=== PATIENT | female | born 1950 | race Caucasian/White ===

== ENCOUNTER → 2017-03-16 | Outpatient (CLI) | payer MEDICARE ==
--- NOTE | 2017-03-16 10:30 | BD ---
EXAMINATION TYPE: MG DEXA axial skeleton. DATE OF EXAM: 03/16/2017 CLINICAL HISTORY: Postmenopausal female, Z 78.0 Height: 63 Weight: 213 FRAX RISK QUESTIONS: Alcohol (3 or more units per day): no Family History (Parent hip fracture): no Glucocorticoids (More than 3mos): yes (Ex: prednisone, prednisolone, methylprednisolone, dexamethasone, and hydrocortisone). History of Fracture in Adulthood: November 2015 Secondary Osteoporosis: 1. Type 1 Diabetes: no, Type 2 2. Hyperthyroidism: no 3. Menopause before 45: total hysterectomy age 44 4. Malnutrition: no 5. Chronic liver disease: no Rheumatoid Arthritis: no Current Tobacco Use: no RISK FACTORS HISTORY OF: Family History of Osteoporosis: none known Active: yes Diet low in dairy products/other sources of calcium: at least one serving a day Postmenopausal woman: yes Take estrogen and/or progesterone medications: not now How long: age 22 hormonal contraceptives about 6 months Lost more than 2 inches in height since high school: no Frequent falls: yes Poor Health: unsure Hyperparathyroidism: no Adrenal Insufficiency: unsure MEDICATIONS: Prednisone or other steroids: yes How Long: about 4 years Thyroid Medications: yes Which medication: Synthroid How Long: since about age [age] Osteoporosis Medications: no Additional Medications: insulin pump; Ventolin inhaler, Symbicort, Losartan Additional History: right hip pain, type 2 diabetes, hypothyroid, kidney function at 46% Lumbar bulging discs, sciatica, open heart & triple bypass 2012 EXAM MEASUREMENTS: Bone mineral densitometry was performed using the [employer]. Bone mineral density as measured about the Lumbar spine is: ----- L1-L4(G/cm2): 1.470 T Score Values are as follows: ----- L2: 2.0 ----- L3: 2.5 ----- L4: 2.9 ----- L1-L4: 2.4 Bone mineral density not previously done at this facility; previously done at a physician office Bone mineral density about the R hip (g/cm2): 1.167 Bone mineral density about the L hip (g/cm2): 1.166 T Score values are as follows: -----R Neck: 0.9 -----L Neck: 0.9 -----R Total: 1.7 -----L Total: 2.0 Bone mineral density not previously done at this facility; previously done at a physician office IMPRESSION: Normal bone density NOTE: T-SCORE=SD OF THE YOUNG ADULT MEAN.
--- NOTE | 2017-03-17 09:54 | MM ---
Reason for exam: screening (asymptomatic). Last mammogram was performed 1 year and 2 months ago. History: Patient is postmenopausal. Family history of breast cancer in 2 maternal cousins. Took hormonal contraceptives for 6 months beginning at age 22. Physical Findings: A clinical breast exam by your physician is recommended on an annual basis and results should be correlated with mammographic findings. MG 3D Screening Mammo W/Cad Bilateral CC and MLO view(s) were taken. Prior study comparison: January 23, 2016, bilateral MG 3d screening mammo w/cad. March 06, 2013, bilateral digital screening mammo w/CAD. There are scattered fibroglandular densities. No significant changes when compared with prior studies. ASSESSMENT: Benign, BI-RAD 2 RECOMMENDATION: Routine screening mammogram of both breasts in 1 year.
== END | disposition home or self-care (01) ==
LOC: RADMAMWWP 07:35
PROVIDERS: ATTEND Family Medicine
DX: Z12.31 Encounter for screening mammogram for malignant neoplasm of breast (principal); M89.9 Disorder of bone, unspecified; Z78.0 Asymptomatic menopausal state
CPT/HCPCS: 77080; 77063; G0202

== ENCOUNTER 2017-03-30 07:25 | Day surgery (SDC) | payer MEDICARE ==
[2017-03-29 11:32] VITALS: BMI 37.5
[~2017-03-30 07:25] MED LIST: LACTATED RINGERS 1,000 ML IV SCH; LIDOCAINE 1% 20 ML VIAL (10MG/ML) FOR IV START INTRADERMA PRN
[2017-03-30 08:13] VITALS: RESP 16; TEMP 98.1
[2017-03-30] MEDS ORDERED: LIDOCAINE 1% 20 ML VIAL (10MG/ML) FOR IV START INTRADERMA ONE (08:46)
[2017-03-30 08:48] LABS: Glucose,Whole Blood 113 mg/dL (75-99)
[2017-03-30] MEDS ORDERED: GLUCAGON 1 MG/ML VIAL ONE (08:48)
[2017-03-30] MEDS ORDERED: PROPOFOL 10 MG/ML 20 ML VIAL IV ONE (08:48)
--- NOTE | 2017-03-30 09:22 | P.OP ---
Date of Procedure: 03/30/17 Preoperative Diagnosis: Abdominal pain Postoperative Diagnosis: Same Procedure(s) Performed: Colonoscopy Anesthesia: MAC Surgeon: Rosetta Krishna Estimated Blood Loss (ml): 0 IV fluids (ml): 300 Pathology: none sent Condition: stable Disposition: PACU Indications for Procedure: Abdominal pain Operative Findings: Normal colonoscopy Description of Procedure: Patient was taken to the endoscopy suite and following sedation rectal exam was performed. Patient was noted to have good sphincter tone no masses. Colonoscope was passed through the anus into the rectum. Was passed through the sigmoid colon up to the splenic flexure and into the transverse colon. At approximately 1 mm the scope was noted to be unresponsive to manipulation angulation, indicating that an internal cable was defective. Therefore the scope was withdrawn and the procedure was instituted. A second colonoscope was brought and the scope was introduced through the anus into the rectum. Was advanced through the sigmoid colon up to the splenic flexure transverse colon hepatic flexure right colon down to the area of the cecum. Proximally 6 minutes were taken to withdraw the scope. Circumdential observation mucosa did not reveal any lesions of concern in the cecum or right colon. No lesions of concern were noted in the the transverse colon. No lesions of concern in the left colon or sigmoid colon. Scope was brought down to the rectum where it was retroflexed and small internal hemorrhoidal tissue identified but no lesions of concern. Impression/plan: 1. Normal colonoscopy Plan: 1. Repeat scope 7-10 years 2. Patient is going to undergo an EGD with Dr. Mi
--- NOTE | 2017-03-30 09:24 | P.DS ---
Providers Attending physician: Rosetta Krishna Primary care physician: Renata Burgess Plan - Discharge Summary New Discharge Prescriptions: No Action Budesonide-Formot 160-4.5 Mcg [Symbicort 160-4.5 Mcg Inhaler] 2 puff INHALATION BID PRN PRN Reason: Shortness Of Breath Nitroglycerin Sl Tabs [Nitrostat] 0.4 mg SUBLINGUAL Q5M PRN PRN Reason: Chest Pain Insulin Aspart [NovoLOG] 0 units SQ-PUMP CONTINUOUS metFORMIN HCL [Glucophage] 500 mg PO BID fluvoxaMINE MALEATE [Luvox] 300 mg PO HS busPIRone HCL [Buspar] 15 mg PO HS Losartan [Cozaar] 50 mg PO HS Carvedilol [Coreg] 12.5 mg PO BID Furosemide [Lasix] 20 mg PO DAILY Rosuvastatin Calcium [Crestor] 20 mg PO HS Montelukast [Singulair] 10 mg PO DAILY Ezetimibe [Zetia] 10 mg PO DAILY Aspirin [Adult Low Dose Aspirin EC] 162 mg PO BID Albuterol Inhaler [Ventolin Hfa Inhaler] 2 puff INHALATION Q4-6H PRN PRN Reason: sob buPROPion SR [Wellbutrin Sr] 150 mg PO BID busPIRone HCL 30 mg PO QAM Ergocalciferol [Vitamin D2] 50,000 unit PO PRUITT Levothyroxine Sodium [Synthroid] 175 mcg PO QAM traMADol HCL [Ultram] 100 mg PO TID PRN PRN Reason: Pain Acetaminophen [Tylenol Extra Strength] 1,000 mg PO DIRECTED PRN PRN Reason: Pain Discharge Medication List Aspirin [Adult Low Dose Aspirin EC] 162 mg PO BID 12/27/15 [History] Budesonide-Formot 160-4.5 Mcg [Symbicort 160-4.5 Mcg Inhaler] 2 puff INHALATION BID PRN 12/27/15 [History] Carvedilol [Coreg] 12.5 mg PO BID 12/27/15 [History] Ezetimibe [Zetia] 10 mg PO DAILY 12/27/15 [History] Furosemide [Lasix] 20 mg PO DAILY 12/27/15 [History] Insulin Aspart [NovoLOG] 0 units SQ-PUMP CONTINUOUS 12/27/15 [History] Losartan [Cozaar] 50 mg PO HS 12/27/15 [History] Montelukast [Singulair] 10 mg PO DAILY 12/27/15 [History] Nitroglycerin Sl Tabs [Nitrostat] 0.4 mg SUBLINGUAL Q5M PRN 12/27/15 [History] Rosuvastatin Calcium [Crestor] 20 mg PO HS 12/27/15 [History] busPIRone HCL [Buspar] 15 mg PO HS 12/27/15 [History] fluvoxaMINE MALEATE [Luvox] 300 mg PO HS 12/27/15 [History] metFORMIN HCL [Glucophage] 500 mg PO BID 12/27/15 [History] Acetaminophen [Tylenol Extra Strength] 1,000 mg PO DIRECTED PRN 03/29/17 [ History] Albuterol Inhaler [Ventolin Hfa Inhaler] 2 puff INHALATION Q4-6H PRN 03/29/17 [ History] Ergocalciferol [Vitamin D2] 50,000 unit PO PRUITT 03/29/17 [History] Levothyroxine Sodium [Synthroid] 175 mcg PO QAM 03/29/17 [History] buPROPion SR [Wellbutrin Sr] 150 mg PO BID 03/29/17 [History] busPIRone HCL 30 mg PO QAM 03/29/17 [History] traMADol HCL [Ultram] 100 mg PO TID PRN 03/29/17 [History] Follow up Appointment(s)/Referral(s): Rosetta Krishna MD [STAFF PHYSICIAN] - 1 Week Patient Instructions/Handouts: *[facility] - (Anesthesia) Endoscopy Discharge Instructions, Colonoscopy (DC), Upper Endoscopy (DC) Discharge Disposition: HOME SELF-CARE
[2017-03-30 09:40] VITALS: BP 146/68
[2017-03-30 09:52] LABS: Glucose,Whole Blood 193 mg/dL (75-99)
[2017-03-30 10:00] VITALS: PULSE 56
--- NOTE | 2017-03-30 20:57 | P.PCN ---
Date of Procedure: 03/30/17 Procedure(s) Performed: Procedure: Esophagogastroduodenoscopy and biopsy. Preoperative diagnosis: Abdominal pain. Postoperative diagnosis: 1. Very small sliding hiatal hernia with no obvious esophagitis or complicated reflux disease. 2. Mild antral gastritis. 3. Multiple biopsies obtained from the duodenum, antrum and esophagus. Preparation sedation: Was provided by anesthesia. Brief clinical history: The patient is a 66-year-old female who is scheduled for an upper endoscopy and colonoscopy today for workup of abdominal pain. Dr. Krishna performed colonoscopy earlier. This evaluation is to rule out peptic ulcer disease, complicated reflux disease or other pathology. Procedure: With the patient on her left lateral decubitus position and after informed consent and adequate sedation, I passed a Olympus-GIF 160 video upper endoscope through the cricopharyngeus down the esophagus. GE junction was around 36 cm from the incisors and there was a very small sliding hiatal hernia but no obvious esophagitis or complicated reflux disease. The endoscope was then passed into the stomach which was insufflated with air and inspected in detail including the retroflex view in the cardia. There was minimal mottling and erythema in the antrum but no ulcers or erosions. Pyloric channel, duodenal bulb, post bulbar area and descending duodenum appeared within normal limits. Because of her symptoms, I obtained biopsies from the duodenum, antrum and esophagus then the endoscope was withdrawn. The patient tolerated the procedure well. Plan: The patient was reassured and I discussed with her . Will await biopsy results. She will follow-up with you as planned and would be happy to see in the future if needed.
== END 2017-03-30 10:32 | disposition home or self-care (01) ==
LOC: ORWHC2ENDO 07:25
PROVIDERS: ATTEND Surgery
DX: K29.50 Unspecified chronic gastritis without bleeding (principal); K44.9 Diaphragmatic hernia without obstruction or gangrene; K64.8 Other hemorrhoids; Z79.899 Other long term (current) drug therapy; Z88.3 Allergy status to other anti-infective agents; Z88.2 Allergy status to sulfonamides; I25.2 Old myocardial infarction; I10 Essential (primary) hypertension; E78.5 Hyperlipidemia, unspecified; Z95.810 Presence of automatic (implantable) cardiac defibrillator; I25.10 Atherosclerotic heart disease of native coronary artery without angina pectoris; I47.1 Supraventricular tachycardia; E11.9 Type 2 diabetes mellitus without complications; Z79.4 Long term (current) use of insulin; Z96.41 Presence of insulin pump (external) (internal); Z79.82 Long term (current) use of aspirin; K21.0 Gastro-esophageal reflux disease with esophagitis
CPT/HCPCS: 88305; 88342; 45378; 43239; J1610; J2704

== ENCOUNTER 2018-01-10 14:33 | Inpatient (IN) | payer MEDICARE ==
[2018-01-10 15:09] LABS: Basophils % (A) 0 %; Eosinophils # (A) 0.1 k/uL (0-0.7); Eosinophils % (A) 2 %; HCT 40.8 % (34.0-46.0); HGB 13.9 gm/dL (11.4-16.0); Lymphocytes # (A) 0.6 k/uL (1.0-4.8); Lymphocytes % (A) 10 %; MCH 31.7 pg (25.0-35.0); MCHC 34.2 g/dL (31.0-37.0); MCV 92.8 fL (80.0-100.0); Mean Platelet Volume 7.4; Monocytes # (A) 0.2 k/uL (0-1.0); Monocytes % (A) 3 %; Neutrophils % (A) 84 %; Platelet Count 109 k/uL (150-450); RBC 4.39 m/uL (3.80-5.40); RDW 14.2 % (11.5-15.5); WBC 5.9 k/uL (3.8-10.6)
[2018-01-10 15:18] LABS: Albumin 3.7 g/dL (3.5-5.0); Calcium 9.5 mg/dL (8.4-10.2); Potassium 4.5 mmol/L (3.5-5.1); Total Bilirubin 1.1 mg/dL (0.2-1.3); Total Protein 6.5 g/dL (6.3-8.2)
--- NOTE | 2018-01-10 15:36 | ED ---
General Adult HPI - General Chief complaint: Nausea/Vomiting/Diarrhea Stated complaint: chest pain/vomiting/weakness Time Seen by Provider: 01/10/18 15:21 Source: patient, RN notes reviewed, old records reviewed Mode of arrival: wheelchair Limitations: no limitations - History of Present Illness Initial comments: 67-year-old female presenting for evaluation of nausea vomiting, generalized weakness, and intermittent chest pain for the past 2 weeks. Patient was sent by her primary care physician for evaluation. She does have a significant history of coronary artery disease including triple bypass and stenting. She states her pain is been intermittent over the past several weeks including bilateral shoulder pain. Patient initially had cough and dyspnea, was treated for upper respiratory tract infection by her primary care physician. The symptoms did improve with treatment, she then developed nausea vomiting, generalized weakness. Vomiting has been over the past 3 days. No significant chest pain at the time my evaluation. Just nausea and vomiting. - Related Data Home Medications Medication Instructions Recorded Confirmed Aspirin [Adult Low Dose Aspirin EC] 162 mg PO BID 12/27/15 01/10/18 Budesonide-Formot 160-4.5 Mcg 2 puff INHALATION BID PRN 12/27/15 01/10/18 [Symbicort 160-4.5 Mcg Inhaler] Carvedilol [Coreg] 12.5 mg PO BID 12/27/15 01/10/18 Ezetimibe [Zetia] 10 mg PO DAILY 12/27/15 01/10/18 Furosemide [Lasix] 20 mg PO DAILY 12/27/15 01/10/18 Insulin Aspart [NovoLOG] 0 units SQ-PUMP CONTINUOUS 12/27/15 01/10/18 Losartan [Cozaar] 50 mg PO HS 12/27/15 01/10/18 Montelukast [Singulair] 10 mg PO DAILY 12/27/15 01/10/18 Nitroglycerin Sl Tabs [Nitrostat] 0.4 mg SUBLINGUAL Q5M PRN 12/27/15 01/10/18 Rosuvastatin Calcium [Crestor] 20 mg PO HS 12/27/15 01/10/18 busPIRone HCL [Buspar] 15 mg PO HS 12/27/15 01/10/18 fluvoxaMINE MALEATE [Luvox] 300 mg PO HS 12/27/15 01/10/18 metFORMIN HCL [Glucophage] 500 mg PO BID 12/27/15 01/10/18 Acetaminophen [Tylenol Extra 1,000 mg PO DIRECTED PRN 03/29/17 01/10/18 Strength] Albuterol Inhaler [Ventolin Hfa 2 puff INHALATION Q4-6H PRN 03/29/17 01/10/18 Inhaler] Ergocalciferol [Vitamin D2] 50,000 unit PO PRUITT 03/29/17 01/10/18 Levothyroxine Sodium [Synthroid] 175 mcg PO QAM 03/29/17 01/10/18 buPROPion SR [Wellbutrin Sr] 150 mg PO BID 03/29/17 01/10/18 busPIRone HCL 30 mg PO QAM 03/29/17 01/10/18 traMADol HCL [Ultram] 100 mg PO TID PRN 03/29/17 01/10/18 Allergies Allergy/AdvReac Type Severity Reaction Status Date / Time metronidazole [From Flagyl] Allergy Rash/Hives Verified 01/10/18 15:56 Review of Systems ROS Statement: Those systems with pertinent positive or pertinent negative responses have been documented in the HPI. ROS Other: All systems not noted in ROS Statement are negative. Past Medical History Past Medical History: Asthma, Blood Disorder, Coronary Artery Disease (CAD), Chest Pain / Angina, Diabetes Mellitus, Hyperlipidemia, Hypertension, Myocardial Infarction (SC), Osteoarthritis (OA), Skin Disorder, Supraventricular Tachycardia (SVT), Thyroid Disorder Additional Past Medical History / Comment(s): USES INSULIN PUMP, VITILIGO-ON FACE, ANEMIA,STATES SOME DIZZINESS OFF & ON, HERNIATED DISCS L1, L4-L5, PINCHED SCIATIC NERVE, OSTEOPENIA, occ diarrhea/severe cramping/bloating/nausea , high liver enzymes, decreased kidney function, cold sore, Last Myocardial Infarction Date:: 2008 History of Any Multi-Drug Resistant Organisms: None Reported Past Surgical History: AICD, Cardiac Ablation, Cholecystectomy, Coronary Bypass/ CABG, Heart Catheterization, Heart Catheterization With Stent, Hysterectomy, Pacemaker, Tonsillectomy Additional Past Surgical History / Comment(s): TRIPLE BYPASS 2012, EXC. CATARACTS WITH LENS IMPLANTS, DEFIBRILLATOR/PACEMAKER ST.ESME, 2 cardiac stents Past Anesthesia/Blood Transfusion Reactions: Previous Problems w/ Anesthesia Additional Past Anesthesia/Blood Transfusion Reaction / Comment(s): nausea from iron infusions Date of Last Stent Placement:: 2008 Type of Cardiac Device: Permanent Pacemaker, AICD Device Placement Date:: 2011 Past Psychological History: Depression Smoking Status: Never smoker Past Alcohol Use History: None Reported Past Drug Use History: None Reported - Past Family History Mother Family Medical History: Thyroid Disorder Additional Family Medical History / Comment(s): HEART DISEASE, Father Family Medical History: Diabetes Mellitus Additional Family Medical History / Comment(s): HEART DISEASE Sister(s) Family Medical History: Cancer Additional Family Medical History / Comment(s): . General Exam Limitations: no limitations General appearance: alert, in no apparent distress Head exam: Present: atraumatic, normocephalic Eye exam: Present: normal appearance, PERRL ENT exam: Present: mucous membranes dry Neck exam: Present: normal inspection. Absent: tenderness, meningismus Respiratory exam: Present: normal lung sounds bilaterally. Absent: respiratory distress, wheezes Cardiovascular Exam: Present: regular rate, normal rhythm GI/Abdominal exam: Present: soft. Absent: distended, tenderness, guarding Extremities exam: Present: normal inspection, full ROM, normal capillary refill. Absent: pedal edema, calf tenderness Back exam: Present: normal inspection, full ROM Neurological exam: Present: alert, oriented X3, CN II-XII intact. Absent: motor sensory deficit Psychiatric exam: Present: normal affect, normal mood Skin exam: Present: warm, dry, intact. Absent: cyanosis, diaphoretic Course Vital Signs 01/10/18 01/10/18 01/10/18 14:40 15:29 16:51 Temperature 98.5 F Pulse Rate 92 89 87 Respiratory 18 18 18 Rate Blood Pressure 116/77 140/77 140/77 O2 Sat by Pulse 98 99 95 Oximetry EKG Findings - EKG Comments: EKG Findings:: EKG: Normal sinus rhythm, left axis deviation, slightly widened QRS 1:30, nonspecific intraventricular block, rate of 84, MA interval 156, QTC 430 2T segment elevation or depression. Medical Decision Making - Medical Decision Making 67-year-old female presenting with generalized weakness, nausea vomiting, and intermittent chest pain over the past 2 weeks. Patient's EKG does show some nonspecific changes which are new compared to old EKG in 2013. Laboratory studies are obtained, normal white blood cell count, stable hemoglobin, mild elevation in serum creatinine 1.3, AST ALT and alkaline phosphatase are mildly elevated, patient has had her gallbladder removed, this is nonspecific at this time. Troponin was negative which is reassuring as her symptoms have been present for the past several weeks. Urinalysis does show cloudy urine with greater than 182 white blood cells consistent with UTI, culture is pending. Chest x-ray and KUB are unremarkable. Patient's symptoms likely attributed to urinary tract infection. She will be admitted for IV antibiotics, given her chest pain serial cardiac enzymes will be obtained and the patient will be evaluated by cardiology. Case discussed with Dr. Burgess, will accept admission - Lab Data Result diagrams: 01/10/18 14:54 01/10/18 14:54 Lab Results 01/10/18 01/10/18 01/10/18 Range/Units 14:54 14:54 14:54 WBC 5.9 (3.8-10.6) k/uL RBC 4.39 (3.80-5.40) m/uL Hgb 13.9 (11.4-16.0) gm/dL Hct 40.8 (34.0-46.0) % MCV 92.8 (80.0-100.0) fL MCH 31.7 (25.0-35.0) pg MCHC 34.2 (31.0-37.0) g/dL RDW 14.2 (11.5-15.5) % Plt Count 109 L (150-450) k/uL Neutrophils % 84 % Lymphocytes % 10 % Monocytes % 3 % Eosinophils % 2 % Basophils % 0 % Neutrophils # 5.0 (1.3-7.7) k/uL Lymphocytes # 0.6 L (1.0-4.8) k/uL Monocytes # 0.2 (0-1.0) k/uL Eosinophils # 0.1 (0-0.7) k/uL Basophils # 0.0 (0-0.2) k/uL PT 10.1 (9.0-12.0) sec INR 1.0 (<1.2) APTT 19.6 L (22.0-30.0) sec Sodium 137 (137-145) mmol/L Potassium 4.5 (3.5-5.1) mmol/L Chloride 99 (98-107) mmol/L Carbon Dioxide 23 (22-30) mmol/L Anion Gap 15 mmol/L BUN 18 H (7-17) mg/dL Creatinine 1.10 H (0.52-1.04) mg/dL Est GFR (CKD-EPI)AfAm 61 (>60 ml/min/1.73 sqM) Est GFR (CKD-EPI)NonAf 53 (>60 ml/min/1.73 sqM) Glucose 146 H (74-99) mg/dL Plasma Lactic Acid Mikael (0.7-2.0) mmol/L Calcium 9.5 (8.4-10.2) mg/dL Magnesium (1.6-2.3) mg/dL Total Bilirubin 1.1 (0.2-1.3) mg/dL AST 64 H (14-36) U/L ALT 83 H (9-52) U/L Alkaline Phosphatase 139 H (38-126) U/L Troponin I (0.000-0.034) ng/mL Total Protein 6.5 (6.3-8.2) g/dL Albumin 3.7 (3.5-5.0) g/dL Amylase 64 (30-110) U/L Lipase 32 (23-300) U/L Urine Color Urine Appearance (Clear) Urine pH (5.0-8.0) Ur Specific [place] (1.001-1.035) Urine Protein (Negative) Urine Glucose (UA) (Negative) Urine Ketones (Negative) Urine Blood (Negative) Urine Nitrite (Negative) Urine Bilirubin (Negative) Urine Urobilinogen (<2.0) mg/dL Ur Leukocyte Esterase (Negative) Urine RBC (0-5) /hpf Urine WBC (0-5) /hpf Urine WBC Clumps (None) /hpf Ur Squamous Epith Cells (0-4) /hpf Urine Bacteria (None) /hpf 01/10/18 01/10/18 01/10/18 Range/Units 14:54 14:54 15:27 WBC (3.8-10.6) k/uL RBC (3.80-5.40) m/uL Hgb (11.4-16.0) gm/dL Hct (34.0-46.0) % MCV (80.0-100.0) fL MCH (25.0-35.0) pg MCHC (31.0-37.0) g/dL RDW (11.5-15.5) % Plt Count (150-450) k/uL Neutrophils % % Lymphocytes % % Monocytes % % Eosinophils % % Basophils % % Neutrophils # (1.3-7.7) k/uL Lymphocytes # (1.0-4.8) k/uL Monocytes # (0-1.0) k/uL Eosinophils # (0-0.7) k/uL Basophils # (0-0.2) k/uL PT (9.0-12.0) sec INR (<1.2) APTT (22.0-30.0) sec Sodium (137-145) mmol/L Potassium (3.5-5.1) mmol/L Chloride (98-107) mmol/L Carbon Dioxide (22-30) mmol/L Anion Gap mmol/L BUN (7-17) mg/dL Creatinine (0.52-1.04) mg/dL Est GFR (CKD-EPI)AfAm (>60 ml/min/1.73 sqM) Est GFR (CKD-EPI)NonAf (>60 ml/min/1.73 sqM) Glucose (74-99) mg/dL Plasma Lactic Acid Mikael (0.7-2.0) mmol/L Calcium (8.4-10.2) mg/dL Magnesium 1.7 (1.6-2.3) mg/dL Total Bilirubin (0.2-1.3) mg/dL AST (14-36) U/L ALT (9-52) U/L Alkaline Phosphatase (38-126) U/L Troponin I <0.012 (0.000-0.034) ng/mL Total Protein (6.3-8.2) g/dL Albumin (3.5-5.0) g/dL Amylase (30-110) U/L Lipase (23-300) U/L Urine Color Yellow Urine Appearance Cloudy H (Clear) Urine pH 6.5 (5.0-8.0) Ur Specific [place] 1.013 (1.001-1.035) Urine Protein 2+ H (Negative) Urine Glucose (UA) Negative (Negative) Urine Ketones Negative (Negative) Urine Blood Small H (Negative) Urine Nitrite Negative (Negative) Urine Bilirubin Negative (Negative) Urine Urobilinogen 3.0 (<2.0) mg/dL Ur Leukocyte Esterase Large H (Negative) Urine RBC 2 (0-5) /hpf Urine WBC >182 H (0-5) /hpf Urine WBC Clumps Few H (None) /hpf Ur Squamous Epith Cells 2 (0-4) /hpf Urine Bacteria Many H (None) /hpf 01/10/18 Range/Units 16:02 WBC (3.8-10.6) k/uL RBC (3.80-5.40) m/uL Hgb (11.4-16.0) gm/dL Hct (34.0-46.0) % MCV (80.0-100.0) fL MCH (25.0-35.0) pg MCHC (31.0-37.0) g/dL RDW (11.5-15.5) % Plt Count (150-450) k/uL Neutrophils % % Lymphocytes % % Monocytes % % Eosinophils % % Basophils % % Neutrophils # (1.3-7.7) k/uL Lymphocytes # (1.0-4.8) k/uL Monocytes # (0-1.0) k/uL Eosinophils # (0-0.7) k/uL Basophils # (0-0.2) k/uL PT (9.0-12.0) sec INR (<1.2) APTT (22.0-30.0) sec Sodium (137-145) mmol/L Potassium (3.5-5.1) mmol/L Chloride (98-107) mmol/L Carbon Dioxide (22-30) mmol/L Anion Gap mmol/L BUN (7-17) mg/dL Creatinine (0.52-1.04) mg/dL Est GFR (CKD-EPI)AfAm (>60 ml/min/1.73 sqM) Est GFR (CKD-EPI)NonAf (>60 ml/min/1.73 sqM) Glucose (74-99) mg/dL Plasma Lactic Acid Mikael 1.4 (0.7-2.0) mmol/L Calcium (8.4-10.2) mg/dL Magnesium (1.6-2.3) mg/dL Total Bilirubin (0.2-1.3) mg/dL AST (14-36) U/L ALT (9-52) U/L Alkaline Phosphatase (38-126) U/L Troponin I (0.000-0.034) ng/mL Total Protein (6.3-8.2) g/dL Albumin (3.5-5.0) g/dL Amylase (30-110) U/L Lipase (23-300) U/L Urine Color Urine Appearance (Clear) Urine pH (5.0-8.0) Ur Specific [place] (1.001-1.035) Urine Protein (Negative) Urine Glucose (UA) (Negative) Urine Ketones (Negative) Urine Blood (Negative) Urine Nitrite (Negative) Urine Bilirubin (Negative) Urine Urobilinogen (<2.0) mg/dL Ur Leukocyte Esterase (Negative) Urine RBC (0-5) /hpf Urine WBC (0-5) /hpf Urine WBC Clumps (None) /hpf Ur Squamous Epith Cells (0-4) /hpf Urine Bacteria (None) /hpf Disposition Clinical Impression: Dehydration, Chest pain, UTI (urinary tract infection) Disposition: ADMITTED IP TO THIS [facility] Condition: Stable Is patient prescribed a controlled substance at d/c from ED?: No Referrals: Renata Burgess MD [Primary Care Provider] - 1-2 days Time of Disposition: 17:54
[2018-01-10 15:43] LABS: Appearance,Urine Cloudy (Clear); Bacteria,Urine Many /hpf; Bilirubin,Urine Negative (Negative); Blood,Urine Small (Negative); Color,Urine Yellow; Glucose,Urine (UA) Negative (Negative); Ketones,Urine Negative (Negative); Leukocyte Esterase,Urine Large (Negative); Nitrite,Urine Negative (Negative); PH, Urine 6.5 (5.0-8.0); Protein,Urine 2+ (Negative); RBC,Urine 2 /hpf (0-5); Specific Gravity,Urine 1.013 (1.001-1.035); Squamous Epithelial Cell,Urine 2 /hpf (0-4); WBC,Urine >182 /hpf (0-5)
[2018-01-10] MEDS ORDERED: ONDANSETRON 4 MG/2 ML VIAL IVP STA (16:05)
[2018-01-10 16:12] LABS: Prothrombin Time 10.1 sec (9.0-12.0)
[2018-01-10 16:20] LABS: Partial Thromboplastin Time 19.6 sec (22.0-30.0)
[2018-01-10] MEDS ORDERED: cefTRIAXone IN SWFI 1,000 MG/10 ML SYRINGE IVP STA (16:23)
[2018-01-10] MEDS ORDERED: SODIUM CHLORIDE 0.9% 500 ML IV ONE (17:36)
--- NOTE | 2018-01-10 17:38 | XR ---
EXAMINATION TYPE: XR chest 2V DATE OF EXAM: 01/10/2018 COMPARISON: October 11, 2012 HISTORY: Chest tightness TECHNIQUE: Frontal and lateral views of the chest are obtained. FINDINGS: Heart and mediastinum have normal size. Lungs are clear. There is no heart failure. There is left axillary pacemaker with the lead tip in the right ventricle. There is no sign of pleural effu dave. Bony thorax is intact. IMPRESSION: No active cardiopulmonary disease. There is clearing of right lower lobe infiltrate comp ared to old exam.
--- NOTE | 2018-01-10 17:39 | XR ---
EXAMINATION TYPE: XR KUB DATE OF EXAM: 01/10/2018 COMPARISON: NONE HISTORY: Vomiting TECHNIQUE: 2 views upright FINDINGS: There is no sign of intestinal obstruction or pneumoperitoneum. Fecal pattern is normal. Th ere are clips from cholecystectomy. Lung bases are clear. IMPRESSION: Nonacute abdomen.
[2018-01-10] MEDS ORDERED: NALOXONE 0.4 MG/ML 1 ML VIAL IV PRN (17:50)
[2018-01-10] MEDS ORDERED: ACETAMINOPHEN TAB 325 MG TAB PO PRN (17:50)
[2018-01-10] MEDS ORDERED: ONDANSETRON 4 MG/2 ML VIAL IVP PRN (17:50)
[2018-01-10] MEDS ORDERED: traMADol 50 MG TAB PO PRN (17:51)
[2018-01-10] MEDS ORDERED: NITROGLYCERIN SL TABS 0.4 MG TAB SUBLINGUAL PRN (17:51)
[2018-01-10] MEDS: SODIUM CHLORIDE 0.9% 1,000 ML IV SCH ×2 (19:18→19:28)
[2018-01-10] MEDS ORDERED: ALBUTEROL NEBULIZED 2.5 MG/3 ML INHALATION PRN (21:35)
[2018-01-10] MEDS ORDERED: ACETAMINOPHEN TAB 500 MG TAB PO PRN (21:35)
[2018-01-10 21:37] LABS: Glucose,Whole Blood 241 mg/dL (75-99)
[2018-01-10 21:39] LABS: Creatine Kinase 40 U/L (30-135)
[2018-01-10 21:51] LABS: Creatine Kinase MB 0.6 ng/mL (0.0-2.4); Troponin I <0.012 ng/mL (0.000-0.034)
[2018-01-10] MEDS ORDERED: BACLOFEN 10 MG TAB PO SCH (22:00)
[2018-01-10] MEDS: buPROPion SR 150 MG TABLET.ER PO SCH (22:08)
[2018-01-10] MEDS: metFORMIN 500 MG TAB PO SCH (22:08)
[2018-01-10] MEDS: ASPIRIN 81 MG PO SCH (22:08)
[2018-01-10] MEDS: LOSARTAN 50 MG TAB PO SCH (22:08)
[2018-01-10] MEDS: EZETIMIBE 10 MG TAB PO SCH (22:08)
[2018-01-10] MEDS: CARVEDILOL 12.5 MG TAB PO SCH (22:08)
[2018-01-10] MEDS ORDERED: BACLOFEN 10 MG TAB PO PRN (22:32)
[2018-01-10] MEDS: ATORVASTATIN 40 MG TAB PO SCH (22:54)
[2018-01-10] MEDS: busPIRone HCl 5 MG TAB PO SCH (22:54)
[2018-01-11 04:03] LABS: Creatine Kinase 37 U/L (30-135)
[2018-01-11 04:18] LABS: Creatine Kinase MB 0.7 ng/mL (0.0-2.4); Troponin I <0.012 ng/mL (0.000-0.034)
[2018-01-11] MEDS: LEVOTHYROXINE 100 MCG TAB PO SCH (04:43)
[2018-01-11] MEDS: LEVOTHYROXINE 75 MCG TAB PO SCH (04:43)
[2018-01-11 07:05] LABS: Glucose,Whole Blood 66 mg/dL (75-99)
[2018-01-11 07:37] LABS: Glucose,Whole Blood 68 mg/dL (75-99)
[2018-01-11 07:40] LABS: Glucose,Whole Blood 94 mg/dL (75-99)
[2018-01-11] MEDS: SYMBICORT 160-4.5 MCG INHALER INHALATION SCH ×2 (08:25→22:15)
[2018-01-11] MEDS ORDERED: EZETIMIBE 10 MG TAB PO SCH (09:00)
[2018-01-11] MEDS ORDERED: REGADENOSON 0.4 MG/5 ML SYRINGE IV ONE (09:10)
[2018-01-11] MEDS ORDERED: AMINOPHYLLINE 500 MG/20 ML VIAL IV PRN (09:10)
--- NOTE | 2018-01-11 09:17 | P.CRDCN ---
History of Present Illness Consult date: 01/11/18 History of present illness: This is a 67-year-old female with history of ischemic heart disease and previous bypass surgery who is being followed by Dr. VC Jackson. Patient also had episodes of SVT. She had also has a ACD implantation. She was seen by Dr. VC Jackson about a week ago. She claims that she has been having some shortness of breath and cold-like symptoms and cough. She started having some chest discomfort and also pain in between shoulder areas. She claimed that the pain in the back reminded her the pain she had before the heart attack. He is also complaining of some shortness of breath. Her EKGs did not reveal any acute changes. Cardiac enzymes are negative. We will proceed with a Lexiscan stress test and echocardiogram. Further recommendations will depend upon the findings on the above tests Review of Systems As per the chart Past Medical History Past Medical History: Asthma, Blood Disorder, Coronary Artery Disease (CAD), Chest Pain / Angina, Diabetes Mellitus, Hyperlipidemia, Hypertension, Myocardial Infarction (AL), Osteoarthritis (OA), Skin Disorder, Supraventricular Tachycardia (SVT), Thyroid Disorder Additional Past Medical History / Comment(s): USES INSULIN PUMP, VITILIGO-ON FACE, ANEMIA,STATES SOME DIZZINESS OFF & ON, HERNIATED DISCS L1, L4-L5, PINCHED SCIATIC NERVE, OSTEOPENIA, occ diarrhea/severe cramping/bloating/nausea , high liver enzymes, decreased kidney function, cold sore, Last Myocardial Infarction Date:: 2008 History of Any Multi-Drug Resistant Organisms: None Reported Past Surgical History: AICD, Cardiac Ablation, Cholecystectomy, Coronary Bypass/ CABG, Heart Catheterization, Heart Catheterization With Stent, Hysterectomy, Pacemaker, Tonsillectomy Additional Past Surgical History / Comment(s): TRIPLE BYPASS 2012, EXC. CATARACTS WITH LENS IMPLANTS, DEFIBRILLATOR/PACEMAKER ST.ESME, 2 cardiac stents Past Anesthesia/Blood Transfusion Reactions: Previous Problems w/ Anesthesia Additional Past Anesthesia/Blood Transfusion Reaction / Comment(s): nausea from iron infusions Date of Last Stent Placement:: 2008 Type of Cardiac Device: Permanent Pacemaker, AICD Device Placement Date:: 2011 Past Psychological History: Depression Smoking Status: Never smoker Past Alcohol Use History: None Reported Past Drug Use History: None Reported - Past Family History Mother Family Medical History: Thyroid Disorder Additional Family Medical History / Comment(s): HEART DISEASE, Father Family Medical History: Diabetes Mellitus Additional Family Medical History / Comment(s): HEART DISEASE Sister(s) Family Medical History: Cancer Additional Family Medical History / Comment(s): . Medications and Allergies Home Medications Medication Instructions Recorded Confirmed Type Aspirin [Adult Low Dose Aspirin EC] 162 mg PO BID 12/27/15 01/10/18 History Budesonide-Formot 160-4.5 Mcg 2 puff INHALATION BID PRN 12/27/15 01/10/18 History [Symbicort 160-4.5 Mcg Inhaler] Carvedilol [Coreg] 12.5 mg PO BID 12/27/15 01/10/18 History Ezetimibe [Zetia] 10 mg PO DAILY 12/27/15 01/10/18 History Furosemide [Lasix] 20 mg PO DAILY 12/27/15 01/10/18 History Insulin Aspart [NovoLOG] 0 units SQ-PUMP CONTINUOUS 12/27/15 01/10/18 History Losartan [Cozaar] 50 mg PO HS 12/27/15 01/10/18 History Montelukast [Singulair] 10 mg PO DAILY 12/27/15 01/10/18 History Nitroglycerin Sl Tabs [Nitrostat] 0.4 mg SUBLINGUAL Q5M PRN 12/27/15 01/10/18 History Rosuvastatin Calcium [Crestor] 20 mg PO HS 12/27/15 01/10/18 History busPIRone HCL [Buspar] 15 mg PO HS 12/27/15 01/10/18 History fluvoxaMINE MALEATE [Luvox] 300 mg PO HS 12/27/15 01/10/18 History metFORMIN HCL [Glucophage] 500 mg PO BID 12/27/15 01/10/18 History Acetaminophen [Tylenol Extra 1,000 mg PO DIRECTED PRN 03/29/17 01/10/18 History Strength] Albuterol Inhaler [Ventolin Hfa 2 puff INHALATION Q4-6H PRN 03/29/17 01/10/18 History Inhaler] Ergocalciferol [Vitamin D2] 50,000 unit PO PRUITT 03/29/17 01/10/18 History Levothyroxine Sodium [Synthroid] 175 mcg PO QAM 03/29/17 01/10/18 History buPROPion SR [Wellbutrin Sr] 150 mg PO BID 03/29/17 01/10/18 History busPIRone HCL 30 mg PO QAM 03/29/17 01/10/18 History traMADol HCL [Ultram] 100 mg PO TID PRN 03/29/17 01/10/18 History Baclofen [Lioresal] 20 mg PO TID 01/10/18 01/10/18 History Allergies Allergy/AdvReac Type Severity Reaction Status Date / Time metronidazole [From Flagyl] Allergy Rash/Hives Verified 01/10/18 20:50 Physical Exam Vitals: Vital Signs Temp Pulse Pulse Resp BP BP Pulse Ox 01/11/18 08:36 60 01/11/18 08:26 64 01/11/18 07:00 98.2 F 56 L 18 110/48 94 L 01/11/18 03:42 98.0 F 54 L 16 108/52 97 01/11/18 03:34 16 01/10/18 23:16 98.8 F 74 16 126/48 93 L 01/10/18 23:08 16 01/10/18 21:03 16 01/10/18 20:01 100.0 F H 83 16 135/73 98 01/10/18 19:17 119/57 01/10/18 19:16 79 18 96 01/10/18 16:51 87 18 140/77 95 01/10/18 15:29 89 18 140/77 99 01/10/18 14:40 98.5 F 92 18 116/77 98 Intake and Output 01/10/18 01/11/18 01/11/18 22:59 06:59 14:59 Intake Total 600 Balance 600 Intake: IV 600 Sodium Chloride 0.9% 1, 600 000 ml @ 75 mls/hr IV . [id number] [facility] Rx#:[id number] Other: Voiding Method Toilet Toilet # Voids 2 Weight 92.8 kg 92.8 kg GENERAL EXAM: Patient is alert and oriented and doesn't appear to be in any acute distress HEENT: Normocephalic. Normal reaction of pupils, equal size, normal range of extraocular motion. No erythema or exudates in the throat. NECK: No masses, no nuchal rigidity. CHEST: No chest wall deformity. LUNGS: Equal air entry with no crackles or wheeze. HEART: S1 and S2 normal with no audible mumurs or gallops. Regular rhythm, femorals equal on both sides.. ABDOMEN: No hepatosplenomegaly, normal bowel sounds, no guarding or rigidity. SKIN: No rashes CENTRAL NERVOUS SYSTEM: No focal deficits. EXTREMITIES: No cyanosis, clubbing or edema. Results 01/10/18 14:54 01/10/18 14:54 Cardiac Enzymes 01/10/18 01/10/18 01/10/18 Range/Units 14:54 14:54 20:50 AST 64 H (14-36) U/L CK-MB (CK-2) 0.6 (0.0-2.4) ng/mL Troponin I <0.012 <0.012 (0.000-0.034) ng/mL 01/11/18 Range/Units 03:12 AST (14-36) U/L CK-MB (CK-2) 0.7 (0.0-2.4) ng/mL Troponin I <0.012 (0.000-0.034) ng/mL Coagulation 01/10/18 Range/Units 14:54 PT 10.1 (9.0-12.0) sec APTT 19.6 L (22.0-30.0) sec CBC 01/10/18 Range/Units 14:54 WBC 5.9 (3.8-10.6) k/uL RBC 4.39 (3.80-5.40) m/uL Hgb 13.9 (11.4-16.0) gm/dL Hct 40.8 (34.0-46.0) % Plt Count 109 L (150-450) k/uL Comprehensive Metabolic Panel 01/10/18 Range/Units 14:54 Sodium 137 (137-145) mmol/L Potassium 4.5 (3.5-5.1) mmol/L Chloride 99 (98-107) mmol/L Carbon Dioxide 23 (22-30) mmol/L BUN 18 H (7-17) mg/dL Creatinine 1.10 H (0.52-1.04) mg/dL Glucose 146 H (74-99) mg/dL Calcium 9.5 (8.4-10.2) mg/dL AST 64 H (14-36) U/L ALT 83 H (9-52) U/L Alkaline Phosphatase 139 H (38-126) U/L Total Protein 6.5 (6.3-8.2) g/dL Albumin 3.7 (3.5-5.0) g/dL Current Medications Generic Name Dose Route Start Last Admin Trade Name Freq PRN Reason Stop Dose Admin Acetaminophen 650 mg 01/10/18 17:50 Tylenol Tab PO Q6HR PRN Mild Pain or Fever > 100.5 Albuterol Sulfate 2.5 mg 01/10/18 21:35 01/11/18 08:25 Ventolin Nebulized INHALATION 2.5 mg RT-Q4H PRN Administration sob Aminophylline 100 mg 01/11/18 09:10 Aminophylline IV ONCE PRN Patient Response Aspirin 162 mg 01/10/18 21:00 01/10/18 22:08 Aspirin PO 162 mg BID ISIDRA Administration Atorvastatin Calcium 40 mg 01/10/18 21:45 01/10/18 22:54 Lipitor PO Not Given HS ISIDRA Baclofen 20 mg 01/10/18 22:32 Lioresal PO TID PRN Muscle Pain Budesonide/Formoterol Fumarate 2 puff 01/11/18 08:00 01/11/18 08:25 Symbicort 160-4.5 Mcg Inhaler INHALATION 2 puff RT-BID ISIDRA Administration Bupropion HCl 150 mg 01/10/18 21:00 01/10/18 22:08 Wellbutrin Sr PO 150 mg BID ISIDRA Administration Buspirone HCl 30 mg 01/11/18 09:00 Buspar PO QAM ISIDRA Buspirone HCl 15 mg 01/10/18 21:45 01/10/18 22:54 Buspar PO 15 mg HS ISIDRA Administration Carvedilol 12.5 mg 01/10/18 18:30 01/10/18 22:08 Coreg PO 12.5 mg AC-BID ISIDRA Administration Ezetimibe 10 mg 01/10/18 21:00 01/10/18 22:08 Zetia PO 10 mg HS ISIDRA Administration Ergocalciferol 50,000 unit 01/16/18 09:00 Vitamin D2 PO PRUITT ISIDRA Fluvoxamine Maleate 300 mg 01/10/18 21:45 01/10/18 22:54 Luvox PO 300 mg HS ISIDRA Administration Furosemide 20 mg 01/11/18 09:00 Lasix PO DAILY ISIDRA Sodium Chloride 1,000 mls @ 75 mls/hr 01/10/18 17:45 01/10/18 19:28 Saline 0.9% IV 75 mls/hr .[id number] ISIDRA Administration Levothyroxine Sodium 100 mcg 01/11/18 06:30 01/11/18 04:43 Synthroid PO 100 mcg 0630 ISIDRA Administration Levothyroxine Sodium 75 mcg 01/11/18 06:30 01/11/18 04:43 Synthroid PO 75 mcg 0630 ISIDRA Administration Losartan Potassium 50 mg 01/10/18 21:00 01/10/18 22:08 Cozaar PO 50 mg HS ISIDRA Administration Metformin HCl 500 mg 01/10/18 21:00 01/10/18 22:08 Glucophage PO 500 mg BID ISIDRA Administration Montelukast Sodium 10 mg 01/11/18 09:00 Singulair PO DAILY ISIDRA Naloxone HCl 0.2 mg 01/10/18 17:50 Narcan IV Q2M PRN Opioid Reversal Nitroglycerin 0.4 mg 01/10/18 17:51 Nitrostat SUBLINGUAL Q5M PRN Chest Pain Ondansetron HCl 4 mg 01/10/18 17:50 Zofran IVP Q8HR PRN Nausea And Vomiting Regadenoson 0.4 mg 01/11/18 09:10 Lexiscan IV 01/11/18 09:11 ONCE ONE Tramadol HCl 100 mg 01/10/18 17:51 Ultram PO TID PRN Moderate Pain Intake and Output 01/10/18 01/11/18 01/11/18 22:59 06:59 14:59 Intake Total 600 Balance 600 Intake: IV 600 Sodium Chloride 0.9% 1, 600 000 ml @ 75 mls/hr IV . [id number] IS[facility]RA Rx#:[id number] Other: Voiding Method Toilet Toilet # Voids 2 Weight 92.8 kg 92.8 kg Patient Weight 01/12/18 06:59 Weight 92.8 kg 01/10/18 14:54 01/10/18 14:54 EKG Interpretations (text) Sinus rhythm with a nonspecific intraventricular conduction delay Assessment and Plan (1) CAD (coronary artery disease) Current Visit: Yes Status: Acute Code(s): I25.10 - ATHSCL HEART DISEASE OF [place] CORONARY ARTERY W/O ANG PCTRS SNOMED Code(s): 56786722 (2) Chest pain Current Visit: Yes Status: Acute Code(s): R07.9 - CHEST PAIN, UNSPECIFIED SNOMED Code(s): 24314811 (3) History of coronary artery bypass graft Current Visit: Yes Status: Acute Code(s): Z95.1 - PRESENCE OF AORTOCORONARY BYPASS GRAFT SNOMED Code(s): 596263331 (4) Cardiac defibrillator in place Current Visit: Yes Status: Acute Code(s): Z95.810 - PRESENCE OF AUTOMATIC ( IMPLANTABLE) CARDIAC DEFIBRILLATOR SNOMED Code(s): 069471809 Plan: Her chest pains appear to be atypical. We'll proceed with Lexiscan stress test and echocardiogram. Further recommendations depend upon the findings on the tests.
--- NOTE | 2018-01-11 11:00 | ECHOF ---
Referral Reason:Chest pain and cardiomyopathy MEASUREMENTS -------- HEIGHT: 160.0 cm WEIGHT: 92.5 kg BP: 110/48 RVIDd: 2.8 cm (< 3.3) IVSd: 1.1 cm (0.6 - 1.1) LVIDd: 6.3 cm (3.9 - 5.3) LVPWd: 1.0 cm (0.6 - 1.1) IVSs: 1.5 cm LVIDs: 4.7 cm LVPWs: 1.4 cm LA Diam: 3.9 cm (2.7 - 3.8) LAESV Index (A-L): 29.27 ml/m Ao Diam: 3.6 cm (2.0 - 3.7) AV Cusp: 2.4 cm (1.5 - 2.6) MV EXCURSION: 11.453 mm (> 18.000) MV EF SLOPE: 18 mm/s (70 - 150) EPSS: 2.2 cm MV E Moses: 0.72 m/s MV DecT: 235 ms MV A Moses: 0.94 m/s MV E/A Ratio: 0.76 FINDINGS -------- AICD This was a technically adequate study. The left ventricle is severely dilated. There is borderline concentric left ventricular hypertrophy . Overall left ventricular systolic function is severely impaired with, an EF between 25 - 30 %. The right ventricle is normal in size. LA is midly dilated 29-33ml/m2. The right atrium is normal in size. The aortic valve was not well visualized. Mild mitral annular calcification present. There is trace to mild mitral regurgitation. The tricuspid valve appears structurally normal. Trace/mild (physiologic) pulmonic regurgitation. The aortic root size is normal. Normal inferior vena cava with normal inspiratory collapse consistent with estimated right atrial pre ssure of 5 mmHg. There is no pericardial effusion. CONCLUSIONS -------- 1. AICD 2. This was a technically adequate study. 3. The left ventricle is severely dilated. 4. There is borderline concentric left ventricular hypertrophy. 5. Overall left ventricular systolic function is severely impaired with, an EF between 25 - 30 %. 6. The right ventricle is normal in size. 7. LA is midly dilated 29-33ml/m2. 8. The right atrium is normal in size. 9. The aortic valve was not well visualized. 10. Mild mitral annular calcification present. 11. There is trace to mild mitral regurgitation. 12. The tricuspid valve appears structurally normal. 13. Trace/mild (physiologic) pulmonic regurgitation. 14. The aortic root size is normal. 15. Normal inferior vena cava with normal inspiratory collapse consistent with estimated right atrial pressure of 5 mmHg. 16. There is no pericardial effusion. [employer] SUPERVISOR: Luisa Meza RDCS
--- NOTE | 2018-01-11 12:03 | EST ---
EXERCISE STRESS DATE OF SERVICE: 01/11/2018 AGE: 67 SEX: Female HT: 63" WT: 204 pounds PROTOCOL: Lexiscan Cardiolite STAGE: DURATION OF EXERCISE: HEART RATE REST: 56 BLOOD PRESSURE REST: 141/72 MAXIMUM HEART RATE ACHIEVED: 89 MAXIMUM BLOOD PRESSURE: 175/67 85% MPHR: 100% MPHR: METS: INDICATIONS: CLINICAL INFORMATION: Baseline EKG revealed normal sinus rhythm with minor nonspecific IVCD with poor R-wave progression over precordial leads. The patient was administered Lexiscan as per protocol. Heart rate changed from 56-89 beats per minute and blood pressure changed from 141/72 to 175/67. Patient did not have any significant symptoms. EKG remained inconclusive. By EKG criteria, this is an inconclusive Lexiscan stress test because of resting EKG changes. The nuclear scan results, which are more pertinent, will be reported by the radiologist. MMODL / IJN: [id number] /
[2018-01-11] MEDS: MONTELUKAST 10 MG TAB PO SCH (12:25)
[2018-01-11] MEDS: metFORMIN 500 MG TAB PO SCH ×2 (12:26→20:18)
[2018-01-11] MEDS: buPROPion SR 150 MG TABLET.ER PO SCH ×2 (12:26→20:16)
[2018-01-11] MEDS: ASPIRIN 81 MG PO SCH ×2 (12:26→20:24)
[2018-01-11] MEDS: FUROSEMIDE 20 MG TAB PO SCH (12:26)
[2018-01-11] MEDS: CARVEDILOL 12.5 MG TAB PO SCH ×2 (12:26→20:21)
[2018-01-11] MEDS: busPIRone HCl 10 MG TAB PO SCH (12:26)
--- NOTE | 2018-01-11 12:26 | NM ---
EXAMINATION TYPE: NM stress lexiscan cardiolite DATE OF EXAM: 01/11/2018 COMPARISON: NONE HISTORY: TECHNIQUE: After the intravenous administration of 10.9 mCi Tc 99m Sestamibi - Cardiolite resting SP ECT images acquired 60 minutes post injection. The patient received 0.4mg Lexiscan, 27.5 mCi Tc 99m Sestamibi - Stress images obtained [address] injection FINDINGS: Review of stress and rest SPECT images demonstrates predominantly fixed defect involving the apical a nd upper septal portion myocardium with a small area of stress-induced reversibility not excluded.. Gated analysis shows normal wall motion with an estimated left ventricular ejection fraction of 48 %. IMPRESSION: Could not exclude a small area of stress-induced reversibility involving the apical septal portion of the myocardium. Correlate clinically..
[2018-01-11 12:30] LABS: Glucose,Whole Blood 141 mg/dL (75-99)
--- NOTE | 2018-01-11 13:12 | US ---
EXAMINATION TYPE: US kidneys/renal and bladder DATE OF EXAM: 01/11/2018 COMPARISON: CT dated 04/30/2016 CLINICAL HISTORY: hydronephrosis/UTI. UTI, Hx of renal cyst EXAM MEASUREMENTS: Right Kidney: 10.1 x 4.5 x 4.6 cm Left Kidney: 9.3 x 3.9 x 5.0 cm Right Kidney: No hydronephrosis or masses seen Left Kidney: upper pole simple cystic appearing lesion = 2.1 x 2.0 x 2.0 cm, unchanged in size Bladder: nondistended, limited visualization Bilateral Jets not seen Cortical medullary differentiation is maintained. No renal stones evident bilaterally, no hydronephro sis. IMPRESSION: Lesion at the upper pole the left kidney likely represents simple cyst although imaging is somewhat l imited. No hydronephrosis bilaterally. Limitations as described.
[2018-01-11 13:13] LABS: Hemoglobin A1C 9.5 % (4.0-6.0)
[2018-01-11 17:48] LABS: Glucose,Whole Blood 216 mg/dL (75-99)
[2018-01-11] MEDS: SODIUM CHLORIDE 0.9% 1,000 ML IV SCH (19:01)
--- NOTE | 2018-01-11 19:57 | P.HPIM ---
History of Present Illness H&P Date: 01/11/18 Chief Complaint: Chest pain nausea vomiting chills dysuria This a pleasant 67-year-old patient well known to my practice. She has underlying history of diabetes mellitus type 2, CK D stage III, hypothyroidism, hypertension admitted through the emergency room as the patient has had some nausea, vomiting, dysuria, and chest discomfort. Agent also has some shaking chills, and often on fever since . She was subsequently seen in the office, and with all her discomfort, she was subsequently sent to emergency room for further evaluation. Patient also has shortness of breath on exertion, no PND, no edema. Consult were made with cardiology, with the chest pain symptoms, cardiac troponins to be obtained, echocardiogram, also noted to have significant urinary tract infection on admission, and was started on IV antibiotics, cultures to be done, as well as renal ultrasound Agent was seen by cardiology, we have seen the patient in the nuclear study room , undergoing Lexiscan stress test, report is currently pending patient remains to be chest pain-free Review of Systems Constitutional: Reports as per HPI, Reports anorexia, Reports chills, Reports fever, Reports malaise, Denies chronic headaches, Denies chronic pain, Denies daytime sleepiness, Denies fatigue, Denies lethargy, Denies night sweats, Denies poor appetite, Denies sweats, Denies weakness, Denies weight gain, Denies weight loss Ears, nose, mouth and throat: Reports as per HPI, Denies ant. neck pain, Denies bleeding gums, Denies dental pain, Denies dysphagia, Denies epistaxis, Denies headache, Denies hoarseness, Denies mouth pain, Denies nasal congestion, Denies nasal discharge, Denies neck fullness/pressure, Denies neck lump, Denies nose pain, Denies odynophagia, Denies post-nasal drip, Denies sinus pain, Denies sinus pressure, Denies swelling in mouth, Denies swelling in throat, Denies sore throat, Denies vertigo, Denies voice changes Cardiovascular: Reports as per HPI, Reports chest pain, Reports dyspnea on exertion, Reports shortness of breath, Denies claudication, Denies decreased exercise tolerance, Denies edema, Denies high blood pressure, Denies irregular heart beat, Denies leg edema, Denies lightheadedness, Denies orthopnea, Denies palpitations, Denies paroxysmal nocturnal dyspnea, Denies phlebitis, Denies rapid heart beat, Denies syncope Respiratory: Reports as per HPI, Denies congestion, Denies cough, Denies cough with sputum, Denies dyspnea, Denies excessive sputum, Denies hemoptysis, Denies home oxygen, Denies pain, Denies pain on inspiration, Denies pleurisy, Denies respiratory infections, Denies sleep apnea, Denies snoring, Denies wheezing Gastrointestinal: Reports as per HPI, Denies abdominal pain, Denies belching, Denies bloating, Denies BRBPR, Denies change in bowel habits, Denies coffee ground emesis, Denies constipation, Denies diarrhea, Denies dyspepsia, Denies early satiety, Denies excessive gas, Denies heartburn, Denies hematemesis, Denies hematochezia, Denies indigestion, Denies jaundice, Denies lactose intolerance, Denies loss of appetite, Denies melena, Denies nausea, Denies vomiting Genitourinary: Reports as per HPI Menstruation: Reports as per HPI, Reports postmenopausal Musculoskeletal: Reports as per HPI Integumentary: Reports as per HPI, Denies acne, Denies boils, Denies brittle nails, Denies change in hair/nails, Denies color changes, Denies darkening of skin, Denies depigmentation, Denies dryness, Denies foot/leg ulcers, Denies growths, Denies hirsutism, Denies lesions, Denies onychomycosis, Denies pruritus , Denies rash, Denies sores, Denies striae, Denies unusual bruising, Denies wounds Neurological: Reports as per HPI, Denies aphasia, Denies ataxia, Denies balance difficulties, Denies burning pain, Denies change in mentation, Denies change in smell/taste, Denies change in speech, Denies confusion, Denies convulsions, Denies double vision, Denies gait dysfunction, Denies head injury, Denies headaches, Denies hearing difficulties, Denies lack of coordination, Denies loss of vision, Denies memory loss, Denies migraines, Denies motor disturbance, Denies numbness, Denies paralysis, Denies paresthesias, Denies seizures, Denies sensory deficit, Denies spasticity, Denies syncope, Denies tic, Denies tingling , Denies transient paralysis, Denies tremors, Denies vertigo, Denies weakness, Denies visual changes Psychiatric: Reports as per HPI Endocrine: Reports as per HPI Hematologic/Lymphatic: Reports as per HPI Allergic/Immunologic: Reports as per HPI Past Medical History Past Medical History: Asthma, Blood Disorder, Coronary Artery Disease (CAD), Chest Pain / Angina, Diabetes Mellitus, Hyperlipidemia, Hypertension, Myocardial Infarction ([place]), Osteoarthritis (OA), Skin Disorder, Supraventricular Tachycardia (SVT), Thyroid Disorder Additional Past Medical History / Comment(s): USES INSULIN PUMP, VITILIGO-ON FACE, ANEMIA,STATES SOME DIZZINESS OFF & ON, HERNIATED DISCS L1, L4-L5, PINCHED SCIATIC NERVE, OSTEOPENIA, occ diarrhea/severe cramping/bloating/nausea , high liver enzymes, decreased kidney function, cold sore, Last Myocardial Infarction Date:: 2008 History of Any Multi-Drug Resistant Organisms: None Reported Past Surgical History: AICD, Cardiac Ablation, Cholecystectomy, Coronary Bypass/ CABG, Heart Catheterization, Heart Catheterization With Stent, Hysterectomy, Pacemaker, Tonsillectomy Additional Past Surgical History / Comment(s): TRIPLE BYPASS 2012, EXC. CATARACTS WITH LENS IMPLANTS, DEFIBRILLATOR/PACEMAKER ST.ESME, 2 cardiac stents Past Anesthesia/Blood Transfusion Reactions: Previous Problems w/ Anesthesia Additional Past Anesthesia/Blood Transfusion Reaction / Comment(s): nausea from iron infusions Date of Last Stent Placement:: 2008 Type of Cardiac Device: Permanent Pacemaker, AICD Device Placement Date:: 2011 Past Psychological History: Depression Smoking Status: Never smoker Past Alcohol Use History: None Reported Past Drug Use History: None Reported - Past Family History Mother Family Medical History: Thyroid Disorder Additional Family Medical History / Comment(s): HEART DISEASE, Father Family Medical History: Diabetes Mellitus Additional Family Medical History / Comment(s): HEART DISEASE Sister(s) Family Medical History: Cancer Additional Family Medical History / Comment(s): . Medications and Allergies Home Medications Medication Instructions Recorded Confirmed Type Aspirin [Adult Low Dose Aspirin EC] 162 mg PO BID 12/27/15 01/10/18 History Budesonide-Formot 160-4.5 Mcg 2 puff INHALATION BID PRN 12/27/15 01/10/18 History [Symbicort 160-4.5 Mcg Inhaler] Carvedilol [Coreg] 12.5 mg PO BID 12/27/15 01/10/18 History Ezetimibe [Zetia] 10 mg PO DAILY 12/27/15 01/10/18 History Furosemide [Lasix] 20 mg PO DAILY 12/27/15 01/10/18 History Insulin Aspart [NovoLOG] 0 units SQ-PUMP CONTINUOUS 12/27/15 01/10/18 History Losartan [Cozaar] 50 mg PO HS 12/27/15 01/10/18 History Montelukast [Singulair] 10 mg PO DAILY 12/27/15 01/10/18 History Nitroglycerin Sl Tabs [Nitrostat] 0.4 mg SUBLINGUAL Q5M PRN 12/27/15 01/10/18 History Rosuvastatin Calcium [Crestor] 20 mg PO HS 12/27/15 01/10/18 History busPIRone HCL [Buspar] 15 mg PO HS 12/27/15 01/10/18 History fluvoxaMINE MALEATE [Luvox] 300 mg PO HS 12/27/15 01/10/18 History metFORMIN HCL [Glucophage] 500 mg PO BID 12/27/15 01/10/18 History Acetaminophen [Tylenol Extra 1,000 mg PO DIRECTED PRN 03/29/17 01/10/18 History Strength] Albuterol Inhaler [Ventolin Hfa 2 puff INHALATION Q4-6H PRN 03/29/17 01/10/18 History Inhaler] Ergocalciferol [Vitamin D2] 50,000 unit PO PRUITT 03/29/17 01/10/18 History Levothyroxine Sodium [Synthroid] 175 mcg PO QAM 03/29/17 01/10/18 History buPROPion SR [Wellbutrin Sr] 150 mg PO BID 03/29/17 01/10/18 History busPIRone HCL 30 mg PO QAM 03/29/17 01/10/18 History traMADol HCL [Ultram] 100 mg PO TID PRN 03/29/17 01/10/18 History Baclofen [Lioresal] 20 mg PO TID 01/10/18 01/10/18 History Allergies Allergy/AdvReac Type Severity Reaction Status Date / Time metronidazole [From Flagyl] Allergy Rash/Hives Verified 01/10/18 20:50 Physical Exam Vitals: Vital Signs Temp Pulse Pulse Resp BP BP Pulse Ox 01/11/18 08:36 60 01/11/18 08:26 64 01/11/18 08:00 18 01/11/18 07:00 98.2 F 56 L 18 110/48 94 L 01/11/18 03:42 98.0 F 54 L 16 108/52 97 01/11/18 03:34 16 01/10/18 23:16 98.8 F 74 16 126/48 93 L 01/10/18 23:08 16 01/10/18 21:03 16 01/10/18 20:01 100.0 F H 83 16 135/73 98 01/10/18 19:17 119/57 01/10/18 19:16 79 18 96 01/10/18 16:51 87 18 140/77 95 01/10/18 15:29 89 18 140/77 99 01/10/18 14:40 98.5 F 92 18 116/77 98 Intake and Output 01/10/18 01/11/18 01/11/18 22:59 06:59 14:59 Intake Total 600 Balance 600 Intake: IV 600 Sodium Chloride 0.9% 1, 600 000 ml @ 75 mls/hr IV . [id number] [facility] Rx#:[id number] Other: Voiding Method Toilet Toilet Toilet # Voids 2 Weight 92.8 kg 92.8 kg - Constitutional General appearance: cooperative, no acute distress - EENT Eyes: anicteric sclerae, EOMI, PERRLA, dentition normal, normal appearance ENT: hearing grossly normal, NA/AT, normal oropharynx - Neck Neck: normal ROM - Respiratory Respiratory: bilateral: CTA, negative: diminished, dullness, rales, rhonchi - Cardiovascular Rhythm: regular Heart sounds: normal: S1, S2 Abnormal Heart Sounds: systolic murmur - Gastrointestinal General gastrointestinal: normal bowel sounds, soft, tenderness (No flank tenderness) - Integumentary Integumentary: decreased turgor, normal - Neurologic Neurologic: CNII-XII intact, focal deficits (None) - Musculoskeletal Musculoskeletal: gait normal, strength equal bilaterally - Psychiatric Psychiatric: A&O x's 3, appropriate affect, intact judgment & insight Results CBC & Chem 7: 01/10/18 14:54 01/10/18 14:54 Labs: Abnormal Lab Results - Last 24 Hours (Table) 01/10/18 01/10/18 01/10/18 Range/Units 14:54 14:54 14:54 Plt Count 109 L (150-450) k/uL Lymphocytes # 0.6 L (1.0-4.8) k/uL APTT 19.6 L (22.0-30.0) sec BUN 18 H (7-17) mg/dL Creatinine 1.10 H (0.52-1.04) mg/dL Glucose 146 H (74-99) mg/dL POC Glucose (mg/dL) (75-99) mg/dL AST 64 H (14-36) U/L ALT 83 H (9-52) U/L Alkaline Phosphatase 139 H (38-126) U/L Urine Appearance (Clear) Urine Protein (Negative) Urine Blood (Negative) Ur Leukocyte Esterase (Negative) Urine WBC (0-5) /hpf Urine WBC Clumps (None) /hpf Urine Bacteria (None) /hpf 01/10/18 01/10/18 01/11/18 Range/Units 15:27 21:35 07:01 Plt Count (150-450) k/uL Lymphocytes # (1.0-4.8) k/uL APTT (22.0-30.0) sec BUN (7-17) mg/dL Creatinine (0.52-1.04) mg/dL Glucose (74-99) mg/dL POC Glucose (mg/dL) 241 H 66 L (75-99) mg/dL AST (14-36) U/L ALT (9-52) U/L Alkaline Phosphatase (38-126) U/L Urine Appearance Cloudy H (Clear) Urine Protein 2+ H (Negative) Urine Blood Small H (Negative) Ur Leukocyte Esterase Large H (Negative) Urine WBC >182 H (0-5) /hpf Urine WBC Clumps Few H (None) /hpf Urine Bacteria Many H (None) /hpf 01/11/18 Range/Units 07:19 Plt Count (150-450) k/uL Lymphocytes # (1.0-4.8) k/uL APTT (22.0-30.0) sec BUN (7-17) mg/dL Creatinine (0.52-1.04) mg/dL Glucose (74-99) mg/dL POC Glucose (mg/dL) 68 L (75-99) mg/dL AST (14-36) U/L ALT (9-52) U/L Alkaline Phosphatase (38-126) U/L Urine Appearance (Clear) Urine Protein (Negative) Urine Blood (Negative) Ur Leukocyte Esterase (Negative) Urine WBC (0-5) /hpf Urine WBC Clumps (None) /hpf Urine Bacteria (None) /hpf Microbiology - Last 24 Hours (Table) 01/10/18 15:27 Urine Culture - Preliminary Urine,Clean Catch Laboratory Results WBC 5.9 k/uL (3.8-10.6) 01/10/18 14:54 RBC 4.39 m/uL (3.80-5.40) 01/10/18 14:54 Hgb 13.9 gm/dL (11.4-16.0) 01/10/18 14:54 Hct 40.8 % (34.0-46.0) 01/10/18 14:54 MCV 92.8 fL (80.0-100.0) 01/10/18 14:54 MCH 31.7 pg (25.0-35.0) 01/10/18 14:54 MCHC 34.2 g/dL (31.0-37.0) 01/10/18 14:54 RDW 14.2 % (11.5-15.5) 01/10/18 14:54 Plt Count 109 k/uL (150-450) L 01/10/18 14:54 Neutrophils % 84 % 01/10/18 14:54 Lymphocytes % 10 % 01/10/18 14:54 Monocytes % 3 % 01/10/18 14:54 Eosinophils % 2 % 01/10/18 14:54 Basophils % 0 % 01/10/18 14:54 Neutrophils # 5.0 k/uL (1.3-7.7) 01/10/18 14:54 Lymphocytes # 0.6 k/uL (1.0-4.8) L 01/10/18 14:54 Monocytes # 0.2 k/uL (0-1.0) 01/10/18 14:54 Eosinophils # 0.1 k/uL (0-0.7) 01/10/18 14:54 Basophils # 0.0 k/uL (0-0.2) 01/10/18 14:54 PT 10.1 sec (9.0-12.0) 01/10/18 14:54 INR 1.0 (<1.2) 01/10/18 14:54 APTT 19.6 sec (22.0-30.0) L 01/10/18 14:54 Sodium 137 mmol/L (137-145) 01/10/18 14:54 Potassium 4.5 mmol/L (3.5-5.1) 01/10/18 14:54 Chloride 99 mmol/L (98-107) 01/10/18 14:54 Carbon Dioxide 23 mmol/L (22-30) 01/10/18 14:54 Anion Gap 15 mmol/L 01/10/18 14:54 BUN 18 mg/dL (7-17) H 01/10/18 14:54 Creatinine 1.10 mg/dL (0.52-1.04) H 01/10/18 14:54 Est GFR (CKD-EPI)AfAm 61 (>60 ml/min/1.73 sqM) 01/10/18 14:54 Est GFR (CKD-EPI)NonAf 53 (>60 ml/min/1.73 sqM) 01/10/18 14:54 Glucose 146 mg/dL (74-99) H 01/10/18 14:54 POC Glucose (mg/dL) 216 mg/dL (75-99) H 01/11/18 17:44 POC Glu Credit Administration Officer ID Nati Licea 01/11/18 17:[address] Glu mg/dL 226 01/10/18 14:54 Hemoglobin A1c 9.5 % (4.0-6.0) H 01/10/18 14:54 Plasma Lactic Acid Mikael 1.4 mmol/L (0.7-2.0) 01/10/18 16:02 Calcium 9.5 mg/dL (8.4-10.2) 01/10/18 14:54 Magnesium 1.7 mg/dL (1.6-2.3) 01/10/18 14:54 Total Bilirubin 1.1 mg/dL (0.2-1.3) 01/10/18 14:54 AST 64 U/L (14-36) H 01/10/18 14:54 ALT 83 U/L (9-52) H 01/10/18 14:54 Alkaline Phosphatase 139 U/L (38-126) H 01/10/18 14:54 Total Creatine Kinase 37 U/L (30-135) 01/11/18 03:12 CK-MB (CK-2) 0.7 ng/mL (0.0-2.4) 01/11/18 03:12 CK-MB (CK-2) Rel Index 1.9 01/11/18 03:12 Troponin I <0.012 ng/mL (0.000-0.034) 01/11/18 03:12 Total Protein 6.5 g/dL (6.3-8.2) 01/10/18 14:54 Albumin 3.7 g/dL (3.5-5.0) 01/10/18 14:54 Amylase 64 U/L (30-110) 01/10/18 14:54 Lipase 32 U/L (23-300) 01/10/18 14:54 Urine Color Yellow 01/10/18 15:27 Urine Appearance Cloudy (Clear) H 01/10/18 15:27 Urine pH 6.5 (5.0-8.0) 01/10/18 15:27 Ur Specific Dalton 1.013 (1.001-1.035) 01/10/18 15:27 Urine Protein 2+ (Negative) H 01/10/18 15:27 Urine Glucose (UA) Negative (Negative) 01/10/18 15:27 Urine Ketones Negative (Negative) 01/10/18 15:27 Urine Blood Small (Negative) H 01/10/18 15:27 Urine Nitrite Negative (Negative) 01/10/18 15:27 Urine Bilirubin Negative (Negative) 01/10/18 15:27 Urine Urobilinogen 3.0 mg/dL (<2.0) 01/10/18 15:27 Ur Leukocyte Esterase Large (Negative) H 01/10/18 15:27 Urine RBC 2 /hpf (0-5) 01/10/18 15:27 Urine WBC >182 /hpf (0-5) H 01/10/18 15:27 Urine WBC Clumps Few /hpf (None) H 01/10/18 15:27 Ur Squamous Epith Cells 2 /hpf (0-4) 01/10/18 15:27 Urine Bacteria Many /hpf (None) H 01/10/18 15:27 Thrombosis Risk Factor Assmnt - DVT/VTE Prophylaxis DVT/VTE Prophylaxis: Pharmacologic Prophylaxis ordered, Mechanical Prophylaxis ordered - Choose All That Apply Any of the Below Risk Factors Present?: Yes Each Factor Represents 1 point: Obesity (BMI >25) Other Risk Factors: Yes Each Risk Factor Represents 2 Points: Age 61-74 years Thrombosis Risk Factor Assessment Total Risk Factor Score: 3 Thrombosis Risk Factor Assessment Level: Moderate Risk Assessment and Plan Plan: 1. Chest pain, she has risk factors for CAD, patient underwent stress test and seen by cardiology, I've given report from Dr. DANK Marc that her ejection fraction is approximately 25%. continue coreg 12.5 bid Crestor 20 mg daily, losartan 50 mg daily, patient might need cardiac cath 2 Systolic cardiomyopathy EF 25%,with AICD im[vandanaation, follws with dr VC [place] on furosemide 25 mg half a tablet twice a day 3. Acute Urinary tract infection, without significant pyelenophritis symptoms, currently on iv rocephime. blood cultures to be done, will need clearance of blood culture prior to any cardiac intervention including cardiac stents, will discuss with cardiology 3 Diabetes with diabetic neuropathy on insulin pump follows by Dr. Ponce endocrinology 4 Hypothyroidism on levothyroxine 175 g daily 5 CK D stage III avoid nephrotoxins, monitor creatinine should any cardiac intervention to be done including cardiac catheter, 6 Hyperlipidemia Crestor 20 mg daily and Zetia 10 mg daily 7 Asthma with recent exacerbation, resolved*30 completed prednisone December 20 with a 15 day taper, no exacerbation at this time, continue on Singulair 10 mg daily, heat when necessary Ventolin 8 Osteoarthritis on tramadol 100 mg 3 times a day when necessary baclofen 10 9 Dysthymia is on Wellbutrin 150 mg twice a day BuSpar 15 mg 2 tab at bedtime and 1 tab a.m., and Luvox 100 mg 3 tabs at bedtime
[2018-01-11] MEDS: ATORVASTATIN 40 MG TAB PO SCH (20:16)
[2018-01-11] MEDS: EZETIMIBE 10 MG TAB PO SCH (20:17)
[2018-01-11] MEDS: busPIRone HCl 5 MG TAB PO SCH (20:17)
[2018-01-11] MEDS: LOSARTAN 50 MG TAB PO SCH (20:17)
[2018-01-11 21:04] LABS: Glucose,Whole Blood 154 mg/dL (75-99)
[2018-01-12 06:11] LABS: Basophils % (A) 1 %; Eosinophils # (A) 0.3 k/uL (0-0.7); Eosinophils % (A) 6 %; HCT 34.1 % (34.0-46.0); HGB 11.1 gm/dL (11.4-16.0); Lymphocytes # (A) 0.8 k/uL (1.0-4.8); Lymphocytes % (A) 18 %; MCH 31.4 pg (25.0-35.0); MCHC 32.7 g/dL (31.0-37.0); Mean Platelet Volume 7.4; Monocytes # (A) 0.2 k/uL (0-1.0); Monocytes % (A) 4 %; Neutrophils # (A) 2.8 k/uL (1.3-7.7); Neutrophils % (A) 68 %; RBC 3.55 m/uL (3.80-5.40); RDW 14.6 % (11.5-15.5); WBC 4.2 k/uL (3.8-10.6)
[2018-01-12 06:13] LABS: Glucose,Whole Blood 70 mg/dL (75-99)
[2018-01-12 06:18] LABS: Calcium 8.6 mg/dL (8.4-10.2); Potassium 4.3 mmol/L (3.5-5.1)
[2018-01-12] MEDS: LEVOTHYROXINE 75 MCG TAB PO SCH (06:42)
[2018-01-12] MEDS: LEVOTHYROXINE 100 MCG TAB PO SCH (06:43)
[2018-01-12] MEDS: CARVEDILOL 12.5 MG TAB PO SCH ×2 (06:43→17:17)
[2018-01-12 06:51] LABS: Glucose,Whole Blood 72 mg/dL (75-99)
[2018-01-12 06:52] LABS: Platelet Count 89 k/uL (150-450)
[2018-01-12] MEDS: MONTELUKAST 10 MG TAB PO SCH (08:26)
[2018-01-12] MEDS: busPIRone HCl 10 MG TAB PO SCH (08:26)
[2018-01-12] MEDS: ASPIRIN 81 MG PO SCH ×2 (08:26→20:35)
[2018-01-12] MEDS: FUROSEMIDE 20 MG TAB PO SCH ×2 (08:27→20:47)
[2018-01-12] MEDS: buPROPion SR 150 MG TABLET.ER PO SCH ×2 (08:27→20:35)
[2018-01-12] MEDS: SODIUM CHLORIDE 0.9% 1,000 ML IV SCH ×2 (08:27→23:18)
[2018-01-12] MEDS: metFORMIN 500 MG TAB PO SCH ×2 (08:28→19:26)
[2018-01-12] MEDS: SYMBICORT 160-4.5 MCG INHALER INHALATION SCH ×2 (09:28→19:10)
--- NOTE | 2018-01-12 09:43 | P.PN ---
Subjective Progress Note Date: 01/12/18 Principal diagnosis: Chest discomfort This is a pleasant 77-year-old female patient who sees Dr. Jackson in the office as an outpatient with history of coronary artery disease and prior coronary artery stenting in 2008 followed by open heart surgery in 2012 where the patient received CABG 3 was unknown details at this point presented to the hospital complaining of pain in between her shoulders as well as shortness of breath. She stated that the discomfort in between her shoulders is known to her but reminded her with what she had before her open-heart surgery. The patient does also have history of cardiomyopathy and she is status post AICD. The patient was ruled out for acute coronary event. She was seen and evaluated by Dr. Jimenez who recommended proceeding with a stress test. It did show an area of ischemia involving the anteroseptal wall of the LV. Because of that heart catheterization was recommended. I did speak with Dr. Jackson earlier today and the patient is going to undergo a coronary angiogram in the next few hours. Objective - Vital Signs Vital signs: Vital Signs Temp 97.1 F L 01/12/18 04:00 Pulse 53 L 01/12/18 08:00 Resp 18 01/12/18 08:00 BP 100/51 01/12/18 08:00 Pulse Ox 97 01/12/18 08:00 Intake & Output 01/11/18 01/12/18 01/12/18 18:59 06:59 18:59 Intake Total 1300 Balance 1300 Weight 92.533 kg Intake: IV 650 Sodium Chloride 0.9% 1, 650 000 ml @ 75 mls/hr IV . [id number] [facility] Rx#:[id number] Intake, IV Titration 650 Amount Sodium Chloride 0.9% 1, 650 000 ml @ 75 mls/hr IV . [id number] [facility] Rx#:[id number] Other: Voiding Method Toilet Toilet # Voids 2 - Constitutional General appearance: Present: no acute distress - Respiratory Respiratory: bilateral: CTA - Cardiovascular Rhythm: regular Heart sounds: normal: S1, S2 Abnormal Heart Sounds: Present: systolic murmur - Labs CBC & Chem 7: 01/12/18 05:47 01/12/18 05:47 Labs: Abnormal Lab Results - Last 24 Hours (Table) 01/10/18 01/11/18 01/11/18 Range/Units 14:54 12:18 17:44 RBC (3.80-5.40) m/uL Hgb (11.4-16.0) gm/dL Plt Count (150-450) k/uL Lymphocytes # (1.0-4.8) k/uL Chloride (98-107) mmol/L BUN (7-17) mg/dL Creatinine (0.52-1.04) mg/dL Glucose (74-99) mg/dL POC Glucose (mg/dL) 141 H 216 H (75-99) mg/dL Hemoglobin A1c 9.5 H (4.0-6.0) % 01/11/18 01/12/18 01/12/18 Range/Units 21:03 05:47 05:47 RBC 3.55 L (3.80-5.40) m/uL Hgb 11.1 L (11.4-16.0) gm/dL Plt Count 89 L (150-450) k/uL Lymphocytes # 0.8 L (1.0-4.8) k/uL Chloride 111 H (98-107) mmol/L BUN 18 H (7-17) mg/dL Creatinine 1.06 H (0.52-1.04) mg/dL Glucose 65 L (74-99) mg/dL POC Glucose (mg/dL) 154 H (75-99) mg/dL Hemoglobin A1c (4.0-6.0) % 01/12/18 01/12/18 Range/Units 06:12 06:49 RBC (3.80-5.40) m/uL Hgb (11.4-16.0) gm/dL Plt Count (150-450) k/uL Lymphocytes # (1.0-4.8) k/uL Chloride (98-107) mmol/L BUN (7-17) mg/dL Creatinine (0.52-1.04) mg/dL Glucose (74-99) mg/dL POC Glucose (mg/dL) 70 L 72 L (75-99) mg/dL Hemoglobin A1c (4.0-6.0) % Microbiology - Last 24 Hours (Table) 01/10/18 15:27 Urine Culture - Preliminary Urine,Clean Catch Gram Neg Bacilli Assessment and Plan Assessment: Assessment #1 chest discomfort concerning for angina and the stent #2 abnormal myocardial perfusion imaging stress test showing ischemia #3 ischemic cardiomyopathy and status post AICD Plan #1 the patient is going to have a heart catheterization later on today #2 further recommendation to follow that
[2018-01-12] MEDS ORDERED: fentaNYL (PF) 50 MCG/ML 2 ML AMP ONE (09:57)
[2018-01-12] MEDS ORDERED: MIDAZOLAM 2 MG/2 ML VIAL ONE (09:57)
[2018-01-12] MEDS ORDERED: LIDOCAINE 1% INJ 10MG/ML (20 ML MDV) ONE (10:05)
[2018-01-12] MEDS ORDERED: MIDAZOLAM 2 MG/2 ML VIAL IVP ONE (10:15)
[2018-01-12] MEDS ORDERED: fentaNYL (PF) 50 MCG/ML 2 ML AMP IVP ONE (10:15)
[2018-01-12] MEDS ORDERED: LIDOCAINE 1% (PF) 10MG/ML VIAL SQ ONE (10:16)
[2018-01-12] MEDS ORDERED: SODIUM CHLORIDE 0.9% 1,000 ML IV ONE (10:19)
[2018-01-12] MEDS ORDERED: BIVALIRUDIN BOLUS 250 MG/50 ML IV ONE (10:53)
[2018-01-12] MEDS ORDERED: BIVALIRUDIN 250 MG in SODIUM CHLORIDE 0.9% 50 ML IV ONE (10:54)
[2018-01-12] MEDS ORDERED: IOPAMIDOL-370 125ML BTL INJ ONE (10:56)
[2018-01-12] MEDS ORDERED: NITROGLYCERIN 1000MCG/10ML SYRINGE INTRACORON ONE (11:12)
--- NOTE | 2018-01-12 11:12 | CC ---
CARDIAC CATHETERIZATION REPORT Mrs. Rodriguez came with symptoms suggestive of unstable angina. Patient underwent stress test, which showed evidence of apical septal ischemia. In view of that, the patient was recommended to have a cardiac catheterization for definitive diagnosis. PROCEDURE: The right groin was prepped and draped in the usual manner and the skin was infiltrated with 2% Xylocaine. The right femoral artery was entered using Seldinger technique. A #6-Persian sheath was placed in. Selective coronary angiography was then performed in multiple projections. Selective injection of the vein graft as well as the MARTIN was made. The patient tolerated the procedure well. Dr. Davenport subsequently proceeded with a stent to the ostial circumflex. SELECTIVE CORONARY ANGIOGRAPHY: Left main coronary artery is very short. LAD is totally occluded at its ostium. The ostium of the circumflex coronary artery before any branches has about 80%-90% stenosis. The circumflex gives rise to a good size obtuse marginal branch and then it continues as a good size branch and it gives rise to several PLV branches. Right coronary artery is small and 100% occluded. The saphenous vein graft to the PLV branch of the right coronary artery is patent. Saphenous vein graft to the first obtuse marginal branch is patent. Just proximal to the anastomosis, obtuse marginal branch has a 60%-70% stenosis. The MARTIN graft to the LAD is patent. RECOMMENDATIONS: Will review the films with Dr. Davenport. He will proceed with a stent to the circumflex coronary artery. MMODL / IJN: [id number] /
[2018-01-12] MEDS ORDERED: CLOPIDOGREL 75 MG TAB ONE (11:15)
[2018-01-12] MEDS ORDERED: MAG HYDROX/AL HYDROX/SIMETH 30 ML CUP PO PRN (11:26)
[2018-01-12] MEDS ORDERED: ATROPINE SULFATE 0.1 MG/ML 10ML SYRINGE IV PRN (11:26)
[2018-01-12] MEDS ORDERED: ZOLPIDEM 5 MG TAB PO PRN (11:26)
[2018-01-12] MEDS ORDERED: RX INFO: IV CONTRAST WAS GIVEN 1 EACH MISC MISCELLANE PRN (11:26)
[2018-01-12] MEDS ORDERED: NITROGLYCERIN SL TABS 0.4 MG TAB SUBLINGUAL PRN (11:26)
[2018-01-12] MEDS ORDERED: SODIUM CHLORIDE 0.9% 1,000 ML IV SCH (11:30)
[2018-01-12] MEDS ORDERED: CLOPIDOGREL 75 MG TAB PO ONE (11:32)
[2018-01-12] MEDS ORDERED: IOPAMIDOL-370 50ML BTL INJ ONE (11:32)
[2018-01-12] MEDS ORDERED: ONDANSETRON 4 MG/2 ML VIAL IVP STA (11:45)
[2018-01-12 12:05] LABS: Glucose,Whole Blood 132 mg/dL (75-99)
[2018-01-12 13:32] LABS: Glucose,Whole Blood 154 mg/dL (75-99)
--- NOTE | 2018-01-12 15:46 | P.PN ---
Subjective Progress Note Date: 01/12/18 This a pleasant 67-year-old patient well known to my practice. She has underlying history of diabetes mellitus type 2, CK D stage III, hypothyroidism, hypertension admitted through the emergency room as the patient has had some nausea, vomiting, dysuria, and chest discomfort. Agent also has some shaking chills, and often on fever since . She was subsequently seen in the office, and with all her discomfort, she was subsequently sent to emergency room for further evaluation. Patient also has shortness of breath on exertion, no PND, no edema. Consult were made with cardiology, with the chest pain symptoms, cardiac troponins to be obtained, echocardiogram, also noted to have significant urinary tract infection on admission, and was started on IV antibiotics, cultures to be done, as well as renal ultrasound Agent was seen by cardiology, we have seen the patient in the nuclear study room , undergoing Lexiscan stress test, report is currently pending patient remains to be chest pain-free 01/12 cardiac cath today required stents to circumflex, report for cath pending no fevers, urine culture growing gram-negative bacilli, no blood cultures obtained, from the ER with going to get one this morning. Patient without back pain, and currently chest pain-free Objective - Vital Signs Vital signs: Vital Signs Temp 97.1 F L 01/12/18 04:00 Pulse 53 L 01/12/18 08:00 Resp 18 01/12/18 08:00 BP 100/51 01/12/18 08:00 Pulse Ox 97 01/12/18 08:00 Intake & Output 01/11/18 01/12/18 01/12/18 18:59 06:59 18:59 Intake Total 1300 220 Balance 1300 220 Weight 92.533 kg Intake: IV 650 220 Sodium Chloride 0.9% 1, 650 000 ml @ 75 mls/hr IV . [id number] [facility] Rx#:[id number] Intake, IV Titration 650 Amount Sodium Chloride 0.9% 1, 650 000 ml @ 75 mls/hr IV . [id number] [facility] Rx#:[id number] Other: Voiding Method Toilet Toilet # Voids 2 - Constitutional General appearance: Present: cooperative, no acute distress - EENT Eyes: Present: anicteric sclerae, dentition normal, normal appearance ENT: Present: NA/AT, normal oropharynx - Neck Neck: Present: normal ROM - Respiratory Respiratory: bilateral: CTA, negative: diminished, dullness, rales, rhonchi - Cardiovascular Rhythm: regular Heart sounds: normal: S1, S2 Abnormal Heart Sounds: Present: systolic murmur, diastolic murmur - Gastrointestinal General gastrointestinal: Present: normal bowel sounds, soft - Integumentary Integumentary: Present: normal, normal turgor - Neurologic Neurologic: Present: CNII-XII intact - Musculoskeletal Musculoskeletal: Present: gait normal, strength equal bilaterally - Labs CBC & Chem 7: 01/12/18 05:47 01/12/18 05:47 Labs: Abnormal Lab Results - Last 24 Hours (Table) 01/10/18 01/11/18 01/11/18 Range/Units 14:54 12:18 17:44 RBC (3.80-5.40) m/uL Hgb (11.4-16.0) gm/dL Plt Count (150-450) k/uL Lymphocytes # (1.0-4.8) k/uL Chloride (98-107) mmol/L BUN (7-17) mg/dL Creatinine (0.52-1.04) mg/dL Glucose (74-99) mg/dL POC Glucose (mg/dL) 141 H 216 H (75-99) mg/dL Hemoglobin A1c 9.5 H (4.0-6.0) % 01/11/18 01/12/18 01/12/18 Range/Units 21:03 05:47 05:47 RBC 3.55 L (3.80-5.40) m/uL Hgb 11.1 L (11.4-16.0) gm/dL Plt Count 89 L (150-450) k/uL Lymphocytes # 0.8 L (1.0-4.8) k/uL Chloride 111 H (98-107) mmol/L BUN 18 H (7-17) mg/dL Creatinine 1.06 H (0.52-1.04) mg/dL Glucose 65 L (74-99) mg/dL POC Glucose (mg/dL) 154 H (75-99) mg/dL Hemoglobin A1c (4.0-6.0) % 01/12/18 01/12/18 Range/Units 06:12 06:49 RBC (3.80-5.40) m/uL Hgb (11.4-16.0) gm/dL Plt Count (150-450) k/uL Lymphocytes # (1.0-4.8) k/uL Chloride (98-107) mmol/L BUN (7-17) mg/dL Creatinine (0.52-1.04) mg/dL Glucose (74-99) mg/dL POC Glucose (mg/dL) 70 L 72 L (75-99) mg/dL Hemoglobin A1c (4.0-6.0) % Microbiology - Last 24 Hours (Table) 01/10/18 15:27 Urine Culture - Preliminary Urine,Clean Catch Gram Neg Bacilli Assessment and Plan Plan: 1. Chest pain, she has risk factors for CAD, patient underwent stress test and seen by cardiology, I've given report from Dr. DANK Marc that her ejection fraction is approximately 25%. continue coreg 12.5 bid Crestor 20 mg daily, losartan 50 mg daily, stress test shows stress suspicious stress-induced ischemia patient might need cardiac cath Cardiac catheter performed January 12, 2018, shows ICA 100% occlusion, circumflex 80 -90% stenosis, patent MARTIN to the LAD, saphenous vein graft to the first obtuse marginal branch is patent just proximal to anastomosis, obtuse marginal branch has 60-70% stenosis 2 Systolic cardiomyopathy EF 25%,with AICD im[plantation, follws with dr VC [place] on furosemide 25 mg half a tablet twice a day 3. Acute Urinary tract infection, without significant pyelenophritis symptoms, currently on iv rocephin. blood cultures to be done, i've discussed [facility] cardiology dr whiting, we will monitor closely in presence of UTi, and recent fevers, will monitor closesly as stent cardia has been placed 01/12/18 3 Diabetes with diabetic neuropathy on insulin pump follows by Dr. Ponce endocrinology 4 Hypothyroidism on levothyroxine 175 g daily 5 CK D stage III avoid nephrotoxins, monitor creatinine should any cardiac intervention to be done including cardiac catheter, 6 Hyperlipidemia Crestor 20 mg daily and Zetia 10 mg daily 7 Asthma with recent exacerbation, resolved*30 completed prednisone December 20 with a 15 day taper, no exacerbation at this time, continue on Singulair 10 mg daily, heat when necessary Ventolin 8 Osteoarthritis on tramadol 100 mg 3 times a day when necessary baclofen 10 9 Dysthymia is on Wellbutrin 150 mg twice a day BuSpar 15 mg 2 tab at bedtime and 1 tab a.m., and Luvox 100 mg 3 tabs at bedtime
[2018-01-12 16:52] LABS: Glucose,Whole Blood 195 mg/dL (75-99)
[2018-01-12] MEDS: ATORVASTATIN 40 MG TAB PO SCH (20:34)
[2018-01-12] MEDS: EZETIMIBE 10 MG TAB PO SCH (20:35)
[2018-01-12] MEDS: busPIRone HCl 5 MG TAB PO SCH (20:36)
[2018-01-12] MEDS: LOSARTAN 50 MG TAB PO SCH (20:47)
[2018-01-12 20:56] LABS: Glucose,Whole Blood 203 mg/dL (75-99)
[2018-01-13 03:42] VITALS: PULSE 55
[2018-01-13 05:21] LABS: Glucose,Whole Blood 52 mg/dL (75-99)
[2018-01-13 05:46] LABS: Glucose,Whole Blood 71 mg/dL (75-99)
[2018-01-13] MEDS: LEVOTHYROXINE 100 MCG TAB PO SCH (05:54)
[2018-01-13] MEDS: LEVOTHYROXINE 75 MCG TAB PO SCH (05:54)
[2018-01-13 06:17] LABS: Basophils % (A) 0 %; Eosinophils # (A) 0.3 k/uL (0-0.7); Eosinophils % (A) 8 %; HCT 37.6 % (34.0-46.0); HGB 12.3 gm/dL (11.4-16.0); Lymphocytes % (A) 22 %; MCH 31.4 pg (25.0-35.0); MCHC 32.6 g/dL (31.0-37.0); MCV 96.1 fL (80.0-100.0); Mean Platelet Volume 7.9; Monocytes # (A) 0.2 k/uL (0-1.0); Monocytes % (A) 4 %; Neutrophils # (A) 2.9 k/uL (1.3-7.7); Neutrophils % (A) 65 %; Platelet Count 107 k/uL (150-450); RBC 3.91 m/uL (3.80-5.40); RDW 14.7 % (11.5-15.5); WBC 4.5 k/uL (3.8-10.6)
[2018-01-13 06:31] LABS: Calcium 9.3 mg/dL (8.4-10.2); Potassium 4.6 mmol/L (3.5-5.1)
[2018-01-13 06:31] LABS: Glucose,Whole Blood 103 mg/dL (75-99)
--- NOTE | 2018-01-13 08:35 | PTCA ---
PERCUTANEOUSTRANS CORORONARY ANGIOGRAPHY DATE OF SERVICE: January 12, 2018 PERFORMING PHYSICIAN: Bebo Davenport MD, [employer]. PROCEDURE PERFORMED: Successful stenting of distal protected left main/proximal left circumflex using 3.0 x 15 mm Xience NICHOLAS with good angiographic results. INDICATION: This is a pleasant 67-year-old female patient with known history of coronary artery disease and coronary artery bypass grafting with MARTIN to LAD, SVG to OM, and SVG to RCA, who sees Dr. Dwight Jackson in the office as an outpatient, presented to the hospital with chest discomfort and underwent myocardial perfusion imaging stress test revealed ischemia. She underwent heart catheterization by Dr. Jackson and was found to have critical disease involving the distal left main and proximal left circumflex. The decision was made towards percutaneous coronary intervention. APPROACH: Right common femoral artery. COMPLICATION: None. LEVEL OF SEDATION: Moderate with sedation length of 33 minutes. PROCEDURE DESCRIPTION: After diagnostic heart catheterization was performed by Dr. VC Jackson we decided to pursue with intervention on the left circumflex. Anticoagulation was initiated using Angiomax. Subsequently I did engage the left main using JL4 with a short tip. The left circumflex was wired using a whisper wire. I did balloon angioplasty initially using 2.5 x 12 mm balloon and I tried to advance 3.0 x 15 mm stent but the stent will not make the turn from the left main to the left circumflex. At that point, I decided to balloon using a 3.0 mm NC balloon which was inflated under 16 atmospheres for 20 seconds. I tried again advancing the stent and the stent will not make the turn. At that point, I decided to wire the left circumflex using a andriy wire with a run-through wire. I attempted advancing the stent over the whisper, but the stent will not make the turn. So finally I was able to advanced over the run-through and with a run- through I was able to get the stent where it needed to be. The stent was positioned under fluoroscopy guidance and deployed under 16 atmospheres for 20 seconds. The following angiogram did show good angiographic results and the procedure was completed without any complication. POSTPROCEDURE MANAGEMENT: 1. Dual anti-platelet therapy. 2. Risk factor modifications. 3. Follow up with the patient. MMODL / IJN: [id number] /
[2018-01-13] MEDS: ASPIRIN 81 MG PO SCH (09:48)
[2018-01-13] MEDS: FUROSEMIDE 20 MG TAB PO SCH (09:48)
[2018-01-13] MEDS: CARVEDILOL 12.5 MG TAB PO SCH (09:49)
[2018-01-13] MEDS: busPIRone HCl 10 MG TAB PO SCH (09:49)
[2018-01-13] MEDS: MONTELUKAST 10 MG TAB PO SCH (09:49)
[2018-01-13] MEDS: buPROPion SR 150 MG TABLET.ER PO SCH (09:49)
[2018-01-13] MEDS: metFORMIN 500 MG TAB PO SCH (09:51)
[2018-01-13] MEDS: SODIUM CHLORIDE 0.9% 1,000 ML IV SCH (09:52)
[2018-01-13 09:55] VITALS: BP 124/67; RESP 16; TEMP 97.1
[2018-01-13] MEDS ORDERED: CLOPIDOGREL 75 MG TAB PO SCH (11:27)
--- NOTE | 2018-01-13 11:48 | P.PN ---
Subjective Progress Note Date: 01/13/18 This is a 67-year-old female with history of ischemic heart disease and previous bypass surgery who is being followed by Dr. VC Jackson. Patient also had episodes of SVT. She had also has a ACD implantation. She was seen by Dr. VC Jackson about a week ago. She claims that she has been having some shortness of breath and cold-like symptoms and cough. She started having some chest discomfort and also pain in between shoulder areas. She claimed that the pain in the back reminded her the pain she had before the heart attack. He is also complaining of some shortness of breath. Her EKGs did not reveal any acute changes. Cardiac enzymes are negative. Ginna scan stress test was performed which could not exclude a small area of stress-induced reversibility involving the apical septal portion of the myocardium. For this reason the patient underwent a cardiac catheterization yesterday by Dr. VC Jackson with subsequent angioplasty and stenting of the circumflex artery she was seen and examined this morning, denied any chest pain or difficulty in breathing. Blood pressure 124/60 with a heart rate of 56, 99% on room air. White blood cell count 4.5, hemoglobin 12.3, platelet count 107. Sodium 143, potassium 4.6, BUN 16 and creatinine 0.9. Objective - Vital Signs Vital signs: Vital Signs Temp 97.1 F L 01/13/18 08:00 Pulse 55 L 01/13/18 08:00 Resp 16 01/13/18 08:00 BP 124/67 01/13/18 08:00 Pulse Ox 99 01/13/18 08:00 Intake & Output 01/12/18 01/13/18 01/13/18 18:59 06:59 18:59 Intake Total 630 300 236 Output Total 800 Balance -170 300 236 Weight 92.533 kg 96.5 kg Intake: IV 220 300 Sodium Chloride 0.9% 1, 300 000 ml @ 75 mls/hr IV . [id number] [facility] Rx#:[id number] Oral 410 236 Output: Urine 800 Other: Voiding Method Toilet Toilet # Voids 2 - Exam PHYSICAL EXAMINATION: GENERAL: 67-year-old female in no apparent distress at the time of my examination HEENT: Head is atraumatic, normocephalic. Pupils equal, round. Sclera anicteric. Conjunctiva are clear. Mucous membranes of the mouth are moist. Neck is supple. There is no elevated jugular venous pressure.] bruit is heard. HEART EXAMINATION: Heart S1, S2 normal. No murmur or gallop heard. CHEST EXAMINATION: Lungs are clear to auscultation and precussion. No chest wall tenderness is noted on palpation or with deep breathing. ABDOMEN: Soft, nontender. Bowel sounds are heard. No organomegaly noted. Right groin soft, no evidence of any hematoma EXTREMITIES: 2+ peripheral pulses with no evidence of peripheral edema and no calf tenderness noted. NEUROLOGIC patient is awake, alert and oriented ?-3. . - Labs CBC & Chem 7: 01/13/18 05:48 01/13/18 05:48 Labs: Abnormal Lab Results - Last 24 Hours (Table) 01/12/18 01/12/18 01/12/18 Range/Units 11:56 13:29 16:31 Plt Count (150-450) k/uL Chloride (98-107) mmol/L Carbon Dioxide (22-30) mmol/L POC Glucose (mg/dL) 132 H 154 H 195 H (75-99) mg/dL 01/12/18 01/13/18 01/13/18 Range/Units 20:54 05:19 05:45 Plt Count (150-450) k/uL Chloride (98-107) mmol/L Carbon Dioxide (22-30) mmol/L POC Glucose (mg/dL) 203 H 52 L 71 L (75-99) mg/dL 01/13/18 01/13/18 01/13/18 Range/Units 05:48 05:48 06:27 Plt Count 107 L (150-450) k/uL Chloride 111 H (98-107) mmol/L Carbon Dioxide 20 L (22-30) mmol/L POC Glucose (mg/dL) 103 H (75-99) mg/dL Microbiology - Last 24 Hours (Table) 01/10/18 15:27 Urine Culture - Final Urine,Clean Catch Escherichia coli Assessment and Plan Plan: Assessment and plan #1 status post angioplasty with stenting of the circumflex. #2 positive Ginna scan #3 systolic congestive heart failure acute on chronic, ischemic cardiomyopathy with documented ejection fraction of 25%. Status post AICD implantation #4 diabetes # 5 hyperlipidemia #6 hypothyroidism #7 chronic kidney disease stage III, #8 UTI Plan From cardiology's perspective patient may be able to be discharged home today. We'll make her follow-up appointment in the office with Dr. VC Jackson in one week. Her Lipitor will be discontinued and the patient will be put on Crestor 40 mg daily on discharge. We will also continue the Coreg 12-1/2 mg one tablet by mouth twice a day, Plavix 75 mg daily, aspirin 81 mg daily, losartan 50 mg daily, and sublingual nitroglycerin as needed for chest pain. DNP note has been reviewed, I agree with a documented findings and plan of care. Patient was seen and examined.
[2018-01-13 12:07] VITALS: BMI 37.7
[2018-01-13] MEDS ORDERED: ATORVASTATIN 80 MG TAB PO SCH (21:00)
[2018-01-13] MEDS ORDERED: EZETIMIBE 10 MG TAB PO SCH (21:00)
--- NOTE | 2018-01-14 14:41 | P.DS ---
Providers Date of admission: 01/10/18 17:50 Expected date of discharge: 01/13/18 Attending physician: Renata Burgess Consults: 01/10/18 17:50 Consult Physician Routine Consulting Provider: Roshan Jackson Consult Reason/Comments: Generalized weakness, chest pain Do you want consulting provider notified?: Yes 01/12/18 11:26 Consult Physician Routine Consulting Provider: [facility] Consult Reason/Comments: Post Interventional patient Do you want consulting provider notified?: Already Contacted Primary care physician: [facility] Course: This a pleasant 67-year-old patient well known to my practice. She has underlying history of diabetes mellitus type 2, CK D stage III, hypothyroidism, hypertension admitted through the emergency room as the patient has had some nausea, vomiting, dysuria, and chest discomfort. Agent also has some shaking chills, and often on fever since . She was subsequently seen in the office, and with all her discomfort, she was subsequently sent to emergency room for further evaluation. Patient also has shortness of breath on exertion, no PND, no edema. Consult were made with cardiology, with the chest pain symptoms, cardiac troponins to be obtained, echocardiogram, also noted to have significant urinary tract infection on admission, and was started on IV antibiotics, cultures to be done, as well as renal ultrasound Agent was seen by cardiology, we have seen the patient in the nuclear study room , undergoing Lexiscan stress test, report is currently pending patient remains to be chest pain-free 01/12 cardiac cath today required stents to circumflex, report for cath pending no fevers, urine culture growing gram-negative bacilli, no blood cultures obtained, from the ER with going to get one this morning. Patient without back pain, and currently chest pain-free 01/13: Urine culture was positive for E. coli pansensitive. Patient denies having any chest pain. She will be discharged home today once cleared by cardiology. Discharge diagnoses: 1. Chest pain due to coronary artery disease. Cardiac catheter performed January, shows ICA 100% occlusion, circumflex 80-90% stenosis, patent MARTIN to the LAD, saphenous vein graft to the first obtuse marginal branch is patent just proximal to anastomosis, obtuse marginal branch has 60-70% stenosis 2. Systolic cardiomyopathy EF 25%,with AICD im[plantation 3. Acute Urinary tract infection 4. Diabetes mellitus type II with diabetic neuropathy on insulin pump 5. Hypothyroidism 6. CKD stage III 7. Hyperlipidemia 8. Asthma, moderate persistent with recent exacerbation, resolved 9. Osteoarthritis, generalized 10. Dysthymia Discharge plan: Home Impression and plan of care have been directed as dictated by the signing physician. Stacey Tony nurse practitioner acting as scribe for signing physician. Patient Condition at Discharge: Good Plan - Discharge Summary Discharge Rx Participant: No New Discharge Prescriptions: New Cephalexin [Keflex] 500 mg PO Q8HR #24 cap Clopidogrel [Plavix] 75 mg PO DAILY #30 tab Nitroglycerin Sl Tabs [Nitrostat] 0.4 mg SUBLINGUAL Q5M PRN #25 tab PRN Reason: Chest Pain Sacubitril/Valsartan [Entresto 24 mg-26 mg Tablet] 0.5 each PO BID #60 tablet Rosuvastatin Calcium [Crestor] 40 mg PO DAILY #30 tab Continue Budesonide-Formot 160-4.5 Mcg [Symbicort 160-4.5 Mcg Inhaler] 2 puff INHALATION BID PRN PRN Reason: Shortness Of Breath Nitroglycerin Sl Tabs [Nitrostat] 0.4 mg SUBLINGUAL Q5M PRN PRN Reason: Chest Pain Insulin Aspart [NovoLOG] 0 units SQ-PUMP CONTINUOUS metFORMIN HCL [Glucophage] 500 mg PO BID fluvoxaMINE MALEATE [Luvox] 300 mg PO HS busPIRone HCL [Buspar] 15 mg PO HS Carvedilol [Coreg] 12.5 mg PO BID Furosemide [Lasix] 20 mg PO DAILY Montelukast [Singulair] 10 mg PO DAILY Ezetimibe [Zetia] 10 mg PO DAILY Aspirin [Adult Low Dose Aspirin EC] 162 mg PO BID Albuterol Inhaler [Ventolin Hfa Inhaler] 2 puff INHALATION Q4-6H PRN PRN Reason: sob buPROPion SR [Wellbutrin SR] 150 mg PO BID busPIRone HCL 30 mg PO QAM Ergocalciferol [Vitamin D2 (DRISDOL)] 50,000 unit PO PRUITT Levothyroxine Sodium [Synthroid] 175 mcg PO QAM traMADol HCL [Ultram] 100 mg PO TID PRN PRN Reason: Pain Acetaminophen [Tylenol Extra Strength] 1,000 mg PO DIRECTED PRN PRN Reason: Pain Baclofen [Lioresal] 20 mg PO TID Discontinued Losartan [Cozaar] 50 mg PO HS Rosuvastatin Calcium [Crestor] 20 mg PO HS Discharge Medication List Aspirin [Adult Low Dose Aspirin EC] 162 mg PO BID 12/27/15 [History] Budesonide-Formot 160-4.5 Mcg [Symbicort 160-4.5 Mcg Inhaler] 2 puff INHALATION BID PRN 12/27/15 [History] Carvedilol [Coreg] 12.5 mg PO BID 12/27/15 [History] Ezetimibe [Zetia] 10 mg PO DAILY 12/27/15 [History] Furosemide [Lasix] 20 mg PO DAILY 12/27/15 [History] Insulin Aspart [NovoLOG] 0 units SQ-PUMP CONTINUOUS 12/27/15 [History] Montelukast [Singulair] 10 mg PO DAILY 12/27/15 [History] Nitroglycerin Sl Tabs [Nitrostat] 0.4 mg SUBLINGUAL Q5M PRN 12/27/15 [History] busPIRone HCL [Buspar] 15 mg PO HS 12/27/15 [History] fluvoxaMINE MALEATE [Luvox] 300 mg PO HS 12/27/15 [History] metFORMIN HCL [Glucophage] 500 mg PO BID 12/27/15 [History] Acetaminophen [Tylenol Extra Strength] 1,000 mg PO DIRECTED PRN 03/29/17 [ History] Albuterol Inhaler [Ventolin Hfa Inhaler] 2 puff INHALATION Q4-6H PRN 03/29/17 [ History] Ergocalciferol [Vitamin D2 (DRISDOL)] 50,000 unit PO PRUITT 03/29/17 [History] Levothyroxine Sodium [Synthroid] 175 mcg PO QAM 03/29/17 [History] buPROPion SR [Wellbutrin SR] 150 mg PO BID 03/29/17 [History] busPIRone HCL 30 mg PO QAM 03/29/17 [History] traMADol HCL [Ultram] 100 mg PO TID PRN 03/29/17 [History] Baclofen [Lioresal] 20 mg PO TID 01/10/18 [History] Cephalexin [Keflex] 500 mg PO Q8HR #24 cap 01/13/18 [Rx] Clopidogrel [Plavix] 75 mg PO DAILY #30 tab 01/13/18 [Rx] Nitroglycerin Sl Tabs [Nitrostat] 0.4 mg SUBLINGUAL Q5M PRN #25 tab 01/13/18 [Rx ] Rosuvastatin Calcium [Crestor] 40 mg PO DAILY #30 tab 01/13/18 [Rx] Sacubitril/Valsartan [Entresto 24 mg-26 mg Tablet] 0.5 each PO BID #60 tablet [Rx] Follow up Appointment(s)/Referral(s): Renata Burgess MD [Primary Care Provider] - 01/20/18 5:00 pm Roshan Jackson MD [STAFF PHYSICIAN] - 01/19/18 3:00 pm Patient Instructions/Handouts: *Surgery [facility] - After Heart Catheterization - Salvager Instructions, Urinary Tract Infection in Women (DC), Heart Healthy Diet (DC), Coronary Intravascular Stent Placement (DC) Activity/Diet/Wound Care/Special Instructions: Patient to pick and shovel worker Entresto samples in the office while waiting for preauth. Discharge Disposition: HOME SELF-CARE
[2018-01-16] MEDS ORDERED: ERGOCALCIFEROL 50,000 UNIT CAP PO SCH (09:00)
== END 2018-01-13 12:17 | disposition home or self-care (01) | DRG 247 ==
LOC: EC 14:33 → OBSVTOIN 17:50 → 3OBS 17:50 → 6SEL 01-11 18:15
PROVIDERS: ADMIT Family Medicine; ATTEND Family Medicine
PROC: B2111ZZ Fluoroscopy of Multiple Coronary Arteries using Low Osmolar Contrast (ICD-10-PCS; 2018-01-12)
PROC: 4A023N7 Measurement of Cardiac Sampling and Pressure, Left Heart, Percutaneous Approach (ICD-10-PCS; 2018-01-12)
PROC: B2131ZZ Fluoroscopy of Multiple Coronary Artery Bypass Grafts using Low Osmolar Contrast (ICD-10-PCS; 2018-01-12)
PROC: 027034Z Dilation of Coronary Artery, One Artery with Drug-eluting Intraluminal Device, Percutaneous Approach (ICD-10-PCS; principal; 2018-01-12 10:00)
PROC: 4A023N7 Measurement of Cardiac Sampling and Pressure, Left Heart, Percutaneous Approach (ICD-10-PCS; 2018-01-12 10:00)
DX: I25.110 Atherosclerotic heart disease of native coronary artery with unstable angina pectoris (principal); N39.0 Urinary tract infection, site not specified; I47.1 Supraventricular tachycardia; I13.0 Hypertensive heart and chronic kidney disease with heart failure and stage 1 through stage 4 chronic kidney disease, or unspecified chronic kidney disease; I50.22 Chronic systolic (congestive) heart failure; I25.82 Chronic total occlusion of coronary artery; I25.5 Ischemic cardiomyopathy; E11.22 Type 2 diabetes mellitus with diabetic chronic kidney disease; N18.3 Chronic kidney disease, stage 3 (moderate); E03.9 Hypothyroidism, unspecified; E11.40 Type 2 diabetes mellitus with diabetic neuropathy, unspecified; E78.5 Hyperlipidemia, unspecified; F34.1 Dysthymic disorder; J45.909 Unspecified asthma, uncomplicated; L80 Vitiligo; M85.80 Other specified disorders of bone density and structure, unspecified site; D64.9 Anemia, unspecified; Z96.41 Presence of insulin pump (external) (internal); Z96.1 Presence of intraocular lens; M19.90 Unspecified osteoarthritis, unspecified site; E86.0 Dehydration; Z95.1 Presence of aortocoronary bypass graft; Z95.5 Presence of coronary angioplasty implant and graft; Z95.810 Presence of automatic (implantable) cardiac defibrillator; Z88.1 Allergy status to other antibiotic agents; I25.2 Old myocardial infarction; Z98.42 Cataract extraction status, left eye; Z98.41 Cataract extraction status, right eye; Z79.890 Hormone replacement therapy; Z79.4 Long term (current) use of insulin; Z79.51 Long term (current) use of inhaled steroids; Z79.82 Long term (current) use of aspirin; Z79.899 Other long term (current) drug therapy; Z83.3 Family history of diabetes mellitus; Z90.710 Acquired absence of both cervix and uterus; Z90.49 Acquired absence of other specified parts of digestive tract
CPT/HCPCS: 36415; 71046; 74018; 76770; 78452; 80048; 80053; 81001; 82150; 82550; 82553; 83036; 83605; 83690; 83735; 84484; 85025; 85610; 85730; 87040; 87077; 87086; 87186; 93005; 93017; 93306; 93455; 94640; 96374; 96375; 99285

== ENCOUNTER → 2018-04-14 | Day surgery (SDC) | payer MEDICARE ==
[2018-04-11 09:18] VITALS: BMI 36.3
[~2018-04-14] MED LIST changes: +IOPAMIDOL-250 50ML BTL IV ONE; -LACTATED RINGERS 1,000 ML IV SCH; -LIDOCAINE 1% 20 ML VIAL (10MG/ML) FOR IV START INTRADERMA PRN; +SODIUM CHLORIDE 0.9% 1,000 ML IV SCH
[2018-04-14 07:14] VITALS: PULSE 59; RESP 18; TEMP 98.6
[2018-04-14 07:30] LABS: Glucose,Whole Blood 174 mg/dL (75-99)
--- NOTE | 2018-04-14 08:22 | PCN ---
PROCEDURE NOTE Roshni Rodriguez is a 67-year-old female with progressive heart failure and severe LV dysfunction, underlying ischemic cardiomyopathy who is awaiting upgrade to a biventricular ICD. She is brought in for a left upper extremity venogram with cinefluoroscopy with single- chamber ICD. Cinefluoroscopy of the leads revealed a single coil ICD lead without any fractures, breaks, or externalization. Left upper extremity venogram was performed; 15 mL of dye was injected in the left upper extremity vein and a patent left subclavian venous system was found. On cinefluoroscopy, calcification of the left circumflex was noted and a stent to the LAD was noted. IMPRESSION: Severe ischemic cardiomyopathy with a QRS width of about 138 milliseconds, left bundle branch block pattern, congestive heart failure class 3 with a patent left subclavian vein wound. PLAN: To proceed with upgrade to a biventricular ICD in the next few weeks. SAI / NAN: [id number] /
[2018-04-14 08:29] LABS: Calcium 9.3 mg/dL (8.4-10.2); Potassium 4.4 mmol/L (3.5-5.1)
[2018-04-14 08:37] LABS: Magnesium 1.6 mg/dL (1.6-2.3)
[2018-04-14 08:39] VITALS: BP 111/64
== END | disposition home or self-care (01) ==
LOC: CATHEP 06:28
PROVIDERS: ATTEND Internal Medicine Clinical Cardiac Electrophysiology
DX: I44.7 Left bundle-branch block, unspecified (principal); I50.22 Chronic systolic (congestive) heart failure; I25.5 Ischemic cardiomyopathy; I11.0 Hypertensive heart disease with heart failure; E78.5 Hyperlipidemia, unspecified; I25.10 Atherosclerotic heart disease of native coronary artery without angina pectoris; E11.51 Type 2 diabetes mellitus with diabetic peripheral angiopathy without gangrene; I25.2 Old myocardial infarction; Z79.82 Long term (current) use of aspirin; Z79.02 Long term (current) use of antithrombotics/antiplatelets; Z79.84 Long term (current) use of oral hypoglycemic drugs; Z79.4 Long term (current) use of insulin; Z95.5 Presence of coronary angioplasty implant and graft; Z95.1 Presence of aortocoronary bypass graft
CPT/HCPCS: 36005; 75820; 76000; 80048; 83735; 84443; Q9966

== ENCOUNTER 2018-04-19 11:26 | Day surgery (SDC) | payer MEDICARE ==
[2018-04-15 11:08] VITALS: BMI 36.3
[~2018-04-19 11:26] MED LIST changes: -IOPAMIDOL-250 50ML BTL IV ONE; +LACTATED RINGERS 1,000 ML IV SCH; +ceFAZolin 1,000 MG in SODIUM CHLORIDE 0.9% IRRIGATIO 250 ML IRRIGATION ONE; +ceFAZolin IN SWFI 2 GM/20 ML SYRINGE IVP ONE
[2018-04-19 12:27] LABS: HGB 12.6 gm/dL (11.4-16.0); MCH 31.7 pg (25.0-35.0); MCV 93.3 fL (80.0-100.0); Mean Platelet Volume 7.9; Platelet Count 182 k/uL (150-450); RBC 3.97 m/uL (3.80-5.40); RDW 12.7 % (11.5-15.5); WBC 6.1 k/uL (3.8-10.6)
[2018-04-19 12:33] LABS: Glucose,Whole Blood 118 mg/dL (75-99)
[2018-04-19] MEDS ORDERED: LIDOCAINE 1% INJ 10MG/ML (20 ML MDV) ONE ×2 (14:33→14:45)
[2018-04-19 14:36] LABS: Glucose,Whole Blood 93 mg/dL (75-99)
[2018-04-19] MEDS ORDERED: PROPOFOL 10 MG/ML 20 ML VIAL IV ONE (14:45)
[2018-04-19] MEDS ORDERED: MIDAZOLAM 2 MG/2 ML VIAL ONE (14:45)
[2018-04-19] MEDS ORDERED: PHENYLEPHRINE-0.9% NACL SYG 1 MG/10 ML SYRINGE ONE (14:45)
[2018-04-19] MEDS ORDERED: fentaNYL (PF) 50 MCG/ML 2 ML AMP ONE (14:45)
[2018-04-19] MEDS ORDERED: diphenhydrAMINE 50 MG/ML 1 ML VIAL ONE (14:45)
[2018-04-19] MEDS ORDERED: LIDOCAINE 1% INJ 10MG/ML (20 ML MDV) SQ ONE (15:26)
[2018-04-19] MEDS ORDERED: IOPAMIDOL-250 50ML BTL IV ONE (16:00)
[2018-04-19 16:17] LABS: Glucose,Whole Blood 87 mg/dL (75-99)
[2018-04-19 17:30] LABS: Glucose,Whole Blood 88 mg/dL (75-99)
[2018-04-19] MEDS ORDERED: ACETAMINOPHEN IV (For NPO) 1,000 MG in EMPTY BAG 1 BAG IVPB ONE (17:43)
[2018-04-19] MEDS ORDERED: ACETAMINOPHEN TAB 325 MG TAB PO PRN (17:43)
[2018-04-19] MEDS ORDERED: BACLOFEN 10 MG TAB PO PRN (17:44)
[2018-04-19 18:11] LABS: Glucose,Whole Blood 98 mg/dL (75-99)
[2018-04-19] MEDS: SYMBICORT 160-4.5 MCG INHALER INHALATION SCH (19:24)
[2018-04-19] MEDS: buPROPion SR 150 MG TABLET.ER PO SCH (20:22)
[2018-04-19] MEDS: SACUBITRIL/VALSARTAN 24 MG-26 MG TABLET PO SCH (20:22)
[2018-04-19] MEDS: CARVEDILOL 12.5 MG TAB PO SCH (20:23)
[2018-04-19] MEDS: ASPIRIN 81 MG PO SCH (20:23)
[2018-04-19] MEDS: ceFAZolin IN SWFI 2 GM/20 ML SYRINGE IVP SCH (20:23)
[2018-04-19 21:29] LABS: Glucose,Whole Blood 227 mg/dL (75-99)
[2018-04-19] MEDS: EZETIMIBE 10 MG TAB PO SCH (22:18)
[2018-04-19] MEDS: ATORVASTATIN 80 MG TAB PO SCH (22:18)
[2018-04-19] MEDS: HYDROcodone/APAP 5-325MG 1 EACH TAB PO PRN (22:29)
[2018-04-19] MEDS ORDERED: INSULIN ASPART 100 UNIT/ML 1 ML 10 ML VIAL SQ PRN (22:33)
[2018-04-19] MEDS ORDERED: INSULIN PUMP BASAL RATES 1 EACH MISC MISCELLANE PRN (22:33)
[2018-04-19] MEDS ORDERED: INSPUCOR MISCELLANE PRN (22:33)
[2018-04-20] MEDS: ceFAZolin IN SWFI 2 GM/20 ML SYRINGE IVP SCH ×3 (02:44→14:46)
[2018-04-20 05:14] LABS: Hemoglobin A1C 8.5 % (4.0-6.0)
[2018-04-20] MEDS ORDERED: LEVOTHYROXINE 100 MCG TAB PO SCH (06:30)
[2018-04-20] MEDS ORDERED: LEVOTHYROXINE 75 MCG TAB PO SCH (06:30)
[2018-04-20] MEDS: HYDROcodone/APAP 5-325MG 1 EACH TAB PO PRN ×2 (06:37→14:59)
[2018-04-20 07:03] LABS: Glucose,Whole Blood 127 mg/dL (75-99)
[2018-04-20] MEDS: SYMBICORT 160-4.5 MCG INHALER INHALATION SCH (07:33)
--- NOTE | 2018-04-20 08:03 | P.DS ---
Providers Attending physician: Fab Villanueva Primary care physician: [facility] Course: Patient is doing well. No chest pain no dizziness no lightheadedness no palpitations Mild discomfort at the ICD site but no swelling no soakage Normal heart sounds normal S1 normal S2 no murmurs no gallops no rub Breath sounds are clear no rhonchi no crackles Abdomen soft No JVD Impression Severe cardio myopathy with worsening heart failure symptoms and new development of a left bundle branch block status post upgrade to biventricular ICD Underlying coronary artery disease, old [place], ischemic cardio myopathy, systolic congestive heart failure chronic in nature status post coronary artery bypass grafting Plan Discharge home after completion of IV antibiotics follow-up in the office in 5 days for a device and wound check and follow-up with Dr. Jackson as before Patient Condition at Discharge: Stable Plan - Discharge Summary Discharge Rx Participant: No New Discharge Prescriptions: Continue Budesonide-Formot 160-4.5 Mcg [Symbicort 160-4.5 Mcg Inhaler] 2 puff INHALATION BID PRN PRN Reason: Shortness Of Breath Insulin Aspart [NovoLOG] 0 units SQ-PUMP CONTINUOUS metFORMIN HCL [Glucophage] 500 mg PO BID fluvoxaMINE MALEATE [Luvox] 300 mg PO HS busPIRone HCL [Buspar] 15 mg PO HS Carvedilol [Coreg] 12.5 mg PO BID Furosemide [Lasix] 20 mg PO DAILY Montelukast [Singulair] 10 mg PO DAILY Ezetimibe [Zetia] 10 mg PO DAILY Aspirin [Adult Low Dose Aspirin EC] 162 mg PO BID Albuterol Inhaler [Ventolin Hfa Inhaler] 2 puff INHALATION Q4-6H PRN PRN Reason: sob buPROPion SR [Wellbutrin SR] 150 mg PO BID busPIRone HCL 30 mg PO QAM Ergocalciferol [Vitamin D2 (DRISDOL)] 50,000 unit PO PRUITT Levothyroxine Sodium [Synthroid] 175 mcg PO QAM traMADol HCL [Ultram] 100 mg PO TID PRN PRN Reason: Pain Acetaminophen [Tylenol Extra Strength] 1,000 mg PO DIRECTED PRN PRN Reason: Pain Baclofen [Lioresal] 20 mg PO TID PRN PRN Reason: Pain Clopidogrel [Plavix] 75 mg PO DAILY #30 tab Nitroglycerin Sl Tabs [Nitrostat] 0.4 mg SUBLINGUAL Q5M PRN #25 tab PRN Reason: Chest Pain Rosuvastatin Calcium [Crestor] 40 mg PO DAILY #30 tab Sacubitril/Valsartan [Entresto 24 mg-26 mg Tablet] 1 each PO BID Discharge Medication List Aspirin [Adult Low Dose Aspirin EC] 162 mg PO BID 12/27/15 [History] Budesonide-Formot 160-4.5 Mcg [Symbicort 160-4.5 Mcg Inhaler] 2 puff INHALATION BID PRN 12/27/15 [History] Carvedilol [Coreg] 12.5 mg PO BID 12/27/15 [History] Ezetimibe [Zetia] 10 mg PO DAILY 12/27/15 [History] Furosemide [Lasix] 20 mg PO DAILY 12/27/15 [History] Insulin Aspart [NovoLOG] 0 units SQ-PUMP CONTINUOUS 12/27/15 [History] Montelukast [Singulair] 10 mg PO DAILY 12/27/15 [History] busPIRone HCL [Buspar] 15 mg PO HS 12/27/15 [History] fluvoxaMINE MALEATE [Luvox] 300 mg PO HS 12/27/15 [History] metFORMIN HCL [Glucophage] 500 mg PO BID 12/27/15 [History] Acetaminophen [Tylenol Extra Strength] 1,000 mg PO DIRECTED PRN 03/29/17 [ History] Albuterol Inhaler [Ventolin Hfa Inhaler] 2 puff INHALATION Q4-6H PRN 03/29/17 [ History] Ergocalciferol [Vitamin D2 (DRISDOL)] 50,000 unit PO PRUITT 03/29/17 [History] Levothyroxine Sodium [Synthroid] 175 mcg PO QAM 03/29/17 [History] buPROPion SR [Wellbutrin SR] 150 mg PO BID 03/29/17 [History] busPIRone HCL 30 mg PO QAM 03/29/17 [History] traMADol HCL [Ultram] 100 mg PO TID PRN 03/29/17 [History] Baclofen [Lioresal] 20 mg PO TID PRN 01/10/18 [History] Clopidogrel [Plavix] 75 mg PO DAILY #30 tab 01/13/18 [Rx] Nitroglycerin Sl Tabs [Nitrostat] 0.4 mg SUBLINGUAL Q5M PRN #25 tab 01/13/18 [Rx ] Rosuvastatin Calcium [Crestor] 40 mg PO DAILY #30 tab 01/13/18 [Rx] Sacubitril/Valsartan [Entresto 24 mg-26 mg Tablet] 1 each PO BID 04/11/18 [ History] Follow up Appointment(s)/Referral(s): Roshan Jackson MD [STAFF PHYSICIAN] - 1 Week (Device clinic follow-up in 5 days and follow with Dr. Jackson in 2 months) Activity/Diet/Wound Care/Special Instructions: PATIENT EDUCATION MATERIAL Instructions following a heart rhythm device implant. 1. Keep dressing DRY for 5 DAYS. You may cover the area with Saran or Cling Wrap, prior to a shower. 2. The dressing will be removed in the Device Clinic at [facility]. Absorbable sutures were used to close the wound. 3. Avoid raising the left arm above the shoulder level. 4 week restriction 4. Avoid arm movements, like backscratching, rubbing the head, or pulling on a cord. 4 weeks restriction 5. Gentle range of motion movements of the shoulder, closest to the incision should be performed to avoid a frozen shoulder. (Pendulum exercises of the shoulder) 6. The opposite arm may be used freely. 7. Avoid driving for 7 days. 8. Avoid activities such as golfing, swimming, weed whacking, lifting more than 10 pounds weight, bowling, gymnastics and weight training/lifting. (6 weeks restriction) 9. Activities such as wood chopping with an axe, pull-ups in the gymnasium, power lifting, arc-welding, being close to home induction cooktops will always be a problem. 10. Arm sling is only a reminder not to raise the arm above the head. You do not need to keep the arm completely immobilized. Your free to move the arm and use it and for normal activities. In case of any problems, please call [facility], Devan Tabor, @ [phone], Attention: Device Clinic Device clinic follow-up in 5 days Follow-up with primary remarketing rep in 2-3 months Discharge Disposition: HOME SELF-CARE
--- NOTE | 2018-04-20 08:21 | XR ---
EXAMINATION TYPE: XR chest 2V DATE OF EXAM: 04/20/2018 COMPARISON: Prior chest x-ray 01/10/2018 HISTORY: Lead placement check TECHNIQUE: Frontal and lateral views of the chest are obtained. FINDINGS: Generator is in the left pectoral region. There are leads in the right atrium, ventricle, coronary sinus. Patient is post median sternotomy. Heart size is stable and enlarged. No evident airs pace disease, pneumothorax, or pleural effusion. IMPRESSION: No evident complication status post lead placement.
[2018-04-20 08:35] VITALS: RESP 18
--- NOTE | 2018-04-20 08:43 | PCN ---
PROCEDURE NOTE Roshni Rodriguez is a 67-year-old female who has severe cardiomyopathy, worsening heart failure symptoms on appropriate drug treatment and widening of the QRS over the last few months with the left bundle branch block morphology, coronary artery disease, status post coronary artery bypass grafting, who is brought in for an upgrade to a biventricular ICD. She has a single-chamber ICD implanted. Patient was brought to the EP lab in a fasting state. Written informed consent was obtained prior to the procedure. The left shoulder area was prepped and draped as per protocol and 1% lidocaine was used for local anesthesia. A 4 cm incision was made directly over the previous surgical site and carried down to the level of the pectoralis muscle and the generator was explanted. The RV lead was inspected. 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 This was consistent with twiddler syndrome. However, the intracardiac lead position was adequate and the heel was adequate. Axillary vein access was obtained at 2 sites and via these appropriately-sized sheaths were placed and LV lead was placed and an atrial lead was placed. Atrial lead was [employer] Tendril STS [id number] 52 cm in length and serial #[id number]. This was screwed in the right atrial appendage. The P waves were 3.8 mV. Pacing threshold 0.5 V at 0.5 milliseconds. Pacing impedance of 590 ohms. Ten volt test was negative. This lead was later secured to the underlying pectoralis fascia using 2 nonabsorbable sutures and secured to the underlying pectoralis fascia. The LV lead placed in the coronary sinus was accessed and the coronary sinus venogram was performed. The patient had a very diminutive lateral vein, anterolateral veins. The only acceptable size vein was the middle cardiac vein which coursed all the way laterally in an [place] view to communicate with the anterolateral veins. This was sub- selected, the LV lead was placed. This was a quadripolar lead and was placed so that the tip would reach the 3 o'clock position. The was performed successfully, however at this site, the distal pole had complete non-capture and in the proximal poles phrenic nerve stimulation was noted. Therefore the lead was repositioned with the tip pointing a little inferiorly. Once again, high thresholds were noted in the distal tip but in the proximal pole 4 as well as pole 3, the thresholds were acceptable in the electrode to RV coil configuration. The sheath was removed. Lead was secured to the underlying pectoralis muscle and the wound was irrigated. Hemostasis was assured. The old single chamber ICD generator was explanted. The new generator was implanted. The LV lead was a [employer] Quartet [id number], 75 cm length and serial #[id number]. The new generator implanted was a [email or web address] Jetstream MP [id number], serial #[id number]. The lead and generator were then placed in subfascial pocket. The wound was closed in 3 layers and dressed per protocol. DFT testing was withheld at this time on account of the patient's recent worsening in heart failure. This will be performed after about 3 months or so once there is improvement in her heart failure symptoms following Bi V pacing. The device was then programmed to DDD mode with AV sync turned on with an offset of 10 milliseconds. Madit-RIT programming was performed for VT and VF therapies. The patient tolerated the procedure well without any acute complications. RESULT: Successful implantation of new atrial lead and new LV lead. The only available coronary vein was the middle cardiac vein, but it communicated with the anterior lateral veins where the threshold was high in this location (3 o'clock position [place] 24). The lead was repositioned in a different sub-selected location. Thresholds were high. Diaphragmatic pacing was noted but the proximal poles had acceptable thresholds. MMODL / IJN: [id number] /
[2018-04-20] MEDS: EZETIMIBE 10 MG TAB PO SCH (08:53)
[2018-04-20] MEDS: ASPIRIN 81 MG PO SCH (08:53)
[2018-04-20] MEDS: SACUBITRIL/VALSARTAN 24 MG-26 MG TABLET PO SCH (08:53)
[2018-04-20] MEDS: CARVEDILOL 12.5 MG TAB PO SCH (08:53)
[2018-04-20] MEDS: buPROPion SR 150 MG TABLET.ER PO SCH (08:54)
[2018-04-20] MEDS: ATORVASTATIN 80 MG TAB PO SCH (08:54)
[2018-04-20] MEDS ORDERED: NON-FORMULARY DRUG (Levothyroxine Sodium [Synthroid] 175 MCG) PO SCH (09:00)
[2018-04-20] MEDS ORDERED: MONTELUKAST 10 MG TAB PO SCH (09:00)
[2018-04-20] MEDS ORDERED: ATORVASTATIN 80 MG TAB PO SCH (09:00)
[2018-04-20] MEDS ORDERED: FUROSEMIDE 20 MG TAB PO SCH (09:00)
[2018-04-20] MEDS ORDERED: CLOPIDOGREL 75 MG TAB PO SCH (09:00)
[2018-04-20] MEDS ORDERED: EZETIMIBE 10 MG TAB PO SCH (09:00)
[2018-04-20] MEDS: INSULIN PUMP MEAL BOLUS 1 UNIT MISC MISCELLANE SCH ×2 (09:03→12:35)
[2018-04-20 12:23] LABS: Glucose,Whole Blood 241 mg/dL (75-99)
[2018-04-20 15:41] VITALS: BP 116/66; PULSE 65; TEMP 98.3
[2018-04-21] MEDS ORDERED: metFORMIN 500 MG TAB PO SCH (21:00)
== END 2018-04-20 16:06 | disposition home or self-care (01) ==
LOC: CATHEP 11:26 → 3OBS 18:26 → CATHEP 04-20 16:06
PROVIDERS: ATTEND Internal Medicine Clinical Cardiac Electrophysiology
DX: Z45.02 Encounter for adjustment and management of automatic implantable cardiac defibrillator (principal); I25.5 Ischemic cardiomyopathy; I44.7 Left bundle-branch block, unspecified; I11.0 Hypertensive heart disease with heart failure; I50.22 Chronic systolic (congestive) heart failure; Z00.6 Encounter for examination for normal comparison and control in clinical research program; I25.118 Atherosclerotic heart disease of native coronary artery with other forms of angina pectoris; Z95.1 Presence of aortocoronary bypass graft; Z95.5 Presence of coronary angioplasty implant and graft; E78.5 Hyperlipidemia, unspecified; I73.9 Peripheral vascular disease, unspecified; E11.9 Type 2 diabetes mellitus without complications; I48.91 Unspecified atrial fibrillation; J45.909 Unspecified asthma, uncomplicated; E07.9 Disorder of thyroid, unspecified; E66.01 Morbid (severe) obesity due to excess calories; Z68.35 Body mass index [BMI] 35.0-35.9, adult; M54.30 Sciatica, unspecified side; K21.9 Gastro-esophageal reflux disease without esophagitis; I25.2 Old myocardial infarction; Z96.41 Presence of insulin pump (external) (internal); Z79.02 Long term (current) use of antithrombotics/antiplatelets; Z79.82 Long term (current) use of aspirin; Z79.890 Hormone replacement therapy; Z79.4 Long term (current) use of insulin; Z79.51 Long term (current) use of inhaled steroids; Z79.899 Other long term (current) drug therapy; Z88.8 Allergy status to other drugs, medicaments and biological substances; Z88.2 Allergy status to sulfonamides; Z87.440 Personal history of urinary (tract) infections
CPT/HCPCS: 94640; 33225; 33249; 33241; 85027; 83036; 71046; C1769 ×4; C1892 ×2; C1730; C1898; C1900; C1882; S0106 ×2; J2001; J0690 ×2; Q9966

== ENCOUNTER 2018-05-16 15:31 | Emergency (ER) | payer MEDICARE ==
[2018-05-16 15:43] VITALS: TEMP 98
[2018-05-16 15:44] LABS: Glucose,Whole Blood 64 mg/dL (75-99)
--- NOTE | 2018-05-16 15:48 | ED ---
General Adult HPI - General Chief complaint: Extremity Injury, Lower Stated complaint: Foot injury Time Seen by Provider: 05/16/18 15:42 Source: patient, EMS, RN notes reviewed Mode of arrival: ambulatory Limitations: no limitations - History of Present Illness Initial comments: Patient 67-year-old female presented to the emergency room today by EMS, the chief complaint of injury to the left ankle that occurred just prior to arrival. Patient does admit that she was walking on the grass when she rolled her left ankle. Does admit to pain to the ankle and states feels numb. Patient also admits to being a diabetic and she came into the ER was feeling that her sugar was dropping. She does have a insulin pump. She did turn off and was given something to eat and states she's feeling much better at this time. Patient denies any recent fever, chills, shortness of breath, chest pain, back pain, abdominal pain, nausea or vomiting, headaches or visual changes, or any other complaints. - Related Data Home Medications Medication Instructions Recorded Confirmed Aspirin [Adult Low Dose Aspirin EC] 162 mg PO BID 12/27/15 04/15/18 Budesonide-Formot 160-4.5 Mcg 2 puff INHALATION BID PRN 12/27/15 04/15/18 [Symbicort 160-4.5 Mcg Inhaler] Carvedilol [Coreg] 12.5 mg PO BID 12/27/15 04/15/18 Ezetimibe [Zetia] 10 mg PO DAILY 12/27/15 04/15/18 Furosemide [Lasix] 20 mg PO DAILY 12/27/15 04/15/18 Insulin Aspart [NovoLOG] 0 units SQ-PUMP CONTINUOUS 12/27/15 04/15/18 Montelukast [Singulair] 10 mg PO DAILY 12/27/15 04/15/18 busPIRone HCL [Buspar] 15 mg PO HS 12/27/15 04/15/18 fluvoxaMINE MALEATE [Luvox] 300 mg PO HS 12/27/15 04/15/18 metFORMIN HCL [Glucophage] 500 mg PO BID 12/27/15 04/15/18 Acetaminophen [Tylenol Extra 1,000 mg PO DIRECTED PRN 03/29/17 04/19/18 Strength] Albuterol Inhaler [Ventolin Hfa 2 puff INHALATION Q4-6H PRN 03/29/17 04/15/18 Inhaler] Ergocalciferol [Vitamin D2 50,000 unit PO PRUITT 03/29/17 04/19/18 (DRISDOL)] Levothyroxine Sodium [Synthroid] 175 mcg PO QAM 03/29/17 04/15/18 buPROPion SR [Wellbutrin SR] 150 mg PO BID 03/29/17 04/15/18 busPIRone HCL 30 mg PO QAM 03/29/17 04/15/18 traMADol HCL [Ultram] 100 mg PO TID PRN 03/29/17 04/19/18 Baclofen [Lioresal] 20 mg PO TID PRN 01/10/18 04/19/18 Sacubitril/Valsartan [Entresto 24 1 each PO BID 04/11/18 04/15/18 mg-26 mg Tablet] Previous Rx's Medication Instructions Recorded Clopidogrel [Plavix] 75 mg PO DAILY #30 tab 01/13/18 Nitroglycerin Sl Tabs [Nitrostat] 0.4 mg SUBLINGUAL Q5M PRN #25 tab 01/13/18 Rosuvastatin Calcium [Crestor] 40 mg PO DAILY #30 tab 01/13/18 Allergies Allergy/AdvReac Type Severity Reaction Status Date / Time metronidazole [From Flagyl] Allergy Rash/Hives Verified 05/16/18 15:43 Review of Systems ROS Statement: Those systems with pertinent positive or pertinent negative responses have been documented in the HPI. ROS Other: All systems not noted in ROS Statement are negative. Past Medical History Past Medical History: Asthma, Blood Disorder, Coronary Artery Disease (CAD), Chest Pain / Angina, Heart Failure, Diabetes Mellitus, Hyperlipidemia, Hypertension, Myocardial Infarction ([place]), Osteoarthritis (OA), Renal Disease, Skin Disorder, Supraventricular Tachycardia (SVT), Thyroid Disorder Additional Past Medical History / Comment(s): See Dr Villanueva's H&P. USES INSULIN PUMP, VITILIGO-FACE, ANEMIA, DIZZINESS OFF & ON, HERNIATED DISCS L1, L4-L5, PINCHED SCIATIC NERVE, OSTEOPENIA, HIATAL HERNIA W/ occ diarrhea/severe cramping/bloating/nausea. ELEV LFS, off/on pain LUE W/ tingling of hand, has neuropathy. Last Myocardial Infarction Date:: 01/09/18 History of Any Multi-Drug Resistant Organisms: None Reported Past Surgical History: AICD, Cardiac Ablation, Cholecystectomy, Coronary Bypass/ CABG, Heart Catheterization, Heart Catheterization With Stent, Hysterectomy, Pacemaker, Tonsillectomy Additional Past Surgical History / Comment(s): TRIPLE BYPASS 2013, EXC. CATARACTS WITH LENS IMPLANTS, DEFIBRILLATOR ST.ESME, 3 cardiac stents Past Anesthesia/Blood Transfusion Reactions: No Reported Reaction, Family History of Problems w/ Anesthesia Additional Past Anesthesia/Blood Transfusion Reaction / Comment(s): DAUGHTERS HAVE PONV. (HX nausea from iron infusions) Date of Last Stent Placement:: 2008 x2, 2012 x1, 01/2018 X1 Type of Cardiac Device: Permanent Pacemaker, AICD Device Placement Date:: 2011 Past Psychological History: Depression Smoking Status: Never smoker Past Alcohol Use History: None Reported Past Drug Use History: None Reported - Past Family History Mother Family Medical History: Thyroid Disorder Additional Family Medical History / Comment(s): HEART DISEASE, Father Family Medical History: Diabetes Mellitus Additional Family Medical History / Comment(s): HEART DISEASE Sister(s) Family Medical History: Cancer Additional Family Medical History / Comment(s): 1/2 sister-thyroid cancer General Exam - General Exam Comments Initial Comments: General: The patient is awake and alert, in no distress, and does not appear acutely ill. Neck: The neck is supple, there is no tenderness or JVD. Cardiovascular: There is a regular rate and rhythm. No murmur, rub or gallop is appreciated. Respiratory: Lungs are clear to auscultation, respirations are non-labored, breath sounds are equal. No wheezes, stridor, rales, or rhonchi. Musculoskeletal: Normal appearance left ankle no obvious deformity. Does have tenderness over the lateral malleolus. No other bony tenderness to left knee, ankle or foot. Pedal pulses 2+. Sensations are intact. Neurological: A&O x 3. CN II-XII intact, There are no obvious motor or sensory deficits. Coordination appears grossly intact. Speech is normal. Skin: Skin is warm and dry and no rashes or lesions are noted. Psychiatric: Normal mood and affect. Limitations: no limitations Course Vital Signs 05/16/18 05/16/18 15:40 16:42 Temperature 98.0 F Pulse Rate 85 66 Respiratory 20 18 Rate Blood Pressure 188/80 131/61 O2 Sat by Pulse 98 98 Oximetry Medical Decision Making - Medical Decision Making Patient's x-rays reviewed and does show a trimalleolar fracture of the left ankle. Patient's sensations are intact. Dorsal pedal pulse 2+. Patient's been splinted in a posterior short leg OCL. Neurovascular rechecked and intact. Patient will be given prescription for crutches and advised nonweightbearing following up with orthopedics tomorrow. - Lab Data Lab Results 05/16/18 05/16/18 Range/Units 15:34 16:16 POC Glucose (mg/dL) 64 L 112 H (75-99) mg/dL POC Glu Garage Manager ID Roberta Sheppard Kristen Disposition Clinical Impression: Trimalleolar fracture Disposition: TRANSFER TO PSYCH HOSP/UNIT Condition: Good Instructions: Ankle Fracture (ED) Additional Instructions: Please continue to ice elevate the affected area as discussed. Follow-up orthopedics tomorrow. Please stay nonweightbearing using crutches and splint placed until follow-up appointment. Please return to emergency room if the symptoms increase or worsen or for any other concerns. Is patient prescribed a controlled substance at d/c from ED?: No Referrals: Renata Burgess MD [Primary Care Provider] - 1-2 days Govind Marrero MD [STAFF PHYSICIAN] - 1-2 days Time of Disposition: 17:05
--- NOTE | 2018-05-16 16:22 | XR ---
EXAMINATION TYPE: XR ankle complete LT DATE OF EXAM: 05/16/2018 COMPARISON: NONE HISTORY: Pain FINDINGS: Three views of the ankle demonstrate displaced fractures involving the medial and lateral malleoli. S oft tissue edema is seen. Surgical clips in the soft tissues and vascular calcifications. Calcaneal s purs are noted. Ankle mortise demonstrates slight asymmetry along the medial margin.. IMPRESSION: 1. Displaced acute fractures involving the medial and lateral malleoli. 2. There is slight asymmetry of the medial margin of the ankle mortise correlate clinically.
[2018-05-16 16:38] LABS: Glucose,Whole Blood 112 mg/dL (75-99)
[2018-05-16 16:43] VITALS: BP 131/61; PULSE 66; RESP 18
[2018-05-16] MEDS ORDERED: traMADol 50 MG STARTER PACK 3 TAB BTL PO STA (17:01)
== END 2018-05-16 17:28 | disposition home or self-care (01) ==
LOC: EC 15:31
DX: S82.852A Displaced trimalleolar fracture of left lower leg, initial encounter for closed fracture (principal); J45.909 Unspecified asthma, uncomplicated; I25.119 Atherosclerotic heart disease of native coronary artery with unspecified angina pectoris; I11.0 Hypertensive heart disease with heart failure; I50.9 Heart failure, unspecified; E78.5 Hyperlipidemia, unspecified; I25.2 Old myocardial infarction; M19.90 Unspecified osteoarthritis, unspecified site; E11.40 Type 2 diabetes mellitus with diabetic neuropathy, unspecified; D64.9 Anemia, unspecified; F32.9 Major depressive disorder, single episode, unspecified; Z79.82 Long term (current) use of aspirin; Z79.51 Long term (current) use of inhaled steroids; Z79.4 Long term (current) use of insulin; Z79.899 Other long term (current) drug therapy; Z88.1 Allergy status to other antibiotic agents; Z95.1 Presence of aortocoronary bypass graft; Z95.5 Presence of coronary angioplasty implant and graft; Z95.810 Presence of automatic (implantable) cardiac defibrillator; W01.0XXA Fall on same level from slipping, tripping and stumbling without subsequent striking against object, initial encounter; Y93.01 Activity, walking, marching and hiking
CPT/HCPCS: 29515; 36415; 99283

== ENCOUNTER 2018-05-17 15:18 | Inpatient (IN) | payer MEDICARE ==
[2018-05-17] MEDS ORDERED: IBUPROFEN 400 MG TAB PO STA (17:15)
[2018-05-17 17:17] LABS: Basophils % (A) 0 %; Eosinophils # (A) 0.7 k/uL (0-0.7); Eosinophils % (A) 8 %; HGB 12.3 gm/dL (11.4-16.0); Lymphocytes # (A) 1.3 k/uL (1.0-4.8); Lymphocytes % (A) 16 %; MCH 29.8 pg (25.0-35.0); MCHC 32.4 g/dL (31.0-37.0); MCV 91.9 fL (80.0-100.0); Mean Platelet Volume 7.6; Monocytes # (A) 0.4 k/uL (0-1.0); Monocytes % (A) 5 %; Neutrophils # (A) 5.7 k/uL (1.3-7.7); Neutrophils % (A) 70 %; Platelet Count 206 k/uL (150-450); RBC 4.14 m/uL (3.80-5.40); WBC 8.2 k/uL (3.8-10.6)
[2018-05-17 17:30] LABS: Prothrombin Time 10.2 sec (9.0-12.0)
[2018-05-17 17:33] LABS: Albumin 4.3 g/dL (3.5-5.0); Calcium 10.1 mg/dL (8.4-10.2); Total Bilirubin 0.4 mg/dL (0.2-1.3); Total Protein 7.7 g/dL (6.3-8.2)
--- NOTE | 2018-05-17 19:03 | ED ---
General Adult HPI - General Chief complaint: Recheck/Abnormal Lab/Rx Stated complaint: Broken foot, sent by dr Diaz Source: patient, family Mode of arrival: wheelchair Limitations: no limitations - History of Present Illness Initial comments: 67-year-old female patient past medical history of cardiac disease, hypertension , diabetes mellitus to ED. Patient was diagnosed yesterday with a fractured left ankle. Patient was seen today in Dr. Garza's office for evaluation. Patient is currently too much pain to ambulate. Unable to complete her activities of daily life at home. Patient was sent from Dr. Garza to the ED in order for preop clearance, and admission onto the floor for pain control. Patient denies other complaints besides left ankle pain. Complaints denied include; chest pain, shortness of breath, headache, changes in vision, abdominal pain. Systemic: Pt denies fatigue, myalgia, fever/chills, rash. Pt denies weakness, night sweats, weight loss. Neuro: Pt denies headache, visual disturbances, syncope or pre-syncope. HEENT: Pt denies ocular discharge or irritation, otalgia, rhinorrhea, pharyngitis or notable lymphadenopathy. Cardiopulmonary: Pt denies chest pain, SOB, heart palpitations, dyspnea on exertion. Abdominal/GI: Pt denies abdominal pain, n/v/d. : Pt denies dysuria, burning w/ urination, frequency/urgency. Denies new onset urinary or bowel incontinence. MSK: Pt denies myalgia, loss of strength or function in extremities. - Related Data Home Medications Medication Instructions Recorded Confirmed Aspirin [Adult Low Dose Aspirin EC] 162 mg PO BID 12/27/15 05/17/18 Budesonide-Formot 160-4.5 Mcg 2 puff INHALATION BID PRN 12/27/15 05/17/18 [Symbicort 160-4.5 Mcg Inhaler] Carvedilol [Coreg] 12.5 mg PO BID 12/27/15 05/17/18 Ezetimibe [Zetia] 10 mg PO DAILY 12/27/15 05/17/18 Furosemide [Lasix] 20 mg PO DAILY 12/27/15 05/17/18 Montelukast [Singulair] 10 mg PO DAILY 12/27/15 05/17/18 fluvoxaMINE MALEATE [Luvox] 300 mg PO HS 12/27/15 05/17/18 metFORMIN HCL [Glucophage] 500 mg PO BID 12/27/15 05/17/18 Albuterol Inhaler [Ventolin Hfa 2 puff INHALATION Q4-6H PRN 03/29/17 05/17/18 Inhaler] Ergocalciferol [Vitamin D2 50,000 unit PO PRUITT 03/29/17 05/17/18 (DRISDOL)] buPROPion SR [Wellbutrin SR] 150 mg PO BID 03/29/17 05/17/18 busPIRone HCL 30 mg PO QAM 03/29/17 05/17/18 traMADol HCL [Ultram] 100 mg PO TID PRN 03/29/17 05/17/18 Baclofen [Lioresal] 20 mg PO TID PRN 01/10/18 05/17/18 Sacubitril/Valsartan [Entresto 24 1 tab PO BID 04/11/18 05/17/18 mg-26 mg Tablet] Insulin Aspart (For Pump) [NovoLOG 0.01 unit SQ-PUMP CONTINUOUS 05/17/18 (For Pump)] Levothyroxine Sodium [Synthroid] 150 mcg PO DAILY 05/17/18 05/17/18 busPIRone HCL 15 mg PO HS 05/17/18 05/17/18 Previous Rx's Medication Instructions Recorded Clopidogrel [Plavix] 75 mg PO DAILY #30 tab 01/13/18 Nitroglycerin Sl Tabs [Nitrostat] 0.4 mg SUBLINGUAL Q5M PRN #25 tab 01/13/18 Rosuvastatin Calcium [Crestor] 40 mg PO DAILY #30 tab 01/13/18 Allergies Allergy/AdvReac Type Severity Reaction Status Date / Time metronidazole [From Flagyl] Allergy Rash/Hives Verified 05/17/18 16:11 Review of Systems ROS Statement: Those systems with pertinent positive or pertinent negative responses have been documented in the HPI. ROS Other: All systems not noted in ROS Statement are negative. Past Medical History Past Medical History: Asthma, Blood Disorder, Coronary Artery Disease (CAD), Chest Pain / Angina, Heart Failure, Diabetes Mellitus, Hyperlipidemia, Hypertension, Myocardial Infarction (AK), Osteoarthritis (OA), Renal Disease, Skin Disorder, Supraventricular Tachycardia (SVT), Thyroid Disorder Additional Past Medical History / Comment(s): See Dr Villanueva's H&P. USES INSULIN PUMP, VITILIGO-FACE, ANEMIA, DIZZINESS OFF & ON, HERNIATED DISCS L1, L4-L5, PINCHED SCIATIC NERVE, OSTEOPENIA, HIATAL HERNIA W/ occ diarrhea/severe cramping/bloating/nausea. ELEV LFS, off/on pain LUE W/ tingling of hand, has neuropathy. Last Myocardial Infarction Date:: 2008, 01/09/18 History of Any Multi-Drug Resistant Organisms: None Reported Past Surgical History: AICD, Cardiac Ablation, Cholecystectomy, Coronary Bypass/ CABG, Heart Catheterization, Heart Catheterization With Stent, Hysterectomy, Pacemaker, Tonsillectomy Additional Past Surgical History / Comment(s): TRIPLE BYPASS 2012, EXC. CATARACTS WITH LENS IMPLANTS, DEFIBRILLATOR ST.ESME, 3 cardiac stents Past Anesthesia/Blood Transfusion Reactions: No Reported Reaction, Family History of Problems w/ Anesthesia Additional Past Anesthesia/Blood Transfusion Reaction / Comment(s): DAUGHTERS HAVE PONV. (HX nausea from iron infusions) Date of Last Stent Placement:: 2008 x2, 2012 x1, 01/2018 X1 Type of Cardiac Device: Permanent Pacemaker, AICD Device Placement Date:: 2011 Past Psychological History: Depression Smoking Status: Never smoker Past Alcohol Use History: None Reported Past Drug Use History: None Reported - Past Family History Mother Family Medical History: Thyroid Disorder Additional Family Medical History / Comment(s): HEART DISEASE, Father Family Medical History: Diabetes Mellitus Additional Family Medical History / Comment(s): HEART DISEASE Sister(s) Family Medical History: Cancer Additional Family Medical History / Comment(s): 1/2 sister-thyroid cancer General Exam - General Exam Comments Initial Comments: Constitutional: NAD, AOX3, Pt has pleasant affect. HEENT: NC/AT, trachea midline, neck supple, no lymphadenopathy. Posterior pharynx non erythematous, without exudates. External ears appear normal, without discharge. Mucous membranes moist. Eyes PERRLA, EOM intact. There is no scleral icterus. No pallor noted. Cardiopulmonary: RRR, no murmurs, rubs or gallops, no JVD noted. Lungs CTAB in anterior and posterior chen. No peripheral edema. Abdominal exam: Abdomen soft and non-distended. Abdomen non-tender to palpation in all 4 quadrants. Bowel sounds active in LLQ. No hepatosplenomegaly. Neuro: CN II-XII grossly intact. MSK: Left ankle splinted, Moshe wrap removed. Cap refill less than 2 seconds. Patient able to wiggle toes. Sensation intact. Dorsalis pedis pulse +2. Limitations: no limitations Course Vital Signs 05/17/18 05/17/18 05/17/18 15:29 17:33 18:49 Temperature 98.0 F 98.0 F Pulse Rate 68 61 65 Respiratory 20 18 18 Rate Blood Pressure 126/74 145/67 136/80 O2 Sat by Pulse 98 99 98 Oximetry Medical Decision Making - Medical Decision Making 67-year-old female patient with history of ankle fracture, sent to ED from Dr. Garza's office for admission for pain control and preop evaluation. Patient has no current complaints with exception of left ankle pain. Physical exam was benign, did not display any new pathologic findings. Initiation of lab work has begun including CMP, CBC. EKG displayed a ventricular paced rhythm. Chest x-ray displayed mild cardiogenic interstitial pulmonary edema. While in the process of being admitted to the floor, patient began complaining of left substernal chest pain that had lasted for approximately 5 minutes. Pt states that she is no longer having any chest pain. Patient has past history of extensive cardiovascular disease, stated that she is not having any pleuritic chest pain. Patient was at rest when this pain began. Investigation into this chest pain included a stat EKG, cardiac enzymes. The EKG did not display any ischemic changes, cardiac enzymes are negative. Patient admitted onto floor, will have cardiac enzymes repeated on floor. Continue to monitor for any new signs or symptoms of cardiovascular ischemia. Pt to have pulmonary edema managed on floor as necessary, pulse ox previously 98% on RA. Case discussed with Dr. Ibanez. - Lab Data Result diagrams: 05/17/18 17:01 05/17/18 17:01 Lab Results 05/17/18 05/17/18 05/17/18 Range/Units 17: 17: 17: WBC 8.2 (3.8-10.6) k/uL RBC 4.14 (3.80-5.40) m/uL Hgb 12.3 (11.4-16.0) gm/dL Hct 38.0 (34.0-46.0) % MCV 91.9 (80.0-100.0) fL MCH 29.8 (25.0-35.0) pg MCHC 32.4 (31.0-37.0) g/dL RDW 13.0 (11.5-15.5) % Plt Count 206 (150-450) k/uL Neutrophils % 70 % Lymphocytes % 16 % Monocytes % 5 % Eosinophils % 8 % Basophils % 0 % Neutrophils # 5.7 (1.3-7.7) k/uL Lymphocytes # 1.3 (1.0-4.8) k/uL Monocytes # 0.4 (0-1.0) k/uL Eosinophils # 0.7 (0-0.7) k/uL Basophils # 0.0 (0-0.2) k/uL PT 10.2 (9.0-12.0) sec INR 1.0 (<1.2) APTT (22.0-30.0) sec Sodium 142 (137-145) mmol/L Potassium 4.0 (3.5-5.1) mmol/L Chloride 108 H (98-107) mmol/L Carbon Dioxide 22 (22-30) mmol/L Anion Gap 12 mmol/L BUN 22 H (7-17) mg/dL Creatinine 1.13 H (0.52-1.04) mg/dL Est GFR (CKD-EPI)AfAm 59 (>60 ml/min/1.73 sqM) Est GFR (CKD-EPI)NonAf 51 (>60 ml/min/1.73 sqM) Glucose 130 H (74-99) mg/dL Calcium 10.1 (8.4-10.2) mg/dL Magnesium (1.6-2.3) mg/dL Total Bilirubin 0.4 (0.2-1.3) mg/dL AST 41 H (14-36) U/L ALT 26 (9-52) U/L Alkaline Phosphatase 102 (38-126) U/L Total Creatine Kinase (30-135) U/L CK-MB (CK-2) (0.0-2.4) ng/mL CK-MB (CK-2) Rel Index Troponin I (0.000-0.034) ng/mL Total Protein 7.7 (6.3-8.2) g/dL Albumin 4.3 (3.5-5.0) g/dL 05/17/18 05/17/18 05/17/18 Range/Units 17:01 17:01 17:01 WBC (3.8-10.6) k/uL RBC (3.80-5.40) m/uL Hgb (11.4-16.0) gm/dL Hct (34.0-46.0) % MCV (80.0-100.0) fL MCH (25.0-35.0) pg MCHC (31.0-37.0) g/dL RDW (11.5-15.5) % Plt Count (150-450) k/uL Neutrophils % % Lymphocytes % % Monocytes % % Eosinophils % % Basophils % % Neutrophils # (1.3-7.7) k/uL Lymphocytes # (1.0-4.8) k/uL Monocytes # (0-1.0) k/uL Eosinophils # (0-0.7) k/uL Basophils # (0-0.2) k/uL PT (9.0-12.0) sec INR (<1.2) APTT 20.3 L (22.0-30.0) sec Sodium (137-145) mmol/L Potassium (3.5-5.1) mmol/L Chloride (98-107) mmol/L Carbon Dioxide (22-30) mmol/L Anion Gap mmol/L BUN (7-17) mg/dL Creatinine (0.52-1.04) mg/dL Est GFR (CKD-EPI)AfAm (>60 ml/min/1.73 sqM) Est GFR (CKD-EPI)NonAf (>60 ml/min/1.73 sqM) Glucose (74-99) mg/dL Calcium (8.4-10.2) mg/dL Magnesium 1.8 (1.6-2.3) mg/dL Total Bilirubin (0.2-1.3) mg/dL AST (14-36) U/L ALT (9-52) U/L Alkaline Phosphatase (38-126) U/L Total Creatine Kinase 57 (30-135) U/L CK-MB (CK-2) 0.4 (0.0-2.4) ng/mL CK-MB (CK-2) Rel Index 0.7 Troponin I <0.012 (0.000-0.034) ng/mL Total Protein (6.3-8.2) g/dL Albumin (3.5-5.0) g/dL - EKG Data -: EKG Interpreted by Me EKG Comments: Ventricular paced rhythm. Ventricular rate 63, QRS 142, QTC 462, QTc 472. No concerns for acute ischemia. Disposition Clinical Impression: Ankle fracture, Pulmonary edema cardiac cause Disposition: ADMITTED IP TO THIS HOSP Condition: Good Is patient prescribed a controlled substance at d/c from ED?: No Referrals: Renata Burgess MD [Primary Care Provider] - 1-2 days Fred Garza MD [Medical Doctor] - 1-2 days
--- NOTE | 2018-05-17 19:21 | XR ---
EXAMINATION: XR chest 2V DATE AND TIME: 05/17/2018 5:40 PM CLINICAL INDICATION: Pain TECHNIQUE: AP and lateral COMPARISON: Radiographs 04/20/2018 FINDINGS: Cardiac pacemaker sternal sutures and mediastinal clips noted. The lungs demonstrate mild silhouetting of the pulmonary vasculature particularly within the lung bas es, by a fine reticular pattern of increased density. The findings suggest mild interstitial phase pu lmonary edema. The pleural spaces are negative. The cardiac silhouette is mild moderately enlarged. The remainder of the mediastinal silhouette is unremarkable. The skeletal structures and soft tissues are negative for acute findings. IMPRESSION: Findings suggest mild interstitial phase cardiogenic pulmonary edema.
[2018-05-17 20:00] LABS: Creatine Kinase 57 U/L (30-135)
[2018-05-17 20:13] LABS: Creatine Kinase MB 0.4 ng/mL (0.0-2.4); Troponin I <0.012 ng/mL (0.000-0.034)
[2018-05-17] MEDS ORDERED: NALOXONE 0.4 MG/ML 1 ML VIAL IV PRN (20:39)
--- NOTE | 2018-05-17 20:50 | ED ---
Medical Decision Making - Lab Data Result diagrams: 05/17/18 17:01 05/17/18 17:01 Lab Results 05/17/18 05/17/18 05/17/18 Range/Units 17:01 17: 17:01 WBC 8.2 (3.8-10.6) k/uL RBC 4.14 (3.80-5.40) m/uL Hgb 12.3 (11.4-16.0) gm/dL Hct 38.0 (34.0-46.0) % MCV 91.9 (80.0-100.0) fL MCH 29.8 (25.0-35.0) pg MCHC 32.4 (31.0-37.0) g/dL RDW 13.0 (11.5-15.5) % Plt Count 206 (150-450) k/uL Neutrophils % 70 % Lymphocytes % 16 % Monocytes % 5 % Eosinophils % 8 % Basophils % 0 % Neutrophils # 5.7 (1.3-7.7) k/uL Lymphocytes # 1.3 (1.0-4.8) k/uL Monocytes # 0.4 (0-1.0) k/uL Eosinophils # 0.7 (0-0.7) k/uL Basophils # 0.0 (0-0.2) k/uL PT 10.2 (9.0-12.0) sec INR 1.0 (<1.2) APTT (22.0-30.0) sec Sodium 142 (137-145) mmol/L Potassium 4.0 (3.5-5.1) mmol/L Chloride 108 H (98-107) mmol/L Carbon Dioxide 22 (22-30) mmol/L Anion Gap 12 mmol/L BUN 22 H (7-17) mg/dL Creatinine 1.13 H (0.52-1.04) mg/dL Est GFR (CKD-EPI)AfAm 59 (>60 ml/min/1.73 sqM) Est GFR (CKD-EPI)NonAf 51 (>60 ml/min/1.73 sqM) Glucose 130 H (74-99) mg/dL Calcium 10.1 (8.4-10.2) mg/dL Magnesium (1.6-2.3) mg/dL Total Bilirubin 0.4 (0.2-1.3) mg/dL AST 41 H (14-36) U/L ALT 26 (9-52) U/L Alkaline Phosphatase 102 (38-126) U/L Total Creatine Kinase (30-135) U/L CK-MB (CK-2) (0.0-2.4) ng/mL CK-MB (CK-2) Rel Index Troponin I (0.000-0.034) ng/mL Total Protein 7.7 (6.3-8.2) g/dL Albumin 4.3 (3.5-5.0) g/dL 05/17/18 05/17/18 05/17/18 Range/Units 17:01 17:01 17:01 WBC (3.8-10.6) k/uL RBC (3.80-5.40) m/uL Hgb (11.4-16.0) gm/dL Hct (34.0-46.0) % MCV (80.0-100.0) fL MCH (25.0-35.0) pg MCHC (31.0-37.0) g/dL RDW (11.5-15.5) % Plt Count (150-450) k/uL Neutrophils % % Lymphocytes % % Monocytes % % Eosinophils % % Basophils % % Neutrophils # (1.3-7.7) k/uL Lymphocytes # (1.0-4.8) k/uL Monocytes # (0-1.0) k/uL Eosinophils # (0-0.7) k/uL Basophils # (0-0.2) k/uL PT (9.0-12.0) sec INR (<1.2) APTT 20.3 L (22.0-30.0) sec Sodium (137-145) mmol/L Potassium (3.5-5.1) mmol/L Chloride (98-107) mmol/L Carbon Dioxide (22-30) mmol/L Anion Gap mmol/L BUN (7-17) mg/dL Creatinine (0.52-1.04) mg/dL Est GFR (CKD-EPI)AfAm (>60 ml/min/1.73 sqM) Est GFR (CKD-EPI)NonAf (>60 ml/min/1.73 sqM) Glucose (74-99) mg/dL Calcium (8.4-10.2) mg/dL Magnesium 1.8 (1.6-2.3) mg/dL Total Bilirubin (0.2-1.3) mg/dL AST (14-36) U/L ALT (9-52) U/L Alkaline Phosphatase (38-126) U/L Total Creatine Kinase 57 (30-135) U/L CK-MB (CK-2) 0.4 (0.0-2.4) ng/mL CK-MB (CK-2) Rel Index 0.7 Troponin I <0.012 (0.000-0.034) ng/mL Total Protein (6.3-8.2) g/dL Albumin (3.5-5.0) g/dL - EKG Data -: EKG Interpreted by Me EKG Comments: Ventricular paced rhythm. Ventricular rate 61, ME interval 102, QRS 150, QTC 468, QTC 471. No signs of acute ischemia. Disposition Clinical Impression: Ankle fracture, Pulmonary edema cardiac cause Disposition: ADMITTED IP TO THIS HOSP Condition: Good Referrals: Renata Burgess MD [Primary Care Provider] - 1-2 days Fred Garza MD [Medical Doctor] - 1-2 days
[2018-05-17 22:02] LABS: Glucose,Whole Blood 90 mg/dL (75-99)
[2018-05-17 23:27] LABS: Creatine Kinase 39 U/L (30-135)
[2018-05-17 23:38] LABS: Creatine Kinase MB 0.3 ng/mL (0.0-2.4); Troponin I <0.012 ng/mL (0.000-0.034)
[2018-05-18] MEDS ORDERED: SYMBICORT 160-4.5 MCG INHALER INHALATION PRN (00:02)
[2018-05-18] MEDS ORDERED: Insulin Aspart (For Pump) 100 UNIT/ML VIAL SQ-PUMP SCH (02:00)
[2018-05-18 05:58] LABS: Creatine Kinase 35 U/L (30-135)
[2018-05-18] MEDS: LEVOTHYROXINE 75 MCG TAB PO SCH (06:10)
[2018-05-18 06:11] LABS: Creatine Kinase MB 0.3 ng/mL (0.0-2.4); Troponin I <0.012 ng/mL (0.000-0.034)
[2018-05-18 07:05] LABS: Glucose,Whole Blood 137 mg/dL (75-99)
[2018-05-18] MEDS ORDERED: EZETIMIBE 10 MG TAB PO SCH ×2 (09:00→21:00)
[2018-05-18] MEDS ORDERED: BACLOFEN 10 MG TAB PO PRN ×2 (09:00→10:35)
[2018-05-18] MEDS ORDERED: ATORVASTATIN 80 MG TAB PO SCH (09:00)
[2018-05-18] MEDS: buPROPion SR 150 MG TABLET.ER PO SCH ×2 (09:04→21:37)
[2018-05-18] MEDS: metFORMIN 500 MG TAB PO SCH ×2 (09:04→21:37)
[2018-05-18] MEDS: CARVEDILOL 12.5 MG TAB PO SCH ×2 (09:05→16:56)
[2018-05-18] MEDS: SACUBITRIL/VALSARTAN 24 MG-26 MG TABLET PO SCH ×2 (09:05→21:37)
[2018-05-18] MEDS: MONTELUKAST 10 MG TAB PO SCH (09:05)
[2018-05-18] MEDS: FUROSEMIDE 20 MG TAB PO SCH (09:05)
[2018-05-18] MEDS: ASPIRIN 81 MG PO SCH ×2 (09:05→21:37)
[2018-05-18] MEDS ORDERED: ALBUTEROL NEBULIZED 2.5 MG/3 ML INHALATION PRN (10:35)
[2018-05-18] MEDS ORDERED: NITROGLYCERIN SL TABS 0.4 MG TAB SUBLINGUAL PRN (10:35)
[2018-05-18 11:53] LABS: Glucose,Whole Blood 179 mg/dL (75-99)
[2018-05-18] MEDS ORDERED: INSULIN PUMP ACTIVE INSULIN 1 EACH MISC MISCELLANE PRN (11:56)
[2018-05-18] MEDS ORDERED: INSULIN PUMP BASAL RATES 1 EACH MISC MISCELLANE PRN (11:56)
[2018-05-18] MEDS ORDERED: INSULIN PUMP TARGET GLUCOSE 1 EACH MISC MISCELLANE PRN (11:56)
[2018-05-18] MEDS ORDERED: INSULIN ASPART 100 UNIT/ML 1 ML 10 ML VIAL SQ PRN (11:56)
[2018-05-18] MEDS ORDERED: INSPUCOR MISCELLANE PRN (11:56)
--- NOTE | 2018-05-18 12:55 | P.HPIM ---
History of Present Illness H&P Date: 05/18/18 Chief Complaint: Left ankle fracture This is a 67-year-old female patient of Dr. Burgess with past medical history for moderate persistent asthma, diabetes mellitus type 2 with diabetic neuropathy on insulin pump, chronic kidney disease stage III, hypothyroidism, hypertension, coronary artery disease status post myocardial infarction with coronary stent in 2008, coronary artery bypass graft in 2012 for 3 vessels, January 2018 status post stent to circumflex currently on Plavix, history of severe cardiomyopathy status post single-chamber AICD upgraded to biventricular AICD placement on April 19, cardiac ablation for SVT, osteoarthritis, recurrent depression. Patient states that on Wednesday afternoon she had stepped on the [place] and then took a step down and heard a snap in her left ankle. She states she had to crawl to the car to use her phone to call for EMS she was then transported to [facility] emergency center for evaluation. Left ankle x- ray showed displaced acute fracture involving the medial and lateral malleoli. Slight asymmetry of the medial margin of the ankle more cheese correlate clinically. Patient was discharged home with plan to follow-up with orthopedics in 1-2 days, nonweightbearing using crutches and splint. Patient saw Dr. Garza yesterday and was sent in to [facility] emergency center for evaluation. Patient has been unable to do even transfers as she is not using her left arm due to the recent upgrade on her AICD done on April 19. She states the steps into her home and ulnar doorways are too narrow for a walker or wheelchair. She also has a known sciatica problem on the right leg and with increased weightbearing on the right leg this is caused to worsen. She saw Dr. Garza yesterday and was sent back to [facility] emergency center for admission. CBC is normal, BUN 22 and creatinine 1.13, blood sugar 1:30. Patient is on insulin pump. Patient was admitted to the [facility] surge floor and we have asked for consults with orthopedics to determine the surgery and cardiology to clear her for surgery due to recent stent in January. Patient has been continued on Plavix. Review of Systems All systems: negative Constitutional: Reports fatigue, Reports weakness, Denies anorexia, Denies fever , Denies lethargy, Denies malaise, Denies poor appetite Eyes: denies blurred vision, denies pain Ears, nose, mouth and throat: Denies dysphagia, Denies epistaxis, Denies headache, Denies hoarseness, Denies sore throat, Denies vertigo Cardiovascular: Denies chest pain, Denies decreased exercise tolerance, Denies dyspnea on exertion, Denies edema, Denies leg edema, Denies lightheadedness, Denies shortness of breath, Denies syncope Respiratory: Denies cough, Denies cough with sputum, Denies dyspnea, Denies excessive sputum, Denies hemoptysis, Denies home oxygen, Denies wheezing Gastrointestinal: Denies abdominal pain, Denies diarrhea, Denies loss of appetite, Denies melena, Denies nausea, Denies vomiting Genitourinary: Denies dysuria, Denies hematuria Musculoskeletal: Reports gait dysfunction, Denies frequent falls, Denies myalgias Integumentary: Denies darkening of skin, Denies pruritus, Denies rash, Denies wounds Neurological: Reports gait dysfunction, Reports weakness, Denies change in mentation, Denies confusion, Denies numbness Psychiatric: Denies anxiety, Denies depression Endocrine: Denies fatigue, Denies weight change Past Medical History Past Medical History: Asthma, Blood Disorder, Coronary Artery Disease (CAD), Chest Pain / Angina, Heart Failure, Diabetes Mellitus, Hyperlipidemia, Hypertension, Myocardial Infarction (IA), Osteoarthritis (OA), Renal Disease, Skin Disorder, Supraventricular Tachycardia (SVT), Thyroid Disorder Additional Past Medical History / Comment(s): See Dr Villanueva's H&P. USES INSULIN PUMP, VITILIGO-FACE, ANEMIA, DIZZINESS OFF & ON, HERNIATED DISCS L1, L2,L3, L4-L5, PINCHED SCIATIC NERVE, OSTEOPENIA, HIATAL HERNIA W/ occ diarrhea/ severe cramping/bloating/nausea. ELEV LFS, off/on pain LUE W/ tingling of hand , has neuropathy. Last Myocardial Infarction Date:: June 2009, 01/09/18 History of Any Multi-Drug Resistant Organisms: None Reported Past Surgical History: AICD, Cardiac Ablation, Cholecystectomy, Coronary Bypass/ CABG, Heart Catheterization, Heart Catheterization With Stent, Hysterectomy, Pacemaker, Tonsillectomy Additional Past Surgical History / Comment(s): TRIPLE BYPASS Marach 2012, EXC. CATARACTS WITH LENS IMPLANTS, DEFIBRILLATOR ST.ESME, 3 cardiac stents, ablation 1994 Past Anesthesia/Blood Transfusion Reactions: No Reported Reaction, Family History of Problems w/ Anesthesia Additional Past Anesthesia/Blood Transfusion Reaction / Comment(s): DAUGHTERS HAVE PONV. (HX nausea from iron infusions) Date of Last Stent Placement:: 2008 x2, 01/2018 X1 Type of Cardiac Device: Permanent Pacemaker, AICD Device Placement Date:: 2011 Past Psychological History: Depression Smoking Status: Never smoker Past Alcohol Use History: None Reported Additional Past Alcohol Use History / Comment(s): Patient is a lifelong nonsmoker, no illicit drug use, no alcohol use. She lives at home with her . Past Drug Use History: None Reported - Past Family History Mother Family Medical History: Thyroid Disorder Additional Family Medical History / Comment(s): HEART DISEASE, Father Family Medical History: Diabetes Mellitus Additional Family Medical History / Comment(s): HEART DISEASE Sister(s) Family Medical History: Cancer Additional Family Medical History / Comment(s): 1/2 sister-thyroid cancer Medications and Allergies Home Medications Medication Instructions Recorded Confirmed Type Aspirin [Adult Low Dose Aspirin EC] 162 mg PO BID 12/27/15 05/17/18 History Budesonide-Formot 160-4.5 Mcg 2 puff INHALATION BID PRN 12/27/15 05/17/18 History [Symbicort 160-4.5 Mcg Inhaler] Carvedilol [Coreg] 12.5 mg PO BID 12/27/15 05/17/18 History Ezetimibe [Zetia] 10 mg PO DAILY 12/27/15 05/17/18 History Furosemide [Lasix] 20 mg PO DAILY 12/27/15 05/17/18 History Montelukast [Singulair] 10 mg PO DAILY 12/27/15 05/17/18 History fluvoxaMINE MALEATE [Luvox] 300 mg PO HS 12/27/15 05/17/18 History metFORMIN HCL [Glucophage] 500 mg PO BID 12/27/15 05/17/18 History Albuterol Inhaler [Ventolin Hfa 2 puff INHALATION Q4-6H PRN 03/29/17 05/17/18 History Inhaler] Ergocalciferol [Vitamin D2 50,000 unit PO PRUITT 03/29/17 05/17/18 History (DRISDOL)] buPROPion SR [Wellbutrin SR] 150 mg PO BID 03/29/17 05/17/18 History busPIRone HCL 30 mg PO QAM 03/29/17 05/17/18 History traMADol HCL [Ultram] 100 mg PO TID PRN 03/29/17 05/17/18 History Baclofen [Lioresal] 20 mg PO TID PRN 01/10/18 05/17/18 History Clopidogrel [Plavix] 75 mg PO DAILY #30 tab 01/13/18 05/17/18 Rx Nitroglycerin Sl Tabs [Nitrostat] 0.4 mg SUBLINGUAL Q5M PRN #25 tab 01/13/1812/27 Rx Rosuvastatin Calcium [Crestor] 40 mg PO DAILY #30 tab 01/13/18 05/17/18 Rx Sacubitril/Valsartan [Entresto 24 1 tab PO BID 04/11/18 05/17/18 History mg-26 mg Tablet] Insulin Aspart (For Pump) [NovoLOG 0.01 unit SQ-PUMP CONTINUOUS 05/17/18 History (For Pump)] Levothyroxine Sodium [Synthroid] 150 mcg PO DAILY 05/17/18 05/17/18 History busPIRone HCL 15 mg PO HS 05/17/18 05/17/18 History Allergies Allergy/AdvReac Type Severity Reaction Status Date / Time metronidazole [From Flagyl] Allergy Rash/Hives Verified 05/17/18 16:11 Physical Exam Vitals: Vital Signs Temp Pulse Pulse Resp BP BP Pulse Ox 05/18/18 07:00 97.8 F 67 138/70 98 05/17/18 21:36 98.3 F 61 16 122/74 98 05/17/18 21:08 97.8 F 65 18 124/55 98 05/17/18 18:49 98.0 F 65 18 136/80 98 05/17/18 17:33 61 18 145/67 99 05/17/18 15:29 98.0 F 68 20 126/74 98 Intake and Output 05/17/18 05/18/18 05/18/18 22:59 06:59 14:59 Other: # Voids 1 0 Weight 91.626 kg 92.079 kg Gen: This is a 67-year-old female. She is sitting up in bed and appears to be comfortable. Patient does appear to be quite anxious. HEENT: Head is atraumatic, normocephalic. Pupils equal, round. Sclerae is anicteric. Conjunctiva pink. Mucous members of the mouth are moist. NECK: Supple. No JVD. No lymphadenopathy. No thyromegaly. LUNGS: Clear to auscultation. No wheezes or rhonchi. No intercostal retractions. HEART: Regular rate and rhythm. No murmur. Pacemaker to the left anterior chest wall ABDOMEN: Soft. Bowel sounds are present. No masses. No tenderness. EXTREMITIES: No pedal edema. No calf tenderness. Patient has a simple splint of the left lower leg. No open wounds are noted. Dorsalis pedis is palpable bilaterally, +2. NEUROLOGICAL: Patient is awake, alert and oriented x3. Cranial nerves 2 through 12 are grossly intact. Results CBC & Chem 7: 05/17/18 17:05/17/18 17:01 Labs: Abnormal Lab Results - Last 24 Hours (Table) 05/17/18 05/17/18 05/18/18 Range/Units 17: 17:01 06:53 APTT 20.3 L (22.0-30.0) sec Chloride 108 H (98-107) mmol/L BUN 22 H (7-17) mg/dL Creatinine 1.13 H (0.52-1.04) mg/dL Glucose 130 H (74-99) mg/dL POC Glucose (mg/dL) 137 H (75-99) mg/dL AST 41 H (14-36) U/L Thrombosis Risk Factor Assmnt - DVT/VTE Prophylaxis DVT/VTE Prophylaxis: Pharmacologic Prophylaxis ordered - Choose All That Apply Any of the Below Risk Factors Present?: Yes Each Risk Factor Represents 2 Points: Age 61-74 years Each Risk Factor Represents 5 Points: Hip, pelvis, or leg fracture (< 1 month) Thrombosis Risk Factor Assessment Total Risk Factor Score: 7 Thrombosis Risk Factor Assessment Level: High Risk Assessment and Plan Plan: 1. Left ankle fracture requiring surgical intervention. Consult will be placed with orthopedics. Patient is currently nonweightbearing on the left side. Patient will need PT and OT evaluations. Requesting cardiology clearance for surgery. Incentive spirometry to reduce incidence of atelectasis and hospital-acquired pneumonia. 2. Diabetes mellitus type 2, currently on insulin pump. Insulin pump will be continued. nurse educator to meet with patient. 3. Severe cardiomyopathy status post upgrade AICD to biventricular done on April 19. Patient to be nonweightbearing on the left upper extremity. Cardiology consult. Continue Entresto. 4. Coronary artery disease status post 3 vessel CABG, stents. Patient is currently on Plavix, aspirin, statin. Cardiology consult requested. 5. Chronic kidney disease stage III, stable. Monitor renal function, avoid nephrotoxic agents. 6. Hypertension. Continue Coreg 12.5 mg twice daily, Entresto 24/26 mg. 7. Moderate persistent asthma, stable without exacerbation. Continue Ventolin inhaler 2 puffs every 4-6 hours as needed, Symbicort 2 puffs twice daily. 8. Hypothyroidism continue levothyroxine 150 mg daily. 9. Recurrent depression. Continue BuSpar 30 g in the morning 50 mg at bedtime , Wellbutrin 150 mg twice daily. 10. DVT prophylaxis. 11. GI prophylaxis. Pepcid. Patient will be admitted to the hospital for a minimum of 2 night stay. Discharge plan: Subacute rehab Impression and plan of care have been directed as dictated by the signing physician. Stacey Tony nurse practitioner acting as scribe for signing physician.
--- NOTE | 2018-05-18 13:52 | P.CRDCN ---
Addendum entered and electronically signed by So Juan NP-C 05/18/18 15 :11: Spoke with Yolanda GATICA from [facility] states surgery will not be performed for 2 weeks. Plavix should be continued until 5 days prior to surgery and resume immediately thereafter. Original Note: <So Juan - Last Filed: 05/18/18 13:38> History of Present Illness History of present illness: This is a pleasant 67-year-old female past medical history significant for coronary artery disease status post bypass grafting, ischemic cardiomyopathy, biv ICD in place, hypertension, dyslipidemia, peripheral vascular disease and diabetes mellitus. 04/19/2018 she underwent an upgrade of her ICD from single- chamber to biv. In January 2018 she underwent cardiac catheterization. She has a MARTIN to LAD, SVG to OM1 and SVG to RCA. She was found to have critical disease involving the distal left main and proximal left circumflex. She underwent intervention of the left circumflex at that time and has been maintained on dual antiplatelet therapy since. On Wednesday she suffered a fall in her driveway while bringing in the garbage cans. She came to the hospital for evaluation and was found to have a displaced fracture of the left lateral malleoli. She was sent home to follow-up as an outpatient with Dr. Garza. She saw him in the office yesterday and was complaining she was unable to maintain at home perform her ADLs secondary to increased weakness and inability to move around with ankle fracture. She was sent into the hospital as a direct admit for recommendations regarding going for surgery secondary to being on dual antiplatelet therapy. She denies symptoms of chest pain, shortness of breath, dizziness or palpitations. She denies PND or orthopnea. She has been purchased pitting and cardiac rehabilitation since angioplasty in January. She does complain of feeling increasingly tired and weak. EKG reveals paced rhythm. Chest x-ray suggests mild interstitial pulmonary edema. Laboratory data reviewed, cardiac enzymes negative 3, hemoglobin 12.3, platelets 26, sodium 142, potassium 4, creatinine 1.13, magnesium 1.8. Current cardiac medications include entresto 24/26 mg BID, rosuvastatin 40 mg daily, Lasix 20 mg daily, Plavix 75 mg daily, carvedilol 12.5 mg twice a day and aspirin 162 mg twice a day. At the time of my exam: CONSTITUTIONAL: Denies fever. Denies chills. EYES: Denies blurred vision. Denies vision changes. Denies eye pain. EARS, NOSE, MOUTH & THROAT: Denies headache. Denies sore throat. Denies ear pain. CARDIOVASCULAR: Denies chest pain. Denies shortness of breath. Denies orthopnea. Denies PND. Denies palpitations. RESPIRATORY: Denies cough. GASTROINTESTINAL: Denies abdominal pain. Denies diarrhea. Denies constipation. Denies nausea. Denies vomiting. MUSCULOSKELETAL: Complains of pain to the left lower extremity. INTEGUMENTARY: Denies pruitis. Denies rash. NEUROLOGIC: Denies numbness. Denies tingling. Complains of weakness. PSYCHIATRIC: Denies anxiety. Denies depression. ENDOCRINE: Denies fatigue. Denies weight change. Denies polydipsia. Denies polyurina. GENITOURINARY: Denies burning, hematuria or urgency with micturation. HEMATOLOGIC: Denies history of anemia. Denies bleeding. Blood pressure 138/70 heart rate 67 afebrile maintaining oxygen saturation on room air GENERAL: This is a 67-year-old female in no apparent distress at the time of my examination. HEENT: Head is atraumatic, normocephalic. Pupils are equal, round. Sclerae anicteric. Conjunctivae are clear. Mucous membranes of the mouth are moist. Neck is supple. There is no jugular venous distention. No carotid bruit is heard. LUNGS: Clear to auscultation no wheezes, rales or rhonchi. No chest wall tenderness is noted on palpation or with deep breathing. HEART: Regular rate and rhythm without murmurs, rubs or gallops. S1 and S2 heard. ABDOMEN: Soft, nontender. Bowel sounds are heard. No organomegaly noted. EXTREMITIES: No evidence of peripheral edema and no calf tenderness noted. Mobilizing device in place to the left lower extremity. VASCULAR: Radial and dorsalis pedis pulses palpated, no evidence of clubbing. NEUROLOGIC: Patient is awake, alert and oriented x3. ASSESSMENT Acute displaced fracture involving the medial lateral malleoli Severe ischemic cardiomyopathy status post BiV ICD upgrade History of coronary artery disease status post bypass grafting with recent angioplasty of the circumflex January 2018 currently maintained on dual antiplatelet therapy Hypertension Dyslipidemia Peripheral vascular disease Diabetes mellitus PLAN From a cardiac perspective we recommend the benefit outweighs the risk of holding Plavix and proceeding with surgery as soon as Wednesday. Plavix should be resumed as soon as possible postoperatively. Plavix should not be held for more than 3-5 days. The risk of stopping the Plavix has been explained in great detail to the patient and she understands. This also has been communicated to Dr. Garza's PA, Yolanda Cabello. Continue all other cardiac medications as previously ordered. We will consult to follow closely and make recommendations accordingly. Thank you kindly for this consultation. Nurse Practitioner note has been reviewed, I agree with a documented findings and plan of care. Patient was seen and examined. Past Medical History Past Medical History: Asthma, Blood Disorder, Coronary Artery Disease (CAD), Chest Pain / Angina, Heart Failure, Diabetes Mellitus, Hyperlipidemia, Hypertension, Myocardial Infarction (VA), Osteoarthritis (OA), Renal Disease, Skin Disorder, Supraventricular Tachycardia (SVT), Thyroid Disorder Additional Past Medical History / Comment(s): See Dr Villanueva's H&P. USES INSULIN PUMP, VITILIGO-FACE, ANEMIA, DIZZINESS OFF & ON, HERNIATED DISCS L1, L2,L3, L4-L5, PINCHED SCIATIC NERVE, OSTEOPENIA, HIATAL HERNIA W/ occ diarrhea/ severe cramping/bloating/nausea. ELEV LFS, off/on pain LUE W/ tingling of hand , has neuropathy. Last Myocardial Infarction Date:: June 2009, 01/09/18 History of Any Multi-Drug Resistant Organisms: None Reported Past Surgical History: AICD, Cardiac Ablation, Cholecystectomy, Coronary Bypass/ CABG, Heart Catheterization, Heart Catheterization With Stent, Hysterectomy, Pacemaker, Tonsillectomy Additional Past Surgical History / Comment(s): TRIPLE BYPASS Marach 2012, EXC. CATARACTS WITH LENS IMPLANTS, DEFIBRILLATOR ST.ESME, 3 cardiac stents, ablation 1994 Past Anesthesia/Blood Transfusion Reactions: No Reported Reaction, Family History of Problems w/ Anesthesia Additional Past Anesthesia/Blood Transfusion Reaction / Comment(s): DAUGHTERS HAVE PONV. (HX nausea from iron infusions) Date of Last Stent Placement:: 2008 x2, 01/2018 X1 Type of Cardiac Device: Permanent Pacemaker, AICD Device Placement Date:: 2011 Past Psychological History: Depression Smoking Status: Never smoker Past Alcohol Use History: None Reported Additional Past Alcohol Use History / Comment(s): Patient is a lifelong nonsmoker, no illicit drug use, no alcohol use. She lives at home with her . Past Drug Use History: None Reported - Past Family History Mother Family Medical History: Thyroid Disorder Additional Family Medical History / Comment(s): HEART DISEASE, Father Family Medical History: Diabetes Mellitus Additional Family Medical History / Comment(s): HEART DISEASE Sister(s) Family Medical History: Cancer Additional Family Medical History / Comment(s): 1/2 sister-thyroid cancer Medications and Allergies Home Medications Medication Instructions Recorded Confirmed Type Aspirin [Adult Low Dose Aspirin EC] 162 mg PO BID 12/27/15 05/17/18 History Budesonide-Formot 160-4.5 Mcg 2 puff INHALATION BID PRN 12/27/15 05/17/18 History [Symbicort 160-4.5 Mcg Inhaler] Carvedilol [Coreg] 12.5 mg PO BID 12/27/15 05/17/18 History Ezetimibe [Zetia] 10 mg PO DAILY 12/27/15 05/17/18 History Furosemide [Lasix] 20 mg PO DAILY 12/27/15 05/17/18 History Montelukast [Singulair] 10 mg PO DAILY 12/27/15 05/17/18 History fluvoxaMINE MALEATE [Luvox] 300 mg PO HS 12/27/15 05/17/18 History metFORMIN HCL [Glucophage] 500 mg PO BID 12/27/15 05/17/18 History Albuterol Inhaler [Ventolin Hfa 2 puff INHALATION Q4-6H PRN 03/29/17 05/17/18 History Inhaler] Ergocalciferol [Vitamin D2 50,000 unit PO PRUITT 03/29/17 05/17/18 History (DRISDOL)] buPROPion SR [Wellbutrin SR] 150 mg PO BID 03/29/17 05/17/18 History busPIRone HCL 30 mg PO QAM 03/29/17 05/17/18 History traMADol HCL [Ultram] 100 mg PO TID PRN 03/29/17 05/17/18 History Baclofen [Lioresal] 20 mg PO TID PRN 01/10/18 05/17/18 History Clopidogrel [Plavix] 75 mg PO DAILY #30 tab 01/13/18 05/17/18 Rx Nitroglycerin Sl Tabs [Nitrostat] 0.4 mg SUBLINGUAL Q5M PRN #25 tab 01/13/1812/27 Rx Rosuvastatin Calcium [Crestor] 40 mg PO DAILY #30 tab 01/13/18 05/17/18 Rx Sacubitril/Valsartan [Entresto 24 1 tab PO BID 04/11/18 05/17/18 History mg-26 mg Tablet] Insulin Aspart (For Pump) [NovoLOG 0.01 unit SQ-PUMP CONTINUOUS 05/17/18 History (For Pump)] Levothyroxine Sodium [Synthroid] 150 mcg PO DAILY 05/17/18 05/17/18 History busPIRone HCL 15 mg PO HS 05/17/18 05/17/18 History Allergies Allergy/AdvReac Type Severity Reaction Status Date / Time metronidazole [From Flagyl] Allergy Rash/Hives Verified 05/17/18 16:11 Physical Exam Vitals: Vital Signs Temp Pulse Pulse Resp BP BP Pulse Ox 05/18/18 07:00 97.8 F 67 138/70 98 05/17/18 21:36 98.3 F 61 16 122/74 98 05/17/18 21:08 97.8 F 65 18 124/55 98 05/17/18 18:49 98.0 F 65 18 136/80 98 05/17/18 17:33 61 18 145/67 99 05/17/18 15:29 98.0 F 68 20 126/74 98 Intake and Output 05/17/18 05/18/18 05/18/18 22:59 06:59 14:59 Other: # Voids 1 0 Weight 91.626 kg 92.079 kg Results 05/17/18 17:01 05/17/18 17:01 Cardiac Enzymes 05/17/18 05/17/18 05/17/18 Range/Units 17:01 17:01 22:43 AST 41 H (14-36) U/L CK-MB (CK-2) 0.4 0.3 (0.0-2.4) ng/mL Troponin I <0.012 <0.012 (0.000-0.034) ng/mL 05/18/18 Range/Units 05:23 AST (14-36) U/L CK-MB (CK-2) 0.3 (0.0-2.4) ng/mL Troponin I <0.012 (0.000-0.034) ng/mL Coagulation 05/17/18 05/17/18 Range/Units 17:01 17:01 PT 10.2 (9.0-12.0) sec APTT 20.3 L (22.0-30.0) sec CBC 05/17/18 Range/Units 17:01 WBC 8.2 (3.8-10.6) k/uL RBC 4.14 (3.80-5.40) m/uL Hgb 12.3 (11.4-16.0) gm/dL Hct 38.0 (34.0-46.0) % Plt Count 206 (150-450) k/uL Comprehensive Metabolic Panel 05/17/18 Range/Units 17:01 Sodium 142 (137-145) mmol/L Potassium 4.0 (3.5-5.1) mmol/L Chloride 108 H (98-107) mmol/L Carbon Dioxide 22 (22-30) mmol/L BUN 22 H (7-17) mg/dL Creatinine 1.13 H (0.52-1.04) mg/dL Glucose 130 H (74-99) mg/dL Calcium 10.1 (8.4-10.2) mg/dL AST 41 H (14-36) U/L ALT 26 (9-52) U/L Alkaline Phosphatase 102 (38-126) U/L Total Protein 7.7 (6.3-8.2) g/dL Albumin 4.3 (3.5-5.0) g/dL Current Medications Generic Name Dose Route Start Last Admin Trade Name Freq PRN Reason Stop Dose Admin Albuterol Sulfate 2.5 mg 05/18/18 10:35 Ventolin Nebulized INHALATION Q4H PRN sob Aspirin 162 mg 05/18/18 09:00 05/18/18 09:05 Aspirin PO 162 mg BID ISIDRA Administration Atorvastatin Calcium 80 mg 05/18/18 09:00 Lipitor PO DAILY ISIDRA Baclofen 20 mg 05/18/18 10:35 Lioresal PO TID PRN Pain Budesonide/Formoterol Fumarate 2 puff 05/18/18 21:00 Symbicort 160-4.5 Mcg Inhaler INHALATION BID ISIDRA Bupropion HCl 150 mg 05/18/18 09:00 05/18/18 09:04 Wellbutrin Sr PO 150 mg BID [facility] Administration Buspirone HCl 15 mg 05/18/18 21:00 Buspar PO HS [facility] Buspirone HCl 30 mg 05/19/18 09:00 Buspar PO QAM [facility] Carvedilol 12.5 mg 05/18/18 07:30 05/18/18 09:05 Coreg PO 12.5 mg BID-W/MEALS ISIDRA Administration Clopidogrel Bisulfate 75 mg 05/18/18 09:00 Plavix PO DAILY [facility] Ezetimibe 10 mg 05/18/18 21:00 Zetia PO HS [facility] Ergocalciferol 50,000 unit 05/22/18 09:00 Vitamin D2 PO PRUITT [facility] Famotidine 20 mg 05/19/18 09:00 Pepcid PO DAILY [facility] Fluvoxamine Maleate 300 mg 05/18/18 21:00 Luvox PO HS [facility] Furosemide 20 mg 05/18/18 09:00 05/18/18 09:05 Lasix PO 20 mg DAILY [facility] Administration Insulin Aspart 0 unit 05/18/18 11:56 Novolog SQ DAILY PRN Insulin Pump Replacement Levothyroxine Sodium 150 mcg 05/18/18 06:30 05/18/18 06:10 Synthroid PO 150 mcg DAILY@0630 [facility] Administration Metformin HCl 500 mg 05/18/18 09:00 05/18/18 09:04 Glucophage PO 500 mg BID [facility] Administration Miscellaneous Information 1 each 05/18/18 11:56 Insulin Pump Active Insulin MISCELLANE ACHS PRN Blood Sugar - High Protocol Miscellaneous Information 1 each 05/18/18 11:56 Insulin Pump Basal Rates MISCELLANE Q6HR PRN Blood Sugar - High Protocol Miscellaneous Information 0 unit 05/18/18 11:56 Insulin Pump Correction Bolus MISCELLANE ACHS PRN Blood Sugar - High Protocol Miscellaneous Information 0 unit 05/18/18 12:30 Insulin Pump Meal Bolus MISCELLANE ACHS [facility] Protocol Miscellaneous Information 1 each 05/18/18 11:56 Insulin Pump Target Glucose MISCELLANE ACHS PRN Blood Sugar - High Protocol Montelukast Sodium 10 mg 05/18/18 09:00 05/18/18 09:05 Singulair PO 10 mg DAILY ISIDRA Administration Naloxone HCl 0.2 mg 05/17/18 20:39 Narcan IV Q2M PRN Opioid Reversal Nitroglycerin 0.4 mg 05/18/18 10:35 Nitrostat SUBLINGUAL Q5M PRN Chest Pain Sacubitril/Valsartan 1 each 05/18/18 09:00 05/18/18 09:05 Entresto 24 Mg-26 Mg Tablet PO 1 each BID ISIDRA Administration Tramadol HCl 100 mg 05/18/18 00:02 Ultram PO TID PRN Pain Intake and Output 05/17/18 05/18/18 05/18/18 22:59 06:59 14:59 Other: # Voids 1 0 Weight 91.626 kg 92.079 kg 05/17/18 17:01 05/17/18 17:01 <Vlad Ndiaye R - Last Filed: 05/19/18 11:04> History of Present Illness History of present illness: I spoke to Dr Martínez. Physical Exam Vitals: Vital Signs Temp Pulse Resp BP Pulse Ox 05/19/18 07:40 98.2 F 64 16 145/77 97 05/19/18 07:00 97.9 F 57 L 16 131/74 97 05/19/18 00:22 97.9 F 65 14 121/71 98 05/18/18 21:24 98.2 F 68 14 145/82 99 05/18/18 17:07 16 05/18/18 15:00 98.5 F 69 114/66 98 Intake and Output 05/18/18 05/19/18 05/19/18 22:59 06:59 14:59 Intake Total 236 360 Output Total 536 Balance 236 -536 360 Intake: Oral 236 360 Output: Urine 536 Other: # Voids 1 Weight 94.9 kg Results 05/17/18 17:01 05/17/18 17:01 Current Medications Generic Name Dose Route Start Last Admin Trade Name Freq PRN Reason Stop Dose Admin Albuterol Sulfate 2.5 mg 05/18/18 10:35 Ventolin Nebulized INHALATION Q4H PRN sob Aspirin 162 mg 05/18/18 09:00 05/18/18 21:37 Aspirin PO 162 mg BID ISIDRA Administration Baclofen 20 mg 05/18/18 10:35 Lioresal PO TID PRN Pain Budesonide/Formoterol Fumarate 2 puff 05/18/18 21:00 05/19/18 07:58 Symbicort 160-4.5 Mcg Inhaler INHALATION 2 puff BID [facility] Administration Bupropion HCl 150 mg 05/18/18 09:00 05/18/18 21:37 Wellbutrin Sr PO 150 mg BID ISIDRA Administration Buspirone HCl 15 mg 05/18/18 21:00 05/18/18 21:36 Buspar PO 15 mg HS [facility] Administration Buspirone HCl 30 mg 05/19/18 09:00 Buspar PO QAM SIIDRA Carvedilol 12.5 mg 05/18/18 07:30 05/18/18 16:56 Coreg PO 12.5 mg BID-W/MEALS [facility] Administration Clopidogrel Bisulfate 75 mg 05/18/18 09:00 05/18/18 14:05 Plavix PO 75 mg DAILY [facility] Administration Ezetimibe 10 mg 05/18/18 21:00 05/18/18 21:55 Zetia PO 10 mg HS [facility] Administration Ergocalciferol 50,000 unit 05/22/18 09:00 Vitamin D2 PO PRUITT [facility] Famotidine 20 mg 05/19/18 09:00 Pepcid PO DAILY [facility] Fluvoxamine Maleate 300 mg 05/18/18 21:00 05/18/18 21:36 Luvox PO 300 mg HS [facility] Administration Furosemide 20 mg 05/18/18 09:00 05/18/18 09:05 Lasix PO 20 mg DAILY [facility] Administration Insulin Aspart 0 unit 05/18/18 11:56 Novolog SQ DAILY PRN Insulin Pump Replacement Levothyroxine Sodium 150 mcg 05/18/18 06:30 05/19/18 05:43 Synthroid PO 150 mcg DAILY@0630 [facility] Administration Metformin HCl 500 mg 05/18/18 09:00 05/18/18 21:37 Glucophage PO 500 mg BID [facility] Administration Miscellaneous Information 1 each 05/18/18 11:56 Insulin Pump Active Insulin MISCELLANE ACHS PRN Blood Sugar - High Protocol Miscellaneous Information 1 each 05/18/18 11:56 Insulin Pump Basal Rates MISCELLANE Q6HR PRN Blood Sugar - High Protocol Miscellaneous Information 0 unit 05/18/18 11:56 Insulin Pump Correction Bolus MISCELLANE ACHS PRN Blood Sugar - High Protocol Miscellaneous Information 0 unit 05/18/18 12:30 05/18/18 21:45 Insulin Pump Meal Bolus MISCELLANE 1.8 unit ACHS ISIDRA Administration Protocol Miscellaneous Information 1 each 05/18/18 11:56 Insulin Pump Target Glucose MISCELLANE ACHS PRN Blood Sugar - High Protocol Montelukast Sodium 10 mg 05/18/18 09:00 05/18/18 09:05 Singulair PO 10 mg DAILY ISIDRA Administration Naloxone HCl 0.2 mg 05/17/18 20:39 Narcan IV Q2M PRN Opioid Reversal Nitroglycerin 0.4 mg 05/18/18 10:35 Nitrostat SUBLINGUAL Q5M PRN Chest Pain Patient's Own Med- 1 each 05/18/18 21:00 05/18/18 22:03 Crestor 20 Mg PO 1 each DAILY@2100 ISIDRA Administration Sacubitril/Valsartan 1 each 05/18/18 09:00 05/18/18 21:37 Entresto 24 Mg-26 Mg Tablet PO 1 each BID ISIDRA Administration Tramadol HCl 100 mg 05/18/18 00:02 05/18/18 19:02 Ultram PO 100 mg TID PRN Administration Pain Intake and Output 05/18/18 05/19/18 05/19/18 22:59 06:59 14:59 Intake Total 236 360 Output Total 536 Balance 236 -536 360 Intake: Oral 236 360 Output: Urine 536 Other: # Voids 1 Weight 94.9 kg Patient Weight 05/20/18 06:59 Weight 94.9 kg 05/17/18 17:01 05/17/18 17:01
[2018-05-18] MEDS ORDERED: HYDROmorphone 1 MG/ML 1 ML SYRINGE IVP PRN (13:55)
[2018-05-18 13:59] VITALS: BMI 35.9
[2018-05-18] MEDS: INSULIN PUMP MEAL BOLUS 1 UNIT MISC MISCELLANE SCH ×3 (14:05→21:45)
[2018-05-18] MEDS: CLOPIDOGREL 75 MG TAB PO SCH (14:05)
--- NOTE | 2018-05-18 14:45 | P.CNOR ---
History of Present Illness - HPI Consult date: 05/18/18 History of present illness: The patient is a 67-year-old female with multiple medical problems including diabetes, coronary artery disease, and congestive heart failure who fell and sustained a closed left ankle fracture dislocation. She was initially seen in the emergency department where she had a reduction and splint placed. Follow- up was arranged in our office. I saw the patient yesterday in the office with her . The patient was in severe pain and stated that she felt unsafe at home as she had nobody to care for her. The patient was sent over to the ER for admission to the hospital and placement in subacute rehab. The patient was seen today at bedside for a tissue inspection and application of a splint. She is complaining of isolated pain in the ankle Past Medical History Past Medical History: Asthma, Blood Disorder, Coronary Artery Disease (CAD), Chest Pain / Angina, Heart Failure, Diabetes Mellitus, Hyperlipidemia, Hypertension, Myocardial Infarction (HI), Osteoarthritis (OA), Renal Disease, Skin Disorder, Supraventricular Tachycardia (SVT), Thyroid Disorder Additional Past Medical History / Comment(s): See Dr Villanueva's H&P. USES INSULIN PUMP, VITILIGO-FACE, ANEMIA, DIZZINESS OFF & ON, HERNIATED DISCS L1, L2,L3, L4-L5, PINCHED SCIATIC NERVE, OSTEOPENIA, HIATAL HERNIA W/ occ diarrhea/ severe cramping/bloating/nausea. ELEV LFS, off/on pain LUE W/ tingling of hand , has neuropathy. Last Myocardial Infarction Date:: June 2009, 01/09/18 History of Any Multi-Drug Resistant Organisms: None Reported Past Surgical History: AICD, Cardiac Ablation, Cholecystectomy, Coronary Bypass/ CABG, Heart Catheterization, Heart Catheterization With Stent, Hysterectomy, Pacemaker, Tonsillectomy Additional Past Surgical History / Comment(s): TRIPLE BYPASS Marach 2012, EXC. CATARACTS WITH LENS IMPLANTS, DEFIBRILLATOR ST.ESME, 3 cardiac stents, ablation 1994 Past Anesthesia/Blood Transfusion Reactions: No Reported Reaction, Family History of Problems w/ Anesthesia Additional Past Anesthesia/Blood Transfusion Reaction / Comm: DAUGHTERS HAVE PONV. (HX nausea from iron infusions) Date of Last Stent Placement:: 2008 x2, 01/2018 X1 Type of Cardiac Device: Permanent Pacemaker, AICD Device Placement Date:: 2011 Past Psychological History: Depression Smoking Status: Never smoker Past Alcohol Use History: None Reported Additional Past Alcohol Use History / Comment(s): Patient is a lifelong nonsmoker, no illicit drug use, no alcohol use. She lives at home with her . Past Drug Use History: None Reported - Past Family History Mother Family Medical History: Thyroid Disorder Additional Family Medical History / Comment(s): HEART DISEASE, Father Family Medical History: Diabetes Mellitus Additional Family Medical History / Comment(s): HEART DISEASE Sister(s) Family Medical History: Cancer Additional Family Medical History / Comment(s): 1/2 sister-thyroid cancer Medications and Allergies Home Medications Medication Instructions Recorded Confirmed Type Aspirin [Adult Low Dose Aspirin EC] 162 mg PO BID 12/27/15 05/17/18 History Budesonide-Formot 160-4.5 Mcg 2 puff INHALATION BID PRN 12/27/15 05/17/18 History [Symbicort 160-4.5 Mcg Inhaler] Carvedilol [Coreg] 12.5 mg PO BID 12/27/15 05/17/18 History Ezetimibe [Zetia] 10 mg PO DAILY 12/27/15 05/17/18 History Furosemide [Lasix] 20 mg PO DAILY 12/27/15 05/17/18 History Montelukast [Singulair] 10 mg PO DAILY 12/27/15 05/17/18 History fluvoxaMINE MALEATE [Luvox] 300 mg PO HS 12/27/15 05/17/18 History metFORMIN HCL [Glucophage] 500 mg PO BID 12/27/15 05/17/18 History Albuterol Inhaler [Ventolin Hfa 2 puff INHALATION Q4-6H PRN 03/29/17 05/17/18 History Inhaler] Ergocalciferol [Vitamin D2 50,000 unit PO PRUITT 03/29/17 05/17/18 History (DRISDOL)] buPROPion SR [Wellbutrin SR] 150 mg PO BID 03/29/17 05/17/18 History busPIRone HCL 30 mg PO QAM 03/29/17 05/17/18 History traMADol HCL [Ultram] 100 mg PO TID PRN 03/29/17 05/17/18 History Baclofen [Lioresal] 20 mg PO TID PRN 01/10/18 05/17/18 History Clopidogrel [Plavix] 75 mg PO DAILY #30 tab 01/13/18 05/17/18 Rx Nitroglycerin Sl Tabs [Nitrostat] 0.4 mg SUBLINGUAL Q5M PRN #25 tab 01/13/1812/27 Rx Rosuvastatin Calcium [Crestor] 40 mg PO DAILY #30 tab 01/13/18 05/17/18 Rx Sacubitril/Valsartan [Entresto 24 1 tab PO BID 04/11/18 05/17/18 History mg-26 mg Tablet] Insulin Aspart (For Pump) [NovoLOG 0.01 unit SQ-PUMP CONTINUOUS 05/17/18 History (For Pump)] Levothyroxine Sodium [Synthroid] 150 mcg PO DAILY 05/17/18 05/17/18 History busPIRone HCL 15 mg PO HS 05/17/18 05/17/18 History Allergies Allergy/AdvReac Type Severity Reaction Status Date / Time metronidazole [From Flagyl] Allergy Rash/Hives Verified 05/17/18 16:11 Physical Examination A focused examination of the left ankle was conducted. On inspection there is diffuse swelling and multiple serous filled fracture blisters over the ankle. There is no open wounds or skin at risk. There is no wrinkling of the skin. Dorsalis pedis pulses palpable area and the tips of the toe were warm and well- perfused brisk capillary refill. There is no pain with passive range of motion of the toes. Results X-rays show a displaced, unstable bimalleolar ankle fracture. There is calcification in the vessels around the ankle and surgical clips from a prior vein graft harvest. - Labs Labs: Abnormal Lab Results - Last 24 Hours (Table) 05/17/18 05/17/18 05/18/18 Range/Units 17:01 17:01 06:53 APTT 20.3 L (22.0-30.0) sec Chloride 108 H (98-107) mmol/L BUN 22 H (7-17) mg/dL Creatinine 1.13 H (0.52-1.04) mg/dL Glucose 130 H (74-99) mg/dL POC Glucose (mg/dL) 137 H (75-99) mg/dL AST 41 H (14-36) U/L 05/18/18 Range/Units 11:42 APTT (22.0-30.0) sec Chloride (98-107) mmol/L BUN (7-17) mg/dL Creatinine (0.52-1.04) mg/dL Glucose (74-99) mg/dL POC Glucose (mg/dL) 179 H (75-99) mg/dL AST (14-36) U/L H & H 05/17/18 Range/Units 17:01 Hgb 12.3 (11.4-16.0) gm/dL Hct 38.0 (34.0-46.0) % Coagulation 05/17/18 Range/Units 17:01 INR 1.0 (<1.2) Result Diagrams: 05/17/18 17:01 05/17/18 17:01 Assessment and Plan (1) Ankle fracture Current Visit: Yes Status: Acute Code(s): S82.899A - OTH FRACTURE OF UNSP LOWER LEG, INIT FOR CLOS FX SNOMED Code(s): 50060959 Plan: The patient has an unstable bimalleolar ankle fracture that will eventually require surgery. Her exam today shows tense swelling, serous filled fracture blisters, and no wrinkling of the skin. She will likely need 1-3 weeks of splinting and elevation to allow the soft tissue swelling to resolve to the point that it is safe to operate. Due to her multiple medical problems and inability to care for herself at home the patient requested admission to the hospital for rehab placement. The patient had a well-padded bulky Flores splint applied to the ankle today. She is okay to discharge to a short-term nursing facility or rehab facility when she is able. She needs to follow-up in the office with me one week after discharge for a soft tissue check. There are no plans for surgical intervention at this hospitalization due to her significant soft tissue swelling. We will continue to follow while she is in the hospital. Procedure: The splint over the left ankle was removed. There were multiple serous filled fracture blisters. The leg was bent at the hip and the knee and the ankle was reduced with the Domo maneuver. A well-padded bulky Flores splint was placed with a varus mold. After application of the splint patient's pain was significantly improved. The tips of her toes were neurovascularly intact.
[2018-05-18 14:56] LABS: Hemoglobin A1C 8.4 % (4.0-6.0)
[2018-05-18 17:44] LABS: Glucose,Whole Blood 123 mg/dL (75-99)
[2018-05-18] MEDS: traMADol 50 MG TAB PO PRN (19:02)
[2018-05-18 19:59] LABS: Glucose,Whole Blood 162 mg/dL (75-99)
[2018-05-18] MEDS ORDERED: CRESTOR 20 MG PO SCH (21:00)
[2018-05-18] MEDS ORDERED: busPIRone HCl 5 MG TAB PO SCH (21:00)
[2018-05-18] MEDS: SYMBICORT 160-4.5 MCG INHALER INHALATION SCH (22:04)
[2018-05-19] MEDS: LEVOTHYROXINE 75 MCG TAB PO SCH (05:43)
[2018-05-19] MEDS: INSULIN PUMP MEAL BOLUS 1 UNIT MISC MISCELLANE SCH ×2 (07:40→16:34)
[2018-05-19 07:46] LABS: Glucose,Whole Blood 131 mg/dL (75-99)
[2018-05-19] MEDS: SYMBICORT 160-4.5 MCG INHALER INHALATION SCH (07:58)
--- NOTE | 2018-05-19 08:31 | P.DS ---
Providers Date of admission: 05/17/18 20:39 Expected date of discharge: 05/19/18 Attending physician: Antwon Faith Consults: 05/18/18 10:24 Consult Physician Routine Consulting Provider: Fred Garza Consult Reason/Comments: left ankle fracture Do you want consulting provider notified?: Yes 05/18/18 10:28 Consult Physician Routine Consulting Provider: Valentino Richard Consult Reason/Comments: inpatient rehab Do you want consulting provider notified?: Yes 05/18/18 10:29 Consult Physician Routine Consulting Provider: Vlad Ndiaye Consult Reason/Comments: CAD, stent in January, needs sx for ankle fx Do you want consulting provider notified?: Yes Primary care physician: Renataazael Burgess [facility] Course: This is a 67-year-old female patient of Dr. Burgess with past medical history for moderate persistent asthma, diabetes mellitus type 2 with diabetic neuropathy on insulin pump, chronic kidney disease stage III, hypothyroidism, hypertension, coronary artery disease status post myocardial infarction with coronary stent in 2008, coronary artery bypass graft in 2012 for 3 vessels, January 2018 status post stent to circumflex currently on Plavix, history of severe cardiomyopathy status post single-chamber AICD upgraded to biventricular AICD placement on April 19, cardiac ablation for SVT, osteoarthritis, recurrent depression. Patient states that on Wednesday afternoon she had stepped on the [place] and then took a step down and heard a snap in her left ankle. She states she had to crawl to the car to use her phone to call for EMS she was then transported to [facility] emergency center for evaluation. Left ankle x- ray showed displaced acute fracture involving the medial and lateral malleoli. Slight asymmetry of the medial margin of the ankle more cheese correlate clinically. Patient was discharged home with plan to follow-up with orthopedics in 1-2 days, nonweightbearing using crutches and splint. Patient saw Dr. Garza yesterday and was sent in to [facility] emergency center for evaluation. Patient has been unable to do even transfers as she is not using her left arm due to the recent upgrade on her AICD done on April 19. She states the steps into her home and ulnar doorways are too narrow for a walker or wheelchair. She also has a known sciatica problem on the right leg and with increased weightbearing on the right leg this is caused to worsen. She saw Dr. Garza yesterday and was sent back to [facility] emergency center for admission. CBC is normal, BUN 22 and creatinine 1.13, blood sugar 1:30. Patient is on insulin pump. Patient was admitted to the [facility] floor and we have asked for consults with orthopedics to determine the surgery and cardiology to clear her for surgery due to recent stent in January. Patient has been continued on Plavix. 05/19: Vital signs are stable, pulse ox 97% on room air, patient is been afebrile. Blood sugars are running between 123 and 162. Orthopedics is planning for surgical intervention in 2 weeks. Patient has been followed by cardiology with recommendations for Plavix to be held 5 days prior to surgery and resume immediately after. Patient had a Flores splint placed yesterday. She has been cleared for discharge by orthopedics with planned follow-up in the office. Patient states that her left ankle is much more comfortable at rest but she still has pain with any movement. Patient family met with social work and plan for discharge to [facility] or [facility]. Awaiting PT and OT evaluations and pre-surgery will be started today. Anticipate possible discharge later today or tomorrow once all arrangements are completed. Discharge Diagnoses: 1. Left ankle fracture requiring surgical intervention which will be scheduled for a later date. 2. Diabetes mellitus type 2, currently on insulin pump. 3. Severe cardiomyopathy status post upgrade AICD to biventricular done on April 19. 4. Coronary artery disease status post 3 vessel CABG, stents. 5. Chronic kidney disease stage III, stable. 6. Hypertension. 7. Moderate persistent asthma, stable without exacerbation. 8. Hypothyroidism 9. Recurrent depression. Discharge plan: Subacute rehab Impression and plan of care have been directed as dictated by the signing physician. Stacey Tony nurse practitioner acting as scribe for signing physician. Patient Condition at Discharge: Good Plan - Discharge Summary Discharge Rx Participant: No New Discharge Prescriptions: Continue Budesonide-Formot 160-4.5 Mcg [Symbicort 160-4.5 Mcg Inhaler] 2 puff INHALATION BID PRN PRN Reason: Shortness Of Breath metFORMIN HCL [Glucophage] 500 mg PO BID fluvoxaMINE MALEATE [Luvox] 300 mg PO HS Carvedilol [Coreg] 12.5 mg PO BID Furosemide [Lasix] 20 mg PO DAILY Montelukast [Singulair] 10 mg PO DAILY Ezetimibe [Zetia] 10 mg PO DAILY Aspirin [Adult Low Dose Aspirin EC] 162 mg PO BID Albuterol Inhaler [Ventolin Hfa Inhaler] 2 puff INHALATION Q4-6H PRN PRN Reason: sob buPROPion SR [Wellbutrin SR] 150 mg PO BID busPIRone HCL 30 mg PO QAM Ergocalciferol [Vitamin D2 (DRISDOL)] 50,000 unit PO PRUITT Baclofen [Lioresal] 20 mg PO TID PRN PRN Reason: Pain Clopidogrel [Plavix] 75 mg PO DAILY #30 tab Nitroglycerin Sl Tabs [Nitrostat] 0.4 mg SUBLINGUAL Q5M PRN #25 tab PRN Reason: Chest Pain Rosuvastatin Calcium [Crestor] 40 mg PO DAILY #30 tab Sacubitril/Valsartan [Entresto 24 mg-26 mg Tablet] 1 tab PO BID busPIRone HCL 15 mg PO HS Levothyroxine Sodium [Synthroid] 150 mcg PO DAILY Insulin Aspart (For Pump) [NovoLOG (For Pump)] 0.01 unit SQ-PUMP CONTINUOUS traMADol HCL [Ultram] 100 mg PO TID PRN #9 tablet PRN Reason: Pain Discharge Medication List Aspirin [Adult Low Dose Aspirin EC] 162 mg PO BID 12/27/15 [History] Budesonide-Formot 160-4.5 Mcg [Symbicort 160-4.5 Mcg Inhaler] 2 puff INHALATION BID PRN 12/27/15 [History] Carvedilol [Coreg] 12.5 mg PO BID 12/27/15 [History] Ezetimibe [Zetia] 10 mg PO DAILY 12/27/15 [History] Furosemide [Lasix] 20 mg PO DAILY 12/27/15 [History] Montelukast [Singulair] 10 mg PO DAILY 12/27/15 [History] fluvoxaMINE MALEATE [Luvox] 300 mg PO HS 12/27/15 [History] metFORMIN HCL [Glucophage] 500 mg PO BID 12/27/15 [History] Albuterol Inhaler [Ventolin Hfa Inhaler] 2 puff INHALATION Q4-6H PRN 03/29/17 [ History] Ergocalciferol [Vitamin D2 (DRISDOL)] 50,000 unit PO PRUITT 03/29/17 [History] buPROPion SR [Wellbutrin SR] 150 mg PO BID 03/29/17 [History] busPIRone HCL 30 mg PO QAM 03/29/17 [History] Baclofen [Lioresal] 20 mg PO TID PRN 01/10/18 [History] Clopidogrel [Plavix] 75 mg PO DAILY #30 tab 01/13/18 [Rx] Nitroglycerin Sl Tabs [Nitrostat] 0.4 mg SUBLINGUAL Q5M PRN #25 tab 01/13/18 [Rx ] Rosuvastatin Calcium [Crestor] 40 mg PO DAILY #30 tab 01/13/18 [Rx] Sacubitril/Valsartan [Entresto 24 mg-26 mg Tablet] 1 tab PO BID 04/11/18 [ History] Insulin Aspart (For Pump) [NovoLOG (For Pump)] 0.01 unit SQ-PUMP CONTINUOUS 12/27 [History] Levothyroxine Sodium [Synthroid] 150 mcg PO DAILY 05/17/18 [History] busPIRone HCL 15 mg PO HS 05/17/18 [History] traMADol HCL [Ultram] 100 mg PO TID PRN #9 tablet 05/19/18 [Rx] Follow up Appointment(s)/Referral(s): Renata Burgess MD [Primary Care Provider] - 1 Week Fred Garza MD [Medical Doctor] - 1 Week Activity/Diet/Wound Care/Special Instructions: Plavix is to be held 5 days prior to orthopedic surgery. Discharge Disposition: TRANSFER TO SNF/ECF
--- NOTE | 2018-05-19 08:55 | P.PN ---
Subjective Progress Note Date: 05/19/18 Principal diagnosis: Bimalleolar ankle fracture Roshni is a 67 yo female with a past medical history of diabetes, congestive heart failure, and coronary artery disease who fell at home and sustained a closed left ankle fracture. She initially was seen in the ED and a splint was placed, and patient followed up in Dr. Garza's office on 05/17/18, and the patient stated she felt unsafe at home with her injury, therefore she was admitted to the hospital for rehab placement. Patient was placed in a bulky Flores splint yesterday 05/18/[address] Garza. Today, patient states she has decreased pain, and feels her left ankle swelling has gone down. Patient states she is transferring to bedside commode with assistance. Patient states she is able to move left toes without trouble. Patient states pain is well-controlled currently. Objective - Vital Signs Vital signs: Vital Signs Temp 97.9 F 05/19/18 07:00 Pulse 57 L 05/19/18 07:00 Resp 16 05/19/18 07:00 BP 131/74 05/19/18 07:00 Pulse Ox 97 05/19/18 07:00 Intake & Output 05/18/18 05/19/18 05/19/18 18:59 06:59 18:59 Intake Total 236 Output Total 536 Balance -300 Weight 92.079 kg 94.9 kg Intake: Oral 236 Output: Urine 536 Other: # Voids 1 - Exam On inspection of the left ankle there is a bulky Flores splint present. Toes are warm and well perfused with brisk capillary refill. There is no pain to active and passive motion of the left toes. - Labs CBC & Chem 7: 05/17/18 17:01 05/17/18 17:01 Labs: Abnormal Lab Results - Last 24 Hours (Table) 05/18/18 05/18/18 05/18/18 Range/Units 05:23 11:42 17:32 POC Glucose (mg/dL) 179 H 123 H (75-99) mg/dL Hemoglobin A1c 8.4 H (4.0-6.0) % 05/18/18 05/19/18 Range/Units 19:47 07:34 POC Glucose (mg/dL) 162 H 131 H (75-99) mg/dL Hemoglobin A1c (4.0-6.0) % Assessment and Plan Assessment: Left ankle fracture Plan: This patient has an unstable bimalleolar ankle fracture that will eventually require surgery, although not during this hospitalization due to the swelling. She will remain inpatient until she is able to be discharged to a subacute rehab center. We will continue to follow while she is in the hospital.
[2018-05-19] MEDS ORDERED: busPIRone HCl 10 MG TAB PO SCH (09:00)
[2018-05-19] MEDS ORDERED: CRESTOR 20 MG PO SCH (09:00)
[2018-05-19] MEDS ORDERED: FAMOTIDINE 20 MG TAB PO SCH (09:00)
--- NOTE | 2018-05-19 12:02 | P.PN ---
Subjective This is a pleasant 67-year-old female past medical history significant for coronary artery disease status post bypass grafting, ischemic cardiomyopathy, biv ICD in place, hypertension, dyslipidemia, peripheral vascular disease and diabetes mellitus. 04/19/2018 she underwent an upgrade of her ICD from single- chamber to biv. In January 2018 she underwent cardiac catheterization. She has a MARTIN to LAD, SVG to OM1 and SVG to RCA. She was found to have critical disease involving the distal left main and proximal left circumflex. She underwent intervention of the left circumflex at that time and has been maintained on dual antiplatelet therapy since. On Wednesday she suffered a fall in her driveway while bringing in the garbage cans. She came to the hospital for evaluation and was found to have a displaced fracture of the left lateral malleoli. She was sent home to follow-up as an outpatient with Dr. Garza. She saw him in the office yesterday and was complaining she was unable to maintain at home perform her ADLs secondary to increased weakness and inability to move around with ankle fracture. She was sent into the hospital as a direct admit for recommendations regarding going for surgery secondary to being on dual antiplatelet therapy. She continues to denies symptoms of chest pain, shortness of breath, dizziness or palpitations. Blood pressure 145/77 heart rate 64 afebrile maintaining oxygen saturation on room air GENERAL: This is a 67-year-old female in no apparent distress at the time of my examination. LUNGS: Clear to auscultation no wheezes, rales or rhonchi. No chest wall tenderness is noted on palpation or with deep breathing. HEART: Regular rate and rhythm without murmurs, rubs or gallops. S1 and S2 heard. EXTREMITIES: No evidence of peripheral edema and no calf tenderness noted. Cast in place left lower extremity. ASSESSMENT Acute displaced fracture involving the medial lateral malleoli Severe ischemic cardiomyopathy status post BiV ICD upgrade History of coronary artery disease status post bypass grafting with recent angioplasty of the circumflex January 2018 currently maintained on dual antiplatelet therapy Hypertension Dyslipidemia Peripheral vascular disease Diabetes mellitus PLAN Spoke with Yolanda and Dr. Martínez and have been advised that surgery won't be for at least 2 weeks due to swelling and lower extremity blisters. Therefore resume plavix until just prior to surgery. Advised the patient that plavix should be helf 3-5 days prior and resumed immediately thereafter. This has been explained in great detail to the patient as well as her daughter who is in the room. Plan is for her to go to inpatient therapy until surgery. Stable from a cardiac perspective. We will continue to see as needed. Nurse Practitioner note has been reviewed, I agree with a documented findings and plan of care. Patient was seen and examined. Objective - Vital Signs Vital signs: Vital Signs Temp 98.2 F 05/19/18 07:40 Pulse 64 05/19/18 07:40 Resp 16 05/19/18 07:40 BP 145/77 05/19/18 07:40 Pulse Ox 97 05/19/18 07:40 Intake & Output 05/18/18 05/19/18 05/19/18 18:59 06:59 18:59 Intake Total 236 360 Output Total 536 Balance -300 360 Weight 92.079 kg 94.9 kg Intake: Oral 236 360 Output: Urine 536 Other: # Voids 1 - Labs CBC & Chem 7: 05/17/18 17:01 05/17/18 17:01 Labs: Abnormal Lab Results - Last 24 Hours (Table) 05/18/18 05/18/18 05/18/18 Range/Units 05:23 11:42 17:32 POC Glucose (mg/dL) 179 H 123 H (75-99) mg/dL Hemoglobin A1c 8.4 H (4.0-6.0) % 05/18/18 05/19/18 Range/Units 19:47 07:34 POC Glucose (mg/dL) 162 H 131 H (75-99) mg/dL Hemoglobin A1c (4.0-6.0) %
[2018-05-19 12:10] LABS: Glucose,Whole Blood 110 mg/dL (75-99)
[2018-05-19 12:42] VITALS: RESP 17
[2018-05-19] MEDS: CARVEDILOL 12.5 MG TAB PO SCH (12:50)
[2018-05-19] MEDS: ASPIRIN 81 MG PO SCH (12:52)
[2018-05-19] MEDS: FUROSEMIDE 20 MG TAB PO SCH (12:53)
[2018-05-19] MEDS: metFORMIN 500 MG TAB PO SCH (12:53)
[2018-05-19] MEDS: buPROPion SR 150 MG TABLET.ER PO SCH (12:53)
[2018-05-19] MEDS: CLOPIDOGREL 75 MG TAB PO SCH (12:53)
[2018-05-19] MEDS: MONTELUKAST 10 MG TAB PO SCH (12:54)
[2018-05-19] MEDS: SACUBITRIL/VALSARTAN 24 MG-26 MG TABLET PO SCH (12:55)
[2018-05-19 15:20] VITALS: BP 134/87; PULSE 61; TEMP 97.8
[2018-05-19] MEDS: traMADol 50 MG TAB PO PRN (16:32)
[2018-05-22] MEDS ORDERED: ERGOCALCIFEROL 50,000 UNIT CAP PO SCH (09:00)
== END 2018-05-19 16:39 | DRG 563 ==
LOC: EC 15:18 → 4SSUR 20:39
PROVIDERS: ADMIT Internal Medicine Geriatric Medicine; ATTEND Internal Medicine Geriatric Medicine
DX: S82.842A Displaced bimalleolar fracture of left lower leg, initial encounter for closed fracture (principal); F33.9 Major depressive disorder, recurrent, unspecified; I13.0 Hypertensive heart and chronic kidney disease with heart failure and stage 1 through stage 4 chronic kidney disease, or unspecified chronic kidney disease; I50.1 Left ventricular failure, unspecified; E03.9 Hypothyroidism, unspecified; E11.22 Type 2 diabetes mellitus with diabetic chronic kidney disease; E11.40 Type 2 diabetes mellitus with diabetic neuropathy, unspecified; E11.51 Type 2 diabetes mellitus with diabetic peripheral angiopathy without gangrene; E78.5 Hyperlipidemia, unspecified; I25.10 Atherosclerotic heart disease of native coronary artery without angina pectoris; I25.2 Old myocardial infarction; I25.5 Ischemic cardiomyopathy; J45.40 Moderate persistent asthma, uncomplicated; L80 Vitiligo; M54.31 Sciatica, right side; M85.80 Other specified disorders of bone density and structure, unspecified site; N18.3 Chronic kidney disease, stage 3 (moderate); W19.XXXA Unspecified fall, initial encounter; Z79.02 Long term (current) use of antithrombotics/antiplatelets; Z79.4 Long term (current) use of insulin; Z79.51 Long term (current) use of inhaled steroids; Z79.82 Long term (current) use of aspirin; Z79.899 Other long term (current) drug therapy; Z80.8 Family history of malignant neoplasm of other organs or systems; Z83.3 Family history of diabetes mellitus; Z90.710 Acquired absence of both cervix and uterus; Z95.1 Presence of aortocoronary bypass graft; Z95.5 Presence of coronary angioplasty implant and graft; Z95.810 Presence of automatic (implantable) cardiac defibrillator; Z98.42 Cataract extraction status, left eye; Z98.41 Cataract extraction status, right eye; Z96.1 Presence of intraocular lens; Z96.41 Presence of insulin pump (external) (internal); Z88.1 Allergy status to other antibiotic agents
CPT/HCPCS: 29515; 36415; 71046; 80053; 82550; 82553; 83036; 83735; 84484; 85025; 85610; 85730; 93005; 94640; 99283; 99284

== ENCOUNTER 2018-06-08 09:49 | Day surgery (SDC) | payer MEDICARE ==
[2018-06-06 12:31] VITALS: BMI 35.7
[~2018-06-08 09:49] MED LIST changes: +DEXAMETHASONE SOD PHOSPHATE 10 MG/ML 1 ML VIAL IV ONE; +HYDROmorphone 1 MG/ML 1 ML SYRINGE IVP PRN; -LACTATED RINGERS 1,000 ML IV SCH; +MIDAZOLAM 2 MG/2 ML VIAL IV PRN; +ONDANSETRON 4 MG/2 ML VIAL IVP ONE; -SODIUM CHLORIDE 0.9% 1,000 ML IV SCH; -ceFAZolin 1,000 MG in SODIUM CHLORIDE 0.9% IRRIGATIO 250 ML IRRIGATION ONE
[2018-06-08] MEDS: LACTATED RINGERS 1,000 ML IV SCH (11:04)
[2018-06-08] MEDS ORDERED: LIDOCAINE 1% 20 ML VIAL (10MG/ML) FOR IV START INTRADERMA ONE (11:05)
[2018-06-08 11:10] LABS: Glucose,Whole Blood 137 mg/dL (75-99)
[2018-06-08] MEDS ORDERED: MIDAZOLAM 2 MG/2 ML VIAL IVP ONE (11:56)
[2018-06-08] MEDS ORDERED: MAGNESIUM HYDROXIDE 2,400 MG/10 ML CUP PO PRN (12:32)
[2018-06-08] MEDS ORDERED: NALOXONE 0.4 MG/ML 1 ML VIAL IV PRN (12:32)
[2018-06-08] MEDS ORDERED: HYDROmorphone 1 MG/ML 1 ML SYRINGE IVP PRN (12:32)
--- NOTE | 2018-06-08 12:36 | P.ONQ ---
Anesthesiology Proc Note - PNB - Peripheral Nerve Block Performed Left Popliteal Single Time Out Performed: Yes (l saphenous nerve block) Procedure Start Time: 11:57 Procedure Stop Time: 12:00 Indication: Acute Post-Operative Pain, Requested by physician Sedation Type: Sedate with meaningful contact maintained Preparation: Sterile Prep Needle Size: 50mm (2") Needle Gauge: 21 Technique: Ultrasound Injectate: 0.5% Ropivacaine (see comment for volume) (ropi .5% 30cc and 10 cc of ropi .5% for saphenous nerve block) Blood Aspirated: No Pain Paresthesia on Injection Noted: No Resistance on Injection: Normal Events: Uneventful and Well Tolerated
[2018-06-08] MEDS ORDERED: LIDOCAINE 1% INJ 10MG/ML (20 ML MDV) ONE (12:49)
[2018-06-08] MEDS ORDERED: MIDAZOLAM 2 MG/2 ML VIAL ONE (12:49)
[2018-06-08] MEDS ORDERED: PROPOFOL 10 MG/ML 20 ML VIAL IV ONE (12:49)
[2018-06-08] MEDS ORDERED: fentaNYL (PF) 50 MCG/ML 2 ML AMP ONE (12:49)
[2018-06-08] MEDS ORDERED: ROCURONIUM BROMIDE 10 MG/ML 10 ML VIAL IV ONE (12:49)
[2018-06-08] MEDS ORDERED: ROPIVACAINE 5 MG/ML 30 ML VIAL ONE (12:49)
[2018-06-08] MEDS ORDERED: ceFAZolin 1,000 MG in SODIUM CHLORIDE 0.9% 1,000 ML IRRIGATION ONE (13:26)
--- NOTE | 2018-06-08 15:07 | XR ---
EXAMINATION TYPE: XR ankle limited LT, FL guidance operating room DATE OF EXAM: 06/08/2018 COMPARISON: NONE HISTORY: 67 year-old female left ankle fracture FINDINGS: Images during placement of lateral side plate and screw fixation of the distal fibula as we ll as a single transsyndesmotic screw. Nondisplaced fracture of the medial malleolus is demonstrated on these images. FLUOROSCOPY Fluoroscopy time of 54 seconds was used during left ankle fixation. 4 image/s document/s the procedu re. IMPRESSION: Intraoperative fluoroscopy as above.
[2018-06-08 15:08] LABS: Glucose,Whole Blood 143 mg/dL (75-99)
[2018-06-08] MEDS: SODIUM CHLORIDE 0.9% 1,000 ML IV SCH (16:06)
[2018-06-08 16:41] LABS: Glucose,Whole Blood 143 mg/dL (75-99)
[2018-06-08] MEDS ORDERED: NITROGLYCERIN SL TABS 0.4 MG TAB SUBLINGUAL PRN (17:15)
[2018-06-08] MEDS ORDERED: BACLOFEN 10 MG TAB PO PRN (17:15)
[2018-06-08] MEDS ORDERED: ALBUTEROL NEBULIZED 2.5 MG/3 ML INHALATION PRN (17:15)
[2018-06-08] MEDS ORDERED: Insulin Aspart (For Pump) 100 UNIT/ML VIAL SQ-PUMP SCH (17:15)
[2018-06-08] MEDS ORDERED: INSULIN PUMP BASAL RATES 1 EACH MISC MISCELLANE PRN (17:56)
[2018-06-08] MEDS ORDERED: INSPUCOR MISCELLANE PRN (17:56)
[2018-06-08] MEDS ORDERED: INSULIN ASPART 100 UNIT/ML 1 ML 10 ML VIAL SQ PRN (17:56)
[2018-06-08 18:17] LABS: Albumin 3.4 g/dL (3.5-5.0); Calcium 9.7 mg/dL (8.4-10.2); Total Bilirubin 0.4 mg/dL (0.2-1.3); Total Protein 6.3 g/dL (6.3-8.2)
[2018-06-08] MEDS: CLOPIDOGREL 75 MG TAB PO SCH (19:01)
[2018-06-08] MEDS: metFORMIN 500 MG TAB PO SCH (19:02)
[2018-06-08] MEDS: CARVEDILOL 12.5 MG TAB PO SCH (19:04)
[2018-06-08] MEDS: INSULIN PUMP MEAL BOLUS 1 UNIT MISC MISCELLANE SCH (20:20)
[2018-06-08 20:31] LABS: Glucose,Whole Blood 352 mg/dL (75-99)
[2018-06-08] MEDS: SYMBICORT 160-4.5 MCG INHALER INHALATION PRN (20:50)
[2018-06-08] MEDS: ASPIRIN 81 MG PO SCH (21:36)
[2018-06-08] MEDS: ATORVASTATIN 80 MG TAB PO SCH (21:36)
[2018-06-08] MEDS: ceFAZolin IN SWFI 2 GM/20 ML SYRINGE IVP SCH (21:37)
[2018-06-08] MEDS: busPIRone HCl 5 MG TAB PO SCH (21:37)
[2018-06-08] MEDS: EZETIMIBE 10 MG TAB PO SCH (21:37)
[2018-06-08] MEDS: buPROPion SR 150 MG TABLET.ER PO SCH (21:37)
[2018-06-08] MEDS: SENNOSIDES-DOCUSATE SODIUM 1 EACH TAB PO SCH (21:38)
[2018-06-08] MEDS: SACUBITRIL/VALSARTAN 24 MG-26 MG TABLET PO SCH (21:38)
--- NOTE | 2018-06-08 23:24 | OP ---
OPERATIVE REPORT DATE OF SURGERY: 06/08/2018 PREOPERATIVE DIAGNOSES: 1. Unstable left bimalleolar ankle fracture dislocation. 2. Coronary artery disease, status post cardiac stents. 3. Osteoporosis. 4. Peripheral vascular disease. POSTOPERATIVE DIAGNOSES: 1. Unstable left bimalleolar ankle fracture dislocation. 2. Coronary artery disease, status post cardiac stents. 3. Osteoporosis. 4. Peripheral vascular disease. PROCEDURE: 1. Open reduction and internal fixation of left lateral malleolus. 2. Nonoperative management of left medial malleolus fracture. 3. Manual application of joint stress by physician for radiography, left ankle. 4. Application of short-leg splint by physician. SURGEON: Dr. Fred Garza ASSISTING: Ivana Eason PA-C (Ivana Eason PA-C was required as a skilled furniture removalist's assistant for patient positioning, surgical exposure, reduction of fracture, placement of hardware, closure of wound and application of splint.) ANESTHESIA: General plus popliteal and saphenous nerve block. FLUIDS: 400 mL crystalloid. BLOOD LOSS: 10 mL. INDICATION: The patient is a very pleasant 67-year-old female with multiple medical problems, including coronary artery disease, status post stenting. She sustained a fall at the beginning of this month resulting in a left ankle fracture dislocation. She was seen in the emergency department and underwent a closed reduction and splinting. She was admitted due to her multiple medical problems to the hospital for placement. Orthopedics was consulted. The patient had her splint removed and was found to have significant swelling and multiple hemorrhagic fracture blisters. The fracture blisters were unroofed. A Silvadene dressing was applied. A closed reduction of the ankle was performed and a well-padded bulky Flores splint was placed. The patient was then discharged to rehab. The patient has been following up in our office to monitor her swelling. She eventually had resolution of her swelling with wrinkling of the skin. I had a lengthy discussion with the patient and her about treatment options. The patient understands that while she has multiple medical problems, she is fairly active. We discussed that her ankle fracture is unstable and her outcome will be significantly improved with an anatomic reduction of the ankle. We discussed that she is at a significant risk for having a complication due to her multiple medical problems. She did have wrinkling of the skin and no skin at risk at the last examination in the office. She also had a warm and well-perfused left foot and had a palpable pedal pulse. We discussed the potential risks and complications of surgery, including but not limited to risk of anesthesia, risk of superficial infection, risk of deep infection, risk of delayed wound healing, risk of wound necrosis, risk of fracture nonunion, risk of fracture malunion, risk of hardware failure, risk of postoperative displacement of her fractures, risk of need for further surgery, risk of post-traumatic arthritis, risk of chronic pain, risk of chronic swelling, risk of inability to regain pre-injury level of function, risk of DVT, risk of PE, risk of other medical complications and possibly loss of life or limb. The patient voiced her understanding of this and provided her verbal and written consent to go forward with surgery. She acknowledged that she is at an increased risk of having a complication due to her multiple medical problems. She also acknowledges the unstable nature of her fracture and that it requires open reduction and internal fixation to provide her with the best possible chance of regaining her pre-injury level of function. PROCEDURE DESCRIPTION: The patient was identified in Preoperative Holding and the correct left ankle was marked with my initials. I reviewed the consent form with the patient and her . All of their questions were answered. The patient had a popliteal and saphenous nerve block placed by Anesthesia. The patient was then brought back to the operating room by Anesthesia. She was positioned on the OR table, where a general anesthetic and preoperative antibiotics were administered. She was positioned on the OR table with a bump under the left buttock and a ramp under the left leg to facilitate imaging. A tourniquet was applied to the proximal aspect of the left thigh. The right leg was secured to the table with foam and tape. Prior to starting surgery, an x-ray was taken of the left ankle. The fibula fracture was significantly displaced and the talus was subluxed out of the ankle mortise. On inspection of the lateral skin, there was resolved swelling and wrinkling of the skin. All the hemorrhagic fracture blisters had epithelialized. The left leg was then prepped and draped in the standard sterile fashion. Prior to starting surgery, a timeout was performed identifying the correct patient, operative extremity and procedure. The patient's leg was then elevated, exsanguinated with an Esmarch bandage, and the tourniquet was inflated to 250 mmHg. I began by outlining a straight lateral incision over the distal fibula. Skin incision was made with a scalpel and dissection was carried down carefully through the subcutaneous tissue with tenotomy scissors. The periosteum was identified and sharply incised over the distal fibula distally and the peroneal muscles proximally. I took care to not inadvertently cut any branches of the superficial peroneal nerve. The fracture was immediately identified. Early callus was sharply debrided. The fracture was completely mobilized. I was then able to gently reduce the fracture with a small [id number] reduction clamp. The fracture appeared to be anatomically reduced clinically and on fluoroscopy the fracture was out to length and the medial clear space was reduced. I then placed a 2.7 mm lag screw across the fracture. A 2.7 mm drill bit was used to create a gliding hole for the anterior cortex of the proximal shaft, and a 2.0 mm drill bit was used to create a threaded path in the posterior fragment. A fully threaded 2.7 mm screw was placed across the fracture, generating excellent compression. I was then able to remove the clamps and the reduction held. I then placed a contoured distal fibular locking plate over the lateral aspect of the fibula. Once it was in good position, a non-locking 3.5 mm screw was placed just proximal to the fracture to bring the plate down to bone. I then proceeded to place an additional 3 non-locking screws proximally, holding the plate centered on the fibula. I then placed locking 2.7 mm screws into the distal fragment. I then removed the initial 3.5 mm screw and placed a syndesmotic screw due to the patient's multiple medical problems and medical comorbidities to provide added fixation. At this point, attention was turned medially. On fluoroscopy, the medial malleolar fragment appeared to be minimally reduced and there was no widening of the medial clear space. I elected to manage the medial malleolar fragment nonoperatively due to its small size and minimal displacement after reduction of the fibula. At this point, the lateral wound was copiously irrigated. The periosteum and fascia over the peroneal muscles was closed with a running 0 Vicryl stitch. The deep subcutaneous tissue was reapproximated using 2-0 Vicryl. The skin was closed using 3-0 nylon Allgower modification of the Donati stitch. The tourniquet was let down. A sterile dressing consisting of brown quarter-inch stretchy Steri- Strips, Betadine-soaked Adaptic, 4x4 and Webril was applied. The drapes were taken down and a well-padded bulky Flores splint was placed with the ankle in neutral. The patient was then awoken from her anesthetic, transferred to a gurney and brought to PACU, having tolerated the procedure well. PLAN: The patient is going to be admitted for pain control and an internal medicine consultation. She can resume Plavix as soon as Cardiology and Internal Medicine wish. She will need to be strictly [id number] on her left leg. She will follow up in the office in one week for splint removal and a wound check. I anticipate 10-12 weeks of [id number]. MMODL / IJN: [id number] /
[2018-06-09 05:02] LABS: Hemoglobin A1C 7.7 % (4.0-6.0)
[2018-06-09] MEDS: LEVOTHYROXINE 75 MCG TAB PO SCH (05:51)
[2018-06-09] MEDS: ceFAZolin IN SWFI 2 GM/20 ML SYRINGE IVP SCH (05:52)
[2018-06-09] MEDS: SODIUM CHLORIDE 0.9% 1,000 ML IV SCH ×3 (05:53→17:56)
[2018-06-09] MEDS: LACTATED RINGERS 1,000 ML IV SCH (07:11)
[2018-06-09] MEDS: INSULIN PUMP MEAL BOLUS 1 UNIT MISC MISCELLANE SCH ×4 (07:12→22:16)
[2018-06-09 07:37] LABS: Glucose,Whole Blood 135 mg/dL (75-99)
[2018-06-09] MEDS: SYMBICORT 160-4.5 MCG INHALER INHALATION PRN ×2 (07:55→20:58)
[2018-06-09] MEDS ORDERED: CLOPIDOGREL 75 MG TAB PO SCH (09:00)
--- NOTE | 2018-06-09 11:20 | P.CONS ---
History of Present Illness - Reason for Consult Consult date: 06/09/18 Medical management - History of Present Illness This is a 67-year-old female patient of Dr. Burgess with past medical history for moderate persistent asthma, diabetes mellitus type 2 with diabetic neuropathy on insulin pump, chronic kidney disease stage III, hypothyroidism, hypertension, coronary artery disease status post myocardial infarction with coronary stent in 2008, coronary artery bypass graft in 2012 for 3 vessels, January 2018 status post stent to circumflex currently on Plavix, history of severe cardiomyopathy status post single-chamber AICD upgraded to biventricular AICD placement on April 19, cardiac ablation for SVT, osteoarthritis, recurrent depression. Patient had a recent hospitalization for left ankle fracture and [facility] for surgical intervention under the care of Dr. Garza. Yesterday, patient underwent open reduction internal fixation of the left lateral malleolus. The patient is to be resumed back on Plavix. Patient is to be strict nonweightbearing on her left leg and then follow-up with Dr. Garza. She states she has no pain to the ankle at this time due to block. She states that blood sugars have been running in good range for her but there was one reading in the 300s last pm. A1C 7.7 and was 9.5 in January. Review of Systems All systems: negative Constitutional: Denies chills, Denies fatigue, Denies fever, Denies lethargy, Denies malaise, Denies poor appetite, Denies weakness Eyes: denies blurred vision, denies pain Ears, nose, mouth and throat: Denies dysphagia, Denies headache, Denies sore throat, Denies vertigo Cardiovascular: Denies chest pain, Denies decreased exercise tolerance, Denies dyspnea on exertion, Denies edema, Denies leg edema, Denies lightheadedness, Denies shortness of breath Respiratory: Denies cough, Denies cough with sputum, Denies dyspnea, Denies excessive sputum, Denies hemoptysis, Denies home oxygen, Denies wheezing Gastrointestinal: Denies abdominal pain, Denies diarrhea, Denies loss of appetite, Denies melena, Denies nausea, Denies vomiting Genitourinary: Denies dysuria, Denies hematuria, Denies urgency, Denies urinary frequency Musculoskeletal: Denies myalgias Integumentary: Reports wounds, Denies pruritus, Denies rash Neurological: Reports gait dysfunction, Denies change in mentation, Denies confusion, Denies numbness, Denies weakness Psychiatric: Denies anxiety, Denies depression Endocrine: Denies fatigue, Denies weight change Past Medical History Past Medical History: Asthma, Blood Disorder, Coronary Artery Disease (CAD), Chest Pain / Angina, Heart Failure, Diabetes Mellitus, Eye Disorder, GERD/Reflux , Hyperlipidemia, Hypertension, Myocardial Infarction (LA), Musculoskeletal Disorder, Osteoarthritis (OA), Renal Disease, Skin Disorder, Supraventricular Tachycardia (SVT), Thyroid Disorder Additional Past Medical History / Comment(s): USES INSULIN PUMP. VITILIGO-FACE. ANEMIA. DIZZINESS OFF & ON, HERNIATED DISCS L1,L2,L3,L4-L5, PINCHED SCIATIC NERVE. OSTEOPENIA. HIATAL HERNIA. ELEV LFS. OCC NT BUE. MILD Neuropathy. DIABETIC RETINOPATHY. TINNITUS. FX LT ANKLE, IN TEMPORARY BOOT/CAST. Last Myocardial Infarction Date:: June 2009, 01/09/18 History of Any Multi-Drug Resistant Organisms: None Reported Past Surgical History: AICD, Cardiac Ablation, Cholecystectomy, Coronary Bypass/ CABG, Heart Catheterization, Heart Catheterization With Stent, Hysterectomy, Pacemaker, Tonsillectomy Additional Past Surgical History / Comment(s): TRIPLE BYPASS 2012. EXC. CATARACTS WITH LENS IMPLANTS. DEFIBRILLATOR ST.ESME 2010; DUAL AICD 04/14/18. 3 cardiac stents, LAST 01/2018. CARDIAC Ablation 1994. LIVER BIOPSY (FATTY LIVER). Past Anesthesia/Blood Transfusion Reactions: Family History of Problems w/ Anesthesia, Postoperative Nausea & Vomiting (PONV) Additional Past Anesthesia/Blood Transfusion Reaction / Comm: DAUGHTER'S HAVE PONV. (HX nausea from iron infusions) Date of Last Stent Placement:: 2008 x2, 01/2018 X1 Type of Cardiac Device: Permanent Pacemaker, AICD Device Placement Date:: 2010 Smoking Status: Never smoker - Past Family History Mother Family Medical History: Thyroid Disorder Additional Family Medical History / Comment(s): HEART DISEASE, Father Family Medical History: Diabetes Mellitus Additional Family Medical History / Comment(s): HEART DISEASE Sister(s) Family Medical History: Cancer Additional Family Medical History / Comment(s): 1/2 sister-thyroid cancer; 1/2 SIBLINGS W/ CAD. Medications and Allergies Home Medications Medication Instructions Recorded Confirmed Type Aspirin [Adult Low Dose Aspirin EC] 162 mg PO BID 12/27/15 06/06/18 History Budesonide-Formot 160-4.5 Mcg 2 puff INHALATION BID PRN 12/27/15 06/08/18 History [Symbicort 160-4.5 Mcg Inhaler] Carvedilol [Coreg] 12.5 mg PO BID 12/27/15 06/06/18 History Ezetimibe [Zetia] 10 mg PO HS 12/27/15 06/06/18 History Furosemide [Lasix] 20 mg PO DAILY 12/27/15 06/08/18 History Montelukast [Singulair] 10 mg PO DAILY 12/27/15 06/06/18 History fluvoxaMINE MALEATE [Luvox] 300 mg PO HS 12/27/15 06/06/18 History metFORMIN HCL [Glucophage] 500 mg PO BID 12/27/15 06/08/18 History Albuterol Inhaler [Ventolin Hfa 2 puff INHALATION Q4-6H PRN 03/29/17 06/08/18 History Inhaler] Ergocalciferol [Vitamin D2 50,000 unit PO PRUITT 03/29/17 06/08/18 History (DRISDOL)] buPROPion SR [Wellbutrin SR] 150 mg PO BID 03/29/17 06/06/18 History busPIRone HCL 30 mg PO QAM 03/29/17 06/06/18 History Baclofen [Lioresal] 20 mg PO TID PRN 01/10/18 06/08/18 History Clopidogrel [Plavix] 75 mg PO DAILY #30 tab 01/13/18 06/06/18 Rx Nitroglycerin Sl Tabs [Nitrostat] 0.4 mg SUBLINGUAL Q5M PRN #25 tab 01/13/18 Rx Sacubitril/Valsartan [Entresto 24 1 tab PO BID 04/11/18 06/08/18 History mg-26 mg Tablet] Insulin Aspart (For Pump) [NovoLOG 0.01 unit SQ-PUMP CONTINUOUS 05/17/18 History (For Pump)] Levothyroxine Sodium [Synthroid] 150 mcg PO DAILY 05/17/18 06/06/18 History busPIRone HCL 15 mg PO HS 05/17/18 06/06/18 History Acetaminophen [Tylenol Extra 500 - 1,000 mg PO Q6H PRN 06/06/18 06/08/18 History Strength] Rosuvastatin Calcium [Crestor] 40 mg PO HS 06/06/18 06/08/18 History traMADol HCL [Ultram] 100 mg PO Q8H PRN 06/06/18 06/08/18 History Allergies Allergy/AdvReac Type Severity Reaction Status Date / Time metronidazole [From Flagyl] Allergy Rash/Hives Verified 06/06/18 11:30 Physical Exam Vitals: Vital Signs Temp Pulse Pulse Pulse Resp BP Pulse Ox 06/09/18 07:00 97.9 F 64 16 143/63 95 06/09/18 00:12 98.4 F 64 16 124/65 96 06/09/18 00:10 16 06/08/18 21:03 69 06/08/18 20:52 66 06/08/18 20:20 64 15 06/08/18 19:00 97.5 F L 64 15 134/66 96 06/08/18 18:00 81 16 123/66 97 06/08/18 17:45 74 16 126/66 95 06/08/18 17:30 74 16 127/54 96 06/08/18 17:15 74 16 126/66 95 06/08/18 17:00 74 16 129/56 97 06/08/18 16:45 76 16 128/69 97 06/08/18 16:30 71 16 138/81 95 06/08/18 16:15 75 16 124/60 96 06/08/18 16:00 98.1 F 75 16 148/76 92 L 06/08/18 15:34 72 16 142/67 100 06/08/18 15:19 71 16 140/78 100 06/08/18 15:04 77 16 142/63 100 06/08/18 14:49 77 16 145/67 96 06/08/18 12:15 20 124/57 98 06/08/18 10:52 97.6 F 64 20 119/59 98 Intake and Output 06/08/18 06/09/18 06/09/18 22:59 06:59 14:59 Intake Total 1420 1280 Balance 1420 1280 Intake: IV 100 Intake, IV Titration 800 800 Amount Sodium Chloride 0.9% 1, 800 800 000 ml @ 100 mls/hr IV . Q[facility]H [facility] Rx#:[id number] Oral 520 480 Other: Voiding Method Bedside Commode # Voids 1 2 1 Weight 91.626 kg Gen: This is a 67-year-old female. She is sitting up in bed and appears to be comfortable. Patient does appear to be quite anxious. HEENT: Head is atraumatic, normocephalic. Pupils equal, round. Sclerae is anicteric. Conjunctiva pink. Mucous members of the mouth are moist. NECK: Supple. No JVD. No lymphadenopathy. No thyromegaly. LUNGS: Clear to auscultation. No wheezes or rhonchi. No intercostal retractions. HEART: Regular rate and rhythm. No murmur. Pacemaker to the left anterior chest wall ABDOMEN: Soft. Bowel sounds are present. No masses. No tenderness. EXTREMITIES: No pedal edema. No calf tenderness. Patient has a large dressing/ splint on the left lower leg. NEUROLOGICAL: Patient is awake, alert and oriented x3. Cranial nerves 2 through 12 are grossly intact. Results CBC & Chem 7: 06/08/18 17:26 Labs: Abnormal Lab Results - Last 24 Hours (Table) 06/08/18 06/08/18 06/08/18 Range/Units 11:00 15:04 16:29 Chloride (98-107) mmol/L BUN (7-17) mg/dL Glucose (74-99) mg/dL POC Glucose (mg/dL) 137 H 143 H 143 H (75-99) mg/dL Hemoglobin A1c (4.0-6.0) % AST (14-36) U/L Albumin (3.5-5.0) g/dL 06/08/18 06/08/18 06/08/18 Range/Units 17:26 17:26 20:19 Chloride 108 H (98-107) mmol/L BUN 21 H (7-17) mg/dL Glucose 202 H (74-99) mg/dL POC Glucose (mg/dL) 352 H (75-99) mg/dL Hemoglobin A1c 7.7 H (4.0-6.0) % AST 52 H (14-36) U/L Albumin 3.4 L (3.5-5.0) g/dL 06/09/18 Range/Units 07:09 Chloride (98-107) mmol/L BUN (7-17) mg/dL Glucose (74-99) mg/dL POC Glucose (mg/dL) 135 H (75-99) mg/dL Hemoglobin A1c (4.0-6.0) % AST (14-36) U/L Albumin (3.5-5.0) g/dL Assessment and Plan Plan: 1. Left ankle fracture status post open reduction and internal fixation. Patient is strict nonweightbearing on the left side. Patient will need PT and OT evaluations. Incentive spirometry to reduce incidence of atelectasis and hospital-acquired pneumonia. Continue current pain management. 2. Diabetes mellitus type 2, currently on insulin pump. Insulin pump will be continued, metformin 500 mg twice daily. 3. Severe cardiomyopathy status post upgrade AICD to biventricular done on April 19. Continue Entresto, Lasix, Coreg. 4. Coronary artery disease status post 3 vessel CABG, stents. Patient is currently on Plavix, aspirin, statin, Coreg, Zetia. Cardiology consult requested. 5. Chronic kidney disease stage III, stable. Monitor renal function, avoid nephrotoxic agents. 6. Hypertension. Continue Coreg 12.5 mg twice daily, Entresto 24/26 mg. 7. Moderate persistent asthma, stable without exacerbation. Continue Ventolin inhaler 2 puffs every 4-6 hours as needed, Symbicort 2 puffs twice daily. 8. Hypothyroidism continue levothyroxine 150 mg daily. 9. Recurrent depression and generalized anxiety disorder. Continue BuSpar 30 g in the morning 50 mg at bedtime, Wellbutrin 150 mg twice daily, fluvoxamine 300 mg at bedtime. 10. DVT prophylaxis. 11. GI prophylaxis. Pepcid. Patient will be admitted to the hospital for a minimum of 2 night stay. Discharge plan: Subacute rehab Impression and plan of care have been directed as dictated by the signing physician. Stacey Tony nurse practitioner acting as scribe for signing physician.
[2018-06-09] MEDS: FUROSEMIDE 20 MG TAB PO SCH (12:28)
[2018-06-09] MEDS: ENOXAPARIN 30 MG/0.3 ML SYRINGE SQ SCH (12:28)
[2018-06-09] MEDS: MONTELUKAST 10 MG TAB PO SCH (12:29)
[2018-06-09] MEDS: SACUBITRIL/VALSARTAN 24 MG-26 MG TABLET PO SCH ×2 (12:29→21:02)
[2018-06-09] MEDS: buPROPion SR 150 MG TABLET.ER PO SCH ×2 (12:29→21:01)
[2018-06-09] MEDS: metFORMIN 500 MG TAB PO SCH ×2 (12:30→17:06)
[2018-06-09] MEDS: busPIRone HCl 10 MG TAB PO SCH (12:30)
[2018-06-09] MEDS: CARVEDILOL 12.5 MG TAB PO SCH ×2 (12:31→17:06)
[2018-06-09] MEDS: MULTIVITAMINS, THERA 1 EACH TAB PO SCH (12:31)
[2018-06-09 12:34] LABS: Glucose,Whole Blood 178 mg/dL (75-99)
[2018-06-09] MEDS: CLOPIDOGREL 75 MG TAB PO SCH (12:35)
[2018-06-09] MEDS: ASPIRIN 81 MG PO SCH ×2 (12:45→21:00)
--- NOTE | 2018-06-09 13:09 | P.PN ---
Subjective Progress Note Date: 06/09/18 Principal diagnosis: Left bimalleolar ankle fracture This is a 67 year old female with a past medical history of moderate persistent asthma, diabetes mellitus type 2, chronic kidney disease stage III, hypothyroidism, hypertension, coronary artery disease status post myocardial infarction with coronary stent in 2008, coronary artery bypass graft in 2012, severe cardiomyopathy, osteoarthritis, and recurrent depression. Patient initially presented to the ER for an unstable dislocated left bimalleolar fracture that was reduced and splinted. Patient was subsequently admitted due to her multiple comorbities, and was found to have extensive swelling and fracture blisters present on the left lower extremity after the initial splint was removed. Patient underwent a closed reduction and application of a bulky Flores splint at that time. She was later discharged to rehab, and saw Dr. Garza in the office on an outpatient basis to monitor swelling. Once swelling subsided, patient underwent an open reduction and internal fixation of the left unstable bimalleolar fracture on 06/08/[address] Garza. Today is post-operative day #1. Patient has no new complaints today. Patient denies any significant pain in her left ankle, she states it still feels numb due to the nerve block. She states she has been transferring to the chair and bathroom with a walker without much trouble. Patient denies chest pain, shortness of breath, calf pain, nausea, vomiting, fevers or chills. Vital signs stable. Objective - Vital Signs Vital signs: Vital Signs Temp 97.9 F 06/09/18 07:00 Pulse 64 06/09/18 07:00 Resp 16 06/09/18 07:00 BP 143/63 06/09/18 07:00 Pulse Ox 95 06/09/18 07:00 Intake & Output 06/08/18 06/09/18 06/09/18 18:59 06:59 18:59 Intake Total 901 2600 Output Total 10 Balance 891 2600 Weight 91.626 kg 91.626 kg Intake: IV 901 Intake, IV Titration 1600 Amount Sodium Chloride 0.9% 1, 1600 000 ml @ 100 mls/hr IV . Q10H [facility] Rx#:[id number] Oral 1000 Output: Estimated Blood Loss 10 Other: Voiding Method Bedside Commode # Voids 2 1 - Exam On exam, patient is sitting up in the chair. Patient is alert and orientated x3. Bulky flores splint in place on left lower extremity. Splint is clean, dry, and intact. Neurovascular is intact of left lower extremity. Brisk capillary refill of left toes. Right calf is soft and nontender. - Labs CBC & Chem 7: 06/08/18 17:26 Labs: Abnormal Lab Results - Last 24 Hours (Table) 06/08/18 06/08/18 06/08/18 Range/Units 15:04 16:29 17:26 Chloride 108 H (98-107) mmol/L BUN 21 H (7-17) mg/dL Glucose 202 H (74-99) mg/dL POC Glucose (mg/dL) 143 H 143 H (75-99) mg/dL Hemoglobin A1c (4.0-6.0) % AST 52 H (14-36) U/L Albumin 3.4 L (3.5-5.0) g/dL 06/08/18 06/08/18 06/09/18 Range/Units 17:26 20:19 07:09 Chloride (98-107) mmol/L BUN (7-17) mg/dL Glucose (74-99) mg/dL POC Glucose (mg/dL) 352 H 135 H (75-99) mg/dL Hemoglobin A1c 7.7 H (4.0-6.0) % AST (14-36) U/L Albumin (3.5-5.0) g/dL Assessment and Plan Assessment: Left bimalleolar ankle fracture Plan: - Strict non-weight bearing on left leg - Keep splint in place. Keep clean, dry, and intact - Keep left leg elevated whenever possible - Continue using walker for ambulation - Pain control with [place] as needed - From an orthopedic standpoint, patient is ready for discharge to rehab when she is cleared by medicine
[2018-06-09] MEDS ORDERED: INSULIN PUMP TARGET GLUCOSE 1 EACH MISC MISCELLANE PRN (15:24)
[2018-06-09] MEDS ORDERED: INSULIN PUMP ACTIVE INSULIN 1 EACH MISC MISCELLANE PRN (15:24)
[2018-06-09 17:27] LABS: Glucose,Whole Blood 183 mg/dL (75-99)
[2018-06-09 20:43] LABS: Glucose,Whole Blood 74 mg/dL (75-99)
[2018-06-09] MEDS: ATORVASTATIN 80 MG TAB PO SCH (21:00)
[2018-06-09] MEDS: busPIRone HCl 5 MG TAB PO SCH (21:01)
[2018-06-09] MEDS: EZETIMIBE 10 MG TAB PO SCH (21:02)
[2018-06-09] MEDS: SENNOSIDES-DOCUSATE SODIUM 1 EACH TAB PO SCH (21:03)
[2018-06-10] MEDS: LACTATED RINGERS 1,000 ML IV SCH (06:05)
[2018-06-10] MEDS: SODIUM CHLORIDE 0.9% 1,000 ML IV SCH (06:05)
[2018-06-10 07:21] LABS: Glucose,Whole Blood 65 mg/dL (75-99)
[2018-06-10] MEDS: SYMBICORT 160-4.5 MCG INHALER INHALATION PRN ×2 (07:25→20:50)
[2018-06-10 07:41] LABS: Glucose,Whole Blood 77 mg/dL (75-99)
[2018-06-10] MEDS: SACUBITRIL/VALSARTAN 24 MG-26 MG TABLET PO SCH ×2 (10:04→20:18)
[2018-06-10] MEDS: LEVOTHYROXINE 75 MCG TAB PO SCH (10:04)
[2018-06-10] MEDS: CARVEDILOL 12.5 MG TAB PO SCH ×2 (10:05→17:33)
[2018-06-10] MEDS: buPROPion SR 150 MG TABLET.ER PO SCH ×2 (10:05→20:18)
[2018-06-10] MEDS: FUROSEMIDE 20 MG TAB PO SCH (10:05)
[2018-06-10] MEDS: busPIRone HCl 10 MG TAB PO SCH (10:06)
[2018-06-10] MEDS: ENOXAPARIN 30 MG/0.3 ML SYRINGE SQ SCH (10:06)
[2018-06-10] MEDS: ASPIRIN 81 MG PO SCH ×2 (10:06→20:18)
[2018-06-10] MEDS: metFORMIN 500 MG TAB PO SCH ×2 (10:07→17:34)
[2018-06-10] MEDS: HYDROcodone/APAP 5-325MG 1 EACH TAB PO PRN ×2 (10:07→17:34)
[2018-06-10] MEDS: INSULIN PUMP MEAL BOLUS 1 UNIT MISC MISCELLANE SCH ×4 (10:09→20:39)
[2018-06-10] MEDS: MONTELUKAST 10 MG TAB PO SCH (10:09)
[2018-06-10] MEDS: CLOPIDOGREL 75 MG TAB PO SCH (10:10)
[2018-06-10 12:36] LABS: Glucose,Whole Blood 139 mg/dL (75-99)
--- NOTE | 2018-06-10 13:02 | P.PN ---
Subjective Progress Note Date: 06/10/18 This is a 67-year-old female patient of Dr. Burgess with past medical history for moderate persistent asthma, diabetes mellitus type 2 with diabetic neuropathy on insulin pump, chronic kidney disease stage III, hypothyroidism, hypertension, coronary artery disease status post myocardial infarction with coronary stent in 2008, coronary artery bypass graft in 2012 for 3 vessels, January 2018 status post stent to circumflex currently on Plavix, history of severe cardiomyopathy status post single-chamber AICD upgraded to biventricular AICD placement on April 19, cardiac ablation for SVT, osteoarthritis, recurrent depression. Patient had a recent hospitalization for left ankle fracture and [facility] under the care of Dr. Garza. Yesterday, patient underwent open reduction internal fixation of the left lateral malleolus. The patient is to be resumed back on Plavix. Patient is to be strict nonweightbearing on her left leg and then follow-up with Dr. Garza. She states she has no pain to the ankle at this time due to block. She states that blood sugars have been running in good range for her but there was one reading in the 300s last pm. A1C 7.7 and was 9.5 in January. 06/10: Patient states that she has started to have pain in the left foot. She remains with large dressing and splint in place. That her blood sugars were low last night and patient instructed to decrease bolus adjustments. IV fluids were changed to saline lock. Anticipate discharge to medical [facility] today once authorization has been obtained. Medication reconciliation has been reviewed. Review of Systems All systems: negative Constitutional: Denies chills, Denies fatigue, Denies fever, Denies lethargy, Denies malaise, Denies poor appetite, Denies weakness Eyes: denies blurred vision, denies pain Ears, nose, mouth and throat: Denies dysphagia, Denies headache, Denies sore throat, Denies vertigo Cardiovascular: Denies chest pain, Denies decreased exercise tolerance, Denies dyspnea on exertion, Denies edema, Denies leg edema, Denies lightheadedness, Denies shortness of breath Respiratory: Denies cough, Denies cough with sputum, Denies dyspnea, Denies excessive sputum, Denies hemoptysis, Denies home oxygen, Denies wheezing Gastrointestinal: Denies abdominal pain, Denies diarrhea, Denies loss of appetite, Denies melena, Denies nausea, Denies vomiting Genitourinary: Denies dysuria, Denies hematuria, Denies urgency, Denies urinary frequency Musculoskeletal: Denies myalgias, complains of left ankle pain Integumentary: Reports wounds, Denies pruritus, Denies rash Neurological: Reports gait dysfunction, Denies change in mentation, Denies confusion, Denies numbness, Denies weakness Psychiatric: Denies anxiety, Denies depression Endocrine: Denies fatigue, Denies weight change Objective - Vital Signs Vital signs: Vital Signs Temp 98.0 F 06/10/18 07:00 Pulse 69 06/10/18 07:00 Resp 16 06/10/18 07:00 BP 120/56 06/10/18 07:00 Pulse Ox 98 06/10/18 07:00 Intake & Output 06/09/18 06/10/18 06/10/18 18:59 06:59 18:59 Intake Total 1180 350 Balance 1180 350 Weight 95.5 kg Intake: Intake, IV Titration 700 350 Amount Sodium Chloride 0.9% 1, 700 350 000 ml @ 100 mls/hr IV . Q10H [facility] Rx#:[id number] Oral 480 Other: Voiding Method Bedside Commode # Voids 3 1 1 - Exam Gen: This is a 67-year-old female. She is sitting up in recliner and appears to be comfortable. Patient does appear to be quite anxious. HEENT: Head is atraumatic, normocephalic. Pupils equal, round. Sclerae is anicteric. Conjunctiva pink. Mucous members of the mouth are moist. NECK: Supple. No JVD. No lymphadenopathy. No thyromegaly. LUNGS: Clear to auscultation. No wheezes or rhonchi. No intercostal retractions. HEART: Regular rate and rhythm. No murmur. Pacemaker to the left anterior chest wall ABDOMEN: Soft. Bowel sounds are present. No masses. No tenderness. EXTREMITIES: No pedal edema. No calf tenderness. Patient has a large dressing/ splint on the left lower leg. NEUROLOGICAL: Patient is awake, alert and oriented x3. Cranial nerves 2 through 12 are grossly intact. - Labs CBC & Chem 7: 06/08/18 17:26 Labs: Abnormal Lab Results - Last 24 Hours (Table) 06/09/18 06/09/18 06/09/18 Range/Units 12:20 17:15 20:31 POC Glucose (mg/dL) 178 H 183 H 74 L (75-99) mg/dL 06/10/18 Range/Units 07:07 POC Glucose (mg/dL) 65 L (75-99) mg/dL Assessment and Plan Plan: 1. Left ankle fracture status post open reduction and internal fixation. Patient is strict nonweightbearing on the left side. Patient will need PT and OT evaluations. Incentive spirometry to reduce incidence of atelectasis and hospital-acquired pneumonia. Continue current pain management. 2. Diabetes mellitus type 2, currently on insulin pump uncontrolled secondary to hypoglycemia. Patient to decrease bolus. Insulin pump will be continued, metformin 500 mg twice daily. 3. Severe cardiomyopathy status post upgrade AICD to biventricular done on April 19. Continue Entresto, Lasix, Coreg. 4. Coronary artery disease status post 3 vessel CABG, stents. Patient is currently on Plavix, aspirin, statin, Coreg, Zetia. Cardiology consult requested. 5. Chronic kidney disease stage III, stable. Monitor renal function, avoid nephrotoxic agents. 6. Hypertension. Continue Coreg 12.5 mg twice daily, Entresto 24/26 mg. 7. Moderate persistent asthma, stable without exacerbation. Continue Ventolin inhaler 2 puffs every 4-6 hours as needed, Symbicort 2 puffs twice daily. 8. Hypothyroidism continue levothyroxine 150 mg daily. 9. Recurrent depression and generalized anxiety disorder. Continue BuSpar 30 g in the morning 50 mg at bedtime, Wellbutrin 150 mg twice daily, fluvoxamine 300 mg at bedtime. 10. DVT prophylaxis. 11. GI prophylaxis. Pepcid. Discharge plan: [facility] under the care of Dr. Reaves Impression and plan of care have been directed as dictated by the signing physician. Stacey Tony nurse practitioner acting as scribe for signing physician.
[2018-06-10] MEDS: MULTIVITAMINS, THERA 1 EACH TAB PO SCH (13:39)
--- NOTE | 2018-06-10 14:42 | P.PN ---
Subjective Progress Note Date: 06/10/18 Principal diagnosis: Left bimalleolar ankle fracture This is a 67 year old female with a past medical history of moderate persistent asthma, diabetes mellitus type 2, chronic kidney disease stage III, hypothyroidism, hypertension, coronary artery disease status post myocardial infarction with coronary stent in 2008, coronary artery bypass graft in 2012, severe cardiomyopathy, osteoarthritis, and recurrent depression. Patient initially presented to the ER for an unstable dislocated left bimalleolar fracture that was reduced and splinted. Patient was subsequently admitted due to her multiple comorbities, and was found to have extensive swelling and fracture blisters present on the left lower extremity after the initial splint was removed. Patient underwent a closed reduction and application of a bulky Flores splint at that time. She was later discharged to rehab, and saw Dr. Garza in the office on an outpatient basis to monitor swelling. Once swelling subsided, patient underwent an open reduction and internal fixation of the left unstable bimalleolar fracture on 06/08/[address] Garza. Today is post-operative day #2. Patient states she is experiencing discomfort in her ankle today, although the pain has been well-controlled on [place]. She rates the pain 4/10 currently. She denies any new complaints. She is using her walker for ambulation with no issues. She states she is remaining non-weight bearing on her left lower extremity. Denies chest pain, shortness of breath, fevers, chills, or calf pain. Vital signs stable. Objective - Vital Signs Vital signs: Vital Signs Temp 98.0 F 06/10/18 07:00 Pulse 69 06/10/18 07:00 Resp 16 06/10/18 07:00 BP 120/56 06/10/18 07:00 Pulse Ox 98 06/10/18 07:00 Intake & Output 06/09/18 06/10/18 06/10/18 18:59 06:59 18:59 Intake Total 1180 350 Balance 1180 350 Weight 95.5 kg Intake: Intake, IV Titration 700 350 Amount Sodium Chloride 0.9% 1, 700 350 000 ml @ 100 mls/hr IV . Q10H [facility] Rx#:[id number] Oral 480 Other: Voiding Method Bedside Commode # Voids 3 1 1 - Exam On exam, patient is sitting up in the chair. Patient is alert and orientated x3. Bulky flores splint in place on left lower extremity. Splint is clean, dry, and intact. Patient is able to wiggle left toes without difficulty. Sensation intact to light touch of left toes. Brisk capillary refill of left toes. Right calf is soft and nontender. - Labs CBC & Chem 7: 06/08/18 17:26 Labs: Abnormal Lab Results - Last 24 Hours (Table) 06/09/18 06/09/18 06/09/18 Range/Units 12:20 17:15 20:31 POC Glucose (mg/dL) 178 H 183 H 74 L (75-99) mg/dL 06/10/18 Range/Units 07:07 POC Glucose (mg/dL) 65 L (75-99) mg/dL Assessment and Plan Assessment: Left bimalleolar ankle fracture Plan: - Strict non-weight bearing on left leg - Keep splint in place. Keep clean, dry, and intact - Keep left leg elevated whenever possible - Continue using walker for ambulation - Pain control with [place] as needed - From an orthopedic standpoint, patient is ready for discharge to rehab when she is cleared by medicine
--- NOTE | 2018-06-10 15:29 | P.DS ---
Providers Date of admission: 06/08/18 Attending physician: Fred Garza Consults: 06/08/18 12:32 Consult Physician Routine Consulting Provider: Renata Burgess Consult Reason/Comments: post op medical management Do you want consulting provider notified?: Yes Primary care physician: Renata Burgess [facility] Course: This is a 67-year-old female with a past medical history of moderate persistent asthma, diabetes mellitus type 2, chronic kidney disease stage III, coronary artery disease status post myocardial infarction with coronary stent in 2008, coronary artery bypass graft in 2012, severe cardiomyopathy, osteoarthritis, and recurrent depression who is admitted to [facility] on 06/08/18 after sustaining an unstable dislocated left bimalleolar fracture. Patient initially presented to the ER where she had a reduction and splint placed. Patient was subsequently admitted due to her multiple comorbidities. While inpatient, a closed reduction and application of a bulky Flores splint was performed. There was extensive swelling and fracture blisters at this time, therefore patient was discharged to rehab and followed as an outpatient by Dr. Garza. Once swelling subsided and fracture blisters healed, patient was scheduled for an open reduction internal fixation of the unstable dislocated left bimalleolar fracture on 06/08/18. The procedure was performed without complication or sequelae. The patient is doing fairly well postoperatively. Vital signs and labs are stable on postoperative day #2. Patient denies chest pain, shortness of breath, fevers, or chills. Patient was examined bedside today. Patient is alert and orientated x3. A bulky Flores splint is in place on the left lower extremity. Splint is clean, dry, and intact. Neurovascular is intact of the left lower extremity. Brisk capillary refill of left toes. Right calf is soft and nontender. Patient is discharged to [facility] in good condition. Patient will follow-up with Dr. Garza in the office in 1 week for a wound check. Please see med rec for accurate list of discharge medication Plan - Discharge Summary Discharge Rx Participant: Yes New Discharge Prescriptions: New Docusate [Colace] 100 mg PO BID #60 capsule Hydrocodone/Acetaminophen [[place] 5-325] 1 - 2 tab PO Q4-6H PRN #50 tab PRN Reason: Pain Multivitamins, Thera [Multivitamin (formulary)] 1 each PO DAILY@1200 tab Continue Budesonide-Formot 160-4.5 Mcg [Symbicort 160-4.5 Mcg Inhaler] 2 puff INHALATION BID PRN PRN Reason: Shortness Of Breath metFORMIN HCL [Glucophage] 500 mg PO BID fluvoxaMINE MALEATE [Luvox] 300 mg PO HS Carvedilol [Coreg] 12.5 mg PO BID Furosemide [Lasix] 20 mg PO DAILY Montelukast [Singulair] 10 mg PO DAILY Ezetimibe [Zetia] 10 mg PO HS Aspirin [Adult Low Dose Aspirin EC] 162 mg PO BID Albuterol Inhaler [Ventolin Hfa Inhaler] 2 puff INHALATION Q4-6H PRN PRN Reason: sob buPROPion SR [Wellbutrin SR] 150 mg PO BID busPIRone HCL 30 mg PO QAM Ergocalciferol [Vitamin D2 (DRISDOL)] 50,000 unit PO PRUITT Baclofen [Lioresal] 20 mg PO TID PRN PRN Reason: Pain Clopidogrel [Plavix] 75 mg PO DAILY #30 tab Nitroglycerin Sl Tabs [Nitrostat] 0.4 mg SUBLINGUAL Q5M PRN #25 tab PRN Reason: Chest Pain Sacubitril/Valsartan [Entresto 24 mg-26 mg Tablet] 1 tab PO BID busPIRone HCL 15 mg PO HS Levothyroxine Sodium [Synthroid] 150 mcg PO DAILY Insulin Aspart (For Pump) [NovoLOG (For Pump)] 0.01 unit SQ-PUMP CONTINUOUS Acetaminophen [Tylenol Extra Strength] 500 - 1,000 mg PO Q6H PRN PRN Reason: Pain Rosuvastatin Calcium [Crestor] 40 mg PO HS Discontinued traMADol HCL [Ultram] 100 mg PO Q8H PRN PRN Reason: Pain Discharge Medication List Aspirin [Adult Low Dose Aspirin EC] 162 mg PO BID 12/27/15 [History] Budesonide-Formot 160-4.5 Mcg [Symbicort 160-4.5 Mcg Inhaler] 2 puff INHALATION BID PRN 12/27/15 [History] Carvedilol [Coreg] 12.5 mg PO BID 12/27/15 [History] Ezetimibe [Zetia] 10 mg PO HS 12/27/15 [History] Furosemide [Lasix] 20 mg PO DAILY 12/27/15 [History] Montelukast [Singulair] 10 mg PO DAILY 12/27/15 [History] fluvoxaMINE MALEATE [Luvox] 300 mg PO HS 12/27/15 [History] metFORMIN HCL [Glucophage] 500 mg PO BID 12/27/15 [History] Albuterol Inhaler [Ventolin Hfa Inhaler] 2 puff INHALATION Q4-6H PRN 03/29/17 [ History] Ergocalciferol [Vitamin D2 (DRISDOL)] 50,000 unit PO PRUITT 03/29/17 [History] buPROPion SR [Wellbutrin SR] 150 mg PO BID 03/29/17 [History] busPIRone HCL 30 mg PO QAM 03/29/17 [History] Baclofen [Lioresal] 20 mg PO TID PRN 01/10/18 [History] Clopidogrel [Plavix] 75 mg PO DAILY #30 tab 01/13/18 [Rx] Nitroglycerin Sl Tabs [Nitrostat] 0.4 mg SUBLINGUAL Q5M PRN #25 tab 01/13/18 [Rx ] Sacubitril/Valsartan [Entresto 24 mg-26 mg Tablet] 1 tab PO BID 04/11/18 [ History] Insulin Aspart (For Pump) [NovoLOG (For Pump)] 0.01 unit SQ-PUMP CONTINUOUS 12/27 [History] Levothyroxine Sodium [Synthroid] 150 mcg PO DAILY 05/17/18 [History] busPIRone HCL 15 mg PO HS 05/17/18 [History] Acetaminophen [Tylenol Extra Strength] 500 - 1,000 mg PO Q6H PRN 06/06/18 [ History] Rosuvastatin Calcium [Crestor] 40 mg PO HS 06/06/18 [History] Docusate [Colace] 100 mg PO BID #60 capsule 06/10/18 [Rx] Hydrocodone/Acetaminophen [[place] 5-325] 1 - 2 tab PO Q4-6H PRN #50 tab 06/10/18 [Rx] Multivitamins, Thera [Multivitamin (formulary)] 1 each PO DAILY@1200 tab [Rx] Follow up Appointment(s)/Referral(s): Renata Burgess MD [Primary Care Provider] - 1 Week (after discharge from [facility]) Fred Garza MD [Medical Doctor] - 1 Week Activity/Diet/Wound Care/Special Instructions: 1. Strict non-weight bearing on your left leg 2. Do not remove your splint - keep splint clean and dry 3. Keep left leg elevated 4. Use knee scooter, crutches or walker to ambulate 5. Take pain medications as prescribed and take a stool softener such as colace while taking [place] for pain 6. Follow-up in the office with Dr. Garza in 1 week for a wound check 7. Call [facility] with any questions or concerns, Discharge Disposition: TRANSFER TO SNF/ECF
[2018-06-10 17:35] LABS: Glucose,Whole Blood 136 mg/dL (75-99)
[2018-06-10] MEDS: ATORVASTATIN 80 MG TAB PO SCH (20:16)
[2018-06-10] MEDS: busPIRone HCl 5 MG TAB PO SCH (20:18)
[2018-06-10] MEDS: EZETIMIBE 10 MG TAB PO SCH (20:18)
[2018-06-10] MEDS: SENNOSIDES-DOCUSATE SODIUM 1 EACH TAB PO SCH (20:18)
[2018-06-10 22:20] LABS: Glucose,Whole Blood 129 mg/dL (75-99)
[2018-06-11] MEDS: HYDROcodone/APAP 5-325MG 1 EACH TAB PO PRN ×3 (00:03→15:28)
[2018-06-11 03:05] LABS: Glucose,Whole Blood 106 mg/dL (75-99)
[2018-06-11] MEDS: LEVOTHYROXINE 75 MCG TAB PO SCH (05:46)
[2018-06-11 07:16] LABS: Glucose,Whole Blood 71 mg/dL (75-99)
[2018-06-11 08:07] VITALS: BP 120/68; PULSE 72; RESP 22; TEMP 98
[2018-06-11] MEDS: INSULIN PUMP MEAL BOLUS 1 UNIT MISC MISCELLANE SCH ×2 (08:22→13:09)
[2018-06-11] MEDS: FUROSEMIDE 20 MG TAB PO SCH (08:38)
[2018-06-11] MEDS: buPROPion SR 150 MG TABLET.ER PO SCH (08:38)
[2018-06-11] MEDS: CLOPIDOGREL 75 MG TAB PO SCH (08:39)
[2018-06-11] MEDS: busPIRone HCl 10 MG TAB PO SCH (08:39)
[2018-06-11] MEDS: CARVEDILOL 12.5 MG TAB PO SCH (08:39)
[2018-06-11] MEDS: metFORMIN 500 MG TAB PO SCH (08:39)
[2018-06-11] MEDS: ASPIRIN 81 MG PO SCH (08:39)
[2018-06-11] MEDS: ENOXAPARIN 30 MG/0.3 ML SYRINGE SQ SCH (08:40)
[2018-06-11] MEDS: MONTELUKAST 10 MG TAB PO SCH (08:47)
[2018-06-11] MEDS: SACUBITRIL/VALSARTAN 24 MG-26 MG TABLET PO SCH (08:47)
--- NOTE | 2018-06-11 10:31 | P.PN ---
Subjective Progress Note Date: 06/11/18 This is a 67-year-old female patient of Dr. Burgess with past medical history for moderate persistent asthma, diabetes mellitus type 2 with diabetic neuropathy on insulin pump, chronic kidney disease stage III, hypothyroidism, hypertension, coronary artery disease status post myocardial infarction with coronary stent in 2008, coronary artery bypass graft in 2012 for 3 vessels, January 2018 status post stent to circumflex currently on Plavix, history of severe cardiomyopathy status post single-chamber AICD upgraded to biventricular AICD placement on April 19, cardiac ablation for SVT, osteoarthritis, recurrent depression. Patient had a recent hospitalization for left ankle fracture and [facility] intervention under the care of Dr. Garza. Yesterday, patient underwent open reduction internal fixation of the left lateral malleolus. The patient is to be resumed back on Plavix. Patient is to be strict nonweightbearing on her left leg and then follow-up with Dr. Garza. She states she has no pain to the ankle at this time due to block. She states that blood sugars have been running in good range for her but there was one reading in the 300s last pm. A1C 7.7 and was 9.5 in January. 06/10: Patient states that she has started to have pain in the left foot. She remains with large dressing and splint in place. That her blood sugars were low last night and patient instructed to decrease bolus adjustments. IV fluids were changed to saline lock. Anticipate discharge to medical [facility] today once authorization has been obtained. Medication reconciliation has been reviewed. 06/11: Patient denies any new complaints. Pain is currently controlled. Patient is waiting for authorization for discharge to rehab. This may occur today. Medication reconciliation was completed yesterday. No changes today. Review of Systems All systems: negative Constitutional: Denies chills, Denies fatigue, Denies fever, Denies lethargy, Denies malaise, Denies poor appetite, generalized weakness Eyes: denies blurred vision, denies pain Ears, nose, mouth and throat: Denies dysphagia, Denies headache, Denies sore throat, Denies vertigo Cardiovascular: Denies chest pain, Denies decreased exercise tolerance, Denies dyspnea on exertion, Denies edema, Denies leg edema, Denies lightheadedness, Denies shortness of breath Respiratory: Denies cough, Denies cough with sputum, Denies dyspnea, Denies excessive sputum, Denies hemoptysis, Denies home oxygen, Denies wheezing Gastrointestinal: Denies abdominal pain, Denies diarrhea, Denies loss of appetite, Denies melena, Denies nausea, Denies vomiting Genitourinary: Denies dysuria, Denies hematuria, Denies urgency, Denies urinary frequency Musculoskeletal: Denies myalgias, complains of left ankle pain Integumentary: Reports wounds, Denies pruritus, Denies rash Neurological: Reports gait dysfunction, Denies change in mentation, Denies confusion, Denies numbness, Denies weakness Psychiatric: Denies anxiety, Denies depression Endocrine: Denies fatigue, Denies weight change Objective - Vital Signs Vital signs: Vital Signs Temp 98.1 F 06/11/18 00:39 Pulse 63 06/11/18 00:39 Resp 18 06/11/18 00:39 BP 114/68 06/11/18 00:39 Pulse Ox 97 06/11/18 00:39 Intake & Output 06/10/18 06/11/18 06/11/18 18:59 06:59 18:59 Intake Total 780 Balance 780 Weight 95.5 kg Intake: Oral 780 Other: Voiding Method Bedside Commode # Voids 1 1 # Bowel Movements 1 - Exam Gen: This is a 67-year-old female. She is sitting up in wheelchair and appears to be comfortable. Patient does appear to be quite anxious. HEENT: Head is atraumatic, normocephalic. Pupils equal, round. Sclerae is anicteric. Conjunctiva pink. Mucous members of the mouth are moist. NECK: Supple. No JVD. No lymphadenopathy. No thyromegaly. LUNGS: Clear to auscultation. No wheezes or rhonchi. No intercostal retractions. HEART: Regular rate and rhythm. No murmur. Pacemaker to the left anterior chest wall ABDOMEN: Soft. Bowel sounds are present. No masses. No tenderness. EXTREMITIES: No pedal edema. No calf tenderness. Patient has a large dressing/ splint on the left lower leg. NEUROLOGICAL: Patient is awake, alert and oriented x3. Cranial nerves 2 through 12 are grossly intact. - Labs CBC & Chem 7: 06/08/18 17:26 Labs: Abnormal Lab Results - Last 24 Hours (Table) 06/10/18 06/10/18 06/10/18 Range/Units 12:14 17:24 22:08 POC Glucose (mg/dL) 139 H 136 H 129 H (75-99) mg/dL 06/11/18 06/11/18 Range/Units 02:53 07:05 POC Glucose (mg/dL) 106 H 71 L (75-99) mg/dL Assessment and Plan Plan: 1. Left ankle fracture status post open reduction and internal fixation. Patient is strict nonweightbearing on the left side. Patient will need PT and OT evaluations. Incentive spirometry to reduce incidence of atelectasis and hospital-acquired pneumonia. Continue current pain management. 2. Diabetes mellitus type 2, currently on insulin pump uncontrolled secondary to hypoglycemia. Patient to decrease bolus. Insulin pump will be continued, metformin 500 mg twice daily. 3. Severe cardiomyopathy status post upgrade AICD to biventricular done on April 19. Continue Entresto, Lasix, Coreg. 4. Coronary artery disease status post 3 vessel CABG, stents. Patient is currently on Plavix, aspirin, statin, Coreg, Zetia. Cardiology consult requested. 5. Chronic kidney disease stage III, stable. Monitor renal function, avoid nephrotoxic agents. 6. Hypertension. Continue Coreg 12.5 mg twice daily, Entresto 24/26 mg. 7. Moderate persistent asthma, stable without exacerbation. Continue Ventolin inhaler 2 puffs every 4-6 hours as needed, Symbicort 2 puffs twice daily. 8. Hypothyroidism continue levothyroxine 150 mg daily. 9. Recurrent depression and generalized anxiety disorder. Continue BuSpar 30 g in the morning 50 mg at bedtime, Wellbutrin 150 mg twice daily, fluvoxamine 300 mg at bedtime. 10. DVT prophylaxis. 11. GI prophylaxis. Pepcid. Discharge plan: [facility] under the care of Dr. Carney. Impression and plan of care have been directed as dictated by the signing physician. Stacey Tony nurse practitioner acting as scribe for signing physician.
--- NOTE | 2018-06-11 10:32 | P.PN ---
Progress Note - Text Progress Note Date: 06/11/18 Patient is a pleasant 67-year-old female who is seen and examined the bedside for follow-up evaluation following ORIF for left unstable dislocated bimalleolar fracture performed on 06/08/2018. Dressing has remained intact her left lower extremity. Her pain is been adequately controlled. She is eating and voiding without difficulty. She has remained nonweightbearing on the left lower extremity. She has been using a walker and a wheelchair to aid in ambulation. She feels she is ready for discharge. She is planning for discharge today to [facility]. He has no new complaints of the bedside. Physical Exam: Patient is awake, alert, and oriented 3 Vital signs stable Good chest excursion with deep inspiration and expiration Abdomen soft nontender No signs or symptoms of DVT; no calf pain on the right Bulky Flores splint intact over the left lower extremity Dressing is clean, dry, and intact; no active drainage Patient is able to wiggle toes of the left foot without difficulty Neurovascularly intact left lower extremity Active range of motion of left knee without difficulty Assessment: Status post ORIF of unstable dislocated left bimalleolar fracture Left ankle pain History of diabetes2, chronic any disease stage III, coronary artery disease status post myocardial infarction with coronary stent placement, coronary artery bypass graft in 2012, severe cardiomyopathy, osteoarthritis, and recurrent depression Plan: 1. Patient is cleared for discharge to [facility]. She will keep her Flores splint intact over the left lower extremity. She will remain strict nonweightbearing on the left lower extremity. She may use a walker, crutches, or knee scooter to aid in ambulation. She should keep her dressing clean, dry, and intact. He may elevate the left lower extremity and apply ice over the splint for comfort and support as needed. She should take medications as prescribed. She'll plan to follow-up in the outpatient setting with Dr. Garza proximally 1 week for further evaluation. 2. Patient has been cleared for discharge by medicine. Med rec has been completed by medicine
[2018-06-11 11:41] LABS: Glucose,Whole Blood 146 mg/dL (75-99)
[2018-06-11] MEDS: MULTIVITAMINS, THERA 1 EACH TAB PO SCH (12:17)
[2018-06-12] MEDS ORDERED: ERGOCALCIFEROL 50,000 UNIT CAP PO SCH (12:00)
== END 2018-06-11 16:00 ==
LOC: OR 09:49 → EDSTATUS 12:30 → 4SSUR 15:18 → OR 06-11 16:00
PROVIDERS: ATTEND Orthopaedic Surgery
DX: W19.XXXA Unspecified fall, initial encounter (principal); S82.62XA Displaced fracture of lateral malleolus of left fibula, initial encounter for closed fracture; E78.5 Hyperlipidemia, unspecified; E03.9 Hypothyroidism, unspecified; J98.4 Other disorders of lung; E11.22 Type 2 diabetes mellitus with diabetic chronic kidney disease; I13.0 Hypertensive heart and chronic kidney disease with heart failure and stage 1 through stage 4 chronic kidney disease, or unspecified chronic kidney disease; N18.3 Chronic kidney disease, stage 3 (moderate); Z79.4 Long term (current) use of insulin; Z96.41 Presence of insulin pump (external) (internal); E11.40 Type 2 diabetes mellitus with diabetic neuropathy, unspecified; E11.319 Type 2 diabetes mellitus with unspecified diabetic retinopathy without macular edema; I50.9 Heart failure, unspecified; F33.9 Major depressive disorder, recurrent, unspecified; J45.40 Moderate persistent asthma, uncomplicated; I42.9 Cardiomyopathy, unspecified; Z95.810 Presence of automatic (implantable) cardiac defibrillator; I25.10 Atherosclerotic heart disease of native coronary artery without angina pectoris; Z95.5 Presence of coronary angioplasty implant and graft; K44.9 Diaphragmatic hernia without obstruction or gangrene; F41.1 Generalized anxiety disorder; Z95.1 Presence of aortocoronary bypass graft; Z86.718 Personal history of other venous thrombosis and embolism; M19.90 Unspecified osteoarthritis, unspecified site; I25.2 Old myocardial infarction; M81.0 Age-related osteoporosis without current pathological fracture; Z82.49 Family history of ischemic heart disease and other diseases of the circulatory system; Z79.890 Hormone replacement therapy; Z79.51 Long term (current) use of inhaled steroids; Z79.82 Long term (current) use of aspirin; Z79.02 Long term (current) use of antithrombotics/antiplatelets; Z79.899 Other long term (current) drug therapy; Z88.1 Allergy status to other antibiotic agents
CPT/HCPCS: 94640 ×4; 97161; 97166; 64493; 80053; 82306; 83036; 73600; 27814; C1713; J2250; J1100; S0106 ×3; J2405; J0690 ×3; J2001; J3010; J1650 ×2; J2795; J2704

== ENCOUNTER → 2018-07-19 | Outpatient (CLI) | payer MEDICARE ==
[2018-07-19 07:42] LABS: HCT 38.5 % (34.0-46.0); HGB 12.8 gm/dL (11.4-16.0); MCH 30.5 pg (25.0-35.0); MCHC 33.3 g/dL (31.0-37.0); MCV 91.6 fL (80.0-100.0); Mean Platelet Volume 7.6; Platelet Count 215 k/uL (150-450); RDW 13.3 % (11.5-15.5); WBC 6.1 k/uL (3.8-10.6)
[2018-07-19 07:52] LABS: Potassium 3.9 mmol/L (3.5-5.1)
== END | disposition home or self-care (01) ==
LOC: LABPAT 07:02
PROVIDERS: ATTEND Internal Medicine Clinical Cardiac Electrophysiology
DX: Z01.812 Encounter for preprocedural laboratory examination (principal); I25.5 Ischemic cardiomyopathy
CPT/HCPCS: 80051; 82565; 82947; 84520; 85027

== ENCOUNTER → 2018-07-21 | Day surgery (SDC) | payer MEDICARE ==
[2018-07-19 11:28] VITALS: BMI 35.7
[~2018-07-21] MED LIST changes: -DEXAMETHASONE SOD PHOSPHATE 10 MG/ML 1 ML VIAL IV ONE; -HYDROmorphone 1 MG/ML 1 ML SYRINGE IVP PRN; +LACTATED RINGERS 1,000 ML IV SCH; -MIDAZOLAM 2 MG/2 ML VIAL IV PRN; +MIDAZOLAM 2 MG/2 ML VIAL ONE; -ONDANSETRON 4 MG/2 ML VIAL IVP ONE; +PROPOFOL 10 MG/ML 20 ML VIAL IV ONE; +SODIUM CHLORIDE 0.9% 1,000 ML IV SCH; -ceFAZolin IN SWFI 2 GM/20 ML SYRINGE IVP ONE; +fentaNYL (PF) 50 MCG/ML 2 ML AMP ONE
[2018-07-21 06:35] VITALS: TEMP 97.6
[2018-07-21 06:51] LABS: Glucose,Whole Blood 212 mg/dL (75-99)
[2018-07-21 07:51] VITALS: RESP 16
[2018-07-21 08:09] VITALS: BP 111/57; PULSE 58
--- NOTE | 2018-07-21 08:49 | PCN ---
PROCEDURE NOTE Roshni Rodriguez is a patient of Dr. Dwight Jackson. She has severe cardiomyopathy and congestive heart failure, who underwent upgrade to a biventricular ICD for heart failure management. Three months after biventricular pacing she was brought in for ICD testing under anesthesia. She has a [facility] Quadra Assura MP 3369-40C VULCANIZER-D, serial #[id number]. The atrial pacing threshold was 0.7 V at 0.5 milliseconds. P waves greater than 5 mV. Pacing impedance 460 ohms. The RV pacing threshold is 1.25 V at 0.5 milliseconds. R-wave 6.3 mV and pacing impedance of 480 ohms. LV pacing threshold 2 V at 1 millisecond, pacing impedance of 400 ohms. DFT defibrillation level testing was performed under anesthesia. A DC fib shock was used to induce ventricular fibrillation. This was adequately and appropriately detected at least sensitivity without any drop outs. A 10 joule shock was unsuccessful. A 20 joule shock was successful. There was no post shock noise. The first charge time was 1.5 seconds. The last charge time was 3.6 seconds. Shock impedance 72 ohms. No post shock noise. The device was then reprogrammed. First cardioversion at 20 joules first defibrillation at max output. First cardioversion in the VT 1 zone at 20 joules, 36 joules in the VT 2 zone and 40 joules in the VF zone. Appropriate antitachycardia pacing cardioversion and defibrillation defibrillations were programmed in MADIT-RIT program. RESULT: 1. High DFT between 10 to 20 joules, 20 joules was successful, 10 joules failed. 2. Biventricular ICD was interrogated and reprogrammed accordingly. PLAN: Continue current medications without any changes. Follow up with Dr. Jackson as previously scheduled. Follow up in the device clinic in 4 months. MMODL / IJN: [id number] /
== END | disposition home or self-care (01) ==
LOC: CATHEP 05:59
PROVIDERS: ATTEND Internal Medicine Clinical Cardiac Electrophysiology
DX: I25.5 Ischemic cardiomyopathy (principal); Z45.02 Encounter for adjustment and management of automatic implantable cardiac defibrillator; I11.0 Hypertensive heart disease with heart failure; I50.22 Chronic systolic (congestive) heart failure; I48.91 Unspecified atrial fibrillation; E78.5 Hyperlipidemia, unspecified; E11.51 Type 2 diabetes mellitus with diabetic peripheral angiopathy without gangrene; Z79.4 Long term (current) use of insulin; Z95.1 Presence of aortocoronary bypass graft; I44.7 Left bundle-branch block, unspecified; Z95.5 Presence of coronary angioplasty implant and graft; Z79.2 Long term (current) use of antibiotics; Z79.02 Long term (current) use of antithrombotics/antiplatelets; Z79.82 Long term (current) use of aspirin; Z79.890 Hormone replacement therapy; Z79.51 Long term (current) use of inhaled steroids; Z79.899 Other long term (current) drug therapy; Z88.1 Allergy status to other antibiotic agents; Z88.8 Allergy status to other drugs, medicaments and biological substances
CPT/HCPCS: 93642; J2250; J3010; J2704

== ENCOUNTER → 2019-03-29 | Outpatient (CLI) | payer MEDICARE ==
[2019-03-29 14:45] LABS: Potassium 4.7 mmol/L (3.5-5.1)
== END | disposition home or self-care (01) ==
LOC: LABPAT 12:04
PROVIDERS: ATTEND Internal Medicine Clinical Cardiac Electrophysiology
DX: Z01.812 Encounter for preprocedural laboratory examination (principal); I10 Essential (primary) hypertension; I25.5 Ischemic cardiomyopathy
CPT/HCPCS: 36415; 80048

== ENCOUNTER → 2019-04-06 | Day surgery (SDC) | payer MEDICARE ==
[2019-04-04 08:49] VITALS: BMI 31.8
[~2019-04-06] MED LIST changes: -LACTATED RINGERS 1,000 ML IV SCH; -MIDAZOLAM 2 MG/2 ML VIAL ONE; -PROPOFOL 10 MG/ML 20 ML VIAL IV ONE; -fentaNYL (PF) 50 MCG/ML 2 ML AMP ONE
[2019-04-06 06:43] VITALS: RESP 18
[2019-04-06 06:48] LABS: Glucose,Whole Blood 151 mg/dL (75-99)
[2019-04-06 08:17] VITALS: BP 161/71; PULSE 53
--- NOTE | 2019-04-06 08:29 | P.PCN ---
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 I had found a small segment of any area with reasonably adequate thresholds but after dislodgment of this lead thresholds are high Battery longevity is about 4-5 days maximum Patient was brought in for left upper extremity venography and cinefluoroscopy and device interrogation Left upper extremity venography 15 mL of dye injected in the left upper arm Axillary vein is patent but at the junction of the subclavian and axillary vein there was mild stenosis noted Collaterals noted Innominate vein patent Cinefluoroscopy of the leads revealed the are in the RV lead was repositioned similar to before but the LV lead clearly had retracted several centimeters into the proximal portion of the posterior lateral vein Biventricular ICD was interrogated High LV thresholds greater than 5 V at 1 ms in all poles except the currently is poor with a threshold was around 3 V at 1 ms Impression LV lead was extracted from its original position resulting in high LV lead thresholds. While we are able to work around with high thresholds and avoid phrenic nerve stimulation the battery longevity is clearly half of what it should be She has very diminutive anterior lateral veins and even the posterior lateral vein distally had non-capture Options His bundle pacing, but she has significant conduction system disease and I suspect that this would be diffuse Implantation of the new Medtronic LV lead, screw-in Epicardial lead placement I would recommend thoracoscopic epicardial lead placement I will refer her to the thoracoscopic surgeon for this
== END ==
LOC: CATHEP 06:05
PROVIDERS: ATTEND Internal Medicine Clinical Cardiac Electrophysiology
DX: I25.5 Ischemic cardiomyopathy (principal); T82.128A Displacement of other cardiac electronic device, initial encounter; I25.10 Atherosclerotic heart disease of native coronary artery without angina pectoris; I11.0 Hypertensive heart disease with heart failure; I50.22 Chronic systolic (congestive) heart failure; I44.7 Left bundle-branch block, unspecified; I25.2 Old myocardial infarction; I48.91 Unspecified atrial fibrillation; E78.5 Hyperlipidemia, unspecified; E11.51 Type 2 diabetes mellitus with diabetic peripheral angiopathy without gangrene; I73.9 Peripheral vascular disease, unspecified; Z95.5 Presence of coronary angioplasty implant and graft; Z95.810 Presence of automatic (implantable) cardiac defibrillator; Z95.1 Presence of aortocoronary bypass graft; Z79.51 Long term (current) use of inhaled steroids; Z79.82 Long term (current) use of aspirin; Z79.899 Other long term (current) drug therapy; Z79.890 Hormone replacement therapy; Z79.84 Long term (current) use of oral hypoglycemic drugs; Z79.02 Long term (current) use of antithrombotics/antiplatelets; Z88.1 Allergy status to other antibiotic agents
CPT/HCPCS: 36005; 75820; 76000; 93284

== ENCOUNTER → 2019-04-24 | Outpatient (CLI) | payer MEDICARE ==
--- NOTE | 2019-04-24 20:40 | XR ---
EXAMINATION TYPE: XR chest 2V DATE OF EXAM: 04/24/2019 COMPARISON: Prior chest x-ray 05/17/2018 HISTORY: Preop, coronary artery disease TECHNIQUE: Frontal and lateral views of the chest are obtained. FINDINGS: Patient is post median sternotomy. There is a generator in the left pectoral region, leads are present in the right atrium, ventricle, coronary sinus. There is no focal air space opacity, pleu ral effusion, or pneumothorax seen. The cardiac silhouette size is stable, mildly enlarged. The aor ta is dense. The osseous structures are intact. There are coronary artery calcifications. IMPRESSION: No acute cardiopulmonary process. Stable cardiomegaly.
== END | disposition home or self-care (01) ==
LOC: RADXRMAIN 16:30
PROVIDERS: ATTEND Internal Medicine Cardiovascular Disease
DX: I51.7 Cardiomegaly (principal)
CPT/HCPCS: 71046

== ENCOUNTER → 2019-04-25 | Outpatient (CLI) | payer MEDICARE ==
--- NOTE | 2019-04-25 08:46 | MM ---
Reason for exam: additional evaluation requested from prior study. Last mammogram was performed 2 years and 1 month ago. History: Patient is postmenopausal. Family history of breast cancer in sister at age 50, breast cancer in 2 other sisters, breast cancer in maternal cousin, and breast cancer in paternal cousin at age 45. Took hormonal contraceptives for 6 months beginning at age 22. Physical Findings: Nurse did not find any significant physical abnormalities on exam. MG 3D Diag Mammo W/Cad YESSI Bilateral CC and MLO view(s) were taken. Prior study comparison: March 16, 2017, bilateral MG 3d screening mammo w/cad. January 23, 2016, bilateral MG 3d screening mammo w/cad. The breast tissue is heterogeneously dense. This may lower the sensitivity of mammography. Benign appearing vascular bilateral calcifications. No suspicious abnormality. Left pacemaker partially obscures breast tissue. These results were verbally communicated with the patient and result sheet given to the patient on 04/25/19. ASSESSMENT: Benign, BI-RAD 2 RECOMMENDATION: Routine screening mammogram of both breasts in 1 year. Manage on a clinical basis with regard to marked tenderness over left pacemaker.
--- NOTE | 2019-04-25 08:49 | USB ---
Reason for exam: clinical finding. History: Patient is postmenopausal. Family history of breast cancer in sister at age 50, breast cancer in 2 other sisters, breast cancer in maternal cousin, and breast cancer in paternal cousin at age 45. Took hormonal contraceptives for 6 months beginning at age 22. Indicated problem(s): lump or thickening and pain in the left breast. US Breast Limited LT Left limited breast ultrasound including focal area of concern, retroareolar and axilla demonstrates a 11 x 6 x 6mm oval, cystic lesion at 11 o'clock and three oval lymph nodes at the axilla tail measuring 7mm, 6mm and 10mm. Elongated fluid collection around subcutaneous pacemaker leads. No hypervascularity, likely seroma. These results were verbally communicated with the patient and result sheet given to the patient on 04/25/19. ASSESSMENT: Benign, BI-RAD 2 RECOMMENDATION: Routine screening mammogram of both breasts in 1 year. Manage on a clinical basis with regard to rony-implant fluid collection (likely seroma) and pain.
== END | disposition home or self-care (01) ==
LOC: RADMAMWWP 07:27
PROVIDERS: ATTEND Family Medicine
DX: N64.4 Mastodynia (principal)
CPT/HCPCS: 77066; 76642; G0279; 77062

== ENCOUNTER → 2019-04-26 | Outpatient (CLI) | payer MEDICARE ==
[2019-04-26 18:34] LABS: African American GFR (CKD) 60.6 (60.0-200.0); Anion Gap 6.5 mmol/L (4.00-12.00); BUN/Creat Ratio 21.82 Ratio (12.00-20.00); Calcium 10.1 mg/dL (8.7-10.3); Carbon Dioxide 25.5 mmol/L (21.6-31.8); Potassium 4.6 mmol/L (3.5-5.5)
[2019-04-26 18:42] LABS: T4, Free (Free Thyroxine) 0.9 ng/dL (0.80-1.80)
== END ==
LOC: LABWHC1 12:16
PROVIDERS: ATTEND Internal Medicine
DX: E11.65 Type 2 diabetes mellitus with hyperglycemia (principal); E03.9 Hypothyroidism, unspecified
CPT/HCPCS: 36415; 80048; 83036; 84439; 84443

== ENCOUNTER → 2019-04-26 | Outpatient (CLI) | payer MEDICARE ==
[2019-04-26 14:53] LABS: Basophils # (A) 0.1 k/uL (0-0.2); Basophils % (A) 1 %; Eosinophils # (A) 0.5 k/uL (0-0.7); Eosinophils % (A) 8 %; HCT 40.6 % (34.0-46.0); HGB 12.8 gm/dL (11.4-16.0); Lymphocytes # (A) 1.6 k/uL (1.0-4.8); Lymphocytes % (A) 24 %; MCH 30.1 pg (25.0-35.0); MCHC 31.4 g/dL (31.0-37.0); MCV 95.9 fL (80.0-100.0); Mean Platelet Volume 7.6; Monocytes # (A) 0.3 k/uL (0-1.0); Monocytes % (A) 5 %; Neutrophils % (A) 61 %; Platelet Count 216 k/uL (150-450); RBC 4.24 m/uL (3.80-5.40); RDW 13.9 % (11.5-15.5); WBC 6.5 k/uL (3.8-10.6)
[2019-04-26 14:56] LABS: INR 0.9 (<1.2); Partial Thromboplastin Time 24.2 sec (22.0-30.0); Prothrombin Time 10.2 sec (9.0-12.0)
== END | disposition home or self-care (01) ==
LOC: LABPAT 12:12
PROVIDERS: ATTEND Thoracic Surgery (Cardiothoracic Vascular Surgery)
DX: Z01.812 Encounter for preprocedural laboratory examination (principal); I50.9 Heart failure, unspecified; Z79.01 Long term (current) use of anticoagulants
CPT/HCPCS: 85025; 85610; 85730; 86850; 86870; 86880; 86900; 86901

== ENCOUNTER 2019-05-02 09:16 | Inpatient (IN) | payer MEDICARE ==
[~2019-05-02 09:16] MED LIST changes: +DEXAMETHASONE SOD PHOSPHATE 10 MG/ML 1 ML VIAL IV ONE; +LACTATED RINGERS 1,000 ML IV SCH; +LIDOCAINE 1% 20 ML VIAL (10MG/ML) FOR IV START INTRADERMA PRN; +ONDANSETRON 4 MG/2 ML VIAL IVP ONE; -SODIUM CHLORIDE 0.9% 1,000 ML IV SCH; +fentaNYL (PF) 50 MCG/ML 2 ML AMP IV PRN
[2019-05-02 10:52] LABS: Glucose,Whole Blood 133 mg/dL (75-99)
[2019-05-02] MEDS ORDERED: METOPROLOL TARTRATE 5 MG/5 ML VIAL IVP ONE (11:08)
[2019-05-02] MEDS ORDERED: LIDOCAINE 1% INJ 10MG/ML (20 ML MDV) ONE (11:08)
[2019-05-02] MEDS ORDERED: fentaNYL (PF) 50 MCG/ML 2 ML AMP ONE (11:08)
[2019-05-02] MEDS ORDERED: GLYCOPYRROLATE 0.2 MG/ML 2 ML VIAL ONE (11:08)
[2019-05-02] MEDS ORDERED: ROCURONIUM BROMIDE 10 MG/ML 10 ML VIAL IV ONE (11:08)
[2019-05-02] MEDS ORDERED: ePHEDrine SULFATE/0.9% NACL/PF 50 MG/5 ML SYRINGE IV ONE (11:08)
[2019-05-02] MEDS ORDERED: NEOSTIGMINE 1 MG/ML 10 ML VIAL ONE (11:08)
[2019-05-02] MEDS ORDERED: SUCCINYLCHOLINE CHLORIDE 100 MG/5 ML SYR IV ONE (11:08)
[2019-05-02] MEDS ORDERED: PROPOFOL 10 MG/ML 20 ML VIAL IV ONE (11:08)
[2019-05-02] MEDS ORDERED: MIDAZOLAM 2 MG/2 ML VIAL ONE (11:08)
[2019-05-02] MEDS ORDERED: BUPIVACAINE (PF) 0.5% 30 ML VIAL SQ ONE ×2 (11:51)
[2019-05-02] MEDS ORDERED: LACTATED RINGERS 1,000 ML IV ONE (12:26)
[2019-05-02] MEDS ORDERED: ceFAZolin 1,000 MG in SODIUM CHLORIDE 0.9% 1,000 ML IRRIGATION ONE (12:39)
[2019-05-02] MEDS ORDERED: ONDANSETRON 4 MG/2 ML VIAL IVP PRN (13:01)
[2019-05-02] MEDS ORDERED: IPRATROPIUM-ALBUTEROL 3 ML NEB IH PRN (13:01)
[2019-05-02] MEDS ORDERED: BACLOFEN 10 MG TAB PO PRN (13:01)
[2019-05-02] MEDS ORDERED: SYMBICORT 160-4.5 MCG INHALER INHALATION PRN (13:01)
[2019-05-02] MEDS ORDERED: DEXTROSE 5%-0.45% NACL 1,000 ML IV SCH (13:01)
--- NOTE | 2019-05-02 13:16 | P.OP ---
Date of Procedure: 05/02/19 Preoperative Diagnosis: Congestive heart failure Postoperative Diagnosis: Same Procedure(s) Performed: Left thoracoscopic placement of epicardial LV lead with upgrade of existing biV ICD to functioning biV ICD. Implants: Epicardial LV lead is a great patch medical reference #[id number] serial #[id number] New device is a [employer] model number [id number] serial number [id number] Anesthesia: GETA Surgeon: Lenin Hurd Residency Director #1: Eddie Golden Estimated Blood Loss (ml): 10 IV fluids (ml): 500 Urine output (ml): 100 Pathology: none sent Condition: stable Disposition: PACU Indications for Procedure: 68-year-old female with chronic congestive heart failure and cardiomyopathy. Previous coronary artery bypass grafting. Previous placement of a by the ICD. Recent failure of the LV lead due to very high thresholds. Attempt to revise this was unsuccessful. Patient was referred for epicardial LV lead placement and revision of the ICD. Operative Findings: There were moderate adhesions present in the left pleural space. These did not impede access to the left ventricle or placement of the lead. The device itself was present in the pocket with leads relatively free. There was a small amount of serous fluid present in the pocket. Description of Procedure: The patient was brought to the operating room placed supine on the operating table anesthetized and intubated. Double lumen endotracheal tube was placed and positioned appropriately with fiberoptic bronchoscopy and secured. Patient was turned in the right lateral decubitus position and the left chest sterilely prepped and draped. To 3 cm incisions were made in the left chest in the mid and posterior axillary line in the sixth and eighth interspaces respectively. Through the upper incision and the video thoracoscope was placed. Through the lower incision we gained access to the posterior pericardium and connected with the Bovie and then extended our pericardial incision using Metzenbaum scissors. Myocardium was exposed and felt to be appropriate for left ventricular lead placement. Great patch lead noted above was laced through the incision and screwed into the left ventricle. Was released from the pinon device and the end of the lead was attached to the tunneler. This was tunneled anteriorly and brought out on the skin in the inframammary fold in the anterior axillary line. This incision was then enlarged and the lead was secured in the subcutaneous fat with a 2-0 Vicryl. Small subcutaneous pocket was generated here and the lead was coiled in the pocket. This incision was then closed with skin clips. 28- Lithuanian chest tube was placed through separate stab incision and positioned posterior apically. It was secured with an 0 Ethibond suture. The to 3 cm incisions were then closed with layers of Vicryl suture after assuring good expansion of the left long on double lung ventilation. Rib blocks were performed at the level of the incisions with half percent Marcaine. Dry sterile dressings were applied and the patient was turned supine. The left anterior chest and inframammary region were then sterilely prepped and draped. The scar from the previous ICD incision was excised and the incision carried down through skin and cutaneous tissue to the ICD pocket. The ICD was freed from the proximal pocket and brought out onto the chest wall. Previous LV lead was disconnected and capped and the Secured with an 0 silk tie. We now removed the susan from the subcutaneous pocket containing the LV lead and remove the end of the LV lead from the pocket and connected it to the tunneler. It was tunneled up into the bottom of the ICD pocket and secured there with 0 Ethibond suture ligature. The new device was brought onto the field and the LV lead was connected appropriately. The atrial lead was then connected from the disconnected from the old device and connected to the new device appropriately. The RV lead was then disconnected from the old device and connected to the new device. The plug for the separate subclavian vein lead was removed from the old device and placed in the new device. The old device was now passed off the table. After assuring good hemostasis the new device was placed back in the pocket with the leads coiled behind it. It was secured to the pectoralis fashion with a post Ethibond suture. Pocket was irrigated with antibiotic solution. Pocket was closed with 2 layers of 0 Vicryl, a layer of 3-0 Vicryl and after 3-0 subcuticular stitch. The small subcutaneous space in a been used to tunnel the lead from posterior to anteriorly was closed with a 2-0 Vicryl subcutaneous stitch and a 3-0 Vicryl subcuticular stitch both wounds were then dressed with skin glue and dry sterile dressings applied. The lead was checked and it was noted to have a threshold below 1 at 0.5 pulse width. Device was functioning well. Patient was extubated and transferred to recovery in stable condition.
[2019-05-02] MEDS: HYDROmorphone 0.5 MG/0.5 ML SYRINGE IVP PRN ×3 (13:41→14:16)
[2019-05-02 14:18] LABS: Glucose,Whole Blood 194 mg/dL (75-99)
--- NOTE | 2019-05-02 14:19 | XR ---
EXAMINATION TYPE: XR chest 1V DATE OF EXAM: 05/02/2019 COMPARISON: 04/24/2019 HISTORY: 68-year-old female post lead placement TECHNIQUE: Single frontal view of the chest is obtained. FINDINGS: Mediastinum sternotomy wires and post-CABG clips. Left anterior chest wall ICD generator w ith right atrial and right ventricular leads. A coronary sinus lead is also present. In the interval, there has been placement of the BIV lead. Apically directed left-sided chest tube is now present. No appreciable pneumothorax. Patchy retrocardiac opacity and some volume loss. Heart upper limits of no rmal in size. IMPRESSION: 1. Left-sided chest tube without appreciable pneumothorax. 2. 3-lead AICD generator now with interval placement of the BIV lead. 3. Some volume loss and patchy density at the left base, likely atelectasis.
[2019-05-02] MEDS ORDERED: HYDROmorphone 0.5 MG/0.5 ML SYRINGE IVP ONE (15:16)
[2019-05-02] MEDS: IPRATROPIUM-ALBUTEROL 3 ML NEB IH SCH ×2 (15:21→20:16)
[2019-05-02] MEDS ORDERED: HYDROmorphone 1 MG/ML 1 ML SYRINGE IVP ONE (15:40)
[2019-05-02 16:44] VITALS: BMI 33.8
[2019-05-02 16:44] LABS: Glucose,Whole Blood 183 mg/dL (75-99)
[2019-05-02] MEDS: ACETAMINOPHEN IV (For NPO) 1,000 MG in EMPTY BAG 1 BAG IVPB SCH ×2 (17:27→23:38)
[2019-05-02] MEDS ORDERED: INSULIN ASPART (NovoLOG) 100 UNIT/ML VIAL SQ SCH (17:30)
[2019-05-02] MEDS: HEPARIN SODIUM,PORCINE 5,000 UNIT/ML 1 ML VIAL SQ SCH ×2 (17:31→23:44)
[2019-05-02] MEDS: KETOROLAC 30 MG/ML 1 ML VIAL IVP SCH ×2 (17:31→23:44)
[2019-05-02] MEDS: CARVEDILOL 6.25 MG TAB PO SCH (17:32)
[2019-05-02] MEDS ORDERED: INSPUCOR MISCELLANE PRN (18:01)
[2019-05-02] MEDS ORDERED: INSULIN ASPART (NovoLOG) 100 UNIT/ML VIAL SQ PRN (18:01)
[2019-05-02] MEDS ORDERED: INSULIN PUMP BASAL RATES 1 EACH MISC MISCELLANE PRN (18:01)
[2019-05-02 20:35] LABS: Glucose,Whole Blood 279 mg/dL (75-99)
[2019-05-02] MEDS ORDERED: ATORVASTATIN 80 MG TAB PO SCH (21:00)
[2019-05-02] MEDS ORDERED: ASPIRIN 81 MG PO SCH (21:00)
[2019-05-02] MEDS ORDERED: EZETIMIBE 10 MG TAB PO SCH (21:00)
[2019-05-02] MEDS ORDERED: INSULIN DETEMIR (LEVEMIR) 100 UNIT/ML SYR SQ SCH (21:00)
[2019-05-02] MEDS ORDERED: ASPIRIN PO SCH (21:00)
[2019-05-02] MEDS ORDERED: busPIRone HCl 5 MG TAB PO SCH (21:00)
[2019-05-02] MEDS: buPROPion SR 150 MG TABLET.ER PO SCH (21:52)
[2019-05-02] MEDS: SACUBITRIL/VALSARTAN 24 MG-26 MG TABLET PO SCH (21:52)
[2019-05-02] MEDS: traMADol 50 MG TAB PO PRN (21:53)
[2019-05-02] MEDS: INSULIN PUMP MEAL BOLUS 1 UNIT MISC MISCELLANE SCH (21:59)
[2019-05-03 01:59] LABS: Glucose,Whole Blood 214 mg/dL (75-99)
[2019-05-03] MEDS ORDERED: ACETAMINOPHEN TAB 500 MG TAB PO PRN (06:00)
[2019-05-03] MEDS: KETOROLAC 30 MG/ML 1 ML VIAL IVP SCH ×3 (06:10→16:25)
[2019-05-03] MEDS ORDERED: LEVOTHYROXINE 75 MCG TAB PO SCH (06:30)
[2019-05-03 06:41] LABS: Glucose,Whole Blood 187 mg/dL (75-99)
[2019-05-03] MEDS: INSULIN PUMP MEAL BOLUS 1 UNIT MISC MISCELLANE SCH ×2 (07:01→16:16)
[2019-05-03] MEDS: CARVEDILOL 6.25 MG TAB PO SCH ×2 (07:01→16:21)
[2019-05-03 07:16] LABS: Basophils % (A) 0 %; Eosinophils # (A) 0.1 k/uL (0-0.7); Eosinophils % (A) 0 %; HCT 38.7 % (34.0-46.0); HGB 12.5 gm/dL (11.4-16.0); Lymphocytes # (A) 0.6 k/uL (1.0-4.8); Lymphocytes % (A) 4 %; MCH 31.3 pg (25.0-35.0); MCHC 32.3 g/dL (31.0-37.0); Mean Platelet Volume 6.4; Monocytes # (A) 0.5 k/uL (0-1.0); Monocytes % (A) 3 %; Neutrophils # (A) 14.3 k/uL (1.3-7.7); Neutrophils % (A) 91 %; Platelet Count 209 k/uL (150-450); RBC 3.99 m/uL (3.80-5.40); RDW 13.2 % (11.5-15.5); WBC 15.6 k/uL (3.8-10.6)
[2019-05-03 07:37] LABS: Calcium 9.3 mg/dL (8.4-10.2); Potassium 4.9 mmol/L (3.5-5.1)
--- NOTE | 2019-05-03 08:03 | XR ---
EXAMINATION TYPE: XR chest 1V DATE OF EXAM: 05/03/2019 CLINICAL HISTORY: Difficulty breathing progress study. Post defibrillator placement. TECHNIQUE: Single AP portable upright view of the chest is obtained. COMPARISON: Chest x-ray from one day earlier and older studies. FINDINGS: Overlying sternal wires and mediastinal clips are redemonstrated. There is persistent card iomegaly with multi lead pacemaker/AICD and superficial BIV lead. There is persistent left apical corina st tube. There is elevated left hemidiaphragm. Patchy left greater than right bibasilar atelectasis r emains present. No pleural effusion or pneumothorax. Osseous structures are intact. IMPRESSION: Overall stable findings, cardiomegaly and elevated left hemidiaphragm with patchy left greater than right bibasilar atelectasis.
--- NOTE | 2019-05-03 08:20 | P.CRDCN ---
History of Present Illness Consult date: 05/03/19 Requesting physician: Lenin Hudr Chief complaint: Left thorascopic placement of epicardial LV lead, upgrade of Bi-V AICD History of present illness: This is a pleasant 68-year-old female who follows with Dr. Jackson and Dr. Copeland in the office. She has severe ischemic cardiomyopathy with severe chronic heart failure, history of single-chamber ICD, coronary artery disease with prior stenting, patient also had bypass surgery in 2012 with a MARTIN to the LAD, saphenous vein graft to the OM1 and the PLV branch of the circumflex,, hypertension, diabetes, hyperlipidemia, peripheral vascular disease. The patient was admitted to the hospital because of recent failure of the LV lead due to very high thresholds. The attempt to revise was unsuccessful and patient was referred for epicardial LV lead placement and revision of the AICD. Patient underwent this procedure yesterday by Dr. Hurd, she was seen and examined this morning sitting up in the chair at bedside. Her chest tube remains in place. She does complain of some pleuritic type pain when she tries to take a deep breath but otherwise feels comfortable. Chest x-ray was performed yesterday, the results were reviewed it showed left-sided chest tube without pneumothorax, 3-lead AICD generator with interval placement of a bi-V lead, some volume loss and patchy density at the left base. Chest x-ray was also performed this morning and is yet pending. Let pressure 120/70 with a heart rate of 68, 98% on 2 L of oxygen. White blood cell count 15.6, hemoglobin 12.5, platelet count 209. Sodium 135, potassium 4.9, BUN 20 and creatinine 1.0. Past Medical History Past Medical History: Asthma, Blood Disorder, Coronary Artery Disease (CAD), Chest Pain / Angina, Heart Failure, Diabetes Mellitus, Eye Disorder, GERD/Reflux, Hyperlipidemia, Hypertension, Myocardial Infarction (NE), Musculoskeletal Disorder, Osteoarthritis (OA), Renal Disease, Skin Disorder, Supraventricular Tachycardia (SVT), Thyroid Disorder Additional Past Medical History / Comment(s): USES INSULIN PUMP. VITILIGO-FACE. ANEMIA. DIZZINESS OFF & ON, HERNIATED DISCS L1,L2,L3,L4-L5, PINCHED SCIATIC NERVE. OSTEOPENIA. HIATAL HERNIA. ELEV LFS. OCC NT BUE. MILD Neuropathy. DIABETIC RETINOPATHY. TINNITUS. FX LT ANKLE, IN TEMPORARY BOOT/CAST. Last Myocardial Infarction Date:: June 2009, 01/09/18 History of Any Multi-Drug Resistant Organisms: None Reported Past Surgical History: AICD, Cardiac Ablation, Cholecystectomy, Coronary Bypass/CABG, Heart Catheterization, Heart Catheterization With Stent, Hysterectomy, Pacemaker, Tonsillectomy Additional Past Surgical History / Comment(s): 04/06/19 venogram and device interogation, TRIPLE BYPASS 2012. EXC. CATARACTS WITH LENS IMPLANTS. DEF IBRILLATOR ST.ESME 2010; DUAL AICD 04/14/18. 3 cardiac stents, LAST 01/2018. CARDIAC Ablation 1994. LIVER BIOPSY (FATTY LIVER). Past Anesthesia/Blood Transfusion Reactions: Postoperative Nausea & Vomiting (PONV) Additional Past Anesthesia/Blood Transfusion Reaction / Comment(s): DAUGHTER'S HAVE PONV. (HX nausea from iron infusions) Date of Last Stent Placement:: 2008 x2, 01/2018 X1 Type of Cardiac Device: Permanent Pacemaker, AICD Device Placement Date:: 2017 Smoking Status: Never smoker - Past Family History Mother Family Medical History: Deep Vein Thrombosis (DVT) Additional Family Medical History / Comment(s): HEART DISEASE, Father Family Medical History: Diabetes Mellitus Additional Family Medical History / Comment(s): HEART DISEASE Sister(s) Family Medical History: Cancer Additional Family Medical History / Comment(s): 2 1/2 sisters with breast cancer, 1/2 sister-thyroid cancer, 1/2 SISTER - PANCREATIC CANCER. Medications and Allergies Home Medications Medication Instructions Recorded Confirmed Type Aspirin [Adult Low Dose Aspirin EC] 81 mg PO HS 12/27/15 05/02/19 History Budesonide-Formot 160-4.5 Mcg 2 puff INHALATION BID PRN 12/27/15 05/02/19 History [Symbicort 160-4.5 Mcg Inhaler] Ezetimibe [Zetia] 10 mg PO HS 12/27/15 05/02/19 History Furosemide [Lasix] 20 mg PO DAILY 12/27/15 05/02/19 History Montelukast [Singulair] 10 mg PO DAILY 12/27/15 05/02/19 History fluvoxaMINE MALEATE [Luvox] 300 mg PO HS 12/27/15 05/02/19 History metFORMIN HCL [Glucophage] 500 mg PO BID 12/27/15 05/02/19 History Albuterol Inhaler [Ventolin Hfa 2 puff INHALATION Q4-6H PRN 03/29/17 05/02/19 History Inhaler] Ergocalciferol [Vitamin D2 50,000 unit PO PRUITT 03/29/17 05/02/19 History (DRISDOL)] buPROPion SR [Wellbutrin SR] 150 mg PO BID 03/29/17 05/02/19 History busPIRone HCL 30 mg PO QAM 03/29/17 05/02/19 History Baclofen [Lioresal] 20 mg PO TID PRN 01/10/18 05/02/19 History Clopidogrel [Plavix] 75 mg PO DAILY #30 tab 01/13/18 04/28/19 Rx Nitroglycerin Sl Tabs [Nitrostat] 0.4 mg SUBLINGUAL Q5M PRN #25 tab 01/13/18 04/28/19 Rx Sacubitril/Valsartan [Entresto 24 1 tab PO BID 04/11/18 05/02/19 History mg-26 mg Tablet] Insulin Aspart (For Pump) [NovoLOG 0.01 unit SQ-PUMP CONTINUOUS 05/17/18 05/02/19 History (For Pump)] busPIRone HCL 15 mg PO HS 05/17/18 05/02/19 History Rosuvastatin Calcium [Crestor] 40 mg PO HS 06/06/18 05/02/19 History traMADol HCl [Ultram] 100 - 200 mg PO TID PRN 07/18/18 05/02/19 History Carvedilol [Coreg] 6.25 mg PO BID 04/04/19 05/02/19 History Levothyroxine Sodium [Synthroid] 150 mcg PO DAILY 04/28/19 05/02/19 History Aspirin [Adult Low Dose Aspirin EC] 2 tab PO BID 05/02/19 05/02/19 History Allergies Allergy/AdvReac Type Severity Reaction Status Date / Time metronidazole [From Flagyl] Allergy Rash/Hives Verified 04/28/19 12:04 Physical Exam Vitals: Vital Signs Temp Pulse Pulse Pulse Pulse Resp BP 05/03/19 03:45 98.1 F 68 18 05/03/19 00:00 98.1 F 70 18 05/02/19 20:24 68 05/02/19 20:18 66 05/02/19 20:00 98 F 68 16 05/02/19 16:26 97.6 F 65 16 05/02/19 15:40 62 16 05/02/19 15:30 60 05/02/19 15:23 64 05/02/19 15:15 60 14 05/02/19 14:40 58 L 16 05/02/19 14:25 60 16 05/02/19 14:10 60 12 05/02/19 13:53 60 16 05/02/19 13:38 60 12 05/02/19 13:23 96.8 F L 63 12 05/02/19 10:13 96.9 F L 63 18 134/61 BP BP BP Pulse Ox 05/03/19 03:45 121/74 98 05/03/19 00:00 106/66 97 05/02/19 20:24 05/02/19 20:18 05/02/19 20:00 119/58 100 05/02/19 16:26 118/60 96 05/02/19 15:40 126/44 100 05/02/19 15:30 05/02/19 15:23 05/02/19 15:15 127/70 100 05/02/19 14:40 154/63 120/61 100 05/02/19 14:25 149/63 123/55 100 05/02/19 14:10 146/62 128/60 100 05/02/19 13:53 158/64 128/58 100 05/02/19 13:38 160/66 135/63 100 05/02/19 13:23 160/64 154/60 98 05/02/19 10:13 123/57 96 Intake and Output 05/02/19 05/03/19 05/03/19 22:59 06:59 14:59 Intake Total 1400 1320 Output Total 1851 Balance 1400 -531 Intake: Oral 1400 1320 Output: Chest Tube Drainage 54 Chest Tube Left 54 Drainage 22 Left Lateral Chest 22 Urine 1775 Uretheral (Sanchez) 475 Other: Voiding Method Indwelling Catheter Indwelling Catheter Weight 87.6 kg PHYSICAL EXAMINATION: GENERAL: 68-year-old female in no acute distress at the time of my exa mination HEENT: Head is atraumatic, normocephalic. Pupils equal, round. Sclera anicteric. Conjunctiva are clear. Mucous membranes of the mouth are moist. Neck is supple. There is no elevated jugular venous pressure. No carotid bruit is heard. HEART EXAMINATION: Heart S1, S2 normal. No murmur or gallop heard. CHEST EXAMINATION: Lungs reveal diminished air entry bilaterally, chest tube in place, posterior dressing dry and intact ABDOMEN: Soft, nontender. Bowel sounds are heard. No organomegaly noted. EXTREMITIES: 2+ peripheral pulses with no evidence of peripheral edema and no calf tenderness noted. NEUROLOGIC patient is awake, alert and oriented 3 . Results 05/03/19 06:59 05/03/19 06:59 CBC 05/03/19 Range/Units 06:59 WBC 15.6 H (3.8-10.6) k/uL RBC 3.99 (3.80-5.40) m/uL Hgb 12.5 (11.4-16.0) gm/dL Hct 38.7 (34.0-46.0) % Plt Count 209 (150-450) k/uL Comprehensive Metabolic Panel 05/03/19 Range/Units 06:59 Sodium 135 L (137-145) mmol/L Potassium 4.9 (3.5-5.1) mmol/L Chloride 101 (98-107) mmol/L Carbon Dioxide 23 (22-30) mmol/L BUN 20 H (7-17) mg/dL Creatinine 1.00 (0.52-1.04) mg/dL Glucose 192 H (74-99) mg/dL Calcium 9.3 (8.4-10.2) mg/dL Current Medications Generic Name Dose Route Start Last Admin Trade Name Fidelq PRN Reason Stop Dose Admin Acetaminophen 1,000 mg 05/03/19 06:00 Tylenol Tab PO Q6HR PRN Fever and/ or Mild Pain Albuterol/Ipratropium 3 ml 05/02/19 13:01 Duoneb 0.5 Mg-3 Mg/3 Ml Soln IH RT-Q1H PRN Shortness Of Breath Or Wheezing Albuterol/Ipratropium 3 ml 05/02/19 16:00 05/02/19 20:16 Duoneb 0.5 Mg-3 Mg/3 Ml Soln IH 3 ml RT-QID ISIDRA Administration Aspirin 81 mg 05/02/19 21:00 05/02/19 21:52 Aspirin PO 81 mg HS ISIDRA Administration Atorvastatin Calcium 80 mg 05/02/19 21:00 05/02/19 21:52 Lipitor PO 80 mg HS ISIDRA Administration Baclofen 20 mg 05/02/19 13:01 Lioresal PO TID PRN Pain Budesonide/Formoterol Fumarate 2 puff 05/02/19 13:01 05/02/19 20:16 Symbicort 160-4.5 Mcg Inhaler INHALATION 2 puff RT-BID PRN Administration Shortness Of Breath Bupropion HCl 150 mg 05/02/19 21:00 05/02/19 21:52 Wellbutrin Sr PO 150 mg BID ISIDRA Administration Buspirone HCl 15 mg 05/02/19 21:00 05/02/19 21:52 Buspar PO 15 mg HS ISIDRA Administration Buspirone HCl 30 mg 05/03/19 09:00 Buspar PO QAM ISIDRA Carvedilol 6.25 mg 05/02/19 17:30 05/03/19 07:01 Coreg PO 6.25 mg BID-W/MEALS [facility] Administration Clopidogrel Bisulfate 75 mg 05/03/19 09:00 Plavix PO DAILY [facility] Ezetimibe 10 mg 05/02/19 21:00 05/02/19 21:52 Zetia PO 10 mg HS ISIDRA Administration Fluvoxamine Maleate 300 mg 05/02/19 21:00 05/02/19 21:51 Luvox PO 300 mg HS [facility] Administration Furosemide 20 mg 05/03/19 09:00 Lasix PO DAILY [facility] Heparin Sodium (Porcine) 5,000 unit 05/02/19 16:15 05/02/19 23:44 Heparin SQ 5,000 unit Q8HR ISIDRA Administration Dextrose/Sodium Chloride 1,000 mls @ 20 mls/hr 05/02/19 13:01 05/02/19 17:27 Dextrose 5%-1/2ns Iv Soln IV 20 mls/hr .Q24H ISIDRA Administration Insulin Aspart 0 unit 05/02/19 18:01 Novolog SQ DAILY PRN Insulin Pump Replacement Ketorolac Tromethamine 15 mg 05/02/19 17:00 05/03/19 06:10 Toradol IVP 05/06/19 17:01 15 mg Q6HR ISIDRA Administration Levothyroxine Sodium 150 mcg 05/03/19 06:30 05/03/19 06:19 Synthroid PO Not Given DAILY@0630 ISIDRA Miscellaneous Information 1 each 05/02/19 18:01 Insulin Pump Basal Rates MISCELLANE Q6HR PRN Blood Sugar - High Protocol Miscellaneous Information 0 unit 05/02/19 21:00 05/03/19 07:01 Insulin Pump Meal Bolus MISCELLANE 5.7 unit ACHS ISIDRA Administration Protocol Miscellaneous Information 0 unit 05/02/19 18:01 Insulin Pump Correction Bolus MISCELLANE ACHS PRN Blood Sugar - High Protocol Montelukast Sodium 10 mg 05/03/19 09:00 Singulair PO DAILY ISIDRA Ondansetron HCl 4 mg 05/02/19 13:01 Zofran IVP Q8HR PRN Nausea And Vomiting Sacubitril/Valsartan 1 each 05/02/19 21:00 05/02/19 21:52 Entresto 24 Mg-26 Mg Tablet PO 1 each BID ISIDRA Administration Tramadol HCl 100 mg 05/02/19 13:01 05/02/19 21:53 Ultram PO 100 mg TID PRN Administration Pain Intake and Output 05/02/19 05/03/19 05/03/19 22:59 06:59 14:59 Intake Total 1400 1320 Output Total 1851 Balance 1400 -531 Intake: Oral 1400 1320 Output: Chest Tube Drainage 54 Chest Tube Left 54 Drainage 22 Left Lateral Chest 22 Urine 1775 Uretheral (Sanchez) 475 Other: Voiding Method Indwelling Catheter Indwelling Catheter Weight 87.6 kg 05/03/19 06:59 05/03/19 06:59 EKG Interpretations (text) No EKG is yet been performed, 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 Review chest x- ray. Continue aspirin 81 mg daily, Lipitor 80 mg daily, Coreg 6.25 twice a day, Plavix 75 mg daily, study at 10 mg daily, Lasix 20 mg daily, and Entresto. The plan is for the patient to have the chest tube removed today and possibly discharged home. We will make her a follow-up appointment in the office post discharge. DNP note has been reviewed, I agree with a documented findings and plan of care. Patient was seen and examined.
[2019-05-03] MEDS: HEPARIN SODIUM,PORCINE 5,000 UNIT/ML 1 ML VIAL SQ SCH ×2 (08:55→16:16)
[2019-05-03] MEDS: buPROPion SR 150 MG TABLET.ER PO SCH (08:56)
[2019-05-03] MEDS: SACUBITRIL/VALSARTAN 24 MG-26 MG TABLET PO SCH (08:56)
[2019-05-03] MEDS ORDERED: CLOPIDOGREL 75 MG TAB PO SCH (09:00)
[2019-05-03] MEDS ORDERED: MONTELUKAST 10 MG TAB PO SCH (09:00)
[2019-05-03] MEDS ORDERED: busPIRone HCl 10 MG TAB PO SCH (09:00)
[2019-05-03] MEDS ORDERED: FUROSEMIDE 20 MG TAB PO SCH (09:00)
[2019-05-03 09:01] VITALS: RESP 16; TEMP 96
[2019-05-03] MEDS: IPRATROPIUM-ALBUTEROL 3 ML NEB IH SCH ×3 (09:37→15:49)
[2019-05-03] MEDS ORDERED: INSULIN PUMP TARGET GLUCOSE 1 EACH MISC MISCELLANE PRN (11:11)
[2019-05-03] MEDS ORDERED: INSULIN PUMP ACTIVE INSULIN 1 EACH MISC MISCELLANE PRN (11:11)
[2019-05-03 11:13] VITALS: BP 139/66
--- NOTE | 2019-05-03 11:30 | P.PN ---
Subjective Progress Note Date: 05/03/19 Principal diagnosis: Chronic systolic congestive heart failure with caridomyopathy and malfunctioning biV ICD. Pmh of coronary artery disease, diabetes, hypertension. POD #1 Left thoracoscopic placement of epicardial LV lead with upgrade of existing biV ICD to functioning biV ICD Patient was sitting up in the chair eating breakfast. No respiratory distress noted on 2L NC. Chest tube to water seal. Patient complains of sharp pain in chest with inspiration, pain controlled with current medications. Objective - Vital Signs Vital signs: Vital Signs Temp 96 F L 05/03/19 08:00 Pulse 55 L 05/03/19 08:00 Resp 16 05/03/19 08:00 BP 119/57 05/03/19 08:00 Pulse Ox 96 05/03/19 08:00 Intake & Output 05/02/19 05/03/19 05/03/19 18:59 06:59 18:59 Intake Total 1351 2520 Output Total 525 1851 Balance 826 669 Weight 87.6 kg Intake: IV 1151 Oral 200 2520 Output: Chest Tube Drainage 54 Chest Tube Left 54 Drainage 22 Left Lateral Chest 22 Urine 475 1775 Uretheral (Sanchez) 475 Estimated Blood Loss 50 Other: Voiding Method Indwelling Catheter Indwelling Catheter - Constitutional General appearance: Present: cooperative, no acute distress - Respiratory Details: Respirations even and unlabored. Lung sounds diminished throughout. Left sided chest tube to water seal with 45ml sero/sang since surgery. No air leak or crepitus noted. SPO2 98% on 2L NC, 97% on RA. IS encouraged 10 x hour, patient able to achieve 900 mL. - Cardiovascular Details: Regular rate and rhythm. S1 S2, no murmurs noted. 100% paced on hospital monitor. No peripheral edema, + 2 peripheral pulses, skin warm to touch. Capillary refill < 2 seconds. - Gastrointestinal Gastrointestinal Comment(s): Abdomen soft, non-tender, non-distended. + Bowel sounds x 4 quadrants. Tolerating diet, no nausea. - Integumentary Integumentary: Present: normal - Neurologic Neurologic: Present: CNII-XII intact - Psychiatric Psychiatric: Present: A&O x's 3, appropriate affect, intact judgment & insight - Allied health notes Allied health notes reviewed: nursing - Labs CBC & Chem 7: 05/03/19 06:59 05/03/19 06:59 Labs: Abnormal Lab Results - Last 24 Hours (Table) 05/02/19 05/02/19 05/02/19 Range/Units 10:26 14:10 16:32 WBC (3.8-10.6) k/uL Neutrophils # (1.3-7.7) k/uL Lymphocytes # (1.0-4.8) k/uL Sodium (137-145) mmol/L BUN (7-17) mg/dL Glucose (74-99) mg/dL POC Glucose (mg/dL) 133 H 194 H 183 H (75-99) mg/dL 05/02/19 05/03/19 05/03/19 Range/Units 20:33 01:57 06:40 WBC (3.8-10.6) k/uL Neutrophils # (1.3-7.7) k/uL Lymphocytes # (1.0-4.8) k/uL Sodium (137-145) mmol/L BUN (7-17) mg/dL Glucose (74-99) mg/dL POC Glucose (mg/dL) 279 H 214 H 187 H (75-99) mg/dL 05/03/19 05/03/19 Range/Units 06:59 06:59 WBC 15.6 H (3.8-10.6) k/uL Neutrophils # 14.3 H (1.3-7.7) k/uL Lymphocytes # 0.6 L (1.0-4.8) k/uL Sodium 135 L (137-145) mmol/L BUN 20 H (7-17) mg/dL Glucose 192 H (74-99) mg/dL POC Glucose (mg/dL) (75-99) mg/dL - Imaging and Cardiology Chest x-ray: report reviewed, image reviewed CT scan - chest: report reviewed, image reviewed Assessment and Plan Assessment: 1. Chronic systolic congestive heart failure with caridomyopathy and malfunctioning biV ICD, s/p left thoracoscopic placement of epicardial LV lead with upgrade of existing biV ICD to functioning biV ICD 2. History of coronary artery disease 3. Insulin dependent diabetes 4. Hypertension Plan: 1. Chest tube removed without incident 2. Repeat CXR in 2 hours, if stable will discharge to home. 3. Wean O2 as tolerated 4. Encourage incentive spirometer 10 x hour 5. Discharge instructions placed on discharge plan 6. More recommendations to follow Time with Patient: Greater than 30
--- NOTE | 2019-05-03 11:46 | XR ---
EXAMINATION TYPE: XR chest 2V DATE OF EXAM: 05/03/2019 COMPARISON: Chest x-ray earlier today. HISTORY: Post left-sided chest tube removal. TECHNIQUE: Frontal and lateral views of the chest are obtained. FINDINGS: No left-sided pneumothorax after chest tube removal. Elevated left hemidiaphragm redemonst rated. Cardiomegaly with multiple lead pacemaker/ICD again seen. Overlying sternal wires and mediasti nal clips. Chronic parenchymal changes bilaterally with patchy left basilar atelectasis and/or infilt rate. Cholecystectomy clips are noted. Osseous structures are intact. IMPRESSION: No pneumothorax after left-sided chest tube removal. Other findings stable.
[2019-05-03 11:55] LABS: Glucose,Whole Blood 274 mg/dL (75-99)
--- NOTE | 2019-05-03 12:24 | CDI ---
Documentation Clarification Form Date: 05/03/2019 11:54:25 AM From: Fidelia Meredith RN CCDS Admit Date: 05/02/2019 9:16:00 AM Patient Name: Roshni Rodriguez Visit Number: [id number] Discharge Date: ATTENTION: The Clinical Documentation Specialists (CDI) and [facility] Coding Staff appreciate your assistance in clarifying documentation. Please respond to the clarification below the line at the bottom and electronically sign. The CDI & [facility] Coding staff will review the response and follow-up if needed. Please note: Queries are made part of the Legal Health Record. If you have any questions, please contact the author of this message via ITS. Dr. Lenin Hurd Chronic congestive heart failure and cardiomyopathy. Is documented in your Procedure note 05/02/2019 History/Risk Factors: 68-year-old female presents to [facility] for an elective replacement of the ICD and replacement of LV lead. Clinical Indicators: VS/Pulse OX: sitting 134/61 63 96.9 96% ra Echocardiogram Results 01/11/2018 left ventricle is severely dilated. Borderline concentric left ventricular hypertrophy. Left ventricular systolic function is severely impaired with, an EF between 25 -30%. La is mildly dilated 29-33ml/m2 Treatment: Coreg 6.25mg po bid ; Lasix 20mg po daily; Sacubitril/Valsartan 24mg/26mg po bid In your professional opinion, can you please clarify the acuity and type of CHF if known? * Chronic Systolic Heart Failure * Unable to Determine * Other, please specify (Last Revision: October 2017) MTDD
--- NOTE | 2019-05-03 13:25 | P.DS ---
Providers Date of admission: 05/02/19 09:16 Expected date of discharge: 05/03/19 Attending physician: Lenin Hurd Consults: 05/02/19 13:01 Consult Physician Routine Consulting Provider: Renata Burgess Consult Reason/Comments: Medical management Do you want consulting provider notified?: Yes Consult Physician Routine Consulting Provider: Fab Villanueva Consult Reason/Comments: Cardiology management Do you want consulting provider notified?: Yes Primary care physician: Renata Burgess Hospital Course: FINAL DIAGNOSIS: 1. Chronic systolic congestive heart failure with cardiomyopathy and malfunctioning biventricular ICD 2. History of coronary artery disease with previous stenting and coronary artery bypass surgery 3. Insulin-dependent diabetes 4. Hypertension 5. Hyperlipidemia PRINCIPAL PROCEDURE: 1. Left thoracoscopic placement of epicardial LV lead with upgrade of existing biventricular ICD to functioning biventricular ICD HISTORY OF PRESENT ILLNESS: This is a 68-year-old active female patient who follows on an outpatient basis with Dr. Burgess. She's had an ICD in place for quite some time which was upgraded to a dual-chamber ICD recently. She developed malfunctioning of the dual-chamber ICD in had exploration of her pacemaker in March 2019. 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 The leads were uncoiled and the RV lead had retracted somewhat and this had been re-advanced and gotten to work properly. However, the LV thresholds were quite high and the patient underwent unsuccessful attempt at revision of the LV lead through a transvenous approach. The patient was then referred to Dr. Hurd from cardiothoracic surgery. She was recommended to undergo thoracoscopic placement of an epicardial LV lead with upgrade of her biventricular ICD. The usual perioperative course was discussed in detail with the patient and her family, all risks and benefits were expla ined, all questions were answered, and consent was obtained to proceed with surgery. The patient was scheduled for surgery at the earliest possible date. HOSPITAL COURSE: The patient was brought to the hospital on 05/02/2019, taken to the preoperative area, prepared in the usual fashion, and subsequently taken to the operating room where Dr. Hurd performed a left thoracoscopic placement of epicardial LV lead with upgrade of existing biventricular ICD to functioning biventricular ICD. Upon completion of surgery the patient was extubated and taken to the recovery room for further monitoring, and eventually admitted to [address] [place] [id number] cardiac stepdown unit for further recovery. On postoperative day #1 she was ambulatory, and her pain was controlled on current medication regimen. She had a left thoracoscopic chest tube in place with minimal drainage and without any air leak, she exhibited complete expansion of her lungs, and the chest tube was discontinued without incident on postoperative day #1. Her oxygen was titrated down, she was tolerating oral diet, her pain was controlled, and she was ready to be discharged to home on postoperative day #1. She received written and verbal instruction regarding her medications, activity restrictions, signs and symptoms requiring physician notification, and follow-up appointments. COMPLICATIONS: The patient experienced no postoperative complications. Patient Condition at Discharge: Stable Plan - Discharge Summary Discharge Rx Participant: No New Discharge Prescriptions: New Acetaminophen Tab [Tylenol] 1,000 mg PO Q6HR PRN tab PRN Reason: Fever and/ or Mild Pain Continue Budesonide-Formot 160-4.5 Mcg [Symbicort 160-4.5 Mcg Inhaler] 2 puff INHALATION BID PRN PRN Reason: Shortness Of Breath metFORMIN HCL [Glucophage] 500 mg PO BID fluvoxaMINE MALEATE [Luvox] 300 mg PO HS Furosemide [Lasix] 20 mg PO DAILY Montelukast [Singulair] 10 mg PO DAILY Ezetimibe [Zetia] 10 mg PO HS Albuterol Inhaler [Ventolin Hfa Inhaler] 2 puff INHALATION Q4-6H PRN PRN Reason: sob buPROPion SR [Wellbutrin SR] 150 mg PO BID busPIRone HCL 30 mg PO QAM Ergocalciferol [Vitamin D2 (DRISDOL)] 50,000 unit PO PRUITT Baclofen [Lioresal] 20 mg PO TID PRN PRN Reason: Pain Clopidogrel [Plavix] 75 mg PO DAILY #30 tab Nitroglycerin Sl Tabs [Nitrostat] 0.4 mg SUBLINGUAL Q5M PRN #25 tab PRN Reason: Chest Pain Sacubitril/Valsartan [Entresto 24 mg-26 mg Tablet] 1 tab PO BID busPIRone HCL 15 mg PO HS Insulin Aspart (For Pump) [NovoLOG (For Pump)] 0.01 unit SQ-PUMP CONTINUOUS Rosuvastatin Calcium [Crestor] 40 mg PO HS traMADol HCl [Ultram] 100 - 200 mg PO TID PRN PRN Reason: Pain Carvedilol [Coreg] 6.25 mg PO BID Levothyroxine Sodium [Synthroid] 150 mcg PO DAILY Aspirin [Adult Low Dose Aspirin EC] 2 tab PO BID Discontinued Aspirin [Adult Low Dose Aspirin EC] 81 mg PO HS Discharge Medication List Budesonide-Formot 160-4.5 Mcg [Symbicort 160-4.5 Mcg Inhaler] 2 puff INHALATION BID PRN 12/27/15 [History] Ezetimibe [Zetia] 10 mg PO HS 12/27/15 [History] Furosemide [Lasix] 20 mg PO DAILY 12/27/15 [History] Montelukast [Singulair] 10 mg PO DAILY 12/27/15 [History] fluvoxaMINE MALEATE [Luvox] 300 mg PO HS 12/27/15 [History] metFORMIN HCL [Glucophage] 500 mg PO BID 12/27/15 [History] Albuterol Inhaler [Ventolin Hfa Inhaler] 2 puff INHALATION Q4-6H PRN 03/29/17 [History] Ergocalciferol [Vitamin D2 (DRISDOL)] 50,000 unit PO PRUITT 03/29/17 [History] buPROPion SR [Wellbutrin SR] 150 mg PO BID 03/29/17 [History] busPIRone HCL 30 mg PO QAM 03/29/17 [History] Baclofen [Lioresal] 20 mg PO TID PRN 01/10/18 [History] Clopidogrel [Plavix] 75 mg PO DAILY #30 tab 01/13/18 [Rx] Nitroglycerin Sl Tabs [Nitrostat] 0.4 mg SUBLINGUAL Q5M PRN #25 tab 01/13/18 [Rx] Sacubitril/Valsartan [Entresto 24 mg-26 mg Tablet] 1 tab PO BID 04/11/18 [History] Insulin Aspart (For Pump) [NovoLOG (For Pump)] 0.01 unit SQ-PUMP CONTINUOUS 05/17/18 [History] busPIRone HCL 15 mg PO HS 05/17/18 [History] Rosuvastatin Calcium [Crestor] 40 mg PO HS 06/06/18 [History] traMADol HCl [Ultram] 100 - 200 mg PO TID PRN 07/18/18 [History] Carvedilol [Coreg] 6.25 mg PO BID 04/04/19 [History] Levothyroxine Sodium [Synthroid] 150 mcg PO DAILY 04/28/19 [History] Aspirin [Adult Low Dose Aspirin EC] 2 tab PO BID 05/02/19 [History] Acetaminophen Tab [Tylenol] 1,000 mg PO Q6HR PRN tab 05/03/19 [Rx] Follow up Appointment(s)/Referral(s): Renata Burgess MD [Primary Care Provider] - 1 Week Fab Villanueva MD [STAFF PHYSICIAN] - 1 Week Lenin Hurd MD [STAFF PHYSICIAN] - 05/18/19 1:15 pm Activity/Diet/Wound Care/Special Instructions: DISCHARGE INSTRUCTIONS: 1. No driving for 2 weeks, or until physician gives their ok. 2. No lifting, pushing, or pulling more than 10 pounds for 2 weeks. The physician will advise of any restriction changes. 3. Continue pain control per as needed orders. Alternate acetaminophen (Tylenol) and ibuprofen (Motrin/Advil) for pain. 4. Continue with incentive spirometry and splinting until otherwise directed by the physician. 5. Leave chest tube dressing for 48 hours. After that, remove all dressings and shower daily. 6. Routine incision care. No powders, lotions, ointments on incisions. 7. Please call surgeon/[employer] for temp greater than 101 F or purulent drainage from incisions. ANTHONY Sinha ; ANTHONY Bansal for any questions or concerns Discharge Disposition: HOME SELF-CARE
--- NOTE | 2019-05-03 15:24 | P.CONS ---
History of Present Illness - Reason for Consult Consult date: 05/02/19 Medical management - Chief Complaint LV epicardial lead placement with revision of AICD. - History of Present Illness This is a 68 rolled female one of Dr. Burgess with a previous medical history significant for CAD post CABG back in 2012 with MARTIN to LAD saphenous venous graft to the first marginal branch and to the PLV of the left circumflex, prior history of the PCI multiple stents, history of severe ischemic cardiopathy with chronic systolic heart failure, hypertension and hypertensive cardiovascular disease, hyperlipidemia, diabetes mellitus type 2, patient has had a single ICD placement many years ago and developed to have failure of the LAD lead due to high threshold and the revision was unsuccessful via the transvenous route subsequently she was referred to thoracic surgery for epicardial lead placement and revision of the ICD to a functioning biventricular ICD. Patient underwent the surgery yesterday by Dr. Hurd and we were asked to see the patient for diabetes management. Patient is currently on insulin pump and the Current insulin pump during the surgical procedure and she is to be maintained on the insulin pump postoperatively. Review of Systems Constitutional: Denies anorexia, Denies chronic headaches, Denies lethargy, Denies malaise, Denies weakness, Denies weight gain Eyes: denies blurred vision, denies bulging eye, denies decreased vision, denies diplopia Ears: deny: decreased hearing Ears, nose, mouth and throat: Denies dysphagia, Denies neck lump, Denies sore throat, Denies vertigo Cardiovascular: Denies chest pain, Denies decreased exercise tolerance, Denies leg edema, Denies rapid heart beat, Denies shortness of breath, Denies syncope Respiratory: Reports sleep apnea, Reports snoring, Denies congestion, Denies cough, Denies cough with sputum, Denies wheezing Gastrointestinal: Denies abdominal pain, Denies bloating, Denies BRBPR, Denies heartburn, Denies melena, Denies nausea, Denies vomiting Genitourinary: Denies dysuria, Denies nocturia Musculoskeletal: Denies myalgias Musculoskeletal: absent: ankle pain, ankle stiffness, ankle swelling, elbow pain, elbow stiffness, elbow swelling, foot pain, foot stiffness, foot swelling, hand pain, hand stiffness, hand swelling, hip pain, hip stiffness, hip swelling, knee pain, knee stiffness, knee swelling, shoulder pain, shoulder stiffness, shoulder swelling, wrist pain, wrist stiffness, wrist swelling Integumentary: Denies pruritus, Denies rash Neurological: Denies numbness, Denies weakness Psychiatric: Denies anxiety, Denies depression Endocrine: Denies fatigue, Denies weight change Past Medical History Past Medical History: Asthma, Blood Disorder, Coronary Artery Disease (CAD), Chest Pain / Angina, Heart Failure, Diabetes Mellitus, Eye Disorder, GERD/Reflux, Hyperlipidemia, Hypertension, Myocardial Infarction (NH), Musculoskeletal Disorder, Osteoarthritis (OA), Renal Disease, Skin Disorder, Supraventricular Tachycardia (SVT), Thyroid Disorder Additional Past Medical History / Comment(s): USES INSULIN PUMP. VITILIGO-FACE. ANEMIA. DIZZINESS OFF & ON, HERNIATED DISCS L1,L2,L3,L4-L5, PINCHED SCIATIC NERVE. OSTEOPENIA. HIATAL HERNIA. ELEV LFS. OCC NT BUE. MILD Neuropathy. DIABETIC RETINOPATHY. TINNITUS. FX LT ANKLE, IN TEMPORARY BOOT/CAST. Last Myocardial Infarction Date:: June 2009, 01/09/18 History of Any Multi-Drug Resistant Organisms: None Reported Past Surgical History: AICD, Cardiac Ablation, Cholecystectomy, Coronary Bypass/CABG, Heart Catheterization, Heart Catheterization With Stent, Hysterectomy, Pacemaker, Tonsillectomy Additional Past Surgical History / Comment(s): 04/06/19 venogram and device interogation, TRIPLE BYPASS 2012. EXC. CATARACTS WITH LENS IMPLANTS. DEFIBRILLATOR ST.ESME 2010; DUAL AICD 04/14/18. 3 cardiac stents, LAST 01/2018. CARDIAC Ablation 1994. LIVER BIOPSY (FATTY LIVER). Past Anesthesia/Blood Transfusion Reactions: Postoperative Nausea & Vomiting (PONV) Additional Past Anesthesia/Blood Transfusion Reaction / Comm: DAUGHTER'S HAVE PONV. (HX nausea from iron infusions) Date of Last Stent Placement:: 2008 x2, 01/2018 X1 Type of Cardiac Device: Permanent Pacemaker, AICD Device Placement Date:: 2017 Smoking Status: Never smoker - Past Family History Mother Family Medical History: Congestive Heart Failure (CHF) (Mother at age of 93 from diabetes and congestive heart failure and stents), Coronary Artery Disease (CAD), Diabetes Mellitus, Deep Vein Thrombosis (DVT) Additional Family Medical History / Comment(s): HEART DISEASE, Father Family Medical History: Congestive Heart Failure (CHF) (Father at age of 78 from congestive heart failure and he also was diabetic.), Diabetes Mellitus Additional Family Medical History / Comment(s): HEART DISEASE Sister(s) Family Medical History: Cancer Additional Family Medical History / Comment(s): 2 1/2 sisters with breast cancer, 1/2 sister-thyroid cancer, 1/2 SISTER - PANCREATIC CANCER. Brother(s) Family Medical History: Coronary Artery Disease (CAD) (Patient had 5 half- brothers to is alive one is all right the other one of the gout and 3 from CAD before the age of 60 one in his late 20s one at 57 and 1 at 58) Daughter(s) Family Medical History: Supraventricular Tachycardia (SVT) (Patient has 4 daughters two with SVT post-ablation and one scheduled for ablation and the other 2 are okay.) Son(s) Family Medical History: No Reported History (Patient has one son the only pr oblem that he has is smoking.) Medications and Allergies Home Medications Medication Instructions Recorded Confirmed Type Budesonide-Formot 160-4.5 Mcg 2 puff INHALATION BID PRN 12/27/15 05/02/19 History [Symbicort 160-4.5 Mcg Inhaler] Ezetimibe [Zetia] 10 mg PO HS 12/27/15 05/02/19 History Furosemide [Lasix] 20 mg PO DAILY 12/27/15 05/02/19 History Montelukast [Singulair] 10 mg PO DAILY 12/27/15 05/02/19 History fluvoxaMINE MALEATE [Luvox] 300 mg PO HS 12/27/15 05/02/19 History metFORMIN HCL [Glucophage] 500 mg PO BID 12/27/15 05/02/19 History Albuterol Inhaler [Ventolin Hfa 2 puff INHALATION Q4-6H PRN 03/29/17 05/02/19 History Inhaler] Ergocalciferol [Vitamin D2 50,000 unit PO PRUITT 03/29/17 05/02/19 History (DRISDOL)] buPROPion SR [Wellbutrin SR] 150 mg PO BID 03/29/17 05/02/19 History busPIRone HCL 30 mg PO QAM 03/29/17 05/02/19 History Baclofen [Lioresal] 20 mg PO TID PRN 01/10/18 05/02/19 History Clopidogrel [Plavix] 75 mg PO DAILY #30 tab 01/13/18 04/28/19 Rx Nitroglycerin Sl Tabs [Nitrostat] 0.4 mg SUBLINGUAL Q5M PRN #25 tab 01/13/18 04/28/19 Rx Sacubitril/Valsartan [Entresto 24 1 tab PO BID 04/11/18 05/02/19 History mg-26 mg Tablet] Insulin Aspart (For Pump) [NovoLOG 0.01 unit SQ-PUMP CONTINUOUS 05/17/18 05/02/19 History (For Pump)] busPIRone HCL 15 mg PO HS 05/17/18 05/02/19 History Rosuvastatin Calcium [Crestor] 40 mg PO HS 06/06/18 05/02/19 History traMADol HCl [Ultram] 100 - 200 mg PO TID PRN 07/18/18 05/02/19 History Carvedilol [Coreg] 6.25 mg PO BID 04/04/19 05/02/19 History Levothyroxine Sodium [Synthroid] 150 mcg PO DAILY 04/28/19 05/02/19 History Acetaminophen Tab [Tylenol] 1,000 mg PO Q6HR PRN tab 05/03/19 Rx Aspirin [Adult Low Dose Aspirin EC] 81 mg PO HS #30 tablet. 05/03/19 Rx Allergies Allergy/AdvReac Type Severity Reaction Status Date / Time metronidazole [From Flagyl] Allergy Rash/Hives Verified 04/28/19 12:04 Physical Exam Vitals: Vital Signs Temp Pulse Resp BP BP Pulse Ox 05/02/19 10:13 96.9 F L 63 18 134/61 123/57 96 Intake and Output 05/01/19 05/02/19 05/02/19 22:59 06:59 14:59 Intake Total 1151 Output Total 300 Balance 851 Intake: IV 1151 Output: Urine 250 Estimated Blood Loss 50 - Constitutional General appearance: average body habitus, no acute distress - EENT Eyes: anicteric sclerae, EOMI, PERRLA, no ptosis, no scleral icterus, normal appearance ENT: hearing grossly normal, NA/AT, normal oropharynx, no thrush Ears: bilateral: normal - Neck Neck: no lymphadenopathy, normal ROM, no rigidity, no stridor, no thyromegaly Carotids: bilateral: upstroke normal Thyroid: bilateral: normal size - Respiratory Respiratory: bilateral: diminished, negative: dullness (Interval removal of the chest to on the left side.), rales, rhonchi, wheezing - Cardiovascular Rhythm: regular Heart sounds: normal: S1, S2 Abnormal Heart Sounds: systolic murmur, no rub, no S3 Gallop, no S4 Gallop - Gastrointestinal General gastrointestinal: normal bowel sounds, soft, no splenomegaly, no tenderness, no umbilical hernia, no ventral hernia - Integumentary Integumentary: normal, normal turgor - Neurologic Neurologic: CNII-XII intact - Musculoskeletal Musculoskeletal: gait normal, strength equal bilaterally - Psychiatric Psychiatric: A&O x's 3, appropriate affect, intact judgment & insight Results CBC & Chem 7: 05/03/19 06:59 05/03/19 06:59 Labs: Abnormal Lab Results - Last 24 Hours (Table) 05/02/19 Range/Units 10:26 POC Glucose (mg/dL) 133 H (75-99) mg/dL Assessment and Plan Assessment: Assessment and plan: 1. Post operative day #1 status post LV epicardial lead with revision of dual ICD to a functioning ICD. Patient did have a chest removed chest x-ray will be reviewed patient was instructed to use the incentive spirometer she was scheduled to be discharged home her on today and follow-up with her reporter as an outpatient next week for interrogation of ICD. 2. CAD post CABG with severe ischemic cardiomyopathy. Continue patient on Entresto 24/26 mg orally twice every day, Coreg 6.25 mg orally twice every day, Lasix 20 mg orally once every day 3. Hypertension and hypertensive cardiovascular disease. Continue on Coreg 6.25 mg orally twice every day, Entresto 24/26/g orally twice every day. 4. Hyperlipidemia. Continue Crestor 40 mg orally once every day as well as Zetia 10 mg orally once every day. 5. Diabetes mellitus type 2. Continue with insulin pump. 6. Hypothyroidism. Continues with Synthroid 150 g orally once every day. 7. History of asthma. Continue singulair 10 mg orally once every day as well as Symbicort 160/4.5 g 2 puffs inhalation twice every day, continue with DuoNeb 3 mL nebulization 4 times every day. 8. DVT prophylaxis. Continue heparin 5000 units subcutaneously every 8 hours. 9. GI prophylaxis. Continue PPI. 10. Thank you for the consult we will follow with you. 11. Medically stable to be discharged home.
[2019-05-03 16:00] VITALS: PULSE 60
[2019-05-03] MEDS: traMADol 50 MG TAB PO PRN (16:24)
[2019-05-03 16:53] LABS: Glucose,Whole Blood 196 mg/dL (75-99)
== END 2019-05-03 17:35 | disposition home or self-care (01) | DRG 265 ==
LOC: 2ORMAIN 09:16 → 3SCARD 15:57
PROVIDERS: ADMIT Thoracic Surgery (Cardiothoracic Vascular Surgery); ATTEND Thoracic Surgery (Cardiothoracic Vascular Surgery)
PROC: 0WJ Anatomical Regions, General, Inspection (ICD-10-PCS; 2019-05-02)
PROC: 02HL3KZ Insertion of Defibrillator Lead into Left Ventricle, Percutaneous Approach (ICD-10-PCS; principal; 2019-05-02 11:15)
DX: T82.110A Breakdown (mechanical) of cardiac electrode, initial encounter (principal); I50.22 Chronic systolic (congestive) heart failure; I11.0 Hypertensive heart disease with heart failure; Z45.02 Encounter for adjustment and management of automatic implantable cardiac defibrillator; E03.9 Hypothyroidism, unspecified; E11.319 Type 2 diabetes mellitus with unspecified diabetic retinopathy without macular edema; E11.51 Type 2 diabetes mellitus with diabetic peripheral angiopathy without gangrene; Z96.41 Presence of insulin pump (external) (internal); Z79.4 Long term (current) use of insulin; E11.40 Type 2 diabetes mellitus with diabetic neuropathy, unspecified; E78.5 Hyperlipidemia, unspecified; I25.10 Atherosclerotic heart disease of native coronary artery without angina pectoris; I25.2 Old myocardial infarction; I25.5 Ischemic cardiomyopathy; J45.909 Unspecified asthma, uncomplicated; K21.9 Gastro-esophageal reflux disease without esophagitis; K76.0 Fatty (change of) liver, not elsewhere classified; L80 Vitiligo; M85.80 Other specified disorders of bone density and structure, unspecified site; M51.26 Other intervertebral disc displacement, lumbar region; Z79.02 Long term (current) use of antithrombotics/antiplatelets; Z79.51 Long term (current) use of inhaled steroids; Z79.82 Long term (current) use of aspirin; Z79.890 Hormone replacement therapy; Z79.899 Other long term (current) drug therapy; Z98.42 Cataract extraction status, left eye; Z98.41 Cataract extraction status, right eye; Z96.1 Presence of intraocular lens; Z83.2 Family history of diseases of the blood and blood-forming organs and certain disorders involving the immune mechanism; Z80.0 Family history of malignant neoplasm of digestive organs; Z80.3 Family history of malignant neoplasm of breast; Z80.8 Family history of malignant neoplasm of other organs or systems; Z82.49 Family history of ischemic heart disease and other diseases of the circulatory system; Z83.3 Family history of diabetes mellitus; Z90.710 Acquired absence of both cervix and uterus; Z95.1 Presence of aortocoronary bypass graft; Z95.5 Presence of coronary angioplasty implant and graft; Z90.49 Acquired absence of other specified parts of digestive tract; M19.90 Unspecified osteoarthritis, unspecified site
CPT/HCPCS: 71045; 71046; 80048; 85025; 86850; 86870; 86880; 86900; 86901; 94640; 94660

== ENCOUNTER → 2019-07-21 | Outpatient (CLI) | payer MEDICARE ==
--- NOTE | 2019-07-21 14:35 | CT ---
EXAMINATION TYPE: CT chest wo con DATE OF EXAM: 07/21/2019 COMPARISON: Chest x-ray 05/03/2019 HISTORY: Asthma, Persistent Cough CT DLP: 872.3 mGycm, Automated exposure control for dose reduction was used. CONTRAST: None TECHNIQUE: Axial images were obtained at 1 mm thick sections at 10 mm intervals. This will limit po rtions of the examination which may not be visualized within the [id number]. Images were obtained in the prone and supine views. FINDINGS: Portion of the thyroid visualized is normal. Mild bronchiectasis is present. There are arsh e streak opacities in the lung bases which appear persistent on prone and supine views. May be relate d to scarring on the lung bases. No enlarged mediastinal or hilar adenopathy is evident. The ascending aorta diameter at the level o f the main pulmonary artery is 3.8 cm. The main pulmonary artery diameter at the bifurcation is 3.[address] sections are obtained through the upper abdomen. There is a 2.7 cm cyst measuring 7 Hounsf [place]eld units on the mid posterior left kidney. IMPRESSIONS: 1. Chronic appearing changes in the posterior right lung base with some mild bronchiectasis. Correlat e for scarring. Short-term monitoring is recommended. Other etiologies are not excluded.
== END | disposition home or self-care (01) ==
LOC: RADCTMAIN 11:20
PROVIDERS: ATTEND Family Medicine
DX: J47.9 Bronchiectasis, uncomplicated (principal); J45.909 Unspecified asthma, uncomplicated
CPT/HCPCS: 71250

== ENCOUNTER → 2020-05-29 | Outpatient (CLI) | payer MEDICARE ==
--- NOTE | 2020-05-29 12:09 | CT ---
EXAMINATION TYPE: CT chest wo con DATE OF EXAM: 05/29/2020 COMPARISON: 07/21/2019 HISTORY: Bronchiectasis with acute exacerbation CT DLP: 413.00 mGycm, Automated exposure control for dose reduction was used. CONTRAST: None TECHNIQUE: Axial images were obtained at 1 mm thick sections at 10 mm intervals. This will limit po rtions of the examination which may not be visualized within the [id number]. Images were obtained in the prone and supine views. FINDINGS: Portion of the thyroid visualized is normal. There are streak opacities within the left lo wer lobe which are present previously likely represent some scarring. Dilated bronchi are not evident. No suspicious focal infiltrate is evident. No masses are identified. No enlarged mediastinal or hilar adenopathy is evident. The ascending aorta diameter at the level o f the main pulmonary artery is 3.6 cm. The main pulmonary artery diameter at the bifurcation is 3.1 cm. Coronary artery calcification is present. Limited CT sections are obtained through the upper abdomen. Abdomen is essentially unremarkable. IMPRESSIONS: 1. Chronic appearing left basilar streak opacities likely related to scarring
[2020-05-29 13:32] LABS: T4, Free (Free Thyroxine) 2.39 ng/dL (0.78-2.19)
[2020-05-29 19:11] LABS: Immunoglobulin E 64.8 IU/mL (0.00-114.00)
== END | disposition home or self-care (01) ==
LOC: RADCTMAIN 10:42
PROVIDERS: ATTEND Family Medicine
DX: J47.1 Bronchiectasis with (acute) exacerbation (principal); R91.8 Other nonspecific abnormal finding of lung field; E03.9 Hypothyroidism, unspecified; J45.909 Unspecified asthma, uncomplicated
CPT/HCPCS: 36415; 71250; 82785; 84439; 84443; 84480

== ENCOUNTER → 2021-02-12 | Outpatient (CLI) | payer MEDICARE ==
--- NOTE | 2021-02-12 14:05 | US ---
EXAMINATION TYPE: US carotid duplex BILAT DATE OF EXAM: 02/12/2021 COMPARISON: NONE CLINICAL HISTORY: I73.9 Peripheral vascular disease. EXAM MEASUREMENTS: RIGHT: Peak Systolic Velocity (PSV) cm/sec ----- Right CCA: 61.6 ----- Right ICA: 94.3 ----- Right ECA: 198.4 ICA/CCA ratio: 1.5 RIGHT: End Diastole cm/sec ----- Right CCA: 12.7 ----- Right ICA: 23.3 ----- Right ECA: 20.9 LEFT: Peak Systolic Velocity (PSV) cm/sec ----- Left CCA: 59.9 ----- Left ICA: 105.3 ----- Left ECA: 130.3 ICA/CCA ratio: 1.8 LEFT: End Diastole cm/sec ----- Left CCA: 14.5 ----- Left ICA: 22.7 ----- Left ECA: 9.1 VERTEBRALS (direction of flow): Right Vertebral: Antegrade Left Vertebral: Antegrade Rhythm: Normal mild to moderate plaque bilateral bifurcations. Increased velocities right ECA IMPRESSION: 1. Atheromatous plaquing. Significant flow-limiting stenosis within the internal carotid arteries is not evident. 2. Some flow-limiting narrowing of the external carotid arteries is present bilaterally. NASCET criteria was used in interpretation of this exam? Criteria for Assigning % of Stenosis / Diameter reduction (Estimation based on the indirect measurements of the internal carotid artery velocities (ICA PSV). 1. Normal (no stenosis)=ICA PSV < 125 cm/s: ratio < 2.0: ICA EDV<40 cm/s. 2. Less than 50% stenosis=ICA PSV < 125 cm/s: ratio < 2.0: ICA EDV<40 cm/s. 3. 50 to 69% stenosis=ICA PSV of 125 to 230 cm/s: ration 2.0 ? 4.0: ICA EDV 40-100 cm/s. 4. Greater than 70% stenosis to near occlusion= ICA PSV > 230 cm/s: ratio > 4.0: ICA EDV > 100 cm/s. 5. Near occlusion= ICA PSV velocities may be low or undetectable: variable ratio and ICA EDV. 6. Total occlusion=unable to detect flow.
--- NOTE | 2021-02-19 12:12 | P.ARTDOP ---
Arterial Doppler LOWER EXTREMITY ARTERIAL DOPPLER: DATE OF SERVICE: 02/12/2021 Reason for study: Right leg pain with walking. Doppler waveforms: Multiphasic throughout. Pulse volume recording: []. Pressure gradients: None. Ankle-brachial indices: Cannot occlude. Toe brachial indices: 0.7 on the right, 0.7 on the left Impression: Normal flow patterns. Inability to occlude ankle suggests calcific wall disease which is [id number]..
== END | disposition home or self-care (01) ==
LOC: RADUSWWP 12:05
PROVIDERS: ATTEND Family Medicine
DX: I73.9 Peripheral vascular disease, unspecified (principal)
CPT/HCPCS: 93880; 93922

== ENCOUNTER → 2021-03-07 | Outpatient (CLI) | payer MEDICARE ==
--- NOTE | 2021-03-10 09:49 | MM ---
Reason for exam: screening (asymptomatic). Last mammogram was performed 1 year and 10 months ago. History: Patient is postmenopausal. Family history of breast cancer in sister at age 50, breast cancer in 2 other sisters, breast cancer in maternal cousin, and breast cancer in paternal cousin at age 45. Took hormonal contraceptives for 6 months beginning at age 22. Physical Findings: A clinical breast exam by your physician is recommended on an annual basis and results should be correlated with mammographic findings. MG 3D Screening Mammo W/Cad Bilateral CC and MLO view(s) were taken. Prior study comparison: April 25, 2019, bilateral MG 3d diag mammo w/cad YESSI. March 16, 2017, bilateral MG 3d screening mammo w/cad. There are scattered fibroglandular densities. There are benign appearing vascular calcifications bilaterally. Left axillary pacemaker redemonstrated. ASSESSMENT: Benign, BI-RAD 2 RECOMMENDATION: Routine screening mammogram of both breasts in 1 year.
== END | disposition home or self-care (01) ==
LOC: RADMAMWWP 07:27
PROVIDERS: ATTEND Family Medicine
DX: Z12.31 Encounter for screening mammogram for malignant neoplasm of breast (principal); Z78.0 Asymptomatic menopausal state; Z79.3 Long term (current) use of hormonal contraceptives; Z80.3 Family history of malignant neoplasm of breast
CPT/HCPCS: 77063; 77067

== ENCOUNTER → 2021-03-28 | Outpatient (CLI) | payer MEDICARE ==
[2021-03-28 12:00] LABS: Appearance,Urine Clear (Clear); Bilirubin,Urine Negative (Negative); Blood,Urine Negative (Negative); Color,Urine Light Yellow; Glucose,Urine (UA) Negative (Negative); Ketones,Urine Negative (Negative); Leukocyte Esterase,Urine Moderate (Negative); Nitrite,Urine Negative (Negative); Protein,Urine Negative (Negative); RBC,Urine <1 /hpf (0-5); Specific Gravity,Urine 1.011 (1.001-1.035); Squamous Epithelial Cell,Urine <1 /hpf (0-4); Urobilinogen,Urine <2.0 mg/dL (<2.0); WBC,Urine 1 /hpf (0-5)
[2021-03-28 20:11] LABS: Basophils # (A) 0.03 X 10*3/uL (0.00-0.10); Basophils % (A) 0.5 %; Eosinophils # (A) 0.49 X 10*3/uL (0.04-0.35); Eosinophils % (A) 8.8 %; HCT 40.9 % (37.2-46.3); HGB 12.7 g/dL (12.0-15.0); Lymphocytes # (A) 1.21 X 10*3/uL (0.90-5.00); Lymphocytes % (A) 21.7 %; MCH 30.2 pg (27.0-32.0); MCHC 31.1 g/dL (32.0-37.0); MCV 97.1 fL (80.0-97.0); Mean Platelet Volume 12.4 fL (9.5-12.2); Monocytes # (A) 0.39 X 10*3/uL (0.20-1.00); Neutrophils # (A) 3.43 X 10*3/uL (1.80-7.70); Neutrophils % (A) 61.6 %; Platelet Count 188 X 10*3/uL (140-440); RBC 4.21 X 10*6/uL (4.10-5.20); RDW 13.3 % (11.5-14.5); WBC 5.57 X 10*3/uL (4.50-10.00)
[2021-03-28 21:55] LABS: Hemoglobin A1C 8.4 % (4.0-6.0)
[2021-03-29 05:58] LABS: Urine Creatinine 70.5 mg/dL
[2021-03-29 07:20] LABS: African American GFR (CKD) 59.7 (60.0-200.0); Albumin/Globulin Ratio 1.74 (1.60-3.17); Anion Gap 9.5 mmol/L (4.00-12.00); BUN/Creat Ratio 16.36 Ratio (12.00-20.00); Calcium 9.7 mg/dL (8.7-10.3); Carbon Dioxide 23.5 mmol/L (21.6-31.8); Chol/HDL Ratio 2.17; Globulin 2.3 g/dL (1.6-3.3); Non-African American GFR(CKD) 51.5 (60.0-200.0); Potassium 4.7 mmol/L (3.5-5.5); Total Bilirubin 0.4 mg/dL (0.2-1.2); Total Protein 6.3 g/dL (6.2-8.2)
== END | disposition home or self-care (01) ==
LOC: LABWHC1 10:41
PROVIDERS: ATTEND Family Medicine
DX: Z00.00 Encounter for general adult medical examination without abnormal findings (principal); E11.65 Type 2 diabetes mellitus with hyperglycemia; E11.22 Type 2 diabetes mellitus with diabetic chronic kidney disease; N18.32 Chronic kidney disease, stage 3b; E03.9 Hypothyroidism, unspecified
CPT/HCPCS: 36415; 80053; 80061; 81001; 82043; 82306; 82550; 82570; 82607; 83036; 83880; 83970; 84439; 84443; 85025

== ENCOUNTER → 2021-06-18 | Outpatient (CLI) | payer MEDICARE ==
--- NOTE | 2021-06-19 06:45 | US ---
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 EXAM MEASUREMENTS: Right Kidney: 10.1 x 5.1 x 4.6 cm Left Kidney: 9.2 x 4.7 x 4.1 cm Right Kidney: No hydronephrosis or masses seen Left Kidney: Anechoic focus seen superior pole 3.0 x 3.0 x 3.0 cm Bladder: anechoic; wnl as seen Bilateral Jets seen: No There is no evidence for hydronephrosis at this point in time. No nephrolithiasis is seen. No solid masses are identified. The urinary bladder is anechoic. Bilateral ureteral jets are seen. IMPRESSION: Cyst upper pole left kidney.
== END | disposition home or self-care (01) ==
LOC: RADUSWWP 16:16
PROVIDERS: ATTEND Family Medicine
DX: N18.9 Chronic kidney disease, unspecified (principal); N28.1 Cyst of kidney, acquired
CPT/HCPCS: 76770

== ENCOUNTER → 2022-07-13 | Outpatient (CLI) | payer MEDICARE ==
--- NOTE | 2022-07-14 06:43 | MM ---
Reason for Exam: Screening (asymptomatic). Last mammogram was performed 1 year(s) and 5 month(s) ago. Patient History: Menarche at age 11. First Full-Term at age 25. Left ovary removed at age 44. Right ovary removed at age 44. Hysterectomy at age 44. Postmenopausal. Hormonal Contraceptives for 6 months from age 22 until age 22. Paternal cousin had breast cancer, age 45. Maternal cousin had breast cancer. Sister had breast cancer, age 50. Sister had breast cancer. Sister had breast cancer. Risk Values: Janet 5 year model risk: 7.6%. NCI Lifetime model risk: 21.7%. Prior Study Comparison: 03/16/2017 Bilateral Screening Mammogram, [facility]. 04/25/2019 Bilateral Diagnostic Mammogram, [facility]. 03/07/2021 Bilateral Screening Mammogram, [facility]. Tissue Density: There are scattered fibroglandular densities. Findings: Analyzed By CAD. Benign vascular calcification bilaterally is redemonstrated. Left axillary pacemaker device is again seen. There is no suspicious new group of microcalcifications or new suspicious mass in either breast. Overall Assessment: Benign, BI-RAD 2 Management: Screening Mammogram of both breasts in 1 year. A clinical breast exam by your physician is recommended on an annual basis and results should be correlated with mammographic findings. Electronically signed and approved by: Dima Stoll M.D.
== END | disposition home or self-care (01) ==
LOC: RADMAMWWP 10:49
PROVIDERS: ATTEND Family Medicine
DX: Z12.31 Encounter for screening mammogram for malignant neoplasm of breast (principal); Z78.0 Asymptomatic menopausal state; Z80.3 Family history of malignant neoplasm of breast
CPT/HCPCS: 77063; 77067

== ENCOUNTER → 2022-07-16 | Outpatient (CLI) | payer MEDICARE ==
[2022-07-16 14:20] LABS: HCT 37.7 % (37.2-46.3); MCH 29.5 pg (27.0-32.0); MCHC 31.8 g/dL (32.0-37.0); MCV 92.6 fL (80.0-97.0); Mean Platelet Volume 11.6 fL (9.5-12.2); NRBC Per 100 WBC 0 /100 WBCS (0.0-0.0); Platelet Count 207 X 10*3/uL (140-440); RBC 4.07 X 10*6/uL (4.10-5.20); RDW 15.1 % (11.5-14.5); WBC 6.31 X 10*3/uL (4.50-10.00)
[2022-07-16 17:39] LABS: African American GFR (CKD) 51.3 (60.0-200.0); Anion Gap 11.8 mmol/L (10.00-18.00); Blood Urea Nitrogen 15.5 mg/dL (9.0-27.0); Carbon Dioxide 25.1 mmol/L (20.0-27.5); Non-African American GFR(CKD) 44.3 (60.0-200.0); Potassium 4.5 mmol/L (3.5-5.5)
== END | disposition home or self-care (01) ==
LOC: LABPAT 09:07
PROVIDERS: ATTEND Internal Medicine Interventional Cardiology
DX: Z01.812 Encounter for preprocedural laboratory examination (principal); I25.10 Atherosclerotic heart disease of native coronary artery without angina pectoris
CPT/HCPCS: 80051; 82565; 84520; 85027

== ENCOUNTER 2022-07-21 09:22 | Day surgery (SDC) | payer MEDICARE ==
[2022-07-16 10:16] VITALS: BMI 34.2
[~2022-07-21 09:22] MED LIST changes: +ALPRAZolam 0.25 MG TAB PO PRN; +ALPRAZolam 0.5 MG TAB PO PRN; +ASPIRIN 325 MG TAB PO STA; +ATORVASTATIN 80 MG TAB PO STA; -DEXAMETHASONE SOD PHOSPHATE 10 MG/ML 1 ML VIAL IV ONE; +HEPARIN SODIUM,PORCINE 10,000 UNIT in SODIUM CHLORIDE 0.9% 1,000 ML IRRIGATION PRN; +HEPARIN SODIUM,PORCINE 2,500 UNIT in SODIUM CHLORIDE 0.9% 250 ML IRRIGATION PRN; -LACTATED RINGERS 1,000 ML IV SCH; -LIDOCAINE 1% 20 ML VIAL (10MG/ML) FOR IV START INTRADERMA PRN; +NITROGLYCERIN SL TABS 0.4 MG TAB SUBLINGUAL PRN; -ONDANSETRON 4 MG/2 ML VIAL IVP ONE; -fentaNYL (PF) 50 MCG/ML 2 ML AMP IV PRN
[2022-07-21] MEDS ORDERED: SODIUM CHLORIDE 0.9% 1,000 ML in EMPTY BAG 1 BAG IV SCH (09:30)
[2022-07-21] MEDS ORDERED: HEPARIN SODIUM 1,000 UN/ML (10ML VL) ONE (12:44)
[2022-07-21] MEDS ORDERED: VERAPAMIL 2.5 MG/ML 2 ML AMP ONE (12:44)
[2022-07-21] MEDS: MIDAZOLAM 2 MG/2 ML VIAL IVP ONE ×2 (12:51→12:59)
[2022-07-21] MEDS ORDERED: LIDOCAINE 1% INJ 10MG/ML (5 ML VIAL-PF) SQ ONE (12:51)
[2022-07-21] MEDS ORDERED: IOPAMIDOL-370 125ML BTL INJ ONE (13:23)
[2022-07-21] MEDS ORDERED: RX INFO: IV CONTRAST WAS GIVEN 1 EACH MISC MISCELLANE PRN (13:29)
[2022-07-21] MEDS ORDERED: SODIUM CHLORIDE 0.9% 1,000 ML IV SCH (13:30)
--- NOTE | 2022-07-21 13:35 | P.PCN ---
Date of Procedure: 07/21/22 Operative Findings: CARDIAC CATHETERIZATION PERFORMING PHYSICIAN: Bebo Davenport MD, [facility] PROCEDURE PERFORMED: 1. Selective right and left coronary angiogram 2. MARTIN into LAD angiogram, SVG to LCx angiogram, and SVG to RCA angiogram 3. Selective right common femoral artery angiogram INDICATION: Chest discomfort in the 71-year-old female patient who underwent myocardial perfusion imaging stress is showed anterior ischemia COMPLICATION: None APPROACH: Right common femoral artery LEVEL OF SEDATION: Moderate sedation length of 30 minutes PROCEDURE DESCRIPTION: After obtaining an informed consent, the patient was brought to cardiac laborer tree tapping. Local anesthesia was performed using lidocaine subcutaneously. The right common femoral artery was cannulated using Seldinger technique, the guidewire passed easily, following that we advanced a 6 Moroccan sheath dilator assembly, the wire and dilator were removed and sheath was flushed. Selective right and left coronary angiogram using a 6-Moroccan JR4 and JL catheters. All the bypasses angiogram was performed using JR4 catheter except for the MARTIN angiogram was performed using an IM catheter Following that I did selective right common femoral artery injury The procedure was completed there was no complication. SELECTIVE CORONARY ANGIOGRAM: The right coronary artery: Is chronically occluded Left main: Severe disease The left circumflex: Severe disease The left anterior descending artery: Is occluded CORONARY BYPASSES ANGIOGRAM: The MARTIN to LAD is patent SVG to LCx is patent SVG to RCA is patent CONCLUSION: 1. Severe triple-vessel CAD 2. Patent MARTIN into LAD 3. Patent SVG to LCx 4. Patent SVG to RCA POSTPROCEDURE MANAGEMENT: Medical treatment and follow-up
[2022-07-21] MEDS ORDERED: traMADol 50 MG TAB PO STA (13:48)
[2022-07-21 16:57] VITALS: RESP 18
[2022-07-21 18:01] VITALS: BP 127/64; PULSE 54; TEMP 97.7
== END 2022-07-21 19:54 | disposition home or self-care (01) ==
LOC: CATHCVL 09:22 → 6NMEDSUR 13:24 → CATHCVL 19:54
PROVIDERS: ATTEND Internal Medicine Interventional Cardiology
DX: I25.10 Atherosclerotic heart disease of native coronary artery without angina pectoris (principal); I25.5 Ischemic cardiomyopathy; I44.7 Left bundle-branch block, unspecified; Z95.5 Presence of coronary angioplasty implant and graft; I11.0 Hypertensive heart disease with heart failure; I50.22 Chronic systolic (congestive) heart failure; Z95.810 Presence of automatic (implantable) cardiac defibrillator; E78.5 Hyperlipidemia, unspecified; I65.29 Occlusion and stenosis of unspecified carotid artery; I48.0 Paroxysmal atrial fibrillation; E11.51 Type 2 diabetes mellitus with diabetic peripheral angiopathy without gangrene; Z88.8 Allergy status to other drugs, medicaments and biological substances; Z79.02 Long term (current) use of antithrombotics/antiplatelets; Z79.82 Long term (current) use of aspirin; Z79.83 Long term (current) use of bisphosphonates; Z79.52 Long term (current) use of systemic steroids; Z79.891 Long term (current) use of opiate analgesic; Z79.811 Long term (current) use of aromatase inhibitors; Z79.4 Long term (current) use of insulin; Z79.01 Long term (current) use of anticoagulants; Z79.51 Long term (current) use of inhaled steroids; Z79.1 Long term (current) use of non-steroidal anti-inflammatories (NSAID); Z79.2 Long term (current) use of antibiotics
CPT/HCPCS: 93455; C1760; C1769 ×2; C1894; J2250; J2001; Q9967

== ENCOUNTER → 2022-12-11 | Outpatient (CLI) | payer MEDICARE ==
--- NOTE | 2022-12-11 09:25 | CT ---
EXAMINATION TYPE: CT brain wo con DATE OF EXAM: 12/11/2022 HISTORY: Contusion, fall [address] DLP: 1040 mGycm. Automated Exposure Control for Dose Reduction was Utilized. TECHNIQUE: CT scan of the head is performed without contrast. COMPARISON: CT brain 2009. FINDINGS: There is no acute intracranial hemorrhage or midline shift identified. There is mild diff use ventricular and sulcal prominence now identified. Ha-white matter differentiation fairly well p reserved. Calcification right lens is present. The paranasal sinuses are grossly clear. The calvari um is intact. IMPRESSION: No acute intracranial hemorrhage or midline shift.
== END | disposition home or self-care (01) ==
LOC: RADCTMAIN 08:49
PROVIDERS: ATTEND Family Medicine
DX: S00.83XA Contusion of other part of head, initial encounter (principal)
CPT/HCPCS: 70450

== ENCOUNTER → 2023-07-15 | Outpatient (CLI) | payer MEDICARE ==
--- NOTE | 2023-07-15 12:51 | CT ---
EXAMINATION TYPE: CT lumbar spine wo con DATE OF EXAM: 07/15/2023 10:36 AM COMPARISON: Prior CT April 30, 2016 HISTORY: lumbar disc displacement per order. Severe pain in lower back when standing and walking with multiple falls extending into right buttocks and thigh per patient for a long time CT DLP: 1165.1 mGycm Automated exposure control for dose reduction was used. Unenhanced CT of the lumbar spine was performed. Bone and soft tissue window settings are submitted as well as coronal and sagittal reconstructions. There are 5 lumbar type vertebra are redemonstrated. Persistent severe disc space narrowing with vacu um disc phenomenon at L4-L5 level. Persistent mild to moderate disc space narrowing and vacuum disc p henomenon at L5-S1 level. Vertebral body heights are preserved. Alignment is stable and satisfactory. Axial images at T12-L1 and L1-L2 levels remain within normal limits. At L2-L3, persistent central disc protrusion effacing the anterior spinal canal on image 29 appears s imilar to prior. Bilateral neural foramina remain patent. Mild facet arthropathy bilaterally redemons trated. At L3-L4, there is diffuse disc bulge with moderate bilateral facet degenerative change redemonstrate d. Changes result in moderate right neuroforaminal stenosis similar to prior. At L4-L5, there is disc osteophyte complex with moderate hypertrophic facet arthropathy redemonstrate d. Left paracentral disc osteophyte complex may abut the traversing left L5 nerve root axial image 5 0 similar to prior. Persistence moderate to severe left and moderate right neuroforaminal stenosis re demonstrated. At L5-S1, diffuse disc bulge with moderate hypertrophic facet arthropathy. Persistent severe left and moderate to severe right neuroforaminal stenosis. No significant spinal canal stenosis. Mild to moderate degenerative change at the bilateral sacroiliac joints redemonstrated and stable. Moderate to severe atherosclerotic calcifications within the abdominal aorta and iliac arteries. Partial visualization of exophytic lesion posteriorly from left kidney on current study axial image 1 8. IMPRESSION: Multilevel degenerative changes in lumbar spine redemonstrated as detailed above greatest in the mid to lower lumbar levels. Overall no significant change or progression from 2016 CT.
--- NOTE | 2023-07-15 13:03 | CT ---
EXAMINATION TYPE: CT cervical spine wo con DATE OF EXAM: 07/15/2023 COMPARISON: NONE HISTORY: cervical disc disorder with myelopathy per order. Headaches with Chronic neck pain for at le ast 8 years and frequent falls. CT DLP: 882.1 mGycm. Automated Exposure Control for Dose Reduction was Utilized. TECHNIQUE: CT scan of the cervical spine is obtained without contrast, axial images are obtained, sa gittal and coronal reformatted images are also reviewed. FINDINGS: Cervical spine is visualized in its entirety from C1 through upper thoracic levels, there i s grade 1 retrolisthesis C5 on C6. Vertebral body heights are preserved. Moderate disc space narrowin g with moderate to severe spurring at C5-C6 levels is redemonstrated. Review of axial images shows some bilateral uncovertebral facet degenerative changes C3-C4 level with mild bilateral narrowing. Axial images at C4-C5 level show posterior spur disc complex effacing anterior thecal sac on axial i mage 43. Asymmetrical mild right-sided neural foraminal narrowing. Axial images at C5-C6 levels with spondylolisthesis with posterior spur disc complex effacing the ant erior thecal sac and uncovertebral facet degenerative changes causing mild to moderate bilateral neur al foraminal narrowing. Axial images at C6-C7 level show focal left paracentral disc protrusion on image 57 through 59 facing anterolateral thecal sac abuts the ventral surface of the spinal cord and causing asymmetric moderat e to severe left-sided neural foraminal narrowing particularly inferiorly. Right-sided neural foramin a is patent. Axial images at C7-T1 level appear within normal limits. There is partial visualization of pacemaker leads in the upper thorax. Thyroid gland is small in size , correlate clinically for hypothyroidism. At least moderate ossified plaque bilateral carotid bulbs greater in prominence on the left. Consider repeat ultrasound as ultrasound February 12, 2021 did not sh ow significant stenosis. IMPRESSION: Multilevel degenerative change greatest in the mid to lower cervical spine as detailed ab ove. C5-C6 spondylolisthesis is present.
--- NOTE | 2023-07-16 00:01 | BD ---
EXAMINATION TYPE: Axial Bone Density DATE OF EXAM: 07/15/2023 CLINICAL HISTORY: 72 years old Female. ICD-10 CODE: M85.9 DISORDER OF BONE DENSITE Height: 62.25 Weight: 182.4 FRAXIN RISK QUESTIONS: Alcohol (3 or more units per day): no Family History (Parent hip fracture): no Glucocorticoids (More than 3mos): no History of Fracture in Adulthood: Ankle Secondary Osteoporosis: 1. Type 1 Diabetes: no 2. Hyperthyroidism: no 3. Menopause before 45: yes 4. Malnutrition: no 5. Chronic liver disease: Fatty Liver Rheumatoid Arthritis: no Current Tobacco Use: no RISK FACTORS HISTORY OF: Hip Fracture (Right/Left): no Spine Fracture: no History of Wrist Fracture: no Surgery to Spine/Hip(right/left)/Wrist (right/left): no Family History of Osteoporosis: no Active: no Diet low in dairy products/other sources of calcium: no Postmenopausal woman: yes Take estrogen and/or progesterone medications: no Lost more than 2 inches in height since high school: no Frequent falls: yes Poor Health: no Hyperparathyroidism: no Adrenal Insufficiency: no MEDICATIONS: Prednisone or other steroids no Thyroid Medications: Synthroid How Long: Past 55 years Osteoporosis Medications: no Additional Medications: Cholesterol x2, BP Meds, Depression Meds x2, Vit D Additional History: EXAM MEASUREMENTS: Bone mineral densitometry was performed using the [email or web address] System. Bone mineral density as measured about the Lumbar spine is: ----- L1-L4(G/cm2): 1.481 T Score Values are as follows: ----- L1: 2.2 ----- L2: 2.3 ----- L3: 2.4 ----- L4: 3.0 ----- L1-L4: 2.5 Z Score Values are as follows: ----- L1: 3.3 ----- L2: 3.4 ----- L3: 3.5 ----- L4: 4.0 ----- L1-L4: 3.6 Bone mineral density has: increased 0.7 % since study of: 03/16/2017 Bone mineral density about the R hip (g/cm2): 1.067 Bone mineral density about the L hip (g/cm2): 1.092 T Score values are as follows: -----R Neck: -0.6 -----L Neck: 0.0 -----R Total: 0.5 -----L Total: 0.7 Z Score values are as follows: -----R Neck: 0.8 -----L Neck: 1.4 -----R Total: 1.5 -----L Total: 1.7 Bone mineral density has: decreased -13.1 % since study of: 03/16/2017 FRAX%s: The graph provided illustrates a 7.6% chance for a major osteoporotic fx and a 0.6% chance fo r the hips probability for fx in 10 years time. IMPRESSION: Normal (Values between +1 and -1 indicate normal bone mass). Consider repeating this study in 5 year s or sooner if there is some new clinical indication. NOTE: T-SCORE=SD OF THE YOUNG ADULT MEAN.
--- NOTE | 2023-07-16 18:41 | MM ---
Reason for Exam: Screening (asymptomatic). Last screening mammogram was performed 12 month(s) ago. Patient History: Menarche at age 11. First Full-Term at age 25. Left ovary removed at age 44. Right ovary removed at age 44. Hysterectomy at age 44. Postmenopausal. Hormonal Contraceptives for 6 months from age 22 until age 22. Paternal cousin had breast cancer, age 45. Maternal cousin had breast cancer. Sister had breast cancer, age 50. Sister had breast cancer. Sister had breast cancer. Risk Values: Janet 5 year model risk: 5.4%. NCI Lifetime model risk: 14.8%. Prior Study Comparison: 04/25/2019 Bilateral Diagnostic Mammogram, [facility]. 03/07/2021 Bilateral Screening Mammogram, [facility]. 07/13/2022 Bilateral MG 3D screening mammo w/cad, [facility]. Tissue Density: There are scattered fibroglandular densities. Findings: Analyzed By CAD. Pattern appears symmetrical and stable. Benign vascular calcification is present. Pacemaker overlies the left chest. No suspicious groups of microcalcifications, spiculated or lobular masses, architectural distortion or other secondary signs of malignancy are mammographically apparent. Overall Assessment: Benign, BI-RAD 2 Management: Screening Mammogram of both breasts in 1 year. A negative mammogram report should not preclude additional follow up of suspicious palpable abnormalities. Patient should continue monthly self breast exam. A clinical breast exam by your physician is recommended on an annual basis and results should be correlated with mammographic findings. Electronically signed and approved by: Dejon Sawant D.O. Radiologis
== END ==
LOC: RADMAMWWP 09:07
PROVIDERS: ATTEND Family Medicine
DX: Z12.31 Encounter for screening mammogram for malignant neoplasm of breast (principal); M51.26 Other intervertebral disc displacement, lumbar region; M85.9 Disorder of bone density and structure, unspecified; M47.816 Spondylosis without myelopathy or radiculopathy, lumbar region; M47.12 Other spondylosis with myelopathy, cervical region; M50.00 Cervical disc disorder with myelopathy, unspecified cervical region; M43.12 Spondylolisthesis, cervical region; R29.6 Repeated falls; Z80.3 Family history of malignant neoplasm of breast; Z78.0 Asymptomatic menopausal state
CPT/HCPCS: 72125; 72131; 77063; 77067; 77080

== ENCOUNTER 2023-10-28 07:51 | Day surgery (SDC) | payer MEDICARE ==
[2023-10-28] MEDS: diazePAM 5 MG TAB PO STA (08:57)
[2023-10-28 09:13] VITALS: RESP 16; TEMP 97.6
[2023-10-28] MEDS ORDERED: HYDROcodone/APAP 5-325MG 1 EACH TAB PO PRN (10:14)
--- NOTE | 2023-10-28 14:45 | FL ---
EXAMINATION TYPE: FL myelogram lumbosacral DATE OF EXAM: 10/28/2023 10:59 AM CLINICAL INDICATION:Female, 73 years old with history of M54.16 radiculopathy lumbar region; COMPARISON: CT same day, lumbar spine 08/25/2023 ATTENDING: Sam Andrade D.O. FINDINGS: Informed consent was obtained including discussion of the risks and benefits. Timeout was taken per p rotocol. Real-time fluoroscopy was performed to localize the lumbar spine access site. The patient wa s prepped and draped. Under sterile technique with local anesthesia a 22-gauge spinal needle was intr oduced into the arachnoid space with return of clear CSF. A total of 10 cc of Isovue-200 M was inject ed with appropriate opacification of the thecal sac. Total fluoroscopy time was 2 minutes 32 seconds Total fluoroscopic images . Radiographs taken: 9 DAP: Not Reported by machine mGycm2 IMPRESSION: Successful lumbar puncture with injection for CT myelogram. CT pending.
[2023-10-28 15:55] VITALS: BP 125/72; PULSE 65
--- NOTE | 2023-10-29 18:29 | CT ---
EXAMINATION TYPE: CT lumbar spine w con CT DLP: 1465.3 mGycm, Automated exposure control for dose reduction was used. DATE OF EXAM: 10/28/2023 10:42 AM COMPARISON: 07/15/2023. CLINICAL INDICATION:Female, 73 years old with history of M54.16 radiculopathy lumbar region; PHH, rad iculopathy lumbar region TECHNIQUE: Multiple axial images were obtained from the midportion of T11 through the sacroiliac reed nts. Soft tissue and bone windows in coronal and sagittal planes were obtained and reviewed. 3-D ref ormats of the bones were created on a separate workstation and submitted for review. Contrast used:10ml mL of Isovue M200 with IV Contrast, (None, if empty). Oral contrast used: (None, if empty). FINDINGS: Alignment: There are 5 lumbar type vertebral bodies within normal alignment. Bone: There is multilevel degeneration changes throughout the spine with osteophyte formation, disc space narrowing and facet joint arthropathy. There is pseudoarthrosis of the spinous processes. Discs: T12-L1: No spinal canal or neural foraminal stenosis is identified. L1-L2: Facet joint arthropathy and disc bulging result with mild spinal canal stenosis and mild bilat eral neural foraminal stenosis. L2-L3: Facet joint arthropathy and disc bulging result with mild spinal canal stenosis and mild bilat eral neural foraminal stenosis. L3-L4: Facet joint arthropathy and disc bulging result with mild spinal canal stenosis and mild bilat eral neural foraminal stenosis. L4-L5: Facet joint arthropathy, osteophytes and disc bulging result in mild spinal canal stenosis and moderate right and severe left neural foraminal stenosis. L5-S1: Facet joint arthropathy, osteophytes and disc bulging result in mild spinal canal stenosis and severe bilateral bilateral neural foraminal stenosis. Other: Simple appearing left renal cyst. Severe atherosclerosis of the arteries. The gallbladder appe ars surgically absent. IMPRESSION: 1. No evidence for spinal fracture. 2. 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 3. Moderate degeneration changes throughout the spine with neural foraminal stenosis worse at L4-L5 with moderate right and severe left and L5-S1 with severe bilateral neural foraminal stenosis. Findin gs felt to be overall worse at right L5-S1. Correlate with patient's symptoms.
== END 2023-10-28 14:33 | disposition home or self-care (01) ==
LOC: RADPROMAIN 07:51
PROVIDERS: ATTEND Orthopaedic Surgery
DX: M47.26 Other spondylosis with radiculopathy, lumbar region (principal); M48.061 Spinal stenosis, lumbar region without neurogenic claudication
CPT/HCPCS: 62304; 72132; J2001; Q9966

== ENCOUNTER → 2024-06-23 | Outpatient (CLI) | payer MEDICARE ==
[2024-06-23 18:30] LABS: HCT 42.2 % (37.2-46.3); HGB 12.7 g/dL (12.0-15.0); MCH 29.7 pg (27.0-32.0); MCHC 30.1 g/dL (32.0-37.0); MCV 98.8 FL (80.0-97.0); Mean Platelet Volume 11.4 FL (9.5-12.2); NRBC Per 100 WBC 0 X 10*3/uL (0.00-0.01); Platelet Count 208 X 10*3/uL (140-440); RBC 4.27 X 10*6/uL (4.10-5.20); RDW 14.5 % (11.5-14.5); WBC 5.63 X 10*3/uL (4.50-10.00)
[2024-06-23 21:49] LABS: Blood Urea Nitrogen 19.4 mg/dL (9.0-27.0); Carbon Dioxide 26.6 mmol/L (21.6-31.8); Chloride 104 mmol/L (96-109); Potassium 5.5 mmol/L (3.5-5.5); Sodium 138 mmol/L (135-145)
== END | disposition home or self-care (01) ==
LOC: LABPAT 12:09
PROVIDERS: ATTEND Internal Medicine Interventional Cardiology
DX: Z01.812 Encounter for preprocedural laboratory examination (principal); R94.39 Abnormal result of other cardiovascular function study
CPT/HCPCS: 80051; 82565; 84520; 85027

== ENCOUNTER 2024-06-27 08:46 | Day surgery (SDC) | payer MEDICARE ==
[~2024-06-27 08:46] MED LIST changes: -ASPIRIN 325 MG TAB PO STA; -ATORVASTATIN 80 MG TAB PO STA; -HEPARIN SODIUM,PORCINE 10,000 UNIT in SODIUM CHLORIDE 0.9% 1,000 ML IRRIGATION PRN; -HEPARIN SODIUM,PORCINE 2,500 UNIT in SODIUM CHLORIDE 0.9% 250 ML IRRIGATION PRN
[2024-06-27] MEDS: IV FLUID CONTINUATION 1,000 ML IV ONE (09:37)
[2024-06-27] MEDS: fentaNYL (PF) 50 MCG/ML 2 ML AMP IVP ONE (11:42)
[2024-06-27] MEDS: MIDAZOLAM 2 MG/2 ML VIAL IVP ONE ×2 (11:42→12:13)
[2024-06-27] MEDS: HEPARIN SODIUM,PORCINE 10,000 UNIT in SODIUM CHLORIDE 0.9% 1,000 ML IRRIGATION ONE (11:45)
[2024-06-27] MEDS: HEPARIN SODIUM,PORCINE (1 ML) 2,500 UNIT in SODIUM CHLORIDE 0.9% 250 ML IRRIGATION ONE (11:45)
[2024-06-27] MEDS: LIDOCAINE 1% INJ 10MG/ML (20 ML MDV) SQ ONE (11:46)
[2024-06-27] MEDS: HEPARIN SODIUM 1,000 UN/ML (10ML VL) IVP ONE (12:11)
[2024-06-27] MEDS: IOPAMIDOL-370 100ML BTL INJ ONE ×2 (12:22→13:15)
[2024-06-27] MEDS: SODIUM CHLORIDE 0.9% 1,000 ML IV ONE (12:30)
[2024-06-27] MEDS: HYDROmorphone 0.5 MG/0.5 ML SYRINGE IVP ONE (12:36)
[2024-06-27] MEDS: TICAGRELOR 90 MG TAB PO ONE (12:49)
[2024-06-27] MEDS: NITROGLYCERIN 1000MCG/10ML SYRINGE INTRACORON ONE ×2 (13:05)
[2024-06-27] MEDS ORDERED: ACETAMINOPHEN TAB 500 MG TAB PO PRN (13:19)
[2024-06-27] MEDS ORDERED: BACLOFEN 10 MG TAB PO PRN (13:19)
[2024-06-27] MEDS ORDERED: NITROGLYCERIN SL TABS 0.4 MG TAB SUBLINGUAL PRN ×2 (13:19→13:20)
[2024-06-27] MEDS ORDERED: ALBUTEROL NEBULIZED 2.5 MG/3 ML INHALATION PRN (13:19)
[2024-06-27] MEDS ORDERED: MONTELUKAST 10 MG TAB PO PRN (13:19)
[2024-06-27] MEDS ORDERED: SYMBICORT 160-4.5 MCG INHALER INHALATION PRN (13:19)
[2024-06-27] MEDS ORDERED: traMADol 50 MG TAB PO PRN (13:19)
[2024-06-27] MEDS ORDERED: ATROPINE SULFATE 0.1 MG/ML 10ML SYRINGE IV PRN (13:20)
[2024-06-27] MEDS ORDERED: MAG HYDROX/AL HYDROX/SIMETH 30 ML CUP PO PRN (13:20)
[2024-06-27] MEDS ORDERED: ZOLPIDEM 5 MG TAB PO PRN (13:20)
[2024-06-27] MEDS ORDERED: RX INFO: IV CONTRAST WAS GIVEN 1 EACH MISC MISCELLANE PRN (13:20)
--- NOTE | 2024-06-27 13:27 | P.PCN ---
Date of Procedure: 06/27/24 Operative Findings: CARDIAC CATHETERIZATION AND PERCUTANEOUS CORONARY INTERVENTION PERFORMING PHYSICIAN: Bebo Davenport MD, [facility] PROCEDURE PERFORMED: 1. Selective right and left coronary angiogram and MARTIN to LAD angiogram and SVG to LCx angiogram and SVG to RCA angiogram and left heart catheterization 2. Successful stenting of the proximal left circumflex using 3.5 x 18 mm Xience NICHOLAS with an excellent angiographic result 3. Successful stenting of protected left main using 4.0 x 28 mm Xience NICHOLAS with an excellent angiographic results 4. Adjunctive use of IVUS and lithotripsy balloon 5. Ultrasound-guided access of the right common femoral artery and selective right common femoral artery angiogram INDICATION: Chest discomfort in this 73-year-old female patient who underwent myocardial perfusion imaging stress test came in to be abnormal showing ischemia/reversibility which she is known to have CAD with prior open heart with a MARTIN to LAD and SVG to OM and SVG to RCA COMPLICATION: None APPROACH: Right common femoral artery LEVEL OF SEDATION: Moderate with the sedation time off 70 minutes PROCEDURE DESCRIPTION: After obtaining informed consent the patient was brought to the cardiac Attendance Secretary. The right common femoral artery was cannulated using micropuncture technique under ultrasound guidance a micropuncture wire passed easily then I placed a 6 Belgian 11 cm sheath at the right common femoral artery after that the sheath was secured. After that I did selective left and right coronary angiogram using JL 4 and JR4 catheters. After that MARTIN to LAD angiogram was performed using the JR4 catheter and SVG to LCx angiogram was also performed using the JR4 catheter and SVG to RCA was performed using multipurpose catheter. Left heart catheterization was performed using 6 Belgian pigtail catheter. After that we decided to intervene on the left circumflex coronary artery with anticoagulation was initiated using heparin with continuous ACT monitoring. Subsequently I did engage the left main using an XB 3 5 guiding catheter. I did wired it using initially a run-through wire and subsequently BMW wire because I could not advance the IVUS over the run-through wire. After that attempting advancing and IVUS again over either wire was unsuccessful and for that reason we decided to do an angioplasty. I decided to start using 2 mm noncompliant balloon but I did PTCA of the proximal left circumflex and left main coronary artery. After that balloon angioplasty was performed using 3 mm NC balloon. Subsequently given the calcifications of the left circumflex and left main I did lithotripsy balloon using 3.5 mm NC balloon. Attempting advancing 3.5 x 18 mm Xience was unsuccessful but was successful with adjunctive use of guide liner. After that I deployed 3.5 x 18 mm stent in the proximal left circumflex coronary artery and in the left main coronary artery I deployed 4.0 x 28 mm stents. Final angiogram showed good angiographic results and I did IVUS as well. The procedure was completed with no complication SELECTIVE CORONARY ANGIOGRAM: The right coronary artery: Is occluded Left main: Has intermediate lesion appears to be in the range of 50% The left circumflex: Has critical lesion in the proximal portion The left anterior descending artery: Occluded proximally Coronary bypasses angiogram The MARTIN to LAD is patent The SVG to OM is patent The SVG to RCA is patent as well HEMODYNAMICS: LVEDP was 10 mmHg with no significant gradient across aortic valve CONCLUSION: Severe triple-vessel coronary artery disease Patent MARTIN to LAD Patent SVG to OM1 but critical disease involving the mid left circumflex. I did perform PCI of the left circumflex as well as PCI of protected left main Patent SVG to RCA POSTPROCEDURE MANAGEMENT: 1. Dual antiplatelet therapy using aspirin and Brilinta for at least 6 month 2. Aggressive cholesterol control 3. Follow-up with the patient
[2024-06-27] MEDS: ASPIRIN 325 MG TAB PO STA (15:55)
[2024-06-27] MEDS: GABAPENTIN 300 MG CAP PO STA (16:08)
[2024-06-27] MEDS: SODIUM CHLORIDE 0.9% 1,000 ML in EMPTY BAG 1 BAG IV SCH ×2 (16:47→17:44)
[2024-06-27 16:52] LABS: Glucose,Whole Blood 106 mg/dL (70-110)
[2024-06-27] MEDS: Insulin Aspart (For Pump) 100 UNIT/ML VIAL SQ-PUMP SCH (17:03)
[2024-06-27] MEDS: carvediloL 6.25 MG TAB PO SCH (17:43)
[2024-06-27] MEDS: ARTIFICIAL TEARS-HYPROMELLOSE DROPS 15 ML BTL BOTH EYES SCH (18:03)
[2024-06-27] MEDS: TICAGRELOR 90 MG TAB PO SCH (19:58)
[2024-06-27] MEDS: SACUBITRIL/VALSARTAN 24 MG-26 MG TABLET PO SCH (19:59)
[2024-06-27] MEDS: ATORVASTATIN 40 MG TAB PO SCH (19:59)
[2024-06-27] MEDS: traZODone HCL 50 MG TAB PO SCH (19:59)
[2024-06-27] MEDS: EZETIMIBE 10 MG TAB PO SCH (19:59)
[2024-06-27] MEDS: busPIRone HCl 10 MG TAB PO SCH (19:59)
[2024-06-27] MEDS: GABAPENTIN 300 MG CAP PO SCH (19:59)
[2024-06-27] MEDS: ASPIRIN 81 MG PO SCH (19:59)
[2024-06-27] MEDS: buPROPion XL 150 MG TAB.ER.24H PO SCH (19:59)
[2024-06-27 20:00] LABS: Glucose,Whole Blood 132 mg/dL (70-110)
[2024-06-27] MEDS: FUROSEMIDE 10 MG/ML 4 ML VIAL IV STA (21:28)
[2024-06-27 23:11] LABS: Glucose,Whole Blood 136 mg/dL (70-110)
[2024-06-28 05:58] LABS: Glucose,Whole Blood 195 mg/dL (70-110)
[2024-06-28] MEDS: LEVOTHYROXINE 125 MCG TAB PO SCH (06:15)
[2024-06-28 07:42] LABS: African American GFR (CKD) 48 (>60 ml/min/1.73 sqM); Non-African American GFR(CKD) 42 (>60 ml/min/1.73 sqM)
[2024-06-28] MEDS: busPIRone HCl 10 MG TAB PO SCH (09:03)
[2024-06-28] MEDS: FUROSEMIDE 20 MG TAB PO SCH (09:03)
[2024-06-28] MEDS: DAPAGLIFLOZIN PROPANEDIOL 10 MG TABLET PO SCH (09:03)
[2024-06-28 10:33] VITALS: BP 97/58; PULSE 68; RESP 16; TEMP 97.8
[2024-06-28 12:16] VITALS: BMI 36.1
[2024-06-28] MEDS ORDERED: GABAPENTIN 300 MG CAP PO SCH (12:30)
--- NOTE | 2024-06-28 20:26 | P.DS ---
Providers Attending physician: Bebo Davenport Consults: 06/27/24 13:20 Consult Physician Routine Consulting Provider: [facility] Consult Reason/Comments: Post Interventional patient Do you want consulting provider notified?: Already Contacted Primary care physician: [facility] Course: The patient is a pleasant 73-year-old female patient who underwent a heart catheterization and PCI of protected left main and left circumflex with good angiographic results She was seen and evaluated this morning which she is asymptomatic and hemodynamically stable with the right groin being soft and nontender and with no bruises The patient is going to be discharged home on dual antiplatelet therapy and the patient will be seen by Dr. Villanueva her primary cctv technician Plan - Discharge Summary Discharge Rx Participant: No New Discharge Prescriptions: New Ticagrelor [Brilinta] 90 mg PO BID #180 tab Continue Budesonide-Formot 160-4.5 Mcg [Symbicort 160-4.5 Mcg Inhaler] 2 puff INHALATION BID PRN PRN Reason: Shortness Of Breath fluvoxaMINE MALEATE [Luvox] 300 mg PO HS Furosemide [Lasix] 20 mg PO MOWEFR Montelukast [Singulair] 10 mg PO QAM PRN PRN Reason: allergies Ezetimibe [Zetia] 10 mg PO HS Albuterol Inhaler [Ventolin Hfa Inhaler] 2 puff INHALATION Q4-6H PRN PRN Reason: sob buPROPion SR [Wellbutrin SR] 175 mg PO BID Ergocalciferol [Vitamin D2 (DRISDOL)] 50,000 unit PO PRUITT Baclofen [Lioresal] 20 mg PO TID PRN PRN Reason: Pain Sacubitril/Valsartan [Entresto 24 mg-26 mg Tablet] 1 tab PO BID Insulin Aspart (For Pump) [NovoLOG (For Pump)] 0.01 unit SQ-PUMP CONTINUOUS Rosuvastatin Calcium [Crestor] 20 mg PO HS traMADol HCl [Ultram] 50 mg PO QID PRN PRN Reason: Pain carvediloL [Coreg] 6.25 mg PO BID Acetaminophen Tab [Tylenol] 1,000 mg PO Q6HR PRN tab PRN Reason: Fever and/ or Mild Pain traZODone HCL [Desyrel] 50 mg PO HS Gabapentin [Neurontin] 1 capsule PO TID Semaglutide [Ozempic] 0.25 mg SQ MO Levothyroxine Sodium [Synthroid] 112 mcg PO DAILY busPIRone HCl [Buspar] 30 mg PO QAM Dapagliflozin Propanediol [Farxiga] 10 mg PO QAM Non Formulary Drug 1 drop BOTH EYES TID Nitroglycerin Sl Tabs [Nitrostat] 0.4 mg SUBLINGUAL Q5M PRN PRN Reason: Chest Pain busPIRone HCL 15 mg PO HS Changed Aspirin [Adult Low Dose Aspirin EC] 81 mg PO DAILY #0 Discharge Medication List Budesonide-Formot 160-4.5 Mcg [Symbicort 160-4.5 Mcg Inhaler] 2 puff INHALATION BID PRN 12/27/15 [History] Ezetimibe [Zetia] 10 mg PO HS 12/27/15 [History] Furosemide [Lasix] 20 mg PO MOWEFR 12/27/15 [History] Montelukast [Singulair] 10 mg PO QAM PRN 12/27/15 [History] fluvoxaMINE MALEATE [Luvox] 300 mg PO HS 12/27/15 [History] Albuterol Inhaler [Ventolin Hfa Inhaler] 2 puff INHALATION Q4-6H PRN 03/29/17 [History] Ergocalciferol [Vitamin D2 (DRISDOL)] 50,000 unit PO PRUITT 03/29/17 [History] buPROPion SR [Wellbutrin SR] 175 mg PO BID 03/29/17 [History] Baclofen [Lioresal] 20 mg PO TID PRN 01/10/18 [History] Sacubitril/Valsartan [Entresto 24 mg-26 mg Tablet] 1 tab PO BID 04/11/18 [History] Insulin Aspart (For Pump) [NovoLOG (For Pump)] 0.01 unit SQ-PUMP CONTINUOUS 05/17/18 [History] Rosuvastatin Calcium [Crestor] 20 mg PO HS 06/06/18 [History] traMADol HCl [Ultram] 50 mg PO QID PRN 07/18/18 [History] carvediloL [Coreg] 6.25 mg PO BID 04/04/19 [History] Acetaminophen Tab [Tylenol] 1,000 mg PO Q6HR PRN tab 05/03/19 [Rx] Levothyroxine Sodium [Synthroid] 112 mcg PO DAILY 07/16/22 [History] Dapagliflozin Propanediol [Farxiga] 10 mg PO QAM 10/19/23 [History] Gabapentin [Neurontin] 1 capsule PO TID 10/19/23 [History] Nitroglycerin Sl Tabs [Nitrostat] 0.4 mg SUBLINGUAL Q5M PRN 10/19/23 [History] Non Formulary Drug 1 drop BOTH EYES TID 10/19/23 [History] busPIRone HCl [Buspar] 30 mg PO QAM 10/19/23 [History] traZODone HCL [Desyrel] 50 mg PO HS 10/19/23 [History] Semaglutide [Ozempic] 0.25 mg SQ MO 10/28/23 [History] busPIRone HCL 15 mg PO HS 06/26/24 [History] Aspirin [Adult Low Dose Aspirin EC] 81 mg PO DAILY #0 06/28/24 [Rx] Ticagrelor [Brilinta] 90 mg PO BID #180 tab 06/28/24 [Rx] Follow up Appointment(s)/Referral(s): Fab Villanueva MD [STAFF PHYSICIAN] - 1 Week (APPOINTMENT MADE ON June @ 8:45AM ) Patient Instructions/Handouts: Moderate Sedation (DC), Left Heart Catheterization (DC) Activity/Diet/Wound Care/Special Instructions: *NO LIFTING, PUSHING, OR PULLING ANYTHING OVER 5 POUNDS FOR 5 DAYS *NO DRIVING FOR 3 DAYS *YOU CAN REMOVE YOUR DRESSING TOMORROW BUT DO NOT SUBMERSE YOUR PUNCTURE SITE IN WATER FOR A FEW DAYS TO PREVENT INFECTION - SO NO TUB BATHS, POOLS, HOT TUBS, DISHES....ETC *ANY SIGNS OF BLEEDING (HARDNESS, SWELLING, OR EXCESSIVE BRUISING) HOLD DIRECT PRESSURE ON YOUR PUNCTURE SITE AND COME TO THE NEAREST EMERGENCY ROOM TO GET YOUR PUNCTURE SITE LOOKED AT - DO NOT DRIVE YOURSELF! EITHER CALL EMS OR HAVE SOMEONE DRIVE YOU! Discharge Disposition: HOME SELF-CARE
[2024-07-02] MEDS ORDERED: ERGOCALCIFEROL 1,250 MCG (50,000 IU) CAPSULE PO SCH (09:00)
== END 2024-06-28 12:21 | disposition home or self-care (01) ==
LOC: CATHCVL 08:46 → 3SCARD 13:10 → CATHCVL 06-28 12:21
PROVIDERS: ATTEND Internal Medicine Interventional Cardiology
DX: I25.10 Atherosclerotic heart disease of native coronary artery without angina pectoris (principal); I25.84 Coronary atherosclerosis due to calcified coronary lesion; Z95.1 Presence of aortocoronary bypass graft; I25.5 Ischemic cardiomyopathy; Z95.810 Presence of automatic (implantable) cardiac defibrillator; I11.0 Hypertensive heart disease with heart failure; I50.22 Chronic systolic (congestive) heart failure; E11.51 Type 2 diabetes mellitus with diabetic peripheral angiopathy without gangrene; E78.00 Pure hypercholesterolemia, unspecified; I44.7 Left bundle-branch block, unspecified; Z79.82 Long term (current) use of aspirin; Z79.84 Long term (current) use of oral hypoglycemic drugs; Z79.4 Long term (current) use of insulin; Z79.85 Long-term (current) use of injectable non-insulin antidiabetic drugs; Z79.51 Long term (current) use of inhaled steroids; Z79.899 Other long term (current) drug therapy; Z88.8 Allergy status to other drugs, medicaments and biological substances
CPT/HCPCS: 92978; 93459; 92972; 82565; C9600; J2250; J1644 ×3; J1940; J2003; J3010; J1171; Q9967; J2305

== ENCOUNTER → 2024-08-01 | Outpatient (CLI) | payer MEDICARE ==
--- NOTE | 2024-08-01 08:18 | MM ---
Reason for Exam: Screening (asymptomatic). Last screening mammogram was performed 12 month(s) ago. Patient History: Menarche at age 11. First Full-Term at age 25. Left ovary removed at age 44. Right ovary removed at age 44. Hysterectomy at age 44. Postmenopausal. Hormonal Contraceptives for 6 months from age 22 until age 22. Paternal cousin had breast cancer, age 45. Maternal cousin had breast cancer. Paternal half sister had breast cancer, age 50. Paternal half sister had breast cancer, age 45. Paternal half sister had breast cancer, age 35. Risk Values: Janet 5 year model risk: 1.2%. NCI Lifetime model risk: 3.2%. Prior Study Comparison: 03/07/2021 Bilateral Screening Mammogram, [facility]. 07/13/2022 Bilateral MG 3D screening mammo w/cad, [facility]. 07/15/2023 Bilateral MG 3D screening mammo w/cad, [facility]. Tissue Density: There are scattered areas of fibroglandular density. Findings: Analyzed By CAD. Benign bilateral vascular calcifications. Generator device projects over the left pectoralis. There is no suspicious group of microcalcifications or new suspicious mass in either breast. Overall Assessment: Benign, BI-RAD 2 Management: Screening Mammogram of both breasts in 1 year. . Patient should continue monthly self-breast exams. A clinical breast exam by your physician is recommended on an annual basis. This exam should not preclude additional follow-up of suspicious palpable abnormalities. Note on Janet scores and lifetime risk: 1. A Janet score greater than 3% is considered moderate risk. If this is the case, consider specialist referral to assess eligibility for a risk reducing agent. 2. If overall lifetime risk for the development of breast cancer is 20% or higher, the patient may qualify for future screening with alternating mammogram and breast MRI. [facility], , 08/01/2024 8:15 AM. Electronically signed and approved by: Xi Abdullahi M.D. Radiologist
== END | disposition home or self-care (01) ==
LOC: RADMAMWWP 07:28
PROVIDERS: ATTEND Family Medicine
DX: Z12.31 Encounter for screening mammogram for malignant neoplasm of breast (principal); Z90.722 Acquired absence of ovaries, bilateral; Z78.0 Asymptomatic menopausal state; Z80.3 Family history of malignant neoplasm of breast; R92.323 Mammographic fibroglandular density, bilateral breasts
CPT/HCPCS: 77063; 77067

== ENCOUNTER → 2024-11-15 | Outpatient (CLI) | payer MEDICARE ==
[2024-11-15 09:38] LABS: Partial Thromboplastin Time 22.1 sec (22.0-30.0); Prothrombin Time 10.9 sec (10.0-12.5)
--- NOTE | 2024-11-15 09:43 | XR ---
EXAMINATION TYPE: XR chest 2V DATE OF EXAM: 11/15/2024 CLINICAL INDICATION: Female, 74 years old with history of Z01.818 ENCOUNTER FOR OTHER PREPROCEDURAL E XAM, TECHNIQUE: Frontal and lateral views of the chest are obtained. COMPARISON: Chest CT May 29, 2020 FINDINGS: Overlying sternal wires and mediastinal clips are redemonstrated. . Persistent mild cardiom egaly with multi lead pacemaker/defibrillator. Persistent left basilar scarring. Right lung remains clear. The osseous structures are intact. IMPRESSION: Chronic changes and mild cardiomegaly without acute pulmonary process. [facility], , 11/15/2024 9:41 AM
[2024-11-15 15:26] LABS: Basophils # (A) 0.05 X 10*3/uL (0.00-0.10); Basophils % (A) 0.7 %; Eosinophils # (A) 0.62 X 10*3/uL (0.04-0.35); Eosinophils % (A) 8.5 %; HCT 40.3 % (37.2-46.3); HGB 12.8 g/dL (12.0-15.0); Lymphocytes # (A) 1.13 X 10*3/uL (0.90-5.00); Lymphocytes % (A) 15.4 %; MCH 30.8 pg (27.0-32.0); MCHC 31.8 g/dL (32.0-37.0); MCV 96.9 FL (80.0-97.0); Mean Platelet Volume 11.2 FL (9.5-12.2); Monocytes # (A) 0.42 X 10*3/uL (0.20-1.00); Monocytes % (A) 5.7 %; NRBC Per 100 WBC 0 X 10*3/uL (0.00-0.01); Neutrophils # (A) 5.07 X 10*3/uL (1.80-7.70); Neutrophils % (A) 69.3 %; Platelet Count 252 X 10*3/uL (140-440); RBC 4.16 X 10*6/uL (4.10-5.20); RDW 13.5 % (11.5-14.5); WBC 7.32 X 10*3/uL (4.50-10.00)
[2024-11-15 15:41] LABS: ALT 26 U/L (8-44); AST 31 U/L (13-35); Albumin/Globulin Ratio 1.38 Ratio (1.60-3.17); Alkaline Phosphatase 116 U/L (41-126); BUN/Creat Ratio 16.58 Ratio (12.00-20.00); Blood Urea Nitrogen 19.9 mg/dL (9.0-27.0); Calcium 10.1 mg/dL (8.7-10.3); Carbon Dioxide 23.3 mmol/L (21.6-31.8); Chloride 106 mmol/L (96-109); Chol/HDL Ratio 2.49 Ratio; Globulin 2.9 g/dL (1.6-3.3); Glucose 163 mg/dL (70-110); LDL Cholesterol,Calculated 58.6 mg/dL (0.0-131.0); Potassium 4.9 mmol/L (3.5-5.5); Sodium 141 mmol/L (135-145); T4, Free (Free Thyroxine) 0.96 ng/dL (0.80-1.80); Total Bilirubin 0.2 mg/dL (0.3-1.2); Total Protein 6.9 g/dL (6.2-8.2)
[2024-11-15 17:21] LABS: NT-Pro-B-Type Natriuretic Pept 308 pg/mL (0-125)
[2024-11-15 18:37] LABS: Urine Creatinine 69.9 mg/dL (28.0-217.0)
== END | disposition home or self-care (01) ==
LOC: LABWHC1 08:51
PROVIDERS: ATTEND Orthopaedic Surgery
DX: Z01.812 Encounter for preprocedural laboratory examination (principal); Z22.322 Carrier or suspected carrier of Methicillin resistant Staphylococcus aureus; I25.5 Ischemic cardiomyopathy; E11.65 Type 2 diabetes mellitus with hyperglycemia; E55.9 Vitamin D deficiency, unspecified; E78.2 Mixed hyperlipidemia; E03.9 Hypothyroidism, unspecified; N18.32 Chronic kidney disease, stage 3b; D51.9 Vitamin B12 deficiency anemia, unspecified; M16.11 Unilateral primary osteoarthritis, right hip; Z79.4 Long term (current) use of insulin
CPT/HCPCS: 36415; 71046; 80053; 80061; 82043; 82306; 82570; 82607; 83036; 83880; 84439; 84443; 84480; 85025; 85610; 85730; 86850; 86870; 86900; 86901; 87070; 93005

== ENCOUNTER 2024-11-24 05:35 | Day surgery (SDC) | payer MEDICARE ==
[2024-11-17 10:31] VITALS: BMI 33.6
[~2024-11-24 05:35] MED LIST changes: -ALPRAZolam 0.25 MG TAB PO PRN; -ALPRAZolam 0.5 MG TAB PO PRN; +LIDOCAINE 1% (10MG/ML) FOR IV START INTRADERMA PRN; -NITROGLYCERIN SL TABS 0.4 MG TAB SUBLINGUAL PRN
[2024-11-24] MEDS ORDERED: ONDANSETRON 4 MG/2 ML VIAL IVP PRN ×2 (06:00→09:26)
[2024-11-24] MEDS ORDERED: DEXAMETHASONE SOD PHOSPHATE 10 MG/ML 1 ML VIAL IV PRN (06:00)
[2024-11-24] MEDS ORDERED: TRANEXAMIC 1,000 MG/100ML-NACL 1,000 MG in SALINE 1 100ML.BAG IV PRN (06:00)
[2024-11-24] MEDS ORDERED: TRANEXAMIC 1,000 MG/100ML-NACL 1,000 MG in SALINE 1 100ML.BAG IVPB PRN (06:00)
[2024-11-24 06:38] LABS: Glucose,Whole Blood 246 mg/dL (70-110)
[2024-11-24] MEDS: ACETAMINOPHEN TAB 500 MG TAB PO PRN (06:46)
[2024-11-24] MEDS: DOCUSATE 100 MG CAP PO PRN (06:46)
[2024-11-24] MEDS: oxyCODONE ER 10 MG TAB.ER.12H PO PRN (06:46)
[2024-11-24] MEDS: fentaNYL (PF) 50 MCG/ML 2 ML AMP IVP PRN (06:49)
[2024-11-24] MEDS: MIDAZOLAM 2 MG/2 ML VIAL IV PRN (06:49)
[2024-11-24] MEDS: ONDANSETRON 4 MG/2 ML VIAL IVP ONE (06:55)
[2024-11-24] MEDS: FAMOTIDINE 20 MG/2 ML VIAL IVP PRN (06:55)
[2024-11-24] MEDS: KETOROLAC 15 MG/ML 1 ML VIAL IVP PRN (06:56)
[2024-11-24] MEDS ORDERED: GLYCOPYRROLATE 0.2 MG/ML 2 ML VIAL ONE (07:00)
[2024-11-24] MEDS ORDERED: NEOSTIGMINE 1 MG/ML 10 ML VIAL ONE (07:00)
[2024-11-24] MEDS ORDERED: PHENYLEPHRINE-0.9% NACL SYG 1,000 MCG/10 ML SYRINGE ONE (07:00)
[2024-11-24] MEDS ORDERED: LIDOCAINE 1% INJ 10MG/ML (20 ML MDV) ONE (07:00)
[2024-11-24] MEDS ORDERED: ROPIVACAINE 5 MG/ML 30 ML VIAL ONE (07:00)
[2024-11-24] MEDS ORDERED: SUGAMMADEX SODIUM 100 MG/ML SYR IV ONE (07:00)
[2024-11-24] MEDS ORDERED: SUCCINYLCHOLINE CHLORIDE 200 MG/10 ML VIAL IV ONE (07:00)
[2024-11-24] MEDS ORDERED: fentaNYL (PF) 50 MCG/ML 2 ML AMP ONE (07:00)
[2024-11-24] MEDS ORDERED: TRANEXAMIC 1,000 MG/100ML-NACL PREMIX BAG ONE (07:00)
[2024-11-24] MEDS ORDERED: DEXAMETHASONE SOD PHOSPHATE 4 MG/ML 1 ML VIAL ONE (07:00)
[2024-11-24] MEDS ORDERED: ROCURONIUM 10 MG/ML (5 ML VIAL) IV ONE (07:00)
[2024-11-24] MEDS ORDERED: HYDROmorphone 0.5 MG/0.5 ML SYRINGE IVP PRN ×3 (07:00→09:26)
[2024-11-24] MEDS ORDERED: PROPOFOL 10 MG/ML 20 ML VIAL IV ONE (07:00)
[2024-11-24] MEDS ORDERED: NALOXONE 0.4 MG/ML 1 ML VIAL ONE (07:00)
[2024-11-24] MEDS: IV FLUID CONTINUATION 1,000 ML IV ONE (07:02)
[2024-11-24] MEDS: ceFAZolin 2 GM in DEXTROSE 5% IN WATER 50 ML IVPB PRN (07:06)
[2024-11-24] MEDS: ROPIVACAINE/EPI/CLONIDINE/KET 50 ML SYRINGE MISCELLANE PRN (07:48)
--- NOTE | 2024-11-24 07:58 | P.ANPRN ---
Procedure Note - Anesthesia - Nerve Block Performed Right Hussain Single Time Out Performed: Yes Date of Procedure: 11/24/24 Procedure Start Time: 06:49 Procedure Stop Time: 06:55 Location of Patient: PreOp Indication: Acute Post-Operative Pain, Requested by Surgeon Sedation Type: Sedate with meaningful contact maintained Preparation: Sterile Prep Position: Supine Needle Types: Pajunk Needle Gauge: 21 Ultrasound used to visualize needle placement: Yes Ultrasound used to observe medication spread: Yes Injectate: 0.5% Ropivacaine (see comment for volume) (30 ml + 4 mg Dexametha sone) Blood Aspirated: No Pain Paresthesia on Injection Noted: No Resistance on Injection: Normal Image Stored and Saved: Yes Events: Uneventful and Well Tolerated
[2024-11-24] MEDS: VANCOMYCIN 1,000 MG VIAL MISCELLANE ONE (09:03)
[2024-11-24] MEDS ORDERED: TEMAZEPAM 15 MG CAP PO PRN (09:26)
[2024-11-24] MEDS ORDERED: NALOXONE 0.4 MG/ML 1 ML VIAL IV PRN (09:26)
[2024-11-24] MEDS ORDERED: diazePAM 5 MG TAB PO PRN ×2 (09:26)
[2024-11-24] MEDS ORDERED: MAGNESIUM HYDROXIDE 2,400 MG/30 ML CUP PO PRN (09:26)
--- NOTE | 2024-11-24 09:26 | P.OP ---
Date of Procedure: 11/24/24 Preoperative Diagnosis: 1. Severe right hip osteoarthritis 2. BMI 33.6 3. Type 2 diabetes, preoperative hemoglobin A1c 7.3 4. Coronary artery disease Postoperative Diagnosis: Same Procedure(s) Performed: 1. Right direct anterior total hip arthroplasty 2. Application of negative pressure incisional wound VAC, right hip, DME, less than 50 cm, incision measuring 15 cm Implants: 1. Grace Trident II Acetabular Cup, Size #50 2. Grace Insignia Size #2 Femoral Stem, High Offset 3. Dual Mobility OD 38 mm, ID 28 mm, -2.7 mm neck Anesthesia: JAYSHREE, regional Surgeon: Fred Garza Winderman #1: Arvin Branch Estimated Blood Loss (ml): 300 IV fluids (ml): 800 Pathology: none sent Condition: stable Disposition: PACU Indications for Procedure: I had a long discussion with the patient in the office on the potential risks and complications of an elective total hip replacement through a direct anterior approach. Risks discussed include, but are certainly not limited to, risks from anesthesia, superficial infection requiring local wound care or antibiotics, deep rony-prosthetic joint infection and the treatment required to eradicate infection, intraoperative fracture, postoperative periprosthetic fracture, damage to local blood vessels or nerves particularly the lateral femoral cutaneous nerve, delayed wound healing requiring local wound care or possibly surgical debridement, hip dislocation, leg length discrepancy, soft tissue irritation around the total hip implant such as iliopsoas tendinitis or trochanteric bursitis, wear and osteolysis from the implants, squeaking or aud ible noises, groin pain, thigh pain, heterotopic ossification, stiffness, aseptic loosening of the implants, dissatisfaction with surgical outcome, need for revision surgery, DVT, PE, swelling of the operative extremity, acute coronary event, stroke, failure to thrive, and possibly loss of life or limb. The patient understands that while these are the most common complications after an elective hip replacement there are certainly other less common complications possible. They were given ample time to ask questions regarding the potential complications of a hip replacement. Following our discussion the patient provided their verbal and written consent to go forward with an elective total hip replacement. Operative Findings: Severe right hip osteoarthritis Description of Procedure: The patient was identified in the preoperative holding area and the correct hip was marked with my initials. I reviewed the procedure and consent with the patient. All of their questions were answered. The patient was then brought back into the operating room by anesthesia. While on the [facility] anesthesia was administered by the anesthesia team. Preoperative antibiotics and tranexamic acid were also given. After the patient was under anesthesia I examined their ankles to determine their preoperative leg length discrepancy. The skin over the anterior aspect of the hip was shaved to remove hair over the site of planned incision. Both feet and ankles were padded with webril and boots for the [place] were applied. The patient was then carefully transferred onto the [place] table. A perineal post was immediately placed. The arms were placed on arm holders and were well-padded. Both boots were secured to the spars on the [place] table. The patient was positioned so that the pelvis was centered over the post. Nonsterile drapes were applied. A timeout was performed identifying the correct patient, operative extremity, and procedure. At this point fluoroscopy was brought in to take preoperative images of the pelvis and operative hip. Using the standing AP pelvis from the office as a template, a comparable image was obtained with fluoroscopy. A metallic bar was used to create a bi-ischial line for use as a reference to leg length adjustments during the procedure. Global offset was also measured on both the operative and nonoperative leg. Fluoroscopy was then brought out and a pre-scrub using a chlorhexidine scrub brush was performed. The operative limb was then prepped and draped in the standard sterile fashion. An anterior longitudinal incision was made lateral and distal to the ASIS. The skin and subcutaneous tissues were incised sharply. The underlying tensor fascia was identified and incised in its midportion. The fascia was dissected free from the underlying muscle and the muscle belly was retracted. A blunt tipped cobra retractor was placed over the superior neck under the muscle fibers of the gluteus minimus. The deep enveloping fascia of the tensor was incised. The anterior leash of vessels were then identified and cauterized. The fascia between the rectus and the capsule was then incised and the pre-capsular fat was excised. A second Cobra was placed inferior to the neck. The interval between the rectus and iliocapsularis and the hip capsule was developed and a retractor was placed carefully over the anterior rim of the acetabulum. A T-shaped anterior capsulotomy was performed. The superior capsular leaflet was left in place in the inferior capsular flap was excised. The Cobra retractors were placed intracapsularly. We then made a femoral neck osteotomy according to preoperative and intraoperative templating and confirmed the level of the osteotomy using fluoroscopic imaging. The femoral head was removed, passed off to the back table, and sized. The superior capsular flap was excised. Retractors were placed circumferentially exposing the acetabulum. We then circumferentially debrided the acetabulum free of labrum and osteophytes. The pulvinar was removed to fully visualize the cotyloid fossa. We then sequentially reamed to achieve peripheral fit and excellent bleeding subchondral bone. The socket was thoroughly irrigated. The acetabular component was impacted into the appropriate position using fluoroscopy to guide version, inclination, and depth of insertion taking care to have a comparable image of the AP pelvis to the standing image taken in the office. An excellent press-fit was achieved and final position was confirmed using fluoroscopy. The press fit was augmented with a bony cancellus dome screw. The liner was then impacted into the socket. Attention was then turned to the femur. The remnant dorsal lateral capsule was excised. The short external rotators were visible and protected. A bone hook was used to confirm appropriate translation of the trochanter away from the acetabulum. The leg was then extended and adducted and the bone hook was used to elevate the femur for broaching. A box osteotome and blunt tipped canal sound was then utilized to gain access to the femoral canal. We then sequentially broached the femur in appropriate anteversion until excellent torsional stability was achieved. The neck cut was brought flush to the trial broach with a calcar planar. A trial neck and head were then placed onto the broach and the hip was atraumatically reduced under direct visualization. External rotation to 90 was performed to assess stability. Fluoroscopy was brought in. An AP and lateral fluoroscopic image of the proximal femur was obtained to assess position and fill of the trial broach. An AP of the pelvis was then obtained and matched to the preoperative image taken. A bi-ischial bar was then placed and measurements were taken to assess changes in length and offset. The hip was then carefully dislocated, the proximal femur was exposed, and the trial implants were removed. The wound and proximal femur was thoroughly irrigated using sterile saline and pulsatile lavage. The final femoral implant was dispensed and gently tapped into place generating an excellent press-fit. The trunnion was cleansed and the final head was tapped into place to engage the Sullivan taper. The acetabulum was irrigated and visualized to be free of debris. The hip was carefully reduced. Stability was checked clinically with external rotation to 90 and there was no evidence of instability. Final fluoroscopic images were taken. The wound was then thoroughly irrigated and soaked with a dilute Betadine rinse for 3 minutes. 3 L of sterile saline was irrigated through the wound using pulsatile lavage. Local anesthetic cocktail was injected into the soft tissues around the surgical field. The wound was then closed in layers. Due to the patient's body habitus and abdominal pannus and incisional wound VAC was placed over the closed surgical incision. The tubing was hooked up to the canister and had excellent seal. The drapes were taken down and the patient was carefully transferred off of the [place] table. Following removal of the boots the leg lengths felt acceptable. The patient was then taken to recovery room having tolerated the procedure well. Arvin Branch PA-C was required as a skilled tax accounting assistant due to the complexity of surgery for patient positioning, draping, exposure, retraction, closure of wound and application of dressing. PLAN: The patient can weight-bear as tolerated on the operative extremity. 2 doses of postoperative antibiotics. DVT prophylaxis with aspirin 81 mg twice a day based on preoperative risk stratification. Physical therapy for gait training.
--- NOTE | 2024-11-24 09:38 | XR ---
EXAMINATION TYPE: XR Hip Limited RT, FL guidance operating room DATE OF EXAM: 11/24/2024 9:30 AM COMPARISON: CLINICAL INDICATION: Female, 74 years old with history of Rt Hip-Ant; PHH, pain FLUOROSCOPY: Serial intraoperative imaging during placement of right total hip arthroplasty. There is underlying m oderate bilateral hip OA RT anterior hip with Braaksma 49.2 fluoro time 2.2906 DAP 6 images saved LC After hardware, there is gross anatomic alignment and the prosthetic components appear well seated. 7 images are submitted. [facility], , 11/24/2024 9:35 AM
[2024-11-24] MEDS: LACTATED RINGERS 1,000 ML IV ONE (09:51)
[2024-11-24] MEDS: INSULIN LISPRO (HumaLOG) 100 UNIT/ML 10 mL VL SQ ONE (10:21)
[2024-11-24 11:39] LABS: Glucose,Whole Blood 244 mg/dL (70-110)
[2024-11-24] MEDS: LACTATED RINGERS 1,000 ML IV SCH (13:45)
[2024-11-24] MEDS: DEXAMETHASONE SOD PHOSPHATE 4 MG/ML 1 ML VIAL IV ONE (13:45)
[2024-11-24] MEDS: SODIUM CHLORIDE 0.9% 1,000 ML IV SCH (13:46)
[2024-11-24] MEDS: HYDROcodone/APAP 5-325MG 1 EACH TAB PO PRN (14:17)
[2024-11-24] MEDS: ceFAZolin 2 GM in DEXTROSE 5% IN WATER 50 ML IVPB SCH (17:08)
[2024-11-24] MEDS ORDERED: INSULIN PUMP BASAL RATES 1 EACH MISC MISCELLANE PRN (18:03)
[2024-11-24] MEDS ORDERED: INSPUCOR MISCELLANE PRN (18:03)
[2024-11-24] MEDS ORDERED: INSULIN LISPRO (HumaLOG) 100 UNIT/ML 10 mL VL SQ PRN (18:03)
[2024-11-24] MEDS ORDERED: ALBUTEROL NEBULIZED 2.5 MG/3 ML INHALATION PRN (19:16)
[2024-11-24] MEDS: ATORVASTATIN 40 MG TAB PO SCH (20:45)
[2024-11-24] MEDS: ASPIRIN 81 MG PO SCH (20:45)
[2024-11-24] MEDS: traZODone HCL 50 MG TAB PO SCH (20:45)
[2024-11-24] MEDS: buPROPion SR 100 MG TABLET.ER PO SCH (20:45)
[2024-11-24] MEDS: SENNOSIDES-DOCUSATE SODIUM 1 EACH TAB PO SCH (20:45)
[2024-11-24] MEDS: EZETIMIBE 10 MG TAB PO SCH (20:45)
[2024-11-24] MEDS: busPIRone HCl 5 MG TAB PO SCH (20:45)
[2024-11-24] MEDS: ARTIFICIAL TEARS-HYPROMELLOSE DROPS 15 ML BTL BOTH EYES SCH (21:54)
[2024-11-24 23:30] LABS: Glucose,Whole Blood 239 mg/dL (70-110)
[2024-11-24] MEDS: INSULIN PUMP MEAL BOLUS 1 UNIT MISC MISCELLANE SCH (23:31)
[2024-11-25 02:25] LABS: Glucose,Whole Blood 202 mg/dL (70-110)
[2024-11-25 06:36] LABS: Glucose,Whole Blood 161 mg/dL (70-110)
[2024-11-25] MEDS: LEVOTHYROXINE 125 MCG TAB PO SCH (06:36)
--- NOTE | 2024-11-25 08:11 | P.PN ---
Subjective Progress Note Date: 11/25/24 Patient is doing relatively well this morning. She states that she got up yesterday to use the bathroom and again this morning. She initially felt unsteady on her leg but it is improved. Her pain is well-controlled. She denies chest pain or shortness of breath. Objective - Vital Signs Vital signs: Vital Signs Temp 97.8 F 11/25/24 02:26 Pulse 63 11/25/24 02:26 Resp 18 11/25/24 02:26 BP 96/60 11/25/24 02:26 Pulse Ox 94 L 11/25/24 02:26 FiO2 Intake & Output 11/24/24 11/25/24 11/25/24 18:59 06:59 18:59 Intake Total 1350 Output Total 300 Balance 1050 Weight 88.9 kg Intake: IV 1350 Output: Estimated Blood Loss 300 Other: Voiding Method Toilet # Voids 1 1 - Exam The patient is resting comfortably in her bed. She is alert and able to answer questions. A focused exam of the right lower extremity was conducted. On inspection she has an intact incisional wound VAC over the right hip. There is good seal. There is mild bruising around the thigh and mild swelling. Her thigh and calf are soft. Femoral nerve function is intact. She is able to actively plantarflex and dorsiflex her ankle and her toes - Labs Labs: Abnormal Lab Results - Last 24 Hours (Table) 11/24/24 11/24/24 11/25/24 Range/Units 11:38 23:28 02:23 POC Glucose (mg/dL) 244 H 239 H 202 H (70-110) mg/dL 11/25/24 Range/Units 06:29 POC Glucose (mg/dL) 161 H (70-110) mg/dL Assessment and Plan Assessment: Postoperative day #1 status post right direct anterior total hip arthroplasty Plan: 1. Weightbearing as tolerated on the operative extremity. Up with assistance and a walker. 2. DVT prophylaxis -resume Plavix and aspirin 3. Physical therapy for gait training and mobilization 4. Leave surgical dressing in place. 5. Internal medicine for perioperative medical management 6. Disposition: We will see how the patient does today with physical therapy and pain control. We will plan to keep her an additional 24 hours and discharge home tomorrow pending evaluation by physical therapy
[2024-11-25] MEDS: FAMOTIDINE 20 MG TAB PO SCH (08:45)
[2024-11-25] MEDS: busPIRone HCl 10 MG TAB PO SCH (08:45)
[2024-11-25] MEDS: CLOPIDOGREL 75 MG TAB PO SCH (08:45)
[2024-11-25 10:02] LABS: Basophils # (A) 0.02 X 10*3/uL (0.00-0.10); Basophils % (A) 0.1 %; Eosinophils # (A) 0 X 10*3/uL (0.04-0.35); Eosinophils % (A) 0 %; HCT 31.4 % (37.2-46.3); Lymphocytes # (A) 0.58 X 10*3/uL (0.90-5.00); Lymphocytes % (A) 3.9 %; MCH 31.1 pg (27.0-32.0); MCHC 31.8 g/dL (32.0-37.0); MCV 97.5 FL (80.0-97.0); Mean Platelet Volume 11.2 FL (9.5-12.2); Monocytes # (A) 0.89 X 10*3/uL (0.20-1.00); Monocytes % (A) 5.9 %; NRBC Per 100 WBC 0 X 10*3/uL (0.00-0.01); Neutrophils # (A) 13.44 X 10*3/uL (1.80-7.70); Neutrophils % (A) 89.7 %; Platelet Count 161 X 10*3/uL (140-440); RBC 3.22 X 10*6/uL (4.10-5.20); RDW 13.2 % (11.5-14.5); WBC 14.99 X 10*3/uL (4.50-10.00)
[2024-11-25 11:04] LABS: Calcium 8.4 mg/dL (8.7-10.3); Carbon Dioxide 24.5 mmol/L (21.6-31.8); Chloride 104 mmol/L (96-109); Glucose 191 mg/dL (70-110); Potassium 4.7 mmol/L (3.5-5.5); Sodium 138 mmol/L (135-145)
[2024-11-25 11:42] LABS: Glucose,Whole Blood 241 mg/dL (70-110)
--- NOTE | 2024-11-25 15:03 | P.CONS ---
History of Present Illness - Reason for Consult Consult date: 11/25/24 Medical management - History of Present Illness History of present illness; patient 74-year-old lady with past medical history significant for diabetes mellitus, coronary artery disease who presented to the hospital for elective right total hip arthroplasty. Patient has been following up outpatient with orthopedics for right hip pain, patient was scheduled for right hip arthroplasty on 11/24. Postoperatively internal medicine team were consulted for medical management REVIEW OF SYSTEMS: CONSTITUTIONAL: No fever, no malaise, no fatigue. HEENT: No recent visual problems or hearing problems. Denied any sore throat. CARDIOVASCULAR: No chest pain, orthopnea, PND, no palpitations, no syncope. PULMONARY: No shortness of breath, no cough, no hemoptysis. GASTROINTESTINAL: No diarrhea, no nausea, no vomiting, no abdominal pain. NEUROLOGICAL: No headaches, no weakness, no numbness. HEMATOLOGICAL: Denies any bleeding or petechiae. GENITOURINARY: Denies any burning micturition, frequency, or urgency. MUSCULOSKELETAL/RHEUMATOLOGICAL: Right hip pain ENDOCRINE: Denies any polyuria or polydipsia. The rest of the 14-point review of systems is negative. PHYSICAL EXAMINATION: GENERAL: The patient is alert and oriented x3, not in any acute distress. Well developed, well nourished. HEENT: Pupils are round and equally reacting to light. EOMI. No scleral icterus. No conjunctival pallor. Normocephalic, atraumatic. No pharyngeal erythema. No thyromegaly. CARDIOVASCULAR: S1 and S2 present. No murmurs, rubs, or gallops. PULMONARY: Chest is clear to auscultation, no wheezing or crackles. ABDOMEN: Soft, nontender, nondistended, normoactive bowel sounds. No palpable organomegaly. MUSCULOSKELETAL: Right hip surgical incision seen EXTREMITIES: No cyanosis, clubbing, or pedal edema. NEUROLOGICAL: Gross neurological examination did not reveal any focal deficits. SKIN: No rashes. Assessment and plan Right hip osteoarthritis status post right total arthroplasty Diabetes mellitus History of coronary artery disease Hypothyroidism Monitor vital signs Monitor CBC Continue pain management per orthopedics Continue DVT prophylaxis per orthopedics Aggressive bowel regimen to prevent opioid-induced constipation Resume home meds Monitor blood sugar levels, continue insulin pump PT and OT consulted Labs and medication were reviewed.. Continue same treatment. Continue with symptomatic treatment. Resume home medication. Monitor labs and vitals. DVT and GI prophylaxis. Further recommendations as per clinical course of the patient Dictation was produced using [employer] dictation software. please excuse any grammatical, word or spelling errors. Past Medical History Past Medical History: Asthma, Blood Disorder, Coronary Artery Disease (CAD), Chest Pain / Angina, Heart Failure, Diabetes Mellitus, Eye Disorder, GERD/Reflux, Hyperlipidemia, Hypertension, Myocardial Infarction ([place]), Musculoskeletal Disorder, Osteoarthritis (OA), Renal Disease, Skin Disorder, Supraventricular Tachycardia (SVT), Thyroid Disorder Additional Past Medical History / Comment(s): USES INSULIN PUMP. VITILIGO-FACE. ANEMIA. DIZZINESS OFF & ON, HERNIATED DISCS L1,L2,L3,L4-L5, PINCHED SCIATIC NERVE. OSTEOPENIA. HIATAL HERNIA. ELEV LFS. OCC NT BUE. MILD Neuropathy. DIABETIC RETINOPATHY. TINNITUS. FX LT ANKLE, LUMBAR BACK PAIN Last Myocardial Infarction Date:: June 2009, 01/09/18 History of Any Multi-Drug Resistant Organisms: None Reported Past Surgical History: AICD, Cardiac Ablation, Cholecystectomy, Coronary Bypass/CABG, Heart Catheterization, Heart Catheterization With Stent, Hysterectomy, Orthopedic Surgery, Pacemaker, Tonsillectomy Additional Past Surgical History / Comment(s): 04/06/19 venogram and device interogation, TRIPLE BYPASS 2012. EXC. CATARACTS WITH LENS IMPLANTS. DEFIBRILLATOR ST.ESME 2010; DUAL AICD 04/14/18. CARDIAC Ablation 1994. LIVER BIOPSY (FATTY LIVER). Total 5 cardiac stents-per pt. Bilat Oopharectomy. Lt ankle plate. Past Anesthesia/Blood Transfusion Reactions: Postoperative Nausea & Vomiting (PONV) Additional Past Anesthesia/Blood Transfusion Reaction / Comm: DAUGHTER'S HAVE PONV. (HX nausea from iron infusions) Date of Last Stent Placement:: 06/27/2024 Type of Cardiac Device: Permanent Pacemaker, AICD Device Placement Date:: 2017 Past Psychological History: Anxiety, Depression Smoking Status: Never smoker Past Alcohol Use History: Rare Additional Past Alcohol Use History / Comment(s): Patient is a lifelong nonsmoker, no illicit drug use, She lives at home with her . Past Drug Use History: None Reported - Past Family History Mother Family Medical History: Congestive Heart Failure (CHF), Coronary Artery Disease (CAD), Diabetes Mellitus, Deep Vein Thrombosis (DVT) Additional Family Medical History / Comment(s): HEART DISEASE, Father Family Medical History: Congestive Heart Failure (CHF) (Father at age of 78 from congestive heart failure and he also was diabetic.), Diabetes Mellitus Additional Family Medical History / Comment(s): HEART DISEASE Sister(s) Family Medical History: Cancer Additional Family Medical History / Comment(s): 2 1/2 sisters with breast cancer, 1/2 sister-thyroid cancer, 1/2 SISTER - PANCREATIC CANCER. Brother(s) Family Medical History: Coronary Artery Disease (CAD) Daughter(s) Family Medical History: Supraventricular Tachycardia (SVT) Son(s) Family Medical History: No Reported History Medications and Allergies Home Medications Medication Instructions Recorded Confirmed Type Budesonide-Formot 160-4.5 Mcg 2 puff INHALATION BID PRN 12/27/15 11/17/24 H istory [Symbicort 160-4.5 Mcg Inhaler] Ezetimibe [Zetia] 10 mg PO HS 12/27/15 11/17/24 History Furosemide [Lasix] 20 mg PO MOWEFR 12/27/15 11/17/24 History fluvoxaMINE MALEATE [Luvox] 300 mg PO HS 12/27/15 11/17/24 History Albuterol Inhaler [Ventolin Hfa 2 puff INHALATION Q4-6H PRN 03/29/17 11/17/24 History Inhaler] Ergocalciferol [Vitamin D2 50,000 unit PO PRUITT 03/29/17 11/17/24 History (DRISDOL)] buPROPion SR [Wellbutrin SR] 175 mg PO BID 03/29/17 11/17/24 History Baclofen [Lioresal] 20 mg PO TID PRN 01/10/18 11/17/24 History Sacubitril/Valsartan [Entresto 24 1 tab PO BID 04/11/18 11/17/24 History mg-26 mg Tablet] Insulin Aspart (For Pump) [NovoLOG 0.01 unit SQ-PUMP CONTINUOUS 05/17/18 11/17/24 History (For Pump)] Rosuvastatin Calcium [Crestor] 20 mg PO HS 06/06/18 11/17/24 History traMADol HCl [Ultram] 50 mg PO QID PRN 07/18/18 11/17/24 History carvediloL [Coreg] 6.25 mg PO BID 04/04/19 11/17/24 History Acetaminophen Tab [Tylenol] 1,000 mg PO Q6HR PRN tab 05/03/19 11/17/24 Rx Levothyroxine Sodium [Synthroid] 112 mcg PO QAM 07/16/22 11/17/24 History Dapagliflozin Propanediol [Farxiga] 10 mg PO QAM 10/19/23 11/17/24 History Gabapentin [Neurontin] 1 capsule PO TID 10/19/23 11/17/24 History Nitroglycerin Sl Tabs [Nitrostat] 0.4 mg SUBLINGUAL Q5M PRN 10/19/23 11/17/24 History busPIRone HCl [Buspar] 30 mg PO QAM 10/19/23 11/17/24 History traZODone HCL [Desyrel] 50 mg PO HS 10/19/23 11/17/24 History Semaglutide [Ozempic] 1 mg SQ MO 10/28/23 11/17/24 History busPIRone HCL 15 mg PO HS 06/26/24 11/17/24 History Aspirin [Adult Low Dose Aspirin EC] 81 mg PO BID 11/17/24 11/17/24 History Clopidogrel [Plavix] 75 mg PO DAILY 11/17/24 11/17/24 History Propylene Glycol [Systane Complete] 1 drop BOTH EYES BID 11/17/24 11/17/24 History Doxycycline Monohydrate 100 mg PO BID-W/MEALS 14 Days #28 11/24/24 Rx cap Allergies Allergy/AdvReac Type Severity Reaction Status Date / Time adhesive tape Allergy Rash/Hives Verified 11/24/24 05:59 metronidazole [From Flagyl] Allergy Rash/Hives Verified 11/24/24 05:59 Nitroimidazoles Allergy Rash/Hives Verified 11/24/24 05:59 Physical Exam Vitals: Vital Signs Temp Pulse Resp BP Pulse Ox 11/25/24 07:28 98.1 F 66 17 98/46 98 11/25/24 02:26 97.8 F 63 18 96/60 94 L 11/24/24 19:52 97.7 F 67 17 97/60 93 L 11/24/24 15:00 97.5 F L 72 18 102/64 95 Intake and Output 11/24/24 11/25/24 11/25/24 22:59 06:59 14:59 Other: Voiding Method Toilet # Voids 1 1 1 Results CBC & Chem 7: 11/25/24 03:50 11/25/24 03:50 Labs: Abnormal Lab Results - Last 24 Hours (Table) 11/24/24 11/25/24 11/25/24 Range/Units 23:28 02:23 03:50 WBC (4.50-10.00) X 10*3/uL RBC (4.10-5.20) X 10*6/uL Hgb (12.0-15.0) g/dL Hct (37.2-46.3) % MCV (80.0-97.0) FL MCHC (32.0-37.0) g/dL Immature Gran # (0.00-0.04) X 10*3/uL Neutrophils # (1.80-7.70) X 10*3/uL Lymphocytes # (0.90-5.00) X 10*3/uL Eosinophils # (0.04-0.35) X 10*3/uL Est GFR (CKD-EPI) 37 L (>=60) Glucose 191 H (70-110) mg/dL POC Glucose (mg/dL) 239 H 202 H (70-110) mg/dL Calcium 8.4 L (8.7-10.3) mg/dL 11/25/24 11/25/24 11/25/24 Range/Units 03:50 06:29 11:41 WBC 14.99 H (4.50-10.00) X 10*3/uL RBC 3.22 L (4.10-5.20) X 10*6/uL Hgb 10.0 L (12.0-15.0) g/dL Hct 31.4 L (37.2-46.3) % MCV 97.5 H (80.0-97.0) FL MCHC 31.8 L (32.0-37.0) g/dL Immature Gran # 0.06 H (0.00-0.04) X 10*3/uL Neutrophils # 13.44 H (1.80-7.70) X 10*3/uL Lymphocytes # 0.58 L (0.90-5.00) X 10*3/uL Eosinophils # 0 L (0.04-0.35) X 10*3/uL Est GFR (CKD-EPI) (>=60) Glucose (70-110) mg/dL POC Glucose (mg/dL) 161 H 241 H (70-110) mg/dL Calcium (8.7-10.3) mg/dL
[2024-11-25 17:03] LABS: Glucose,Whole Blood 141 mg/dL (70-110)
[2024-11-25 21:08] LABS: Glucose,Whole Blood 122 mg/dL (70-110)
[2024-11-25] MEDS: HYDROmorphone 0.5 MG/0.5 ML SYRINGE IVP PRN (21:50)
[2024-11-25] MEDS ORDERED: TEMAZEPAM 15 MG CAP PO PRN (22:00)
[2024-11-26 00:09] LABS: Glucose,Whole Blood 96 mg/dL (70-110)
[2024-11-26 02:03] LABS: Glucose,Whole Blood 86 mg/dL (70-110)
[2024-11-26 06:34] LABS: Glucose,Whole Blood 164 mg/dL (70-110)
--- NOTE | 2024-11-26 09:16 | P.PN ---
Subjective Patient is more painful this morning. She had problems using a walker yesterday due to pain in her shoulders. Objective - Vital Signs Vital signs: Vital Signs Temp 98.3 F 11/26/24 07:29 Pulse 81 11/26/24 07:29 Resp 18 11/26/24 07:29 BP 104/61 11/26/24 07:29 Pulse Ox 96 11/26/24 07:29 FiO2 Intake & Output 11/25/24 11/26/24 11/26/24 18:59 06:59 18:59 Other: Voiding Method Toilet # Voids 0 2 - Exam Patient is sitting up in a chair. She is mild distress secondary to pain. On inspection of the right leg there is an intact incisional wound VAC with no drainage. The wound VAC has good seal. There is mild bruising in the leg. Femoral nerve function is intact. She is able to actively plantarflex and dorsiflex her ankle and her toes. - Labs CBC & Chem 7: 11/25/24 03:50 11/25/24 03:50 Labs: Abnormal Lab Results - Last 24 Hours (Table) 11/25/24 11/25/24 11/25/24 Range/Units 03:50 03:50 11:41 WBC 14.99 H (4.50-10.00) X 10*3/uL RBC 3.22 L (4.10-5.20) X 10*6/uL Hgb 10.0 L (12.0-15.0) g/dL Hct 31.4 L (37.2-46.3) % MCV 97.5 H (80.0-97.0) FL MCHC 31.8 L (32.0-37.0) g/dL Immature Gran # 0.06 H (0.00-0.04) X 10*3/uL Neutrophils # 13.44 H (1.80-7.70) X 10*3/uL Lymphocytes # 0.58 L (0.90-5.00) X 10*3/uL Eosinophils # 0 L (0.04-0.35) X 10*3/uL Est GFR (CKD-EPI) 37 L (>=60) Glucose 191 H (70-110) mg/dL POC Glucose (mg/dL) 241 H (70-110) mg/dL Calcium 8.4 L (8.7-10.3) mg/dL 11/25/24 11/25/24 11/26/24 Range/Units 17:01 21:07 06:32 WBC (4.50-10.00) X 10*3/uL RBC (4.10-5.20) X 10*6/uL Hgb (12.0-15.0) g/dL Hct (37.2-46.3) % MCV (80.0-97.0) FL MCHC (32.0-37.0) g/dL Immature Gran # (0.00-0.04) X 10*3/uL Neutrophils # (1.80-7.70) X 10*3/uL Lymphocytes # (0.90-5.00) X 10*3/uL Eosinophils # (0.04-0.35) X 10*3/uL Est GFR (CKD-EPI) (>=60) Glucose (70-110) mg/dL POC Glucose (mg/dL) 141 H 122 H 164 H (70-110) mg/dL Calcium (8.7-10.3) mg/dL Assessment and Plan Assessment: Postoperative day #2 status post right direct anterior total hip arthroplasty Plan: Continue treatment as outlined yesterday. Due to the patient's pain, multiple medical issues, and body habitus I would like to keep the patient an additional 24 hours. We will have physical therapy reassess her tomorrow to evaluate for possible discharge to rehab. Appreciate internal medicine's assistance with perioperative medical management Time with Patient: Less than 30
[2024-11-26 11:22] LABS: Glucose,Whole Blood 205 mg/dL (70-110)
--- NOTE | 2024-11-26 13:17 | P.PN ---
Subjective Progress Note Date: 11/26/24 74-year-old lady with past medical history significant for diabetes mellitus, coronary artery disease who presented to the hospital for elective right total hip arthroplasty. Patient has been following up outpatient with orthopedics for right hip pain, patient was scheduled for right hip arthroplasty on 11/24. Postoperatively internal medicine team were consulted for medical management 11/26. Patient seen examined. States still having right hip pain. Pain medication were adjusted by orthopedic. Denies any chest pain or shortness of breath REVIEW OF SYSTEMS: CONSTITUTIONAL: No fever, no malaise,. CARDIOVASCULAR: No chest pain, no palpitations, no syncope. PULMONARY: No shortness of breath, no cough, GASTROINTESTINAL: No diarrhea, no nausea, no vomiting, no abdominal pain. NEUROLOGICAL: No headaches, no weakness, PHYSICAL EXAMINATION: GENERAL: The patient is alert and oriented x3, not in any acute distress. Well developed, well nourished. HEENT: Pupils are round and equally reacting to light. EOMI. No scleral icterus. No conjunctival pallor. Normocephalic, atraumatic. No pharyngeal erythema. No thyromegaly. CARDIOVASCULAR: S1 and S2 present. No murmurs, rubs, or gallops. PULMONARY: Chest is clear to auscultation, no wheezing or crackles. ABDOMEN: Soft, nontender, nondistended, normoactive bowel sounds. No palpable organomegaly. MUSCULOSKELETAL: Right hip surgical incision seen EXTREMITIES: No cyanosis, clubbing, or pedal edema. NEUROLOGICAL: Gross neurological examination did not reveal any focal deficits. SKIN: No rashes. Assessment and plan Right hip osteoarthritis status post right total arthroplasty Diabetes mellitus History of coronary artery disease Hypothyroidism Monitor vital signs Monitor CBC Continue pain management per orthopedics Continue DVT prophylaxis per orthopedics Aggressive bowel regimen to prevent opioid-induced constipation Continue home meds Monitor blood sugar levels, continue insulin pump PT and OT consulted Labs and medication were reviewed.. Continue same treatment. Continue with symptomatic treatment. Resume home medication. Monitor labs and vitals. DVT and GI prophylaxis. Further recommendations as per clinical course of the patient Dictation was produced using [employer] dictation software. please excuse any grammatical, word or spelling errors. Objective - Vital Signs Vital signs: Vital Signs Temp 98.3 F 11/26/24 07:29 Pulse 81 11/26/24 07:29 Resp 18 11/26/24 07:29 BP 104/61 11/26/24 07:29 Pulse Ox 96 11/26/24 07:29 FiO2 Intake & Output 11/25/24 11/26/24 11/26/24 18:59 06:59 18:59 Other: Voiding Method Toilet # Voids 0 2 - Labs CBC & Chem 7: 11/25/24 03:50 11/25/24 03:50 Labs: Abnormal Lab Results - Last 24 Hours (Table) 11/25/24 11/25/24 11/26/24 Range/Units 17:01 21:07 06:32 POC Glucose (mg/dL) 141 H 122 H 164 H (70-110) mg/dL 11/26/24 Range/Units 11:21 POC Glucose (mg/dL) 205 H (70-110) mg/dL
[2024-11-26] MEDS: HYDROcodone/APAP 10-325MG 1 EACH TAB PO PRN (13:35)
[2024-11-26 16:31] LABS: Glucose,Whole Blood 137 mg/dL (70-110)
[2024-11-26 20:19] LABS: Glucose,Whole Blood 296 mg/dL (70-110)
[2024-11-26] MEDS: SACUBITRIL/VALSARTAN 24 MG-26 MG TABLET PO SCH (21:37)
[2024-11-26] MEDS: DOXYCYCLINE 100 MG TABLET PO SCH (21:43)
[2024-11-26] MEDS: BENZOCAINE/MENTHOL LOZENG 1 EACH LOZENGE MUCOUS MEM PRN (21:46)
[2024-11-27 01:22] LABS: Glucose,Whole Blood 144 mg/dL (70-110)
[2024-11-27] MEDS: hydrOXYzine pamoate 25 MG CAP PO PRN (06:21)
[2024-11-27 06:26] LABS: Glucose,Whole Blood 130 mg/dL (70-110)
--- NOTE | 2024-11-27 07:45 | P.PN ---
Subjective Patient is somewhat better but is still having pain in her right thigh. She also has burning in her right foot. Objective - Vital Signs Vital signs: Vital Signs Temp 98.1 F 11/27/24 01:16 Pulse 97 11/27/24 01:16 Resp 18 11/27/24 01:16 BP 123/71 11/27/24 01:16 Pulse Ox 95 11/27/24 01:16 FiO2 Intake & Output 11/26/24 11/27/24 11/27/24 18:59 06:59 18:59 Other: Voiding Method Toilet # Voids 3 1 - Exam Patient is sitting up in a chair. She is alert and able to answer questions. The incisional wound VAC over her hip is intact. There is mild swelling throughout the hip. There is no drainage around the wound VAC. Femoral nerve function is intact. Her thigh and calf are soft. She is able to actively plantarflex and dorsiflex her ankle and her toes. The dorsum of her foot is nonswollen with no overlying skin changes. She has no tenderness or swelling in the foot or ankle. - Labs CBC & Chem 7: 11/25/24 03:50 11/25/24 03:50 Labs: Abnormal Lab Results - Last 24 Hours (Table) 11/26/24 11/26/24 11/26/24 Range/Units 11:21 16:29 20:18 POC Glucose (mg/dL) 205 H 137 H 296 H (70-110) mg/dL 11/27/24 11/27/24 Range/Units 01:20 06:20 POC Glucose (mg/dL) 144 H 130 H (70-110) mg/dL Assessment and Plan Assessment: Postoperative day #3 status post right total hip replacement Multiple medical issues Plan: Continue treatment as outlined previously. The patient is going to be reassessed by physical therapy this morning for possible discharge to rehab.
[2024-11-27 09:31] LABS: Basophils # (A) 0.01 X 10*3/uL (0.00-0.10); Basophils % (A) 0.1 %; Eosinophils # (A) 0.44 X 10*3/uL (0.04-0.35); Eosinophils % (A) 5.6 %; HCT 28.8 % (37.2-46.3); HGB 8.9 g/dL (12.0-15.0); Lymphocytes # (A) 0.78 X 10*3/uL (0.90-5.00); Lymphocytes % (A) 9.9 %; MCH 30.4 pg (27.0-32.0); MCHC 30.9 g/dL (32.0-37.0); MCV 98.3 FL (80.0-97.0); Mean Platelet Volume 11.7 FL (9.5-12.2); Monocytes # (A) 0.59 X 10*3/uL (0.20-1.00); Monocytes % (A) 7.5 %; NRBC Per 100 WBC 0 X 10*3/uL (0.00-0.01); Neutrophils # (A) 6.03 X 10*3/uL (1.80-7.70); Neutrophils % (A) 76.1 %; Platelet Count 128 X 10*3/uL (140-440); RBC 2.93 X 10*6/uL (4.10-5.20); RDW 13.8 % (11.5-14.5); WBC 7.91 X 10*3/uL (4.50-10.00)
[2024-11-27 11:33] LABS: Glucose,Whole Blood 169 mg/dL (70-110)
--- NOTE | 2024-11-27 14:10 | P.PN ---
Subjective Progress Note Date: 11/27/24 74-year-old lady with past medical history significant for diabetes mellitus, coronary artery disease who presented to the hospital for elective right total hip arthroplasty. Patient has been following up outpatient with orthopedics for right hip pain, patient was scheduled for right hip arthroplasty on 11/24. Postoperatively internal medicine team were consulted for medical management 11/26. Patient seen examined. States still having right hip pain. Pain medication were adjusted by orthopedic. Denies any chest pain or shortness of breath 11/27. Patient seen and examined. No acute issues overnight. Pain is better controlled. Possible discharge today REVIEW OF SYSTEMS: CONSTITUTIONAL: No fever, no malaise,. CARDIOVASCULAR: No chest pain, no palpitations, no syncope. PULMONARY: No shortness of breath, no cough, GASTROINTESTINAL: No diarrhea, no nausea, no vomiting, no abdominal pain. NEUROLOGICAL: No headaches, no weakness, PHYSICAL EXAMINATION: GENERAL: The patient is alert and oriented x3, not in any acute distress. Well developed, well nourished. HEENT: Pupils are round and equally reacting to light. EOMI. No scleral icterus. No conjunctival pallor. Normocephalic, atraumatic. No pharyngeal erythema. No thyromegaly. CARDIOVASCULAR: S1 and S2 present. No murmurs, rubs, or gallops. PULMONARY: Chest is clear to auscultation, no wheezing or crackles. ABDOMEN: Soft, nontender, nondistended, normoactive bowel sounds. No palpable organomegaly. MUSCULOSKELETAL: Right hip surgical incision seen EXTREMITIES: No cyanosis, clubbing, or pedal edema. NEUROLOGICAL: Gross neurological examination did not reveal any focal deficits. SKIN: No rashes. Assessment and plan Right hip osteoarthritis status post right total arthroplasty Diabetes mellitus History of coronary artery disease Hypothyroidism Monitor vital signs Monitor CBC Continue pain management per orthopedics Continue DVT prophylaxis per orthopedics Aggressive bowel regimen to prevent opioid-induced constipation Continue home meds Monitor blood sugar levels, continue insulin pump PT and OT consulted Labs and medication were reviewed.. Continue same treatment. Continue with symptomatic treatment. Resume home medication. Monitor labs and vitals. DVT and GI prophylaxis. Further recommendations as per clinical course of the patient Dictation was produced using [employer] dictation software. please excuse any grammatical, word or spelling errors. Objective - Vital Signs Vital signs: Vital Signs Temp 98.1 F 11/27/24 07:33 Pulse 85 11/27/24 07:33 Resp 18 11/27/24 07:33 BP 117/69 11/27/24 07:33 Pulse Ox 100 11/27/24 07:33 FiO2 Intake & Output 11/26/24 11/27/24 11/27/24 18:59 06:59 18:59 Intake Total 240 Balance 240 Intake: Oral 240 Other: Voiding Method Toilet # Voids 3 1 - Labs CBC & Chem 7: 11/27/24 02:44 11/25/24 03:50 Labs: Abnormal Lab Results - Last 24 Hours (Table) 11/26/24 11/26/24 11/26/24 Range/Units 11:21 16:29 20:18 RBC (4.10-5.20) X 10*6/uL Hgb (12.0-15.0) g/dL Hct (37.2-46.3) % MCV (80.0-97.0) FL MCHC (32.0-37.0) g/dL Plt Count (140-440) X 10*3/uL Immature Gran # (0.00-0.04) X 10*3/uL Lymphocytes # (0.90-5.00) X 10*3/uL Eosinophils # (0.04-0.35) X 10*3/uL POC Glucose (mg/dL) 205 H 137 H 296 H (70-110) mg/dL 11/27/24 11/27/24 11/27/24 Range/Units 01:20 02:44 06:20 RBC 2.93 L (4.10-5.20) X 10*6/uL Hgb 8.9 L (12.0-15.0) g/dL Hct 28.8 L (37.2-46.3) % MCV 98.3 H (80.0-97.0) FL MCHC 30.9 L (32.0-37.0) g/dL Plt Count 128 L (140-440) X 10*3/uL Immature Gran # 0.06 H (0.00-0.04) X 10*3/uL Lymphocytes # 0.78 L (0.90-5.00) X 10*3/uL Eosinophils # 0.44 H (0.04-0.35) X 10*3/uL POC Glucose (mg/dL) 144 H 130 H (70-110) mg/dL
[2024-11-27 14:15] VITALS: BP 129/68; PULSE 90; RESP 17; TEMP 98.4
--- NOTE | 2024-11-27 14:15 | P.DS ---
Providers Attending physician: Fred Garza Consults: 11/24/24 09:26 Consult Physician Routine Consulting Provider: Sofy Ramires Consult Reason/Comments: post op medical management Do you want consulting provider notified?: Yes Primary care physician: [facility] Course: This is a 74-year-old patient, with past medical history of severe right hip osteoarthritis, who failed nonsurgical conservative management. On 11/24/2024 the patient presented to the [facility] pre-op department for scheduled direct anterior total hip arthroplasty with Dr. Garza. The patient tolerated the procedure well. The patient was transferred to the orthopedic floor. The patient had no acute events over night. The patient's pain has been well- controlled. Patient was examined at bedside. Patient is resting comfortably in bed. No apparent distress. They are awake, alert and able to answer questions. Inspection: The surgical dressing is intact, there is no drainage or strikethrough. The skin surrounding the dressing is free of erythema. There is mild swelling in the operative thigh. Palpation: The operative calf is soft to compression. No calf tenderness. Neurovascular: Operative femoral nerve function is intact. The patient is able to actively plantarflex and dorsiflex their operative ankle and toes. Operative extremity sensation is intact to light touch throughout Their operative foot appears well perfused, palpable dorsalis pedis pulse. Patient worked with physical therapy and it was determined they would need transferred to rehab at time of discharge. Plan follow up in two weeks in our office. Please see med rec for a list of accurate medications. Assessment: Postoperative day #3 status post right total hip replacement for right hip osteoarthritis Multiple medical issues Plan - Discharge Summary Discharge Rx Participant: No New Discharge Prescriptions: New Doxycycline Monohydrate 100 mg PO BID-W/MEALS 14 Days #28 cap Continue Budesonide-Formot 160-4.5 Mcg [Symbicort 160-4.5 Mcg Inhaler] 2 puff INHALATION BID PRN PRN Reason: Shortness Of Breath fluvoxaMINE MALEATE [Luvox] 300 mg PO HS Furosemide [Lasix] 20 mg PO MOWEFR Ezetimibe [Zetia] 10 mg PO HS Albuterol Inhaler [Ventolin Hfa Inhaler] 2 puff INHALATION Q4-6H PRN PRN Reason: sob buPROPion SR [Wellbutrin SR] 175 mg PO BID Ergocalciferol [Vitamin D2 (DRISDOL)] 50,000 unit PO PRUITT Baclofen [Lioresal] 20 mg PO TID PRN PRN Reason: Pain Sacubitril/Valsartan [Entresto 24 mg-26 mg Tablet] 1 tab PO BID Insulin Aspart (For Pump) [NovoLOG (For Pump)] 0.01 unit SQ-PUMP CONTINUOUS Rosuvastatin Calcium [Crestor] 20 mg PO HS carvediloL [Coreg] 6.25 mg PO BID Acetaminophen Tab [Tylenol] 1,000 mg PO Q6HR PRN tab PRN Reason: Fever and/ or Mild Pain traZODone HCL [Desyrel] 50 mg PO HS Gabapentin [Neurontin] 1 capsule PO TID Semaglutide [Ozempic] 1 mg SQ MO Aspirin [Adult Low Dose Aspirin EC] 81 mg PO BID Clopidogrel [Plavix] 75 mg PO DAILY Levothyroxine Sodium [Synthroid] 112 mcg PO QAM busPIRone HCl [Buspar] 30 mg PO QAM Dapagliflozin Propanediol [Farxiga] 10 mg PO QAM Nitroglycerin Sl Tabs [Nitrostat] 0.4 mg SUBLINGUAL Q5M PRN PRN Reason: Chest Pain busPIRone HCL 15 mg PO HS No Action traMADol HCl [Ultram] 50 mg PO QID PRN PRN Reason: Pain Propylene Glycol [Systane Complete] 1 drop BOTH EYES BID Discharge Medication List Budesonide-Formot 160-4.5 Mcg [Symbicort 160-4.5 Mcg Inhaler] 2 puff INHALATION BID PRN 12/27/15 [History] Ezetimibe [Zetia] 10 mg PO HS 12/27/15 [History] Furosemide [Lasix] 20 mg PO MOWEFR 12/27/15 [History] fluvoxaMINE MALEATE [Luvox] 300 mg PO HS 12/27/15 [History] Albuterol Inhaler [Ventolin Hfa Inhaler] 2 puff INHALATION Q4-6H PRN 03/29/17 [History] Ergocalciferol [Vitamin D2 (DRISDOL)] 50,000 unit PO PRUITT 03/29/17 [History] buPROPion SR [Wellbutrin SR] 175 mg PO BID 03/29/17 [History] Baclofen [Lioresal] 20 mg PO TID PRN 01/10/18 [History] Sacubitril/Valsartan [Entresto 24 mg-26 mg Tablet] 1 tab PO BID 04/11/18 [History] Insulin Aspart (For Pump) [NovoLOG (For Pump)] 0.01 unit SQ-PUMP CONTINUOUS 05/17/18 [History] Rosuvastatin Calcium [Crestor] 20 mg PO HS 06/06/18 [History] traMADol HCl [Ultram] 50 mg PO QID PRN 07/18/18 [History] carvediloL [Coreg] 6.25 mg PO BID 04/04/19 [History] Acetaminophen Tab [Tylenol] 1,000 mg PO Q6HR PRN tab 05/03/19 [Rx] Levothyroxine Sodium [Synthroid] 112 mcg PO QAM 07/16/22 [History] Dapagliflozin Propanediol [Farxiga] 10 mg PO QAM 10/19/23 [History] Gabapentin [Neurontin] 1 capsule PO TID 10/19/23 [History] Nitroglycerin Sl Tabs [Nitrostat] 0.4 mg SUBLINGUAL Q5M PRN 10/19/23 [History] busPIRone HCl [Buspar] 30 mg PO QAM 10/19/23 [History] traZODone HCL [Desyrel] 50 mg PO HS 10/19/23 [History] Semaglutide [Ozempic] 1 mg SQ MO 10/28/23 [History] busPIRone HCL 15 mg PO HS 06/26/24 [History] Aspirin [Adult Low Dose Aspirin EC] 81 mg PO BID 11/17/24 [History] Clopidogrel [Plavix] 75 mg PO DAILY 11/17/24 [History] Propylene Glycol [Systane Complete] 1 drop BOTH EYES BID 11/17/24 [History] Doxycycline Monohydrate 100 mg PO BID-W/MEALS 14 Days #28 cap 11/24/24 [Rx] Follow up Appointment(s)/Referral(s): [facility] [NON-STAFF] - As Needed Fred Garza MD [Medical Doctor] - 2 Weeks Activity/Diet/Wound Care/Special Instructions: 1. Weight-bear as tolerated on your operative extremity unless instructed otherwise. Use a walker or other assistive device to ambulate. 2. Leave surgical dressing in place. If your dressing becomes saturated with blood, there is drainage, or the dressing becomes loose please contact the office. 3. It is okay to shower with your surgical dressing, but do not submerge in water (no hot tubs, bath's, swimming etc.) 4. Take your blood clot prevention medication as prescribed (aspirin, Eliquis, Xarelto, and Plavix are commonly prescribed medications for blood clot prevention) 5. While taking [place] or Percocet for pain take a stool softener (Ex: Colace) and drink lots of water. 6. Keep all follow-up appointments as scheduled. You will usually be seen in 1-2 weeks following surgery. 7. Please contact the office with any questions or concerns [phone] Discharge Disposition: TRANSFER TO SNF/ECF
== END 2024-11-27 16:37 ==
LOC: OR 05:35 → 4SSUR 13:38 → OR 11-27 16:37
PROVIDERS: ATTEND Orthopaedic Surgery
DX: M16.11 Unilateral primary osteoarthritis, right hip (principal); K76.0 Fatty (change of) liver, not elsewhere classified; I25.10 Atherosclerotic heart disease of native coronary artery without angina pectoris; I25.2 Old myocardial infarction; I11.0 Hypertensive heart disease with heart failure; I50.9 Heart failure, unspecified; J45.909 Unspecified asthma, uncomplicated; E11.319 Type 2 diabetes mellitus with unspecified diabetic retinopathy without macular edema; E11.40 Type 2 diabetes mellitus with diabetic neuropathy, unspecified; E03.9 Hypothyroidism, unspecified; E78.5 Hyperlipidemia, unspecified; F32.A Depression, unspecified; F41.9 Anxiety disorder, unspecified; L80 Vitiligo; Z95.5 Presence of coronary angioplasty implant and graft; Z96.41 Presence of insulin pump (external) (internal); Z95.810 Presence of automatic (implantable) cardiac defibrillator; Z95.1 Presence of aortocoronary bypass graft; Z96.641 Presence of right artificial hip joint; Z83.3 Family history of diabetes mellitus; Z82.49 Family history of ischemic heart disease and other diseases of the circulatory system; Z80.3 Family history of malignant neoplasm of breast; Z90.49 Acquired absence of other specified parts of digestive tract; Z90.89 Acquired absence of other organs; Z88.1 Allergy status to other antibiotic agents; Z79.51 Long term (current) use of inhaled steroids; Z79.84 Long term (current) use of oral hypoglycemic drugs; Z79.02 Long term (current) use of antithrombotics/antiplatelets; Z79.82 Long term (current) use of aspirin; Z79.4 Long term (current) use of insulin; Z79.890 Hormone replacement therapy; Z79.899 Other long term (current) drug therapy
CPT/HCPCS: 97530; 97162; 64473; 80048; 85025; 73501; 27130; C1776; J2250; J3370; S0106 ×2; J0690; J2405; J3010; J1885; J1171; J1308

== ENCOUNTER 2024-12-18 16:59 | Inpatient (IN) | payer MEDICARE ==
[2024-12-18] MEDS: SODIUM CHLORIDE 0.9% 1,000 ML IV ONE (17:25)
[2024-12-18 17:29] LABS: Basophils # (A) 0.03 10*3/uL (0.00-0.10); Basophils % (A) 0.2 %; Eosinophils # (A) 0.65 10*3/uL (0.04-0.35); Eosinophils % (A) 4.4 %; HCT 29.1 % (37.2-46.3); HGB 9.5 g/dL (12.0-15.0); Lymphocytes # (A) 0.77 10*3/uL (0.90-5.00); Lymphocytes % (A) 5.2 %; MCH 30.4 pg (27.0-32.0); MCHC 32.6 g/dL (32.0-37.0); MCV 93.3 fL (80.0-97.0); Monocytes # (A) 1.18 10*3/uL (0.20-1.00); Monocytes % (A) 8.0 %; Neutrophils # (A) 12.03 10*3/uL (1.80-7.70); Neutrophils % (A) 81.7 %; Platelet Count 374 10*3/uL (140-440); RBC 3.12 10*6/uL (4.10-5.20); RDW 13.6 % (11.5-14.5); WBC 14.73 10*3/uL (4.50-10.00)
--- NOTE | 2024-12-18 17:33 | ED ---
Weakness HPI - General Chief complaint: Fall Stated complaint: Weakness Time Seen by Provider: 12/18/24 17:03 Source: patient, EMS, RN notes reviewed, old records reviewed Mode of arrival: EMS Limitations: no limitations - History of Present Illness Initial comments: This is a 74-year-old female who does have some altered mental status but coming in for a fall fall with weakness today. Caregiver called EMS and patient's brought to the ER found to be hypoxic. Patient herself has complaints of right hip pain. Patient complains of weakness. He had a recent hip replacement MD Complaint: generalized weakness, lack of energy, difficulty walking -: days(s) Location: generalized Severity: moderate Severity scale (1-10): 7 Quality: tingling Consistency: constant Improves with: none Context: recent illness, recent surgery Associated Symptoms: denies other symptoms, confusion, shortness of breath - Related Data Home Medications Medication Instructions Recorded Confirmed Budesonide-Formot 160-4.5 Mcg 2 puff INHALATION BID PRN 12/27/15 12/18/24 [Symbicort 160-4.5 Mcg Inhaler] Ezetimibe [Zetia] 10 mg PO HS 12/27/15 12/18/24 Furosemide [Lasix] 20 mg PO MOWEFR 12/27/15 12/18/24 fluvoxaMINE MALEATE [Luvox] 300 mg PO HS 12/27/15 12/18/24 Albuterol Inhaler [Ventolin Hfa 2 puff INHALATION RT-Q4H PRN 03/29/17 12/18/24 Inhaler] buPROPion SR [Wellbutrin SR] 175 mg PO BID 03/29/17 12/18/24 Baclofen [Lioresal] 20 mg PO TID PRN 01/10/18 12/18/24 Sacubitril/Valsartan [Entresto 24 1 tab PO BID 04/11/18 12/18/24 mg-26 mg Tablet] Insulin Aspart (For Pump) [NovoLOG 0.01 unit SQ-PUMP CONTINUOUS 05/17/18 12/18/24 (For Pump)] Rosuvastatin Calcium [Crestor] 20 mg PO HS 06/06/18 12/18/24 Levothyroxine Sodium [Synthroid] 112 mcg PO DAILY 07/16/22 12/18/24 Dapagliflozin Propanediol [Farxiga] 10 mg PO DAILY 10/19/23 12/18/24 Gabapentin [Neurontin] 300 mg PO TID 10/19/23 12/18/24 Nitroglycerin Sl Tabs [Nitrostat] 0.4 mg SL Q5M PRN 10/19/23 12/18/24 busPIRone HCl [Buspar] 30 mg PO DAILY 10/19/23 12/18/24 traZODone HCL [Desyrel] 50 mg PO HS 10/19/23 12/18/24 busPIRone HCL 15 mg PO HS 06/26/24 12/18/24 Aspirin [Adult Low Dose Aspirin EC] 81 mg PO BID 11/17/24 12/18/24 Clopidogrel [Plavix] 75 mg PO DAILY 11/17/24 12/18/24 Propylene Glycol [Systane Complete] 1 drop BOTH EYES BID 11/17/24 12/18/24 Ergocalciferol [Vitamin D2 (1250 1,250 mcg PO PRUITT 12/18/24 12/18/24 Mcg = 94585 Iu)] HYDROcodone/APAP 5-325MG [[place] 1 tab PO Q6HR PRN 12/18/24 12/18/24 5-325] Ondansetron Odt [Zofran Odt] 4 mg PO TID PRN 12/18/24 12/18/24 carvediloL [Coreg] 6.25 mg PO BID 12/18/24 12/18/24 Previous Rx's Medication Instructions Recorded Acetaminophen Tab [Tylenol] 1,000 mg PO Q6HR PRN tab 05/03/19 Doxycycline Monohydrate 100 mg PO BID-W/MEALS 14 Days #28 11/24/24 cap Allergies Allergy/AdvReac Type Severity Reaction Status Date / Time adhesive tape Allergy Rash/Hives Verified 12/18/24 20:59 metronidazole [From Flagyl] Allergy Rash/Hives Verified 12/18/24 20:59 Nitroimidazoles Allergy Rash/Hives Verified 12/18/24 20:59 Review of Systems ROS Statement: Those systems with pertinent positive or pertinent negative responses have been documented in the HPI. ROS Other: All systems not noted in ROS Statement are negative. Past Medical History Past Medical History: Asthma, Blood Disorder, Coronary Artery Disease (CAD), Ch est Pain / Angina, Heart Failure, Diabetes Mellitus, Eye Disorder, GERD/Reflux, Hyperlipidemia, Hypertension, Myocardial Infarction (OK), Musculoskeletal Disorder, Osteoarthritis (OA), Renal Disease, Skin Disorder, Supraventricular Tachycardia (SVT), Thyroid Disorder Additional Past Medical History / Comment(s): USES INSULIN PUMP. VITILIGO-FACE. ANEMIA. DIZZINESS OFF & ON, HERNIATED DISCS L1,L2,L3,L4-L5, PINCHED SCIATIC NERVE. OSTEOPENIA. HIATAL HERNIA. ELEV LFS. OCC NT BUE. MILD Neuropathy. DIABETIC RETINOPATHY. TINNITUS. FX LT ANKLE, LUMBAR BACK PAIN Last Myocardial Infarction Date:: June 2009, 01/09/18 History of Any Multi-Drug Resistant Organisms: None Reported Past Surgical History: AICD, Cardiac Ablation, Cholecystectomy, Coronary Bypass/CABG, Heart Catheterization, Heart Catheterization With Stent, Hysterectomy, Pacemaker, Tonsillectomy Additional Past Surgical History / Comment(s): 04/06/19 venogram and device interogation, TRIPLE BYPASS 2012. EXC. CATARACTS WITH LENS IMPLANTS. DEFIBRILLATOR ST.ESME 2010; DUAL AICD 04/14/18. 3 cardiac stents, LAST 01/2018. CARDIAC Ablation 1994. LIVER BIOPSY (FATTY LIVER). Past Anesthesia/Blood Transfusion Reactions: Postoperative Nausea & Vomiting (PONV) Additional Past Anesthesia/Blood Transfusion Reaction / Comment(s): DAUGHTER'S HAVE PONV. (HX nausea from iron infusions) Date of Last Stent Placement:: 2008 x2, 01/2018 X1 Type of Cardiac Device: Permanent Pacemaker, AICD Device Placement Date:: 2017 Past Psychological History: Anxiety, Depression Past Alcohol Use History: Occasional - Past Family History Mother Family Medical History: Congestive Heart Failure (CHF), Coronary Artery Disease (CAD), Diabetes Mellitus, Deep Vein Thrombosis (DVT) Additional Family Medical History / Comment(s): HEART DISEASE, Father Family Medical History: Congestive Heart Failure (CHF) (Father at age of 78 from congestive heart failure and he also was diabetic.), Diabetes Mellitus Additional Family Medical History / Comment(s): HEART DISEASE Sister(s) Family Medical History: Cancer Additional Family Medical History / Comment(s): 2 1/2 sisters with breast cancer, 1/2 sister-thyroid cancer, 1/2 SISTER - PANCREATIC CANCER. Brother(s) Family Medical History: Coronary Artery Disease (CAD) Daughter(s) Family Medical History: Supraventricular Tachycardia (SVT) Son(s) Family Medical History: No Reported History General Exam Limitations: no limitations General appearance: alert, in no apparent distress Head exam: Present: atraumatic, normocephalic, normal inspection Eye exam: Present: normal appearance, PERRL, EOMI. Absent: scleral icterus, conjunctival injection, periorbital swelling ENT exam: Present: normal exam, mucous membranes moist Neck exam: Present: normal inspection. Absent: tenderness, meningismus, lymphadenopathy Respiratory exam: Present: normal lung sounds bilaterally. Absent: respiratory distress, wheezes, rales, rhonchi, stridor Cardiovascular Exam: Present: regular rate, normal rhythm, normal heart sounds. Absent: systolic murmur, diastolic murmur, rubs, gallop, clicks GI/Abdominal exam: Present: soft, normal bowel sounds. Absent: distended, tenderness, guarding, rebound, rigid Extremities exam: Present: normal inspection, full ROM, normal capillary refill. Absent: tenderness, pedal edema, joint swelling, calf tenderness Back exam: Present: normal inspection Neurological exam: Present: alert, oriented X3, CN II-XII intact Psychiatric exam: Present: normal affect, normal mood Skin exam: Present: warm, dry, intact, normal color. Absent: rash Course Vital Signs 12/18/24 12/18/24 12/18/24 17:01 18:30 18:45 Temperature 99.0 F Pulse Rate 99 94 Respiratory 16 20 Rate Blood Pressure 114/60 165/82 O2 Sat by Pulse 95 89 L 95 Oximetry 12/18/24 12/18/24 12/18/24 19:17 20:04 20:24 Temperature Pulse Rate 86 78 Respiratory 18 18 Rate Blood Pressure 179/99 O2 Sat by Pulse 97 Oximetry 12/18/24 12/18/24 20:30 20:38 Temperature 100.3 F H Pulse Rate 89 80 Respiratory 18 Rate Blood Pressure 120/52 O2 Sat by Pulse 99 Oximetry - Reevaluation(s) Reevaluation #1: 12/18/24 17:33 Medical records reviewed Reevaluation #2: 12/18/24 19:45 Patient symptoms improved here in the ER Reevaluation #3: 12/18/24 19:45 Patient informed of results questions answered Reevaluation #4: Was pt. sent in by a medical professional or institution ([employer], [employer], urgent care, hospital, or custodial...) When possible be specific @ -no Did you speak to anyone other than the patient for history (EMS, parent, family, police, friend...)? What history was obtained from this source @ -no Did you review nursing and triage notes (agree or disagree)? Why? @ -agree Are old charts reviewed (outside hosp., previous admission, EMS record, old EKG, old radiological studies, urgent care reports/EKG's, custodial records)? Report findings @ -yes Differential Diagnosis (chest pain, altered mental status, abdominal pain women, abdominal pain men, vaginal bleeding, weakness, fever, dyspnea, syncope, headache, dizziness, GI bleed, back pain, seizure, CVA, palpatations, mental health, musculoskeletal)? @ -prior EKG interpreted by me (3pts min.). @ -yes X-rays interpreted by me (1pt min.). @ -yes positive for pneumonia no fracture CT interpreted by me (1pt min.). @ -no U/S interpreted by me (1pt. min.). @ -no What testing was considered but not performed or refused? (CT, X-rays, U/S, labs)? Why? @ -none What meds were considered but not given or refused? Why? @ -none Did you discuss the management of the patient with other professionals (professionals i.e. [employer], [employer], lab, RT, psych nurse, social media content specialist, military lawyer, teacher, conservation enforcement officer, showcase trimmer)? Give summary @ -no Was smoking cessation discussed for >3mins.? @ -no Was critical care preformed (if so, how long)? @ -[id number] Were there social determinants of health that impacted care today? How? (Homelessness, low income, unemployed, alcoholism, drug addiction, transportation, low edu. Level, literacy, decrease access to med. care, care home, rehab)? @ -none Was there de-escalation of care discussed even if they declined (Discuss DNR or withdrawal of care, Hospice)? DNR status @ -no What co-morbidities impacted this encounter? (DM, HTN, Smoking, COPD, CAD, Cancer, CVA, ARF, Chemo, Hep., AIDS, mental health diagnosis, sleep apnea, morbid obesity)? @ -none Was patient admitted / discharged? Hospital course, mention meds given and route, prescriptions, significant lab abnormalities, going to OR and other [facility] info. @ - 74 female to the ER for evaluation, patient with a fall weakness found to have pneumonia with hypoxia here in the ER patient will be admitted for IV antibiotics and monitoring of oxygen level Admitted Undiagnosed new problem with uncertain prognosis? @ -no Drug Therapy requiring intensive monitoring for toxicity (Heparin, Nitro, Insulin, Cardizem)? @ -no Were any procedures done? @ -no Diagnosis/symptom? @ -Pneumonia with hypoxia, fall concerns syncope Acute, or Chronic, or Acute on Chronic? @ -Acute Uncomplicated (without systemic symptoms) or Complicated (systemic symptoms)? @ -Complicated Side effects of treatment? @ -no Exacerbation, Progression, or Severe Exacerbation? @ -exacerbation Poses a threat to life or bodily function? How? (Chest pain, [place], OK, pneumonia, PE, COPD, DKA, ARF, appy, cholecystitis, CVA, Diverticulitis, Homicidal, Suicidal, threat to staff... and all critical care pts) @ -yes hypoxia with pneumonia Reevaluation #5: Differential Weakness: Hypoglycemia, shock, sepsis, hyponatremia, anemia, infection, OK, ETOH, adverse medicine reaction, overdose, stroke, this is not meant to be an all-inclusive list. - Consultations Consultation #1: Spoke with [facility] who agrees to admit this patient EKG Findings - EKG Comments: EKG Findings:: EKG is paced 87 MN 142 QRS 127 QTc 447 - EKG Results: EKG: interpreted by ERMD Medical Decision Making - Medical Decision Making 74 female to the ER for evaluation, patient with a fall weakness found to have pneumonia with hypoxia here in the ER patient will be admitted for IV a ntibiotics and monitoring of oxygen level - Lab Data Result diagrams: 12/23/24 04:04 12/23/24 04:04 Lab Results 12/18/24 12/18/24 12/18/24 Range/Units 17:22 17:22 17:22 WBC 14.73 H (4.50-10.00) 10*3/uL RBC 3.12 L (4.10-5.20) 10*6/uL Hgb 9.5 L (12.0-15.0) g/dL Hct 29.1 L (37.2-46.3) % MCV 93.3 (80.0-97.0) fL MCH 30.4 (27.0-32.0) pg MCHC 32.6 (32.0-37.0) g/dL Plt Count 374 (140-440) 10*3/uL MPV 9.5 (9.5-12.2) fL Immature Gran % (Auto) 0.5 % Neutrophils % 81.7 % Lymphocytes % 5.2 % Monocytes % 8.0 % Eosinophils % 4.4 % Basophils % 0.2 % Immature Gran # 0.07 H (0.00-0.04) 10*3/uL Neutrophils # 12.03 H (1.80-7.70) 10*3/uL Lymphocytes # 0.77 L (0.90-5.00) 10*3/uL Monocytes # 1.18 H (0.20-1.00) 10*3/uL Eosinophils # 0.65 H (0.04-0.35) 10*3/uL Basophils # 0.03 (0.00-0.10) 10*3/uL PT 11.6 (10.0-12.5) sec INR 1.1 (<1.2) APTT 24.9 (22.0-30.0) sec Sodium 132 L (137-145) mmol/L Potassium 4.4 (3.5-5.1) mmol/L Chloride 100 (98-107) mmol/L Carbon Dioxide 23 (22-30) mmol/L Anion Gap 9 mmol/L BUN 16 (7-17) mg/dL Creatinine 0.92 (0.52-1.04) mg/dL Est GFR (CKD-EPI)AfAm 72 (>60 ml/min/1.73 sqM) Est GFR (CKD-EPI)NonAf 63 (>60 ml/min/1.73 sqM) Glucose 124 H (74-99) mg/dL Plasma Lactic Acid Mikael (0.7-2.0) mmol/L Calcium 8.8 (8.4-10.2) mg/dL Phosphorus 2.4 L (2.5-4.5) mg/dL Magnesium 1.7 (1.6-2.3) mg/dL Total Bilirubin 0.5 (0.2-1.3) mg/dL AST 36 (14-36) U/L ALT 15 (4-34) U/L Alkaline Phosphatase 161 H (38-126) U/L Troponin I (0.000-0.034) ng/mL Total Protein 6.0 L (6.3-8.2) g/dL Albumin 2.9 L (3.5-5.0) g/dL TSH 6.740 H (0.465-4.680) mIU/L Urine Color Urine Appearance (Clear) Urine pH (5.0-8.0) Ur Specific [place] (1.001-1.035) Urine Protein (Negative) Urine Glucose (UA) (Negative) Urine Ketones (Negative) Urine Blood (Negative) Urine Nitrite (Negative) Urine Bilirubin (Negative) Urine Urobilinogen (<2.0) mg/dL Ur Leukocyte Esterase (Negative) Influenza Type A (PCR) (Not Detectd) Influenza Type B (PCR) (Not Detectd) Urine Legionella Ag (Negative) RSV (PCR) (Not Detectd) SARS-CoV-2 (PCR) (Not Detectd) 12/18/24 12/18/24 12/18/24 Range/Units 17:22 17:22 18:06 WBC (4.50-10.00) 10*3/uL RBC (4.10-5.20) 10*6/uL Hgb (12.0-15.0) g/dL Hct (37.2-46.3) % MCV (80.0-97.0) fL MCH (27.0-32.0) pg MCHC (32.0-37.0) g/dL Plt Count (140-440) 10*3/uL MPV (9.5-12.2) fL Immature Gran % (Auto) % Neutrophils % % Lymphocytes % % Monocytes % % Eosinophils % % Basophils % % Immature Gran # (0.00-0.04) 10*3/uL Neutrophils # (1.80-7.70) 10*3/uL Lymphocytes # (0.90-5.00) 10*3/uL Monocytes # (0.20-1.00) 10*3/uL Eosinophils # (0.04-0.35) 10*3/uL Basophils # (0.00-0.10) 10*3/uL PT (10.0-12.5) sec INR (<1.2) APTT (22.0-30.0) sec Sodium (137-145) mmol/L Potassium (3.5-5.1) mmol/L Chloride (98-107) mmol/L Carbon Dioxide (22-30) mmol/L Anion Gap mmol/L BUN (7-17) mg/dL Creatinine (0.52-1.04) mg/dL Est GFR (CKD-EPI)AfAm (>60 ml/min/1.73 sqM) Est GFR (CKD-EPI)NonAf (>60 ml/min/1.73 sqM) Glucose (74-99) mg/dL Plasma Lactic Acid Mikael 1.8 (0.7-2.0) mmol/L Calcium (8.4-10.2) mg/dL Phosphorus (2.5-4.5) mg/dL Magnesium (1.6-2.3) mg/dL Total Bilirubin (0.2-1.3) mg/dL AST (14-36) U/L ALT (4-34) U/L Alkaline Phosphatase (38-126) U/L Troponin I <0.012 (0.000-0.034) ng/mL Total Protein (6.3-8.2) g/dL Albumin (3.5-5.0) g/dL TSH (0.465-4.680) mIU/L Urine Color Colorless Urine Appearance Clear (Clear) Urine pH 6.0 (5.0-8.0) Ur Specific [place] 1.006 (1.001-1.035) Urine Protein Negative (Negative) Urine Glucose (UA) Negative (Negative) Urine Ketones Negative (Negative) Urine Blood Negative (Negative) Urine Nitrite Negative (Negative) Urine Bilirubin Negative (Negative) Urine Urobilinogen <2.0 (<2.0) mg/dL Ur Leukocyte Esterase Negative (Negative) Influenza Type A (PCR) (Not Detectd) Influenza Type B (PCR) (Not Detectd) Urine Legionella Ag (Negative) RSV (PCR) (Not Detectd) SARS-CoV-2 (PCR) (Not Detectd) 12/18/24 12/18/24 Range/Units 18:06 18:48 WBC (4.50-10.00) 10*3/uL RBC (4.10-5.20) 10*6/uL Hgb (12.0-15.0) g/dL Hct (37.2-46.3) % MCV (80.0-97.0) fL MCH (27.0-32.0) pg MCHC (32.0-37.0) g/dL Plt Count (140-440) 10*3/uL MPV (9.5-12.2) fL Immature Gran % (Auto) % Neutrophils % % Lymphocytes % % Monocytes % % Eosinophils % % Basophils % % Immature Gran # (0.00-0.04) 10*3/uL Neutrophils # (1.80-7.70) 10*3/uL Lymphocytes # (0.90-5.00) 10*3/uL Monocytes # (0.20-1.00) 10*3/uL Eosinophils # (0.04-0.35) 10*3/uL Basophils # (0.00-0.10) 10*3/uL PT (10.0-12.5) sec INR (<1.2) APTT (22.0-30.0) sec Sodium (137-145) mmol/L Potassium (3.5-5.1) mmol/L Chloride (98-107) mmol/L Carbon Dioxide (22-30) mmol/L Anion Gap mmol/L BUN (7-17) mg/dL Creatinine (0.52-1.04) mg/dL Est GFR (CKD-EPI)AfAm (>60 ml/min/1.73 sqM) Est GFR (CKD-EPI)NonAf (>60 ml/min/1.73 sqM) Glucose (74-99) mg/dL Plasma Lactic Acid Mikael (0.7-2.0) mmol/L Calcium (8.4-10.2) mg/dL Phosphorus (2.5-4.5) mg/dL Magnesium (1.6-2.3) mg/dL Total Bilirubin (0.2-1.3) mg/dL AST (14-36) U/L ALT (4-34) U/L Alkaline Phosphatase (38-126) U/L Troponin I (0.000-0.034) ng/mL Total Protein (6.3-8.2) g/dL Albumin (3.5-5.0) g/dL TSH (0.465-4.680) mIU/L Urine Color Urine Appearance (Clear) Urine pH (5.0-8.0) Ur Specific [place] (1.001-1.035) Urine Protein (Negative) Urine Glucose (UA) (Negative) Urine Ketones (Negative) Urine Blood (Negative) Urine Nitrite (Negative) Urine Bilirubin (Negative) Urine Urobilinogen (<2.0) mg/dL Ur Leukocyte Esterase (Negative) Influenza Type A (PCR) Not Detected (Not Detectd) Influenza Type B (PCR) Not Detected (Not Detectd) Urine Legionella Ag Negative (Negative) RSV (PCR) Not Detected (Not Detectd) SARS-CoV-2 (PCR) Not Detected (Not Detectd) - Radiology Data Radiology results: report reviewed (Chest x-ray is positive pneumonia x-ray pelvis hip negative for traumatic injury), image reviewed Critical Care Time Critical Care Time: Yes Total Critical Care Time: 31 Disposition Clinical Impression: Weakness, Fall, Hypoxia, Pneumonia, Dehydration Disposition: ADMITTED IP TO THIS [facility] Condition: Serious Is patient prescribed a controlled substance at d/c from ED?: No Time of Disposition: 19:00
[2024-12-18 17:40] LABS: INR 1.1 (<1.2); Partial Thromboplastin Time 24.9 sec (22.0-30.0); Prothrombin Time 11.6 sec (10.0-12.5)
[2024-12-18 17:43] LABS: ALT 15 U/L (4-34); AST 36 U/L (14-36); African American GFR (CKD) 72 (>60 ml/min/1.73 sqM); Albumin 2.9 g/dL (3.5-5.0); Alkaline Phosphatase 161 U/L (38-126); Anion Gap 9 mmol/L; Blood Urea Nitrogen 16 mg/dL (7-17); Calcium 8.8 mg/dL (8.4-10.2); Carbon Dioxide 23 mmol/L (22-30); Chloride 100 mmol/L (98-107); Glucose 124 mg/dL (74-99); Magnesium 1.7 mg/dL (1.6-2.3); Non-African American GFR(CKD) 63 (>60 ml/min/1.73 sqM); Potassium 4.4 mmol/L (3.5-5.1); Sodium 132 mmol/L (137-145); Total Protein 6.0 g/dL (6.3-8.2)
[2024-12-18 18:23] LABS: Bilirubin,Urine Negative (Negative); Blood,Urine Negative (Negative); Color,Urine Colorless; Glucose,Urine (UA) Negative (Negative); Ketones,Urine Negative (Negative); Leukocyte Esterase,Urine Negative (Negative); Nitrite,Urine Negative (Negative); PH, Urine 6.0 (5.0-8.0); Protein,Urine Negative (Negative); Specific Gravity,Urine 1.006 (1.001-1.035); Urobilinogen,Urine <2.0 mg/dL (<2.0)
--- NOTE | 2024-12-18 18:27 | XR ---
EXAMINATION TYPE: XR chest 2V DATE OF EXAM: 12/18/2024 5:43 PM COMPARISON: None. CLINICAL INDICATION: Female, 74 years old with history of Weakness, TECHNIQUE: XR chest 2V view(s) obtained. FINDINGS: The heart size is enlarged. The pulmonary vasculature is prominent. Patchy bilateral lung infiltrates are present. Clinical correlation for congestive heart failure is r ecommended. Atypical pneumonia should be considered.. IMPRESSION: 1. Clinical correlation recommended for congestive heart failure or atypical pneumonia [facility], , 12/18/2024 6:25 PM
--- NOTE | 2024-12-18 18:32 | XR ---
EXAMINATION TYPE: XR Hip RT and AP Pelvis DATE OF EXAM: 12/18/2024 5:43 PM COMPARISON: None. CLINICAL INDICATION: Female, 74 years old with history of pain, pain TECHNIQUE: AP view(s) obtained. FINDINGS: There is a right hip prosthesis. Left femoral head articulates with the acetabulum. Joint space is na rrowed. Symphysis pubis and sacroiliac joints are normal. Normal bowel gas is present. IMPRESSION: 1. No acute osseous abnormalities AP pelvis [facility], , 12/18/2024 6:30 PM
[2024-12-18 19:29] LABS: RSV Not Detected (Not Detectd)
[2024-12-18] MEDS ORDERED: IPRATROPIUM-ALBUTEROL 3 ML NEB INHALATION PRN (19:41)
[2024-12-18] MEDS ORDERED: PNEUMONIA PROTOCOL UTILIZED 1 EACH MISC PO PRN (19:41)
[2024-12-18] MEDS: SODIUM CHLORIDE 0.9% 1,000 ML IV SCH (20:00)
[2024-12-18] MEDS: IPRATROPIUM-ALBUTEROL 3 ML NEB INHALATION STA (20:21)
[2024-12-18 21:04] LABS: Glucose,Whole Blood 215 mg/dL (70-110)
[2024-12-18] MEDS: AZITHROMYCIN 500 MG in SODIUM CHLORIDE 0.9% 250 ML IVPB STA (22:13)
[2024-12-18] MEDS ORDERED: INSPUCOR MISCELLANE PRN (23:59)
[2024-12-18] MEDS ORDERED: INSULIN PUMP BASAL RATES 1 EACH MISC MISCELLANE PRN (23:59)
[2024-12-19] MEDS: ONDANSETRON 4 MG/2 ML VIAL IVP PRN (00:15)
[2024-12-19] MEDS: ACETAMINOPHEN TAB 325 MG TAB PO PRN (00:15)
[2024-12-19] MEDS: HYDROcodone/APAP 5-325MG 1 EACH TAB PO PRN (00:16)
[2024-12-19] MEDS: guaiFENesin-DM 100-10MG/5ML 10 ML CUP PO PRN (00:16)
[2024-12-19] MEDS: ASPIRIN 81 MG PO SCH (00:30)
[2024-12-19] MEDS: ATORVASTATIN 40 MG TAB PO SCH (00:30)
[2024-12-19] MEDS: ARTIFICIAL TEARS-HYPROMELLOSE DROPS 15 ML BTL BOTH EYES SCH (00:30)
[2024-12-19] MEDS: buPROPion SR 150 MG TABLET.ER PO SCH (00:30)
[2024-12-19] MEDS: SACUBITRIL/VALSARTAN 24 MG-26 MG TABLET PO SCH (00:31)
[2024-12-19] MEDS: FUROSEMIDE 20 MG TAB PO SCH (00:31)
[2024-12-19] MEDS: EZETIMIBE 10 MG TAB PO SCH (00:31)
[2024-12-19] MEDS: GABAPENTIN 300 MG CAP PO SCH (00:31)
[2024-12-19] MEDS ORDERED: KETOROLAC 15 MG/ML 1 ML VIAL IVP PRN (00:33)
[2024-12-19 02:27] LABS: Glucose,Whole Blood 160 mg/dL (70-110)
[2024-12-19] MEDS: KETOROLAC 15 MG/ML 1 ML VIAL IVP SCH (02:57)
[2024-12-19] MEDS ORDERED: IPRATROPIUM-ALBUTEROL 3 ML NEB INHALATION PRN (04:29)
--- NOTE | 2024-12-19 04:36 | P.CNPUL ---
History of Present Illness Consult date: 12/19/24 Requesting physician: Tristan Atkins Reason for consult: pneumonia Chief complaint: Altered mental status, shortness of breath, cough History of present illness: Patient is a 75-year-old female with past medical history significant for hypertension, hyperlipidemia, insulin-dependent diabetes mellitus, obesity, coronary artery disease with previous CABG, ischemic cardiomyopathy with an e jection fraction of 25 to 30% with AICD, asthma, and osteoarthritis. Of note, patient recently underwent right direct anterior total hip arthroplasty on 11/24/2024. She was discharged from the hospital to [facility] for rehabilitation. While at the outside facility, developed shortness of breath, coughing, and generalized weakness. States she was released from [facility] to home last Wednesday on November. Since then, she has fallen twice while at home. Brought in by EMS yesterday evening hypoxic and confused. She was placed on supplemental oxygen. Workup in the emergency department including a chest x-ray showing patchy bilateral lung infiltrates concerning for congestive heart failure or atypical pneumonias. CBC: WBC count 14.7, hemoglobin 9.5 g/dL, platelets 374. BMP: Sodium 132, potassium 4.4, chloride 100, serum bicarb 23, BUN 16, creatinine 0.92, glucose 124. Lactic 1.8. LFTs unremarkable. Troponin less than 0.012. NT proBNP 6.74. Viral 4 Plex negative for influenza A/B, RSV, COVID. Urinalysis unremarkable for UTI. Patient currently being evaluated on [facility] floor. She is alert and oriented x 3. Endorses above mentioned complaints. Does report history of asthma. Has had increased work of breathing over the last couple weeks. Suffering from persistent nonproductive cough over the same timeframe. States her symptoms actually started at [facility]. She has had a poor appetite with occasional nausea and vomiting. She has been able to take some of her home medications. Has had intermittent fevers with a Tmax of 100.8 F. Was started on empiric antibiotics in the ED, in the form azithromycin and Rocephin. Normal saline infusing at 50 mL/h. Denies any chest pain. Does endorse unilateral right lower lower extremity edema. No heart palpitations, syncopal events, hemoptysis. Current vital signs: Temperature 100.8 F, heart rate 95 bpm, blood pressure 124/54 mmHg, nontachypneic, SpO2 recorded at 96% on 3 L/min nasal cannula. Review of Systems Constitutional: Reports chills, Reports fatigue, Reports fever, Reports poor appetite, Denies sweats, Denies weight gain, Denies weight loss Ears, nose, mouth and throat: Denies dysphagia, Denies headache, Denies nasal congestion, Denies nasal discharge, Denies post-nasal drip, Denies sinus pain, Denies sinus pressure, Denies sore throat Cardiovascular: Reports dyspnea on exertion, Reports leg edema (Right unilateral leg edema), Reports shortness of breath, Denies chest pain, Denies lightheadedness, Denies orthopnea, Denies palpitations, Denies syncope Respiratory: Reports congestion, Reports cough, Denies cough with sputum, Denies hemoptysis, Denies home oxygen, Denies pain on inspiration, Denies wheezing Gastrointestinal: Reports nausea, Reports vomiting, Denies abdominal pain, Denies change in bowel habits, Denies constipation, Denies diarrhea Genitourinary: Denies dysuria, Denies flank pain, Denies hematuria Musculoskeletal: Denies limitation of motion Musculoskeletal: right: hip pain, hip stiffness Integumentary: Denies rash Neurological: Denies seizures, Denies syncope Psychiatric: Reports anxiety, Reports depression, Denies suicidal ideation Past Medical History Past Medical History: Asthma, Blood Disorder, Coronary Artery Disease (CAD), Chest Pain / Angina, Heart Failure, Diabetes Mellitus, Eye Disorder, ANGELICA D/Reflux, Hyperlipidemia, Hypertension, Myocardial Infarction (AL), Musculoskeletal Disorder, Osteoarthritis (OA), Renal Disease, Skin Disorder, Supraventricular Tachycardia (SVT), Thyroid Disorder Additional Past Medical History / Comment(s): USES INSULIN PUMP. VITILIGO-FACE. ANEMIA. DIZZINESS OFF & ON, HERNIATED DISCS L1,L2,L3,L4-L5, PINCHED SCIATIC NERVE. OSTEOPENIA. HIATAL HERNIA. ELEV LFS. OCC NT BUE. MILD Neuropathy. DIABETIC RETINOPATHY. TINNITUS. FX LT ANKLE, LUMBAR BACK PAIN Last Myocardial Infarction Date:: June 2009, 01/09/18 History of Any Multi-Drug Resistant Organisms: None Reported Past Surgical History: AICD, Cardiac Ablation, Cholecystectomy, Coronary Bypass/CABG, Heart Catheterization, Heart Catheterization With Stent, Hysterectomy, Pacemaker, Tonsillectomy Additional Past Surgical History / Comment(s): 04/06/19 venogram and device interogation, TRIPLE BYPASS 2012. EXC. CATARACTS WITH LENS IMPLANTS. DEFIBRILLATOR ST.ESME 2010; DUAL AICD 04/14/18. 5 cardiac stents, LAST 06/2024. CARDIAC Ablation 1994. LIVER BIOPSY (FATTY LIVER). Past Anesthesia/Blood Transfusion Reactions: Postoperative Nausea & Vomiting (PONV) Additional Past Anesthesia/Blood Transfusion Reaction / Comment(s): DAUGHTER'S HAVE PONV. (HX nausea from iron infusions) Date of Last Stent Placement:: 2008 x2, 01/2018 X1, 06/2024 x2 Type of Cardiac Device: Permanent Pacemaker, AICD Device Placement Date:: 2017 Past Psychological History: Anxiety, Depression Smoking Status: Never smoker Past Alcohol Use History: Occasional Additional Past Alcohol Use History / Comment(s): Patient is a lifelong nonsmoker, no illicit drug use, no alcohol use. She lives at home with her . Past Drug Use History: None Reported - Past Family History Mother Family Medical History: Congestive Heart Failure (CHF), Coronary Artery Disease (CAD), Diabetes Mellitus, Deep Vein Thrombosis (DVT) Additional Family Medical History / Comment(s): HEART DISEASE, Father Family Medical History: Congestive Heart Failure (CHF) (Father at age of 78 from congestive heart failure and he also was diabetic.), Diabetes Mellitus Additional Family Medical History / Comment(s): HEART DISEASE Sister(s) Family Medical History: Cancer Additional Family Medical History / Comment(s): 2 1/2 sisters with breast cancer, 1/2 sister-thyroid cancer, 1/2 SISTER - PANCREATIC CANCER. Brother(s) Family Medical History: Coronary Artery Disease (CAD) Daughter(s) Family Medical History: Supraventricular Tachycardia (SVT) Son(s) Family Medical History: No Reported History Medications and Allergies Home Medications Medication Instructions Recorded Confirmed Type Budesonide-Formot 160-4.5 Mcg 2 puff INHALATION BID PRN 12/27/15 12/18/24 History [Symbicort 160-4.5 Mcg Inhaler] Ezetimibe [Zetia] 10 mg PO HS 12/27/15 12/18/24 History Furosemide [Lasix] 20 mg PO MOWEFR 12/27/15 12/18/24 History fluvoxaMINE MALEATE [Luvox] 300 mg PO HS 12/27/15 12/18/24 History Albuterol Inhaler [Ventolin Hfa 2 puff INHALATION RT-Q4H PRN 03/29/17 12/18/24 History Inhaler] buPROPion SR [Wellbutrin SR] 175 mg PO BID 03/29/17 12/18/24 History Baclofen [Lioresal] 20 mg PO TID PRN 01/10/18 12/18/24 History Sacubitril/Valsartan [Entresto 24 1 tab PO BID 04/11/18 12/18/24 History mg-26 mg Tablet] Insulin Aspart (For Pump) [NovoLOG 0.01 unit SQ-PUMP CONTINUOUS 05/17/18 12/18/24 History (For Pump)] Rosuvastatin Calcium [Crestor] 20 mg PO HS 06/06/18 12/18/24 History Acetaminophen Tab [Tylenol] 1,000 mg PO Q6HR PRN tab 05/03/19 12/18/24 Rx Levothyroxine Sodium [Synthroid] 112 mcg PO DAILY 07/16/22 12/18/24 History Dapagliflozin Propanediol [Farxiga] 10 mg PO DAILY 10/19/23 12/18/24 History Gabapentin [Neurontin] 300 mg PO TID 10/19/23 12/18/24 History Nitroglycerin Sl Tabs [Nitrostat] 0.4 mg SL Q5M PRN 10/19/23 12/18/24 History busPIRone HCl [Buspar] 30 mg PO DAILY 10/19/23 12/18/24 History traZODone HCL [Desyrel] 50 mg PO HS 10/19/23 12/18/24 History busPIRone HCL 15 mg PO HS 06/26/24 12/18/24 History Aspirin [Adult Low Dose Aspirin EC] 81 mg PO BID 11/17/24 12/18/24 History Clopidogrel [Plavix] 75 mg PO DAILY 11/17/24 12/18/24 History Propylene Glycol [Systane Complete] 1 drop BOTH EYES BID 11/17/24 12/18/24 History Doxycycline Monohydrate 100 mg PO BID-W/MEALS 14 Days #28 11/24/24 12/18/24 Rx cap Ergocalciferol [Vitamin D2 (1250 1,250 mcg PO PRUITT 12/18/24 12/18/24 History Mcg = 35735 Iu)] HYDROcodone/APAP 5-325MG [[employer] 1 tab PO Q6HR PRN 12/18/24 12/18/24 History 5-325] Ondansetron Odt [Zofran Odt] 4 mg PO TID PRN 12/18/24 12/18/24 History carvediloL [Coreg] 6.25 mg PO BID 12/18/24 12/18/24 History Allergies Allergy/AdvReac Type Severity Reaction Status Date / Time adhesive tape Allergy Rash/Hives Verified 12/18/24 20:59 metronidazole [From Flagyl] Allergy Rash/Hives Verified 12/18/24 20:59 Nitroimidazoles Allergy Rash/Hives Verified 12/18/24 20:59 Physical Exam Vitals: Vital Signs Temp Pulse Pulse Resp BP BP Pulse Ox 12/19/24 00:41 100.8 F H 95 19 124/54 96 12/19/24 00:34 94 L 12/19/24 00:28 100.1 F H 16 88 L 12/18/24 20:38 80 12/18/24 20:30 100.3 F H 89 18 120/52 99 12/18/24 20:24 78 12/18/24 20:04 18 179/99 12/18/24 19:17 86 18 97 12/18/24 18:45 95 12/18/24 18:30 94 20 165/82 89 L 12/18/24 17:01 99.0 F 99 16 114/60 95 Intake and Output 12/18/24 12/18/24 12/19/24 14:59 22:59 06:59 Other: # Voids 1 Weight 90.718 kg GENERAL EXAM: Alert, 74-year-old obese female, on 3 L/min nasal cannula, intermittent dry cough, fairly comfortable in no apparent distress. Insulin pump noted. HEAD: Normocephalic and atraumatic EYES: Normal reaction of pupils, equal size. NOSE: Clear with pink turbinates. THROAT: No erythema or exudates. NECK: No masses, no JVD. CHEST: No chest wall deformity. Left chest implanted device. LUNGS: Equal air entry without crackles, rhonchi, wheezing. on 3 L/min nasal cannula. No conversational dyspnea or accessory muscle use.. CVS: S1 and S2 normal with no audible murmur, regular rhythm. No extra heart sounds ABDOMEN: No hepatosplenomegaly, active bowel sounds, no guarding or rigidity. SPINE: No scoliosis or deformity SKIN: No rashes CENTRAL NERVOUS SYSTEM: No focal deficits, tone is normal in all 4 extremities. EXTREMITIES: Right anterior hip incision is approximated, pink, without dehiscence or drainage. Full range of motion. Right lower extremity pitting edema. No clubbing or cyanosis. Peripheral pulses are intact. Results - Laboratory Findings CBC and BMP: 12/18/24 17:22 12/18/24 17:22 PT/INR, D-dimer PT 11.6 sec (10.0-12.5) 12/18/24 17: INR 1.1 (<1.2) 12/18/24 17:22 Abnormal lab findings: Abnormal Labs 12/18/24 12/18/24 12/18/24 17:22 17:22 21:02 WBC 14.73 H RBC 3.12 L Hgb 9.5 L Hct 29.1 L Immature Gran # 0.07 H Neutrophils # 12.03 H Lymphocytes # 0.77 L Monocytes # 1.18 H Eosinophils # 0.65 H Sodium 132 L Glucose 124 H POC Glucose (mg/dL) 215 H Phosphorus 2.4 L Alkaline Phosphatase 161 H Total Protein 6.0 L Albumin 2.9 L TSH 6.740 H 12/19/24 02:25 WBC RBC Hgb Hct Immature Gran # Neutrophils # Lymphocytes # Monocytes # Eosinophils # Sodium Glucose POC Glucose (mg/dL) 160 H Phosphorus Alkaline Phosphatase Total Protein Albumin TSH - Diagnostic Findings Chest x-ray: image reviewed Assessment and Plan Assessment: Healthcare associated pneumonia, bilateral Acute asthma exacerbation Acute hypoxemic respiratory failure, currently on 3 L/min nasal cannula, secondary to above; chest x-ray remarkable for cardiomegaly, possible pulmonary vascular congestion, patchy bilateral lower lung infiltrates. Prior sternotomy wires. AICD generator and leads. Concerning for atypical pneumonia or congestive heart failure. Acute febrile illness Acute leukocytosis History of right direct anterior total hip arthroplasty on November 24 Acute blood loss anemia, expected outcome of surgery Hypertension History of hyperlipidemia Insulin-dependent diabetes mellitus Obesity with a BMI of 35.4 kg/m Coronary artery disease, with history of CABG and cardiac stents History of ischemic cardiomyopathy with an ejection fraction of 25 to 30% Implanted AICD/pacemaker Hypothyroidism Anxiety/depression Plan: Patient's medications, labs, imaging reviewed Chest x-ray concerning for pneumonia with bilateral patchy infiltrates. Underlying exacerbation of CHF is not excluded Viral 4 Plex negative for influenza A/B, RSV, COVID Check urine Legionella antigen Blood cultures pending Continue empiric antibiotics Add bronchodilators [id number] Add IV Solu-Medrol Check NT proBNP Obtain venous Doppler right lower extremity Continue home Lasix As needed Tylenol for fevers GI prophylaxis: Protonix DVT prophylaxis, Lovenox We will continue to follow I have personally seen and examined the patient, performed the documentation and the assessment and plan as written. Number of minutes spent on the visit:20 Time with Patient: Greater than 30
[2024-12-19] MEDS: LEVOTHYROXINE 112 MCG TAB PO SCH (05:56)
[2024-12-19 06:35] LABS: Glucose,Whole Blood 155 mg/dL (70-110)
--- NOTE | 2024-12-19 07:35 | XR ---
EXAMINATION TYPE: XR chest 1V portable DATE OF EXAM: 12/19/2024 7:18 AM COMPARISON: None. CLINICAL INDICATION: Female, 74 years old with history of pneumonia, TECHNIQUE: XR chest 1V portable view(s) obtained. FINDINGS: The heart size is normal. Pacemaker overlies left chest. Sternotomy wires are in the midline. The pulmonary vasculature is normal.. Patchy infiltrates are present bilaterally. Correlate for atypical pneumonia. Pulmonary edema can be considered IMPRESSION: 1. Stable patchy infiltrates greater on the right. Correlate for pulmonary edema and atypical pneumon ia [facility], , 12/19/2024 7:33 AM
[2024-12-19] MEDS: INSULIN PUMP MEAL BOLUS 1 UNIT MISC MISCELLANE SCH (08:00)
--- NOTE | 2024-12-19 08:00 | US ---
EXAMINATION TYPE: US venous doppler duplex LE RT DATE OF EXAM: 12/19/2024 7:37 AM COMPARISON: NONE CLINICAL INDICATION: Female, 74 years old with history of rule out DVT; recent hip surgery, Pain TECHNIQUE: The lower extremity deep venous system is examined utilizing real time linear array sonog miguel ángel with graded compression, color doppler sonography, and spectral doppler. SIDE PERFORMED: Right FINDINGS: VESSELS IMAGED: Common Femoral Vein Deep Femoral Vein Greater Saphenous Vein * Femoral Vein Popliteal Vein Small Saphenous Vein * Proximal Calf Veins (* superficial vessels) Right Leg: Negative for DVT, Color Doppler imaging shows patency of the vessels. Spectral waveforms are within normal limits. IMPRESSION: 1. Right lower extremity ultrasound negative for deep venous thrombosis. [facility], , 12/19/2024 7:58 AM
[2024-12-19] MEDS: FUROSEMIDE 10 MG/ML 4 ML VIAL IV SCH (08:02)
[2024-12-19] MEDS: PANTOPRAZOLE 40 MG/10 ML VIAL IVP SCH (08:02)
[2024-12-19] MEDS: methylPREDNISolone SOD SUCCI 40 MG/ML 1 ML VIAL IV SCH (08:02)
[2024-12-19] MEDS: CLOPIDOGREL 75 MG TAB PO SCH (08:03)
[2024-12-19] MEDS: DAPAGLIFLOZIN PROPANEDIOL 10 MG TABLET PO SCH (08:03)
--- NOTE | 2024-12-19 08:07 | P.CNOR ---
History of Present Illness - HPI History of present illness: Patient is a very pleasant 74-year-old female with multiple medical problems who is well-known to me. She previously underwent a right total hip replacement. She was doing relatively well postoperatively until the last day or so when she has had several falls. The patient has had some pain in the right hip after her falls. She presented to the ER and was admitted to internal medicine with pneumonia. This morning at the time of my evaluation her pain is significantly improved in the right hip. Past Medical History Past Medical History: Asthma, Blood Disorder, Coronary Artery Disease (CAD), Chest Pain / Angina, Heart Failure, Diabetes Mellitus, Eye Disorder, GERD/Reflux, Hyperlipidemia, Hypertension, Myocardial Infarction (OR), Musculoskeletal Disorder, Osteoarthritis (OA), Renal Disease, Skin Disorder, Supraventricular Tachycardia (SVT), Thyroid Disorder Additional Past Medical History / Comment(s): USES INSULIN PUMP. VITILIGO-FACE. ANEMIA. DIZZINESS OFF & ON, HERNIATED DISCS L1,L2,L3,L4-L5, PINCHED SCIATIC NERVE. OSTEOPENIA. HIATAL HERNIA. ELEV LFS. OCC NT BUE. MILD Neuropathy. DIABETIC RETINOPATHY. TINNITUS. FX LT ANKLE, LUMBAR BACK PAIN Last Myocardial Infarction Date:: June 2009, 01/09/18 History of Any Multi-Drug Resistant Organisms: None Reported Past Surgical History: AICD, Cardiac Ablation, Cholecystectomy, Coronary Bypass/CABG, Heart Catheterization, Heart Catheterization With Stent, Hysterectomy, Pacemaker, Tonsillectomy Additional Past Surgical History / Comment(s): 04/06/19 venogram and device interogation, TRIPLE BYPASS 2012. EXC. CATARACTS WITH LENS IMPLANTS. DEFIBRILLATOR ST.ESME 2010; DUAL AICD 04/14/18. 5 cardiac stents, LAST 06/2024. CARDIAC Ablation 1994. LIVER BIOPSY (FATTY LIVER). Past Anesthesia/Blood Transfusion Reactions: Postoperative Nausea & Vomiting (PONV) Additional Past Anesthesia/Blood Transfusion Reaction / Comm: DAUGHTER'S HAVE PONV. (HX nausea from iron infusions) Date of Last Stent Placement:: 2008 x2, 01/2018 X1, 06/2024 x2 Type of Cardiac Device: Permanent Pacemaker, AICD Device Placement Date:: 2017 Past Psychological History: Anxiety, Depression Smoking Status: Never smoker Past Alcohol Use History: Occasional Additional Past Alcohol Use History / Comment(s): Patient is a lifelong nonsmoker, no illicit drug use, no alcohol use. She lives at home with her . Past Drug Use History: None Reported - Past Family History Mother Family Medical History: Congestive Heart Failure (CHF), Coronary Artery Disease (CAD), Diabetes Mellitus, Deep Vein Thrombosis (DVT) Additional Family Medical History / Comment(s): HEART DISEASE, Father Family Medical History: Congestive Heart Failure (CHF) (Father at age of 78 from congestive heart failure and he also was diabetic.), Diabetes Mellitus Additional Family Medical History / Comment(s): HEART DISEASE Sister(s) Family Medical History: Cancer Additional Family Medical History / Comment(s): 2 1/2 sisters with breast cancer, 1/2 sister-thyroid cancer, 1/2 SISTER - PANCREATIC CANCER. Brother(s) Family Medical History: Coronary Artery Disease (CAD) Daughter(s) Family Medical History: Supraventricular Tachycardia (SVT) Son(s) Family Medical History: No Reported History Medications and Allergies Home Medications Medication Instructions Recorded Confirmed Type Budesonide-Formot 160-4.5 Mcg 2 puff INHALATION BID PRN 12/27/15 12/18/24 History [Symbicort 160-4.5 Mcg Inhaler] Ezetimibe [Zetia] 10 mg PO HS 12/27/15 12/18/24 History Furosemide [Lasix] 20 mg PO MOWEFR 12/27/15 12/18/24 History fluvoxaMINE MALEATE [Luvox] 300 mg PO HS 12/27/15 12/18/24 History Albuterol Inhaler [Ventolin Hfa 2 puff INHALATION RT-Q4H PRN 03/29/17 12/18/24 History Inhaler] buPROPion SR [Wellbutrin SR] 175 mg PO BID 03/29/17 12/18/24 History Baclofen [Lioresal] 20 mg PO TID PRN 01/10/18 12/18/24 History Sacubitril/Valsartan [Entresto 24 1 tab PO BID 04/11/18 12/18/24 History mg-26 mg Tablet] Insulin Aspart (For Pump) [NovoLOG 0.01 unit SQ-PUMP CONTINUOUS 05/17/18 12/18/24 History (For Pump)] Rosuvastatin Calcium [Crestor] 20 mg PO HS 06/06/18 12/18/24 History Acetaminophen Tab [Tylenol] 1,000 mg PO Q6HR PRN tab 05/03/19 12/18/24 Rx Levothyroxine Sodium [Synthroid] 112 mcg PO DAILY 07/16/22 12/18/24 History Dapagliflozin Propanediol [Farxiga] 10 mg PO DAILY 10/19/23 12/18/24 History Gabapentin [Neurontin] 300 mg PO TID 10/19/23 12/18/24 History Nitroglycerin Sl Tabs [Nitrostat] 0.4 mg SL Q5M PRN 10/19/23 12/18/24 History busPIRone HCl [Buspar] 30 mg PO DAILY 10/19/23 12/18/24 History traZODone HCL [Desyrel] 50 mg PO HS 10/19/23 12/18/24 History busPIRone HCL 15 mg PO HS 06/26/24 12/18/24 History Aspirin [Adult Low Dose Aspirin EC] 81 mg PO BID 11/17/24 12/18/24 History Clopidogrel [Plavix] 75 mg PO DAILY 11/17/24 12/18/24 History Propylene Glycol [Systane Complete] 1 drop BOTH EYES BID 11/17/24 12/18/24 History Doxycycline Monohydrate 100 mg PO BID-W/MEALS 14 Days #28 11/24/24 12/18/24 Rx cap Ergocalciferol [Vitamin D2 (1250 1,250 mcg PO PRUITT 12/18/24 12/18/24 History Mcg = 84862 Iu)] HYDROcodone/APAP 5-325MG [[place] 1 tab PO Q6HR PRN 12/18/24 12/18/24 History 5-325] Ondansetron Odt [Zofran Odt] 4 mg PO TID PRN 12/18/24 12/18/24 History carvediloL [Coreg] 6.25 mg PO BID 12/18/24 12/18/24 History Allergies Allergy/AdvReac Type Severity Reaction Status Date / Time adhesive tape Allergy Rash/Hives Verified 12/18/24 20:59 metronidazole [From Flagyl] Allergy Rash/Hives Verified 12/18/24 20:59 Nitroimidazoles Allergy Rash/Hives Verified 12/18/24 20:59 Physical Examination Resting comfortably in bed. No obvious distress. A focused exam of the right hip was conducted. On inspection there is a healing incision with no opening or drainage. No erythema or warmth. Incision appears to be healing appropriately. The thigh is soft and compressible. She has minimal to no pain with passive range of motion of the hip. She can perform a straight leg raise. Femoral nerve function is intact. Results Xrays of the pelvis and hip show an intact right hip replacement with no evidence of fracture or loosening - Labs Labs: Abnormal Lab Results - Last 24 Hours (Table) 12/18/24 12/18/24 12/18/24 Range/Units 17:22 17:22 21:02 WBC 14.73 H (4.50-10.00) 10*3/uL RBC 3.12 L (4.10-5.20) 10*6/uL Hgb 9.5 L (12.0-15.0) g/dL Hct 29.1 L (37.2-46.3) % Immature Gran # 0.07 H (0.00-0.04) 10*3/uL Neutrophils # 12.03 H (1.80-7.70) 10*3/uL Lymphocytes # 0.77 L (0.90-5.00) 10*3/uL Monocytes # 1.18 H (0.20-1.00) 10*3/uL Eosinophils # 0.65 H (0.04-0.35) 10*3/uL Sodium 132 L (137-145) mmol/L Glucose 124 H (74-99) mg/dL POC Glucose (mg/dL) 215 H (70-110) mg/dL Phosphorus 2.4 L (2.5-4.5) mg/dL Alkaline Phosphatase 161 H (38-126) U/L Total Protein 6.0 L (6.3-8.2) g/dL Albumin 2.9 L (3.5-5.0) g/dL TSH 6.740 H (0.465-4.680) mIU/L 12/19/24 12/19/24 Range/Units 02:25 06:33 WBC (4.50-10.00) 10*3/uL RBC (4.10-5.20) 10*6/uL Hgb (12.0-15.0) g/dL Hct (37.2-46.3) % Immature Gran # (0.00-0.04) 10*3/uL Neutrophils # (1.80-7.70) 10*3/uL Lymphocytes # (0.90-5.00) 10*3/uL Monocytes # (0.20-1.00) 10*3/uL Eosinophils # (0.04-0.35) 10*3/uL Sodium (137-145) mmol/L Glucose (74-99) mg/dL POC Glucose (mg/dL) 160 H 155 H (70-110) mg/dL Phosphorus (2.5-4.5) mg/dL Alkaline Phosphatase (38-126) U/L Total Protein (6.3-8.2) g/dL Albumin (3.5-5.0) g/dL TSH (0.465-4.680) mIU/L H & H 12/18/24 Range/Units 17:22 Hgb 9.5 L (12.0-15.0) g/dL Hct 29.1 L (37.2-46.3) % Coagulation 12/18/24 Range/Units 17:22 INR 1.1 (<1.2) Result Diagrams: 12/18/24 17:22 12/18/24 17:22 Assessment and Plan Assessment: Status post total hip replacement Multiple medical problems Pneumonia Plan: The patient's x-rays are normal and her incision appears to be healing appropriately. I have no plans for operative treatment at this time. I would recommend weightbearing as tolerated with a walker. We will follow peripherally while the patient is being treated for her pneumonia.
[2024-12-19] MEDS: AZITHROMYCIN 500 MG in SODIUM CHLORIDE 0.9% 250 ML IVPB SCH (08:14)
[2024-12-19] MEDS: IPRATROPIUM-ALBUTEROL 3 ML NEB INHALATION SCH (09:09)
[2024-12-19 11:51] LABS: Glucose,Whole Blood 204 mg/dL (70-110)
--- NOTE | 2024-12-19 15:54 | P.HPIM ---
History of Present Illness H&P Date: 12/19/24 Patient is a 74-year-old female with hypertension, hyperlipidemia, DM (insulin- dependent), obesity, CAD status post CABG, ischemic cardiomyopathy (EF 25 to 30% with AICD), asthma, and osteoarthritis here for evaluation of a fall with generalized weakness. Patient reported that she developed shortness of breath, dry cough, chills, bilateral extremity swelling and generalized weakness when she was discharged from rehab on 12/09 from [facility]. She recently had a right direct anterior total hip arthroplasty on 11/24/2024. Since then she has fallen twice at home due to missed steps. She reported that her swelling has improved gradually over the past 2 weeks. On arrival to the ED, she also reported to have altered mental status. She denied chest pain, palpitations, nausea, vomiting, abdominal pain, extremity swelling, focal weakness, recent prolonged travel. On admission: Vitals: Temp 99 Fahrenheit, HI 99, RR 16, BP 114/60, O2 saturation 89% on room air Labs: WBC 17.4, hemoglobin 9.5, sodium 132, potassium 4.4, bicarb 23, BUN 16, creatinine 0.9, glucose 124, lactic acid 1.8, calcium 8.8, phosphorus 2.4, magnesium 1.7, TSH 6.7. Liver enzymes within normal ranges. Troponin negative. proBNP 3700. Urinalysis unremarkable. Cepheid 4 Plex negative. Urine Legionella antigen negative. Imaging: Chest x-ray showed cardiomegaly with prominent pulmonary vasculature and patchy bilateral lung infiltrates. Hip pelvis x-ray showed no acute osseous abnormalities. EKG showed V paced at a rate of 87, no ST-T changes, QTc 446 MS. ED documentation reviewed. Review of systems: Pertinent positives and negatives as discussed in HPI, a complete review of systems was performed and all other systems are negative. Physical examination: Vital signs reviewed General: non toxic, no distress, appears at stated age, 2L nasal cannula Derm: no unusual rashes/lesions, warm Head: atraumatic, normocephalic, symmetric Eyes: EOMI, anicteric sclera, pupils equal round reactive to light ENT: Nose and ears atraumatic Neck: No cervical lymphadenopathy, trachea midline, supple Mouth: no lip lesion, mucus membranes moist Cardiovascular: S1S2 reg, no murmur Lungs: Babasilar rhonchi, no rales, no accessory muscle use Abdominal: soft, nondistended, nontender to palpation, no guarding Ext: muscle strength 5 out of 5 in all 4 extremities grossly, no gross muscle atrophy, no contractures, positive dorsalis pedis pulse bilateral, no edema Neuro: CN II-XI grossly intact, no gross focal neuro deficits Psych: Alert and oriented x 3, appropriate affect and mood Assessment/Plan: The patient is admitted with an anticipated greater than 2 midnight stay for evaluation of acute respiratory failure due to community-acquired pneumonia with possible HFrEF exacerbation Active: #. Acute hypoxic respiratory failure, jasmeet secondary to CAP #. Possible HFrEF exacerbation #. Asthma exacerbation #. Ischemic cardiomyopathy (EF 25 to 30% with AICD) -Patient febrile and with elevated WBC count on admission -Chest x-ray showed cardiomegaly with prominent pulmonary vasculature and patchy bilateral lung infiltrates -Supportive oxygen as need -Received one-time dose Zithromax 500 mg p.o. and Rocephin 2 g IVPB in the ED - Continue with Zithromax 500 mg p.o. and Rocephin 2 g IVPB -On Solu-Medrol 40 mg IV every 8 hours -Lasix IV 40mg every 12 hours -Repeat chest xray in the AM -Blood culture pending -Sputum culture ordered -Procalcitonin ordered -Legionella antigen negative -Monitor CBC -Pulmonology consulted by ED -Consult cardiology #. Mechanical Fall secondary to above #. Recent Right anterior total hip arthroplasty Hip pelvis x-ray showed no acute osseous abnormalities. Ortho consulted by ED Continue with IV Ketorolac for pain control #. Normocytic anemia at baseline Hemoglobin 9.5 Monitor CBC Chronic Conditions: #. Diabetes mellitus, on insulin pump -Hemoglobin A1c 7.3 in November 2024 -Hold home insulin pump -Glucose Accu-Cheks ACHS -Initiate Insulin basal rates every 6 hours as needed -Monitor for hypoglycemia #. Hypertension #. Hyperlipidemia #. Obesity #. CAD status post CABG #. Osteoarthritis Resume home aspirin, bupropion 150, buspirone 10 mg, carvedilol 12.5 mg, clopidogrel 75 mg, dapagliflozin 10 mg, ezetimibe 10 mg, fluvoxamine 100 mg, furosemide 20 mg gabapentin 300 mg, Synthroid 125 mcg, rosuvastatin 40 mg, Entresto, trazodone 50 mg DVT ppx: Lovenox 40 mg subcu daily GI prophylaxis: Pantoprazole 40 mg IVP twice daily CODE STATUS: Full Discussed with: Patient Anticipated discharge place: Home Zoila Walsh MD PGY-1 Internal Medicine Dictation was produced using [employer] dictation software. please excuse any grammatical, word or spelling errors. Past Medical History Past Medical History: Asthma, Blood Disorder, Coronary Artery Disease (CAD), Chest Pain / Angina, Heart Failure, Diabetes Mellitus, Eye Disorder, GERD/Reflux, Hyperlipidemia, Hypertension, Myocardial Infarction (CA), Musculoskeletal Disorder, Osteoarthritis (OA), Renal Disease, Skin Disorder, Supraventricular Tachycardia (SVT), Thyroid Disorder Additional Past Medical History / Comment(s): USES INSULIN PUMP. VITILIGO-FACE. ANEMIA. DIZZINESS OFF & ON, HERNIATED DISCS L1,L2,L3,L4-L5, PINCHED SCIATIC NERVE. OSTEOPENIA. HIATAL HERNIA. ELEV LFS. OCC NT BUE. MILD Neuropathy. DIABETIC RETINOPATHY. TINNITUS. FX LT ANKLE, LUMBAR BACK PAIN Last Myocardial Infarction Date:: June 2009, 01/09/18 History of Any Multi-Drug Resistant Organisms: None Reported Past Surgical History: AICD, Cardiac Ablation, Cholecystectomy, Coronary Bypass/CABG, Heart Catheterization, Heart Catheterization With Stent, Hysterectomy, Pacemaker, Tonsillectomy Additional Past Surgical History / Comment(s): 04/06/19 venogram and device interogation, TRIPLE BYPASS 2012. EXC. CATARACTS WITH LENS IMPLANTS. DEFIBRILLATOR ST.ESME 2010; DUAL AICD 04/14/18. 5 cardiac stents, LAST 06/2024. CARDIAC Ablation 1994. LIVER BIOPSY (FATTY LIVER). Past Anesthesia/Blood Transfusion Reactions: Postoperative Nausea & Vomiting (PONV) Additional Past Anesthesia/Blood Transfusion Reaction / Comment(s): DAUGHTER'S H AVE PONV. (HX nausea from iron infusions) Date of Last Stent Placement:: 2008 x2, 01/2018 X1, 06/2024 x2 Type of Cardiac Device: Permanent Pacemaker, AICD Device Placement Date:: 2017 Past Psychological History: Anxiety, Depression Smoking Status: Never smoker Past Alcohol Use History: Occasional Additional Past Alcohol Use History / Comment(s): Patient is a lifelong nonsmoker, no illicit drug use, no alcohol use. She lives at home with her . Past Drug Use History: None Reported - Past Family History Mother Family Medical History: Congestive Heart Failure (CHF), Coronary Artery Disease (CAD), Diabetes Mellitus, Deep Vein Thrombosis (DVT) Additional Family Medical History / Comment(s): HEART DISEASE, Father Family Medical History: Congestive Heart Failure (CHF) (Father at age of 78 from congestive heart failure and he also was diabetic.), Diabetes Mellitus Additional Family Medical History / Comment(s): HEART DISEASE Sister(s) Family Medical History: Cancer Additional Family Medical History / Comment(s): 2 1/2 sisters with breast cancer, 1/2 sister-thyroid cancer, 1/2 SISTER - PANCREATIC CANCER. Brother(s) Family Medical History: Coronary Artery Disease (CAD) Daughter(s) Family Medical History: Supraventricular Tachycardia (SVT) Son(s) Family Medical History: No Reported History Medications and Allergies Home Medications Medication Instructions Recorded Confirmed Type Budesonide-Formot 160-4.5 Mcg 2 puff INHALATION BID PRN 12/27/15 12/18/24 History [Symbicort 160-4.5 Mcg Inhaler] Ezetimibe [Zetia] 10 mg PO HS 12/27/15 12/18/24 History Furosemide [Lasix] 20 mg PO MOWEFR 12/27/15 12/18/24 History fluvoxaMINE MALEATE [Luvox] 300 mg PO HS 12/27/15 12/18/24 History Albuterol Inhaler [Ventolin Hfa 2 puff INHALATION RT-Q4H PRN 03/29/17 12/18/24 History Inhaler] buPROPion SR [Wellbutrin SR] 175 mg PO BID 03/29/17 12/18/24 History Baclofen [Lioresal] 20 mg PO TID PRN 01/10/18 12/18/24 History Sacubitril/Valsartan [Entresto 24 1 tab PO BID 04/11/18 12/18/24 History mg-26 mg Tablet] Insulin Aspart (For Pump) [NovoLOG 0.01 unit SQ-PUMP CONTINUOUS 05/17/18 12/18/24 History (For Pump)] Rosuvastatin Calcium [Crestor] 20 mg PO HS 06/06/18 12/18/24 History Acetaminophen Tab [Tylenol] 1,000 mg PO Q6HR PRN tab 05/03/19 12/18/24 Rx Levothyroxine Sodium [Synthroid] 112 mcg PO DAILY 07/16/22 12/18/24 History Dapagliflozin Propanediol [Farxiga] 10 mg PO DAILY 10/19/23 12/18/24 History Gabapentin [Neurontin] 300 mg PO TID 10/19/23 12/18/24 History Nitroglycerin Sl Tabs [Nitrostat] 0.4 mg SL Q5M PRN 10/19/23 12/18/24 History busPIRone HCl [Buspar] 30 mg PO DAILY 10/19/23 12/18/24 History traZODone HCL [Desyrel] 50 mg PO HS 10/19/23 12/18/24 History busPIRone HCL 15 mg PO HS 06/26/24 12/18/24 History Aspirin [Adult Low Dose Aspirin EC] 81 mg PO BID 11/17/24 12/18/24 History Clopidogrel [Plavix] 75 mg PO DAILY 11/17/24 12/18/24 History Propylene Glycol [Systane Complete] 1 drop BOTH EYES BID 11/17/24 12/18/24 History Doxycycline Monohydrate 100 mg PO BID-W/MEALS 14 Days #28 11/24/24 12/18/24 Rx cap Ergocalciferol [Vitamin D2 (1250 1,250 mcg PO PRUITT 12/18/24 12/18/24 History Mcg = 92738 Iu)] HYDROcodone/APAP 5-325MG [[place] 1 tab PO Q6HR PRN 12/18/24 12/18/24 History 5-325] Ondansetron Odt [Zofran Odt] 4 mg PO TID PRN 12/18/24 12/18/24 History carvediloL [Coreg] 6.25 mg PO BID 12/18/24 12/18/24 History Allergies Allergy/AdvReac Type Severity Reaction Status Date / Time adhesive tape Allergy Rash/Hives Verified 12/18/24 20:59 metronidazole [From Flagyl] Allergy Rash/Hives Verified 12/18/24 20:59 Nitroimidazoles Allergy Rash/Hives Verified 12/18/24 20:59 Physical Exam Vitals: Vital Signs Temp Pulse Pulse Resp BP BP Pulse Ox 12/19/24 07:58 64 110/57 12/19/24 06:00 97.9 F 12/19/24 00:41 100.8 F H 95 19 124/54 96 12/19/24 00:34 94 L 12/19/24 00:28 100.1 F H 16 88 L 12/18/24 20:38 80 12/18/24 20:30 100.3 F H 89 18 120/52 99 12/18/24 20:24 78 12/18/24 20:04 18 179/99 12/18/24 19:17 86 18 97 12/18/24 18:45 95 12/18/24 18:30 94 20 165/82 89 L 12/18/24 17:01 99.0 F 99 16 114/60 95 Intake and Output 12/18/24 12/19/24 12/19/24 22:59 06:59 14:59 Other: # Voids 1 Weight 90.718 kg Results CBC & Chem 7: 12/26/24 05:31 12/26/24 05:31 Labs: Abnormal Lab Results - Last 24 Hours (Table) 12/18/24 12/18/24 12/18/24 Range/Units 17:22 17:22 21:02 WBC 14.73 H (4.50-10.00) 10*3/uL RBC 3.12 L (4.10-5.20) 10*6/uL Hgb 9.5 L (12.0-15.0) g/dL Hct 29.1 L (37.2-46.3) % Immature Gran # 0.07 H (0.00-0.04) 10*3/uL Neutrophils # 12.03 H (1.80-7.70) 10*3/uL Lymphocytes # 0.77 L (0.90-5.00) 10*3/uL Monocytes # 1.18 H (0.20-1.00) 10*3/uL Eosinophils # 0.65 H (0.04-0.35) 10*3/uL Sodium 132 L (137-145) mmol/L Glucose 124 H (74-99) mg/dL POC Glucose (mg/dL) 215 H (70-110) mg/dL Phosphorus 2.4 L (2.5-4.5) mg/dL Alkaline Phosphatase 161 H (38-126) U/L Total Protein 6.0 L (6.3-8.2) g/dL Albumin 2.9 L (3.5-5.0) g/dL TSH 6.740 H (0.465-4.680) mIU/L 12/19/24 12/19/24 Range/Units 02:25 06:33 WBC (4.50-10.00) 10*3/uL RBC (4.10-5.20) 10*6/uL Hgb (12.0-15.0) g/dL Hct (37.2-46.3) % Immature Gran # (0.00-0.04) 10*3/uL Neutrophils # (1.80-7.70) 10*3/uL Lymphocytes # (0.90-5.00) 10*3/uL Monocytes # (0.20-1.00) 10*3/uL Eosinophils # (0.04-0.35) 10*3/uL Sodium (137-145) mmol/L Glucose (74-99) mg/dL POC Glucose (mg/dL) 160 H 155 H (70-110) mg/dL Phosphorus (2.5-4.5) mg/dL Alkaline Phosphatase (38-126) U/L Total Protein (6.3-8.2) g/dL Albumin (3.5-5.0) g/dL TSH (0.465-4.680) mIU/L Thrombosis Risk Factor Assmnt - Choose All That Apply Any of the Below Risk Factors Present?: Yes Each Factor Represents 1 point: Obesity (BMI >25) Other Risk Factors: Yes Each Risk Factor Represents 2 Points: Age 61-74 years Other congenital or acquired thrombophilia - If yes, enter type in comment: No Thrombosis Risk Factor Assessment Total Risk Factor Score: 3 Thrombosis Risk Factor Assessment Level: Moderate Risk Assessment and Plan Assessment: Attestation Attestation/ Recordist Note: Attestation to H&P, Participation (I saw and evaluated the patient with the Resident, and I reviewed and discussed the patient with the Resident and agree with the Resident's findings and plans as documented above., management reviewed and discussed), I agree with findings & plan, Provider Signature (MITCHEL ROUSE, TUYET Butler Time with Patient: Greater than 30
[2024-12-19 16:41] LABS: Glucose,Whole Blood 182 mg/dL (70-110)
[2024-12-19 20:39] LABS: Glucose,Whole Blood 233 mg/dL (70-110)
[2024-12-20 02:00] LABS: Glucose,Whole Blood 144 mg/dL (70-110)
[2024-12-20 04:11] LABS: Basophils # (A) 0.01 10*3/uL (0.00-0.10); Basophils % (A) 0.1 %; Eosinophils # (A) 0.00 10*3/uL (0.04-0.35); Eosinophils % (A) 0.0 %; HCT 29.4 % (37.2-46.3); HGB 9.3 g/dL (12.0-15.0); Lymphocytes # (A) 0.42 10*3/uL (0.90-5.00); Lymphocytes % (A) 2.6 %; MCH 29.6 pg (27.0-32.0); MCHC 31.6 g/dL (32.0-37.0); MCV 93.6 fL (80.0-97.0); Monocytes # (A) 0.44 10*3/uL (0.20-1.00); Monocytes % (A) 2.8 %; Neutrophils # (A) 15.04 10*3/uL (1.80-7.70); Neutrophils % (A) 94.0 %; Platelet Count 371 10*3/uL (140-440); RBC 3.14 10*6/uL (4.10-5.20); RDW 13.5 % (11.5-14.5); WBC 15.99 10*3/uL (4.50-10.00)
[2024-12-20 04:33] LABS: African American GFR (CKD) 64 (>60 ml/min/1.73 sqM); Anion Gap 9 mmol/L; Blood Urea Nitrogen 16 mg/dL (7-17); Calcium 9.1 mg/dL (8.4-10.2); Carbon Dioxide 27 mmol/L (22-30); Chloride 103 mmol/L (98-107); Glucose 133 mg/dL (74-99); Non-African American GFR(CKD) 56 (>60 ml/min/1.73 sqM); Potassium 4.2 mmol/L (3.5-5.1); Sodium 139 mmol/L (137-145)
[2024-12-20 06:14] LABS: Glucose,Whole Blood 164 mg/dL (70-110)
--- NOTE | 2024-12-20 07:12 | XR ---
EXAMINATION TYPE: XR chest 1V DATE OF EXAM: 12/20/2024 6:58 AM COMPARISON: 12/19/2024 CLINICAL INDICATION: Female, 74 years old with history of interval changes, TECHNIQUE: XR chest 1V view(s) obtained. FINDINGS: The heart size is normal. The pulmonary vasculature is prominent. Patchy right lung infiltrates are present. Findings are worsening IMPRESSION: 1. Worsening Patchy infiltrate predominantly within the right lung. Consider atypical pulmonary edema . Pneumonia and atypical pneumonia should be considered [facility], , 12/20/2024 7:10 AM
[2024-12-20] MEDS: ENOXAPARIN 40 MG/0.4 ML SYRINGE SQ SCH (09:38)
[2024-12-20 10:56] LABS: Glucose,Whole Blood 376 mg/dL (70-110)
--- NOTE | 2024-12-20 13:29 | P.CRDCN ---
History of Present Illness Consult date: 12/20/24 Requesting physician: Sofy Ramires Reason for Consult (text): chf Chief complaint: shortness of breath, cough, weakness History of present illness: This is a pleasant 74-year-old female patient of Dr. Villanueva with past medical history of CAD status post CABG, ischemic cardiomyopathy status post AICD, chronic systolic heart failure, hypertension, hyperlipidemia and left bundle branch block. Presented to the hospital with complaints of shortness of breath, weakness, cough and edema. The middle of last month she underwent hip replacement and was subsequently discharged to rehab. After returning home she was feeling somewhat more short of breath compared to her baseline but thought this was due to physical deconditioning. She began to have a dry hacking cough as well as lower extremity edema. She eventually came to the emergency department after she had a fall at home when her legs suddenly became weak. We have been asked to see the patient in consultation for congestive heart failure. Diagnostics -EKG: Paced rhythm -Chest x-ray: Correlation recommended for congestive heart failure or atypical pneumonia -Laboratory studies: Syncopal 15.99, hemoglobin 9.3, sodium 139, potassium 4.2, BUN 16, creatinine 1.01, NT proBNP 3700 -Home cardiac medications: Labetalol 6.25 mg p.o. twice daily, Entresto 24-26 mg 1 tablet p.o. twice daily, Lasix 20 mg Wednesday, aspirin, Plavix, Farxiga 10 mg p.o. daily and ezetimibe 10 mg p.o. nightly -Prior stress test: May 2024 showing medium size, moderate in intensity reversible perfusion defect in the mid anterior wall -Cardiac catheterization: June 2024 patent MARTIN to LAD, SVG to left circumflex and SVG to RCA critical disease involving the mid left circumflex. Stenting was performed at that time of the left circumflex as well as protected left main Review Of Systems: At the time of my exam: CONSTITUTIONAL: Denies fever or chills. HEENT: Denies blurred vision, vision changes. CARDIOVASCULAR: Denies chest pain. Denies orthopnea. Denies PND. Denies palpitations, dizziness, or syncope. RESPIRATORY: Planes of shortness of breath and cough. Denies hemoptysis. GASTROINTESTINAL: Denies abdominal pain. Denies nausea or vomiting. Denies bleeding. HEMATOLOGIC: Denies bleeding disorders. GENITOURINARY: Denies hematuria. SKIN: Denies puritis. Denies rash. PHYSICAL EXAMINATION: This is a 74-year-old female in no apparent distress at the time of my examination. VITAL SIGNS: Reviewed. HEENT: Head is atraumatic, normocephalic. Pupils are equal, round. Sclerae anicteric. Conjunctivae are clear. Mucous membranes of the mouth are moist. Neck is supple. There is no elevated jugular venous pressure. No carotid bruit is heard. CHEST EXAMINATION: Faint bibasilar crackles. No wheezes or rhonchi. Respiratio ns even and nonlabored. HEART EXAMINATION: Heart regular, positive S1 and S2. No S3. No S4. Systolic murmur ABDOMEN: Soft, nontender. Bowel sounds are heard. No organomegaly noted. EXTREMITIES: 2+ peripheral pulses with evidence of mild peripheral edema and no calf tenderness noted. NEUROLOGIC EXAMINATION: Patient is awake, alert and oriented x3. Assessment: 1. Acute exacerbation of chronic heart failure with reduced ejection fraction 2. Pneumonia 3. Ischemic cardiomyopathy 4. CAD with prior CABG and stenting of the left circumflex and left main in June 2024 Plan: From cardiology's perspective continue IV Lasix. We will obtain a 2D echo with Doppler study to assess cardiac structure and function. Repeat renal function, electrolytes and NT proBNP in the morning. Increase carvedilol to 12.5 mg p.o. twice daily. Recommendations to follow. Thank you kindly for this consultation. Nurse practitioner note has been reviewed, I agree with documented findings and plan of care. Patient was seen and examined. Past Medical History Past Medical History: Asthma, Blood Disorder, Coronary Artery Disease (CAD), Chest Pain / Angina, Heart Failure, Diabetes Mellitus, Eye Disorder, GERD/Reflux, Hyperlipidemia, Hypertension, Myocardial Infarction (NV), Musculoskeletal Disorder, Osteoarthritis (OA), Renal Disease, Skin Disorder, Supraventricular Tachycardia (SVT), Thyroid Disorder Additional Past Medical History / Comment(s): USES INSULIN PUMP. VITILIGO-FACE. ANEMIA. DIZZINESS OFF & ON, HERNIATED DISCS L1,L2,L3,L4-L5, PINCHED SCIATIC NERVE. OSTEOPENIA. HIATAL HERNIA. ELEV LFS. OCC NT BUE. MILD Neuropathy. DIABETIC RETINOPATHY. TINNITUS. FX LT ANKLE, LUMBAR BACK PAIN Last Myocardial Infarction Date:: June 2009, 01/09/18 History of Any Multi-Drug Resistant Organisms: None Reported Past Surgical History: AICD, Cardiac Ablation, Cholecystectomy, Coronary Bypass/CABG, Heart Catheterization, Heart Catheterization With Stent, Hysterectomy, Pacemaker, Tonsillectomy Additional Past Surgical History / Comment(s): 04/06/19 venogram and device interogation, TRIPLE BYPASS 2012. EXC. CATARACTS WITH LENS IMPLANTS. DEFIBRILLATOR ST.ESME 2010; DUAL AICD 04/14/18. 5 cardiac stents, LAST 06/2024. CARDIAC Ablation 1994. LIVER BIOPSY (FATTY LIVER). Past Anesthesia/Blood Transfusion Reactions: Postoperative Nausea & Vomiting (PONV) Additional Past Anesthesia/Blood Transfusion Reaction / Comment(s): DAUGHTER'S HAVE PONV. (HX nausea from iron infusions) Date of Last Stent Placement:: 2008 x2, 01/2018 X1, 06/2024 x2 Type of Cardiac Device: Permanent Pacemaker, AICD Device Placement Date:: 2017 Past Psychological History: Anxiety, Depression Smoking Status: Never smoker Past Alcohol Use History: Occasional Additional Past Alcohol Use History / Comment(s): Patient is a lifelong nonsmoker, no illicit drug use, no alcohol use. She lives at home with her . Past Drug Use History: None Reported - Past Family History Mother Family Medical History: Congestive Heart Failure (CHF), Coronary Artery Disease (CAD), Diabetes Mellitus, Deep Vein Thrombosis (DVT) Additional Family Medical History / Comment(s): HEART DISEASE, Father Family Medical History: Congestive Heart Failure (CHF) (Father at age of 78 from congestive heart failure and he also was diabetic.), Diabetes Mellitus Additional Family Medical History / Comment(s): HEART DISEASE Sister(s) Family Medical History: Cancer Additional Family Medical History / Comment(s): 2 1/2 sisters with breast cancer, 1/2 sister-thyroid cancer, 1/2 SISTER - PANCREATIC CANCER. Brother(s) Family Medical History: Coronary Artery Disease (CAD) Daughter(s) Family Medical History: Supraventricular Tachycardia (SVT) Son(s) Family Medical History: No Reported History Medications and Allergies Home Medications Medication Instructions Recorded Confirmed Type Budesonide-Formot 160-4.5 Mcg 2 puff INHALATION BID PRN 12/27/15 12/18/24 History [Symbicort 160-4.5 Mcg Inhaler] Ezetimibe [Zetia] 10 mg PO HS 12/27/15 12/18/24 History Furosemide [Lasix] 20 mg PO MOWEFR 12/27/15 12/18/24 History fluvoxaMINE MALEATE [Luvox] 300 mg PO HS 12/27/15 12/18/24 History Albuterol Inhaler [Ventolin Hfa 2 puff INHALATION RT-Q4H PRN 03/29/17 12/18/24 History Inhaler] buPROPion SR [Wellbutrin SR] 175 mg PO BID 03/29/17 12/18/24 History Baclofen [Lioresal] 20 mg PO TID PRN 01/10/18 12/18/24 History Sacubitril/Valsartan [Entresto 24 1 tab PO BID 04/11/18 12/18/24 History mg-26 mg Tablet] Insulin Aspart (For Pump) [NovoLOG 0.01 unit SQ-PUMP CONTINUOUS 05/17/18 12/18/24 History (For Pump)] Rosuvastatin Calcium [Crestor] 20 mg PO HS 06/06/18 12/18/24 History Acetaminophen Tab [Tylenol] 1,000 mg PO Q6HR PRN tab 05/03/19 12/18/24 Rx Levothyroxine Sodium [Synthroid] 112 mcg PO DAILY 07/16/22 12/18/24 History Dapagliflozin Propanediol [Farxiga] 10 mg PO DAILY 10/19/23 12/18/24 History Gabapentin [Neurontin] 300 mg PO TID 10/19/23 12/18/24 History Nitroglycerin Sl Tabs [Nitrostat] 0.4 mg SL Q5M PRN 10/19/23 12/18/24 History busPIRone HCl [Buspar] 30 mg PO DAILY 10/19/23 12/18/24 History traZODone HCL [Desyrel] 50 mg PO HS 10/19/23 12/18/24 History busPIRone HCL 15 mg PO HS 06/26/24 12/18/24 History Aspirin [Adult Low Dose Aspirin EC] 81 mg PO BID 11/17/24 12/18/24 History Clopidogrel [Plavix] 75 mg PO DAILY 11/17/24 12/18/24 History Propylene Glycol [Systane Complete] 1 drop BOTH EYES BID 11/17/24 12/18/24 History Doxycycline Monohydrate 100 mg PO BID-W/MEALS 14 Days #28 11/24/24 12/18/24 Rx cap Ergocalciferol [Vitamin D2 (1250 1,250 mcg PO PRUITT 12/18/24 12/18/24 History Mcg = 75404 Iu)] HYDROcodone/APAP 5-325MG [[place] 1 tab PO Q6HR PRN 12/18/24 12/18/24 History 5-325] Ondansetron Odt [Zofran Odt] 4 mg PO TID PRN 12/18/24 12/18/24 History carvediloL [Coreg] 6.25 mg PO BID 12/18/24 12/18/24 History Allergies Allergy/AdvReac Type Severity Reaction Status Date / Time adhesive tape Allergy Rash/Hives Verified 12/18/24 20:59 metronidazole [From Flagyl] Allergy Rash/Hives Verified 12/18/24 20:59 Nitroimidazoles Allergy Rash/Hives Verified 12/18/24 20:59 Physical Exam Vitals: Vital Signs Temp Pulse Pulse Resp BP Pulse Ox 12/20/24 12:38 74 12/20/24 12:30 72 12/20/24 08:56 73 12/20/24 08:43 70 12/20/24 08:00 71 16 12/20/24 07:57 97.7 F 71 16 128/74 95 12/20/24 01:58 97.8 F 71 19 114/63 96 12/19/24 20:29 70 12/19/24 20:18 72 12/19/24 19:42 97.8 F 68 17 138/62 95 12/19/24 16:46 72 12/19/24 16:36 68 12/19/24 14:00 65 18 121/61 98 Intake and Output 12/19/24 12/20/24 12/20/24 22:59 06:59 14:59 Output Total 2200 1100 Balance -2200 -1100 Output: Urine 2200 1100 Other: Voiding Method External Catheter External Catheter # Voids 2 # Bowel Movements 0 Weight 90 kg Results 12/20/24 03:01 12/20/24 03:01 CBC 12/20/24 Range/Units 03:01 WBC 15.99 H (4.50-10.00) 10*3/uL RBC 3.14 L (4.10-5.20) 10*6/uL Hgb 9.3 L (12.0-15.0) g/dL Hct 29.4 L (37.2-46.3) % Plt Count 371 (140-440) 10*3/uL Comprehensive Metabolic Panel 12/20/24 Range/Units 03:01 Sodium 139 (137-145) mmol/L Potassium 4.2 (3.5-5.1) mmol/L Chloride 103 (98-107) mmol/L Carbon Dioxide 27 (22-30) mmol/L BUN 16 (7-17) mg/dL Creatinine 1.01 (0.52-1.04) mg/dL Glucose 133 H (74-99) mg/dL Calcium 9.1 (8.4-10.2) mg/dL Current Medications Generic Name Dose Route Start Last Admin Trade Name Freq PRN Reason Stop Dose Admin Acetaminophen 650 mg 12/18/24 23:46 12/19/24 00:15 Acetaminophen Tab 325 Mg Tab PO 650 mg Q6HR PRN Administration Fever and/ or Pain Hydrocodone Bitart/Acetaminophen 1 each 12/18/24 23:45 12/19/24 05:55 Hydrocodone/Apap 5-325mg 1 Each Tab PO 1 each Q6HR PRN Administration Pain Albuterol/Ipratropium 3 ml 12/19/24 08:00 12/20/24 12:30 Ipratropium-Albuterol 3 Ml Neb INHALATION 3 ml RT-QID ISIDRA Administration Albuterol/Ipratropium 3 ml 12/19/24 04:29 Ipratropium-Albuterol 3 Ml Neb INHALATION RT-Q4H PRN Shortness Of Breath Or Wheezing Artificial Tears 1 drops 12/18/24 23:45 12/20/24 09:38 Artificial Tears-Hypromellose Drops 15 Ml Btl BOTH EYES 1 drops BID ISIDRA Administration Atorvastatin Calcium 40 mg 12/18/24 23:45 12/19/24 21:33 Atorvastatin 40 Mg Tab PO 40 mg HS ISIDRA Administration Bupropion HCl 150 mg 12/18/24 23:45 12/20/24 09:37 Bupropion Sr 150 Mg Tablet.Er PO 150 mg BID ISIDRA Administration Buspirone HCl 30 mg 12/19/24 09:00 12/20/24 09:38 Buspirone Hcl 10 Mg Tab PO 30 mg DAILY ISIDRA Administration Buspirone HCl 15 mg 12/18/24 23:45 12/19/24 21:33 Buspirone Hcl 5 Mg Tab PO 15 mg HS ISIDRA Administration Carvedilol 6.25 mg 12/18/24 23:45 12/20/24 09:37 Carvedilol 6.25 Mg Tab PO 6.25 mg BID-W/MEALS ISIDRA Administration Clopidogrel Bisulfate 75 mg 12/19/24 09:00 12/20/24 09:37 Clopidogrel 75 Mg Tab PO 75 mg DAILY ISIDRA Administration Dapagliflozin 10 mg 12/19/24 09:00 12/20/24 09:37 Dapagliflozin Propanediol 10 Mg Tablet PO 10 mg DAILY ISIDRA Administration Ezetimibe 10 mg 12/18/24 23:45 12/19/24 21:33 Ezetimibe 10 Mg Tab PO 10 mg HS ISIDRA Administration Enoxaparin Sodium 40 mg 12/20/24 09:00 12/20/24 09:38 Enoxaparin 40 Mg/0.4 Ml Syringe SQ 40 mg DAILY ISIDRA Administration Ergocalciferol 1,250 mcg 12/24/24 09:00 Ergocalciferol 1,250 Mcg (50,000 Iu) Capsule PO PRUITT ISIDRA Fluvoxamine Maleate 300 mg 12/18/24 23:45 12/19/24 21:33 Fluvoxamine 50 Mg Tab PO 300 mg HS ISIDRA Administration Furosemide 40 mg 12/19/24 09:00 12/20/24 09:37 Furosemide 10 Mg/Ml 4 Ml Vial IV 40 mg Q12HR ISIDRA Administration Gabapentin 300 mg 12/18/24 23:45 12/20/24 09:37 Gabapentin 300 Mg Cap PO 300 mg TID ISIDRA Administration Guaifenesin/Dextromethorphan 5 ml 12/18/24 23:45 12/19/24 05:56 Guaifenesin-Dm 100-10mg/5ml 10 Ml Cup PO 5 ml Q6HR PRN Administration Cough Ceftriaxone Sodium 2 gm/ 50 mls @ 100 mls/hr 12/19/24 20:00 12/19/24 21:33 Sodium Chloride IVPB 12/22/24 20:29 100 mls/hr Q24H ISIDRA Administration Protocol Insulin Human Lispro 0 unit 12/18/24 23:59 Insulin Lispro (Humalog) 100 Unit/Ml 10 Ml Vl SQ DAILY PRN Insulin Pump Replacement Ketorolac Tromethamine 15 mg 12/19/24 00:33 Ketorolac 15 Mg/Ml 1 Ml Vial IVP 12/23/24 23:58 Q6HR PRN Breakthrough Pain Levothyroxine Sodium 112 mcg 12/19/24 06:00 12/20/24 06:10 Levothyroxine 112 Mcg Tab PO 112 mcg DAILY@0600 ISIDRA Administration Methylprednisolone Sodium Succinate 40 mg 12/20/24 21:00 Methylprednisolone Sod Succi 40 Mg/Ml 1 Ml Vial IV Q12HR ISIDRA Miscellaneous Information 1 each 12/18/24 19:41 Pneumonia Protocol Utilized 1 Each Misc PO ONCE PRN Per Protocol Miscellaneous Information 1 each 12/18/24 23:59 Insulin Pump Basal Rates 1 Each Misc MISCELLANE Q6HR PRN Blood Sugar - High Protocol Miscellaneous Information 0 unit 12/19/24 07:30 12/20/24 12:41 Insulin Pump Meal Bolus 1 Unit Misc MISCELLANE 12.9 unit ACHS ISIDRA Administration Protocol Miscellaneous Information 0 unit 12/18/24 23:59 Insulin Pump Correction Bolus 1 Unit Misc MISCELLANE ACHS PRN Blood Sugar - High Protocol Ondansetron HCl 4 mg 12/18/24 23:46 12/19/24 00:15 Ondansetron 4 Mg/2 Ml Vial IVP 4 mg Q6HR PRN Administration Nausea And Vomiting Pantoprazole Sodium 40 mg 12/19/24 09:00 12/20/24 09:37 Pantoprazole 40 Mg/10 Ml Vial IVP 40 mg BID ISIDRA Administration Sacubitril/Valsartan 1 each 12/18/24 23:45 12/20/24 09:37 Sacubitril/Valsartan 24 Mg-26 Mg Tablet PO 1 each BID ISIDRA Administration Trazodone HCl 50 mg 12/18/24 23:45 12/19/24 21:35 Trazodone Hcl 50 Mg Tab PO 50 mg HS ISIDRA Administration Intake and Output 12/19/24 12/20/24 12/20/24 22:59 06:59 14:59 Output Total 2200 1100 Balance -2200 -1100 Output: Urine 2200 1100 Other: Voiding Method External Catheter External Catheter # Voids 2 # Bowel Movements 0 Weight 90 kg 12/20/24 03:01 12/20/24 03:01
--- NOTE | 2024-12-20 14:22 | P.PN ---
Subjective Progress Note Date: 12/20/24 Patient is a 75-year-old female with past medical history significant for hypertension, hyperlipidemia, insulin-dependent diabetes mellitus, obesity, coronary artery disease with previous CABG, ischemic cardiomyopathy with an ejection fraction of 25 to 30% with AICD, asthma, and osteoarthritis. Of note, patient recently underwent right direct anterior total hip arthroplasty on 11/24/2024. She was discharged from the hospital to [facility] for rehabilitation. While at the outside facility, developed shortness of breath, coughing, and generalized weakness. States she was released from [facility] to home last Wednesday on November. Since then, she has fallen twice while at home. Brought in by EMS yesterday evening hypoxic and confused. She was placed on supplemental oxygen. Workup in the emergency department including a chest x-ray showing patchy bilateral lung infiltrates concerning for congestive heart failure or atypical pneumonias. CBC: WBC count 14.7, hemoglobin 9.5 g/dL, platelets 374. BMP: Sodium 132, potassium 4.4, chloride 100, serum bicarb 23, BUN 16, creatinine 0.92, glucose 124. Lactic 1.8. LFTs unremarkable. Troponin less than 0.012. NT proBNP 6.74. Viral 4 Plex negative for influenza A/B, RSV, COVID. Urinalysis unremarkable for UTI. Patient currently being evaluated on the general medical floor. She is alert and oriented x 3. Endorses above menti oned complaints. Does report history of asthma. Has had increased work of breathing over the last couple weeks. Suffering from persistent nonproductive cough over the same timeframe. States her symptoms actually started at [facility]. She has had a poor appetite with occasional nausea and vomiting. She has been able to take some of her home medications. Has had intermittent fevers with a Tmax of 100.8 F. Was started on empiric antibiotics in the ED, in the form azithromycin and Rocephin. Normal saline infusing at 50 mL/h. Denies any chest pain. Does endorse unilateral right lower lower extremity edema. No heart palpitations, syncopal events, hemoptysis. Current vital signs: Temperature 100.8 F, heart rate 95 bpm, blood pressure 124/54 mmHg, nontachypneic, SpO2 recorded at 96% on 3 L/min nasal cannula. The patient is seen today December 20, 2024 and follow-up on the regular medical floor. She is currently sitting up in bed. Awake and alert in no acute distress. Feeling a bit better today compared to yesterday. Maintaining O2 saturations in the 90s on 3 L/min per nasal cannula. Chest x-ray shows continued infiltrate of the right lung with improvement in the left lung. Blood culture is coming back positive. ID pending. White count 15.9. Hemoglobin 9.3. Platelets 371. Sodium 139. Potassium 4.2. Bicarb 27. BUN 16. Creatinine 1.01. Glucose 133. She remains on DuoNeb inhalations, IV Solu- Medrol, IV diuretics. Lovenox for DVT prophylaxis. Antibiotics in the form of ceftriaxone. Objective - Vital Signs Vital signs: Vital Signs Temp 97.7 F 12/20/24 07:57 Pulse 74 12/20/24 12:38 Resp 16 12/20/24 08:00 BP 128/74 12/20/24 07:57 Pulse Ox 95 12/20/24 07:57 FiO2 Intake & Output 12/19/24 12/20/24 12/20/24 18:59 06:59 18:59 Output Total 2200 1100 Balance -2200 -1100 Weight 90 kg Output: Urine 2200 1100 Other: Voiding Method External Catheter External Catheter # Voids 2 # Bowel Movements 0 - Exam GENERAL EXAM: Alert, 74-year-old obese female, sitting up in bed, on 3 L/min nasal cannula, intermittent dry cough, comfortable in no apparent distress. Insulin pump noted. HEAD: Normocephalic and atraumatic EYES: Normal reaction of pupils, equal size. NOSE: Clear with pink turbinates. THROAT: No erythema or exudates. NECK: No masses, no JVD. CHEST: No chest wall deformity. Left chest implanted device. LUNGS: Equal air entry bilateral scattered rhonchi. No conversational dyspnea or accessory muscle use.. CVS: S1 and S2 normal with no audible murmur, regular rhythm. No extra heart sounds ABDOMEN: No hepatosplenomegaly, active bowel sounds, no guarding or rigidity. SPINE: No scoliosis or deformity SKIN: No rashes CENTRAL NERVOUS SYSTEM: No focal deficits, tone is normal in all 4 extremities. EXTREMITIES: Right anterior hip incision is approximated, pink, without dehiscence or drainage. Full range of motion. Right lower extremity pitting edema. Peripheral pulses are intact. - Labs CBC & Chem 7: 12/20/24 03:01 12/20/24 03:01 Labs: Abnormal Lab Results - Last 24 Hours (Table) 12/19/24 12/19/24 12/20/24 Range/Units 16:37 20:37 01:59 WBC (4.50-10.00) 10*3/uL RBC (4.10-5.20) 10*6/uL Hgb (12.0-15.0) g/dL Hct (37.2-46.3) % MCHC (32.0-37.0) g/dL Immature Gran # (0.00-0.04) 10*3/uL Neutrophils # (1.80-7.70) 10*3/uL Lymphocytes # (0.90-5.00) 10*3/uL Eosinophils # (0.04-0.35) 10*3/uL Glucose (74-99) mg/dL POC Glucose (mg/dL) 182 H 233 H 144 H (70-110) mg/dL 12/20/24 12/20/24 12/20/24 Range/Units 03:01 03:01 06:09 WBC 15.99 H (4.50-10.00) 10*3/uL RBC 3.14 L (4.10-5.20) 10*6/uL Hgb 9.3 L (12.0-15.0) g/dL Hct 29.4 L (37.2-46.3) % MCHC 31.6 L (32.0-37.0) g/dL Immature Gran # 0.08 H (0.00-0.04) 10*3/uL Neutrophils # 15.04 H (1.80-7.70) 10*3/uL Lymphocytes # 0.42 L (0.90-5.00) 10*3/uL Eosinophils # 0.00 L (0.04-0.35) 10*3/uL Glucose 133 H (74-99) mg/dL POC Glucose (mg/dL) 164 H (70-110) mg/dL 12/20/24 Range/Units 10:55 WBC (4.50-10.00) 10*3/uL RBC (4.10-5.20) 10*6/uL Hgb (12.0-15.0) g/dL Hct (37.2-46.3) % MCHC (32.0-37.0) g/dL Immature Gran # (0.00-0.04) 10*3/uL Neutrophils # (1.80-7.70) 10*3/uL Lymphocytes # (0.90-5.00) 10*3/uL Eosinophils # (0.04-0.35) 10*3/uL Glucose (74-99) mg/dL POC Glucose (mg/dL) 376 H (70-110) mg/dL Microbiology - Last 24 Hours (Table) 12/18/24 20:00 Blood Culture - Preliminary Blood Assessment and Plan Assessment: Healthcare associated pneumonia, bilateral Acute asthma exacerbation Acute hypoxemic respiratory failure, currently on 3 L/min nasal cannula, secondary to above; chest x-ray remarkable for cardiomegaly, possible pulmonary vascular congestion, patchy bilateral lower lung infiltrates. Prior sternotomy wires. AICD generator and leads. Concerning for atypical pneumonia or congestive heart failure. Acute febrile illness Acute leukocytosis History of right direct anterior total hip arthroplasty on November 24 Acute blood loss anemia, expected outcome of surgery Hypertension History of hyperlipidemia Insulin-dependent diabetes mellitus Obesity with a BMI of 35.4 kg/m Coronary artery disease, with history of CABG and cardiac stents History of ischemic cardiomyopathy with an ejection fraction of 25 to 30% Implanted AICD/pacemaker Hypothyroidism Anxiety/depression Plan: The patient was seen and evaluated Chest x-ray, labs and medications reviewed Cardiology consult reviewed Echocardiogram pending Stable and on 3 L nasal cannula Continue bronchodilators Continue steroids Continue IV diuretics Continue antibiotics Final blood culture ID pending We will continue to follow I have personally seen and examined the patient, performed the documentation and the assessment and plan as written. Number of minutes spent on the visit: 10 Dictation was produced using [employer] software. Please excuse any grammatical, word or spelling errors.
[2024-12-20 16:01] LABS: Glucose,Whole Blood 370 mg/dL (70-110)
--- NOTE | 2024-12-20 16:52 | P.PN ---
Subjective Progress Note Date: 12/20/24 Patient is a 74-year-old female with hypertension, hyperlipidemia, DM (insulin- dependent), obesity, CAD status post CABG, ischemic cardiomyopathy (EF 25 to 30% with AICD), asthma, and osteoarthritis here for evaluation of a fall with generalized weakness. Patient reported that she developed shortness of breath, dry cough, chills, bilateral extremity swelling and generalized weakness when she was discharged from rehab on 12/09 from [facility]. She recently had a right direct anterior total hip arthroplasty on 11/24/2024. Since then she has fallen twice at home due to missed steps. She reported that her swelling has improved gradually over the past 2 weeks. On arrival to the ED, she also reported to have altered mental status. She denied chest pain, palpitations, nausea, vomiting, abdominal pain, extremity swelling, focal weakness, recent prolonged travel. On admission: Vitals: Temp 99 Fahrenheit, AL 99, RR 16, BP 114/60, O2 saturation 89% on room air Labs: WBC 17.4, hemoglobin 9.5, sodium 132, potassium 4.4, bicarb 23, BUN 16, creatinine 0.9, glucose 124, lactic acid 1.8, calcium 8.8, phosphorus 2.4, magnesium 1.7, TSH 6.7. Liver enzymes within normal ranges. Troponin negative. proBNP 3700. Urinalysis unremarkable. Cepheid 4 Plex negative. Urine Legionella antigen negative. Imaging: Chest x-ray showed cardiomegaly with prominent pulmonary vasculature and patchy bilateral lung infiltrates. Hip pelvis x-ray showed no acute osseous abnormalities. EKG showed V paced at a rate of 87, no ST-T changes, QTc 446 MS. 12/20/2024 patient seen and examined at bedside. No acute events overnight. Still requiring oxygen support with 2 to 3 L of nasal cannula. Patient has no symptoms or complaints. Labs: WBC 15.9, hemoglobin 9.3, MCV 93.6, platelet count 371,000, sodium 139, potassium 4.2, bicarb 27, BUN 16, creatinine 1.01, glucose 133, calcium 9.1, Pro-Fortino 0.22. Blood cultures positive for staph mecA/C positive. Imaging; chest x-ray independently interpreted showing improving pulmonary infiltrates Review of systems: Pertinent positives and negatives as discussed in HPI, a complete review of systems was performed and all other systems are negative. Physical examination: Vital signs reviewed General: non toxic, no distress, appears at stated age, 2L nasal cannula Derm: no unusual rashes/lesions, warm Head: atraumatic, normocephalic, symmetric Eyes: EOMI, anicteric sclera, pupils equal round reactive to light ENT: Nose and ears atraumatic Neck: No cervical lymphadenopathy, trachea midline, supple Mouth: no lip lesion, mucus membranes moist Cardiovascular: S1S2 reg, no murmur Lungs: Babasilar rhonchi, no rales, no accessory muscle use Abdominal: soft, nondistended, nontender to palpation, no guarding Ext: muscle strength 5 out of 5 in all 4 extremities grossly, no gross muscle atrophy, no contractures, positive dorsalis pedis pulse bilateral, no edema Neuro: CN II-XI grossly intact, no gross focal neuro deficits Psych: Alert and oriented x 3, appropriate affect and mood Assessment/Plan: The patient is admitted with an anticipated greater than 2 midnight stay for evaluation of acute respiratory failure due to community-acquired pneumonia with possible HFrEF exacerbation Active: #. Acute hypoxic respiratory failure, [facility] secondary to CAP #. Possible HFrEF exacerbation #. Asthma exacerbation #. Ischemic cardiomyopathy (EF 25 to 30% with AICD) #. Leukocytosis, steroid induced -No episodes of fevers overnight. WBC elevated but not significantly to warrant infectious process -Pulmonary infiltrates improving based on today's CXR -Supportive oxygen as needed - Continue with Zithromax 500 mg p.o. and Rocephin 2 g IVPB -On Solu-Medrol 40 mg IV every 12 hours -Lasix IV 40mg every 12 hours -Daily weights -Strict InOs -Fluid restriction 1800 -Echocardiogram ordered -Blood cultures positive for staph mecA/C positive. Likely contaminant -Sputum culture ordered -Procalcitonin negative -Legionella antigen negative -Monitor CBC and renal fuction -Pulmonology consulted by ED -Consult cardiology #. Mechanical Fall secondary to above #. Recent Right anterior total hip arthroplasty Hip pelvis x-ray showed no acute osseous abnormalities. Ortho consulted by ED. No intervention recommended at this time Continue with IV Ketorolac for pain control #. Normocytic anemia at baseline Hemoglobin 9.5 Monitor CBC Chronic Conditions: #. Diabetes mellitus, on insulin pump -Hemoglobin A1c 7.3 in November 2024 -Hold home insulin pump -Glucose Accu-Cheks ACHS -Initiate Insulin basal rates every 6 hours as needed -Monitor for hypoglycemia #. Hypertension #. Hyperlipidemia #. Obesity #. CAD status post CABG #. Osteoarthritis Resume home aspirin, bupropion 150, buspirone 10 mg, carvedilol 12.5 mg, clopidogrel 75 mg, dapagliflozin 10 mg, ezetimibe 10 mg, fluvoxamine 100 mg, fur osemide 20 mg gabapentin 300 mg, Synthroid 125 mcg, rosuvastatin 40 mg, Entresto, trazodone 50 mg DVT ppx: Lovenox 40 mg subcu daily GI prophylaxis: Pantoprazole 40 mg IVP twice daily CODE STATUS: Full Discussed with: Patient Anticipated discharge place: Home Zoila Walsh MD PGY-1 Internal Medicine Dictation was produced using [employer] dictation software. please excuse any grammatical, word or spelling errors. Objective - Vital Signs Vital signs: Vital Signs Temp 97.7 F 12/20/24 07:57 Pulse 71 12/20/24 07:57 Resp 16 12/20/24 07:57 BP 128/74 12/20/24 07:57 Pulse Ox 95 12/20/24 07:57 FiO2 Intake & Output 12/19/24 12/20/24 12/20/24 18:59 06:59 18:59 Output Total 2200 1100 Balance -2200 -1100 Weight 90 kg Output: Urine 2200 1100 Other: Voiding Method External Catheter # Voids 2 # Bowel Movements 0 - Labs CBC & Chem 7: 12/20/24 03:01 12/20/24 03:01 Labs: Abnormal Lab Results - Last 24 Hours (Table) 12/19/24 12/19/24 12/19/24 Range/Units 11:47 16:37 20:37 WBC (4.50-10.00) 10*3/uL RBC (4.10-5.20) 10*6/uL Hgb (12.0-15.0) g/dL Hct (37.2-46.3) % MCHC (32.0-37.0) g/dL Immature Gran # (0.00-0.04) 10*3/uL Neutrophils # (1.80-7.70) 10*3/uL Lymphocytes # (0.90-5.00) 10*3/uL Eosinophils # (0.04-0.35) 10*3/uL Glucose (74-99) mg/dL POC Glucose (mg/dL) 204 H 182 H 233 H (70-110) mg/dL 12/20/24 12/20/24 12/20/24 Range/Units 01:59 03:01 03:01 WBC 15.99 H (4.50-10.00) 10*3/uL RBC 3.14 L (4.10-5.20) 10*6/uL Hgb 9.3 L (12.0-15.0) g/dL Hct 29.4 L (37.2-46.3) % MCHC 31.6 L (32.0-37.0) g/dL Immature Gran # 0.08 H (0.00-0.04) 10*3/uL Neutrophils # 15.04 H (1.80-7.70) 10*3/uL Lymphocytes # 0.42 L (0.90-5.00) 10*3/uL Eosinophils # 0.00 L (0.04-0.35) 10*3/uL Glucose 133 H (74-99) mg/dL POC Glucose (mg/dL) 144 H (70-110) mg/dL 12/20/24 Range/Units 06:09 WBC (4.50-10.00) 10*3/uL RBC (4.10-5.20) 10*6/uL Hgb (12.0-15.0) g/dL Hct (37.2-46.3) % MCHC (32.0-37.0) g/dL Immature Gran # (0.00-0.04) 10*3/uL Neutrophils # (1.80-7.70) 10*3/uL Lymphocytes # (0.90-5.00) 10*3/uL Eosinophils # (0.04-0.35) 10*3/uL Glucose (74-99) mg/dL POC Glucose (mg/dL) 164 H (70-110) mg/dL Microbiology - Last 24 Hours (Table) 12/18/24 20:00 Blood Culture - Preliminary Blood
[2024-12-20] MEDS: methylPREDNISolone SOD SUCCI 40 MG/ML 1 ML VIAL IV SCH (21:04)
[2024-12-20 21:10] LABS: Glucose,Whole Blood 229 mg/dL (70-110)
[2024-12-21 02:36] LABS: Glucose,Whole Blood 187 mg/dL (70-110)
[2024-12-21 03:50] LABS: Basophils # (A) 0.03 10*3/uL (0.00-0.10); Basophils % (A) 0.1 %; Eosinophils # (A) 0.00 10*3/uL (0.04-0.35); Eosinophils % (A) 0.0 %; HCT 28.6 % (37.2-46.3); HGB 9.0 g/dL (12.0-15.0); Lymphocytes # (A) 0.47 10*3/uL (0.90-5.00); Lymphocytes % (A) 2.2 %; MCH 29.2 pg (27.0-32.0); MCHC 31.5 g/dL (32.0-37.0); MCV 92.9 fL (80.0-97.0); Monocytes # (A) 0.92 10*3/uL (0.20-1.00); Monocytes % (A) 4.3 %; Neutrophils # (A) 19.50 10*3/uL (1.80-7.70); Neutrophils % (A) 92.3 %; Platelet Count 408 10*3/uL (140-440); RBC 3.08 10*6/uL (4.10-5.20); RDW 13.8 % (11.5-14.5); WBC 21.16 10*3/uL (4.50-10.00)
[2024-12-21 04:04] LABS: African American GFR (CKD) 49 (>60 ml/min/1.73 sqM); Anion Gap 9 mmol/L; Blood Urea Nitrogen 29 mg/dL (7-17); Calcium 9.3 mg/dL (8.4-10.2); Carbon Dioxide 30 mmol/L (22-30); Chloride 98 mmol/L (98-107); Glucose 172 mg/dL (74-99); Non-African American GFR(CKD) 42 (>60 ml/min/1.73 sqM); Potassium 4.5 mmol/L (3.5-5.1); Sodium 137 mmol/L (137-145)
[2024-12-21 04:11] LABS: NT-Pro-B-Type Natriuretic Pept 2180 pg/mL
[2024-12-21 06:25] LABS: Glucose,Whole Blood 227 mg/dL (70-110)
--- NOTE | 2024-12-21 10:45 | XR ---
EXAMINATION TYPE: XR chest 1V portable DATE OF EXAM: 12/21/2024 10:32 AM COMPARISON: 12/20/2024 CLINICAL INDICATION: Female, 74 years old with history of interval change; hypoxia, TECHNIQUE: XR chest 1V portable view(s) obtained. FINDINGS: The heart size is normal. The pulmonary vasculature is normal. Diffuse patchy infiltrate is present greater on the right. Findings appear stable from comparison. Pacemaker overlies left chest. IMPRESSION: 1. Patchy bilateral lung infiltrates greater on the right. Pneumonia and atypical pneumonia should be considered. Pulmonary edema should be considered. Continued follow-up is recommended. [facility], , 12/21/2024 10:43 AM
[2024-12-21 11:54] LABS: Glucose,Whole Blood 348 mg/dL (70-110)
--- NOTE | 2024-12-21 13:50 | P.PN ---
Subjective Progress Note Date: 12/21/24 Requesting physician: Sofy Ramires Reason for Consult (text): chf Chief complaint: shortness of breath, cough, weakness History of present illness: This is a pleasant 74-year-old female patient of Dr. Villanueva with past medical history of CAD status post CABG, ischemic cardiomyopathy status post AICD, ch ronic systolic heart failure, hypertension, hyperlipidemia and left bundle branch block. Presented to the hospital with complaints of shortness of breath, weakness, cough and edema. The middle of last month she underwent hip replacement and was subsequently discharged to rehab. After returning home she was feeling somewhat more short of breath compared to her baseline but thought this was due to physical deconditioning. She began to have a dry hacking cough as well as lower extremity edema. She eventually came to the emergency department after she had a fall at home when her legs suddenly became weak. We have been asked to see the patient in consultation for congestive heart failure. Diagnostics -EKG: Paced rhythm -Chest x-ray: Correlation recommended for congestive heart failure or atypical pneumonia -Laboratory studies: Syncopal 15.99, hemoglobin 9.3, sodium 139, potassium 4.2, BUN 16, creatinine 1.01, NT proBNP 3700 -Home cardiac medications: Labetalol 6.25 mg p.o. twice daily, Entresto 24-26 mg 1 tablet p.o. twice daily, Lasix 20 mg Wednesday, aspirin, Plavix, Farxiga 10 mg p.o. daily and ezetimibe 10 mg p.o. nightly -Prior stress test: May 2024 showing medium size, moderate in intensity reversible perfusion defect in the mid anterior wall -Cardiac catheterization: June 2024 patent MARTIN to LAD, SVG to left circumflex and SVG to RCA critical disease involving the mid left circumflex. Stenting was performed at that time of the left circumflex as well as protected left main 12/21/2024 Patient seen and examined. Patient continues to have some cough. She feels that her wheezing is improved. She is not bringing up sputum. She denies chest pain or chest pressure. She has been on IV Lasix 40 mg. Blood pressure 125/71, heart rate 70s, pulse ox 96% on 3 L nasal cannula. Repeat blood work reveals WBC 21, hemoglobin 9, BUN 29 creatinine 1.28. PHYSICAL EXAMINATION: This is a 74-year-old female in no apparent distress at the time of my examination. VITAL SIGNS: Reviewed. HEENT: Head is atraumatic, normocephalic. Pupils are equal, round. Sclerae anicteric. Conjunctivae are clear. Mucous membranes of the mouth are moist. Neck is supple. There is no elevated jugular venous pressure. No carotid bruit is heard. CHEST EXAMINATION: Faint bibasilar crackles. No wheezes or rhonchi. Respirations even and nonlabored. HEART EXAMINATION: Heart regular, positive S1 and S2. No S3. No S4. Systolic murmur ABDOMEN: Soft, nontender. Bowel sounds are heard. No organomegaly noted. EXTREMITIES: 2+ peripheral pulses with evidence of minimal peripheral edema and no calf tenderness noted. NEUROLOGIC EXAMINATION: Patient is awake, alert and oriented x3. Assessment: 1. Acute exacerbation of chronic heart failure with reduced ejection fraction 2. Pneumonia 3. Ischemic cardiomyopathy 4. CAD with prior CABG and stenting of the left circumflex and left main in June 2024 5. Acute kidney injury Plan: From cardiology's perspective transition IV Lasix to oral starting tomorrow We will obtain a 2D echo with Doppler study to assess cardiac structure and function. Repeat renal function, electrolytes and NT proBNP in the morning. Continue the increased carvedilol 12.5 mg p.o. twice daily. Recommendations to follow. . Nurse practitioner note has been reviewed, I agree with documented findings and plan of care. Patient was seen and examined. Objective - Vital Signs Vital signs: Vital Signs Temp 98.1 F 12/21/24 07:35 Pulse 79 12/21/24 09:01 Resp 16 12/21/24 07:50 BP 125/71 12/21/24 07:35 Pulse Ox 91 L 12/21/24 08:51 FiO2 Intake & Output 12/20/24 12/21/24 12/21/24 18:59 06:59 18:59 Intake Total 810 540 Balance 810 540 Weight 91.2 kg Intake: Intake, IV Titration 250 Amount Azithromycin 500 mg In 250 Sodium Chloride 0.9% 250 ml @ 250 mls/hr IVPB DAILY ISIDRA Rx#:[id number] Oral 560 540 Other: Voiding Method External Catheter Toilet Toilet # Voids 1 1 # Bowel Movements 1 - Labs CBC & Chem 7: 12/21/24 03:00 12/21/24 03:00 Labs: Abnormal Lab Results - Last 24 Hours (Table) 12/20/24 12/20/24 12/21/24 Range/Units 15:59 21:08 02:35 WBC (4.50-10.00) 10*3/uL RBC (4.10-5.20) 10*6/uL Hgb (12.0-15.0) g/dL Hct (37.2-46.3) % MCHC (32.0-37.0) g/dL Immature Gran # (0.00-0.04) 10*3/uL Neutrophils # (1.80-7.70) 10*3/uL Lymphocytes # (0.90-5.00) 10*3/uL Eosinophils # (0.04-0.35) 10*3/uL BUN (7-17) mg/dL Creatinine (0.52-1.04) mg/dL Glucose (74-99) mg/dL POC Glucose (mg/dL) 370 H 229 H 187 H (70-110) mg/dL 12/21/24 12/21/24 12/21/24 Range/Units 03:00 03:00 06:22 WBC 21.16 H (4.50-10.00) 10*3/uL RBC 3.08 L (4.10-5.20) 10*6/uL Hgb 9.0 L (12.0-15.0) g/dL Hct 28.6 L (37.2-46.3) % MCHC 31.5 L (32.0-37.0) g/dL Immature Gran # 0.24 H (0.00-0.04) 10*3/uL Neutrophils # 19.50 H (1.80-7.70) 10*3/uL Lymphocytes # 0.47 L (0.90-5.00) 10*3/uL Eosinophils # 0.00 L (0.04-0.35) 10*3/uL BUN 29 H (7-17) mg/dL Creatinine 1.28 H (0.52-1.04) mg/dL Glucose 172 H (74-99) mg/dL POC Glucose (mg/dL) 227 H (70-110) mg/dL Microbiology - Last 24 Hours (Table) 12/18/24 20:00 Blood Culture Gram Stain - Preliminary Blood Blood Culture - Preliminary Staphylococcus epidermidis Molecular ID
--- NOTE | 2024-12-21 13:51 | P.PN ---
Subjective Progress Note Date: 12/21/24 Patient is a 75-year-old female with past medical history significant for hypertension, hyperlipidemia, insulin-dependent diabetes mellitus, obesity, coronary artery disease with previous CABG, ischemic cardiomyopathy with an ejection fraction of 25 to 30% with AICD, asthma, and osteoarthritis. Of note, patient recently underwent right direct anterior total hip arthroplasty on 11/24/2024. She was discharged from the hospital to [facility] for rehabilitation. While at the outside facility, developed shortness of breath, coughing, and generalized weakness. States she was released from [facility] to home last Wednesday on November. Since then, she has fallen twice while at home. Brought in by EMS yesterday evening hypoxic and confused. She was placed on supplemental oxygen. Workup in the emergency department including a chest x-ray showing patchy bilateral lung infiltrates concerning for congestive heart failure or atypical pneumonias. CBC: WBC count 14.7, hemoglobin 9.5 g/dL, platelets 374. BMP: Sodium 132, potassium 4.4, chloride 100, serum bicarb 23, BUN 16, creatinine 0.92, glucose 124. Lactic 1.8. LFTs unremarkable. Troponin less than 0.012. NT proBNP 6.74. Viral 4 Plex negative for influenza A/B, RSV, COVID. Urinalysis unremarkable for UTI. Patient currently being evaluated on the general medical floor. She is alert and oriented x 3. Endorses above menti oned complaints. Does report history of asthma. Has had increased work of breathing over the last couple weeks. Suffering from persistent nonproductive cough over the same timeframe. States her symptoms actually started at [facility]. She has had a poor appetite with occasional nausea and vomiting. She has been able to take some of her home medications. Has had intermittent fevers with a Tmax of 100.8 F. Was started on empiric antibiotics in the ED, in the form azithromycin and Rocephin. Normal saline infusing at 50 mL/h. Denies any chest pain. Does endorse unilateral right lower lower extremity edema. No heart palpitations, syncopal events, hemoptysis. Current vital signs: Temperature 100.8 F, heart rate 95 bpm, blood pressure 124/54 mmHg, nontachypneic, SpO2 recorded at 96% on 3 L/min nasal cannula. The patient is seen today December 20, 2024 and follow-up on the regular medical floor. She is currently sitting up in bed. Awake and alert in no acute distress. Feeling a bit better today compared to yesterday. Maintaining O2 saturations in the 90s on 3 L/min per nasal cannula. Chest x-ray shows continued infiltrate of the right lung with improvement in the left lung. Blood culture is coming back positive. ID pending. White count 15.9. Hemoglobin 9.3. Platelets 371. Sodium 139. Potassium 4.2. Bicarb 27. BUN 16. Creatinine 1.01. Glucose 133. She remains on DuoNeb inhalations, IV Solu- Medrol, IV diuretics. Lovenox for DVT prophylaxis. Antibiotics in the form of ceftriaxone. The patient is seen today December 21, 2024 in follow-up on the regular medical floor. She is currently sitting up in a chair. Awake and alert in no acute distress. Maintaining O2 saturations in the 90s on 3 L/min per nasal cannula. She has been afebrile. Hemodynamically stable. Blood cultures showing staph epidermidis, most likely contaminant. White count 21.1. Hemoglobin 9.0. Platelets 409. Sodium 137. Potassium 4.5. Bicarb 30. BUN 29. Creatinine 1. 28. Glucose 172. proBNP 2180. She remains on DuoNeb inhalations, Solu-Medrol. Antibiotics in the form of ceftriaxone. Lovenox for DVT prophylaxis. Remains on IV diuretics. No accurate intake and output recorded. Chest x-ray showing similar findings with basilar infiltrates right greater than left. Objective - Vital Signs Vital signs: Vital Signs Temp 98.1 F 12/21/24 07:35 Pulse 80 12/21/24 12:01 Resp 16 12/21/24 07:50 BP 125/71 12/21/24 07:35 Pulse Ox 91 L 12/21/24 08:51 FiO2 Intake & Output 12/20/24 12/21/24 12/21/24 18:59 06:59 18:59 Intake Total 810 540 Balance 810 540 Weight 91.2 kg Intake: Intake, IV Titration 250 Amount Azithromycin 500 mg In 250 Sodium Chloride 0.9% 250 ml @ 250 mls/hr IVPB DAILY ISIDRA Rx#:[id number] Oral 560 540 Other: Voiding Method External Catheter Toilet Toilet # Voids 1 1 # Bowel Movements 1 - Exam GENERAL EXAM: Alert, pleasant 74-year-old obese female, up in a chair, on 3 L/min nasal cannula, comfortable in no apparent distress. Insulin pump noted. HEAD: Normocephalic and atraumatic EYES: Normal reaction of pupils, equal size. NOSE: Clear with pink turbinates. THROAT: No erythema or exudates. NECK: No masses, no JVD. CHEST: No chest wall deformity. Left chest implanted device. LUNGS: Equal air entry crackles in the posterior bases right greater than left. No conversational dyspnea or accessory muscle use.. CVS: S1 and S2 normal with no audible murmur, regular rhythm. No extra heart sounds ABDOMEN: No hepatosplenomegaly, active bowel sounds, no guarding or rigidity. SPINE: No scoliosis or deformity SKIN: No rashes CENTRAL NERVOUS SYSTEM: No focal deficits, tone is normal in all 4 extremities. EXTREMITIES: Right anterior hip incision is approximated, pink, without dehiscence or drainage. Full range of motion. Right lower extremity pitting edema. Peripheral pulses are intact. - Labs CBC & Chem 7: 12/21/24 03:00 12/21/24 03:00 Labs: Abnormal Lab Results - Last 24 Hours (Table) 12/20/24 12/20/24 12/21/24 Range/Units 15:59 21:08 02:35 WBC (4.50-10.00) 10*3/uL RBC (4.10-5.20) 10*6/uL Hgb (12.0-15.0) g/dL Hct (37.2-46.3) % MCHC (32.0-37.0) g/dL Immature Gran # (0.00-0.04) 10*3/uL Neutrophils # (1.80-7.70) 10*3/uL Lymphocytes # (0.90-5.00) 10*3/uL Eosinophils # (0.04-0.35) 10*3/uL BUN (7-17) mg/dL Creatinine (0.52-1.04) mg/dL Glucose (74-99) mg/dL POC Glucose (mg/dL) 370 H 229 H 187 H (70-110) mg/dL 12/21/24 12/21/24 12/21/24 Range/Units 03:00 03:00 06:22 WBC 21.16 H (4.50-10.00) 10*3/uL RBC 3.08 L (4.10-5.20) 10*6/uL Hgb 9.0 L (12.0-15.0) g/dL Hct 28.6 L (37.2-46.3) % MCHC 31.5 L (32.0-37.0) g/dL Immature Gran # 0.24 H (0.00-0.04) 10*3/uL Neutrophils # 19.50 H (1.80-7.70) 10*3/uL Lymphocytes # 0.47 L (0.90-5.00) 10*3/uL Eosinophils # 0.00 L (0.04-0.35) 10*3/uL BUN 29 H (7-17) mg/dL Creatinine 1.28 H (0.52-1.04) mg/dL Glucose 172 H (74-99) mg/dL POC Glucose (mg/dL) 227 H (70-110) mg/dL 12/21/24 Range/Units 11:52 WBC (4.50-10.00) 10*3/uL RBC (4.10-5.20) 10*6/uL Hgb (12.0-15.0) g/dL Hct (37.2-46.3) % MCHC (32.0-37.0) g/dL Immature Gran # (0.00-0.04) 10*3/uL Neutrophils # (1.80-7.70) 10*3/uL Lymphocytes # (0.90-5.00) 10*3/uL Eosinophils # (0.04-0.35) 10*3/uL BUN (7-17) mg/dL Creatinine (0.52-1.04) mg/dL Glucose (74-99) mg/dL POC Glucose (mg/dL) 348 H (70-110) mg/dL Microbiology - Last 24 Hours (Table) 12/18/24 20:00 Blood Culture Gram Stain - Preliminary Blood Blood Culture - Preliminary Staphylococcus epidermidis Molecular ID Assessment and Plan Assessment: Healthcare associated pneumonia, bilateral Acute asthma exacerbation Acute hypoxemic respiratory failure, currently on 3 L/min nasal cannula, secondary to above; chest x-ray remarkable for cardiomegaly, possible pulmonary vascular congestion, patchy bilateral lower lung infiltrates. Prior sternotomy wires. AICD generator and leads. Concerning for atypical pneumonia or congestive heart failure. Acute febrile illness Acute leukocytosis History of right direct anterior total hip arthroplasty on November 24 Acute blood loss anemia, expected outcome of surgery Hypertension History of hyperlipidemia Insulin-dependent diabetes mellitus Obesity with a BMI of 35.4 kg/m Coronary artery disease, with history of CABG and cardiac stents History of ischemic cardiomyopathy with an ejection fraction of 25 to 30% Implanted AICD/pacemaker Hypothyroidism Anxiety/depression Plan: The patient was seen and evaluated Chest x-ray, labs and medications reviewed Echocardiogram still pending Stable and on 3 L nasal cannula Continue bronchodilators Continue steroids Continue IV diuretics Continue antibiotics Final blood culture ID pending We will continue to follow I have personally seen and examined the patient, performed the documentation and the assessment and plan as written. Number of minutes spent on the visit: 10 Dictation was produced using [employer] dictation software. Please excuse any grammatical, word or spelling errors.
[2024-12-21 17:20] LABS: Glucose,Whole Blood 254 mg/dL (70-110)
--- NOTE | 2024-12-21 17:44 | P.PN ---
Subjective Progress Note Date: 12/21/24 Patient is a 74-year-old female with hypertension, hyperlipidemia, DM (insulin- dependent), obesity, CAD status post CABG, ischemic cardiomyopathy (EF 25 to 30% with AICD), asthma, and osteoarthritis here for evaluation of a fall with generalized weakness. Patient reported that she developed shortness of breath, dry cough, chills, bilateral extremity swelling and generalized weakness when she was discharged from rehab on 12/[address] [facility]. She recently had a right direct anterior total hip arthroplasty on 11/24/2024. Since then she has fallen twice at home due to missed steps. She reported that her swelling has improved gradually over the past 2 weeks. On arrival to the ED, she also reported to have altered mental status. She denied chest pain, palpitations, nausea, vomiting, abdominal pain, extremity swelling, focal weakness, recent prolonged travel. On admission: Vitals: Temp 99 Fahrenheit, KS 99, RR 16, BP 114/60, O2 saturation 89% on room air Labs: WBC 17.4, hemoglobin 9.5, sodium 132, potassium 4.4, bicarb 23, BUN 16, creatinine 0.9, glucose 124, lactic acid 1.8, calcium 8.8, phosphorus 2.4, magnesium 1.7, TSH 6.7. Liver enzymes within normal ranges. Troponin negative. proBNP 3700. Urinalysis unremarkable. Cepheid 4 Plex negative. Urine Legionella antigen negative. Imaging: Chest x-ray showed cardiomegaly with prominent pulmonary vasculature and patchy bilateral lung infiltrates. Hip pelvis x-ray showed no acute osseous abnormalities. EKG showed V paced at a rate of 87, no ST-T changes, QTc 446 MS. 12/20/2024 patient seen and examined at bedside. No acute events overnight. Still requiring oxygen support with 2 to 3 L of nasal cannula. Patient has no symptoms or complaints. Labs: WBC 15.9, hemoglobin 9.3, MCV 93.6, platelet count 371,000, sodium 139, potassium 4.2, bicarb 27, BUN 16, creatinine 1.01, glucose 133, calcium 9.1, Pro-Fortino 0.22. Blood cultures positive for staph mecA/C positive. Imaging; chest x-ray independently interpreted showing improving pulmonary infiltrates 12/21/2024 patient seen and examined at bedside. No acute events overnight. Patient still requiring 2-3L oxygen. Labs: WBC 21.16, hemoglobin 9, MCV 92.9, platelet count 408,000, sodium 137, potassium 4.5, bicarb 30, BUN 29, creatinine 1.28, glucose 172, calcium 9.3, BNP 2180. Blood cultures positive for Staphylococcus epidermidis MEC A positive. Repeat CXR shows minimal improvement Review of systems: Pertinent positives and negatives as discussed in HPI, a complete review of systems was performed and all other systems are negative. Physical examination: Vital signs reviewed General: non toxic, no distress, appears at stated age, 3L nasal cannula Derm: no unusual rashes/lesions, warm Head: atraumatic, normocephalic, symmetric Eyes: EOMI, anicteric sclera, pupils equal round reactive to light ENT: Nose and ears atraumatic Neck: No cervical lymphadenopathy, trachea midline, supple Mouth: no lip lesion, mucus membranes moist Cardiovascular: S1S2 reg, no murmur Lungs: Babasilar rhonchi, no rales, no accessory muscle use Abdominal: soft, nondistended, nontender to palpation, no guarding Ext: muscle strength 5 out of 5 in all 4 extremities grossly, no gross muscle atrophy, no contractures, positive dorsalis pedis pulse bilateral, trace bilateral lower extremity edema Neuro: CN II-XI grossly intact, no gross focal neuro deficits Psych: Alert and oriented x 3, appropriate affect and mood Assessment/Plan: The patient is admitted with an anticipated greater than 2 midnight stay for evaluation of acute respiratory failure due to HFrEF exacerbation Active: #. Acute hypoxic respiratory failure, HFrEF exacerbation with possible CAP #. Asthma exacerbation #. Ischemic cardiomyopathy (EF 25 to 30% with AICD) #. Leukocytosis -No episodes of fevers overnight. WBC elevated but not significantly to warrant infectious process -Pulmonary infiltrates improving based on today's CXR -Supportive oxygen as needed - Continue with Zithromax 500 mg p.o. and Rocephin 2 g IVPB -On Solu-Medrol 40 mg IV every 12 hours -Lasix IV 40mg daily -Daily weights -Strict InOs -Fluid restriction 1800 -Echocardiogram ordered -Blood cultures positive for staph mecA/C positive. Likely contaminant. Due to patient's elevated WBC and CXR findings, ID is consulted -Sputum culture ordered -Procalcitonin negative -Legionella antigen negative -Monitor CBC and renal fuction -Pulmonology consulted by ED -Consult cardiology #. Acute Kidney Injury, prerenal - BUN 29, creatinine 1.2 -Monitor UO -Avoid nephrotoxic agents -No IV fluids for now due to CHF exacerbation #. Mechanical Fall secondary to above #. Recent Right anterior total hip arthroplasty Hip pelvis x-ray showed no acute osseous abnormalities. Ortho consulted by ED. No intervention recommended at this time D/c Ketorolac IV due to BEV. Continue with PO norco prn #. Normocytic anemia at baseline Hemoglobin 9.5 Monitor CBC Chronic Conditions: #. Diabetes mellitus, on insulin pump -Hemoglobin A1c 7.3 in November 2024 -Hold home insulin pump -Glucose Accu-Cheks ACHS -Initiate Insulin basal rates every 6 hours as needed -Monitor for hypoglycemia #. Hypertension #. Hyperlipidemia #. Obesity #. CAD status post CABG #. Osteoarthritis Resume home aspirin, bupropion 150, buspirone 10 mg, carvedilol 12.5 mg, clop idogrel 75 mg, dapagliflozin 10 mg, ezetimibe 10 mg, fluvoxamine 100 mg, furosemide 20 mg gabapentin 300 mg, Synthroid 125 mcg, rosuvastatin 40 mg, Entresto, trazodone 50 mg DVT ppx: Lovenox 40 mg subcu daily GI prophylaxis: Pantoprazole 40 mg IVP twice daily CODE STATUS: Full Discussed with: Patient Anticipated discharge place: Home Zoila Walsh MD PGY-1 Internal Medicine Dictation was produced using [employer] dictation software. please excuse any grammatical, word or spelling errors. Attestation: I have seen and examined this patient with my resident, assessment and plan discussed with the resident, agree with assessment and plan as written above. Dr. Godfrey Objective - Vital Signs Vital signs: Vital Signs Temp 98.0 F 12/21/24 00:45 Pulse 71 12/21/24 00:45 Resp 16 12/21/24 00:45 BP 134/69 12/21/24 00:45 Pulse Ox 95 12/21/24 00:45 FiO2 Intake & Output 12/20/24 12/21/24 12/21/24 18:59 06:59 18:59 Intake Total 810 540 Balance 810 540 Weight 91.2 kg Intake: Intake, IV Titration 250 Amount Azithromycin 500 mg In 250 Sodium Chloride 0.9% 250 ml @ 250 mls/hr IVPB DAILY [facility] Rx#:[id number] Oral 560 540 Other: Voiding Method External Catheter Toilet # Voids 1 1 # Bowel Movements 1 - Labs CBC & Chem 7: 12/21/24 03:00 12/21/24 03:00 Labs: Abnormal Lab Results - Last 24 Hours (Table) 12/20/24 12/20/24 12/20/24 Range/Units 10:55 15:59 21:08 WBC (4.50-10.00) 10*3/uL RBC (4.10-5.20) 10*6/uL Hgb (12.0-15.0) g/dL Hct (37.2-46.3) % MCHC (32.0-37.0) g/dL Immature Gran # (0.00-0.04) 10*3/uL Neutrophils # (1.80-7.70) 10*3/uL Lymphocytes # (0.90-5.00) 10*3/uL Eosinophils # (0.04-0.35) 10*3/uL BUN (7-17) mg/dL Creatinine (0.52-1.04) mg/dL Glucose (74-99) mg/dL POC Glucose (mg/dL) 376 H 370 H 229 H (70-110) mg/dL 12/21/24 12/21/24 12/21/24 Range/Units 02:35 03:00 03:00 WBC 21.16 H (4.50-10.00) 10*3/uL RBC 3.08 L (4.10-5.20) 10*6/uL Hgb 9.0 L (12.0-15.0) g/dL Hct 28.6 L (37.2-46.3) % MCHC 31.5 L (32.0-37.0) g/dL Immature Gran # 0.24 H (0.00-0.04) 10*3/uL Neutrophils # 19.50 H (1.80-7.70) 10*3/uL Lymphocytes # 0.47 L (0.90-5.00) 10*3/uL Eosinophils # 0.00 L (0.04-0.35) 10*3/uL BUN 29 H (7-17) mg/dL Creatinine 1.28 H (0.52-1.04) mg/dL Glucose 172 H (74-99) mg/dL POC Glucose (mg/dL) 187 H (70-110) mg/dL 12/21/24 Range/Units 06:22 WBC (4.50-10.00) 10*3/uL RBC (4.10-5.20) 10*6/uL Hgb (12.0-15.0) g/dL Hct (37.2-46.3) % MCHC (32.0-37.0) g/dL Immature Gran # (0.00-0.04) 10*3/uL Neutrophils # (1.80-7.70) 10*3/uL Lymphocytes # (0.90-5.00) 10*3/uL Eosinophils # (0.04-0.35) 10*3/uL BUN (7-17) mg/dL Creatinine (0.52-1.04) mg/dL Glucose (74-99) mg/dL POC Glucose (mg/dL) 227 H (70-110) mg/dL Microbiology - Last 24 Hours (Table) 12/18/24 20:00 Blood Culture Gram Stain - Preliminary Blood Blood Culture - Preliminary Molecular ID
[2024-12-21 20:25] LABS: Glucose,Whole Blood 308 mg/dL (70-110)
[2024-12-22 01:30] LABS: Glucose,Whole Blood 158 mg/dL (70-110)
[2024-12-22 03:17] LABS: Basophils # (A) 0.03 10*3/uL (0.00-0.10); Basophils % (A) 0.2 %; Eosinophils # (A) 0.00 10*3/uL (0.04-0.35); Eosinophils % (A) 0.0 %; HCT 29.9 % (37.2-46.3); HGB 9.4 g/dL (12.0-15.0); Lymphocytes # (A) 0.52 10*3/uL (0.90-5.00); Lymphocytes % (A) 2.9 %; MCH 28.9 pg (27.0-32.0); MCHC 31.4 g/dL (32.0-37.0); MCV 92.0 fL (80.0-97.0); Monocytes # (A) 0.90 10*3/uL (0.20-1.00); Monocytes % (A) 5.0 %; Neutrophils # (A) 16.21 10*3/uL (1.80-7.70); Neutrophils % (A) 90.2 %; Platelet Count 386 10*3/uL (140-440); RBC 3.25 10*6/uL (4.10-5.20); RDW 13.7 % (11.5-14.5); WBC 17.96 10*3/uL (4.50-10.00)
[2024-12-22 03:56] LABS: African American GFR (CKD) 61 (>60 ml/min/1.73 sqM); Anion Gap 8 mmol/L; Blood Urea Nitrogen 37 mg/dL (7-17); Calcium 8.8 mg/dL (8.4-10.2); Carbon Dioxide 28 mmol/L (22-30); Chloride 100 mmol/L (98-107); Glucose 176 mg/dL (74-99); Non-African American GFR(CKD) 53 (>60 ml/min/1.73 sqM); Potassium 4.7 mmol/L (3.5-5.1); Sodium 136 mmol/L (137-145)
[2024-12-22] MEDS: INSULIN LISPRO (HumaLOG) 100 UNIT/ML 10 mL VL SQ SCH (04:06)
[2024-12-22 06:34] LABS: Glucose,Whole Blood 268 mg/dL (70-110)
[2024-12-22] MEDS ORDERED: FUROSEMIDE 10 MG/ML 4 ML VIAL IV SCH (09:00)
[2024-12-22] MEDS: FUROSEMIDE 20 MG TAB PO SCH (09:09)
--- NOTE | 2024-12-22 10:14 | P.CONS ---
History of Present Illness - Reason for Consult Consult date: 12/21/24 Positive blood culture Requesting physician: Zoila Walsh - Chief Complaint Weakness and fall x few days on admission - History of Present Illness Patient is a 74-year-old female with a past medical history significant for Asthma, Blood Disorder, Coronary Artery Disease (CAD), Chest Pain / Angina, Heart Failure, Diabetes Mellitus, Eye Disorder, GERD/Reflux, H yperlipidemia, Hypertension, Myocardial Infarction (CO), Musculoskeletal Disorder, Osteoarthritis (OA), Renal Disease, Skin Disorder, Supraventricular Tachycardia (SVT), Thyroid Disorder who recently did have a right hip replacement patient subsequently was discharged to the rehab from the patient w as discharged on 12/09/2024 patient is now presenting to the hospital after the patient did have a fall and generalized weakness patient mention she did fall twice due to missteps patient was also complaining of mental status changes on arrival to the ER increasing shortness of breath and she did have a cough which is moderate intensity but not bringing up any sputum patient denies having any nausea or vomiting no choking on the food no abdominal pain no diarrhea patient mentioning right hip incision is currently healed he denies any significant pain to the right hip area and did not have any open wound patient presentation to the hospital did have low-grade fever 100.3 F no fever have been called since then patient was mildly tachycardic with a heart rate of 99 she was not hypotensive mildly hypoxic currently on 4 L nasal cannula oxygen patient did have a white count of 14.73 which is up to 21.16 today BUN and creatinine are mildly elevated liver enzymes are normal urine has been negative influenza RSV COVID testing negative patient did have a chest x-ray on admission clinical correlation for congestive heart failure or atypical pneumonia patient is currently being treated with ceftriaxone and Solu-Medrol blood cultures came back positive with staph epi prompting this consultation Review of Systems Positive point and negatives has been mentioned in the HPI, complete review of systems was performed and all other systems are negative Past Medical History Past Medical History: Asthma, Blood Disorder, Coronary Artery Disease (CAD), Chest Pain / Angina, Heart Failure, Diabetes Mellitus, Eye Disorder, GERD/Re flux, Hyperlipidemia, Hypertension, Myocardial Infarction (CO), Musculoskeletal Disorder, Osteoarthritis (OA), Renal Disease, Skin Disorder, Supraventricular Tachycardia (SVT), Thyroid Disorder Additional Past Medical History / Comment(s): USES INSULIN PUMP. VITILIGO-FACE. ANEMIA. DIZZINESS OFF & ON, HERNIATED DISCS L1,L2,L3,L4-L5, PINCHED SCIATIC NERVE. OSTEOPENIA. HIATAL HERNIA. ELEV LFS. OCC NT BUE. MILD Neuropathy. DIABETIC RETINOPATHY. TINNITUS. FX LT ANKLE, LUMBAR BACK PAIN Last Myocardial Infarction Date:: June 2009, 01/09/18 History of Any Multi-Drug Resistant Organisms: None Reported Past Surgical History: AICD, Cardiac Ablation, Cholecystectomy, Coronary Bypass/CABG, Heart Catheterization, Heart Catheterization With Stent, Hysterectomy, Pacemaker, Tonsillectomy Additional Past Surgical History / Comment(s): 04/06/19 venogram and device inte rogation, TRIPLE BYPASS 2012. EXC. CATARACTS WITH LENS IMPLANTS. DEFIBRILLATOR ST.ESME 2010; DUAL AICD 04/14/18. 5 cardiac stents, LAST 06/2024. CARDIAC Ablation 1994. LIVER BIOPSY (FATTY LIVER). Past Anesthesia/Blood Transfusion Reactions: Postoperative Nausea & Vomiting (PONV) Additional Past Anesthesia/Blood Transfusion Reaction / Comm: DAUGHTER'S HAVE PONV. (HX nausea from iron infusions) Date of Last Stent Placement:: 2008 x2, 01/2018 X1, 06/2024 x2 Type of Cardiac Device: Permanent Pacemaker, AICD Device Placement Date:: 2017 Past Psychological History: Anxiety, Depression Smoking Status: Never smoker Past Alcohol Use History: Occasional Additional Past Alcohol Use History / Comment(s): Patient is a lifelong nonsmoker, no illicit drug use, no alcohol use. She lives at home with her . Past Drug Use History: None Reported - Past Family History Mother Family Medical History: Congestive Heart Failure (CHF), Coronary Artery Disease (CAD), Diabetes Mellitus, Deep Vein Thrombosis (DVT) Additional Family Medical History / Comment(s): HEART DISEASE, Father Family Medical History: Congestive Heart Failure (CHF) (Father at age of 78 from congestive heart failure and he also was diabetic.), Diabetes Mellitus Additional Family Medical History / Comment(s): HEART DISEASE Sister(s) Family Medical History: Cancer Additional Family Medical History / Comment(s): 2 1/2 sisters with breast cancer, 1/2 sister-thyroid cancer, 1/2 SISTER - PANCREATIC CANCER. Brother(s) Family Medical History: Coronary Artery Disease (CAD) Daughter(s) Family Medical History: Supraventricular Tachycardia (SVT) Son(s) Family Medical History: No Reported History Medications and Allergies Home Medications Medication Instructions Recorded Confirmed Type Budesonide-Formot 160-4.5 Mcg 2 puff INHALATION BID PRN 12/27/15 12/18/24 History [Symbicort 160-4.5 Mcg Inhaler] Ezetimibe [Zetia] 10 mg PO HS 12/27/15 12/18/24 History Furosemide [Lasix] 20 mg PO MOWEFR 12/27/15 12/18/24 History fluvoxaMINE MALEATE [Luvox] 300 mg PO HS 12/27/15 12/18/24 History Albuterol Inhaler [Ventolin Hfa 2 puff INHALATION RT-Q4H PRN 03/29/17 12/18/24 History Inhaler] buPROPion SR [Wellbutrin SR] 175 mg PO BID 03/29/17 12/18/24 History Baclofen [Lioresal] 20 mg PO TID PRN 01/10/18 12/18/24 History Sacubitril/Valsartan [Entresto 24 1 tab PO BID 04/11/18 12/18/24 History mg-26 mg Tablet] Insulin Aspart (For Pump) [NovoLOG 0.01 unit SQ-PUMP CONTINUOUS 05/17/18 12/18/24 History (For Pump)] Rosuvastatin Calcium [Crestor] 20 mg PO HS 06/06/18 12/18/24 History Acetaminophen Tab [Tylenol] 1,000 mg PO Q6HR PRN tab 05/03/19 12/18/24 Rx Levothyroxine Sodium [Synthroid] 112 mcg PO DAILY 07/16/22 12/18/24 History Dapagliflozin Propanediol [Farxiga] 10 mg PO DAILY 10/19/23 12/18/24 History Gabapentin [Neurontin] 300 mg PO TID 10/19/23 12/18/24 History Nitroglycerin Sl Tabs [Nitrostat] 0.4 mg SL Q5M PRN 10/19/23 12/18/24 History busPIRone HCl [Buspar] 30 mg PO DAILY 10/19/23 12/18/24 History traZODone HCL [Desyrel] 50 mg PO HS 10/19/23 12/18/24 History busPIRone HCL 15 mg PO HS 06/26/24 12/18/24 History Aspirin [Adult Low Dose Aspirin EC] 81 mg PO BID 11/17/24 12/18/24 History Clopidogrel [Plavix] 75 mg PO DAILY 11/17/24 12/18/24 History Propylene Glycol [Systane Complete] 1 drop BOTH EYES BID 11/17/24 12/18/24 History Doxycycline Monohydrate 100 mg PO BID-W/MEALS 14 Days #28 11/24/24 12/18/24 Rx cap Ergocalciferol [Vitamin D2 (1250 1,250 mcg PO PRUITT 12/18/24 12/18/24 History Mcg = 66585 Iu)] HYDROcodone/APAP 5-325MG [Andale 1 tab PO Q6HR PRN 12/18/24 12/18/24 History 5-325] Ondansetron Odt [Zofran Odt] 4 mg PO TID PRN 12/18/24 12/18/24 History carvediloL [Coreg] 6.25 mg PO BID 12/18/24 12/18/24 History Allergies Allergy/AdvReac Type Severity Reaction Status Date / Time adhesive tape Allergy Rash/Hives Verified 12/18/24 20:59 metronidazole [From Flagyl] Allergy Rash/Hives Verified 12/18/24 20:59 Nitroimidazoles Allergy Rash/Hives Verified 12/18/24 20:59 Physical Exam Vitals: Vital Signs Temp Pulse Pulse Resp BP BP Pulse Ox 12/21/24 12:01 80 12/21/24 11:51 76 12/21/24 09:01 79 12/21/24 08:51 78 91 L 12/21/24 07:50 71 16 12/21/24 07:35 98.1 F 73 16 125/71 96 12/21/24 00:45 98.0 F 71 16 134/69 95 12/20/24 21:51 74 18 12/20/24 21:45 72 18 12/20/24 19:40 97.7 F 83 16 144/61 92 L 12/20/24 15:19 75 12/20/24 15:11 75 12/20/24 14:00 97.7 F 81 16 96/60 91 L Intake and Output 12/20/24 12/21/24 12/21/24 22:59 06:59 14:59 Intake Total 1350 Balance 1350 Intake: Intake, IV Titration 250 Amount Azithromycin 500 mg In 250 Sodium Chloride 0.9% 250 ml @ 250 mls/hr IVPB DAILY [facility] Rx#:[id number] Oral 1100 Other: Voiding Method Toilet Toilet # Voids 1 Weight 91.2 kg GENERAL DESCRIPTION: Elderly female up in the chair no distress. No tachypnea or accessory muscle of respiration use. HEENT: Shows Pallor , no scleral icterus. Oral mucous membrane is dry. NECK: Trachea central, no thyromegaly. LUNGS: Unlabored breathing. coarse breath sounds bilaterally HEART: S1, S2, regular rate and rhythm. No loud murmur ABDOMEN: Soft, no tenderness , guarding or rigidity, no organomegaly EXTREMITIES: Right hip incision is currently healed with no swelling redness or drainage SKIN: No rash, no masses palpable. NEUROLOGICAL: The patient is awake, alert, oriented x3, mood and affect normal. Results CBC & Chem 7: 12/22/24 02:24 12/22/24 02:24 Labs: Abnormal Lab Results - Last 24 Hours (Table) 12/20/24 12/20/24 12/21/24 Range/Units 15:59 21:08 02:35 WBC (4.50-10.00) 10*3/uL RBC (4.10-5.20) 10*6/uL Hgb (12.0-15.0) g/dL Hct (37.2-46.3) % MCHC (32.0-37.0) g/dL Immature Gran # (0.00-0.04) 10*3/uL Neutrophils # (1.80-7.70) 10*3/uL Lymphocytes # (0.90-5.00) 10*3/uL Eosinophils # (0.04-0.35) 10*3/uL BUN (7-17) mg/dL Creatinine (0.52-1.04) mg/dL Glucose (74-99) mg/dL POC Glucose (mg/dL) 370 H 229 H 187 H (70-110) mg/dL 12/21/24 12/21/24 12/21/24 Range/Units 03:00 03:00 06:22 WBC 21.16 H (4.50-10.00) 10*3/uL RBC 3.08 L (4.10-5.20) 10*6/uL Hgb 9.0 L (12.0-15.0) g/dL Hct 28.6 L (37.2-46.3) % MCHC 31.5 L (32.0-37.0) g/dL Immature Gran # 0.24 H (0.00-0.04) 10*3/uL Neutrophils # 19.50 H (1.80-7.70) 10*3/uL Lymphocytes # 0.47 L (0.90-5.00) 10*3/uL Eosinophils # 0.00 L (0.04-0.35) 10*3/uL BUN 29 H (7-17) mg/dL Creatinine 1.28 H (0.52-1.04) mg/dL Glucose 172 H (74-99) mg/dL POC Glucose (mg/dL) 227 H (70-110) mg/dL 12/21/24 Range/Units 11:52 WBC (4.50-10.00) 10*3/uL RBC (4.10-5.20) 10*6/uL Hgb (12.0-15.0) g/dL Hct (37.2-46.3) % MCHC (32.0-37.0) g/dL Immature Gran # (0.00-0.04) 10*3/uL Neutrophils # (1.80-7.70) 10*3/uL Lymphocytes # (0.90-5.00) 10*3/uL Eosinophils # (0.04-0.35) 10*3/uL BUN (7-17) mg/dL Creatinine (0.52-1.04) mg/dL Glucose (74-99) mg/dL POC Glucose (mg/dL) 348 H (70-110) mg/dL Microbiology - Last 24 Hours (Table) 12/18/24 20:00 Blood Culture Gram Stain - Preliminary Blood Blood Culture - Preliminary Staphylococcus epidermidis Molecular ID Assessment and Plan (1) Positive blood culture Current Visit: Yes Status: Acute Code(s): R78.81 - BACTEREMIA SNOMED Code(s): 720149715 (2) Leukocytosis Current Visit: Yes Status: Acute Code(s): D72.829 - ELEVATED WHITE BLOOD CELL COUNT, UNSPECIFIED SNOMED Code(s): 176675937 Plan: 1patient with a positive blood culture with staph epi which is more likely skin contamination this patient who recently did have a right hip replacement however the right hip surgical site incision is currently healed with no cellulitis and the patient denies having any pain to the right hip area, no need for vancomycin however blood culture will be repeated to document clearance 2patient presented hospital with increasing shortness of breath and did have a cough question of asthma exacerbation with tracheobronchitis chest x-ray was atypical pneumonia 3worsening of the white count more likely related to steroids rather than worsening infection and would be monitored closely We will follow on clinical condition and cultures to further adjust medication i f needed Thank you for this consultation we will follow the patient along with you Dictation was produced using [employer] dictation software. please excuse any grammatical, word or spelling errors. Time with Patient: Greater than 30
[2024-12-22 10:59] LABS: Glucose,Whole Blood 414 mg/dL (70-110)
[2024-12-22] MEDS: INSULIN LISPRO (HumaLOG) 100 UNIT/ML 10 mL VL SQ PRN (11:05)
[2024-12-22 11:37] LABS: Glucose,Whole Blood 423 mg/dL (70-110)
--- NOTE | 2024-12-22 12:14 | CA ---
Transthoracic Echo Report Name: Roshni Rodriguez Age: 74 Gender: F : 1950 Exam Date: 12/22/2024 08:06 Exam Location: [place] [facility] Ht (in): 63 Wt (lb): 198 Ordering Physician: Zoila Walsh MD Attending/Referring Phys: Harpsichord Maker Luisa Meza RDCS Procedure CPT: Indications: chf Cardiac Hx: pacemaker Technical Quality: Technically difficult study Contrast 1: Definity Total Dose (mL): 2 Contrast 2: Total Dose (mL): MEASUREMENTS (Male / Female) Normal Values 2D ECHO LV Diastolic Diameter PLAX 6.0 cm 4.2 - 5.9 / 3.9 - 5.3 cm LV Systolic Diameter PLAX 5.0 cm IVS Diastolic Thickness 1.2 cm 0.6 - 1.0 / 0.6 - 0.9 cm LVPW Diastolic Thickness 1.2 cm 0.6 - 1.0 / 0.6 - 0.9 cm LV Relative Wall Thickness 0.4 RV Internal Dim ED PLAX 2.4 cm LA Systolic Diameter LX 3.6 cm 3.0 - 4.0 / 2.7 - 3.8 cm LV Diastolic Volume MOD BP 62.8 cm??? 67 - 155 / 56 - 104 cm??? LV Systolic Volume MOD BP 28.8 cm??? 22 - 58 / 19 - 49 cm??? LV Ejection Fraction MOD BP 54.2 % >= 55 % LV Cardiac Index MOD BP 1170.3 cm???/min???m??? LV Diastolic Volume MOD 4C 76.2 cm??? LV Systolic Volume MOD 4C 42.1 cm??? LV Ejection Fraction MOD 4C 44.8 % LV Cardiac Index MOD 4C 1171.5 cm???/min???m??? LV Diastolic Length 4C 5.9 cm LV Systolic Length 4C 5.8 cm LV Diastolic Volume MOD 2C 46.9 cm??? LV Systolic Volume MOD 2C 17.8 cm??? LV Ejection Fraction MOD 2C 62.1 % LV Cardiac Index MOD 2C 1000.7 cm???/min???m??? LV Diastolic Length 2C 5.3 cm LV Systolic Length 2C 5.0 cm LA Volume 77.9 cm??? 18 - 58 / 22 - 52 cm??? LA Volume Index 38.2 cm???/m??? 16 - 28 cm???/m??? M-MODE Aortic Root Diameter MM 3.4 cm AV Cusp Separation MM 2.2 cm DOPPLER AV Peak Velocity 113.2 cm/s AV Peak Gradient 5.1 mmHg MV Area PHT 2.7 cm??? Mitral E Point Velocity 76.1 cm/s Mitral A Point Velocity 100.9 cm/s Mitral E to A Ratio 0.8 MV Deceleration Time 284.4 ms FINDINGS Left Ventricle Left ventricular ejection fraction is estimated at 40-45 %. Moderate global hypokinesis. Dilated diastolic left ventricle size. Mildly increased left ventricular wall thickness. Right Ventricle Normal right ventricular size. Unable to estimate the right ventricular systolic pressure. A wire is noted in the right ventricle Right Atrium Right atrium not well visualized. Left Atrium Moderately increased left atrial volume. Mildly increased left atrial area. No left atrial thrombus or mass present. Mitral Valve Structurally normal mitral valve. Mitral annular calcification. Mild mitral regurgitation Aortic Valve Trileaflet aortic valve. No aortic valve stenosis or regurgitation. Tricuspid Valve Structurally normal tricuspid valve. Mild tricuspid regurgitation. Pulmonic Valve No pulmonic regurgitation.pulmonic valve not well visualized. Pericardium No pericardial effusion. Aorta Normal size aortic root and proximal ascending aorta. CONCLUSIONS Technically difficult study. Definity ECHO contrast used for improved visualization of the endocardial borders (inadequate visualization of two or more contiguous segments). Moderate global hypokinesis of the left ventricle, no clear segmental wall motion abnormality is noted Mild mitral and tricuspid regurgitation A wire is noted in the right ventricle Previewed by: Dr. Kirit Murray MD (Electronically Signed) Final Date: 22 December 2024 12:13
--- NOTE | 2024-12-22 13:51 | P.PN ---
Subjective Progress Note Date: 12/22/24 Reason for Consult (text): chf Chief complaint: shortness of breath, cough, weakness History of present illness: This is a pleasant 74-year-old female patient of Dr. Villanueva with past medical history of CAD status post CABG, ischemic cardiomyopathy status post AICD, chronic systolic heart failure, hypertension, hyperlipidemia and left bundle branch block. Presented to the hospital with complaints of shortness of breath, weakness, cough and edema. The middle of last month she underwent hip replacement and was subsequently discharged to rehab. After returning home she was feeling somewhat more short of breath compared to her baseline but thought this was due to physical deconditioning. She began to have a dry hacking cough as well as lower extremity edema. She eventually came to the emergency department after she had a fall at home when her legs suddenly became weak. We have been asked to see the patient in consultation for congestive heart failure. Diagnostics -EKG: Paced rhythm -Chest x-ray: Correlation recommended for congestive heart failure or atypical pneumonia -Laboratory studies: Syncopal 15.99, hemoglobin 9.3, sodium 139, potassium 4.2, BUN 16, creatinine 1.01, NT proBNP 3700 -Home cardiac medications: Labetalol 6.25 mg p.o. twice daily, Entresto 24-26 mg 1 tablet p.o. twice daily, Lasix 20 mg Wednesday, aspirin, Plavix, Farxiga 10 mg p.o. daily and ezetimibe 10 mg p.o. nightly -Prior stress test: May 2024 showing medium size, moderate in intensity reversible perfusion defect in the mid anterior wall -Cardiac catheterization: June 2024 patent MARTIN to LAD, SVG to left circumflex and SVG to RCA critical disease involving the mid left circumflex. Stenting was performed at that time of the left circumflex as well as protected left main 12/21/2024 Patient seen and examined. Patient continues to have some cough. She feels that her wheezing is improved. She is not bringing up sputum. She denies chest pain or chest pressure. She has been on IV Lasix 40 mg. Blood pressure 125/71, heart rate 70s, pulse ox 96% on 3 L nasal cannula. Repeat blood work reveals WB C 21, hemoglobin 9, BUN 29 creatinine 1.28. 12/22/2024 Patient seen and examined. This morning, we transition IV Lasix to oral. Patient states she still has a cough and is coughing a lot that is non productive. She has no lower extremity edema. Blood pressure 113/64, heart rate 78, pulse ox 90% on 4 L nasal cannula. Repeat blood work reveals WBC 17.9, hemoglobin 9.4, BUN 37 creatinine 1.06, potassium 4.7. Echocardiogram reveals EF of 40 to 45%, moderate global hypokinesis of the left ventricle. No clear segmental wall motion abnormality noted. Mild mitral and tricuspid regurgitation. Wire noted in the right ventricle. PHYSICAL EXAMINATION: This is a 74-year-old female in no apparent distress at the time of my examination. VITAL SIGNS: Reviewed. HEENT: Head is atraumatic, normocephalic. Pupils are equal, round. Sclerae anicteric. Conjunctivae are clear. Mucous membranes of the mouth are moist. Neck is supple. There is no elevated jugular venous pressure. No carotid bruit is heard. CHEST EXAMINATION: Faint bibasilar crackles. No wheezes or rhonchi. Respirations even and nonlabored. HEART EXAMINATION: Heart regular, positive S1 and S2. No S3. No S4. Systolic murmur ABDOMEN: Soft, nontender. Bowel sounds are heard. No organomegaly noted. EXTREMITIES: 2+ peripheral pulses with evidence of minimal peripheral edema and no calf tenderness noted. NEUROLOGIC EXAMINATION: Patient is awake, alert and oriented x3. Assessment: 1. Acute exacerbation of chronic heart failure with reduced ejection fraction 2. Pneumonia 3. Ischemic cardiomyopathy 4. CAD with prior CABG and stenting of the left circumflex and left main in June 2024 5. Acute kidney injury Plan: Continue oral Lasix 20 mg daily Continue the increased carvedilol 12.5 mg p.o. twice daily. No further cardiac workup is planned Cardiology will sign off this case and follow on an as-needed basis. Please reconsult for any new concerns. Patient may follow-up in the office with Dr. Villanueva in one to 2 weeks. Nurse practitioner note has been reviewed, I agree with documented findings and plan of care. Patient was seen and examined. Objective - Vital Signs Vital signs: Vital Signs Temp 97.9 F 12/22/24 07:12 Pulse 78 12/22/24 07:12 Resp 18 12/22/24 07:12 BP 113/64 12/22/24 07:12 Pulse Ox 90 L 12/22/24 07:12 FiO2 Intake & Output 12/21/24 12/22/24 12/22/24 18:59 06:59 18:59 Intake Total 550 Balance 550 Weight 89.6 kg Intake: Oral 550 Other: Voiding Method Toilet # Voids 1 - Labs CBC & Chem 7: 12/22/24 02:24 12/22/24 02:24 Labs: Abnormal Lab Results - Last 24 Hours (Table) 12/21/24 12/21/24 12/21/24 Range/Units 11:52 17:19 20:21 WBC (4.50-10.00) 10*3/uL RBC (4.10-5.20) 10*6/uL Hgb (12.0-15.0) g/dL Hct (37.2-46.3) % MCHC (32.0-37.0) g/dL Immature Gran # (0.00-0.04) 10*3/uL Neutrophils # (1.80-7.70) 10*3/uL Lymphocytes # (0.90-5.00) 10*3/uL Eosinophils # (0.04-0.35) 10*3/uL Sodium (137-145) mmol/L BUN (7-17) mg/dL Creatinine (0.52-1.04) mg/dL Glucose (74-99) mg/dL POC Glucose (mg/dL) 348 H 254 H 308 H (70-110) mg/dL 12/22/24 12/22/24 12/22/24 Range/Units 01:27 02:24 02:24 WBC 17.96 H (4.50-10.00) 10*3/uL RBC 3.25 L (4.10-5.20) 10*6/uL Hgb 9.4 L (12.0-15.0) g/dL Hct 29.9 L (37.2-46.3) % MCHC 31.4 L (32.0-37.0) g/dL Immature Gran # 0.30 H (0.00-0.04) 10*3/uL Neutrophils # 16.21 H (1.80-7.70) 10*3/uL Lymphocytes # 0.52 L (0.90-5.00) 10*3/uL Eosinophils # 0.00 L (0.04-0.35) 10*3/uL Sodium 136 L (137-145) mmol/L BUN 37 H (7-17) mg/dL Creatinine 1.06 H (0.52-1.04) mg/dL Glucose 176 H (74-99) mg/dL POC Glucose (mg/dL) 158 H (70-110) mg/dL 12/22/24 Range/Units 06:32 WBC (4.50-10.00) 10*3/uL RBC (4.10-5.20) 10*6/uL Hgb (12.0-15.0) g/dL Hct (37.2-46.3) % MCHC (32.0-37.0) g/dL Immature Gran # (0.00-0.04) 10*3/uL Neutrophils # (1.80-7.70) 10*3/uL Lymphocytes # (0.90-5.00) 10*3/uL Eosinophils # (0.04-0.35) 10*3/uL Sodium (137-145) mmol/L BUN (7-17) mg/dL Creatinine (0.52-1.04) mg/dL Glucose (74-99) mg/dL POC Glucose (mg/dL) 268 H (70-110) mg/dL Microbiology - Last 24 Hours (Table) 12/18/24 20:00 Blood Culture Gram Stain - Preliminary Blood Blood Culture - Preliminary Staphylococcus epidermidis Molecular ID
--- NOTE | 2024-12-22 14:00 | CT ---
EXAMINATION TYPE: CT chest wo con DATE OF EXAM: 12/22/2024 COMPARISON: 05/19/2020 CLINICAL INDICATION: Female, 74 years old with history of persistent hypoxemia; PHH, Persistant hypox emia TECHNIQUE: CT scan of the thorax is performed without IV contrast. CT DLP: 487.[address] CTDI: mGy Automated exposure control for dose reduction was used. FINDINGS: There is diffuse marked multifocal groundglass opacity, right greater than left. There is no pleural effusion or pneumothorax. The main pulmonary artery is dilated 3.4 cm. There is a 2-lead cardiac pacemaker and moderate cardiom egaly. There is no mediastinal, hilar or axillary adenopathy. Limited scanning through the upper abdomen shows no gross abnormality. There are no focal osseous lesions. IMPRESSION: 1. Marked diffuse scattered groundglass opacities consistent with pulmonary edema, ARDS or pneumonia. 2. Moderate cardiomegaly. 2-lead cardiac pacemaker. 3. 3.4 cm dilatation of the main pulmonary artery possibly indicating pulmonary hypertension. Follow-up recommendations for incidental pulmonary nodules are per [employer] or [employer]. [facility], , 12/22/2024 1:57 PM
--- NOTE | 2024-12-22 15:22 | P.PN ---
Subjective Progress Note Date: 12/22/24 Patient is a 75-year-old female with past medical history significant for hypertension, hyperlipidemia, insulin-dependent diabetes mellitus, obesity, coronary artery disease with previous CABG, ischemic cardiomyopathy with an ejection fraction of 25 to 30% with AICD, asthma, and osteoarthritis. Of note, patient recently underwent right direct anterior total hip arthroplasty on 11/24/2024. She was discharged from the hospital to [facility] for rehabilitation. While at the outside facility, developed shortness of breath, coughing, and generalized weakness. States she was released from [facility] to home last Wednesday on November. Since then, she has fallen twice while at home. Brought in by EMS yesterday evening hypoxic and confused. She was placed on supplemental oxygen. Workup in the emergency department including a chest x-ray showing patchy bilateral lung infiltrates concerning for congestive heart failure or atypical pneumonias. CBC: WBC count 14.7, hemoglobin 9.5 g/dL, platelets 374. BMP: Sodium 132, potassium 4.4, chloride 100, serum bicarb 23, BUN 16, creatinine 0.92, glucose 124. Lactic 1.8. LFTs unremarkable. Troponin less than 0.012. NT proBNP 6.74. Viral 4 Plex negative for influenza A/B, RSV, COVID. Urinalysis unremarkable for UTI. Patient currently being evaluated on the general medical floor. She is alert and oriented x 3. Endorses above menti oned complaints. Does report history of asthma. Has had increased work of breathing over the last couple weeks. Suffering from persistent nonproductive cough over the same timeframe. States her symptoms actually started at [facility]. She has had a poor appetite with occasional nausea and vomiting. She has been able to take some of her home medications. Has had intermittent fevers with a Tmax of 100.8 F. Was started on empiric antibiotics in the ED, in the form azithromycin and Rocephin. Normal saline infusing at 50 mL/h. Denies any chest pain. Does endorse unilateral right lower lower extremity edema. No heart palpitations, syncopal events, hemoptysis. Current vital signs: Temperature 100.8 F, heart rate 95 bpm, blood pressure 124/54 mmHg, nontachypneic, SpO2 recorded at 96% on 3 L/min nasal cannula. The patient is seen today December 20, 2024 and follow-up on the regular medical floor. She is currently sitting up in bed. Awake and alert in no acute distress. Feeling a bit better today compared to yesterday. Maintaining O2 saturations in the 90s on 3 L/min per nasal cannula. Chest x-ray shows continued infiltrate of the right lung with improvement in the left lung. Blood culture is coming back positive. ID pending. White count 15.9. Hemoglobin 9.3. Platelets 371. Sodium 139. Potassium 4.2. Bicarb 27. BUN 16. Creatinine 1.01. Glucose 133. She remains on DuoNeb inhalations, IV Solu- Medrol, IV diuretics. Lovenox for DVT prophylaxis. Antibiotics in the form of ceftriaxone. The patient is seen today December 21, 2024 in follow-up on the regular medical floor. She is currently sitting up in a chair. Awake and alert in no acute distress. Maintaining O2 saturations in the 90s on 3 L/min per nasal cannula. She has been afebrile. Hemodynamically stable. Blood cultures showing staph epidermidis, most likely contaminant. White count 21.1. Hemoglobin 9.0. Platelets 409. Sodium 137. Potassium 4.5. Bicarb 30. BUN 29. Creatinine 1. 28. Glucose 172. proBNP 2180. She remains on DuoNeb inhalations, Solu-Medrol. Antibiotics in the form of ceftriaxone. Lovenox for DVT prophylaxis. Remains on IV diuretics. No accurate intake and output recorded. Chest x-ray showing similar findings with basilar infiltrates right greater than left. The patient is seen today December 22, 2024 in follow-up on the regular medical floor. She is sitting up at the bedside. Awake and alert in no acute distress. She has been slow to progress. She is still dyspneic with minimal exertion. Dyspneic with conversation. She is maintaining O2 saturations in the 90s on 7 L high flow nasal cannula. Echocardiogram reveals impaired left ventricular systolic function with an ejection fraction [address] scan of the chest revealed marked diffuse scattered groundglass opacities consistent with pulmonary edema, ARDS or pneumonia. AICD in place. Blood culture positive for Staphylococcus epidermidis. White count 17.9. Hemoglobin 9.4. Platelets 386. Sodium 136. Potassium 4.7. Bicarb 28. BUN 37. Creatinine 1.06. Glucose 176. She remains on DuoNeb inhalations, Solu-Medrol. Remains on oral diuretics. Antibiotics in the form of ceftriaxone. Heparin for DVT prophylaxis. Objective - Vital Signs Vital signs: Vital Signs Temp 97.9 F 12/22/24 07:12 Pulse 85 12/22/24 13:08 Resp 22 12/22/24 11:20 BP 113/64 12/22/24 07:12 Pulse Ox 94 L 12/22/24 11:20 FiO2 Intake & Output 12/21/24 12/22/24 12/22/24 18:59 06:59 18:59 Intake Total 550 Balance 550 Weight 89.6 kg Intake: Oral 550 Other: Voiding Method Toilet # Voids 1 - Exam GENERAL EXAM: Alert, weak 74-year-old obese female, sitting up at the bedside, on 7 L/min nasal cannula, in mild respiratory distress. Insulin pump noted. HEAD: Normocephalic and atraumatic EYES: Normal reaction of pupils, equal size. NOSE: Clear with pink turbinates. THROAT: No erythema or exudates. NECK: No masses, no JVD. CHEST: No chest wall deformity. Left chest implanted device. LUNGS: Equal air entry crackles in the posterior bases right greater than left. CVS: S1 and S2 normal with no audible murmur, regular rhythm. No extra heart sounds ABDOMEN: No hepatosplenomegaly, active bowel sounds, no guarding or rigidity. SPINE: No scoliosis or deformity SKIN: No rashes CENTRAL NERVOUS SYSTEM: No focal deficits, tone is normal in all 4 extremities. EXTREMITIES: Right anterior hip incision is approximated, pink, without dehiscence or drainage. Full range of motion. Right lower extremity pitting edema. Peripheral pulses are intact. - Labs CBC & Chem 7: 12/22/24 02:24 12/22/24 02:24 Labs: Abnormal Lab Results - Last 24 Hours (Table) 12/21/24 12/21/24 12/22/24 Range/Units 17:19 20:21 01:27 WBC (4.50-10.00) 10*3/uL RBC (4.10-5.20) 10*6/uL Hgb (12.0-15.0) g/dL Hct (37.2-46.3) % MCHC (32.0-37.0) g/dL Immature Gran # (0.00-0.04) 10*3/uL Neutrophils # (1.80-7.70) 10*3/uL Lymphocytes # (0.90-5.00) 10*3/uL Eosinophils # (0.04-0.35) 10*3/uL Sodium (137-145) mmol/L BUN (7-17) mg/dL Creatinine (0.52-1.04) mg/dL Glucose (74-99) mg/dL POC Glucose (mg/dL) 254 H 308 H 158 H (70-110) mg/dL 12/22/24 12/22/24 12/22/24 Range/Units 02:24 02:24 06:32 WBC 17.96 H (4.50-10.00) 10*3/uL RBC 3.25 L (4.10-5.20) 10*6/uL Hgb 9.4 L (12.0-15.0) g/dL Hct 29.9 L (37.2-46.3) % MCHC 31.4 L (32.0-37.0) g/dL Immature Gran # 0.30 H (0.00-0.04) 10*3/uL Neutrophils # 16.21 H (1.80-7.70) 10*3/uL Lymphocytes # 0.52 L (0.90-5.00) 10*3/uL Eosinophils # 0.00 L (0.04-0.35) 10*3/uL Sodium 136 L (137-145) mmol/L BUN 37 H (7-17) mg/dL Creatinine 1.06 H (0.52-1.04) mg/dL Glucose 176 H (74-99) mg/dL POC Glucose (mg/dL) 268 H (70-110) mg/dL 12/22/24 12/22/24 Range/Units 10:58 11:31 WBC (4.50-10.00) 10*3/uL RBC (4.10-5.20) 10*6/uL Hgb (12.0-15.0) g/dL Hct (37.2-46.3) % MCHC (32.0-37.0) g/dL Immature Gran # (0.00-0.04) 10*3/uL Neutrophils # (1.80-7.70) 10*3/uL Lymphocytes # (0.90-5.00) 10*3/uL Eosinophils # (0.04-0.35) 10*3/uL Sodium (137-145) mmol/L BUN (7-17) mg/dL Creatinine (0.52-1.04) mg/dL Glucose (74-99) mg/dL POC Glucose (mg/dL) 414 H 423 H (70-110) mg/dL Microbiology - Last 24 Hours (Table) 12/18/24 20:00 Blood Culture Gram Stain - Final Blood Blood Culture - Final Staphylococcus epidermidis Molecular ID Assessment and Plan Assessment: Healthcare associated pneumonia, bilateral. CT scan of the chest reveals marked diffuse scattered groundglass opacities consistent with pulmonary edema, ARDS or pneumonia. Moderate cardiomegaly. Procalcitonin negative Acute asthma exacerbation Acute hypoxemic respiratory failure, currently on 7 L/min nasal cannula, secondary to above; chest x-ray remarkable for cardiomegaly, possible pulmonary vascular congestion, patchy bilateral lower lung infiltrates. Prior sternotomy wires. AICD generator and leads. Concerning for atypical pneumonia or congestive heart failure Acute febrile illness Acute leukocytosis History of right direct anterior total hip arthroplasty on November 24 Acute blood loss anemia, expected outcome of surgery Hypertension History of hyperlipidemia Insulin-dependent diabetes mellitus Obesity with a BMI of 35.4 kg/m Coronary artery disease, with history of CABG and cardiac stents History of ischemic cardiomyopathy with an ejection fraction improved to 40 to 45% Implanted AICD/pacemaker Hypothyroidism Anxiety/depression Plan: The patient was seen and evaluated Having increasing oxygen requirements Currently on 7 L high flow nasal cannula CT scan of the chest, labs and medications reviewed Echocardiogram reviewed Continue bronchodilators Continue steroids Continue diuretics Continue antibiotics Heparin for DVT prophylaxis Titrate the FiO2 as tolerated We will continue to follow I have personally seen and examined the patient, performed the documentation and the assessment and plan as written. Number of minutes spent on the visit: 10 Dictation was produced using [employer] software. Please excuse any grammatical, word or spelling errors.
--- NOTE | 2024-12-22 16:16 | P.PN ---
Subjective Progress Note Date: 12/22/24 Patient is a 74-year-old female with hypertension, hyperlipidemia, DM (insulin- dependent), obesity, CAD status post CABG, ischemic cardiomyopathy (EF 25 to 30% with AICD), asthma, and osteoarthritis here for evaluation of a fall with generalized weakness. Patient reported that she developed shortness of breath, dry cough, chills, bilateral extremity swelling and generalized weakness when she was discharged from rehab on 12/09 from [facility]. She recently had a right direct anterior total hip arthroplasty on 11/24/2024. Since then she has fallen twice at home due to missed steps. She reported that her swelling has improved gradually over the past 2 weeks. On arrival to the ED, she also reported to have altered mental status. She denied chest pain, palpitations, nausea, vomiting, abdominal pain, extremity swelling, focal weakness, recent prolonged travel. On admission: Vitals: Temp 99 Fahrenheit, ID 99, RR 16, BP 114/60, O2 saturation 89% on room air Labs: WBC 17.4, hemoglobin 9.5, sodium 132, potassium 4.4, bicarb 23, BUN 16, creatinine 0.9, glucose 124, lactic acid 1.8, calcium 8.8, phosphorus 2.4, magnesium 1.7, TSH 6.7. Liver enzymes within normal ranges. Troponin negative. proBNP 3700. Urinalysis unremarkable. Cepheid 4 Plex negative. Urine Legionella antigen negative. Imaging: Chest x-ray showed cardiomegaly with prominent pulmonary vasculature and patchy bilateral lung infiltrates. Hip pelvis x-ray showed no acute osseous abnormalities. EKG showed V paced at a rate of 87, no ST-T changes, QTc 446 MS. 12/20/2024 patient seen and examined at bedside. No acute events overnight. Still requiring oxygen support with 2 to 3 L of nasal cannula. Patient has no symptoms or complaints. Labs: WBC 15.9, hemoglobin 9.3, MCV 93.6, platelet count 371,000, sodium 139, potassium 4.2, bicarb 27, BUN 16, creatinine 1.01, glucose 133, calcium 9.1, Pro-Fortino 0.22. Blood cultures positive for staph mecA/C positive. Imaging; chest x-ray independently interpreted showing improving pulmonary infiltrates 12/21/2024 patient seen and examined at bedside. No acute events overnight. Patient still requiring 2-3L oxygen. Labs: WBC 21.16, hemoglobin 9, MCV 92.9, platelet count 408,000, sodium 137, potassium 4.5, bicarb 30, BUN 29, creatinine 1.28, glucose 172, calcium 9.3, BNP 2180. Blood cultures positive for Staphylococcus epidermidis MEC A positive. Repeat CXR shows minimal improvement 12/22/2024 patient seen and examined at bedside. No acute events overnight. Patient still requiring 3 to 4 L oxygen via nasal cannula Labs: WBC 7.29, hemoglobin 9.4, platelet count 386,000, sodium 136, potassium 4.7, bicarb 28, BUN 37, creatinine 1.06, glucose 176, calcium 8.8 Imaging; echocardiogram showed LVEF 40 to 45% with moderate global hypokinesis, mild mitral and tricuspid regurgitation Review of systems: Pertinent positives and negatives as discussed in HPI, a complete review of systems was performed and all other systems are negative. Physical examination: Vital signs reviewed General: non toxic, no distress, appears at stated age, 3L nasal cannula Derm: no unusual rashes/lesions, warm Head: atraumatic, normocephalic, symmetric Eyes: EOMI, anicteric sclera, pupils equal round reactive to light ENT: Nose and ears atraumatic Neck: No cervical lymphadenopathy, trachea midline, supple Mouth: no lip lesion, mucus membranes moist Cardiovascular: S1S2 reg, no murmur Lungs: Babasilar rhonchi, no rales, no accessory muscle use Abdominal: soft, nondistended, nontender to palpation, no guarding Ext: muscle strength 5 out of 5 in all 4 extremities grossly, no gross muscle atrophy, no contractures, positive dorsalis pedis pulse bilateral, trace bilateral lower extremity edema Neuro: CN II-XI grossly intact, no gross focal neuro deficits Psych: Alert and oriented x 3, appropriate affect and mood Assessment/Plan: The patient is admitted with an anticipated greater than 2 midnight stay for evaluation of acute respiratory failure due to HFrEF exacerbation Active: #. Acute hypoxic respiratory failure, HFrEF exacerbation with possible CAP #. Asthma exacerbation #. Ischemic cardiomyopathy (EF 25 to 30% with AICD) #. Leukocytosis, likley steroid induced -No episodes of fevers overnight. WBC elevated but not significantly to warrant infectious process -Pulmonary infiltrates improving based on today's CXR -Supportive oxygen as needed - Continue with Zithromax 500 mg p.o. and Rocephin 2 g IVPB -Discontinue Solu-Medrol 40 mg IV -Lasix 20 mg p.o. daily per cardiology -Daily weights -Strict InOs -Fluid restriction 1800 -Echocardiogram showed LVEF 40 to 45% with moderate global hypokinesis, mild mitral and tricuspid regurgitation -Blood cultures positive for staph mecA/C positive. Likely contaminant. Due to patient's elevated WBC and CXR findings, ID is consulted -Sputum culture ordered -Chest CT ordered -Procalcitonin, legionella negative -Monitor CBC and renal fuction -Pulmonology consulted by ED -Consult cardiology #. Acute Kidney Injury, prerenal, improved - Cr 1.06 today -Monitor UO -Avoid nephrotoxic agents -No IV fluids for now due to CHF exacerbation #. Mechanical Fall secondary to above #. Recent Right anterior total hip arthroplasty Hip pelvis x-ray showed no acute osseous abnormalities. Ortho consulted by ED. No intervention recommended at this time D/c Ketorolac IV due to BEV. Continue with PO norco prn #. Normocytic anemia at baseline Hemoglobin 9.5 Monitor CBC Chronic Conditions: #. Diabetes mellitus, on insulin pump -Hemoglobin A1c 7.3 in November 2024 -Hold home insulin pump -Glucose Accu-Cheks ACHS -Initiate Insulin basal rates every 6 hours as needed -Monitor for hypoglycemia #. Hypertension #. Hyperlipidemia #. Obesity #. CAD status post CABG #. Osteoarthritis Resume home aspirin, bupropion 150, buspirone 10 mg, carvedilol 12.5 mg, clopidogrel 75 mg, dapagliflozin 10 mg, ezetimibe 10 mg, fluvoxamine 100 mg, f urosemide 20 mg gabapentin 300 mg, Synthroid 125 mcg, rosuvastatin 40 mg, Entresto, trazodone 50 mg DVT ppx: Lovenox 40 mg subcu daily GI prophylaxis: Pantoprazole 40 mg IVP twice daily CODE STATUS: Full Discussed with: Patient Anticipated discharge place: Home Zoila Walsh MD PGY-1 Internal Medicine Dictation was produced using [employer] dictation software. please excuse any grammatical, word or spelling errors. Attestation: I have seen and examined this patient with my resident, assessment and plan discussed with the resident, agree with assessment and plan as written above. Dr. Godfrey Objective - Vital Signs Vital signs: Vital Signs Temp 98.3 F 12/22/24 01:28 Pulse 78 12/22/24 07:00 Resp 17 12/22/24 01:28 BP 121/68 12/22/24 07:00 Pulse Ox 94 L 12/22/24 03:15 FiO2 Intake & Output 12/21/24 12/22/24 12/22/24 18:59 06:59 18:59 Intake Total 550 Balance 550 Weight 89.6 kg Intake: Oral 550 Other: Voiding Method Toilet # Voids 1 - Labs CBC & Chem 7: 12/22/24 02:24 12/22/24 02:24 Labs: Abnormal Lab Results - Last 24 Hours (Table) 12/21/24 12/21/24 12/21/24 Range/Units 11:52 17:19 20:21 WBC (4.50-10.00) 10*3/uL RBC (4.10-5.20) 10*6/uL Hgb (12.0-15.0) g/dL Hct (37.2-46.3) % MCHC (32.0-37.0) g/dL Immature Gran # (0.00-0.04) 10*3/uL Neutrophils # (1.80-7.70) 10*3/uL Lymphocytes # (0.90-5.00) 10*3/uL Eosinophils # (0.04-0.35) 10*3/uL Sodium (137-145) mmol/L BUN (7-17) mg/dL Creatinine (0.52-1.04) mg/dL Glucose (74-99) mg/dL POC Glucose (mg/dL) 348 H 254 H 308 H (70-110) mg/dL 12/22/24 12/22/24 12/22/24 Range/Units 01:27 02:24 02:24 WBC 17.96 H (4.50-10.00) 10*3/uL RBC 3.25 L (4.10-5.20) 10*6/uL Hgb 9.4 L (12.0-15.0) g/dL Hct 29.9 L (37.2-46.3) % MCHC 31.4 L (32.0-37.0) g/dL Immature Gran # 0.30 H (0.00-0.04) 10*3/uL Neutrophils # 16.21 H (1.80-7.70) 10*3/uL Lymphocytes # 0.52 L (0.90-5.00) 10*3/uL Eosinophils # 0.00 L (0.04-0.35) 10*3/uL Sodium 136 L (137-145) mmol/L BUN 37 H (7-17) mg/dL Creatinine 1.06 H (0.52-1.04) mg/dL Glucose 176 H (74-99) mg/dL POC Glucose (mg/dL) 158 H (70-110) mg/dL 12/22/24 Range/Units 06:32 WBC (4.50-10.00) 10*3/uL RBC (4.10-5.20) 10*6/uL Hgb (12.0-15.0) g/dL Hct (37.2-46.3) % MCHC (32.0-37.0) g/dL Immature Gran # (0.00-0.04) 10*3/uL Neutrophils # (1.80-7.70) 10*3/uL Lymphocytes # (0.90-5.00) 10*3/uL Eosinophils # (0.04-0.35) 10*3/uL Sodium (137-145) mmol/L BUN (7-17) mg/dL Creatinine (0.52-1.04) mg/dL Glucose (74-99) mg/dL POC Glucose (mg/dL) 268 H (70-110) mg/dL Microbiology - Last 24 Hours (Table) 12/18/24 20:00 Blood Culture Gram Stain - Preliminary Blood Blood Culture - Preliminary Staphylococcus epidermidis Molecular ID
[2024-12-22 17:24] LABS: Glucose,Whole Blood 228 mg/dL (70-110)
--- NOTE | 2024-12-22 19:44 | P.PN ---
Subjective Progress Note Date: 12/22/24 Principal diagnosis: Reason for follow-up is a positive blood culture Patient is a 74-year-old female with a past medical history significant for Asthma, Blood Disorder, Coronary Artery Disease (CAD), Chest Pain / Angina, Heart Failure, Diabetes Mellitus, Eye Disorder, GERD/Reflux, Hyperlipidemia, Hypertension, Myocardial Infarction (NC), Musculoskeletal Disorder, Osteoarthritis (OA), Renal Disease, Skin Disorder, Supraventricular Tachycardia (SVT), Thyroid Disorder who recently did have a right hip replacement, patient presented the hospital with increasing shortness of breath and cough did have a positive blood culture prompting this consultation. On today's evaluation that is 12/22/2024, the patient continues to be afebrile, the patient is on 6 L nasal cannula oxygen and breathing slightly comfortably, the Pt denies having any chest pain and cough has decreased intensity remains to be dry in nature, the patient denies having any abdominal pain no vomiting or any diarrhea. Patient white count is down to 17.96 creatinine 1.06 blood culture repeat curre ntly pending Objective - Vital Signs Vital signs: Vital Signs Temp 97.5 F L 12/22/24 14:37 Pulse 80 12/22/24 16:47 Resp 16 12/22/24 14:37 BP 105/61 12/22/24 14:37 Pulse Ox 97 12/22/24 14:37 FiO2 Intake & Output 12/22/24 12/22/24 12/23/24 06:59 18:59 06:59 Weight 89.6 kg Other: # Voids 1 1 - Exam GENERAL DESCRIPTION: An elderly female up in the chair in no distress RESPIRATORY SYSTEM: Unlabored breathing , decreased breath sounds at bases HEART: S1 S2 regular rate and rhythm , ABDOMEN: Soft , no tenderness EXTREMITIES: No edema feet - Labs CBC & Chem 7: 12/22/24 02:24 12/22/24 02:24 Labs: Abnormal Lab Results - Last 24 Hours (Table) 12/21/24 12/22/24 12/22/24 Range/Units 20:21 01:27 02:24 WBC 17.96 H (4.50-10.00) 10*3/uL RBC 3.25 L (4.10-5.20) 10*6/uL Hgb 9.4 L (12.0-15.0) g/dL Hct 29.9 L (37.2-46.3) % MCHC 31.4 L (32.0-37.0) g/dL Immature Gran # 0.30 H (0.00-0.04) 10*3/uL Neutrophils # 16.21 H (1.80-7.70) 10*3/uL Lymphocytes # 0.52 L (0.90-5.00) 10*3/uL Eosinophils # 0.00 L (0.04-0.35) 10*3/uL Sodium (137-145) mmol/L BUN (7-17) mg/dL Creatinine (0.52-1.04) mg/dL Glucose (74-99) mg/dL POC Glucose (mg/dL) 308 H 158 H (70-110) mg/dL 12/22/24 12/22/24 12/22/24 Range/Units 02:24 06:32 10:58 WBC (4.50-10.00) 10*3/uL RBC (4.10-5.20) 10*6/uL Hgb (12.0-15.0) g/dL Hct (37.2-46.3) % MCHC (32.0-37.0) g/dL Immature Gran # (0.00-0.04) 10*3/uL Neutrophils # (1.80-7.70) 10*3/uL Lymphocytes # (0.90-5.00) 10*3/uL Eosinophils # (0.04-0.35) 10*3/uL Sodium 136 L (137-145) mmol/L BUN 37 H (7-17) mg/dL Creatinine 1.06 H (0.52-1.04) mg/dL Glucose 176 H (74-99) mg/dL POC Glucose (mg/dL) 268 H 414 H (70-110) mg/dL 12/22/24 12/22/24 Range/Units 11:31 17:22 WBC (4.50-10.00) 10*3/uL RBC (4.10-5.20) 10*6/uL Hgb (12.0-15.0) g/dL Hct (37.2-46.3) % MCHC (32.0-37.0) g/dL Immature Gran # (0.00-0.04) 10*3/uL Neutrophils # (1.80-7.70) 10*3/uL Lymphocytes # (0.90-5.00) 10*3/uL Eosinophils # (0.04-0.35) 10*3/uL Sodium (137-145) mmol/L BUN (7-17) mg/dL Creatinine (0.52-1.04) mg/dL Glucose (74-99) mg/dL POC Glucose (mg/dL) 423 H 228 H (70-110) mg/dL Microbiology - Last 24 Hours (Table) 12/18/24 20:00 Blood Culture Gram Stain - Final Blood Blood Culture - Final Staphylococcus epidermidis Molecular ID Assessment and Plan (1) Positive blood culture Current Visit: Yes Status: Acute Code(s): R78.81 - BACTEREMIA SNOMED Code(s): 729562677 (2) Leukocytosis Current Visit: Yes Status: Acute Code(s): D72.829 - ELEVATED WHITE BLOOD CELL COUNT, UNSPECIFIED SNOMED Code(s): 856472322 Plan: 1patient with a positive blood culture with staph epi which is more likely skin contamination this patient who recently did have a right hip replacement however the right hip surgical site incision is currently healed with no cellulitis and the patient denies having any pain to the right hip area, no need for vancomycin however blood culture has been repeated 2patient presented hospital with increasing shortness of breath and did have a cough question of asthma exacerbation with tracheobronchitis chest x-ray was atypical pneumonia 3patient white count is trending down blood culture will currently pending we will continue monitor closely off vancomycin therapy Dictation was produced using [employer] dictation software. please excuse any gra mmatical, word or spelling errors. Time with Patient: Less than 30
[2024-12-22 21:05] LABS: Glucose,Whole Blood 254 mg/dL (70-110)
[2024-12-23 02:03] LABS: Glucose,Whole Blood 98 mg/dL (70-110)
[2024-12-23 05:38] LABS: Basophils # (A) 0.04 10*3/uL (0.00-0.10); Basophils % (A) 0.2 %; Eosinophils # (A) 0.05 10*3/uL (0.04-0.35); Eosinophils % (A) 0.3 %; HCT 29.9 % (37.2-46.3); HGB 9.2 g/dL (12.0-15.0); Lymphocytes # (A) 1.05 10*3/uL (0.90-5.00); Lymphocytes % (A) 5.9 %; MCH 28.7 pg (27.0-32.0); MCHC 30.8 g/dL (32.0-37.0); MCV 93.1 fL (80.0-97.0); Monocytes # (A) 0.81 10*3/uL (0.20-1.00); Monocytes % (A) 4.6 %; Neutrophils # (A) 15.41 10*3/uL (1.80-7.70); Neutrophils % (A) 87.4 %; Platelet Count 381 10*3/uL (140-440); RBC 3.21 10*6/uL (4.10-5.20); RDW 13.7 % (11.5-14.5); WBC 17.65 10*3/uL (4.50-10.00)
[2024-12-23 05:50] LABS: African American GFR (CKD) 58 (>60 ml/min/1.73 sqM); Anion Gap 8 mmol/L; Blood Urea Nitrogen 45 mg/dL (7-17); Calcium 9.1 mg/dL (8.4-10.2); Carbon Dioxide 28 mmol/L (22-30); Chloride 102 mmol/L (98-107); Glucose 96 mg/dL (74-99); Non-African American GFR(CKD) 50 (>60 ml/min/1.73 sqM); Potassium 4.4 mmol/L (3.5-5.1); Sodium 138 mmol/L (137-145)
[2024-12-23 06:21] LABS: Glucose,Whole Blood 115 mg/dL (70-110)
[2024-12-23] MEDS: HEPARIN SODIUM,PORCINE 5,000 UNIT/ML 1 ML VIAL SQ SCH (09:56)
[2024-12-23] MEDS: FUROSEMIDE 40 MG TAB PO SCH (09:56)
[2024-12-23] MEDS: methylPREDNISolone SOD SUCCI 40 MG/ML 1 ML VIAL IV SCH (10:01)
[2024-12-23 10:26] LABS: ABG HCO3 29 mmol/L (21-25); ABG PCO2 45 mmHg (35-45); ABG PH 7.42 (7.35-7.45); ABG TCO2 31 mmol/L (19-24); Allen Test Performed? Yes
[2024-12-23 10:31] LABS: ABG PO2 50 mmHg (83-108)
[2024-12-23 11:37] LABS: Glucose,Whole Blood 292 mg/dL (70-110)
--- NOTE | 2024-12-23 13:44 | P.PN ---
Subjective Progress Note Date: 12/23/24 Patient is a 75-year-old female with past medical history significant for hypertension, hyperlipidemia, insulin-dependent diabetes mellitus, obesity, coronary artery disease with previous CABG, ischemic cardiomyopathy with an ejection fraction of 25 to 30% with AICD, asthma, and osteoarthritis. Of note, patient recently underwent right direct anterior total hip arthroplasty on 11/24/2024. She was discharged from the hospital to [facility] for rehabilitation. While at the outside facility, developed shortness of breath, coughing, and generalized weakness. States she was released from [facility] to home last Wednesday on November. Since then, she has fallen twice while at home. Brought in by EMS yesterday evening hypoxic and confused. She was placed on supplemental oxygen. Workup in the emergency department including a chest x-ray showing patchy bilateral lung infiltrates concerning for congestive heart failure or atypical pneumonias. CBC: WBC count 14.7, hemoglobin 9.5 g/dL, platelets 374. BMP: Sodium 132, potassium 4.4, chloride 100, serum bicarb 23, BUN 16, creatinine 0.92, glucose 124. Lactic 1.8. LFTs unremarkable. Troponin less than 0.012. NT proBNP 6.74. Viral 4 Plex negative for influenza A/B, RSV, COVID. Urinalysis unremarkable for UTI. Patient currently being evaluated on the general medical floor. She is alert and oriented x 3. Endorses above menti oned complaints. Does report history of asthma. Has had increased work of breathing over the last couple weeks. Suffering from persistent nonproductive cough over the same timeframe. States her symptoms actually started at [facility]. She has had a poor appetite with occasional nausea and vomiting. She has been able to take some of her home medications. Has had intermittent fevers with a Tmax of 100.8 F. Was started on empiric antibiotics in the ED, in the form azithromycin and Rocephin. Normal saline infusing at 50 mL/h. Denies any chest pain. Does endorse unilateral right lower lower extremity edema. No heart palpitations, syncopal events, hemoptysis. Current vital signs: Temperature 100.8 F, heart rate 95 bpm, blood pressure 124/54 mmHg, nontachypneic, SpO2 recorded at 96% on 3 L/min nasal cannula. The patient is seen today December 20, 2024 and follow-up on the regular medical floor. She is currently sitting up in bed. Awake and alert in no acute distress. Feeling a bit better today compared to yesterday. Maintaining O2 saturations in the 90s on 3 L/min per nasal cannula. Chest x-ray shows continued infiltrate of the right lung with improvement in the left lung. Blood culture is coming back positive. ID pending. White count 15.9. Hemoglobin 9.3. Platelets 371. Sodium 139. Potassium 4.2. Bicarb 27. BUN 16. Creatinine 1.01. Glucose 133. She remains on DuoNeb inhalations, IV Solu- Medrol, IV diuretics. Lovenox for DVT prophylaxis. Antibiotics in the form of ceftriaxone. The patient is seen today December 21, 2024 in follow-up on the regular medical floor. She is currently sitting up in a chair. Awake and alert in no acute distress. Maintaining O2 saturations in the 90s on 3 L/min per nasal cannula. She has been afebrile. Hemodynamically stable. Blood cultures showing staph epidermidis, most likely contaminant. White count 21.1. Hemoglobin 9.0. Platelets 409. Sodium 137. Potassium 4.5. Bicarb 30. BUN 29. Creatinine 1. 28. Glucose 172. proBNP 2180. She remains on DuoNeb inhalations, Solu-Medrol. Antibiotics in the form of ceftriaxone. Lovenox for DVT prophylaxis. Remains on IV diuretics. No accurate intake and output recorded. Chest x-ray showing similar findings with basilar infiltrates right greater than left. The patient is seen today December 22, 2024 in follow-up on the regular medical floor. She is sitting up at the bedside. Awake and alert in no acute distress. She has been slow to progress. She is still dyspneic with minimal exertion. Dyspneic with conversation. She is maintaining O2 saturations in the 90s on 7 L high flow nasal cannula. Echocardiogram reveals impaired left ventricular systolic function with an ejection fraction [address] scan of the chest revealed marked diffuse scattered groundglass opacities consistent with pulmonary edema, ARDS or pneumonia. AICD in place. Blood culture positive for Staphylococcus epidermidis. White count 17.9. Hemoglobin 9.4. Platelets 386. Sodium 136. Potassium 4.7. Bicarb 28. BUN 37. Creatinine 1.06. Glucose 176. She remains on DuoNeb inhalations, Solu-Medrol. Remains on oral diuretics. Antibiotics in the form of ceftriaxone. Heparin for DVT prophylaxis. The patient is seen today December 23, 2024 in follow-up on the regular medical floor. She is currently resting in bed. Awake and alert in no acute distress. Feeling a bit better today compared to yesterday. She is maintaining O2 saturations in the 90s on 6 L high flow nasal cannula. She remains afebrile. Hemodynamically stable. Initial blood cultures showing staph epidermidis. Follow-up blood culture reveals no growth. White count 17.6. Hemoglobin 9.2. Platelets 381. Sodium 138. Potassium 4.4. Bicarb 28. BUN 45. Creatinine 1.11. Glucose 115. Arterial blood gases on 44% FiO2 revealed a PO2 of 50, [id number] and a pH of 7.42. She remains on DuoNeb inhalations, Solu-Medrol and Robitussin as needed. Heparin for DVT prophylaxis. She remains on Lasix 40 mg every 12 hours. No accurate intake and output recorded. Objective - Vital Signs Vital signs: Vital Signs Temp 98.1 F 12/23/24 07:08 Pulse 80 12/23/24 09:43 Resp 19 12/23/24 07:08 BP 104/65 12/23/24 07:08 Pulse Ox 91 L 12/23/24 07:08 FiO2 Intake & Output 12/22/24 12/23/24 12/23/24 18:59 06:59 18:59 Intake Total 500 Output Total 550 Balance 500 -550 Weight 93.5 kg Intake: Oral 500 Output: Urine 550 Other: # Voids 1 3 - Exam GENERAL EXAM: Alert, weak 74-year-old female, resting in bed, on 6 L/min nasal cannula, in no acute respiratory distress. Insulin pump noted. HEAD: Normocephalic and atraumatic EYES: Normal reaction of pupils, equal size. NOSE: Clear with pink turbinates. THROAT: No erythema or exudates. NECK: No masses, no JVD. CHEST: No chest wall deformity. Left chest implanted device. LUNGS: Equal air entry crackles in the posterior bases right greater than left. CVS: S1 and S2 normal with no audible murmur, regular rhythm. No extra heart sounds ABDOMEN: No hepatosplenomegaly, active bowel sounds, no guarding or rigidity. SPINE: No scoliosis or deformity SKIN: No rashes CENTRAL NERVOUS SYSTEM: No focal deficits, tone is normal in all 4 extremities. EXTREMITIES: Right anterior hip incision is approximated, pink, without dehiscence or drainage. Full range of motion. Right lower extremity pitting edema. Peripheral pulses are intact. - Labs CBC & Chem 7: 12/23/24 04:04 12/23/24 04:04 Labs: Abnormal Lab Results - Last 24 Hours (Table) 12/22/24 12/22/24 12/23/24 Range/Units 17:22 21:04 04:04 WBC 17.65 H (4.50-10.00) 10*3/uL RBC 3.21 L (4.10-5.20) 10*6/uL Hgb 9.2 L (12.0-15.0) g/dL Hct 29.9 L (37.2-46.3) % MCHC 30.8 L (32.0-37.0) g/dL Immature Gran # 0.29 H (0.00-0.04) 10*3/uL Neutrophils # 15.41 H (1.80-7.70) 10*3/uL ABG pO2 (83-108) mmHg ABG HCO3 (21-25) mmol/L ABG Total CO2 (19-24) mmol/L ABG O2 Saturation (94-97) % Hemoglobin (11.4-16.0) gm/dL BUN (7-17) mg/dL Creatinine (0.52-1.04) mg/dL POC Glucose (mg/dL) 228 H 254 H (70-110) mg/dL 12/23/24 12/23/24 12/23/24 Range/Units 04:04 06:19 10:22 WBC (4.50-10.00) 10*3/uL RBC (4.10-5.20) 10*6/uL Hgb (12.0-15.0) g/dL Hct (37.2-46.3) % MCHC (32.0-37.0) g/dL Immature Gran # (0.00-0.04) 10*3/uL Neutrophils # (1.80-7.70) 10*3/uL ABG pO2 50 L* (83-108) mmHg ABG HCO3 29 H (21-25) mmol/L ABG Total CO2 31 H (19-24) mmol/L ABG O2 Saturation 85.2 L (94-97) % Hemoglobin 9.6 L (11.4-16.0) gm/dL BUN 45 H (7-17) mg/dL Creatinine 1.11 H (0.52-1.04) mg/dL POC Glucose (mg/dL) 115 H (70-110) mg/dL 12/23/24 Range/Units 11:36 WBC (4.50-10.00) 10*3/uL RBC (4.10-5.20) 10*6/uL Hgb (12.0-15.0) g/dL Hct (37.2-46.3) % MCHC (32.0-37.0) g/dL Immature Gran # (0.00-0.04) 10*3/uL Neutrophils # (1.80-7.70) 10*3/uL ABG pO2 (83-108) mmHg ABG HCO3 (21-25) mmol/L ABG Total CO2 (19-24) mmol/L ABG O2 Saturation (94-97) % Hemoglobin (11.4-16.0) gm/dL BUN (7-17) mg/dL Creatinine (0.52-1.04) mg/dL POC Glucose (mg/dL) 292 H (70-110) mg/dL Microbiology - Last 24 Hours (Table) 12/22/24 02:29 Blood Culture - Preliminary Blood 12/18/24 20:00 Blood Culture Gram Stain - Final Blood Blood Culture - Final Staphylococcus epidermidis Molecular ID Assessment and Plan Assessment: Healthcare associated pneumonia, bilateral. CT scan of the chest reveals marked diffuse scattered groundglass opacities consistent with pulmonary edema, ARDS or pneumonia. Moderate cardiomegaly. Procalcitonin negative Acute asthma exacerbation Acute hypoxemic respiratory failure, currently on 7 L/min nasal cannula, secondary to above; chest x-ray remarkable for cardiomegaly, possible pulmonary vascular congestion, patchy bilateral lower lung infiltrates. Prior sternotomy wires. AICD generator and leads. Concerning for atypical pneumonia or congestive heart failure Acute febrile illness Acute leukocytosis History of right direct anterior total hip arthroplasty on November 24 Acute blood loss anemia, expected outcome of surgery Hypertension History of hyperlipidemia Insulin-dependent diabetes mellitus Obesity with a BMI of 35.4 kg/m Coronary artery disease, with history of CABG and cardiac stents History of ischemic cardiomyopathy with an ejection fraction improved to 40 to 45% Implanted AICD/pacemaker Hypothyroidism Anxiety/depression Plan: The patient was seen and evaluated Labs, ABGs and medications reviewed Currently on 6 L high flow nasal cannula Continue DuoNeb inhalations Add Symbicort Continue steroids Increase Lasix to 40 mg IV twice daily Continue antibiotics Heparin for DVT prophylaxis Titrate the FiO2 as tolerated We will continue to follow I have personally seen and examined the patient, performed the documentation and the assessment and plan as written. Number of minutes spent on the visit: 10 Dictation was produced using [employer] dictation software. Please excuse any grammatical, word or spelling errors.
--- NOTE | 2024-12-23 14:23 | P.PN ---
Subjective Progress Note Date: 12/23/24 Patient is a 74-year-old female with hypertension, hyperlipidemia, DM (insulin- dependent), obesity, CAD status post CABG, ischemic cardiomyopathy (EF 25 to 30% with AICD), asthma, and osteoarthritis here for evaluation of a fall with generalized weakness. Patient reported that she developed shortness of breath, dry cough, chills, bilateral extremity swelling and generalized weakness when she was discharged from rehab on 12/09 from [facility]. She recently had a right direct anterior total hip arthroplasty on 11/24/2024. Since then she has fallen twice at home due to missed steps. She reported that her swelling has improved gradually over the past 2 weeks. On arrival to the ED, she also reported to have altered mental status. She denied chest pain, palpitations, nausea, vomiting, abdominal pain, extremity swelling, focal weakness, recent prolonged travel. On admission: Vitals: Temp 99 Fahrenheit, CO 99, RR 16, BP 114/60, O2 saturation 89% on room air Labs: WBC 17.4, hemoglobin 9.5, sodium 132, potassium 4.4, bicarb 23, BUN 16, creatinine 0.9, glucose 124, lactic acid 1.8, calcium 8.8, phosphorus 2.4, magnesium 1.7, TSH 6.7. Liver enzymes within normal ranges. Troponin negative. proBNP 3700. Urinalysis unremarkable. Cepheid 4 Plex negative. Urine Legionella antigen negative. Imaging: Chest x-ray showed cardiomegaly with prominent pulmonary vasculature and patchy bilateral lung infiltrates. Hip pelvis x-ray showed no acute osseous abnormalities. EKG showed V paced at a rate of 87, no ST-T changes, QTc 446 MS. 12/20/2024 patient seen and examined at bedside. No acute events overnight. Still requiring oxygen support with 2 to 3 L of nasal cannula. Patient has no symptoms or complaints. Labs: WBC 15.9, hemoglobin 9.3, MCV 93.6, platelet count 371,000, sodium 139, potassium 4.2, bicarb 27, BUN 16, creatinine 1.01, glucose 133, calcium 9.1, Pro-Fortino 0.22. Blood cultures positive for staph mecA/C positive. Imaging; chest x-ray independently interpreted showing improving pulmonary infiltrates 12/21/2024 patient seen and examined at bedside. No acute events overnight. Patient still requiring 2-3L oxygen. Labs: WBC 21.16, hemoglobin 9, MCV 92.9, platelet count 408,000, sodium 137, potassium 4.5, bicarb 30, BUN 29, creatinine 1.28, glucose 172, calcium 9.3, BNP 2180. Blood cultures positive for Staphylococcus epidermidis MEC A positive. Repeat CXR shows minimal improvement 12/22/2024 patient seen and examined at bedside. No acute events overnight. Patient still requiring 3 to 4 L oxygen via nasal cannula Labs: WBC 7.29, hemoglobin 9.4, platelet count 386,000, sodium 136, potassium 4.7, bicarb 28, BUN 37, creatinine 1.06, glucose 176, calcium 8.8 Imaging; echocardiogram showed LVEF 40 to 45% with moderate global hypokinesis, mild mitral and tricuspid regurgitation 12/23/2024 patient seen and examined at bedside. No acute events overnight. Patient oxygen requirements are increasing from 5 to 6 L high flow nasal cannula. Still having dry cough. Labs: WBC 7 point 0.6, hemoglobin 9.2, MCV 93, platelet count 381,000, sodium 130, potassium 4.4, chloride 102, bicarb 28, BUN 45, creatinine 1.11, glucose 96, calcium 9.1. ABG showed PO2 50 pH 7.42 and pCO2 45 Imaging; chest CT shows marked diffuse scattered groundglass opacities consisten t with pulmonary edema, ARDS or pneumonia, moderate cardiomegaly, 3.4 cm dilation of the main pulmonary artery Review of systems: Pertinent positives and negatives as discussed in HPI, a complete review of systems was performed and all other systems are negative. Physical examination: Vital signs reviewed General: non toxic, no distress, appears at stated age, 5L nasal cannula Derm: no unusual rashes/lesions, warm Head: atraumatic, normocephalic, symmetric Eyes: EOMI, anicteric sclera, pupils equal round reactive to light ENT: Nose and ears atraumatic Neck: No cervical lymphadenopathy, trachea midline, supple Mouth: no lip lesion, mucus membranes moist Cardiovascular: S1S2 reg, no murmur Lungs: Babasilar rhonchi, no rales, no accessory muscle use Abdominal: soft, nondistended, nontender to palpation, no guarding Ext: muscle strength 5 out of 5 in all 4 extremities grossly, no gross muscle atrophy, no contractures, positive dorsalis pedis pulse bilateral, no edema Neuro: CN II-XI grossly intact, no gross focal neuro deficits Psych: Alert and oriented x 3, appropriate affect and mood Assessment/Plan: The patient is admitted with an anticipated greater than 2 midnight stay for evaluation of acute respiratory failure due to HFrEF exacerbation Active: #. Acute hypoxic respiratory failure, HFrEF exacerbation with possible CAP vs ARDS #. Asthma exacerbation #. Ischemic cardiomyopathy (EF 25 to 30% with AICD) #. Leukocytosis, likley steroid induced -No episodes of fevers overnight. WBC elevated but not significantly to warrant infectious process -Supportive oxygen as needed. Patient still requiring increased oxygenation despite diuresis and antibiotics -Chest CT showed diffuse scattered groundglass opacities concerning for pneumonia or ARDS - Completed course of Abx Zithromax 500 mg p.o. and Rocephin 2 g IVPB on 12/22 -Initiate Solu-Medrol 40 mg IV daily -Lasix 40mg IV every 12 hours per pulmonology -Daily weights -Strict InOs -Fluid restriction 1800 -ABG today showed true hypoxia with PO250. pH 7.42 and pCO2 45 -Echocardiogram showed LVEF 40 to 45% with moderate global hypokinesis, mild mitral and tricuspid regurgitation -Blood cultures positive for staph mecA/C positive. Likely contaminant. Due to patient's elevated WBC and CXR findings, ID is consulted -Monitor CBC and renal fuction -Pulmonology consulted by ED -Consult cardiology #. Acute Kidney Injury, prerenal, improved - Cr 1.11 today -Monitor UO -Avoid nephrotoxic agents -No IV fluids for now due to CHF exacerbation #. Mechanical Fall secondary to above #. Recent Right anterior total hip arthroplasty Hip pelvis x-ray showed no acute osseous abnormalities. Ortho consulted by ED. No intervention recommended at this time D/c Ketorolac IV due to BEV. Continue with PO norco prn #. Normocytic anemia at baseline Hemoglobin 9.5 Monitor CBC Chronic Conditions: #. Diabetes mellitus, on insulin pump -Hemoglobin A1c 7.3 in November 2024 -Hold home insulin pump -Glucose Accu-Cheks ACHS -Initiate Insulin basal rates every 6 hours as needed -Monitor for hypoglycemia #. Hypertension #. Hyperlipidemia #. Obesity #. CAD status post CABG #. Osteoarthritis Resume home aspirin, bupropion 150, buspirone 10 mg, carvedilol 12.5 mg, clopid ogrel 75 mg, dapagliflozin 10 mg, ezetimibe 10 mg, fluvoxamine 100 mg, furosemide 20 mg gabapentin 300 mg, Synthroid 125 mcg, rosuvastatin 40 mg, Entresto, trazodone 50 mg DVT ppx: Lovenox 40 mg subcu daily GI prophylaxis: Pantoprazole 40 mg IVP twice daily CODE STATUS: Full Discussed with: Patient Anticipated discharge place: Home Zoila Walsh MD PGY-1 Internal Medicine Dictation was produced using [employer] dictation software. please excuse any grammatical, word or spelling errors. Attestation: I have seen and examined this patient with my resident, assessment and plan discussed with the resident, agree with assessment and plan as written above. Dr. Godfrey Objective - Vital Signs Vital signs: Vital Signs Temp 98.3 F 12/23/24 00:50 Pulse 71 12/23/24 00:50 Resp 16 12/23/24 00:50 BP 154/72 12/23/24 00:50 Pulse Ox 94 L 12/23/24 00:50 FiO2 Intake & Output 12/22/24 12/23/24 12/23/24 18:59 06:59 18:59 Intake Total 500 Balance 500 Weight 93.5 kg Intake: Oral 500 Other: # Voids 1 3 - Labs CBC & Chem 7: 12/23/24 04:04 12/23/24 04:04 Labs: Abnormal Lab Results - Last 24 Hours (Table) 12/22/24 12/22/24 12/22/24 Range/Units 10:58 11:31 17:22 WBC (4.50-10.00) 10*3/uL RBC (4.10-5.20) 10*6/uL Hgb (12.0-15.0) g/dL Hct (37.2-46.3) % MCHC (32.0-37.0) g/dL Immature Gran # (0.00-0.04) 10*3/uL Neutrophils # (1.80-7.70) 10*3/uL BUN (7-17) mg/dL Creatinine (0.52-1.04) mg/dL POC Glucose (mg/dL) 414 H 423 H 228 H (70-110) mg/dL 12/22/24 12/23/24 12/23/24 Range/Units 21:04 04:04 04:04 WBC 17.65 H (4.50-10.00) 10*3/uL RBC 3.21 L (4.10-5.20) 10*6/uL Hgb 9.2 L (12.0-15.0) g/dL Hct 29.9 L (37.2-46.3) % MCHC 30.8 L (32.0-37.0) g/dL Immature Gran # 0.29 H (0.00-0.04) 10*3/uL Neutrophils # 15.41 H (1.80-7.70) 10*3/uL BUN 45 H (7-17) mg/dL Creatinine 1.11 H (0.52-1.04) mg/dL POC Glucose (mg/dL) 254 H (70-110) mg/dL 12/23/24 Range/Units 06:19 WBC (4.50-10.00) 10*3/uL RBC (4.10-5.20) 10*6/uL Hgb (12.0-15.0) g/dL Hct (37.2-46.3) % MCHC (32.0-37.0) g/dL Immature Gran # (0.00-0.04) 10*3/uL Neutrophils # (1.80-7.70) 10*3/uL BUN (7-17) mg/dL Creatinine (0.52-1.04) mg/dL POC Glucose (mg/dL) 115 H (70-110) mg/dL Microbiology - Last 24 Hours (Table) 12/18/24 20:00 Blood Culture Gram Stain - Final Blood Blood Culture - Final Staphylococcus epidermidis Molecular ID
[2024-12-23 17:00] LABS: Glucose,Whole Blood 186 mg/dL (70-110)
[2024-12-23 20:18] LABS: Glucose,Whole Blood 261 mg/dL (70-110)
--- NOTE | 2024-12-23 20:20 | P.PN ---
Subjective Progress Note Date: 12/23/24 Principal diagnosis: Reason for follow-up is a positive blood culture Patient is a 74-year-old female with a past medical history significant for Asthma, Blood Disorder, Coronary Artery Disease (CAD), Chest Pain / Angina, Heart Failure, Diabetes Mellitus, Eye Disorder, GERD/Reflux, Hyperlipidemia, Hypertension, Myocardial Infarction (OR), Musculoskeletal Disorder, Osteoarthritis (OA), Renal Disease, Skin Disorder, Supraventricular Tachycardia (SVT), Thyroid Disorder who recently did have a right hip replacement, patient presented the hospital with increasing shortness of breath and cough did have a positive blood culture prompting this consultation. On today's evaluation that is 12/24/2023, patient did have a temperature of 98.1 F this morning and denies having any chills, patient is on 6 L nasal oxygen and breathing slightly comfortably no chest pain continue to have a dry cough, the patient did not have any nausea vomiting abdominal pain or any diarrhea, no pain to the right hip site. Patient white count is 17.65 creatinine is 1.11 blood cultures which so far negative Objective - Vital Signs Vital signs: Vital Signs Temp 97.9 F 12/23/24 14:01 Pulse 75 12/23/24 17:09 Resp 20 12/23/24 14:01 BP 91/57 12/23/24 14:01 Pulse Ox 92 L 12/23/24 14:01 FiO2 Intake & Output 12/22/24 12/23/24 12/23/24 18:59 06:59 18:59 Intake Total 500 Output Total 550 Balance 500 -550 Weight 93.5 kg Intake: Oral 500 Output: Urine 550 Other: Voiding Method External Catheter # Voids 1 3 650 - Exam GENERAL DESCRIPTION: An elderly female up in the chair in no distress RESPIRATORY SYSTEM: Unlabored breathing , decreased breath sounds at bases HEART: S1 S2 regular rate and rhythm , ABDOMEN: Soft , no tenderness EXTREMITIES: No edema feet - Labs CBC & Chem 7: 12/23/24 04:04 12/23/24 04:04 Labs: Abnormal Lab Results - Last 24 Hours (Table) 12/22/24 12/23/24 12/23/24 Range/Units 21:04 04:04 04:04 WBC 17.65 H (4.50-10.00) 10*3/uL RBC 3.21 L (4.10-5.20) 10*6/uL Hgb 9.2 L (12.0-15.0) g/dL Hct 29.9 L (37.2-46.3) % MCHC 30.8 L (32.0-37.0) g/dL Immature Gran # 0.29 H (0.00-0.04) 10*3/uL Neutrophils # 15.41 H (1.80-7.70) 10*3/uL ABG pO2 (83-108) mmHg ABG HCO3 (21-25) mmol/L ABG Total CO2 (19-24) mmol/L ABG O2 Saturation (94-97) % Hemoglobin (11.4-16.0) gm/dL BUN 45 H (7-17) mg/dL Creatinine 1.11 H (0.52-1.04) mg/dL POC Glucose (mg/dL) 254 H (70-110) mg/dL 12/23/24 12/23/24 12/23/24 Range/Units 06:19 10:22 11:36 WBC (4.50-10.00) 10*3/uL RBC (4.10-5.20) 10*6/uL Hgb (12.0-15.0) g/dL Hct (37.2-46.3) % MCHC (32.0-37.0) g/dL Immature Gran # (0.00-0.04) 10*3/uL Neutrophils # (1.80-7.70) 10*3/uL ABG pO2 50 L* (83-108) mmHg ABG HCO3 29 H (21-25) mmol/L ABG Total CO2 31 H (19-24) mmol/L ABG O2 Saturation 85.2 L (94-97) % Hemoglobin 9.6 L (11.4-16.0) gm/dL BUN (7-17) mg/dL Creatinine (0.52-1.04) mg/dL POC Glucose (mg/dL) 115 H 292 H (70-110) mg/dL 12/23/24 Range/Units 16:59 WBC (4.50-10.00) 10*3/uL RBC (4.10-5.20) 10*6/uL Hgb (12.0-15.0) g/dL Hct (37.2-46.3) % MCHC (32.0-37.0) g/dL Immature Gran # (0.00-0.04) 10*3/uL Neutrophils # (1.80-7.70) 10*3/uL ABG pO2 (83-108) mmHg ABG HCO3 (21-25) mmol/L ABG Total CO2 (19-24) mmol/L ABG O2 Saturation (94-97) % Hemoglobin (11.4-16.0) gm/dL BUN (7-17) mg/dL Creatinine (0.52-1.04) mg/dL POC Glucose (mg/dL) 186 H (70-110) mg/dL Microbiology - Last 24 Hours (Table) 12/22/24 02:29 Blood Culture - Preliminary Blood Assessment and Plan (1) Positive blood culture Current Visit: Yes Status: Acute Code(s): R78.81 - BACTEREMIA SNOMED Code(s): 217950046 (2) Leukocytosis Current Visit: Yes Status: Acute Code(s): D72.829 - ELEVATED WHITE BLOOD CELL COUNT, UNSPECIFIED SNOMED Code(s): 657567705 Plan: 1patient with a positive blood culture with staph epi which is more likely skin contamination this patient who recently did have a right hip replacement however the right hip surgical site incision is currently healed with no cellulitis and the patient denies having any pain to the right hip area, no need for vancomycin however blood culture has been repeated 2patient presented hospital with increasing shortness of breath and did have a cough question of asthma exacerbation with tracheobronchitis chest x-ray was aty pical pneumonia 3patient white count is still elevated to 17,000 but no worsening repeat blood culture have been negative no need for vancomycin at this point Dictation was produced using [employer] dictation software. please excuse any grammatical, word or spelling errors. Time with Patient: Less than 30
[2024-12-23] MEDS: DEXAMETHASONE SOD PHOSPHATE 10 MG/ML 1 ML VIAL IVP ONE (20:25)
[2024-12-23] MEDS: FUROSEMIDE 10 MG/ML 4 ML VIAL IV SCH (20:25)
[2024-12-23] MEDS: SYMBICORT 160-4.5 MCG INHALER INHALATION SCH (20:47)
[2024-12-24 01:53] LABS: Glucose,Whole Blood 261 mg/dL (70-110)
[2024-12-24 06:18] LABS: Glucose,Whole Blood 233 mg/dL (70-110)
[2024-12-24] MEDS: ERGOCALCIFEROL 1,250 MCG (50,000 IU) CAPSULE PO SCH (09:24)
[2024-12-24 12:03] LABS: Glucose,Whole Blood 287 mg/dL (70-110)
--- NOTE | 2024-12-24 13:16 | P.PN ---
Subjective Progress Note Date: 12/24/24 Patient is a 75-year-old female with past medical history significant for hypertension, hyperlipidemia, insulin-dependent diabetes mellitus, obesity, coronary artery disease with previous CABG, ischemic cardiomyopathy with an ejection fraction of 25 to 30% with AICD, asthma, and osteoarthritis. Of note, patient recently underwent right direct anterior total hip arthroplasty on 11/24/2024. She was discharged from the hospital to [facility] for rehabilitation. While at the outside facility, developed shortness of breath, coughing, and generalized weakness. States she was released from [facility] to home last Wednesday on November. Since then, she has fallen twice while at home. Brought in by EMS yesterday evening hypoxic and confused. She was placed on supplemental oxygen. Workup in the emergency department including a chest x-ray showing patchy bilateral lung infiltrates concerning for congestive heart failure or atypical pneumonias. CBC: WBC count 14.7, hemoglobin 9.5 g/dL, platelets 374. BMP: Sodium 132, potassium 4.4, chloride 100, serum bicarb 23, BUN 16, creatinine 0.92, glucose 124. Lactic 1.8. LFTs unremarkable. Troponin less than 0.012. NT proBNP 6.74. Viral 4 Plex negative for influenza A/B, RSV, COVID. Urinalysis unremarkable for UTI. Patient currently being evaluated on the general medical floor. She is alert and oriented x 3. Endorses above menti oned complaints. Does report history of asthma. Has had increased work of breathing over the last couple weeks. Suffering from persistent nonproductive cough over the same timeframe. States her symptoms actually started at [facility]. She has had a poor appetite with occasional nausea and vomiting. She has been able to take some of her home medications. Has had intermittent fevers with a Tmax of 100.8 F. Was started on empiric antibiotics in the ED, in the form azithromycin and Rocephin. Normal saline infusing at 50 mL/h. Denies any chest pain. Does endorse unilateral right lower lower extremity edema. No heart palpitations, syncopal events, hemoptysis. Current vital signs: Temperature 100.8 F, heart rate 95 bpm, blood pressure 124/54 mmHg, nontachypneic, SpO2 recorded at 96% on 3 L/min nasal cannula. The patient is seen today December 20, 2024 and follow-up on the regular medical floor. She is currently sitting up in bed. Awake and alert in no acute distress. Feeling a bit better today compared to yesterday. Maintaining O2 saturations in the 90s on 3 L/min per nasal cannula. Chest x-ray shows continued infiltrate of the right lung with improvement in the left lung. Blood culture is coming back positive. ID pending. White count 15.9. Hemoglobin 9.3. Platelets 371. Sodium 139. Potassium 4.2. Bicarb 27. BUN 16. Creatinine 1.01. Glucose 133. She remains on DuoNeb inhalations, IV Solu- Medrol, IV diuretics. Lovenox for DVT prophylaxis. Antibiotics in the form of ceftriaxone. The patient is seen today December 21, 2024 in follow-up on the regular medical floor. She is currently sitting up in a chair. Awake and alert in no acute distress. Maintaining O2 saturations in the 90s on 3 L/min per nasal cannula. She has been afebrile. Hemodynamically stable. Blood cultures showing staph epidermidis, most likely contaminant. White count 21.1. Hemoglobin 9.0. Platelets 409. Sodium 137. Potassium 4.5. Bicarb 30. BUN 29. Creatinine 1. 28. Glucose 172. proBNP 2180. She remains on DuoNeb inhalations, Solu-Medrol. Antibiotics in the form of ceftriaxone. Lovenox for DVT prophylaxis. Remains on IV diuretics. No accurate intake and output recorded. Chest x-ray showing similar findings with basilar infiltrates right greater than left. The patient is seen today December 22, 2024 in follow-up on the regular medical floor. She is sitting up at the bedside. Awake and alert in no acute distress. She has been slow to progress. She is still dyspneic with minimal exertion. Dyspneic with conversation. She is maintaining O2 saturations in the 90s on 7 L high flow nasal cannula. Echocardiogram reveals impaired left ventricular systolic function with an ejection fraction [address] scan of the chest revealed marked diffuse scattered groundglass opacities consistent with pulmonary edema, ARDS or pneumonia. AICD in place. Blood culture positive for Staphylococcus epidermidis. White count 17.9. Hemoglobin 9.4. Platelets 386. Sodium 136. Potassium 4.7. Bicarb 28. BUN 37. Creatinine 1.06. Glucose 176. She remains on DuoNeb inhalations, Solu-Medrol. Remains on oral diuretics. Antibiotics in the form of ceftriaxone. Heparin for DVT prophylaxis. The patient is seen today December 23, 2024 in follow-up on the regular medical floor. She is currently resting in bed. Awake and alert in no acute distress. Feeling a bit better today compared to yesterday. She is maintaining O2 saturations in the 90s on 6 L high flow nasal cannula. She remains afebrile. Hemodynamically stable. Initial blood cultures showing staph epidermidis. Follow-up blood culture reveals no growth. White count 17.6. Hemoglobin 9.2. Platelets 381. Sodium 138. Potassium 4.4. Bicarb 28. BUN 45. Creatinine 1.11. Glucose 115. Arterial blood gases on 44% FiO2 revealed a PO2 of 50, LLA013 and a pH of 7.42. She remains on DuoNeb inhalations, Solu-Medrol and Robitussin as needed. Heparin for DVT prophylaxis. She remains on Lasix 40 mg every 12 hours. No accurate intake and output recorded. The patient is seen today December 24, 2024 in follow-up on the regular medical floor. She is awake and alert in no acute distress. Resting in bed. No worsening shortness of breath, cough or congestion. She is still requiring 10 L high flow nasal cannula to maintain O2 saturations in the 90s. Lung sounds improved. Blood cultures were positive for Staphylococcus epidermidis. Most likely a contaminant. Follow-up blood culture revealed no growth. Glucose 233. She remains on DuoNeb inhalations, Symbicort, Solu-Medrol. She remains on IV Lasix. Heparin for DVT prophylaxis. Currently in a -1.9 L balance. Objective - Vital Signs Vital signs: Vital Signs Temp 97.6 F 12/24/24 07:18 Pulse 68 12/24/24 12:59 Resp 18 12/24/24 07:18 BP 103/65 12/24/24 07:18 Pulse Ox 90 L 12/24/24 09:02 FiO2 Intake & Output 12/23/24 12/24/24 12/24/24 18:59 06:59 18:59 Output Total 550 1400 1350 Balance -550 -1400 -1350 Output: Urine 550 1400 1350 Other: Voiding Method External Catheter External Catheter # Voids 650 - Exam GENERAL EXAM: Alert, 74-year-old female, resting in bed, on 10 L/min nasal cannula, in no acute distress. Insulin pump noted. HEAD: Normocephalic and atraumatic EYES: Normal reaction of pupils, equal size. NOSE: Clear with pink turbinates. THROAT: No erythema or exudates. NECK: No masses, no JVD. CHEST: No chest wall deformity. Left chest implanted device. LUNGS: Equal air entry crackles in the posterior bases right greater than left. CVS: S1 and S2 normal with no audible murmur, regular rhythm. No extra heart sounds ABDOMEN: No hepatosplenomegaly, active bowel sounds, no guarding or rigidity. SPINE: No scoliosis or deformity SKIN: No rashes CENTRAL NERVOUS SYSTEM: No focal deficits, tone is normal in all 4 extremities. EXTREMITIES: Right anterior hip incision is approximated, pink, without dehiscence or drainage. Full range of motion. Right lower extremity pitting edema. Peripheral pulses are intact. - Labs CBC & Chem 7: 12/23/24 04:04 12/23/24 04:04 Labs: Abnormal Lab Results - Last 24 Hours (Table) 12/23/24 12/23/24 12/24/24 Range/Units 16:59 20:16 01:51 POC Glucose (mg/dL) 186 H 261 H 261 H (70-110) mg/dL 12/24/24 12/24/24 Range/Units 06:16 12:01 POC Glucose (mg/dL) 233 H 287 H (70-110) mg/dL Microbiology - Last 24 Hours (Table) 12/22/24 02:29 Blood Culture - Preliminary Blood Assessment and Plan Assessment: Healthcare associated pneumonia, bilateral. CT scan of the chest reveals marked diffuse scattered groundglass opacities consistent with pulmonary edema, ARDS or pneumonia. Moderate cardiomegaly. Procalcitonin negative Acute asthma exacerbation Acute hypoxemic respiratory failure, currently on 7 L/min nasal cannula, secondary to above; chest x-ray remarkable for cardiomegaly, possible pulmonary vascular congestion, patchy bilateral lower lung infiltrates. Prior sternotomy wires. AICD generator and leads. Concerning for atypical pneumonia or congestive heart failure Acute febrile illness Acute leukocytosis History of right direct anterior total hip arthroplasty on November 24 Acute blood loss anemia, expected outcome of surgery Hypertension History of hyperlipidemia Insulin-dependent diabetes mellitus Obesity with a BMI of 35.4 kg/m Coronary artery disease, with history of CABG and cardiac stents History of ischemic cardiomyopathy with an ejection fraction improved to 40 to 45% Implanted AICD/pacemaker Hypothyroidism Anxiety/depression Plan: The patient was seen and evaluated Medications reviewed Currently on 10 L high flow nasal cannula Titrate down the FiO2 as tolerated Continue DuoNeb inhalations Continue Symbicort Continue steroids Continue Lasix to 40 mg IV twice daily Heparin for DVT prophylaxis Follow-up labs in a.m. We will continue to follow I have personally seen and examined the patient, performed the documentation and the assessment and plan as written. Number of minutes spent on the visit: 10 Dictation was produced using [employer] dictation software. Please excuse any grammatical, word or spelling errors.
--- NOTE | 2024-12-24 14:15 | P.PN ---
Subjective Progress Note Date: 12/24/24 Patient is a 74-year-old female with hypertension, hyperlipidemia, DM (insulin- dependent), obesity, CAD status post CABG, ischemic cardiomyopathy (EF 25 to 30% with AICD), asthma, and osteoarthritis here for evaluation of a fall with generalized weakness. Patient reported that she developed shortness of breath, dry cough, chills, bilateral extremity swelling and generalized weakness when she was discharged from rehab on 12/09 from [facility]. She recently had a right direct anterior total hip arthroplasty on 11/24/2024. Since then she has fallen twice at home due to missed steps. She reported that her swelling has improved gradually over the past 2 weeks. On arrival to the ED, she also r eported to have altered mental status. She denied chest pain, palpitations, nausea, vomiting, abdominal pain, extremity swelling, focal weakness, recent prolonged travel. On admission: Vitals: Temp 99 Fahrenheit, MI 99, RR 16, BP 114/60, O2 saturation 89% on room air Labs: WBC 17.4, hemoglobin 9.5, sodium 132, potassium 4.4, bicarb 23, BUN 16, creatinine 0.9, glucose 124, lactic acid 1.8, calcium 8.8, phosphorus 2.4, magnesium 1.7, TSH 6.7. Liver enzymes within normal ranges. Troponin negative. proBNP 3700. Urinalysis unremarkable. Cepheid 4 Plex negative. Urine Legionella antigen negative. Imaging: Chest x-ray showed cardiomegaly with prominent pulmonary vasculature and patchy bilateral lung infiltrates. Hip pelvis x-ray showed no acute osseous abnormalities. EKG showed V paced at a rate of 87, no ST-T changes, QTc 446 MS. 12/20/2024 patient seen and examined at bedside. No acute events overnight. Still requiring oxygen support with 2 to 3 L of nasal cannula. Patient has no symptoms or complaints. Labs: WBC 15.9, hemoglobin 9.3, MCV 93.6, platelet count 371,000, sodium 139, potassium 4.2, bicarb 27, BUN 16, creatinine 1.01, glucose 133, calcium 9.1, Pro-Fortino 0.22. Blood cultures positive for staph mecA/C positive. Imaging; chest x-ray independently interpreted showing improving pulmonary infiltrates 12/21/2024 patient seen and examined at bedside. No acute events overnight. Patient still requiring 2-3L oxygen. Labs: WBC 21.16, hemoglobin 9, MCV 92.9, platelet count 408,000, sodium 137, potassium 4.5, bicarb 30, BUN 29, creatinine 1.28, glucose 172, calcium 9.3, BNP 2180. Blood cultures positive for Staphylococcus epidermidis MEC A positive. Repeat CXR shows minimal improvement 12/22/2024 patient seen and examined at bedside. No acute events overnight. Patient still requiring 3 to 4 L oxygen via nasal cannula Labs: WBC 7.29, hemoglobin 9.4, platelet count 386,000, sodium 136, potassium 4.7, bicarb 28, BUN 37, creatinine 1.06, glucose 176, calcium 8.8 Imaging; echocardiogram showed LVEF 40 to 45% with moderate global hypokinesis, mild mitral and tricuspid regurgitation 12/23/2024 patient seen and examined at bedside. No acute events overnight. Patient oxygen requirements are increasing from 5 to 6 L high flow nasal cannula. Still having dry cough. Labs: WBC 7 point 0.6, hemoglobin 9.2, MCV 93, platelet count 381,000, sodium 130, potassium 4.4, chloride 102, bicarb 28, BUN 45, creatinine 1.11, glucose 96, calcium 9.1. ABG showed PO2 50 pH 7.42 and pCO2 45 Imaging; chest CT shows marked diffuse scattered groundglass opacities consistent with pulmonary edema, ARDS or pneumonia, moderate cardiomegaly, 3.4 cm dilation of the main pulmonary artery 12/24/2024 Patient evaluated in follow-up on the medical floor. Patient remains on oxygen support increased up to 10 L high flow cannula with saturations of 90%. patient is currently on a course of IV Solu-Medrol as well as IV Lasix twice daily. She has completed a course of antibiotics. She is also maintained on a fluid restriction. ID and pulmonology are following this patient closely. Blood culture finalized revealing Staphylococcus epidermidis which is felt to be contaminant species Review of Systems Constitutional: Denied any fatigue denied any fever. Cardio vascular: denied any chest pain, palpitations Gastrointestinal: denied any nausea, vomiting, diarrhea Pulmonary: Denied any shortness of breath cough Neurologic denied any new focal deficits All inpatient medications were reviewed and appropriate changes in these medications as dictated in the interval history and assessment and plan. PHYSICAL EXAMINATION: GENERAL: The patient is alert and oriented x3, not in any acute distress. Well developed, well nourished. HEENT: Pupils are round and equally reacting to light. EOMI. No scleral icterus. No conjunctival pallor. Normocephalic, atraumatic. No pharyngeal erythema. No thyromegaly. CARDIOVASCULAR: S1 and S2 present. No murmurs, rubs, or gallops. PULMONARY: Chest is clear to auscultation, no wheezing or crackles. ABDOMEN: Soft, nontender, nondistended, normoactive bowel sounds. No palpable organomegaly. MUSCULOSKELETAL: No joint swelling or deformity. EXTREMITIES: No cyanosis, clubbing, or pedal edema. NEUROLOGICAL: Gross neurological examination did not reveal any focal deficits. SKIN: No rashes. Assessment/Plan: The patient is admitted with an anticipated greater than 2 midnight stay for evaluation of acute respiratory failure due to HFrEF exacerbation Active: #. Acute hypoxic respiratory failure, HFrEF exacerbation with possible CAP vs ARDS #. Asthma exacerbation #. Ischemic cardiomyopathy (EF 25 to 30% with AICD) #. Leukocytosis, likley steroid induced -No episodes of fevers overnight. WBC elevated but not significantly to warrant infectious process -Supportive oxygen as needed. Patient still requiring increased oxygenation despite diuresis and antibiotics -Chest CT showed diffuse scattered groundglass opacities concerning for pneumonia or ARDS - Completed course of Abx Zithromax 500 mg p.o. and Rocephin 2 g IVPB on 12/22 -Initiate Solu-Medrol 40 mg IV daily -Lasix 40mg IV every 12 hours per pulmonology -Daily weights -Strict InOs -Fluid restriction 1800 -ABG today showed true hypoxia with PO250. pH 7.42 and pCO2 45 -Echocardiogram showed LVEF 40 to 45% with moderate global hypokinesis, mild mitral and tricuspid regurgitation -Blood cultures positive for staph mecA/C positive. Likely contaminant. Due to patient's elevated WBC and CXR findings, ID is consulted -Monitor CBC and renal fuction -Pulmonology consulted by ED -Consult cardiology #. Acute Kidney Injury, prerenal, improved - Cr 1.11 today -Monitor UO -Avoid nephrotoxic agents -No IV fluids for now due to CHF exacerbation #. Mechanical Fall secondary to above #. Recent Right anterior total hip arthroplasty Hip pelvis x-ray showed no acute osseous abnormalities. Ortho consulted by ED. No intervention recommended at this time D/c Ketorolac IV due to BEV. Continue with PO norco prn #. Normocytic anemia at baseline Hemoglobin 9.5 Monitor CBC Chronic Conditions: #. Diabetes mellitus, on insulin pump -Hemoglobin A1c 7.3 in November 2024 -Hold home insulin pump -Glucose Accu-Cheks ACHS -Initiate Insulin basal rates every 6 hours as needed -Monitor for hypoglycemia #. Hypertension #. Hyperlipidemia #. Obesity #. CAD status post CABG #. Osteoarthritis Resume home aspirin, bupropion 150, buspirone 10 mg, carvedilol 12.5 mg, clopidogrel 75 mg, dapagliflozin 10 mg, ezetimibe 10 mg, fluvoxamine 100 mg, furosemide 20 mg gabapentin 300 mg, Synthroid 125 mcg, rosuvastatin 40 mg, Entresto, trazodone 50 mg DVT ppx: Lovenox 40 mg subcu daily GI prophylaxis: Pantoprazole 40 mg IVP twice daily CODE STATUS: Full Discussed with: Patient Anticipated discharge place: Home The impression and plan of care has been dictated by Karen Baldwin, Nurse Practitioner as directed. Dr. Bekah MD I have performed a history and physical examination and medical decision making of this patient, discussed the same with the dictator, and agree with the dictators assessment and plan as written, documented as a scribe. Based on total visit time, I have performed more than 50% of this visit. Objective - Vital Signs Vital signs: Vital Signs Temp 97.6 F 12/24/24 07:18 Pulse 70 12/24/24 09:24 Resp 18 12/24/24 07:18 BP 103/65 12/24/24 07:18 Pulse Ox 90 L 12/24/24 09:02 FiO2 Intake & Output 12/23/24 12/24/24 12/24/24 18:59 06:59 18:59 Output Total 550 1400 600 Balance -550 -1400 -600 Output: Urine 550 1400 600 Other: Voiding Method External Catheter External Catheter # Voids 650 - Labs CBC & Chem 7: 12/23/24 04:04 12/23/24 04:04 Labs: Abnormal Lab Results - Last 24 Hours (Table) 12/23/24 12/23/24 12/23/24 Range/Units 10:22 11:36 16:59 ABG pO2 50 L* (83-108) mmHg ABG HCO3 29 H (21-25) mmol/L ABG Total CO2 31 H (19-24) mmol/L ABG O2 Saturation 85.2 L (94-97) % Hemoglobin 9.6 L (11.4-16.0) gm/dL POC Glucose (mg/dL) 292 H 186 H (70-110) mg/dL 12/23/24 12/24/24 12/24/24 Range/Units 20:16 01:51 06:16 ABG pO2 (83-108) mmHg ABG HCO3 (21-25) mmol/L ABG Total CO2 (19-24) mmol/L ABG O2 Saturation (94-97) % Hemoglobin (11.4-16.0) gm/dL POC Glucose (mg/dL) 261 H 261 H 233 H (70-110) mg/dL Microbiology - Last 24 Hours (Table) 12/22/24 02:29 Blood Culture - Preliminary Blood
[2024-12-24 16:31] LABS: Glucose,Whole Blood 230 mg/dL (70-110)
[2024-12-24 20:31] LABS: Glucose,Whole Blood 355 mg/dL (70-110)
[2024-12-24 20:42] LABS: ABG HCO3 31 mmol/L (21-25); ABG PCO2 43 mmHg (35-45); ABG PH 7.46 (7.35-7.45); ABG PO2 66 mmHg (83-108); ABG TCO2 32 mmol/L (19-24); Allen Test Performed? Yes
[2024-12-24 20:52] LABS: Glucose,Whole Blood 361 mg/dL (70-110)
[2024-12-24] MEDS: DEXAMETHASONE SOD PHOSPHATE 10 MG/ML 1 ML VIAL IVP STA (21:28)
--- NOTE | 2024-12-24 21:49 | XR ---
EXAMINATION TYPE: XR chest 1V portable DATE OF EXAM: 12/24/2024 9:44 PM COMPARISON: Chest radiographs from 12/21/2024. CLINICAL INDICATION: Female, 74 years old with history of respiratory distress; TECHNIQUE: XR chest 1V portable Frontal view of the chest. FINDINGS: Lungs/Pleura: There is no evidence of pleural effusion, focal consolidation, or pneumothorax. Pulmonary vascularity: Pulmonary vascular congestion. Heart/mediastinum: Cardiomediastinal silhouette is enlarged. Atherosclerotic calcifications are seen in the aorta. Two lead cardiac conduction device overlying the left hemithorax with lead tips projec ting over the right ventricle and right atrium. Musculoskeletal: No acute osseous pathology. IMPRESSION: Cardiomegaly, pulmonary vascular congestion and bilateral pleural effusions. Correlate with BNP for c ongestive heart failure. [facility], , 12/24/2024 9:47 PM
[2024-12-25 02:01] LABS: Glucose,Whole Blood 214 mg/dL (70-110)
[2024-12-25 05:42] LABS: Basophils # (A) 0.04 10*3/uL (0.00-0.10); Basophils % (A) 0.2 %; Eosinophils # (A) 0.01 10*3/uL (0.04-0.35); Eosinophils % (A) 0.1 %; HCT 30.1 % (37.2-46.3); HGB 9.7 g/dL (12.0-15.0); Lymphocytes # (A) 0.55 10*3/uL (0.90-5.00); Lymphocytes % (A) 3.1 %; MCH 29.6 pg (27.0-32.0); MCHC 32.2 g/dL (32.0-37.0); MCV 91.8 fL (80.0-97.0); Monocytes # (A) 0.48 10*3/uL (0.20-1.00); Monocytes % (A) 2.7 %; Neutrophils # (A) 16.37 10*3/uL (1.80-7.70); Neutrophils % (A) 91.3 %; Platelet Count 350 10*3/uL (140-440); RBC 3.28 10*6/uL (4.10-5.20); RDW 14.0 % (11.5-14.5); WBC 17.91 10*3/uL (4.50-10.00)
[2024-12-25 06:03] LABS: African American GFR (CKD) 55 (>60 ml/min/1.73 sqM); Blood Urea Nitrogen 49 mg/dL (7-17); Calcium 9.0 mg/dL (8.4-10.2); Carbon Dioxide 31 mmol/L (22-30); Chloride 100 mmol/L (98-107); Glucose 224 mg/dL (74-99); Magnesium 2.2 mg/dL (1.6-2.3); Non-African American GFR(CKD) 47 (>60 ml/min/1.73 sqM); Potassium 4.8 mmol/L (3.5-5.1)
[2024-12-25 06:11] LABS: Glucose,Whole Blood 288 mg/dL (70-110)
[2024-12-25 06:11] LABS: Anion Gap 6 mmol/L; Sodium 137 mmol/L (137-145)
--- NOTE | 2024-12-25 07:42 | XR ---
EXAMINATION TYPE: XR chest 1V portable DATE OF EXAM: 12/25/2024 5:20 AM COMPARISON: 12/24/2024 CLINICAL INDICATION: Female, 74 years old with history of CHF, TECHNIQUE: XR chest 1V portable view(s) obtained. FINDINGS: The heart size is borderline prominent. The pulmonary vasculature is prominent. Diffuse increased lung markings are present. Pacemaker overlies left chest. Sternotomy wires are pres ent from prior CABG. IMPRESSION: 1. Clinical correlation recommended for congestive heart failure. Findings are similar to comparison [facility], , 12/25/2024 7:40 AM
[2024-12-25 11:34] LABS: Glucose,Whole Blood 424 mg/dL (70-110)
[2024-12-25] MEDS: methylPREDNISolone SOD SUCCI 125 MG/2 ML VIAL IV SCH (12:55)
--- NOTE | 2024-12-25 14:04 | P.PN ---
Subjective Progress Note Date: 12/25/24 Patient is a 75-year-old female with past medical history significant for hypertension, hyperlipidemia, insulin-dependent diabetes mellitus, obesity, coronary artery disease with previous CABG, ischemic cardiomyopathy with an ejection fraction of 25 to 30% with AICD, asthma, and osteoarthritis. Of note, patient recently underwent right direct anterior total hip arthroplasty on 11/24/2024. She was discharged from the hospital to [facility] for rehabilitation. While at the outside facility, developed shortness of breath, coughing, and generalized weakness. States she was released from [facility] to home last Wednesday on November. Since then, she has fallen twice while at home. Brought in by EMS yesterday evening hypoxic and confused. She was placed on supplemental oxygen. Workup in the emergency department including a chest x-ray showing patchy bilateral lung infiltrates concerning for congestive heart failure or atypical pneumonias. CBC: WBC count 14.7, hemoglobin 9.5 g/dL, platelets 374. BMP: Sodium 132, potassium 4.4, chloride 100, serum bicarb 23, BUN 16, creatinine 0.92, glucose 124. Lactic 1.8. LFTs unremarkable. Troponin less than 0.012. NT proBNP 6.74. Viral 4 Plex negative for influenza A/B, RSV, COVID. Urinalysis unremarkable for UTI. Patient currently being evaluated on the general medical floor. She is alert and oriented x 3. Endorses above menti oned complaints. Does report history of asthma. Has had increased work of breathing over the last couple weeks. Suffering from persistent nonproductive cough over the same timeframe. States her symptoms actually started at [facility]. She has had a poor appetite with occasional nausea and vomiting. She has been able to take some of her home medications. Has had intermittent fevers with a Tmax of 100.8 F. Was started on empiric antibiotics in the ED, in the form azithromycin and Rocephin. Normal saline infusing at 50 mL/h. Denies any chest pain. Does endorse unilateral right lower lower extremity edema. No heart palpitations, syncopal events, hemoptysis. Current vital signs: Temperature 100.8 F, heart rate 95 bpm, blood pressure 124/54 mmHg, nontachypneic, SpO2 recorded at 96% on 3 L/min nasal cannula. The patient is seen today December 20, 2024 and follow-up on the regular medical floor. She is currently sitting up in bed. Awake and alert in no acute distress. Feeling a bit better today compared to yesterday. Maintaining O2 saturations in the 90s on 3 L/min per nasal cannula. Chest x-ray shows continued infiltrate of the right lung with improvement in the left lung. Blood culture is coming back positive. ID pending. White count 15.9. Hemoglobin 9.3. Platelets 371. Sodium 139. Potassium 4.2. Bicarb 27. BUN 16. Creatinine 1.01. Glucose 133. She remains on DuoNeb inhalations, IV Solu- Medrol, IV diuretics. Lovenox for DVT prophylaxis. Antibiotics in the form of ceftriaxone. The patient is seen today December 21, 2024 in follow-up on the regular medical floor. She is currently sitting up in a chair. Awake and alert in no acute distress. Maintaining O2 saturations in the 90s on 3 L/min per nasal cannula. She has been afebrile. Hemodynamically stable. Blood cultures showing staph epidermidis, most likely contaminant. White count 21.1. Hemoglobin 9.0. Platelets 409. Sodium 137. Potassium 4.5. Bicarb 30. BUN 29. Creatinine 1. 28. Glucose 172. proBNP 2180. She remains on DuoNeb inhalations, Solu-Medrol. Antibiotics in the form of ceftriaxone. Lovenox for DVT prophylaxis. Remains on IV diuretics. No accurate intake and output recorded. Chest x-ray showing similar findings with basilar infiltrates right greater than left. The patient is seen today December 22, 2024 in follow-up on the regular medical floor. She is sitting up at the bedside. Awake and alert in no acute distress. She has been slow to progress. She is still dyspneic with minimal exertion. Dyspneic with conversation. She is maintaining O2 saturations in the 90s on 7 L high flow nasal cannula. Echocardiogram reveals impaired left ventricular systolic function with an ejection fraction [address] scan of the chest revealed marked diffuse scattered groundglass opacities consistent with pulmonary edema, ARDS or pneumonia. AICD in place. Blood culture positive for Staphylococcus epidermidis. White count 17.9. Hemoglobin 9.4. Platelets 386. Sodium 136. Potassium 4.7. Bicarb 28. BUN 37. Creatinine 1.06. Glucose 176. She remains on DuoNeb inhalations, Solu-Medrol. Remains on oral diuretics. Antibiotics in the form of ceftriaxone. Heparin for DVT prophylaxis. The patient is seen today December 23, 2024 in follow-up on the regular medical floor. She is currently resting in bed. Awake and alert in no acute distress. Feeling a bit better today compared to yesterday. She is maintaining O2 saturations in the 90s on 6 L high flow nasal cannula. She remains afebrile. Hemodynamically stable. Initial blood cultures showing staph epidermidis. Follow-up blood culture reveals no growth. White count 17.6. Hemoglobin 9.2. Platelets 381. Sodium 138. Potassium 4.4. Bicarb 28. BUN 45. Creatinine 1.11. Glucose 115. Arterial blood gases on 44% FiO2 revealed a PO2 of 50, [id number] and a pH of 7.42. She remains on DuoNeb inhalations, Solu-Medrol and Robitussin as needed. Heparin for DVT prophylaxis. She remains on Lasix 40 mg every 12 hours. No accurate intake and output recorded. The patient is seen today December 24, 2024 in follow-up on the regular medical floor. She is awake and alert in no acute distress. Resting in bed. No worsening shortness of breath, cough or congestion. She is still requiring 10 L high flow nasal cannula to maintain O2 saturations in the 90s. Lung sounds improved. Blood cultures were positive for Staphylococcus epidermidis. Most likely a contaminant. Follow-up blood culture revealed no growth. Glucose 233. She remains on DuoNeb inhalations, Symbicort, Solu-Medrol. She remains on IV Lasix. Heparin for DVT prophylaxis. Currently in a -1.9 L balance. The patient is seen today December 25, 2024 in follow-up in the intensive care unit. She was transferred down here last evening after having issues with worsening hypoxemia. She is currently on Airvo high flow oxygen at 50 L and 50% FiO2. She is afebrile. Hemodynamically stable. Chest x-ray continues to show cardiomegaly with pulmonary vascular congestion and bilateral pleural effusions. Follow-up blood culture revealed no growth. White count 17.9. Hemoglobin 9.7. Platelets 350. Sodium 137. Potassium 4.8. Bicarb 31. BUN 49. Creatinine 1.16. Glucose 224. She remains on DuoNeb inhalations, Symbicort, Solu-Medrol. Heparin for DVT prophylaxis. She remains on Lasix 40 mg IV every 12 hours. C urrently in a -4 L balance. Objective - Vital Signs Vital signs: Vital Signs Temp 98.2 F 12/25/24 12:00 Pulse 64 12/25/24 13:00 Resp 23 12/25/24 13:00 BP 116/52 12/25/24 13:00 Pulse Ox 99 12/25/24 13:00 FiO2 50 12/25/24 12:03 Intake & Output 12/24/24 12/25/24 12/25/24 18:59 06:59 18:59 Intake Total 500 Output Total 1949 2699 1114 Balance -1949 Weight 87.4 kg 87.4 kg Intake: Oral 500 Output: Urine 1949 2699 1114 Other: Voiding Method External Catheter Indwelling Catheter Indwelling Catheter - Exam GENERAL EXAM: Alert, 74-year-old female, resting in bed, on Airvo high flow oxygen at 50 L and 50% FiO2, in no acute distress. Insulin pump noted. HEAD: Normocephalic and atraumatic EYES: Normal reaction of pupils, equal size. NOSE: Clear with pink turbinates. THROAT: No erythema or exudates. NECK: No masses, no JVD. CHEST: No chest wall deformity. Left chest implanted device. LUNGS: Equal air entry crackles in the posterior bases right greater than left. CVS: S1 and S2 normal with no audible murmur, regular rhythm. No extra heart sounds ABDOMEN: No hepatosplenomegaly, active bowel sounds, no guarding or rigidity. SPINE: No scoliosis or deformity SKIN: No rashes CENTRAL NERVOUS SYSTEM: No focal deficits, tone is normal in all 4 extremities. EXTREMITIES: Right anterior hip incision is approximated, pink, without dehiscence or drainage. Full range of motion. Right lower extremity pitting ed shan. Peripheral pulses are intact. - Labs CBC & Chem 7: 12/25/24 05:26 12/25/24 05:26 Labs: Abnormal Lab Results - Last 24 Hours (Table) 12/24/24 12/24/24 12/24/24 Range/Units 16:29 20:29 20:39 WBC (4.50-10.00) 10*3/uL RBC (4.10-5.20) 10*6/uL Hgb (12.0-15.0) g/dL Hct (37.2-46.3) % Immature Gran # (0.00-0.04) 10*3/uL Neutrophils # (1.80-7.70) 10*3/uL Lymphocytes # (0.90-5.00) 10*3/uL Eosinophils # (0.04-0.35) 10*3/uL ABG pH 7.46 H (7.35-7.45) ABG pO2 66 L (83-108) mmHg ABG HCO3 31 H (21-25) mmol/L ABG Total CO2 32 H (19-24) mmol/L ABG O2 Saturation 93.7 L (94-97) % Hemoglobin 10.0 L (11.4-16.0) gm/dL Carbon Dioxide (22-30) mmol/L BUN (7-17) mg/dL Creatinine (0.52-1.04) mg/dL Glucose (74-99) mg/dL POC Glucose (mg/dL) 230 H 355 H (70-110) mg/dL 12/24/24 12/25/24 12/25/24 Range/Units 20:51 02:00 05:26 WBC 17.91 H (4.50-10.00) 10*3/uL RBC 3.28 L (4.10-5.20) 10*6/uL Hgb 9.7 L (12.0-15.0) g/dL Hct 30.1 L (37.2-46.3) % Immature Gran # 0.46 H (0.00-0.04) 10*3/uL Neutrophils # 16.37 H (1.80-7.70) 10*3/uL Lymphocytes # 0.55 L (0.90-5.00) 10*3/uL Eosinophils # 0.01 L (0.04-0.35) 10*3/uL ABG pH (7.35-7.45) ABG pO2 (83-108) mmHg ABG HCO3 (21-25) mmol/L ABG Total CO2 (19-24) mmol/L ABG O2 Saturation (94-97) % Hemoglobin (11.4-16.0) gm/dL Carbon Dioxide (22-30) mmol/L BUN (7-17) mg/dL Creatinine (0.52-1.04) mg/dL Glucose (74-99) mg/dL POC Glucose (mg/dL) 361 H 214 H (70-110) mg/dL 12/25/24 12/25/24 12/25/24 Range/Units 05:26 06:10 11:32 WBC (4.50-10.00) 10*3/uL RBC (4.10-5.20) 10*6/uL Hgb (12.0-15.0) g/dL Hct (37.2-46.3) % Immature Gran # (0.00-0.04) 10*3/uL Neutrophils # (1.80-7.70) 10*3/uL Lymphocytes # (0.90-5.00) 10*3/uL Eosinophils # (0.04-0.35) 10*3/uL ABG pH (7.35-7.45) ABG pO2 (83-108) mmHg ABG HCO3 (21-25) mmol/L ABG Total CO2 (19-24) mmol/L ABG O2 Saturation (94-97) % Hemoglobin (11.4-16.0) gm/dL Carbon Dioxide 31 H (22-30) mmol/L BUN 49 H (7-17) mg/dL Creatinine 1.16 H (0.52-1.04) mg/dL Glucose 224 H (74-99) mg/dL POC Glucose (mg/dL) 288 H 424 H (70-110) mg/dL Microbiology - Last 24 Hours (Table) 12/22/24 02:29 Blood Culture - Preliminary Blood Assessment and Plan Assessment: Healthcare associated pneumonia, bilateral. CT scan of the chest reveals marked diffuse scattered groundglass opacities consistent with pulmonary edema, ARDS or pneumonia. Moderate cardiomegaly. Procalcitonin negative Acute asthma exacerbation Acute hypoxemic respiratory failure, currently on Airvo high flow oxygen at 50 L and 50% FiO2, secondary to above. Chest x-ray remarkable for cardiomegaly, poss ible pulmonary vascular congestion, patchy bilateral lower lung infiltrates. Prior sternotomy wires. AICD generator and leads. Concerning for atypical pneumonia or congestive heart failure Acute febrile illness, recovered Acute leukocytosis, improving History of right direct anterior total hip arthroplasty on November 24 Acute blood loss anemia, expected outcome of surgery Hypertension History of hyperlipidemia Insulin-dependent diabetes mellitus Obesity with a BMI of 35.4 kg/m Coronary artery disease, with history of CABG and cardiac stents History of ischemic cardiomyopathy with an ejection fraction improved to 40 to 45% Implanted AICD/pacemaker Hypothyroidism Anxiety/depression Plan: The patient was seen and evaluated Chest x-ray, labs and medications reviewed Currently on Airvo high flow oxygen at 50 L and 50% FiO2 Change prednisone to IV Solu-Medrol 60 mg every 6 hours Continue Lasix at 40 mg IV every 12 hours Check a proBNP level Check a procalcitonin level Titrate down the FiO2 as tolerated Continue DuoNeb inhalations Continue Symbicort Heparin for DVT prophylaxis We will continue to follow I have personally seen and examined the patient, performed the documentation and the assessment and plan as written. Number of minutes spent on the visit: 10 Dictation was produced using [employer] dictation software. Please excuse any grammatical, word or spelling errors.
--- NOTE | 2024-12-25 15:04 | P.PN ---
Subjective Progress Note Date: 12/25/24 Patient is a 74-year-old female with hypertension, hyperlipidemia, DM (insulin- dependent), obesity, CAD status post CABG, ischemic cardiomyopathy (EF 25 to 30% with AICD), asthma, and osteoarthritis here for evaluation of a fall with generalized weakness. Patient reported that she developed shortness of breath, dry cough, chills, bilateral extremity swelling and generalized weakness when she was discharged from rehab on 12/09 from [facility]. She recently had a right direct anterior total hip arthroplasty on 11/24/2024. Since then she has fallen twice at home due to missed steps. She reported that her swelling has improved gradually over the past 2 weeks. On arrival to the ED, she also reported to have altered mental status. She denied chest pain, palpitations, nausea, vomiting, abdominal pain, extremity swelling, focal weakness, recent prolonged travel. On admission: Vitals: Temp 99 Fahrenheit, IN 99, RR 16, BP 114/60, O2 saturation 89% on room air Labs: WBC 17.4, hemoglobin 9.5, sodium 132, potassium 4.4, bicarb 23, BUN 16, creatinine 0.9, glucose 124, lactic acid 1.8, calcium 8.8, phosphorus 2.4, magnesium 1.7, TSH 6.7. Liver enzymes within normal ranges. Troponin negative. proBNP 3700. Urinalysis unremarkable. Cepheid 4 Plex negative. Urine Legionella antigen negative. Imaging: Chest x-ray showed cardiomegaly with prominent pulmonary vasculature and patchy bilateral lung infiltrates. Hip pelvis x-ray showed no acute osseous abnormalities. EKG showed V paced at a rate of 87, no ST-T changes, QTc 446 MS. 12/20/2024 patient seen and examined at bedside. No acute events overnight. Still requiring oxygen support with 2 to 3 L of nasal cannula. Patient has no symptoms or complaints. Labs: WBC 15.9, hemoglobin 9.3, MCV 93.6, platelet count 371,000, sodium 139, potassium 4.2, bicarb 27, BUN 16, creatinine 1.01, glucose 133, calcium 9.1, Pro-Fortino 0.22. Blood cultures positive for staph mecA/C positive. Imaging; chest x-ray independently interpreted showing improving pulmonary infiltrates 12/21/2024 patient seen and examined at bedside. No acute events overnight. Patient still requiring 2-3L oxygen. Labs: WBC 21.16, hemoglobin 9, MCV 92.9, platelet count 408,000, sodium 137, potassium 4.5, bicarb 30, BUN 29, creatinine 1.28, glucose 172, calcium 9.3, BNP 2180. Blood cultures positive for Staphylococcus epidermidis MEC A positive. Repeat CXR shows minimal improvement 12/22/2024 patient seen and examined at bedside. No acute events overnight. Patient still requiring 3 to 4 L oxygen via nasal cannula Labs: WBC 7.29, hemoglobin 9.4, platelet count 386,000, sodium 136, potassium 4.7, bicarb 28, BUN 37, creatinine 1.06, glucose 176, calcium 8.8 Imaging; echocardiogram showed LVEF 40 to 45% with moderate global hypokinesis, mild mitral and tricuspid regurgitation 12/23/2024 patient seen and examined at bedside. No acute events overnight. Patient oxygen requirements are increasing from 5 to 6 L high flow nasal cannula. Still having dry cough. Labs: WBC 7 point 0.6, hemoglobin 9.2, MCV 93, platelet count 381,000, sodium 130, potassium 4.4, chloride 102, bicarb 28, BUN 45, creatinine 1.11, glucose 96, calcium 9.1. ABG showed PO2 50 pH 7.42 and pCO2 45 Imaging; chest CT shows marked diffuse scattered groundglass opacities consisten t with pulmonary edema, ARDS or pneumonia, moderate cardiomegaly, 3.4 cm dilation of the main pulmonary artery 12/24/2024 Patient evaluated in follow-up on the medical floor. Patient remains on oxygen support increased up to 10 L high flow cannula with saturations of 90%. patient is currently on a course of IV Solu-Medrol as well as IV Lasix twice daily. She has completed a course of antibiotics. She is also maintained on a fluid restriction. ID and pulmonology are following this patient closely. Blood culture finalized revealing Staphylococcus epidermidis which is felt to be contaminant species 12/25/2024 patient seen and examined at bedside. Patient in the ICU. Requiring high flow nasal cannula rate of 50 FiO2 55% Labs: WBC 17.9, hemoglobin 9.7, MCV 90.8, platelet count 250,000 sodium 137, potassium 4.8, bicarb 31, creatinine, BUN 49, creatinine 1.16, glucose 224, mag 2.2, calcium 9.1. ABG pH 7.46, pCO2 43, bicarb 66 Imaging; chest x-ray showed so far persistent diffuse increased lung markings present Review of systems: Pertinent positives and negatives as discussed in HPI, a complete review of systems was performed and all other systems are negative. Physical examination: Vital signs reviewed General: non toxic, no distress, appears at stated age, on Airvo Derm: no unusual rashes/lesions, warm Head: atraumatic, normocephalic, symmetric Eyes: EOMI, anicteric sclera, pupils equal round reactive to light ENT: Nose and ears atraumatic Neck: No cervical lymphadenopathy, trachea midline, supple Mouth: no lip lesion, mucus membranes moist Cardiovascular: S1S2 reg, no murmur Lungs: Babasilar rhonchi, no rales, no accessory muscle use Abdominal: soft, nondistended, nontender to palpation, no guarding Ext: muscle strength 5 out of 5 in all 4 extremities grossly, no gross muscle atrophy, no contractures, positive dorsalis pedis pulse bilateral, no edema Neuro: CN II-XI grossly intact, no gross focal neuro deficits Psych: Alert and oriented x 3, appropriate affect and mood Assessment/Plan: The patient is admitted with an anticipated greater than 2 midnight stay for evaluation of acute respiratory failure due to HFrEF exacerbation with concern for ARDS Active: #. Acute hypoxic respiratory failure, HFrEF exacerbation with possible CAP vs ARDS #. Asthma exacerbation #. Ischemic cardiomyopathy (EF 40-45% with AICD) #. Leukocytosis, likley steroid induced -No episodes of fevers overnight. WBC elevated but not significantly to warrant infectious process -Supportive oxygen as needed. Patient still requiring increased oxygenation despite diuresis and antibiotics -Chest CT showed diffuse scattered groundglass opacities concerning for pneumonia or ARDS - Completed course of Abx Zithromax p.o and Rocephin IVPB on 12/22 -Continue Solu-Medrol 40 mg IV daily -Lasix 40mg IV every 12 hours per pulmonology -Daily weights, Strict InOs, Fluid restriction 1800 -ABG pH 7.46 pO2 66 and pCO2 66 -Echocardiogram showed LVEF 40 to 45% with moderate global hypokinesis, mild mitral and tricuspid regurgitation -Blood cultures positive for staph mecA/C positive. Likely contaminant. Due to patient's elevated WBC and CXR findings, ID is consulted -Monitor CBC and renal fuction -Pulmonology consulted by ED #. Acute Kidney Injury, prerenal, improved - Cr 1.16 today -Monitor UO -Avoid nephrotoxic agents -No IV fluids for now due to CHF exacerbation #. Mechanical Fall secondary to above #. Recent Right anterior total hip arthroplasty Hip pelvis x-ray showed no acute osseous abnormalities. Ortho consulted by ED. No intervention recommended at this time D/c Ketorolac IV due to BEV. Continue with PO norco prn #. Normocytic anemia at baseline Hemoglobin 9.5 Monitor CBC Chronic Conditions: #. Diabetes mellitus, on insulin pump -Hemoglobin A1c 7.3 in November 2024 -Continue home insulin pump -Glucose Accu-Cheks ACHS -Initiate Insulin basal rates every 6 hours as needed -Monitor for hypoglycemia #. Hypertension #. Hyperlipidemia #. Obesity #. CAD status post CABG #. Osteoarthritis Resume home aspirin, bupropion 150, buspirone 10 mg, carvedilol 12.5 mg, clopidogrel 75 mg, dapagliflozin 10 mg, ezetimibe 10 mg, fluvoxamine 100 mg, furosemide 20 mg gabapentin 300 mg, Synthroid 125 mcg, rosuvastatin 40 mg, Entresto, trazodone 50 mg DVT ppx: Lovenox 40 mg subcu daily GI prophylaxis: Pantoprazole 40 mg IVP twice daily CODE STATUS: Full Discussed with: Patient Anticipated discharge place: Home Attestation: I have seen and examined this patient with my resident, assessment and plan discussed with the resident, agree with assessment and plan as written above. Dr. Godfrey Objective - Vital Signs Vital signs: Vital Signs Temp 98.6 F 12/25/24 04:00 Pulse 70 12/25/24 07:00 Resp 24 12/25/24 07:00 BP 150/64 12/25/24 07:00 Pulse Ox 91 L 12/25/24 07:00 FiO2 60 12/25/24 07:00 Intake & Output 12/24/24 12/25/24 12/25/24 18:59 06:59 18:59 Intake Total 500 Output Total 1950 2700 100 Balance -1949 -100 Weight 87.4 kg Intake: Oral 500 Output: Urine 1949 2700 100 Other: Voiding Method External Catheter Indwelling Catheter - Labs CBC & Chem 7: 12/25/24 05:26 12/25/24 05:26 Labs: Abnormal Lab Results - Last 24 Hours (Table) 12/24/24 12/24/24 12/24/24 Range/Units 12:01 16:29 20:29 WBC (4.50-10.00) 10*3/uL RBC (4.10-5.20) 10*6/uL Hgb (12.0-15.0) g/dL Hct (37.2-46.3) % Immature Gran # (0.00-0.04) 10*3/uL Neutrophils # (1.80-7.70) 10*3/uL Lymphocytes # (0.90-5.00) 10*3/uL Eosinophils # (0.04-0.35) 10*3/uL ABG pH (7.35-7.45) ABG pO2 (83-108) mmHg ABG HCO3 (21-25) mmol/L ABG Total CO2 (19-24) mmol/L ABG O2 Saturation (94-97) % Hemoglobin (11.4-16.0) gm/dL Carbon Dioxide (22-30) mmol/L BUN (7-17) mg/dL Creatinine (0.52-1.04) mg/dL Glucose (74-99) mg/dL POC Glucose (mg/dL) 287 H 230 H 355 H (70-110) mg/dL 12/24/24 12/24/24 12/25/24 Range/Units 20:39 20:51 02:00 WBC (4.50-10.00) 10*3/uL RBC (4.10-5.20) 10*6/uL Hgb (12.0-15.0) g/dL Hct (37.2-46.3) % Immature Gran # (0.00-0.04) 10*3/uL Neutrophils # (1.80-7.70) 10*3/uL Lymphocytes # (0.90-5.00) 10*3/uL Eosinophils # (0.04-0.35) 10*3/uL ABG pH 7.46 H (7.35-7.45) ABG pO2 66 L (83-108) mmHg ABG HCO3 31 H (21-25) mmol/L ABG Total CO2 32 H (19-24) mmol/L ABG O2 Saturation 93.7 L (94-97) % Hemoglobin 10.0 L (11.4-16.0) gm/dL Carbon Dioxide (22-30) mmol/L BUN (7-17) mg/dL Creatinine (0.52-1.04) mg/dL Glucose (74-99) mg/dL POC Glucose (mg/dL) 361 H 214 H (70-110) mg/dL 12/25/24 12/25/24 12/25/24 Range/Units 05:26 05:26 06:10 WBC 17.91 H (4.50-10.00) 10*3/uL RBC 3.28 L (4.10-5.20) 10*6/uL Hgb 9.7 L (12.0-15.0) g/dL Hct 30.1 L (37.2-46.3) % Immature Gran # 0.46 H (0.00-0.04) 10*3/uL Neutrophils # 16.37 H (1.80-7.70) 10*3/uL Lymphocytes # 0.55 L (0.90-5.00) 10*3/uL Eosinophils # 0.01 L (0.04-0.35) 10*3/uL ABG pH (7.35-7.45) ABG pO2 (83-108) mmHg ABG HCO3 (21-25) mmol/L ABG Total CO2 (19-24) mmol/L ABG O2 Saturation (94-97) % Hemoglobin (11.4-16.0) gm/dL Carbon Dioxide 31 H (22-30) mmol/L BUN 49 H (7-17) mg/dL Creatinine 1.16 H (0.52-1.04) mg/dL Glucose 224 H (74-99) mg/dL POC Glucose (mg/dL) 288 H (70-110) mg/dL Microbiology - Last 24 Hours (Table) 12/22/24 02:29 Blood Culture - Preliminary Blood
[2024-12-25 16:04] LABS: Glucose,Whole Blood 372 mg/dL (70-110)
[2024-12-25 19:56] LABS: Glucose,Whole Blood 477 mg/dL (70-110)
[2024-12-25] MEDS: FUROSEMIDE 10 MG/ML 4 ML VIAL IV SCH (21:08)
[2024-12-25] MEDS: INSULIN LISPRO (HumaLOG) 100 UNIT/ML 10 mL VL SQ ONE (21:09)
[2024-12-25] MEDS: INSULIN GLARGINE (LANTUS) 100 UNIT/ML SYR SQ SCH (21:10)
[2024-12-26 02:36] LABS: Glucose,Whole Blood 308 mg/dL (70-110)
[2024-12-26 05:59] LABS: Basophils # (A) 0.03 10*3/uL (0.00-0.10); Basophils % (A) 0.2 %; Eosinophils # (A) 0.00 10*3/uL (0.04-0.35); Eosinophils % (A) 0.0 %; HCT 31.0 % (37.2-46.3); HGB 10.0 g/dL (12.0-15.0); Lymphocytes # (A) 0.60 10*3/uL (0.90-5.00); Lymphocytes % (A) 3.1 %; MCH 29.2 pg (27.0-32.0); MCHC 32.3 g/dL (32.0-37.0); MCV 90.6 fL (80.0-97.0); Monocytes # (A) 0.39 10*3/uL (0.20-1.00); Monocytes % (A) 2.0 %; Neutrophils # (A) 17.81 10*3/uL (1.80-7.70); Neutrophils % (A) 91.2 %; Platelet Count 359 10*3/uL (140-440); RBC 3.42 10*6/uL (4.10-5.20); RDW 13.6 % (11.5-14.5); WBC 19.52 10*3/uL (4.50-10.00)
[2024-12-26 06:03] LABS: Glucose,Whole Blood 243 mg/dL (70-110)
[2024-12-26 06:28] LABS: African American GFR (CKD) 60 (>60 ml/min/1.73 sqM); Anion Gap 7 mmol/L; Blood Urea Nitrogen 54 mg/dL (7-17); Calcium 9.3 mg/dL (8.4-10.2); Carbon Dioxide 33 mmol/L (22-30); Chloride 97 mmol/L (98-107); Glucose 280 mg/dL (74-99); Non-African American GFR(CKD) 52 (>60 ml/min/1.73 sqM); Potassium 4.2 mmol/L (3.5-5.1); Sodium 137 mmol/L (137-145)
[2024-12-26] MEDS: INSULIN GLARGINE (LANTUS) 100 UNIT/ML SYR SQ SCH ×2 (06:31→21:08)
[2024-12-26] MEDS ORDERED: INSULIN GLARGINE (LANTUS) 100 UNIT/ML SYR SQ SCH (07:00)
[2024-12-26] MEDS ORDERED: FUROSEMIDE 20 MG TAB PO SCH (09:00)
--- NOTE | 2024-12-26 10:02 | XR ---
EXAMINATION TYPE: XR chest 1V portable DATE OF EXAM: 12/26/2024 6:05 AM COMPARISON: 12/25/2024 CLINICAL INDICATION: Female, 74 years old with history of follow up multi focal airspace opacities, TECHNIQUE: XR chest 1V portable view(s) obtained. FINDINGS: The heart size is enlarged. The pulmonary vasculature is prominent. Bilateral lung infiltrates are present greater the right base. IMPRESSION: 1. Diffuse infiltrates greater at the right lung base. Correlate for congestive heart failure or pneu monia. Continued follow-up is recommended [facility] Chikis Tabor, , 12/26/2024 10:00 AM
[2024-12-26 11:05] LABS: Glucose,Whole Blood 333 mg/dL (70-110)
--- NOTE | 2024-12-26 11:27 | P.PN ---
Subjective Progress Note Date: 12/26/24 Patient is a 75-year-old female with past medical history significant for hypertension, hyperlipidemia, insulin-dependent diabetes mellitus, obesity, coronary artery disease with previous CABG, ischemic cardiomyopathy with an ejection fraction of 25 to 30% with AICD, asthma, and osteoarthritis. Of note, patient recently underwent right direct anterior total hip arthroplasty on 11/24/2024. She was discharged from the hospital to [facility] for rehabilitation. While at the outside facility, developed shortness of breath, coughing, and generalized weakness. States she was released from [facility] to home last Wednesday on November. Since then, she has fallen twice while at home. Brought in by EMS yesterday evening hypoxic and confused. She was placed on supplemental oxygen. Workup in the emergency department including a chest x-ray showing patchy bilateral lung infiltrates concerning for congestive heart failure or atypical pneumonias. CBC: WBC count 14.7, hemoglobin 9.5 g/dL, platelets 374. BMP: Sodium 132, potassium 4.4, chloride 100, serum bicarb 23, BUN 16, creatinine 0.92, glucose 124. Lactic 1.8. LFTs unremarkable. Troponin less than 0.012. NT proBNP 6.74. Viral 4 Plex negative for influenza A/B, RSV, COVID. Urinalysis unremarkable for UTI. Patient currently being evaluated on the general medical floor. She is alert and oriented x 3. Endorses above menti oned complaints. Does report history of asthma. Has had increased work of breathing over the last couple weeks. Suffering from persistent nonproductive cough over the same timeframe. States her symptoms actually started at [facility]. She has had a poor appetite with occasional nausea and vomiting. She has been able to take some of her home medications. Has had intermittent fevers with a Tmax of 100.8 F. Was started on empiric antibiotics in the ED, in the form azithromycin and Rocephin. Normal saline infusing at 50 mL/h. Denies any chest pain. Does endorse unilateral right lower lower extremity edema. No heart palpitations, syncopal events, hemoptysis. Current vital signs: Temperature 100.8 F, heart rate 95 bpm, blood pressure 124/54 mmHg, nontachypneic, SpO2 recorded at 96% on 3 L/min nasal cannula. The patient is seen today December 20, 2024 and follow-up on the regular medical floor. She is currently sitting up in bed. Awake and alert in no acute distress. Feeling a bit better today compared to yesterday. Maintaining O2 saturations in the 90s on 3 L/min per nasal cannula. Chest x-ray shows continued infiltrate of the right lung with improvement in the left lung. Blood culture is coming back positive. ID pending. White count 15.9. Hemoglobin 9.3. Platelets 371. Sodium 139. Potassium 4.2. Bicarb 27. BUN 16. Creatinine 1.01. Glucose 133. She remains on DuoNeb inhalations, IV Solu- Medrol, IV diuretics. Lovenox for DVT prophylaxis. Antibiotics in the form of ceftriaxone. The patient is seen today December 21, 2024 in follow-up on the regular medical floor. She is currently sitting up in a chair. Awake and alert in no acute distress. Maintaining O2 saturations in the 90s on 3 L/min per nasal cannula. She has been afebrile. Hemodynamically stable. Blood cultures showing staph epidermidis, most likely contaminant. White count 21.1. Hemoglobin 9.0. Platelets 409. Sodium 137. Potassium 4.5. Bicarb 30. BUN 29. Creatinine 1. 28. Glucose 172. proBNP 2180. She remains on DuoNeb inhalations, Solu-Medrol. Antibiotics in the form of ceftriaxone. Lovenox for DVT prophylaxis. Remains on IV diuretics. No accurate intake and output recorded. Chest x-ray showing similar findings with basilar infiltrates right greater than left. The patient is seen today December 22, 2024 in follow-up on the regular medical floor. She is sitting up at the bedside. Awake and alert in no acute distress. She has been slow to progress. She is still dyspneic with minimal exertion. Dyspneic with conversation. She is maintaining O2 saturations in the 90s on 7 L high flow nasal cannula. Echocardiogram reveals impaired left ventricular systolic function with an ejection fraction [address] scan of the chest revealed marked diffuse scattered groundglass opacities consistent with pulmonary edema, ARDS or pneumonia. AICD in place. Blood culture positive for Staphylococcus epidermidis. White count 17.9. Hemoglobin 9.4. Platelets 386. Sodium 136. Potassium 4.7. Bicarb 28. BUN 37. Creatinine 1.06. Glucose 176. She remains on DuoNeb inhalations, Solu-Medrol. Remains on oral diuretics. Antibiotics in the form of ceftriaxone. Heparin for DVT prophylaxis. The patient is seen today December 23, 2024 in follow-up on the regular medical floor. She is currently resting in bed. Awake and alert in no acute distress. Feeling a bit better today compared to yesterday. She is maintaining O2 saturations in the 90s on 6 L high flow nasal cannula. She remains afebrile. Hemodynamically stable. Initial blood cultures showing staph epidermidis. Follow-up blood culture reveals no growth. White count 17.6. Hemoglobin 9.2. Platelets 381. Sodium 138. Potassium 4.4. Bicarb 28. BUN 45. Creatinine 1.11. Glucose 115. Arterial blood gases on 44% FiO2 revealed a PO2 of 50, [id number] and a pH of 7.42. She remains on DuoNeb inhalations, Solu-Medrol and Robitussin as needed. Heparin for DVT prophylaxis. She remains on Lasix 40 mg every 12 hours. No accurate intake and output recorded. The patient is seen today December 24, 2024 in follow-up on the regular medical floor. She is awake and alert in no acute distress. Resting in bed. No worsening shortness of breath, cough or congestion. She is still requiring 10 L high flow nasal cannula to maintain O2 saturations in the 90s. Lung sounds improved. Blood cultures were positive for Staphylococcus epidermidis. Most likely a contaminant. Follow-up blood culture revealed no growth. Glucose 233. She remains on DuoNeb inhalations, Symbicort, Solu-Medrol. She remains on IV Lasix. Heparin for DVT prophylaxis. Currently in a -1.9 L balance. The patient is seen today December 25, 2024 in follow-up in the intensive care unit. She was transferred down here last evening after having issues with worsening hypoxemia. She is currently on Airvo high flow oxygen at 50 L and 50% FiO2. She is afebrile. Hemodynamically stable. Chest x-ray continues to show cardiomegaly with pulmonary vascular congestion and bilateral pleural effusions. Follow-up blood culture revealed no growth. White count 17.9. Hemoglobin 9.7. Platelets 350. Sodium 137. Potassium 4.8. Bicarb 31. BUN 49. Creatinine 1.16. Glucose 224. She remains on DuoNeb inhalations, Symbicort, Solu-Medrol. Heparin for DVT prophylaxis. She remains on Lasix 40 mg IV every 12 hours. C urrently in a -4 L balance. The patient is seen today December 26, 2024 in follow-up in the intensive care unit. She is currently sitting up in bed. Awake and alert in no acute distress. Feeling a bit better today compared to yesterday. She is still high flow oxygen at 50 L and 60% FiO2. No IV fluids. She has been afebrile. Hemodynamically stable. Chest x-ray continues to show diffuse infiltrates bilaterally right greater than left. Follow-up blood culture reveals no growth. White count 1 9.5. Hemoglobin 10.0. Platelets 359. Sodium 137. Potassium 4.2. Bicarb 33. BUN 54. Creatinine 1.07. Glucose 280. Continued on Lasix 40 mg IV every 12 hours. Currently net -3.3 L balance. She remains on DuoNeb and elations, Symbicort, Solu-Medrol. Robitussin for her cough. Objective - Vital Signs Vital signs: Vital Signs Temp 98.3 F 12/26/24 08:00 Pulse 61 12/26/24 10:00 Resp 28 H 12/26/24 10:00 BP 130/65 12/26/24 10:00 Pulse Ox 95 12/26/24 10:00 FiO2 60 12/26/24 09:00 Intake & Output 12/25/24 12/26/24 12/26/24 18:59 06:59 18:59 Intake Total 200 400 100 Output Total 1640 2260 540 Balance -1440 -1860 -440 Weight 87.4 kg 87.7 kg Intake: Oral 200 400 100 Output: Urine 1640 2260 540 Other: Voiding Method Indwelling Catheter Indwelling Catheter Indwelling Catheter - Exam GENERAL EXAM: Alert, pleasant 74-year-old female, sitting up in bed, on Airvo high flow oxygen at 50 L and 60% FiO2, in no acute distress. HEAD: Normocephalic and atraumatic EYES: Normal reaction of pupils, equal size. NOSE: Clear with pink turbinates. THROAT: No erythema or exudates. NECK: No masses, no JVD. CHEST: No chest wall deformity. Left chest implanted device. LUNGS: Equal air entry crackles in the posterior bases right greater than left. CVS: S1 and S2 normal with no audible murmur, regular rhythm. No extra heart sounds ABDOMEN: No hepatosplenomegaly, active bowel sounds, no guarding or rigidity. SPINE: No scoliosis or deformity SKIN: No rashes CENTRAL NERVOUS SYSTEM: No focal deficits, tone is normal in all 4 extremities. EXTREMITIES: Right anterior hip incision is approximated, pink, without dehiscence or drainage. Full range of motion. Right lower extremity pitting edema. Peripheral pulses are intact. - Labs CBC & Chem 7: 12/26/24 05:31 12/26/24 05:31 Labs: Abnormal Lab Results - Last 24 Hours (Table) 12/25/24 12/25/24 12/25/24 Range/Units 11:32 16:02 19:54 WBC (4.50-10.00) 10*3/uL RBC (4.10-5.20) 10*6/uL Hgb (12.0-15.0) g/dL Hct (37.2-46.3) % Immature Gran # (0.00-0.04) 10*3/uL Neutrophils # (1.80-7.70) 10*3/uL Lymphocytes # (0.90-5.00) 10*3/uL Eosinophils # (0.04-0.35) 10*3/uL Chloride (98-107) mmol/L Carbon Dioxide (22-30) mmol/L BUN (7-17) mg/dL Creatinine (0.52-1.04) mg/dL Glucose (74-99) mg/dL POC Glucose (mg/dL) 424 H 372 H 477 H (70-110) mg/dL 12/26/24 12/26/24 12/26/24 Range/Units 02:35 05:31 05:31 WBC 19.52 H (4.50-10.00) 10*3/uL RBC 3.42 L (4.10-5.20) 10*6/uL Hgb 10.0 L (12.0-15.0) g/dL Hct 31.0 L (37.2-46.3) % Immature Gran # 0.69 H (0.00-0.04) 10*3/uL Neutrophils # 17.81 H (1.80-7.70) 10*3/uL Lymphocytes # 0.60 L (0.90-5.00) 10*3/uL Eosinophils # 0.00 L (0.04-0.35) 10*3/uL Chloride 97 L (98-107) mmol/L Carbon Dioxide 33 H (22-30) mmol/L BUN 54 H (7-17) mg/dL Creatinine 1.07 H (0.52-1.04) mg/dL Glucose 280 H (74-99) mg/dL POC Glucose (mg/dL) 308 H (70-110) mg/dL 12/26/24 12/26/24 Range/Units 06:02 11:03 WBC (4.50-10.00) 10*3/uL RBC (4.10-5.20) 10*6/uL Hgb (12.0-15.0) g/dL Hct (37.2-46.3) % Immature Gran # (0.00-0.04) 10*3/uL Neutrophils # (1.80-7.70) 10*3/uL Lymphocytes # (0.90-5.00) 10*3/uL Eosinophils # (0.04-0.35) 10*3/uL Chloride (98-107) mmol/L Carbon Dioxide (22-30) mmol/L BUN (7-17) mg/dL Creatinine (0.52-1.04) mg/dL Glucose (74-99) mg/dL POC Glucose (mg/dL) 243 H 333 H (70-110) mg/dL Microbiology - Last 24 Hours (Table) 12/22/24 02:29 Blood Culture - Preliminary Blood Assessment and Plan Assessment: Healthcare associated pneumonia, bilateral. CT scan of the chest reveals marked diffuse scattered groundglass opacities consistent with pulmonary edema, ARDS or pneumonia. Moderate cardiomegaly. Procalcitonin negative x 2 Acute asthma exacerbation Acute hypoxemic respiratory failure, currently on Airvo high flow oxygen at 50 L and 50% FiO2, secondary to above. Chest x-ray remarkable for cardiomegaly, possible pulmonary vascular congestion, patchy bilateral lower lung infiltrates. Prior sternotomy wires. AICD generator and leads. Concerning for atypical pneumonia or congestive heart failure. BNP 1950 Acute febrile illness, recovered Acute leukocytosis, improving History of right direct anterior total hip arthroplasty on November 24 Acute blood loss anemia, expected outcome of surgery Hypertension History of hyperlipidemia Insulin-dependent diabetes mellitus Obesity with a BMI of 35.4 kg/m Coronary artery disease, with history of CABG and cardiac stents History of ischemic cardiomyopathy with an ejection fraction improved to 40 to 45% Implanted AICD/pacemaker Hypothyroidism Anxiety/depression Plan: The patient was seen and evaluated Chest x-ray, labs and medications reviewed Currently on Airvo high flow oxygen at 50 L and 60% FiO2 Continue Solu-Medrol 60 mg every 6 hours Continue Lasix at 40 mg IV every 12 hours proBNP level 1950 Procalcitonin negative Continue DuoNeb inhalations Continue Symbicort Continue Robitussin Heparin for DVT prophylaxis Titrate down the FiO2 as tolerated Increase her activity as tolerated We will continue to follow I have personally seen and examined the patient, performed the documentation and the assessment and plan as written. Number of minutes spent on the visit: 10 Dictation was produced using [employer] dictation software. Please excuse any grammatical, word or spelling errors.
--- NOTE | 2024-12-26 15:48 | P.PN ---
Subjective Progress Note Date: 12/26/24 Patient is a 74-year-old female with hypertension, hyperlipidemia, DM (insulin- dependent), obesity, CAD status post CABG, ischemic cardiomyopathy (EF 25 to 30% with AICD), asthma, and osteoarthritis here for evaluation of a fall with generalized weakness. Patient reported that she developed shortness of breath, dry cough, chills, bilateral extremity swelling and generalized weakness when she was discharged from rehab on 12/09 from [facility]. She recently had a right direct anterior total hip arthroplasty on 11/24/2024. Since then she has fallen twice at home due to missed steps. She reported that her swelling has improved gradually over the past 2 weeks. On arrival to the ED, she also reported to have altered mental status. She denied chest pain, palpitations, nausea, vomiting, abdominal pain, extremity swelling, focal weakness, recent prolonged travel. On admission: Vitals: Temp 99 Fahrenheit, WA 99, RR 16, BP 114/60, O2 saturation 89% on room air Labs: WBC 17.4, hemoglobin 9.5, sodium 132, potassium 4.4, bicarb 23, BUN 16, creatinine 0.9, glucose 124, lactic acid 1.8, calcium 8.8, phosphorus 2.4, magnesium 1.7, TSH 6.7. Liver enzymes within normal ranges. Troponin negative. proBNP 3700. Urinalysis unremarkable. Cepheid 4 Plex negative. Urine Legionella antigen negative. Imaging: Chest x-ray showed cardiomegaly with prominent pulmonary vasculature and patchy bilateral lung infiltrates. Hip pelvis x-ray showed no acute osseous abnormalities. EKG showed V paced at a rate of 87, no ST-T changes, QTc 446 MS. 12/20/2024 patient seen and examined at bedside. No acute events overnight. Still requiring oxygen support with 2 to 3 L of nasal cannula. Patient has no symptoms or complaints. Labs: WBC 15.9, hemoglobin 9.3, MCV 93.6, platelet count 371,000, sodium 139, potassium 4.2, bicarb 27, BUN 16, creatinine 1.01, glucose 133, calcium 9.1, Pro-Fortino 0.22. Blood cultures positive for staph mecA/C positive. Imaging; chest x-ray independently interpreted showing improving pulmonary infiltrates 12/21/2024 patient seen and examined at bedside. No acute events overnight. Patient still requiring 2-3L oxygen. Labs: WBC 21.16, hemoglobin 9, MCV 92.9, platelet count 408,000, sodium 137, potassium 4.5, bicarb 30, BUN 29, creatinine 1.28, glucose 172, calcium 9.3, BNP 2180. Blood cultures positive for Staphylococcus epidermidis MEC A positive. Repeat CXR shows minimal improvement 12/22/2024 patient seen and examined at bedside. No acute events overnight. Patient still requiring 3 to 4 L oxygen via nasal cannula Labs: WBC 7.29, hemoglobin 9.4, platelet count 386,000, sodium 136, potassium 4.7, bicarb 28, BUN 37, creatinine 1.06, glucose 176, calcium 8.8 Imaging; echocardiogram showed LVEF 40 to 45% with moderate global hypokinesis, mild mitral and tricuspid regurgitation 12/23/2024 patient seen and examined at bedside. No acute events overnight. Patient oxygen requirements are increasing from 5 to 6 L high flow nasal cannula. Still having dry cough. Labs: WBC 7 point 0.6, hemoglobin 9.2, MCV 93, platelet count 381,000, sodium 130, potassium 4.4, chloride 102, bicarb 28, BUN 45, creatinine 1.11, glucose 96, calcium 9.1. ABG showed PO2 50 pH 7.42 and pCO2 45 Imaging; chest CT shows marked diffuse scattered groundglass opacities consisten t with pulmonary edema, ARDS or pneumonia, moderate cardiomegaly, 3.4 cm dilation of the main pulmonary artery 12/24/2024 Patient evaluated in follow-up on the medical floor. Patient remains on oxygen support increased up to 10 L high flow cannula with saturations of 90%. patient is currently on a course of IV Solu-Medrol as well as IV Lasix twice daily. She has completed a course of antibiotics. She is also maintained on a fluid restriction. ID and pulmonology are following this patient closely. Blood culture finalized revealing Staphylococcus epidermidis which is felt to be contaminant species 12/25/2024 patient seen and examined at bedside. Patient in the ICU. Requiring high flow nasal cannula rate of 50 FiO2 55% Labs: WBC 17.9, hemoglobin 9.7, MCV 90.8, platelet count 250,000 sodium 137, potassium 4.8, bicarb 31, creatinine, BUN 49, creatinine 1.16, glucose 224, mag 2.2, calcium 9.1. ABG pH 7.46, pCO2 43, bicarb 66 Imaging; chest x-ray showed so far persistent diffuse increased lung markings present 12/26/2024 patient seen and examined at bedside. Still requiring high flow nasal cannula rate of 50 FiO2 60% Labs: WBC 19.5, hemoglobin 10, chloride 97, bicarb 33, potassium 4.2, sodium 137, creatinine 1.07, BUN 54, glucose 280, calcium 9.3, proBNP 1950, Pro-Fortino less than 0.2 Imaging: Chest x-ray showed stable diffuse interstitial infiltrates Review of systems: Pertinent positives and negatives as discussed in HPI, a complete review of systems was performed and all other systems are negative. Physical examination: Vital signs reviewed General: non toxic, no distress, appears at stated age, on Airvo Derm: no unusual rashes/lesions, warm Head: atraumatic, normocephalic, symmetric Eyes: EOMI, anicteric sclera, pupils equal round reactive to light ENT: Nose and ears atraumatic Neck: No cervical lymphadenopathy, trachea midline, supple Mouth: no lip lesion, mucus membranes moist Cardiovascular: S1S2 reg, no murmur Lungs: Babasilar rhonchi, no rales, no accessory muscle use Abdominal: soft, nondistended, nontender to palpation, no guarding Ext: muscle strength 5 out of 5 in all 4 extremities grossly, no gross muscle atrophy, no contractures, positive dorsalis pedis pulse bilateral, no edema Neuro: CN II-XI grossly intact, no gross focal neuro deficits Psych: Alert and oriented x 3, appropriate affect and mood Assessment/Plan: The patient is admitted with an anticipated greater than 2 midnight stay for evaluation of acute respiratory failure due to HFrEF exacerbation with concern for ARDS Active: #. Acute hypoxic respiratory failure, HFrEF exacerbation with possible CAP vs ARDS #. Asthma exacerbation #. Ischemic cardiomyopathy (EF 40-45% with AICD) #. Leukocytosis, likley steroid induced -No episodes of fevers overnight. WBC elevated but not significantly to warrant infectious process -Supportive oxygen as needed. Patient still requiring increased oxygenation despite diuresis and antibiotics -Chest CT showed diffuse scattered groundglass opacities concerning for pneumonia or ARDS - Completed course of Abx Zithromax p.o and Rocephin IVPB on 12/22 -On Solu-Medrol IV -Lasix 40mg IV every 12 hours per pulmonology -Daily weights, Strict InOs, Fluid restriction 1800 -Echocardiogram showed LVEF 40 to 45% with moderate global hypokinesis, mild mitral and tricuspid regurgitation -Blood cultures positive for staph mecA/C positive. Likely contaminant. Due to patient's elevated WBC and CXR findings, ID is consulted -Repeat blood cultures negative so far -Monitor CBC and renal fuction -Pulmonology consulted by ED #. Acute Kidney Injury, prerenal, improved - Cr 1.16 today -Monitor UO -Avoid nephrotoxic agents -No IV fluids for now due to CHF exacerbation #. Mechanical Fall secondary to above #. Recent Right anterior total hip arthroplasty Hip pelvis x-ray showed no acute osseous abnormalities. Ortho consulted by ED. No intervention recommended at this time D/c Ketorolac IV due to BEV. Continue with PO norco prn #. Normocytic anemia at baseline Hemoglobin 10 Monitor CBC Chronic Conditions: #. Diabetes mellitus, on insulin pump -Hemoglobin A1c 7.3 in November 2024 -Continue home insulin pump -Glucose Accu-Cheks ACHS -Insulin glargine 12 units nightly and 22 units daily -Initiate Insulin basal rates every 6 hours as needed -Monitor for hypoglycemia #. Hypertension #. Hyperlipidemia #. Obesity #. CAD status post CABG #. Osteoarthritis Resume home aspirin, bupropion 150, buspirone 10 mg, carvedilol 12.5 mg, clopidogrel 75 mg, dapagliflozin 10 mg, ezetimibe 10 mg, fluvoxamine 100 mg, furosemide 20 mg gabapentin 300 mg, Synthroid 125 mcg, rosuvastatin 40 mg, Entresto, trazodone 50 mg DVT ppx: Heparin subq GI prophylaxis: Pantoprazole 40 mg IVP twice daily CODE STATUS: Full Discussed with: Patient Anticipated discharge place: Home Attestation: I have seen and examined this patient with my resident, assessment and plan discussed with the resident, agree with assessment and plan as written above. Dr. Godfrey Objective - Vital Signs Vital signs: Vital Signs Temp 98.0 F 12/26/24 04:00 Pulse 64 12/26/24 08:23 Resp 14 12/26/24 07:00 BP 159/69 12/26/24 07:00 Pulse Ox 90 L 12/26/24 07:53 FiO2 60 12/26/24 07:53 Intake & Output 12/25/24 12/26/24 12/26/24 18:59 06:59 18:59 Intake Total 200 400 Output Total 1640 2260 40 Balance -1440 -1860 -40 Weight 87.4 kg 87.7 kg Intake: Oral 200 400 Output: Urine 1640 2260 40 Other: Voiding Method Indwelling Catheter Indwelling Catheter - Labs CBC & Chem 7: 12/26/24 05:31 12/26/24 05:31 Labs: Abnormal Lab Results - Last 24 Hours (Table) 12/25/24 12/25/24 12/25/24 Range/Units 11:32 16:02 19:54 WBC (4.50-10.00) 10*3/uL RBC (4.10-5.20) 10*6/uL Hgb (12.0-15.0) g/dL Hct (37.2-46.3) % Immature Gran # (0.00-0.04) 10*3/uL Neutrophils # (1.80-7.70) 10*3/uL Lymphocytes # (0.90-5.00) 10*3/uL Eosinophils # (0.04-0.35) 10*3/uL Chloride (98-107) mmol/L Carbon Dioxide (22-30) mmol/L BUN (7-17) mg/dL Creatinine (0.52-1.04) mg/dL Glucose (74-99) mg/dL POC Glucose (mg/dL) 424 H 372 H 477 H (70-110) mg/dL 12/26/24 12/26/24 12/26/24 Range/Units 02:35 05:31 05:31 WBC 19.52 H (4.50-10.00) 10*3/uL RBC 3.42 L (4.10-5.20) 10*6/uL Hgb 10.0 L (12.0-15.0) g/dL Hct 31.0 L (37.2-46.3) % Immature Gran # 0.69 H (0.00-0.04) 10*3/uL Neutrophils # 17.81 H (1.80-7.70) 10*3/uL Lymphocytes # 0.60 L (0.90-5.00) 10*3/uL Eosinophils # 0.00 L (0.04-0.35) 10*3/uL Chloride 97 L (98-107) mmol/L Carbon Dioxide 33 H (22-30) mmol/L BUN 54 H (7-17) mg/dL Creatinine 1.07 H (0.52-1.04) mg/dL Glucose 280 H (74-99) mg/dL POC Glucose (mg/dL) 308 H (70-110) mg/dL 12/26/24 Range/Units 06:02 WBC (4.50-10.00) 10*3/uL RBC (4.10-5.20) 10*6/uL Hgb (12.0-15.0) g/dL Hct (37.2-46.3) % Immature Gran # (0.00-0.04) 10*3/uL Neutrophils # (1.80-7.70) 10*3/uL Lymphocytes # (0.90-5.00) 10*3/uL Eosinophils # (0.04-0.35) 10*3/uL Chloride (98-107) mmol/L Carbon Dioxide (22-30) mmol/L BUN (7-17) mg/dL Creatinine (0.52-1.04) mg/dL Glucose (74-99) mg/dL POC Glucose (mg/dL) 243 H (70-110) mg/dL Microbiology - Last 24 Hours (Table) 12/22/24 02:29 Blood Culture - Preliminary Blood
[2024-12-26 15:52] LABS: Glucose,Whole Blood 419 mg/dL (70-110)
--- NOTE | 2024-12-26 15:57 | P.PN ---
Subjective Progress Note Date: 12/24/24 Principal diagnosis: Reason for follow-up is a positive blood culture Patient is a 74-year-old female with a past medical history significant for Asthma, Blood Disorder, Coronary Artery Disease (CAD), Chest Pain / Angina, Heart Failure, Diabetes Mellitus, Eye Disorder, GERD/Reflux, Hyperlipidemia, Hypertension, Myocardial Infarction ([place]), Musculoskeletal Disorder, Osteoarthritis (OA), Renal Disease, Skin Disorder, Supraventricular Tachycardia (SVT), Thyroid Disorder who recently did have a right hip replacement, patient presented the hospital with increasing shortness of breath and cough did have a positive blood culture prompting this consultation. On today's evaluation that is 12/24/2024 patient remains to be afebrile, patient is currently on nasal cannula oxygen still complaining of shortness of breath he did have dry hacking cough but not clear up any sputum denies any abdominal pain no diarrhea no pain to the right hip area. No lab draw today Objective - Vital Signs Vital signs: Vital Signs Temp 97.6 F 12/24/24 14:08 Pulse 87 12/24/24 14:08 Resp 20 12/24/24 14:08 BP 116/73 12/24/24 14:08 Pulse Ox 90 L 12/24/24 14:08 FiO2 Intake & Output 12/23/24 12/24/24 12/24/24 18:59 06:59 18:59 Output Total 550 1400 1350 Balance -550 -1400 -1350 Output: Urine 550 1400 1350 Other: Voiding Method External Catheter External Catheter # Voids 650 - Exam GENERAL DESCRIPTION: An elderly female up in the chair in no distress RESPIRATORY SYSTEM: Unlabored breathing , decreased breath sounds at bases HEART: S1 S2 regular rate and rhythm , ABDOMEN: Soft , no tenderness EXTREMITIES: No edema feet - Labs CBC & Chem 7: 12/26/24 05:31 12/26/24 05:31 Labs: Abnormal Lab Results - Last 24 Hours (Table) 12/23/24 12/23/24 12/24/24 Range/Units 16:59 20:16 01:51 POC Glucose (mg/dL) 186 H 261 H 261 H (70-110) mg/dL 12/24/24 12/24/24 Range/Units 06:16 12:01 POC Glucose (mg/dL) 233 H 287 H (70-110) mg/dL Microbiology - Last 24 Hours (Table) 12/22/24 02:29 Blood Culture - Preliminary Blood Assessment and Plan (1) Positive blood culture Current Visit: Yes Status: Acute Code(s): R78.81 - BACTEREMIA SNOMED Code(s): 158756054 (2) Leukocytosis Current Visit: Yes Status: Acute Code(s): D72.829 - ELEVATED WHITE BLOOD CELL COUNT, UNSPECIFIED SNOMED Code(s): 461213146 Plan: 1patient with a positive blood culture with staph epi which is more likely skin contamination this patient who recently did have a right hip replacement however the right hip surgical site incision is currently healed with no cellulitis and the patient denies having any pain to the right hip area, no need for vancomycin however blood culture has been repeated 2patient presented hospital with increasing shortness of breath and did have a cough question of asthma exacerbation with tracheobronchitis chest x-ray was atypical pneumonia 3patient white count is still elevated to 17,000 as of yesterday no CBC was done today we will repeat a CBC with a.m. lab and monitor clinical course keith kvng Dictation was produced using [employer] dictation software. please excuse any grammatical, word or spelling errors. Time with Patient: Less than 30
--- NOTE | 2024-12-26 15:58 | P.PN ---
Subjective Progress Note Date: 12/25/24 Principal diagnosis: Reason for follow-up is a positive blood culture Patient is a 74-year-old female with a past medical history significant for Asthma, Blood Disorder, Coronary Artery Disease (CAD), Chest Pain / Angina, Heart Failure, Diabetes Mellitus, Eye Disorder, GERD/Reflux, Hyperlipidemia, Hypertension, Myocardial Infarction ([place]), Musculoskeletal Disorder, Osteoarthritis (OA), Renal Disease, Skin Disorder, Supraventricular Tachycardia (SVT), Thyroid Disorder who recently did have a right hip replacement, patient presented the hospital with increasing shortness of breath and cough did have a positive blood culture prompting this consultation. On today's evaluation that is 12/25/2024, patient has been afebrile, patient did have worsening of respiratory status requiring transfer to the ICU patient is currently in the hospital for nasal cannula oxygen FiO2 of 60% patient denies having any chest pain she did have a dry cough no sputum production no abdominal pain no diarrhea The patient white count is 17.91 creatinine is 1.16 Objective - Vital Signs Vital signs: Vital Signs Temp 98.5 F 12/25/24 08:00 Pulse 63 12/25/24 10:00 Resp 17 12/25/24 10:00 BP 144/62 12/25/24 10:00 Pulse Ox 99 12/25/24 10:00 FiO2 60 12/25/24 08:20 Intake & Output 12/24/24 12/25/24 12/25/24 18:59 06:59 18:59 Intake Total 500 Output Total 1950 2700 440 Balance -1949 -440 Weight 87.4 kg 87.4 kg Intake: Oral 500 Output: Urine 1949 2700 440 Other: Voiding Method External Catheter Indwelling Catheter Indwelling Catheter - Exam GENERAL DESCRIPTION: An elderly female up in the chair in no distress RESPIRATORY SYSTEM: Unlabored breathing , decreased breath sounds at bases HEART: S1 S2 regular rate and rhythm , ABDOMEN: Soft , no tenderness EXTREMITIES: No edema feet - Labs CBC & Chem 7: 12/26/24 05:31 12/26/24 05:31 Labs: Abnormal Lab Results - Last 24 Hours (Table) 12/24/24 12/24/24 12/24/24 Range/Units 12:01 16:29 20:29 WBC (4.50-10.00) 10*3/uL RBC (4.10-5.20) 10*6/uL Hgb (12.0-15.0) g/dL Hct (37.2-46.3) % Immature Gran # (0.00-0.04) 10*3/uL Neutrophils # (1.80-7.70) 10*3/uL Lymphocytes # (0.90-5.00) 10*3/uL Eosinophils # (0.04-0.35) 10*3/uL ABG pH (7.35-7.45) ABG pO2 (83-108) mmHg ABG HCO3 (21-25) mmol/L ABG Total CO2 (19-24) mmol/L ABG O2 Saturation (94-97) % Hemoglobin (11.4-16.0) gm/dL Carbon Dioxide (22-30) mmol/L BUN (7-17) mg/dL Creatinine (0.52-1.04) mg/dL Glucose (74-99) mg/dL POC Glucose (mg/dL) 287 H 230 H 355 H (70-110) mg/dL 12/24/24 12/24/24 12/25/24 Range/Units 20:39 20:51 02:00 WBC (4.50-10.00) 10*3/uL RBC (4.10-5.20) 10*6/uL Hgb (12.0-15.0) g/dL Hct (37.2-46.3) % Immature Gran # (0.00-0.04) 10*3/uL Neutrophils # (1.80-7.70) 10*3/uL Lymphocytes # (0.90-5.00) 10*3/uL Eosinophils # (0.04-0.35) 10*3/uL ABG pH 7.46 H (7.35-7.45) ABG pO2 66 L (83-108) mmHg ABG HCO3 31 H (21-25) mmol/L ABG Total CO2 32 H (19-24) mmol/L ABG O2 Saturation 93.7 L (94-97) % Hemoglobin 10.0 L (11.4-16.0) gm/dL Carbon Dioxide (22-30) mmol/L BUN (7-17) mg/dL Creatinine (0.52-1.04) mg/dL Glucose (74-99) mg/dL POC Glucose (mg/dL) 361 H 214 H (70-110) mg/dL 12/25/24 12/25/24 12/25/24 Range/Units 05:26 05:26 06:10 WBC 17.91 H (4.50-10.00) 10*3/uL RBC 3.28 L (4.10-5.20) 10*6/uL Hgb 9.7 L (12.0-15.0) g/dL Hct 30.1 L (37.2-46.3) % Immature Gran # 0.46 H (0.00-0.04) 10*3/uL Neutrophils # 16.37 H (1.80-7.70) 10*3/uL Lymphocytes # 0.55 L (0.90-5.00) 10*3/uL Eosinophils # 0.01 L (0.04-0.35) 10*3/uL ABG pH (7.35-7.45) ABG pO2 (83-108) mmHg ABG HCO3 (21-25) mmol/L ABG Total CO2 (19-24) mmol/L ABG O2 Saturation (94-97) % Hemoglobin (11.4-16.0) gm/dL Carbon Dioxide 31 H (22-30) mmol/L BUN 49 H (7-17) mg/dL Creatinine 1.16 H (0.52-1.04) mg/dL Glucose 224 H (74-99) mg/dL POC Glucose (mg/dL) 288 H (70-110) mg/dL Microbiology - Last 24 Hours (Table) 12/22/24 02:29 Blood Culture - Preliminary Blood Assessment and Plan (1) Positive blood culture Current Visit: Yes Status: Acute Code(s): R78.81 - BACTEREMIA SNOMED Code(s): 308626215 (2) Leukocytosis Current Visit: Yes Status: Acute Code(s): D72.829 - ELEVATED WHITE BLOOD CELL COUNT, UNSPECIFIED SNOMED Code(s): 041492696 Plan: 1patient with a positive blood culture with staph epi which is more likely skin contamination this patient who recently did have a right hip replacement however the right hip surgical site incision is currently healed with no cellulitis and the patient denies having any pain to the right hip area, no need for vancomycin however blood culture has been repeated 2patient presented hospital with increasing shortness of breath and did have a cough question of asthma exacerbation with tracheobronchitis chest x-ray was atypical pneumonia, patient did have a normal procalcitonin antibiotic has been discontinued 3patient white count is still elevated more likely steroid-induced will be monitored closely Dictation was produced using [email or web address] dictation software. please excuse any grammatical, word or spelling errors. Time with Patient: Less than 30
--- NOTE | 2024-12-26 15:59 | P.PN ---
Subjective Progress Note Date: 12/26/24 Principal diagnosis: Reason for follow-up is a positive blood culture Patient is a 74-year-old female with a past medical history significant for Asthma, Blood Disorder, Coronary Artery Disease (CAD), Chest Pain / Angina, Heart Failure, Diabetes Mellitus, Eye Disorder, GERD/Reflux, Hyperlipidemia, Hypertension, Myocardial Infarction ([place]), Musculoskeletal Disorder, Osteoarthritis (OA), Renal Disease, Skin Disorder, Supraventricular Tachycardia (SVT), Thyroid Disorder who recently did have a right hip replacement, patient presented the hospital with increasing shortness of breath and cough did have a positive blood culture prompting this consultation. On today's evaluation that is 12/26/2024, Patient is afebrile this morning patient mention breathing slightly comfortably however still requiring 50% high flow nasal cannula oxygen, patient denies any chest pain or worsening of no abdominal pain or diarrhea. The patient white count is 19.52 creatinine 1.07 procalcitonin less than 0.20 Objective - Vital Signs Vital signs: Vital Signs Temp 98.7 F 12/26/24 12:00 Pulse 69 12/26/24 15:47 Resp 22 12/26/24 15:00 BP 131/52 12/26/24 15:00 Pulse Ox 97 12/26/24 15:30 FiO2 50 12/26/24 15:30 Intake & Output 12/25/24 12/26/24 12/26/24 18:59 06:59 18:59 Intake Total 200 400 425 Output Total 1640 2260 1865 Balance -1440 -1860 -1440 Weight 87.4 kg 87.7 kg Intake: Oral 200 400 425 Output: Urine 1640 2260 1865 Other: Voiding Method Indwelling Catheter Indwelling Catheter Indwelling Catheter - Exam GENERAL DESCRIPTION: An elderly female up in the chair in no distress RESPIRATORY SYSTEM: Unlabored breathing , decreased breath sounds at bases HEART: S1 S2 regular rate and rhythm , ABDOMEN: Soft , no tenderness EXTREMITIES: No edema feet - Labs CBC & Chem 7: 12/26/24 05:31 12/26/24 05:31 Labs: Abnormal Lab Results - Last 24 Hours (Table) 12/25/24 12/25/24 12/26/24 Range/Units 16:02 19:54 02:35 WBC (4.50-10.00) 10*3/uL RBC (4.10-5.20) 10*6/uL Hgb (12.0-15.0) g/dL Hct (37.2-46.3) % Immature Gran # (0.00-0.04) 10*3/uL Neutrophils # (1.80-7.70) 10*3/uL Lymphocytes # (0.90-5.00) 10*3/uL Eosinophils # (0.04-0.35) 10*3/uL Chloride (98-107) mmol/L Carbon Dioxide (22-30) mmol/L BUN (7-17) mg/dL Creatinine (0.52-1.04) mg/dL Glucose (74-99) mg/dL POC Glucose (mg/dL) 372 H 477 H 308 H (70-110) mg/dL 12/26/24 12/26/24 12/26/24 Range/Units 05:31 05:31 06:02 WBC 19.52 H (4.50-10.00) 10*3/uL RBC 3.42 L (4.10-5.20) 10*6/uL Hgb 10.0 L (12.0-15.0) g/dL Hct 31.0 L (37.2-46.3) % Immature Gran # 0.69 H (0.00-0.04) 10*3/uL Neutrophils # 17.81 H (1.80-7.70) 10*3/uL Lymphocytes # 0.60 L (0.90-5.00) 10*3/uL Eosinophils # 0.00 L (0.04-0.35) 10*3/uL Chloride 97 L (98-107) mmol/L Carbon Dioxide 33 H (22-30) mmol/L BUN 54 H (7-17) mg/dL Creatinine 1.07 H (0.52-1.04) mg/dL Glucose 280 H (74-99) mg/dL POC Glucose (mg/dL) 243 H (70-110) mg/dL 12/26/24 12/26/24 Range/Units 11:03 15:50 WBC (4.50-10.00) 10*3/uL RBC (4.10-5.20) 10*6/uL Hgb (12.0-15.0) g/dL Hct (37.2-46.3) % Immature Gran # (0.00-0.04) 10*3/uL Neutrophils # (1.80-7.70) 10*3/uL Lymphocytes # (0.90-5.00) 10*3/uL Eosinophils # (0.04-0.35) 10*3/uL Chloride (98-107) mmol/L Carbon Dioxide (22-30) mmol/L BUN (7-17) mg/dL Creatinine (0.52-1.04) mg/dL Glucose (74-99) mg/dL POC Glucose (mg/dL) 333 H 419 H (70-110) mg/dL Microbiology - Last 24 Hours (Table) 12/22/24 02:29 Blood Culture - Preliminary Blood Assessment and Plan (1) Positive blood culture Current Visit: Yes Status: Acute Code(s): R78.81 - BACTEREMIA SNOMED Code(s): 979299080 (2) Leukocytosis Current Visit: Yes Status: Acute Code(s): D72.829 - ELEVATED WHITE BLOOD CELL COUNT, UNSPECIFIED SNOMED Code(s): 775573819 Plan: 1patient with a positive blood culture with staph epi which is more likely skin contamination this patient who recently did have a right hip replacement however the right hip surgical site incision is currently healed with no cellulitis and the patient denies having any pain to the right hip area, no need for vancomycin however blood culture has been repeated 2patient presented hospital with increasing shortness of breath and did have a cough question of asthma exacerbation with tracheobronchitis chest x-ray was atypical pneumonia, patient did have a normal procalcitonin antibiotic has been discontinued 3patient white count is still elevated more likely steroid-related as the patient did have normal procalcitonin and no evidence of infection any other part of the body will be monitored closely Dictation was produced using [employer] dictation software. please excuse any grammatical, word or spelling errors. Time with Patient: Less than 30
[2024-12-26 16:53] LABS: Glucose,Whole Blood 442 mg/dL (70-110)
[2024-12-26] MEDS: INSULIN LISPRO (HumaLOG) 100 UNIT/ML 10 mL VL SQ SCH ×2 (17:29→21:10)
[2024-12-26 19:49] LABS: Glucose,Whole Blood 520 mg/dL (70-110)
[2024-12-27 01:01] LABS: Glucose,Whole Blood 268 mg/dL (70-110)
[2024-12-27 06:05] LABS: Basophils # (A) 0.04 10*3/uL (0.00-0.10); Basophils % (A) 0.2 %; Eosinophils # (A) 0.00 10*3/uL (0.04-0.35); Eosinophils % (A) 0.0 %; HCT 33.7 % (37.2-46.3); HGB 10.6 g/dL (12.0-15.0); Lymphocytes # (A) 0.60 10*3/uL (0.90-5.00); Lymphocytes % (A) 2.9 %; MCH 28.7 pg (27.0-32.0); MCHC 31.5 g/dL (32.0-37.0); MCV 91.3 fL (80.0-97.0); Monocytes # (A) 0.56 10*3/uL (0.20-1.00); Monocytes % (A) 2.7 %; Neutrophils # (A) 18.35 10*3/uL (1.80-7.70); Neutrophils % (A) 90.1 %; Platelet Count 370 10*3/uL (140-440); RBC 3.69 10*6/uL (4.10-5.20); RDW 13.7 % (11.5-14.5); WBC 20.38 10*3/uL (4.50-10.00)
[2024-12-27 06:31] LABS: African American GFR (CKD) 66 (>60 ml/min/1.73 sqM); Anion Gap 10 mmol/L; Blood Urea Nitrogen 59 mg/dL (7-17); Calcium 9.8 mg/dL (8.4-10.2); Carbon Dioxide 33 mmol/L (22-30); Chloride 96 mmol/L (98-107); Glucose 175 mg/dL (74-99); Non-African American GFR(CKD) 57 (>60 ml/min/1.73 sqM); Potassium 4.6 mmol/L (3.5-5.1); Sodium 139 mmol/L (137-145)
[2024-12-27 06:53] LABS: Glucose,Whole Blood 192 mg/dL (70-110)
[2024-12-27] MEDS: INSULIN GLARGINE (LANTUS) 100 UNIT/ML SYR SQ SCH (06:59)
--- NOTE | 2024-12-27 07:39 | XR ---
EXAMINATION TYPE: XR chest 1V portable DATE OF EXAM: 12/27/2024 5:40 AM COMPARISON: 12/26/2024 CLINICAL INDICATION: Female, 74 years old with history of diffuse infiltrates, TECHNIQUE: XR chest 1V portable view(s) obtained. FINDINGS: The heart size is enlarged. The pulmonary vasculature is somewhat prominent. Diffuse increased lung markings are present bilaterally. Pacemaker overlies left chest. Sternotomy wi res are midline. IMPRESSION: 1. Clinical correlation for congestive heart failure. Findings are similar comparison. [facility], , 12/27/2024 7:36 AM
[2024-12-27 11:08] LABS: Glucose,Whole Blood 233 mg/dL (70-110)
--- NOTE | 2024-12-27 15:47 | P.PN ---
Subjective Progress Note Date: 12/27/24 Patient is a 74-year-old female with hypertension, hyperlipidemia, DM (insulin- dependent), obesity, CAD status post CABG, ischemic cardiomyopathy (EF 25 to 30% with AICD), asthma, and osteoarthritis here for evaluation of a fall with generalized weakness. Patient reported that she developed shortness of breath, dry cough, chills, bilateral extremity swelling and generalized weakness when she was discharged from rehab on 12/09 from [facility]. She recently had a right direct anterior total hip arthroplasty on 11/24/2024. Since then she has fallen twice at home due to missed steps. She reported that her swelling has improved gradually over the past 2 weeks. On arrival to the ED, she also reported to have altered mental status. She denied chest pain, palpitations, nausea, vomiting, abdominal pain, extremity swelling, focal weakness, recent prolonged travel. On admission: Vitals: Temp 99 Fahrenheit, HI 99, RR 16, BP 114/60, O2 saturation 89% on room air Labs: WBC 17.4, hemoglobin 9.5, sodium 132, potassium 4.4, bicarb 23, BUN 16, creatinine 0.9, glucose 124, lactic acid 1.8, calcium 8.8, phosphorus 2.4, magnesium 1.7, TSH 6.7. Liver enzymes within normal ranges. Troponin negative. proBNP 3700. Urinalysis unremarkable. Cepheid 4 Plex negative. Urine Legionella antigen negative. Imaging: Chest x-ray showed cardiomegaly with prominent pulmonary vasculature and patchy bilateral lung infiltrates. Hip pelvis x-ray showed no acute osseous abnormalities. EKG showed V paced at a rate of 87, no ST-T changes, QTc 446 MS. 12/20/2024 patient seen and examined at bedside. No acute events overnight. Still requiring oxygen support with 2 to 3 L of nasal cannula. Patient has no symptoms or complaints. Labs: WBC 15.9, hemoglobin 9.3, MCV 93.6, platelet count 371,000, sodium 139, potassium 4.2, bicarb 27, BUN 16, creatinine 1.01, glucose 133, calcium 9.1, Pro-Fortino 0.22. Blood cultures positive for staph mecA/C positive. Imaging; chest x-ray independently interpreted showing improving pulmonary infiltrates 12/21/2024 patient seen and examined at bedside. No acute events overnight. Patient still requiring 2-3L oxygen. Labs: WBC 21.16, hemoglobin 9, MCV 92.9, platelet count 408,000, sodium 137, potassium 4.5, bicarb 30, BUN 29, creatinine 1.28, glucose 172, calcium 9.3, BNP 2180. Blood cultures positive for Staphylococcus epidermidis MEC A positive. Repeat CXR shows minimal improvement 12/22/2024 patient seen and examined at bedside. No acute events overnight. Patient still requiring 3 to 4 L oxygen via nasal cannula Labs: WBC 7.29, hemoglobin 9.4, platelet count 386,000, sodium 136, potassium 4.7, bicarb 28, BUN 37, creatinine 1.06, glucose 176, calcium 8.8 Imaging; echocardiogram showed LVEF 40 to 45% with moderate global hypokinesis, mild mitral and tricuspid regurgitation 12/23/2024 patient seen and examined at bedside. No acute events overnight. Patient oxygen requirements are increasing from 5 to 6 L high flow nasal cannula. Still having dry cough. Labs: WBC 7 point 0.6, hemoglobin 9.2, MCV 93, platelet count 381,000, sodium 130, potassium 4.4, chloride 102, bicarb 28, BUN 45, creatinine 1.11, glucose 96, calcium 9.1. ABG showed PO2 50 pH 7.42 and pCO2 45 Imaging; chest CT shows marked diffuse scattered groundglass opacities consisten t with pulmonary edema, ARDS or pneumonia, moderate cardiomegaly, 3.4 cm dilation of the main pulmonary artery 12/24/2024 Patient evaluated in follow-up on the medical floor. Patient remains on oxygen support increased up to 10 L high flow cannula with saturations of 90%. patient is currently on a course of IV Solu-Medrol as well as IV Lasix twice daily. She has completed a course of antibiotics. She is also maintained on a fluid restriction. ID and pulmonology are following this patient closely. Blood culture finalized revealing Staphylococcus epidermidis which is felt to be contaminant species 12/25/2024 patient seen and examined at bedside. Patient in the ICU. Requiring high flow nasal cannula rate of 50 FiO2 55% Labs: WBC 17.9, hemoglobin 9.7, MCV 90.8, platelet count 250,000 sodium 137, potassium 4.8, bicarb 31, creatinine, BUN 49, creatinine 1.16, glucose 224, mag 2.2, calcium 9.1. ABG pH 7.46, pCO2 43, bicarb 66 Imaging; chest x-ray showed so far persistent diffuse increased lung markings present 12/26/2024 patient seen and examined at bedside. Still requiring high flow nasal cannula rate of 50 FiO2 60% Labs: WBC 19.5, hemoglobin 10, chloride 97, bicarb 33, potassium 4.2, sodium 137, creatinine 1.07, BUN 54, glucose 280, calcium 9.3, proBNP 1950, Pro-Fortino less than 0.2 Imaging: Chest x-ray showed stable diffuse interstitial infiltrates 12/27/2024 patient seen and examined at bedside. No acute events overnight. Still in the ICU. Still having dry cough. High flow nasal cannula for O2 support flow rate 50 FiO2 60% Labs: WBC 20.3, hemoglobin 10.6, platelet count 370,000, sodium 139, potassium 4.6, bicarb 33, BUN 59, creatinine 0.99, glucose 175, calcium 9.8 Imaging: Chest x-ray today showed stable pulmonary infiltrates Review of systems: Pertinent positives and negatives as discussed in HPI, a complete review of systems was performed and all other systems are negative. Physical examination: Vital signs reviewed General: non toxic, no distress, appears at stated age, on Airvo Derm: no unusual rashes/lesions, warm Head: atraumatic, normocephalic, symmetric Eyes: EOMI, anicteric sclera, pupils equal round reactive to light ENT: Nose and ears atraumatic Neck: No cervical lymphadenopathy, trachea midline, supple Mouth: no lip lesion, mucus membranes moist Cardiovascular: S1S2 reg, no murmur Lungs: CTA bilateral, no rales, no accessory muscle use Abdominal: soft, nondistended, nontender to palpation, no guarding Ext: muscle strength 5 out of 5 in all 4 extremities grossly, no gross muscle atrophy, no contractures, positive dorsalis pedis pulse bilateral, no edema Neuro: CN II-XI grossly intact, no gross focal neuro deficits Psych: Alert and oriented x 3, appropriate affect and mood Assessment/Plan: The patient is admitted with an anticipated greater than 2 midnight stay for evaluation of acute respiratory failure due to HFrEF exacerbation with concern for ARDS Active: #. Acute hypoxic respiratory failure, HFrEF exacerbation with possible CAP vs ARDS #. Asthma exacerbation #. Ischemic cardiomyopathy (EF 40-45% with AICD) #. Leukocytosis, likley steroid induced -No episodes of fevers overnight. WBC elevated but not dedicated to infectious process -Supportive oxygen as needed. Currently on HFNC. Wean off as tolerated. -Chest CT showed diffuse scattered groundglass opacities concerning for pneumonia or ARDS - Completed course of Abx Zithromax p.o and Rocephin IVPB on 12/22 -On Solu-Medrol IV -Placed on Duoneb and Symbicort inhalers -Lasix 40mg IV every 12 hours per pulmonology -Daily weights, Strict InOs, Fluid restriction 1800 -Echocardiogram showed LVEF 40 to 45% with moderate global hypokinesis, mild mitral and tricuspid regurgitation -Blood cultures positive for staph mecA/C positive. Likely contaminant. Due to patient's elevated WBC and CXR findings, ID is consulted -Repeat blood cultures negative -Monitor CBC and renal fuction -Pulmonology consulted by ED #. Acute Kidney Injury, prerenal, improved - Cr 0.99 today -Monitor UO -Avoid nephrotoxic agents #. Mechanical Fall secondary to above #. Recent Right anterior total hip arthroplasty Hip pelvis x-ray showed no acute osseous abnormalities. Ortho consulted by ED. No intervention recommended at this time D/c Ketorolac IV due to BEV. Continue with PO norco prn #. Normocytic anemia at baseline Hemoglobin 10 Monitor CBC. Transfuse if Hgb <7. Chronic Conditions: #. Diabetes mellitus, on insulin pump -Hemoglobin A1c 7.3 in November 2024 -Continue home insulin pump -Glucose Accu-Cheks ACHS -Insulin glargine 12 units nightly and 22 units daily -Initiate Insulin basal rates every 6 hours as needed -Monitor for hypoglycemia #. Hypertension #. Hyperlipidemia #. Obesity #. CAD status post CABG #. Osteoarthritis Resume home aspirin, bupropion 150, buspirone 10 mg, carvedilol 12.5 mg, clop idogrel 75 mg, dapagliflozin 10 mg, ezetimibe 10 mg, fluvoxamine 100 mg, furosemide 20 mg gabapentin 300 mg, Synthroid 125 mcg, rosuvastatin 40 mg, Entresto, trazodone 50 mg DVT ppx: Heparin subq GI prophylaxis: Pantoprazole 40 mg IVP twice daily CODE STATUS: Full Discussed with: Patient Anticipated discharge place: Home Zoila Walsh MD PGY-1/Mobile [employer] Developer Internal Medicine Dictation was produced using [employer] dictation software. please excuse any grammatical, word or spelling errors. Objective - Vital Signs Vital signs: Vital Signs Temp 98.0 F 12/27/24 08:00 Pulse 68 12/27/24 08:00 Resp 24 12/27/24 08:00 BP 141/53 12/27/24 08:00 Pulse Ox 90 L 12/27/24 08:00 FiO2 65 12/27/24 08:08 Intake & Output 12/26/24 12/27/24 12/27/24 18:59 06:59 18:59 Intake Total 800 Output Total 2190 1815 75 Balance -1390 -1815 -75 Weight 89.6 kg Intake: Oral 800 Output: Urine 2190 1815 75 Other: Voiding Method Indwelling Catheter Indwelling Catheter Indwelling Catheter - Labs CBC & Chem 7: 01/11/25 06:23 01/11/25 06:23 Labs: Abnormal Lab Results - Last 24 Hours (Table) 12/26/24 12/26/24 12/26/24 Range/Units 11:03 15:50 16:52 WBC (4.50-10.00) 10*3/uL RBC (4.10-5.20) 10*6/uL Hgb (12.0-15.0) g/dL Hct (37.2-46.3) % MCHC (32.0-37.0) g/dL Immature Gran # (0.00-0.04) 10*3/uL Neutrophils # (1.80-7.70) 10*3/uL Lymphocytes # (0.90-5.00) 10*3/uL Eosinophils # (0.04-0.35) 10*3/uL Chloride (98-107) mmol/L Carbon Dioxide (22-30) mmol/L BUN (7-17) mg/dL Glucose (74-99) mg/dL POC Glucose (mg/dL) 333 H 419 H 442 H (70-110) mg/dL 12/26/24 12/27/24 12/27/24 Range/Units 19:47 01:00 05:29 WBC 20.38 H (4.50-10.00) 10*3/uL RBC 3.69 L (4.10-5.20) 10*6/uL Hgb 10.6 L (12.0-15.0) g/dL Hct 33.7 L (37.2-46.3) % MCHC 31.5 L (32.0-37.0) g/dL Immature Gran # 0.83 H (0.00-0.04) 10*3/uL Neutrophils # 18.35 H (1.80-7.70) 10*3/uL Lymphocytes # 0.60 L (0.90-5.00) 10*3/uL Eosinophils # 0.00 L (0.04-0.35) 10*3/uL Chloride (98-107) mmol/L Carbon Dioxide (22-30) mmol/L BUN (7-17) mg/dL Glucose (74-99) mg/dL POC Glucose (mg/dL) 520 H* 268 H (70-110) mg/dL 12/27/24 12/27/24 Range/Units 05:29 06:52 WBC (4.50-10.00) 10*3/uL RBC (4.10-5.20) 10*6/uL Hgb (12.0-15.0) g/dL Hct (37.2-46.3) % MCHC (32.0-37.0) g/dL Immature Gran # (0.00-0.04) 10*3/uL Neutrophils # (1.80-7.70) 10*3/uL Lymphocytes # (0.90-5.00) 10*3/uL Eosinophils # (0.04-0.35) 10*3/uL Chloride 96 L (98-107) mmol/L Carbon Dioxide 33 H (22-30) mmol/L BUN 59 H (7-17) mg/dL Glucose 175 H (74-99) mg/dL POC Glucose (mg/dL) 192 H (70-110) mg/dL Assessment and Plan Assessment: Attestation Attestation/ Tool Storage Attendant Note: Attestation to Progress Note, Participation (I saw and evaluated the patient with the Resident, and I reviewed and discussed the patient with the Resident and agree with the Resident's findings and plans as documented above., management reviewed and discussed), I agree with findings & plan, Provider Signature (TUYET GRULLON MD Time with Patient: Greater than 30
[2024-12-27 16:26] LABS: Glucose,Whole Blood 246 mg/dL (70-110)
[2024-12-27 20:12] LABS: Glucose,Whole Blood 262 mg/dL (70-110)
--- NOTE | 2024-12-28 00:54 | PN ---
PROGRESS NOTE ADDENDUM: This is a 74-year-old female, who is seen again in room 257. She is admitted with diagnosis of acute hypoxemic respiratory failure, pneumonia, and CHF. She continues on AIRVO at 50 L/minute, with FiO2 of 50%. She is not receiving any IV fluids. She had an uneventful night last night. Unfortunately, any activity, causes her saturations to drop. We will recheck her N terminal proBNP. The patient otherwise is doing about the same. She remains critically ill. PHYSICAL EXAMINATION: VITAL SIGNS: Unavailable. HEENT: Examination is grossly unremarkable. NECK: Supple, full range of motion. No adenopathy or thyromegaly. Neck veins are flat. CARDIOVASCULAR: Reveals regular rhythm rate. Heart sounds are distant. No murmur. LUNGS: Reveal scattered rhonchi and crackles. ABDOMEN: Soft. Bowel sounds are heard. EXTREMITIES: Intact. No edema. No cyanosis or clubbing. SKIN: Without rash. NEUROLOGIC: Brief, but nonfocal. LABORATORY DATA: Labs, x-rays, medications are reviewed. PLAN: We will continue to follow the patient, make recommendations. We will recheck her BMP. It has come down steadily throughout her hospitalization. We are thinking more of CHF than pneumonia. She also has a history of underlying asthma, for which she is receiving IV corticosteroids. We will continue to follow. Prognosis is guarded. MMODL / IJN: [id number] /
[2024-12-28 02:01] LABS: Glucose,Whole Blood 257 mg/dL (70-110)
[2024-12-28 04:33] LABS: HCT 32.3 % (37.2-46.3); HGB 10.4 g/dL (12.0-15.0); MCH 29.0 pg (27.0-32.0); MCHC 32.2 g/dL (32.0-37.0); MCV 90.0 fL (80.0-97.0); Platelet Count 352 10*3/uL (140-440); RBC 3.59 10*6/uL (4.10-5.20); RDW 13.8 % (11.5-14.5); WBC 19.63 10*3/uL (4.50-10.00)
--- NOTE | 2024-12-28 04:36 | PN ---
PROGRESS NOTE DATE OF SERVICE: 12/27/2024 SUBJECTIVE: This is a very pleasant 74-year-old female patient who is seen today in followup in the Intensive Care Unit. She is currently awake and alert, in no acute distress. Sitting up in bed. She is requiring interval high-flow oxygen at 50 L/minute at 50% FiO2. She has minimal activity tolerance due to desaturations. She remains on IV diuretics. Her procalcitonin was negative at 0.20. Her last proBNP was 1950. Labs and medications are reviewed. PHYSICAL EXAM: GENERAL: Alert, pleasant 74-year-old female, sitting up in bed, on Airvo at 50 L and 50% FiO2, in no acute distress. HEENT: Head is normocephalic. Sclerae are nonicteric. NECK: Supple. No JVD. LUNGS: Clear anteriorly. Crackles in the posterior bases. CARDIOVASCULAR: Heart is regular. S1, S2. ABDOMEN: Soft, nontender. Bowel sounds are present. EXTREMITIES: There is 1 to 2+ lower extremity edema. Peripheral pulses are intact. ASSESSMENT: Acute hypoxic respiratory failure secondary to an acute exacerbation of diastolic congestive heart failure, possible acute respiratory distress syndrome, doubt pneumonia. PLAN: 1. The patient was seen and evaluated. 2. Labs and medications reviewed. 3. Chest x-ray reviewed. 4. Continue with IV diuretics. 5. Check a proBNP. 6. Titrate down her FiO2 as tolerated. 7. Increase her activity as tolerated. 8. We will continue to follow and make further recommendations based on her clinical status. TIME STATEMENT: This patient was seen and evaluated. The HPI, plan, and assessment were dictated by Tierra cummings DNP. MMODL / JAQUANN: [id number] /
[2024-12-28 04:55] LABS: African American GFR (CKD) 57 (>60 ml/min/1.73 sqM); Anion Gap 7 mmol/L; Blood Urea Nitrogen 66 mg/dL (7-17); Calcium 9.3 mg/dL (8.4-10.2); Carbon Dioxide 33 mmol/L (22-30); Chloride 94 mmol/L (98-107); Glucose 205 mg/dL (74-99); Non-African American GFR(CKD) 49 (>60 ml/min/1.73 sqM); Potassium 4.0 mmol/L (3.5-5.1); Sodium 134 mmol/L (137-145)
[2024-12-28 06:02] LABS: Glucose,Whole Blood 170 mg/dL (70-110)
--- NOTE | 2024-12-28 07:50 | XR ---
EXAMINATION TYPE: XR chest 1V portable DATE OF EXAM: 12/28/2024 5:20 AM COMPARISON: 12/27/2024 CLINICAL INDICATION: Female, 74 years old with history of chf, TECHNIQUE: XR chest 1V portable view(s) obtained. FINDINGS: The heart size is normal. The pulmonary vasculature is prominent. Diffuse increased lung markings are present. Correlate for pulmonary edema. IMPRESSION: 1. Clinical correlation for congestive heart failure. Findings are similar in comparison. Continued f ollow-up is recommended [facility], , 12/28/2024 7:48 AM
[2024-12-28 11:38] LABS: Glucose,Whole Blood 355 mg/dL (70-110)
--- NOTE | 2024-12-28 11:46 | P.PN ---
Subjective Progress Note Date: 12/28/24 Patient is a 75-year-old female with past medical history significant for hypertension, hyperlipidemia, insulin-dependent diabetes mellitus, obesity, coronary artery disease with previous CABG, ischemic cardiomyopathy with an ejection fraction of 25 to 30% with AICD, asthma, and osteoarthritis. Of note, patient recently underwent right direct anterior total hip arthroplasty on 11/24/2024. She was discharged from the hospital to [facility] for rehabilitation. While at the outside facility, developed shortness of breath, coughing, and generalized weakness. States she was released from [facility] to home last Wednesday on November. Since then, she has fallen twice while at home. Brought in by EMS yesterday evening hypoxic and confused. She was placed on supplemental oxygen. Workup in the emergency department including a chest x-ray showing patchy bilateral lung infiltrates concerning for congestive heart failure or atypical pneumonias. CBC: WBC count 14.7, hemoglobin 9.5 g/dL, platelets 374. BMP: Sodium 132, potassium 4.4, chloride 100, serum bicarb 23, BUN 16, creatinine 0.92, glucose 124. Lactic 1.8. LFTs unremarkable. Troponin less than 0.012. NT proBNP 6.74. Viral 4 Plex negative for influenza A/B, RSV, COVID. Urinalysis unremarkable for UTI. Patient currently being evaluated on the general medical floor. She is alert and oriented x 3. Endorses above menti oned complaints. Does report history of asthma. Has had increased work of breathing over the last couple weeks. Suffering from persistent nonproductive cough over the same timeframe. States her symptoms actually started at [facility]. She has had a poor appetite with occasional nausea and vomiting. She has been able to take some of her home medications. Has had intermittent fevers with a Tmax of 100.8 F. Was started on empiric antibiotics in the ED, in the form azithromycin and Rocephin. Normal saline infusing at 50 mL/h. Denies any chest pain. Does endorse unilateral right lower lower extremity edema. No heart palpitations, syncopal events, hemoptysis. Current vital signs: Temperature 100.8 F, heart rate 95 bpm, blood pressure 124/54 mmHg, nontachypneic, SpO2 recorded at 96% on 3 L/min nasal cannula. The patient is seen today December 20, 2024 and follow-up on the regular medical floor. She is currently sitting up in bed. Awake and alert in no acute distress. Feeling a bit better today compared to yesterday. Maintaining O2 saturations in the 90s on 3 L/min per nasal cannula. Chest x-ray shows continued infiltrate of the right lung with improvement in the left lung. Blood culture is coming back positive. ID pending. White count 15.9. Hemoglobin 9.3. Platelets 371. Sodium 139. Potassium 4.2. Bicarb 27. BUN 16. Creatinine 1.01. Glucose 133. She remains on DuoNeb inhalations, IV Solu- Medrol, IV diuretics. Lovenox for DVT prophylaxis. Antibiotics in the form of ceftriaxone. The patient is seen today December 21, 2024 in follow-up on the regular medical floor. She is currently sitting up in a chair. Awake and alert in no acute distress. Maintaining O2 saturations in the 90s on 3 L/min per nasal cannula. She has been afebrile. Hemodynamically stable. Blood cultures showing staph epidermidis, most likely contaminant. White count 21.1. Hemoglobin 9.0. Platelets 409. Sodium 137. Potassium 4.5. Bicarb 30. BUN 29. Creatinine 1. 28. Glucose 172. proBNP 2180. She remains on DuoNeb inhalations, Solu-Medrol. Antibiotics in the form of ceftriaxone. Lovenox for DVT prophylaxis. Remains on IV diuretics. No accurate intake and output recorded. Chest x-ray showing similar findings with basilar infiltrates right greater than left. The patient is seen today December 22, 2024 in follow-up on the regular medical floor. She is sitting up at the bedside. Awake and alert in no acute distress. She has been slow to progress. She is still dyspneic with minimal exertion. Dyspneic with conversation. She is maintaining O2 saturations in the 90s on 7 L high flow nasal cannula. Echocardiogram reveals impaired left ventricular systolic function with an ejection fraction [address] scan of the chest revealed marked diffuse scattered groundglass opacities consistent with pulmonary edema, ARDS or pneumonia. AICD in place. Blood culture positive for Staphylococcus epidermidis. White count 17.9. Hemoglobin 9.4. Platelets 386. Sodium 136. Potassium 4.7. Bicarb 28. BUN 37. Creatinine 1.06. Glucose 176. She remains on DuoNeb inhalations, Solu-Medrol. Remains on oral diuretics. Antibiotics in the form of ceftriaxone. Heparin for DVT prophylaxis. The patient is seen today December 23, 2024 in follow-up on the regular medical floor. She is currently resting in bed. Awake and alert in no acute distress. Feeling a bit better today compared to yesterday. She is maintaining O2 saturations in the 90s on 6 L high flow nasal cannula. She remains afebrile. Hemodynamically stable. Initial blood cultures showing staph epidermidis. Follow-up blood culture reveals no growth. White count 17.6. Hemoglobin 9.2. Platelets 381. Sodium 138. Potassium 4.4. Bicarb 28. BUN 45. Creatinine 1.11. Glucose 115. Arterial blood gases on 44% FiO2 revealed a PO2 of 50, HPL912 and a pH of 7.42. She remains on DuoNeb inhalations, Solu-Medrol and Robitussin as needed. Heparin for DVT prophylaxis. She remains on Lasix 40 mg every 12 hours. No accurate intake and output recorded. The patient is seen today December 24, 2024 in follow-up on the regular medical floor. She is awake and alert in no acute distress. Resting in bed. No worsening shortness of breath, cough or congestion. She is still requiring 10 L high flow nasal cannula to maintain O2 saturations in the 90s. Lung sounds improved. Blood cultures were positive for Staphylococcus epidermidis. Most likely a contaminant. Follow-up blood culture revealed no growth. Glucose 233. She remains on DuoNeb inhalations, Symbicort, Solu-Medrol. She remains on IV Lasix. Heparin for DVT prophylaxis. Currently in a -1.9 L balance. The patient is seen today December 25, 2024 in follow-up in the intensive care unit. She was transferred down here last evening after having issues with worsening hypoxemia. She is currently on Airvo high flow oxygen at 50 L and 50% FiO2. She is afebrile. Hemodynamically stable. Chest x-ray continues to show cardiomegaly with pulmonary vascular congestion and bilateral pleural effusions. Follow-up blood culture revealed no growth. White count 17.9. Hemoglobin 9.7. Platelets 350. Sodium 137. Potassium 4.8. Bicarb 31. BUN 49. Creatinine 1.16. Glucose 224. She remains on DuoNeb inhalations, Symbicort, Solu-Medrol. Heparin for DVT prophylaxis. She remains on Lasix 40 mg IV every 12 hours. C urrently in a -4 L balance. The patient is seen today December 26, 2024 in follow-up in the intensive care unit. She is currently sitting up in bed. Awake and alert in no acute distress. Feeling a bit better today compared to yesterday. She is still high flow oxygen at 50 L and 60% FiO2. No IV fluids. She has been afebrile. Hemodynamically stable. Chest x-ray continues to show diffuse infiltrates bilaterally right greater than left. Follow-up blood culture reveals no growth. White count 1 9.5. Hemoglobin 10.0. Platelets 359. Sodium 137. Potassium 4.2. Bicarb 33. BUN 54. Creatinine 1.07. Glucose 280. Continued on Lasix 40 mg IV every 12 hours. Currently net -3.3 L balance. She remains on DuoNeb and elations, Symbicort, Solu-Medrol. Robitussin for her cough. The patient is seen today December 27, 2024 in follow-up in the intensive care unit. She is awake and alert in no acute distress. Sitting up in bed. Remains on Airvo high flow oxygen at 50 L and 50% FiO2. No IV fluids. Chest x-ray is showing fluid volume overload but improving. Initial blood culture positive for staph epidermidis. Follow-up blood culture revealed no growth. White count 19.6. Hemoglobin 10.4. Platelets 352. Sodium 134. Potassium 4.0. Bicarb 33. BUN 66. Creatinine 1.12. Glucose 205. She is continued on DuoNeb inhalations, Symbicort, Solu-Medrol. Heparin for DVT prophylaxis. She remains on Lasix 40 mg IV every 12 hours. Currently in a -700 mL balance. Objective - Vital Signs Vital signs: Vital Signs Temp 98.0 F 12/28/24 08:00 Pulse 64 12/28/24 10:00 Resp 17 12/28/24 10:00 BP 128/55 12/28/24 10:00 Pulse Ox 98 12/28/24 10:00 FiO2 50 12/28/24 08:31 Intake & Output 12/27/24 12/28/24 12/28/24 18:59 06:59 18:59 Intake Total 540 1000 500 Output Total 1355 920 300 Balance -815 80 200 Weight 88.5 kg Intake: Oral 540 1000 500 Output: Urine 1355 920 300 Other: Voiding Method Indwelling Catheter Indwelling Catheter Indwelling Catheter # Bowel Movements 1 - Exam GENERAL EXAM: Alert, 74-year-old female, on Airvo high flow oxygen at 50 L and 50% FiO2, in no acute distress. HEAD: Normocephalic and atraumatic EYES: Normal reaction of pupils, equal size. NOSE: Clear with pink turbinates. THROAT: No erythema or exudates. NECK: No masses, no JVD. CHEST: No chest wall deformity. Left chest implanted device. LUNGS: Equal air entry crackles in the posterior bases right greater than left. CVS: S1 and S2 normal with no audible murmur, regular rhythm. No extra heart sounds ABDOMEN: No hepatosplenomegaly, active bowel sounds, no guarding or rigidity. SPINE: No scoliosis or deformity SKIN: No rashes CENTRAL NERVOUS SYSTEM: No focal deficits, tone is normal in all 4 extremities. EXTREMITIES: Right anterior hip incision is approximated, pink, without dehiscence or drainage. Full range of motion. Right lower extremity pitting edema. Peripheral pulses are intact. - Labs CBC & Chem 7: 12/28/24 04:02 12/28/24 04:02 Labs: Abnormal Lab Results - Last 24 Hours (Table) 12/27/24 12/27/24 12/28/24 Range/Units 16:25 20:11 02:00 WBC (4.50-10.00) 10*3/uL RBC (4.10-5.20) 10*6/uL Hgb (12.0-15.0) g/dL Hct (37.2-46.3) % Sodium (137-145) mmol/L Chloride (98-107) mmol/L Carbon Dioxide (22-30) mmol/L BUN (7-17) mg/dL Creatinine (0.52-1.04) mg/dL Glucose (74-99) mg/dL POC Glucose (mg/dL) 246 H 262 H 257 H (70-110) mg/dL 12/28/24 12/28/24 12/28/24 Range/Units 04:02 04:02 06:00 WBC 19.63 H (4.50-10.00) 10*3/uL RBC 3.59 L (4.10-5.20) 10*6/uL Hgb 10.4 L (12.0-15.0) g/dL Hct 32.3 L (37.2-46.3) % Sodium 134 L (137-145) mmol/L Chloride 94 L (98-107) mmol/L Carbon Dioxide 33 H (22-30) mmol/L BUN 66 H (7-17) mg/dL Creatinine 1.12 H (0.52-1.04) mg/dL Glucose 205 H (74-99) mg/dL POC Glucose (mg/dL) 170 H (70-110) mg/dL 12/28/24 Range/Units 11:35 WBC (4.50-10.00) 10*3/uL RBC (4.10-5.20) 10*6/uL Hgb (12.0-15.0) g/dL Hct (37.2-46.3) % Sodium (137-145) mmol/L Chloride (98-107) mmol/L Carbon Dioxide (22-30) mmol/L BUN (7-17) mg/dL Creatinine (0.52-1.04) mg/dL Glucose (74-99) mg/dL POC Glucose (mg/dL) 355 H (70-110) mg/dL Microbiology - Last 24 Hours (Table) 12/22/24 02:29 Blood Culture - Final Blood Assessment and Plan Assessment: Healthcare associated pneumonia, bilateral. CT scan of the chest reveals marked diffuse scattered groundglass opacities consistent with pulmonary edema, ARDS or pneumonia. Moderate cardiomegaly. Procalcitonin negative x 2 Acute asthma exacerbation Acute hypoxemic respiratory failure, currently on Airvo high flow oxygen at 50 L and 50% FiO2, secondary to above. Chest x-ray remarkable for cardiomegaly, possible pulmonary vascular congestion, patchy bilateral lower lung infiltrates. Prior sternotomy wires. AICD generator and leads. Concerning for atypical pneumonia or congestive heart failure. BNP 1950 Acute febrile illness, recovered Acute leukocytosis, improving History of right direct anterior total hip arthroplasty on November 24 Acute blood loss anemia, expected outcome of surgery Hypertension History of hyperlipidemia Insulin-dependent diabetes mellitus Obesity with a BMI of 35.4 kg/m Coronary artery disease, with history of CABG and cardiac stents History of ischemic cardiomyopathy with an ejection fraction improved to 40 to 45% Implanted AICD/pacemaker Hypothyroidism Anxiety/depression Plan: The patient was seen and evaluated Chest x-ray, labs and medications reviewed Currently on Airvo high flow oxygen at 50 L and 50% FiO2 Continue Solu-Medrol 60 mg every 6 hours Continue Lasix at 40 mg IV every 12 hours Continue DuoNeb inhalations Continue Symbicort Continue Robitussin Heparin for DVT prophylaxis Titrate down the FiO2 as tolerated Increase her activity as tolerated We will continue to follow I have personally seen and examined the patient, performed the documentation and the assessment and plan as written. Number of minutes spent on the visit: 10 Dictation was produced using [employer] dictation software. Please excuse any grammatical, word or spelling errors.
[2024-12-28] MEDS: INSULIN LISPRO (HumaLOG) 100 UNIT/ML 10 mL VL SQ SCH (11:54)
--- NOTE | 2024-12-28 15:04 | P.PN ---
Subjective Progress Note Date: 12/28/24 Patient is a 74-year-old female with hypertension, hyperlipidemia, DM (insulin- dependent), obesity, CAD status post CABG, ischemic cardiomyopathy (EF 25 to 30% with AICD), asthma, and osteoarthritis here for evaluation of a fall with generalized weakness. Patient reported that she developed shortness of breath, dry cough, chills, bilateral extremity swelling and generalized weakness when she was discharged from rehab on 12/09 from [facility]. She recently had a right direct anterior total hip arthroplasty on 11/24/2024. Since then she has fallen twice at home due to missed steps. She reported that her swelling has improved gradually over the past 2 weeks. On arrival to the ED, she also reported to have altered mental status. She denied chest pain, palpitations, nausea, vomiting, abdominal pain, extremity swelling, focal weakness, recent prolonged travel. On admission: Vitals: Temp 99 Fahrenheit, AL 99, RR 16, BP 114/60, O2 saturation 89% on room air Labs: WBC 17.4, hemoglobin 9.5, sodium 132, potassium 4.4, bicarb 23, BUN 16, creatinine 0.9, glucose 124, lactic acid 1.8, calcium 8.8, phosphorus 2.4, magnesium 1.7, TSH 6.7. Liver enzymes within normal ranges. Troponin negative. proBNP 3700. Urinalysis unremarkable. Cepheid 4 Plex negative. Urine Legionella antigen negative. Imaging: Chest x-ray showed cardiomegaly with prominent pulmonary vasculature and patchy bilateral lung infiltrates. Hip pelvis x-ray showed no acute osseous abnormalities. EKG showed V paced at a rate of 87, no ST-T changes, QTc 446 MS. 12/20/2024 patient seen and examined at bedside. No acute events overnight. Still requiring oxygen support with 2 to 3 L of nasal cannula. Patient has no symptoms or complaints. Labs: WBC 15.9, hemoglobin 9.3, MCV 93.6, platelet count 371,000, sodium 139, potassium 4.2, bicarb 27, BUN 16, creatinine 1.01, glucose 133, calcium 9.1, Pro-Fortino 0.22. Blood cultures positive for staph mecA/C positive. Imaging; chest x-ray independently interpreted showing improving pulmonary infiltrates 12/21/2024 patient seen and examined at bedside. No acute events overnight. Patient still requiring 2-3L oxygen. Labs: WBC 21.16, hemoglobin 9, MCV 92.9, platelet count 408,000, sodium 137, potassium 4.5, bicarb 30, BUN 29, creatinine 1.28, glucose 172, calcium 9.3, BNP 2180. Blood cultures positive for Staphylococcus epidermidis MEC A positive. Repeat CXR shows minimal improvement 12/22/2024 patient seen and examined at bedside. No acute events overnight. Patient still requiring 3 to 4 L oxygen via nasal cannula Labs: WBC 7.29, hemoglobin 9.4, platelet count 386,000, sodium 136, potassium 4.7, bicarb 28, BUN 37, creatinine 1.06, glucose 176, calcium 8.8 Imaging; echocardiogram showed LVEF 40 to 45% with moderate global hypokinesis, mild mitral and tricuspid regurgitation 12/23/2024 patient seen and examined at bedside. No acute events overnight. Patient oxygen requirements are increasing from 5 to 6 L high flow nasal cannula. Still having dry cough. Labs: WBC 7 point 0.6, hemoglobin 9.2, MCV 93, platelet count 381,000, sodium 130, potassium 4.4, chloride 102, bicarb 28, BUN 45, creatinine 1.11, glucose 96, calcium 9.1. ABG showed PO2 50 pH 7.42 and pCO2 45 Imaging; chest CT shows marked diffuse scattered groundglass opacities consisten t with pulmonary edema, ARDS or pneumonia, moderate cardiomegaly, 3.4 cm dilation of the main pulmonary artery 12/24/2024 Patient evaluated in follow-up on the medical floor. Patient remains on oxygen support increased up to 10 L high flow cannula with saturations of 90%. patient is currently on a course of IV Solu-Medrol as well as IV Lasix twice daily. She has completed a course of antibiotics. She is also maintained on a fluid restriction. ID and pulmonology are following this patient closely. Blood culture finalized revealing Staphylococcus epidermidis which is felt to be contaminant species 12/25/2024 patient seen and examined at bedside. Patient in the ICU. Requiring high flow nasal cannula rate of 50 FiO2 55% Labs: WBC 17.9, hemoglobin 9.7, MCV 90.8, platelet count 250,000 sodium 137, potassium 4.8, bicarb 31, creatinine, BUN 49, creatinine 1.16, glucose 224, mag 2.2, calcium 9.1. ABG pH 7.46, pCO2 43, bicarb 66 Imaging; chest x-ray showed so far persistent diffuse increased lung markings present 12/26/2024 patient seen and examined at bedside. Still requiring high flow nasal cannula rate of 50 FiO2 60% Labs: WBC 19.5, hemoglobin 10, chloride 97, bicarb 33, potassium 4.2, sodium 137, creatinine 1.07, BUN 54, glucose 280, calcium 9.3, proBNP 1950, Pro-Fortino less than 0.2 Imaging: Chest x-ray showed stable diffuse interstitial infiltrates 12/27/2024 patient seen and examined at bedside. No acute events overnight. Still in the ICU. Still having dry cough. High flow nasal cannula for O2 support flow rate 50 FiO2 60% Labs: WBC 20.3, hemoglobin 10.6, platelet count 370,000, sodium 139, potassium 4.6, bicarb 33, BUN 59, creatinine 0.99, glucose 175, calcium 9.8 Imaging: Chest x-ray today showed stable pulmonary infiltrates 12/28/2024 patient seen and examined at bedside. No acute events overnight. Still requiring high flow nasal cannula rate 50 at 50% FiO2 Labs: WBC 19.6, hemoglobin 10.4, sodium 134, potassium 4, bicarb 33, BUN 66, creatinine 1.12, glucose 205, magnesium 2.3 Imaging: Chest x-ray shows stable diffuse interstitial infiltrates Review of systems: Pertinent positives and negatives as discussed in HPI, a complete review of systems was performed and all other systems are negative. Physical examination: Vital signs reviewed General: non toxic, no distress, appears at stated age, on Airvo Derm: no unusual rashes/lesions, warm Head: atraumatic, normocephalic, symmetric Eyes: EOMI, anicteric sclera, pupils equal round reactive to light ENT: Nose and ears atraumatic Neck: No cervical lymphadenopathy, trachea midline, supple Mouth: no lip lesion, mucus membranes moist Cardiovascular: S1S2 reg, no murmur Lungs: CTA bilateral, no rales, no accessory muscle use Abdominal: soft, nondistended, nontender to palpation, no guarding Ext: muscle strength 5 out of 5 in all 4 extremities grossly, no gross muscle atrophy, no contractures, positive dorsalis pedis pulse bilateral, no edema Neuro: CN II-XI grossly intact, no gross focal neuro deficits Psych: Alert and oriented x 3, appropriate affect and mood Assessment/Plan: The patient is admitted with an anticipated greater than 2 midnight stay for evaluation of acute respiratory failure due to HFrEF exacerbation with concern for ARDS Active: #. Acute hypoxic respiratory failure, HFrEF exacerbation with possible CAP vs ARDS #. Asthma exacerbation #. Ischemic cardiomyopathy (EF 40-45% with AICD) #. Leukocytosis, likley steroid induced -No episodes of fevers overnight. WBC elevated but not dedicated to infectious process -Supportive oxygen as needed. Currently on HFNC. Wean off as tolerated. -Chest CT showed diffuse scattered groundglass opacities concerning for pneumonia or ARDS - Completed course of Abx Zithromax p.o and Rocephin IVPB on 12/22 -On Solu-Medrol IV -Placed on Duoneb and Symbicort inhalers -Lasix 40mg IV every 12 hours per pulmonology -Daily weights, Strict InOs, Fluid restriction 1800 -Blood cultures positive for staph mecA/C positive. Likely contaminant. -Repeat blood cultures negative -Monitor CBC and renal fuction -Pulmonology consulted by ED #. Acute Kidney Injury, prerenal - Cr 1.12 today -Monitor UO -Avoid nephrotoxic agents #. Mechanical Fall secondary to above #. Recent Right anterior total hip arthroplasty Hip pelvis x-ray showed no acute osseous abnormalities. Ortho consulted by ED. No intervention recommended at this time D/c Ketorolac IV due to BEV. Continue with PO norco prn #. Normocytic anemia at baseline Hemoglobin 10.4 Monitor CBC. Transfuse if Hgb <7. Chronic Conditions: #. Diabetes mellitus, on insulin pump -Hemoglobin A1c 7.3 in November 2024 -Hold home insulin pump as she has run out of home insulin -Glucose Accu-Cheks ACHS -Insulin lispro 15 units AC-TID -Glarigine 25 units BID -Initiate Insulin basal rates every 6 hours as needed -Monitor for hypoglycemia #. Hypertension #. Hyperlipidemia #. Obesity #. CAD status post CABG #. Osteoarthritis Resume home aspirin, bupropion 150, buspirone 10 mg, carvedilol 12.5 mg, clopidogrel 75 mg, dapagliflozin 10 mg, ezetimibe 10 mg, fluvoxamine 100 mg, furosemide 20 mg gabapentin 300 mg, Synthroid 125 mcg, rosuvastatin 40 mg, Entresto, trazodone 50 mg DVT ppx: Heparin subq GI prophylaxis: Pantoprazole 40 mg IVP twice daily CODE STATUS: Full Discussed with: Patient Anticipated discharge place: Home Zoila Walsh MD PGY-1/[employer] Program Manager Internal Medicine Dictation was produced using [employer] dictation software. please excuse any grammatical, word or spelling errors. Objective - Vital Signs Vital signs: Vital Signs Temp 97.9 F 12/28/24 04:00 Pulse 66 12/28/24 07:00 Resp 17 12/28/24 07:00 BP 144/69 12/28/24 07:00 Pulse Ox 93 L 12/28/24 07:00 FiO2 50 12/28/24 07:00 Intake & Output 12/27/24 12/28/24 12/28/24 18:59 06:59 18:59 Intake Total 540 1000 500 Output Total 1355 920 50 Balance -815 80 450 Weight 88.5 kg Intake: Oral 540 1000 500 Output: Urine 1355 920 50 Other: Voiding Method Indwelling Catheter Indwelling Catheter # Bowel Movements 1 - Labs CBC & Chem 7: 01/11/25 06:23 01/11/25 06:23 Labs: Abnormal Lab Results - Last 24 Hours (Table) 12/27/24 12/27/24 12/27/24 Range/Units 11:06 16:25 20:11 WBC (4.50-10.00) 10*3/uL RBC (4.10-5.20) 10*6/uL Hgb (12.0-15.0) g/dL Hct (37.2-46.3) % Sodium (137-145) mmol/L Chloride (98-107) mmol/L Carbon Dioxide (22-30) mmol/L BUN (7-17) mg/dL Creatinine (0.52-1.04) mg/dL Glucose (74-99) mg/dL POC Glucose (mg/dL) 233 H 246 H 262 H (70-110) mg/dL 12/28/24 12/28/24 12/28/24 Range/Units 02:00 04:02 04:02 WBC 19.63 H (4.50-10.00) 10*3/uL RBC 3.59 L (4.10-5.20) 10*6/uL Hgb 10.4 L (12.0-15.0) g/dL Hct 32.3 L (37.2-46.3) % Sodium 134 L (137-145) mmol/L Chloride 94 L (98-107) mmol/L Carbon Dioxide 33 H (22-30) mmol/L BUN 66 H (7-17) mg/dL Creatinine 1.12 H (0.52-1.04) mg/dL Glucose 205 H (74-99) mg/dL POC Glucose (mg/dL) 257 H (70-110) mg/dL 12/28/24 Range/Units 06:00 WBC (4.50-10.00) 10*3/uL RBC (4.10-5.20) 10*6/uL Hgb (12.0-15.0) g/dL Hct (37.2-46.3) % Sodium (137-145) mmol/L Chloride (98-107) mmol/L Carbon Dioxide (22-30) mmol/L BUN (7-17) mg/dL Creatinine (0.52-1.04) mg/dL Glucose (74-99) mg/dL POC Glucose (mg/dL) 170 H (70-110) mg/dL Microbiology - Last 24 Hours (Table) 12/22/24 02:29 Blood Culture - Final Blood Assessment and Plan Assessment: Attestation Attestation/ Barking Machine Feeder Note: Attestation to Progress Note, Participation (I saw and evaluated the patient with the Resident, and I reviewed and discussed the patient with the Resident and agree with the Resident's findings and plans as documented above., management reviewed and discussed), I agree with findings & plan, Provider Signature (MITCHEL ROUSE, TUYET Butler Time with Patient: Greater than 30
[2024-12-28 16:52] LABS: Glucose,Whole Blood 286 mg/dL (70-110)
[2024-12-28] MEDS: FLUCONAZOLE 100 MG TAB PO ONE (16:53)
[2024-12-28 20:04] LABS: Glucose,Whole Blood 295 mg/dL (70-110)
--- NOTE | 2024-12-28 22:16 | P.PN ---
Subjective Progress Note Date: 12/27/24 Principal diagnosis: Reason for follow-up is a positive blood culture Patient is a 74-year-old female with a past medical history significant for Asthma, Blood Disorder, Coronary Artery Disease (CAD), Chest Pain / Angina, Heart Failure, Diabetes Mellitus, Eye Disorder, GERD/Reflux, Hyperlipidemia, Hypertension, Myocardial Infarction (SD), Musculoskeletal Disorder, Osteoarthritis (OA), Renal Disease, Skin Disorder, Supraventricular Tachycardia (SVT), Thyroid Disorder who recently did have a right hip replacement, patient presented the hospital with increasing shortness of breath and cough did have a positive blood culture prompting this consultation. On today's evaluation that is 12/27/2024,the patient denies any fever or any chills, patient is breathing slightly comfortably however is requiring 50% FiO2 including partial nonrebreather and nasal cannula, patient denies any chest pain did have dry hacking cough some nausea but no vomiting no abdominal pain no diarrhea. Patient white count is 20.38 creatinine 0.99 Objective - Vital Signs Vital signs: Vital Signs Temp 98.0 F 12/27/24 16:00 Pulse 72 12/27/24 16:00 Resp 16 12/27/24 16:00 BP 132/65 12/27/24 16:00 Pulse Ox 94 L 12/27/24 16:00 FiO2 50 12/27/24 16:00 Intake & Output 12/26/24 12/27/24 12/27/24 18:59 06:59 18:59 Intake Total 800 540 Output Total 2190 1815 1190 Balance -1390 -1815 -650 Weight 89.6 kg Intake: Oral 800 540 Output: Urine 2190 1815 1190 Other: Voiding Method Indwelling Catheter Indwelling Catheter Indwelling Catheter - Exam GENERAL DESCRIPTION: An elderly female up in the bed in no distress RESPIRATORY SYSTEM: Unlabored breathing , decreased breath sounds at bases HEART: S1 S2 regular rate and rhythm , ABDOMEN: Soft , no tenderness EXTREMITIES: No edema feet - Labs CBC & Chem 7: 12/28/24 04:02 12/28/24 04:02 Labs: Abnormal Lab Results - Last 24 Hours (Table) 12/26/24 12/26/24 12/27/24 Range/Units 16:52 19:47 01:00 WBC (4.50-10.00) 10*3/uL RBC (4.10-5.20) 10*6/uL Hgb (12.0-15.0) g/dL Hct (37.2-46.3) % MCHC (32.0-37.0) g/dL Immature Gran # (0.00-0.04) 10*3/uL Neutrophils # (1.80-7.70) 10*3/uL Lymphocytes # (0.90-5.00) 10*3/uL Eosinophils # (0.04-0.35) 10*3/uL Chloride (98-107) mmol/L Carbon Dioxide (22-30) mmol/L BUN (7-17) mg/dL Glucose (74-99) mg/dL POC Glucose (mg/dL) 442 H 520 H* 268 H (70-110) mg/dL 12/27/24 12/27/24 12/27/24 Range/Units 05:29 05:29 06:52 WBC 20.38 H (4.50-10.00) 10*3/uL RBC 3.69 L (4.10-5.20) 10*6/uL Hgb 10.6 L (12.0-15.0) g/dL Hct 33.7 L (37.2-46.3) % MCHC 31.5 L (32.0-37.0) g/dL Immature Gran # 0.83 H (0.00-0.04) 10*3/uL Neutrophils # 18.35 H (1.80-7.70) 10*3/uL Lymphocytes # 0.60 L (0.90-5.00) 10*3/uL Eosinophils # 0.00 L (0.04-0.35) 10*3/uL Chloride 96 L (98-107) mmol/L Carbon Dioxide 33 H (22-30) mmol/L BUN 59 H (7-17) mg/dL Glucose 175 H (74-99) mg/dL POC Glucose (mg/dL) 192 H (70-110) mg/dL 12/27/24 12/27/24 Range/Units 11:06 16:25 WBC (4.50-10.00) 10*3/uL RBC (4.10-5.20) 10*6/uL Hgb (12.0-15.0) g/dL Hct (37.2-46.3) % MCHC (32.0-37.0) g/dL Immature Gran # (0.00-0.04) 10*3/uL Neutrophils # (1.80-7.70) 10*3/uL Lymphocytes # (0.90-5.00) 10*3/uL Eosinophils # (0.04-0.35) 10*3/uL Chloride (98-107) mmol/L Carbon Dioxide (22-30) mmol/L BUN (7-17) mg/dL Glucose (74-99) mg/dL POC Glucose (mg/dL) 233 H 246 H (70-110) mg/dL Microbiology - Last 24 Hours (Table) 12/22/24 02:29 Blood Culture - Final Blood Assessment and Plan (1) Positive blood culture Current Visit: Yes Status: Acute Code(s): R78.81 - BACTEREMIA SNOMED Code(s): 267069570 (2) Leukocytosis Current Visit: Yes Status: Acute Code(s): D72.829 - ELEVATED WHITE BLOOD CELL COUNT, UNSPECIFIED SNOMED Code(s): 679028577 Plan: 1patient with a positive blood culture with staph epi which is more likely skin contamination this patient who recently did have a right hip replacement however the right hip surgical site incision is currently healed with no cellulitis and the patient denies having any pain to the right hip area, no need for vancomycin however blood culture has been repeated 2patient presented hospital with increasing shortness of breath and did have a cough question of asthma exacerbation with tracheobronchitis chest x-ray was atypical pneumonia, patient did have a normal procalcitonin antibiotic has been discontinued 3patient white count is still elevated more likely steroid-related as the patient did have normal procalcitonin and no evidence of infection plus minus a component of oropharyngeal candidiasis the patient will be mostly right if the white count remains to be elevated may add Diflucan Dictation was produced using dooubation software. please excuse any grammatical, word or spelling errors. Time with Patient: Less than 30
--- NOTE | 2024-12-28 22:17 | P.PN ---
Subjective Progress Note Date: 12/28/24 Principal diagnosis: Reason for follow-up is a positive blood culture Patient is a 74-year-old female with a past medical history significant for Asthma, Blood Disorder, Coronary Artery Disease (CAD), Chest Pain / Angina, Heart Failure, Diabetes Mellitus, Eye Disorder, GERD/Reflux, Hyperlipidemia, Hypertension, Myocardial Infarction (DE), Musculoskeletal Disorder, Osteoarthritis (OA), Renal Disease, Skin Disorder, Supraventricular Tachycardia (SVT), Thyroid Disorder who recently did have a right hip replacement, patient presented the hospital with increasing shortness of breath and cough did have a positive blood culture prompting this consultation. On today's evaluation that is 12/28/2024,the patient remains to be afebrile, patient is down to 12 L nasal oxygen admission breathing slightly comfortably continue to complain of dry hacking cough some nausea but no vomiting no abdominal pain or diarrhea. Patient white count is 19.63, creatinine is 1.12 Objective - Vital Signs Vital signs: Vital Signs Temp 98.0 F 12/28/24 08:00 Pulse 82 12/28/24 12:48 Resp 17 12/28/24 10:00 BP 128/55 12/28/24 10:00 Pulse Ox 98 12/28/24 10:00 FiO2 50 12/28/24 08:31 Intake & Output 12/27/24 12/28/24 12/28/24 18:59 06:59 18:59 Intake Total 540 1000 500 Output Total 1355 920 650 Balance -815 80 -150 Weight 88.5 kg Intake: Oral 540 1000 500 Output: Urine 1355 920 650 Other: Voiding Method Indwelling Catheter Indwelling Catheter Indwelling Catheter # Bowel Movements 1 - Exam GENERAL DESCRIPTION: An elderly female up in the bed in no distress RESPIRATORY SYSTEM: Unlabored breathing , decreased breath sounds at bases HEART: S1 S2 regular rate and rhythm , ABDOMEN: Soft , no tenderness EXTREMITIES: No edema feet - Labs CBC & Chem 7: 12/28/24 04:02 12/28/24 04:02 Labs: Abnormal Lab Results - Last 24 Hours (Table) 12/27/24 12/27/24 12/28/24 Range/Units 16:25 20:11 02:00 WBC (4.50-10.00) 10*3/uL RBC (4.10-5.20) 10*6/uL Hgb (12.0-15.0) g/dL Hct (37.2-46.3) % Sodium (137-145) mmol/L Chloride (98-107) mmol/L Carbon Dioxide (22-30) mmol/L BUN (7-17) mg/dL Creatinine (0.52-1.04) mg/dL Glucose (74-99) mg/dL POC Glucose (mg/dL) 246 H 262 H 257 H (70-110) mg/dL 12/28/24 12/28/24 12/28/24 Range/Units 04:02 04:02 06:00 WBC 19.63 H (4.50-10.00) 10*3/uL RBC 3.59 L (4.10-5.20) 10*6/uL Hgb 10.4 L (12.0-15.0) g/dL Hct 32.3 L (37.2-46.3) % Sodium 134 L (137-145) mmol/L Chloride 94 L (98-107) mmol/L Carbon Dioxide 33 H (22-30) mmol/L BUN 66 H (7-17) mg/dL Creatinine 1.12 H (0.52-1.04) mg/dL Glucose 205 H (74-99) mg/dL POC Glucose (mg/dL) 170 H (70-110) mg/dL 12/28/24 Range/Units 11:35 WBC (4.50-10.00) 10*3/uL RBC (4.10-5.20) 10*6/uL Hgb (12.0-15.0) g/dL Hct (37.2-46.3) % Sodium (137-145) mmol/L Chloride (98-107) mmol/L Carbon Dioxide (22-30) mmol/L BUN (7-17) mg/dL Creatinine (0.52-1.04) mg/dL Glucose (74-99) mg/dL POC Glucose (mg/dL) 355 H (70-110) mg/dL Microbiology - Last 24 Hours (Table) 12/22/24 02:29 Blood Culture - Final Blood Assessment and Plan (1) Positive blood culture Current Visit: Yes Status: Acute Code(s): R78.81 - BACTEREMIA SNOMED Code(s): 813225461 (2) Leukocytosis Current Visit: Yes Status: Acute Code(s): D72.829 - ELEVATED WHITE BLOOD CELL COUNT, UNSPECIFIED SNOMED Code(s): 158212589 Plan: 1patient with a positive blood culture with staph epi which is more likely skin contamination this patient who recently did have a right hip replacement however the right hip surgical site incision is currently healed with no cellulitis and the patient denies having any pain to the right hip area, no need for vancomycin however blood culture has been repeated 2patient presented hospital with increasing shortness of breath and did have a cough question of asthma exacerbation with tracheobronchitis chest x-ray was atypical pneumonia, patient did have a normal procalcitonin antibiotic has been discontinued 3patient white count is still elevated more likely steroid-related as the patient did have normal procalcitonin and no evidence of infection plus minus a component of oropharyngeal candidiasis, with persistent elevated white count and high risk of oropharyngeal candidiasis/fungal infection will add Diflucan and see clinical response Dictation was produced using [employer] dictation software. please excuse any grammatical, word or spelling errors. Time with Patient: Less than 30
[2024-12-29 06:09] LABS: HCT 33.5 % (37.2-46.3); HGB 10.7 g/dL (12.0-15.0); MCH 28.9 pg (27.0-32.0); MCHC 31.9 g/dL (32.0-37.0); MCV 90.5 fL (80.0-97.0); Platelet Count 352 10*3/uL (140-440); RBC 3.70 10*6/uL (4.10-5.20); RDW 13.6 % (11.5-14.5); WBC 26.03 10*3/uL (4.50-10.00)
[2024-12-29 06:15] LABS: Glucose,Whole Blood 187 mg/dL (70-110)
[2024-12-29 06:21] LABS: African American GFR (CKD) 58 (>60 ml/min/1.73 sqM); Anion Gap 5 mmol/L; Blood Urea Nitrogen 63 mg/dL (7-17); Calcium 9.4 mg/dL (8.4-10.2); Carbon Dioxide 34 mmol/L (22-30); Chloride 97 mmol/L (98-107); Glucose 185 mg/dL (74-99); Magnesium 2.4 mg/dL (1.6-2.3); Non-African American GFR(CKD) 50 (>60 ml/min/1.73 sqM); Potassium 4.3 mmol/L (3.5-5.1); Sodium 136 mmol/L (137-145)
--- NOTE | 2024-12-29 08:02 | XR ---
EXAMINATION TYPE: XR chest 1V portable DATE OF EXAM: 12/29/2024 5:48 AM COMPARISON: 12/28/2024 CLINICAL INDICATION: Female, 74 years old with history of PNA, TECHNIQUE: XR chest 1V portable views of the chest are obtained. FINDINGS: Demonstrated are scattered senescent parenchymal change. Pulmonary venous congestion scattered infiltrates and cardiomegaly persists although improved since p rior study. Continued follow-up advised. Underlying pneumonia is not excluded particularly at the rig ht lung base. The heart is stable. Hilar and mediastinal structures are within normal limits. Degenerative changes are seen of the dorsal spine. IMPRESSION: 1. Pulmonary venous congestion scattered infiltrates and cardiomegaly persists although improved sin ce prior study. Continued follow-up advised. Underlying pneumonia is not excluded particularly at the right lung base. [facility], , 12/29/2024 8:00 AM
[2024-12-29] MEDS: FLUCONAZOLE 100 MG TAB PO SCH (09:52)
--- NOTE | 2024-12-29 12:11 | P.PN ---
Subjective Progress Note Date: 12/29/24 Patient is a 75-year-old female with past medical history significant for hypertension, hyperlipidemia, insulin-dependent diabetes mellitus, obesity, coronary artery disease with previous CABG, ischemic cardiomyopathy with an ejection fraction of 25 to 30% with AICD, asthma, and osteoarthritis. Of note, patient recently underwent right direct anterior total hip arthroplasty on 11/24/2024. She was discharged from the hospital to [facility] for rehabilitation. While at the outside facility, developed shortness of breath, coughing, and generalized weakness. States she was released from [facility] to home last Wednesday on November. Since then, she has fallen twice while at home. Brought in by EMS yesterday evening hypoxic and confused. She was placed on supplemental oxygen. Workup in the emergency department including a chest x-ray showing patchy bilateral lung infiltrates concerning for congestive heart failure or atypical pneumonias. CBC: WBC count 14.7, hemoglobin 9.5 g/dL, platelets 374. BMP: Sodium 132, potassium 4.4, chloride 100, serum bicarb 23, BUN 16, creatinine 0.92, glucose 124. Lactic 1.8. LFTs unremarkable. Troponin less than 0.012. NT proBNP 6.74. Viral 4 Plex negative for influenza A/B, RSV, COVID. Urinalysis unremarkable for UTI. Patient currently being evaluated on the general medical floor. She is alert and oriented x 3. Endorses above menti oned complaints. Does report history of asthma. Has had increased work of breathing over the last couple weeks. Suffering from persistent nonproductive cough over the same timeframe. States her symptoms actually started at [facility]. She has had a poor appetite with occasional nausea and vomiting. She has been able to take some of her home medications. Has had intermittent fevers with a Tmax of 100.8 F. Was started on empiric antibiotics in the ED, in the form azithromycin and Rocephin. Normal saline infusing at 50 mL/h. Denies any chest pain. Does endorse unilateral right lower lower extremity edema. No heart palpitations, syncopal events, hemoptysis. Current vital signs: Temperature 100.8 F, heart rate 95 bpm, blood pressure 124/54 mmHg, nontachypneic, SpO2 recorded at 96% on 3 L/min nasal cannula. The patient is seen today December 20, 2024 and follow-up on the regular medical floor. She is currently sitting up in bed. Awake and alert in no acute distress. Feeling a bit better today compared to yesterday. Maintaining O2 saturations in the 90s on 3 L/min per nasal cannula. Chest x-ray shows continued infiltrate of the right lung with improvement in the left lung. Blood culture is coming back positive. ID pending. White count 15.9. Hemoglobin 9.3. Platelets 371. Sodium 139. Potassium 4.2. Bicarb 27. BUN 16. Creatinine 1.01. Glucose 133. She remains on DuoNeb inhalations, IV Solu- Medrol, IV diuretics. Lovenox for DVT prophylaxis. Antibiotics in the form of ceftriaxone. The patient is seen today December 21, 2024 in follow-up on the regular medical floor. She is currently sitting up in a chair. Awake and alert in no acute distress. Maintaining O2 saturations in the 90s on 3 L/min per nasal cannula. She has been afebrile. Hemodynamically stable. Blood cultures showing staph epidermidis, most likely contaminant. White count 21.1. Hemoglobin 9.0. Platelets 409. Sodium 137. Potassium 4.5. Bicarb 30. BUN 29. Creatinine 1. 28. Glucose 172. proBNP 2180. She remains on DuoNeb inhalations, Solu-Medrol. Antibiotics in the form of ceftriaxone. Lovenox for DVT prophylaxis. Remains on IV diuretics. No accurate intake and output recorded. Chest x-ray showing similar findings with basilar infiltrates right greater than left. The patient is seen today December 22, 2024 in follow-up on the regular medical floor. She is sitting up at the bedside. Awake and alert in no acute distress. She has been slow to progress. She is still dyspneic with minimal exertion. Dyspneic with conversation. She is maintaining O2 saturations in the 90s on 7 L high flow nasal cannula. Echocardiogram reveals impaired left ventricular systolic function with an ejection fraction [address] scan of the chest revealed marked diffuse scattered groundglass opacities consistent with pulmonary edema, ARDS or pneumonia. AICD in place. Blood culture positive for Staphylococcus epidermidis. White count 17.9. Hemoglobin 9.4. Platelets 386. Sodium 136. Potassium 4.7. Bicarb 28. BUN 37. Creatinine 1.06. Glucose 176. She remains on DuoNeb inhalations, Solu-Medrol. Remains on oral diuretics. Antibiotics in the form of ceftriaxone. Heparin for DVT prophylaxis. The patient is seen today December 23, 2024 in follow-up on the regular medical floor. She is currently resting in bed. Awake and alert in no acute distress. Feeling a bit better today compared to yesterday. She is maintaining O2 saturations in the 90s on 6 L high flow nasal cannula. She remains afebrile. Hemodynamically stable. Initial blood cultures showing staph epidermidis. Follow-up blood culture reveals no growth. White count 17.6. Hemoglobin 9.2. Platelets 381. Sodium 138. Potassium 4.4. Bicarb 28. BUN 45. Creatinine 1.11. Glucose 115. Arterial blood gases on 44% FiO2 revealed a PO2 of 50, [id number] and a pH of 7.42. She remains on DuoNeb inhalations, Solu-Medrol and Robitussin as needed. Heparin for DVT prophylaxis. She remains on Lasix 40 mg every 12 hours. No accurate intake and output recorded. The patient is seen today December 24, 2024 in follow-up on the regular medical floor. She is awake and alert in no acute distress. Resting in bed. No worsening shortness of breath, cough or congestion. She is still requiring 10 L high flow nasal cannula to maintain O2 saturations in the 90s. Lung sounds improved. Blood cultures were positive for Staphylococcus epidermidis. Most likely a contaminant. Follow-up blood culture revealed no growth. Glucose 233. She remains on DuoNeb inhalations, Symbicort, Solu-Medrol. She remains on IV Lasix. Heparin for DVT prophylaxis. Currently in a -1.9 L balance. The patient is seen today December 25, 2024 in follow-up in the intensive care unit. She was transferred down here last evening after having issues with worsening hypoxemia. She is currently on Airvo high flow oxygen at 50 L and 50% FiO2. She is afebrile. Hemodynamically stable. Chest x-ray continues to show cardiomegaly with pulmonary vascular congestion and bilateral pleural effusions. Follow-up blood culture revealed no growth. White count 17.9. Hemoglobin 9.7. Platelets 350. Sodium 137. Potassium 4.8. Bicarb 31. BUN 49. Creatinine 1.16. Glucose 224. She remains on DuoNeb inhalations, Symbicort, Solu-Medrol. Heparin for DVT prophylaxis. She remains on Lasix 40 mg IV every 12 hours. C urrently in a -4 L balance. The patient is seen today December 26, 2024 in follow-up in the intensive care unit. She is currently sitting up in bed. Awake and alert in no acute distress. Feeling a bit better today compared to yesterday. She is still high flow oxygen at 50 L and 60% FiO2. No IV fluids. She has been afebrile. Hemodynamically stable. Chest x-ray continues to show diffuse infiltrates bilaterally right greater than left. Follow-up blood culture reveals no growth. White count 1 9.5. Hemoglobin 10.0. Platelets 359. Sodium 137. Potassium 4.2. Bicarb 33. BUN 54. Creatinine 1.07. Glucose 280. Continued on Lasix 40 mg IV every 12 hours. Currently net -3.3 L balance. She remains on DuoNeb and elations, Symbicort, Solu-Medrol. Robitussin for her cough. The patient is seen today December 28, 2024 in follow-up in the intensive care unit. She is awake and alert in no acute distress. Sitting up in bed. Remains on Airvo high flow oxygen at 50 L and 50% FiO2. No IV fluids. Chest x-ray is showing fluid volume overload but improving. Initial blood culture positive for staph epidermidis. Follow-up blood culture revealed no growth. White count 19.6. Hemoglobin 10.4. Platelets 352. Sodium 134. Potassium 4.0. Bicarb 33. BUN 66. Creatinine 1.12. Glucose 205. She is continued on DuoNeb inhalations, Symbicort, Solu-Medrol. Heparin for DVT prophylaxis. She remains on Lasix 40 mg IV every 12 hours. Currently in a -700 mL balance. The patient is seen today December 29, 2024 in follow-up in the intensive care unit. She is currently sitting up in bed. Awake and alert in no acute distress. Deny any worsening shortness of breath, cough or congestion. Feeling better. She is now on 8 L high flow nasal cannula. Chest x-ray continues to show improvement. White count 26.0. Hemoglobin 10.7. Platelets 352. Sodium 136. Potassium 4.3. Bicarb 34. BUN 63. Creatinine 1.11. Glucose 185. She remains on DuoNeb inhalations, Symbicort, Solu-Medrol. Heparin for DVT prophylaxis. Continued on Lasix 40 mg every 12 hours. Currently in a -700 mL balance. Objective - Vital Signs Vital signs: Vital Signs Temp 98.6 F 12/29/24 08:00 Pulse 65 12/29/24 11:00 Resp 14 12/29/24 11:00 BP 161/79 12/29/24 11:00 Pulse Ox 99 12/29/24 11:00 FiO2 50 12/28/24 08:31 Intake & Output 12/28/24 12/29/24 12/29/24 18:59 06:59 18:59 Intake Total 1300 1000 600 Output Total 1275 1700 335 Balance 25 -700 265 Weight 90.7 kg Intake: Oral 1300 1000 600 Output: Urine 1275 1700 335 Other: Voiding Method Indwelling Catheter Indwelling Catheter - Exam GENERAL EXAM: Alert, 74-year-old female, on 8 L high flow, in no acute distress. HEAD: Normocephalic and atraumatic EYES: Normal reaction of pupils, equal size. NOSE: Clear with pink turbinates. THROAT: No erythema or exudates. NECK: No masses, no JVD. CHEST: No chest wall deformity. Left chest implanted device. LUNGS: Equal air entry crackles in the posterior bases right greater than left. CVS: S1 and S2 normal with no audible murmur, regular rhythm. No extra heart sounds ABDOMEN: No hepatosplenomegaly, active bowel sounds, no guarding or rigidity. SPINE: No scoliosis or deformity SKIN: No rashes CENTRAL NERVOUS SYSTEM: No focal deficits, tone is normal in all 4 extremities. EXTREMITIES: Right anterior hip incision is approximated, pink, without dehiscence or drainage. Full range of motion. Right lower extremity pitting edema. Peripheral pulses are intact. - Labs CBC & Chem 7: 12/29/24 05:53 12/29/24 05:53 Labs: Abnormal Lab Results - Last 24 Hours (Table) 12/28/24 12/28/24 12/29/24 Range/Units 16:51 20:03 05:53 WBC (4.50-10.00) 10*3/uL RBC (4.10-5.20) 10*6/uL Hgb (12.0-15.0) g/dL Hct (37.2-46.3) % MCHC (32.0-37.0) g/dL Sodium 136 L (137-145) mmol/L Chloride 97 L (98-107) mmol/L Carbon Dioxide 34 H (22-30) mmol/L BUN 63 H (7-17) mg/dL Creatinine 1.11 H (0.52-1.04) mg/dL Glucose 185 H (74-99) mg/dL POC Glucose (mg/dL) 286 H 295 H (70-110) mg/dL Magnesium 2.4 H (1.6-2.3) mg/dL 12/29/24 12/29/24 Range/Units 05:53 06:14 WBC 26.03 H (4.50-10.00) 10*3/uL RBC 3.70 L (4.10-5.20) 10*6/uL Hgb 10.7 L (12.0-15.0) g/dL Hct 33.5 L (37.2-46.3) % MCHC 31.9 L (32.0-37.0) g/dL Sodium (137-145) mmol/L Chloride (98-107) mmol/L Carbon Dioxide (22-30) mmol/L BUN (7-17) mg/dL Creatinine (0.52-1.04) mg/dL Glucose (74-99) mg/dL POC Glucose (mg/dL) 187 H (70-110) mg/dL Magnesium (1.6-2.3) mg/dL Assessment and Plan Assessment: Healthcare associated pneumonia, bilateral. CT scan of the chest reveals marked diffuse scattered groundglass opacities consistent with pulmonary edema, ARDS or pneumonia. Moderate cardiomegaly. Procalcitonin negative x 2 Acute asthma exacerbation Acute hypoxemic respiratory failure, currently on Airvo high flow oxygen at 50 L and 50% FiO2, secondary to above. Chest x-ray remarkable for cardiomegaly, possible pulmonary vascular congestion, patchy bilateral lower lung infiltrates. Prior sternotomy wires. AICD generator and leads. Concerning for atypical pneumonia or congestive heart failure. BNP 1950 Acute febrile illness, recovered Acute leukocytosis, improving History of right direct anterior total hip arthroplasty on November 24 Acute blood loss anemia, expected outcome of surgery Hypertension History of hyperlipidemia Insulin-dependent diabetes mellitus Obesity with a BMI of 35.4 kg/m Coronary artery disease, with history of CABG and cardiac stents History of ischemic cardiomyopathy with an ejection fraction improved to 40 to 45% Implanted AICD/pacemaker Hypothyroidism Anxiety/depression Plan: The patient was seen and evaluated Chest x-ray, labs and medications reviewed Currently on 8 L high flow nasal cannula Continue Solu-Medrol Continue Lasix Continue DuoNeb inhalations Continue Symbicort Continue Robitussin Heparin for DVT prophylaxis Titrate down the FiO2 as tolerated Increase her activity as tolerated We will continue to follow I have personally seen and examined the patient, performed the documentation and the assessment and plan as written. Number of minutes spent on the visit: 10 Dictation was produced using [employer] dictation software. Please excuse any grammatical, word or spelling errors.
[2024-12-29 13:27] LABS: Glucose,Whole Blood 338 mg/dL (70-110)
--- NOTE | 2024-12-29 15:05 | P.PN ---
Subjective Progress Note Date: 12/29/24 Principal diagnosis: Reason for follow-up is a positive blood culture Patient is a 74-year-old female with a past medical history significant for Asthma, Blood Disorder, Coronary Artery Disease (CAD), Chest Pain / Angina, Heart Failure, Diabetes Mellitus, Eye Disorder, GERD/Reflux, Hyperlipidemia, Hypertension, Myocardial Infarction ([place]), Musculoskeletal Disorder, Osteoarthritis (OA), Renal Disease, Skin Disorder, Supraventricular Tachycardia (SVT), Thyroid Disorder who recently did have a right hip replacement, patient presented the hospital with increasing shortness of breath and cough did have a positive blood culture prompting this consultation. On today's evaluation that is 12/29/2024, the patient continues to be afebrile, the patient is down to 8 L nasal oxygen and mention breathing slightly comfortably, the Pt denies having any chest pain, continue to have a dry cough, the patient denies having any abdominal pain no vomiting or any diarrhea complai lola of some sore throat but denies any difficulty swallowing. Patient white count is up to 26.03, creatinine is 1.11 chest x-ray this morning pulmonary vascular congestion slightly improved from previous study and there was concern for possible pneumonia in the right lung base Objective - Vital Signs Vital signs: Vital Signs Temp 98.2 F 12/29/24 12:00 Pulse 75 12/29/24 14:00 Resp 27 H 12/29/24 14:00 BP 156/82 12/29/24 14:00 Pulse Ox 96 12/29/24 13:00 FiO2 50 12/28/24 08:31 Intake & Output 12/28/24 12/29/24 12/29/24 18:59 06:59 18:59 Intake Total 1300 1000 800 Output Total 1275 1700 1235 Balance 70 -866 -251 Weight 90.7 kg Intake: Oral 1300 1000 800 Output: Urine 1275 1700 1235 Other: Voiding Method Indwelling Catheter Indwelling Catheter Indwelling Catheter - Exam GENERAL DESCRIPTION: An elderly female up in the bed in no distress RESPIRATORY SYSTEM: Unlabored breathing , decreased breath sounds at bases HEART: S1 S2 regular rate and rhythm , ABDOMEN: Soft , no tenderness EXTREMITIES: No edema feet - Labs CBC & Chem 7: 12/29/24 05:53 12/29/24 05:53 Labs: Abnormal Lab Results - Last 24 Hours (Table) 12/28/24 12/28/24 12/29/24 Range/Units 16:51 20:03 05:53 WBC (4.50-10.00) 10*3/uL RBC (4.10-5.20) 10*6/uL Hgb (12.0-15.0) g/dL Hct (37.2-46.3) % MCHC (32.0-37.0) g/dL Sodium 136 L (137-145) mmol/L Chloride 97 L (98-107) mmol/L Carbon Dioxide 34 H (22-30) mmol/L BUN 63 H (7-17) mg/dL Creatinine 1.11 H (0.52-1.04) mg/dL Glucose 185 H (74-99) mg/dL POC Glucose (mg/dL) 286 H 295 H (70-110) mg/dL Magnesium 2.4 H (1.6-2.3) mg/dL 12/29/24 12/29/24 12/29/24 Range/Units 05:53 06:14 13:26 WBC 26.03 H (4.50-10.00) 10*3/uL RBC 3.70 L (4.10-5.20) 10*6/uL Hgb 10.7 L (12.0-15.0) g/dL Hct 33.5 L (37.2-46.3) % MCHC 31.9 L (32.0-37.0) g/dL Sodium (137-145) mmol/L Chloride (98-107) mmol/L Carbon Dioxide (22-30) mmol/L BUN (7-17) mg/dL Creatinine (0.52-1.04) mg/dL Glucose (74-99) mg/dL POC Glucose (mg/dL) 187 H 338 H (70-110) mg/dL Magnesium (1.6-2.3) mg/dL Assessment and Plan (1) Positive blood culture Current Visit: Yes Status: Acute Code(s): R78.81 - BACTEREMIA SNOMED Code(s): 715422333 (2) Leukocytosis Current Visit: Yes Status: Acute Code(s): D72.829 - ELEVATED WHITE BLOOD CELL COUNT, UNSPECIFIED SNOMED Code(s): 545755304 Plan: 1patient with a positive blood culture with staph epi which is more likely skin contamination this patient who recently did have a right hip replacement however the right hip surgical site incision is currently healed with no cellulitis and the patient denies having any pain to the right hip area, no need for vancomycin however blood culture has been repeated 2patient presented hospital with increasing shortness of breath and did have a cough question of asthma exacerbation with tracheobronchitis chest x-ray was atypical pneumonia, patient did have a normal procalcitonin antibiotic has been discontinued 3patient white count is still elevated more likely steroid-related she did have some sore throat Diflucan was added with no significant improvement the white count chest x-ray completed 12/29/2024 concerning for possible right right lower lobe pneumonia we will repeat Pro-Fortino's with a.m. lab and monitor clinical course closely Dictation was produced using [employer] dictation software. please excuse any grammatical, word or spelling errors. Time with Patient: Less than 30
--- NOTE | 2024-12-29 15:20 | P.PN ---
Subjective Progress Note Date: 12/29/24 Patient is a 74-year-old female with hypertension, hyperlipidemia, DM (insulin- dependent), obesity, CAD status post CABG, ischemic cardiomyopathy (EF 25 to 30% with AICD), asthma, and osteoarthritis here for evaluation of a fall with generalized weakness. Patient reported that she developed shortness of breath, dry cough, chills, bilateral extremity swelling and generalized weakness when she was discharged from rehab on 12/09 from [facility]. She recently had a right direct anterior total hip arthroplasty on 11/24/2024. Since then she has fallen twice at home due to missed steps. She reported that her swelling has improved gradually over the past 2 weeks. On arrival to the ED, she also reported to have altered mental status. She denied chest pain, palpitations, nausea, vomiting, abdominal pain, extremity swelling, focal weakness, recent prolonged travel. On admission: Vitals: Temp 99 Fahrenheit, [place] 99, RR 16, BP 114/60, O2 saturation 89% on room air Labs: WBC 17.4, hemoglobin 9.5, sodium 132, potassium 4.4, bicarb 23, BUN 16, creatinine 0.9, glucose 124, lactic acid 1.8, calcium 8.8, phosphorus 2.4, magnesium 1.7, TSH 6.7. Liver enzymes within normal ranges. Troponin negative. proBNP 3700. Urinalysis unremarkable. Cepheid 4 Plex negative. Urine Legionella antigen negative. Imaging: Chest x-ray showed cardiomegaly with prominent pulmonary vasculature and patchy bilateral lung infiltrates. Hip pelvis x-ray showed no acute osseous abnormalities. EKG showed V paced at a rate of 87, no ST-T changes, QTc 446 MS. 12/20/2024 patient seen and examined at bedside. No acute events overnight. Still requiring oxygen support with 2 to 3 L of nasal cannula. Patient has no symptoms or complaints. Labs: WBC 15.9, hemoglobin 9.3, MCV 93.6, platelet count 371,000, sodium 139, potassium 4.2, bicarb 27, BUN 16, creatinine 1.01, glucose 133, calcium 9.1, Pro-Fortino 0.22. Blood cultures positive for staph mecA/C positive. Imaging; chest x-ray independently interpreted showing improving pulmonary infiltrates 12/21/2024 patient seen and examined at bedside. No acute events overnight. Patient still requiring 2-3L oxygen. Labs: WBC 21.16, hemoglobin 9, MCV 92.9, platelet count 408,000, sodium 137, potassium 4.5, bicarb 30, BUN 29, creatinine 1.28, glucose 172, calcium 9.3, BNP 2180. Blood cultures positive for Staphylococcus epidermidis MEC A positive. Repeat CXR shows minimal improvement 12/22/2024 patient seen and examined at bedside. No acute events overnight. Patient still requiring 3 to 4 L oxygen via nasal cannula Labs: WBC 7.29, hemoglobin 9.4, platelet count 386,000, sodium 136, potassium 4.7, bicarb 28, BUN 37, creatinine 1.06, glucose 176, calcium 8.8 Imaging; echocardiogram showed LVEF 40 to 45% with moderate global hypokinesis, mild mitral and tricuspid regurgitation 12/23/2024 patient seen and examined at bedside. No acute events overnight. Patient oxygen requirements are increasing from 5 to 6 L high flow nasal cannula. Still having dry cough. Labs: WBC 7 point 0.6, hemoglobin 9.2, MCV 93, platelet count 381,000, sodium 130, potassium 4.4, chloride 102, bicarb 28, BUN 45, creatinine 1.11, glucose 96, calcium 9.1. ABG showed PO2 50 pH 7.42 and pCO2 45 Imaging; chest CT shows marked diffuse scattered groundglass opacities consisten t with pulmonary edema, ARDS or pneumonia, moderate cardiomegaly, 3.4 cm dilation of the main pulmonary artery 12/24/2024 Patient evaluated in follow-up on the medical floor. Patient remains on oxygen support increased up to 10 L high flow cannula with saturations of 90%. patient is currently on a course of IV Solu-Medrol as well as IV Lasix twice daily. She has completed a course of antibiotics. She is also maintained on a fluid restriction. ID and pulmonology are following this patient closely. Blood culture finalized revealing Staphylococcus epidermidis which is felt to be contaminant species 12/25/2024 patient seen and examined at bedside. Patient in the ICU. Requiring high flow nasal cannula rate of 50 FiO2 55% Labs: WBC 17.9, hemoglobin 9.7, MCV 90.8, platelet count 250,000 sodium 137, potassium 4.8, bicarb 31, creatinine, BUN 49, creatinine 1.16, glucose 224, mag 2.2, calcium 9.1. ABG pH 7.46, pCO2 43, bicarb 66 Imaging; chest x-ray showed so far persistent diffuse increased lung markings present 12/26/2024 patient seen and examined at bedside. Still requiring high flow nasal cannula rate of 50 FiO2 60% Labs: WBC 19.5, hemoglobin 10, chloride 97, bicarb 33, potassium 4.2, sodium 137, creatinine 1.07, BUN 54, glucose 280, calcium 9.3, proBNP 1950, Pro-Fortino less than 0.2 Imaging: Chest x-ray showed stable diffuse interstitial infiltrates 12/27/2024 patient seen and examined at bedside. No acute events overnight. Still in the ICU. Still having dry cough. High flow nasal cannula for O2 support flow rate 50 FiO2 60% Labs: WBC 20.3, hemoglobin 10.6, platelet count 370,000, sodium 139, potassium 4.6, bicarb 33, BUN 59, creatinine 0.99, glucose 175, calcium 9.8 Imaging: Chest x-ray today showed stable pulmonary infiltrates 12/28/2024 patient seen and examined at bedside. No acute events overnight. Still requiring high flow nasal cannula rate 50 at 50% FiO2 Labs: WBC 19.6, hemoglobin 10.4, sodium 134, potassium 4, bicarb 33, BUN 66, creatinine 1.12, glucose 205, magnesium 2.3 Imaging: Chest x-ray shows stable diffuse interstitial infiltrates 12/29/2024 patient seen and examined at bedside. No acute events overnight. No fevers or chills. O2 requirements decreasing. Labs: WBC 26.03, hemoglobin 10.7, sodium 136, bicarb 34, BUN 63, creatinine 1.11, glucose 185, magnesium 2.4 Imaging: Chest x-ray shows improving diffuse pulmonary infiltrates Review of systems: Pertinent positives and negatives as discussed in HPI, a complete review of systems was performed and all other systems are negative. Physical examination: Vital signs reviewed General: non toxic, no distress, appears at stated age, on nasal cannula Derm: no unusual rashes/lesions, warm Head: atraumatic, normocephalic, symmetric Eyes: EOMI, anicteric sclera, pupils equal round reactive to light ENT: Nose and ears atraumatic Neck: No cervical lymphadenopathy, trachea midline, supple Mouth: no lip lesion, mucus membranes moist Cardiovascular: S1S2 reg, no murmur Lungs: CTA bilateral, no rales, no accessory muscle use Abdominal: soft, nondistended, nontender to palpation, no guarding Ext: muscle strength 5 out of 5 in all 4 extremities grossly, no gross muscle atrophy, no contractures, positive dorsalis pedis pulse bilateral, no edema Neuro: CN II-XI grossly intact, no gross focal neuro deficits Psych: Alert and oriented x 3, appropriate affect and mood Assessment/Plan: The patient is admitted with an anticipated greater than 2 midnight stay for evaluation of acute respiratory failure due to HFrEF exacerbation with concern for ARDS Active: #. Acute hypoxic respiratory failure, HFrEF exacerbation vs ARDS vs CAP #. Asthma exacerbation #. Ischemic cardiomyopathy (EF 40-45% with AICD) #. Leukocytosis, likley steroid induced, r/o other causes -No episodes of fevers overnight. WBC jumped to 26 today. -Supportive oxygen as needed. Wean off as tolerated. -Chest CT showed diffuse scattered groundglass opacities concerning for pneumonia or ARDS - Completed course of Abx Zithromax p.o and Rocephin IVPB on 12/22 -On Solu-Medrol IV -Placed on Duoneb and Symbicort inhalers -Lasix IV by pulmonolgy -Daily weights, Strict InOs, Fluid restriction 1800 -Blood cultures positive for staph mecA/C positive. Likely contaminant. -Repeat blood cultures negative -Monitor CBC and renal fuction -Pulmonology consulted by ED -ID consulted #. Acute Kidney Injury, prerenal - Cr 1.11 today -Monitor UO -Avoid nephrotoxic agents #. Mechanical Fall secondary to above #. Recent Right anterior total hip arthroplasty Hip pelvis x-ray showed no acute osseous abnormalities. Ortho consulted by ED. No intervention recommended at this time Continue with PO norco prn #. Normocytic anemia at baseline Hemoglobin 10.7 Monitor CBC. Transfuse if Hgb <7. Chronic Conditions: #. Diabetes mellitus, on insulin pump -Hemoglobin A1c 7.3 in November 2024 -Hold home insulin pump as she has run out of home insulin -Glucose Accu-Cheks ACHS -Insulin lispro 15 units AC-TID -Glarigine 25 units BID -Initiate Insulin basal rates every 6 hours as needed -Monitor for hypoglycemia #. Hypertension #. Hyperlipidemia #. Obesity #. CAD status post CABG #. Osteoarthritis Resume home aspirin, bupropion 150, buspirone 10 mg, carvedilol 12.5 mg, clopidogrel 75 mg, dapagliflozin 10 mg, ezetimibe 10 mg, fluvoxamine 100 mg, furosemide 20 mg gabapentin 300 mg, Synthroid 125 mcg, rosuvastatin 40 mg, Entresto, trazodone 50 mg DVT ppx: Heparin subq GI prophylaxis: Pantoprazole 40 mg IVP twice daily CODE STATUS: Full Discussed with: Patient Anticipated discharge place: Home Zoila Walsh MD PGY-1/[facility] Dictation was produced using [employer] dictation software. please excuse any grammatical, word or spelling errors. Objective - Vital Signs Vital signs: Vital Signs Temp 98.2 F 12/29/24 04:00 Pulse 66 12/29/24 08:01 Resp 14 12/29/24 07:00 BP 136/102 12/29/24 07:00 Pulse Ox 94 L 12/29/24 07:46 FiO2 50 12/28/24 08:31 Intake & Output 12/28/24 12/29/24 12/29/24 18:59 06:59 18:59 Intake Total 1300 1000 Output Total 1275 1700 60 Balance 25 -700 -60 Weight 90.7 kg Intake: Oral 1300 1000 Output: Urine 1275 1700 60 Other: Voiding Method Indwelling Catheter Indwelling Catheter - Labs CBC & Chem 7: 01/11/25 06:23 01/11/25 06:23 Labs: Abnormal Lab Results - Last 24 Hours (Table) 12/28/24 12/28/24 12/28/24 Range/Units 11:35 16:51 20:03 WBC (4.50-10.00) 10*3/uL RBC (4.10-5.20) 10*6/uL Hgb (12.0-15.0) g/dL Hct (37.2-46.3) % MCHC (32.0-37.0) g/dL Sodium (137-145) mmol/L Chloride (98-107) mmol/L Carbon Dioxide (22-30) mmol/L BUN (7-17) mg/dL Creatinine (0.52-1.04) mg/dL Glucose (74-99) mg/dL POC Glucose (mg/dL) 355 H 286 H 295 H (70-110) mg/dL Magnesium (1.6-2.3) mg/dL 12/29/24 12/29/24 12/29/24 Range/Units 05:53 05:53 06:14 WBC 26.03 H (4.50-10.00) 10*3/uL RBC 3.70 L (4.10-5.20) 10*6/uL Hgb 10.7 L (12.0-15.0) g/dL Hct 33.5 L (37.2-46.3) % MCHC 31.9 L (32.0-37.0) g/dL Sodium 136 L (137-145) mmol/L Chloride 97 L (98-107) mmol/L Carbon Dioxide 34 H (22-30) mmol/L BUN 63 H (7-17) mg/dL Creatinine 1.11 H (0.52-1.04) mg/dL Glucose 185 H (74-99) mg/dL POC Glucose (mg/dL) 187 H (70-110) mg/dL Magnesium 2.4 H (1.6-2.3) mg/dL Assessment and Plan Assessment: Attestation Attestation/ Director Of Field Service Note: Attestation to Progress Note, Participation (I saw and evaluated the patient with the Resident, and I reviewed and discussed the patient with the Resident and agree with the Resident's findings and plans as documented above., management reviewed and discussed), I agree with findings & plan, Provider Signature (MITCHEL ROUSE, TUYET Butler Time with Patient: Greater than 30
[2024-12-29 16:35] LABS: Glucose,Whole Blood 248 mg/dL (70-110)
[2024-12-29] MEDS: methylPREDNISolone SOD SUCCI 40 MG/ML 1 ML VIAL IV SCH (17:20)
[2024-12-29 19:57] LABS: Glucose,Whole Blood 347 mg/dL (70-110)
[2024-12-29 20:43] LABS: Glucose,Whole Blood 301 mg/dL (70-110)
[2024-12-30 01:52] LABS: Glucose,Whole Blood 238 mg/dL (70-110)
[2024-12-30 07:08] LABS: Glucose,Whole Blood 189 mg/dL (70-110)
[2024-12-30 07:29] LABS: African American GFR (CKD) 50 (>60 ml/min/1.73 sqM); Anion Gap 6 mmol/L; Blood Urea Nitrogen 65 mg/dL (7-17); Calcium 9.4 mg/dL (8.4-10.2); Carbon Dioxide 32 mmol/L (22-30); Chloride 98 mmol/L (98-107); Glucose 186 mg/dL (74-99); Non-African American GFR(CKD) 44 (>60 ml/min/1.73 sqM); Potassium 4.7 mmol/L (3.5-5.1); Sodium 136 mmol/L (137-145)
[2024-12-30] MEDS ORDERED: DEXTROSE 50% SYRINGE 50 ML IVP PRN (11:47)
--- NOTE | 2024-12-30 11:51 | P.PN ---
Subjective Progress Note Date: 12/30/24 Patient is a 74-year-old female with hypertension, hyperlipidemia, DM (insulin- dependent), obesity, CAD status post CABG, ischemic cardiomyopathy (EF 25 to 30% with AICD), asthma, and osteoarthritis here for evaluation of a fall with generalized weakness. Patient reported that she developed shortness of breath, dry cough, chills, bilateral extremity swelling and generalized weakness when she was discharged from rehab on 12/09 from [facility]. She recently had a right direct anterior total hip arthroplasty on 11/24/2024. Since then she has fallen twice at home due to missed steps. She reported that her swelling has improved gradually over the past 2 weeks. On arrival to the ED, she also reported to have altered mental status. She denied chest pain, palpitations, nausea, vomiting, abdominal pain, extremity swelling, focal weakness, recent prolonged travel. On admission: Vitals: Temp 99 Fahrenheit, IA 99, RR 16, BP 114/60, O2 saturation 89% on room air Labs: WBC 17.4, hemoglobin 9.5, sodium 132, potassium 4.4, bicarb 23, BUN 16, creatinine 0.9, glucose 124, lactic acid 1.8, calcium 8.8, phosphorus 2.4, magnesium 1.7, TSH 6.7. Liver enzymes within normal ranges. Troponin negative. proBNP 3700. Urinalysis unremarkable. Cepheid 4 Plex negative. Urine Legionella antigen negative. Imaging: Chest x-ray showed cardiomegaly with prominent pulmonary vasculature and patchy bilateral lung infiltrates. Hip pelvis x-ray showed no acute osseous abnormalities. EKG showed V paced at a rate of 87, no ST-T changes, QTc 446 MS. 12/20/2024 patient seen and examined at bedside. No acute events overnight. Still requiring oxygen support with 2 to 3 L of nasal cannula. Patient has no symptoms or complaints. Labs: WBC 15.9, hemoglobin 9.3, MCV 93.6, platelet count 371,000, sodium 139, potassium 4.2, bicarb 27, BUN 16, creatinine 1.01, glucose 133, calcium 9.1, Pro-Fortino 0.22. Blood cultures positive for staph mecA/C positive. Imaging; chest x-ray independently interpreted showing improving pulmonary infiltrates 12/21/2024 patient seen and examined at bedside. No acute events overnight. Patient still requiring 2-3L oxygen. Labs: WBC 21.16, hemoglobin 9, MCV 92.9, platelet count 408,000, sodium 137, potassium 4.5, bicarb 30, BUN 29, creatinine 1.28, glucose 172, calcium 9.3, BNP 2180. Blood cultures positive for Staphylococcus epidermidis MEC A positive. Repeat CXR shows minimal improvement 12/22/2024 patient seen and examined at bedside. No acute events overnight. Patient still requiring 3 to 4 L oxygen via nasal cannula Labs: WBC 7.29, hemoglobin 9.4, platelet count 386,000, sodium 136, potassium 4.7, bicarb 28, BUN 37, creatinine 1.06, glucose 176, calcium 8.8 Imaging; echocardiogram showed LVEF 40 to 45% with moderate global hypokinesis, mild mitral and tricuspid regurgitation 12/23/2024 patient seen and examined at bedside. No acute events overnight. Patient oxygen requirements are increasing from 5 to 6 L high flow nasal cannula. Still having dry cough. Labs: WBC 7 point 0.6, hemoglobin 9.2, MCV 93, platelet count 381,000, sodium 130, potassium 4.4, chloride 102, bicarb 28, BUN 45, creatinine 1.11, glucose 96, calcium 9.1. ABG showed PO2 50 pH 7.42 and pCO2 45 Imaging; chest CT shows marked diffuse scattered groundglass opacities consisten t with pulmonary edema, ARDS or pneumonia, moderate cardiomegaly, 3.4 cm dilation of the main pulmonary artery 12/24/2024 Patient evaluated in follow-up on the medical floor. Patient remains on oxygen support increased up to 10 L high flow cannula with saturations of 90%. patient is currently on a course of IV Solu-Medrol as well as IV Lasix twice daily. She has completed a course of antibiotics. She is also maintained on a fluid restriction. ID and pulmonology are following this patient closely. Blood culture finalized revealing Staphylococcus epidermidis which is felt to be contaminant species 12/25/2024 patient seen and examined at bedside. Patient in the ICU. Requiring high flow nasal cannula rate of 50 FiO2 55% Labs: WBC 17.9, hemoglobin 9.7, MCV 90.8, platelet count 250,000 sodium 137, potassium 4.8, bicarb 31, creatinine, BUN 49, creatinine 1.16, glucose 224, mag 2.2, calcium 9.1. ABG pH 7.46, pCO2 43, bicarb 66 Imaging; chest x-ray showed so far persistent diffuse increased lung markings present 12/26/2024 patient seen and examined at bedside. Still requiring high flow nasal cannula rate of 50 FiO2 60% Labs: WBC 19.5, hemoglobin 10, chloride 97, bicarb 33, potassium 4.2, sodium 137, creatinine 1.07, BUN 54, glucose 280, calcium 9.3, proBNP 1950, Pro-Fortino less than 0.2 Imaging: Chest x-ray showed stable diffuse interstitial infiltrates 12/27/2024 patient seen and examined at bedside. No acute events overnight. Still in the ICU. Still having dry cough. High flow nasal cannula for O2 support flow rate 50 FiO2 60% Labs: WBC 20.3, hemoglobin 10.6, platelet count 370,000, sodium 139, potassium 4.6, bicarb 33, BUN 59, creatinine 0.99, glucose 175, calcium 9.8 Imaging: Chest x-ray today showed stable pulmonary infiltrates 12/28/2024 patient seen and examined at bedside. No acute events overnight. Still in the ICU. Still requiring high flow nasal cannula rate 50 at 50% FiO2 Labs: WBC 19.6, hemoglobin 10.4, sodium 134, potassium 4, bicarb 33, BUN 66, c reatinine 1.12, glucose 205, magnesium 2.3 Imaging: Chest x-ray shows stable diffuse interstitial infiltrates 12/29/2024 patient seen and examined at bedside. No acute events overnight. Still in the ICU. No fevers or chills. O2 requirements decreasing. Labs: WBC 26.03, hemoglobin 10.7, sodium 136, bicarb 34, BUN 63, creatinine 1.11, glucose 185, magnesium 2.4 Imaging: Chest x-ray shows improving diffuse pulmonary infiltrates 12/30/2024 patient seen and examined at bedside. No acute events overnight. Downgraded to stepdown unit Currently on high flow nasal cannula 9 L which has improved. Labs: Sodium 136, potassium 4.7, bicarb 23, BUN 65, creatinine 1.2, glucose 186, calcium 9.4 Review of systems: Pertinent positives and negatives as discussed in HPI, a complete review of systems was performed and all other systems are negative. Physical examination: Vital signs reviewed General: non toxic, no distress, appears at stated age, on nasal cannula Derm: no unusual rashes/lesions, warm Head: atraumatic, normocephalic, symmetric Eyes: EOMI, anicteric sclera, pupils equal round reactive to light ENT: Nose and ears atraumatic Neck: No cervical lymphadenopathy, trachea midline, supple Mouth: no lip lesion, mucus membranes moist Cardiovascular: S1S2 reg, no murmur Lungs: CTA bilateral, no rales, no accessory muscle use Abdominal: soft, nondistended, nontender to palpation, no guarding Ext: muscle strength 5 out of 5 in all 4 extremities grossly, no gross muscle atrophy, no contractures, positive dorsalis pedis pulse bilateral, no edema Neuro: CN II-XI grossly intact, no gross focal neuro deficits Psych: Alert and oriented x 3, appropriate affect and mood Assessment/Plan: The patient is admitted with an anticipated greater than 2 midnight stay for evaluation of acute respiratory failure due to HFrEF exacerbation with concern for ARDS Active: #. Acute hypoxic respiratory failure, HFrEF exacerbation vs ARDS vs CAP #. Asthma exacerbation #. Ischemic cardiomyopathy (EF 40-45% with AICD) #. Leukocytosis, likley steroid induced, r/o other causes -No episodes of fevers overnight. WBC 30 today -Supportive oxygen as needed. Wean off as tolerated. -Chest CT showed diffuse scattered groundglass opacities concerning for pneumonia or ARDS - Completed course of Abx Zithromax p.o and Rocephin IVPB on 12/22 -On Solu-Medrol IV -Placed on Duoneb and Symbicort inhalers -decrease Lasix to 20mg BID IV -Daily weights, Strict InOs, Fluid restriction 1800 -Blood cultures positive for staph mecA/C positive. Likely contaminant. -Repeat blood cultures negative -Monitor CBC and renal fuction -Pulmonology consulted by ED -ID consulted. Procal ordered. Initated Diflucan p.o daily #. Acute Kidney Injury, prerenal - Cr 1.24 today -Monitor UO -Avoid nephrotoxic agents. Hold farxiga #. Mechanical Fall secondary to above #. Recent Right anterior total hip arthroplasty Hip pelvis x-ray showed no acute osseous abnormalities. Ortho consulted by ED. No intervention recommended at this time Continue with PO norco prn #. Normocytic anemia at baseline Hemoglobin 10.7 Monitor CBC. Transfuse if Hgb <7. Chronic Conditions: #. Diabetes mellitus, on insulin pump -Hemoglobin A1c 7.3 in November 2024 -Hold home insulin pump as she has run out of home insulin -Glucose Accu-Cheks ACHS -Insulin lispro 15 units AC-TID -Glarigine 25 units BID -Initiate Insulin sliding scale ACHS -Monitor for hypoglycemia #. Hypertension #. Hyperlipidemia #. Obesity #. CAD status post CABG #. Osteoarthritis Resume home aspirin, bupropion 150, buspirone 10 mg, carvedilol 12.5 mg, clopidogrel 75 mg, entresto, ezetimibe 10 mg, fluvoxamine 100 mggabapentin 300 mg, Synthroid 125 mcg, rosuvastatin 40 mg, trazodone 50 mg DVT ppx: Heparin subq GI prophylaxis: Pantoprazole 40 mg IVP twice daily CODE STATUS: Full Discussed with: Patient Anticipated discharge place: Home Zoila Walsh MD PGY-1/[facility] Dictation was produced using [employer] dictation software. please excuse any grammatical, word or spelling errors. Objective - Vital Signs Vital signs: Vital Signs Temp 98.1 F 12/30/24 03:38 Pulse 66 12/30/24 03:38 Resp 20 12/30/24 03:38 BP 114/70 12/30/24 06:28 Pulse Ox 93 L 12/30/24 03:38 FiO2 50 12/28/24 08:31 Intake & Output 12/29/24 12/30/24 12/30/24 18:59 06:59 18:59 Intake Total 1036 480 Output Total 1235 960 Balance -199 -960 480 Weight 73.5 kg Intake: Oral 1036 480 Output: Urine 1235 960 Other: Voiding Method External Catheter External Catheter - Labs CBC & Chem 7: 01/11/25 06:23 01/11/25 06:23 Labs: Abnormal Lab Results - Last 24 Hours (Table) 12/29/24 12/29/24 12/29/24 Range/Units 13:26 16:33 19:56 Sodium (137-145) mmol/L Carbon Dioxide (22-30) mmol/L BUN (7-17) mg/dL Creatinine (0.52-1.04) mg/dL Glucose (74-99) mg/dL POC Glucose (mg/dL) 338 H 248 H 347 H (70-110) mg/dL 12/29/24 12/30/24 12/30/24 Range/Units 20:42 01:50 06:19 Sodium 136 L (137-145) mmol/L Carbon Dioxide 32 H (22-30) mmol/L BUN 65 H (7-17) mg/dL Creatinine 1.24 H (0.52-1.04) mg/dL Glucose 186 H (74-99) mg/dL POC Glucose (mg/dL) 301 H 238 H (70-110) mg/dL 12/30/24 Range/Units 07:06 Sodium (137-145) mmol/L Carbon Dioxide (22-30) mmol/L BUN (7-17) mg/dL Creatinine (0.52-1.04) mg/dL Glucose (74-99) mg/dL POC Glucose (mg/dL) 189 H (70-110) mg/dL Assessment and Plan Assessment: Attestation 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
--- NOTE | 2024-12-30 12:10 | P.PN ---
Subjective Progress Note Date: 12/30/24 Principal diagnosis: Shortness of breath. Patient is a 75-year-old female with past medical history significant for hypertension, hyperlipidemia, insulin-dependent diabetes mellitus, obesity, coronary artery disease with previous CABG, ischemic cardiomyopathy with an ejection fraction of 25 to 30% with AICD, asthma, and osteoarthritis. Of note, patient recently underwent right direct anterior total hip arthroplasty on 11/24/2024. She was discharged from the hospital to [facility] for rehabilitation. While at the outside facility, developed shortness of breath, coughing, and generalized weakness. States she was released from [facility] to home last Wednesday on November. Since then, she has fallen twice while at home. Brought in by EMS yesterday evening hypoxic and confused. She was placed on supplemental oxygen. Workup in the emergency department including a chest x-ray showing patchy bilateral lung infiltrates concerning for congestive heart failur e or atypical pneumonias. CBC: WBC count 14.7, hemoglobin 9.5 g/dL, platelets 374. BMP: Sodium 132, potassium 4.4, chloride 100, serum bicarb 23, BUN 16, creatinine 0.92, glucose 124. Lactic 1.8. LFTs unremarkable. Troponin less than 0.012. NT proBNP 6.74. Viral 4 Plex negative for influenza A/B, RSV, COVID. Urinalysis unremarkable for UTI. Patient currently being evaluated on the general medical floor. She is alert and oriented x 3. Endorses above mentioned complaints. Does report history of asthma. Has had increased work of breathing over the last couple weeks. Suffering from persistent nonproductive cough over the same timeframe. States her symptoms actually started at [facility]. She has had a poor appetite with occasional nausea and vomiting. She has been able to take some of her home medications. Has had intermittent fevers with a Tmax of 100.8 F. Was started on empiric antibiotics in the ED, in the form azithromycin and Rocephin. Normal saline infusing at 50 mL/h. Denies any chest pain. Does endorse unilateral right lower lower extremity edema. No heart palpitations, syncopal events, hemoptysis. Current vital signs: Temperature 100.8 F, heart rate 95 bpm, blood pressure 124/54 mmHg, nontachypneic, SpO2 recorded at 96% on 3 L/min nasal cannula. The patient is seen today December 20, 2024 and follow-up on the regular medical floor. She is currently sitting up in bed. Awake and alert in no acute distress. Feeling a bit better today compared to yesterday. Maintaining O2 saturations in the 90s on 3 L/min per nasal cannula. Chest x-ray shows continued infiltrate of the right lung with improvement in the left lung. Blood culture is coming back positive. ID pending. White count 15.9. Hemoglobin 9.3. Platelets 371. Sodium 139. Potassium 4.2. Bicarb 27. BUN 16. Creatinine 1.01. Glucose 133. She remains on DuoNeb inhalations, IV Solu- Medrol, IV diuretics. Lovenox for DVT prophylaxis. Antibiotics in the form of ceftriaxone. The patient is seen today December 21, 2024 in follow-up on the regular medical floor. She is currently sitting up in a chair. Awake and alert in no acute distress. Maintaining O2 saturations in the 90s on 3 L/min per nasal cannula. She has been afebrile. Hemodynamically stable. Blood cultures showing staph epidermidis, most likely contaminant. White count 21.1. Hemoglobin 9.0. Platelets 409. Sodium 137. Potassium 4.5. Bicarb 30. BUN 29. Creatinine 1.28. Glucose 172. proBNP 2180. She remains on DuoNeb inhalations, Solu- Medrol. Antibiotics in the form of ceftriaxone. Lovenox for DVT prophylaxis. Remains on IV diuretics. No accurate intake and output recorded. Chest x-ray showing similar findings with basilar infiltrates right greater than left. The patient is seen today December 22, 2024 in follow-up on the regular medical floor. She is sitting up at the bedside. Awake and alert in no acute distress. She has been slow to progress. She is still dyspneic with minimal exertion. Dyspneic with conversation. She is maintaining O2 saturations in the 90s on 7 L high flow nasal cannula. Echocardiogram reveals impaired left ventricular systolic function with an ejection fraction [address] scan of the chest revealed marked diffuse scattered groundglass opacities consistent with pulmonary edema, ARDS or pneumonia. AICD in place. Blood culture positive for Staphylococcus epidermidis. White count 17.9. Hemoglobin 9.4. Platelets 386. Sodium 136. Potassium 4.7. Bicarb 28. BUN 37. Creatinine 1.06. Glucose 176. She remains on DuoNeb inhalations, Solu-Medrol. Remains on oral diuretics. Antibiotics in the form of ceftriaxone. Heparin for DVT prophylaxis. The patient is seen today December 23, 2024 in follow-up on the regular medical floor. She is currently resting in bed. Awake and alert in no acute distress. Feeling a bit better today compared to yesterday. She is maintaining O2 saturations in the 90s on 6 L high flow nasal cannula. She remains afebrile. Hemodynamically stable. Initial blood cultures showing staph epidermidis. Foll ow-up blood culture reveals no growth. White count 17.6. Hemoglobin 9.2. Platelets 381. Sodium 138. Potassium 4.4. Bicarb 28. BUN 45. Creatinine 1.11. Glucose 115. Arterial blood gases on 44% FiO2 revealed a PO2 of 50, [id number] and a pH of 7.42. She remains on DuoNeb inhalations, Solu-Medrol and Robitussin as needed. Heparin for DVT prophylaxis. She remains on Lasix 40 mg every 12 hours. No accurate intake and output recorded. The patient is seen today December 24, 2024 in follow-up on the regular medical floor. She is awake and alert in no acute distress. Resting in bed. No worsen ing shortness of breath, cough or congestion. She is still requiring 10 L high flow nasal cannula to maintain O2 saturations in the 90s. Lung sounds improved. Blood cultures were positive for Staphylococcus epidermidis. Most likely a contaminant. Follow-up blood culture revealed no growth. Glucose 233. She remains on DuoNeb inhalations, Symbicort, Solu-Medrol. She remains on IV Lasix. Heparin for DVT prophylaxis. Currently in a -1.9 L balance. The patient is seen today December 25, 2024 in follow-up in the intensive care unit. She was transferred down here last evening after having issues with worsening hypoxemia. She is currently on Airvo high flow oxygen at 50 L and 50% FiO2. She is afebrile. Hemodynamically stable. Chest x-ray continues to show cardiomegaly with pulmonary vascular congestion and bilateral pleural effusions. Follow-up blood culture revealed no growth. White count 17.9. Hemoglobin 9.7. Platelets 350. Sodium 137. Potassium 4.8. Bicarb 31. BUN 49. Creatinine 1.16. Glucose 224. She remains on DuoNeb inhalations, Symbicort, Solu-Medrol. Heparin for DVT prophylaxis. She remains on Lasix 40 mg IV every 12 hours. Currently in a -4 L balance. The patient is seen today December 26, 2024 in follow-up in the intensive care unit. She is currently sitting up in bed. Awake and alert in no acute distress. Feeling a bit better today compared to yesterday. She is still high flow oxygen at 50 L and 60% FiO2. No IV fluids. She has been afebrile. Hemodynamically stable. Chest x-ray continues to show diffuse infiltrates bilaterally right greater than left. Follow-up blood culture reveals no growth. White count 19.5. Hemoglobin 10.0. Platelets 359. Sodium 137. Potassium 4.2. Bicarb 33. BUN 54. Creatinine 1.07. Glucose 280. Continued on Lasix 40 mg IV every 12 hours. Currently net -3.3 L balance. She remains on DuoNeb and elations, Symbicort, Solu-Medrol. Robitussin for her cough. The patient is seen today December 28, 2024 in follow-up in the intensive care unit. She is awake and alert in no acute distress. Sitting up in bed. Remains on Airvo high flow oxygen at 50 L and 50% FiO2. No IV fluids. Chest x-ray is showing fluid volume overload but improving. Initial blood culture positive for staph epidermidis. Follow-up blood culture revealed no growth. White count 19.6. Hemoglobin 10.4. Platelets 352. Sodium 134. Potassium 4.0. Bicarb 33. BUN 66. Creatinine 1.12. Glucose 205. She is continued on DuoNeb i nhalations, Symbicort, Solu-Medrol. Heparin for DVT prophylaxis. She remains on Lasix 40 mg IV every 12 hours. Currently in a -700 mL balance. The patient is seen today December 29, 2024 in follow-up in the intensive care unit. She is currently sitting up in bed. Awake and alert in no acute distress. Deny any worsening shortness of breath, cough or congestion. Feeling better. She is now on 8 L high flow nasal cannula. Chest x-ray continues to show improvement. White count 26.0. Hemoglobin 10.7. Platelets 352. Sodium 136. Potassium 4.3. Bicarb 34. BUN 63. Creatinine 1.11. Glucose 185. She remains on DuoNeb inhalations, Symbicort, Solu-Medrol. Heparin for DVT prophylaxis. Continued on Lasix 40 mg every 12 hours. Currently in a -700 mL balance. Progress note dated December 30, 2024. 74-year-old female, who is seen today in room 380. Yesterday, she was in the intensive care unit. She is currently on 9 L high flow nasal O2. She is not receiving any IV fluids. All in all, the patient appears to be doing a bit better. She is certainly moving in the correct direction, albeit very slowly. She still very short of breath with any activity. Current labs include a sodium 136, potassium 4.7, chloride 98, CO2 32, BUN 65, creatinine 1.24. Glucose is 189. Calcium is 9.4. Blood cultures from 092 are positive for Staphylococcus epidermidis. Chest x-ray from yesterday, continues to show improving pulmonary venous congestion. Objective - Vital Signs Vital signs: Vital Signs Temp 98.1 F 12/30/24 08:00 Pulse 84 12/30/24 09:57 Resp 20 12/30/24 08:00 BP 95/59 12/30/24 08:00 Pulse Ox 95 12/30/24 09:43 FiO2 50 12/28/24 08:31 Intake & Output 12/29/24 12/30/24 12/30/24 18:59 06:59 18:59 Intake Total 1036 480 Output Total 1235 960 Balance -199 -960 480 Weight 73.5 kg Intake: Oral 1036 480 Output: Urine 1235 960 Other: Voiding Method External Catheter External Catheter External Catheter - Exam No acute distress, oriented 3. Currently on 9 L high flow oxygen. No conversational dyspnea. HEENT examination is grossly unremarkable. Mucous membranes are moist. No oral lesions. Neck supple. Full range of motion. No adenopathy thyromegaly or neck vein distention. Cardiovascular examination reveals regular rhythm rate. S1-S2 normal. No S3 or S4. No discernible murmur noted. Lungs reveal minimal bibasilar crackles. No wheezes. No rhonchi. Breath sounds equal bilaterally. Abdomen soft bowel sounds are heard. No masses or tenderness. Extremities are intact. No cyanosis clubbing or edema. Skin is without rash or lesion. Neurologic examination is brief but nonfocal. - Labs CBC & Chem 7: 12/29/24 05:53 12/30/24 06:19 Labs: Abnormal Lab Results - Last 24 Hours (Table) 12/29/24 12/29/24 12/29/24 Range/Units 13:26 16:33 19:56 Sodium (137-145) mmol/L Carbon Dioxide (22-30) mmol/L BUN (7-17) mg/dL Creatinine (0.52-1.04) mg/dL Glucose (74-99) mg/dL POC Glucose (mg/dL) 338 H 248 H 347 H (70-110) mg/dL 12/29/24 12/30/24 12/30/24 Range/Units 20:42 01:50 06:19 Sodium 136 L (137-145) mmol/L Carbon Dioxide 32 H (22-30) mmol/L BUN 65 H (7-17) mg/dL Creatinine 1.24 H (0.52-1.04) mg/dL Glucose 186 H (74-99) mg/dL POC Glucose (mg/dL) 301 H 238 H (70-110) mg/dL 12/30/24 Range/Units 07:06 Sodium (137-145) mmol/L Carbon Dioxide (22-30) mmol/L BUN (7-17) mg/dL Creatinine (0.52-1.04) mg/dL Glucose (74-99) mg/dL POC Glucose (mg/dL) 189 H (70-110) mg/dL Assessment and Plan Assessment: Acute, but improving, hypoxemic respiratory failure, most likely on the basis of fluid overload/acute lung injury. Acute asthma exacerbation. Acute hypoxemic respiratory failure, improved. Acute febrile illness, recovered. Acute leukocytosis. History of right direct anterior total hip arthroplasty on November 24. Acute blood loss anemia. Hypertension. History of hyperlipidemia. Insulin-dependent diabetes mellitus. Obesity with a BMI of 35.4 kg/m. Coronary artery disease, with history of CABG and cardiac stents. History of ischemic cardiomyopathy with an ejection fraction improved to 40 to 45%. Implanted AICD/pacemaker. Hypothyroidism. Anxiety/depression. Plan: Plan dated December 30, 2024. The patient is seen today in room 380. Yesterday, she was in the intensive care unit. She was moved out of the ICU, because her oxygenation, and overall clinical status has been improving, albeit very slowly. She is not receiving any IV fluids. Labs, x-rays, medications are reviewed. Currently, she is on 9 L high flow nasal O2. We will continue to follow the patient, make recommendations along the way. The patient continues on appropriate medications including updrafts, and Lasix. Dictation was produced using [employer] dictation software. Please excuse any grammatical, word or spelling errors. Time with Patient: Less than 30
[2024-12-30 12:27] LABS: Basophils # (A) 0.08 10*3/uL (0.00-0.10); Basophils % (A) 0.3 %; Eosinophils # (A) 0.00 10*3/uL (0.04-0.35); Eosinophils % (A) 0.0 %; HCT 35.2 % (37.2-46.3); HGB 11.1 g/dL (12.0-15.0); Lymphocytes # (A) 0.65 10*3/uL (0.90-5.00); Lymphocytes % (A) 2.2 %; MCH 29.3 pg (27.0-32.0); MCHC 31.5 g/dL (32.0-37.0); MCV 92.9 fL (80.0-97.0); Monocytes # (A) 0.54 10*3/uL (0.20-1.00); Monocytes % (A) 1.8 %; Neutrophils # (A) 27.87 10*3/uL (1.80-7.70); Neutrophils % (A) 92.4 %; Platelet Count 330 10*3/uL (140-440); RBC 3.79 10*6/uL (4.10-5.20); RDW 13.9 % (11.5-14.5); WBC 30.12 10*3/uL (4.50-10.00)
[2024-12-30 12:28] LABS: Glucose,Whole Blood 262 mg/dL (70-110)
--- NOTE | 2024-12-30 14:50 | P.PN ---
Subjective Progress Note Date: 12/30/24 Principal diagnosis: Reason for follow-up is a positive blood culture Patient is a 74-year-old female with a past medical history significant for Asthma, Blood Disorder, Coronary Artery Disease (CAD), Chest Pain / Angina, Heart Failure, Diabetes Mellitus, Eye Disorder, GERD/Reflux, Hyperlipidemia, Hypertension, Myocardial Infarction (OR), Musculoskeletal Disorder, Osteoarthritis (OA), Renal Disease, Skin Disorder, Supraventricular Tachycardia (SVT), Thyroid Disorder who recently did have a right hip replacement, patient presented the hospital with increasing shortness of breath and cough did have a positive blood culture prompting this consultation. On today's evaluation that is 12/31/2023, patient did have a temperature of 98.1 F this morning and denies having any chills, patient is down to 8 L nasal cannula oxygen and mention breathing comfortably no chest pain or worsening cough, the patient did not have any nausea vomiting abdominal pain or any diarr hea. Patient white count is up to 30.12 creatinine is 1.24, did have repeat procalcitonin is less than 0.20 Objective - Vital Signs Vital signs: Vital Signs Temp 98.1 F 12/30/24 08:00 Pulse 88 12/30/24 13:07 Resp 20 12/30/24 08:00 BP 95/59 12/30/24 08:00 Pulse Ox 92 L 12/30/24 12:58 FiO2 50 12/28/24 08:31 Intake & Output 12/29/24 12/30/24 12/30/24 18:59 06:59 18:59 Intake Total 1036 720 Output Total 1235 960 Balance -199 -960 720 Weight 73.5 kg Intake: Oral 1036 720 Output: Urine 1235 960 Other: Voiding Method External Catheter External Catheter External Catheter # Voids 2 - Exam GENERAL DESCRIPTION: An elderly female up in the bed in no distress RESPIRATORY SYSTEM: Unlabored breathing , decreased breath sounds at bases HEART: S1 S2 regular rate and rhythm , ABDOMEN: Soft , no tenderness EXTREMITIES: No edema feet - Labs CBC & Chem 7: 12/30/24 06:19 12/30/24 06:19 Labs: Abnormal Lab Results - Last 24 Hours (Table) 12/29/24 12/29/24 12/29/24 Range/Units 16:33 19:56 20:42 WBC (4.50-10.00) 10*3/uL RBC (4.10-5.20) 10*6/uL Hgb (12.0-15.0) g/dL Hct (37.2-46.3) % MCHC (32.0-37.0) g/dL Immature Gran # (0.00-0.04) 10*3/uL Neutrophils # (1.80-7.70) 10*3/uL Lymphocytes # (0.90-5.00) 10*3/uL Eosinophils # (0.04-0.35) 10*3/uL Sodium (137-145) mmol/L Carbon Dioxide (22-30) mmol/L BUN (7-17) mg/dL Creatinine (0.52-1.04) mg/dL Glucose (74-99) mg/dL POC Glucose (mg/dL) 248 H 347 H 301 H (70-110) mg/dL 12/30/24 12/30/24 12/30/24 Range/Units 01:50 06:19 06:19 WBC 30.12 H (4.50-10.00) 10*3/uL RBC 3.79 L (4.10-5.20) 10*6/uL Hgb 11.1 L (12.0-15.0) g/dL Hct 35.2 L (37.2-46.3) % MCHC 31.5 L (32.0-37.0) g/dL Immature Gran # 0.98 H (0.00-0.04) 10*3/uL Neutrophils # 27.87 H (1.80-7.70) 10*3/uL Lymphocytes # 0.65 L (0.90-5.00) 10*3/uL Eosinophils # 0.00 L (0.04-0.35) 10*3/uL Sodium 136 L (137-145) mmol/L Carbon Dioxide 32 H (22-30) mmol/L BUN 65 H (7-17) mg/dL Creatinine 1.24 H (0.52-1.04) mg/dL Glucose 186 H (74-99) mg/dL POC Glucose (mg/dL) 238 H (70-110) mg/dL 12/30/24 12/30/24 Range/Units 07:06 12:27 WBC (4.50-10.00) 10*3/uL RBC (4.10-5.20) 10*6/uL Hgb (12.0-15.0) g/dL Hct (37.2-46.3) % MCHC (32.0-37.0) g/dL Immature Gran # (0.00-0.04) 10*3/uL Neutrophils # (1.80-7.70) 10*3/uL Lymphocytes # (0.90-5.00) 10*3/uL Eosinophils # (0.04-0.35) 10*3/uL Sodium (137-145) mmol/L Carbon Dioxide (22-30) mmol/L BUN (7-17) mg/dL Creatinine (0.52-1.04) mg/dL Glucose (74-99) mg/dL POC Glucose (mg/dL) 189 H 262 H (70-110) mg/dL Assessment and Plan (1) Positive blood culture Current Visit: Yes Status: Acute Code(s): R78.81 - BACTEREMIA SNOMED Code(s): 914374486 (2) Leukocytosis Current Visit: Yes Status: Acute Code(s): D72.829 - ELEVATED WHITE BLOOD CELL COUNT, UNSPECIFIED SNOMED Code(s): 313524390 Plan: 1patient with a positive blood culture with staph epi which is more likely skin contamination this patient who recently did have a right hip replacement however the right hip surgical site incision is currently healed with no cellulitis and the patient denies having any pain to the right hip area, no need for vancomycin however blood culture has been repeated 2patient presented hospital with increasing shortness of breath and did have a cough question of asthma exacerbation with tracheobronchitis chest x-ray was atypical pneumonia, patient did have a normal procalcitonin antibiotic has been discontinued 3patient white count is still elevated more likely steroid-related as the patient did have a repeat procalcitonin of less than 0.20 she is currently on Diflucan for possible oropharyngeal candidiasis and will monitor clinical course closely Dictation was produced using [employer] software. please excuse any grammatical, word or spelling errors. Time with Patient: Less than 30
[2024-12-30 17:09] LABS: Glucose,Whole Blood 157 mg/dL (70-110)
[2024-12-30 20:13] LABS: Glucose,Whole Blood 326 mg/dL (70-110)
[2024-12-30] MEDS: FUROSEMIDE 10 MG/ML 2 ML VIAL IV SCH (20:25)
[2024-12-30] MEDS: SACUBITRIL/VALSARTAN 24 MG-26 MG TABLET PO SCH (20:26)
[2024-12-31 01:37] LABS: Glucose,Whole Blood 317 mg/dL (70-110)
[2024-12-31 07:03] LABS: Glucose,Whole Blood 245 mg/dL (70-110)
[2024-12-31 07:04] LABS: Basophils # (A) 0.08 10*3/uL (0.00-0.10); Basophils % (A) 0.3 %; Eosinophils # (A) 0.00 10*3/uL (0.04-0.35); Eosinophils % (A) 0.0 %; HCT 32.5 % (37.2-46.3); HGB 10.5 g/dL (12.0-15.0); Lymphocytes # (A) 0.45 10*3/uL (0.90-5.00); Lymphocytes % (A) 1.7 %; MCH 29.4 pg (27.0-32.0); MCHC 32.3 g/dL (32.0-37.0); MCV 91.0 fL (80.0-97.0); Monocytes # (A) 0.71 10*3/uL (0.20-1.00); Monocytes % (A) 2.6 %; Neutrophils # (A) 24.88 10*3/uL (1.80-7.70); Neutrophils % (A) 91.9 %; Platelet Count 275 10*3/uL (140-440); RBC 3.57 10*6/uL (4.10-5.20); RDW 13.9 % (11.5-14.5); WBC 27.06 10*3/uL (4.50-10.00)
[2024-12-31 07:15] LABS: African American GFR (CKD) 49 (>60 ml/min/1.73 sqM); Anion Gap 6 mmol/L; Blood Urea Nitrogen 66 mg/dL (7-17); Calcium 9.4 mg/dL (8.4-10.2); Carbon Dioxide 32 mmol/L (22-30); Chloride 97 mmol/L (98-107); Glucose 222 mg/dL (74-99); Non-African American GFR(CKD) 42 (>60 ml/min/1.73 sqM); Potassium 5.0 mmol/L (3.5-5.1); Sodium 135 mmol/L (137-145)
[2024-12-31 11:56] LABS: Glucose,Whole Blood 484 mg/dL (70-110)
--- NOTE | 2024-12-31 12:26 | P.PN ---
Subjective Progress Note Date: 12/31/24 Principal diagnosis: Shortness of breath. Patient is a 75-year-old female with past medical history significant for hypertension, hyperlipidemia, insulin-dependent diabetes mellitus, obesity, coronary artery disease with previous CABG, ischemic cardiomyopathy with an ejection fraction of 25 to 30% with AICD, asthma, and osteoarthritis. Of note, patient recently underwent right direct anterior total hip arthroplasty on 11/24/2024. She was discharged from the hospital to [facility] for rehabilitation. While at the outside facility, developed shortness of breath, coughing, and generalized weakness. States she was released from [facility] to home last Wednesday on November. Since then, she has fallen twice while at home. Brought in by EMS yesterday evening hypoxic and confused. She was placed on supplemental oxygen. Workup in the emergency department including a chest x-ray showing patchy bilateral lung infiltrates concerning for congestive heart failur e or atypical pneumonias. CBC: WBC count 14.7, hemoglobin 9.5 g/dL, platelets 374. BMP: Sodium 132, potassium 4.4, chloride 100, serum bicarb 23, BUN 16, creatinine 0.92, glucose 124. Lactic 1.8. LFTs unremarkable. Troponin less than 0.012. NT proBNP 6.74. Viral 4 Plex negative for influenza A/B, RSV, COVID. Urinalysis unremarkable for UTI. Patient currently being evaluated on the general medical floor. She is alert and oriented x 3. Endorses above mentioned complaints. Does report history of asthma. Has had increased work of breathing over the last couple weeks. Suffering from persistent nonproductive cough over the same timeframe. States her symptoms actually started at [facility]. She has had a poor appetite with occasional nausea and vomiting. She has been able to take some of her home medications. Has had intermittent fevers with a Tmax of 100.8 F. Was started on empiric antibiotics in the ED, in the form azithromycin and Rocephin. Normal saline infusing at 50 mL/h. Denies any chest pain. Does endorse unilateral right lower lower extremity edema. No heart palpitations, syncopal events, hemoptysis. Current vital signs: Temperature 100.8 F, heart rate 95 bpm, blood pressure 124/54 mmHg, nontachypneic, SpO2 recorded at 96% on 3 L/min nasal cannula. The patient is seen today December 20, 2024 and follow-up on the regular medical floor. She is currently sitting up in bed. Awake and alert in no acute distress. Feeling a bit better today compared to yesterday. Maintaining O2 saturations in the 90s on 3 L/min per nasal cannula. Chest x-ray shows continued infiltrate of the right lung with improvement in the left lung. Blood culture is coming back positive. ID pending. White count 15.9. Hemoglobin 9.3. Platelets 371. Sodium 139. Potassium 4.2. Bicarb 27. BUN 16. Creatinine 1.01. Glucose 133. She remains on DuoNeb inhalations, IV Solu- Medrol, IV diuretics. Lovenox for DVT prophylaxis. Antibiotics in the form of ceftriaxone. The patient is seen today December 21, 2024 in follow-up on the regular medical floor. She is currently sitting up in a chair. Awake and alert in no acute distress. Maintaining O2 saturations in the 90s on 3 L/min per nasal cannula. She has been afebrile. Hemodynamically stable. Blood cultures showing staph epidermidis, most likely contaminant. White count 21.1. Hemoglobin 9.0. Platelets 409. Sodium 137. Potassium 4.5. Bicarb 30. BUN 29. Creatinine 1.28. Glucose 172. proBNP 2180. She remains on DuoNeb inhalations, Solu- Medrol. Antibiotics in the form of ceftriaxone. Lovenox for DVT prophylaxis. Remains on IV diuretics. No accurate intake and output recorded. Chest x-ray showing similar findings with basilar infiltrates right greater than left. The patient is seen today December 22, 2024 in follow-up on the regular medical floor. She is sitting up at the bedside. Awake and alert in no acute distress. She has been slow to progress. She is still dyspneic with minimal exertion. Dyspneic with conversation. She is maintaining O2 saturations in the 90s on 7 L high flow nasal cannula. Echocardiogram reveals impaired left ventricular systolic function with an ejection fraction 40 [address] scan of the chest revealed marked diffuse scattered groundglass opacities consistent with pulmonary edema, ARDS or pneumonia. AICD in place. Blood culture positive for Staphylococcus epidermidis. White count 17.9. Hemoglobin 9.4. Platelets 386. Sodium 136. Potassium 4.7. Bicarb 28. BUN 37. Creatinine 1.06. Glucose 176. She remains on DuoNeb inhalations, Solu-Medrol. Remains on oral diuretics. Antibiotics in the form of ceftriaxone. Heparin for DVT prophylaxis. The patient is seen today December 23, 2024 in follow-up on the regular medical floor. She is currently resting in bed. Awake and alert in no acute distress. Feeling a bit better today compared to yesterday. She is maintaining O2 saturations in the 90s on 6 L high flow nasal cannula. She remains afebrile. Hemodynamically stable. Initial blood cultures showing staph epidermidis. Foll ow-up blood culture reveals no growth. White count 17.6. Hemoglobin 9.2. Platelets 381. Sodium 138. Potassium 4.4. Bicarb 28. BUN 45. Creatinine 1.11. Glucose 115. Arterial blood gases on 44% FiO2 revealed a PO2 of 50, BER311 and a pH of 7.42. She remains on DuoNeb inhalations, Solu-Medrol and Robitussin as needed. Heparin for DVT prophylaxis. She remains on Lasix 40 mg every 12 hours. No accurate intake and output recorded. The patient is seen today December 24, 2024 in follow-up on the regular medical floor. She is awake and alert in no acute distress. Resting in bed. No worsen ing shortness of breath, cough or congestion. She is still requiring 10 L high flow nasal cannula to maintain O2 saturations in the 90s. Lung sounds improved. Blood cultures were positive for Staphylococcus epidermidis. Most likely a contaminant. Follow-up blood culture revealed no growth. Glucose 233. She remains on DuoNeb inhalations, Symbicort, Solu-Medrol. She remains on IV Lasix. Heparin for DVT prophylaxis. Currently in a -1.9 L balance. The patient is seen today December 25, 2024 in follow-up in the intensive care unit. She was transferred down here last evening after having issues with worsening hypoxemia. She is currently on Airvo high flow oxygen at 50 L and 50% FiO2. She is afebrile. Hemodynamically stable. Chest x-ray continues to show cardiomegaly with pulmonary vascular congestion and bilateral pleural effusions. Follow-up blood culture revealed no growth. White count 17.9. Hemoglobin 9.7. Platelets 350. Sodium 137. Potassium 4.8. Bicarb 31. BUN 49. Creatinine 1.16. Glucose 224. She remains on DuoNeb inhalations, Symbicort, Solu-Medrol. Heparin for DVT prophylaxis. She remains on Lasix 40 mg IV every 12 hours. Currently in a -4 L balance. The patient is seen today December 26, 2024 in follow-up in the intensive care unit. She is currently sitting up in bed. Awake and alert in no acute distress. Feeling a bit better today compared to yesterday. She is still high flow oxygen at 50 L and 60% FiO2. No IV fluids. She has been afebrile. Hemodynamically stable. Chest x-ray continues to show diffuse infiltrates bilaterally right greater than left. Follow-up blood culture reveals no growth. White count 19.5. Hemoglobin 10.0. Platelets 359. Sodium 137. Potassium 4.2. Bicarb 33. BUN 54. Creatinine 1.07. Glucose 280. Continued on Lasix 40 mg IV every 12 hours. Currently net -3.3 L balance. She remains on DuoNeb and elations, Symbicort, Solu-Medrol. Robitussin for her cough. The patient is seen today December 28, 2024 in follow-up in the intensive care unit. She is awake and alert in no acute distress. Sitting up in bed. Remains on Airvo high flow oxygen at 50 L and 50% FiO2. No IV fluids. Chest x-ray is showing fluid volume overload but improving. Initial blood culture positive for staph epidermidis. Follow-up blood culture revealed no growth. White count 19.6. Hemoglobin 10.4. Platelets 352. Sodium 134. Potassium 4.0. Bicarb 33. BUN 66. Creatinine 1.12. Glucose 205. She is continued on DuoNeb i nhalations, Symbicort, Solu-Medrol. Heparin for DVT prophylaxis. She remains on Lasix 40 mg IV every 12 hours. Currently in a -700 mL balance. The patient is seen today December 29, 2024 in follow-up in the intensive care unit. She is currently sitting up in bed. Awake and alert in no acute distress. Deny any worsening shortness of breath, cough or congestion. Feeling better. She is now on 8 L high flow nasal cannula. Chest x-ray continues to show improvement. White count 26.0. Hemoglobin 10.7. Platelets 352. Sodium 136. Potassium 4.3. Bicarb 34. BUN 63. Creatinine 1.11. Glucose 185. She remains on DuoNeb inhalations, Symbicort, Solu-Medrol. Heparin for DVT prophylaxis. Continued on Lasix 40 mg every 12 hours. Currently in a -700 mL balance. Progress note dated December 30, 2024. 74-year-old female, who is seen today in room 380. Yesterday, she was in the intensive care unit. She is currently on 9 L high flow nasal O2. She is not receiving any IV fluids. All in all, the patient appears to be doing a bit better. She is certainly moving in the correct direction, albeit very slowly. She still very short of breath with any activity. Current labs include a sodium 136, potassium 4.7, chloride 98, CO2 32, BUN 65, creatinine 1.24. Glucose is 189. Calcium is 9.4. Blood cultures from 092 are positive for Staphylococcus epidermidis. Chest x-ray from yesterday, continues to show improving pulmonary venous congestion. Progress note dated December 31, 2024. 74-year-old female seen today in room 380. Family members in the room. She is currently on 8 L high flow oxygen. Saturations are 93 to 95%. She is not receiving any IV fluids. Clinically, she looks well, despite the fact that she still on 8 liter high flow nasal O2. Laboratory data is reviewed. White count is 27.1, hemoglobin 10.5, hematocrit 32.5, platelet count is normal. Sodium 135, potassium 5, chloride 97, CO2 32, BUN 66, creatinine 1.27. Glucose was 484. Calcium 9.4. Objective - Vital Signs Vital signs: Vital Signs Temp 97.6 F 12/31/24 12:00 Pulse 67 12/31/24 12:00 Resp 18 12/31/24 12:00 BP 126/70 12/31/24 12:00 Pulse Ox 92 L 12/31/24 12:00 FiO2 50 12/28/24 08:31 Intake & Output 12/30/24 12/31/24 12/31/24 18:59 06:59 18:59 Intake Total 960 236 Output Total 700 400 Balance 960 -700 -164 Weight 73 kg Intake: Oral 960 236 Output: Urine 700 400 Other: Voiding Method External Catheter External Catheter Diaper External Catheter # Voids 2 1 - Exam No acute distress, oriented 3. Currently on 8 L high flow oxygen. No conversational dyspnea. HEENT examination is grossly unremarkable. Mucous membranes are moist. No oral lesions. Neck supple. Full range of motion. No adenopathy thyromegaly or neck vein distention. Cardiovascular examination reveals regular rhythm rate. S1-S2 normal. No S3 or S4. No discernible murmur noted. Lungs reveal minimal bibasilar crackles. No wheezes. No rhonchi. Breath sounds equal bilaterally. Abdomen soft bowel sounds are heard. No masses or tenderness. Extremities are intact. No cyanosis clubbing or edema. Skin is without rash or lesion. Neurologic examination is brief but nonfocal. - Labs CBC & Chem 7: 12/31/24 05:53 12/31/24 05:53 Labs: Abnormal Lab Results - Last 24 Hours (Table) 12/30/24 12/30/24 12/30/24 Range/Units 06:19 12:27 17:07 WBC 30.12 H (4.50-10.00) 10*3/uL RBC 3.79 L (4.10-5.20) 10*6/uL Hgb 11.1 L (12.0-15.0) g/dL Hct 35.2 L (37.2-46.3) % MCHC 31.5 L (32.0-37.0) g/dL Immature Gran # 0.98 H (0.00-0.04) 10*3/uL Neutrophils # 27.87 H (1.80-7.70) 10*3/uL Lymphocytes # 0.65 L (0.90-5.00) 10*3/uL Eosinophils # 0.00 L (0.04-0.35) 10*3/uL Sodium (137-145) mmol/L Chloride (98-107) mmol/L Carbon Dioxide (22-30) mmol/L BUN (7-17) mg/dL Creatinine (0.52-1.04) mg/dL Glucose (74-99) mg/dL POC Glucose (mg/dL) 262 H 157 H (70-110) mg/dL 12/30/24 12/31/24 12/31/24 Range/Units 20:11 01:35 05:53 WBC 27.06 H (4.50-10.00) 10*3/uL RBC 3.57 L (4.10-5.20) 10*6/uL Hgb 10.5 L (12.0-15.0) g/dL Hct 32.5 L (37.2-46.3) % MCHC (32.0-37.0) g/dL Immature Gran # 0.94 H (0.00-0.04) 10*3/uL Neutrophils # 24.88 H (1.80-7.70) 10*3/uL Lymphocytes # 0.45 L (0.90-5.00) 10*3/uL Eosinophils # 0.00 L (0.04-0.35) 10*3/uL Sodium (137-145) mmol/L Chloride (98-107) mmol/L Carbon Dioxide (22-30) mmol/L BUN (7-17) mg/dL Creatinine (0.52-1.04) mg/dL Glucose (74-99) mg/dL POC Glucose (mg/dL) 326 H 317 H (70-110) mg/dL 12/31/24 12/31/24 12/31/24 Range/Units 05:53 07:01 11:55 WBC (4.50-10.00) 10*3/uL RBC (4.10-5.20) 10*6/uL Hgb (12.0-15.0) g/dL Hct (37.2-46.3) % MCHC (32.0-37.0) g/dL Immature Gran # (0.00-0.04) 10*3/uL Neutrophils # (1.80-7.70) 10*3/uL Lymphocytes # (0.90-5.00) 10*3/uL Eosinophils # (0.04-0.35) 10*3/uL Sodium 135 L (137-145) mmol/L Chloride 97 L (98-107) mmol/L Carbon Dioxide 32 H (22-30) mmol/L BUN 66 H (7-17) mg/dL Creatinine 1.27 H (0.52-1.04) mg/dL Glucose 222 H (74-99) mg/dL POC Glucose (mg/dL) 245 H 484 H (70-110) mg/dL Assessment and Plan Assessment: Acute, but improving, hypoxemic respiratory failure, most likely on the basis of fluid overload/acute lung injury. Acute asthma exacerbation. Acute hypoxemic respiratory failure, improved. Acute febrile illness, recovered. Acute leukocytosis. History of right direct anterior total hip arthroplasty on November 24. Acute blood loss anemia. Hypertension. History of hyperlipidemia. Insulin-dependent diabetes mellitus. Obesity with a BMI of 35.4 kg/m. Coronary artery disease, with history of CABG and cardiac stents. History of ischemic cardiomyopathy with an ejection fraction improved to 40 to 45%. Implanted AICD/pacemaker. Hypothyroidism. Anxiety/depression. Plan: Plan dated December 30, 2024. The patient is seen today in room 380. Yesterday, she was in the intensive care unit. She was moved out of the ICU, because her oxygenation, and overall clinical status has been improving, albeit very slowly. She is not receiving any IV fluids. Labs, x-rays, medications are reviewed. Currently, she is on 9 L high flow nasal O2. We will continue to follow the patient, make recommendations along the way. The patient continues on appropriate medications including updrafts, and Lasix. Dictation was produced using [employer] software. Please excuse any grammatical, word or spelling errors. Plan dated December 31, 2024. The patient is encouraged to sit up in bed, or sit in the chair next to the bed. Currently he continues on a liter high flow oxygen. Saturations are 93 to 95%. Labs, x-rays, medications are reviewed. She is not receiving any IV fluids. Clinically, she is improved. She does understand that she is not can be able to go home with this much oxygen, and needs to improve before discharge. We encourage deep breathing, coughing, clearing of secretions, and better positioning in bed, or, sitting in the chair. Dictation was produced using [employer] software. Please excuse any grammatical, word or spelling errors. Time with Patient: Less than 30
--- NOTE | 2024-12-31 15:31 | P.PN ---
Subjective Progress Note Date: 12/31/24 Principal diagnosis: Reason for follow-up is a positive blood culture Patient is a 74-year-old female with a past medical history significant for Asthma, Blood Disorder, Coronary Artery Disease (CAD), Chest Pain / Angina, Heart Failure, Diabetes Mellitus, Eye Disorder, GERD/Reflux, Hyperlipidemia, Hypertension, Myocardial Infarction (NC), Musculoskeletal Disorder, Osteoarthritis (OA), Renal Disease, Skin Disorder, Supraventricular Tachycardia (SVT), Thyroid Disorder who recently did have a right hip replacement, patient presented the hospital with increasing shortness of breath and cough did have a positive blood culture prompting this consultation. On today's evaluation that is 12/31/2024, Patient is afebrile patient is currently on 8 L high flow nasal oxygen and denies having any worsening shortness of breath, the patient denies any chest pain or any worsening cough, the patient denies any nausea vomiting did not have any abdominal pain and no diarrhea. Patient white count slightly down to 27.06, creatinine is 1.27 Objective - Vital Signs Vital signs: Vital Signs Temp 97.6 F 12/31/24 12:00 Pulse 67 12/31/24 12:00 Resp 18 12/31/24 12:00 BP 126/70 12/31/24 12:00 Pulse Ox 92 L 12/31/24 12:00 FiO2 50 12/28/24 08:31 Intake & Output 12/30/24 12/31/24 12/31/24 18:59 06:59 18:59 Intake Total 960 354 Output Total 700 400 Balance 960 -700 -46 Weight 73 kg Intake: Oral 960 354 Output: Urine 700 400 Other: Voiding Method External Catheter External Catheter Diaper External Catheter # Voids 2 1 - Exam GENERAL DESCRIPTION: An elderly female up in the bed in no distress RESPIRATORY SYSTEM: Unlabored breathing , decreased breath sounds at bases HEART: S1 S2 regular rate and rhythm , ABDOMEN: Soft , no tenderness EXTREMITIES: No edema feet - Labs CBC & Chem 7: 12/31/24 05:53 12/31/24 05:53 Labs: Abnormal Lab Results - Last 24 Hours (Table) 12/30/24 12/30/24 12/31/24 Range/Units 17:07 20:11 01:35 WBC (4.50-10.00) 10*3/uL RBC (4.10-5.20) 10*6/uL Hgb (12.0-15.0) g/dL Hct (37.2-46.3) % Immature Gran # (0.00-0.04) 10*3/uL Neutrophils # (1.80-7.70) 10*3/uL Lymphocytes # (0.90-5.00) 10*3/uL Eosinophils # (0.04-0.35) 10*3/uL Sodium (137-145) mmol/L Chloride (98-107) mmol/L Carbon Dioxide (22-30) mmol/L BUN (7-17) mg/dL Creatinine (0.52-1.04) mg/dL Glucose (74-99) mg/dL POC Glucose (mg/dL) 157 H 326 H 317 H (70-110) mg/dL 12/31/24 12/31/24 12/31/24 Range/Units 05:53 05:53 07:01 WBC 27.06 H (4.50-10.00) 10*3/uL RBC 3.57 L (4.10-5.20) 10*6/uL Hgb 10.5 L (12.0-15.0) g/dL Hct 32.5 L (37.2-46.3) % Immature Gran # 0.94 H (0.00-0.04) 10*3/uL Neutrophils # 24.88 H (1.80-7.70) 10*3/uL Lymphocytes # 0.45 L (0.90-5.00) 10*3/uL Eosinophils # 0.00 L (0.04-0.35) 10*3/uL Sodium 135 L (137-145) mmol/L Chloride 97 L (98-107) mmol/L Carbon Dioxide 32 H (22-30) mmol/L BUN 66 H (7-17) mg/dL Creatinine 1.27 H (0.52-1.04) mg/dL Glucose 222 H (74-99) mg/dL POC Glucose (mg/dL) 245 H (70-110) mg/dL 12/31/24 Range/Units 11:55 WBC (4.50-10.00) 10*3/uL RBC (4.10-5.20) 10*6/uL Hgb (12.0-15.0) g/dL Hct (37.2-46.3) % Immature Gran # (0.00-0.04) 10*3/uL Neutrophils # (1.80-7.70) 10*3/uL Lymphocytes # (0.90-5.00) 10*3/uL Eosinophils # (0.04-0.35) 10*3/uL Sodium (137-145) mmol/L Chloride (98-107) mmol/L Carbon Dioxide (22-30) mmol/L BUN (7-17) mg/dL Creatinine (0.52-1.04) mg/dL Glucose (74-99) mg/dL POC Glucose (mg/dL) 484 H (70-110) mg/dL Assessment and Plan (1) Positive blood culture Current Visit: Yes Status: Acute Code(s): R78.81 - BACTEREMIA SNOMED Code(s): 120650729 (2) Leukocytosis Current Visit: Yes Status: Acute Code(s): D72.829 - ELEVATED WHITE BLOOD CELL COUNT, UNSPECIFIED SNOMED Code(s): 401303333 (3) Oropharyngeal candidiasis Current Visit: Yes Status: Acute Code(s): B37.0 - CANDIDAL STOMATITIS SNO MED Code(s): 16429263 Plan: 1patient with a positive blood culture with staph epi which is more likely skin contamination this patient who recently did have a right hip replacement however the right hip surgical site incision is currently healed with no cellulitis and the patient denies having any pain to the right hip area, no need for vancomycin however blood culture has been repeated 2patient presented hospital with increasing shortness of breath and did have a cough question of asthma exacerbation with tracheobronchitis chest x-ray was atypical pneumonia, patient did have a normal procalcitonin antibiotic has been discontinued 3patient white count is slowly trending down, patient did have a repeat procalcitonin of less than 0.20 4patient is currently on Diflucan for possible oropharyngeal candidiasis and will monitor clinical course closely Dictation was produced using [employer] software. please excuse any grammatical, word or spelling errors. Time with Patient: Less than 30
[2024-12-31 16:56] LABS: Glucose,Whole Blood 337 mg/dL (70-110)
[2024-12-31 21:29] LABS: Glucose,Whole Blood 305 mg/dL (70-110)
--- NOTE | 2024-12-31 21:59 | P.PN ---
Subjective Progress Note Date: 12/31/24 Patient is a 74-year-old female with hypertension, hyperlipidemia, DM (insulin- dependent), obesity, CAD status post CABG, ischemic cardiomyopathy (EF 25 to 30% with AICD), asthma, and osteoarthritis here for evaluation of a fall with generalized weakness. Patient reported that she developed shortness of breath, dry cough, chills, bilateral extremity swelling and generalized weakness when she was discharged from rehab on 12/09 from [facility]. She recently had a right direct anterior total hip arthroplasty on 11/24/2024. Since then she has fallen twice at home due to missed steps. She reported that her swelling has improved gradually over the past 2 weeks. On arrival to the ED, she also reported to have altered mental status. She denied chest pain, palpitations, nausea, vomiting, abdominal pain, extremity swelling, focal weakness, recent prolonged travel. On admission: Vitals: Temp 99 Fahrenheit, OR 99, RR 16, BP 114/60, O2 saturation 89% on room air Labs: WBC 17.4, hemoglobin 9.5, sodium 132, potassium 4.4, bicarb 23, BUN 16, creatinine 0.9, glucose 124, lactic acid 1.8, calcium 8.8, phosphorus 2.4, magnesium 1.7, TSH 6.7. Liver enzymes within normal ranges. Troponin negative. proBNP 3700. Urinalysis unremarkable. Cepheid 4 Plex negative. Urine Legionella antigen negative. Imaging: Chest x-ray showed cardiomegaly with prominent pulmonary vasculature and patchy bilateral lung infiltrates. Hip pelvis x-ray showed no acute osseous abnormalities. EKG showed V paced at a rate of 87, no ST-T changes, QTc 446 MS. 12/20/2024 patient seen and examined at bedside. No acute events overnight. Still requiring oxygen support with 2 to 3 L of nasal cannula. Patient has no symptoms or complaints. Labs: WBC 15.9, hemoglobin 9.3, MCV 93.6, platelet count 371,000, sodium 139, potassium 4.2, bicarb 27, BUN 16, creatinine 1.01, glucose 133, calcium 9.1, Pro-Fortino 0.22. Blood cultures positive for staph mecA/C positive. Imaging; chest x-ray independently interpreted showing improving pulmonary infiltrates 12/21/2024 patient seen and examined at bedside. No acute events overnight. Patient still requiring 2-3L oxygen. Labs: WBC 21.16, hemoglobin 9, MCV 92.9, platelet count 408,000, sodium 137, potassium 4.5, bicarb 30, BUN 29, creatinine 1.28, glucose 172, calcium 9.3, BNP 2180. Blood cultures positive for Staphylococcus epidermidis MEC A positive. Repeat CXR shows minimal improvement 12/22/2024 patient seen and examined at bedside. No acute events overnight. Patient still requiring 3 to 4 L oxygen via nasal cannula Labs: WBC 7.29, hemoglobin 9.4, platelet count 386,000, sodium 136, potassium 4.7, bicarb 28, BUN 37, creatinine 1.06, glucose 176, calcium 8.8 Imaging; echocardiogram showed LVEF 40 to 45% with moderate global hypokinesis, mild mitral and tricuspid regurgitation 12/23/2024 patient seen and examined at bedside. No acute events overnight. Patient oxygen requirements are increasing from 5 to 6 L high flow nasal cannula. Still having dry cough. Labs: WBC 7 point 0.6, hemoglobin 9.2, MCV 93, platelet count 381,000, sodium 130, potassium 4.4, chloride 102, bicarb 28, BUN 45, creatinine 1.11, glucose 96, calcium 9.1. ABG showed PO2 50 pH 7.42 and pCO2 45 Imaging; chest CT shows marked diffuse scattered groundglass opacities consisten t with pulmonary edema, ARDS or pneumonia, moderate cardiomegaly, 3.4 cm dilation of the main pulmonary artery 12/24/2024 Patient evaluated in follow-up on the medical floor. Patient remains on oxygen support increased up to 10 L high flow cannula with saturations of 90%. patient is currently on a course of IV Solu-Medrol as well as IV Lasix twice daily. She has completed a course of antibiotics. She is also maintained on a fluid restriction. ID and pulmonology are following this patient closely. Blood culture finalized revealing Staphylococcus epidermidis which is felt to be contaminant species 12/25/2024 patient seen and examined at bedside. Patient in the ICU. Requiring high flow nasal cannula rate of 50 FiO2 55% Labs: WBC 17.9, hemoglobin 9.7, MCV 90.8, platelet count 250,000 sodium 137, potassium 4.8, bicarb 31, creatinine, BUN 49, creatinine 1.16, glucose 224, mag 2.2, calcium 9.1. ABG pH 7.46, pCO2 43, bicarb 66 Imaging; chest x-ray showed so far persistent diffuse increased lung markings present 12/26/2024 patient seen and examined at bedside. Still requiring high flow nasal cannula rate of 50 FiO2 60% Labs: WBC 19.5, hemoglobin 10, chloride 97, bicarb 33, potassium 4.2, sodium 137, creatinine 1.07, BUN 54, glucose 280, calcium 9.3, proBNP 1950, Pro-Fortino less than 0.2 Imaging: Chest x-ray showed stable diffuse interstitial infiltrates 12/27/2024 patient seen and examined at bedside. No acute events overnight. Still in the ICU. Still having dry cough. High flow nasal cannula for O2 support flow rate 50 FiO2 60% Labs: WBC 20.3, hemoglobin 10.6, platelet count 370,000, sodium 139, potassium 4.6, bicarb 33, BUN 59, creatinine 0.99, glucose 175, calcium 9.8 Imaging: Chest x-ray today showed stable pulmonary infiltrates 12/28/2024 patient seen and examined at bedside. No acute events overnight. Still in the ICU. Still requiring high flow nasal cannula rate 50 at 50% FiO2 Labs: WBC 19.6, hemoglobin 10.4, sodium 134, potassium 4, bicarb 33, BUN 66, c reatinine 1.12, glucose 205, magnesium 2.3 Imaging: Chest x-ray shows stable diffuse interstitial infiltrates 12/29/2024 patient seen and examined at bedside. No acute events overnight. Still in the ICU. No fevers or chills. O2 requirements decreasing. Labs: WBC 26.03, hemoglobin 10.7, sodium 136, bicarb 34, BUN 63, creatinine 1.11, glucose 185, magnesium 2.4 Imaging: Chest x-ray shows improving diffuse pulmonary infiltrates 12/30/2024 patient seen and examined at bedside. No acute events overnight. Downgraded to stepdown unit Currently on high flow nasal cannula 9 L which has improved. Labs: Sodium 136, potassium 4.7, bicarb 23, BUN 65, creatinine 1.2, glucose 186, calcium 9.4 12/31/2024 Patient is resting in the bed. Awake alert and oriented. Breathing status is better. Currently on 9 L oxygen via nasal cannula. No complaints of chest pain or worsening shortness of breath. Laboratory data showed WBC 27.0 hemoglobin 10.5 and platelets 275. Sodium 135 potassium 5.0 chloride 97 bicarb is 32 BUN 66 and creatinine 1.27 and blood sugar 222. Review of systems: Pertinent positives and negatives as discussed in HPI, a complete review of systems was performed and all other systems are negative. Physical examination: Vital signs reviewed General: non toxic, no distress, appears at stated age, on nasal cannula Derm: no unusual rashes/lesions, warm Head: atraumatic, normocephalic, symmetric Eyes: EOMI, anicteric sclera, pupils equal round reactive to light ENT: Nose and ears atraumatic Neck: No cervical lymphadenopathy, trachea midline, supple Mouth: no lip lesion, mucus membranes moist Cardiovascular: S1S2 reg, no murmur Lungs: CTA bilateral, no rales, no accessory muscle use Abdominal: soft, nondistended, nontender to palpation, no guarding Ext: muscle strength 5 out of 5 in all 4 extremities grossly, no gross muscle atrophy, no contractures, positive dorsalis pedis pulse bilateral, no edema Neuro: CN II-XI grossly intact, no gross focal neuro deficits Psych: Alert and oriented x 3, appropriate affect and mood Assessment/Plan: The patient is admitted with an anticipated greater than 2 midnight stay for gogo luation of acute respiratory failure due to HFrEF exacerbation with concern for ARDS Active: #. Acute hypoxic respiratory failure, HFrEF exacerbation vs ARDS vs CAP. Patient is on high flow oxygen. #. Acute asthma exacerbation #. Ischemic cardiomyopathy (EF 40-45% with AICD) #. Leukocytosis, likley steroid induced, r/o other causes -No episodes of fevers overnight. WBC 30 today -Supportive oxygen as needed. Wean off as tolerated. -Chest CT showed diffuse scattered groundglass opacities concerning for pneumonia or ARDS - Completed course of Abx Zithromax p.o and Rocephin IVPB on 12/22 -On Solu-Medrol IV -Placed on Duoneb and Symbicort inhalers -decrease Lasix to 20mg BID IV -Daily weights, Strict InOs, Fluid restriction 1800 -Blood cultures positive for staph mecA/C positive. Likely contaminant. -Repeat blood cultures negative -Monitor CBC and renal fuction -Pulmonology consulted by ED -ID consulted. Procal ordered. Initated Diflucan p.o daily #. Acute Kidney Injury, prerenal - Cr 1.24 --1.27 today -Monitor UO -Avoid nephrotoxic agents. Hold farxiga #. Mechanical Fall secondary to above #. Recent Right anterior total hip arthroplasty Hip pelvis x-ray showed no acute osseous abnormalities. Ortho consulted by ED. No intervention recommended at this time Continue with PO norco prn #. Normocytic anemia at baseline Hemoglobin 10.7 Monitor CBC. Transfuse if Hgb <7. Chronic Conditions: #. Diabetes mellitus, on insulin pump -Hemoglobin A1c 7.3 in November 2024 -Hold home insulin pump as she has run out of home insulin -Glucose Accu-Cheks ACHS -Insulin lispro 15 units AC-TID -Glarigine 25 units BID -Initiate Insulin sliding scale ACHS -Monitor for hypoglycemia -Patient is hyperglycemic due to IV steroids. #. Hypertension #. Hyperlipidemia #. Obesity #. CAD status post CABG #. Osteoarthritis Resume home aspirin, bupropion 150, buspirone 10 mg, carvedilol 12.5 mg, clopidogrel 75 mg, entresto, ezetimibe 10 mg, fluvoxamine 100 mggabapentin 300 mg, Synthroid 125 mcg, rosuvastatin 40 mg, trazodone 50 mg DVT ppx: Heparin subq GI prophylaxis: Pantoprazole 40 mg IVP twice daily CODE STATUS: Full Discussed with: Patient Anticipated discharge place: Home Dictation was produced using [employer] dictation software. please excuse any grammatical, word or spelling errors. Objective - Vital Signs Vital signs: Vital Signs Temp 97.6 F 12/31/24 12:00 Pulse 67 12/31/24 12:00 Resp 18 12/31/24 12:00 BP 126/70 12/31/24 12:00 Pulse Ox 92 L 12/31/24 12:00 FiO2 50 12/28/24 08:31 Intake & Output 12/30/24 12/31/24 12/31/24 18:59 06:59 18:59 Intake Total 960 354 Output Total 700 400 Balance 960 -700 -46 Weight 73 kg Intake: Oral 960 354 Output: Urine 700 400 Other: Voiding Method External Catheter External Catheter Diaper External Catheter # Voids 2 1 - Labs CBC & Chem 7: 12/31/24 05:53 12/31/24 05:53 Labs: Abnormal Lab Results - Last 24 Hours (Table) 12/30/24 12/30/24 12/31/24 Range/Units 17:07 20:11 01:35 WBC (4.50-10.00) 10*3/uL RBC (4.10-5.20) 10*6/uL Hgb (12.0-15.0) g/dL Hct (37.2-46.3) % Immature Gran # (0.00-0.04) 10*3/uL Neutrophils # (1.80-7.70) 10*3/uL Lymphocytes # (0.90-5.00) 10*3/uL Eosinophils # (0.04-0.35) 10*3/uL Sodium (137-145) mmol/L Chloride (98-107) mmol/L Carbon Dioxide (22-30) mmol/L BUN (7-17) mg/dL Creatinine (0.52-1.04) mg/dL Glucose (74-99) mg/dL POC Glucose (mg/dL) 157 H 326 H 317 H (70-110) mg/dL 12/31/24 12/31/24 12/31/24 Range/Units 05:53 05:53 07:01 WBC 27.06 H (4.50-10.00) 10*3/uL RBC 3.57 L (4.10-5.20) 10*6/uL Hgb 10.5 L (12.0-15.0) g/dL Hct 32.5 L (37.2-46.3) % Immature Gran # 0.94 H (0.00-0.04) 10*3/uL Neutrophils # 24.88 H (1.80-7.70) 10*3/uL Lymphocytes # 0.45 L (0.90-5.00) 10*3/uL Eosinophils # 0.00 L (0.04-0.35) 10*3/uL Sodium 135 L (137-145) mmol/L Chloride 97 L (98-107) mmol/L Carbon Dioxide 32 H (22-30) mmol/L BUN 66 H (7-17) mg/dL Creatinine 1.27 H (0.52-1.04) mg/dL Glucose 222 H (74-99) mg/dL POC Glucose (mg/dL) 245 H (70-110) mg/dL 12/31/24 Range/Units 11:55 WBC (4.50-10.00) 10*3/uL RBC (4.10-5.20) 10*6/uL Hgb (12.0-15.0) g/dL Hct (37.2-46.3) % Immature Gran # (0.00-0.04) 10*3/uL Neutrophils # (1.80-7.70) 10*3/uL Lymphocytes # (0.90-5.00) 10*3/uL Eosinophils # (0.04-0.35) 10*3/uL Sodium (137-145) mmol/L Chloride (98-107) mmol/L Carbon Dioxide (22-30) mmol/L BUN (7-17) mg/dL Creatinine (0.52-1.04) mg/dL Glucose (74-99) mg/dL POC Glucose (mg/dL) 484 H (70-110) mg/dL
[2025-01-01 02:08] LABS: Glucose,Whole Blood 240 mg/dL (70-110)
[2025-01-01 06:06] LABS: Glucose,Whole Blood 176 mg/dL (70-110)
[2025-01-01 06:40] LABS: Basophils # (A) 0.04 10*3/uL (0.00-0.10); Basophils % (A) 0.2 %; Eosinophils # (A) 0.00 10*3/uL (0.04-0.35); Eosinophils % (A) 0.0 %; HCT 32.2 % (37.2-46.3); HGB 10.3 g/dL (12.0-15.0); Lymphocytes # (A) 0.43 10*3/uL (0.90-5.00); Lymphocytes % (A) 1.7 %; MCH 29.0 pg (27.0-32.0); MCHC 32.0 g/dL (32.0-37.0); MCV 90.7 fL (80.0-97.0); Monocytes # (A) 0.64 10*3/uL (0.20-1.00); Monocytes % (A) 2.6 %; Neutrophils # (A) 23.04 10*3/uL (1.80-7.70); Neutrophils % (A) 92.9 %; Platelet Count 253 10*3/uL (140-440); RBC 3.55 10*6/uL (4.10-5.20); RDW 13.9 % (11.5-14.5); WBC 24.79 10*3/uL (4.50-10.00)
[2025-01-01 07:16] LABS: African American GFR (CKD) 64 (>60 ml/min/1.73 sqM); Anion Gap 4 mmol/L; Blood Urea Nitrogen 60 mg/dL (7-17); Calcium 9.5 mg/dL (8.4-10.2); Carbon Dioxide 33 mmol/L (22-30); Chloride 99 mmol/L (98-107); Glucose 172 mg/dL (74-99); Non-African American GFR(CKD) 56 (>60 ml/min/1.73 sqM); Potassium 5.1 mmol/L (3.5-5.1); Sodium 136 mmol/L (137-145)
--- NOTE | 2025-01-01 07:40 | XR ---
EXAMINATION TYPE: XR chest 1V portable DATE OF EXAM: 01/01/2025 6:59 AM COMPARISON: 12/29/2024 CLINICAL INDICATION: Female, 74 years old with history of CHF, , FINDINGS: Left anterior chest wall ICD generator with right atrial, right ventricular, and coronary sinus leads . Median sternotomy wires are present with post-CABG clips. Heart mildly enlarged. Diffuse interstiti al and patchy airspace opacities persist, stable to minimally increased in the interval. IMPRESSION: Similar to minimally worsened pulmonary edema. [facility], , 01/01/2025 7:38 AM
[2025-01-01 11:23] LABS: Glucose,Whole Blood 473 mg/dL (70-110)
[2025-01-01] MEDS: INSULIN LISPRO (HumaLOG) 100 UNIT/ML 10 mL VL SQ SCH (13:05)
[2025-01-01] MEDS: INSULIN LISPRO (HumaLOG) 100 UNIT/ML 10 mL VL SQ ONE (13:14)
[2025-01-01] MEDS: NYSTATIN 100,000 UNIT/ML SUSP 500,000 UNIT/5 ML CUP PO SCH (13:55)
--- NOTE | 2025-01-01 15:26 | P.PN ---
Subjective Progress Note Date: 01/01/25 Patient is a 74-year-old female with hypertension, hyperlipidemia, DM (insulin- dependent), obesity, CAD status post CABG, ischemic cardiomyopathy (EF 25 to 30% with AICD), asthma, and osteoarthritis here for evaluation of a fall with generalized weakness. Patient reported that she developed shortness of breath, dry cough, chills, bilateral extremity swelling and generalized weakness when she was discharged from rehab on 12/09 from [facility]. She recently had a right direct anterior total hip arthroplasty on 11/24/2024. Since then she has fallen twice at home due to missed steps. She reported that her swelling has improved gradually over the past 2 weeks. On arrival to the ED, she also reported to have altered mental status. She denied chest pain, palpitations, nausea, vomiting, abdominal pain, extremity swelling, focal weakness, recent prolonged travel. On admission: Vitals: Temp 99 Fahrenheit, NM 99, RR 16, BP 114/60, O2 saturation 89% on room air Labs: WBC 17.4, hemoglobin 9.5, sodium 132, potassium 4.4, bicarb 23, BUN 16, creatinine 0.9, glucose 124, lactic acid 1.8, calcium 8.8, phosphorus 2.4, magnesium 1.7, TSH 6.7. Liver enzymes within normal ranges. Troponin negative. proBNP 3700. Urinalysis unremarkable. Cepheid 4 Plex negative. Urine Legionella antigen negative. Imaging: Chest x-ray showed cardiomegaly with prominent pulmonary vasculature and patchy bilateral lung infiltrates. Hip pelvis x-ray showed no acute osseous abnormalities. EKG showed V paced at a rate of 87, no ST-T changes, QTc 446 MS. 12/20/2024 patient seen and examined at bedside. No acute events overnight. Still requiring oxygen support with 2 to 3 L of nasal cannula. Patient has no symptoms or complaints. Labs: WBC 15.9, hemoglobin 9.3, MCV 93.6, platelet count 371,000, sodium 139, potassium 4.2, bicarb 27, BUN 16, creatinine 1.01, glucose 133, calcium 9.1, Pro-Fortino 0.22. Blood cultures positive for staph mecA/C positive. Imaging; chest x-ray independently interpreted showing improving pulmonary infiltrates 12/21/2024 patient seen and examined at bedside. No acute events overnight. Patient still requiring 2-3L oxygen. Labs: WBC 21.16, hemoglobin 9, MCV 92.9, platelet count 408,000, sodium 137, potassium 4.5, bicarb 30, BUN 29, creatinine 1.28, glucose 172, calcium 9.3, BNP 2180. Blood cultures positive for Staphylococcus epidermidis MEC A positive. Repeat CXR shows minimal improvement 12/22/2024 patient seen and examined at bedside. No acute events overnight. Patient still requiring 3 to 4 L oxygen via nasal cannula Labs: WBC 7.29, hemoglobin 9.4, platelet count 386,000, sodium 136, potassium 4.7, bicarb 28, BUN 37, creatinine 1.06, glucose 176, calcium 8.8 Imaging; echocardiogram showed LVEF 40 to 45% with moderate global hypokinesis, mild mitral and tricuspid regurgitation 12/23/2024 patient seen and examined at bedside. No acute events overnight. Patient oxygen requirements are increasing from 5 to 6 L high flow nasal cannula. Still having dry cough. Labs: WBC 7 point 0.6, hemoglobin 9.2, MCV 93, platelet count 381,000, sodium 130, potassium 4.4, chloride 102, bicarb 28, BUN 45, creatinine 1.11, glucose 96, calcium 9.1. ABG showed PO2 50 pH 7.42 and pCO2 45 Imaging; chest CT shows marked diffuse scattered groundglass opacities consisten t with pulmonary edema, ARDS or pneumonia, moderate cardiomegaly, 3.4 cm dilation of the main pulmonary artery 12/24/2024 Patient evaluated in follow-up on the medical floor. Patient remains on oxygen support increased up to 10 L high flow cannula with saturations of 90%. patient is currently on a course of IV Solu-Medrol as well as IV Lasix twice daily. She has completed a course of antibiotics. She is also maintained on a fluid restriction. ID and pulmonology are following this patient closely. Blood culture finalized revealing Staphylococcus epidermidis which is felt to be contaminant species 12/25/2024 patient seen and examined at bedside. Patient in the ICU. Requiring high flow nasal cannula rate of 50 FiO2 55% Labs: WBC 17.9, hemoglobin 9.7, MCV 90.8, platelet count 250,000 sodium 137, potassium 4.8, bicarb 31, creatinine, BUN 49, creatinine 1.16, glucose 224, mag 2.2, calcium 9.1. ABG pH 7.46, pCO2 43, bicarb 66 Imaging; chest x-ray showed so far persistent diffuse increased lung markings present 12/26/2024 patient seen and examined at bedside. Still requiring high flow nasal cannula rate of 50 FiO2 60% Labs: WBC 19.5, hemoglobin 10, chloride 97, bicarb 33, potassium 4.2, sodium 137, creatinine 1.07, BUN 54, glucose 280, calcium 9.3, proBNP 1950, Pro-Fortino less than 0.2 Imaging: Chest x-ray showed stable diffuse interstitial infiltrates 12/27/2024 patient seen and examined at bedside. No acute events overnight. Still in the ICU. Still having dry cough. High flow nasal cannula for O2 support flow rate 50 FiO2 60% Labs: WBC 20.3, hemoglobin 10.6, platelet count 370,000, sodium 139, potassium 4.6, bicarb 33, BUN 59, creatinine 0.99, glucose 175, calcium 9.8 Imaging: Chest x-ray today showed stable pulmonary infiltrates 12/28/2024 patient seen and examined at bedside. No acute events overnight. Still in the ICU. Still requiring high flow nasal cannula rate 50 at 50% FiO2 Labs: WBC 19.6, hemoglobin 10.4, sodium 134, potassium 4, bicarb 33, BUN 66, c reatinine 1.12, glucose 205, magnesium 2.3 Imaging: Chest x-ray shows stable diffuse interstitial infiltrates 12/29/2024 patient seen and examined at bedside. No acute events overnight. Still in the ICU. No fevers or chills. O2 requirements decreasing. Labs: WBC 26.03, hemoglobin 10.7, sodium 136, bicarb 34, BUN 63, creatinine 1.11, glucose 185, magnesium 2.4 Imaging: Chest x-ray shows improving diffuse pulmonary infiltrates 12/30/2024 patient seen and examined at bedside. No acute events overnight. Downgraded to stepdown unit Currently on high flow nasal cannula 9 L which has improved. Labs: Sodium 136, potassium 4.7, bicarb 23, BUN 65, creatinine 1.2, glucose 186, calcium 9.4 12/31/2024 Patient is resting in the bed. Awake alert and oriented. Breathing status is better. Currently on 9 L oxygen via nasal cannula. No complaints of chest pain or worsening shortness of breath. Laboratory data showed WBC 27.0 hemoglobin 10.5 and platelets 275. Sodium 135 potassium 5.0 chloride 97 bicarb is 32 BUN 66 and creatinine 1.27 and blood sugar 222. 01/01/2025 patient seen and examined at bedside. No new complaints. Still currently on high flow nasal cannula 8 L for O2 support Labs: WBC 24.7, hemoglobin 10.3, sodium 136, potassium 5.1, bicarb 23, BUN 60, creatinine 1.01, glucose 172 Imaging: Chest x-ray today showed persistent pulmonary diffuse interstitial infiltrates Review of systems: Pertinent positives and negatives as discussed in HPI, a complete review of systems was performed and all other systems are negative. Physical examination: Vital signs reviewed General: non toxic, no distress, appears at stated age, on nasal cannula Derm: no unusual rashes/lesions, warm Head: atraumatic, normocephalic, symmetric Eyes: EOMI, anicteric sclera, pupils equal round reactive to light ENT: Nose and ears atraumatic Neck: No cervical lymphadenopathy, trachea midline, supple Mouth: no lip lesion, mucus membranes moist Cardiovascular: S1S2 reg, no murmur Lungs: CTA bilateral, no rales, no accessory muscle use Abdominal: soft, nondistended, nontender to palpation, no guarding Ext: muscle strength 5 out of 5 in all 4 extremities grossly, no gross muscle atrophy, no contractures, positive dorsalis pedis pulse bilateral, no edema Neuro: CN II-XI grossly intact, no gross focal neuro deficits Psych: Alert and oriented x 3, appropriate affect and mood Assessment/Plan: The patient is admitted with an anticipated greater than 2 midnight stay for evaluation of acute respiratory failure due to HFrEF exacerbation with concern for ARDS Active: #. Acute hypoxic respiratory failure, HFrEF exacerbation vs ARDS vs CAP. [place] ent is on high flow oxygen. #. Acute asthma exacerbation #. Ischemic cardiomyopathy (EF 40-45% with AICD) #. Leukocytosis, likley steroid induced, r/o other causes -No episodes of fevers overnight. WBC 24.79 today -Supportive oxygen as needed. Wean off as tolerated. -Chest CT showed diffuse scattered groundglass opacities concerning for pneumonia or ARDS - Completed course of Abx Zithromax p.o and Rocephin IVPB on 12/22 -On Solu-Medrol IV -Placed on Duoneb and Symbicort inhalers -Switch lasix to 20mg p.o daily -Daily weights, Strict InOs, Fluid restriction 1800 -Blood cultures positive for staph mecA/C positive. Likely contaminant. -Repeat blood cultures negative -Monitor CBC and renal fuction -Pulmonology consulted by ED -ID consulted. Procal ordered. Initated Diflucan p.o daily #. Acute Kidney Injury, prerenal - Cr 1.24 --1.27 today -Monitor UO -Avoid nephrotoxic agents. Hold farxiga #. Mechanical Fall secondary to above #. Recent Right anterior total hip arthroplasty Hip pelvis x-ray showed no acute osseous abnormalities. Ortho consulted by ED. No intervention recommended at this time Continue with PO norco prn #. Normocytic anemia at baseline Hemoglobin 10.3 Monitor CBC. Transfuse if Hgb <7. Chronic Conditions: #. Diabetes mellitus, on insulin pump -Hemoglobin A1c 7.3 in November 2024 -Hold home insulin pump as she has run out of home insulin -Glucose Accu-Cheks ACHS -Insulin lispro 20 units AC-TID -Glarigine 30 units BID -Initiate Insulin sliding scale ACHS -Monitor for hypoglycemia -Patient is hyperglycemic due to IV steroids. #. Hypertension #. Hyperlipidemia #. Obesity #. CAD status post CABG #. Osteoarthritis Resume home aspirin, bupropion 150, buspirone 10 mg, carvedilol 12.5 mg, clopidogrel 75 mg, entresto, ezetimibe 10 mg, fluvoxamine 100 mggabapentin 300 mg, Synthroid 125 mcg, rosuvastatin 40 mg, trazodone 50 mg DVT ppx: Heparin subq GI prophylaxis: Pantoprazole 40 mg IVP twice daily CODE STATUS: Full Discussed with: Patient Anticipated discharge place: Home Zoila Walsh MD PGY-1/[employer] [facility] Dictation was produced using [employer] dictation software. please excuse any grammatical, word or spelling errors. Attestation: I have seen and examined this patient with my resident, assessment and plan discussed with the resident, agree with assessment and plan as written above. Dr. Godfrey Objective - Vital Signs Vital signs: Vital Signs Temp 97.6 F 01/01/25 04:00 Pulse 70 01/01/25 04:00 Resp 20 01/01/25 04:00 BP 130/71 01/01/25 04:00 Pulse Ox 90 L 01/01/25 04:00 FiO2 50 12/28/24 08:31 Intake & Output 12/31/24 01/01/25 01/01/25 18:59 06:59 18:59 Intake Total 576 600 Output Total 1350 1500 Balance -774 -900 Intake: Oral 576 600 Output: Urine 1350 1500 Other: Voiding Method Diaper Diaper External Catheter External Catheter - Labs CBC & Chem 7: 01/01/25 05:57 01/01/25 05:57 Labs: Abnormal Lab Results - Last 24 Hours (Table) 12/31/24 12/31/24 12/31/24 Range/Units 11:55 16:55 21:26 WBC (4.50-10.00) 10*3/uL RBC (4.10-5.20) 10*6/uL Hgb (12.0-15.0) g/dL Hct (37.2-46.3) % Immature Gran # (0.00-0.04) 10*3/uL Neutrophils # (1.80-7.70) 10*3/uL Lymphocytes # (0.90-5.00) 10*3/uL Eosinophils # (0.04-0.35) 10*3/uL Sodium (137-145) mmol/L Carbon Dioxide (22-30) mmol/L BUN (7-17) mg/dL Glucose (74-99) mg/dL POC Glucose (mg/dL) 484 H 337 H 305 H (70-110) mg/dL 01/01/25 01/01/25 01/01/25 Range/Units 02:06 05:57 05:57 WBC 24.79 H (4.50-10.00) 10*3/uL RBC 3.55 L (4.10-5.20) 10*6/uL Hgb 10.3 L (12.0-15.0) g/dL Hct 32.2 L (37.2-46.3) % Immature Gran # 0.64 H (0.00-0.04) 10*3/uL Neutrophils # 23.04 H (1.80-7.70) 10*3/uL Lymphocytes # 0.43 L (0.90-5.00) 10*3/uL Eosinophils # 0.00 L (0.04-0.35) 10*3/uL Sodium 136 L (137-145) mmol/L Carbon Dioxide 33 H (22-30) mmol/L BUN 60 H (7-17) mg/dL Glucose 172 H (74-99) mg/dL POC Glucose (mg/dL) 240 H (70-110) mg/dL 01/01/25 Range/Units 06:03 WBC (4.50-10.00) 10*3/uL RBC (4.10-5.20) 10*6/uL Hgb (12.0-15.0) g/dL Hct (37.2-46.3) % Immature Gran # (0.00-0.04) 10*3/uL Neutrophils # (1.80-7.70) 10*3/uL Lymphocytes # (0.90-5.00) 10*3/uL Eosinophils # (0.04-0.35) 10*3/uL Sodium (137-145) mmol/L Carbon Dioxide (22-30) mmol/L BUN (7-17) mg/dL Glucose (74-99) mg/dL POC Glucose (mg/dL) 176 H (70-110) mg/dL
[2025-01-01 16:30] LABS: Glucose,Whole Blood 268 mg/dL (70-110)
--- NOTE | 2025-01-01 19:04 | P.PN ---
Subjective Progress Note Date: 01/01/25 On 01/01/2025, the patient is being seen for a follow-up. The patient is hypoxic on 8 L of oxygen by nasal cannula. She easily desaturates upon minimal amount of mobility and this was noted while working with physical therapy as the patient was attempted to sit up in a chair and the patient became quite hypoxic where she dropped a pulse ox in the low 70s and the patient required 100% nonrebreather facemask for oxygen supplementation. At that point, I made recommendations to put the patient on a Airvo and she is currently on Airvo 50 L with an FiO2 of 80%. The patient has been in the hospital since 12/19/2024. The patient was initially seen in consult. The patient is known to have coronary disease with previous bypass surgery. She also has history of cardiomyopathy with impaired ejection fraction and she has an AICD in place. Her initial left- ventricular ejection fraction was estimated to be at 25% and the repeat echocardiogram that was done on 12/22/2024 showed some interval improvement in the left ventricular ejection fraction with that was estimated to be at around 40 to 45% and the patient has moderate global hypokinesis and dilated left ventricular size and wall thickness. The patient also has other comorbidities including hypertension, hyperlipidemia, insulin-dependent diabetes mellitus and osteoarthritis. Her condition decompensated after having a right anterior total hip arthroplasty that was done on 11/24/2024. Since then, the patient went to rehabilitation and she presented back to us with hypoxic respiratory failure. CAT scan of the chest was done 12/22/2024 showed diffuse scattered groundglass pulmonary patchy opacities consistent with cardiogenic versus noncardiogenic pulmonary edema/ARDS. Most recent chest x-ray from today still showing diffuse bilateral pulmonary infiltrates. Meanwhile, the patient was subjected to diuretics. She has no significant edema lower extremities. She became prerenal and her current Lasix is at 20 mg p.o. daily. Rest of her medications are essentially unchanged. She is on Symbicort and DuoNeb the right seems around-th e-clock. She remains on Coreg 12.5 mg p.o. twice a day and Lantus insulin 30 units twice daily and NovoLog sign scale coverage. She was started on IV Solu- Medrol 12/29/2024 and currently she is on Solu-Medrol 40 mg every 8 hours. She remains on Entresto. Family is at the bedside. Objective - Vital Signs Vital signs: Vital Signs Temp 97.5 F L 01/01/25 08:54 Pulse 72 01/01/25 12:40 Resp 21 01/01/25 12:34 BP 136/75 01/01/25 12:34 Pulse Ox 92 L 01/01/25 12:34 FiO2 50 12/28/24 08:31 Intake & Output 12/31/24 01/01/25 01/01/25 18:59 06:59 18:59 Intake Total 576 600 240 Output Total 1350 1500 420 Balance -774 -900 -180 Intake: Oral 576 600 240 Output: Urine 1350 1500 420 Other: Voiding Method Diaper Diaper Diaper External Catheter External Catheter External Catheter - Exam No acute distress, oriented 3. Currently on 50 L Airvo with an FiO2 of 80%, she does have some shortness of breath even at rest. HEENT examination is grossly unremarkable. Mucous membranes are moist. No oral lesions. Neck supple. Full range of motion. No adenopathy thyromegaly or neck vein distention. Cardiovascular examination reveals regular rhythm rate. S1-S2 normal. No S3 or S4. No discernible murmur noted. Lungs reveal minimal bibasilar crackles. No wheezes. No rhonchi. Breath sounds equal bilaterally. The crackles in the lung bases are essentially coarse. Abdomen soft bowel sounds are heard. No masses or tenderness. Extremities are intact. No cyanosis clubbing or edema. Skin is without rash or lesion. Neurologic examination is brief but nonfocal. - Labs CBC & Chem 7: 01/01/25 05:57 01/01/25 05:57 Labs: Abnormal Lab Results - Last 24 Hours (Table) 12/31/24 12/31/24 01/01/25 Range/Units 16:55 21:26 02:06 WBC (4.50-10.00) 10*3/uL RBC (4.10-5.20) 10*6/uL Hgb (12.0-15.0) g/dL Hct (37.2-46.3) % Immature Gran # (0.00-0.04) 10*3/uL Neutrophils # (1.80-7.70) 10*3/uL Lymphocytes # (0.90-5.00) 10*3/uL Eosinophils # (0.04-0.35) 10*3/uL Sodium (137-145) mmol/L Carbon Dioxide (22-30) mmol/L BUN (7-17) mg/dL Glucose (74-99) mg/dL POC Glucose (mg/dL) 337 H 305 H 240 H (70-110) mg/dL 01/01/25 01/01/25 01/01/25 Range/Units 05:57 05:57 06:03 WBC 24.79 H (4.50-10.00) 10*3/uL RBC 3.55 L (4.10-5.20) 10*6/uL Hgb 10.3 L (12.0-15.0) g/dL Hct 32.2 L (37.2-46.3) % Immature Gran # 0.64 H (0.00-0.04) 10*3/uL Neutrophils # 23.04 H (1.80-7.70) 10*3/uL Lymphocytes # 0.43 L (0.90-5.00) 10*3/uL Eosinophils # 0.00 L (0.04-0.35) 10*3/uL Sodium 136 L (137-145) mmol/L Carbon Dioxide 33 H (22-30) mmol/L BUN 60 H (7-17) mg/dL Glucose 172 H (74-99) mg/dL POC Glucose (mg/dL) 176 H (70-110) mg/dL 01/01/25 Range/Units 11:21 WBC (4.50-10.00) 10*3/uL RBC (4.10-5.20) 10*6/uL Hgb (12.0-15.0) g/dL Hct (37.2-46.3) % Immature Gran # (0.00-0.04) 10*3/uL Neutrophils # (1.80-7.70) 10*3/uL Lymphocytes # (0.90-5.00) 10*3/uL Eosinophils # (0.04-0.35) 10*3/uL Sodium (137-145) mmol/L Carbon Dioxide (22-30) mmol/L BUN (7-17) mg/dL Glucose (74-99) mg/dL POC Glucose (mg/dL) 473 H (70-110) mg/dL Assessment and Plan Plan: Acute hypoxic respiratory failure with worsening in the patient's oxygenation and the patient is currently on Airvo at 50 L with FiO2 of 80%. Chest x-ray is showing diffuse interstitial pulmonary infiltrates consistent with noncardiogenic pulmonary edema/ARDS. Patient is currently on IV Solu-Medrol. CHF seems to be quite well optimized and the patient's most recent echocardiogram showed an ejection fraction of 40 to 45%. Acute febrile illness, recovered. Acute leukocytosis, gradually improving History of right direct anterior total hip arthroplasty on November 24, 2024 Chronic anemia and hemoglobin remained stable Hypertension. Hyperlipidemia. Insulin-dependent diabetes mellitus. Obesity with a BMI of 35.4 kg/m. Coronary artery disease, with history of CABG and cardiac stents. History of ischemic cardiomyopathy with an ejection fraction improved to 40 to 45%. Implanted AICD/pacemaker. Hypothyroidism. Anxiety/depression. Plan: Patient has already been placed on Airvo 50 L and FiO2 of 80% Continue gentle diuresis to maintain negative fluid balance Continue IV Solu-Medrol Add empiric antibiotic coverage with IV cefepime Check procalcitonin level Check proBNP level Daily chest x-rays Prognosis poor based on the above. Exact etiology for his acute lung injury is not clear. Could have been related to an aspiration pneumonia. Echocardiogram was noted Rest of the comorbidities are stable we will continue to follow make further recommendations based on her progress. Time with Patient: Greater than 30
[2025-01-01] MEDS ORDERED: ZINC OXIDE PASTE (Z-GUARD) 1 APPLIC TOPICAL PRN (19:22)
[2025-01-01 20:19] LABS: Glucose,Whole Blood 256 mg/dL (70-110)
[2025-01-01] MEDS: INSULIN GLARGINE (LANTUS) 100 UNIT/ML SYR SQ SCH (21:13)
[2025-01-01] MEDS: CEFEPIME 2 GM in SODIUM CHLORIDE 0.9% 100 ML IVPB SCH (21:39)
[2025-01-02 01:51] LABS: Glucose,Whole Blood 262 mg/dL (70-110)
[2025-01-02 06:11] LABS: Glucose,Whole Blood 192 mg/dL (70-110)
[2025-01-02 07:03] LABS: Basophils # (A) 0.03 10*3/uL (0.00-0.10); Basophils % (A) 0.1 %; Eosinophils # (A) 0.00 10*3/uL (0.04-0.35); Eosinophils % (A) 0.0 %; HCT 31.8 % (37.2-46.3); HGB 10.1 g/dL (12.0-15.0); Lymphocytes # (A) 0.41 10*3/uL (0.90-5.00); Lymphocytes % (A) 1.8 %; MCH 28.9 pg (27.0-32.0); MCHC 31.8 g/dL (32.0-37.0); MCV 90.9 fL (80.0-97.0); Monocytes # (A) 0.57 10*3/uL (0.20-1.00); Monocytes % (A) 2.5 %; Neutrophils # (A) 21.34 10*3/uL (1.80-7.70); Neutrophils % (A) 93.5 %; Platelet Count 250 10*3/uL (140-440); RBC 3.50 10*6/uL (4.10-5.20); RDW 14.2 % (11.5-14.5); WBC 22.83 10*3/uL (4.50-10.00)
--- NOTE | 2025-01-02 07:31 | XR ---
EXAMINATION TYPE: XR chest 1V DATE OF EXAM: 01/02/2025 COMPARISON: 01/01/2025 CLINICAL INDICATION: Female, 74 years old with history of ARDS; shortness of breath TECHNIQUE: Single frontal view of the chest is obtained. FINDINGS: Left anterior chest wall AICD generator with right atrial, right ventricular, and coronary sinus leads. Median sternotomy wires with post-CABG clips. Heart mildly enlarged. Diffuse interstiti al and patchy bilateral opacities persist. Relatively unchanged. Subcutaneous emphysema right base of the neck; etiology unclear. IMPRESSION: 1. Ongoing extensive bilateral patchy airspace disease. 2. New subcutaneous emphysema along the right base of the neck. Etiology unclear. Clinically correlat e. [facility], , 01/02/2025 7:29 AM
[2025-01-02 07:34] LABS: African American GFR (CKD) 64 (>60 ml/min/1.73 sqM); Anion Gap 4 mmol/L; Blood Urea Nitrogen 49 mg/dL (7-17); Calcium 9.4 mg/dL (8.4-10.2); Carbon Dioxide 32 mmol/L (22-30); Chloride 101 mmol/L (98-107); Glucose 144 mg/dL (74-99); Non-African American GFR(CKD) 55 (>60 ml/min/1.73 sqM); Potassium 5.2 mmol/L (3.5-5.1); Sodium 137 mmol/L (137-145)
[2025-01-02] MEDS: FUROSEMIDE 20 MG TAB PO SCH (07:47)
[2025-01-02 11:21] LABS: Glucose,Whole Blood 333 mg/dL (70-110)
--- NOTE | 2025-01-02 15:43 | P.PN ---
Subjective Progress Note Date: 01/01/25 Principal diagnosis: Reason for follow-up is a positive blood culture Patient is a 74-year-old female with a past medical history significant for Asthma, Blood Disorder, Coronary Artery Disease (CAD), Chest Pain / Angina, Heart Failure, Diabetes Mellitus, Eye Disorder, GERD/Reflux, Hyperlipidemia, Hypertension, Myocardial Infarction ([place]), Musculoskeletal Disorder, Osteoarthritis (OA), Renal Disease, Skin Disorder, Supraventricular Tachycardia (SVT), Thyroid Disorder who recently did have a right hip replacement, patient presented the hospital with increasing shortness of breath and cough did have a positive blood culture prompting this consultation. On today's evaluation that is 01/01/2025, patient has been afebrile, patient is breathing slightly comfortably however still requiring 8 L high flow nasal oxygen P denies any chest pain or worsening cough still complaining of some sore throat difficulty swallowing no vomiting or diarrhea. Patient white count is down to 24.79 creatinine is 1.01 Objective - Vital Signs Vital signs: Vital Signs Temp 97.5 F L 01/01/25 08:54 Pulse 72 01/01/25 12:40 Resp 21 01/01/25 12:34 BP 136/75 01/01/25 12:34 Pulse Ox 92 L 01/01/25 12:34 FiO2 50 12/28/24 08:31 Intake & Output 12/31/24 01/01/25 01/01/25 18:59 06:59 18:59 Intake Total 576 600 240 Output Total 1350 1500 420 Balance -774 -900 -180 Intake: Oral 576 600 240 Output: Urine 1350 1500 420 Other: Voiding Method Diaper Diaper Diaper External Catheter External Catheter External Catheter - Exam GENERAL DESCRIPTION: An elderly female up in the bed in no distress RESPIRATORY SYSTEM: Unlabored breathing , decreased breath sounds at bases HEART: S1 S2 regular rate and rhythm , ABDOMEN: Soft , no tenderness EXTREMITIES: No edema feet - Labs CBC & Chem 7: 01/02/25 06:24 01/02/25 06:24 Labs: Abnormal Lab Results - Last 24 Hours (Table) 12/31/24 12/31/24 01/01/25 Range/Units 16:55 21:26 02:06 WBC (4.50-10.00) 10*3/uL RBC (4.10-5.20) 10*6/uL Hgb (12.0-15.0) g/dL Hct (37.2-46.3) % Immature Gran # (0.00-0.04) 10*3/uL Neutrophils # (1.80-7.70) 10*3/uL Lymphocytes # (0.90-5.00) 10*3/uL Eosinophils # (0.04-0.35) 10*3/uL Sodium (137-145) mmol/L Carbon Dioxide (22-30) mmol/L BUN (7-17) mg/dL Glucose (74-99) mg/dL POC Glucose (mg/dL) 337 H 305 H 240 H (70-110) mg/dL 01/01/25 01/01/25 01/01/25 Range/Units 05:57 05:57 06:03 WBC 24.79 H (4.50-10.00) 10*3/uL RBC 3.55 L (4.10-5.20) 10*6/uL Hgb 10.3 L (12.0-15.0) g/dL Hct 32.2 L (37.2-46.3) % Immature Gran # 0.64 H (0.00-0.04) 10*3/uL Neutrophils # 23.04 H (1.80-7.70) 10*3/uL Lymphocytes # 0.43 L (0.90-5.00) 10*3/uL Eosinophils # 0.00 L (0.04-0.35) 10*3/uL Sodium 136 L (137-145) mmol/L Carbon Dioxide 33 H (22-30) mmol/L BUN 60 H (7-17) mg/dL Glucose 172 H (74-99) mg/dL POC Glucose (mg/dL) 176 H (70-110) mg/dL 01/01/25 Range/Units 11:21 WBC (4.50-10.00) 10*3/uL RBC (4.10-5.20) 10*6/uL Hgb (12.0-15.0) g/dL Hct (37.2-46.3) % Immature Gran # (0.00-0.04) 10*3/uL Neutrophils # (1.80-7.70) 10*3/uL Lymphocytes # (0.90-5.00) 10*3/uL Eosinophils # (0.04-0.35) 10*3/uL Sodium (137-145) mmol/L Carbon Dioxide (22-30) mmol/L BUN (7-17) mg/dL Glucose (74-99) mg/dL POC Glucose (mg/dL) 473 H (70-110) mg/dL Assessment and Plan (1) Positive blood culture Current Visit: Yes Status: Acute Code(s): R78.81 - BACTEREMIA SNOMED Code(s): 028447845 (2) Leukocytosis Current Visit: Yes Status: Acute Code(s): D72.829 - ELEVATED WHITE BLOOD CELL COUNT, UNSPECIFIED SNOMED Code(s): 344201377 (3) Oropharyngeal candidiasis Current Visit: Yes Status: Acute Code(s): B37.0 - CANDIDAL STOMATITIS SNOMED Code(s): 26703971 Plan: 1patient with a positive blood culture with staph epi which is more likely skin contamination this patient who recently did have a right hip replacement however the right hip surgical site incision is currently healed with no cellulitis and the patient denies having any pain to the right hip area, no need for vancomycin however blood culture has been repeated 2patient presented hospital with increasing shortness of breath and did have a cough question of asthma exacerbation with tracheobronchitis chest x-ray was atypical pneumonia, patient did have a normal procalcitonin antibiotic has been discontinued 3patient white count is slowly trending down, patient did have a repeat procalcitonin of less than 0.20 4patient still complaining of some sore throat and difficulty swallowing concerning for oropharyngeal candidiasis to continue with the Diflucan we will add nystatin swish and swallow Dictation was produced using [employer] dictation software. please excuse any grammatical, word or spelling errors. Time with Patient: Less than 30
--- NOTE | 2025-01-02 15:44 | P.PN ---
Subjective Progress Note Date: 01/02/25 Principal diagnosis: Reason for follow-up is a positive blood culture Patient is a 74-year-old female with a past medical history significant for Asthma, Blood Disorder, Coronary Artery Disease (CAD), Chest Pain / Angina, Heart Failure, Diabetes Mellitus, Eye Disorder, GERD/Reflux, Hyperlipidemia, Hypertension, Myocardial Infarction ([place]), Musculoskeletal Disorder, Osteoarthritis (OA), Renal Disease, Skin Disorder, Supraventricular Tachycardia (SVT), Thyroid Disorder who recently did have a right hip replacement, patient presented the hospital with increasing shortness of breath and cough did have a positive blood culture prompting this consultation. On today's evaluation that is 01/02/2025, Patient is afebrile this morning patient denies having any chest pain still shortness of breath on minimal exertion and is requiring high flow nasal cannula oxygen flow denies any worsening cough or sputum production no abdominal pain still complaining of sore throat. The patient white count is down to 22.83 creatinine 1.02 Objective - Vital Signs Vital signs: Vital Signs Temp 98.3 F 01/02/25 03:34 Pulse 68 01/02/25 13:37 Resp 18 01/02/25 12:24 BP 140/66 01/02/25 12:24 Pulse Ox 98 01/02/25 12:24 FiO2 60 01/02/25 10:46 Intake & Output 01/01/25 01/02/25 01/02/25 18:59 06:59 18:59 Intake Total 240 550 140 Output Total 1120 600 400 Balance -880 -50 -260 Weight 72.5 kg Intake: IV 10 20 Invasive Line 4 10 20 Oral 240 540 120 Output: Urine 1120 600 400 Other: Voiding Method Diaper External Catheter External Catheter External Catheter # Voids 1 # Bowel Movements 1 - Exam GENERAL DESCRIPTION: An elderly female up in the bed in no distress RESPIRATORY SYSTEM: Unlabored breathing , decreased breath sounds at bases HEART: S1 S2 regular rate and rhythm , ABDOMEN: Soft , no tenderness EXTREMITIES: No edema feet - Labs CBC & Chem 7: 01/02/25 06:24 01/02/25 06:24 Labs: Abnormal Lab Results - Last 24 Hours (Table) 01/01/25 01/01/25 01/02/25 Range/Units 16:28 20:16 01:49 WBC (4.50-10.00) 10*3/uL RBC (4.10-5.20) 10*6/uL Hgb (12.0-15.0) g/dL Hct (37.2-46.3) % MCHC (32.0-37.0) g/dL Immature Gran # (0.00-0.04) 10*3/uL Neutrophils # (1.80-7.70) 10*3/uL Lymphocytes # (0.90-5.00) 10*3/uL Eosinophils # (0.04-0.35) 10*3/uL Potassium (3.5-5.1) mmol/L Carbon Dioxide (22-30) mmol/L BUN (7-17) mg/dL Glucose (74-99) mg/dL POC Glucose (mg/dL) 268 H 256 H 262 H (70-110) mg/dL 01/02/25 01/02/25 01/02/25 Range/Units 06:09 06:24 06:24 WBC 22.83 H (4.50-10.00) 10*3/uL RBC 3.50 L (4.10-5.20) 10*6/uL Hgb 10.1 L (12.0-15.0) g/dL Hct 31.8 L (37.2-46.3) % MCHC 31.8 L (32.0-37.0) g/dL Immature Gran # 0.48 H (0.00-0.04) 10*3/uL Neutrophils # 21.34 H (1.80-7.70) 10*3/uL Lymphocytes # 0.41 L (0.90-5.00) 10*3/uL Eosinophils # 0.00 L (0.04-0.35) 10*3/uL Potassium 5.2 H (3.5-5.1) mmol/L Carbon Dioxide 32 H (22-30) mmol/L BUN 49 H (7-17) mg/dL Glucose 144 H (74-99) mg/dL POC Glucose (mg/dL) 192 H (70-110) mg/dL 01/02/25 Range/Units 11:19 WBC (4.50-10.00) 10*3/uL RBC (4.10-5.20) 10*6/uL Hgb (12.0-15.0) g/dL Hct (37.2-46.3) % MCHC (32.0-37.0) g/dL Immature Gran # (0.00-0.04) 10*3/uL Neutrophils # (1.80-7.70) 10*3/uL Lymphocytes # (0.90-5.00) 10*3/uL Eosinophils # (0.04-0.35) 10*3/uL Potassium (3.5-5.1) mmol/L Carbon Dioxide (22-30) mmol/L BUN (7-17) mg/dL Glucose (74-99) mg/dL POC Glucose (mg/dL) 333 H (70-110) mg/dL Assessment and Plan (1) Positive blood culture Current Visit: Yes Status: Acute Code(s): R78.81 - BACTEREMIA SNOMED Code(s): 870064428 (2) Leukocytosis Current Visit: Yes Status: Acute Code(s): D72.829 - ELEVATED WHITE BLOOD CELL COUNT, UNSPECIFIED SNOMED Code(s): 560030144 (3) Oropharyngeal candidiasis Current Visit: Yes Status: Acute Code(s): B37.0 - CANDIDAL STOMATITIS SNOMED Code(s): 68947706 Plan: 1patient with a positive blood culture with staph epi which is more likely skin contamination this patient who recently did have a right hip replacement however the right hip surgical site incision is currently healed with no cellulitis and the patient denies having any pain to the right hip area, no need for vancomycin however blood culture has been repeated 2patient presented hospital with increasing shortness of breath and did have a cough question of asthma exacerbation with tracheobronchitis chest x-ray was atypical pneumonia, patient did have a normal procalcitonin antibiotic has been discontinued 3patient has been complaining of sore throat and difficulty swallowing concerning for oropharyngeal candidiasis being treated with Diflucan and nyst atin swish and swallow, the patient white count is trending down Dictation was produced using [employer] software. please excuse any grammatical, word or spelling errors. Time with Patient: Less than 30
--- NOTE | 2025-01-02 15:52 | P.PN ---
Subjective Progress Note Date: 01/02/25 Patient is a 74-year-old female with hypertension, hyperlipidemia, DM (insulin- dependent), obesity, CAD status post CABG, ischemic cardiomyopathy (EF 25 to 30% with AICD), asthma, and osteoarthritis here for evaluation of a fall with generalized weakness. Patient reported that she developed shortness of breath, dry cough, chills, bilateral extremity swelling and generalized weakness when she was discharged from rehab on 12/09 from [facility]. She recently had a right direct anterior total hip arthroplasty on 11/24/2024. Since then she has fallen twice at home due to missed steps. She reported that her swelling has improved gradually over the past 2 weeks. On arrival to the ED, she also reported to have altered mental status. She denied chest pain, palpitations, nausea, vomiting, abdominal pain, extremity swelling, focal weakness, recent prolonged travel. On admission: Vitals: Temp 99 Fahrenheit, [place] 99, RR 16, BP 114/60, O2 saturation 89% on room air Labs: WBC 17.4, hemoglobin 9.5, sodium 132, potassium 4.4, bicarb 23, BUN 16, creatinine 0.9, glucose 124, lactic acid 1.8, calcium 8.8, phosphorus 2.4, magnesium 1.7, TSH 6.7. Liver enzymes within normal ranges. Troponin negative. proBNP 3700. Urinalysis unremarkable. Cepheid 4 Plex negative. Urine Legionella antigen negative. Imaging: Chest x-ray showed cardiomegaly with prominent pulmonary vasculature and patchy bilateral lung infiltrates. Hip pelvis x-ray showed no acute osseous abnormalities. EKG showed V paced at a rate of 87, no ST-T changes, QTc 446 MS. 12/20/2024 patient seen and examined at bedside. No acute events overnight. Still requiring oxygen support with 2 to 3 L of nasal cannula. Patient has no symptoms or complaints. Labs: WBC 15.9, hemoglobin 9.3, MCV 93.6, platelet count 371,000, sodium 139, potassium 4.2, bicarb 27, BUN 16, creatinine 1.01, glucose 133, calcium 9.1, Pro-Fortino 0.22. Blood cultures positive for staph mecA/C positive. Imaging; chest x-ray independently interpreted showing improving pulmonary infiltrates 12/21/2024 patient seen and examined at bedside. No acute events overnight. Patient still requiring 2-3L oxygen. Labs: WBC 21.16, hemoglobin 9, MCV 92.9, platelet count 408,000, sodium 137, potassium 4.5, bicarb 30, BUN 29, creatinine 1.28, glucose 172, calcium 9.3, BNP 2180. Blood cultures positive for Staphylococcus epidermidis MEC A positive. Repeat CXR shows minimal improvement 12/22/2024 patient seen and examined at bedside. No acute events overnight. Patient still requiring 3 to 4 L oxygen via nasal cannula Labs: WBC 7.29, hemoglobin 9.4, platelet count 386,000, sodium 136, potassium 4.7, bicarb 28, BUN 37, creatinine 1.06, glucose 176, calcium 8.8 Imaging; echocardiogram showed LVEF 40 to 45% with moderate global hypokinesis, mild mitral and tricuspid regurgitation 12/23/2024 patient seen and examined at bedside. No acute events overnight. Patient oxygen requirements are increasing from 5 to 6 L high flow nasal cannula. Still having dry cough. Labs: WBC 7 point 0.6, hemoglobin 9.2, MCV 93, platelet count 381,000, sodium 130, potassium 4.4, chloride 102, bicarb 28, BUN 45, creatinine 1.11, glucose 96, calcium 9.1. ABG showed PO2 50 pH 7.42 and pCO2 45 Imaging; chest CT shows marked diffuse scattered groundglass opacities consisten t with pulmonary edema, ARDS or pneumonia, moderate cardiomegaly, 3.4 cm dilation of the main pulmonary artery 12/24/2024 Patient evaluated in follow-up on the medical floor. Patient remains on oxygen support increased up to 10 L high flow cannula with saturations of 90%. patient is currently on a course of IV Solu-Medrol as well as IV Lasix twice daily. She has completed a course of antibiotics. She is also maintained on a fluid restriction. ID and pulmonology are following this patient closely. Blood culture finalized revealing Staphylococcus epidermidis which is felt to be contaminant species 12/25/2024 patient seen and examined at bedside. Patient in the ICU. Requiring high flow nasal cannula rate of 50 FiO2 55% Labs: WBC 17.9, hemoglobin 9.7, MCV 90.8, platelet count 250,000 sodium 137, potassium 4.8, bicarb 31, creatinine, BUN 49, creatinine 1.16, glucose 224, mag 2.2, calcium 9.1. ABG pH 7.46, pCO2 43, bicarb 66 Imaging; chest x-ray showed so far persistent diffuse increased lung markings present 12/26/2024 patient seen and examined at bedside. Still requiring high flow nasal cannula rate of 50 FiO2 60% Labs: WBC 19.5, hemoglobin 10, chloride 97, bicarb 33, potassium 4.2, sodium 137, creatinine 1.07, BUN 54, glucose 280, calcium 9.3, proBNP 1950, Pro-Fortino less than 0.2 Imaging: Chest x-ray showed stable diffuse interstitial infiltrates 12/27/2024 patient seen and examined at bedside. No acute events overnight. Still in the ICU. Still having dry cough. High flow nasal cannula for O2 support flow rate 50 FiO2 60% Labs: WBC 20.3, hemoglobin 10.6, platelet count 370,000, sodium 139, potassium 4.6, bicarb 33, BUN 59, creatinine 0.99, glucose 175, calcium 9.8 Imaging: Chest x-ray today showed stable pulmonary infiltrates 12/28/2024 patient seen and examined at bedside. No acute events overnight. Still in the ICU. Still requiring high flow nasal cannula rate 50 at 50% FiO2 Labs: WBC 19.6, hemoglobin 10.4, sodium 134, potassium 4, bicarb 33, BUN 66, c reatinine 1.12, glucose 205, magnesium 2.3 Imaging: Chest x-ray shows stable diffuse interstitial infiltrates 12/29/2024 patient seen and examined at bedside. No acute events overnight. Still in the ICU. No fevers or chills. O2 requirements decreasing. Labs: WBC 26.03, hemoglobin 10.7, sodium 136, bicarb 34, BUN 63, creatinine 1.11, glucose 185, magnesium 2.4 Imaging: Chest x-ray shows improving diffuse pulmonary infiltrates 12/30/2024 patient seen and examined at bedside. No acute events overnight. Downgraded to stepdown unit Currently on high flow nasal cannula 9 L which has improved. Labs: Sodium 136, potassium 4.7, bicarb 23, BUN 65, creatinine 1.2, glucose 186, calcium 9.4 12/31/2024 Patient is resting in the bed. Awake alert and oriented. Breathing status is better. Currently on 9 L oxygen via nasal cannula. No complaints of chest pain or worsening shortness of breath. Laboratory data showed WBC 27.0 hemoglobin 10.5 and platelets 275. Sodium 135 potassium 5.0 chloride 97 bicarb is 32 BUN 66 and creatinine 1.27 and blood sugar 222. 01/01/2025 patient seen and examined at bedside. No new complaints. Still currently on high flow nasal cannula 8 L for O2 support Labs: WBC 24.7, hemoglobin 10.3, sodium 136, potassium 5.1, bicarb 23, BUN 60, creatinine 1.01, glucose 172 Imaging: Chest x-ray today showed persistent pulmonary diffuse interstitial infiltrates 01/02/2025 patient seen and examined at bedside. Patient increased O2 requirements and is currently on Airvo flow 50 FiO2 60% Labs: sodium 136, potassium 5.1 bicarb 33, BUN 60, creatinine 1.01, glucose 172, calcium 9.5 Imaging: Chest x-ray this morning shows ongoing extensive patchy airspace opacities, new subcutaneous emphysema at the right base of the neck Review of systems: Pertinent positives and negatives as discussed in HPI, a complete review of systems was performed and all other systems are negative. Physical examination: Vital signs reviewed General: non toxic, no distress, appears at stated age, on Airvo Derm: no unusual rashes/lesions, warm Head: atraumatic, normocephalic, symmetric Eyes: EOMI, anicteric sclera, pupils equal round reactive to light ENT: Nose and ears atraumatic Neck: No cervical lymphadenopathy, trachea midline, supple, crepitus on palpation of right neck Mouth: no lip lesion, mucus membranes moist Cardiovascular: S1S2 reg, no murmur Lungs: bibasilar fine rales, no accessory muscle use Abdominal: soft, nondistended, nontender to palpation, no guarding Ext: muscle strength 5 out of 5 in all 4 extremities grossly, no gross muscle atrophy, no contractures, positive dorsalis pedis pulse bilateral, no edema Neuro: CN II-XI grossly intact, no gross focal neuro deficits Psych: Alert and oriented x 3, appropriate affect and mood Assessment/Plan: The patient is admitted with an anticipated greater than 2 midnight stay for evaluation of acute respiratory failure due to HFrEF exacerbation with concern for ARDS Active: #. Acute hypoxic respiratory failure, secondary to ARDS, HFrEF exacerbation. #. Acute asthma exacerbation, #. Subcutaneous emphysema #. Ischemic cardiomyopathy (EF 40-45% with AICD) #. Leukocytosis, likley steroid induced, r/o other causes -Chest x-ray showed new subcutaneous emphysema at the right base of the neck. Patient not in distress. Monitor for now -Supportive oxygen as needed. Wean off as tolerated. -Chest CT showed diffuse scattered groundglass opacities concerning for pneumonia or ARDS - Completed course of Abx Zithromax p.o and Rocephin IVPB on 12/22 -On Solu-Medrol IV -Placed on Duoneb and Symbicort inhalers -Switch lasix to 20mg p.o daily -Daily weights, Strict InOs, Fluid restriction 1800 -Blood cultures positive for staph mecA/C positive. Likely contaminant. -Repeat blood cultures negative -Monitor CBC and renal fuction -Pulmonology consulted by ED -ID consulted. Procal negative. Initated Diflucan p.o daily #. Acute Kidney Injury, prerenal - Cr 1.02 -Monitor UO -Avoid nephrotoxic agents. Hold farxiga #. Mechanical Fall secondary to above #. Recent Right anterior total hip arthroplasty Hip pelvis x-ray showed no acute osseous abnormalities. Ortho consulted by ED. No intervention recommended at this time Continue with PO norco prn PT OT consulted and patient would benefit from [facility] or LTAC. SW/CM working on discharge needs #. Normocytic anemia at baseline Monitor CBC. Transfuse if Hgb <7. Chronic Conditions: #. Diabetes mellitus, on insulin pump -Hemoglobin A1c 7.3 in November 2024 -Hold home insulin pump as she has run out of home insulin -Glucose Accu-Cheks ACHS -Insulin lispro 20 units AC-TID -Glarigine 30 units BID -Initiate Insulin sliding scale ACHS -Monitor for hypoglycemia -Patient is hyperglycemic due to IV steroids. #. Hypertension #. Hyperlipidemia #. Obesity #. CAD status post CABG #. Osteoarthritis Resume home aspirin, bupropion 150, buspirone 10 mg, carvedilol 12.5 mg, clopidogrel 75 mg, entresto, ezetimibe 10 mg, fluvoxamine 100 mggabapentin 300 mg, Synthroid 125 mcg, rosuvastatin 40 mg, trazodone 50 mg DVT ppx: Heparin subq GI prophylaxis: Pantoprazole 40 mg IVP twice daily CODE STATUS: Full Discussed with: Patient Anticipated discharge place: Home Zoila Walsh MD PGY-1/Design/Animation Instructor Internal Medicine Dictation was produced using [employer] dictation software. please excuse any grammatical, word or spelling errors. Attestation: I have seen and examined this patient with my resident, assessment and plan discussed with the resident, agree with assessment and plan as written above. Dr. Godfrey Objective - Vital Signs Vital signs: Vital Signs Temp 98.3 F 01/02/25 03:34 Pulse 65 01/02/25 07:38 Resp 18 01/02/25 07:38 BP 100/52 01/02/25 07:38 Pulse Ox 98 01/02/25 07:38 FiO2 60 01/02/25 04:14 Intake & Output 01/01/25 01/02/25 01/02/25 18:59 06:59 18:59 Intake Total 240 550 Output Total 1120 600 Balance -880 -50 Weight 72.5 kg Intake: IV 10 Invasive Line 4 10 Oral 240 540 Output: Urine 1120 600 Other: Voiding Method Diaper External Catheter External Catheter # Voids 1 - Labs CBC & Chem 7: 01/02/25 06:24 01/02/25 06:24 Labs: Abnormal Lab Results - Last 24 Hours (Table) 01/01/25 01/01/25 01/01/25 Range/Units 11:21 16:28 20:16 WBC (4.50-10.00) 10*3/uL RBC (4.10-5.20) 10*6/uL Hgb (12.0-15.0) g/dL Hct (37.2-46.3) % MCHC (32.0-37.0) g/dL Immature Gran # (0.00-0.04) 10*3/uL Neutrophils # (1.80-7.70) 10*3/uL Lymphocytes # (0.90-5.00) 10*3/uL Eosinophils # (0.04-0.35) 10*3/uL Potassium (3.5-5.1) mmol/L Carbon Dioxide (22-30) mmol/L BUN (7-17) mg/dL Glucose (74-99) mg/dL POC Glucose (mg/dL) 473 H 268 H 256 H (70-110) mg/dL 06/24/25 06/24/25 06/24/25 Range/Units 01:49 06:09 06:24 WBC 22.83 H (4.50-10.00) 10*3/uL RBC 3.50 L (4.10-5.20) 10*6/uL Hgb 10.1 L (12.0-15.0) g/dL Hct 31.8 L (37.2-46.3) % MCHC 31.8 L (32.0-37.0) g/dL Immature Gran # 0.48 H (0.00-0.04) 10*3/uL Neutrophils # 21.34 H (1.80-7.70) 10*3/uL Lymphocytes # 0.41 L (0.90-5.00) 10*3/uL Eosinophils # 0.00 L (0.04-0.35) 10*3/uL Potassium (3.5-5.1) mmol/L Carbon Dioxide (22-30) mmol/L BUN (7-17) mg/dL Glucose (74-99) mg/dL POC Glucose (mg/dL) 262 H 192 H (70-110) mg/dL 01/02/25 Range/Units 06:24 WBC (4.50-10.00) 10*3/uL RBC (4.10-5.20) 10*6/uL Hgb (12.0-15.0) g/dL Hct (37.2-46.3) % MCHC (32.0-37.0) g/dL Immature Gran # (0.00-0.04) 10*3/uL Neutrophils # (1.80-7.70) 10*3/uL Lymphocytes # (0.90-5.00) 10*3/uL Eosinophils # (0.04-0.35) 10*3/uL Potassium 5.2 H (3.5-5.1) mmol/L Carbon Dioxide 32 H (22-30) mmol/L BUN 49 H (7-17) mg/dL Glucose 144 H (74-99) mg/dL POC Glucose (mg/dL) (70-110) mg/dL
[2025-01-02 16:39] LABS: Glucose,Whole Blood 303 mg/dL (70-110)
[2025-01-02 20:25] LABS: Glucose,Whole Blood 463 mg/dL (70-110)
--- NOTE | 2025-01-02 22:16 | P.PN ---
Subjective Progress Note Date: 01/02/25 On 01/01/2025, the patient is being seen for a follow-up. The patient is hypoxic on 8 L of oxygen by nasal cannula. She easily desaturates upon minimal amount of mobility and this was noted while working with physical therapy as the patient was attempted to sit up in a chair and the patient became quite hypoxic where she dropped a pulse ox in the low 70s and the patient required 100% nonrebreather facemask for oxygen supplementation. At that point, I made recommendations to put the patient on a Airvo and she is currently on Airvo 50 L with an FiO2 of 80%. The patient has been in the hospital since 12/19/2024. The patient was initially seen in consult. The patient is known to have coronary disease with previous bypass surgery. She also has history of cardiomyopathy with impaired ejection fraction and she has an AICD in place. Her initial left- ventricular ejection fraction was estimated to be at 25% and the repeat echocardiogram that was done on 12/22/2024 showed some interval improvement in the left ventricular ejection fraction with that was estimated to be at around 40 to 45% and the patient has moderate global hypokinesis and dilated left ventricular size and wall thickness. The patient also has other comorbidities including hypertension, hyperlipidemia, insulin-dependent diabetes mellitus and osteoarthritis. Her condition decompensated after having a right anterior total hip arthroplasty that was done on 11/24/2024. Since then, the patient went to rehabilitation and she presented back to us with hypoxic respiratory failure. CAT scan of the chest was done 12/22/2024 showed diffuse scattered groundglass pulmonary patchy opacities consistent with cardiogenic versus noncardiogenic pulmonary edema/ARDS. Most recent chest x-ray from today still showing diffuse bilateral pulmonary infiltrates. Meanwhile, the patient was subjected to diuretics. She has no significant edema lower extremities. She became prerenal and her current Lasix is at 20 mg p.o. daily. Rest of her medications are essentially unchanged. She is on Symbicort and DuoNeb the right seems around-th e-clock. She remains on Coreg 12.5 mg p.o. twice a day and Lantus insulin 30 units twice daily and NovoLog sign scale coverage. She was started on IV Solu- Medrol 12/29/2024 and currently she is on Solu-Medrol 40 mg every 8 hours. She remains on Entresto. Family is at the bedside. On 01/02/2025, the patient is being seen for a follow-up. The patient remains on Airvo at 50 L with an FiO2 of 60%. Seems to be slightly more comfortable compared to yesterday. The patient has an acute lung injury/ARDS picture with diffuse groundglass by the patchy pulmonary infiltrates. Follow-up chest x-ray from today shows ongoing extensive bilateral patchy airspace disease and infiltrates without any significant change. The patient is currently on IV cefepime as an empiric antibiotic coverage and the patient is also being treated with systemic steroids and the patient is currently on IV Solu-Medrol 40 mg every 8 hours. Blood sugars are being managed with Lantus insulin 30 units twice daily and NovoLog 20 units 3 times daily with meals and a sliding scale coverage. The patient is also known to have CHF, impaired LV function maintained on Entresto and Coreg. The patient is also on oral Lasix 20 mg p.o. daily. No other complaints otherwise for now. The white cell count is 22.8, hemoglobin is 10.1 and the platelet count of 250. BUN is 49 with a creatinine of 1.02. Sodium levels at 137 and a potassium level is at 5.2. Denies having any chest pain. Is having episodes of dry cough. Known to have coronary artery disease, diabetes mellitus, hypertension hyperlipidemia in addition to multiple other comorbidities as mentioned in the medical records. Objective - Vital Signs Vital signs: Vital Signs Temp 98.3 F 01/02/25 03:34 Pulse 66 01/02/25 10:59 Resp 18 01/02/25 07:38 BP 100/52 01/02/25 07:38 Pulse Ox 98 01/02/25 07:38 FiO2 60 01/02/25 10:46 Intake & Output 01/01/25 01/02/25 01/02/25 18:59 06:59 18:59 Intake Total 240 550 130 Output Total 1120 600 400 Balance -880 -50 -270 Weight 72.5 kg Intake: IV 10 10 Invasive Line 4 10 10 Oral 240 540 120 Output: Urine 1120 600 400 Other: Voiding Method Diaper External Catheter External Catheter External Catheter # Voids 1 - Exam No acute distress, oriented 3. Currently on 50 L Airvo with an FiO2 of 60 %, she does have some shortness of breath even at rest. Patient also has frequent episodes of a dry cough. HEENT examination is grossly unremarkable. Mucous membranes are moist. No oral lesions. Neck supple. Full range of motion. No adenopathy thyromegaly or neck vein distention. Cardiovascular examination reveals regular rhythm rate. S1-S2 normal. No S3 or S4. No discernible murmur noted. Lungs reveal minimal bibasilar crackles. No wheezes. No rhonchi. Breath sounds equal bilaterally. The crackles in the lung bases are essentially coarse. Abdomen soft bowel sounds are heard. No masses or tenderness. Extremities are intact. No cyanosis clubbing or edema. Skin is without rash or lesion. Neurologic examination is brief but nonfocal. - Labs CBC & Chem 7: 01/02/25 06:01/02/25 06: Labs: Abnormal Lab Results - Last 24 Hours (Table) 01/01/25 01/01/25 01/02/25 Range/Units 16:28 20:16 01:49 WBC (4.50-10.00) 10*3/uL RBC (4.10-5.20) 10*6/uL Hgb (12.0-15.0) g/dL Hct (37.2-46.3) % MCHC (32.0-37.0) g/dL Immature Gran # (0.00-0.04) 10*3/uL Neutrophils # (1.80-7.70) 10*3/uL Lymphocytes # (0.90-5.00) 10*3/uL Eosinophils # (0.04-0.35) 10*3/uL Potassium (3.5-5.1) mmol/L Carbon Dioxide (22-30) mmol/L BUN (7-17) mg/dL Glucose (74-99) mg/dL POC Glucose (mg/dL) 268 H 256 H 262 H (70-110) mg/dL 01/02/25 01/02/25 01/02/25 Range/Units 06:09 06:24 06:24 WBC 22.83 H (4.50-10.00) 10*3/uL RBC 3.50 L (4.10-5.20) 10*6/uL Hgb 10.1 L (12.0-15.0) g/dL Hct 31.8 L (37.2-46.3) % MCHC 31.8 L (32.0-37.0) g/dL Immature Gran # 0.48 H (0.00-0.04) 10*3/uL Neutrophils # 21.34 H (1.80-7.70) 10*3/uL Lymphocytes # 0.41 L (0.90-5.00) 10*3/uL Eosinophils # 0.00 L (0.04-0.35) 10*3/uL Potassium 5.2 H (3.5-5.1) mmol/L Carbon Dioxide 32 H (22-30) mmol/L BUN 49 H (7-17) mg/dL Glucose 144 H (74-99) mg/dL POC Glucose (mg/dL) 192 H (70-110) mg/dL 01/02/25 Range/Units 11:19 WBC (4.50-10.00) 10*3/uL RBC (4.10-5.20) 10*6/uL Hgb (12.0-15.0) g/dL Hct (37.2-46.3) % MCHC (32.0-37.0) g/dL Immature Gran # (0.00-0.04) 10*3/uL Neutrophils # (1.80-7.70) 10*3/uL Lymphocytes # (0.90-5.00) 10*3/uL Eosinophils # (0.04-0.35) 10*3/uL Potassium (3.5-5.1) mmol/L Carbon Dioxide (22-30) mmol/L BUN (7-17) mg/dL Glucose (74-99) mg/dL POC Glucose (mg/dL) 333 H (70-110) mg/dL Assessment and Plan Plan: Acute hypoxic respiratory failure with worsening in the patient's oxygenation and the patient is currently on Airvo at 50 L with FiO2 of 60 %. Chest x-ray is showing diffuse interstitial pulmonary infiltrates consistent with noncardiogenic pulmonary edema/ARDS. Patient is currently on IV Solu-Medrol. CHF seems to be quite well optimized and the patient's most recent echocardiogram showed an ejection fraction of 40 to 45%. The patient is also on empiric antibiotic coverage. Cefepime. Chest x-ray findings are unchanged. Acute febrile illness, recovered. Acute leukocytosis, gradually improving History of right direct anterior total hip arthroplasty on November 24, 2024 Chronic anemia and hemoglobin remained stable Hypertension. Hyperlipidemia. Insulin-dependent diabetes mellitus. Obesity with a BMI of 35.4 kg/m. Coronary artery disease, with history of CABG and cardiac stents. History of ischemic cardiomyopathy with an ejection fraction improved to 40 to 45%. Implanted AICD/pacemaker. Hypothyroidism. Anxiety/depression. Plan: Patient has already been placed on Airvo 50 L and FiO2 of 60 Continue gentle diuresis to maintain negative fluid balance Continue IV Solu-Medrol Continue empiric antibiotic coverage with IV cefepime Check procalcitonin level Check proBNP level, nonelevated at less than 0.2 Daily chest x-rays Prognosis poor based on the above. Exact etiology for his acute lung injury is not clear. Could have been related to an aspiration pneumonia. Echocardiogram was noted Rest of the comorbidities are stable we will continue to follow make further recommendations based on her progress. Discussed the case with 2 of the daughters over the phone.
[2025-01-03 01:55] LABS: Glucose,Whole Blood 244 mg/dL (70-110)
[2025-01-03 06:02] LABS: Glucose,Whole Blood 177 mg/dL (70-110)
[2025-01-03 07:03] LABS: Basophils # (A) 0.03 10*3/uL (0.00-0.10); Basophils % (A) 0.1 %; Eosinophils # (A) 0.00 10*3/uL (0.04-0.35); Eosinophils % (A) 0.0 %; HCT 31.8 % (37.2-46.3); HGB 10.3 g/dL (12.0-15.0); Lymphocytes # (A) 0.33 10*3/uL (0.90-5.00); Lymphocytes % (A) 1.5 %; MCH 29.7 pg (27.0-32.0); MCHC 32.4 g/dL (32.0-37.0); MCV 91.6 fL (80.0-97.0); Monocytes # (A) 0.56 10*3/uL (0.20-1.00); Monocytes % (A) 2.6 %; Neutrophils # (A) 20.31 10*3/uL (1.80-7.70); Neutrophils % (A) 93.7 %; Platelet Count 236 10*3/uL (140-440); RBC 3.47 10*6/uL (4.10-5.20); RDW 14.2 % (11.5-14.5); WBC 21.68 10*3/uL (4.50-10.00)
[2025-01-03 07:23] LABS: African American GFR (CKD) 68 (>60 ml/min/1.73 sqM); Anion Gap 4 mmol/L; Blood Urea Nitrogen 44 mg/dL (7-17); Calcium 9.3 mg/dL (8.4-10.2); Carbon Dioxide 30 mmol/L (22-30); Chloride 101 mmol/L (98-107); Glucose 181 mg/dL (74-99); Non-African American GFR(CKD) 59 (>60 ml/min/1.73 sqM); Potassium 5.4 mmol/L (3.5-5.1); Sodium 135 mmol/L (137-145)
[2025-01-03] MEDS: SODIUM ZIRCONIUM CYCLOSILICATE 10 GM PACKET PO ONE (08:40)
--- NOTE | 2025-01-03 09:46 | XR ---
EXAMINATION TYPE: XR chest 1V DATE OF EXAM: 01/03/2025 COMPARISON: 01/02/2025 CLINICAL INDICATION: Female, 74 years old with history of ARDS; shortness of breath TECHNIQUE: Single frontal view of the chest is obtained. FINDINGS: Left anterior chest wall ACD generator with right atrial, right ventricular, and coronary sinus leads. Median sternotomy wires and post-CABG clips. Heart borderline enlarged. Slight interval worsening in bilateral patchy and confluent airspace disease. Worsening subcutaneous emphysema along the right chest wall and now at the left base of the neck as well. A small apical and lateral pneumot horax is now noted on the right measuring up to 4 mm. IMPRESSION: 1. Increasing subcutaneous emphysema on the right now extending to the left base of the neck. Small l aterally positioned 4 mm pneumothorax is now visualized. 2. Slight interval worsening in bilateral airspace disease. Called to [facility], nurse Davenport at 9:42 am. [facility], , 01/03/2025 9:43 AM
[2025-01-03 11:37] LABS: Glucose,Whole Blood 317 mg/dL (70-110)
--- NOTE | 2025-01-03 11:44 | P.PN ---
Subjective Progress Note Date: 01/03/25 Patient is a 74-year-old female with hypertension, hyperlipidemia, DM (insulin- dependent), obesity, CAD status post CABG, ischemic cardiomyopathy (EF 25 to 30% with AICD), asthma, and osteoarthritis here for evaluation of a fall with generalized weakness. Patient reported that she developed shortness of breath, dry cough, chills, bilateral extremity swelling and generalized weakness when she was discharged from rehab on 12/09 from [facility]. She recently had a right direct anterior total hip arthroplasty on 11/24/2024. Since then she has fallen twice at home due to missed steps. She reported that her swelling has improved gradually over the past 2 weeks. On arrival to the ED, she also reported to have altered mental status. She denied chest pain, palpitations, nausea, vomiting, abdominal pain, extremity swelling, focal weakness, recent prolonged travel. On admission: Vitals: Temp 99 Fahrenheit, NV 99, RR 16, BP 114/60, O2 saturation 89% on room air Labs: WBC 17.4, hemoglobin 9.5, sodium 132, potassium 4.4, bicarb 23, BUN 16, creatinine 0.9, glucose 124, lactic acid 1.8, calcium 8.8, phosphorus 2.4, magnesium 1.7, TSH 6.7. Liver enzymes within normal ranges. Troponin negative. proBNP 3700. Urinalysis unremarkable. Cepheid 4 Plex negative. Urine Legionella antigen negative. Imaging: Chest x-ray showed cardiomegaly with prominent pulmonary vasculature and patchy bilateral lung infiltrates. Hip pelvis x-ray showed no acute osseous abnormalities. EKG showed V paced at a rate of 87, no ST-T changes, QTc 446 MS. 12/20/2024 patient seen and examined at bedside. No acute events overnight. Still requiring oxygen support with 2 to 3 L of nasal cannula. Patient has no symptoms or complaints. Labs: WBC 15.9, hemoglobin 9.3, MCV 93.6, platelet count 371,000, sodium 139, potassium 4.2, bicarb 27, BUN 16, creatinine 1.01, glucose 133, calcium 9.1, Pro-Fortino 0.22. Blood cultures positive for staph mecA/C positive. Imaging; chest x-ray independently interpreted showing improving pulmonary infiltrates 12/21/2024 patient seen and examined at bedside. No acute events overnight. Patient still requiring 2-3L oxygen. Labs: WBC 21.16, hemoglobin 9, MCV 92.9, platelet count 408,000, sodium 137, potassium 4.5, bicarb 30, BUN 29, creatinine 1.28, glucose 172, calcium 9.3, BNP 2180. Blood cultures positive for Staphylococcus epidermidis MEC A positive. Repeat CXR shows minimal improvement 12/22/2024 patient seen and examined at bedside. No acute events overnight. Patient still requiring 3 to 4 L oxygen via nasal cannula Labs: WBC 7.29, hemoglobin 9.4, platelet count 386,000, sodium 136, potassium 4.7, bicarb 28, BUN 37, creatinine 1.06, glucose 176, calcium 8.8 Imaging; echocardiogram showed LVEF 40 to 45% with moderate global hypokinesis, mild mitral and tricuspid regurgitation 12/23/2024 patient seen and examined at bedside. No acute events overnight. Patient oxygen requirements are increasing from 5 to 6 L high flow nasal cannula. Still having dry cough. Labs: WBC 7 point 0.6, hemoglobin 9.2, MCV 93, platelet count 381,000, sodium 130, potassium 4.4, chloride 102, bicarb 28, BUN 45, creatinine 1.11, glucose 96, calcium 9.1. ABG showed PO2 50 pH 7.42 and pCO2 45 Imaging; chest CT shows marked diffuse scattered groundglass opacities consisten t with pulmonary edema, ARDS or pneumonia, moderate cardiomegaly, 3.4 cm dilation of the main pulmonary artery 12/24/2024 Patient evaluated in follow-up on the medical floor. Patient remains on oxygen support increased up to 10 L high flow cannula with saturations of 90%. patient is currently on a course of IV Solu-Medrol as well as IV Lasix twice daily. She has completed a course of antibiotics. She is also maintained on a fluid restriction. ID and pulmonology are following this patient closely. Blood culture finalized revealing Staphylococcus epidermidis which is felt to be contaminant species 12/25/2024 patient seen and examined at bedside. Patient in the ICU. Requiring high flow nasal cannula rate of 50 FiO2 55% Labs: WBC 17.9, hemoglobin 9.7, MCV 90.8, platelet count 250,000 sodium 137, potassium 4.8, bicarb 31, creatinine, BUN 49, creatinine 1.16, glucose 224, mag 2.2, calcium 9.1. ABG pH 7.46, pCO2 43, bicarb 66 Imaging; chest x-ray showed so far persistent diffuse increased lung markings present 12/26/2024 patient seen and examined at bedside. Still requiring high flow nasal cannula rate of 50 FiO2 60% Labs: WBC 19.5, hemoglobin 10, chloride 97, bicarb 33, potassium 4.2, sodium 137, creatinine 1.07, BUN 54, glucose 280, calcium 9.3, proBNP 1950, Pro-Fortino less than 0.2 Imaging: Chest x-ray showed stable diffuse interstitial infiltrates 12/27/2024 patient seen and examined at bedside. No acute events overnight. Still in the ICU. Still having dry cough. High flow nasal cannula for O2 support flow rate 50 FiO2 60% Labs: WBC 20.3, hemoglobin 10.6, platelet count 370,000, sodium 139, potassium 4.6, bicarb 33, BUN 59, creatinine 0.99, glucose 175, calcium 9.8 Imaging: Chest x-ray today showed stable pulmonary infiltrates 12/28/2024 patient seen and examined at bedside. No acute events overnight. Still in the ICU. Still requiring high flow nasal cannula rate 50 at 50% FiO2 Labs: WBC 19.6, hemoglobin 10.4, sodium 134, potassium 4, bicarb 33, BUN 66, c reatinine 1.12, glucose 205, magnesium 2.3 Imaging: Chest x-ray shows stable diffuse interstitial infiltrates 12/29/2024 patient seen and examined at bedside. No acute events overnight. Still in the ICU. No fevers or chills. O2 requirements decreasing. Labs: WBC 26.03, hemoglobin 10.7, sodium 136, bicarb 34, BUN 63, creatinine 1.11, glucose 185, magnesium 2.4 Imaging: Chest x-ray shows improving diffuse pulmonary infiltrates 12/30/2024 patient seen and examined at bedside. No acute events overnight. Downgraded to stepdown unit Currently on high flow nasal cannula 9 L which has improved. Labs: Sodium 136, potassium 4.7, bicarb 23, BUN 65, creatinine 1.2, glucose 186, calcium 9.4 12/31/2024 Patient is resting in the bed. Awake alert and oriented. Breathing status is better. Currently on 9 L oxygen via nasal cannula. No complaints of chest pain or worsening shortness of breath. Laboratory data showed WBC 27.0 hemoglobin 10.5 and platelets 275. Sodium 135 potassium 5.0 chloride 97 bicarb is 32 BUN 66 and creatinine 1.27 and blood sugar 222. 01/01/2025 patient seen and examined at bedside. No new complaints. Still currently on high flow nasal cannula 8 L for O2 support Labs: WBC 24.7, hemoglobin 10.3, sodium 136, potassium 5.1, bicarb 23, BUN 60, creatinine 1.01, glucose 172 Imaging: Chest x-ray today showed persistent pulmonary diffuse interstitial infiltrates 01/02/2025 patient seen and examined at bedside. Patient increased O2 requirements and is currently on Airvo flow 50 FiO2 60% Labs: sodium 136, potassium 5.1 bicarb 33, BUN 60, creatinine 1.01, glucose 172, calcium 9.5 Imaging: Chest x-ray this morning shows ongoing extensive patchy airspace opacities, new subcutaneous emphysema at the right base of the neck 01/03/2025 patient seen and examined at bedside. Patient still on Airvo low flow 50 FiO2 60% Labs: WBC 21.6, hemoglobin 10.3, platelet count 236,000, sodium 135, potassium 5.4, BUN 44, creatinine 0.96, glucose 181, calcium 9.3 Imaging: Chest x-ray today showed increasing subcutaneous emphysema at the left base of the neck with small pneumothorax on the right chest, stable bilateral airspace opacities Review of systems: Pertinent positives and negatives as discussed in HPI, a complete review of systems was performed and all other systems are negative. Physical examination: Vital signs reviewed General: non toxic, no distress, appears at stated age, on Airvo Derm: no unusual rashes/lesions, warm Head: atraumatic, normocephalic, symmetric Eyes: EOMI, anicteric sclera, pupils equal round reactive to light ENT: Nose and ears atraumatic Neck: No cervical lymphadenopathy, trachea midline, supple, crepitus on palpation of right and left neck Mouth: no lip lesion, mucus membranes moist Cardiovascular: S1S2 reg, no murmur Lungs: bibasilar fine rales, no accessory muscle use Abdominal: soft, nondistended, nontender to palpation, no guarding Ext: muscle strength 5 out of 5 in all 4 extremities grossly, no gross muscle atrophy, no contractures, positive dorsalis pedis pulse bilateral, no edema Neuro: CN II-XI grossly intact, no gross focal neuro deficits Psych: Alert and oriented x 3, appropriate affect and mood Assessment/Plan: The patient is admitted with an anticipated greater than 2 midnight stay for evaluation of acute respiratory failure due to HFrEF exacerbation with concern for ARDS Active: #. Acute hypoxic respiratory failure, secondary to ARDS #. Spotaneous pneumothorax with Subcutaneous emphysema #. HFrEF not in exacerbation #. Ischemic cardiomyopathy (EF 40-45% with AICD) #. Leukocytosis, likley steroid induced, r/o other causes Chest x-ray showed new right side pneumothorax with progressing subcutaneous emphysema now at the left base of the neck. Patient not in distress. Supportive oxygen as needed. Wean off as tolerated. Completed course of Abx Zithromax p.o and Rocephin IVPB on 12/22. Placed on empiric Cefepime IV per pulmonology On Solu-Medrol IV, Duoneb and Symbicort inhalers Switch lasix to 20mg p.o daily Daily weights, Strict InOs, Fluid restriction 1800 Blood cultures positive for staph mecA/C positive. Likely contaminant. Repeat blood cultures negative Monitor CBC and renal fuction Pulmonology consulted by ED. ID consulted. Procal negative. Initated Diflucan p.o daily #. Hyperkalemia Potassium 5.4 today Lokelma p.o. given once Recheck potassium #. Acute Kidney Injury, prerenal, resolved Avoid nephrotoxic agents. Hold farxiga #. Mechanical Fall secondary to above #. Recent Right anterior total hip arthroplasty Hip pelvis x-ray showed no acute osseous abnormalities. Ortho consulted by ED. No intervention recommended at this time Continue with PO norco prn PT OT consulted and patient would benefit from [facility] or LTAC. Defer for now. SW/CM aware #. Normocytic anemia at baseline Monitor CBC. Transfuse if Hgb <7. Chronic Conditions: #. Diabetes mellitus, on insulin pump #. Hyperglycemia, steroid induced Hemoglobin A1c 7.3 in November 2024 Hold home insulin pump as she has run out of home insulin Glucose Accu-Cheks ACHS Insulin lispro 20 units AC-TID Glarigine 30 units BID Initiate Insulin sliding scale ACHS Monitor for hypoglycemia #. Hypertension #. Hyperlipidemia #. Obesity #. CAD status post CABG #. Osteoarthritis Resume home aspirin, bupropion 150, buspirone 10 mg, carvedilol 12.5 mg, clopidogrel 75 mg, entresto, ezetimibe 10 mg, fluvoxamine 100 mggabapentin 300 mg, Synthroid 125 mcg, rosuvastatin 40 mg, trazodone 50 mg DVT ppx: Heparin subq GI prophylaxis: Pantoprazole 40 mg IVP twice daily CODE STATUS: Full Discussed with: Patient Anticipated discharge place: Home Zoila Walsh MD PGY-1/[employer] Internal Medicine Dictation was produced using [employer] dictation software. please excuse any grammatical, word or spelling errors. Attestation: I have seen and examined this patient with my resident, assessment and plan discussed with the resident, agree with assessment and plan as written above. Dr. Godfrey Objective - Vital Signs Vital signs: Vital Signs Temp 98.1 F 01/03/25 04:00 Pulse 73 01/03/25 04:00 Resp 18 01/03/25 04:00 BP 127/69 01/03/25 04:00 Pulse Ox 92 L 01/03/25 04:00 FiO2 60 01/03/25 03:40 Intake & Output 01/02/25 01/03/25 01/03/25 18:59 06:59 18:59 Intake Total 380 10 Output Total 900 Balance -520 10 Weight 91.5 kg Intake: IV 20 10 Invasive Line 4 20 10 Oral 360 Output: Urine 900 Other: Voiding Method External Catheter External Catheter # Voids 1 # Bowel Movements 1 - Labs CBC & Chem 7: 01/03/25 06:16 01/03/25 06:16 Labs: Abnormal Lab Results - Last 24 Hours (Table) 01/02/25 01/02/25 01/02/25 Range/Units 06:24 11:19 16:37 WBC (4.50-10.00) 10*3/uL RBC (4.10-5.20) 10*6/uL Hgb (12.0-15.0) g/dL Hct (37.2-46.3) % Immature Gran # (0.00-0.04) 10*3/uL Neutrophils # (1.80-7.70) 10*3/uL Lymphocytes # (0.90-5.00) 10*3/uL Eosinophils # (0.04-0.35) 10*3/uL Sodium (137-145) mmol/L Potassium 5.2 H (3.5-5.1) mmol/L Carbon Dioxide 32 H (22-30) mmol/L BUN 49 H (7-17) mg/dL Glucose 144 H (74-99) mg/dL POC Glucose (mg/dL) 333 H 303 H (70-110) mg/dL 01/02/25 01/03/25 01/03/25 Range/Units 20:23 01:53 06:00 WBC (4.50-10.00) 10*3/uL RBC (4.10-5.20) 10*6/uL Hgb (12.0-15.0) g/dL Hct (37.2-46.3) % Immature Gran # (0.00-0.04) 10*3/uL Neutrophils # (1.80-7.70) 10*3/uL Lymphocytes # (0.90-5.00) 10*3/uL Eosinophils # (0.04-0.35) 10*3/uL Sodium (137-145) mmol/L Potassium (3.5-5.1) mmol/L Carbon Dioxide (22-30) mmol/L BUN (7-17) mg/dL Glucose (74-99) mg/dL POC Glucose (mg/dL) 463 H 244 H 177 H (70-110) mg/dL 01/03/25 01/03/25 Range/Units 06:16 06:16 WBC 21.68 H (4.50-10.00) 10*3/uL RBC 3.47 L (4.10-5.20) 10*6/uL Hgb 10.3 L (12.0-15.0) g/dL Hct 31.8 L (37.2-46.3) % Immature Gran # 0.45 H (0.00-0.04) 10*3/uL Neutrophils # 20.31 H (1.80-7.70) 10*3/uL Lymphocytes # 0.33 L (0.90-5.00) 10*3/uL Eosinophils # 0.00 L (0.04-0.35) 10*3/uL Sodium 135 L (137-145) mmol/L Potassium 5.4 H (3.5-5.1) mmol/L Carbon Dioxide (22-30) mmol/L BUN 44 H (7-17) mg/dL Glucose 181 H (74-99) mg/dL POC Glucose (mg/dL) (70-110) mg/dL
[2025-01-03] MEDS ORDERED: RX INFO: IV CONTRAST WAS GIVEN 1 EACH MISC MISCELLANE PRN (14:33)
[2025-01-03 16:49] LABS: Glucose,Whole Blood 263 mg/dL (70-110)
[2025-01-03 19:57] LABS: Glucose,Whole Blood 179 mg/dL (70-110)
--- NOTE | 2025-01-03 21:04 | P.PN ---
Subjective Progress Note Date: 01/03/25 On 01/01/2025, the patient is being seen for a follow-up. The patient is hypoxic on 8 L of oxygen by nasal cannula. She easily desaturates upon minimal amount of mobility and this was noted while working with physical therapy as the patient was attempted to sit up in a chair and the patient became quite hypoxic where she dropped a pulse ox in the low 70s and the patient required 100% nonrebreather facemask for oxygen supplementation. At that point, I made recommendations to put the patient on a Airvo and she is currently on Airvo 50 L with an FiO2 of 80%. The patient has been in the hospital since 12/19/2024. The patient was initially seen in consult. The patient is known to have coronary disease with previous bypass surgery. She also has history of cardiomyopathy with impaired ejection fraction and she has an AICD in place. Her initial left- ventricular ejection fraction was estimated to be at 25% and the repeat echocardiogram that was done on 12/22/2024 showed some interval improvement in the left ventricular ejection fraction with that was estimated to be at around 40 to 45% and the patient has moderate global hypokinesis and dilated left ventricular size and wall thickness. The patient also has other comorbidities including hypertension, hyperlipidemia, insulin-dependent diabetes mellitus and osteoarthritis. Her condition decompensated after having a right anterior total hip arthroplasty that was done on 11/24/2024. Since then, the patient went to rehabilitation and she presented back to us with hypoxic respiratory failure. CAT scan of the chest was done 12/22/2024 showed diffuse scattered groundglass pulmonary patchy opacities consistent with cardiogenic versus noncardiogenic pulmonary edema/ARDS. Most recent chest x-ray from today still showing diffuse bilateral pulmonary infiltrates. Meanwhile, the patient was subjected to diuretics. She has no significant edema lower extremities. She became prerenal and her current Lasix is at 20 mg p.o. daily. Rest of her medications are essentially unchanged. She is on Symbicort and DuoNeb the right seems around-th e-clock. She remains on Coreg 12.5 mg p.o. twice a day and Lantus insulin 30 units twice daily and NovoLog sign scale coverage. She was started on IV Solu- Medrol 12/29/2024 and currently she is on Solu-Medrol 40 mg every 8 hours. She remains on Entresto. Family is at the bedside. On 01/02/2025, the patient is being seen for a follow-up. The patient remains on Airvo at 50 L with an FiO2 of 60%. Seems to be slightly more comfortable compared to yesterday. The patient has an acute lung injury/ARDS picture with diffuse groundglass by the patchy pulmonary infiltrates. Follow-up chest x-ray from today shows ongoing extensive bilateral patchy airspace disease and infiltrates without any significant change. The patient is currently on IV cefepime as an empiric antibiotic coverage and the patient is also being treated with systemic steroids and the patient is currently on IV Solu-Medrol 40 mg every 8 hours. Blood sugars are being managed with Lantus insulin 30 units twice daily and NovoLog 20 units 3 times daily with meals and a sliding scale coverage. The patient is also known to have CHF, impaired LV function maintained on Entresto and Coreg. The patient is also on oral Lasix 20 mg p.o. daily. No other complaints otherwise for now. The white cell count is 22.8, hemoglobin is 10.1 and the platelet count of 250. BUN is 49 with a creatinine of 1.02. Sodium levels at 137 and a potassium level is at 5.2. Denies having any chest pain. Is having episodes of dry cough. Known to have coronary artery disease, diabetes mellitus, hypertension hyperlipidemia in addition to multiple other comorbidities as mentioned in the medical records. 01/03/2025, the patient remains quite hypoxic and she remains on Airvo at 50 L with an FiO2 of 60%. The patient continues to have a dry cough. She did experience pain along the right chest while coughing. Based on that, repeat chest x-ray was done this morning and the patient was found to have some limited subcutaneous emphysema along the right chest wall extending to the neck. There was also a very tiny right-sided pneumothorax laterally positioned around 4 mm from the chest wall. Continues to be short of breath even at rest. No significant tachypnea. Oxygenation remains stable and the patient's pulse ox 97% on the current Airvo setting. She is covered with IV cefepime. This is an empiric antibiotic coverage. The patient is also on IV Solu-Medrol 40 mg every 8 hours. Remains on DuoNeb W treatments [id number]. Remains on Symbicort. Remains on Plavix. Rest of the home medications been essentially unchanged. Cardiac medications are also unchanged. Blood work shows a white cell count of 21 with a hemoglobin 10.3 and a platelet count of 236. Sodium is at 135, potassium is at 5.4, BUN is 44 with a creatinine of 0.9. Objective - Vital Signs Vital signs: Vital Signs Temp 98.0 F 01/03/25 15:00 Pulse 67 01/03/25 15:00 Resp 18 01/03/25 14:00 BP 121/68 01/03/25 15:00 Pulse Ox 97 01/03/25 15:00 FiO2 60 01/03/25 19:01 Intake & Output 01/03/25 01/03/25 01/04/25 06:59 18:59 06:59 Intake Total 10 Output Total 1650 Balance 10 -1650 Weight 91.5 kg Intake: IV 10 Invasive Line 4 10 Output: Urine 1650 Other: Voiding Method External Catheter External Catheter # Voids 1 - Exam No acute distress, oriented 3. Currently on 50 L Airvo with an FiO2 of 60 %, she does have some shortness of breath even at rest. Patient also has frequent episodes of a dry cough. HEENT examination is grossly unremarkable. Mucous membranes are moist. No oral lesions. Neck supple. Full range of motion. No adenopathy thyromegaly or neck vein distention. Cardiovascular examination reveals regular rhythm rate. S1-S2 normal. No S3 or S4. No discernible murmur noted. Lungs reveal minimal bibasilar crackles. No wheezes. No rhonchi. Breath sounds equal bilaterally. The crackles in the lung bases are essentially c oarse. There is also evidence of some crepitation and subcutaneous emphysema along the right neck and right chest wall. Abdomen soft bowel sounds are heard. No masses or tenderness. Extremities are intact. No cyanosis clubbing or edema. Skin is without rash or lesion. Neurologic examination is brief but nonfocal. - Labs CBC & Chem 7: 01/03/25 06:16 01/03/25 06:16 Labs: Abnormal Lab Results - Last 24 Hours (Table) 01/03/25 01/03/25 01/03/25 Range/Units 01:53 06:00 06:16 WBC 21.68 H (4.50-10.00) 10*3/uL RBC 3.47 L (4.10-5.20) 10*6/uL Hgb 10.3 L (12.0-15.0) g/dL Hct 31.8 L (37.2-46.3) % Immature Gran # 0.45 H (0.00-0.04) 10*3/uL Neutrophils # 20.31 H (1.80-7.70) 10*3/uL Lymphocytes # 0.33 L (0.90-5.00) 10*3/uL Eosinophils # 0.00 L (0.04-0.35) 10*3/uL Sodium (137-145) mmol/L Potassium (3.5-5.1) mmol/L BUN (7-17) mg/dL Glucose (74-99) mg/dL POC Glucose (mg/dL) 244 H 177 H (70-110) mg/dL 01/03/25 01/03/25 01/03/25 Range/Units 06:16 11:35 16:48 WBC (4.50-10.00) 10*3/uL RBC (4.10-5.20) 10*6/uL Hgb (12.0-15.0) g/dL Hct (37.2-46.3) % Immature Gran # (0.00-0.04) 10*3/uL Neutrophils # (1.80-7.70) 10*3/uL Lymphocytes # (0.90-5.00) 10*3/uL Eosinophils # (0.04-0.35) 10*3/uL Sodium 135 L (137-145) mmol/L Potassium 5.4 H (3.5-5.1) mmol/L BUN 44 H (7-17) mg/dL Glucose 181 H (74-99) mg/dL POC Glucose (mg/dL) 317 H 263 H (70-110) mg/dL 01/03/25 Range/Units 19:55 WBC (4.50-10.00) 10*3/uL RBC (4.10-5.20) 10*6/uL Hgb (12.0-15.0) g/dL Hct (37.2-46.3) % Immature Gran # (0.00-0.04) 10*3/uL Neutrophils # (1.80-7.70) 10*3/uL Lymphocytes # (0.90-5.00) 10*3/uL Eosinophils # (0.04-0.35) 10*3/uL Sodium (137-145) mmol/L Potassium (3.5-5.1) mmol/L BUN (7-17) mg/dL Glucose (74-99) mg/dL POC Glucose (mg/dL) 179 H (70-110) mg/dL Assessment and Plan Plan: Acute hypoxic respiratory failure with worsening in the patient's oxygenation and the patient is currently on Airvo at 50 L with FiO2 of 60 %. Chest x-ray is showing diffuse interstitial pulmonary infiltrates consistent with noncardiogenic pulmonary edema/ARDS. Patient is currently on IV Solu-Medrol. CHF seems to be quite well optimized and the patient's most recent echocardiogram showed an ejection fraction of 40 to 45%. The patient is also on empiric antibiotic coverage. Cefepime. Chest x-ray findings are unchanged. Tiny right-sided pneumothorax. Suspect pneumomediastinum. Subcutaneous emphysema secondary to above Acute febrile illness, recovered. Acute leukocytosis, gradually improving History of right direct anterior total hip arthroplasty on November 24, 2024 Chronic anemia and hemoglobin remained stable Hypertension. Hyperlipidemia. Insulin-dependent diabetes mellitus. Obesity with a BMI of 35.4 kg/m. Coronary artery disease, with history of CABG and cardiac stents. History of ischemic cardiomyopathy with an ejection fraction improved to 40 to 45%. Implanted AICD/pacemaker. Hypothyroidism. Anxiety/depression. Plan: Overall condition is stable and unchanged. Nevertheless, the patient has developed a right-sided pneumothorax on today's chest x-ray and some subcutaneous emphysema. Will obtain a CAT scan of the chest to further characterize abnormalities. Suspect pneumomediastinum in addition. No need for chest tube insertion at this point in time as the pneumothorax is quite tiny and small We will monitor with daily chest x-rays. Patient has already been placed on Airvo 50 L and FiO2 of 60 Continue gentle diuresis to maintain negative fluid balance Continue IV Solu-Medrol Continue empiric antibiotic coverage with IV cefepime Check procalcitonin level Check proBNP level, nonelevated at less than 0.2 Daily chest x-rays Prognosis poor based on the above. Exact etiology for his acute lung injury is not clear. Could have been related to an aspiration pneumonia. Echocardiogram was noted Rest of the comorbidities are stable we will continue to follow make further recommendations based on her progress. Discussed the case with sister at the bedside.
--- NOTE | 2025-01-04 00:48 | CT ---
EXAMINATION TYPE: CT chest w con DATE OF EXAM: 01/03/2025 6:34 PM COMPARISON: Chest x-ray 01/03/2025 CLINICAL INDICATION: Female, 74 years old with history of ARDS/ pTX, [place], ARDS/PTX TECHNIQUE: Axial images were obtained at 5 mm thick sections. Reconstructed images are reviewed on [email or web address] computer in the coronal plane. Contrast used:80 mL of Isovue 300 with IV Contrast, (none if empty) Oral contrast used: (none if empty) CT DLP: 465.4 mGycm, Automated exposure control for dose reduction was used. FINDINGS: Portion of the thyroid visualized is normal. Extensive subcutaneous emphysema is present. Minimal bilateral pneumothoraces are present. Pneumomedi astinum is present. Left basilar chest tube appears to be present Diffuse increased lung markings are seen at bilateral lung chen. Correlate for pulmonary edema. Fin dings can be compatible with ARDS. No enlarged mediastinal or hilar adenopathy is evident. The ascending aorta diameter at the level o f the main pulmonary artery is 3.6 cm. The main pulmonary artery diameter at the bifurcation is 3.4 cm. Severe coronary artery calcifications present. Limited CT sections are obtained through the upper abdomen. Abdomen is essentially unremarkable. IMPRESSION: 1. Bilateral pneumothoraces. 2. Pneumomediastinum. 3. Diffuse increased lung markings can be compatible with ARDS. [facility], , 01/04/2025 12:46 AM
[2025-01-04 02:04] LABS: Glucose,Whole Blood 270 mg/dL (70-110)
[2025-01-04 06:04] LABS: Glucose,Whole Blood 228 mg/dL (70-110)
--- NOTE | 2025-01-04 07:41 | XR ---
EXAMINATION TYPE: XR chest 1V DATE OF EXAM: 01/04/2025 COMPARISON: 01/03/2025 CLINICAL INDICATION: Female, 74 years old with history of ARDS; shortness of breath TECHNIQUE: Single frontal view of the chest is obtained. FINDINGS: Median sternotomy wires with postoperative clips. Left chest wall AICD generator with righ t atrial, right ventricular, and coronary sinus leads. Redemonstrated subcutaneous emphysema along th e right chest wall and left base of the neck. Diffuse bilateral patchy airspace opacities persist. He art remains mildly enlarged. There is redemonstration of a right-sided pneumothorax may be slightly l arger now with a 9 mm apical component and a 1.0 cm medial component noted. Similar 4 mm lateral comp onent. IMPRESSION: 1. Known right-sided pneumothorax seems slightly larger now. Estimated at 15%. 9 mm apical component and 1.0 cm medial components are now seen. Similar 4 mm lateral component. Ongoing subcutaneous emphy sema. 2. Bilateral airspace disease persists. [facility], , 01/04/2025 7:38 AM
[2025-01-04 08:38] LABS: African American GFR (CKD) >90 (>60 ml/min/1.73 sqM); Anion Gap 5 mmol/L; Blood Urea Nitrogen 36 mg/dL (7-17); Calcium 9.6 mg/dL (8.4-10.2); Carbon Dioxide 26 mmol/L (22-30); Chloride 102 mmol/L (98-107); Glucose 258 mg/dL (74-99); Non-African American GFR(CKD) 80 (>60 ml/min/1.73 sqM); Potassium 5.0 mmol/L (3.5-5.1); Sodium 133 mmol/L (137-145)
[2025-01-04 10:00] LABS: Basophils # (A) 0.04 10*3/uL (0.00-0.10); Basophils % (A) 0.2 %; Eosinophils # (A) 0.00 10*3/uL (0.04-0.35); Eosinophils % (A) 0.0 %; HCT 34.1 % (37.2-46.3); HGB 11.2 g/dL (12.0-15.0); Lymphocytes # (A) 0.36 10*3/uL (0.90-5.00); Lymphocytes % (A) 1.8 %; MCH 29.6 pg (27.0-32.0); MCHC 32.8 g/dL (32.0-37.0); MCV 90.0 fL (80.0-97.0); Monocytes # (A) 0.53 10*3/uL (0.20-1.00); Monocytes % (A) 2.7 %; Neutrophils # (A) 18.58 10*3/uL (1.80-7.70); Neutrophils % (A) 93.6 %; Platelet Count 220 10*3/uL (140-440); RBC 3.79 10*6/uL (4.10-5.20); RDW 14.5 % (11.5-14.5); WBC 19.84 10*3/uL (4.50-10.00)
[2025-01-04 11:22] LABS: Glucose,Whole Blood 461 mg/dL (70-110)
--- NOTE | 2025-01-04 12:36 | P.PN ---
Subjective 74-year-old female came in with hypoxic respiratory failure. Patient was also treated for urinary tract infection early during her hospitalization patient was believed to be septic she completed antibiotic therapy. Later she was found to have ARDS. Patient received Lasix as well does have history of congestive heart failure although her hypoxic respiratory failure is secondary to ARDS rather than CHF. Patient was on high flow oxygen patient is presently on 15 L 50% FiO2. Patient presently has 15% pneumothorax patient had a CT of the chest. Patient has significant subcutaneous emphysema. REVIEW OF SYSTEMS: All other systems are negative except those mentioned in the HPI PHYSICAL EXAMINATION: GENERAL: The patient is alert and oriented x3, not in any acute distress. Well developed, well nourished. HEENT: Pupils are round and equally reacting to light. EOMI. No scleral icterus. No conjunctival pallor. Normocephalic, atraumatic. No pharyngeal erythema. No thyromegaly. CARDIOVASCULAR: S1 and S2 present. No murmurs, rubs, or gallops. PULMONARY: Bilateral crackles-acute hypoxic respiratory failure ABDOMEN: Soft, nontender, nondistended, normoactive bowel sounds. No palpable organomegaly. MUSCULOSKELETAL: No joint swelling or deformity. EXTREMITIES: No cyanosis, clubbing, or pedal edema. NEUROLOGICAL: Gross neurological examination did not reveal any focal deficits. SKIN: No rashes. Assessment and plan #. Acute hypoxic respiratory failure, secondary to ARDS: Patient is on systemic steroids #. Spotaneous pneumothorax with Subcutaneous emphysema. Close clinical monitoring. #. Ischemic cardiomyopathy (EF 40-45% with AICD) not in acute exacerbation at this time #. Leukocytosis, likley steroid induced, r/o other causes Chest x-ray showed new right side pneumothorax with progressing subcutaneous emphysema now at the left base of the neck. Patient not in distress. Supportive oxygen as needed. Wean off as tolerated. Completed course of Abx Zithromax p.o and Rocephin IVPB on 12/22. Placed on empiric Cefepime IV per pulmonology On Solu-Medrol IV, Duoneb and Symbicort inhalers On lasix to 20mg p.o daily Daily weights, Strict InOs, Fluid restriction 1800 Monitor CBC and renal fuction Pulmonology consulted by ED. Patient is on Diflucan for oral thrush #. Acute Kidney Injury, prerenal, resolved Avoid nephrotoxic agents. Hold farxiga #. Mechanical Fall secondary to above #. Recent Right anterior total hip arthroplasty Hip pelvis x-ray showed no acute osseous abnormalities. Ortho consulted by ED. No intervention recommended at this time Continue with PO norco prn PT OT consulted and patient would benefit from [facility] or LTAC. Defer for now. SW/CM aware #. Normocytic anemia at baseline Monitor CBC. Transfuse if Hgb <7. Chronic Conditions: #. Diabetes mellitus, on insulin pump #. Hyperglycemia, steroid induced increase in the dose of insulin Hemoglobin A1c 7.3 in November 2024 Hold home insulin pump as she has run out of home insulin Glucose Accu-Cheks ACHS Insulin lispro 20 units AC-TID Glarigine 30 units BID Initiate Insulin sliding scale ACHS Monitor for hypoglycemia #. Hypertension #. Hyperlipidemia #. Obesity #. CAD status post CABG #. Osteoarthritis Resume home aspirin, bupropion 150, buspirone 10 mg, carvedilol 12.5 mg, clopidogrel 75 mg, entresto, ezetimibe 10 mg, fluvoxamine 100 mggabapentin 300 mg, Synthroid 125 mcg, rosuvastatin 40 mg, trazodone 50 mg DVT ppx: Heparin subq GI prophylaxis: Pantoprazole 40 mg IVP twice daily CODE STATUS: Full Objective - Vital Signs Vital signs: Vital Signs Temp 97.1 F L 01/04/25 08:00 Pulse 70 01/04/25 12:22 Resp 20 01/04/25 08:00 BP 110/52 01/04/25 08:00 Pulse Ox 97 01/04/25 12:09 FiO2 55 01/04/25 12:09 Intake & Output 01/03/25 01/04/25 01/04/25 18:59 06:59 18:59 Intake Total 20 240 Output Total 1650 1575 Balance -1650 -1555 240 Weight 91 kg Intake: IV 20 Invasive Line 4 10 Invasive Line 5 10 Oral 240 Output: Urine 1650 1575 Other: Voiding Method External Catheter External Catheter External Catheter # Voids 1 - Labs CBC & Chem 7: 01/04/25 07:56 01/04/25 07:56 Labs: Abnormal Lab Results - Last 24 Hours (Table) 01/03/25 01/03/25 01/04/25 Range/Units 16:48 19:55 02:02 WBC (4.50-10.00) 10*3/uL RBC (4.10-5.20) 10*6/uL Hgb (12.0-15.0) g/dL Hct (37.2-46.3) % Immature Gran # (0.00-0.04) 10*3/uL Neutrophils # (1.80-7.70) 10*3/uL Lymphocytes # (0.90-5.00) 10*3/uL Eosinophils # (0.04-0.35) 10*3/uL Sodium (137-145) mmol/L BUN (7-17) mg/dL Glucose (74-99) mg/dL POC Glucose (mg/dL) 263 H 179 H 270 H (70-110) mg/dL 01/04/25 01/04/25 01/04/25 Range/Units 06:03 07:56 07:56 WBC 19.84 H (4.50-10.00) 10*3/uL RBC 3.79 L (4.10-5.20) 10*6/uL Hgb 11.2 L (12.0-15.0) g/dL Hct 34.1 L (37.2-46.3) % Immature Gran # 0.33 H (0.00-0.04) 10*3/uL Neutrophils # 18.58 H (1.80-7.70) 10*3/uL Lymphocytes # 0.36 L (0.90-5.00) 10*3/uL Eosinophils # 0.00 L (0.04-0.35) 10*3/uL Sodium 133 L (137-145) mmol/L BUN 36 H (7-17) mg/dL Glucose 258 H (74-99) mg/dL POC Glucose (mg/dL) 228 H (70-110) mg/dL 01/04/25 Range/Units 11:21 WBC (4.50-10.00) 10*3/uL RBC (4.10-5.20) 10*6/uL Hgb (12.0-15.0) g/dL Hct (37.2-46.3) % Immature Gran # (0.00-0.04) 10*3/uL Neutrophils # (1.80-7.70) 10*3/uL Lymphocytes # (0.90-5.00) 10*3/uL Eosinophils # (0.04-0.35) 10*3/uL Sodium (137-145) mmol/L BUN (7-17) mg/dL Glucose (74-99) mg/dL POC Glucose (mg/dL) 461 H (70-110) mg/dL
[2025-01-04] MEDS: INSULIN LISPRO (HumaLOG) 100 UNIT/ML 10 mL VL SQ ONE (12:51)
[2025-01-04 16:22] LABS: Glucose,Whole Blood 394 mg/dL (70-110)
--- NOTE | 2025-01-04 16:34 | P.PN ---
Subjective Progress Note Date: 01/03/25 Principal diagnosis: Reason for follow-up is a positive blood culture Patient is a 74-year-old female with a past medical history significant for Asthma, Blood Disorder, Coronary Artery Disease (CAD), Chest Pain / Angina, Heart Failure, Diabetes Mellitus, Eye Disorder, GERD/Reflux, Hyperlipidemia, Hypertension, Myocardial Infarction (CT), Musculoskeletal Disorder, Osteoarthritis (OA), Renal Disease, Skin Disorder, Supraventricular Tachycardia (SVT), Thyroid Disorder who recently did have a right hip replacement, patient presented the hospital with increasing shortness of breath and cough did have a positive blood culture prompting this consultation. On today's evaluation that is 01/03/2025,the patient denies any fever or any chills, patient is breathing slightly comfortably however still requiring Airvo with 50% FiO2, the patient denies chest pain shortness of breath and no significant cough, patient denies abdominal pain, no nausea vomiting or diarrhea. Patient white count is down to 21.68 creatinine 0.96 Objective - Vital Signs Vital signs: Vital Signs Temp 98.1 F 01/03/25 08:20 Pulse 72 01/03/25 13:32 Resp 18 01/03/25 08:20 BP 108/64 01/03/25 08:20 Pulse Ox 96 01/03/25 08:20 FiO2 60 01/03/25 13:20 Intake & Output 01/02/25 01/03/25 01/03/25 18:59 06:59 18:59 Intake Total 380 10 Output Total 900 1000 Balance -520 10 -1000 Weight 91.5 kg Intake: IV 20 10 Invasive Line 4 20 10 Oral 360 Output: Urine 900 1000 Other: Voiding Method External Catheter External Catheter # Voids 1 # Bowel Movements 1 - Exam GENERAL DESCRIPTION: An elderly female up in the bed in no distress RESPIRATORY SYSTEM: Unlabored breathing , decreased breath sounds at bases HEART: S1 S2 regular rate and rhythm , ABDOMEN: Soft , no tenderness EXTREMITIES: No edema feet - Labs CBC & Chem 7: 01/04/25 07:56 01/04/25 07:56 Labs: Abnormal Lab Results - Last 24 Hours (Table) 01/02/25 01/02/25 01/03/25 Range/Units 16:37 20:23 01:53 WBC (4.50-10.00) 10*3/uL RBC (4.10-5.20) 10*6/uL Hgb (12.0-15.0) g/dL Hct (37.2-46.3) % Immature Gran # (0.00-0.04) 10*3/uL Neutrophils # (1.80-7.70) 10*3/uL Lymphocytes # (0.90-5.00) 10*3/uL Eosinophils # (0.04-0.35) 10*3/uL Sodium (137-145) mmol/L Potassium (3.5-5.1) mmol/L BUN (7-17) mg/dL Glucose (74-99) mg/dL POC Glucose (mg/dL) 303 H 463 H 244 H (70-110) mg/dL 01/03/25 01/03/25 01/03/25 Range/Units 06:00 06:16 06:16 WBC 21.68 H (4.50-10.00) 10*3/uL RBC 3.47 L (4.10-5.20) 10*6/uL Hgb 10.3 L (12.0-15.0) g/dL Hct 31.8 L (37.2-46.3) % Immature Gran # 0.45 H (0.00-0.04) 10*3/uL Neutrophils # 20.31 H (1.80-7.70) 10*3/uL Lymphocytes # 0.33 L (0.90-5.00) 10*3/uL Eosinophils # 0.00 L (0.04-0.35) 10*3/uL Sodium 135 L (137-145) mmol/L Potassium 5.4 H (3.5-5.1) mmol/L BUN 44 H (7-17) mg/dL Glucose 181 H (74-99) mg/dL POC Glucose (mg/dL) 177 H (70-110) mg/dL 01/03/25 Range/Units 11:35 WBC (4.50-10.00) 10*3/uL RBC (4.10-5.20) 10*6/uL Hgb (12.0-15.0) g/dL Hct (37.2-46.3) % Immature Gran # (0.00-0.04) 10*3/uL Neutrophils # (1.80-7.70) 10*3/uL Lymphocytes # (0.90-5.00) 10*3/uL Eosinophils # (0.04-0.35) 10*3/uL Sodium (137-145) mmol/L Potassium (3.5-5.1) mmol/L BUN (7-17) mg/dL Glucose (74-99) mg/dL POC Glucose (mg/dL) 317 H (70-110) mg/dL Assessment and Plan (1) Positive blood culture Current Visit: Yes Status: Acute Code(s): R78.81 - BACTEREMIA SNOMED Code(s): 926190423 (2) Leukocytosis Current Visit: Yes Status: Acute Code(s): D72.829 - ELEVATED WHITE BLOOD CELL COUNT, UNSPECIFIED SNOMED Code(s): 352401916 (3) Oropharyngeal candidiasis Current Visit: Yes Status: Acute Code(s): B37.0 - CANDIDAL STOMATITIS SNOMED Code(s): 89649901 Plan: 1patient with a positive blood culture with staph epi which is more likely skin contamination this patient who recently did have a right hip replacement however the right hip surgical site incision is currently healed with no cellulitis and the patient denies having any pain to the right hip area, no need for vancomycin however blood culture has been repeated 2patient presented hospital with increasing shortness of breath and did have a cough question of asthma exacerbation with tracheobronchitis chest x-ray was atypical pneumonia, patient did have a normal procalcitonin antibiotic has been discontinued 3patient has been complaining of sore throat and difficulty swallowing concerning for oropharyngeal candidiasis being treated with Diflucan and nystatin swish and swallow patient white count down to 21,000 and will be monitored closely Dictation was produced using [employer] software. please excuse any grammatical, word or spelling errors. Time with Patient: Less than 30
--- NOTE | 2025-01-04 16:35 | P.PN ---
Subjective Progress Note Date: 01/04/25 Principal diagnosis: Reason for follow-up is a positive blood culture Patient is a 74-year-old female with a past medical history significant for Asthma, Blood Disorder, Coronary Artery Disease (CAD), Chest Pain / Angina, Heart Failure, Diabetes Mellitus, Eye Disorder, GERD/Reflux, Hyperlipidemia, Hypertension, Myocardial Infarction ([place]), Musculoskeletal Disorder, Osteoarthritis (OA), Renal Disease, Skin Disorder, Supraventricular Tachycardia (SVT), Thyroid Disorder who recently did have a right hip replacement, patient presented the hospital with increasing shortness of breath and cough did have a positive blood culture prompting this consultation. On today's evaluation that is 01/04/2025,the patient remains to be afebrile, patient is on 50% FiO2 Airvo supplemental oxygen and still complaining of some shortness of breath however no chest pain or worsening cough.Patient denies having any nausea or vomiting, no abdominal pain and no diarrhea has been repor mag. Patient white count is down to 19.84, creatinine 0.75 Objective - Vital Signs Vital signs: Vital Signs Temp 97.1 F L 01/04/25 08:00 Pulse 70 01/04/25 12:22 Resp 20 01/04/25 08:00 BP 110/52 01/04/25 08:00 Pulse Ox 97 01/04/25 12:09 FiO2 55 01/04/25 12:09 Intake & Output 01/03/25 01/04/25 01/04/25 18:59 06:59 18:59 Intake Total 20 240 Output Total 1650 1575 Balance -1650 -1555 240 Weight 91 kg Intake: IV 20 Invasive Line 4 10 Invasive Line 5 10 Oral 240 Output: Urine 1650 1575 Other: Voiding Method External Catheter External Catheter External Catheter # Voids 1 - Exam GENERAL DESCRIPTION: An elderly female up in the bed in no distress RESPIRATORY SYSTEM: Unlabored breathing , decreased breath sounds at bases HEART: S1 S2 regular rate and rhythm , ABDOMEN: Soft , no tenderness EXTREMITIES: No edema feet - Labs CBC & Chem 7: 01/04/25 07:56 01/04/25 07:56 Labs: Abnormal Lab Results - Last 24 Hours (Table) 01/03/25 01/03/25 01/04/25 Range/Units 16:48 19:55 02:02 WBC (4.50-10.00) 10*3/uL RBC (4.10-5.20) 10*6/uL Hgb (12.0-15.0) g/dL Hct (37.2-46.3) % Immature Gran # (0.00-0.04) 10*3/uL Neutrophils # (1.80-7.70) 10*3/uL Lymphocytes # (0.90-5.00) 10*3/uL Eosinophils # (0.04-0.35) 10*3/uL Sodium (137-145) mmol/L BUN (7-17) mg/dL Glucose (74-99) mg/dL POC Glucose (mg/dL) 263 H 179 H 270 H (70-110) mg/dL 01/04/25 01/04/25 01/04/25 Range/Units 06:03 07:56 07:56 WBC 19.84 H (4.50-10.00) 10*3/uL RBC 3.79 L (4.10-5.20) 10*6/uL Hgb 11.2 L (12.0-15.0) g/dL Hct 34.1 L (37.2-46.3) % Immature Gran # 0.33 H (0.00-0.04) 10*3/uL Neutrophils # 18.58 H (1.80-7.70) 10*3/uL Lymphocytes # 0.36 L (0.90-5.00) 10*3/uL Eosinophils # 0.00 L (0.04-0.35) 10*3/uL Sodium 133 L (137-145) mmol/L BUN 36 H (7-17) mg/dL Glucose 258 H (74-99) mg/dL POC Glucose (mg/dL) 228 H (70-110) mg/dL 01/04/25 Range/Units 11:21 WBC (4.50-10.00) 10*3/uL RBC (4.10-5.20) 10*6/uL Hgb (12.0-15.0) g/dL Hct (37.2-46.3) % Immature Gran # (0.00-0.04) 10*3/uL Neutrophils # (1.80-7.70) 10*3/uL Lymphocytes # (0.90-5.00) 10*3/uL Eosinophils # (0.04-0.35) 10*3/uL Sodium (137-145) mmol/L BUN (7-17) mg/dL Glucose (74-99) mg/dL POC Glucose (mg/dL) 461 H (70-110) mg/dL Assessment and Plan (1) Positive blood culture Current Visit: Yes Status: Acute Code(s): R78.81 - BACTEREMIA SNOMED Code(s): 928791881 (2) Leukocytosis Current Visit: Yes Status: Acute Code(s): D72.829 - ELEVATED WHITE BLOOD CELL COUNT, UNSPECIFIED SNOMED Code(s): 061277207 (3) Oropharyngeal candidiasis Current Visit: Yes Status: Acute Code(s): B37.0 - CANDIDAL STOMATITIS SNOMED Code(s): 53500443 Plan: 1patient with a positive blood culture with staph epi which is more likely skin contamination this patient who recently did have a right hip replacement however the right hip surgical site incision is currently healed with no cellulitis and the patient denies having any pain to the right hip area, no need for vancomycin however blood culture has been repeated 2patient presented hospital with increasing shortness of breath and did have a cough question of asthma exacerbation with tracheobronchitis chest x-ray was atypical pneumonia, patient did have a normal procalcitonin antibiotic has been discontinued 3patient has been complaining of sore throat and difficulty swallowing concerning for oropharyngeal candidiasis 4patient white count is trending down down to 19,000, we will continue with Diflucan and nystatin swish and swallow and monitor clinical course closely Dictation was produced using [employer] dictation software. please excuse any grammatical, word or spelling errors. Time with Patient: Less than 30
[2025-01-04 20:10] LABS: Glucose,Whole Blood 379 mg/dL (70-110)
[2025-01-04] MEDS: INSULIN GLARGINE (LANTUS) 100 UNIT/ML SYR SQ SCH (20:46)
--- NOTE | 2025-01-04 22:03 | P.PN ---
Subjective Progress Note Date: 01/04/25 On 01/01/2025, the patient is being seen for a follow-up. The patient is hypoxic on 8 L of oxygen by nasal cannula. She easily desaturates upon minimal amount of mobility and this was noted while working with physical therapy as the patient was attempted to sit up in a chair and the patient became quite hypoxic where she dropped a pulse ox in the low 70s and the patient required 100% nonrebreather facemask for oxygen supplementation. At that point, I made recommendations to put the patient on a Airvo and she is currently on Airvo 50 L with an FiO2 of 80%. The patient has been in the hospital since 12/19/2024. The patient was initially seen in consult. The patient is known to have coronary disease with previous bypass surgery. She also has history of cardiomyopathy with impaired ejection fraction and she has an AICD in place. Her initial left- ventricular ejection fraction was estimated to be at 25% and the repeat echocardiogram that was done on 12/22/2024 showed some interval improvement in the left ventricular ejection fraction with that was estimated to be at around 40 to 45% and the patient has moderate global hypokinesis and dilated left ventricular size and wall thickness. The patient also has other comorbidities including hypertension, hyperlipidemia, insulin-dependent diabetes mellitus and osteoarthritis. Her condition decompensated after having a right anterior total hip arthroplasty that was done on 11/24/2024. Since then, the patient went to rehabilitation and she presented back to us with hypoxic respiratory failure. CAT scan of the chest was done 12/22/2024 showed diffuse scattered groundglass pulmonary patchy opacities consistent with cardiogenic versus noncardiogenic pulmonary edema/ARDS. Most recent chest x-ray from today still showing diffuse bilateral pulmonary infiltrates. Meanwhile, the patient was subjected to diuretics. She has no significant edema lower extremities. She became prerenal and her current Lasix is at 20 mg p.o. daily. Rest of her medications are essentially unchanged. She is on Symbicort and DuoNeb the right seems around-th e-clock. She remains on Coreg 12.5 mg p.o. twice a day and Lantus insulin 30 units twice daily and NovoLog sign scale coverage. She was started on IV Solu- Medrol 12/29/2024 and currently she is on Solu-Medrol 40 mg every 8 hours. She remains on Entresto. Family is at the bedside. On 01/02/2025, the patient is being seen for a follow-up. The patient remains on Airvo at 50 L with an FiO2 of 60%. Seems to be slightly more comfortable compared to yesterday. The patient has an acute lung injury/ARDS picture with diffuse groundglass by the patchy pulmonary infiltrates. Follow-up chest x-ray from today shows ongoing extensive bilateral patchy airspace disease and infiltrates without any significant change. The patient is currently on IV cefepime as an empiric antibiotic coverage and the patient is also being treated with systemic steroids and the patient is currently on IV Solu-Medrol 40 mg every 8 hours. Blood sugars are being managed with Lantus insulin 30 units twice daily and NovoLog 20 units 3 times daily with meals and a sliding scale coverage. The patient is also known to have CHF, impaired LV function maintained on Entresto and Coreg. The patient is also on oral Lasix 20 mg p.o. daily. No other complaints otherwise for now. The white cell count is 22.8, hemoglobin is 10.1 and the platelet count of 250. BUN is 49 with a creatinine of 1.02. Sodium levels at 137 and a potassium level is at 5.2. Denies having any chest pain. Is having episodes of dry cough. Known to have coronary artery disease, diabetes mellitus, hypertension hyperlipidemia in addition to multiple other comorbidities as mentioned in the medical records. 01/03/2025, the patient remains quite hypoxic and she remains on Airvo at 50 L with an FiO2 of 60%. The patient continues to have a dry cough. She did experience pain along the right chest while coughing. Based on that, repeat chest x-ray was done this morning and the patient was found to have some limited subcutaneous emphysema along the right chest wall extending to the neck. There was also a very tiny right-sided pneumothorax laterally positioned around 4 mm from the chest wall. Continues to be short of breath even at rest. No significant tachypnea. Oxygenation remains stable and the patient's pulse ox 97% on the current Airvo setting. She is covered with IV cefepime. This is an empiric antibiotic coverage. The patient is also on IV Solu-Medrol 40 mg every 8 hours. Remains on DuoNeb W treatments [id number]. Remains on Symbicort. Remains on Plavix. Rest of the home medications been essentially unchanged. Cardiac medications are also unchanged. Blood work shows a white cell count of 21 with a hemoglobin 10.3 and a platelet count of 236. Sodium is at 135, potassium is at 5.4, BUN is 44 with a creatinine of 0.9. 01/04/2025, the patient is being seen for a follow-up. The patient is in acute hypoxic respiratory failure due to complication of ARDS. A CAT scan of the chest was also obtained yesterday and showed diffuse bilateral pulmonary infiltrates. The patient also had extensive subcutaneous emphysema present involving the neck and the chest and the patient had small bilateral pneumoth oraces and no obvious tendon was also present. There was also increased interstitial lung markings bilaterally consistent with ARDS. Despite this complication, the patient remains on Airvo with flow of 50% FiO2 of 44%. Pulse ox noted at 91 to 92%. Remains on IV Solu-Medrol. Remains on IV cefepime as an empiric antibiotic coverage. Rest of the medication remains unchanged. She continues to have a dry cough. The white cell count at 19.8 with a hemoglobin 11.2 and a platelet count of 220. Electrolytes are all within normal limits. BUN 36 and a creatinine 0.75. No altered mentation. The patient denies having any interval worsening in the respiratory status compared to yesterday. Family is at the bedside and had a lengthy discussion with them. The prognosis in general is poor yet the patient remains stable in terms of her oxygenation. Objective - Vital Signs Vital signs: Vital Signs Temp 98.1 F 01/04/25 19:45 Pulse 74 01/04/25 20:19 Resp 22 01/04/25 19:45 BP 138/64 01/04/25 19:45 Pulse Ox 95 01/04/25 20:01 FiO2 44 01/04/25 20:01 Intake & Output 01/04/25 01/04/25 01/05/25 06:59 18:59 06:59 Intake Total 20 720 Output Total 1575 Balance -1555 720 Weight 91 kg Intake: IV 20 Invasive Line 4 10 Invasive Line 5 10 Oral 720 Output: Urine 1575 Other: Voiding Method External Catheter External Catheter External Catheter # Voids 1 - Exam No acute distress, oriented 3. Currently on 50 L Airvo with an FiO2 of 44 %, she does have some shortness of breath even at rest. Patient also has frequent episodes of a dry cough. HEENT examination is grossly unremarkable. Mucous membranes are moist. No oral lesions. Subcutaneous emphysema is noted over the neck area. Neck supple. Full range of motion. No adenopathy thyromegaly or neck vein distention. Cardiovascular examination reveals regular rhythm rate. S1-S2 normal. No S3 or S4. No discernible murmur noted. Lungs reveal minimal bibasilar crackles. No wheezes. No rhonchi. Breath sounds equal bilaterally. The crackles in the lung bases are essentially coarse. There is also evidence of some crepitation and subcutaneous emphysema along the right neck and right chest wall. Subcutaneous emphysema overlying the chest. Abdomen soft bowel sounds are heard. No masses or tenderness. Extremities are intact. No cyanosis clubbing or edema. Skin is without rash or lesion. Neurologic examination is brief but nonfocal. - Labs CBC & Chem 7: 01/04/25 07:56 01/04/25 07:56 Labs: Abnormal Lab Results - Last 24 Hours (Table) 01/04/25 01/04/25 01/04/25 Range/Units 02:02 06:03 07:56 WBC 19.84 H (4.50-10.00) 10*3/uL RBC 3.79 L (4.10-5.20) 10*6/uL Hgb 11.2 L (12.0-15.0) g/dL Hct 34.1 L (37.2-46.3) % Immature Gran # 0.33 H (0.00-0.04) 10*3/uL Neutrophils # 18.58 H (1.80-7.70) 10*3/uL Lymphocytes # 0.36 L (0.90-5.00) 10*3/uL Eosinophils # 0.00 L (0.04-0.35) 10*3/uL Sodium (137-145) mmol/L BUN (7-17) mg/dL Glucose (74-99) mg/dL POC Glucose (mg/dL) 270 H 228 H (70-110) mg/dL 01/04/25 01/04/25 01/04/25 Range/Units 07:56 11:21 16:20 WBC (4.50-10.00) 10*3/uL RBC (4.10-5.20) 10*6/uL Hgb (12.0-15.0) g/dL Hct (37.2-46.3) % Immature Gran # (0.00-0.04) 10*3/uL Neutrophils # (1.80-7.70) 10*3/uL Lymphocytes # (0.90-5.00) 10*3/uL Eosinophils # (0.04-0.35) 10*3/uL Sodium 133 L (137-145) mmol/L BUN 36 H (7-17) mg/dL Glucose 258 H (74-99) mg/dL POC Glucose (mg/dL) 461 H 394 H (70-110) mg/dL / Range/Units 20:09 WBC (4.50-10.00) 10*3/uL RBC (4.10-5.20) 10*6/uL Hgb (12.0-15.0) g/dL Hct (37.2-46.3) % Immature Gran # (0.00-0.04) 10*3/uL Neutrophils # (1.80-7.70) 10*3/uL Lymphocytes # (0.90-5.00) 10*3/uL Eosinophils # (0.04-0.35) 10*3/uL Sodium (137-145) mmol/L BUN (7-17) mg/dL Glucose (74-99) mg/dL POC Glucose (mg/dL) 379 H (70-110) mg/dL Assessment and Plan Plan: ARDS/adult respiratory distress syndrome with secondary acute hypoxic respiratory failure with worsening in the patient's oxygenation and the patient is currently on Airvo at 50 L with FiO2 of 44 %. Chest x-ray is showing diffuse interstitial pulmonary infiltrates consistent with noncardiogenic pulmonary edema/ARDS. The CAT scan of the chest was also consistent with ARDS with secondary complications of bilateral minimal pneumothoraces, pneumomediastinum a nd subcutaneous emphysema. The patient is currently on IV Solu-Medrol. CHF seems to be quite well optimized and the patient's most recent echocardiogram showed an ejection fraction of 40 to 45%. The patient is also on empiric antibiotic coverage. Cefepime. Chest x-ray findings are unchanged. Tiny bilateral pneumothoraces Pneumomediastinum. Stable subcutaneous emphysema secondary to above Acute febrile illness, recovered. Acute leukocytosis, gradually improving History of right direct anterior total hip arthroplasty on November 24, 2024 Chronic anemia and hemoglobin remained stable Hypertension. Hyperlipidemia. Insulin-dependent diabetes mellitus. Obesity with a BMI of 35.4 kg/m. Coronary artery disease, with history of CABG and cardiac stents. History of ischemic cardiomyopathy with an ejection fraction improved to 40 to 45%. Implanted AICD/pacemaker. Hypothyroidism. Anxiety/depression. Plan: Overall condition is stable and unchanged. Oxygenation remains unchanged on Airvo CAT scan of the chest was note No need for chest tube insertion at this point in time as the bilateral pneumothoraces are tiny and have not caused any significant hemodynamic compromise We will monitor with daily chest x-rays. Patient has already been placed on Airvo 50 L and FiO2 of 44% Continue gentle diuresis to maintain negative fluid balance Continue IV Solu-Medrol Continue empiric antibiotic coverage with IV cefepime Check procalcitonin level nonelevated at less than 0.2 Daily chest x-rays Prognosis poor based on the above. Exact etiology for his acute lung injury is not clear. Could have been related to an aspiration pneumonia. Echocardiogram was noted Rest of the comorbidities are stable we will continue to follow make further recommendations based on her progress. Discussed the case with family at the bedside. Time with Patient: Greater than 30
[2025-01-05 02:11] LABS: Glucose,Whole Blood 126 mg/dL (70-110)
[2025-01-05 07:09] LABS: Glucose,Whole Blood 196 mg/dL (70-110)
--- NOTE | 2025-01-05 08:22 | XR ---
EXAMINATION TYPE: XR chest 1V DATE OF EXAM: 01/05/2025 COMPARISON: 01/04/2025 CLINICAL INDICATION: Female, 74 years old with history of ARDS; shortness of breath TECHNIQUE: Single frontal view of the chest is obtained. FINDINGS: Ongoing subcutaneous emphysema right side of the chest and along the base of the neck on b oth sides, increased in the interval. Right-sided pneumothorax redemonstrated measuring 9 mm at the a pex, 3 mm laterally, and 1.2 cm medial to the right upper lobe, overall not significantly changed. Me elizabeth sternotomy wires with postoperative clips. Left anterior chest wall ICD generator with right atr ial, right ventricular, and coronary sinus leads. Diffuse bilateral interstitial and airspace opaciti es persist without significant change. IMPRESSION: 1. Ongoing right-sided pneumothorax, not significantly change. Probably small to moderate in size giv en lateral and medial components. 2. Subcutaneous emphysema is slightly worsening. 3. Ongoing bilateral airspace disease. [facility], , 01/05/2025 8:19 AM
[2025-01-05 12:02] LABS: Glucose,Whole Blood 336 mg/dL (70-110)
[2025-01-05] MEDS: INSULIN LISPRO (HumaLOG) 100 UNIT/ML 10 mL VL SQ SCH (13:00)
--- NOTE | 2025-01-05 14:07 | XR ---
EXAMINATION TYPE: XR chest 1V DATE OF EXAM: 01/05/2025 1:41 PM COMPARISON: Chest radiographs from [id number]. CLINICAL INDICATION: Female, 74 years old with history of worsening shortness of breath; [facility] TECHNIQUE: XR chest 1V Frontal view of the chest. FINDINGS: Lungs/Pleura: There is no evidence of pleural effusion, focal consolidation, or pneumothorax. Pulmonary vascularity: Unremarkable. Heart/mediastinum: Cardiomediastinal silhouette is enlarged. Three lead cardiac conduction device ove rlying the left hemithorax with lead tips projecting over the right ventricle, right atrium and coron hailey sinus. Musculoskeletal: No acute osseous pathology. Other findings: Subcutaneous emphysema scattered throughout the visualized thorax. IMPRESSION: 1. Diffuse subcutaneous emphysema. 2. Cardiomegaly with pulmonary edema correlate for congestive heart failure. [facility], , 01/05/2025 2:05 PM
--- NOTE | 2025-01-05 16:04 | P.PN ---
Subjective Progress Note Date: 01/05/25 Patient is a 74-year-old female with hypertension, hyperlipidemia, DM (insulin- dependent), obesity, CAD status post CABG, ischemic cardiomyopathy (EF 25 to 30% with AICD), asthma, and osteoarthritis here for evaluation of a fall with generalized weakness. Patient reported that she developed shortness of breath, dry cough, chills, bilateral extremity swelling and generalized weakness when she was discharged from rehab on 12/09 from [facility]. She recently had a right direct anterior total hip arthroplasty on 11/24/2024. Since then she has fallen twice at home due to missed steps. She reported that her swelling has improved gradually over the past 2 weeks. On arrival to the ED, she also reported to have altered mental status. She denied chest pain, palpitations, nausea, vomiting, abdominal pain, extremity swelling, focal weakness, recent prolonged travel. On admission: Vitals: Temp 99 Fahrenheit, NC 99, RR 16, BP 114/60, O2 saturation 89% on room air Labs: WBC 17.4, hemoglobin 9.5, sodium 132, potassium 4.4, bicarb 23, BUN 16, creatinine 0.9, glucose 124, lactic acid 1.8, calcium 8.8, phosphorus 2.4, magnesium 1.7, TSH 6.7. Liver enzymes within normal ranges. Troponin negative. proBNP 3700. Urinalysis unremarkable. Cepheid 4 Plex negative. Urine Legionella antigen negative. Imaging: Chest x-ray showed cardiomegaly with prominent pulmonary vasculature and patchy bilateral lung infiltrates. Hip pelvis x-ray showed no acute osseous abnormalities. EKG showed V paced at a rate of 87, no ST-T changes, QTc 446 MS. 12/20/2024 patient seen and examined at bedside. No acute events overnight. Still requiring oxygen support with 2 to 3 L of nasal cannula. Patient has no symptoms or complaints. Labs: WBC 15.9, hemoglobin 9.3, MCV 93.6, platelet count 371,000, sodium 139, potassium 4.2, bicarb 27, BUN 16, creatinine 1.01, glucose 133, calcium 9.1, Pro-Fortino 0.22. Blood cultures positive for staph mecA/C positive. Imaging; chest x-ray independently interpreted showing improving pulmonary infiltrates 12/21/2024 patient seen and examined at bedside. No acute events overnight. Patient still requiring 2-3L oxygen. Labs: WBC 21.16, hemoglobin 9, MCV 92.9, platelet count 408,000, sodium 137, potassium 4.5, bicarb 30, BUN 29, creatinine 1.28, glucose 172, calcium 9.3, BNP 2180. Blood cultures positive for Staphylococcus epidermidis MEC A positive. Repeat CXR shows minimal improvement 12/22/2024 patient seen and examined at bedside. No acute events overnight. Patient still requiring 3 to 4 L oxygen via nasal cannula Labs: WBC 7.29, hemoglobin 9.4, platelet count 386,000, sodium 136, potassium 4.7, bicarb 28, BUN 37, creatinine 1.06, glucose 176, calcium 8.8 Imaging; echocardiogram showed LVEF 40 to 45% with moderate global hypokinesis, mild mitral and tricuspid regurgitation 12/23/2024 patient seen and examined at bedside. No acute events overnight. Patient oxygen requirements are increasing from 5 to 6 L high flow nasal cannula. Still having dry cough. Labs: WBC 7 point 0.6, hemoglobin 9.2, MCV 93, platelet count 381,000, sodium 130, potassium 4.4, chloride 102, bicarb 28, BUN 45, creatinine 1.11, glucose 96, calcium 9.1. ABG showed PO2 50 pH 7.42 and pCO2 45 Imaging; chest CT shows marked diffuse scattered groundglass opacities consisten t with pulmonary edema, ARDS or pneumonia, moderate cardiomegaly, 3.4 cm dilation of the main pulmonary artery 12/24/2024 Patient evaluated in follow-up on the medical floor. Patient remains on oxygen support increased up to 10 L high flow cannula with saturations of 90%. patient is currently on a course of IV Solu-Medrol as well as IV Lasix twice daily. She has completed a course of antibiotics. She is also maintained on a fluid restriction. ID and pulmonology are following this patient closely. Blood culture finalized revealing Staphylococcus epidermidis which is felt to be contaminant species 12/25/2024 patient seen and examined at bedside. Patient in the ICU. Requiring high flow nasal cannula rate of 50 FiO2 55% Labs: WBC 17.9, hemoglobin 9.7, MCV 90.8, platelet count 250,000 sodium 137, potassium 4.8, bicarb 31, creatinine, BUN 49, creatinine 1.16, glucose 224, mag 2.2, calcium 9.1. ABG pH 7.46, pCO2 43, bicarb 66 Imaging; chest x-ray showed so far persistent diffuse increased lung markings present 12/26/2024 patient seen and examined at bedside. Still requiring high flow nasal cannula rate of 50 FiO2 60% Labs: WBC 19.5, hemoglobin 10, chloride 97, bicarb 33, potassium 4.2, sodium 137, creatinine 1.07, BUN 54, glucose 280, calcium 9.3, proBNP 1950, Pro-Fortino less than 0.2 Imaging: Chest x-ray showed stable diffuse interstitial infiltrates 12/27/2024 patient seen and examined at bedside. No acute events overnight. Still in the ICU. Still having dry cough. High flow nasal cannula for O2 support flow rate 50 FiO2 60% Labs: WBC 20.3, hemoglobin 10.6, platelet count 370,000, sodium 139, potassium 4.6, bicarb 33, BUN 59, creatinine 0.99, glucose 175, calcium 9.8 Imaging: Chest x-ray today showed stable pulmonary infiltrates 12/28/2024 patient seen and examined at bedside. No acute events overnight. Still in the ICU. Still requiring high flow nasal cannula rate 50 at 50% FiO2 Labs: WBC 19.6, hemoglobin 10.4, sodium 134, potassium 4, bicarb 33, BUN 66, c reatinine 1.12, glucose 205, magnesium 2.3 Imaging: Chest x-ray shows stable diffuse interstitial infiltrates 12/29/2024 patient seen and examined at bedside. No acute events overnight. Still in the ICU. No fevers or chills. O2 requirements decreasing. Labs: WBC 26.03, hemoglobin 10.7, sodium 136, bicarb 34, BUN 63, creatinine 1.11, glucose 185, magnesium 2.4 Imaging: Chest x-ray shows improving diffuse pulmonary infiltrates 12/30/2024 patient seen and examined at bedside. No acute events overnight. Downgraded to stepdown unit Currently on high flow nasal cannula 9 L which has improved. Labs: Sodium 136, potassium 4.7, bicarb 23, BUN 65, creatinine 1.2, glucose 186, calcium 9.4 12/31/2024 Patient is resting in the bed. Awake alert and oriented. Breathing status is better. Currently on 9 L oxygen via nasal cannula. No complaints of chest pain or worsening shortness of breath. Laboratory data showed WBC 27.0 hemoglobin 10.5 and platelets 275. Sodium 135 potassium 5.0 chloride 97 bicarb is 32 BUN 66 and creatinine 1.27 and blood sugar 222. 01/01/2025 patient seen and examined at bedside. No new complaints. Still currently on high flow nasal cannula 8 L for O2 support Labs: WBC 24.7, hemoglobin 10.3, sodium 136, potassium 5.1, bicarb 23, BUN 60, creatinine 1.01, glucose 172 Imaging: Chest x-ray today showed persistent pulmonary diffuse interstitial infiltrates 01/02/2025 patient seen and examined at bedside. Patient increased O2 requirements and is currently on Airvo flow 50 FiO2 60% Labs: sodium 136, potassium 5.1 bicarb 33, BUN 60, creatinine 1.01, glucose 172, calcium 9.5 Imaging: Chest x-ray this morning shows ongoing extensive patchy airspace opacities, new subcutaneous emphysema at the right base of the neck 01/03/2025 patient seen and examined at bedside. Patient still on Airvo low flow 50 FiO2 60% Labs: WBC 21.6, hemoglobin 10.3, platelet count 236,000, sodium 135, potassium 5.4, BUN 44, creatinine 0.96, glucose 181, calcium 9.3 Imaging: Chest x-ray today showed increasing subcutaneous emphysema at the left base of the neck with small pneumothorax on the right chest, stable bilateral airspace opacities 01/04/2025 Patient was on high flow oxygen patient is presently on 15 L 50% FiO2. Patient presently has 15% pneumothorax patient had a CT of the chest. Patient has significant subcutaneous emphysema. 01/05/2025 patient seen and examined at bedside. No acute events overnight. Patient currently on high flow nasal cannula flow 50, FiO2 45%. Complaining of chest pressure when coughing. Imaging: Chest x-ray today shows stable right-sided pneumothorax and bilateral subcutaneous neck emphysema with stable bilateral diffuse opacities Review of systems: Pertinent positives and negatives as discussed in HPI, a complete review of systems was performed and all other systems are negative. Physical examination: Vital signs reviewed General: non toxic, no distress, appears at stated age, on Airvo Derm: no unusual rashes/lesions, warm Head: atraumatic, normocephalic, symmetric Eyes: EOMI, anicteric sclera, pupils equal round reactive to light ENT: Nose and ears atraumatic Neck: No cervical lymphadenopathy, trachea midline, supple, crepitus on palpation of right and left neck Mouth: no lip lesion, mucus membranes moist Cardiovascular: S1S2 reg, no murmur Lungs: bibasilar fine rales, no accessory muscle use Abdominal: soft, nondistended, nontender to palpation, no guarding Ext: muscle strength 5 out of 5 in all 4 extremities grossly, no gross muscle atrophy, no contractures, positive dorsalis pedis pulse bilateral, no edema Neuro: CN II-XI grossly intact, no gross focal neuro deficits Psych: Alert and oriented x 3, appropriate affect and mood Assessment/Plan: Active: #. Acute hypoxic respiratory failure, secondary to ARDS #. Spotaneous pneumothorax with Subcutaneous emphysema #. HFrEF not in exacerbation #. Ischemic cardiomyopathy (EF 40-45% with AICD) #. Leukocytosis, likley steroid induced, r/o other causes Chest x-ray today shows stable right-sided pneumothorax and bilateral subcutaneous neck emphysema with stable bilateral diffuse opacities. Patient not in distress. Supportive oxygen as needed. Wean off as tolerated. Completed course of Abx Zithromax p.o and Rocephin IVPB on 12/22. Placed on empiric Cefepime IV per pulmonology On Solu-Medrol IV, Duoneb and Symbicort inhalers Switch lasix to 20mg p.o daily Daily weights, Strict InOs, Fluid restriction 1800 Blood cultures positive for staph mecA/C positive, likely contaminant. Repeat blood cultures negative Monitor CBC and renal fuction Pulmonology consulted by ED. Diflucan p.o daily for oral thrush #. Mechanical Fall secondary to above #. Recent Right anterior total hip arthroplasty Hip pelvis x-ray showed no acute osseous abnormalities. Ortho consulted by ED. No intervention recommended at this time Continue with PO norco prn PT OT consulted and patient would benefit from [facility] or LTAC. #. Normocytic anemia at baseline Monitor CBC. Transfuse if Hgb <7. #. Hyperkalemia, resolved #. Acute Kidney Injury, prerenal, resolved Avoid nephrotoxic agents. Hold farxiga Chronic Conditions: #. Diabetes mellitus, on insulin pump #. Hyperglycemia, steroid induced Hemoglobin A1c 7.3 in November 2024 Hold home insulin pump as she has run out of home insulin Glucose Accu-Cheks ACHS Insulin lispro 25 units AC-TID Glarigine 40 units BID Initiate Insulin sliding scale ACHS Monitor for hypoglycemia #. Hypertension #. Hyperlipidemia #. Obesity #. CAD status post CABG #. Osteoarthritis Resume home aspirin, bupropion 150, buspirone 10 mg, carvedilol 12.5 mg, clopidogrel 75 mg, entresto, ezetimibe 10 mg, fluvoxamine 100 mggabapentin 300 mg, Synthroid 125 mcg, rosuvastatin 40 mg, trazodone 50 mg DVT ppx: Heparin subq GI prophylaxis: Pantoprazole 40 mg IVP twice daily CODE STATUS: Full Discussed with: Patient Anticipated discharge place: Home Zoila Walsh MD PGY-1/[employer] Internal Medicine Dictation was produced using [employer] dictation software. please excuse any grammatical, word or spelling errors. Attestation: I have seen and examined this patient with my resident, assessment and plan discussed with the resident, agree with assessment and plan as written above. Dr. Godfrey Objective - Vital Signs Vital signs: Vital Signs Temp 98.3 F 01/05/25 03:11 Pulse 75 01/05/25 03:11 Resp 20 01/05/25 03:11 BP 144/69 01/05/25 03:11 Pulse Ox 90 L 01/05/25 07:16 FiO2 45 01/05/25 07:16 Intake & Output 01/04/25 01/05/25 01/05/25 18:59 06:59 18:59 Intake Total 720 Balance 720 Intake: Oral 720 Other: Voiding Method External Catheter External Catheter - Labs CBC & Chem 7: 01/04/25 07:56 01/04/25 07:56 Labs: Abnormal Lab Results - Last 24 Hours (Table) 01/04/25 01/04/25 01/04/25 Range/Units 07:56 07:56 11:21 WBC 19.84 H (4.50-10.00) 10*3/uL RBC 3.79 L (4.10-5.20) 10*6/uL Hgb 11.2 L (12.0-15.0) g/dL Hct 34.1 L (37.2-46.3) % Immature Gran # 0.33 H (0.00-0.04) 10*3/uL Neutrophils # 18.58 H (1.80-7.70) 10*3/uL Lymphocytes # 0.36 L (0.90-5.00) 10*3/uL Eosinophils # 0.00 L (0.04-0.35) 10*3/uL Sodium 133 L (137-145) mmol/L BUN 36 H (7-17) mg/dL Glucose 258 H (74-99) mg/dL POC Glucose (mg/dL) 461 H (70-110) mg/dL 01/04/25 01/04/25 01/05/25 Range/Units 16:20 20:09 02:09 WBC (4.50-10.00) 10*3/uL RBC (4.10-5.20) 10*6/uL Hgb (12.0-15.0) g/dL Hct (37.2-46.3) % Immature Gran # (0.00-0.04) 10*3/uL Neutrophils # (1.80-7.70) 10*3/uL Lymphocytes # (0.90-5.00) 10*3/uL Eosinophils # (0.04-0.35) 10*3/uL Sodium (137-145) mmol/L BUN (7-17) mg/dL Glucose (74-99) mg/dL POC Glucose (mg/dL) 394 H 379 H 126 H (70-110) mg/dL 01/05/25 Range/Units 07:07 WBC (4.50-10.00) 10*3/uL RBC (4.10-5.20) 10*6/uL Hgb (12.0-15.0) g/dL Hct (37.2-46.3) % Immature Gran # (0.00-0.04) 10*3/uL Neutrophils # (1.80-7.70) 10*3/uL Lymphocytes # (0.90-5.00) 10*3/uL Eosinophils # (0.04-0.35) 10*3/uL Sodium (137-145) mmol/L BUN (7-17) mg/dL Glucose (74-99) mg/dL POC Glucose (mg/dL) 196 H (70-110) mg/dL
[2025-01-05 16:45] LABS: Glucose,Whole Blood 336 mg/dL (70-110)
[2025-01-05] MEDS: PANTOPRAZOLE 40 MG TABLET PO SCH (16:54)
[2025-01-05] MEDS: HYDROcodone/APAP 5-325MG 1 EACH TAB PO PRN (17:59)
--- NOTE | 2025-01-05 19:15 | P.PN ---
Subjective Progress Note Date: 01/05/25 On 01/01/2025, the patient is being seen for a follow-up. The patient is hypoxic on 8 L of oxygen by nasal cannula. She easily desaturates upon minimal amount of mobility and this was noted while working with physical therapy as the patient was attempted to sit up in a chair and the patient became quite hypoxic where she dropped a pulse ox in the low 70s and the patient required 100% nonrebreather facemask for oxygen supplementation. At that point, I made recommendations to put the patient on a Airvo and she is currently on Airvo 50 L with an FiO2 of 80%. The patient has been in the hospital since 12/19/2024. The patient was initially seen in consult. The patient is known to have coronary disease with previous bypass surgery. She also has history of cardiomyopathy with impaired ejection fraction and she has an AICD in place. Her initial left- ventricular ejection fraction was estimated to be at 25% and the repeat echocardiogram that was done on 12/22/2024 showed some interval improvement in the left ventricular ejection fraction with that was estimated to be at around 40 to 45% and the patient has moderate global hypokinesis and dilated left ventricular size and wall thickness. The patient also has other comorbidities including hypertension, hyperlipidemia, insulin-dependent diabetes mellitus and osteoarthritis. Her condition decompensated after having a right anterior total hip arthroplasty that was done on 11/24/2024. Since then, the patient went to rehabilitation and she presented back to us with hypoxic respiratory failure. CAT scan of the chest was done 12/22/2024 showed diffuse scattered groundglass pulmonary patchy opacities consistent with cardiogenic versus noncardiogenic pulmonary edema/ARDS. Most recent chest x-ray from today still showing diffuse bilateral pulmonary infiltrates. Meanwhile, the patient was subjected to diuretics. She has no significant edema lower extremities. She became prerenal and her current Lasix is at 20 mg p.o. daily. Rest of her medications are essentially unchanged. She is on Symbicort and DuoNeb the right seems around-th e-clock. She remains on Coreg 12.5 mg p.o. twice a day and Lantus insulin 30 units twice daily and NovoLog sign scale coverage. She was started on IV Solu- Medrol 12/29/2024 and currently she is on Solu-Medrol 40 mg every 8 hours. She remains on Entresto. Family is at the bedside. On 01/02/2025, the patient is being seen for a follow-up. The patient remains on Airvo at 50 L with an FiO2 of 60%. Seems to be slightly more comfortable compared to yesterday. The patient has an acute lung injury/ARDS picture with diffuse groundglass by the patchy pulmonary infiltrates. Follow-up chest x-ray from today shows ongoing extensive bilateral patchy airspace disease and infiltrates without any significant change. The patient is currently on IV cefepime as an empiric antibiotic coverage and the patient is also being treated with systemic steroids and the patient is currently on IV Solu-Medrol 40 mg every 8 hours. Blood sugars are being managed with Lantus insulin 30 units twice daily and NovoLog 20 units 3 times daily with meals and a sliding scale coverage. The patient is also known to have CHF, impaired LV function maintained on Entresto and Coreg. The patient is also on oral Lasix 20 mg p.o. daily. No other complaints otherwise for now. The white cell count is 22.8, hemoglobin is 10.1 and the platelet count of 250. BUN is 49 with a creatinine of 1.02. Sodium levels at 137 and a potassium level is at 5.2. Denies having any chest pain. Is having episodes of dry cough. Known to have coronary artery disease, diabetes mellitus, hypertension hyperlipidemia in addition to multiple other comorbidities as mentioned in the medical records. 01/03/2025, the patient remains quite hypoxic and she remains on Airvo at 50 L with an FiO2 of 60%. The patient continues to have a dry cough. She did experience pain along the right chest while coughing. Based on that, repeat chest x-ray was done this morning and the patient was found to have some limited subcutaneous emphysema along the right chest wall extending to the neck. There was also a very tiny right-sided pneumothorax laterally positioned around 4 mm from the chest wall. Continues to be short of breath even at rest. No significant tachypnea. Oxygenation remains stable and the patient's pulse ox 97% on the current Airvo setting. She is covered with IV cefepime. This is an empiric antibiotic coverage. The patient is also on IV Solu-Medrol 40 mg every 8 hours. Remains on DuoNeb W treatments [id number]. Remains on Symbicort. Remains on Plavix. Rest of the home medications been essentially unchanged. Cardiac medications are also unchanged. Blood work shows a white cell count of 21 with a hemoglobin 10.3 and a platelet count of 236. Sodium is at 135, potassium is at 5.4, BUN is 44 with a creatinine of 0.9. 01/04/2025, the patient is being seen for a follow-up. The patient is in acute hypoxic respiratory failure due to complication of ARDS. A CAT scan of the chest was also obtained yesterday and showed diffuse bilateral pulmonary infiltrates. The patient also had extensive subcutaneous emphysema present involving the neck and the chest and the patient had small bilateral pneumoth oraces and no obvious tendon was also present. There was also increased interstitial lung markings bilaterally consistent with ARDS. Despite this complication, the patient remains on Airvo with flow of 50% FiO2 of 44%. Pulse ox noted at 91 to 92%. Remains on IV Solu-Medrol. Remains on IV cefepime as an empiric antibiotic coverage. Rest of the medication remains unchanged. She continues to have a dry cough. The white cell count at 19.8 with a hemoglobin 11.2 and a platelet count of 220. Electrolytes are all within normal limits. BUN 36 and a creatinine 0.75. No altered mentation. The patient denies having any interval worsening in the respiratory status compared to yesterday. Family is at the bedside and had a lengthy discussion with them. The prognosis in general is poor yet the patient remains stable in terms of her oxygenation. 01/05/2025, the patient continues to have worsening in her subcutaneous emphysema and this is extending to her neck and chest and arms. Nevertheless, her oxygenation remained stable. The patient remains on Airvo at 50 L with an FiO2 of 50%. Repeat chest x-ray shows extensive subcutaneous emphysema involving the neck and the chest and cardiomegaly and diffuse bilateral pulmonary filtrates. Minimal pneumothorax is again noted which is essentially stable. The patient remains on IV Solu-Medrol. No repeat labs from today. The patient received Solu-Medrol 40 mg every 12 hours. The patient remains on DuoNeb the regiment [id number]. The patient remains on empiric antibiotic coverage with IV cefepime and patient is also on Diflucan. Rest of medication remains unchanged. Noted the viral screen that was done time of admission 12/18/2024 was within normal limits. The most recent blood culture from 12/22/2024 was within normal l imits. Procalcitonin level was less than 0.2. Objective - Vital Signs Vital signs: Vital Signs Temp 98.5 F 01/05/25 08:57 Pulse 77 01/05/25 11:55 Resp 18 01/05/25 11:55 BP 159/75 01/05/25 08:57 Pulse Ox 98 01/05/25 11:43 FiO2 60 01/05/25 11:46 Intake & Output 01/04/25 01/05/25 01/05/25 18:59 06:59 18:59 Intake Total 720 240 Balance 720 240 Intake: Oral 720 240 Other: Voiding Method External Catheter External Catheter External Catheter # Bowel Movements 1 - Exam No acute distress, oriented 3. Currently on 50 L Airvo with an FiO2 of 50 %, she does have some shortness of breath even at rest. Patient also has frequent episodes of a dry cough. HEENT examination is grossly unremarkable. Mucous membranes are moist. No oral lesions. Subcutaneous emphysema is noted over the neck area. Neck supple. Full range of motion. No adenopathy thyromegaly or neck vein distention. Cardiovascular examination reveals regular rhythm rate. S1-S2 normal. No S3 or S4. No discernible murmur noted. Lungs reveal minimal bibasilar crackles. No wheezes. No rhonchi. Breath sounds equal bilaterally. The crackles in the lung bases are essentially coarse. There is also evidence of some crepitation and subcutaneous emphysema a long the right neck and right chest wall. Subcutaneous emphysema overlying the chest. Abdomen soft bowel sounds are heard. No masses or tenderness. Extremities are intact. No cyanosis clubbing or edema. Skin is without rash or lesion. Neurologic examination is brief but nonfocal. - Labs CBC & Chem 7: 01/04/25 07:56 01/04/25 07:56 Labs: Abnormal Lab Results - Last 24 Hours (Table) 01/04/25 01/04/25 01/05/25 Range/Units 16:20 20:09 02:09 POC Glucose (mg/dL) 394 H 379 H 126 H (70-110) mg/dL 01/05/25 01/05/25 Range/Units 07:07 12:01 POC Glucose (mg/dL) 196 H 336 H (70-110) mg/dL Assessment and Plan Plan: ARDS/adult respiratory distress syndrome with secondary acute hypoxic respiratory failure with worsening in the patient's oxygenation and the patient is currently on Airvo at 50 L with FiO2 of 50 %. Chest x-ray is showing diffuse interstitial pulmonary infiltrates consistent with noncardiogenic pulmonary edema/ARDS. The CAT scan of the chest was also consistent with ARDS with secondary complications of bilateral minimal pneumothoraces, pneumomediastinum and subcutaneous emphysema. The patient is currently on IV Solu-Medrol. CHF seems to be quite well optimized and the patient's most recent echocardiogram showed an ejection fraction of 40 to 45%. The patient is also on empiric antibiotic coverage. Cefepime. Chest x-ray findings showing worsening of subcutaneous emphysema. Nevertheless, there is no worsening in the pneumothorax or oxygenation. Tiny bilateral pneumothoraces Pneumomediastinum. Stable subcutaneous emphysema secondary to above Acute febrile illness, recovered. Acute leukocytosis, gradually improving History of right direct anterior total hip arthroplasty on November 24, 2024 Chronic anemia and hemoglobin remained stable Hypertension. Hyperlipidemia. Insulin-dependent diabetes mellitus. Obesity with a BMI of 35.4 kg/m. Coronary artery disease, with history of CABG and cardiac stents. History of ischemic cardiomyopathy with an ejection fraction improved to 40 to 45%. Implanted AICD/pacemaker. Hypothyroidism. Anxiety/depression. Plan: Overall condition is stable and unchanged. Oxygenation remains unchanged on Airvo, currently on 50 L and FiO2 of 50% CAT scan of the chest was note No need for chest tube insertion at this point in time as the bilateral pneumothoraces are tiny and have not caused any significant hemodynamic compromise We will monitor with daily chest x-rays. Continue gentle diuresis to maintain negative fluid balance Continue IV Solu-Medrol 40 mg every 12 hours. Continue empiric antibiotic coverage with IV cefepime Check procalcitonin level nonelevated at less than 0.2 Daily chest x-rays Prognosis poor based on the above. Exact etiology for his acute lung injury is not clear. Could have been related to an aspiration pneumonia. Echocardiogram was noted Rest of the comorbidities are stable we will continue to follow make further recommendations based on her progress. Discussed the case with family at the bedside. Prognosis in general poor. There is increased risk of progression and development of pulmonary complication including the possibility of hypoxemic respiratory failure interval worsening in pneumothorax. Patient and the family was made aware. Sister, daughter, and are at the bedside.
[2025-01-05 20:07] LABS: Glucose,Whole Blood 236 mg/dL (70-110)
[2025-01-05] MEDS: methylPREDNISolone SOD SUCCI 40 MG/ML 1 ML VIAL IV SCH (20:21)
[2025-01-06 02:06] LABS: Glucose,Whole Blood 112 mg/dL (70-110)
[2025-01-06 05:19] LABS: Glucose,Whole Blood 75 mg/dL (70-110)
[2025-01-06 07:59] LABS: Glucose,Whole Blood 146 mg/dL (70-110)
--- NOTE | 2025-01-06 09:24 | P.PN ---
Subjective Progress Note Date: 01/05/25 Principal diagnosis: Reason for follow-up is a positive blood culture Patient is a 74-year-old female with a past medical history significant for Asthma, Blood Disorder, Coronary Artery Disease (CAD), Chest Pain / Angina, Heart Failure, Diabetes Mellitus, Eye Disorder, GERD/Reflux, Hyperlipidemia, Hypertension, Myocardial Infarction ([place]), Musculoskeletal Disorder, Osteoarthritis (OA), Renal Disease, Skin Disorder, Supraventricular Tachycardia (SVT), Thyroid Disorder who recently did have a right hip replacement, patient presented the hospital with increasing shortness of breath and cough did have a positive blood culture prompting this consultation. On today's evaluation that is 01/05/2025, the patient continues to be afebrile, the patient is on 50% Airvo and breathing slightly comfortably, the Pt denies having any chest pain or any worsening cough, the patient denies having any abdominal pain no vomiting or any diarrhea still complaining of some sore thr oat. No new labs has been obtained today Objective - Vital Signs Vital signs: Vital Signs Temp 98.5 F 01/05/25 08:57 Pulse 79 01/05/25 16:50 Resp 18 01/05/25 16:50 BP 138/78 01/05/25 16:50 Pulse Ox 97 01/05/25 16:50 FiO2 50 01/05/25 16:50 Intake & Output 01/04/25 01/05/25 01/05/25 18:59 06:59 18:59 Intake Total 720 240 Balance 720 240 Intake: Oral 720 240 Other: Voiding Method External Catheter External Catheter External Catheter # Bowel Movements 1 - Exam GENERAL DESCRIPTION: An elderly female up in the bed in no distress RESPIRATORY SYSTEM: Unlabored breathing , decreased breath sounds at bases HEART: S1 S2 regular rate and rhythm , ABDOMEN: Soft , no tenderness EXTREMITIES: No edema feet - Labs CBC & Chem 7: 01/04/25 07:56 01/04/25 07:56 Labs: Abnormal Lab Results - Last 24 Hours (Table) 01/04/25 01/05/25 01/05/25 Range/Units 20:09 02:09 07:07 POC Glucose (mg/dL) 379 H 126 H 196 H (70-110) mg/dL 01/05/25 01/05/25 Range/Units 12:01 16:44 POC Glucose (mg/dL) 336 H 336 H (70-110) mg/dL Assessment and Plan (1) Positive blood culture Current Visit: Yes Status: Acute Code(s): R78.81 - BACTEREMIA SNOMED Code(s): 632369688 (2) Leukocytosis Current Visit: Yes Status: Acute Code(s): D72.829 - ELEVATED WHITE BLOOD CELL COUNT, UNSPECIFIED SNOMED Code(s): 065525604 (3) Oropharyngeal candidiasis Current Visit: Yes Status: Acute Code(s): B37.0 - CANDIDAL STOMATITIS SNOMED Code(s): 10495942 Plan: 1patient with a positive blood culture with staph epi which is more likely skin contamination this patient who recently did have a right hip replacement however the right hip surgical site incision is currently healed with no cellulitis and the patient denies having any pain to the right hip area, no need for vancomycin however blood culture has been repeated 2patient presented hospital with increasing shortness of breath and did have a cough question of asthma exacerbation with tracheobronchitis chest x-ray was atypical pneumonia, patient did have a normal procalcitonin antibiotic has been discontinued 3patient has been complaining of sore throat and difficulty swallowing concerning for oropharyngeal candidiasis 4patient white count is trending down down to 19,000 as of yesterday no CBC was done today 5we will continue with Diflucan and nystatin swish and swallow and monitor clinical course closely Dictation was produced using [employer] dictation software. please excuse any grammatical, word or spelling errors. Time with Patient: Less than 30
[2025-01-06 09:46] LABS: Basophils # (A) 0.03 10*3/uL (0.00-0.10); Basophils % (A) 0.1 %; Eosinophils # (A) 0.13 10*3/uL (0.04-0.35); Eosinophils % (A) 0.6 %; HCT 33.2 % (37.2-46.3); HGB 10.4 g/dL (12.0-15.0); Lymphocytes # (A) 0.39 10*3/uL (0.90-5.00); Lymphocytes % (A) 1.9 %; MCH 28.8 pg (27.0-32.0); MCHC 31.3 g/dL (32.0-37.0); MCV 92.0 fL (80.0-97.0); Monocytes # (A) 0.52 10*3/uL (0.20-1.00); Monocytes % (A) 2.5 %; Neutrophils # (A) 19.53 10*3/uL (1.80-7.70); Neutrophils % (A) 93.6 %; Platelet Count 194 10*3/uL (140-440); RBC 3.61 10*6/uL (4.10-5.20); RDW 14.8 % (11.5-14.5); WBC 20.87 10*3/uL (4.50-10.00)
[2025-01-06 10:01] LABS: African American GFR (CKD) >90 (>60 ml/min/1.73 sqM); Anion Gap 8 mmol/L; Blood Urea Nitrogen 37 mg/dL (7-17); Calcium 9.2 mg/dL (8.4-10.2); Carbon Dioxide 22 mmol/L (22-30); Chloride 99 mmol/L (98-107); Glucose 214 mg/dL (74-99); Non-African American GFR(CKD) 83 (>60 ml/min/1.73 sqM); Potassium 5.2 mmol/L (3.5-5.1); Sodium 129 mmol/L (137-145)
[2025-01-06 12:05] LABS: Glucose,Whole Blood 276 mg/dL (70-110)
--- NOTE | 2025-01-06 15:08 | P.PN ---
Subjective Progress Note Date: 01/06/25 Principal diagnosis: Reason for follow-up is a positive blood culture Patient is a 74-year-old female with a past medical history significant for Asthma, Blood Disorder, Coronary Artery Disease (CAD), Chest Pain / Angina, Heart Failure, Diabetes Mellitus, Eye Disorder, GERD/Reflux, Hyperlipidemia, Hypertension, Myocardial Infarction ([place]), Musculoskeletal Disorder, Osteoarthritis (OA), Renal Disease, Skin Disorder, Supraventricular Tachycardia (SVT), Thyroid Disorder who recently did have a right hip replacement, patient presented the hospital with increasing shortness of breath and cough did have a positive blood culture prompting this consultation. On today's evaluation that is 01/07/2024, patient did have a temperature of 98.1F this morning and denies having any chills, patient is on Airvo 50% FiO2 and breathing slightly comfortably denies any chest pain or worsening cough no abdominal pain or diarrhea. Patient white count is 20.87, creatinine 0.73 blood culture repeat has been negative Objective - Vital Signs Vital signs: Vital Signs Temp 98.1 F 01/06/25 08:00 Pulse 76 01/06/25 13:20 Resp 20 01/06/25 08:00 BP 136/63 01/06/25 11:23 Pulse Ox 93 L 01/06/25 13:12 FiO2 50 01/06/25 13:12 Intake & Output 01/05/25 01/06/25 01/06/25 18:59 06:59 18:59 Intake Total 480 476 Output Total 400 Balance 480 -400 476 Weight 69.5 kg Intake: Oral 480 476 Output: Urine 400 Other: Voiding Method External Catheter External Catheter External Catheter # Bowel Movements 1 1 - Exam GENERAL DESCRIPTION: An elderly female up in the bed in no distress RESPIRATORY SYSTEM: Unlabored breathing , decreased breath sounds at bases HEART: S1 S2 regular rate and rhythm , ABDOMEN: Soft , no tenderness EXTREMITIES: No edema feet - Labs CBC & Chem 7: 01/06/25 09:10 01/06/25 09:10 Labs: Abnormal Lab Results - Last 24 Hours (Table) 01/05/25 01/05/25 01/06/25 Range/Units 16:44 20:06 02:04 WBC (4.50-10.00) 10*3/uL RBC (4.10-5.20) 10*6/uL Hgb (12.0-15.0) g/dL Hct (37.2-46.3) % MCHC (32.0-37.0) g/dL Immature Gran # (0.00-0.04) 10*3/uL Neutrophils # (1.80-7.70) 10*3/uL Lymphocytes # (0.90-5.00) 10*3/uL Sodium (137-145) mmol/L Potassium (3.5-5.1) mmol/L BUN (7-17) mg/dL Glucose (74-99) mg/dL POC Glucose (mg/dL) 336 H 236 H 112 H (70-110) mg/dL 01/06/25 01/06/25 01/06/25 Range/Units 07:58 09:10 09:10 WBC 20.87 H (4.50-10.00) 10*3/uL RBC 3.61 L (4.10-5.20) 10*6/uL Hgb 10.4 L (12.0-15.0) g/dL Hct 33.2 L (37.2-46.3) % MCHC 31.3 L (32.0-37.0) g/dL Immature Gran # 0.27 H (0.00-0.04) 10*3/uL Neutrophils # 19.53 H (1.80-7.70) 10*3/uL Lymphocytes # 0.39 L (0.90-5.00) 10*3/uL Sodium 129 L (137-145) mmol/L Potassium 5.2 H (3.5-5.1) mmol/L BUN 37 H (7-17) mg/dL Glucose 214 H (74-99) mg/dL POC Glucose (mg/dL) 146 H (70-110) mg/dL 01/06/25 Range/Units 12:03 WBC (4.50-10.00) 10*3/uL RBC (4.10-5.20) 10*6/uL Hgb (12.0-15.0) g/dL Hct (37.2-46.3) % MCHC (32.0-37.0) g/dL Immature Gran # (0.00-0.04) 10*3/uL Neutrophils # (1.80-7.70) 10*3/uL Lymphocytes # (0.90-5.00) 10*3/uL Sodium (137-145) mmol/L Potassium (3.5-5.1) mmol/L BUN (7-17) mg/dL Glucose (74-99) mg/dL POC Glucose (mg/dL) 276 H (70-110) mg/dL Assessment and Plan (1) Positive blood culture Current Visit: Yes Status: Acute Code(s): R78.81 - BACTEREMIA SNOMED Code(s): 171834757 (2) Leukocytosis Current Visit: Yes Status: Acute Code(s): D72.829 - ELEVATED WHITE BLOOD CELL COUNT, UNSPECIFIED SNOMED Code(s): 036513631 (3) Oropharyngeal candidiasis Current Visit: Yes Status: Acute Code(s): B37.0 - CANDIDAL STOMATITIS SNOMED Code(s): 81611170 Plan: 1patient with a positive blood culture with staph epi which is more likely skin contamination this patient who recently did have a right hip replacement however the right hip surgical site incision is currently healed with no cellulitis and the patient denies having any pain to the right hip area, no need for vancomycin however blood culture has been repeated which has been negative 2patient has been complaining of sore throat and difficulty swallowing concerning for oropharyngeal candidiasis for the patient is currently covered with Diflucan and nystatin swish and swallow to continue antibiotic clinical course closely Dictation was produced using [employer] dictation software. please excuse any grammatical, word or spelling errors. Time with Patient: Less than 30
[2025-01-06 16:21] LABS: Glucose,Whole Blood 260 mg/dL (70-110)
--- NOTE | 2025-01-06 16:48 | PN ---
PROGRESS NOTE DATE OF SERVICE: 01/06/2025 SUBJECTIVE: This is a 74-year-old woman, is admitted with spontaneous pneumothorax as well as pneumonia versus ARDS. She is being closely monitored. No chest pain. No palpitations. PAST MEDICAL HISTORY: Reviewed. REVIEW OF SYSTEMS: A 14-point review of systems negative except as mentioned earlier. CURRENT MEDICATIONS: Reviewed. PHYSICAL EXAMINATION: VITAL SIGNS: Pulse is 76, blood pressure 130/62, and respirations 17. HEENT: Conjunctivae normal. RESPIRATIONS: Breath sounds diminished at the bases. A few scattered rhonchi. ABDOMEN: Soft. NERVOUS SYSTEM: Nonfocal. LABORATORY DATA: Reviewed. The blood cultures, Staph epidermidis. ASSESSMENT: 1. Acute hypoxic respiratory failure secondary to acute respiratory distress syndrome. 2. Spontaneous pneumothorax with subcutaneous emphysema. 3. Ischemic cardiomyopathy. 4. Possible bilateral pneumonia. 5. History of congestive heart failure. 6. Hypertension. 7. Hyperlipidemia. 8. Multiple complex medical issues. RECOMMENDATIONS AND DISCUSSION: This 74-year-old woman presented with multiple complex medical issues. We will monitor the patient closely. Continue current management and continue symptomatic treatment. The patient is on high flow nasal cannula. Continue with current medications. Continue with the bronchodilators. The patient is on cefepime. Cultures are contaminated so far. Guarded prognosis. See orders for details. MMODL / IJN: [id number] /
[2025-01-06 20:06] LABS: Glucose,Whole Blood 163 mg/dL (70-110)
--- NOTE | 2025-01-06 23:18 | P.PN ---
Subjective Progress Note Date: 01/06/25 On 01/01/2025, the patient is being seen for a follow-up. The patient is hypoxic on 8 L of oxygen by nasal cannula. She easily desaturates upon minimal amount of mobility and this was noted while working with physical therapy as the patient was attempted to sit up in a chair and the patient became quite hypoxic where she dropped a pulse ox in the low 70s and the patient required 100% nonrebreather facemask for oxygen supplementation. At that point, I made recommendations to put the patient on a Airvo and she is currently on Airvo 50 L with an FiO2 of 80%. The patient has been in the hospital since 12/19/2024. The patient was initially seen in consult. The patient is known to have coronary disease with previous bypass surgery. She also has history of cardiomyopathy with impaired ejection fraction and she has an AICD in place. Her initial left- ventricular ejection fraction was estimated to be at 25% and the repeat echocardiogram that was done on 12/22/2024 showed some interval improvement in the left ventricular ejection fraction with that was estimated to be at around 40 to 45% and the patient has moderate global hypokinesis and dilated left ventricular size and wall thickness. The patient also has other comorbidities including hypertension, hyperlipidemia, insulin-dependent diabetes mellitus and osteoarthritis. Her condition decompensated after having a right anterior total hip arthroplasty that was done on 11/24/2024. Since then, the patient went to rehabilitation and she presented back to us with hypoxic respiratory failure. CAT scan of the chest was done 12/22/2024 showed diffuse scattered groundglass pulmonary patchy opacities consistent with cardiogenic versus noncardiogenic pulmonary edema/ARDS. Most recent chest x-ray from today still showing diffuse bilateral pulmonary infiltrates. Meanwhile, the patient was subjected to diuretics. She has no significant edema lower extremities. She became prerenal and her current Lasix is at 20 mg p.o. daily. Rest of her medications are essentially unchanged. She is on Symbicort and DuoNeb the right seems around-th e-clock. She remains on Coreg 12.5 mg p.o. twice a day and Lantus insulin 30 units twice daily and NovoLog sign scale coverage. She was started on IV Solu- Medrol 12/29/2024 and currently she is on Solu-Medrol 40 mg every 8 hours. She remains on Entresto. Family is at the bedside. On 01/02/2025, the patient is being seen for a follow-up. The patient remains on Airvo at 50 L with an FiO2 of 60%. Seems to be slightly more comfortable compared to yesterday. The patient has an acute lung injury/ARDS picture with diffuse groundglass by the patchy pulmonary infiltrates. Follow-up chest x-ray from today shows ongoing extensive bilateral patchy airspace disease and infiltrates without any significant change. The patient is currently on IV cefepime as an empiric antibiotic coverage and the patient is also being treated with systemic steroids and the patient is currently on IV Solu-Medrol 40 mg every 8 hours. Blood sugars are being managed with Lantus insulin 30 units twice daily and NovoLog 20 units 3 times daily with meals and a sliding scale coverage. The patient is also known to have CHF, impaired LV function maintained on Entresto and Coreg. The patient is also on oral Lasix 20 mg p.o. daily. No other complaints otherwise for now. The white cell count is 22.8, hemoglobin is 10.1 and the platelet count of 250. BUN is 49 with a creatinine of 1.02. Sodium levels at 137 and a potassium level is at 5.2. Denies having any chest pain. Is having episodes of dry cough. Known to have coronary artery disease, diabetes mellitus, hypertension hyperlipidemia in addition to multiple other comorbidities as mentioned in the medical records. 01/03/2025, the patient remains quite hypoxic and she remains on Airvo at 50 L with an FiO2 of 60%. The patient continues to have a dry cough. She did experience pain along the right chest while coughing. Based on that, repeat chest x-ray was done this morning and the patient was found to have some limited subcutaneous emphysema along the right chest wall extending to the neck. There was also a very tiny right-sided pneumothorax laterally positioned around 4 mm from the chest wall. Continues to be short of breath even at rest. No significant tachypnea. Oxygenation remains stable and the patient's pulse ox 97% on the current Airvo setting. She is covered with IV cefepime. This is an empiric antibiotic coverage. The patient is also on IV Solu-Medrol 40 mg every 8 hours. Remains on DuoNeb W treatments [id number]. Remains on Symbicort. Remains on Plavix. Rest of the home medications been essentially unchanged. Cardiac medications are also unchanged. Blood work shows a white cell count of 21 with a hemoglobin 10.3 and a platelet count of 236. Sodium is at 135, potassium is at 5.4, BUN is 44 with a creatinine of 0.9. 01/04/2025, the patient is being seen for a follow-up. The patient is in acute hypoxic respiratory failure due to complication of ARDS. A CAT scan of the chest was also obtained yesterday and showed diffuse bilateral pulmonary infiltrates. The patient also had extensive subcutaneous emphysema present involving the neck and the chest and the patient had small bilateral pneumoth oraces and no obvious tendon was also present. There was also increased interstitial lung markings bilaterally consistent with ARDS. Despite this complication, the patient remains on Airvo with flow of 50% FiO2 of 44%. Pulse ox noted at 91 to 92%. Remains on IV Solu-Medrol. Remains on IV cefepime as an empiric antibiotic coverage. Rest of the medication remains unchanged. She continues to have a dry cough. The white cell count at 19.8 with a hemoglobin 11.2 and a platelet count of 220. Electrolytes are all within normal limits. BUN 36 and a creatinine 0.75. No altered mentation. The patient denies having any interval worsening in the respiratory status compared to yesterday. Family is at the bedside and had a lengthy discussion with them. The prognosis in general is poor yet the patient remains stable in terms of her oxygenation. 01/05/2025, the patient continues to have worsening in her subcutaneous emphysema and this is extending to her neck and chest and arms. Nevertheless, her oxygenation remained stable. The patient remains on Airvo at 50 L with an FiO2 of 50%. Repeat chest x-ray shows extensive subcutaneous emphysema involving the neck and the chest and cardiomegaly and diffuse bilateral pulmonary filtrates. Minimal pneumothorax is again noted which is essentially stable. The patient remains on IV Solu-Medrol. No repeat labs from today. The patient received Solu-Medrol 40 mg every 12 hours. The patient remains on DuoNeb the regiment [id number]. The patient remains on empiric antibiotic coverage with IV cefepime and patient is also on Diflucan. Rest of medication remains unchanged. Noted the viral screen that was done time of admission 12/18/2024 was within normal limits. The most recent blood culture from 12/22/2024 was within normal l imits. Procalcitonin level was less than 0.2. On 01/06/2025, the patient's overall condition remains unchanged compared to yesterday. The patient remains on Airvo and the patient remains on 50 L with an FiO2 of 50%. Pulse ox is 94% room air oxygen. No interval worsening of the subcutaneous emphysema. No worsening in the facial or the neck swelling. The patient remains hemodynamically stable. Cough has subsided compared to yesterday. No fever. No chills. No other new complaints otherwise for now. She remains on IV Solu-Medrol. She remains on IV cefepime. Rest of medications are unchanged. The white cell count of 20 with a hemoglobin 10.4 and a platelet count of 194. Sodium levels at 129, potassium is at 5.2 with a BUN of 37 and a creatinine of 0.7. Awake and alert and communicating. Family is at the bedside. Objective - Vital Signs Vital signs: Vital Signs Temp 98.1 F 01/06/25 08:00 Pulse 70 01/06/25 11:23 Resp 20 01/06/25 08:00 BP 136/63 01/06/25 11:23 Pulse Ox 91 L 01/06/25 11:23 FiO2 50 01/06/25 11:23 Intake & Output 01/05/25 01/06/25 01/06/25 18:59 06:59 18:59 Intake Total 480 240 Output Total 400 Balance 480 -400 240 Weight 69.5 kg Intake: Oral 480 240 Output: Urine 400 Other: Voiding Method External Catheter External Catheter External Catheter # Bowel Movements 1 1 - Exam No acute distress, oriented 3. Currently on 50 L Airvo with an FiO2 of 50 %, she does have some shortness of breath even at rest. Patient also has frequent episodes of a dry cough. HEENT examination is grossly unremarkable. Mucous membranes are moist. No oral lesions. Subcutaneous emphysema is noted over the neck area. Neck supple. Full range of motion. No adenopathy thyromegaly or neck vein distention. Cardiovascular examination reveals regular rhythm rate. S1-S2 normal. No S3 or S4. No discernible murmur noted. Lungs reveal minimal bibasilar crackles. No wheezes. No rhonchi. Breath sounds equal bilaterally. The crackles in the lung bases are essentially coarse. There is also evidence of some crepitation and subcutaneous emphysema along the right neck and right chest wall. Subcutaneous emphysema overlying the chest. Abdomen soft bowel sounds are heard. No masses or tenderness. Extremities are intact. No cyanosis clubbing or edema. Skin is without rash or lesion. Neurologic examination is brief but nonfocal. - Labs CBC & Chem 7: 01/06/25 09:10 01/06/25 09:10 Labs: Abnormal Lab Results - Last 24 Hours (Table) 01/05/25 01/05/25 01/05/25 Range/Units 12:01 16:44 20:06 WBC (4.50-10.00) 10*3/uL RBC (4.10-5.20) 10*6/uL Hgb (12.0-15.0) g/dL Hct (37.2-46.3) % MCHC (32.0-37.0) g/dL Immature Gran # (0.00-0.04) 10*3/uL Neutrophils # (1.80-7.70) 10*3/uL Lymphocytes # (0.90-5.00) 10*3/uL Sodium (137-145) mmol/L Potassium (3.5-5.1) mmol/L BUN (7-17) mg/dL Glucose (74-99) mg/dL POC Glucose (mg/dL) 336 H 336 H 236 H (70-110) mg/dL 01/06/25 01/06/25 01/06/25 Range/Units 02:04 07:58 09:10 WBC 20.87 H (4.50-10.00) 10*3/uL RBC 3.61 L (4.10-5.20) 10*6/uL Hgb 10.4 L (12.0-15.0) g/dL Hct 33.2 L (37.2-46.3) % MCHC 31.3 L (32.0-37.0) g/dL Immature Gran # 0.27 H (0.00-0.04) 10*3/uL Neutrophils # 19.53 H (1.80-7.70) 10*3/uL Lymphocytes # 0.39 L (0.90-5.00) 10*3/uL Sodium (137-145) mmol/L Potassium (3.5-5.1) mmol/L BUN (7-17) mg/dL Glucose (74-99) mg/dL POC Glucose (mg/dL) 112 H 146 H (70-110) mg/dL 01/06/25 Range/Units 09:10 WBC (4.50-10.00) 10*3/uL RBC (4.10-5.20) 10*6/uL Hgb (12.0-15.0) g/dL Hct (37.2-46.3) % MCHC (32.0-37.0) g/dL Immature Gran # (0.00-0.04) 10*3/uL Neutrophils # (1.80-7.70) 10*3/uL Lymphocytes # (0.90-5.00) 10*3/uL Sodium 129 L (137-145) mmol/L Potassium 5.2 H (3.5-5.1) mmol/L BUN 37 H (7-17) mg/dL Glucose 214 H (74-99) mg/dL POC Glucose (mg/dL) (70-110) mg/dL Assessment and Plan Plan: ARDS/adult respiratory distress syndrome with secondary acute hypoxic respiratory failure with worsening in the patient's oxygenation and the patient is currently on Airvo at 50 L with FiO2 of 50 %. Chest x-ray is showing diffuse interstitial pulmonary infiltrates consistent with noncardiogenic pulmonary edema/ARDS. The CAT scan of the chest was also consistent with ARDS with secondary complications of bilateral minimal pneumothoraces, pneumomediastinum and subcutaneous emphysema. The patient is currently on IV Solu-Medrol. CHF seems to be quite well optimized and the patient's most recent echocardiogram showed an ejection fraction of 40 to 45%. The patient is also on empiric antibiotic coverage. Cefepime. Chest x-ray findings showing worsening of subcutaneous emphysema. Nevertheless, there is no worsening in the pneumothorax or oxygenation. Tiny bilateral pneumothoraces Pneumomediastinum. Stable subcutaneous emphysema secondary to above Acute febrile illness, recovered. Acute leukocytosis, gradually improving History of right direct anterior total hip arthroplasty on November 24, 2024 Chronic anemia and hemoglobin remained stable Hypertension. Hyperlipidemia. Insulin-dependent diabetes mellitus. Obesity with a BMI of 35.4 kg/m. Coronary artery disease, with history of CABG and cardiac stents. History of ischemic cardiomyopathy with an ejection fraction improved to 40 to 45%. Implanted AICD/pacemaker. Hypothyroidism. Anxiety/depression. Plan: Overall condition is stable and unchanged. The patient has no interval worsening shortness of breath. No interval worsening in the oxygenation. Remains on Airvo. Subcutaneous emphysema remains clinically unchanged. Labs were reviewed Obtain a follow-up chest x-ray in a.m. Oxygenation remains unchanged on Airvo, currently on 50 L and FiO2 of 50% CAT scan of the chest was note No need for chest tube insertion at this point in time as the bilateral pneumothoraces are tiny and have not caused any significant hemodynamic compromise We will monitor with daily chest x-rays. Continue gentle diuresis to maintain negative fluid balance Continue IV Solu-Medrol 40 mg every 12 hours. Continue empiric antibiotic coverage with IV cefepime Check procalcitonin level nonelevated at less than 0.2 Prognosis poor based on the above. Exact etiology for his acute lung injury is not clear. Could have been related to an aspiration pneumonia. Echocardiogram was noted Rest of the comorbidities are stable we will continue to follow make further recommendations based on her progress. Discussed the case with family at the bedside. Prognosis in general poor. There is increased risk of progression and development of pulmonary complication including the possibility of hypoxemic respiratory failure interval worsening in pneumothorax. Patient and the family was made aware. Time with Patient: Greater than 30
[2025-01-07 02:03] LABS: Glucose,Whole Blood 91 mg/dL (70-110)
--- NOTE | 2025-01-07 07:09 | XR ---
EXAMINATION TYPE: XR chest 1V DATE OF EXAM: 01/07/2025 5:14 AM COMPARISON: Chest radiographs from 01/06/2028. CLINICAL INDICATION: Female, 74 years old with history of ARDS; [facility] TECHNIQUE: XR chest 1V Frontal view of the chest. FINDINGS: Lungs/Pleura: There is no evidence of pleural effusion, focal consolidation, or pneumothorax. Pulmonary vascularity: Unremarkable. Heart/mediastinum: Cardiomediastinal silhouette is enlarged. Three lead cardiac conduction device ove rlying the left hemithorax with lead tips projecting over the right ventricle, right atrium and coron hailey sinus. Musculoskeletal: No acute osseous pathology. Other findings: Subcutaneous emphysema scattered throughout the visualized thorax. IMPRESSION: 1. Diffuse subcutaneous emphysema. 2. Cardiomegaly with pulmonary edema. [facility], , 01/07/2025 7:07 AM
[2025-01-07 07:45] LABS: Glucose,Whole Blood 156 mg/dL (70-110)
[2025-01-07 08:09] LABS: African American GFR (CKD) >90 (>60 ml/min/1.73 sqM); Anion Gap 4 mmol/L; Blood Urea Nitrogen 31 mg/dL (7-17); Calcium 9.3 mg/dL (8.4-10.2); Carbon Dioxide 22 mmol/L (22-30); Chloride 105 mmol/L (98-107); Glucose 138 mg/dL (74-99); Non-African American GFR(CKD) 90 (>60 ml/min/1.73 sqM); Potassium 5.0 mmol/L (3.5-5.1); Sodium 131 mmol/L (137-145)
[2025-01-07 09:29] LABS: Basophils # (A) 0.01 10*3/uL (0.00-0.10); Basophils % (A) 0.1 %; Eosinophils # (A) 0.05 10*3/uL (0.04-0.35); Eosinophils % (A) 0.3 %; HCT 32.9 % (37.2-46.3); HGB 10.3 g/dL (12.0-15.0); Lymphocytes # (A) 0.39 10*3/uL (0.90-5.00); Lymphocytes % (A) 2.4 %; MCH 28.6 pg (27.0-32.0); MCHC 31.3 g/dL (32.0-37.0); MCV 91.4 fL (80.0-97.0); Monocytes # (A) 0.19 10*3/uL (0.20-1.00); Monocytes % (A) 1.2 %; Neutrophils # (A) 15.27 10*3/uL (1.80-7.70); Neutrophils % (A) 95.1 %; Platelet Count 160 10*3/uL (140-440); RBC 3.60 10*6/uL (4.10-5.20); RDW 14.7 % (11.5-14.5); WBC 16.06 10*3/uL (4.50-10.00)
[2025-01-07 11:57] LABS: Glucose,Whole Blood 149 mg/dL (70-110)
--- NOTE | 2025-01-07 15:33 | P.PN ---
Subjective Progress Note Date: 01/07/25 Principal diagnosis: Reason for follow-up is a positive blood culture Patient is a 74-year-old female with a past medical history significant for Asthma, Blood Disorder, Coronary Artery Disease (CAD), Chest Pain / Angina, Heart Failure, Diabetes Mellitus, Eye Disorder, GERD/Reflux, Hyperlipidemia, Hypertension, Myocardial Infarction ([place]), Musculoskeletal Disorder, Osteoarthritis (OA), Renal Disease, Skin Disorder, Supraventricular Tachycardia (SVT), Thyroid Disorder who recently did have a right hip replacement, patient presented the hospital with increasing shortness of breath and cough did have a positive blood culture prompting this consultation. On today's evaluation that is 01/07/2025, Patient is afebrile patient is currently on-year-old 50% FiO2 denies any worsening shortness of breath no chest pain occasional cough still, some sore throat no abdominal pain or diarrhea. Patient white count is down to 16.06, creatinine 0.64 blood culture repeat has b een negative Objective - Vital Signs Vital signs: Vital Signs Temp 97.0 F L 01/07/25 08:03 Pulse 72 01/07/25 12:37 Resp 20 01/07/25 12:37 BP 138/77 01/07/25 12:37 Pulse Ox 95 01/07/25 12:37 FiO2 50 01/07/25 12:37 Intake & Output 01/06/25 01/07/25 01/07/25 18:59 06:59 18:59 Intake Total 712 236 Output Total 700 950 700 Balance 81 -473 -705 Weight 86 kg Intake: Oral 712 236 Output: Urine 700 950 700 Other: Voiding Method External Catheter External Catheter External Catheter # Voids 1 1 - Exam GENERAL DESCRIPTION: An elderly female up in the bed in no distress RESPIRATORY SYSTEM: Unlabored breathing , decreased breath sounds at bases HEART: S1 S2 regular rate and rhythm , ABDOMEN: Soft , no tenderness EXTREMITIES: No edema feet - Labs CBC & Chem 7: 01/07/25 09:06 01/07/25 07:32 Labs: Abnormal Lab Results - Last 24 Hours (Table) 01/06/25 01/06/25 01/07/25 Range/Units 16:20 20:04 07:32 WBC (4.50-10.00) 10*3/uL RBC (4.10-5.20) 10*6/uL Hgb (12.0-15.0) g/dL Hct (37.2-46.3) % MCHC (32.0-37.0) g/dL Immature Gran # (0.00-0.04) 10*3/uL Neutrophils # (1.80-7.70) 10*3/uL Lymphocytes # (0.90-5.00) 10*3/uL Monocytes # (0.20-1.00) 10*3/uL Sodium 131 L (137-145) mmol/L BUN 31 H (7-17) mg/dL Glucose 138 H (74-99) mg/dL POC Glucose (mg/dL) 260 H 163 H (70-110) mg/dL 01/07/25 01/07/25 01/07/25 Range/Units 07:42 09:06 11:55 WBC 16.06 H (4.50-10.00) 10*3/uL RBC 3.60 L (4.10-5.20) 10*6/uL Hgb 10.3 L (12.0-15.0) g/dL Hct 32.9 L (37.2-46.3) % MCHC 31.3 L (32.0-37.0) g/dL Immature Gran # 0.15 H (0.00-0.04) 10*3/uL Neutrophils # 15.27 H (1.80-7.70) 10*3/uL Lymphocytes # 0.39 L (0.90-5.00) 10*3/uL Monocytes # 0.19 L (0.20-1.00) 10*3/uL Sodium (137-145) mmol/L BUN (7-17) mg/dL Glucose (74-99) mg/dL POC Glucose (mg/dL) 156 H 149 H (70-110) mg/dL Assessment and Plan (1) Positive blood culture Current Visit: Yes Status: Acute Code(s): R78.81 - BACTEREMIA SNOMED Code(s): 098830464 (2) Leukocytosis Current Visit: Yes Status: Acute Code(s): D72.829 - ELEVATED WHITE BLOOD CELL COUNT, UNSPECIFIED SNOMED Code(s): 701510453 (3) Oropharyngeal candidiasis Current Visit: Yes Status: Acute Code(s): B37.0 - CANDIDAL STOMATITIS SNOMED Code(s): 22648000 Plan: 1patient with a positive blood culture with staph epi which is more likely skin contamination this patient who recently did have a right hip replacement however the right hip surgical site incision is currently healed with no cellulitis and the patient denies having any pain to the right hip area, no need for vancomycin however blood culture has been repeated which has been negative 2patient has been complaining of sore throat and difficulty swallowing concerning for oropharyngeal candidiasis for the patient is currently covered with Diflucan and nystatin swish and swallow 3the patient remains to be afebrile white count is trending down to continue with the current treatment and monitor clinical course closely Dictation was produced using [employer] dictation software. please excuse any grammatical, word or spelling errors. Time with Patient: Less than 30
[2025-01-07 16:42] LABS: Glucose,Whole Blood 231 mg/dL (70-110)
--- NOTE | 2025-01-07 18:04 | XR ---
EXAMINATION TYPE: XR chest 1V DATE OF EXAM: 01/07/2025 5:56 PM COMPARISON: Multiple radiographs, with the most recent on 01/07/2025, CT chest 01/03/2025 TECHNIQUE: XR chest 1V Portable AP radiograph of the chest. CLINICAL INDICATION:Female, 74 years old with history of increase in SQ emphysema; FINDINGS: Lungs/Pleura: Similar small bilateral pneumothoraces. Scattered airspace opacities throughout the mao gs again. No pleural effusion. Pulmonary vascularity: Unremarkable. Heart/mediastinum: Cardiomediastinal silhouette is enlarged. Pneumomediastinum redemonstrated. Three lead cardiac conduction device overlying the left hemithorax with lead tips projecting over the right ventricle, right atrium and coronary sinus. Musculoskeletal: No acute osseous pathology. Midline sternotomy wires are noted. Other findings: Similar diffuse subcutaneous emphysema scattered throughout the visualized thorax and visualized neck. IMPRESSION: 1. Similar small bilateral pneumothoraces. 2. Similar pneumomediastinum. 3. Similar diffuse subcutaneous emphysema. 4. Patchy scattered airspace opacities within the lungs suggesting pulmonary edema and/or ARDS. [facility], , 01/07/2025 6:01 PM
[2025-01-07 20:21] LABS: Glucose,Whole Blood 221 mg/dL (70-110)
--- NOTE | 2025-01-07 21:30 | P.PN ---
Subjective Progress Note Date: 01/07/25 On 01/01/2025, the patient is being seen for a follow-up. The patient is hypoxic on 8 L of oxygen by nasal cannula. She easily desaturates upon minimal amount of mobility and this was noted while working with physical therapy as the patient was attempted to sit up in a chair and the patient became quite hypoxic where she dropped a pulse ox in the low 70s and the patient required 100% nonrebreather facemask for oxygen supplementation. At that point, I made recommendations to put the patient on a Airvo and she is currently on Airvo 50 L with an FiO2 of 80%. The patient has been in the hospital since 12/19/2024. The patient was initially seen in consult. The patient is known to have coronary disease with previous bypass surgery. She also has history of cardiomyopathy with impaired ejection fraction and she has an AICD in place. Her initial left- ventricular ejection fraction was estimated to be at 25% and the repeat echocardiogram that was done on 12/22/2024 showed some interval improvement in the left ventricular ejection fraction with that was estimated to be at around 40 to 45% and the patient has moderate global hypokinesis and dilated left ventricular size and wall thickness. The patient also has other comorbidities including hypertension, hyperlipidemia, insulin-dependent diabetes mellitus and osteoarthritis. Her condition decompensated after having a right anterior total hip arthroplasty that was done on 11/24/2024. Since then, the patient went to rehabilitation and she presented back to us with hypoxic respiratory failure. CAT scan of the chest was done 12/22/2024 showed diffuse scattered groundglass pulmonary patchy opacities consistent with cardiogenic versus noncardiogenic pulmonary edema/ARDS. Most recent chest x-ray from today still showing diffuse bilateral pulmonary infiltrates. Meanwhile, the patient was subjected to diuretics. She has no significant edema lower extremities. She became prerenal and her current Lasix is at 20 mg p.o. daily. Rest of her medications are essentially unchanged. She is on Symbicort and DuoNeb the right seems around-th e-clock. She remains on Coreg 12.5 mg p.o. twice a day and Lantus insulin 30 units twice daily and NovoLog sign scale coverage. She was started on IV Solu- Medrol 12/29/2024 and currently she is on Solu-Medrol 40 mg every 8 hours. She remains on Entresto. Family is at the bedside. On 01/02/2025, the patient is being seen for a follow-up. The patient remains on Airvo at 50 L with an FiO2 of 60%. Seems to be slightly more comfortable compared to yesterday. The patient has an acute lung injury/ARDS picture with diffuse groundglass by the patchy pulmonary infiltrates. Follow-up chest x-ray from today shows ongoing extensive bilateral patchy airspace disease and infiltrates without any significant change. The patient is currently on IV cefepime as an empiric antibiotic coverage and the patient is also being treated with systemic steroids and the patient is currently on IV Solu-Medrol 40 mg every 8 hours. Blood sugars are being managed with Lantus insulin 30 units twice daily and NovoLog 20 units 3 times daily with meals and a sliding scale coverage. The patient is also known to have CHF, impaired LV function maintained on Entresto and Coreg. The patient is also on oral Lasix 20 mg p.o. daily. No other complaints otherwise for now. The white cell count is 22.8, hemoglobin is 10.1 and the platelet count of 250. BUN is 49 with a creatinine of 1.02. Sodium levels at 137 and a potassium level is at 5.2. Denies having any chest pain. Is having episodes of dry cough. Known to have coronary artery disease, diabetes mellitus, hypertension hyperlipidemia in addition to multiple other comorbidities as mentioned in the medical records. 01/03/2025, the patient remains quite hypoxic and she remains on Airvo at 50 L with an FiO2 of 60%. The patient continues to have a dry cough. She did experience pain along the right chest while coughing. Based on that, repeat chest x-ray was done this morning and the patient was found to have some limited subcutaneous emphysema along the right chest wall extending to the neck. There was also a very tiny right-sided pneumothorax laterally positioned around 4 mm from the chest wall. Continues to be short of breath even at rest. No significant tachypnea. Oxygenation remains stable and the patient's pulse ox 97% on the current Airvo setting. She is covered with IV cefepime. This is an empiric antibiotic coverage. The patient is also on IV Solu-Medrol 40 mg every 8 hours. Remains on DuoNeb W treatments [id number]. Remains on Symbicort. Remains on Plavix. Rest of the home medications been essentially unchanged. Cardiac medications are also unchanged. Blood work shows a white cell count of 21 with a hemoglobin 10.3 and a platelet count of 236. Sodium is at 135, potassium is at 5.4, BUN is 44 with a creatinine of 0.9. 01/04/2025, the patient is being seen for a follow-up. The patient is in acute hypoxic respiratory failure due to complication of ARDS. A CAT scan of the chest was also obtained yesterday and showed diffuse bilateral pulmonary infiltrates. The patient also had extensive subcutaneous emphysema present involving the neck and the chest and the patient had small bilateral pneumoth oraces and no obvious tendon was also present. There was also increased interstitial lung markings bilaterally consistent with ARDS. Despite this complication, the patient remains on Airvo with flow of 50% FiO2 of 44%. Pulse ox noted at 91 to 92%. Remains on IV Solu-Medrol. Remains on IV cefepime as an empiric antibiotic coverage. Rest of the medication remains unchanged. She continues to have a dry cough. The white cell count at 19.8 with a hemoglobin 11.2 and a platelet count of 220. Electrolytes are all within normal limits. BUN 36 and a creatinine 0.75. No altered mentation. The patient denies having any interval worsening in the respiratory status compared to yesterday. Family is at the bedside and had a lengthy discussion with them. The prognosis in general is poor yet the patient remains stable in terms of her oxygenation. 01/05/2025, the patient continues to have worsening in her subcutaneous emphysema and this is extending to her neck and chest and arms. Nevertheless, her oxygenation remained stable. The patient remains on Airvo at 50 L with an FiO2 of 50%. Repeat chest x-ray shows extensive subcutaneous emphysema involving the neck and the chest and cardiomegaly and diffuse bilateral pulmonary filtrates. Minimal pneumothorax is again noted which is essentially stable. The patient remains on IV Solu-Medrol. No repeat labs from today. The patient received Solu-Medrol 40 mg every 12 hours. The patient remains on DuoNeb the regiment [id number]. The patient remains on empiric antibiotic coverage with IV cefepime and patient is also on Diflucan. Rest of medication remains unchanged. Noted the viral screen that was done time of admission 12/18/2024 was within normal limits. The most recent blood culture from 12/22/2024 was within normal l imits. Procalcitonin level was less than 0.2. On 01/06/2025, the patient's overall condition remains unchanged compared to yesterday. The patient remains on Airvo and the patient remains on 50 L with an FiO2 of 50%. Pulse ox is 94% room air oxygen. No interval worsening of the subcutaneous emphysema. No worsening in the facial or the neck swelling. The patient remains hemodynamically stable. Cough has subsided compared to yesterday. No fever. No chills. No other new complaints otherwise for now. She remains on IV Solu-Medrol. She remains on IV cefepime. Rest of medications are unchanged. The white cell count of 20 with a hemoglobin 10.4 and a platelet count of 194. Sodium levels at 129, potassium is at 5.2 with a BUN of 37 and a creatinine of 0.7. Awake and alert and communicating. Family is at the bedside. 01/07/2025, patient's main complaint remains evidence of edema. To follow-up chest x-ray that was done showed very small bilateral pneumothoraces. There is also pneumomediastinum and diffuse subcutaneous emphysema. Nevertheless, despite this, the patient's oxygenation remained stable. The patient remains on a flow of 50 L with an FiO2 of 45%. Remains on IV Solu-Medrol. Remains on IV cefepime. White cell count is 16 with a hemoglobin 10.3 and a platelet count of 160. Electrolytes are normal. BUN 31 with a creatinine of 0.6. No significant cough. No worsening shortness of breath. No other new complaints otherwise for now. Objective - Vital Signs Vital signs: Vital Signs Temp 97.0 F L 01/07/25 08:03 Pulse 72 01/07/25 11:07 Resp 20 01/07/25 08:03 BP 112/63 01/07/25 08:03 Pulse Ox 96 01/07/25 10:54 FiO2 50 01/07/25 10:54 Intake & Output 01/06/25 01/07/25 01/07/25 18:59 06:59 18:59 Intake Total 712 236 Output Total 700 950 700 Balance 82 -649 -088 Weight 86 kg Intake: Oral 712 236 Output: Urine 700 950 700 Other: Voiding Method External Catheter External Catheter External Catheter # Voids 1 1 - Exam No acute distress, oriented 3. Currently on 50 L Airvo with an FiO2 of 45 %, she does have some shortness of breath even at rest. Patient has diffuse subcu taneous emphysema involving the neck, chest, upper extremities and face. HEENT examination is grossly unremarkable. Mucous membranes are moist. No oral lesions. Subcutaneous emphysema is noted over the neck area. Neck supple. Full range of motion. No adenopathy thyromegaly or neck vein distention. Cardiovascular examination reveals regular rhythm rate. S1-S2 normal. No S3 or S4. No discernible murmur noted. Lungs reveal minimal bibasilar crackles. No wheezes. No rhonchi. Breath so unds equal bilaterally. The crackles in the lung bases are essentially coarse. There is also evidence of some crepitation and subcutaneous emphysema along the right neck and right chest wall. Subcutaneous emphysema overlying the chest. Abdomen soft bowel sounds are heard. No masses or tenderness. Extremities are intact. No cyanosis clubbing or edema. Skin is without rash or lesion. Neurologic examination is brief but nonfocal. - Labs CBC & Chem 7: 01/07/25 09:06 01/07/25 07:32 Labs: Abnormal Lab Results - Last 24 Hours (Table) 01/06/25 01/06/25 01/07/25 Range/Units 16:20 20:04 07:32 WBC (4.50-10.00) 10*3/uL RBC (4.10-5.20) 10*6/uL Hgb (12.0-15.0) g/dL Hct (37.2-46.3) % MCHC (32.0-37.0) g/dL Immature Gran # (0.00-0.04) 10*3/uL Neutrophils # (1.80-7.70) 10*3/uL Lymphocytes # (0.90-5.00) 10*3/uL Monocytes # (0.20-1.00) 10*3/uL Sodium 131 L (137-145) mmol/L BUN 31 H (7-17) mg/dL Glucose 138 H (74-99) mg/dL POC Glucose (mg/dL) 260 H 163 H (70-110) mg/dL 01/07/25 01/07/25 01/07/25 Range/Units 07:42 09:06 11:55 WBC 16.06 H (4.50-10.00) 10*3/uL RBC 3.60 L (4.10-5.20) 10*6/uL Hgb 10.3 L (12.0-15.0) g/dL Hct 32.9 L (37.2-46.3) % MCHC 31.3 L (32.0-37.0) g/dL Immature Gran # 0.15 H (0.00-0.04) 10*3/uL Neutrophils # 15.27 H (1.80-7.70) 10*3/uL Lymphocytes # 0.39 L (0.90-5.00) 10*3/uL Monocytes # 0.19 L (0.20-1.00) 10*3/uL Sodium (137-145) mmol/L BUN (7-17) mg/dL Glucose (74-99) mg/dL POC Glucose (mg/dL) 156 H 149 H (70-110) mg/dL Assessment and Plan Plan: ARDS/adult respiratory distress syndrome with secondary acute hypoxic respiratory failure with worsening in the patient's oxygenation and the patient is currently on Airvo at 50 L with FiO2 of 45 %. Chest x-ray is showing diffuse interstitial pulmonary infiltrates consistent with noncardiogenic pulmonary edema/ARDS. The CAT scan of the chest was also consistent with ARDS with secondary complications of bilateral minimal pneumothoraces, pneumomediastinum and subcutaneous emphysema. The patient is currently on IV Solu-Medrol. CHF seems to be quite well optimized and the patient's most recent echocardiogram showed an ejection fraction of 40 to 45%. The patient is also on empiric antibiotic coverage. Cefepime. Chest x-ray findings showing worsening of subcutaneous emphysema. Nevertheless, there is no worsening in the pneumothorax or oxygenation. Tiny bilateral pneumothoraces Pneumomediastinum. Stable subcutaneous emphysema secondary to above Acute febrile illness, recovered. Acute leukocytosis, gradually improving History of right direct anterior total hip arthroplasty on November 24, 2024 Chronic anemia and hemoglobin remained stable Hypertension. Hyperlipidemia. Insulin-dependent diabetes mellitus. Obesity with a BMI of 35.4 kg/m. Coronary artery disease, with history of CABG and cardiac stents. History of ischemic cardiomyopathy with an ejection fraction improved to 40 to 45%. Implanted AICD/pacemaker. Hypothyroidism. Anxiety/depression. Plan: Overall condition is stable and unchanged. The patient has no interval worsening shortness of breath. No interval worsening in the oxygenation. Remains on Airvo. Subcutaneous emphysema remains clinically unchanged. Present, slightly worse. Clinically stable. Hemodynamically stable. Labs were reviewed Obtain a follow-up chest x-ray in a.m. Oxygenation remains unchanged on Airvo, currently on 50 L and FiO2 of 45% CAT scan of the chest was note No need for chest tube insertion at this point in time as the bilateral pneumothoraces are tiny and have not caused any significant hemodynamic compromise We will monitor with daily chest x-rays. Continue gentle diuresis to maintain negative fluid balance Continue IV Solu-Medrol 40 mg every 12 hours. Continue empiric antibiotic coverage with IV cefepime Check procalcitonin level nonelevated at less than 0.2 Prognosis poor based on the above. Exact etiology for his acute lung injury is not clear. Could have been related to an aspiration pneumonia. Echocardiogram was noted Rest of the comorbidities are stable we will continue to follow make further recommendations based on her progress. Discussed the case with family at the bedside. Prognosis in general poor. There is increased risk of progression and development of pulmonary complication including the possibility of hypoxemic respiratory failure interval worsening in pneumothorax. Patient and the family was made aware.
--- NOTE | 2025-01-07 22:06 | PN ---
PROGRESS NOTE DATE OF SERVICE: 01/07/2025 SUBJECTIVE: This is a 74-year-old woman who was admitted with spontaneous pneumothorax, had subcutaneous emphysema also. The patient also had ischemic cardiomyopathy. The patient is being closely monitored. The patient is on high-flow nasal cannula at this time. The patient was on Airvo earlier. PAST MEDICAL HISTORY: Reviewed. REVIEW OF SYSTEMS: A 14-point review of systems negative except as mentioned earlier. CURRENT MEDICATIONS: Reviewed. PHYSICAL EXAMINATION: VITAL SIGNS: Pulse is 76, blood pressure n LABORATORY DATA: Reviewed. ASSESSMENT: 1. Acute hypoxic respiratory failure secondary to acute respiratory distress syndrome. 2. Spontaneous pneumothorax with subcutaneous emphysema. 3. Ischemic cardiomyopathy. 4. Possible bilateral pneumonia. 5. History of congestive heart failure. 6. Hypertension. 7. Hyperlipidemia. 8. Multiple complex medical issues. RECOMMENDATIONS AND DISCUSSION: Recommend to continue current management and continue with bronchodilators. Continue with rest of the medications. Continue with IV steroids. Continue with empiric antibiotics. The patient is on cefepime. Guarded prognosis because of multiple complex medical issues. Further recommendations to follow. MMODL / IJN: [id number] / SUSHMA
[2025-01-08 02:02] LABS: Glucose,Whole Blood 158 mg/dL (70-110)
[2025-01-08 06:38] LABS: Basophils # (A) 0.02 10*3/uL (0.00-0.10); Basophils % (A) 0.1 %; Eosinophils # (A) 0.04 10*3/uL (0.04-0.35); Eosinophils % (A) 0.2 %; HCT 32.0 % (37.2-46.3); HGB 10.5 g/dL (12.0-15.0); Lymphocytes # (A) 0.45 10*3/uL (0.90-5.00); Lymphocytes % (A) 2.7 %; MCH 29.5 pg (27.0-32.0); MCHC 32.8 g/dL (32.0-37.0); MCV 89.9 fL (80.0-97.0); Monocytes # (A) 0.26 10*3/uL (0.20-1.00); Monocytes % (A) 1.6 %; Neutrophils # (A) 15.74 10*3/uL (1.80-7.70); Neutrophils % (A) 94.2 %; Platelet Count 165 10*3/uL (140-440); RBC 3.56 10*6/uL (4.10-5.20); RDW 14.8 % (11.5-14.5); WBC 16.71 10*3/uL (4.50-10.00)
[2025-01-08 06:48] LABS: African American GFR (CKD) 89 (>60 ml/min/1.73 sqM); Anion Gap 5 mmol/L; Blood Urea Nitrogen 36 mg/dL (7-17); Calcium 9.4 mg/dL (8.4-10.2); Carbon Dioxide 25 mmol/L (22-30); Chloride 104 mmol/L (98-107); Glucose 134 mg/dL (74-99); Non-African American GFR(CKD) 77 (>60 ml/min/1.73 sqM); Potassium 4.6 mmol/L (3.5-5.1); Sodium 134 mmol/L (137-145)
--- NOTE | 2025-01-08 07:11 | XR ---
EXAMINATION TYPE: XR chest 1V DATE OF EXAM: 01/08/2025 6:47 AM COMPARISON: Multiple radiographs, with the most recent on 01/07/2025, CT chest 01/03/2025 TECHNIQUE: XR chest 1V Portable AP radiograph of the chest. CLINICAL INDICATION:Female, 74 years old with history of ARDS; FINDINGS: Lungs/Pleura: Similar small bilateral pneumothoraces. Scattered airspace opacities throughout the mao gs again. No pleural effusion. Pulmonary vascularity: Unremarkable. Heart/mediastinum: Cardiomediastinal silhouette is enlarged. Pneumomediastinum redemonstrated. Three lead cardiac conduction device overlying the left hemithorax with lead tips projecting over the right ventricle, right atrium and coronary sinus. Musculoskeletal: No acute osseous pathology. Midline sternotomy wires are noted. Other findings: Similar diffuse subcutaneous emphysema scattered throughout the visualized thorax and visualized neck. IMPRESSION: 1. Similar small bilateral pneumothoraces. 2. Similar pneumomediastinum. 3. Similar diffuse subcutaneous emphysema. 4. Patchy scattered airspace opacities within the lungs suggesting pulmonary edema and/or ARDS. [facility], , 01/08/2025 7:09 AM
[2025-01-08 07:12] LABS: Glucose,Whole Blood 224 mg/dL (70-110)
[2025-01-08 12:05] LABS: Glucose,Whole Blood 243 mg/dL (70-110)
[2025-01-08 14:34] VITALS: BMI 33.3
[2025-01-08] MEDS: FUROSEMIDE 10 MG/ML 4 ML VIAL IV STA (15:55)
[2025-01-08 16:44] LABS: Glucose,Whole Blood 217 mg/dL (70-110)
--- NOTE | 2025-01-08 17:19 | P.PN ---
Subjective Progress Note Date: 01/08/25 Patient is a 75-year-old female with past medical history significant for hypertension, hyperlipidemia, insulin-dependent diabetes mellitus, obesity, coronary artery disease with previous CABG, ischemic cardiomyopathy with an ejection fraction of 25 to 30% with AICD, asthma, and osteoarthritis. Of note, patient recently underwent right direct anterior total hip arthroplasty on 11/24/2024. She was discharged from the hospital to [facility] for rehabilitation. While at the outside facility, developed shortness of breath, coughing, and generalized weakness. States she was released from [facility] to home last Wednesday on November. Since then, she has fallen twice while at home. Brought in by EMS yesterday evening hypoxic and confused. She was placed on supplemental oxygen. Workup in the emergency department including a chest x-ray showing patchy bilateral lung infiltrates concerning for congestive heart failure or atypical pneumonias. CBC: WBC count 14.7, hemoglobin 9.5 g/dL, platelets 374. BMP: Sodium 132, potassium 4.4, chloride 100, serum bicarb 23, BUN 16, creatinine 0.92, glucose 124. Lactic 1.8. LFTs unremarkable. Troponin less than 0.012. NT proBNP 6.74. Viral 4 Plex negative for influenza A/B, RSV, COVID. Urinalysis unremarkable for UTI. Patient currently being evaluated on the general medical floor. She is alert and oriented x 3. Endorses above menti oned complaints. Does report history of asthma. Has had increased work of breathing over the last couple weeks. Suffering from persistent nonproductive cough over the same timeframe. States her symptoms actually started at [facility]. She has had a poor appetite with occasional nausea and vomiting. She has been able to take some of her home medications. Has had intermittent fevers with a Tmax of 100.8 F. Was started on empiric antibiotics in the ED, in the form azithromycin and Rocephin. Normal saline infusing at 50 mL/h. Denies any chest pain. Does endorse unilateral right lower lower extremity edema. No heart palpitations, syncopal events, hemoptysis. Current vital signs: Temperature 100.8 F, heart rate 95 bpm, blood pressure 124/54 mmHg, nontachypneic, SpO2 recorded at 96% on 3 L/min nasal cannula. The patient is seen today December 20, 2024 and follow-up on the regular medical floor. She is currently sitting up in bed. Awake and alert in no acute distress. Feeling a bit better today compared to yesterday. Maintaining O2 saturations in the 90s on 3 L/min per nasal cannula. Chest x-ray shows continued infiltrate of the right lung with improvement in the left lung. Blood culture is coming back positive. ID pending. White count 15.9. Hemoglobin 9.3. Platelets 371. Sodium 139. Potassium 4.2. Bicarb 27. BUN 16. Creatinine 1.01. Glucose 133. She remains on DuoNeb inhalations, IV Solu- Medrol, IV diuretics. Lovenox for DVT prophylaxis. Antibiotics in the form of ceftriaxone. The patient is seen today December 21, 2024 in follow-up on the regular medical floor. She is currently sitting up in a chair. Awake and alert in no acute distress. Maintaining O2 saturations in the 90s on 3 L/min per nasal cannula. She has been afebrile. Hemodynamically stable. Blood cultures showing staph epidermidis, most likely contaminant. White count 21.1. Hemoglobin 9.0. Platelets 409. Sodium 137. Potassium 4.5. Bicarb 30. BUN 29. Creatinine 1. 28. Glucose 172. proBNP 2180. She remains on DuoNeb inhalations, Solu-Medrol. Antibiotics in the form of ceftriaxone. Lovenox for DVT prophylaxis. Remains on IV diuretics. No accurate intake and output recorded. Chest x-ray showing similar findings with basilar infiltrates right greater than left. The patient is seen today December 22, 2024 in follow-up on the regular medical floor. She is sitting up at the bedside. Awake and alert in no acute distress. She has been slow to progress. She is still dyspneic with minimal exertion. Dyspneic with conversation. She is maintaining O2 saturations in the 90s on 7 L high flow nasal cannula. Echocardiogram reveals impaired left ventricular systolic function with an ejection fraction [address] scan of the chest revealed marked diffuse scattered groundglass opacities consistent with pulmonary edema, ARDS or pneumonia. AICD in place. Blood culture positive for Staphylococcus epidermidis. White count 17.9. Hemoglobin 9.4. Platelets 386. Sodium 136. Potassium 4.7. Bicarb 28. BUN 37. Creatinine 1.06. Glucose 176. She remains on DuoNeb inhalations, Solu-Medrol. Remains on oral diuretics. Antibiotics in the form of ceftriaxone. Heparin for DVT prophylaxis. The patient is seen today December 23, 2024 in follow-up on the regular medical floor. She is currently resting in bed. Awake and alert in no acute distress. Feeling a bit better today compared to yesterday. She is maintaining O2 saturations in the 90s on 6 L high flow nasal cannula. She remains afebrile. Hemodynamically stable. Initial blood cultures showing staph epidermidis. Follow-up blood culture reveals no growth. White count 17.6. Hemoglobin 9.2. Platelets 381. Sodium 138. Potassium 4.4. Bicarb 28. BUN 45. Creatinine 1.11. Glucose 115. Arterial blood gases on 44% FiO2 revealed a PO2 of 50, [id number] and a pH of 7.42. She remains on DuoNeb inhalations, Solu-Medrol and Robitussin as needed. Heparin for DVT prophylaxis. She remains on Lasix 40 mg every 12 hours. No accurate intake and output recorded. The patient is seen today December 24, 2024 in follow-up on the regular medical floor. She is awake and alert in no acute distress. Resting in bed. No worsening shortness of breath, cough or congestion. She is still requiring 10 L high flow nasal cannula to maintain O2 saturations in the 90s. Lung sounds improved. Blood cultures were positive for Staphylococcus epidermidis. Most likely a contaminant. Follow-up blood culture revealed no growth. Glucose 233. She remains on DuoNeb inhalations, Symbicort, Solu-Medrol. She remains on IV Lasix. Heparin for DVT prophylaxis. Currently in a -1.9 L balance. The patient is seen today December 25, 2024 in follow-up in the intensive care unit. She was transferred down here last evening after having issues with worsening hypoxemia. She is currently on Airvo high flow oxygen at 50 L and 50% FiO2. She is afebrile. Hemodynamically stable. Chest x-ray continues to show cardiomegaly with pulmonary vascular congestion and bilateral pleural effusions. Follow-up blood culture revealed no growth. White count 17.9. Hemoglobin 9.7. Platelets 350. Sodium 137. Potassium 4.8. Bicarb 31. BUN 49. Creatinine 1.16. Glucose 224. She remains on DuoNeb inhalations, Symbicort, Solu-Medrol. Heparin for DVT prophylaxis. She remains on Lasix 40 mg IV every 12 hours. C urrently in a -4 L balance. The patient is seen today December 26, 2024 in follow-up in the intensive care unit. She is currently sitting up in bed. Awake and alert in no acute distress. Feeling a bit better today compared to yesterday. She is still high flow oxygen at 50 L and 60% FiO2. No IV fluids. She has been afebrile. Hemodynamically stable. Chest x-ray continues to show diffuse infiltrates bilaterally right greater than left. Follow-up blood culture reveals no growth. White count 1 9.5. Hemoglobin 10.0. Platelets 359. Sodium 137. Potassium 4.2. Bicarb 33. BUN 54. Creatinine 1.07. Glucose 280. Continued on Lasix 40 mg IV every 12 hours. Currently net -3.3 L balance. She remains on DuoNeb and elations, Symbicort, Solu-Medrol. Robitussin for her cough. The patient is seen today December 28, 2024 in follow-up in the intensive care unit. She is awake and alert in no acute distress. Sitting up in bed. Remains on Airvo high flow oxygen at 50 L and 50% FiO2. No IV fluids. Chest x-ray is showing fluid volume overload but improving. Initial blood culture positive for staph epidermidis. Follow-up blood culture revealed no growth. White count 19.6. Hemoglobin 10.4. Platelets 352. Sodium 134. Potassium 4.0. Bicarb 33. BUN 66. Creatinine 1.12. Glucose 205. She is continued on DuoNeb inhalations, Symbicort, Solu-Medrol. Heparin for DVT prophylaxis. She remains on Lasix 40 mg IV every 12 hours. Currently in a -700 mL balance. The patient is seen today December 29, 2024 in follow-up in the intensive care unit. She is currently sitting up in bed. Awake and alert in no acute distress. Deny any worsening shortness of breath, cough or congestion. Feeling better. She is now on 8 L high flow nasal cannula. Chest x-ray continues to show improvement. White count 26.0. Hemoglobin 10.7. Platelets 352. Sodium 136. Potassium 4.3. Bicarb 34. BUN 63. Creatinine 1.11. Glucose 185. She remains on DuoNeb inhalations, Symbicort, Solu-Medrol. Heparin for DVT prophylaxis. Continued on Lasix 40 mg every 12 hours. Currently in a -700 mL balance. The patient is seen today January 08, 2025 in follow-up on the selective care unit. She is currently sitting up in bed. Awake and alert in no acute distress. She had developed extensive subcutaneous emphysema for chest and neck and face. She remains on Airvo high flow oxygen at 50 L and 45% FiO2. Chest x-ray shows similar small bilateral pneumothoraces. Similar pneumomediastinum. Similar diffuse subcutaneous emphysema. Patchy scattered airspace opacity within the lungs suggesting pulmonary edema and/or ARDS. Follow-up blood culture revealed no growth. White count 16.7. Hemoglobin 10.5. Platelets 165. Sodium 134. Potassium 4.6. Bicarb 25. BUN 36. Creatinine 0.77. Glucose 134. She remains on DuoNeb inhalations, Symbicort, Solu-Medrol. Heparin for DVT prophylaxis. Remains on diuretics. Remains on cefepime. Objective - Vital Signs Vital signs: Vital Signs Temp 97.9 F 01/08/25 12:00 Pulse 72 01/08/25 16:50 Resp 18 01/08/25 15:55 BP 128/65 01/08/25 15:55 Pulse Ox 93 L 01/08/25 15:55 FiO2 45 01/08/25 16:37 Intake & Output 01/07/25 01/08/25 01/08/25 18:59 06:59 18:59 Intake Total 590 240 Output Total 239 088 4620 Balance -110 -700 -760 Weight 85.5 kg 85.5 kg Intake: Oral 590 240 Output: Urine 654 259 3908 Other: Voiding Method External Catheter External Catheter External Catheter # Voids 1 - Exam GENERAL EXAM: Alert, 74-year-old female, on Airvo high flow oxygen at 50 L and 45% FiO2, in no acute distress. HEAD: Normocephalic and atraumatic EYES: Normal reaction of pupils, equal size. NOSE: Clear with pink turbinates. THROAT: No erythema or exudates. NECK: No masses, no JVD. CHEST: No chest wall deformity. Left chest implanted device. LUNGS: Equal air entry crackles in the posterior bases right greater than left. CVS: S1 and S2 normal with no audible murmur, regular rhythm. No extra heart sounds ABDOMEN: No hepatosplenomegaly, active bowel sounds, no guarding or rigidity. SPINE: No scoliosis or deformity SKIN: No rashes CENTRAL NERVOUS SYSTEM: No focal deficits, tone is normal in all 4 extremities. EXTREMITIES: Right anterior hip incision is approximated. Full range of motion. Right lower extremity pitting edema. Peripheral pulses are intact. - Labs CBC & Chem 7: 01/08/25 05:54 01/08/25 05:54 Labs: Abnormal Lab Results - Last 24 Hours (Table) 01/07/25 01/08/25 01/08/25 Range/Units 20:19 02:00 05:54 WBC 16.71 H (4.50-10.00) 10*3/uL RBC 3.56 L (4.10-5.20) 10*6/uL Hgb 10.5 L (12.0-15.0) g/dL Hct 32.0 L (37.2-46.3) % Immature Gran # 0.20 H (0.00-0.04) 10*3/uL Neutrophils # 15.74 H (1.80-7.70) 10*3/uL Lymphocytes # 0.45 L (0.90-5.00) 10*3/uL Sodium (137-145) mmol/L BUN (7-17) mg/dL Glucose (74-99) mg/dL POC Glucose (mg/dL) 221 H 158 H (70-110) mg/dL 01/08/25 01/08/25 01/08/25 Range/Units 05:54 07:10 12:03 WBC (4.50-10.00) 10*3/uL RBC (4.10-5.20) 10*6/uL Hgb (12.0-15.0) g/dL Hct (37.2-46.3) % Immature Gran # (0.00-0.04) 10*3/uL Neutrophils # (1.80-7.70) 10*3/uL Lymphocytes # (0.90-5.00) 10*3/uL Sodium 134 L (137-145) mmol/L BUN 36 H (7-17) mg/dL Glucose 134 H (74-99) mg/dL POC Glucose (mg/dL) 224 H 243 H (70-110) mg/dL 01/08/25 Range/Units 16:43 WBC (4.50-10.00) 10*3/uL RBC (4.10-5.20) 10*6/uL Hgb (12.0-15.0) g/dL Hct (37.2-46.3) % Immature Gran # (0.00-0.04) 10*3/uL Neutrophils # (1.80-7.70) 10*3/uL Lymphocytes # (0.90-5.00) 10*3/uL Sodium (137-145) mmol/L BUN (7-17) mg/dL Glucose (74-99) mg/dL POC Glucose (mg/dL) 217 H (70-110) mg/dL Assessment and Plan Assessment: Acute hypoxemic respiratory failure with CT scan of the chest reveals marked diffuse scattered groundglass opacities consistent with pulmonary edema, ARDS or pneumonia. Moderate cardiomegaly. Procalcitonin negative x 2.The CAT scan of the chest was also consistent with ARDS with secondary complications of bilateral minimal pneumothoraces, pneumomediastinum and subcutaneous emphysema. The patient is currently on IV Solu-Medrol. CHF seems to be quite well optimized and the patient's most recent echocardiogram showed an ejection fraction of 40 to 45%. The patient is also on empiric antibiotic coverage. Cefepime. Chest x-ray findings showing worsening of subcutaneous emphysema. Nevertheless, there is no worsening in the pneumothorax or oxygenation. Remains on Airvo high flow oxygen at 50 L and 45% FiO2. Tiny bilateral pneumothoraces Pneumomediastinum. Stable subcutaneous emphysema secondary to above Acute febrile illness, recovered Acute leukocytosis, improving History of right direct anterior total hip arthroplasty on November 24 Acute blood loss anemia, expected outcome of surgery Hypertension History of hyperlipidemia Insulin-dependent diabetes mellitus Obesity with a BMI of 35.4 kg/m Coronary artery disease, with history of CABG and cardiac stents History of ischemic cardiomyopathy with an ejection fraction improved to 40 to 45% Implanted AICD/pacemaker Hypothyroidism Anxiety/depression Poor overall functional performance based on the above-mentioned multiple comorbidities Plan: The patient was seen and evaluated Chest x-ray, labs and medications reviewed The patient has developed significant subcutaneous emphysema CT service consult for possible blow holes Currently on Airvo high flow oxygen Continue Solu-Medrol Continue Lasix Continue DuoNeb inhalations Continue Symbicort Continue Robitussin Heparin for DVT prophylaxis Titrate down the FiO2 as tolerated Increase her activity as tolerated Overall prognosis is poor We will continue to follow I have personally seen and examined the patient, performed the documentation and the assessment and plan as written. Number of minutes spent on the visit: 10 Dictation was produced using [employer] dictation software. Please excuse any grammatical, word or spelling errors.
[2025-01-08 20:03] LABS: Glucose,Whole Blood 198 mg/dL (70-110)
[2025-01-09 02:05] LABS: Glucose,Whole Blood 66 mg/dL (70-110)
--- NOTE | 2025-01-09 02:18 | PN ---
PROGRESS NOTE DATE OF SERVICE: 01/08/2025 HISTORY OF PRESENT ILLNESS: This 74-year-old woman was admitted with acute hypoxic respiratory failure, also had significant spontaneous pneumothorax and subcutaneous emphysema also. Chest x-ray showed multiple abnormalities and the patient is not improving, the patient is still on a high AIRVO and high-flow oxygen, still short of breath. Facial puffiness, and chest and arm puffiness also noted. PAST MEDICAL HISTORY: Reviewed. REVIEW OF SYSTEMS: A 14-point review of systems negative except as mentioned earlier. CURRENT MEDICATIONS: Reviewed. PHYSICAL EXAMINATION: VITAL SIGNS: Pulse 80, blood pressure 132/70, and respirations 18. CHEST: Few scattered rhonchi and crackles. ABDOMEN: Soft. Obese. EXTREMITIES: Legs noted with minimal edema. NERVOUS SYSTEM: Nonfocal. Examination of the upper body and face some puffiness present. LABORATORY DATA: WBC 16.7. ASSESSMENT: 1. Acute hypoxic respiratory failure secondary to acute respiratory distress syndrome and spontaneous pneumothorax with extensive subcutaneous emphysema. 2. Ischemic cardiomyopathy. 3. Possible bilateral pneumonia. 4. History of congestive heart failure. 5. Hypertension. 6. Hyperlipidemia. 7. Multiple complex medical issues. RECOMMENDATIONS: I recommend to continue current management and continue symptomatic treatment. Recommend one dose of IV Lasix extra. Otherwise I recommend continue with extensive, intensive bronchodilators. The patient is not improving significantly. I would consider refer to [facility] for further evaluation and treatment. Discussed with case maker, who will follow. SAI / NAN: [id number] /
[2025-01-09 02:42] LABS: Glucose,Whole Blood 105 mg/dL (70-110)
--- NOTE | 2025-01-09 06:51 | XR ---
EXAMINATION TYPE: XR chest 1V DATE OF EXAM: 01/09/2025 6:39 AM COMPARISON: Multiple radiographs, with the most recent on 01/08/2025, CT chest 01/03/2025 TECHNIQUE: XR chest 1V Portable AP radiograph of the chest. CLINICAL INDICATION:Female, 74 years old with history of ARDS; FINDINGS: Lungs/Pleura: Similar small bilateral pneumothoraces. Scattered airspace opacities throughout the mao gs again. No pleural effusion. Pulmonary vascularity: Unremarkable. Heart/mediastinum: Cardiomediastinal silhouette is enlarged. Pneumomediastinum redemonstrated. Three lead cardiac conduction device overlying the left hemithorax with lead tips projecting over the right ventricle, right atrium and coronary sinus. Musculoskeletal: No acute osseous pathology. Midline sternotomy wires are noted. Other findings: Similar diffuse subcutaneous emphysema scattered throughout the visualized thorax and visualized neck. IMPRESSION: 1. Similar small bilateral pneumothoraces. 2. Similar pneumomediastinum. 3. Similar diffuse subcutaneous emphysema. 4. Patchy scattered airspace opacities within the lungs suggesting pulmonary edema and/or ARDS. [facility], , 01/09/2025 6:49 AM
[2025-01-09 07:05] LABS: Glucose,Whole Blood 185 mg/dL (70-110)
[2025-01-09 07:13] LABS: African American GFR (CKD) 88 (>60 ml/min/1.73 sqM); Anion Gap 9 mmol/L; Blood Urea Nitrogen 39 mg/dL (7-17); Calcium 9.4 mg/dL (8.4-10.2); Carbon Dioxide 23 mmol/L (22-30); Chloride 103 mmol/L (98-107); Glucose 193 mg/dL (74-99); Non-African American GFR(CKD) 77 (>60 ml/min/1.73 sqM); Potassium 4.5 mmol/L (3.5-5.1); Sodium 135 mmol/L (137-145)
[2025-01-09 07:23] LABS: Basophils # (A) 0.03 10*3/uL (0.00-0.10); Basophils % (A) 0.2 %; Eosinophils # (A) 0.05 10*3/uL (0.04-0.35); Eosinophils % (A) 0.3 %; HCT 34.3 % (37.2-46.3); HGB 10.7 g/dL (12.0-15.0); Lymphocytes # (A) 0.49 10*3/uL (0.90-5.00); Lymphocytes % (A) 2.8 %; MCH 28.5 pg (27.0-32.0); MCHC 31.2 g/dL (32.0-37.0); MCV 91.5 fL (80.0-97.0); Monocytes # (A) 0.31 10*3/uL (0.20-1.00); Monocytes % (A) 1.8 %; Neutrophils # (A) 16.30 10*3/uL (1.80-7.70); Neutrophils % (A) 93.9 %; Platelet Count 160 10*3/uL (140-440); RBC 3.75 10*6/uL (4.10-5.20); RDW 15.4 % (11.5-14.5); WBC 17.36 10*3/uL (4.50-10.00)
--- NOTE | 2025-01-09 08:47 | P.GSCN ---
History of Present Illness Consult date: 01/09/25 Reason for Consult: Extensive subcutaneous emphysema Requesting physician: Tierra Gutiérrez History of present illness: This is a 74-year-old female who follows with Dr. Burgess outpatient. She has a previous medical history of coronary artery disease with previous PCI and CABG, ischemic cardiomyopathy status post AICD placement, hypertension, hyperlipidemia, insulin-dependent diabetes, hypothyroid. She has been hospital ized since December 18, 2024 when she came into the emergency room with shortness of breath, altered mental status, weakness status post fall. She was found to have pneumonia and hypoxia and was admitted with multiple consultants and has had multiple diagnostics including x-rays, echocardiogram, and 2 chest CTs. She has been on antibiotics. Initially she was on a medical surgical floor, her respiratory status deteriorated and she was transferred to the intensive care unit. She was transferred out of the ICU to the cardiac stepdown unit on December 29. She has remained on high flow nasal cannula in the form of Airvo. Chest CT which was completed back on December 22 demonstrated marked diffuse scattered groundglass opacities consistent with pulmonary edema versus ARDS/pneumonia. Chest CT repeated on January 03, 2025 demonstrated bilateral pneumothoraces, pneumomediastinum, continued diffuse lung markings compatible with ARDS. Her subcutaneous emphysema has progressively gotten worse, consultation was placed to cardiothoracic surgery for treatment recommendations. Review of Systems Review of systems was completed and was negative except as noted - Constitutional Reports weakness - Respiratory Reports as per HPI, Reports dyspnea Past Medical History Past Medical History: Asthma, Blood Disorder, Coronary Artery Disease (CAD), Chest Pain / Angina, Heart Failure, Diabetes Mellitus, Eye Disorder, GERD/Reflux, Hyperlipidemia, Hypertension, Myocardial Infarction ([place]), Muscu loskeletal Disorder, Osteoarthritis (OA), Renal Disease, Skin Disorder, Supraventricular Tachycardia (SVT), Thyroid Disorder Additional Past Medical History / Comment(s): USES INSULIN PUMP. VITILIGO-FACE. ANEMIA. DIZZINESS OFF & ON, HERNIATED DISCS L1,L2,L3,L4-L5, PINCHED SCIATIC NERVE. OSTEOPENIA. HIATAL HERNIA. ELEV LFS. OCC NT BUE. MILD Neuropathy. DIABETIC RETINOPATHY. TINNITUS. FX LT ANKLE, LUMBAR BACK PAIN Last Myocardial Infarction Date:: June 2009, 01/09/18 History of Any Multi-Drug Resistant Organisms: None Reported Past Surgical History: AICD, Cardiac Ablation, Cholecystectomy, Coronary Bypass/CABG, Heart Catheterization, Heart Catheterization With Stent, Hysterectomy, Pacemaker, Tonsillectomy Additional Past Surgical History / Comment(s): 04/06/19 venogram and device interogation, TRIPLE BYPASS 2012. EXC. CATARACTS WITH LENS IMPLANTS. D EFIBRILLATOR ST.ESME 2010; DUAL AICD 04/14/18. 5 cardiac stents, LAST 06/2024. CARDIAC Ablation 1994. LIVER BIOPSY (FATTY LIVER). Past Anesthesia/Blood Transfusion Reactions: Postoperative Nausea & Vomiting (PONV) Additional Past Anesthesia/Blood Transfusion Reaction / Comm: DAUGHTER'S HAVE PONV. (HX nausea from iron infusions) Date of Last Stent Placement:: 2008 x2, 01/2018 X1, 06/2024 x2 Type of Cardiac Device: Permanent Pacemaker, AICD Device Placement Date:: 2017 Past Psychological History: Anxiety, Depression Smoking Status: Never smoker Past Alcohol Use History: Occasional Additional Past Alcohol Use History / Comment(s): Patient is a lifelong nonsmoker, no illicit drug use, no alcohol use. She lives at home with her . Past Drug Use History: None Reported - Past Family History Mother Family Medical History: Congestive Heart Failure (CHF), Coronary Artery Disease (CAD), Diabetes Mellitus, Deep Vein Thrombosis (DVT) Additional Family Medical History / Comment(s): HEART DISEASE, Father Family Medical History: Congestive Heart Failure (CHF) (Father at age of 78 from congestive heart failure and he also was diabetic.), Diabetes Mellitus Additional Family Medical History / Comment(s): HEART DISEASE Sister(s) Family Medical History: Cancer Additional Family Medical History / Comment(s): 2 1/2 sisters with breast cancer, 1/2 sister-thyroid cancer, 1/2 SISTER - PANCREATIC CANCER. Brother(s) Family Medical History: Coronary Artery Disease (CAD) Daughter(s) Family Medical History: Supraventricular Tachycardia (SVT) Son(s) Family Medical History: No Reported History Medications and Allergies Home Medications Medication Instructions Recorded Confirmed Type Budesonide-Formot 160-4.5 Mcg 2 puff INHALATION BID PRN 12/27/15 12/18/24 History [Symbicort 160-4.5 Mcg Inhaler] Ezetimibe [Zetia] 10 mg PO HS 12/27/15 12/18/24 History Furosemide [Lasix] 20 mg PO MOWEFR 12/27/15 12/18/24 History fluvoxaMINE MALEATE [Luvox] 300 mg PO HS 12/27/15 12/18/24 History Albuterol Inhaler [Ventolin Hfa 2 puff INHALATION RT-Q4H PRN 03/29/17 12/18/24 History Inhaler] buPROPion SR [Wellbutrin SR] 175 mg PO BID 03/29/17 12/18/24 History Baclofen [Lioresal] 20 mg PO TID PRN 01/10/18 12/18/24 History Sacubitril/Valsartan [Entresto 24 1 tab PO BID 04/11/18 12/18/24 History mg-26 mg Tablet] Insulin Aspart (For Pump) [NovoLOG 0.01 unit SQ-PUMP CONTINUOUS 05/17/18 0 12/18/24 History (For Pump)] Rosuvastatin Calcium [Crestor] 20 mg PO HS 06/06/18 12/18/24 History Acetaminophen Tab [Tylenol] 1,000 mg PO Q6HR PRN tab 05/03/19 12/18/24 Rx Levothyroxine Sodium [Synthroid] 112 mcg PO DAILY 07/16/22 12/18/24 History Dapagliflozin Propanediol [Farxiga] 10 mg PO DAILY 10/19/23 12/18/24 History Gabapentin [Neurontin] 300 mg PO TID 10/19/23 12/18/24 History Nitroglycerin Sl Tabs [Nitrostat] 0.4 mg SL Q5M PRN 10/19/23 12/18/24 History busPIRone HCl [Buspar] 30 mg PO DAILY 10/19/23 12/18/24 History traZODone HCL [Desyrel] 50 mg PO HS 10/19/23 12/18/24 History busPIRone HCL 15 mg PO HS 06/26/24 12/18/24 History Aspirin [Adult Low Dose Aspirin EC] 81 mg PO BID 11/17/24 12/18/24 History Clopidogrel [Plavix] 75 mg PO DAILY 11/17/24 12/18/24 History Propylene Glycol [Systane Complete] 1 drop BOTH EYES BID 11/17/24 12/18/24 History Doxycycline Monohydrate 100 mg PO BID-W/MEALS 14 Days #28 05/16/25 06/09/25 Rx cap Ergocalciferol [Vitamin D2 (1250 1,250 mcg PO PRUITT 12/18/24 12/18/24 History Mcg = 04925 Iu)] HYDROcodone/APAP 5-325MG [[place] 1 tab PO Q6HR PRN 12/18/24 12/18/24 History 5-325] Ondansetron Odt [Zofran Odt] 4 mg PO TID PRN 12/18/24 12/18/24 History carvediloL [Coreg] 6.25 mg PO BID 12/18/24 12/18/24 History Allergies Allergy/AdvReac Type Severity Reaction Status Date / Time adhesive tape Allergy Rash/Hives Verified 12/18/24 20:59 metronidazole [From Flagyl] Allergy Rash/Hives Verified 12/18/24 20:59 Nitroimidazoles Allergy Rash/Hives Verified 12/18/24 20:59 Surgical - Exam Vital Signs Temp Pulse Resp BP Pulse Ox 99.0 F 99 16 114/60 95 12/18/24 17:01 12/18/24 17:01 12/18/24 17:01 12/18/24 17:01 12/18/24 17:01 CONSTITUTIONAL: Awake and alert, cooperative, well-developed, well-nourished, no pain, no acute distress EYES: Pupils equal, round, reactive to light, normal ocular movement, subcutaneous emphysema swelling present ENT: Moist mucous membranes without oral lesions present NECK: No masses, no bruits, trachea midline RESPIRATORY: Lungs sounds diminished with crackles in the bases. Respirations even, nonlabored. Currently on AirVo at 50 L, FiO2 45%. Strong cough CARDIOVASCULAR: S1, S2 present. Regular rate and rhythm, ventricular paced on telemetry. Palpable peripheral pulses bilaterally. Bilateral lower extremity edema present GASTROINTESTINAL: Abdomen soft, nontender, nondistended without masses or organomegaly noted. There is no rebound or guarding present. Active bowel sounds present 4 quadrants. GENITOURINARY: Deferred INTEGUMENTARY: Skin is warm and dry, extensive subcutaneous emphysema present to upper chest, neck, face NEUROLOGIC: Cranial nerves II through XII intact, normal coordination, no obvious motor or sensory deficits, speech is normal MUSKULOSKELETAL: Able to move all extremities, strength equal bilaterally, normal posture PSYCHIATRIC: Alert and oriented to person place and time, appropriate affect, intact judgment and insight Results - Labs 01/09/25 06:26 01/09/25 06:26 Abnormal Lab Results - Last 24 Hours (Table) 01/08/25 01/08/25 01/08/25 Range/Units 12:03 16:43 20:02 WBC (4.50-10.00) 10*3/uL RBC (4.10-5.20) 10*6/uL Hgb (12.0-15.0) g/dL Hct (37.2-46.3) % MCHC (32.0-37.0) g/dL Immature Gran # (0.00-0.04) 10*3/uL Neutrophils # (1.80-7.70) 10*3/uL Lymphocytes # (0.90-5.00) 10*3/uL Sodium (137-145) mmol/L BUN (7-17) mg/dL Glucose (74-99) mg/dL POC Glucose (mg/dL) 243 H 217 H 198 H (70-110) mg/dL 01/09/25 01/09/25 01/09/25 Range/Units 02:04 06:26 06:26 WBC 17.36 H (4.50-10.00) 10*3/uL RBC 3.75 L (4.10-5.20) 10*6/uL Hgb 10.7 L (12.0-15.0) g/dL Hct 34.3 L (37.2-46.3) % MCHC 31.2 L (32.0-37.0) g/dL Immature Gran # 0.18 H (0.00-0.04) 10*3/uL Neutrophils # 16.30 H (1.80-7.70) 10*3/uL Lymphocytes # 0.49 L (0.90-5.00) 10*3/uL Sodium 135 L (137-145) mmol/L BUN 39 H (7-17) mg/dL Glucose 193 H (74-99) mg/dL POC Glucose (mg/dL) 66 L (70-110) mg/dL 01/09/25 Range/Units 07:04 WBC (4.50-10.00) 10*3/uL RBC (4.10-5.20) 10*6/uL Hgb (12.0-15.0) g/dL Hct (37.2-46.3) % MCHC (32.0-37.0) g/dL Immature Gran # (0.00-0.04) 10*3/uL Neutrophils # (1.80-7.70) 10*3/uL Lymphocytes # (0.90-5.00) 10*3/uL Sodium (137-145) mmol/L BUN (7-17) mg/dL Glucose (74-99) mg/dL POC Glucose (mg/dL) 185 H (70-110) mg/dL Diabetes panel 01/09/25 Range/Units 06:26 Sodium 135 L (137-145) mmol/L Potassium 4.5 (3.5-5.1) mmol/L Chloride 103 (98-107) mmol/L Carbon Dioxide 23 (22-30) mmol/L BUN 39 H (7-17) mg/dL Creatinine 0.78 (0.52-1.04) mg/dL Glucose 193 H (74-99) mg/dL Calcium 9.4 (8.4-10.2) mg/dL Calcium panel 01/09/25 Range/Units 06:26 Calcium 9.4 (8.4-10.2) mg/dL Pituitary panel 01/09/25 Range/Units 06:26 Sodium 135 L (137-145) mmol/L Potassium 4.5 (3.5-5.1) mmol/L Chloride 103 (98-107) mmol/L Carbon Dioxide 23 (22-30) mmol/L BUN 39 H (7-17) mg/dL Creatinine 0.78 (0.52-1.04) mg/dL Glucose 193 H (74-99) mg/dL Calcium 9.4 (8.4-10.2) mg/dL Adrenal panel 01/09/25 Range/Units 06:26 Sodium 135 L (137-145) mmol/L Potassium 4.5 (3.5-5.1) mmol/L Chloride 103 (98-107) mmol/L Carbon Dioxide 23 (22-30) mmol/L BUN 39 H (7-17) mg/dL Creatinine 0.78 (0.52-1.04) mg/dL Glucose 193 H (74-99) mg/dL Calcium 9.4 (8.4-10.2) mg/dL - Imaging Chest x-ray: report reviewed, image reviewed CT scan - chest: report reviewed, image reviewed Assessment and Plan Assessment: Extensive subcutaneous emphysema extending upper chest, neck, face Bilateral tiny pneumothoraces, pneumomediastinum found on CT Pneumonia Acute hypoxic respiratory failure secondary to above History of coronary artery disease with previous PCI and CABG Ischemic cardiomyopathy status post AICD placement Hypertension Hyperlipidemia Insulin-dependent diabetes Hypothyroid Plan: The patient was seen and examined at the bedside with Dr. Falk./Diagnostics reviewed. No chest tube insertion recommended, no surgery recommended. Will attempt to place blow holes to try to relieve subcutaneous emphysema. Wean oxygen as tolerated. Antibiotics per infectious disease. Increase activity as tolerated. Medical management of other comorbidities per internal medicine, pulmonology. Thank you Dr. Gutiérrez for this consult, we will continue to follow along with you and make further recommendations as appropriate. I have personally seen and examined the patient, performed the documentation and the assessment and plan as written. Number of minutes spent on the visit: 30. RUTH Marti
[2025-01-09 11:22] LABS: Glucose,Whole Blood 136 mg/dL (70-110)
--- NOTE | 2025-01-09 11:57 | P.PN ---
Subjective Progress Note Date: 01/09/25 Patient is a 75-year-old female with past medical history significant for hypertension, hyperlipidemia, insulin-dependent diabetes mellitus, obesity, coronary artery disease with previous CABG, ischemic cardiomyopathy with an ejection fraction of 25 to 30% with AICD, asthma, and osteoarthritis. Of note, patient recently underwent right direct anterior total hip arthroplasty on 11/24/2024. She was discharged from the hospital to [facility] for rehabilitation. While at the outside facility, developed shortness of breath, coughing, and generalized weakness. States she was released from [facility] to home last Wednesday on November. Since then, she has fallen twice while at home. Brought in by EMS yesterday evening hypoxic and confused. She was placed on supplemental oxygen. Workup in the emergency department including a chest x-ray showing patchy bilateral lung infiltrates concerning for congestive heart failure or atypical pneumonias. CBC: WBC count 14.7, hemoglobin 9.5 g/dL, platelets 374. BMP: Sodium 132, potassium 4.4, chloride 100, serum bicarb 23, BUN 16, creatinine 0.92, glucose 124. Lactic 1.8. LFTs unremarkable. Troponin less than 0.012. NT proBNP 6.74. Viral 4 Plex negative for influenza A/B, RSV, COVID. Urinalysis unremarkable for UTI. Patient currently being evaluated on the general medical floor. She is alert and oriented x 3. Endorses above menti oned complaints. Does report history of asthma. Has had increased work of breathing over the last couple weeks. Suffering from persistent nonproductive cough over the same timeframe. States her symptoms actually started at [facility]. She has had a poor appetite with occasional nausea and vomiting. She has been able to take some of her home medications. Has had intermittent fevers with a Tmax of 100.8 F. Was started on empiric antibiotics in the ED, in the form azithromycin and Rocephin. Normal saline infusing at 50 mL/h. Denies any chest pain. Does endorse unilateral right lower lower extremity edema. No heart palpitations, syncopal events, hemoptysis. Current vital signs: Temperature 100.8 F, heart rate 95 bpm, blood pressure 124/54 mmHg, nontachypneic, SpO2 recorded at 96% on 3 L/min nasal cannula. The patient is seen today December 20, 2024 and follow-up on the regular medical floor. She is currently sitting up in bed. Awake and alert in no acute distress. Feeling a bit better today compared to yesterday. Maintaining O2 saturations in the 90s on 3 L/min per nasal cannula. Chest x-ray shows continued infiltrate of the right lung with improvement in the left lung. Blood culture is coming back positive. ID pending. White count 15.9. Hemoglobin 9.3. Platelets 371. Sodium 139. Potassium 4.2. Bicarb 27. BUN 16. Creatinine 1.01. Glucose 133. She remains on DuoNeb inhalations, IV Solu- Medrol, IV diuretics. Lovenox for DVT prophylaxis. Antibiotics in the form of ceftriaxone. The patient is seen today December 21, 2024 in follow-up on the regular medical floor. She is currently sitting up in a chair. Awake and alert in no acute distress. Maintaining O2 saturations in the 90s on 3 L/min per nasal cannula. She has been afebrile. Hemodynamically stable. Blood cultures showing staph epidermidis, most likely contaminant. White count 21.1. Hemoglobin 9.0. Platelets 409. Sodium 137. Potassium 4.5. Bicarb 30. BUN 29. Creatinine 1. 28. Glucose 172. proBNP 2180. She remains on DuoNeb inhalations, Solu-Medrol. Antibiotics in the form of ceftriaxone. Lovenox for DVT prophylaxis. Remains on IV diuretics. No accurate intake and output recorded. Chest x-ray showing similar findings with basilar infiltrates right greater than left. The patient is seen today December 22, 2024 in follow-up on the regular medical floor. She is sitting up at the bedside. Awake and alert in no acute distress. She has been slow to progress. She is still dyspneic with minimal exertion. Dyspneic with conversation. She is maintaining O2 saturations in the 90s on 7 L high flow nasal cannula. Echocardiogram reveals impaired left ventricular systolic function with an ejection fraction [address] scan of the chest revealed marked diffuse scattered groundglass opacities consistent with pulmonary edema, ARDS or pneumonia. AICD in place. Blood culture positive for Staphylococcus epidermidis. White count 17.9. Hemoglobin 9.4. Platelets 386. Sodium 136. Potassium 4.7. Bicarb 28. BUN 37. Creatinine 1.06. Glucose 176. She remains on DuoNeb inhalations, Solu-Medrol. Remains on oral diuretics. Antibiotics in the form of ceftriaxone. Heparin for DVT prophylaxis. The patient is seen today December 23, 2024 in follow-up on the regular medical floor. She is currently resting in bed. Awake and alert in no acute distress. Feeling a bit better today compared to yesterday. She is maintaining O2 saturations in the 90s on 6 L high flow nasal cannula. She remains afebrile. Hemodynamically stable. Initial blood cultures showing staph epidermidis. Follow-up blood culture reveals no growth. White count 17.6. Hemoglobin 9.2. Platelets 381. Sodium 138. Potassium 4.4. Bicarb 28. BUN 45. Creatinine 1.11. Glucose 115. Arterial blood gases on 44% FiO2 revealed a PO2 of 50, [id number] and a pH of 7.42. She remains on DuoNeb inhalations, Solu-Medrol and Robitussin as needed. Heparin for DVT prophylaxis. She remains on Lasix 40 mg every 12 hours. No accurate intake and output recorded. The patient is seen today December 24, 2024 in follow-up on the regular medical floor. She is awake and alert in no acute distress. Resting in bed. No worsening shortness of breath, cough or congestion. She is still requiring 10 L high flow nasal cannula to maintain O2 saturations in the 90s. Lung sounds improved. Blood cultures were positive for Staphylococcus epidermidis. Most likely a contaminant. Follow-up blood culture revealed no growth. Glucose 233. She remains on DuoNeb inhalations, Symbicort, Solu-Medrol. She remains on IV Lasix. Heparin for DVT prophylaxis. Currently in a -1.9 L balance. The patient is seen today December 25, 2024 in follow-up in the intensive care unit. She was transferred down here last evening after having issues with worsening hypoxemia. She is currently on Airvo high flow oxygen at 50 L and 50% FiO2. She is afebrile. Hemodynamically stable. Chest x-ray continues to show cardiomegaly with pulmonary vascular congestion and bilateral pleural effusions. Follow-up blood culture revealed no growth. White count 17.9. Hemoglobin 9.7. Platelets 350. Sodium 137. Potassium 4.8. Bicarb 31. BUN 49. Creatinine 1.16. Glucose 224. She remains on DuoNeb inhalations, Symbicort, Solu-Medrol. Heparin for DVT prophylaxis. She remains on Lasix 40 mg IV every 12 hours. C urrently in a -4 L balance. The patient is seen today December 26, 2024 in follow-up in the intensive care unit. She is currently sitting up in bed. Awake and alert in no acute distress. Feeling a bit better today compared to yesterday. She is still high flow oxygen at 50 L and 60% FiO2. No IV fluids. She has been afebrile. Hemodynamically stable. Chest x-ray continues to show diffuse infiltrates bilaterally right greater than left. Follow-up blood culture reveals no growth. White count 1 9.5. Hemoglobin 10.0. Platelets 359. Sodium 137. Potassium 4.2. Bicarb 33. BUN 54. Creatinine 1.07. Glucose 280. Continued on Lasix 40 mg IV every 12 hours. Currently net -3.3 L balance. She remains on DuoNeb and elations, Symbicort, Solu-Medrol. Robitussin for her cough. The patient is seen today December 28, 2024 in follow-up in the intensive care unit. She is awake and alert in no acute distress. Sitting up in bed. Remains on Airvo high flow oxygen at 50 L and 50% FiO2. No IV fluids. Chest x-ray is showing fluid volume overload but improving. Initial blood culture positive for staph epidermidis. Follow-up blood culture revealed no growth. White count 19.6. Hemoglobin 10.4. Platelets 352. Sodium 134. Potassium 4.0. Bicarb 33. BUN 66. Creatinine 1.12. Glucose 205. She is continued on DuoNeb inhalations, Symbicort, Solu-Medrol. Heparin for DVT prophylaxis. She remains on Lasix 40 mg IV every 12 hours. Currently in a -700 mL balance. The patient is seen today December 29, 2024 in follow-up in the intensive care unit. She is currently sitting up in bed. Awake and alert in no acute distress. Deny any worsening shortness of breath, cough or congestion. Feeling better. She is now on 8 L high flow nasal cannula. Chest x-ray continues to show improvement. White count 26.0. Hemoglobin 10.7. Platelets 352. Sodium 136. Potassium 4.3. Bicarb 34. BUN 63. Creatinine 1.11. Glucose 185. She remains on DuoNeb inhalations, Symbicort, Solu-Medrol. Heparin for DVT prophylaxis. Continued on Lasix 40 mg every 12 hours. Currently in a -700 mL balance. The patient is seen today January 08, 2025 in follow-up on the selective care unit. She is currently sitting up in bed. Awake and alert in no acute distress. She had developed extensive subcutaneous emphysema for chest and neck and face. She remains on Airvo high flow oxygen at 50 L and 45% FiO2. Chest x-ray shows similar small bilateral pneumothoraces. Similar pneumomediastinum. Similar diffuse subcutaneous emphysema. Patchy scattered airspace opacity within the lungs suggesting pulmonary edema and/or ARDS. Follow-up blood culture revealed no growth. White count 16.7. Hemoglobin 10.5. Platelets 165. Sodium 134. Potassium 4.6. Bicarb 25. BUN 36. Creatinine 0.77. Glucose 134. She remains on DuoNeb inhalations, Symbicort, Solu-Medrol. Heparin for DVT prophylaxis. Remains on diuretics. Remains on cefepime. The patient is seen today January 09, 2025 in follow-up on the selective care unit. She is awake and alert in no acute distress. Sitting up in bed. Her subcutane ous emphysema is worsening. Her eyes are swollen shut now. CT services are planning to place blow holes today. She remains on Airvo high flow oxygen at 50 L and 45% FiO2. Chest x-ray continues to show similar small bilateral pneumothoraces. Similar pneumomediastinum. Similar diffuse subcutaneous emphysema. Patchy scattered airspace opacities within the lung suggesting pulmonary edema and/or ARDS. Follow-up blood culture revealed no growth. White count 17.3. Hemoglobin 10.7. Platelets 160. Sodium 135. Potassium 4.5. Bicarb 23. BUN 39. Creatinine 0.78. Glucose 193. She remains on DuoNeb and elations, Symbicort, Solu-Medrol. Heparin for DVT prophylaxis. Remains on oral diuretics. Remains on cefepime and Diflucan. Objective - Vital Signs Vital signs: Vital Signs Temp 97.6 F 01/09/25 09:20 Pulse 72 01/09/25 09:41 Resp 20 01/09/25 09:20 BP 130/58 01/09/25 09:20 Pulse Ox 91 L 01/09/25 09:20 FiO2 45 01/09/25 09:41 Intake & Output 01/08/25 01/09/25 01/09/25 18:59 06:59 18:59 Intake Total 240 180 Output Total 2000 950 Balance -1760 -950 180 Weight 85.5 kg 86 kg Intake: Oral 240 180 Output: Urine 1999 950 Other: Voiding Method External Catheter External Catheter External Catheter # Voids 1 - Exam GENERAL EXAM: Alert, 74-year-old female, on Airvo high flow oxygen at 50 L and 45% FiO2, in no acute distress. HEAD: Evidence of significant subcutaneous emphysema over face EYES: Eyes swollen shut from subcutaneous emphysema NOSE: Clear with pink turbinates. THROAT: No erythema or exudates. NECK: No masses, no JVD. CHEST: Extensive subcutaneous emphysema. Left chest implanted device. LUNGS: Equal air entry crackles in the posterior bases right greater than left. CVS: S1 and S2 normal with no audible murmur, regular rhythm. No extra heart sounds ABDOMEN: No hepatosplenomegaly, active bowel sounds, no guarding or rigidity. SPINE: No scoliosis or deformity SKIN: No rashes CENTRAL NERVOUS SYSTEM: No focal deficits, tone is normal in all 4 extremities. EXTREMITIES: Right anterior hip incision is approximated. Full range of motion. Right lower extremity pitting edema. Peripheral pulses are intact. - Labs CBC & Chem 7: 01/09/25 06:26 01/09/25 06:26 Labs: Abnormal Lab Results - Last 24 Hours (Table) 01/08/25 01/08/25 01/08/25 Range/Units 12:03 16:43 20:02 WBC (4.50-10.00) 10*3/uL RBC (4.10-5.20) 10*6/uL Hgb (12.0-15.0) g/dL Hct (37.2-46.3) % MCHC (32.0-37.0) g/dL Immature Gran # (0.00-0.04) 10*3/uL Neutrophils # (1.80-7.70) 10*3/uL Lymphocytes # (0.90-5.00) 10*3/uL Sodium (137-145) mmol/L BUN (7-17) mg/dL Glucose (74-99) mg/dL POC Glucose (mg/dL) 243 H 217 H 198 H (70-110) mg/dL 01/09/25 01/09/25 01/09/25 Range/Units 02:04 06:26 06:26 WBC 17.36 H (4.50-10.00) 10*3/uL RBC 3.75 L (4.10-5.20) 10*6/uL Hgb 10.7 L (12.0-15.0) g/dL Hct 34.3 L (37.2-46.3) % MCHC 31.2 L (32.0-37.0) g/dL Immature Gran # 0.18 H (0.00-0.04) 10*3/uL Neutrophils # 16.30 H (1.80-7.70) 10*3/uL Lymphocytes # 0.49 L (0.90-5.00) 10*3/uL Sodium 135 L (137-145) mmol/L BUN 39 H (7-17) mg/dL Glucose 193 H (74-99) mg/dL POC Glucose (mg/dL) 66 L (70-110) mg/dL 01/09/25 01/09/25 Range/Units 07:04 11:20 WBC (4.50-10.00) 10*3/uL RBC (4.10-5.20) 10*6/uL Hgb (12.0-15.0) g/dL Hct (37.2-46.3) % MCHC (32.0-37.0) g/dL Immature Gran # (0.00-0.04) 10*3/uL Neutrophils # (1.80-7.70) 10*3/uL Lymphocytes # (0.90-5.00) 10*3/uL Sodium (137-145) mmol/L BUN (7-17) mg/dL Glucose (74-99) mg/dL POC Glucose (mg/dL) 185 H 136 H (70-110) mg/dL Assessment and Plan Assessment: Acute hypoxemic respiratory failure with CT scan of the chest reveals marked diffuse scattered groundglass opacities consistent with pulmonary edema, ARDS or pneumonia. Moderate cardiomegaly. Procalcitonin negative x 2.The CAT scan of the chest was also consistent with ARDS with secondary complications of bilateral minimal pneumothoraces, pneumomediastinum and subcutaneous emphysema. The patient is currently on IV Solu-Medrol. CHF seems to be quite well optimized and the patient's most recent echocardiogram showed an ejection fraction of 40 to 45%. The patient is also on empiric antibiotic coverage. Cefepime. Chest x-ray findings showing worsening of subcutaneous emphysema. Nevertheless, there is no worsening in the pneumothorax or oxygenation. Remains on Airvo high flow oxygen at 50 L and 45% FiO2. Tiny bilateral pneumothoraces Pneumomediastinum Extensive subcutaneous emphysema secondary to above Acute febrile illness, recovered Acute leukocytosis, improving History of right direct anterior total hip arthroplasty on November 24 Acute blood loss anemia, expected outcome of surgery Hypertension History of hyperlipidemia Insulin-dependent diabetes mellitus Obesity with a BMI of 35.4 kg/m Coronary artery disease, with history of CABG and cardiac stents History of ischemic cardiomyopathy with an ejection fraction improved to 40 to 45% Implanted AICD/pacemaker Hypothyroidism Anxiety/depression Poor overall functional performance based on the above-mentioned multiple comorbidities Plan: The patient was seen and evaluated Chest x-ray, labs and medications reviewed Still with significant subcutaneous emphysema CT service planning for blow holes today Currently on Airvo high flow oxygen Continue Solu-Medrol Continue Lasix Continue DuoNeb inhalations Continue Symbicort Continue Robitussin Heparin for DVT prophylaxis Titrate down the FiO2 as tolerated Increase her activity as tolerated Overall prognosis is guarded We will continue to follow I have personally seen and examined the patient, performed the documentation and the assessment and plan as written. Number of minutes spent on the visit: 10 Dictation was produced using [employer] dictation software. Please excuse any grammatical, word or spelling errors.
[2025-01-09 12:32] LABS: Glucose,Whole Blood 81 mg/dL (70-110)
--- NOTE | 2025-01-09 12:54 | P.PN ---
Subjective Progress Note Date: 01/08/25 Principal diagnosis: Reason for follow-up is a positive blood culture Patient is a 74-year-old female with a past medical history significant for Asthma, Blood Disorder, Coronary Artery Disease (CAD), Chest Pain / Angina, Heart Failure, Diabetes Mellitus, Eye Disorder, GERD/Reflux, Hyperlipidemia, Hypertension, Myocardial Infarction ([place]), Musculoskeletal Disorder, Osteoarthritis (OA), Renal Disease, Skin Disorder, Supraventricular Tachycardia (SVT), Thyroid Disorder who recently did have a right hip replacement, patient presented the hospital with increasing shortness of breath and cough did have a positive blood culture prompting this consultation. On today's evaluation that is 01/08/2025, patient has been afebrile, patient is breathing slightly comfortably still requiring 50% FiO2 on Airvo patient developed significant puffiness to the facial area denies any worsening cough abdominal pain or diarrhea. Patient white count is 16.71 creatinine 0.77 Objective - Vital Signs Vital signs: Vital Signs Temp 97.9 F 01/08/25 12:00 Pulse 72 01/08/25 16:35 Resp 18 01/08/25 15:55 BP 128/65 01/08/25 15:55 Pulse Ox 93 L 01/08/25 15:55 FiO2 45 01/08/25 16:37 Intake & Output 01/07/25 01/08/25 01/08/25 18:59 06:59 18:59 Intake Total 590 240 Output Total 037 633 6785 Balance -110 700 -760 Weight 85.5 kg 85.5 kg Intake: Oral 590 240 Output: Urine 976 [id number] [id number] Other: Voiding Method External Catheter External Catheter External Catheter # Voids 1 - Exam GENERAL DESCRIPTION: An elderly female up in the bed in no distress RESPIRATORY SYSTEM: Unlabored breathing , decreased breath sounds at bases HEART: S1 S2 regular rate and rhythm , ABDOMEN: Soft , no tenderness EXTREMITIES: No edema feet - Labs CBC & Chem 7: 01/09/25 06:26 01/09/25 06:26 Labs: Abnormal Lab Results - Last 24 Hours (Table) 01/07/25 01/08/25 01/08/25 Range/Units 20:19 02:00 05:54 WBC 16.71 H (4.50-10.00) 10*3/uL RBC 3.56 L (4.10-5.20) 10*6/uL Hgb 10.5 L (12.0-15.0) g/dL Hct 32.0 L (37.2-46.3) % Immature Gran # 0.20 H (0.00-0.04) 10*3/uL Neutrophils # 15.74 H (1.80-7.70) 10*3/uL Lymphocytes # 0.45 L (0.90-5.00) 10*3/uL Sodium (137-145) mmol/L BUN (7-17) mg/dL Glucose (74-99) mg/dL POC Glucose (mg/dL) 221 H 158 H (70-110) mg/dL 01/08/25 01/08/25 01/08/25 Range/Units 05:54 07:10 12:03 WBC (4.50-10.00) 10*3/uL RBC (4.10-5.20) 10*6/uL Hgb (12.0-15.0) g/dL Hct (37.2-46.3) % Immature Gran # (0.00-0.04) 10*3/uL Neutrophils # (1.80-7.70) 10*3/uL Lymphocytes # (0.90-5.00) 10*3/uL Sodium 134 L (137-145) mmol/L BUN 36 H (7-17) mg/dL Glucose 134 H (74-99) mg/dL POC Glucose (mg/dL) 224 H 243 H (70-110) mg/dL Assessment and Plan (1) Positive blood culture Current Visit: Yes Status: Acute Code(s): R78.81 - BACTEREMIA SNOMED Code(s): 096072127 (2) Leukocytosis Current Visit: Yes Status: Acute Code(s): D72.829 - ELEVATED WHITE BLOOD CELL COUNT, UNSPECIFIED SNOMED Code(s): 374312680 (3) Oropharyngeal candidiasis Current Visit: Yes Status: Acute Code(s): B37.0 - CANDIDAL STOMATITIS SNOMED Code(s): 47421363 Plan: 1patient with a positive blood culture with staph epi which is more likely skin contamination this patient who recently did have a right hip replacement however the right hip surgical site incision is currently healed with no cellulitis and the patient denies having any pain to the right hip area, no need for vancomycin however blood culture has been repeated which has been negative 2patient has been complaining of sore throat and difficulty swallowing concerning for oropharyngeal candidiasis for the patient is currently covered with Diflucan and nystatin swish and swallow 3the patient has developed significant subcutaneous emphysema not tracking up to the facial area pulmonary following the patient may benefit from chest tube Dictation was produced using [employer] dictation software. please excuse any grammatical, word or spelling errors. Time with Patient: Less than 30
--- NOTE | 2025-01-09 12:55 | P.PN ---
Subjective Progress Note Date: 01/09/25 Principal diagnosis: Reason for follow-up is a positive blood culture Patient is a 74-year-old female with a past medical history significant for Asthma, Blood Disorder, Coronary Artery Disease (CAD), Chest Pain / Angina, Heart Failure, Diabetes Mellitus, Eye Disorder, GERD/Reflux, Hyperlipidemia, Hypertension, Myocardial Infarction ([place]), Musculoskeletal Disorder, Osteoarthritis (OA), Renal Disease, Skin Disorder, Supraventricular Tachycardia (SVT), Thyroid Disorder who recently did have a right hip replacement, patient presented the hospital with increasing shortness of breath and cough did have a positive blood culture prompting this consultation. On today's evaluation that is 01/09/2025, Patient is afebrile this morning patient has developed significant puffiness to the facial area and has difficulty opening her eyes denies any worsening shortness of breath or chest pain still requiring 50% FiO2 on Airvo no vomiting or diarrhea. Patient white count 17.36, creatinine 0.78 chest x-ray with bilateral pneumothoraces pneumomediastinum diffuse subcutaneous emphysema Objective - Vital Signs Vital signs: Vital Signs Temp 97.6 F 01/09/25 09:20 Pulse 72 01/09/25 09:41 Resp 20 01/09/25 09:20 BP 130/58 01/09/25 09:20 Pulse Ox 91 L 01/09/25 09:20 FiO2 45 01/09/25 09:41 Intake & Output 01/08/25 01/09/25 01/09/25 18:59 06:59 18:59 Intake Total 240 180 Output Total 2000 950 Balance -1760 -950 180 Weight 85.5 kg 86 kg Intake: Oral 240 180 Output: Urine 2000 950 Other: Voiding Method External Catheter External Catheter External Catheter # Voids 1 - Exam GENERAL DESCRIPTION: An elderly female up in the bed in no distress RESPIRATORY SYSTEM: Unlabored breathing , decreased breath sounds at bases HEART: S1 S2 regular rate and rhythm , ABDOMEN: Soft , no tenderness EXTREMITIES: No edema feet - Labs CBC & Chem 7: 01/09/25 06:26 01/09/25 06:26 Labs: Abnormal Lab Results - Last 24 Hours (Table) 01/08/25 01/08/25 01/09/25 Range/Units 16:43 20:02 02:04 WBC (4.50-10.00) 10*3/uL RBC (4.10-5.20) 10*6/uL Hgb (12.0-15.0) g/dL Hct (37.2-46.3) % MCHC (32.0-37.0) g/dL Immature Gran # (0.00-0.04) 10*3/uL Neutrophils # (1.80-7.70) 10*3/uL Lymphocytes # (0.90-5.00) 10*3/uL Sodium (137-145) mmol/L BUN (7-17) mg/dL Glucose (74-99) mg/dL POC Glucose (mg/dL) 217 H 198 H 66 L (70-110) mg/dL 01/09/25 01/09/25 01/09/25 Range/Units 06:26 06:26 07:04 WBC 17.36 H (4.50-10.00) 10*3/uL RBC 3.75 L (4.10-5.20) 10*6/uL Hgb 10.7 L (12.0-15.0) g/dL Hct 34.3 L (37.2-46.3) % MCHC 31.2 L (32.0-37.0) g/dL Immature Gran # 0.18 H (0.00-0.04) 10*3/uL Neutrophils # 16.30 H (1.80-7.70) 10*3/uL Lymphocytes # 0.49 L (0.90-5.00) 10*3/uL Sodium 135 L (137-145) mmol/L BUN 39 H (7-17) mg/dL Glucose 193 H (74-99) mg/dL POC Glucose (mg/dL) 185 H (70-110) mg/dL 01/09/25 Range/Units 11:20 WBC (4.50-10.00) 10*3/uL RBC (4.10-5.20) 10*6/uL Hgb (12.0-15.0) g/dL Hct (37.2-46.3) % MCHC (32.0-37.0) g/dL Immature Gran # (0.00-0.04) 10*3/uL Neutrophils # (1.80-7.70) 10*3/uL Lymphocytes # (0.90-5.00) 10*3/uL Sodium (137-145) mmol/L BUN (7-17) mg/dL Glucose (74-99) mg/dL POC Glucose (mg/dL) 136 H (70-110) mg/dL Assessment and Plan (1) Positive blood culture Current Visit: Yes Status: Acute Code(s): R78.81 - BACTEREMIA SNOMED Code(s): 908152358 (2) Leukocytosis Current Visit: Yes Status: Acute Code(s): D72.829 - ELEVATED WHITE BLOOD CELL COUNT, UNSPECIFIED SNOMED Code(s): 908266724 (3) Oropharyngeal candidiasis Current Visit: Yes Status: Acute Code(s): B37.0 - CANDIDAL STOMATITIS SNOMED Code(s): 76692574 Plan: 1patient with a positive blood culture with staph epi which is more likely skin contamination this patient who recently did have a right hip replacement however the right hip surgical site incision is currently healed with no cellulitis and the patient denies having any pain to the right hip area, no need for vancomycin however blood culture has been repeated which has been negative 2patient has been complaining of sore throat and difficulty swallowing concerning for oropharyngeal candidiasis for the patient is currently covered with Diflucan and nystatin swish and swallow 3the patient has developed significant subcutaneous emphysema not tracking up to the facial area pulmonary following the patient CT surgery has been consulted and need for possible chest tube Dictation was produced using [employer] dictation software. please excuse any grammatical, word or spelling errors. Time with Patient: Less than 30
[2025-01-09 16:26] LABS: Glucose,Whole Blood 171 mg/dL (70-110)
[2025-01-09 19:57] LABS: Glucose,Whole Blood 277 mg/dL (70-110)
--- NOTE | 2025-01-09 20:10 | CDI ---
Documentation Clarification Form Date: 01/09/2025 07:19:37 PM From: Kelle Romero RN, CCDS Phone: [phone] Admit Date: 12/18/2024 07:43:00 PM Patient Name: Roshni Rodriguez Visit Number: [id number] Discharge Date: ATTENTION: The Clinical Documentation Specialists (CDI) and [facility] Coding Staff appreciate your assistance in clarifying documentation. Please respond to the clarification below the line at the bottom and electronically sign. The CDI & [facility] Coding staff will review the response and follow-up if needed. Please note: Queries are made part of the Legal Health Record. If you have any questions, please contact the author of this message via ITS. Doctor. Sofy Ramires A bilateral medial thigh pressure ulcer stage II and Right Buttock pressure ulcer stage II, Left Buttock stage I pressure injury documented by Wound Care starting on 01/03/25 and patient has history of Diabetes Mellitus. Based on this information and the findings below, is there an additional diagnosis that is clinically appropriate for this patient? History/Risk Factors: Asthma, Blood Disorder, Coronary Artery Disease (CAD), Heart Failure, Diabetes Mellitus, Clinical Indicators: [id number] generalized weakness, difficulty walking. Location: Bilateral medial thigh Stage II Description: Peggy-wound Maceration, Erythema Right Buttock stage II Peggy-wound Maceration, Color Erythema Left Buttock stage I pressure injury Bruise, warm dry Optifoam to buttock Treatment: Optiform dressing change Daily, as needed Turn and reposition Q2 HRS Check Hourly Absorbent Underpaid 1-2 Person assist Is there an additional diagnosis that is clinically appropriate for this patient? [ ] Diabetic pressure ulcer: bilateral medial thigh pressure ulcer stage II and Right Buttock pressure ulcer stage II, Left Buttock stage I pressure ulcer, Not POA [ ] Other condition, please specify [ ] Unable to determine Clinical Definitions: Stage 1 Pressure Ulcer: intact skin, non-blanching redness of local area Stage 2 Pressure Ulcer: Partial thickness, loss of dermis, pink wound bed Stage 3 Pressure Ulcer: Full thickness tissue loss Stage 4 Pressure Ulcer: Full thickness tissue loss with exposed bone, tendon, or muscle. Unstageable pressure ulcer: Full thickness tissue loss in which the base of the ulcer is covered by slough (yellow, pisano, mera, green or brown) and/or eschar (pisano, brown or black) in the wound bed. (Template Last Revised: September 2020) Diabetic pressure ulcer: bilateral medial thigh pressure ulcer stage II and Right Buttock pressure ulcer stage II, Left Buttock stage I pressure ulcer, Not POA MTDD
[2025-01-09] MEDS: LORazepam 1 MG/0.5 ML VIAL IV STA (20:48)
[2025-01-10 02:06] LABS: Glucose,Whole Blood 178 mg/dL (70-110)
[2025-01-10 05:53] LABS: Glucose,Whole Blood 170 mg/dL (70-110)
--- NOTE | 2025-01-10 06:15 | PN ---
PROGRESS NOTE DATE OF SERVICE: 01/09/2025 SUBJECTIVE: This is a 74-year-old woman who was admitted with acute hypoxic respiratory failure secondary to ARDS, also had spontaneous pneumothorax with extensive subcu emphysema. Subcutaneous emphysema has progressed to include the face and eyes are close shut at this time. Multiple consultants are following the patient closely. was seen the patient today and recommended cardiothoracic consultation. Blowholes planned by CT surgery. The prognosis remains extremely guarded. No chest tube insertion is being planned by CT Surgery. PAST MEDICAL HISTORY: Reviewed. REVIEW OF SYSTEMS: A 14-point review of systems negative except as mentioned earlier. CURRENT MEDICATIONS: Reviewed. PHYSICAL EXAMINATION: VITAL SIGNS: Pulse is 76, blood pressure 130/58, respirations 20. HEENT: Conjunctivae normal. NECK: No jugular venous distention. CARDIOVASCULAR: S1, S2. RESPIRATIONS: Bilateral scattered rhonchi and crackles. ABDOMEN: Soft, obese. EXTREMITIES: Legs, no edema. NERVOUS SYSTEM: No focal deficits. SKIN: Diffusely surgical emphysema and periorbital swelling also present. LABORATORY DATA: WBC 17.6, rest of the labs are noted. ASSESSMENT: 1. Acute hypoxic respiratory failure secondary to acute respiratory distress syndrome and spontaneous pneumothorax with extensive subcutaneous emphysema for blowholes. 2. Ischemic cardiomyopathy history. 3. Elevated WBC. 4. Possible bilateral pneumonia. 5. History of congestive heart failure. 6. Hypertension. 7. Hyperlipidemia. 8. Multiple complex medical issues. RECOMMENDATIONS: Recommend to continue current management and symptomatic treatment. Continue with pulmonary ID, Cardiothoracic Surgery. The patient is currently on IV steroids. We will continue to monitor the blood culture showed Staph epi. The white count is elevated. Further recommendations to follow. Prognosis guarded. I recommend repeat cultures at this time. MMODL / IJN: [id number] / [facility]ITALArelis
--- NOTE | 2025-01-10 07:27 | XR ---
EXAMINATION TYPE: XR chest 1V portable DATE OF EXAM: 01/10/2025 6:54 AM COMPARISON: Multiple radiographs, with the most recent on 01/09/2025 TECHNIQUE: XR chest 1V portable Portable AP radiograph of the chest. CLINICAL INDICATION:Female, 74 years old with history of Subcutaneous emphysema; FINDINGS: Patient is rotated which limits evaluation. Lungs/Pleura: Similar small bilateral pneumothoraces. Scattered airspace opacities throughout the mao gs again. No pleural effusion. Pulmonary vascularity: Unremarkable. Heart/mediastinum: Cardiomediastinal silhouette is enlarged. Pneumomediastinum redemonstrated. Three lead cardiac conduction device overlying the left hemithorax with lead tips projecting over the right ventricle, right atrium and coronary sinus. Musculoskeletal: No acute osseous pathology. Midline sternotomy wires are noted. Other findings: Similar diffuse subcutaneous emphysema scattered throughout the visualized thorax and visualized neck. IMPRESSION: Overall no significant change from prior exam. 1. Similar small bilateral pneumothoraces. 2. Similar pneumomediastinum. 3. Similar diffuse subcutaneous emphysema. 4. Patchy scattered airspace opacities within the lungs suggesting pulmonary edema and/or ARDS. [facility], , 01/10/2025 7:25 AM
[2025-01-10 07:41] LABS: Glucose,Whole Blood 149 mg/dL (70-110)
[2025-01-10 09:05] LABS: Basophils # (A) 0.02 10*3/uL (0.00-0.10); Basophils % (A) 0.1 %; Eosinophils # (A) 0.06 10*3/uL (0.04-0.35); Eosinophils % (A) 0.4 %; HCT 33.9 % (37.2-46.3); HGB 10.9 g/dL (12.0-15.0); Lymphocytes # (A) 0.52 10*3/uL (0.90-5.00); Lymphocytes % (A) 3.2 %; MCH 29.2 pg (27.0-32.0); MCHC 32.2 g/dL (32.0-37.0); MCV 90.9 fL (80.0-97.0); Monocytes # (A) 0.29 10*3/uL (0.20-1.00); Monocytes % (A) 1.8 %; Neutrophils # (A) 15.33 10*3/uL (1.80-7.70); Neutrophils % (A) 93.9 %; Platelet Count 142 10*3/uL (140-440); RBC 3.73 10*6/uL (4.10-5.20); RDW 15.5 % (11.5-14.5); WBC 16.32 10*3/uL (4.50-10.00)
[2025-01-10 09:26] LABS: African American GFR (CKD) >90 (>60 ml/min/1.73 sqM); Anion Gap 7 mmol/L; Blood Urea Nitrogen 40 mg/dL (7-17); Calcium 9.9 mg/dL (8.4-10.2); Carbon Dioxide 24 mmol/L (22-30); Chloride 102 mmol/L (98-107); Glucose 140 mg/dL (74-99); Non-African American GFR(CKD) 89 (>60 ml/min/1.73 sqM); Potassium 5.2 mmol/L (3.5-5.1); Sodium 133 mmol/L (137-145)
--- NOTE | 2025-01-10 09:28 | P.PN ---
Subjective Progress Note Date: 01/10/25 Principal diagnosis: Extensive subcutaneous emphysema. Past medical history significant for coronary artery disease with previous PCI and CABG, ischemic cardiomyopathy status post AICD placement, hypertension, hyperlipidemia, insulin-dependent diabetes, hypothyroid. Status post day #1 placement of below holes to try to relieve the subcutaneous emphysema with a 14-gauge Angiocath. The patient was seen and examined in follow-up today January 10, 2025 at her bedside on the third floor cardiac stepdown unit. She is currently laying in bed, is awake, alert, oriented x 3 and is in no acute apparent distress. She denies any complaints of pain or shortness of breath at this time. She reports that she feels more comfortable today as her subcutaneous emphysema has improved in the last 24 hours since having her Angiocath placed for blowhole's. Oxygen saturations are 95% on 45% FiO2 and O2 flow rate of 50 with Airvo. She is achieving 500 mL on her incentive spirometry with encouragement. Remote telemetry is showing V paced rhythm heart rate 72 bpm. Chest x-ray results reviewed. Objective - Vital Signs Vital signs: Vital Signs Temp 97.8 F 01/10/25 03:40 Pulse 74 01/10/25 07:49 Resp 20 01/10/25 03:40 BP 136/74 01/10/25 03:40 Pulse Ox 95 01/10/25 03:40 FiO2 45 01/10/25 07:38 Intake & Output 01/09/25 01/10/25 01/10/25 18:59 06:59 18:59 Intake Total 540 240 Output Total 1500 700 Balance -960 -700 240 Weight 85.5 kg Intake: Oral 540 240 Output: Urine 1500 700 Other: Voiding Method External Catheter External Catheter - Exam CONSTITUTIONAL: Appears comfortable, cooperative, no acute distress. RESPIRATORY: Lungs sounds diminished throughout bilaterally. Respirations even, nonlabored. Currently on Airvo with FiO2 45% and flow rate 50 with oxygen saturation 95%. Able to achieve 500 mL on incentive spirometry. Strong cough. CARDIOVASCULAR: S1, S2 present. Regular rate and rhythm, V paced rhythm on telemetry heart rate 72 bpm. Palpable peripheral pulses bilaterally. No edema present. No calf pain or tenderness noted. GASTROINTESTINAL: Abdomen soft, nontender, nondistended. Active bowel sounds present 4 quadrants. Tolerating diet. GENITOURINARY: Continues to void clear, yellow urine. Urine output 700 mL in the last 8 hours. INTEGUMENTARY: Skin is warm and dry with evidence of good perfusion. Subclavicular 14-gauge Angiocath in place for blowholes. NEUROLOGIC: Cranial nerves II through XII intact. No focal deficits. MUSKULOSKELETAL: Able to move all extremities, strength equal bilaterally, generalized weakness. PSYCHIATRIC: Alert and oriented to person place and time, appropriate affect, intact judgment and insight. - Allied health notes Allied health notes reviewed: nursing - Labs CBC & Chem 7: 01/10/25 08:03 01/09/25 06:26 Labs: Abnormal Lab Results - Last 24 Hours (Table) 01/09/25 01/09/25 01/09/25 Range/Units 11:20 16:24 19:55 WBC (4.50-10.00) 10*3/uL RBC (4.10-5.20) 10*6/uL Hgb (12.0-15.0) g/dL Hct (37.2-46.3) % Immature Gran # (0.00-0.04) 10*3/uL Neutrophils # (1.80-7.70) 10*3/uL Lymphocytes # (0.90-5.00) 10*3/uL POC Glucose (mg/dL) 136 H 171 H 277 H (70-110) mg/dL 01/10/25 01/10/25 01/10/25 Range/Units 02:02 05:51 07:38 WBC (4.50-10.00) 10*3/uL RBC (4.10-5.20) 10*6/uL Hgb (12.0-15.0) g/dL Hct (37.2-46.3) % Immature Gran # (0.00-0.04) 10*3/uL Neutrophils # (1.80-7.70) 10*3/uL Lymphocytes # (0.90-5.00) 10*3/uL POC Glucose (mg/dL) 178 H 170 H 149 H (70-110) mg/dL 01/10/25 Range/Units 08:03 WBC 16.32 H (4.50-10.00) 10*3/uL RBC 3.73 L (4.10-5.20) 10*6/uL Hgb 10.9 L (12.0-15.0) g/dL Hct 33.9 L (37.2-46.3) % Immature Gran # 0.10 H (0.00-0.04) 10*3/uL Neutrophils # 15.33 H (1.80-7.70) 10*3/uL Lymphocytes # 0.52 L (0.90-5.00) 10*3/uL POC Glucose (mg/dL) (70-110) mg/dL - Imaging and Cardiology Chest x-ray: report reviewed, image reviewed Assessment and Plan Assessment: Extensive subcutaneous emphysema extending upper chest, neck, face, status post placement of 2 angio cath 14-gauge subclavicular acting as blowhole's Bilateral tiny pneumothoraces, pneumomediastinum found on CT Pneumonia Acute hypoxic respiratory failure secondary to above History of coronary artery disease with previous PCI and CABG Ischemic cardiomyopathy status post AICD placement Hypertension Hyperlipidemia Insulin-dependent diabetes Hypothyroid Plan: Keep 14-gauge Angiocath in place asblowhole's for at least another 24 hours. Continue to monitor daily chest x-rays. Encourage use of incentive spirometry 10 times every hour while awake. Increase activity as tolerated. Medical management of other comorbidities per internal medicine, pulmonary critical care service, and infectious disease. More recommendations to follow based on patient's clinical course. Time with Patient: Less than 30
[2025-01-10 11:23] LABS: Glucose,Whole Blood 293 mg/dL (70-110)
--- NOTE | 2025-01-10 15:31 | P.PN ---
Subjective Progress Note Date: 01/10/25 Patient is a 75-year-old female with past medical history significant for hypertension, hyperlipidemia, insulin-dependent diabetes mellitus, obesity, coronary artery disease with previous CABG, ischemic cardiomyopathy with an ejection fraction of 25 to 30% with AICD, asthma, and osteoarthritis. Of note, patient recently underwent right direct anterior total hip arthroplasty on 11/24/2024. She was discharged from the hospital to [facility] for rehabilitation. While at the outside facility, developed shortness of breath, coughing, and generalized weakness. States she was released from [facility] to home last Wednesday on November. Since then, she has fallen twice while at home. Brought in by EMS yesterday evening hypoxic and confused. She was placed on supplemental oxygen. Workup in the emergency department including a chest x-ray showing patchy bilateral lung infiltrates concerning for congestive heart failure or atypical pneumonias. CBC: WBC count 14.7, hemoglobin 9.5 g/dL, platelets 374. BMP: Sodium 132, potassium 4.4, chloride 100, serum bicarb 23, BUN 16, creatinine 0.92, glucose 124. Lactic 1.8. LFTs unremarkable. Troponin less than 0.012. NT proBNP 6.74. Viral 4 Plex negative for influenza A/B, RSV, COVID. Urinalysis unremarkable for UTI. Patient currently being evaluated on the general medical floor. She is alert and oriented x 3. Endorses above menti oned complaints. Does report history of asthma. Has had increased work of breathing over the last couple weeks. Suffering from persistent nonproductive cough over the same timeframe. States her symptoms actually started at [facility]. She has had a poor appetite with occasional nausea and vomiting. She has been able to take some of her home medications. Has had intermittent fevers with a Tmax of 100.8 F. Was started on empiric antibiotics in the ED, in the form azithromycin and Rocephin. Normal saline infusing at 50 mL/h. Denies any chest pain. Does endorse unilateral right lower lower extremity edema. No heart palpitations, syncopal events, hemoptysis. Current vital signs: Temperature 100.8 F, heart rate 95 bpm, blood pressure 124/54 mmHg, nontachypneic, SpO2 recorded at 96% on 3 L/min nasal cannula. The patient is seen today December 20, 2024 and follow-up on the regular medical floor. She is currently sitting up in bed. Awake and alert in no acute distress. Feeling a bit better today compared to yesterday. Maintaining O2 saturations in the 90s on 3 L/min per nasal cannula. Chest x-ray shows continued infiltrate of the right lung with improvement in the left lung. Blood culture is coming back positive. ID pending. White count 15.9. Hemoglobin 9.3. Platelets 371. Sodium 139. Potassium 4.2. Bicarb 27. BUN 16. Creatinine 1.01. Glucose 133. She remains on DuoNeb inhalations, IV Solu- Medrol, IV diuretics. Lovenox for DVT prophylaxis. Antibiotics in the form of ceftriaxone. The patient is seen today December 21, 2024 in follow-up on the regular medical floor. She is currently sitting up in a chair. Awake and alert in no acute distress. Maintaining O2 saturations in the 90s on 3 L/min per nasal cannula. She has been afebrile. Hemodynamically stable. Blood cultures showing staph epidermidis, most likely contaminant. White count 21.1. Hemoglobin 9.0. Platelets 409. Sodium 137. Potassium 4.5. Bicarb 30. BUN 29. Creatinine 1. 28. Glucose 172. proBNP 2180. She remains on DuoNeb inhalations, Solu-Medrol. Antibiotics in the form of ceftriaxone. Lovenox for DVT prophylaxis. Remains on IV diuretics. No accurate intake and output recorded. Chest x-ray showing similar findings with basilar infiltrates right greater than left. The patient is seen today December 22, 2024 in follow-up on the regular medical floor. She is sitting up at the bedside. Awake and alert in no acute distress. She has been slow to progress. She is still dyspneic with minimal exertion. Dyspneic with conversation. She is maintaining O2 saturations in the 90s on 7 L high flow nasal cannula. Echocardiogram reveals impaired left ventricular systolic function with an ejection fraction [address] scan of the chest revealed marked diffuse scattered groundglass opacities consistent with pulmonary edema, ARDS or pneumonia. AICD in place. Blood culture positive for Staphylococcus epidermidis. White count 17.9. Hemoglobin 9.4. Platelets 386. Sodium 136. Potassium 4.7. Bicarb 28. BUN 37. Creatinine 1.06. Glucose 176. She remains on DuoNeb inhalations, Solu-Medrol. Remains on oral diuretics. Antibiotics in the form of ceftriaxone. Heparin for DVT prophylaxis. The patient is seen today December 23, 2024 in follow-up on the regular medical floor. She is currently resting in bed. Awake and alert in no acute distress. Feeling a bit better today compared to yesterday. She is maintaining O2 saturations in the 90s on 6 L high flow nasal cannula. She remains afebrile. Hemodynamically stable. Initial blood cultures showing staph epidermidis. Follow-up blood culture reveals no growth. White count 17.6. Hemoglobin 9.2. Platelets 381. Sodium 138. Potassium 4.4. Bicarb 28. BUN 45. Creatinine 1.11. Glucose 115. Arterial blood gases on 44% FiO2 revealed a PO2 of 50, [id number] and a pH of 7.42. She remains on DuoNeb inhalations, Solu-Medrol and Robitussin as needed. Heparin for DVT prophylaxis. She remains on Lasix 40 mg every 12 hours. No accurate intake and output recorded. The patient is seen today December 24, 2024 in follow-up on the regular medical floor. She is awake and alert in no acute distress. Resting in bed. No worsening shortness of breath, cough or congestion. She is still requiring 10 L high flow nasal cannula to maintain O2 saturations in the 90s. Lung sounds improved. Blood cultures were positive for Staphylococcus epidermidis. Most likely a contaminant. Follow-up blood culture revealed no growth. Glucose 233. She remains on DuoNeb inhalations, Symbicort, Solu-Medrol. She remains on IV Lasix. Heparin for DVT prophylaxis. Currently in a -1.9 L balance. The patient is seen today December 25, 2024 in follow-up in the intensive care unit. She was transferred down here last evening after having issues with worsening hypoxemia. She is currently on Airvo high flow oxygen at 50 L and 50% FiO2. She is afebrile. Hemodynamically stable. Chest x-ray continues to show cardiomegaly with pulmonary vascular congestion and bilateral pleural effusions. Follow-up blood culture revealed no growth. White count 17.9. Hemoglobin 9.7. Platelets 350. Sodium 137. Potassium 4.8. Bicarb 31. BUN 49. Creatinine 1.16. Glucose 224. She remains on DuoNeb inhalations, Symbicort, Solu-Medrol. Heparin for DVT prophylaxis. She remains on Lasix 40 mg IV every 12 hours. C urrently in a -4 L balance. The patient is seen today December 26, 2024 in follow-up in the intensive care unit. She is currently sitting up in bed. Awake and alert in no acute distress. Feeling a bit better today compared to yesterday. She is still high flow oxygen at 50 L and 60% FiO2. No IV fluids. She has been afebrile. Hemodynamically stable. Chest x-ray continues to show diffuse infiltrates bilaterally right greater than left. Follow-up blood culture reveals no growth. White count 1 9.5. Hemoglobin 10.0. Platelets 359. Sodium 137. Potassium 4.2. Bicarb 33. BUN 54. Creatinine 1.07. Glucose 280. Continued on Lasix 40 mg IV every 12 hours. Currently net -3.3 L balance. She remains on DuoNeb and elations, Symbicort, Solu-Medrol. Robitussin for her cough. The patient is seen today December 28, 2024 in follow-up in the intensive care unit. She is awake and alert in no acute distress. Sitting up in bed. Remains on Airvo high flow oxygen at 50 L and 50% FiO2. No IV fluids. Chest x-ray is showing fluid volume overload but improving. Initial blood culture positive for staph epidermidis. Follow-up blood culture revealed no growth. White count 19.6. Hemoglobin 10.4. Platelets 352. Sodium 134. Potassium 4.0. Bicarb 33. BUN 66. Creatinine 1.12. Glucose 205. She is continued on DuoNeb inhalations, Symbicort, Solu-Medrol. Heparin for DVT prophylaxis. She remains on Lasix 40 mg IV every 12 hours. Currently in a -700 mL balance. The patient is seen today December 29, 2024 in follow-up in the intensive care unit. She is currently sitting up in bed. Awake and alert in no acute distress. Deny any worsening shortness of breath, cough or congestion. Feeling better. She is now on 8 L high flow nasal cannula. Chest x-ray continues to show improvement. White count 26.0. Hemoglobin 10.7. Platelets 352. Sodium 136. Potassium 4.3. Bicarb 34. BUN 63. Creatinine 1.11. Glucose 185. She remains on DuoNeb inhalations, Symbicort, Solu-Medrol. Heparin for DVT prophylaxis. Continued on Lasix 40 mg every 12 hours. Currently in a -700 mL balance. The patient is seen today January 08, 2025 in follow-up on the selective care unit. She is currently sitting up in bed. Awake and alert in no acute distress. She had developed extensive subcutaneous emphysema for chest and neck and face. She remains on Airvo high flow oxygen at 50 L and 45% FiO2. Chest x-ray shows similar small bilateral pneumothoraces. Similar pneumomediastinum. Similar diffuse subcutaneous emphysema. Patchy scattered airspace opacity within the lungs suggesting pulmonary edema and/or ARDS. Follow-up blood culture revealed no growth. White count 16.7. Hemoglobin 10.5. Platelets 165. Sodium 134. Potassium 4.6. Bicarb 25. BUN 36. Creatinine 0.77. Glucose 134. She remains on DuoNeb inhalations, Symbicort, Solu-Medrol. Heparin for DVT prophylaxis. Remains on diuretics. Remains on cefepime. The patient is seen today January 09, 2025 in follow-up on the selective care unit. She is awake and alert in no acute distress. Sitting up in bed. Her subcutane ous emphysema is worsening. Her eyes are swollen shut now. CT services are planning to place blow holes today. She remains on Airvo high flow oxygen at 50 L and 45% FiO2. Chest x-ray continues to show similar small bilateral pneumothoraces. Similar pneumomediastinum. Similar diffuse subcutaneous emphysema. Patchy scattered airspace opacities within the lung suggesting pulmonary edema and/or ARDS. Follow-up blood culture revealed no growth. White count 17.3. Hemoglobin 10.7. Platelets 160. Sodium 135. Potassium 4.5. Bicarb 23. BUN 39. Creatinine 0.78. Glucose 193. She remains on DuoNeb and elations, Symbicort, Solu-Medrol. Heparin for DVT prophylaxis. Remains on oral diuretics. Remains on cefepime and Diflucan. The patient is seen today January 10, 2025 in follow-up on the selective care unit. She is currently sitting up in bed. Awake and alert in no acute distress. D oing better today compared to yesterday. She did have two blow hole's placed. Her subcutaneous emphysema has improved. She is able to open her eyes. No worsening shortness of breath, cough or congestion. Continued on Airvo high flow oxygen at 50 L and 44% FiO2. She remains on DuoNeb inhalations, Symbicort, IV Solu-Medrol. Heparin for DVT prophylaxis. Remains on oral diuretics. Remains on cefepime. Chest x-ray shows similar small bilateral pneumothoraces. Similar pneumomediastinum. Similar diffuse subcutaneous emphysema. Patchy scattered airspace opacities bilaterally. White count 16.3. Hemoglobin 10.9. Platelets 142. Sodium 133. Potassium 5.2. Bicarb 24. BUN 40. Creatinine 0.65. Glucose 140. Objective - Vital Signs Vital signs: Vital Signs Temp 97.7 F 01/10/25 12:00 Pulse 76 01/10/25 15:18 Resp 18 01/10/25 12:00 BP 144/77 01/10/25 12:00 Pulse Ox 93 L 01/10/25 12:00 FiO2 44 01/10/25 15:06 Intake & Output 01/09/25 01/10/25 01/10/25 18:59 06:59 18:59 Intake Total 540 480 Output Total 1500 700 400 Balance -960 -700 80 Weight 85.5 kg Intake: Oral 540 480 Output: Urine 1500 700 400 Other: Voiding Method External Catheter External Catheter External Catheter - Exam GENERAL EXAM: Alert, 74-year-old female, sitting up in bed, on Airvo high flow oxygen at 50 L and 45% FiO2, in no acute distress. HEAD: Evidence of significant subcutaneous emphysema over face EYES: Eyes less swollen from subcutaneous emphysema NOSE: Clear with pink turbinates. THROAT: No erythema or exudates. NECK: No masses, no JVD. CHEST: Extensive subcutaneous emphysema. Left chest implanted device. Two blow holes in place. LUNGS: Equal air entry crackles in the posterior bases right greater than left. CVS: S1 and S2 normal with no audible murmur, regular rhythm. No extra heart sounds ABDOMEN: No hepatosplenomegaly, active bowel sounds, no guarding or rigidity. SPINE: No scoliosis or deformity SKIN: No rashes CENTRAL NERVOUS SYSTEM: No focal deficits, tone is normal in all 4 extremities. EXTREMITIES: Right anterior hip incision is approximated. Full range of motion. Right lower extremity pitting edema. Peripheral pulses are intact. - Labs CBC & Chem 7: 01/10/25 08:03 01/10/25 08:03 Labs: Abnormal Lab Results - Last 24 Hours (Table) 01/09/25 01/09/25 01/10/25 Range/Units 16:24 19:55 02:02 WBC (4.50-10.00) 10*3/uL RBC (4.10-5.20) 10*6/uL Hgb (12.0-15.0) g/dL Hct (37.2-46.3) % Immature Gran # (0.00-0.04) 10*3/uL Neutrophils # (1.80-7.70) 10*3/uL Lymphocytes # (0.90-5.00) 10*3/uL Sodium (137-145) mmol/L Potassium (3.5-5.1) mmol/L BUN (7-17) mg/dL Glucose (74-99) mg/dL POC Glucose (mg/dL) 171 H 277 H 178 H (70-110) mg/dL 01/10/25 01/10/25 01/10/25 Range/Units 05:51 07:38 08:03 WBC 16.32 H (4.50-10.00) 10*3/uL RBC 3.73 L (4.10-5.20) 10*6/uL Hgb 10.9 L (12.0-15.0) g/dL Hct 33.9 L (37.2-46.3) % Immature Gran # 0.10 H (0.00-0.04) 10*3/uL Neutrophils # 15.33 H (1.80-7.70) 10*3/uL Lymphocytes # 0.52 L (0.90-5.00) 10*3/uL Sodium (137-145) mmol/L Potassium (3.5-5.1) mmol/L BUN (7-17) mg/dL Glucose (74-99) mg/dL POC Glucose (mg/dL) 170 H 149 H (70-110) mg/dL 01/10/25 01/10/25 Range/Units 08:03 11:21 WBC (4.50-10.00) 10*3/uL RBC (4.10-5.20) 10*6/uL Hgb (12.0-15.0) g/dL Hct (37.2-46.3) % Immature Gran # (0.00-0.04) 10*3/uL Neutrophils # (1.80-7.70) 10*3/uL Lymphocytes # (0.90-5.00) 10*3/uL Sodium 133 L (137-145) mmol/L Potassium 5.2 H (3.5-5.1) mmol/L BUN 40 H (7-17) mg/dL Glucose 140 H (74-99) mg/dL POC Glucose (mg/dL) 293 H (70-110) mg/dL Assessment and Plan Assessment: Acute hypoxemic respiratory failure with CT scan of the chest reveals marked diffuse scattered groundglass opacities consistent with pulmonary edema, ARDS or pneumonia. Moderate cardiomegaly. Procalcitonin negative x 2.The CAT scan of the chest was also consistent with ARDS with secondary complications of bilateral minimal pneumothoraces, pneumomediastinum and subcutaneous emphysema. The patient is currently on IV Solu-Medrol. CHF seems to be quite well optimized and the patient's most recent echocardiogram showed an ejection fraction of 40 to 45%. The patient is also on empiric antibiotic coverage. Cefepime. Chest x-ray findings showing worsening of subcutaneous emphysema. Nevertheless, there is no worsening in the pneumothorax or oxygenation. Remains on Airvo high flow oxygen at 50 L and 45% FiO2. Tiny bilateral pneumothoraces Pneumomediastinum Extensive subcutaneous emphysema secondary to above Acute febrile illness, recovered Acute leukocytosis, improving History of right direct anterior total hip arthroplasty on November 24 Acute blood loss anemia, expected outcome of surgery Hypertension History of hyperlipidemia Insulin-dependent diabetes mellitus Obesity with a BMI of 35.4 kg/m Coronary artery disease, with history of CABG and cardiac stents History of ischemic cardiomyopathy with an ejection fraction improved to 40 to 45% Implanted AICD/pacemaker Hypothyroidism Anxiety/depression Poor overall functional performance based on the above-mentioned multiple comorbidities Plan: The patient was seen and evaluated Chest x-ray, labs and medications reviewed Slightly improved subcutaneous emphysema Improved following blowhole placement Currently on Airvo high flow oxygen Currently on cefepime Continue Solu-Medrol Continue Lasix Continue DuoNeb inhalations Continue Symbicort Heparin for DVT prophylaxis Titrate down the FiO2 as tolerated Increase her activity as tolerated Overall prognosis is guarded We will continue to follow I have personally seen and examined the patient, performed the documentation and the assessment and plan as written. Number of minutes spent on the visit: 10 Dictation was produced using [employer] dictation software. Please excuse any grammatical, word or spelling errors.
[2025-01-10 16:30] LABS: Glucose,Whole Blood 245 mg/dL (70-110)
[2025-01-10 20:00] LABS: Glucose,Whole Blood 240 mg/dL (70-110)
--- NOTE | 2025-01-11 00:40 | XR ---
EXAM: XR Chest, 1 View CLINICAL HISTORY: ITS.REASON XR Reason: increasing subQ emphysemia TECHNIQUE: Frontal view of the chest. COMPARISON: 6:23 a.m. FINDINGS: Lungs: Unremarkable. No consolidation. Pleural space: Small right pneumothorax. Similar when compared to 6: 23 a.m.. Heart: Cardiomegaly. Sternotomy wires. Mediastinum: Unremarkable. Bones/joints: See above. Soft tissues: Extensive overlying subcutaneous air. Tubes, lines and devices: AICD/pacemaker. IMPRESSION: 1. Small right pneumothorax. Similar when compared to 6:23 a.m. 2. Extensive overlying subcutaneous air.
[2025-01-11 02:27] LABS: Glucose,Whole Blood 98 mg/dL (70-110)
[2025-01-11 06:01] LABS: Glucose,Whole Blood 326 mg/dL (70-110)
[2025-01-11 06:54] LABS: Basophils # (A) 0.02 10*3/uL (0.00-0.10); Basophils % (A) 0.1 %; Eosinophils # (A) 0.04 10*3/uL (0.04-0.35); Eosinophils % (A) 0.3 %; HCT 31.7 % (37.2-46.3); HGB 10.2 g/dL (12.0-15.0); Lymphocytes # (A) 0.42 10*3/uL (0.90-5.00); Lymphocytes % (A) 2.7 %; MCH 29.3 pg (27.0-32.0); MCHC 32.2 g/dL (32.0-37.0); MCV 91.1 fL (80.0-97.0); Monocytes # (A) 0.24 10*3/uL (0.20-1.00); Monocytes % (A) 1.5 %; Neutrophils # (A) 14.86 10*3/uL (1.80-7.70); Neutrophils % (A) 94.6 %; Platelet Count 121 10*3/uL (140-440); RBC 3.48 10*6/uL (4.10-5.20); RDW 15.6 % (11.5-14.5); WBC 15.71 10*3/uL (4.50-10.00)
[2025-01-11 07:15] LABS: African American GFR (CKD) >90 (>60 ml/min/1.73 sqM); Anion Gap 7 mmol/L; Blood Urea Nitrogen 45 mg/dL (7-17); Calcium 9.5 mg/dL (8.4-10.2); Carbon Dioxide 23 mmol/L (22-30); Chloride 100 mmol/L (98-107); Glucose 324 mg/dL (74-99); Non-African American GFR(CKD) 80 (>60 ml/min/1.73 sqM); Potassium 5.2 mmol/L (3.5-5.1); Sodium 130 mmol/L (137-145)
--- NOTE | 2025-01-11 07:20 | XR ---
EXAMINATION TYPE: XR chest 1V portable DATE OF EXAM: 01/11/2025 7:10 AM COMPARISON: Multiple radiographs, with the most recent on 01/10/2025 TECHNIQUE: XR chest 1V portable Portable AP radiograph of the chest. CLINICAL INDICATION:Female, 74 years old with history of Subcutaneous emphysema; FINDINGS: Lungs/Pleura: Similar small bilateral pneumothoraces. Scattered airspace opacities throughout the mao gs again. Slightly increased within the right lung base. No pleural effusion. Pulmonary vascularity: Unremarkable. Heart/mediastinum: Cardiomediastinal silhouette is enlarged. Pneumomediastinum redemonstrated. Three lead cardiac conduction device overlying the left hemithorax with lead tips projecting over the right ventricle, right atrium and coronary sinus. Musculoskeletal: No acute osseous pathology. Midline sternotomy wires are noted. Other findings: Similar diffuse subcutaneous emphysema scattered throughout the visualized thorax and visualized neck. IMPRESSION: 1. Similar small bilateral pneumothoraces. 2. Similar pneumomediastinum. 3. Similar diffuse subcutaneous emphysema. 4. Patchy scattered airspace opacities within the lungs suggesting pulmonary edema and/or ARDS. This is slightly worsened in the right lung base. [facility], , 01/11/2025 7:18 AM
--- NOTE | 2025-01-11 07:29 | PN ---
PROGRESS NOTE DATE OF SERVICE: 01/10/2025 SUBJECTIVE: This 74-year-old woman, who was admitted with acute hypoxic respiratory failure, also had significant subcutaneous emphysema. The patient underwent placement of blowholes to try to relieve subcutaneous emphysema with a 14-gauge Angiocath. No chest pain. No palpitation. OBJECTIVE: VITAL SIGNS: On exam, pulse is 72, blood pressure n, respirations 18. CHEST: A few scattered rhonchi a. ABDOMEN: Soft. NERVOUS SYSTEM: Nonfocal. LABORATORY DATA: Reviewed. ASSESSMENT: 1. Acute hypoxic respiratory failure secondary to acute respiratory distress syndrome and spontaneous pneumothorax with extensive subcutaneous emphysema, status post blowholes placement with angiocath. 2. Ischemic cardiomyopathy history. 3. Elevated WBC. 4. Possible bilateral pneumonia. 5. History of congestive heart failure. 6. Hypertension. 7. Hyperlipidemia. 8. Multiple complex medical issues. RECOMMENDATIONS: Recommend to continue current management and symptomatic treatment. Otherwise, continue with incentive spirometry. Repeat lytes. Monitor blood sugars closely. Guarded prognosis. Further recommendations to follow. MMODL / IJN: [id number] / MTDD
[2025-01-11 07:52] LABS: Glucose,Whole Blood 303 mg/dL (70-110)
[2025-01-11 11:17] LABS: Glucose,Whole Blood 345 mg/dL (70-110)
--- NOTE | 2025-01-11 13:53 | P.PN ---
Subjective Progress Note Date: 01/11/25 Principal diagnosis: Extensive subcutaneous emphysema. Past medical history significant for coronary artery disease with previous PCI and CABG, ischemic cardiomyopathy status post AICD placement, hypertension, hyperlipidemia, insulin-dependent diabetes, hypothyroid. Status post day #2 placement of below holes to try to relieve the subcutaneous emphysema with a 14-gauge Angiocath. The patient was seen and examined in follow-up today January 11, 2025 at her bedside on the third floor cardiac stepdown unit. She is currently laying in bed, is awake, alert, oriented x 3 and is in no acute apparent distress. She denies any complaints of pain or shortness of breath at this time. The patient states she continues to feel like the subcutaneous emphysema is resolving each day since the Angiocaths have been placed. She remains on Airvo support with flow rate of 50 and FiO2 55%. Oxygen saturations are 94% on current Airvo settings and she is achieving 750 mL on her incentive spirometry with encouragement. Chest x-ray results reviewed. Objective - Vital Signs Vital signs: Vital Signs Temp 97.6 F 01/11/25 08:00 Pulse 72 01/11/25 11:21 Resp 18 01/11/25 08:00 BP 118/68 01/11/25 08:00 Pulse Ox 94 L 01/11/25 11:09 FiO2 55 01/11/25 11:09 Intake & Output 01/10/25 01/11/25 01/11/25 18:59 06:59 18:59 Intake Total 720 30 0 Output Total 400 400 Balance 320 -370 0 Weight 83.5 kg Intake: IV 30 0.9 30 Oral 720 0 Output: Urine 400 400 Other: Voiding Method External Catheter External Catheter External Catheter # Voids 1 - Exam CONSTITUTIONAL: Appears comfortable, cooperative, no acute distress. RESPIRATORY: Lungs sounds diminished throughout bilaterally. Respirations even, nonlabored. Currently on Airvo with FiO2 55% and flow rate 50 with oxygen saturation 94%. Able to achieve 750 mL on incentive spirometry. Strong cough. CARDIOVASCULAR: S1, S2 present. Regular rate and rhythm, V paced rhythm on telemetry heart rate 77 bpm. Palpable peripheral pulses bilaterally. No edema present. No calf pain or tenderness noted. GASTROINTESTINAL: Abdomen soft, nontender, nondistended. Active bowel sounds present 4 quadrants. Tolerating diet. GENITOURINARY: Continues to void clear, yellow urine. INTEGUMENTARY: Skin is warm and dry with evidence of good perfusion. Subclavicular 14-gauge Angiocath in place for blowholes. NEUROLOGIC: Cranial nerves II through XII intact. No focal deficits. MUSKULOSKELETAL: Able to move all extremities, strength equal bilaterally, generalized weakness. PSYCHIATRIC: Alert and oriented to person place and time, appropriate affect, intact judgment and insight. - Allied health notes Allied health notes reviewed: nursing - Labs CBC & Chem 7: 01/11/25 06:23 01/11/25 06:23 Labs: Abnormal Lab Results - Last 24 Hours (Table) 01/10/25 01/10/25 01/11/25 Range/Units 16:28 19:59 05:59 WBC (4.50-10.00) 10*3/uL RBC (4.10-5.20) 10*6/uL Hgb (12.0-15.0) g/dL Hct (37.2-46.3) % Plt Count (140-440) 10*3/uL Immature Gran # (0.00-0.04) 10*3/uL Neutrophils # (1.80-7.70) 10*3/uL Lymphocytes # (0.90-5.00) 10*3/uL Sodium (137-145) mmol/L Potassium (3.5-5.1) mmol/L BUN (7-17) mg/dL Glucose (74-99) mg/dL POC Glucose (mg/dL) 245 H 240 H 326 H (70-110) mg/dL 01/11/25 01/11/25 01/11/25 Range/Units 06:23 06:23 07:46 WBC 15.71 H (4.50-10.00) 10*3/uL RBC 3.48 L (4.10-5.20) 10*6/uL Hgb 10.2 L (12.0-15.0) g/dL Hct 31.7 L (37.2-46.3) % Plt Count 121 L (140-440) 10*3/uL Immature Gran # 0.13 H (0.00-0.04) 10*3/uL Neutrophils # 14.86 H (1.80-7.70) 10*3/uL Lymphocytes # 0.42 L (0.90-5.00) 10*3/uL Sodium 130 L (137-145) mmol/L Potassium 5.2 H (3.5-5.1) mmol/L BUN 45 H (7-17) mg/dL Glucose 324 H (74-99) mg/dL POC Glucose (mg/dL) 303 H (70-110) mg/dL 01/11/25 Range/Units 11:15 WBC (4.50-10.00) 10*3/uL RBC (4.10-5.20) 10*6/uL Hgb (12.0-15.0) g/dL Hct (37.2-46.3) % Plt Count (140-440) 10*3/uL Immature Gran # (0.00-0.04) 10*3/uL Neutrophils # (1.80-7.70) 10*3/uL Lymphocytes # (0.90-5.00) 10*3/uL Sodium (137-145) mmol/L Potassium (3.5-5.1) mmol/L BUN (7-17) mg/dL Glucose (74-99) mg/dL POC Glucose (mg/dL) 345 H (70-110) mg/dL Microbiology - Last 24 Hours (Table) 01/09/25 15:00 Blood Culture - Preliminary Blood - Imaging and Cardiology Chest x-ray: report reviewed, image reviewed Assessment and Plan Assessment: Extensive subcutaneous emphysema extending upper chest, neck, face, status post placement of 2 angio cath 14-gauge subclavicular acting as blowhole's Bilateral tiny pneumothoraces, pneumomediastinum found on CT Pneumonia Acute hypoxic respiratory failure secondary to above History of coronary artery disease with previous PCI and CABG Ischemic cardiomyopathy status post AICD placement Hypertension Hyperlipidemia Insulin-dependent diabetes Hypothyroid Plan: Keep 14-gauge Angiocath in place asblowhole's for at least another 24 hours. Continue to monitor daily chest x-rays. Encourage use of incentive spirometry 10 times every hour while awake. Increase activity as tolerated. Medical management of other comorbidities per internal medicine, pulmonary critical care service, and infectious disease. More recommendations to follow based on patient's clinical course. Time with Patient: Greater than 30
--- NOTE | 2025-01-11 16:02 | P.PN ---
Subjective Progress Note Date: 01/11/25 Patient is a 75-year-old female with past medical history significant for hypertension, hyperlipidemia, insulin-dependent diabetes mellitus, obesity, coronary artery disease with previous CABG, ischemic cardiomyopathy with an ejection fraction of 25 to 30% with AICD, asthma, and osteoarthritis. Of note, patient recently underwent right direct anterior total hip arthroplasty on 11/24/2024. She was discharged from the hospital to [facility] for rehabilitation. While at the outside facility, developed shortness of breath, coughing, and generalized weakness. States she was released from [facility] to home last Wednesday on November. Since then, she has fallen twice while at home. Brought in by EMS yesterday evening hypoxic and confused. She was placed on supplemental oxygen. Workup in the emergency department including a chest x-ray showing patchy bilateral lung infiltrates concerning for congestive heart failure or atypical pneumonias. CBC: WBC count 14.7, hemoglobin 9.5 g/dL, platelets 374. BMP: Sodium 132, potassium 4.4, chloride 100, serum bicarb 23, BUN 16, creatinine 0.92, glucose 124. Lactic 1.8. LFTs unremarkable. Troponin less than 0.012. NT proBNP 6.74. Viral 4 Plex negative for influenza A/B, RSV, COVID. Urinalysis unremarkable for UTI. Patient currently being evaluated on the general medical floor. She is alert and oriented x 3. Endorses above menti oned complaints. Does report history of asthma. Has had increased work of breathing over the last couple weeks. Suffering from persistent nonproductive cough over the same timeframe. States her symptoms actually started at [facility]. She has had a poor appetite with occasional nausea and vomiting. She has been able to take some of her home medications. Has had intermittent fevers with a Tmax of 100.8 F. Was started on empiric antibiotics in the ED, in the form azithromycin and Rocephin. Normal saline infusing at 50 mL/h. Denies any chest pain. Does endorse unilateral right lower lower extremity edema. No heart palpitations, syncopal events, hemoptysis. Current vital signs: Temperature 100.8 F, heart rate 95 bpm, blood pressure 124/54 mmHg, nontachypneic, SpO2 recorded at 96% on 3 L/min nasal cannula. The patient is seen today December 20, 2024 and follow-up on the regular medical floor. She is currently sitting up in bed. Awake and alert in no acute distress. Feeling a bit better today compared to yesterday. Maintaining O2 saturations in the 90s on 3 L/min per nasal cannula. Chest x-ray shows continued infiltrate of the right lung with improvement in the left lung. Blood culture is coming back positive. ID pending. White count 15.9. Hemoglobin 9.3. Platelets 371. Sodium 139. Potassium 4.2. Bicarb 27. BUN 16. Creatinine 1.01. Glucose 133. She remains on DuoNeb inhalations, IV Solu- Medrol, IV diuretics. Lovenox for DVT prophylaxis. Antibiotics in the form of ceftriaxone. The patient is seen today December 21, 2024 in follow-up on the regular medical floor. She is currently sitting up in a chair. Awake and alert in no acute distress. Maintaining O2 saturations in the 90s on 3 L/min per nasal cannula. She has been afebrile. Hemodynamically stable. Blood cultures showing staph epidermidis, most likely contaminant. White count 21.1. Hemoglobin 9.0. Platelets 409. Sodium 137. Potassium 4.5. Bicarb 30. BUN 29. Creatinine 1. 28. Glucose 172. proBNP 2180. She remains on DuoNeb inhalations, Solu-Medrol. Antibiotics in the form of ceftriaxone. Lovenox for DVT prophylaxis. Remains on IV diuretics. No accurate intake and output recorded. Chest x-ray showing similar findings with basilar infiltrates right greater than left. The patient is seen today December 22, 2024 in follow-up on the regular medical floor. She is sitting up at the bedside. Awake and alert in no acute distress. She has been slow to progress. She is still dyspneic with minimal exertion. Dyspneic with conversation. She is maintaining O2 saturations in the 90s on 7 L high flow nasal cannula. Echocardiogram reveals impaired left ventricular systolic function with an ejection fraction [address] scan of the chest revealed marked diffuse scattered groundglass opacities consistent with pulmonary edema, ARDS or pneumonia. AICD in place. Blood culture positive for Staphylococcus epidermidis. White count 17.9. Hemoglobin 9.4. Platelets 386. Sodium 136. Potassium 4.7. Bicarb 28. BUN 37. Creatinine 1.06. Glucose 176. She remains on DuoNeb inhalations, Solu-Medrol. Remains on oral diuretics. Antibiotics in the form of ceftriaxone. Heparin for DVT prophylaxis. The patient is seen today December 23, 2024 in follow-up on the regular medical floor. She is currently resting in bed. Awake and alert in no acute distress. Feeling a bit better today compared to yesterday. She is maintaining O2 saturations in the 90s on 6 L high flow nasal cannula. She remains afebrile. Hemodynamically stable. Initial blood cultures showing staph epidermidis. Follow-up blood culture reveals no growth. White count 17.6. Hemoglobin 9.2. Platelets 381. Sodium 138. Potassium 4.4. Bicarb 28. BUN 45. Creatinine 1.11. Glucose 115. Arterial blood gases on 44% FiO2 revealed a PO2 of 50, [id number] and a pH of 7.42. She remains on DuoNeb inhalations, Solu-Medrol and Robitussin as needed. Heparin for DVT prophylaxis. She remains on Lasix 40 mg every 12 hours. No accurate intake and output recorded. The patient is seen today December 24, 2024 in follow-up on the regular medical floor. She is awake and alert in no acute distress. Resting in bed. No worsening shortness of breath, cough or congestion. She is still requiring 10 L high flow nasal cannula to maintain O2 saturations in the 90s. Lung sounds improved. Blood cultures were positive for Staphylococcus epidermidis. Most likely a contaminant. Follow-up blood culture revealed no growth. Glucose 233. She remains on DuoNeb inhalations, Symbicort, Solu-Medrol. She remains on IV Lasix. Heparin for DVT prophylaxis. Currently in a -1.9 L balance. The patient is seen today December 25, 2024 in follow-up in the intensive care unit. She was transferred down here last evening after having issues with worsening hypoxemia. She is currently on Airvo high flow oxygen at 50 L and 50% FiO2. She is afebrile. Hemodynamically stable. Chest x-ray continues to show cardiomegaly with pulmonary vascular congestion and bilateral pleural effusions. Follow-up blood culture revealed no growth. White count 17.9. Hemoglobin 9.7. Platelets 350. Sodium 137. Potassium 4.8. Bicarb 31. BUN 49. Creatinine 1.16. Glucose 224. She remains on DuoNeb inhalations, Symbicort, Solu-Medrol. Heparin for DVT prophylaxis. She remains on Lasix 40 mg IV every 12 hours. C urrently in a -4 L balance. The patient is seen today December 26, 2024 in follow-up in the intensive care unit. She is currently sitting up in bed. Awake and alert in no acute distress. Feeling a bit better today compared to yesterday. She is still high flow oxygen at 50 L and 60% FiO2. No IV fluids. She has been afebrile. Hemodynamically stable. Chest x-ray continues to show diffuse infiltrates bilaterally right greater than left. Follow-up blood culture reveals no growth. White count 1 9.5. Hemoglobin 10.0. Platelets 359. Sodium 137. Potassium 4.2. Bicarb 33. BUN 54. Creatinine 1.07. Glucose 280. Continued on Lasix 40 mg IV every 12 hours. Currently net -3.3 L balance. She remains on DuoNeb and elations, Symbicort, Solu-Medrol. Robitussin for her cough. The patient is seen today December 28, 2024 in follow-up in the intensive care unit. She is awake and alert in no acute distress. Sitting up in bed. Remains on Airvo high flow oxygen at 50 L and 50% FiO2. No IV fluids. Chest x-ray is showing fluid volume overload but improving. Initial blood culture positive for staph epidermidis. Follow-up blood culture revealed no growth. White count 19.6. Hemoglobin 10.4. Platelets 352. Sodium 134. Potassium 4.0. Bicarb 33. BUN 66. Creatinine 1.12. Glucose 205. She is continued on DuoNeb inhalations, Symbicort, Solu-Medrol. Heparin for DVT prophylaxis. She remains on Lasix 40 mg IV every 12 hours. Currently in a -700 mL balance. The patient is seen today December 29, 2024 in follow-up in the intensive care unit. She is currently sitting up in bed. Awake and alert in no acute distress. Deny any worsening shortness of breath, cough or congestion. Feeling better. She is now on 8 L high flow nasal cannula. Chest x-ray continues to show improvement. White count 26.0. Hemoglobin 10.7. Platelets 352. Sodium 136. Potassium 4.3. Bicarb 34. BUN 63. Creatinine 1.11. Glucose 185. She remains on DuoNeb inhalations, Symbicort, Solu-Medrol. Heparin for DVT prophylaxis. Continued on Lasix 40 mg every 12 hours. Currently in a -700 mL balance. The patient is seen today January 08, 2025 in follow-up on the selective care unit. She is currently sitting up in bed. Awake and alert in no acute distress. She had developed extensive subcutaneous emphysema for chest and neck and face. She remains on Airvo high flow oxygen at 50 L and 45% FiO2. Chest x-ray shows similar small bilateral pneumothoraces. Similar pneumomediastinum. Similar diffuse subcutaneous emphysema. Patchy scattered airspace opacity within the lungs suggesting pulmonary edema and/or ARDS. Follow-up blood culture revealed no growth. White count 16.7. Hemoglobin 10.5. Platelets 165. Sodium 134. Potassium 4.6. Bicarb 25. BUN 36. Creatinine 0.77. Glucose 134. She remains on DuoNeb inhalations, Symbicort, Solu-Medrol. Heparin for DVT prophylaxis. Remains on diuretics. Remains on cefepime. The patient is seen today January 09, 2025 in follow-up on the selective care unit. She is awake and alert in no acute distress. Sitting up in bed. Her subcutane ous emphysema is worsening. Her eyes are swollen shut now. CT services are planning to place blow holes today. She remains on Airvo high flow oxygen at 50 L and 45% FiO2. Chest x-ray continues to show similar small bilateral pneumothoraces. Similar pneumomediastinum. Similar diffuse subcutaneous emphysema. Patchy scattered airspace opacities within the lung suggesting pulmonary edema and/or ARDS. Follow-up blood culture revealed no growth. White count 17.3. Hemoglobin 10.7. Platelets 160. Sodium 135. Potassium 4.5. Bicarb 23. BUN 39. Creatinine 0.78. Glucose 193. She remains on DuoNeb and elations, Symbicort, Solu-Medrol. Heparin for DVT prophylaxis. Remains on oral diuretics. Remains on cefepime and Diflucan. The patient is seen today January 10, 2025 in follow-up on the selective care unit. She is currently sitting up in bed. Awake and alert in no acute distress. D oing better today compared to yesterday. She did have two blow hole's placed. Her subcutaneous emphysema has improved. She is able to open her eyes. No worsening shortness of breath, cough or congestion. Continued on Airvo high flow oxygen at 50 L and 44% FiO2. She remains on DuoNeb inhalations, Symbicort, IV Solu-Medrol. Heparin for DVT prophylaxis. Remains on oral diuretics. Remains on cefepime. Chest x-ray shows similar small bilateral pneumothoraces. Similar pneumomediastinum. Similar diffuse subcutaneous emphysema. Patchy scattered airspace opacities bilaterally. White count 16.3. Hemoglobin 10.9. Platelets 142. Sodium 133. Potassium 5.2. Bicarb 24. BUN 40. Creatinine 0.65. Glucose 140. The patient is seen today January 11, 2025 in follow-up on the selective care unit. She is currently awake and alert in no acute distress. Sitting up in bed. Still showing improvement in the subcutaneous emphysema. She is maintaining O2 saturations in the 90s on Airvo high flow oxygen at 50 L and 55% FiO2. She has been afebrile. Hemodynamically stable. Chest x-ray continues to show similar small bilateral pneumothoraces with similar pneumomediastinum. Similar diffuse subcutaneous emphysema. Patchy scattered airspace opacities continue. Initial blood culture showing Staphylococcus epidermidis. Follow-up blood cultures x 2 revealed no growth. White count 15.7. Hemoglobin 10.2. Platelets 121. Sodium 130. Potassium 5.2. Bicarb 23. BUN 45. Creatinine 0.75. Glucose 324. She remains on DuoNeb inhalations, Symbicort, Solu-Medrol. Heparin for DVT prophyla xis. Remains on cefepime. Remains on diuretics. Objective - Vital Signs Vital signs: Vital Signs Temp 97.6 F 01/11/25 08:00 Pulse 72 01/11/25 15:14 Resp 18 01/11/25 08:00 BP 118/68 01/11/25 08:00 Pulse Ox 94 L 01/11/25 11:09 FiO2 55 01/11/25 15:02 Intake & Output 01/10/25 01/11/25 01/11/25 18:59 06:59 18:59 Intake Total 720 30 240 Output Total 400 400 750 Balance 320 -370 -510 Weight 83.5 kg Intake: IV 30 0.9 30 Oral 720 240 Output: Urine 400 400 750 Other: Voiding Method External Catheter External Catheter External Catheter # Voids 1 - Exam GENERAL EXAM: Alert, pleasant 74-year-old female, sitting up in bed, on Airvo high flow oxygen at 50 L and 55% FiO2, in no acute distress. HEAD: Evidence of significant subcutaneous emphysema over face EYES: Eyes less swollen from subcutaneous emphysema NOSE: Clear with pink turbinates. THROAT: No erythema or exudates. NECK: No masses, no JVD. CHEST: Extensive subcutaneous emphysema. Left chest implanted device. Two blow holes in place. LUNGS: Equal air entry crackles in the posterior bases right greater than left. CVS: S1 and S2 normal with no audible murmur, regular rhythm. No extra heart sounds ABDOMEN: No hepatosplenomegaly, active bowel sounds, no guarding or rigidity. SPINE: No scoliosis or deformity SKIN: No rashes CENTRAL NERVOUS SYSTEM: No focal deficits, tone is normal in all 4 extremities. EXTREMITIES: Right anterior hip incision is approximated. Full range of motion. Right lower extremity pitting edema. Peripheral pulses are intact. - Labs CBC & Chem 7: 01/11/25 06:23 01/11/25 06:23 Labs: Abnormal Lab Results - Last 24 Hours (Table) 01/10/25 01/10/25 01/11/25 Range/Units 16:28 19:59 05:59 WBC (4.50-10.00) 10*3/uL RBC (4.10-5.20) 10*6/uL Hgb (12.0-15.0) g/dL Hct (37.2-46.3) % Plt Count (140-440) 10*3/uL Immature Gran # (0.00-0.04) 10*3/uL Neutrophils # (1.80-7.70) 10*3/uL Lymphocytes # (0.90-5.00) 10*3/uL Sodium (137-145) mmol/L Potassium (3.5-5.1) mmol/L BUN (7-17) mg/dL Glucose (74-99) mg/dL POC Glucose (mg/dL) 245 H 240 H 326 H (70-110) mg/dL 01/11/25 01/11/25 01/11/25 Range/Units 06:23 06:23 07:46 WBC 15.71 H (4.50-10.00) 10*3/uL RBC 3.48 L (4.10-5.20) 10*6/uL Hgb 10.2 L (12.0-15.0) g/dL Hct 31.7 L (37.2-46.3) % Plt Count 121 L (140-440) 10*3/uL Immature Gran # 0.13 H (0.00-0.04) 10*3/uL Neutrophils # 14.86 H (1.80-7.70) 10*3/uL Lymphocytes # 0.42 L (0.90-5.00) 10*3/uL Sodium 130 L (137-145) mmol/L Potassium 5.2 H (3.5-5.1) mmol/L BUN 45 H (7-17) mg/dL Glucose 324 H (74-99) mg/dL POC Glucose (mg/dL) 303 H (70-110) mg/dL 01/11/25 Range/Units 11:15 WBC (4.50-10.00) 10*3/uL RBC (4.10-5.20) 10*6/uL Hgb (12.0-15.0) g/dL Hct (37.2-46.3) % Plt Count (140-440) 10*3/uL Immature Gran # (0.00-0.04) 10*3/uL Neutrophils # (1.80-7.70) 10*3/uL Lymphocytes # (0.90-5.00) 10*3/uL Sodium (137-145) mmol/L Potassium (3.5-5.1) mmol/L BUN (7-17) mg/dL Glucose (74-99) mg/dL POC Glucose (mg/dL) 345 H (70-110) mg/dL Microbiology - Last 24 Hours (Table) 01/09/25 15:00 Blood Culture - Preliminary Blood Assessment and Plan Assessment: Acute hypoxemic respiratory failure with CT scan of the chest reveals marked diffuse scattered groundglass opacities consistent with pulmonary edema, ARDS or pneumonia. Moderate cardiomegaly. Procalcitonin negative x 2.The CAT scan of the chest was also consistent with ARDS with secondary complications of bilateral minimal pneumothoraces, pneumomediastinum and subcutaneous emphysema. The patient is currently on IV Solu-Medrol. CHF seems to be quite well optimized and the patient's most recent echocardiogram showed an ejection fraction of 40 to 45%. The patient is also on empiric antibiotic coverage. Cefepime. Chest x-ray findings showing worsening of subcutaneous emphysema. Nevertheless, there is no worsening in the pneumothorax or oxygenation. Remains on Airvo high flow oxygen at 50 L and 55% FiO2. Tiny bilateral pneumothoraces Pneumomediastinum Extensive subcutaneous emphysema secondary to above Acute febrile illness, recovered Acute leukocytosis, improving History of right direct anterior total hip arthroplasty on November 24 Acute blood loss anemia, expected outcome of surgery Hypertension History of hyperlipidemia Insulin-dependent diabetes mellitus Obesity with a BMI of 35.4 kg/m Coronary artery disease, with history of CABG and cardiac stents History of ischemic cardiomyopathy with an ejection fraction improved to 40 to 45% Implanted AICD/pacemaker Hypothyroidism Anxiety/depression Poor overall functional performance based on the above-mentioned multiple comorbidities Plan: The patient was seen and evaluated Chest x-ray, labs and medications reviewed Improved subcutaneous emphysema Currently on Airvo high flow oxygen Currently on cefepime Continue Solu-Medrol Continue Lasix Continue DuoNeb inhalations Continue Symbicort Heparin for DVT prophylaxis Titrate down the FiO2 as tolerated Increase her activity as tolerated Overall prognosis is guarded Plan is for select specialty at discharge I have personally seen and examined the patient, performed the documentation and the assessment and plan as written. Number of minutes spent on the visit: 10 Dictation was produced using [employer] dictation software. Please excuse any grammatical, word or spelling errors.
[2025-01-11 16:18] LABS: Glucose,Whole Blood 277 mg/dL (70-110)
[2025-01-11 20:36] LABS: Glucose,Whole Blood 266 mg/dL (70-110)
--- NOTE | 2025-01-11 22:32 | P.PN ---
Subjective Progress Note Date: 01/10/25 Principal diagnosis: Reason for follow-up is a positive blood culture Patient is a 74-year-old female with a past medical history significant for Asthma, Blood Disorder, Coronary Artery Disease (CAD), Chest Pain / Angina, Heart Failure, Diabetes Mellitus, Eye Disorder, GERD/Reflux, Hyperlipidemia, Hypertension, Myocardial Infarction ([place]), Musculoskeletal Disorder, Osteoarthritis (OA), Renal Disease, Skin Disorder, Supraventricular Tachycardia (SVT), Thyroid Disorder who recently did have a right hip replacement, patient presented the hospital with increasing shortness of breath and cough did have a positive blood culture prompting this consultation. On today's evaluation that is 01/10/2025,the patient continues to be afebrile patient still requiring high flow nasal cannula supplemental oxygen overall she is swelling has slightly decreased. Denies chest pain or worsening cough no abdominal pain or diarrhea. Patient white count down to 16.32, creatinine 0.65 Objective - Vital Signs Vital signs: Vital Signs Temp 97.8 F 01/10/25 08:00 Pulse 76 01/10/25 11:54 Resp 20 01/10/25 08:00 BP 105/64 01/10/25 08:00 Pulse Ox 91 L 01/10/25 08:00 FiO2 44 01/10/25 11:45 Intake & Output 01/09/25 01/10/25 01/10/25 18:59 06:59 18:59 Intake Total 540 240 Output Total 1500 700 Balance -960 -700 240 Weight 85.5 kg Intake: Oral 540 240 Output: Urine 1500 700 Other: Voiding Method External Catheter External Catheter - Exam GENERAL DESCRIPTION: An elderly female up in the bed in no distress RESPIRATORY SYSTEM: Unlabored breathing , decreased breath sounds at bases HEART: S1 S2 regular rate and rhythm , ABDOMEN: Soft , no tenderness EXTREMITIES: No edema feet - Labs CBC & Chem 7: 01/11/25 06:23 01/11/25 06:23 Labs: Abnormal Lab Results - Last 24 Hours (Table) 01/09/25 01/09/25 01/10/25 Range/Units 16:24 19:55 02:02 WBC (4.50-10.00) 10*3/uL RBC (4.10-5.20) 10*6/uL Hgb (12.0-15.0) g/dL Hct (37.2-46.3) % Immature Gran # (0.00-0.04) 10*3/uL Neutrophils # (1.80-7.70) 10*3/uL Lymphocytes # (0.90-5.00) 10*3/uL Sodium (137-145) mmol/L Potassium (3.5-5.1) mmol/L BUN (7-17) mg/dL Glucose (74-99) mg/dL POC Glucose (mg/dL) 171 H 277 H 178 H (70-110) mg/dL 01/10/25 01/10/25 01/10/25 Range/Units 05:51 07:38 08:03 WBC 16.32 H (4.50-10.00) 10*3/uL RBC 3.73 L (4.10-5.20) 10*6/uL Hgb 10.9 L (12.0-15.0) g/dL Hct 33.9 L (37.2-46.3) % Immature Gran # 0.10 H (0.00-0.04) 10*3/uL Neutrophils # 15.33 H (1.80-7.70) 10*3/uL Lymphocytes # 0.52 L (0.90-5.00) 10*3/uL Sodium (137-145) mmol/L Potassium (3.5-5.1) mmol/L BUN (7-17) mg/dL Glucose (74-99) mg/dL POC Glucose (mg/dL) 170 H 149 H (70-110) mg/dL 01/10/25 01/10/25 Range/Units 08:03 11:21 WBC (4.50-10.00) 10*3/uL RBC (4.10-5.20) 10*6/uL Hgb (12.0-15.0) g/dL Hct (37.2-46.3) % Immature Gran # (0.00-0.04) 10*3/uL Neutrophils # (1.80-7.70) 10*3/uL Lymphocytes # (0.90-5.00) 10*3/uL Sodium 133 L (137-145) mmol/L Potassium 5.2 H (3.5-5.1) mmol/L BUN 40 H (7-17) mg/dL Glucose 140 H (74-99) mg/dL POC Glucose (mg/dL) 293 H (70-110) mg/dL Assessment and Plan (1) Positive blood culture Current Visit: Yes Status: Acute Code(s): R78.81 - BACTEREMIA SNOMED Code(s): 690341271 (2) Leukocytosis Current Visit: Yes Status: Acute Code(s): D72.829 - ELEVATED WHITE BLOOD CELL COUNT, UNSPECIFIED SNOMED Code(s): 150720960 (3) Oropharyngeal candidiasis Current Visit: Yes Status: Acute Code(s): B37.0 - CANDIDAL STOMATITIS SNOMED Code(s): 86646704 Plan: 1patient with a positive blood culture with staph epi which is more likely skin contamination this patient who recently did have a right hip replacement however the right hip surgical site incision is currently healed with no cellulitis and the patient denies having any pain to the right hip area, no need for vancomycin however blood culture has been repeated which has been negative 2patient with elevated white count symptom of sore throat and concerning for oropharyngeal candidiasis for the patient is currently covered with Diflucan and nystatin swish and swallow 3the patient has developed significant subcutaneous emphysema patient is status post placement of below holes to try to relieve the subcutaneous emphysema with a 14-gauge Angiocath by CT surgery and noticed to have some improvement. Dictation was produced using [employer] dictation software. please excuse any grammatical, word or spelling errors. Time with Patient: Less than 30
--- NOTE | 2025-01-11 22:34 | P.PN ---
Subjective Progress Note Date: 01/11/25 Principal diagnosis: Reason for follow-up is a positive blood culture/leukocytosis/thrush Patient is a 74-year-old female with a past medical history significant for Asthma, Blood Disorder, Coronary Artery Disease (CAD), Chest Pain / Angina, Heart Failure, Diabetes Mellitus, Eye Disorder, GERD/Reflux, Hyperlipidemia, Hypertension, Myocardial Infarction ([place]), Musculoskeletal Disorder, Osteoarthritis (OA), Renal Disease, Skin Disorder, Supraventricular Tachycardia (SVT), Thyroid Disorder who recently did have a right hip replacement, patient presented the hospital with increasing shortness of breath and cough did have a positive blood culture prompting this consultation. On today's evaluation that is 01/11/2025,the patient remains to be afebrile, patient is on high flow nasal cannula 50% supplemental oxygen and breathing slightly comfortably overall patient swelling has decreased and the patient able to open her eyes denies any chest pain or worsening cough no abdominal pain or diarrhea. Patient white count is at 15.7, creatinine 0.75 blood culture 7 1 has been negative so far Objective - Vital Signs Vital signs: Vital Signs Temp 97.6 F 01/11/25 08:00 Pulse 72 01/11/25 11:21 Resp 18 01/11/25 08:00 BP 118/68 01/11/25 08:00 Pulse Ox 94 L 01/11/25 11:09 FiO2 55 01/11/25 11:09 Intake & Output 01/10/25 01/11/25 01/11/25 18:59 06:59 18:59 Intake Total 720 30 0 Output Total 400 400 Balance 320 -370 0 Weight 83.5 kg Intake: IV 30 0.9 30 Oral 720 0 Output: Urine 400 400 Other: Voiding Method External Catheter External Catheter External Catheter # Voids 1 - Exam GENERAL DESCRIPTION: An elderly female up in the bed in no distress RESPIRATORY SYSTEM: Unlabored breathing , decreased breath sounds at bases HEART: S1 S2 regular rate and rhythm , ABDOMEN: Soft , no tenderness EXTREMITIES: No edema feet - Labs CBC & Chem 7: 01/11/25 06:23 01/11/25 06:23 Labs: Abnormal Lab Results - Last 24 Hours (Table) 01/10/25 01/10/25 01/11/25 Range/Units 16:28 19:59 05:59 WBC (4.50-10.00) 10*3/uL RBC (4.10-5.20) 10*6/uL Hgb (12.0-15.0) g/dL Hct (37.2-46.3) % Plt Count (140-440) 10*3/uL Immature Gran # (0.00-0.04) 10*3/uL Neutrophils # (1.80-7.70) 10*3/uL Lymphocytes # (0.90-5.00) 10*3/uL Sodium (137-145) mmol/L Potassium (3.5-5.1) mmol/L BUN (7-17) mg/dL Glucose (74-99) mg/dL POC Glucose (mg/dL) 245 H 240 H 326 H (70-110) mg/dL 01/11/25 01/11/25 01/11/25 Range/Units 06:23 06:23 07:46 WBC 15.71 H (4.50-10.00) 10*3/uL RBC 3.48 L (4.10-5.20) 10*6/uL Hgb 10.2 L (12.0-15.0) g/dL Hct 31.7 L (37.2-46.3) % Plt Count 121 L (140-440) 10*3/uL Immature Gran # 0.13 H (0.00-0.04) 10*3/uL Neutrophils # 14.86 H (1.80-7.70) 10*3/uL Lymphocytes # 0.42 L (0.90-5.00) 10*3/uL Sodium 130 L (137-145) mmol/L Potassium 5.2 H (3.5-5.1) mmol/L BUN 45 H (7-17) mg/dL Glucose 324 H (74-99) mg/dL POC Glucose (mg/dL) 303 H (70-110) mg/dL 01/11/25 Range/Units 11:15 WBC (4.50-10.00) 10*3/uL RBC (4.10-5.20) 10*6/uL Hgb (12.0-15.0) g/dL Hct (37.2-46.3) % Plt Count (140-440) 10*3/uL Immature Gran # (0.00-0.04) 10*3/uL Neutrophils # (1.80-7.70) 10*3/uL Lymphocytes # (0.90-5.00) 10*3/uL Sodium (137-145) mmol/L Potassium (3.5-5.1) mmol/L BUN (7-17) mg/dL Glucose (74-99) mg/dL POC Glucose (mg/dL) 345 H (70-110) mg/dL Microbiology - Last 24 Hours (Table) 01/09/25 15:00 Blood Culture - Preliminary Blood Assessment and Plan (1) Positive blood culture Current Visit: Yes Status: Acute Code(s): R78.81 - BACTEREMIA SNOMED Code(s): 197617460 (2) Leukocytosis Current Visit: Yes Status: Acute Code(s): D72.829 - ELEVATED WHITE BLOOD CELL COUNT, UNSPECIFIED SNOMED Code(s): 124768953 (3) Oropharyngeal candidiasis Current Visit: Yes Status: Acute Code(s): B37.0 - CANDIDAL STOMATITIS SNOMED Code(s): 91471859 Plan: 1patient with a positive blood culture with staph epi which is more likely skin contamination this patient who recently did have a right hip replacement however the right hip surgical site incision is currently healed with no cellulitis and the patient denies having any pain to the right hip area, no need for vancomycin however blood culture has been repeated which has been negative 2the patient has developed significant subcutaneous emphysema patient is status post placement of below holes to try to relieve the subcutaneous emphysema with a 14-gauge Angiocath by CT surgery and patient did have some improvement. 3-patient is afebrile patient white count is trending down continue nystatin swish and swallow and Diflucan Dictation was produced using [employer] dictation software. please excuse any grammatical, word or spelling errors. Time with Patient: Less than 30
--- NOTE | 2025-01-12 01:06 | PN ---
PROGRESS NOTE DATE OF SERVICE: 01/11/2025 SUBJECTIVE: This is a 74-year-old woman, who was admitted with acute respiratory failure, also had significant subcutaneous emphysema after the blowholes. The patient is improving significantly. No chest pain. No palpitation. Still short of breath. OBJECTIVE: VITAL SIGNS: Pulse is 72, blood pressure 118/60, respirations 18, O2 sats 92% on high- flow nasal cannula. HEENT: Conjunctivae normal. NECK: No jugular venous distention. CARDIOVASCULAR: S1, S2. RESPIRATIONS: Bilateral scattered rhonchi and crackles. ABDOMEN: Soft, obese. EXTREMITIES: Legs, no edema. LABORATORY DATA: Accu-Cheks noted. ASSESSMENT: 1. Acute hypoxic respiratory failure secondary to acute respiratory distress syndrome and spontaneous pneumothorax with extensive subcutaneous emphysema, status post blowholes placement with angiocath. 2. Ischemic cardiomyopathy history. 3. Diabetes mellitus, type 2, uncontrolled with hyperglycemia. 4. Elevated WBC. 5. Possible bilateral pneumonia. 6. History of congestive heart failure. 7. Hypertension. 8. Hyperlipidemia. 9. Multiple complex medical issues. RECOMMENDATIONS: Recommend to continue current management and symptomatic treatment. Continue the bronchodilators, broad-spectrum IV antibiotics. Recommend increase the dose of Lantus. Continue to monitor. Further recommendations to follow. MMODL / IJN: [id number] /
[2025-01-12 02:02] LABS: Glucose,Whole Blood 122 mg/dL (70-110)
[2025-01-12 05:56] LABS: Glucose,Whole Blood 145 mg/dL (70-110)
[2025-01-12 06:31] LABS: Basophils # (A) 0.02 10*3/uL (0.00-0.10); Basophils % (A) 0.1 %; Eosinophils # (A) 0.04 10*3/uL (0.04-0.35); Eosinophils % (A) 0.3 %; HCT 30.7 % (37.2-46.3); HGB 10.1 g/dL (12.0-15.0); Lymphocytes # (A) 0.33 10*3/uL (0.90-5.00); Lymphocytes % (A) 2.3 %; MCH 30.1 pg (27.0-32.0); MCHC 32.9 g/dL (32.0-37.0); MCV 91.4 fL (80.0-97.0); Monocytes # (A) 0.16 10*3/uL (0.20-1.00); Monocytes % (A) 1.1 %; Neutrophils # (A) 13.76 10*3/uL (1.80-7.70); Neutrophils % (A) 95.6 %; Platelet Count 110 10*3/uL (140-440); RBC 3.36 10*6/uL (4.10-5.20); RDW 15.3 % (11.5-14.5); WBC 14.40 10*3/uL (4.50-10.00)
[2025-01-12 06:45] LABS: ALT 54 U/L (4-34); AST 25 U/L (14-36); African American GFR (CKD) >90 (>60 ml/min/1.73 sqM); Albumin 2.7 g/dL (3.5-5.0); Alkaline Phosphatase 132 U/L (38-126); Anion Gap 5 mmol/L; Blood Urea Nitrogen 41 mg/dL (7-17); Calcium 9.8 mg/dL (8.4-10.2); Carbon Dioxide 26 mmol/L (22-30); Chloride 99 mmol/L (98-107); Glucose 130 mg/dL (74-99); Non-African American GFR(CKD) 87 (>60 ml/min/1.73 sqM); Potassium 5.3 mmol/L (3.5-5.1); Sodium 130 mmol/L (137-145); Total Protein 5.3 g/dL (6.3-8.2)
[2025-01-12 07:54] LABS: Glucose,Whole Blood 220 mg/dL (70-110)
--- NOTE | 2025-01-12 08:13 | XR ---
EXAMINATION TYPE: XR chest 1V portable DATE OF EXAM: 01/12/2025 7:17 AM COMPARISON: Chest radiograph from one day prior. TECHNIQUE: XR chest 1V portable Portable AP radiograph of the chest. CLINICAL INDICATION:Female, 74 years old with history of Subcutaneous emphysema; FINDINGS: Lungs/Pleura: Similar small bilateral pneumothoraces. Scattered airspace opacities throughout the mao gs again. No pleural effusion. Pulmonary vascularity: Unremarkable. Heart/mediastinum: Cardiomediastinal silhouette is enlarged. Pneumomediastinum redemonstrated. Three lead cardiac conduction device overlying the left hemithorax with lead tips projecting over the right ventricle, right atrium and coronary sinus. Musculoskeletal: No acute osseous pathology. Midline sternotomy wires are noted. Other findings: Similar diffuse subcutaneous emphysema scattered throughout the visualized thorax and visualized neck. IMPRESSION: 1. Similar small bilateral pneumothoraces. 2. Similar pneumomediastinum. 3. Similar diffuse subcutaneous emphysema. 4. Patchy scattered airspace opacities within the lungs suggesting pulmonary edema and/or ARDS. [facility], , 01/12/2025 8:11 AM
--- NOTE | 2025-01-12 09:16 | P.PN ---
Subjective Progress Note Date: 01/12/25 Principal diagnosis: Extensive subcutaneous emphysema. Past medical history significant for coronary artery disease with previous PCI and CABG, ischemic cardiomyopathy status post AICD placement, hypertension, hyperlipidemia, insulin-dependent diabetes, hypothyroid. Status post day #3 placement of below holes to try to relieve the subcutaneous emphysema with a 14-gauge Angiocath. The patient was seen and examined in follow-up today January 12, 2025 at her bedside on the third floor cardiac stepdown unit. She is currently laying in bed, is awake, alert, oriented x 3 and is in no acute apparent distress. She denies any complaints of pain or shortness of breath at this time. The patient states she continues to feel like the subcutaneous emphysema is resolving each day. She remains on Airvo support with flow rate of 50 and FiO2 50%. Oxygen saturations are 95% on current Airvo settings and she is achieving 750 mL on her incentive spirometry with encouragement. Chest x-ray results reviewed. Dressings have been changed to her subclavicular Angiocath. The Angiocath to the right has dislodged and is totally out. Objective - Vital Signs Vital signs: Vital Signs Temp 97.8 F 01/12/25 04:00 Pulse 70 01/12/25 09:13 Resp 18 01/12/25 04:00 BP 149/73 01/12/25 04:00 Pulse Ox 95 01/12/25 09:02 FiO2 50 01/12/25 09:02 Intake & Output 01/11/25 01/12/25 01/12/25 18:59 06:59 18:59 Intake Total 480 120 Output Total 750 700 Balance -270 -580 Weight 83.5 kg Intake: Oral 480 120 Output: Urine 750 700 Other: Voiding Method External Catheter External Catheter - Exam CONSTITUTIONAL: Appears comfortable, cooperative, no acute distress. RESPIRATORY: Lungs sounds diminished throughout bilaterally. Respirations even, nonlabored. Currently on Airvo with FiO2 50% and flow rate 50 with oxygen saturation 95%. Able to achieve 750 mL on incentive spirometry. Strong cough. CARDIOVASCULAR: S1, S2 present. Regular rate and rhythm, V paced rhythm on telemetry heart rate 72 bpm. Palpable peripheral pulses bilaterally. No edema present. No calf pain or tenderness noted. GASTROINTESTINAL: Abdomen soft, nontender, nondistended. Active bowel sounds present 4 quadrants. Tolerating diet. GENITOURINARY: Continues to void clear, yellow urine. INTEGUMENTARY: Skin is warm and dry with evidence of good perfusion. Subclavicular 14-gauge Angiocath in place for blowholes, to her left hodge bclavicular area. NEUROLOGIC: Cranial nerves II through XII intact. No focal deficits. MUSKULOSKELETAL: Able to move all extremities, strength equal bilaterally, generalized weakness. PSYCHIATRIC: Alert and oriented to person place and time, appropriate affect, intact judgment and insight. - Allied health notes Allied health notes reviewed: nursing - Labs CBC & Chem 7: 01/12/25 05:54 01/12/25 05:54 Labs: Abnormal Lab Results - Last 24 Hours (Table) 01/11/25 01/11/25 01/11/25 Range/Units 11:15 16:16 20:34 WBC (4.50-10.00) 10*3/uL RBC (4.10-5.20) 10*6/uL Hgb (12.0-15.0) g/dL Hct (37.2-46.3) % Plt Count (140-440) 10*3/uL Immature Gran # (0.00-0.04) 10*3/uL Neutrophils # (1.80-7.70) 10*3/uL Lymphocytes # (0.90-5.00) 10*3/uL Monocytes # (0.20-1.00) 10*3/uL Sodium (137-145) mmol/L Potassium (3.5-5.1) mmol/L BUN (7-17) mg/dL Glucose (74-99) mg/dL POC Glucose (mg/dL) 345 H 277 H 266 H (70-110) mg/dL ALT (4-34) U/L Alkaline Phosphatase (38-126) U/L Total Protein (6.3-8.2) g/dL Albumin (3.5-5.0) g/dL 01/12/25 01/12/25 01/12/25 Range/Units 02:00 05:54 05:54 WBC 14.40 H (4.50-10.00) 10*3/uL RBC 3.36 L (4.10-5.20) 10*6/uL Hgb 10.1 L (12.0-15.0) g/dL Hct 30.7 L (37.2-46.3) % Plt Count 110 L (140-440) 10*3/uL Immature Gran # 0.09 H (0.00-0.04) 10*3/uL Neutrophils # 13.76 H (1.80-7.70) 10*3/uL Lymphocytes # 0.33 L (0.90-5.00) 10*3/uL Monocytes # 0.16 L (0.20-1.00) 10*3/uL Sodium 130 L (137-145) mmol/L Potassium 5.3 H (3.5-5.1) mmol/L BUN 41 H (7-17) mg/dL Glucose 130 H (74-99) mg/dL POC Glucose (mg/dL) 122 H (70-110) mg/dL ALT 54 H (4-34) U/L Alkaline Phosphatase 132 H (38-126) U/L Total Protein 5.3 L (6.3-8.2) g/dL Albumin 2.7 L (3.5-5.0) g/dL 01/12/25 01/12/25 Range/Units 05:55 07:52 WBC (4.50-10.00) 10*3/uL RBC (4.10-5.20) 10*6/uL Hgb (12.0-15.0) g/dL Hct (37.2-46.3) % Plt Count (140-440) 10*3/uL Immature Gran # (0.00-0.04) 10*3/uL Neutrophils # (1.80-7.70) 10*3/uL Lymphocytes # (0.90-5.00) 10*3/uL Monocytes # (0.20-1.00) 10*3/uL Sodium (137-145) mmol/L Potassium (3.5-5.1) mmol/L BUN (7-17) mg/dL Glucose (74-99) mg/dL POC Glucose (mg/dL) 145 H 220 H (70-110) mg/dL ALT (4-34) U/L Alkaline Phosphatase (38-126) U/L Total Protein (6.3-8.2) g/dL Albumin (3.5-5.0) g/dL Microbiology - Last 24 Hours (Table) 01/09/25 15:00 Blood Culture - Preliminary Blood - Imaging and Cardiology Chest x-ray: report reviewed, image reviewed Assessment and Plan Assessment: Extensive subcutaneous emphysema extending upper chest, neck, face, status post placement of 2 angio cath 14-gauge subclavicular acting as blowhole's Bilateral tiny pneumothoraces, pneumomediastinum found on CT Pneumonia Acute hypoxic respiratory failure secondary to above History of coronary artery disease with previous PCI and CABG Ischemic cardiomyopathy status post AICD placement Hypertension Hyperlipidemia Insulin-dependent diabetes Hypothyroid Plan: Keep left 14-gauge Angiocath in place as blowhole's for at least another 24 hours. Continue to monitor daily chest x-rays. Encourage use of incentive spirometry 10 times every hour while awake. Increase activity as tolerated. Medical management of other comorbidities per internal medicine, pulmonary critical care service, and infectious disease. More recommendations to follow based on patient's clinical course. Time with Patient: Less than 30
[2025-01-12 12:09] LABS: Glucose,Whole Blood 322 mg/dL (70-110)
--- NOTE | 2025-01-12 14:48 | P.PN ---
Subjective Progress Note Date: 01/12/25 Principal diagnosis: Reason for follow-up is a positive blood culture/leukocytosis/thrush Patient is a 74-year-old female with a past medical history significant for Asthma, Blood Disorder, Coronary Artery Disease (CAD), Chest Pain / Angina, Heart Failure, Diabetes Mellitus, Eye Disorder, GERD/Reflux, Hyperlipidemia, Hypertension, Myocardial Infarction ([place]), Musculoskeletal Disorder, Osteoarthritis ([place]), Renal Disease, Skin Disorder, Supraventricular Tachycardia (SVT), Thyroid Disorder who recently did have a right hip replacement, patient presented the hospital with increasing shortness of breath and cough did have a positive blood culture prompting this consultation. On today's evaluation that is 01/12/2025, the patient continues to be afebrile, the patient is on 50% FiO2 and breathing slightly comfortably, the Pt denies having any chest pain or any worsening cough, the patient denies having any abdominal pain no vomiting or any diarrhea mention feeling slightly better. Patient also is 14.40, creatinine 0.69 Objective - Vital Signs Vital signs: Vital Signs Temp 97.7 F 01/12/25 12:00 Pulse 72 01/12/25 12:24 Resp 18 01/12/25 12:00 BP 123/74 01/12/25 12:00 Pulse Ox 96 01/12/25 12:17 FiO2 50 01/12/25 12:17 Intake & Output 01/11/25 01/12/25 01/12/25 18:59 06:59 18:59 Intake Total 480 120 318 Output Total 750 700 Balance -270 -580 318 Weight 83.5 kg Intake: Oral 480 120 318 Output: Urine 750 700 Other: Voiding Method External Catheter External Catheter External Catheter - Exam GENERAL DESCRIPTION: An elderly female up in the bed in no distress RESPIRATORY SYSTEM: Unlabored breathing , decreased breath sounds at bases HEART: S1 S2 regular rate and rhythm , ABDOMEN: Soft , no tenderness EXTREMITIES: No edema feet - Labs CBC & Chem 7: 01/12/25 05:54 01/12/25 05:54 Labs: Abnormal Lab Results - Last 24 Hours (Table) 01/11/25 01/11/25 01/12/25 Range/Units 16:16 20:34 02:00 WBC (4.50-10.00) 10*3/uL RBC (4.10-5.20) 10*6/uL Hgb (12.0-15.0) g/dL Hct (37.2-46.3) % Plt Count (140-440) 10*3/uL Immature Gran # (0.00-0.04) 10*3/uL Neutrophils # (1.80-7.70) 10*3/uL Lymphocytes # (0.90-5.00) 10*3/uL Monocytes # (0.20-1.00) 10*3/uL Sodium (137-145) mmol/L Potassium (3.5-5.1) mmol/L BUN (7-17) mg/dL Glucose (74-99) mg/dL POC Glucose (mg/dL) 277 H 266 H 122 H (70-110) mg/dL ALT (4-34) U/L Alkaline Phosphatase (38-126) U/L Total Protein (6.3-8.2) g/dL Albumin (3.5-5.0) g/dL 01/12/25 01/12/25 01/12/25 Range/Units 05:54 05:54 05:55 WBC 14.40 H (4.50-10.00) 10*3/uL RBC 3.36 L (4.10-5.20) 10*6/uL Hgb 10.1 L (12.0-15.0) g/dL Hct 30.7 L (37.2-46.3) % Plt Count 110 L (140-440) 10*3/uL Immature Gran # 0.09 H (0.00-0.04) 10*3/uL Neutrophils # 13.76 H (1.80-7.70) 10*3/uL Lymphocytes # 0.33 L (0.90-5.00) 10*3/uL Monocytes # 0.16 L (0.20-1.00) 10*3/uL Sodium 130 L (137-145) mmol/L Potassium 5.3 H (3.5-5.1) mmol/L BUN 41 H (7-17) mg/dL Glucose 130 H (74-99) mg/dL POC Glucose (mg/dL) 145 H (70-110) mg/dL ALT 54 H (4-34) U/L Alkaline Phosphatase 132 H (38-126) U/L Total Protein 5.3 L (6.3-8.2) g/dL Albumin 2.7 L (3.5-5.0) g/dL 01/12/25 01/12/25 Range/Units 07:52 12:07 WBC (4.50-10.00) 10*3/uL RBC (4.10-5.20) 10*6/uL Hgb (12.0-15.0) g/dL Hct (37.2-46.3) % Plt Count (140-440) 10*3/uL Immature Gran # (0.00-0.04) 10*3/uL Neutrophils # (1.80-7.70) 10*3/uL Lymphocytes # (0.90-5.00) 10*3/uL Monocytes # (0.20-1.00) 10*3/uL Sodium (137-145) mmol/L Potassium (3.5-5.1) mmol/L BUN (7-17) mg/dL Glucose (74-99) mg/dL POC Glucose (mg/dL) 220 H 322 H (70-110) mg/dL ALT (4-34) U/L Alkaline Phosphatase (38-126) U/L Total Protein (6.3-8.2) g/dL Albumin (3.5-5.0) g/dL Microbiology - Last 24 Hours (Table) 01/09/25 15:00 Blood Culture - Preliminary Blood Assessment and Plan (1) Positive blood culture Current Visit: Yes Status: Acute Code(s): R78.81 - BACTEREMIA SNOMED Code(s): 275228712 (2) Leukocytosis Current Visit: Yes Status: Acute Code(s): D72.829 - ELEVATED WHITE BLOOD CELL COUNT, UNSPECIFIED SNOMED Code(s): 908994255 (3) Oropharyngeal candidiasis Current Visit: Yes Status: Acute Code(s): B37.0 - CANDIDAL STOMATITIS SNOMED Code(s): 50062733 Plan: 1patient with a positive blood culture with staph epi which is more likely skin contamination this patient who recently did have a right hip replacement however the right hip surgical site incision is currently healed with no cellulitis and the patient denies having any pain to the right hip area, no need for vancomycin however blood culture has been repeated which has been negative 2the patient has developed significant subcutaneous emphysema patient is status post placement of below holes to try to relieve the subcutaneous emphysema with a 14-gauge Angiocath by CT surgery and patient did have clinical improvement. 3-patient is afebrile patient white count is down to 14,000, patient to continue nystatin swish and swallow and Diflucan Dictation was produced using [employer] dictation software. please excuse any grammatical, word or spelling errors. Time with Patient: Less than 30
--- NOTE | 2025-01-12 15:47 | P.PN ---
Subjective Progress Note Date: 01/12/25 Patient is a 75-year-old female with past medical history significant for hypertension, hyperlipidemia, insulin-dependent diabetes mellitus, obesity, coronary artery disease with previous CABG, ischemic cardiomyopathy with an ejection fraction of 25 to 30% with AICD, asthma, and osteoarthritis. Of note, patient recently underwent right direct anterior total hip arthroplasty on 11/24/2024. She was discharged from the hospital to [facility] for rehabilitation. While at the outside facility, developed shortness of breath, coughing, and generalized weakness. States she was released from [facility] to home last Wednesday on November. Since then, she has fallen twice while at home. Brought in by EMS yesterday evening hypoxic and confused. She was placed on supplemental oxygen. Workup in the emergency department including a chest x-ray showing patchy bilateral lung infiltrates concerning for congestive heart failure or atypical pneumonias. CBC: WBC count 14.7, hemoglobin 9.5 g/dL, platelets 374. BMP: Sodium 132, potassium 4.4, chloride 100, serum bicarb 23, BUN 16, creatinine 0.92, glucose 124. Lactic 1.8. LFTs unremarkable. Troponin less than 0.012. NT proBNP 6.74. Viral 4 Plex negative for influenza A/B, RSV, COVID. Urinalysis unremarkable for UTI. Patient currently being evaluated on the general medical floor. She is alert and oriented x 3. Endorses above menti oned complaints. Does report history of asthma. Has had increased work of breathing over the last couple weeks. Suffering from persistent nonproductive cough over the same timeframe. States her symptoms actually started at [facility]. She has had a poor appetite with occasional nausea and vomiting. She has been able to take some of her home medications. Has had intermittent fevers with a Tmax of 100.8 F. Was started on empiric antibiotics in the ED, in the form azithromycin and Rocephin. Normal saline infusing at 50 mL/h. Denies any chest pain. Does endorse unilateral right lower lower extremity edema. No heart palpitations, syncopal events, hemoptysis. Current vital signs: Temperature 100.8 F, heart rate 95 bpm, blood pressure 124/54 mmHg, nontachypneic, SpO2 recorded at 96% on 3 L/min nasal cannula. The patient is seen today December 20, 2024 and follow-up on the regular medical floor. She is currently sitting up in bed. Awake and alert in no acute distress. Feeling a bit better today compared to yesterday. Maintaining O2 saturations in the 90s on 3 L/min per nasal cannula. Chest x-ray shows continued infiltrate of the right lung with improvement in the left lung. Blood culture is coming back positive. ID pending. White count 15.9. Hemoglobin 9.3. Platelets 371. Sodium 139. Potassium 4.2. Bicarb 27. BUN 16. Creatinine 1.01. Glucose 133. She remains on DuoNeb inhalations, IV Solu- Medrol, IV diuretics. Lovenox for DVT prophylaxis. Antibiotics in the form of ceftriaxone. The patient is seen today December 21, 2024 in follow-up on the regular medical floor. She is currently sitting up in a chair. Awake and alert in no acute distress. Maintaining O2 saturations in the 90s on 3 L/min per nasal cannula. She has been afebrile. Hemodynamically stable. Blood cultures showing staph epidermidis, most likely contaminant. White count 21.1. Hemoglobin 9.0. Platelets 409. Sodium 137. Potassium 4.5. Bicarb 30. BUN 29. Creatinine 1. 28. Glucose 172. proBNP 2180. She remains on DuoNeb inhalations, Solu-Medrol. Antibiotics in the form of ceftriaxone. Lovenox for DVT prophylaxis. Remains on IV diuretics. No accurate intake and output recorded. Chest x-ray showing similar findings with basilar infiltrates right greater than left. The patient is seen today December 22, 2024 in follow-up on the regular medical floor. She is sitting up at the bedside. Awake and alert in no acute distress. She has been slow to progress. She is still dyspneic with minimal exertion. Dyspneic with conversation. She is maintaining O2 saturations in the 90s on 7 L high flow nasal cannula. Echocardiogram reveals impaired left ventricular systolic function with an ejection fraction [address] scan of the chest revealed marked diffuse scattered groundglass opacities consistent with pulmonary edema, ARDS or pneumonia. AICD in place. Blood culture positive for Staphylococcus epidermidis. White count 17.9. Hemoglobin 9.4. Platelets 386. Sodium 136. Potassium 4.7. Bicarb 28. BUN 37. Creatinine 1.06. Glucose 176. She remains on DuoNeb inhalations, Solu-Medrol. Remains on oral diuretics. Antibiotics in the form of ceftriaxone. Heparin for DVT prophylaxis. The patient is seen today December 23, 2024 in follow-up on the regular medical floor. She is currently resting in bed. Awake and alert in no acute distress. Feeling a bit better today compared to yesterday. She is maintaining O2 saturations in the 90s on 6 L high flow nasal cannula. She remains afebrile. Hemodynamically stable. Initial blood cultures showing staph epidermidis. Follow-up blood culture reveals no growth. White count 17.6. Hemoglobin 9.2. Platelets 381. Sodium 138. Potassium 4.4. Bicarb 28. BUN 45. Creatinine 1.11. Glucose 115. Arterial blood gases on 44% FiO2 revealed a PO2 of 50, QUA175 and a pH of 7.42. She remains on DuoNeb inhalations, Solu-Medrol and Robitussin as needed. Heparin for DVT prophylaxis. She remains on Lasix 40 mg every 12 hours. No accurate intake and output recorded. The patient is seen today December 24, 2024 in follow-up on the regular medical floor. She is awake and alert in no acute distress. Resting in bed. No worsening shortness of breath, cough or congestion. She is still requiring 10 L high flow nasal cannula to maintain O2 saturations in the 90s. Lung sounds improved. Blood cultures were positive for Staphylococcus epidermidis. Most likely a contaminant. Follow-up blood culture revealed no growth. Glucose 233. She remains on DuoNeb inhalations, Symbicort, Solu-Medrol. She remains on IV Lasix. Heparin for DVT prophylaxis. Currently in a -1.9 L balance. The patient is seen today December 25, 2024 in follow-up in the intensive care unit. She was transferred down here last evening after having issues with worsening hypoxemia. She is currently on Airvo high flow oxygen at 50 L and 50% FiO2. She is afebrile. Hemodynamically stable. Chest x-ray continues to show cardiomegaly with pulmonary vascular congestion and bilateral pleural effusions. Follow-up blood culture revealed no growth. White count 17.9. Hemoglobin 9.7. Platelets 350. Sodium 137. Potassium 4.8. Bicarb 31. BUN 49. Creatinine 1.16. Glucose 224. She remains on DuoNeb inhalations, Symbicort, Solu-Medrol. Heparin for DVT prophylaxis. She remains on Lasix 40 mg IV every 12 hours. C urrently in a -4 L balance. The patient is seen today December 26, 2024 in follow-up in the intensive care unit. She is currently sitting up in bed. Awake and alert in no acute distress. Feeling a bit better today compared to yesterday. She is still high flow oxygen at 50 L and 60% FiO2. No IV fluids. She has been afebrile. Hemodynamically stable. Chest x-ray continues to show diffuse infiltrates bilaterally right greater than left. Follow-up blood culture reveals no growth. White count 1 9.5. Hemoglobin 10.0. Platelets 359. Sodium 137. Potassium 4.2. Bicarb 33. BUN 54. Creatinine 1.07. Glucose 280. Continued on Lasix 40 mg IV every 12 hours. Currently net -3.3 L balance. She remains on DuoNeb and elations, Symbicort, Solu-Medrol. Robitussin for her cough. The patient is seen today December 28, 2024 in follow-up in the intensive care unit. She is awake and alert in no acute distress. Sitting up in bed. Remains on Airvo high flow oxygen at 50 L and 50% FiO2. No IV fluids. Chest x-ray is showing fluid volume overload but improving. Initial blood culture positive for staph epidermidis. Follow-up blood culture revealed no growth. White count 19.6. Hemoglobin 10.4. Platelets 352. Sodium 134. Potassium 4.0. Bicarb 33. BUN 66. Creatinine 1.12. Glucose 205. She is continued on DuoNeb inhalations, Symbicort, Solu-Medrol. Heparin for DVT prophylaxis. She remains on Lasix 40 mg IV every 12 hours. Currently in a -700 mL balance. The patient is seen today December 29, 2024 in follow-up in the intensive care unit. She is currently sitting up in bed. Awake and alert in no acute distress. Deny any worsening shortness of breath, cough or congestion. Feeling better. She is now on 8 L high flow nasal cannula. Chest x-ray continues to show improvement. White count 26.0. Hemoglobin 10.7. Platelets 352. Sodium 136. Potassium 4.3. Bicarb 34. BUN 63. Creatinine 1.11. Glucose 185. She remains on DuoNeb inhalations, Symbicort, Solu-Medrol. Heparin for DVT prophylaxis. Continued on Lasix 40 mg every 12 hours. Currently in a -700 mL balance. The patient is seen today January 08, 2025 in follow-up on the selective care unit. She is currently sitting up in bed. Awake and alert in no acute distress. She had developed extensive subcutaneous emphysema for chest and neck and face. She remains on Airvo high flow oxygen at 50 L and 45% FiO2. Chest x-ray shows similar small bilateral pneumothoraces. Similar pneumomediastinum. Similar diffuse subcutaneous emphysema. Patchy scattered airspace opacity within the lungs suggesting pulmonary edema and/or ARDS. Follow-up blood culture revealed no growth. White count 16.7. Hemoglobin 10.5. Platelets 165. Sodium 134. Potassium 4.6. Bicarb 25. BUN 36. Creatinine 0.77. Glucose 134. She remains on DuoNeb inhalations, Symbicort, Solu-Medrol. Heparin for DVT prophylaxis. Remains on diuretics. Remains on cefepime. The patient is seen today January 09, 2025 in follow-up on the selective care unit. She is awake and alert in no acute distress. Sitting up in bed. Her subcutane ous emphysema is worsening. Her eyes are swollen shut now. CT services are planning to place blow holes today. She remains on Airvo high flow oxygen at 50 L and 45% FiO2. Chest x-ray continues to show similar small bilateral pneumothoraces. Similar pneumomediastinum. Similar diffuse subcutaneous emphysema. Patchy scattered airspace opacities within the lung suggesting pulmonary edema and/or ARDS. Follow-up blood culture revealed no growth. White count 17.3. Hemoglobin 10.7. Platelets 160. Sodium 135. Potassium 4.5. Bicarb 23. BUN 39. Creatinine 0.78. Glucose 193. She remains on DuoNeb and elations, Symbicort, Solu-Medrol. Heparin for DVT prophylaxis. Remains on oral diuretics. Remains on cefepime and Diflucan. The patient is seen today January 10, 2025 in follow-up on the selective care unit. She is currently sitting up in bed. Awake and alert in no acute distress. D oing better today compared to yesterday. She did have two blow hole's placed. Her subcutaneous emphysema has improved. She is able to open her eyes. No worsening shortness of breath, cough or congestion. Continued on Airvo high flow oxygen at 50 L and 44% FiO2. She remains on DuoNeb inhalations, Symbicort, IV Solu-Medrol. Heparin for DVT prophylaxis. Remains on oral diuretics. Remains on cefepime. Chest x-ray shows similar small bilateral pneumothoraces. Similar pneumomediastinum. Similar diffuse subcutaneous emphysema. Patchy scattered airspace opacities bilaterally. White count 16.3. Hemoglobin 10.9. Platelets 142. Sodium 133. Potassium 5.2. Bicarb 24. BUN 40. Creatinine 0.65. Glucose 140. The patient is seen today January 11, 2025 in follow-up on the selective care unit. She is currently awake and alert in no acute distress. Sitting up in bed. Still showing improvement in the subcutaneous emphysema. She is maintaining O2 saturations in the 90s on Airvo high flow oxygen at 50 L and 55% FiO2. She has been afebrile. Hemodynamically stable. Chest x-ray continues to show similar small bilateral pneumothoraces with similar pneumomediastinum. Similar diffuse subcutaneous emphysema. Patchy scattered airspace opacities continue. Initial blood culture showing Staphylococcus epidermidis. Follow-up blood cultures x 2 revealed no growth. White count 15.7. Hemoglobin 10.2. Platelets 121. Sodium 130. Potassium 5.2. Bicarb 23. BUN 45. Creatinine 0.75. Glucose 324. She remains on DuoNeb inhalations, Symbicort, Solu-Medrol. Heparin for DVT prophyla xis. Remains on cefepime. Remains on diuretics. The patient is seen today January 12, 2025 in follow-up on the selective care unit. She is currently sitting up in bed. Awake and alert in no acute distress. Feeling better today compared to yesterday. She has less subcutaneous emphysema. Denies any worsening shortness of breath, cough or congestion. She remains on Airvo high flow oxygen at 50 L and 50% FiO2. She is continued on DuoNeb inhalations, Symbicort, Solu-Medrol. Remains on oral diuretics. Remains on cefepime. Remains on Diflucan. Heparin for DVT prophylaxis. Follow-up blood cultures revealed no growth. White count 14.4. Hemoglobin 10.1. Platelets 110. Sodium 130. Potassium 5.3. Bicarb 26. BUN 41. Creatinine 0.69. Glucose 145. Today's chest x-ray is showing similar small bilateral pneumothoraces. Similar pneumomediastinum. Similar diffuse subcutaneous emphysema. Some improvement in the patchy scattered airspace opacities. Objective - Vital Signs Vital signs: Vital Signs Temp 97.7 F 01/12/25 12:00 Pulse 72 01/12/25 12:24 Resp 18 01/12/25 12:00 BP 123/74 01/12/25 12:00 Pulse Ox 96 01/12/25 12:17 FiO2 50 01/12/25 12:17 Intake & Output 01/11/25 01/12/25 01/12/25 18:59 06:59 18:59 Intake Total 480 120 318 Output Total 750 700 Balance -270 -580 318 Weight 83.5 kg Intake: Oral 480 120 318 Output: Urine 750 700 Other: Voiding Method External Catheter External Catheter External Catheter - Exam GENERAL EXAM: Alert, 74-year-old female, sitting up in bed, on Airvo high flow oxygen at 50 L and 50% FiO2, in no acute distress. HEAD: Evidence of improving subcutaneous emphysema over face EYES: Eyes less swollen from subcutaneous emphysema NOSE: Clear with pink turbinates. THROAT: No erythema or exudates. NECK: No masses, no JVD. CHEST: Extensive subcutaneous emphysema. Left chest implanted device. One blow hole in place. LUNGS: Equal air entry crackles in the posterior bases right greater than left. CVS: S1 and S2 normal with no audible murmur, regular rhythm. No extra heart sounds ABDOMEN: No hepatosplenomegaly, active bowel sounds, no guarding or rigidity. SPINE: No scoliosis or deformity SKIN: No rashes CENTRAL NERVOUS SYSTEM: No focal deficits, tone is normal in all 4 extremities. EXTREMITIES: Right anterior hip incision is approximated. Full range of motion. Right lower extremity pitting edema. Peripheral pulses are intact. - Labs CBC & Chem 7: 01/12/25 05:54 01/12/25 05:54 Labs: Abnormal Lab Results - Last 24 Hours (Table) 01/11/25 01/11/25 01/12/25 Range/Units 16:16 20:34 02:00 WBC (4.50-10.00) 10*3/uL RBC (4.10-5.20) 10*6/uL Hgb (12.0-15.0) g/dL Hct (37.2-46.3) % Plt Count (140-440) 10*3/uL Immature Gran # (0.00-0.04) 10*3/uL Neutrophils # (1.80-7.70) 10*3/uL Lymphocytes # (0.90-5.00) 10*3/uL Monocytes # (0.20-1.00) 10*3/uL Sodium (137-145) mmol/L Potassium (3.5-5.1) mmol/L BUN (7-17) mg/dL Glucose (74-99) mg/dL POC Glucose (mg/dL) 277 H 266 H 122 H (70-110) mg/dL ALT (4-34) U/L Alkaline Phosphatase (38-126) U/L Total Protein (6.3-8.2) g/dL Albumin (3.5-5.0) g/dL 01/12/25 01/12/25 01/12/25 Range/Units 05:54 05:54 05:55 WBC 14.40 H (4.50-10.00) 10*3/uL RBC 3.36 L (4.10-5.20) 10*6/uL Hgb 10.1 L (12.0-15.0) g/dL Hct 30.7 L (37.2-46.3) % Plt Count 110 L (140-440) 10*3/uL Immature Gran # 0.09 H (0.00-0.04) 10*3/uL Neutrophils # 13.76 H (1.80-7.70) 10*3/uL Lymphocytes # 0.33 L (0.90-5.00) 10*3/uL Monocytes # 0.16 L (0.20-1.00) 10*3/uL Sodium 130 L (137-145) mmol/L Potassium 5.3 H (3.5-5.1) mmol/L BUN 41 H (7-17) mg/dL Glucose 130 H (74-99) mg/dL POC Glucose (mg/dL) 145 H (70-110) mg/dL ALT 54 H (4-34) U/L Alkaline Phosphatase 132 H (38-126) U/L Total Protein 5.3 L (6.3-8.2) g/dL Albumin 2.7 L (3.5-5.0) g/dL 01/12/25 01/12/25 Range/Units 07:52 12:07 WBC (4.50-10.00) 10*3/uL RBC (4.10-5.20) 10*6/uL Hgb (12.0-15.0) g/dL Hct (37.2-46.3) % Plt Count (140-440) 10*3/uL Immature Gran # (0.00-0.04) 10*3/uL Neutrophils # (1.80-7.70) 10*3/uL Lymphocytes # (0.90-5.00) 10*3/uL Monocytes # (0.20-1.00) 10*3/uL Sodium (137-145) mmol/L Potassium (3.5-5.1) mmol/L BUN (7-17) mg/dL Glucose (74-99) mg/dL POC Glucose (mg/dL) 220 H 322 H (70-110) mg/dL ALT (4-34) U/L Alkaline Phosphatase (38-126) U/L Total Protein (6.3-8.2) g/dL Albumin (3.5-5.0) g/dL Microbiology - Last 24 Hours (Table) 01/09/25 15:00 Blood Culture - Preliminary Blood Assessment and Plan Assessment: Acute hypoxemic respiratory failure with CT scan of the chest reveals marked diffuse scattered groundglass opacities consistent with pulmonary edema, ARDS or pneumonia. Moderate cardiomegaly. Procalcitonin negative x 2.The CAT scan of the chest was also consistent with ARDS with secondary complications of bilateral minimal pneumothoraces, pneumomediastinum and subcutaneous emphysema. The patient is currently on IV Solu-Medrol. CHF seems to be quite well optimized and the patient's most recent echocardiogram showed an ejection fraction of 40 to 45%. The patient is also on empiric antibiotic coverage. Cefepime. Chest x-ray findings showing worsening of subcutaneous emphysema. Nevertheless, there is no worsening in the pneumothorax or oxygenation. Remains on Airvo high flow oxygen at 50 L and 55% FiO2. Tiny bilateral pneumothoraces Pneumomediastinum Extensive subcutaneous emphysema secondary to above Acute febrile illness, recovered Acute leukocytosis, improving History of right direct anterior total hip arthroplasty on November 24 Acute blood loss anemia, expected outcome of surgery Hypertension History of hyperlipidemia Insulin-dependent diabetes mellitus Obesity with a BMI of 35.4 kg/m Coronary artery disease, with history of CABG and cardiac stents History of ischemic cardiomyopathy with an ejection fraction improved to 40 to 45% Implanted AICD/pacemaker Hypothyroidism Anxiety/depression Poor overall functional performance based on the above-mentioned multiple comorbidities Plan: The patient was seen and evaluated Chest x-ray, labs and medications reviewed Improved subcutaneous emphysema Currently on Airvo high flow oxygen We will try to switch to high flow nasal cannula Continue cefepime Continue Solu-Medrol Continue Lasix Continue DuoNeb inhalations Continue Symbicort Heparin for DVT prophylaxis Titrate down the FiO2 as tolerated Increase her activity as tolerated Plan is possibly for select specialty at discharge I have personally seen and examined the patient, performed the documentation and the assessment and plan as written. Number of minutes spent on the visit: 10 Dictation was produced using [employer] dictation software. Please excuse any grammatical, word or spelling errors.
[2025-01-12 17:00] LABS: Glucose,Whole Blood 402 mg/dL (70-110)
[2025-01-12 19:51] LABS: Glucose,Whole Blood 371 mg/dL (70-110)
--- NOTE | 2025-01-13 01:38 | PN ---
PROGRESS NOTE DATE OF SERVICE: 01/12/2025 SUBJECTIVE: This is a 74-year-old woman, admitted with acute hypoxic respiratory failure, also had extensive subcutaneous emphysema after blowholes insertion. The patient is improving significantly. No chest pain. No palpitations. Still on AIRVO. OBJECTIVE: VITAL SIGNS: Pulse 72, blood pressure 120/79, respirations 16. CHEST: A few scattered rhonchi and crackles. ABDOMEN: Soft. EXTREMITIES: Legs, no edema. NERVOUS SYSTEM: No focal deficits. SKIN: Extensive subcutaneous emphysema present. LABORATORY DATA: WBC 14.4. Rest of the labs are noted. ASSESSMENT: 1. Acute hypoxic respiratory failure, secondary to acute respiratory distress syndrome and spontaneous pneumothorax with extensive subcutaneous emphysema, status post blowholes placement and Angiocath. 2. Ischemic cardiomyopathy history. 3. Diabetes mellitus, type 2, uncontrolled with hyperglycemia. 4. Elevated WBC. 5. Possible bilateral pneumonia, present on admission. 6. History of congestive heart failure. 7. Hypertension. 8. Hyperlipidemia. 9. Multiple complex medical issues. RECOMMENDATIONS: Recommend to continue current management and symptomatic treatment. Otherwise, blood sugar is fluctuating at this time. Recommend to continue symptomatic treatment. The patient is on insulin 25 t.i.d. short-acting and 40 b.i.d. long-acting. We will continue current care. Repeat labs in the morning. Make further adjustments in the insulin depending upon the blood sugar levels. Further recommendations to follow. MMILYAL / JAQUANN: [id number] /
[2025-01-13 02:14] LABS: Glucose,Whole Blood 165 mg/dL (70-110)
[2025-01-13 06:44] LABS: Glucose,Whole Blood 53 mg/dL (70-110)
[2025-01-13 07:04] LABS: Glucose,Whole Blood 71 mg/dL (70-110)
[2025-01-13 07:21] LABS: Basophils # (A) 0.03 10*3/uL (0.00-0.10); Basophils % (A) 0.2 %; Eosinophils # (A) 1.37 10*3/uL (0.04-0.35); Eosinophils % (A) 8.1 %; HCT 30.4 % (37.2-46.3); HGB 9.7 g/dL (12.0-15.0); Lymphocytes # (A) 1.13 10*3/uL (0.90-5.00); Lymphocytes % (A) 6.7 %; MCH 29.2 pg (27.0-32.0); MCHC 31.9 g/dL (32.0-37.0); MCV 91.6 fL (80.0-97.0); Monocytes # (A) 0.29 10*3/uL (0.20-1.00); Monocytes % (A) 1.7 %; Neutrophils # (A) 13.84 10*3/uL (1.80-7.70); Neutrophils % (A) 82.3 %; Platelet Count 122 10*3/uL (140-440); RBC 3.32 10*6/uL (4.10-5.20); RDW 16.1 % (11.5-14.5); WBC 16.82 10*3/uL (4.50-10.00)
--- NOTE | 2025-01-13 07:43 | XR ---
EXAMINATION TYPE: XR chest 1V portable DATE OF EXAM: 01/13/2025 5:15 AM COMPARISON: Chest radiograph from one day prior. TECHNIQUE: XR chest 1V portable Portable AP radiograph of the chest. CLINICAL INDICATION:Female, 74 years old with history of Subcu emphysema; FINDINGS: Lungs/Pleura: Similar small bilateral pneumothoraces. Scattered airspace opacities throughout the mao gs again. No pleural effusion. Pulmonary vascularity: Unremarkable. Heart/mediastinum: Cardiomediastinal silhouette is enlarged. Pneumomediastinum redemonstrated. Three lead cardiac conduction device overlying the left hemithorax with lead tips projecting over the right ventricle, right atrium and coronary sinus. Musculoskeletal: No acute osseous pathology. Midline sternotomy wires are noted. Other findings: Similar diffuse subcutaneous emphysema scattered throughout the visualized thorax and visualized neck. IMPRESSION: 1. Similar small bilateral pneumothoraces. 2. Similar pneumomediastinum. 3. Similar diffuse subcutaneous emphysema. 4. Patchy scattered airspace opacities within the lungs suggesting pulmonary edema and/or ARDS. [facility], , 01/13/2025 7:41 AM
[2025-01-13 07:55] LABS: African American GFR (CKD) 83 (>60 ml/min/1.73 sqM); Anion Gap 5 mmol/L; Blood Urea Nitrogen 44 mg/dL (7-17); Calcium 10.0 mg/dL (8.4-10.2); Carbon Dioxide 26 mmol/L (22-30); Chloride 102 mmol/L (98-107); Non-African American GFR(CKD) 72 (>60 ml/min/1.73 sqM); Potassium 4.8 mmol/L (3.5-5.1); Sodium 133 mmol/L (137-145)
[2025-01-13 07:59] LABS: Glucose 46 mg/dL (74-99)
[2025-01-13 08:04] LABS: Glucose,Whole Blood 69 mg/dL (70-110)
[2025-01-13] MEDS: DEXTROSE 50% SYRINGE 50 ML IVP PRN (08:09)
[2025-01-13 08:23] LABS: Glucose,Whole Blood 177 mg/dL (70-110)
[2025-01-13] MEDS: DOCUSATE 100 MG CAP PO PRN (10:04)
[2025-01-13 12:16] LABS: Glucose,Whole Blood 119 mg/dL (70-110)
--- NOTE | 2025-01-13 12:17 | P.PN ---
Subjective Progress Note Date: 01/13/25 Patient is a 75-year-old female with past medical history significant for hypertension, hyperlipidemia, insulin-dependent diabetes mellitus, obesity, coronary artery disease with previous CABG, ischemic cardiomyopathy with an ejection fraction of 25 to 30% with AICD, asthma, and osteoarthritis. Of note, patient recently underwent right direct anterior total hip arthroplasty on 11/24/2024. She was discharged from the hospital to [facility] for rehabilitation. While at the outside facility, developed shortness of breath, coughing, and generalized weakness. States she was released from [facility] to home last Wednesday on November. Since then, she has fallen twice while at home. Brought in by EMS yesterday evening hypoxic and confused. She was placed on supplemental oxygen. Workup in the emergency department including a chest x-ray showing patchy bilateral lung infiltrates concerning for congestive heart failure or atypical pneumonias. CBC: WBC count 14.7, hemoglobin 9.5 g/dL, platelets 374. BMP: Sodium 132, potassium 4.4, chloride 100, serum bicarb 23, BUN 16, creatinine 0.92, glucose 124. Lactic 1.8. LFTs unremarkable. Troponin less than 0.012. NT proBNP 6.74. Viral 4 Plex negative for influenza A/B, RSV, COVID. Urinalysis unremarkable for UTI. Patient currently being evaluated on the general medical floor. She is alert and oriented x 3. Endorses above menti oned complaints. Does report history of asthma. Has had increased work of breathing over the last couple weeks. Suffering from persistent nonproductive cough over the same timeframe. States her symptoms actually started at [facility]. She has had a poor appetite with occasional nausea and vomiting. She has been able to take some of her home medications. Has had intermittent fevers with a Tmax of 100.8 F. Was started on empiric antibiotics in the ED, in the form azithromycin and Rocephin. Normal saline infusing at 50 mL/h. Denies any chest pain. Does endorse unilateral right lower lower extremity edema. No heart palpitations, syncopal events, hemoptysis. Current vital signs: Temperature 100.8 F, heart rate 95 bpm, blood pressure 124/54 mmHg, nontachypneic, SpO2 recorded at 96% on 3 L/min nasal cannula. The patient is seen today December 20, 2024 and follow-up on the regular medical floor. She is currently sitting up in bed. Awake and alert in no acute distress. Feeling a bit better today compared to yesterday. Maintaining O2 saturations in the 90s on 3 L/min per nasal cannula. Chest x-ray shows continued infiltrate of the right lung with improvement in the left lung. Blood culture is coming back positive. ID pending. White count 15.9. Hemoglobin 9.3. Platelets 371. Sodium 139. Potassium 4.2. Bicarb 27. BUN 16. Creatinine 1.01. Glucose 133. She remains on DuoNeb inhalations, IV Solu- Medrol, IV diuretics. Lovenox for DVT prophylaxis. Antibiotics in the form of ceftriaxone. The patient is seen today December 21, 2024 in follow-up on the regular medical floor. She is currently sitting up in a chair. Awake and alert in no acute distress. Maintaining O2 saturations in the 90s on 3 L/min per nasal cannula. She has been afebrile. Hemodynamically stable. Blood cultures showing staph epidermidis, most likely contaminant. White count 21.1. Hemoglobin 9.0. Platelets 409. Sodium 137. Potassium 4.5. Bicarb 30. BUN 29. Creatinine 1. 28. Glucose 172. proBNP 2180. She remains on DuoNeb inhalations, Solu-Medrol. Antibiotics in the form of ceftriaxone. Lovenox for DVT prophylaxis. Remains on IV diuretics. No accurate intake and output recorded. Chest x-ray showing similar findings with basilar infiltrates right greater than left. The patient is seen today December 22, 2024 in follow-up on the regular medical floor. She is sitting up at the bedside. Awake and alert in no acute distress. She has been slow to progress. She is still dyspneic with minimal exertion. Dyspneic with conversation. She is maintaining O2 saturations in the 90s on 7 L high flow nasal cannula. Echocardiogram reveals impaired left ventricular systolic function with an ejection fraction [address] scan of the chest revealed marked diffuse scattered groundglass opacities consistent with pulmonary edema, ARDS or pneumonia. AICD in place. Blood culture positive for Staphylococcus epidermidis. White count 17.9. Hemoglobin 9.4. Platelets 386. Sodium 136. Potassium 4.7. Bicarb 28. BUN 37. Creatinine 1.06. Glucose 176. She remains on DuoNeb inhalations, Solu-Medrol. Remains on oral diuretics. Antibiotics in the form of ceftriaxone. Heparin for DVT prophylaxis. The patient is seen today December 23, 2024 in follow-up on the regular medical floor. She is currently resting in bed. Awake and alert in no acute distress. Feeling a bit better today compared to yesterday. She is maintaining O2 saturations in the 90s on 6 L high flow nasal cannula. She remains afebrile. Hemodynamically stable. Initial blood cultures showing staph epidermidis. Follow-up blood culture reveals no growth. White count 17.6. Hemoglobin 9.2. Platelets 381. Sodium 138. Potassium 4.4. Bicarb 28. BUN 45. Creatinine 1.11. Glucose 115. Arterial blood gases on 44% FiO2 revealed a PO2 of 50, [id number] and a pH of 7.42. She remains on DuoNeb inhalations, Solu-Medrol and Robitussin as needed. Heparin for DVT prophylaxis. She remains on Lasix 40 mg every 12 hours. No accurate intake and output recorded. The patient is seen today December 24, 2024 in follow-up on the regular medical floor. She is awake and alert in no acute distress. Resting in bed. No worsening shortness of breath, cough or congestion. She is still requiring 10 L high flow nasal cannula to maintain O2 saturations in the 90s. Lung sounds improved. Blood cultures were positive for Staphylococcus epidermidis. Most likely a contaminant. Follow-up blood culture revealed no growth. Glucose 233. She remains on DuoNeb inhalations, Symbicort, Solu-Medrol. She remains on IV Lasix. Heparin for DVT prophylaxis. Currently in a -1.9 L balance. The patient is seen today December 25, 2024 in follow-up in the intensive care unit. She was transferred down here last evening after having issues with worsening hypoxemia. She is currently on Airvo high flow oxygen at 50 L and 50% FiO2. She is afebrile. Hemodynamically stable. Chest x-ray continues to show cardiomegaly with pulmonary vascular congestion and bilateral pleural effusions. Follow-up blood culture revealed no growth. White count 17.9. Hemoglobin 9.7. Platelets 350. Sodium 137. Potassium 4.8. Bicarb 31. BUN 49. Creatinine 1.16. Glucose 224. She remains on DuoNeb inhalations, Symbicort, Solu-Medrol. Heparin for DVT prophylaxis. She remains on Lasix 40 mg IV every 12 hours. C urrently in a -4 L balance. The patient is seen today December 26, 2024 in follow-up in the intensive care unit. She is currently sitting up in bed. Awake and alert in no acute distress. Feeling a bit better today compared to yesterday. She is still high flow oxygen at 50 L and 60% FiO2. No IV fluids. She has been afebrile. Hemodynamically stable. Chest x-ray continues to show diffuse infiltrates bilaterally right greater than left. Follow-up blood culture reveals no growth. White count 1 9.5. Hemoglobin 10.0. Platelets 359. Sodium 137. Potassium 4.2. Bicarb 33. BUN 54. Creatinine 1.07. Glucose 280. Continued on Lasix 40 mg IV every 12 hours. Currently net -3.3 L balance. She remains on DuoNeb and elations, Symbicort, Solu-Medrol. Robitussin for her cough. The patient is seen today December 28, 2024 in follow-up in the intensive care unit. She is awake and alert in no acute distress. Sitting up in bed. Remains on Airvo high flow oxygen at 50 L and 50% FiO2. No IV fluids. Chest x-ray is showing fluid volume overload but improving. Initial blood culture positive for staph epidermidis. Follow-up blood culture revealed no growth. White count 19.6. Hemoglobin 10.4. Platelets 352. Sodium 134. Potassium 4.0. Bicarb 33. BUN 66. Creatinine 1.12. Glucose 205. She is continued on DuoNeb inhalations, Symbicort, Solu-Medrol. Heparin for DVT prophylaxis. She remains on Lasix 40 mg IV every 12 hours. Currently in a -700 mL balance. The patient is seen today December 29, 2024 in follow-up in the intensive care unit. She is currently sitting up in bed. Awake and alert in no acute distress. Deny any worsening shortness of breath, cough or congestion. Feeling better. She is now on 8 L high flow nasal cannula. Chest x-ray continues to show improvement. White count 26.0. Hemoglobin 10.7. Platelets 352. Sodium 136. Potassium 4.3. Bicarb 34. BUN 63. Creatinine 1.11. Glucose 185. She remains on DuoNeb inhalations, Symbicort, Solu-Medrol. Heparin for DVT prophylaxis. Continued on Lasix 40 mg every 12 hours. Currently in a -700 mL balance. The patient is seen today January 08, 2025 in follow-up on the selective care unit. She is currently sitting up in bed. Awake and alert in no acute distress. She had developed extensive subcutaneous emphysema for chest and neck and face. She remains on Airvo high flow oxygen at 50 L and 45% FiO2. Chest x-ray shows similar small bilateral pneumothoraces. Similar pneumomediastinum. Similar diffuse subcutaneous emphysema. Patchy scattered airspace opacity within the lungs suggesting pulmonary edema and/or ARDS. Follow-up blood culture revealed no growth. White count 16.7. Hemoglobin 10.5. Platelets 165. Sodium 134. Potassium 4.6. Bicarb 25. BUN 36. Creatinine 0.77. Glucose 134. She remains on DuoNeb inhalations, Symbicort, Solu-Medrol. Heparin for DVT prophylaxis. Remains on diuretics. Remains on cefepime. The patient is seen today January 09, 2025 in follow-up on the selective care unit. She is awake and alert in no acute distress. Sitting up in bed. Her subcutane ous emphysema is worsening. Her eyes are swollen shut now. CT services are planning to place blow holes today. She remains on Airvo high flow oxygen at 50 L and 45% FiO2. Chest x-ray continues to show similar small bilateral pneumothoraces. Similar pneumomediastinum. Similar diffuse subcutaneous emphysema. Patchy scattered airspace opacities within the lung suggesting pulmonary edema and/or ARDS. Follow-up blood culture revealed no growth. White count 17.3. Hemoglobin 10.7. Platelets 160. Sodium 135. Potassium 4.5. Bicarb 23. BUN 39. Creatinine 0.78. Glucose 193. She remains on DuoNeb and elations, Symbicort, Solu-Medrol. Heparin for DVT prophylaxis. Remains on oral diuretics. Remains on cefepime and Diflucan. The patient is seen today January 10, 2025 in follow-up on the selective care unit. She is currently sitting up in bed. Awake and alert in no acute distress. D oing better today compared to yesterday. She did have two blow hole's placed. Her subcutaneous emphysema has improved. She is able to open her eyes. No worsening shortness of breath, cough or congestion. Continued on Airvo high flow oxygen at 50 L and 44% FiO2. She remains on DuoNeb inhalations, Symbicort, IV Solu-Medrol. Heparin for DVT prophylaxis. Remains on oral diuretics. Remains on cefepime. Chest x-ray shows similar small bilateral pneumothoraces. Similar pneumomediastinum. Similar diffuse subcutaneous emphysema. Patchy scattered airspace opacities bilaterally. White count 16.3. Hemoglobin 10.9. Platelets 142. Sodium 133. Potassium 5.2. Bicarb 24. BUN 40. Creatinine 0.65. Glucose 140. The patient is seen today January 11, 2025 in follow-up on the selective care unit. She is currently awake and alert in no acute distress. Sitting up in bed. Still showing improvement in the subcutaneous emphysema. She is maintaining O2 saturations in the 90s on Airvo high flow oxygen at 50 L and 55% FiO2. She has been afebrile. Hemodynamically stable. Chest x-ray continues to show similar small bilateral pneumothoraces with similar pneumomediastinum. Similar diffuse subcutaneous emphysema. Patchy scattered airspace opacities continue. Initial blood culture showing Staphylococcus epidermidis. Follow-up blood cultures x 2 revealed no growth. White count 15.7. Hemoglobin 10.2. Platelets 121. Sodium 130. Potassium 5.2. Bicarb 23. BUN 45. Creatinine 0.75. Glucose 324. She remains on DuoNeb inhalations, Symbicort, Solu-Medrol. Heparin for DVT prophyla xis. Remains on cefepime. Remains on diuretics. The patient is seen today January 12, 2025 in follow-up on the selective care unit. She is currently sitting up in bed. Awake and alert in no acute distress. Feeling better today compared to yesterday. She has less subcutaneous emphysema. Denies any worsening shortness of breath, cough or congestion. She remains on Airvo high flow oxygen at 50 L and 50% FiO2. She is continued on DuoNeb inhalations, Symbicort, Solu-Medrol. Remains on oral diuretics. Remains on cefepime. Remains on Diflucan. Heparin for DVT prophylaxis. Follow-up blood cultures revealed no growth. White count 14.4. Hemoglobin 10.1. Platelets 110. Sodium 130. Potassium 5.3. Bicarb 26. BUN 41. Creatinine 0.69. Glucose 145. Today's chest x-ray is showing similar small bilateral pneumothoraces. Similar pneumomediastinum. Similar diffuse subcutaneous emphysema. Some improvement in the patchy scattered airspace opacities. The patient is seen today January 13, 2025 in follow-up on the selective care unit. She is awake and alert in no acute distress. Her subcutaneous emphysema appears worse today with her left eye swollen shut. New blow holes placed with #[address] services[address] She remains on Airvo high flow oxygen at 50 L and 50% FiO2 with O2 saturation at 95%. She has been afebrile. Hemodynamically stable. Chest x-ray continues to show small bilateral pneumothoraces. Similar pneumomediastinum. Diffuse subcutaneous emphysema. Patchy airspace opacities. Blood culture reveals no growth. White count 16.8. Hemoglobin 9.7. Platelets 122. Sodium 133. Potassium 4.8. BUN 44. Creatinine 0.82. Glucose 177. Objective - Vital Signs Vital signs: Vital Signs Temp 97.7 F 01/13/25 04:00 Pulse 70 01/13/25 09:18 Resp 18 01/13/25 09:18 BP 108/64 01/13/25 09:18 Pulse Ox 95 01/13/25 09:18 FiO2 50 01/13/25 09:18 Intake & Output 01/12/25 01/13/25 01/13/25 18:59 06:59 18:59 Intake Total 436 120 0 Output Total 400 Balance 436 -280 0 Weight 83.5 kg Intake: Oral 436 120 0 Output: Urine 400 Other: Voiding Method External Catheter External Catheter External Catheter # Bowel Movements 1 - Exam GENERAL EXAM: Alert, 74-year-old female, sitting up in bed, on Airvo high flow oxygen at 50 L and 50% FiO2, in no acute distress. HEAD: Evidence of significant subcutaneous emphysema over face EYES: Left eye swollen shut from subcutaneous emphysema NOSE: Clear with pink turbinates. THROAT: No erythema or exudates. NECK: No masses, no JVD. CHEST: Extensive subcutaneous emphysema. Left chest implanted device. Two blow hole in place with #14 Angiocaths. LUNGS: Equal air entry crackles in the posterior bases right greater than left. CVS: S1 and S2 normal with no audible murmur, regular rhythm. No extra heart sounds ABDOMEN: No hepatosplenomegaly, active bowel sounds, no guarding or rigidity. SPINE: No scoliosis or deformity SKIN: No rashes CENTRAL NERVOUS SYSTEM: No focal deficits, tone is normal in all 4 extremities. EXTREMITIES: Right anterior hip incision is approximated. Full range of motion. Right lower extremity pitting edema. Peripheral pulses are intact. - Labs CBC & Chem 7: 01/13/25 06:04 01/13/25 06:04 Labs: Abnormal Lab Results - Last 24 Hours (Table) 01/12/25 01/12/25 01/12/25 Range/Units 12:07 16:58 19:47 WBC (4.50-10.00) 10*3/uL RBC (4.10-5.20) 10*6/uL Hgb (12.0-15.0) g/dL Hct (37.2-46.3) % MCHC (32.0-37.0) g/dL Plt Count (140-440) 10*3/uL Immature Gran # (0.00-0.04) 10*3/uL Neutrophils # (1.80-7.70) 10*3/uL Eosinophils # (0.04-0.35) 10*3/uL Sodium (137-145) mmol/L BUN (7-17) mg/dL Glucose (74-99) mg/dL POC Glucose (mg/dL) 322 H 402 H 371 H (70-110) mg/dL 01/13/25 01/13/25 01/13/25 Range/Units 02:13 06:04 06:04 WBC 16.82 H (4.50-10.00) 10*3/uL RBC 3.32 L (4.10-5.20) 10*6/uL Hgb 9.7 L (12.0-15.0) g/dL Hct 30.4 L (37.2-46.3) % MCHC 31.9 L (32.0-37.0) g/dL Plt Count 122 L (140-440) 10*3/uL Immature Gran # 0.16 H (0.00-0.04) 10*3/uL Neutrophils # 13.84 H (1.80-7.70) 10*3/uL Eosinophils # 1.37 H (0.04-0.35) 10*3/uL Sodium 133 L (137-145) mmol/L BUN 44 H (7-17) mg/dL Glucose 46 L* (74-99) mg/dL POC Glucose (mg/dL) 165 H (70-110) mg/dL 01/13/25 01/13/25 01/13/25 Range/Units 06:42 08:03 08:22 WBC (4.50-10.00) 10*3/uL RBC (4.10-5.20) 10*6/uL Hgb (12.0-15.0) g/dL Hct (37.2-46.3) % MCHC (32.0-37.0) g/dL Plt Count (140-440) 10*3/uL Immature Gran # (0.00-0.04) 10*3/uL Neutrophils # (1.80-7.70) 10*3/uL Eosinophils # (0.04-0.35) 10*3/uL Sodium (137-145) mmol/L BUN (7-17) mg/dL Glucose (74-99) mg/dL POC Glucose (mg/dL) 53 L 69 L 177 H (70-110) mg/dL Microbiology - Last 24 Hours (Table) 01/09/25 15:00 Blood Culture - Preliminary Blood Assessment and Plan Assessment: Acute hypoxemic respiratory failure with CT scan of the chest reveals marked diffuse scattered groundglass opacities consistent with pulmonary edema, ARDS or pneumonia. Moderate cardiomegaly. Procalcitonin negative x 2.The CAT scan of the chest was also consistent with ARDS with secondary complications of bilateral minimal pneumothoraces, pneumomediastinum and subcutaneous emphysema. The patient is currently on IV Solu-Medrol. CHF seems to be quite well optimized and the patient's most recent echocardiogram showed an ejection fraction of 40 to 45%. The patient is also on empiric antibiotic coverage. Cefepime. Chest x-ray findings showing worsening of subcutaneous emphysema. Nevertheless, there is no worsening in the pneumothorax or oxygenation. Remains on Airvo high flow oxygen at 50 L and 55% FiO2. Tiny bilateral pneumothoraces Pneumomediastinum Extensive subcutaneous emphysema secondary to above Acute febrile illness, recovered Acute leukocytosis, improving History of right direct anterior total hip arthroplasty on Nov 24 2024 Acute blood loss anemia, expected outcome of surgery Hypertension History of hyperlipidemia Insulin-dependent diabetes mellitus Obesity with a BMI of 35.4 kg/m Coronary artery disease, with history of CABG and cardiac stents History of ischemic cardiomyopathy with an ejection fraction improved to 40 to 45% Implanted AICD/pacemaker Hypothyroidism Anxiety/depression Poor overall functional performance based on the above-mentioned multiple comorbidities Plan: The patient was seen and evaluated Chest x-ray, labs and medications reviewed Continues with significant subcutaneous emphysema Two blow holes in place per CT services Currently on Airvo high flow oxygen Antibiotics per infectious disease Continue Solu-Medrol Continue Lasix Continue DuoNeb inhalations Continue Symbicort Heparin for DVT prophylaxis Titrate down the FiO2 as tolerated Increase her activity as tolerated We will continue to follow I have personally seen and examined the patient, performed the documentation and the assessment and plan as written. Number of minutes spent on the visit: 10 Dictation was produced using Etherpad dictation software. Please excuse any grammatical, word or spelling errors.
--- NOTE | 2025-01-13 15:57 | P.PN ---
Subjective Progress Note Date: 01/13/25 Patient is a 74-year-old female with hypertension, hyperlipidemia, DM (insulin- dependent), obesity, CAD status post CABG, ischemic cardiomyopathy (EF 25 to 30% with AICD), asthma, and osteoarthritis here for evaluation of a fall with generalized weakness. Patient reported that she developed shortness of breath, dry cough, chills, bilateral extremity swelling and generalized weakness when she was discharged from rehab on 12/09 from [facility]. She recently had a right direct anterior total hip arthroplasty on 11/24/2024. Since then she has fallen twice at home due to missed steps. She reported that her swelling has improved gradually over the past 2 weeks. On arrival to the ED, she also reported to have altered mental status. She denied chest pain, palpitations, nausea, vomiting, abdominal pain, extremity swelling, focal weakness, recent prolonged travel. On admission: Vitals: Temp 99 Fahrenheit, NH 99, RR 16, BP 114/60, O2 saturation 89% on room air Labs: WBC 17.4, hemoglobin 9.5, sodium 132, potassium 4.4, bicarb 23, BUN 16, creatinine 0.9, glucose 124, lactic acid 1.8, calcium 8.8, phosphorus 2.4, magnesium 1.7, TSH 6.7. Liver enzymes within normal ranges. Troponin negative. proBNP 3700. Urinalysis unremarkable. Cepheid 4 Plex negative. Urine Legionella antigen negative. Imaging: Chest x-ray showed cardiomegaly with prominent pulmonary vasculature and patchy bilateral lung infiltrates. Hip pelvis x-ray showed no acute osseous abnormalities. EKG showed V paced at a rate of 87, no ST-T changes, QTc 446 MS. 12/20/2024 patient seen and examined at bedside. No acute events overnight. Still requiring oxygen support with 2 to 3 L of nasal cannula. Patient has no symptoms or complaints. Labs: WBC 15.9, hemoglobin 9.3, MCV 93.6, platelet count 371,000, sodium 139, potassium 4.2, bicarb 27, BUN 16, creatinine 1.01, glucose 133, calcium 9.1, Pro-Fortino 0.22. Blood cultures positive for staph mecA/C positive. Imaging; chest x-ray independently interpreted showing improving pulmonary infiltrates 12/21/2024 patient seen and examined at bedside. No acute events overnight. Patient still requiring 2-3L oxygen. Labs: WBC 21.16, hemoglobin 9, MCV 92.9, platelet count 408,000, sodium 137, potassium 4.5, bicarb 30, BUN 29, creatinine 1.28, glucose 172, calcium 9.3, BNP 2180. Blood cultures positive for Staphylococcus epidermidis MEC A positive. Repeat CXR shows minimal improvement 12/22/2024 patient seen and examined at bedside. No acute events overnight. Patient still requiring 3 to 4 L oxygen via nasal cannula Labs: WBC 7.29, hemoglobin 9.4, platelet count 386,000, sodium 136, potassium 4.7, bicarb 28, BUN 37, creatinine 1.06, glucose 176, calcium 8.8 Imaging; echocardiogram showed LVEF 40 to 45% with moderate global hypokinesis, mild mitral and tricuspid regurgitation 12/23/2024 patient seen and examined at bedside. No acute events overnight. Patient oxygen requirements are increasing from 5 to 6 L high flow nasal cannula. Still having dry cough. Labs: WBC 7 point 0.6, hemoglobin 9.2, MCV 93, platelet count 381,000, sodium 130, potassium 4.4, chloride 102, bicarb 28, BUN 45, creatinine 1.11, glucose 96, calcium 9.1. ABG showed PO2 50 pH 7.42 and pCO2 45 Imaging; chest CT shows marked diffuse scattered groundglass opacities consisten t with pulmonary edema, ARDS or pneumonia, moderate cardiomegaly, 3.4 cm dilation of the main pulmonary artery 12/24/2024 Patient evaluated in follow-up on the medical floor. Patient remains on oxygen support increased up to 10 L high flow cannula with saturations of 90%. patient is currently on a course of IV Solu-Medrol as well as IV Lasix twice daily. She has completed a course of antibiotics. She is also maintained on a fluid restriction. ID and pulmonology are following this patient closely. Blood culture finalized revealing Staphylococcus epidermidis which is felt to be contaminant species 12/25/2024 patient seen and examined at bedside. Patient in the ICU. Requiring high flow nasal cannula rate of 50 FiO2 55% Labs: WBC 17.9, hemoglobin 9.7, MCV 90.8, platelet count 250,000 sodium 137, potassium 4.8, bicarb 31, creatinine, BUN 49, creatinine 1.16, glucose 224, mag 2.2, calcium 9.1. ABG pH 7.46, pCO2 43, bicarb 66 Imaging; chest x-ray showed so far persistent diffuse increased lung markings present 12/26/2024 patient seen and examined at bedside. Still requiring high flow nasal cannula rate of 50 FiO2 60% Labs: WBC 19.5, hemoglobin 10, chloride 97, bicarb 33, potassium 4.2, sodium 137, creatinine 1.07, BUN 54, glucose 280, calcium 9.3, proBNP 1950, Pro-Fortino less than 0.2 Imaging: Chest x-ray showed stable diffuse interstitial infiltrates 12/27/2024 patient seen and examined at bedside. No acute events overnight. Still in the ICU. Still having dry cough. High flow nasal cannula for O2 support flow rate 50 FiO2 60% Labs: WBC 20.3, hemoglobin 10.6, platelet count 370,000, sodium 139, potassium 4.6, bicarb 33, BUN 59, creatinine 0.99, glucose 175, calcium 9.8 Imaging: Chest x-ray today showed stable pulmonary infiltrates 12/28/2024 patient seen and examined at bedside. No acute events overnight. Still in the ICU. Still requiring high flow nasal cannula rate 50 at 50% FiO2 Labs: WBC 19.6, hemoglobin 10.4, sodium 134, potassium 4, bicarb 33, BUN 66, c reatinine 1.12, glucose 205, magnesium 2.3 Imaging: Chest x-ray shows stable diffuse interstitial infiltrates 12/29/2024 patient seen and examined at bedside. No acute events overnight. Still in the ICU. No fevers or chills. O2 requirements decreasing. Labs: WBC 26.03, hemoglobin 10.7, sodium 136, bicarb 34, BUN 63, creatinine 1.11, glucose 185, magnesium 2.4 Imaging: Chest x-ray shows improving diffuse pulmonary infiltrates 12/30/2024 patient seen and examined at bedside. No acute events overnight. Downgraded to stepdown unit Currently on high flow nasal cannula 9 L which has improved. Labs: Sodium 136, potassium 4.7, bicarb 23, BUN 65, creatinine 1.2, glucose 186, calcium 9.4 12/31/2024 Patient is resting in the bed. Awake alert and oriented. Breathing status is better. Currently on 9 L oxygen via nasal cannula. No complaints of chest pain or worsening shortness of breath. Laboratory data showed WBC 27.0 hemoglobin 10.5 and platelets 275. Sodium 135 potassium 5.0 chloride 97 bicarb is 32 BUN 66 and creatinine 1.27 and blood sugar 222. 01/01/2025 patient seen and examined at bedside. No new complaints. Still currently on high flow nasal cannula 8 L for O2 support Labs: WBC 24.7, hemoglobin 10.3, sodium 136, potassium 5.1, bicarb 23, BUN 60, creatinine 1.01, glucose 172 Imaging: Chest x-ray today showed persistent pulmonary diffuse interstitial infiltrates 01/02/2025 patient seen and examined at bedside. Patient increased O2 requirements and is currently on Airvo flow 50 FiO2 60% Labs: sodium 136, potassium 5.1 bicarb 33, BUN 60, creatinine 1.01, glucose 172, calcium 9.5 Imaging: Chest x-ray this morning shows ongoing extensive patchy airspace opacities, new subcutaneous emphysema at the right base of the neck 01/03/2025 patient seen and examined at bedside. Patient still on Airvo low flow 50 FiO2 60% Labs: WBC 21.6, hemoglobin 10.3, platelet count 236,000, sodium 135, potassium 5.4, BUN 44, creatinine 0.96, glucose 181, calcium 9.3 Imaging: Chest x-ray today showed increasing subcutaneous emphysema at the left base of the neck with small pneumothorax on the right chest, stable bilateral airspace opacities 01/04/2025 Patient was on high flow oxygen patient is presently on 15 L 50% FiO2. Patient presently has 15% pneumothorax patient had a CT of the chest. Patient has significant subcutaneous emphysema. 01/05/2025 patient seen and examined at bedside. No acute events overnight. Patient currently on high flow nasal cannula flow 50, FiO2 45%. Complaining of chest pressure when coughing. Imaging: Chest x-ray today shows stable right-sided pneumothorax and bilateral subcutaneous neck emphysema with stable bilateral diffuse opacities 01/13. Dr. CHRISTIANSON took over care. Patient is currently lethargic, currently on heated high flow. Family at the bedside. REVIEW OF SYSTEMS: Review of system cannot be obtained as patient is very lethargic PHYSICAL EXAMINATION: GENERAL: The patient is alert and oriented x3 ill-looking HEENT: Pupils are round and equally reacting to light. EOMI. No scleral icterus. No conjunctival pallor. Normocephalic, atraumatic. No pharyngeal erythema. No thyromegaly. CARDIOVASCULAR: S1 and S2 present. No murmurs, rubs, or gallops. PULMONARY: Diminished breath sounds at bases, subcutaneous emphysema ABDOMEN: Soft, nontender, nondistended, normoactive bowel sounds. No palpable organomegaly. MUSCULOSKELETAL: No joint swelling or deformity. EXTREMITIES: No cyanosis, clubbing, or pedal edema. NEUROLOGICAL: Gross neurological examination did not reveal any focal deficits. SKIN: No rashes. Assessment and plan Acute hypoxemic respiratory failure ARDS Tiny bilateral pneumothoraces Pneumomediastinum Extensive subcutaneous emphysema secondary to above Acute febrile illness, recovered Acute leukocytosis, improving History of right direct anterior total hip arthroplasty on Nov 24 2024 Acute blood loss anemia, expected outcome of surgery Hypertension History of hyperlipidemia Insulin-dependent diabetes mellitus Obesity with a BMI of 35.4 kg/m Coronary artery disease, with history of CABG and cardiac stents History of ischemic cardiomyopathy with an ejection fraction improved to 40 to 45% Implanted AICD/pacemaker Hypothyroidism Anxiety/depression Monitor vital signs Monitor CBC Monitor CMP Continue telemetry monitoring Encourage use of incentive spirometer Continue ox supplementation, currently on heated high flow Aggressive bronchopulmonary hygiene Strict I's and O's, daily weights Continue breathing treatment Continue IV Solu-Medrol Currently on IV cefepime, Diflucan Pulmonology following CT surgery following Labs and medication were reviewed.. Continue same treatment. Continue with symptomatic treatment. Resume home medication. Monitor labs and vitals. DVT and GI prophylaxis. Further recommendations as per clinical course of the patient Dictation was produced using [employer] dictation software. please excuse any grammatical, word or spelling errors. Objective - Vital Signs Vital signs: Vital Signs Temp 97.6 F 01/13/25 15:33 Pulse 73 01/13/25 15:38 Resp 18 01/13/25 15:33 BP 114/69 01/13/25 15:33 Pulse Ox 96 01/13/25 15:33 FiO2 50 01/13/25 15:33 Intake & Output 01/12/25 01/13/25 01/13/25 18:59 06:59 18:59 Intake Total 436 120 118 Output Total 400 Balance 436 -280 118 Weight 83.5 kg Intake: Oral 436 120 118 Output: Urine 400 Other: Voiding Method External Catheter External Catheter External Catheter # Bowel Movements 1 - Labs CBC & Chem 7: 01/13/25 06:04 01/13/25 06:04 Labs: Abnormal Lab Results - Last 24 Hours (Table) 01/12/25 01/12/25 01/13/25 Range/Units 16:58 19:47 02:13 WBC (4.50-10.00) 10*3/uL RBC (4.10-5.20) 10*6/uL Hgb (12.0-15.0) g/dL Hct (37.2-46.3) % MCHC (32.0-37.0) g/dL Plt Count (140-440) 10*3/uL Immature Gran # (0.00-0.04) 10*3/uL Neutrophils # (1.80-7.70) 10*3/uL Eosinophils # (0.04-0.35) 10*3/uL Sodium (137-145) mmol/L BUN (7-17) mg/dL Glucose (74-99) mg/dL POC Glucose (mg/dL) 402 H 371 H 165 H (70-110) mg/dL 01/13/25 01/13/25 01/13/25 Range/Units 06:04 06:04 06:42 WBC 16.82 H (4.50-10.00) 10*3/uL RBC 3.32 L (4.10-5.20) 10*6/uL Hgb 9.7 L (12.0-15.0) g/dL Hct 30.4 L (37.2-46.3) % MCHC 31.9 L (32.0-37.0) g/dL Plt Count 122 L (140-440) 10*3/uL Immature Gran # 0.16 H (0.00-0.04) 10*3/uL Neutrophils # 13.84 H (1.80-7.70) 10*3/uL Eosinophils # 1.37 H (0.04-0.35) 10*3/uL Sodium 133 L (137-145) mmol/L BUN 44 H (7-17) mg/dL Glucose 46 L* (74-99) mg/dL POC Glucose (mg/dL) 53 L (70-110) mg/dL 01/13/25 01/13/25 01/13/25 Range/Units 08:03 08:22 12:14 WBC (4.50-10.00) 10*3/uL RBC (4.10-5.20) 10*6/uL Hgb (12.0-15.0) g/dL Hct (37.2-46.3) % MCHC (32.0-37.0) g/dL Plt Count (140-440) 10*3/uL Immature Gran # (0.00-0.04) 10*3/uL Neutrophils # (1.80-7.70) 10*3/uL Eosinophils # (0.04-0.35) 10*3/uL Sodium (137-145) mmol/L BUN (7-17) mg/dL Glucose (74-99) mg/dL POC Glucose (mg/dL) 69 L 177 H 119 H (70-110) mg/dL Microbiology - Last 24 Hours (Table) 01/09/25 15:00 Blood Culture - Preliminary Blood
--- NOTE | 2025-01-13 16:10 | P.PN ---
Subjective Progress Note Date: 01/13/25 Principal diagnosis: Reason for follow-up is a positive blood culture/leukocytosis/thrush Patient is a 74-year-old female with a past medical history significant for Asthma, Blood Disorder, Coronary Artery Disease (CAD), Chest Pain / Angina, Heart Failure, Diabetes Mellitus, Eye Disorder, GERD/Reflux, Hyperlipidemia, Hypertension, Myocardial Infarction ([place]), Musculoskeletal Disorder, Osteoarthritis (OA), Renal Disease, Skin Disorder, Supraventricular Tachycardia (SVT), Thyroid Disorder who recently did have a right hip replacement, patient presented the hospital with increasing shortness of breath and cough did have a positive blood culture prompting this consultation. On today's evaluation that is 01/14/2024, patient did have a temperature of 97.6 F this afternoon patient is currently on 50% high flow nasal cannula oxygen seem to have developed more subcutaneous edema with more puffiness of the facial area no vomiting diarrhea any changes reported by the at the bedside. Patient white count is 16.82, creatinine 0.82, chest x-ray small bilateral pneumothoraces diffuse subcutaneous emphysema Objective - Vital Signs Vital signs: Vital Signs Temp 97.6 F 01/13/25 15:33 Pulse 73 01/13/25 15:38 Resp 18 01/13/25 15:33 BP 114/69 01/13/25 15:33 Pulse Ox 96 01/13/25 15:33 FiO2 50 01/13/25 15:33 Intake & Output 01/12/25 01/13/25 01/13/25 18:59 06:59 18:59 Intake Total 436 120 118 Output Total 400 Balance 436 -280 118 Weight 83.5 kg Intake: Oral 436 120 118 Output: Urine 400 Other: Voiding Method External Catheter External Catheter External Catheter # Bowel Movements 1 - Labs CBC & Chem 7: 01/13/25 06:04 01/13/25 06:04 Labs: Abnormal Lab Results - Last 24 Hours (Table) 01/12/25 01/12/25 01/13/25 Range/Units 16:58 19:47 02:13 WBC (4.50-10.00) 10*3/uL RBC (4.10-5.20) 10*6/uL Hgb (12.0-15.0) g/dL Hct (37.2-46.3) % MCHC (32.0-37.0) g/dL Plt Count (140-440) 10*3/uL Immature Gran # (0.00-0.04) 10*3/uL Neutrophils # (1.80-7.70) 10*3/uL Eosinophils # (0.04-0.35) 10*3/uL Sodium (137-145) mmol/L BUN (7-17) mg/dL Glucose (74-99) mg/dL POC Glucose (mg/dL) 402 H 371 H 165 H (70-110) mg/dL 01/13/25 01/13/25 01/13/25 Range/Units 06:04 06:04 06:42 WBC 16.82 H (4.50-10.00) 10*3/uL RBC 3.32 L (4.10-5.20) 10*6/uL Hgb 9.7 L (12.0-15.0) g/dL Hct 30.4 L (37.2-46.3) % MCHC 31.9 L (32.0-37.0) g/dL Plt Count 122 L (140-440) 10*3/uL Immature Gran # 0.16 H (0.00-0.04) 10*3/uL Neutrophils # 13.84 H (1.80-7.70) 10*3/uL Eosinophils # 1.37 H (0.04-0.35) 10*3/uL Sodium 133 L (137-145) mmol/L BUN 44 H (7-17) mg/dL Glucose 46 L* (74-99) mg/dL POC Glucose (mg/dL) 53 L (70-110) mg/dL 01/13/25 01/13/25 01/13/25 Range/Units 08:03 08:22 12:14 WBC (4.50-10.00) 10*3/uL RBC (4.10-5.20) 10*6/uL Hgb (12.0-15.0) g/dL Hct (37.2-46.3) % MCHC (32.0-37.0) g/dL Plt Count (140-440) 10*3/uL Immature Gran # (0.00-0.04) 10*3/uL Neutrophils # (1.80-7.70) 10*3/uL Eosinophils # (0.04-0.35) 10*3/uL Sodium (137-145) mmol/L BUN (7-17) mg/dL Glucose (74-99) mg/dL POC Glucose (mg/dL) 69 L 177 H 119 H (70-110) mg/dL Microbiology - Last 24 Hours (Table) 01/09/25 15:00 Blood Culture - Preliminary Blood Assessment and Plan (1) Positive blood culture Current Visit: Yes Status: Acute Code(s): R78.81 - BACTEREMIA SNOMED Code(s): 463299232 (2) Leukocytosis Current Visit: Yes Status: Acute Code(s): D72.829 - ELEVATED WHITE BLOOD CELL COUNT, UNSPECIFIED SNOMED Code(s): 547476319 (3) Oropharyngeal candidiasis Current Visit: Yes Status: Acute Code(s): B37.0 - CANDIDAL STOMATITIS SNOMED Code(s): 06917485 Plan: 1patient with a positive blood culture with staph epi which is more likely skin contamination this patient who recently did have a right hip replacement however the right hip surgical site incision is currently healed with no cellulitis and the patient denies having any pain to the right hip area, no need for vancomycin however blood culture has been repeated which has been negative 2the patient has developed significant subcutaneous emphysema patient is status post placement of below holes to try to relieve the subcutaneous emphysema with a 14-gauge Angiocath by CT surgery and patient did have initial improvement but now seem to have worsening CT surgery is following the patient 3-patient is afebrile noticed to have slight worsening of the white count to monitor closely for now to continue nystatin swish and swallow and Diflucan Dictation was produced using [employer] dictation software. please excuse any grammatical, word or spelling errors. Time with Patient: Less than 30
[2025-01-13 16:33] LABS: Glucose,Whole Blood 259 mg/dL (70-110)
[2025-01-13 20:31] LABS: Glucose,Whole Blood 284 mg/dL (70-110)
[2025-01-13] MEDS: LACTULOSE 20 GM/30 ML CUP PO SCH (20:47)
[2025-01-14 02:00] LABS: Glucose,Whole Blood 269 mg/dL (70-110)
[2025-01-14 06:48] LABS: Glucose,Whole Blood 115 mg/dL (70-110)
--- NOTE | 2025-01-14 07:21 | XR ---
EXAMINATION TYPE: XR chest 1V portable DATE OF EXAM: 01/14/2025 5:51 AM COMPARISON: Chest radiograph from one day prior. TECHNIQUE: XR chest 1V portable Portable AP radiograph of the chest. CLINICAL INDICATION:Female, 74 years old with history of Subcutaneous emphysema; FINDINGS: Lungs/Pleura: Similar small bilateral pneumothoraces. Scattered airspace opacities throughout the mao gs again. No pleural effusion. Pulmonary vascularity: Unremarkable. Heart/mediastinum: Cardiomediastinal silhouette is enlarged. Pneumomediastinum redemonstrated. Three lead cardiac conduction device overlying the left hemithorax with lead tips projecting over the right ventricle, right atrium and coronary sinus. Musculoskeletal: No acute osseous pathology. Midline sternotomy wires are noted. Other findings: Similar diffuse subcutaneous emphysema scattered throughout the visualized thorax and visualized neck. IMPRESSION: 1. Similar small bilateral pneumothoraces, right greater left. 2. Similar pneumomediastinum. 3. Similar diffuse subcutaneous emphysema. 4. Patchy scattered airspace opacities within the lungs suggesting pulmonary edema and/or ARDS. [facility], , 01/14/2025 7:19 AM
[2025-01-14 07:22] LABS: Glucose,Whole Blood 124 mg/dL (70-110)
[2025-01-14 08:05] LABS: Basophils # (A) 0.02 10*3/uL (0.00-0.10); Basophils % (A) 0.2 %; Eosinophils # (A) 1.00 10*3/uL (0.04-0.35); Eosinophils % (A) 9.1 %; HCT 30.0 % (37.2-46.3); HGB 9.8 g/dL (12.0-15.0); Lymphocytes # (A) 0.58 10*3/uL (0.90-5.00); Lymphocytes % (A) 5.3 %; MCH 30.2 pg (27.0-32.0); MCHC 32.7 g/dL (32.0-37.0); MCV 92.3 fL (80.0-97.0); Monocytes # (A) 0.16 10*3/uL (0.20-1.00); Monocytes % (A) 1.5 %; Neutrophils # (A) 9.12 10*3/uL (1.80-7.70); Neutrophils % (A) 83.4 %; RBC 3.25 10*6/uL (4.10-5.20); RDW 16.6 % (11.5-14.5); WBC 10.94 10*3/uL (4.50-10.00)
[2025-01-14 08:23] LABS: ALT 60 U/L (4-34); AST 30 U/L (14-36); African American GFR (CKD) 85 (>60 ml/min/1.73 sqM); Albumin 2.7 g/dL (3.5-5.0); Alkaline Phosphatase 126 U/L (38-126); Anion Gap 5 mmol/L; Blood Urea Nitrogen 43 mg/dL (7-17); Calcium 9.8 mg/dL (8.4-10.2); Carbon Dioxide 26 mmol/L (22-30); Chloride 101 mmol/L (98-107); Glucose 106 mg/dL (74-99); Non-African American GFR(CKD) 74 (>60 ml/min/1.73 sqM); Potassium 4.6 mmol/L (3.5-5.1); Sodium 132 mmol/L (137-145); Total Protein 5.3 g/dL (6.3-8.2)
--- NOTE | 2025-01-14 08:49 | P.PN ---
Subjective Progress Note Date: 01/14/25 Principal diagnosis: Extensive subcutaneous emphysema. Past medical history significant for coronary artery disease with previous PCI and CABG, ischemic cardiomyopathy status post AICD placement, hypertension, hyperlipidemia, insulin-dependent diabetes, hypothyroid. Status post day #5 placement of below holes to try to relieve the subcutaneous emphysema with a 14-gauge Angiocath. The patient was seen and examined in follow-up today January 14, 2025 at her bedside on the third floor cardiac stepdown unit. She is currently laying in bed, is awake, alert, oriented x 3 and is in no acute apparent distress. She denies any complaints of pain or shortness of breath at this time. Oxygen saturations are 96% on Airvo 50% FiO2, 50 flow rate. 14-gauge Angiocath's blowholes were replaced yesterday without incident. Subcutaneous emphysema looks slightly improved today. Remote telemetry showing V paced rhythm heart rate 70 bpm. Chest x-ray results reviewed. Objective - Vital Signs Vital signs: Vital Signs Temp 97.7 F 01/14/25 03:47 Pulse 81 01/14/25 03:47 Resp 18 01/14/25 03:47 BP 127/73 01/14/25 03:47 Pulse Ox 96 01/14/25 03:47 FiO2 50 01/14/25 03:47 Intake & Output 01/13/25 01/14/25 01/14/25 18:59 06:59 18:59 Intake Total 236 Output Total 1500 Balance 236 -1500 Weight 84 kg Intake: Oral 236 Output: Urine 1500 Other: Voiding Method External Catheter External Catheter - Exam CONSTITUTIONAL: Appears comfortable, cooperative, no acute distress. RESPIRATORY: Lungs sounds diminished throughout bilaterally. Respirations even, nonlabored. Currently on Airvo with FiO2 50% and flow rate 50 with oxygen saturation 96%. Able to achieve 500 mL on incentive spirometry. Strong cough. CARDIOVASCULAR: S1, S2 present. Regular rate and rhythm, V paced rhythm on telemetry heart rate 70 bpm. Palpable peripheral pulses bilaterally. No edema present. No calf pain or tenderness noted. GASTROINTESTINAL: Abdomen soft, nontender, nondistended. Active bowel sounds present 4 quadrants. Tolerating diet. GENITOURINARY: Continues to void clear, yellow urine. INTEGUMENTARY: Skin is warm and dry with evidence of good perfusion. NEUROLOGIC: Cranial nerves II through XII intact. No focal deficits. MUSKULOSKELETAL: Able to move all extremities, strength equal bilaterally, generalized weakness. PSYCHIATRIC: Alert and oriented to person place and time, appropriate affect, intact judgment and insight. - Allied health notes Allied health notes reviewed: nursing - Labs CBC & Chem 7: 01/14/25 07:36 01/14/25 07:36 Labs: Abnormal Lab Results - Last 24 Hours (Table) 01/13/25 01/13/25 01/13/25 Range/Units 12:14 16:30 20:30 WBC (4.50-10.00) 10*3/uL RBC (4.10-5.20) 10*6/uL Hgb (12.0-15.0) g/dL Hct (37.2-46.3) % Immature Gran # (0.00-0.04) 10*3/uL Sodium (137-145) mmol/L BUN (7-17) mg/dL Glucose (74-99) mg/dL POC Glucose (mg/dL) 119 H 259 H 284 H (70-110) mg/dL ALT (4-34) U/L Total Protein (6.3-8.2) g/dL Albumin (3.5-5.0) g/dL 01/14/25 01/14/25 01/14/25 Range/Units 01:57 06:46 07:20 WBC (4.50-10.00) 10*3/uL RBC (4.10-5.20) 10*6/uL Hgb (12.0-15.0) g/dL Hct (37.2-46.3) % Immature Gran # (0.00-0.04) 10*3/uL Sodium (137-145) mmol/L BUN (7-17) mg/dL Glucose (74-99) mg/dL POC Glucose (mg/dL) 269 H 115 H 124 H (70-110) mg/dL ALT (4-34) U/L Total Protein (6.3-8.2) g/dL Albumin (3.5-5.0) g/dL 01/14/25 01/14/25 Range/Units 07:36 07:36 WBC 10.94 H (4.50-10.00) 10*3/uL RBC 3.25 L (4.10-5.20) 10*6/uL Hgb 9.8 L (12.0-15.0) g/dL Hct 30.0 L (37.2-46.3) % Immature Gran # 0.06 H (0.00-0.04) 10*3/uL Sodium 132 L (137-145) mmol/L BUN 43 H (7-17) mg/dL Glucose 106 H (74-99) mg/dL POC Glucose (mg/dL) (70-110) mg/dL ALT 60 H (4-34) U/L Total Protein 5.3 L (6.3-8.2) g/dL Albumin 2.7 L (3.5-5.0) g/dL Microbiology - Last 24 Hours (Table) 01/09/25 15:00 Blood Culture - Preliminary Blood - Imaging and Cardiology Chest x-ray: report reviewed, image reviewed Assessment and Plan Assessment: Extensive subcutaneous emphysema extending upper chest, neck, face, status post placement of 2 angio cath 14-gauge subclavicular acting as blowhole's Bilateral tiny pneumothoraces, pneumomediastinum found on CT Pneumonia Acute hypoxic respiratory failure secondary to above History of coronary artery disease with previous PCI and CABG Ischemic cardiomyopathy status post AICD placement Hypertension Hyperlipidemia Insulin-dependent diabetes Hypothyroid Plan: Keep left 14-gauge Angiocath in place as blowhole's Continue to monitor daily chest x-rays. Encourage use of incentive spirometry 10 times every hour while awake. Increase activity as tolerated. Medical management of other comorbidities per internal medicine, pulmonary critical care service, and infectious disease. More recommendations to follow based on patient's clinical course. Time with Patient: Less than 30
[2025-01-14 10:07] LABS: Glucose,Whole Blood 104 mg/dL (70-110)
[2025-01-14 10:56] LABS: Platelet Count 85 10*3/uL (140-440)
[2025-01-14 12:09] LABS: Glucose,Whole Blood 91 mg/dL (70-110)
--- NOTE | 2025-01-14 13:41 | P.PN ---
Subjective Progress Note Date: 01/14/25 Patient is a 75-year-old female with past medical history significant for hypertension, hyperlipidemia, insulin-dependent diabetes mellitus, obesity, coronary artery disease with previous CABG, ischemic cardiomyopathy with an ejection fraction of 25 to 30% with AICD, asthma, and osteoarthritis. Of note, patient recently underwent right direct anterior total hip arthroplasty on 11/24/2024. She was discharged from the hospital to [facility] for rehabilitation. While at the outside facility, developed shortness of breath, coughing, and generalized weakness. States she was released from [facility] to home last Wednesday on November. Since then, she has fallen twice while at home. Brought in by EMS yesterday evening hypoxic and confused. She was placed on supplemental oxygen. Workup in the emergency department including a chest x-ray showing patchy bilateral lung infiltrates concerning for congestive heart failure or atypical pneumonias. CBC: WBC count 14.7, hemoglobin 9.5 g/dL, platelets 374. BMP: Sodium 132, potassium 4.4, chloride 100, serum bicarb 23, BUN 16, creatinine 0.92, glucose 124. Lactic 1.8. LFTs unremarkable. Troponin less than 0.012. NT proBNP 6.74. Viral 4 Plex negative for influenza A/B, RSV, COVID. Urinalysis unremarkable for UTI. Patient currently being evaluated on the general medical floor. She is alert and oriented x 3. Endorses above menti oned complaints. Does report history of asthma. Has had increased work of breathing over the last couple weeks. Suffering from persistent nonproductive cough over the same timeframe. States her symptoms actually started at [facility]. She has had a poor appetite with occasional nausea and vomiting. She has been able to take some of her home medications. Has had intermittent fevers with a Tmax of 100.8 F. Was started on empiric antibiotics in the ED, in the form azithromycin and Rocephin. Normal saline infusing at 50 mL/h. Denies any chest pain. Does endorse unilateral right lower lower extremity edema. No heart palpitations, syncopal events, hemoptysis. Current vital signs: Temperature 100.8 F, heart rate 95 bpm, blood pressure 124/54 mmHg, nontachypneic, SpO2 recorded at 96% on 3 L/min nasal cannula. The patient is seen today December 20, 2024 and follow-up on the regular medical floor. She is currently sitting up in bed. Awake and alert in no acute distress. Feeling a bit better today compared to yesterday. Maintaining O2 saturations in the 90s on 3 L/min per nasal cannula. Chest x-ray shows continued infiltrate of the right lung with improvement in the left lung. Blood culture is coming back positive. ID pending. White count 15.9. Hemoglobin 9.3. Platelets 371. Sodium 139. Potassium 4.2. Bicarb 27. BUN 16. Creatinine 1.01. Glucose 133. She remains on DuoNeb inhalations, IV Solu- Medrol, IV diuretics. Lovenox for DVT prophylaxis. Antibiotics in the form of ceftriaxone. The patient is seen today December 21, 2024 in follow-up on the regular medical floor. She is currently sitting up in a chair. Awake and alert in no acute distress. Maintaining O2 saturations in the 90s on 3 L/min per nasal cannula. She has been afebrile. Hemodynamically stable. Blood cultures showing staph epidermidis, most likely contaminant. White count 21.1. Hemoglobin 9.0. Platelets 409. Sodium 137. Potassium 4.5. Bicarb 30. BUN 29. Creatinine 1. 28. Glucose 172. proBNP 2180. She remains on DuoNeb inhalations, Solu-Medrol. Antibiotics in the form of ceftriaxone. Lovenox for DVT prophylaxis. Remains on IV diuretics. No accurate intake and output recorded. Chest x-ray showing similar findings with basilar infiltrates right greater than left. The patient is seen today December 22, 2024 in follow-up on the regular medical floor. She is sitting up at the bedside. Awake and alert in no acute distress. She has been slow to progress. She is still dyspneic with minimal exertion. Dyspneic with conversation. She is maintaining O2 saturations in the 90s on 7 L high flow nasal cannula. Echocardiogram reveals impaired left ventricular systolic function with an ejection fraction 40 [address]%. [address] scan of the chest revealed marked diffuse scattered groundglass opacities consistent with pulmonary edema, ARDS or pneumonia. AICD in place. Blood culture positive for Staphylococcus epidermidis. White count 17.9. Hemoglobin 9.4. Platelets 386. Sodium 136. Potassium 4.7. Bicarb 28. BUN 37. Creatinine 1.06. Glucose 176. She remains on DuoNeb inhalations, Solu-Medrol. Remains on oral diuretics. Antibiotics in the form of ceftriaxone. Heparin for DVT prophylaxis. The patient is seen today December 23, 2024 in follow-up on the regular medical floor. She is currently resting in bed. Awake and alert in no acute distress. Feeling a bit better today compared to yesterday. She is maintaining O2 saturations in the 90s on 6 L high flow nasal cannula. She remains afebrile. Hemodynamically stable. Initial blood cultures showing staph epidermidis. Follow-up blood culture reveals no growth. White count 17.6. Hemoglobin 9.2. Platelets 381. Sodium 138. Potassium 4.4. Bicarb 28. BUN 45. Creatinine 1.11. Glucose 115. Arterial blood gases on 44% FiO2 revealed a PO2 of 50, [id number] and a pH of 7.42. She remains on DuoNeb inhalations, Solu-Medrol and Robitussin as needed. Heparin for DVT prophylaxis. She remains on Lasix 40 mg every 12 hours. No accurate intake and output recorded. The patient is seen today December 24, 2024 in follow-up on the regular medical floor. She is awake and alert in no acute distress. Resting in bed. No worsening shortness of breath, cough or congestion. She is still requiring 10 L high flow nasal cannula to maintain O2 saturations in the 90s. Lung sounds improved. Blood cultures were positive for Staphylococcus epidermidis. Most likely a contaminant. Follow-up blood culture revealed no growth. Glucose 233. She remains on DuoNeb inhalations, Symbicort, Solu-Medrol. She remains on IV Lasix. Heparin for DVT prophylaxis. Currently in a -1.9 L balance. The patient is seen today December 25, 2024 in follow-up in the intensive care unit. She was transferred down here last evening after having issues with worsening hypoxemia. She is currently on Airvo high flow oxygen at 50 L and 50% FiO2. She is afebrile. Hemodynamically stable. Chest x-ray continues to show cardiomegaly with pulmonary vascular congestion and bilateral pleural effusions. Follow-up blood culture revealed no growth. White count 17.9. Hemoglobin 9.7. Platelets 350. Sodium 137. Potassium 4.8. Bicarb 31. BUN 49. Creatinine 1.16. Glucose 224. She remains on DuoNeb inhalations, Symbicort, Solu-Medrol. Heparin for DVT prophylaxis. She remains on Lasix 40 mg IV every 12 hours. C urrently in a -4 L balance. The patient is seen today December 26, 2024 in follow-up in the intensive care unit. She is currently sitting up in bed. Awake and alert in no acute distress. Feeling a bit better today compared to yesterday. She is still high flow oxygen at 50 L and 60% FiO2. No IV fluids. She has been afebrile. Hemodynamically stable. Chest x-ray continues to show diffuse infiltrates bilaterally right greater than left. Follow-up blood culture reveals no growth. White count 1 9.5. Hemoglobin 10.0. Platelets 359. Sodium 137. Potassium 4.2. Bicarb 33. BUN 54. Creatinine 1.07. Glucose 280. Continued on Lasix 40 mg IV every 12 hours. Currently net -3.3 L balance. She remains on DuoNeb and elations, Symbicort, Solu-Medrol. Robitussin for her cough. The patient is seen today December 28, 2024 in follow-up in the intensive care unit. She is awake and alert in no acute distress. Sitting up in bed. Remains on Airvo high flow oxygen at 50 L and 50% FiO2. No IV fluids. Chest x-ray is showing fluid volume overload but improving. Initial blood culture positive for staph epidermidis. Follow-up blood culture revealed no growth. White count 19.6. Hemoglobin 10.4. Platelets 352. Sodium 134. Potassium 4.0. Bicarb 33. BUN 66. Creatinine 1.12. Glucose 205. She is continued on DuoNeb inhalations, Symbicort, Solu-Medrol. Heparin for DVT prophylaxis. She remains on Lasix 40 mg IV every 12 hours. Currently in a -700 mL balance. The patient is seen today December 29, 2024 in follow-up in the intensive care unit. She is currently sitting up in bed. Awake and alert in no acute distress. Deny any worsening shortness of breath, cough or congestion. Feeling better. She is now on 8 L high flow nasal cannula. Chest x-ray continues to show improvement. White count 26.0. Hemoglobin 10.7. Platelets 352. Sodium 136. Potassium 4.3. Bicarb 34. BUN 63. Creatinine 1.11. Glucose 185. She remains on DuoNeb inhalations, Symbicort, Solu-Medrol. Heparin for DVT prophylaxis. Continued on Lasix 40 mg every 12 hours. Currently in a -700 mL balance. The patient is seen today January 08, 2025 in follow-up on the selective care unit. She is currently sitting up in bed. Awake and alert in no acute distress. She had developed extensive subcutaneous emphysema for chest and neck and face. She remains on Airvo high flow oxygen at 50 L and 45% FiO2. Chest x-ray shows similar small bilateral pneumothoraces. Similar pneumomediastinum. Similar diffuse subcutaneous emphysema. Patchy scattered airspace opacity within the lungs suggesting pulmonary edema and/or ARDS. Follow-up blood culture revealed no growth. White count 16.7. Hemoglobin 10.5. Platelets 165. Sodium 134. Potassium 4.6. Bicarb 25. BUN 36. Creatinine 0.77. Glucose 134. She remains on DuoNeb inhalations, Symbicort, Solu-Medrol. Heparin for DVT prophylaxis. Remains on diuretics. Remains on cefepime. The patient is seen today January 09, 2025 in follow-up on the selective care unit. She is awake and alert in no acute distress. Sitting up in bed. Her subcutane ous emphysema is worsening. Her eyes are swollen shut now. CT services are planning to place blow holes today. She remains on Airvo high flow oxygen at 50 L and 45% FiO2. Chest x-ray continues to show similar small bilateral pneumothoraces. Similar pneumomediastinum. Similar diffuse subcutaneous emphysema. Patchy scattered airspace opacities within the lung suggesting pulmonary edema and/or ARDS. Follow-up blood culture revealed no growth. White count 17.3. Hemoglobin 10.7. Platelets 160. Sodium 135. Potassium 4.5. Bicarb 23. BUN 39. Creatinine 0.78. Glucose 193. She remains on DuoNeb and elations, Symbicort, Solu-Medrol. Heparin for DVT prophylaxis. Remains on oral diuretics. Remains on cefepime and Diflucan. The patient is seen today January 10, 2025 in follow-up on the selective care unit. She is currently sitting up in bed. Awake and alert in no acute distress. D oing better today compared to yesterday. She did have two blow hole's placed. Her subcutaneous emphysema has improved. She is able to open her eyes. No worsening shortness of breath, cough or congestion. Continued on Airvo high flow oxygen at 50 L and 44% FiO2. She remains on DuoNeb inhalations, Symbicort, IV Solu-Medrol. Heparin for DVT prophylaxis. Remains on oral diuretics. Remains on cefepime. Chest x-ray shows similar small bilateral pneumothoraces. Similar pneumomediastinum. Similar diffuse subcutaneous emphysema. Patchy scattered airspace opacities bilaterally. White count 16.3. Hemoglobin 10.9. Platelets 142. Sodium 133. Potassium 5.2. Bicarb 24. BUN 40. Creatinine 0.65. Glucose 140. The patient is seen today January 11, 2025 in follow-up on the selective care unit. She is currently awake and alert in no acute distress. Sitting up in bed. Still showing improvement in the subcutaneous emphysema. She is maintaining O2 saturations in the 90s on Airvo high flow oxygen at 50 L and 55% FiO2. She has been afebrile. Hemodynamically stable. Chest x-ray continues to show similar small bilateral pneumothoraces with similar pneumomediastinum. Similar diffuse subcutaneous emphysema. Patchy scattered airspace opacities continue. Initial blood culture showing Staphylococcus epidermidis. Follow-up blood cultures x 2 revealed no growth. White count 15.7. Hemoglobin 10.2. Platelets 121. Sodium 130. Potassium 5.2. Bicarb 23. BUN 45. Creatinine 0.75. Glucose 324. She remains on DuoNeb inhalations, Symbicort, Solu-Medrol. Heparin for DVT prophyla xis. Remains on cefepime. Remains on diuretics. The patient is seen today January 12, 2025 in follow-up on the selective care unit. She is currently sitting up in bed. Awake and alert in no acute distress. Feeling better today compared to yesterday. She has less subcutaneous emphysema. Denies any worsening shortness of breath, cough or congestion. She remains on Airvo high flow oxygen at 50 L and 50% FiO2. She is continued on DuoNeb inhalations, Symbicort, Solu-Medrol. Remains on oral diuretics. Remains on cefepime. Remains on Diflucan. Heparin for DVT prophylaxis. Follow-up blood cultures revealed no growth. White count 14.4. Hemoglobin 10.1. Platelets 110. Sodium 130. Potassium 5.3. Bicarb 26. BUN 41. Creatinine 0.69. Glucose 145. Today's chest x-ray is showing similar small bilateral pneumothoraces. Similar pneumomediastinum. Similar diffuse subcutaneous emphysema. Some improvement in the patchy scattered airspace opacities. The patient is seen today January 13, 2025 in follow-up on the selective care unit. She is awake and alert in no acute distress. Her subcutaneous emphysema appears worse today with her left eye swollen shut. New blow holes placed with #[address] services. She remains on Airvo high flow oxygen at 50 L and 50% FiO2 with O2 saturation at 95%. She has been afebrile. Hemodynamically stable. Chest x-ray continues to show small bilateral pneumothoraces. Similar pneumomediastinum. Diffuse subcutaneous emphysema. Patchy airspace opacities. Blood culture reveals no growth. White count 16.8. Hemoglobin 9.7. Platelets 122. Sodium 133. Potassium 4.8. BUN 44. Creatinine 0.82. Glucose 177. The patient is seen today January 14, 2025 in follow-up on the selective care unit. She is currently sitting up in bed. Awake and alert in no acute distress. Her subcutaneous emphysema is improved today compared to yesterday. Both of her eyes are open. She denies any worsening shortness of breath, cough or congestion. She is still requiring Airvo high flow oxygen at 50 L and 55% FiO2 to maintain O2 saturations in the 90s. Blood cultures revealed no growth. White count 10.9. Hemoglobin 9.8. Platelets 85,000. Sodium 132. Potassium 4.6. Bicarb 26. BUN 43. Creatinine 0.8. Glucose 106. AST 30. ALT 60. Mela st x-ray shows small bilateral pneumothoraces right greater than left. Pneumomediastinum. Diffuse subcutaneous emphysema. Patchy scattered airspace opacities. She is continued on DuoNeb inhalations, Symbicort, Solu-Medrol. Heparin for DVT prophylaxis. Remains on oral diuretics. Remains on cefepime. Objective - Vital Signs Vital signs: Vital Signs Temp 98.2 F 01/14/25 12:00 Pulse 73 01/14/25 12:30 Resp 20 01/14/25 12:00 BP 107/64 01/14/25 12:00 Pulse Ox 95 01/14/25 12:31 FiO2 55 01/14/25 12:31 Intake & Output 01/13/25 01/14/25 01/14/25 18:59 06:59 18:59 Intake Total 236 Output Total 1500 Balance 236 -1500 Weight 84 kg Intake: Oral 236 Output: Urine 1500 Other: Voiding Method External Catheter External Catheter External Catheter # Bowel Movements 1 - Exam GENERAL EXAM: Alert, pleasant, weak 74-year-old female, sitting up in bed, on Airvo high flow oxygen at 50 L and 55% FiO2, in no acute distress. HEAD: Evidence of significant subcutaneous emphysema over face EYES: Improved subcutaneous emphysema NOSE: Clear with pink turbinates. THROAT: No erythema or exudates. NECK: No masses, no JVD. CHEST: Improved subcutaneous emphysema. Left chest implanted device. Two blow hole in place with #14 Angiocaths. LUNGS: Equal air entry with crackles in the posterior bases, few scattered rhonchi t. CVS: S1 and S2 normal with no audible murmur, regular rhythm. No extra heart sounds ABDOMEN: No hepatosplenomegaly, active bowel sounds, no guarding or rigidity. SPINE: No scoliosis or deformity SKIN: No rashes CENTRAL NERVOUS SYSTEM: No focal deficits, tone is normal in all 4 extremities. EXTREMITIES: Right anterior hip incision is approximated. Full range of motion. Right lower extremity pitting edema. Peripheral pulses are intact. - Labs CBC & Chem 7: 01/14/25 07:36 01/14/25 07:36 Labs: Abnormal Lab Results - Last 24 Hours (Table) 01/13/25 01/13/25 01/14/25 Range/Units 16:30 20:30 01:57 WBC (4.50-10.00) 10*3/uL RBC (4.10-5.20) 10*6/uL Hgb (12.0-15.0) g/dL Hct (37.2-46.3) % Plt Count (140-440) 10*3/uL Immature Gran # (0.00-0.04) 10*3/uL Neutrophils # (1.80-7.70) 10*3/uL Lymphocytes # (0.90-5.00) 10*3/uL Monocytes # (0.20-1.00) 10*3/uL Eosinophils # (0.04-0.35) 10*3/uL Sodium (137-145) mmol/L BUN (7-17) mg/dL Glucose (74-99) mg/dL POC Glucose (mg/dL) 259 H 284 H 269 H (70-110) mg/dL ALT (4-34) U/L Total Protein (6.3-8.2) g/dL Albumin (3.5-5.0) g/dL 01/14/25 01/14/25 01/14/25 Range/Units 06:46 07:20 07:36 WBC 10.94 H (4.50-10.00) 10*3/uL RBC 3.25 L (4.10-5.20) 10*6/uL Hgb 9.8 L (12.0-15.0) g/dL Hct 30.0 L (37.2-46.3) % Plt Count 85 L (140-440) 10*3/uL Immature Gran # 0.06 H (0.00-0.04) 10*3/uL Neutrophils # 9.12 H (1.80-7.70) 10*3/uL Lymphocytes # 0.58 L (0.90-5.00) 10*3/uL Monocytes # 0.16 L (0.20-1.00) 10*3/uL Eosinophils # 1.00 H (0.04-0.35) 10*3/uL Sodium (137-145) mmol/L BUN (7-17) mg/dL Glucose (74-99) mg/dL POC Glucose (mg/dL) 115 H 124 H (70-110) mg/dL ALT (4-34) U/L Total Protein (6.3-8.2) g/dL Albumin (3.5-5.0) g/dL 01/14/25 Range/Units 07:36 WBC (4.50-10.00) 10*3/uL RBC (4.10-5.20) 10*6/uL Hgb (12.0-15.0) g/dL Hct (37.2-46.3) % Plt Count (140-440) 10*3/uL Immature Gran # (0.00-0.04) 10*3/uL Neutrophils # (1.80-7.70) 10*3/uL Lymphocytes # (0.90-5.00) 10*3/uL Monocytes # (0.20-1.00) 10*3/uL Eosinophils # (0.04-0.35) 10*3/uL Sodium 132 L (137-145) mmol/L BUN 43 H (7-17) mg/dL Glucose 106 H (74-99) mg/dL POC Glucose (mg/dL) (70-110) mg/dL ALT 60 H (4-34) U/L Total Protein 5.3 L (6.3-8.2) g/dL Albumin 2.7 L (3.5-5.0) g/dL Microbiology - Last 24 Hours (Table) 01/09/25 15:00 Blood Culture - Preliminary Blood Assessment and Plan Assessment: Acute hypoxemic respiratory failure with CT scan of the chest reveals marked diffuse scattered groundglass opacities consistent with pulmonary edema, ARDS or pneumonia. Moderate cardiomegaly. Procalcitonin negative x 2.The CAT scan of the chest was also consistent with ARDS with secondary complications of bilateral minimal pneumothoraces, pneumomediastinum and subcutaneous emphysema. The patient is currently on IV Solu-Medrol. CHF seems to be quite well optimized and the patient's most recent echocardiogram showed an ejection fraction of 40 to 45%. The patient is also on empiric antibiotic coverage. Cefepime. Chest x-ray findings showing worsening of subcutaneous emphysema. Nevertheless, there is no worsening in the pneumothorax or oxygenation. Remains on Airvo high flow oxygen at 50 L and 55% FiO2. Tiny bilateral pneumothoraces Pneumomediastinum Extensive subcutaneous emphysema secondary to above Acute febrile illness, recovered Acute leukocytosis, improving History of right direct anterior total hip arthroplasty on Nov 24 2024 Acute blood loss anemia, expected outcome of surgery Hypertension History of hyperlipidemia Insulin-dependent diabetes mellitus Obesity with a BMI of 35.4 kg/m Coronary artery disease, with history of CABG and cardiac stents History of ischemic cardiomyopathy with an ejection fraction improved to 40 to 45% Implanted AICD/pacemaker Hypothyroidism Anxiety/depression Poor overall functional performance based on the above-mentioned multiple comorbidities Plan: The patient was seen and evaluated Chest x-ray, labs and medications reviewed Slight improvement in the subcutaneous emphysema Two blow holes in place Currently on Airvo high flow oxygen Antibiotics per infectious disease Continue Solu-Medrol Continue Lasix Continue DuoNeb inhalations Continue Symbicort Heparin for DVT prophylaxis Titrate down the FiO2 as tolerated Increase her activity as tolerated We will continue to follow I have personally seen and examined the patient, performed the documentation and the assessment and plan as written. Number of minutes spent on the visit: 10 Dictation was produced using [employer] dictation software. Please excuse any g rammatical, word or spelling errors.
--- NOTE | 2025-01-14 15:19 | P.PN ---
Subjective Progress Note Date: 01/14/25 Patient is a 74-year-old female with hypertension, hyperlipidemia, DM (insulin- dependent), obesity, CAD status post CABG, ischemic cardiomyopathy (EF 25 to 30% with AICD), asthma, and osteoarthritis here for evaluation of a fall with generalized weakness. Patient reported that she developed shortness of breath, dry cough, chills, bilateral extremity swelling and generalized weakness when she was discharged from rehab on 12/09 from [facility]. She recently had a right direct anterior total hip arthroplasty on 11/24/2024. Since then she has fallen twice at home due to missed steps. She reported that her swelling has improved gradually over the past 2 weeks. On arrival to the ED, she also r eported to have altered mental status. She denied chest pain, palpitations, nausea, vomiting, abdominal pain, extremity swelling, focal weakness, recent prolonged travel. On admission: Vitals: Temp 99 Fahrenheit, ND 99, RR 16, BP 114/60, O2 saturation 89% on room air Labs: WBC 17.4, hemoglobin 9.5, sodium 132, potassium 4.4, bicarb 23, BUN 16, creatinine 0.9, glucose 124, lactic acid 1.8, calcium 8.8, phosphorus 2.4, magnesium 1.7, TSH 6.7. Liver enzymes within normal ranges. Troponin negative. proBNP 3700. Urinalysis unremarkable. Cepheid 4 Plex negative. Urine Legionella antigen negative. Imaging: Chest x-ray showed cardiomegaly with prominent pulmonary vasculature and patchy bilateral lung infiltrates. Hip pelvis x-ray showed no acute osseous abnormalities. EKG showed V paced at a rate of 87, no ST-T changes, QTc 446 MS. 12/20/2024 patient seen and examined at bedside. No acute events overnight. Still requiring oxygen support with 2 to 3 L of nasal cannula. Patient has no symptoms or complaints. Labs: WBC 15.9, hemoglobin 9.3, MCV 93.6, platelet count 371,000, sodium 139, potassium 4.2, bicarb 27, BUN 16, creatinine 1.01, glucose 133, calcium 9.1, Pro-Fortino 0.22. Blood cultures positive for staph mecA/C positive. Imaging; chest x-ray independently interpreted showing improving pulmonary infiltrates 12/21/2024 patient seen and examined at bedside. No acute events overnight. Patient still requiring 2-3L oxygen. Labs: WBC 21.16, hemoglobin 9, MCV 92.9, platelet count 408,000, sodium 137, potassium 4.5, bicarb 30, BUN 29, creatinine 1.28, glucose 172, calcium 9.3, BNP 2180. Blood cultures positive for Staphylococcus epidermidis MEC A positive. Repeat CXR shows minimal improvement 12/22/2024 patient seen and examined at bedside. No acute events overnight. Patient still requiring 3 to 4 L oxygen via nasal cannula Labs: WBC 7.29, hemoglobin 9.4, platelet count 386,000, sodium 136, potassium 4.7, bicarb 28, BUN 37, creatinine 1.06, glucose 176, calcium 8.8 Imaging; echocardiogram showed LVEF 40 to 45% with moderate global hypokinesis, mild mitral and tricuspid regurgitation 12/23/2024 patient seen and examined at bedside. No acute events overnight. Patient oxygen requirements are increasing from 5 to 6 L high flow nasal cannula. Still having dry cough. Labs: WBC 7 point 0.6, hemoglobin 9.2, MCV 93, platelet count 381,000, sodium 130, potassium 4.4, chloride 102, bicarb 28, BUN 45, creatinine 1.11, glucose 96, calcium 9.1. ABG showed PO2 50 pH 7.42 and pCO2 45 Imaging; chest CT shows marked diffuse scattered groundglass opacities consistent with pulmonary edema, ARDS or pneumonia, moderate cardiomegaly, 3.4 cm dilation of the main pulmonary artery 12/24/2024 Patient evaluated in follow-up on the medical floor. Patient remains on oxygen support increased up to 10 L high flow cannula with saturations of 90%. patient is currently on a course of IV Solu-Medrol as well as IV Lasix twice daily. She has completed a course of antibiotics. She is also maintained on a fluid restriction. ID and pulmonology are following this patient closely. Blood culture finalized revealing Staphylococcus epidermidis which is felt to be contaminant species 12/25/2024 patient seen and examined at bedside. Patient in the ICU. Requiring high flow nasal cannula rate of 50 FiO2 55% Labs: WBC 17.9, hemoglobin 9.7, MCV 90.8, platelet count 250,000 sodium 137, potassium 4.8, bicarb 31, creatinine, BUN 49, creatinine 1.16, glucose 224, mag 2.2, calcium 9.1. ABG pH 7.46, pCO2 43, bicarb 66 Imaging; chest x-ray showed so far persistent diffuse increased lung markings present 12/26/2024 patient seen and examined at bedside. Still requiring high flow nasal cannula rate of 50 FiO2 60% Labs: WBC 19.5, hemoglobin 10, chloride 97, bicarb 33, potassium 4.2, sodium 137, creatinine 1.07, BUN 54, glucose 280, calcium 9.3, proBNP 1950, Pro-Fortino less than 0.2 Imaging: Chest x-ray showed stable diffuse interstitial infiltrates 12/27/2024 patient seen and examined at bedside. No acute events overnight. Still in the ICU. Still having dry cough. High flow nasal cannula for O2 support flow rate 50 FiO2 60% Labs: WBC 20.3, hemoglobin 10.6, platelet count 370,000, sodium 139, potassium 4.6, bicarb 33, BUN 59, creatinine 0.99, glucose 175, calcium 9.8 Imaging: Chest x-ray today showed stable pulmonary infiltrates 12/28/2024 patient seen and examined at bedside. No acute events overnight. Still in the ICU. Still requiring high flow nasal cannula rate 50 at 50% FiO2 Labs: WBC 19.6, hemoglobin 10.4, sodium 134, potassium 4, bicarb 33, BUN 66, cr eatinine 1.12, glucose 205, magnesium 2.3 Imaging: Chest x-ray shows stable diffuse interstitial infiltrates 12/29/2024 patient seen and examined at bedside. No acute events overnight. Still in the ICU. No fevers or chills. O2 requirements decreasing. Labs: WBC 26.03, hemoglobin 10.7, sodium 136, bicarb 34, BUN 63, creatinine 1.11, glucose 185, magnesium 2.4 Imaging: Chest x-ray shows improving diffuse pulmonary infiltrates 12/30/2024 patient seen and examined at bedside. No acute events overnight. Downgraded to stepdown unit Currently on high flow nasal cannula 9 L which has improved. Labs: Sodium 136, potassium 4.7, bicarb 23, BUN 65, creatinine 1.2, glucose 186, calcium 9.4 12/31/2024 Patient is resting in the bed. Awake alert and oriented. Breathing status is better. Currently on 9 L oxygen via nasal cannula. No complaints of chest pain or worsening shortness of breath. Laboratory data showed WBC 27.0 hemoglobin 10.5 and platelets 275. Sodium 135 potassium 5.0 chloride 97 bicarb is 32 BUN 66 and creatinine 1.27 and blood sugar 222. 01/01/2025 patient seen and examined at bedside. No new complaints. Still currently on high flow nasal cannula 8 L for O2 support Labs: WBC 24.7, hemoglobin 10.3, sodium 136, potassium 5.1, bicarb 23, BUN 60, creatinine 1.01, glucose 172 Imaging: Chest x-ray today showed persistent pulmonary diffuse interstitial infiltrates 01/02/2025 patient seen and examined at bedside. Patient increased O2 requirements and is currently on Airvo flow 50 FiO2 60% Labs: sodium 136, potassium 5.1 bicarb 33, BUN 60, creatinine 1.01, glucose 172, calcium 9.5 Imaging: Chest x-ray this morning shows ongoing extensive patchy airspace opacities, new subcutaneous emphysema at the right base of the neck 01/03/2025 patient seen and examined at bedside. Patient still on Airvo low flow 50 FiO2 60% Labs: WBC 21.6, hemoglobin 10.3, platelet count 236,000, sodium 135, potassium 5.4, BUN 44, creatinine 0.96, glucose 181, calcium 9.3 Imaging: Chest x-ray today showed increasing subcutaneous emphysema at the left base of the neck with small pneumothorax on the right chest, stable bilateral airspace opacities 01/04/2025 Patient was on high flow oxygen patient is presently on 15 L 50% FiO2. Patient presently has 15% pneumothorax patient had a CT of the chest. Patient has significant subcutaneous emphysema. 01/05/2025 patient seen and examined at bedside. No acute events overnight. Patient currently on high flow nasal cannula flow 50, FiO2 45%. Complaining of chest pressure when coughing. Imaging: Chest x-ray today shows stable right-sided pneumothorax and bilateral subcutaneous neck emphysema with stable bilateral diffuse opacities 01/13. Dr. CHRISTIANSON took over care. Patient is currently lethargic, currently on heated high flow. Family at the bedside. 01/14/2025 Assumed care of this patient today she remains in the cardiac unit. Her chest x-ray today reveals a similar small bilateral pneumothoraces right greater than left, similar mid pneumomediastinum similar diffuse subcutaneous emphysema. Patchy scattered airspace opacities within the lungs suggesting pulmonary edema and/or ARDS. CT surgery following postoperative day #5 placement of blowhole to try and relieve the subcutaneous emphysema with a 14-gauge Accu cath. Patient remains on Airvo with 50% FiO2 and a 50 L high flow rate. Patient did have p ositive blood culture for Staphylococcus epidermidis with repeat being final and negative. She had a repeat blood culture done on January 09 which is currently pending and negative so far. Most recent blood work reveals a white blood cell count 10.94, hemoglobin 9.8, sodium level of 132, BUN of 43 creatinine 0.80. Patient is currently afebrile. REVIEW OF SYSTEMS: Review of system cannot be obtained as patient is very lethargic PHYSICAL EXAMINATION: GENERAL: The patient is alert and oriented x3 ill-looking HEENT: Pupils are round and equally reacting to light. EOMI. No scleral icterus. No conjunctival pallor. Normocephalic, atraumatic. No pharyngeal erythema. No thyromegaly. CARDIOVASCULAR: S1 and S2 present. No murmurs, rubs, or gallops. PULMONARY: Diminished breath sounds at bases, subcutaneous emphysema ABDOMEN: Soft, nontender, nondistended, normoactive bowel sounds. No palpable organomegaly. MUSCULOSKELETAL: No joint swelling or deformity. EXTREMITIES: No cyanosis, clubbing, or pedal edema. NEUROLOGICAL: Gross neurological examination did not reveal any focal deficits. SKIN: No rashes. Assessment and plan Acute hypoxemic respiratory failure ARDS Tiny bilateral pneumothoraces status post bilateral blowholes placed Pneumomediastinum Extensive subcutaneous emphysema secondary to above Acute febrile illness, recovered Acute leukocytosis, improving History of right direct anterior total hip arthroplasty on Nov 24 2024 Acute blood loss anemia, expected outcome of surgery Hypertension History of hyperlipidemia Insulin-dependent diabetes mellitus Obesity with a BMI of 35.4 kg/m Coronary artery disease, with history of CABG and cardiac stents History of ischemic cardiomyopathy with an ejection fraction improved to 40 to 45% Implanted AICD/pacemaker Hypothyroidism Anxiety/depression GI prophylaxis protonix DVT prophylaxis heparin Full Code Plan Monitor vital signs Continue telemetry monitoring Encourage use of incentive spirometer Continue oxygeb supplementation, currently on heated high flow Aggressive bronchopulmonary hygiene Strict I's and O's, daily weights Continue breathing treatment Continue IV Solu-Medrol Currently on IV cefepime Completed course of oral diflucan Continue bowel regimen with lactulose, colace Add dulcolax PRN Add [facility] Pulmonology following CT surgery following Monitor electrolytes and renal function PT/OT consultation The impression and plan of care has been dictated by Karen Baldwin, Nurse Practitioner as directed. Dr. Bekah MD I have performed a history and physical examination and medical decision making of this patient, discussed the same with the dictator, and agree with the dictators assessment and plan as written, documented as a scribe. Based on total visit time, I have performed more than 50% of this visit. Objective - Vital Signs Vital signs: Vital Signs Temp 97.8 F 01/14/25 08:00 Pulse 73 01/14/25 09:28 Resp 22 01/14/25 08:00 BP 115/67 01/14/25 08:00 Pulse Ox 95 01/14/25 09:20 FiO2 55 01/14/25 09:20 Intake & Output 01/13/25 01/14/25 01/14/25 18:59 06:59 18:59 Intake Total 236 Output Total 1500 Balance 236 -1500 Weight 84 kg Intake: Oral 236 Output: Urine 1500 Other: Voiding Method External Catheter External Catheter - Labs CBC & Chem 7: 01/14/25 07:36 01/14/25 07:36 Labs: Abnormal Lab Results - Last 24 Hours (Table) 01/13/25 01/13/25 01/13/25 Range/Units 12:14 16:30 20:30 WBC (4.50-10.00) 10*3/uL RBC (4.10-5.20) 10*6/uL Hgb (12.0-15.0) g/dL Hct (37.2-46.3) % Immature Gran # (0.00-0.04) 10*3/uL Sodium (137-145) mmol/L BUN (7-17) mg/dL Glucose (74-99) mg/dL POC Glucose (mg/dL) 119 H 259 H 284 H (70-110) mg/dL ALT (4-34) U/L Total Protein (6.3-8.2) g/dL Albumin (3.5-5.0) g/dL 01/14/25 01/14/25 01/14/25 Range/Units 01:57 06:46 07:20 WBC (4.50-10.00) 10*3/uL RBC (4.10-5.20) 10*6/uL Hgb (12.0-15.0) g/dL Hct (37.2-46.3) % Immature Gran # (0.00-0.04) 10*3/uL Sodium (137-145) mmol/L BUN (7-17) mg/dL Glucose (74-99) mg/dL POC Glucose (mg/dL) 269 H 115 H 124 H (70-110) mg/dL ALT (4-34) U/L Total Protein (6.3-8.2) g/dL Albumin (3.5-5.0) g/dL 01/14/25 01/14/25 Range/Units 07:36 07:36 WBC 10.94 H (4.50-10.00) 10*3/uL RBC 3.25 L (4.10-5.20) 10*6/uL Hgb 9.8 L (12.0-15.0) g/dL Hct 30.0 L (37.2-46.3) % Immature Gran # 0.06 H (0.00-0.04) 10*3/uL Sodium 132 L (137-145) mmol/L BUN 43 H (7-17) mg/dL Glucose 106 H (74-99) mg/dL POC Glucose (mg/dL) (70-110) mg/dL ALT 60 H (4-34) U/L Total Protein 5.3 L (6.3-8.2) g/dL Albumin 2.7 L (3.5-5.0) g/dL Microbiology - Last 24 Hours (Table) 01/09/25 15:00 Blood Culture - Preliminary Blood Assessment and Plan Time with Patient: Less than 30
[2025-01-14 16:36] LABS: Glucose,Whole Blood 375 mg/dL (70-110)
--- NOTE | 2025-01-14 17:07 | P.PN ---
Subjective Progress Note Date: 01/14/25 Principal diagnosis: Reason for follow-up is a positive blood culture/leukocytosis/thrush Patient is a 74-year-old female with a past medical history significant for Asthma, Blood Disorder, Coronary Artery Disease (CAD), Chest Pain / Angina, Heart Failure, Diabetes Mellitus, Eye Disorder, GERD/Reflux, Hyperlipidemia, Hypertension, Myocardial Infarction (NM), Musculoskeletal Disorder, Osteoarthritis (OA), Renal Disease, Skin Disorder, Supraventricular Tachycardia (SVT), Thyroid Disorder who recently did have a right hip replacement, patient presented the hospital with increasing shortness of breath and cough did have a positive blood culture prompting this consultation. On today's evaluation that is 01/14/2025, Patient is afebrile patient is currently on 50% FiO2 high flow nasal cannula patient was sleepy at the time of evaluation overall seem to be doing slightly better with at the bedside no vomiting or diarrhea has been reported. Patient did have a white count of 10.94, creatinine 0.80 chest x-ray diffuse subcutaneous emphysema pneumomediastinum and bilateral pneumothoraces Objective - Vital Signs Vital signs: Vital Signs Temp 97.5 F L 01/14/25 16:00 Pulse 81 01/14/25 16:00 Resp 20 01/14/25 16:00 BP 115/52 01/14/25 16:00 Pulse Ox 94 L 01/14/25 16:00 FiO2 55 01/14/25 16:00 Intake & Output 01/13/25 01/14/25 01/14/25 18:59 06:59 18:59 Intake Total 236 0 Output Total 1500 Balance 236 -1500 0 Weight 84 kg Intake: Oral 236 0 Output: Urine 1500 Other: Voiding Method External Catheter External Catheter External Catheter # Bowel Movements 1 - Exam GENERAL DESCRIPTION: An elderly female up in the bed in no distress RESPIRATORY SYSTEM: Unlabored breathing , decreased breath sounds at bases HEART: S1 S2 regular rate and rhythm , ABDOMEN: Soft , no tenderness EXTREMITIES: No edema feet - Labs CBC & Chem 7: 01/14/25 07:36 01/14/25 07:36 Labs: Abnormal Lab Results - Last 24 Hours (Table) 01/13/25 01/14/25 01/14/25 Range/Units 20:30 01:57 06:46 WBC (4.50-10.00) 10*3/uL RBC (4.10-5.20) 10*6/uL Hgb (12.0-15.0) g/dL Hct (37.2-46.3) % Plt Count (140-440) 10*3/uL Immature Gran # (0.00-0.04) 10*3/uL Neutrophils # (1.80-7.70) 10*3/uL Lymphocytes # (0.90-5.00) 10*3/uL Monocytes # (0.20-1.00) 10*3/uL Eosinophils # (0.04-0.35) 10*3/uL Sodium (137-145) mmol/L BUN (7-17) mg/dL Glucose (74-99) mg/dL POC Glucose (mg/dL) 284 H 269 H 115 H (70-110) mg/dL ALT (4-34) U/L Total Protein (6.3-8.2) g/dL Albumin (3.5-5.0) g/dL 01/14/25 01/14/25 01/14/25 Range/Units 07:20 07:36 07:36 WBC 10.94 H (4.50-10.00) 10*3/uL RBC 3.25 L (4.10-5.20) 10*6/uL Hgb 9.8 L (12.0-15.0) g/dL Hct 30.0 L (37.2-46.3) % Plt Count 85 L (140-440) 10*3/uL Immature Gran # 0.06 H (0.00-0.04) 10*3/uL Neutrophils # 9.12 H (1.80-7.70) 10*3/uL Lymphocytes # 0.58 L (0.90-5.00) 10*3/uL Monocytes # 0.16 L (0.20-1.00) 10*3/uL Eosinophils # 1.00 H (0.04-0.35) 10*3/uL Sodium 132 L (137-145) mmol/L BUN 43 H (7-17) mg/dL Glucose 106 H (74-99) mg/dL POC Glucose (mg/dL) 124 H (70-110) mg/dL ALT 60 H (4-34) U/L Total Protein 5.3 L (6.3-8.2) g/dL Albumin 2.7 L (3.5-5.0) g/dL 01/14/25 Range/Units 16:34 WBC (4.50-10.00) 10*3/uL RBC (4.10-5.20) 10*6/uL Hgb (12.0-15.0) g/dL Hct (37.2-46.3) % Plt Count (140-440) 10*3/uL Immature Gran # (0.00-0.04) 10*3/uL Neutrophils # (1.80-7.70) 10*3/uL Lymphocytes # (0.90-5.00) 10*3/uL Monocytes # (0.20-1.00) 10*3/uL Eosinophils # (0.04-0.35) 10*3/uL Sodium (137-145) mmol/L BUN (7-17) mg/dL Glucose (74-99) mg/dL POC Glucose (mg/dL) 375 H (70-110) mg/dL ALT (4-34) U/L Total Protein (6.3-8.2) g/dL Albumin (3.5-5.0) g/dL Assessment and Plan (1) Positive blood culture Current Visit: Yes Status: Acute Code(s): R78.81 - BACTEREMIA SNOMED Code(s): 988972547 (2) Leukocytosis Current Visit: Yes Status: Acute Code(s): D72.829 - ELEVATED WHITE BLOOD CELL COUNT, UNSPECIFIED SNOMED Code(s): 511258321 (3) Oropharyngeal candidiasis Current Visit: Yes Status: Acute Code(s): B37.0 - CANDIDAL STOMATITIS SNOMED Code(s): 34427045 Plan: 1patient with a positive blood culture with staph epi which is more likely skin contamination this patient who recently did have a right hip replacement however the right hip surgical site incision is currently healed with no cellulitis and the patient denies having any pain to the right hip area, no need for vancomycin however blood culture has been repeated which has been negative 2the patient has developed significant subcutaneous emphysema patient is status post placement of below holes to try to relieve the subcutaneous emphysema with a 14-gauge Angiocath by CT surgery and patient did have initial improvement but now seem to have worsening CT surgery is following the patient 3-patient is afebrile white count is almost normalized overall face puffiness seems to have improved after replacement of 14-gauge Angiocath bur holes by CT surgery on 01/13/2025 Dictation was produced using [employer] dictation software. please excuse any grammatical, word or spelling errors. Time with Patient: Less than 30
[2025-01-14 20:28] LABS: Glucose,Whole Blood 361 mg/dL (70-110)
[2025-01-15 01:41] LABS: Glucose,Whole Blood 240 mg/dL (70-110)
[2025-01-15 06:09] LABS: Glucose,Whole Blood 111 mg/dL (70-110)
--- NOTE | 2025-01-15 07:04 | XR ---
EXAMINATION TYPE: XR chest 1V portable DATE OF EXAM: 01/15/2025 6:57 AM COMPARISON: Multiple radiographs, with the most recent on 01/14/2025 TECHNIQUE: XR chest 1V portable Portable AP radiograph of the chest. CLINICAL INDICATION:Female, 74 years old with history of Subcutaneous emphysema; FINDINGS: Lungs/Pleura: Previously seen left pneumothorax is not well-visualized. Similar small right pneumotho rax. Scattered airspace opacities throughout the lungs again. No pleural effusion. Pulmonary vascularity: Unremarkable. Heart/mediastinum: Cardiomediastinal silhouette is enlarged. Pneumomediastinum redemonstrated. Three lead cardiac conduction device overlying the left hemithorax with lead tips projecting over the righ t ventricle, right atrium and coronary sinus. Musculoskeletal: No acute osseous pathology. Midline sternotomy wires are noted. Other findings: Slightly decreased diffuse subcutaneous emphysema scattered throughout the visualized thorax and visualized neck. IMPRESSION: 1. Similar small right pneumothorax with previously seen left pneumothorax not well visualized. 2. Similar pneumomediastinum. 3. Slightly decreased diffuse subcutaneous emphysema. 4. Patchy scattered airspace opacities within the lungs suggesting pulmonary edema and/or ARDS. [facility], , 01/15/2025 7:01 AM
[2025-01-15 07:31] LABS: Basophils # (A) 0.01 10*3/uL (0.00-0.10); Basophils % (A) 0.1 %; Eosinophils # (A) 0.86 10*3/uL (0.04-0.35); Eosinophils % (A) 9.7 %; HCT 30.3 % (37.2-46.3); HGB 9.9 g/dL (12.0-15.0); Lymphocytes # (A) 0.55 10*3/uL (0.90-5.00); Lymphocytes % (A) 6.2 %; MCH 29.9 pg (27.0-32.0); MCHC 32.7 g/dL (32.0-37.0); MCV 91.5 fL (80.0-97.0); Monocytes # (A) 0.14 10*3/uL (0.20-1.00); Monocytes % (A) 1.6 %; Neutrophils # (A) 7.27 10*3/uL (1.80-7.70); Neutrophils % (A) 81.7 %; RBC 3.31 10*6/uL (4.10-5.20); RDW 16.4 % (11.5-14.5); WBC 8.89 10*3/uL (4.50-10.00)
[2025-01-15 07:51] LABS: Platelet Count 80 10*3/uL (140-440)
[2025-01-15 08:00] LABS: African American GFR (CKD) >90 (>60 ml/min/1.73 sqM); Anion Gap 4 mmol/L; Blood Urea Nitrogen 41 mg/dL (7-17); Calcium 9.7 mg/dL (8.4-10.2); Carbon Dioxide 27 mmol/L (22-30); Chloride 102 mmol/L (98-107); Glucose 106 mg/dL (74-99); Magnesium 2.1 mg/dL (1.6-2.3); Non-African American GFR(CKD) 79 (>60 ml/min/1.73 sqM); Potassium 4.5 mmol/L (3.5-5.1); Sodium 133 mmol/L (137-145)
--- NOTE | 2025-01-15 09:31 | P.PN ---
Subjective Progress Note Date: 01/15/25 Principal diagnosis: Extensive subcutaneous emphysema. Past medical history significant for coronary artery disease with previous PCI and CABG, ischemic cardiomyopathy status post AICD placement, hypertension, hyperlipidemia, insulin-dependent diabetes, hypothyroid. Status post day #6 placement of below holes to try to relieve the subcutaneous emphysema with a 14-gauge Angiocath. The patient was seen and examined in follow-up today January 15, 2025 at her bedside on the third floor cardiac stepdown unit. She is currently laying in bed, rebounded to Airvo with oxygen saturations 99%, FiO2 55% and flow rate 50. She is achieving 500 mL on her incentive spirometry with encouragement. 14-gauge Angiocath's remain in place, being used as a blow holes for her subcutaneous em physema. Chest x-ray results reviewed. Objective - Vital Signs Vital signs: Vital Signs Temp 97.6 F 01/15/25 08:29 Pulse 67 01/15/25 08:29 Resp 20 01/15/25 08:29 BP 127/75 01/15/25 08:29 Pulse Ox 96 01/15/25 08:29 FiO2 55 01/15/25 08:29 Intake & Output 01/14/25 01/15/25 01/15/25 18:59 06:59 18:59 Intake Total 0 540 10 Output Total 550 500 Balance -550 40 10 Weight 89 kg Intake: IV 10 Invasive Line 9 10 Oral 0 540 Output: Urine 550 500 Other: Voiding Method External Catheter External Catheter External Catheter # Voids 1 # Bowel Movements 1 1 - Exam CONSTITUTIONAL: Appears comfortable, cooperative, no acute distress. RESPIRATORY: Lungs sounds diminished throughout bilaterally. Respirations even, nonlabored. Currently on Airvo with FiO2 55% and flow rate 50 with oxygen saturation 96%. Able to achieve 500 mL on incentive spirometry. Strong cough. CARDIOVASCULAR: S1, S2 present. Regular rate and rhythm, V paced rhythm on telemetry. Palpable peripheral pulses bilaterally. No edema present. No calf pain or tenderness noted. GASTROINTESTINAL: Abdomen soft, nontender, nondistended. Active bowel sounds present 4 quadrants. Tolerating diet. GENITOURINARY: Continues to void clear, yellow urine. INTEGUMENTARY: Skin is warm and dry with evidence of good perfusion. Diffuse subcutaneous emphysema to her chest, back and neck. Subcutaneous emphysema improving. NEUROLOGIC: Cranial nerves II through XII intact. No focal deficits. MUSKULOSKELETAL: Able to move all extremities, strength equal bilaterally, generalized weakness. PSYCHIATRIC: Alert and oriented to person place and time, appropriate affect, intact judgment and insight. - Allied health notes Allied health notes reviewed: nursing - Labs CBC & Chem 7: 01/15/25 06:51 01/15/25 06:51 Labs: Abnormal Lab Results - Last 24 Hours (Table) 01/14/25 01/14/25 01/14/25 Range/Units 07:36 16:34 20:27 RBC (4.10-5.20) 10*6/uL Hgb (12.0-15.0) g/dL Hct (37.2-46.3) % Plt Count 85 L (140-440) 10*3/uL Immature Gran # (0.00-0.04) 10*3/uL Neutrophils # 9.12 H (1.80-7.70) 10*3/uL Lymphocytes # 0.58 L (0.90-5.00) 10*3/uL Monocytes # 0.16 L (0.20-1.00) 10*3/uL Eosinophils # 1.00 H (0.04-0.35) 10*3/uL Sodium (137-145) mmol/L BUN (7-17) mg/dL Glucose (74-99) mg/dL POC Glucose (mg/dL) 375 H 361 H (70-110) mg/dL 01/15/25 01/15/25 01/15/25 Range/Units 01:39 06:08 06:51 RBC 3.31 L (4.10-5.20) 10*6/uL Hgb 9.9 L (12.0-15.0) g/dL Hct 30.3 L (37.2-46.3) % Plt Count 80 L (140-440) 10*3/uL Immature Gran # 0.06 H (0.00-0.04) 10*3/uL Neutrophils # (1.80-7.70) 10*3/uL Lymphocytes # 0.55 L (0.90-5.00) 10*3/uL Monocytes # 0.14 L (0.20-1.00) 10*3/uL Eosinophils # 0.86 H (0.04-0.35) 10*3/uL Sodium (137-145) mmol/L BUN (7-17) mg/dL Glucose (74-99) mg/dL POC Glucose (mg/dL) 240 H 111 H (70-110) mg/dL 01/15/25 Range/Units 06:51 RBC (4.10-5.20) 10*6/uL Hgb (12.0-15.0) g/dL Hct (37.2-46.3) % Plt Count (140-440) 10*3/uL Immature Gran # (0.00-0.04) 10*3/uL Neutrophils # (1.80-7.70) 10*3/uL Lymphocytes # (0.90-5.00) 10*3/uL Monocytes # (0.20-1.00) 10*3/uL Eosinophils # (0.04-0.35) 10*3/uL Sodium 133 L (137-145) mmol/L BUN 41 H (7-17) mg/dL Glucose 106 H (74-99) mg/dL POC Glucose (mg/dL) (70-110) mg/dL - Imaging and Cardiology Chest x-ray: report reviewed, image reviewed Assessment and Plan Assessment: Extensive subcutaneous emphysema extending upper chest, neck, face, status post placement of 2 angio cath 14-gauge subclavicular acting as blowhole's Bilateral tiny pneumothoraces, pneumomediastinum found on CT Pneumonia Acute hypoxic respiratory failure secondary to above History of coronary artery disease with previous PCI and CABG Ischemic cardiomyopathy status post AICD placement Hypertension Hyperlipidemia Insulin-dependent diabetes Hypothyroid Plan: Keep left 14-gauge Angiocath in place as blow hole's Continue to monitor daily chest x-rays. Encourage use of incentive spirometry 10 times every hour while awake. Increase activity as tolerated. Medical management of other comorbidities per internal medicine, pulmonary critical care service, and infectious disease. More recommendations to follow based on patient's clinical course. Time with Patient: Less than 30
[2025-01-15 12:18] LABS: Glucose,Whole Blood 253 mg/dL (70-110)
--- NOTE | 2025-01-15 14:47 | P.PN ---
Subjective Progress Note Date: 01/15/25 Patient is a 75-year-old female with past medical history significant for hypertension, hyperlipidemia, insulin-dependent diabetes mellitus, obesity, coronary artery disease with previous CABG, ischemic cardiomyopathy with an ejection fraction of 25 to 30% with AICD, asthma, and osteoarthritis. Of note, patient recently underwent right direct anterior total hip arthroplasty on 11/24/2024. She was discharged from the hospital to [facility] for rehabilitation. While at the outside facility, developed shortness of breath, coughing, and generalized weakness. States she was released from [facility] to home last Wednesday on November. Since then, she has fallen twice while at home. Brought in by EMS yesterday evening hypoxic and confused. She was placed on supplemental oxygen. Workup in the emergency department including a chest x-ray showing patchy bilateral lung infiltrates concerning for congestive heart failure or atypical pneumonias. CBC: WBC count 14.7, hemoglobin 9.5 g/dL, platelets 374. BMP: Sodium 132, potassium 4.4, chloride 100, serum bicarb 23, BUN 16, creatinine 0.92, glucose 124. Lactic 1.8. LFTs unremarkable. Troponin less than 0.012. NT proBNP 6.74. Viral 4 Plex negative for influenza A/B, RSV, COVID. Urinalysis unremarkable for UTI. Patient currently being evaluated on the general medical floor. She is alert and oriented x 3. Endorses above menti oned complaints. Does report history of asthma. Has had increased work of breathing over the last couple weeks. Suffering from persistent nonproductive cough over the same timeframe. States her symptoms actually started at [facility]. She has had a poor appetite with occasional nausea and vomiting. She has been able to take some of her home medications. Has had intermittent fevers with a Tmax of 100.8 F. Was started on empiric antibiotics in the ED, in the form azithromycin and Rocephin. Normal saline infusing at 50 mL/h. Denies any chest pain. Does endorse unilateral right lower lower extremity edema. No heart palpitations, syncopal events, hemoptysis. Current vital signs: Temperature 100.8 F, heart rate 95 bpm, blood pressure 124/54 mmHg, nontachypneic, SpO2 recorded at 96% on 3 L/min nasal cannula. The patient is seen today December 20, 2024 and follow-up on the regular medical floor. She is currently sitting up in bed. Awake and alert in no acute distress. Feeling a bit better today compared to yesterday. Maintaining O2 saturations in the 90s on 3 L/min per nasal cannula. Chest x-ray shows continued infiltrate of the right lung with improvement in the left lung. Blood culture is coming back positive. ID pending. White count 15.9. Hemoglobin 9.3. Platelets 371. Sodium 139. Potassium 4.2. Bicarb 27. BUN 16. Creatinine 1.01. Glucose 133. She remains on DuoNeb inhalations, IV Solu- Medrol, IV diuretics. Lovenox for DVT prophylaxis. Antibiotics in the form of ceftriaxone. The patient is seen today December 21, 2024 in follow-up on the regular medical floor. She is currently sitting up in a chair. Awake and alert in no acute distress. Maintaining O2 saturations in the 90s on 3 L/min per nasal cannula. She has been afebrile. Hemodynamically stable. Blood cultures showing staph epidermidis, most likely contaminant. White count 21.1. Hemoglobin 9.0. Platelets 409. Sodium 137. Potassium 4.5. Bicarb 30. BUN 29. Creatinine 1. 28. Glucose 172. proBNP 2180. She remains on DuoNeb inhalations, Solu-Medrol. Antibiotics in the form of ceftriaxone. Lovenox for DVT prophylaxis. Remains on IV diuretics. No accurate intake and output recorded. Chest x-ray showing similar findings with basilar infiltrates right greater than left. The patient is seen today December 22, 2024 in follow-up on the regular medical floor. She is sitting up at the bedside. Awake and alert in no acute distress. She has been slow to progress. She is still dyspneic with minimal exertion. Dyspneic with conversation. She is maintaining O2 saturations in the 90s on 7 L high flow nasal cannula. Echocardiogram reveals impaired left ventricular systolic function with an ejection fraction [address] scan of the chest revealed marked diffuse scattered groundglass opacities consistent with pulmonary edema, ARDS or pneumonia. AICD in place. Blood culture positive for Staphylococcus epidermidis. White count 17.9. Hemoglobin 9.4. Platelets 386. Sodium 136. Potassium 4.7. Bicarb 28. BUN 37. Creatinine 1.06. Glucose 176. She remains on DuoNeb inhalations, Solu-Medrol. Remains on oral diuretics. Antibiotics in the form of ceftriaxone. Heparin for DVT prophylaxis. The patient is seen today December 23, 2024 in follow-up on the regular medical floor. She is currently resting in bed. Awake and alert in no acute distress. Feeling a bit better today compared to yesterday. She is maintaining O2 saturations in the 90s on 6 L high flow nasal cannula. She remains afebrile. Hemodynamically stable. Initial blood cultures showing staph epidermidis. Follow-up blood culture reveals no growth. White count 17.6. Hemoglobin 9.2. Platelets 381. Sodium 138. Potassium 4.4. Bicarb 28. BUN 45. Creatinine 1.11. Glucose 115. Arterial blood gases on 44% FiO2 revealed a PO2 of 50, [id number] and a pH of 7.42. She remains on DuoNeb inhalations, Solu-Medrol and Robitussin as needed. Heparin for DVT prophylaxis. She remains on Lasix 40 mg every 12 hours. No accurate intake and output recorded. The patient is seen today December 24, 2024 in follow-up on the regular medical floor. She is awake and alert in no acute distress. Resting in bed. No worsening shortness of breath, cough or congestion. She is still requiring 10 L high flow nasal cannula to maintain O2 saturations in the 90s. Lung sounds improved. Blood cultures were positive for Staphylococcus epidermidis. Most likely a contaminant. Follow-up blood culture revealed no growth. Glucose 233. She remains on DuoNeb inhalations, Symbicort, Solu-Medrol. She remains on IV Lasix. Heparin for DVT prophylaxis. Currently in a -1.9 L balance. The patient is seen today December 25, 2024 in follow-up in the intensive care unit. She was transferred down here last evening after having issues with worsening hypoxemia. She is currently on Airvo high flow oxygen at 50 L and 50% FiO2. She is afebrile. Hemodynamically stable. Chest x-ray continues to show cardiomegaly with pulmonary vascular congestion and bilateral pleural effusions. Follow-up blood culture revealed no growth. White count 17.9. Hemoglobin 9.7. Platelets 350. Sodium 137. Potassium 4.8. Bicarb 31. BUN 49. Creatinine 1.16. Glucose 224. She remains on DuoNeb inhalations, Symbicort, Solu-Medrol. Heparin for DVT prophylaxis. She remains on Lasix 40 mg IV every 12 hours. C urrently in a -4 L balance. The patient is seen today December 26, 2024 in follow-up in the intensive care unit. She is currently sitting up in bed. Awake and alert in no acute distress. Feeling a bit better today compared to yesterday. She is still high flow oxygen at 50 L and 60% FiO2. No IV fluids. She has been afebrile. Hemodynamically stable. Chest x-ray continues to show diffuse infiltrates bilaterally right greater than left. Follow-up blood culture reveals no growth. White count 1 9.5. Hemoglobin 10.0. Platelets 359. Sodium 137. Potassium 4.2. Bicarb 33. BUN 54. Creatinine 1.07. Glucose 280. Continued on Lasix 40 mg IV every 12 hours. Currently net -3.3 L balance. She remains on DuoNeb and elations, Symbicort, Solu-Medrol. Robitussin for her cough. The patient is seen today December 28, 2024 in follow-up in the intensive care unit. She is awake and alert in no acute distress. Sitting up in bed. Remains on Airvo high flow oxygen at 50 L and 50% FiO2. No IV fluids. Chest x-ray is showing fluid volume overload but improving. Initial blood culture positive for staph epidermidis. Follow-up blood culture revealed no growth. White count 19.6. Hemoglobin 10.4. Platelets 352. Sodium 134. Potassium 4.0. Bicarb 33. BUN 66. Creatinine 1.12. Glucose 205. She is continued on DuoNeb inhalations, Symbicort, Solu-Medrol. Heparin for DVT prophylaxis. She remains on Lasix 40 mg IV every 12 hours. Currently in a -700 mL balance. The patient is seen today December 29, 2024 in follow-up in the intensive care unit. She is currently sitting up in bed. Awake and alert in no acute distress. Deny any worsening shortness of breath, cough or congestion. Feeling better. She is now on 8 L high flow nasal cannula. Chest x-ray continues to show improvement. White count 26.0. Hemoglobin 10.7. Platelets 352. Sodium 136. Potassium 4.3. Bicarb 34. BUN 63. Creatinine 1.11. Glucose 185. She remains on DuoNeb inhalations, Symbicort, Solu-Medrol. Heparin for DVT prophylaxis. Continued on Lasix 40 mg every 12 hours. Currently in a -700 mL balance. The patient is seen today January 08, 2025 in follow-up on the selective care unit. She is currently sitting up in bed. Awake and alert in no acute distress. She had developed extensive subcutaneous emphysema for chest and neck and face. She remains on Airvo high flow oxygen at 50 L and 45% FiO2. Chest x-ray shows similar small bilateral pneumothoraces. Similar pneumomediastinum. Similar diffuse subcutaneous emphysema. Patchy scattered airspace opacity within the lungs suggesting pulmonary edema and/or ARDS. Follow-up blood culture revealed no growth. White count 16.7. Hemoglobin 10.5. Platelets 165. Sodium 134. Potassium 4.6. Bicarb 25. BUN 36. Creatinine 0.77. Glucose 134. She remains on DuoNeb inhalations, Symbicort, Solu-Medrol. Heparin for DVT prophylaxis. Remains on diuretics. Remains on cefepime. The patient is seen today January 09, 2025 in follow-up on the selective care unit. She is awake and alert in no acute distress. Sitting up in bed. Her subcutane ous emphysema is worsening. Her eyes are swollen shut now. CT services are planning to place blow holes today. She remains on Airvo high flow oxygen at 50 L and 45% FiO2. Chest x-ray continues to show similar small bilateral pneumothoraces. Similar pneumomediastinum. Similar diffuse subcutaneous emphysema. Patchy scattered airspace opacities within the lung suggesting pulmonary edema and/or ARDS. Follow-up blood culture revealed no growth. White count 17.3. Hemoglobin 10.7. Platelets 160. Sodium 135. Potassium 4.5. Bicarb 23. BUN 39. Creatinine 0.78. Glucose 193. She remains on DuoNeb and elations, Symbicort, Solu-Medrol. Heparin for DVT prophylaxis. Remains on oral diuretics. Remains on cefepime and Diflucan. The patient is seen today January 10, 2025 in follow-up on the selective care unit. She is currently sitting up in bed. Awake and alert in no acute distress. D oing better today compared to yesterday. She did have two blow hole's placed. Her subcutaneous emphysema has improved. She is able to open her eyes. No worsening shortness of breath, cough or congestion. Continued on Airvo high flow oxygen at 50 L and 44% FiO2. She remains on DuoNeb inhalations, Symbicort, IV Solu-Medrol. Heparin for DVT prophylaxis. Remains on oral diuretics. Remains on cefepime. Chest x-ray shows similar small bilateral pneumothoraces. Similar pneumomediastinum. Similar diffuse subcutaneous emphysema. Patchy scattered airspace opacities bilaterally. White count 16.3. Hemoglobin 10.9. Platelets 142. Sodium 133. Potassium 5.2. Bicarb 24. BUN 40. Creatinine 0.65. Glucose 140. The patient is seen today January 11, 2025 in follow-up on the selective care unit. She is currently awake and alert in no acute distress. Sitting up in bed. Still showing improvement in the subcutaneous emphysema. She is maintaining O2 saturations in the 90s on Airvo high flow oxygen at 50 L and 55% FiO2. She has been afebrile. Hemodynamically stable. Chest x-ray continues to show similar small bilateral pneumothoraces with similar pneumomediastinum. Similar diffuse subcutaneous emphysema. Patchy scattered airspace opacities continue. Initial blood culture showing Staphylococcus epidermidis. Follow-up blood cultures x 2 revealed no growth. White count 15.7. Hemoglobin 10.2. Platelets 121. Sodium 130. Potassium 5.2. Bicarb 23. BUN 45. Creatinine 0.75. Glucose 324. She remains on DuoNeb inhalations, Symbicort, Solu-Medrol. Heparin for DVT prophyla xis. Remains on cefepime. Remains on diuretics. The patient is seen today January 12, 2025 in follow-up on the selective care unit. She is currently sitting up in bed. Awake and alert in no acute distress. Feeling better today compared to yesterday. She has less subcutaneous emphysema. Denies any worsening shortness of breath, cough or congestion. She remains on Airvo high flow oxygen at 50 L and 50% FiO2. She is continued on DuoNeb inhalations, Symbicort, Solu-Medrol. Remains on oral diuretics. Remains on cefepime. Remains on Diflucan. Heparin for DVT prophylaxis. Follow-up blood cultures revealed no growth. White count 14.4. Hemoglobin 10.1. Platelets 110. Sodium 130. Potassium 5.3. Bicarb 26. BUN 41. Creatinine 0.69. Glucose 145. Today's chest x-ray is showing similar small bilateral pneumothoraces. Similar pneumomediastinum. Similar diffuse subcutaneous emphysema. Some improvement in the patchy scattered airspace opacities. The patient is seen today January 13, 2025 in follow-up on the selective care unit. She is awake and alert in no acute distress. Her subcutaneous emphysema appears worse today with her left eye swollen shut. New blow holes placed with #[address] services. She remains on Airvo high flow oxygen at 50 L and 50% FiO2 with O2 saturation at 95%. She has been afebrile. Hemodynamically stable. Chest x-ray continues to show small bilateral pneumothoraces. Similar pneumomediastinum. Diffuse subcutaneous emphysema. Patchy airspace opacities. Blood culture reveals no growth. White count 16.8. Hemoglobin 9.7. Platelets 122. Sodium 133. Potassium 4.8. BUN 44. Creatinine 0.82. Glucose 177. The patient is seen today January 14, 2025 in follow-up on the selective care unit. She is currently sitting up in bed. Awake and alert in no acute distress. Her subcutaneous emphysema is improved today compared to yesterday. Both of her eyes are open. She denies any worsening shortness of breath, cough or congestion. She is still requiring Airvo high flow oxygen at 50 L and 55% FiO2 to maintain O2 saturations in the 90s. Blood cultures revealed no growth. White count 10.9. Hemoglobin 9.8. Platelets 85,000. Sodium 132. Potassium 4.6. Bicarb 26. BUN 43. Creatinine 0.8. Glucose 106. AST 30. ALT 60. Mela st x-ray shows small bilateral pneumothoraces right greater than left. Pneumomediastinum. Diffuse subcutaneous emphysema. Patchy scattered airspace opacities. She is continued on DuoNeb inhalations, Symbicort, Solu-Medrol. Heparin for DVT prophylaxis. Remains on oral diuretics. Remains on cefepime. The patient is seen today January 15, 2025 in follow-up on the selective care unit. She is currently sitting up in bed. Awake and alert in no acute distress. She remains on Airvo high flow oxygen at 50 L and 55% FiO2 with O2 saturations in the 90s. Follow-up chest x-ray continues to show similar right pneumothorax with previously seen left pneumothorax not well-visualized. Similar pneumom ediastinum. Slightly decreased diffuse subcutaneous emphysema. Continued patchy airspace opacities concerning for ARDS. Blood cultures revealed no growth. White count 8.8. Hemoglobin 9.9. Platelets 80,000. Sodium 133. Potassium 4.5. Bicarb 27. BUN 41. Creatinine 0.76. Glucose 106. She remains on DuoNeb inhalations, Symbicort, Solu-Medrol. Completed cefepime. Heparin for DVT prophylaxis. Remains on oral diuretics. Objective - Vital Signs Vital signs: Vital Signs Temp 98.7 F 01/15/25 11:17 Pulse 71 01/15/25 13:06 Resp 20 01/15/25 11:17 BP 110/65 01/15/25 11:17 Pulse Ox 90 L 01/15/25 13:00 FiO2 50 01/15/25 13:00 Intake & Output 01/14/25 01/15/25 01/15/25 18:59 06:59 18:59 Intake Total 0 540 190 Output Total 550 500 600 Balance -550 40 -410 Weight 89 kg Intake: IV 10 Invasive Line 9 10 Oral 0 540 180 Output: Urine 550 500 600 Other: Voiding Method External Catheter External Catheter External Catheter # Voids 1 # Bowel Movements 1 1 - Exam GENERAL EXAM: Alert, 74-year-old female, sitting up in bed, on Airvo high flow oxygen at 50 L and 55% FiO2, in no acute distress. HEAD: Evidence of subcutaneous emphysema over face EYES: Improved subcutaneous emphysema NOSE: Clear with pink turbinates. THROAT: No erythema or exudates. NECK: No masses, no JVD. CHEST: Improved subcutaneous emphysema. Left chest implanted device. Two blow hole in place with #14 Angiocaths. LUNGS: Equal air entry with crackles in the posterior bases, few scattered rhonchi t. CVS: S1 and S2 normal with no audible murmur, regular rhythm. No extra heart sounds ABDOMEN: No hepatosplenomegaly, active bowel sounds, no guarding or rigidity. SPINE: No scoliosis or deformity SKIN: No rashes CENTRAL NERVOUS SYSTEM: No focal deficits, tone is normal in all 4 extremities. EXTREMITIES: Right anterior hip incision is approximated. Full range of motion. Right lower extremity pitting edema. Peripheral pulses are intact. - Labs CBC & Chem 7: 01/15/25 06:51 01/15/25 06:51 Labs: Abnormal Lab Results - Last 24 Hours (Table) 01/14/25 01/14/25 01/15/25 Range/Units 16:34 20:27 01:39 RBC (4.10-5.20) 10*6/uL Hgb (12.0-15.0) g/dL Hct (37.2-46.3) % Plt Count (140-440) 10*3/uL Immature Gran # (0.00-0.04) 10*3/uL Lymphocytes # (0.90-5.00) 10*3/uL Monocytes # (0.20-1.00) 10*3/uL Eosinophils # (0.04-0.35) 10*3/uL Sodium (137-145) mmol/L BUN (7-17) mg/dL Glucose (74-99) mg/dL POC Glucose (mg/dL) 375 H 361 H 240 H (70-110) mg/dL 01/15/25 01/15/25 01/15/25 Range/Units 06:08 06:51 06:51 RBC 3.31 L (4.10-5.20) 10*6/uL Hgb 9.9 L (12.0-15.0) g/dL Hct 30.3 L (37.2-46.3) % Plt Count 80 L (140-440) 10*3/uL Immature Gran # 0.06 H (0.00-0.04) 10*3/uL Lymphocytes # 0.55 L (0.90-5.00) 10*3/uL Monocytes # 0.14 L (0.20-1.00) 10*3/uL Eosinophils # 0.86 H (0.04-0.35) 10*3/uL Sodium 133 L (137-145) mmol/L BUN 41 H (7-17) mg/dL Glucose 106 H (74-99) mg/dL POC Glucose (mg/dL) 111 H (70-110) mg/dL 01/15/25 Range/Units 12:17 RBC (4.10-5.20) 10*6/uL Hgb (12.0-15.0) g/dL Hct (37.2-46.3) % Plt Count (140-440) 10*3/uL Immature Gran # (0.00-0.04) 10*3/uL Lymphocytes # (0.90-5.00) 10*3/uL Monocytes # (0.20-1.00) 10*3/uL Eosinophils # (0.04-0.35) 10*3/uL Sodium (137-145) mmol/L BUN (7-17) mg/dL Glucose (74-99) mg/dL POC Glucose (mg/dL) 253 H (70-110) mg/dL Microbiology - Last 24 Hours (Table) 01/09/25 15:00 Blood Culture - Final Blood Assessment and Plan Assessment: Acute hypoxemic respiratory failure with CT scan of the chest reveals marked diffuse scattered groundglass opacities consistent with pulmonary edema, ARDS or pneumonia. Moderate cardiomegaly. Procalcitonin negative x 2.The CAT scan of the chest was also consistent with ARDS with secondary complications of bilateral minimal pneumothoraces, pneumomediastinum and subcutaneous emphysema. The patient is currently on IV Solu-Medrol. CHF seems to be quite well optimized and the patient's most recent echocardiogram showed an ejection fraction of 40 to 45%. Completed cefepime. Chest x-ray findings showing worsening of subcutaneous emphysema. Nevertheless, there is no worsening in the pneumothorax or oxygenation. Remains on Airvo high flow oxygen at 50 L and 55% FiO2 Tiny bilateral pneumothoraces Pneumomediastinum Extensive subcutaneous emphysema secondary to above Acute febrile illness, recovered Acute leukocytosis, improving History of right direct anterior total hip arthroplasty on Nov 24 2024 Acute blood loss anemia, expected outcome of surgery Hypertension History of hyperlipidemia Insulin-dependent diabetes mellitus Obesity with a BMI of 35.4 kg/m Coronary artery disease, with history of CABG and cardiac stents History of ischemic cardiomyopathy with an ejection fraction improved to 40 to 45% Implanted AICD/pacemaker Hypothyroidism Anxiety/depression Poor overall functional performance based on the above-mentioned multiple comorbidities Plan: The patient was seen and evaluated Chest x-ray, labs and medications reviewed Slight improvement in the subcutaneous emphysema Slight improvement in the left-sided pneumothorax Two blow holes remain in place Currently on Airvo high flow oxygen Continue Solu-Medrol Continue Lasix Continue DuoNeb inhalations Continue Symbicort Heparin for DVT prophylaxis Titrate down the FiO2 as tolerated Increase her activity as tolerated We will continue to follow I have personally seen and examined the patient, performed the documentation and the assessment and plan as written. Number of minutes spent on the visit: 10 Dictation was produced using [employer] dictation software. Please excuse any grammatical, word or spelling errors.
[2025-01-15 17:24] LABS: Glucose,Whole Blood 295 mg/dL (70-110)
--- NOTE | 2025-01-15 18:50 | P.PN ---
Subjective Progress Note Date: 01/15/25 Patient is a 74-year-old female with hypertension, hyperlipidemia, DM (insulin- dependent), obesity, CAD status post CABG, ischemic cardiomyopathy (EF 25 to 30% with AICD), asthma, and osteoarthritis here for evaluation of a fall with generalized weakness. Patient reported that she developed shortness of breath, dry cough, chills, bilateral extremity swelling and generalized weakness when she was discharged from rehab on 12/09 from [facility]. She recently had a right direct anterior total hip arthroplasty on 11/24/2024. Since then she has fallen twice at home due to missed steps. She reported that her swelling has improved gradually over the past 2 weeks. On arrival to the ED, she also reported to have altered mental status. She denied chest pain, palpitations, nausea, vomiting, abdominal pain, extremity swelling, focal weakness, recent prolonged travel. On admission: Vitals: Temp 99 Fahrenheit, NC 99, RR 16, BP 114/60, O2 saturation 89% on room air Labs: WBC 17.4, hemoglobin 9.5, sodium 132, potassium 4.4, bicarb 23, BUN 16, creatinine 0.9, glucose 124, lactic acid 1.8, calcium 8.8, phosphorus 2.4, magnesium 1.7, TSH 6.7. Liver enzymes within normal ranges. Troponin negative. proBNP 3700. Urinalysis unremarkable. Cepheid 4 Plex negative. Urine Legionella antigen negative. Imaging: Chest x-ray showed cardiomegaly with prominent pulmonary vasculature and patchy bilateral lung infiltrates. Hip pelvis x-ray showed no acute osseous abnormalities. EKG showed V paced at a rate of 87, no ST-T changes, QTc 446 MS. 12/20/2024 patient seen and examined at bedside. No acute events overnight. Still requiring oxygen support with 2 to 3 L of nasal cannula. Patient has no symptoms or complaints. Labs: WBC 15.9, hemoglobin 9.3, MCV 93.6, platelet count 371,000, sodium 139, potassium 4.2, bicarb 27, BUN 16, creatinine 1.01, glucose 133, calcium 9.1, Pro-Fortino 0.22. Blood cultures positive for staph mecA/C positive. Imaging; chest x-ray independently interpreted showing improving pulmonary infiltrates 12/21/2024 patient seen and examined at bedside. No acute events overnight. Patient still requiring 2-3L oxygen. Labs: WBC 21.16, hemoglobin 9, MCV 92.9, platelet count 408,000, sodium 137, potassium 4.5, bicarb 30, BUN 29, creatinine 1.28, glucose 172, calcium 9.3, BNP 2180. Blood cultures positive for Staphylococcus epidermidis MEC A positive. Repeat CXR shows minimal improvement 12/22/2024 patient seen and examined at bedside. No acute events overnight. Patient still requiring 3 to 4 L oxygen via nasal cannula Labs: WBC 7.29, hemoglobin 9.4, platelet count 386,000, sodium 136, potassium 4.7, bicarb 28, BUN 37, creatinine 1.06, glucose 176, calcium 8.8 Imaging; echocardiogram showed LVEF 40 to 45% with moderate global hypokinesis, mild mitral and tricuspid regurgitation 12/23/2024 patient seen and examined at bedside. No acute events overnight. Patient oxygen requirements are increasing from 5 to 6 L high flow nasal cannula. Still having dry cough. Labs: WBC 7 point 0.6, hemoglobin 9.2, MCV 93, platelet count 381,000, sodium 130, potassium 4.4, chloride 102, bicarb 28, BUN 45, creatinine 1.11, glucose 96, calcium 9.1. ABG showed PO2 50 pH 7.42 and pCO2 45 Imaging; chest CT shows marked diffuse scattered groundglass opacities consist ent with pulmonary edema, ARDS or pneumonia, moderate cardiomegaly, 3.4 cm dilation of the main pulmonary artery 12/24/2024 Patient evaluated in follow-up on the medical floor. Patient remains on oxygen support increased up to 10 L high flow cannula with saturations of 90%. patient is currently on a course of IV Solu-Medrol as well as IV Lasix twice daily. She has completed a course of antibiotics. She is also maintained on a fluid restriction. ID and pulmonology are following this patient closely. Blood culture finalized revealing Staphylococcus epidermidis which is felt to be contaminant species 12/25/2024 patient seen and examined at bedside. Patient in the ICU. Requiring high flow nasal cannula rate of 50 FiO2 55% Labs: WBC 17.9, hemoglobin 9.7, MCV 90.8, platelet count 250,000 sodium 137, potassium 4.8, bicarb 31, creatinine, BUN 49, creatinine 1.16, glucose 224, mag 2.2, calcium 9.1. ABG pH 7.46, pCO2 43, bicarb 66 Imaging; chest x-ray showed so far persistent diffuse increased lung markings present 12/26/2024 patient seen and examined at bedside. Still requiring high flow nasal cannula rate of 50 FiO2 60% Labs: WBC 19.5, hemoglobin 10, chloride 97, bicarb 33, potassium 4.2, sodium 137, creatinine 1.07, BUN 54, glucose 280, calcium 9.3, proBNP 1950, Pro-Fortino less than 0.2 Imaging: Chest x-ray showed stable diffuse interstitial infiltrates 12/27/2024 patient seen and examined at bedside. No acute events overnight. Still in the ICU. Still having dry cough. High flow nasal cannula for O2 support flow rate 50 FiO2 60% Labs: WBC 20.3, hemoglobin 10.6, platelet count 370,000, sodium 139, potassium 4.6, bicarb 33, BUN 59, creatinine 0.99, glucose 175, calcium 9.8 Imaging: Chest x-ray today showed stable pulmonary infiltrates 12/28/2024 patient seen and examined at bedside. No acute events overnight. Still in the ICU. Still requiring high flow nasal cannula rate 50 at 50% FiO2 Labs: WBC 19.6, hemoglobin 10.4, sodium 134, potassium 4, bicarb 33, BUN 66, creatinine 1.12, glucose 205, magnesium 2.3 Imaging: Chest x-ray shows stable diffuse interstitial infiltrates 12/29/2024 patient seen and examined at bedside. No acute events overnight. Still in the ICU. No fevers or chills. O2 requirements decreasing. Labs: WBC 26.03, hemoglobin 10.7, sodium 136, bicarb 34, BUN 63, creatinine 1.11, glucose 185, magnesium 2.4 Imaging: Chest x-ray shows improving diffuse pulmonary infiltrates 12/30/2024 patient seen and examined at bedside. No acute events overnight. Downgraded to stepdown unit Currently on high flow nasal cannula 9 L which has improved. Labs: Sodium 136, potassium 4.7, bicarb 23, BUN 65, creatinine 1.2, glucose 186, calcium 9.4 12/31/2024 Patient is resting in the bed. Awake alert and oriented. Breathing status is better. Currently on 9 L oxygen via nasal cannula. No complaints of chest pain or worsening shortness of breath. Laboratory data showed WBC 27.0 hemoglobin 10.5 and platelets 275. Sodium 135 potassium 5.0 chloride 97 bicarb is 32 BUN 66 and creatinine 1.27 and blood sugar 222. 01/01/2025 patient seen and examined at bedside. No new complaints. Still currently on high flow nasal cannula 8 L for O2 support Labs: WBC 24.7, hemoglobin 10.3, sodium 136, potassium 5.1, bicarb 23, BUN 60, creatinine 1.01, glucose 172 Imaging: Chest x-ray today showed persistent pulmonary diffuse interstitial infiltrates 01/02/2025 patient seen and examined at bedside. Patient increased O2 requirements and is currently on Airvo flow 50 FiO2 60% Labs: sodium 136, potassium 5.1 bicarb 33, BUN 60, creatinine 1.01, glucose 172, calcium 9.5 Imaging: Chest x-ray this morning shows ongoing extensive patchy airspace opacities, new subcutaneous emphysema at the right base of the neck 01/03/2025 patient seen and examined at bedside. Patient still on Airvo low flow 50 FiO2 60% Labs: WBC 21.6, hemoglobin 10.3, platelet count 236,000, sodium 135, potassium 5.4, BUN 44, creatinine 0.96, glucose 181, calcium 9.3 Imaging: Chest x-ray today showed increasing subcutaneous emphysema at the left base of the neck with small pneumothorax on the right chest, stable bilateral airspace opacities 01/04/2025 Patient was on high flow oxygen patient is presently on 15 L 50% FiO2. Patient presently has 15% pneumothorax patient had a CT of the chest. Patient has significant subcutaneous emphysema. 01/05/2025 patient seen and examined at bedside. No acute events overnight. Patient currently on high flow nasal cannula flow 50, FiO2 45%. Complaining of chest pressure when coughing. Imaging: Chest x-ray today shows stable right-sided pneumothorax and bilateral subcutaneous neck emphysema with stable bilateral diffuse opacities 01/13. Dr. CHRISTIANSON took over care. Patient is currently lethargic, currently on heat ed high flow. Family at the bedside. 01/14/2025 Assumed care of this patient today she remains in the cardiac unit. Her chest x-ray today reveals a similar small bilateral pneumothoraces right greater than left, similar mid pneumomediastinum similar diffuse subcutaneous emphysema. Patchy scattered airspace opacities within the lungs suggesting pulmonary edema and/or ARDS. CT surgery following postoperative day #5 placement of blowhole to try and relieve the subcutaneous emphysema with a 14-gauge Accu cath. Patient remains on Airvo with 50% FiO2 and a 50 L high flow rate. Patient did have positive blood culture for Staphylococcus epidermidis with repeat being final and negative. She had a repeat blood culture done on January 09 which is currently pending and negative so far. Most recent blood work reveals a white blood cell count 10.94, hemoglobin 9.8, sodium level of 132, BUN of 43 creatinine 0.80. Patient is currently afebrile. 01/15/2025 Patient is seen in follow-up today and continues on Airvo 50/55% and becomes extremely exerted with minimal exertion. Patient also reporting to having some feelings of constipation although feels it may be a hemorrhoid that continues to be bothersome, will add Anusol and continue on stool softeners. Patient is extremely weak and have recommended/OT therapy. Patient is not quite stable at this time and desats quickly. Patient is afebrile with no reports of chest pain or palpitations. Patient remains dyspneic during conversation as well. Review of systems: Constitutional: reports of fatigue, no fever, or chills Cardiovascular: No reports of chest pain or palpitations Respiratory: reports of continued shortness of breath and dry cough with no phlegm production, weak cough GI: No reports of nausea, vomiting, or diarrhea, reporting feelings of constipation although did have a bowel movement yesterday : No reports of dysuria or retention Neurovascular: reports of extreme weakness All medications have been reviewed PHYSICAL EXAMINATION: GENERAL: The patient is lethargic although arousable, alert and oriented x3 ill- looking, elderly appearing, obese HEENT: Pupils are round and equally reacting to light. EOMI. No scleral icterus. No conjunctival pallor. Normocephalic, atraumatic. No pharyngeal erythema. No thyromegaly. CARDIOVASCULAR: S1 and S2 muffled PULMONARY: Diminished breath sounds at bases, subcutaneous emphysema ABDOMEN: Soft, nontender, nondistended, normoactive bowel sounds. No palpable organomegaly. MUSCULOSKELETAL: No joint swelling or deformity. EXTREMITIES: No cyanosis, clubbing, or pedal edema. NEUROLOGICAL: Gross neurological examination did not reveal any focal deficits. Diffusely weak SKIN: No rashes. Significant emphysema noted of the neck and clavicle area and some of the face with some improvements in swelling Assessment: Acute hypoxemic respiratory failure ARDS Tiny bilateral pneumothoraces status post bilateral blowholes placed Pneumomediastinum Extensive subcutaneous emphysema secondary to above Acute febrile illness, recovered Acute leukocytosis, improving History of right direct anterior total hip arthroplasty on Nov 24 2024 Acute blood loss anemia, expected outcome of surgery Hypertension History of hyperlipidemia Insulin-dependent diabetes mellitus Obesity with a BMI of 35.4 kg/m Coronary artery disease, with history of CABG and cardiac stents History of ischemic cardiomyopathy with an ejection fraction improved to 40 to 45% Implanted AICD/pacemaker Hemorrhoid, acute, likely secondary to constipation Hypothyroidism Anxiety/depression GI prophylaxis protonix DVT prophylaxis heparin Full Code Plan: Multiple consultations following including pulmonary and patient is maintained on high flow Airvo 50/55% FiO2 and continues to report extreme dyspnea with minimal exertion. Patient is dyspneic during conversation and winded. Patient is lethargic and has been encouraged to increase activity as tolerated. Patient will need extensive PT/OT therapy once respiratory status is improved Patient having some feelings of constipation although reports she did have a bowel movement but feels she may have a hemorrhoid, will assess further and will add Anusol cream, continue with as needed which katie. Patient being followed by CT surgery as well continues with bilateral pleural holes and emphysema is somewhat improved. Continue supportive care Continue to encourage incentive spirometer use at least 10 times every hour while awake Continue bowel regimen and follow-up on repeat labs. Replace electrolytes per protocol Overall prognosis is guarded The impression and plan of care has been dictated by Zoila Meier, Nurse Practitioner as directed. Dr. Bekah MD I have performed a history and physical examination and medical decision making of this patient, discussed the same with the dictator, and agree with the dictators assessment and plan as written, documented as a scribe. Based on total visit time, I have performed more than 50% of this visit. Objective - Vital Signs Vital signs: Vital Signs Temp 97.9 F 01/15/25 04:00 Pulse 68 01/15/25 04:00 Resp 20 01/15/25 04:00 BP 104/56 01/15/25 04:00 Pulse Ox 99 01/15/25 04:00 FiO2 55 01/15/25 04:00 Intake & Output 07/06/25 07/06/25 07/07/25 06:59 18:59 06:59 Intake Total 0 540 Output Total 1500 550 500 Balance -1500 -550 40 Weight 84 kg 89 kg Intake: Oral 0 540 Output: Urine 1500 550 500 Other: Voiding Method External Catheter External Catheter External Catheter # Bowel Movements 1 - Labs CBC & Chem 7: 01/15/25 06:51 01/15/25 06:51 Labs: Abnormal Lab Results - Last 24 Hours (Table) 01/14/25 01/14/25 01/14/25 Range/Units 07:20 07:36 07:36 WBC 10.94 H (4.50-10.00) 10*3/uL RBC 3.25 L (4.10-5.20) 10*6/uL Hgb 9.8 L (12.0-15.0) g/dL Hct 30.0 L (37.2-46.3) % Plt Count 85 L (140-440) 10*3/uL Immature Gran # 0.06 H (0.00-0.04) 10*3/uL Neutrophils # 9.12 H (1.80-7.70) 10*3/uL Lymphocytes # 0.58 L (0.90-5.00) 10*3/uL Monocytes # 0.16 L (0.20-1.00) 10*3/uL Eosinophils # 1.00 H (0.04-0.35) 10*3/uL Sodium 132 L (137-145) mmol/L BUN 43 H (7-17) mg/dL Glucose 106 H (74-99) mg/dL POC Glucose (mg/dL) 124 H (70-110) mg/dL ALT 60 H (4-34) U/L Total Protein 5.3 L (6.3-8.2) g/dL Albumin 2.7 L (3.5-5.0) g/dL 01/14/25 01/14/25 01/15/25 Range/Units 16:34 20:27 01:39 WBC (4.50-10.00) 10*3/uL RBC (4.10-5.20) 10*6/uL Hgb (12.0-15.0) g/dL Hct (37.2-46.3) % Plt Count (140-440) 10*3/uL Immature Gran # (0.00-0.04) 10*3/uL Neutrophils # (1.80-7.70) 10*3/uL Lymphocytes # (0.90-5.00) 10*3/uL Monocytes # (0.20-1.00) 10*3/uL Eosinophils # (0.04-0.35) 10*3/uL Sodium (137-145) mmol/L BUN (7-17) mg/dL Glucose (74-99) mg/dL POC Glucose (mg/dL) 375 H 361 H 240 H (70-110) mg/dL ALT (4-34) U/L Total Protein (6.3-8.2) g/dL Albumin (3.5-5.0) g/dL 01/15/25 Range/Units 06:08 WBC (4.50-10.00) 10*3/uL RBC (4.10-5.20) 10*6/uL Hgb (12.0-15.0) g/dL Hct (37.2-46.3) % Plt Count (140-440) 10*3/uL Immature Gran # (0.00-0.04) 10*3/uL Neutrophils # (1.80-7.70) 10*3/uL Lymphocytes # (0.90-5.00) 10*3/uL Monocytes # (0.20-1.00) 10*3/uL Eosinophils # (0.04-0.35) 10*3/uL Sodium (137-145) mmol/L BUN (7-17) mg/dL Glucose (74-99) mg/dL POC Glucose (mg/dL) 111 H (70-110) mg/dL ALT (4-34) U/L Total Protein (6.3-8.2) g/dL Albumin (3.5-5.0) g/dL
[2025-01-15 20:06] LABS: Glucose,Whole Blood 306 mg/dL (70-110)
[2025-01-15] MEDS: HYDROCORTISONE SUPPOSITORY 25 MG SUPP RECTAL SCH (21:20)
[2025-01-15 23:12] LABS: Glucose,Whole Blood 223 mg/dL (70-110)
[2025-01-16 02:01] LABS: Glucose,Whole Blood 259 mg/dL (70-110)
[2025-01-16 06:08] LABS: Glucose,Whole Blood 159 mg/dL (70-110)
--- NOTE | 2025-01-16 07:20 | XR ---
EXAMINATION TYPE: XR chest 1V portable DATE OF EXAM: 01/16/2025 7:13 AM COMPARISON: Multiple radiographs, with the most recent on 01/15/2025 TECHNIQUE: XR chest 1V portable Portable AP radiograph of the chest. CLINICAL INDICATION:Female, 74 years old with history of Subcutaneous emphysema; FINDINGS: Lungs/Pleura: Similar small right pneumothorax. No discrete left pneumothorax identified. Scattered a irspace opacities throughout the lungs are similar. No sizable pleural effusion. Pulmonary vascularity: Unremarkable. Heart/mediastinum: Cardiomediastinal silhouette is enlarged. Pneumomediastinum is unchanged. Three l ead cardiac conduction device overlying the left hemithorax with lead tips projecting over the right ventricle, right atrium and coronary sinus. Musculoskeletal: No acute osseous pathology. Midline sternotomy wires are noted. Other findings: No significant change in diffuse subcutaneous emphysema scattered throughout the visu alized thorax and visualized neck. IMPRESSION: 1. Similar small right pneumothorax. 2. Unchanged pneumomediastinum. 3. Unchanged diffuse subcutaneous emphysema. 4. Unchanged patchy scattered airspace opacities within the lungs suggesting pulmonary edema and/or A RDS. [facility], , 01/16/2025 7:17 AM
[2025-01-16 08:09] LABS: Basophils # (A) 0.00 10*3/uL (0.00-0.10); Basophils % (A) 0.0 %; Eosinophils # (A) 0.07 10*3/uL (0.04-0.35); Eosinophils % (A) 1.1 %; HCT 30.9 % (37.2-46.3); HGB 9.9 g/dL (12.0-15.0); Lymphocytes # (A) 0.30 10*3/uL (0.90-5.00); Lymphocytes % (A) 4.7 %; MCH 29.6 pg (27.0-32.0); MCHC 32.0 g/dL (32.0-37.0); MCV 92.2 fL (80.0-97.0); Monocytes # (A) 0.12 10*3/uL (0.20-1.00); Monocytes % (A) 1.9 %; Neutrophils # (A) 5.81 10*3/uL (1.80-7.70); Neutrophils % (A) 91.7 %; RBC 3.35 10*6/uL (4.10-5.20); RDW 16.6 % (11.5-14.5); WBC 6.34 10*3/uL (4.50-10.00)
[2025-01-16 08:18] LABS: Platelet Count 87 10*3/uL (140-440)
[2025-01-16 08:31] LABS: African American GFR (CKD) >90 (>60 ml/min/1.73 sqM); Anion Gap 2 mmol/L; Blood Urea Nitrogen 33 mg/dL (7-17); Calcium 9.8 mg/dL (8.4-10.2); Carbon Dioxide 31 mmol/L (22-30); Chloride 101 mmol/L (98-107); Glucose 133 mg/dL (74-99); Magnesium 2.1 mg/dL (1.6-2.3); Non-African American GFR(CKD) 80 (>60 ml/min/1.73 sqM); Potassium 4.6 mmol/L (3.5-5.1); Sodium 134 mmol/L (137-145)
--- NOTE | 2025-01-16 09:09 | P.PN ---
Subjective Progress Note Date: 01/16/25 Principal diagnosis: Extensive subcutaneous emphysema. Past medical history significant for coronary artery disease with previous PCI and CABG, ischemic cardiomyopathy status post AICD placement, hypertension, hyperlipidemia, insulin-dependent diabetes, hypothyroid. Status post day #7 placement of below holes to try to relieve the subcutaneous emphysema with a 14-gauge Angiocath. The patient was seen and examined in follow-up today January 16, 2025 at her bedside on the third floor cardiac stepdown unit. She is currently laying in bed, continues on Airvo with oxygen saturations 98%, FiO2 55% and flow rate 50. She is achieving 500 mL on her incentive spirometry with encouragement. 14-gauge Angiocath's remain in place, to her left upper chest, although the Angiocath to her right upper chest has fallen out. Chest x-ray results reviewed. Objective - Vital Signs Vital signs: Vital Signs Temp 97.8 F 01/16/25 04:30 Pulse 69 01/16/25 04:30 Resp 18 01/16/25 04:30 BP 129/73 01/16/25 04:30 Pulse Ox 98 01/16/25 04:30 FiO2 50 01/16/25 03:18 Intake & Output 01/15/25 01/16/25 01/16/25 18:59 06:59 18:59 Intake Total 370 360 Output Total 1800 Balance -1430 360 Weight 74.5 kg Intake: IV 10 Invasive Line 9 10 Oral 360 360 Output: Urine 1800 Other: Voiding Method External Catheter External Catheter # Voids 0 # Bowel Movements 1 - Exam CONSTITUTIONAL: Appears comfortable, cooperative, no acute distress. RESPIRATORY: Lungs sounds diminished throughout bilaterally. Respirations even, nonlabored. Currently on Airvo with FiO2 50% and flow rate 50 with oxygen saturation 98%. Able to achieve 500 mL on incentive spirometry. Strong cough. CARDIOVASCULAR: S1, S2 present. Regular rate and rhythm, V paced rhythm on telemetry. Palpable peripheral pulses bilaterally. No edema present. No calf pain or tenderness noted. GASTROINTESTINAL: Abdomen soft, nontender, nondistended. Active bowel sounds present 4 quadrants. Tolerating diet. GENITOURINARY: Continues to void clear, yellow urine. INTEGUMENTARY: Skin is warm and dry with evidence of good perfusion. Diffuse subcutaneous emphysema to her chest, back and neck. Subcutaneous emphysema improving. Subcutaneous emphysema surrounding her left eye. NEUROLOGIC: Cranial nerves II through XII intact. No focal deficits. MUSKULOSKELETAL: Able to move all extremities, strength equal bilaterally, generalized weakness. PSYCHIATRIC: Alert and oriented to person place and time, appropriate affect, intact judgment and insight. - Allied health notes Allied health notes reviewed: nursing - Labs CBC & Chem 7: 01/16/25 07:21 01/16/25 07:21 Labs: Abnormal Lab Results - Last 24 Hours (Table) 01/15/25 01/15/25 01/15/25 Range/Units 12:17 17:22 20:05 RBC (4.10-5.20) 10*6/uL Hgb (12.0-15.0) g/dL Hct (37.2-46.3) % Plt Count (140-440) 10*3/uL Lymphocytes # (0.90-5.00) 10*3/uL Monocytes # (0.20-1.00) 10*3/uL Sodium (137-145) mmol/L Carbon Dioxide (22-30) mmol/L BUN (7-17) mg/dL Glucose (74-99) mg/dL POC Glucose (mg/dL) 253 H 295 H 306 H (70-110) mg/dL 01/15/25 01/16/25 01/16/25 Range/Units 23:10 01:59 06:07 RBC (4.10-5.20) 10*6/uL Hgb (12.0-15.0) g/dL Hct (37.2-46.3) % Plt Count (140-440) 10*3/uL Lymphocytes # (0.90-5.00) 10*3/uL Monocytes # (0.20-1.00) 10*3/uL Sodium (137-145) mmol/L Carbon Dioxide (22-30) mmol/L BUN (7-17) mg/dL Glucose (74-99) mg/dL POC Glucose (mg/dL) 223 H 259 H 159 H (70-110) mg/dL 01/16/25 01/16/25 Range/Units 07:21 07:21 RBC 3.35 L (4.10-5.20) 10*6/uL Hgb 9.9 L (12.0-15.0) g/dL Hct 30.9 L (37.2-46.3) % Plt Count 87 L (140-440) 10*3/uL Lymphocytes # 0.30 L (0.90-5.00) 10*3/uL Monocytes # 0.12 L (0.20-1.00) 10*3/uL Sodium 134 L (137-145) mmol/L Carbon Dioxide 31 H (22-30) mmol/L BUN 33 H (7-17) mg/dL Glucose 133 H (74-99) mg/dL POC Glucose (mg/dL) (70-110) mg/dL Microbiology - Last 24 Hours (Table) 01/09/25 15:00 Blood Culture - Final Blood - Imaging and Cardiology Chest x-ray: report reviewed, image reviewed Assessment and Plan Assessment: Extensive subcutaneous emphysema extending upper chest, neck, face, status post placement of 2 angio cath 14-gauge subclavicular acting as blowhole's Bilateral tiny pneumothoraces, pneumomediastinum found on CT Pneumonia Acute hypoxic respiratory failure secondary to above History of coronary artery disease with previous PCI and CABG Ischemic cardiomyopathy status post AICD placement Hypertension Hyperlipidemia Insulin-dependent diabetes Hypothyroid Plan: Keep left 14-gauge Angiocath in place as blow hole's, to her left chest Continue to monitor daily chest x-rays. Encourage use of incentive spirometry 10 times every hour while awake. Increase activity as tolerated. Medical management of other comorbidities per internal medicine, pulmonary critical care service, and infectious disease. More recommendations to follow based on patient's clinical course. Time with Patient: Less than 30
[2025-01-16 11:44] LABS: Glucose,Whole Blood 180 mg/dL (70-110)
--- NOTE | 2025-01-16 14:48 | P.PN ---
Subjective Progress Note Date: 01/16/25 Patient is a 75-year-old female with past medical history significant for hypertension, hyperlipidemia, insulin-dependent diabetes mellitus, obesity, coronary artery disease with previous CABG, ischemic cardiomyopathy with an ejection fraction of 25 to 30% with AICD, asthma, and osteoarthritis. Of note, patient recently underwent right direct anterior total hip arthroplasty on 11/24/2024. She was discharged from the hospital to [facility] for rehabilitation. While at the outside facility, developed shortness of breath, coughing, and generalized weakness. States she was released from [facility] to home last Wednesday on November. Since then, she has fallen twice while at home. Brought in by EMS yesterday evening hypoxic and confused. She was placed on supplemental oxygen. Workup in the emergency department including a chest x-ray showing patchy bilateral lung infiltrates concerning for congestive heart failure or atypical pneumonias. CBC: WBC count 14.7, hemoglobin 9.5 g/dL, platelets 374. BMP: Sodium 132, potassium 4.4, chloride 100, serum bicarb 23, BUN 16, creatinine 0.92, glucose 124. Lactic 1.8. LFTs unremarkable. Troponin less than 0.012. NT proBNP 6.74. Viral 4 Plex negative for influenza A/B, RSV, COVID. Urinalysis unremarkable for UTI. Patient currently being evaluated on the general medical floor. She is alert and oriented x 3. Endorses above menti oned complaints. Does report history of asthma. Has had increased work of breathing over the last couple weeks. Suffering from persistent nonproductive cough over the same timeframe. States her symptoms actually started at [facility]. She has had a poor appetite with occasional nausea and vomiting. She has been able to take some of her home medications. Has had intermittent fevers with a Tmax of 100.8 F. Was started on empiric antibiotics in the ED, in the form azithromycin and Rocephin. Normal saline infusing at 50 mL/h. Denies any chest pain. Does endorse unilateral right lower lower extremity edema. No heart palpitations, syncopal events, hemoptysis. Current vital signs: Temperature 100.8 F, heart rate 95 bpm, blood pressure 124/54 mmHg, nontachypneic, SpO2 recorded at 96% on 3 L/min nasal cannula. The patient is seen today December 20, 2024 and follow-up on the regular medical floor. She is currently sitting up in bed. Awake and alert in no acute distress. Feeling a bit better today compared to yesterday. Maintaining O2 saturations in the 90s on 3 L/min per nasal cannula. Chest x-ray shows continued infiltrate of the right lung with improvement in the left lung. Blood culture is coming back positive. ID pending. White count 15.9. Hemoglobin 9.3. Platelets 371. Sodium 139. Potassium 4.2. Bicarb 27. BUN 16. Creatinine 1.01. Glucose 133. She remains on DuoNeb inhalations, IV Solu- Medrol, IV diuretics. Lovenox for DVT prophylaxis. Antibiotics in the form of ceftriaxone. The patient is seen today December 21, 2024 in follow-up on the regular medical floor. She is currently sitting up in a chair. Awake and alert in no acute distress. Maintaining O2 saturations in the 90s on 3 L/min per nasal cannula. She has been afebrile. Hemodynamically stable. Blood cultures showing staph epidermidis, most likely contaminant. White count 21.1. Hemoglobin 9.0. Platelets 409. Sodium 137. Potassium 4.5. Bicarb 30. BUN 29. Creatinine 1. 28. Glucose 172. proBNP 2180. She remains on DuoNeb inhalations, Solu-Medrol. Antibiotics in the form of ceftriaxone. Lovenox for DVT prophylaxis. Remains on IV diuretics. No accurate intake and output recorded. Chest x-ray showing similar findings with basilar infiltrates right greater than left. The patient is seen today December 22, 2024 in follow-up on the regular medical floor. She is sitting up at the bedside. Awake and alert in no acute distress. She has been slow to progress. She is still dyspneic with minimal exertion. Dyspneic with conversation. She is maintaining O2 saturations in the 90s on 7 L high flow nasal cannula. Echocardiogram reveals impaired left ventricular systolic function with an ejection fraction [address] scan of the chest revealed marked diffuse scattered groundglass opacities consistent with pulmonary edema, ARDS or pneumonia. AICD in place. Blood culture positive for Staphylococcus epidermidis. White count 17.9. Hemoglobin 9.4. Platelets 386. Sodium 136. Potassium 4.7. Bicarb 28. BUN 37. Creatinine 1.06. Glucose 176. She remains on DuoNeb inhalations, Solu-Medrol. Remains on oral diuretics. Antibiotics in the form of ceftriaxone. Heparin for DVT prophylaxis. The patient is seen today December 23, 2024 in follow-up on the regular medical floor. She is currently resting in bed. Awake and alert in no acute distress. Feeling a bit better today compared to yesterday. She is maintaining O2 saturations in the 90s on 6 L high flow nasal cannula. She remains afebrile. Hemodynamically stable. Initial blood cultures showing staph epidermidis. Follow-up blood culture reveals no growth. White count 17.6. Hemoglobin 9.2. Platelets 381. Sodium 138. Potassium 4.4. Bicarb 28. BUN 45. Creatinine 1.11. Glucose 115. Arterial blood gases on 44% FiO2 revealed a PO2 of 50, UYP115 and a pH of 7.42. She remains on DuoNeb inhalations, Solu-Medrol and Robitussin as needed. Heparin for DVT prophylaxis. She remains on Lasix 40 mg every 12 hours. No accurate intake and output recorded. The patient is seen today December 24, 2024 in follow-up on the regular medical floor. She is awake and alert in no acute distress. Resting in bed. No worsening shortness of breath, cough or congestion. She is still requiring 10 L high flow nasal cannula to maintain O2 saturations in the 90s. Lung sounds improved. Blood cultures were positive for Staphylococcus epidermidis. Most likely a contaminant. Follow-up blood culture revealed no growth. Glucose 233. She remains on DuoNeb inhalations, Symbicort, Solu-Medrol. She remains on IV Lasix. Heparin for DVT prophylaxis. Currently in a -1.9 L balance. The patient is seen today December 25, 2024 in follow-up in the intensive care unit. She was transferred down here last evening after having issues with worsening hypoxemia. She is currently on Airvo high flow oxygen at 50 L and 50% FiO2. She is afebrile. Hemodynamically stable. Chest x-ray continues to show cardiomegaly with pulmonary vascular congestion and bilateral pleural effusions. Follow-up blood culture revealed no growth. White count 17.9. Hemoglobin 9.7. Platelets 350. Sodium 137. Potassium 4.8. Bicarb 31. BUN 49. Creatinine 1.16. Glucose 224. She remains on DuoNeb inhalations, Symbicort, Solu-Medrol. Heparin for DVT prophylaxis. She remains on Lasix 40 mg IV every 12 hours. C urrently in a -4 L balance. The patient is seen today December 26, 2024 in follow-up in the intensive care unit. She is currently sitting up in bed. Awake and alert in no acute distress. Feeling a bit better today compared to yesterday. She is still high flow oxygen at 50 L and 60% FiO2. No IV fluids. She has been afebrile. Hemodynamically stable. Chest x-ray continues to show diffuse infiltrates bilaterally right greater than left. Follow-up blood culture reveals no growth. White count 1 9.5. Hemoglobin 10.0. Platelets 359. Sodium 137. Potassium 4.2. Bicarb 33. BUN 54. Creatinine 1.07. Glucose 280. Continued on Lasix 40 mg IV every 12 hours. Currently net -3.3 L balance. She remains on DuoNeb and elations, Symbicort, Solu-Medrol. Robitussin for her cough. The patient is seen today December 28, 2024 in follow-up in the intensive care unit. She is awake and alert in no acute distress. Sitting up in bed. Remains on Airvo high flow oxygen at 50 L and 50% FiO2. No IV fluids. Chest x-ray is showing fluid volume overload but improving. Initial blood culture positive for staph epidermidis. Follow-up blood culture revealed no growth. White count 19.6. Hemoglobin 10.4. Platelets 352. Sodium 134. Potassium 4.0. Bicarb 33. BUN 66. Creatinine 1.12. Glucose 205. She is continued on DuoNeb inhalations, Symbicort, Solu-Medrol. Heparin for DVT prophylaxis. She remains on Lasix 40 mg IV every 12 hours. Currently in a -700 mL balance. The patient is seen today December 29, 2024 in follow-up in the intensive care unit. She is currently sitting up in bed. Awake and alert in no acute distress. Deny any worsening shortness of breath, cough or congestion. Feeling better. She is now on 8 L high flow nasal cannula. Chest x-ray continues to show improvement. White count 26.0. Hemoglobin 10.7. Platelets 352. Sodium 136. Potassium 4.3. Bicarb 34. BUN 63. Creatinine 1.11. Glucose 185. She remains on DuoNeb inhalations, Symbicort, Solu-Medrol. Heparin for DVT prophylaxis. Continued on Lasix 40 mg every 12 hours. Currently in a -700 mL balance. The patient is seen today January 08, 2025 in follow-up on the selective care unit. She is currently sitting up in bed. Awake and alert in no acute distress. She had developed extensive subcutaneous emphysema for chest and neck and face. She remains on Airvo high flow oxygen at 50 L and 45% FiO2. Chest x-ray shows similar small bilateral pneumothoraces. Similar pneumomediastinum. Similar diffuse subcutaneous emphysema. Patchy scattered airspace opacity within the lungs suggesting pulmonary edema and/or ARDS. Follow-up blood culture revealed no growth. White count 16.7. Hemoglobin 10.5. Platelets 165. Sodium 134. Potassium 4.6. Bicarb 25. BUN 36. Creatinine 0.77. Glucose 134. She remains on DuoNeb inhalations, Symbicort, Solu-Medrol. Heparin for DVT prophylaxis. Remains on diuretics. Remains on cefepime. The patient is seen today January 09, 2025 in follow-up on the selective care unit. She is awake and alert in no acute distress. Sitting up in bed. Her subcutane ous emphysema is worsening. Her eyes are swollen shut now. CT services are planning to place blow holes today. She remains on Airvo high flow oxygen at 50 L and 45% FiO2. Chest x-ray continues to show similar small bilateral pneumothoraces. Similar pneumomediastinum. Similar diffuse subcutaneous emphysema. Patchy scattered airspace opacities within the lung suggesting pulmonary edema and/or ARDS. Follow-up blood culture revealed no growth. White count 17.3. Hemoglobin 10.7. Platelets 160. Sodium 135. Potassium 4.5. Bicarb 23. BUN 39. Creatinine 0.78. Glucose 193. She remains on DuoNeb and elations, Symbicort, Solu-Medrol. Heparin for DVT prophylaxis. Remains on oral diuretics. Remains on cefepime and Diflucan. The patient is seen today January 10, 2025 in follow-up on the selective care unit. She is currently sitting up in bed. Awake and alert in no acute distress. D oing better today compared to yesterday. She did have two blow hole's placed. Her subcutaneous emphysema has improved. She is able to open her eyes. No worsening shortness of breath, cough or congestion. Continued on Airvo high flow oxygen at 50 L and 44% FiO2. She remains on DuoNeb inhalations, Symbicort, IV Solu-Medrol. Heparin for DVT prophylaxis. Remains on oral diuretics. Remains on cefepime. Chest x-ray shows similar small bilateral pneumothoraces. Similar pneumomediastinum. Similar diffuse subcutaneous emphysema. Patchy scattered airspace opacities bilaterally. White count 16.3. Hemoglobin 10.9. Platelets 142. Sodium 133. Potassium 5.2. Bicarb 24. BUN 40. Creatinine 0.65. Glucose 140. The patient is seen today January 11, 2025 in follow-up on the selective care unit. She is currently awake and alert in no acute distress. Sitting up in bed. Still showing improvement in the subcutaneous emphysema. She is maintaining O2 saturations in the 90s on Airvo high flow oxygen at 50 L and 55% FiO2. She has been afebrile. Hemodynamically stable. Chest x-ray continues to show similar small bilateral pneumothoraces with similar pneumomediastinum. Similar diffuse subcutaneous emphysema. Patchy scattered airspace opacities continue. Initial blood culture showing Staphylococcus epidermidis. Follow-up blood cultures x 2 revealed no growth. White count 15.7. Hemoglobin 10.2. Platelets 121. Sodium 130. Potassium 5.2. Bicarb 23. BUN 45. Creatinine 0.75. Glucose 324. She remains on DuoNeb inhalations, Symbicort, Solu-Medrol. Heparin for DVT prophyla xis. Remains on cefepime. Remains on diuretics. The patient is seen today January 12, 2025 in follow-up on the selective care unit. She is currently sitting up in bed. Awake and alert in no acute distress. Feeling better today compared to yesterday. She has less subcutaneous emphysema. Denies any worsening shortness of breath, cough or congestion. She remains on Airvo high flow oxygen at 50 L and 50% FiO2. She is continued on DuoNeb inhalations, Symbicort, Solu-Medrol. Remains on oral diuretics. Remains on cefepime. Remains on Diflucan. Heparin for DVT prophylaxis. Follow-up blood cultures revealed no growth. White count 14.4. Hemoglobin 10.1. Platelets 110. Sodium 130. Potassium 5.3. Bicarb 26. BUN 41. Creatinine 0.69. Glucose 145. Today's chest x-ray is showing similar small bilateral pneumothoraces. Similar pneumomediastinum. Similar diffuse subcutaneous emphysema. Some improvement in the patchy scattered airspace opacities. The patient is seen today January 13, 2025 in follow-up on the selective care unit. She is awake and alert in no acute distress. Her subcutaneous emphysema appears worse today with her left eye swollen shut. New blow holes placed with #[address] services. She remains on Airvo high flow oxygen at 50 L and 50% FiO2 with O2 saturation at 95%. She has been afebrile. Hemodynamically stable. Chest x-ray continues to show small bilateral pneumothoraces. Similar pneumomediastinum. Diffuse subcutaneous emphysema. Patchy airspace opacities. Blood culture reveals no growth. White count 16.8. Hemoglobin 9.7. Platelets 122. Sodium 133. Potassium 4.8. BUN 44. Creatinine 0.82. Glucose 177. The patient is seen today January 14, 2025 in follow-up on the selective care unit. She is currently sitting up in bed. Awake and alert in no acute distress. Her subcutaneous emphysema is improved today compared to yesterday. Both of her eyes are open. She denies any worsening shortness of breath, cough or congestion. She is still requiring Airvo high flow oxygen at 50 L and 55% FiO2 to maintain O2 saturations in the 90s. Blood cultures revealed no growth. White count 10.9. Hemoglobin 9.8. Platelets 85,000. Sodium 132. Potassium 4.6. Bicarb 26. BUN 43. Creatinine 0.8. Glucose 106. AST 30. ALT 60. Mela st x-ray shows small bilateral pneumothoraces right greater than left. Pneumomediastinum. Diffuse subcutaneous emphysema. Patchy scattered airspace opacities. She is continued on DuoNeb inhalations, Symbicort, Solu-Medrol. Heparin for DVT prophylaxis. Remains on oral diuretics. Remains on cefepime. The patient is seen today January 15, 2025 in follow-up on the selective care unit. She is currently sitting up in bed. Awake and alert in no acute distress. She remains on Airvo high flow oxygen at 50 L and 55% FiO2 with O2 saturations in the 90s. Follow-up chest x-ray continues to show similar right pneumothorax with previously seen left pneumothorax not well-visualized. Similar pneumom ediastinum. Slightly decreased diffuse subcutaneous emphysema. Continued patchy airspace opacities concerning for ARDS. Blood cultures revealed no growth. White count 8.8. Hemoglobin 9.9. Platelets 80,000. Sodium 133. Potassium 4.5. Bicarb 27. BUN 41. Creatinine 0.76. Glucose 106. She remains on DuoNeb inhalations, Symbicort, Solu-Medrol. Completed cefepime. Heparin for DVT prophylaxis. Remains on oral diuretics. The patient is seen today January 16, 2025 in follow-up on the selective care unit. She has awake and alert in no acute distress. Sitting up in bed. Denies any worsening shortness of breath, cough or congestion. She has been up been very slow to progress. She is requiring Airvo high flow oxygen now at 40 L and 45% FiO2. She has been afebrile. Hemodynamically stable. Less subcutaneous emphysema noted. Below holes remain in place. Chest x-ray reveals similar small right pneumothorax. Unchanged pneumomediastinum. Diffuse subcutaneous emphysema. Unchanged patchy scattered airspace disease. Follow-up blood cultures revealed no growth. White count 6.3. Hemoglobin 9.9. Platelets 87,000. Sodium 134. Potassium 4.6. Bicarb 31. BUN 33. Creatinine 0.75. Glucose 133. She remains on DuoNeb inhalations, Symbicort IV Solu-Medrol. Heparin for DVT prophylaxis. Remains on oral diuretics. Objective - Vital Signs Vital signs: Vital Signs Temp 97.5 F L 01/16/25 09:01 Pulse 64 01/16/25 12:30 Resp 14 01/16/25 12:30 BP 119/68 01/16/25 12:30 Pulse Ox 97 01/16/25 12:30 FiO2 45 01/16/25 12:10 Intake & Output 01/15/25 01/16/25 01/16/25 18:59 06:59 18:59 Intake Total 370 360 Output Total 1800 200 Balance -1430 160 Weight 74.5 kg Intake: IV 10 Invasive Line 9 10 Oral 360 360 Output: Urine 1800 200 Other: Voiding Method External Catheter External Catheter External Catheter # Voids 0 # Bowel Movements 1 - Exam GENERAL EXAM: Alert, pleasant 74-year-old female, sitting up in bed, on Airvo high flow oxygen at 40 L and 45% FiO2, in no acute distress. HEAD: Evidence of subcutaneous emphysema over face EYES: Improved subcutaneous emphysema NOSE: Clear with pink turbinates. THROAT: No erythema or exudates. NECK: No masses, no JVD. CHEST: Improved subcutaneous emphysema. Left chest implanted device. Left blow hole in place with #14 Angiocath. LUNGS: Equal air entry with crackles in the posterior bases, few scattered rhonchi t. CVS: S1 and S2 normal with no audible murmur, regular rhythm. No extra heart sounds ABDOMEN: No hepatosplenomegaly, active bowel sounds, no guarding or rigidity. SPINE: No scoliosis or deformity SKIN: No rashes CENTRAL NERVOUS SYSTEM: No focal deficits, tone is normal in all 4 extremities. EXTREMITIES: Right anterior hip incision is approximated. Full range of motion. Right lower extremity pitting edema. Peripheral pulses are intact. - Labs CBC & Chem 7: 01/16/25 07:21 01/16/25 07:21 Labs: Abnormal Lab Results - Last 24 Hours (Table) 01/15/25 01/15/25 01/15/25 Range/Units 17:22 20:05 23:10 RBC (4.10-5.20) 10*6/uL Hgb (12.0-15.0) g/dL Hct (37.2-46.3) % Plt Count (140-440) 10*3/uL Lymphocytes # (0.90-5.00) 10*3/uL Monocytes # (0.20-1.00) 10*3/uL Sodium (137-145) mmol/L Carbon Dioxide (22-30) mmol/L BUN (7-17) mg/dL Glucose (74-99) mg/dL POC Glucose (mg/dL) 295 H 306 H 223 H (70-110) mg/dL 01/16/25 01/16/25 01/16/25 Range/Units 01:59 06:07 07:21 RBC 3.35 L (4.10-5.20) 10*6/uL Hgb 9.9 L (12.0-15.0) g/dL Hct 30.9 L (37.2-46.3) % Plt Count 87 L (140-440) 10*3/uL Lymphocytes # 0.30 L (0.90-5.00) 10*3/uL Monocytes # 0.12 L (0.20-1.00) 10*3/uL Sodium (137-145) mmol/L Carbon Dioxide (22-30) mmol/L BUN (7-17) mg/dL Glucose (74-99) mg/dL POC Glucose (mg/dL) 259 H 159 H (70-110) mg/dL 01/16/25 01/16/25 Range/Units 07:21 11:41 RBC (4.10-5.20) 10*6/uL Hgb (12.0-15.0) g/dL Hct (37.2-46.3) % Plt Count (140-440) 10*3/uL Lymphocytes # (0.90-5.00) 10*3/uL Monocytes # (0.20-1.00) 10*3/uL Sodium 134 L (137-145) mmol/L Carbon Dioxide 31 H (22-30) mmol/L BUN 33 H (7-17) mg/dL Glucose 133 H (74-99) mg/dL POC Glucose (mg/dL) 180 H (70-110) mg/dL Microbiology - Last 24 Hours (Table) 01/09/25 15:00 Blood Culture - Final Blood Assessment and Plan Assessment: Acute hypoxemic respiratory failure with CT scan of the chest reveals marked diffuse scattered groundglass opacities consistent with pulmonary edema, ARDS or pneumonia. Moderate cardiomegaly. Procalcitonin negative x 2.The CAT scan of the chest was also consistent with ARDS with secondary complications of bilateral minimal pneumothoraces, pneumomediastinum and subcutaneous emphysema. The patient is currently on IV Solu-Medrol. CHF seems to be quite well optimized and the patient's most recent echocardiogram showed an ejection fraction of 40 to 45%. Completed cefepime. Chest x-ray findings showing worsening of subcutaneous emphysema. Nevertheless, there is no worsening in the pneumothorax or oxygenation. Remains on Airvo high flow oxygen at 40 L and 45% FiO2 Tiny bilateral pneumothoraces Pneumomediastinum Extensive subcutaneous emphysema secondary to above Acute febrile illness, recovered Acute leukocytosis, improving History of right direct anterior total hip arthroplasty on Nov 24 2024 Acute blood loss anemia, expected outcome of surgery Hypertension History of hyperlipidemia Insulin-dependent diabetes mellitus Obesity with a BMI of 35.4 kg/m Coronary artery disease, with history of CABG and cardiac stents History of ischemic cardiomyopathy with an ejection fraction improved to 40 to 45% Implanted AICD/pacemaker Hypothyroidism Anxiety/depression Poor overall functional performance based on the above-mentioned multiple comorbidities Plan: The patient was seen and evaluated Chest x-ray, labs and medications reviewed Slight improvement in the subcutaneous emphysema Slight improvement in the left-sided pneumothorax Left sided blow hole remain in place To come out today or tomorrow Currently on Airvo high flow oxygen Continue Solu-Medrol Continue Lasix Continue DuoNeb inhalations Continue Symbicort Heparin for DVT prophylaxis Titrate down the FiO2 as tolerated Increase her activity as tolerated Cleared for discharge to select specialty I have personally seen and examined the patient, performed the documentation and the assessment and plan as written. Number of minutes spent on the visit: 10 Dictation was produced using [employer] dictation software. Please excuse any grammatical, word or spelling errors.
[2025-01-16 16:19] LABS: Glucose,Whole Blood 200 mg/dL (70-110)
--- NOTE | 2025-01-16 16:56 | P.PN ---
Subjective Progress Note Date: 01/15/25 Principal diagnosis: Reason for follow-up is a positive blood culture/leukocytosis/thrush Patient is a 74-year-old female with a past medical history significant for Asthma, Blood Disorder, Coronary Artery Disease (CAD), Chest Pain / Angina, Heart Failure, Diabetes Mellitus, Eye Disorder, GERD/Reflux, Hyperlipidemia, Hypertension, Myocardial Infarction ([place]), Musculoskeletal Disorder, Osteoarthritis (OA), Renal Disease, Skin Disorder, Supraventricular Tachycardia (SVT), Thyroid Disorder who recently did have a right hip replacement, patient presented the hospital with increasing shortness of breath and cough did have a positive blood culture prompting this consultation. On today's evaluation that is 01/15/2025, patient has been afebrile, patient is breathing slightly comfortably and is currently high flow nasal oxygen requiring 50% FiO2, denies any chest pain or worsening cough and abdominal pain no diarrhea Patient white count normalized to 8.89, creatinine 0.76 Objective - Vital Signs Vital signs: Vital Signs Temp 98.7 F 01/15/25 11:17 Pulse 74 01/15/25 11:17 Resp 20 01/15/25 11:17 BP 110/65 01/15/25 11:17 Pulse Ox 93 L 01/15/25 11:17 FiO2 55 01/15/25 11:17 Intake & Output 01/14/25 01/15/25 01/15/25 18:59 06:59 18:59 Intake Total 0 540 190 Output Total 550 500 Balance -550 40 190 Weight 89 kg Intake: IV 10 Invasive Line 9 10 Oral 0 540 180 Output: Urine 550 500 Other: Voiding Method External Catheter External Catheter External Catheter # Voids 1 # Bowel Movements 1 1 - Exam GENERAL DESCRIPTION: An elderly female up in the bed in no distress RESPIRATORY SYSTEM: Unlabored breathing , decreased breath sounds at bases HEART: S1 S2 regular rate and rhythm , ABDOMEN: Soft , no tenderness EXTREMITIES: No edema feet - Labs CBC & Chem 7: 01/16/25 07:21 01/16/25 07:21 Labs: Abnormal Lab Results - Last 24 Hours (Table) 01/14/25 01/14/25 01/15/25 Range/Units 16:34 20:27 01:39 RBC (4.10-5.20) 10*6/uL Hgb (12.0-15.0) g/dL Hct (37.2-46.3) % Plt Count (140-440) 10*3/uL Immature Gran # (0.00-0.04) 10*3/uL Lymphocytes # (0.90-5.00) 10*3/uL Monocytes # (0.20-1.00) 10*3/uL Eosinophils # (0.04-0.35) 10*3/uL Sodium (137-145) mmol/L BUN (7-17) mg/dL Glucose (74-99) mg/dL POC Glucose (mg/dL) 375 H 361 H 240 H (70-110) mg/dL 01/15/25 01/15/25 01/15/25 Range/Units 06:08 06:51 06:51 RBC 3.31 L (4.10-5.20) 10*6/uL Hgb 9.9 L (12.0-15.0) g/dL Hct 30.3 L (37.2-46.3) % Plt Count 80 L (140-440) 10*3/uL Immature Gran # 0.06 H (0.00-0.04) 10*3/uL Lymphocytes # 0.55 L (0.90-5.00) 10*3/uL Monocytes # 0.14 L (0.20-1.00) 10*3/uL Eosinophils # 0.86 H (0.04-0.35) 10*3/uL Sodium 133 L (137-145) mmol/L BUN 41 H (7-17) mg/dL Glucose 106 H (74-99) mg/dL POC Glucose (mg/dL) 111 H (70-110) mg/dL 01/15/25 Range/Units 12:17 RBC (4.10-5.20) 10*6/uL Hgb (12.0-15.0) g/dL Hct (37.2-46.3) % Plt Count (140-440) 10*3/uL Immature Gran # (0.00-0.04) 10*3/uL Lymphocytes # (0.90-5.00) 10*3/uL Monocytes # (0.20-1.00) 10*3/uL Eosinophils # (0.04-0.35) 10*3/uL Sodium (137-145) mmol/L BUN (7-17) mg/dL Glucose (74-99) mg/dL POC Glucose (mg/dL) 253 H (70-110) mg/dL Assessment and Plan (1) Positive blood culture Current Visit: Yes Status: Acute Code(s): R78.81 - BACTEREMIA SNOMED Code(s): 665099154 (2) Leukocytosis Current Visit: Yes Status: Acute Code(s): D72.829 - ELEVATED WHITE BLOOD CELL COUNT, UNSPECIFIED SNOMED Code(s): 022740883 (3) Oropharyngeal candidiasis Current Visit: Yes Status: Acute Code(s): B37.0 - CANDIDAL STOMATITIS SNOMED Code(s): 85381730 Plan: 1patient with a positive blood culture with staph epi which is more likely skin contamination this patient who recently did have a right hip replacement however the right hip surgical site incision is currently healed with no cellulitis and the patient denies having any pain to the right hip area, no need for vancomycin however blood culture has been repeated which has been negative 2the patient has developed significant subcutaneous emphysema patient is status post placement of below holes to try to relieve the subcutaneous emphysema with a 14-gauge Angiocath by CT surgery and patient did have improvement to the subcutaneous emphysema especially following the head and neck area 3-patient is afebrile white count is almost normalized has completed course of oral Diflucan currently on nystatin swish and swallow Dictation was produced using [employer] dictation software. please excuse any grammatical, word or spelling errors. Time with Patient: Less than 30
--- NOTE | 2025-01-16 16:57 | P.PN ---
Subjective Progress Note Date: 01/16/25 Principal diagnosis: Reason for follow-up is a positive blood culture/leukocytosis/thrush Patient is a 74-year-old female with a past medical history significant for Asthma, Blood Disorder, Coronary Artery Disease (CAD), Chest Pain / Angina, Heart Failure, Diabetes Mellitus, Eye Disorder, GERD/Reflux, Hyperlipidemia, Hypertension, Myocardial Infarction ([place]), Musculoskeletal Disorder, Osteoarthritis (OA), Renal Disease, Skin Disorder, Supraventricular Tachycardia (SVT), Thyroid Disorder who recently did have a right hip replacement, patient presented the hospital with increasing shortness of breath and cough did have a positive blood culture prompting this consultation. On today's evaluation that is 01/16/2025, Patient is afebrile this morning patient denies having any chest pain she is breathing more comfortably he is down to 35% FiO2 occasional cough no abdominal pain or diarrhea. Patient white count 6.34, creatinine 0.75 Objective - Vital Signs Vital signs: Vital Signs Temp 97.5 F L 01/16/25 09:01 Pulse 64 01/16/25 12:30 Resp 14 01/16/25 12:30 BP 119/68 01/16/25 12:30 Pulse Ox 97 01/16/25 12:30 FiO2 45 01/16/25 12:10 Intake & Output 01/15/25 01/16/25 01/16/25 18:59 06:59 18:59 Intake Total 370 360 Output Total 1800 200 Balance -1430 160 Weight 74.5 kg Intake: IV 10 Invasive Line 9 10 Oral 360 360 Output: Urine 1800 200 Other: Voiding Method External Catheter External Catheter External Catheter # Voids 0 # Bowel Movements 1 - Exam GENERAL DESCRIPTION: An elderly female up in the bed in no distress RESPIRATORY SYSTEM: Unlabored breathing , decreased breath sounds at bases HEART: S1 S2 regular rate and rhythm , ABDOMEN: Soft , no tenderness EXTREMITIES: No edema feet - Labs CBC & Chem 7: 01/16/25 07:21 01/16/25 07:21 Labs: Abnormal Lab Results - Last 24 Hours (Table) 01/15/25 01/15/25 01/15/25 Range/Units 17:22 20:05 23:10 RBC (4.10-5.20) 10*6/uL Hgb (12.0-15.0) g/dL Hct (37.2-46.3) % Plt Count (140-440) 10*3/uL Lymphocytes # (0.90-5.00) 10*3/uL Monocytes # (0.20-1.00) 10*3/uL Sodium (137-145) mmol/L Carbon Dioxide (22-30) mmol/L BUN (7-17) mg/dL Glucose (74-99) mg/dL POC Glucose (mg/dL) 295 H 306 H 223 H (70-110) mg/dL 01/16/25 01/16/25 01/16/25 Range/Units 01:59 06:07 07:21 RBC 3.35 L (4.10-5.20) 10*6/uL Hgb 9.9 L (12.0-15.0) g/dL Hct 30.9 L (37.2-46.3) % Plt Count 87 L (140-440) 10*3/uL Lymphocytes # 0.30 L (0.90-5.00) 10*3/uL Monocytes # 0.12 L (0.20-1.00) 10*3/uL Sodium (137-145) mmol/L Carbon Dioxide (22-30) mmol/L BUN (7-17) mg/dL Glucose (74-99) mg/dL POC Glucose (mg/dL) 259 H 159 H (70-110) mg/dL 01/16/25 01/16/25 Range/Units 07:21 11:41 RBC (4.10-5.20) 10*6/uL Hgb (12.0-15.0) g/dL Hct (37.2-46.3) % Plt Count (140-440) 10*3/uL Lymphocytes # (0.90-5.00) 10*3/uL Monocytes # (0.20-1.00) 10*3/uL Sodium 134 L (137-145) mmol/L Carbon Dioxide 31 H (22-30) mmol/L BUN 33 H (7-17) mg/dL Glucose 133 H (74-99) mg/dL POC Glucose (mg/dL) 180 H (70-110) mg/dL Microbiology - Last 24 Hours (Table) 01/09/25 15:00 Blood Culture - Final Blood Assessment and Plan (1) Positive blood culture Current Visit: Yes Status: Acute Code(s): R78.81 - BACTEREMIA SNOMED Code(s): 476743975 (2) Leukocytosis Current Visit: Yes Status: Acute Code(s): D72.829 - ELEVATED WHITE BLOOD CELL COUNT, UNSPECIFIED SNOMED Code(s): 572642761 (3) Oropharyngeal candidiasis Current Visit: Yes Status: Acute Code(s): B37.0 - CANDIDAL STOMATITIS SNOMED Code(s): 66407550 Plan: 1patient with a positive blood culture with staph epi which is more likely skin contamination this patient who recently did have a right hip replacement however the right hip surgical site incision is currently healed with no cellulitis and the patient denies having any pain to the right hip area, no need for vancomycin however blood culture has been repeated which has been negative 2the patient has developed significant subcutaneous emphysema patient is status post placement of below holes to try to relieve the subcutaneous emphysema with a 14-gauge Angiocath by CT surgery and patient did have improvement to the subcutaneous emphysema especially following the head and neck area 3-patient is afebrile white count has normalized patient will complete a course of Diflucan as well as cefepime currently on nystatin swish and swallow we will monitor closely off antibiotic Dictation was produced using [employer] dictation software. please excuse any grammatical, word or spelling errors. Time with Patient: Less than 30
[2025-01-16 20:15] LABS: Glucose,Whole Blood 81 mg/dL (70-110)
[2025-01-17 01:49] LABS: Glucose,Whole Blood 155 mg/dL (70-110)
--- NOTE | 2025-01-17 05:05 | P.PN ---
Subjective Progress Note Date: 01/16/25 Patient is a 74-year-old female with hypertension, hyperlipidemia, DM (insulin- dependent), obesity, CAD status post CABG, ischemic cardiomyopathy (EF 25 to 30% with AICD), asthma, and osteoarthritis here for evaluation of a fall with generalized weakness. Patient reported that she developed shortness of breath, dry cough, chills, bilateral extremity swelling and generalized weakness when she was discharged from rehab on 12/09 from [facility]. She recently had a right direct anterior total hip arthroplasty on 11/24/2024. Since then she has fallen twice at home due to missed steps. She reported that her swelling has improved gradually over the past 2 weeks. On arrival to the ED, she also reported to have altered mental status. She denied chest pain, palpitations, nausea, vomiting, abdominal pain, extremity swelling, focal weakness, recent prolonged travel. On admission: Vitals: Temp 99 Fahrenheit, TN 99, RR 16, BP 114/60, O2 saturation 89% on room air Labs: WBC 17.4, hemoglobin 9.5, sodium 132, potassium 4.4, bicarb 23, BUN 16, creatinine 0.9, glucose 124, lactic acid 1.8, calcium 8.8, phosphorus 2.4, magnesium 1.7, TSH 6.7. Liver enzymes within normal ranges. Troponin negative. proBNP 3700. Urinalysis unremarkable. Cepheid 4 Plex negative. Urine Legionella antigen negative. Imaging: Chest x-ray showed cardiomegaly with prominent pulmonary vasculature and patchy bilateral lung infiltrates. Hip pelvis x-ray showed no acute osseous abnormalities. EKG showed V paced at a rate of 87, no ST-T changes, QTc 446 MS. 12/20/2024 patient seen and examined at bedside. No acute events overnight. Still requiring oxygen support with 2 to 3 L of nasal cannula. Patient has no symptoms or complaints. Labs: WBC 15.9, hemoglobin 9.3, MCV 93.6, platelet count 371,000, sodium 139, potassium 4.2, bicarb 27, BUN 16, creatinine 1.01, glucose 133, calcium 9.1, Pro-Fortino 0.22. Blood cultures positive for staph mecA/C positive. Imaging; chest x-ray independently interpreted showing improving pulmonary infiltrates 12/21/2024 patient seen and examined at bedside. No acute events overnight. Patient still requiring 2-3L oxygen. Labs: WBC 21.16, hemoglobin 9, MCV 92.9, platelet count 408,000, sodium 137, potassium 4.5, bicarb 30, BUN 29, creatinine 1.28, glucose 172, calcium 9.3, BNP 2180. Blood cultures positive for Staphylococcus epidermidis MEC A positive. Repeat CXR shows minimal improvement 12/22/2024 patient seen and examined at bedside. No acute events overnight. Patient still requiring 3 to 4 L oxygen via nasal cannula Labs: WBC 7.29, hemoglobin 9.4, platelet count 386,000, sodium 136, potassium 4.7, bicarb 28, BUN 37, creatinine 1.06, glucose 176, calcium 8.8 Imaging; echocardiogram showed LVEF 40 to 45% with moderate global hypokinesis, mild mitral and tricuspid regurgitation 12/23/2024 patient seen and examined at bedside. No acute events overnight. Patient oxygen requirements are increasing from 5 to 6 L high flow nasal cannula. Still having dry cough. Labs: WBC 7 point 0.6, hemoglobin 9.2, MCV 93, platelet count 381,000, sodium 130, potassium 4.4, chloride 102, bicarb 28, BUN 45, creatinine 1.11, glucose 96, calcium 9.1. ABG showed PO2 50 pH 7.42 and pCO2 45 Imaging; chest CT shows marked diffuse scattered groundglass opacities consist ent with pulmonary edema, ARDS or pneumonia, moderate cardiomegaly, 3.4 cm dilation of the main pulmonary artery 12/24/2024 Patient evaluated in follow-up on the medical floor. Patient remains on oxygen support increased up to 10 L high flow cannula with saturations of 90%. patient is currently on a course of IV Solu-Medrol as well as IV Lasix twice daily. She has completed a course of antibiotics. She is also maintained on a fluid restriction. ID and pulmonology are following this patient closely. Blood culture finalized revealing Staphylococcus epidermidis which is felt to be contaminant species 12/25/2024 patient seen and examined at bedside. Patient in the ICU. Requiring high flow nasal cannula rate of 50 FiO2 55% Labs: WBC 17.9, hemoglobin 9.7, MCV 90.8, platelet count 250,000 sodium 137, potassium 4.8, bicarb 31, creatinine, BUN 49, creatinine 1.16, glucose 224, mag 2.2, calcium 9.1. ABG pH 7.46, pCO2 43, bicarb 66 Imaging; chest x-ray showed so far persistent diffuse increased lung markings present 12/26/2024 patient seen and examined at bedside. Still requiring high flow nasal cannula rate of 50 FiO2 60% Labs: WBC 19.5, hemoglobin 10, chloride 97, bicarb 33, potassium 4.2, sodium 137, creatinine 1.07, BUN 54, glucose 280, calcium 9.3, proBNP 1950, Pro-Fortino less than 0.2 Imaging: Chest x-ray showed stable diffuse interstitial infiltrates 12/27/2024 patient seen and examined at bedside. No acute events overnight. Still in the ICU. Still having dry cough. High flow nasal cannula for O2 support flow rate 50 FiO2 60% Labs: WBC 20.3, hemoglobin 10.6, platelet count 370,000, sodium 139, potassium 4.6, bicarb 33, BUN 59, creatinine 0.99, glucose 175, calcium 9.8 Imaging: Chest x-ray today showed stable pulmonary infiltrates 12/28/2024 patient seen and examined at bedside. No acute events overnight. Still in the ICU. Still requiring high flow nasal cannula rate 50 at 50% FiO2 Labs: WBC 19.6, hemoglobin 10.4, sodium 134, potassium 4, bicarb 33, BUN 66, creatinine 1.12, glucose 205, magnesium 2.3 Imaging: Chest x-ray shows stable diffuse interstitial infiltrates 12/29/2024 patient seen and examined at bedside. No acute events overnight. Still in the ICU. No fevers or chills. O2 requirements decreasing. Labs: WBC 26.03, hemoglobin 10.7, sodium 136, bicarb 34, BUN 63, creatinine 1.11, glucose 185, magnesium 2.4 Imaging: Chest x-ray shows improving diffuse pulmonary infiltrates 12/30/2024 patient seen and examined at bedside. No acute events overnight. Downgraded to stepdown unit Currently on high flow nasal cannula 9 L which has improved. Labs: Sodium 136, potassium 4.7, bicarb 23, BUN 65, creatinine 1.2, glucose 186, calcium 9.4 12/31/2024 Patient is resting in the bed. Awake alert and oriented. Breathing status is better. Currently on 9 L oxygen via nasal cannula. No complaints of chest pain or worsening shortness of breath. Laboratory data showed WBC 27.0 hemoglobin 10.5 and platelets 275. Sodium 135 potassium 5.0 chloride 97 bicarb is 32 BUN 66 and creatinine 1.27 and blood sugar 222. 01/01/2025 patient seen and examined at bedside. No new complaints. Still currently on high flow nasal cannula 8 L for O2 support Labs: WBC 24.7, hemoglobin 10.3, sodium 136, potassium 5.1, bicarb 23, BUN 60, creatinine 1.01, glucose 172 Imaging: Chest x-ray today showed persistent pulmonary diffuse interstitial infiltrates 01/02/2025 patient seen and examined at bedside. Patient increased O2 requirements and is currently on Airvo flow 50 FiO2 60% Labs: sodium 136, potassium 5.1 bicarb 33, BUN 60, creatinine 1.01, glucose 172, calcium 9.5 Imaging: Chest x-ray this morning shows ongoing extensive patchy airspace opacities, new subcutaneous emphysema at the right base of the neck 01/03/2025 patient seen and examined at bedside. Patient still on Airvo low flow 50 FiO2 60% Labs: WBC 21.6, hemoglobin 10.3, platelet count 236,000, sodium 135, potassium 5.4, BUN 44, creatinine 0.96, glucose 181, calcium 9.3 Imaging: Chest x-ray today showed increasing subcutaneous emphysema at the left base of the neck with small pneumothorax on the right chest, stable bilateral airspace opacities 01/04/2025 Patient was on high flow oxygen patient is presently on 15 L 50% FiO2. Patient presently has 15% pneumothorax patient had a CT of the chest. Patient has significant subcutaneous emphysema. 01/05/2025 patient seen and examined at bedside. No acute events overnight. Patient currently on high flow nasal cannula flow 50, FiO2 45%. Complaining of chest pressure when coughing. Imaging: Chest x-ray today shows stable right-sided pneumothorax and bilateral subcutaneous neck emphysema with stable bilateral diffuse opacities 01/13. Dr. CHRISTIANSON took over care. Patient is currently lethargic, currently on heat ed high flow. Family at the bedside. 01/14/2025 Assumed care of this patient today she remains in the cardiac unit. Her chest x-ray today reveals a similar small bilateral pneumothoraces right greater than left, similar mid pneumomediastinum similar diffuse subcutaneous emphysema. Patchy scattered airspace opacities within the lungs suggesting pulmonary edema and/or ARDS. CT surgery following postoperative day #5 placement of blowhole to try and relieve the subcutaneous emphysema with a 14-gauge Accu cath. Patient remains on Airvo with 50% FiO2 and a 50 L high flow rate. Patient did have positive blood culture for Staphylococcus epidermidis with repeat being final and negative. She had a repeat blood culture done on January 09 which is currently pending and negative so far. Most recent blood work reveals a white blood cell count 10.94, hemoglobin 9.8, sodium level of 132, BUN of 43 creatinine 0.80. Patient is currently afebrile. 01/15/2025 Patient is seen in follow-up today and continues on Airvo 50/55% and becomes extremely exerted with minimal exertion. Patient also reporting to having some feelings of constipation although feels it may be a hemorrhoid that continues to be bothersome, will add Anusol and continue on stool softeners. Patient is extremely weak and have recommended/OT therapy. Patient is not quite stable at this time and desats quickly. Patient is afebrile with no reports of chest pain or palpitations. Patient remains dyspneic during conversation as well. 01/16/2025 Patient is seen in follow-up today with multiple consultations following including pulmonary and cardiothoracic surgery. Patient did have 2 blow holes placed bilaterally although the right one appears to have fallen out and will remain out and continue with the left side. Chest x-ray today shows similar right small pneumothorax, unchanged pneumomediastinum, unchanged diffuse subcu emphysema and unchanged patchy scattered airspace opacities in the lungs. Patient is continued with incentive spirometer and has been encouraged to continue using at least 10 times every hour while awake. FiO2 is being adjusted and weaned to 45% and patient is maintained on breathing treatments along with steroids. Pulmonary following closely along with CT surgery. Patient also being followed by infectious disease and has completed antibiotic course and being closely monitored off antibiotic therapy. Patient continues with significant emphysema noted and will continue supportive care. Will follow-up with case management/social work as there was discussion of possible transfer to select facilities for continued ongoing care. Review of systems: Constitutional: reports of fatigue, no fever, or chills Cardiovascular: No reports of chest pain or palpitations Respiratory: reports of continued shortness of breath and dry cough with no phlegm production, weak cough GI: No reports of nausea, vomiting, or diarrhea, reporting feelings of constipation although did have a bowel movement yesterday : No reports of dysuria or retention Neurovascular: reports of extreme weakness All medications have been reviewed PHYSICAL EXAMINATION: GENERAL: The patient is lethargic although arousable, alert and oriented x3 ill- looking, elderly appearing, obese HEENT: Pupils are round and equally reacting to light. EOMI. No scleral icterus. No conjunctival pallor. Normocephalic, atraumatic. No pharyngeal erythema. No thyromegaly. Significant facial swelling especially on the left side with significant left upper eyelid swelling CARDIOVASCULAR: S1 and S2 muffled PULMONARY: Diminished breath sounds at bases, subcutaneous emphysema ABDOMEN: Soft, nontender, nondistended, normoactive bowel sounds. No palpable organomegaly. MUSCULOSKELETAL: No joint swelling or deformity. EXTREMITIES: No cyanosis, clubbing, or pedal edema. NEUROLOGICAL: Gross neurological examination did not reveal any focal deficits. Diffusely weak SKIN: No rashes. Significant emphysema noted of the neck and clavicle area and continued swelling of the face Assessment: Acute hypoxemic respiratory failure secondary to ARDS Tiny bilateral pneumothoraces status post bilateral blowholes placed right sided blowhole has fallen out 01/16/2025 Pneumomediastinum Extensive subcutaneous emphysema secondary to above Acute febrile illness, recovered Stage II pressure injury on bilateral medial thighs, secondary to prolonged hospitalization and being bedbound Stage II pressure injury on the left buttock, secondary to prolonged hospitalization and being bedbound Acute leukocytosis, improving History of right direct anterior total hip arthroplasty on Nov 24 2024 Acute blood loss anemia, expected outcome of surgery Hypertension History of hyperlipidemia Insulin-dependent diabetes mellitus Obesity with a BMI of 35.4 kg/m Coronary artery disease, with history of CABG and cardiac stents History of ischemic cardiomyopathy with an ejection fraction improved to 40 to 45% Implanted AICD/pacemaker Hemorrhoid, acute, likely secondary to constipation Hypothyroidism Anxiety/depression GI prophylaxis protonix DVT prophylaxis heparin Full Code Plan: Multiple consultations following including pulmonary and patient is maintained on high flow Airvo and being titrated down, currently 4550% FiO2 and continues to report extreme dyspnea with minimal exertion. Patient is dyspneic during conversation and winded. Patient is lethargic and has been encouraged to increase activity as tolerated. Patient will need extensive PT/OT therapy once respiratory status is improved Patient to continue bowel regimen and supportive care with frequent offloading and Optifoam to the buttock area as well as bilateral medial thighs Patient being followed by CT surgery as well continues with left-sided blow holes and emphysema persists. Right side blow hole has fallen out, continue with daily chest x-rays Continue supportive care Continue to encourage incentive spirometer use at least 10 times every hour while awake follow-up on repeat labs. Replace electrolytes per protocol Overall prognosis is guarded Will discuss further with consultations as well as case management as there was discussion of transferring to select specialties for continued ongoing care. The impression and plan of care has been dictated by Zoila Meier, Nurse Practitioner as directed. Dr. Bekah MD I have performed a history and physical examination and medical decision making of this patient, discussed the same with the dictator, and agree with the dictators assessment and plan as written, documented as a scribe. Based on total visit time, I have performed more than 50% of this visit. Objective - Vital Signs Vital signs: Vital Signs Temp 97.5 F L 01/16/25 09:01 Pulse 88 01/16/25 09:48 Resp 18 01/16/25 09:01 BP 128/63 01/16/25 09:01 Pulse Ox 98 01/16/25 09:43 FiO2 50 01/16/25 09:43 Intake & Output 01/15/25 01/16/25 01/16/25 18:59 06:59 18:59 Intake Total 370 360 Output Total 1800 200 Balance -1430 160 Weight 74.5 kg Intake: IV 10 Invasive Line 9 10 Oral 360 360 Output: Urine 1800 200 Other: Voiding Method External Catheter External Catheter # Voids 0 # Bowel Movements 1 - Labs CBC & Chem 7: 01/16/25 07:21 01/16/25 07:21 Labs: Abnormal Lab Results - Last 24 Hours (Table) 01/15/25 01/15/25 01/15/25 Range/Units 12:17 17:22 20:05 RBC (4.10-5.20) 10*6/uL Hgb (12.0-15.0) g/dL Hct (37.2-46.3) % Plt Count (140-440) 10*3/uL Lymphocytes # (0.90-5.00) 10*3/uL Monocytes # (0.20-1.00) 10*3/uL Sodium (137-145) mmol/L Carbon Dioxide (22-30) mmol/L BUN (7-17) mg/dL Glucose (74-99) mg/dL POC Glucose (mg/dL) 253 H 295 H 306 H (70-110) mg/dL 01/15/25 01/16/25 01/16/25 Range/Units 23:10 01:59 06:07 RBC (4.10-5.20) 10*6/uL Hgb (12.0-15.0) g/dL Hct (37.2-46.3) % Plt Count (140-440) 10*3/uL Lymphocytes # (0.90-5.00) 10*3/uL Monocytes # (0.20-1.00) 10*3/uL Sodium (137-145) mmol/L Carbon Dioxide (22-30) mmol/L BUN (7-17) mg/dL Glucose (74-99) mg/dL POC Glucose (mg/dL) 223 H 259 H 159 H (70-110) mg/dL 01/16/25 01/16/25 Range/Units 07:21 07:21 RBC 3.35 L (4.10-5.20) 10*6/uL Hgb 9.9 L (12.0-15.0) g/dL Hct 30.9 L (37.2-46.3) % Plt Count 87 L (140-440) 10*3/uL Lymphocytes # 0.30 L (0.90-5.00) 10*3/uL Monocytes # 0.12 L (0.20-1.00) 10*3/uL Sodium 134 L (137-145) mmol/L Carbon Dioxide 31 H (22-30) mmol/L BUN 33 H (7-17) mg/dL Glucose 133 H (74-99) mg/dL POC Glucose (mg/dL) (70-110) mg/dL Microbiology - Last 24 Hours (Table) 01/09/25 15:00 Blood Culture - Final Blood
[2025-01-17 06:18] LABS: Glucose,Whole Blood 241 mg/dL (70-110)
--- NOTE | 2025-01-17 07:05 | XR ---
EXAMINATION TYPE: XR chest 1V portable DATE OF EXAM: 01/17/2025 6:51 AM COMPARISON: Multiple radiographs, with the most recent on 01/16/2025 TECHNIQUE: XR chest 1V portable Portable AP radiograph of the chest. CLINICAL INDICATION:Female, 74 years old with history of Subcutaneous emphysema; FINDINGS: Lungs/Pleura: Similar small right pneumothorax. No discrete left pneumothorax identified. Scattered a irspace opacities throughout the lungs are similar. No sizable pleural effusion. Pulmonary vascularity: Unremarkable. Heart/mediastinum: Cardiomediastinal silhouette is enlarged. Pneumomediastinum is unchanged. Three l ead cardiac conduction device overlying the left hemithorax with lead tips projecting over the right ventricle, right atrium and coronary sinus. Musculoskeletal: No acute osseous pathology. Midline sternotomy wires are noted. Other findings: No significant change in diffuse subcutaneous emphysema scattered throughout the visu alized thorax and visualized neck. IMPRESSION: 1. Unchanged small right pneumothorax, pneumomediastinum and diffuse subcutaneous emphysema. 4. Unchanged patchy scattered airspace opacities within the lungs. [facility], , 01/17/2025 7:03 AM
--- NOTE | 2025-01-17 10:29 | P.PN ---
Subjective Progress Note Date: 01/17/25 Principal diagnosis: Extensive subcutaneous emphysema. Past medical history significant for coronary artery disease with previous PCI and CABG, ischemic cardiomyopathy status post AICD placement, hypertension, hyperlipidemia, insulin-dependent diabetes, hypothyroid. Status post day #8 placement of below holes to try to relieve the subcutaneous emphysema with a 14-gauge Angiocath. The patient was seen and examined in follow-up today January 17, 2025 at her bedside on the third floor cardiac stepdown unit. She is currently laying in bed, continues on Airvo with oxygen saturations 92%, FiO2 50% and flow rate 35. She is achieving 500 mL on her incentive spirometry with encouragement. 14-gauge Angiocath's remain in place, to her left upper chest. Chest x-ray results revi ewed. Subcutaneous emphysema remains present to her chest, neck and surrounding her left eye. Objective - Vital Signs Vital signs: Vital Signs Temp 97.8 F 01/17/25 09:01 Pulse 71 01/17/25 09:01 Resp 16 01/17/25 09:01 BP 106/55 01/17/25 09:01 Pulse Ox 92 L 01/17/25 09:01 FiO2 45 01/17/25 09:01 Intake & Output 01/16/25 01/17/25 01/17/25 18:59 06:59 18:59 Intake Total 360 118 Output Total 1200 Balance -840 118 Weight 63.5 kg Intake: Oral 360 118 Output: Urine 1200 Other: Voiding Method External Catheter Bedpan Diaper Incontinent External Catheter # Voids 1 # Bowel Movements 1 - Exam CONSTITUTIONAL: Appears comfortable, cooperative, no acute distress. RESPIRATORY: Lungs sounds diminished throughout bilaterally. Respirations symmetrical, nonlabored. Currently on Airvo with FiO2 50% and flow rate 35 with oxygen saturation 92%. Able to achieve 500 mL on incentive spirometry. Strong cough. CARDIOVASCULAR: S1, S2 present. Regular rate and rhythm, V paced rhythm on telemetry. Palpable peripheral pulses bilaterally. No edema present. No calf pain or tenderness noted. GASTROINTESTINAL: Abdomen soft, nontender, nondistended. Active bowel sounds present 4 quadrants. Tolerating diet. GENITOURINARY: Continues to void clear, yellow urine. INTEGUMENTARY: Skin is warm and dry with evidence of good perfusion. Diffuse subcutaneous emphysema to her chest, back and neck. Subcutaneous emphysema improving. Subcutaneous emphysema surrounding her left eye. NEUROLOGIC: Cranial nerves II through XII intact. No focal deficits. MUSKULOSKELETAL: Able to move all extremities, strength equal bilaterally, generalized weakness. PSYCHIATRIC: Alert and oriented to person place and time, appropriate affect, intact judgment and insight. - Allied health notes Allied health notes reviewed: nursing - Labs CBC & Chem 7: 01/16/25 07:21 01/16/25 07:21 Labs: Abnormal Lab Results - Last 24 Hours (Table) 01/16/25 01/16/25 01/17/25 Range/Units 11:41 16:18 01:47 POC Glucose (mg/dL) 180 H 200 H 155 H (70-110) mg/dL 01/17/25 Range/Units 06:16 POC Glucose (mg/dL) 241 H (70-110) mg/dL - Imaging and Cardiology Chest x-ray: report reviewed, image reviewed Assessment and Plan Assessment: Extensive subcutaneous emphysema extending upper chest, neck, face, status post placement of 2 angio cath 14-gauge subclavicular acting as blowhole's Bilateral tiny pneumothoraces, pneumomediastinum found on CT Pneumonia Acute hypoxic respiratory failure secondary to above History of coronary artery disease with previous PCI and CABG Ischemic cardiomyopathy status post AICD placement Hypertension Hyperlipidemia Insulin-dependent diabetes Hypothyroid Plan: We will remove her left 14-gauge Angiocath. Encourage use of incentive spirometry 10 times every hour while awake. Increase activity as tolerated. Medical management of other comorbidities per internal medicine, pulmonary critical care service, and infectious disease. We will continue to monitor the patient on an as-needed basis. Please feel free to reconsult if necessary. Time with Patient: Less than 30
[2025-01-17 11:28] LABS: Glucose,Whole Blood 258 mg/dL (70-110)
--- NOTE | 2025-01-17 14:40 | P.PN ---
Subjective Progress Note Date: 01/17/25 Patient is a 75-year-old female with past medical history significant for hypertension, hyperlipidemia, insulin-dependent diabetes mellitus, obesity, coronary artery disease with previous CABG, ischemic cardiomyopathy with an ejection fraction of 25 to 30% with AICD, asthma, and osteoarthritis. Of note, patient recently underwent right direct anterior total hip arthroplasty on 11/24/2024. She was discharged from the hospital to [facility] for rehabilitation. While at the outside facility, developed shortness of breath, coughing, and generalized weakness. States she was released from [facility] to home last Wednesday on November. Since then, she has fallen twice while at home. Brought in by EMS yesterday evening hypoxic and confused. She was placed on supplemental oxygen. Workup in the emergency department including a chest x-ray showing patchy bilateral lung infiltrates concerning for congestive heart failure or atypical pneumonias. CBC: WBC count 14.7, hemoglobin 9.5 g/dL, platelets 374. BMP: Sodium 132, potassium 4.4, chloride 100, serum bicarb 23, BUN 16, creatinine 0.92, glucose 124. Lactic 1.8. LFTs unremarkable. Troponin less than 0.012. NT proBNP 6.74. Viral 4 Plex negative for influenza A/B, RSV, COVID. Urinalysis unremarkable for UTI. Patient currently being evaluated on the general medical floor. She is alert and oriented x 3. Endorses above menti oned complaints. Does report history of asthma. Has had increased work of breathing over the last couple weeks. Suffering from persistent nonproductive cough over the same timeframe. States her symptoms actually started at [facility]. She has had a poor appetite with occasional nausea and vomiting. She has been able to take some of her home medications. Has had intermittent fevers with a Tmax of 100.8 F. Was started on empiric antibiotics in the ED, in the form azithromycin and Rocephin. Normal saline infusing at 50 mL/h. Denies any chest pain. Does endorse unilateral right lower lower extremity edema. No heart palpitations, syncopal events, hemoptysis. Current vital signs: Temperature 100.8 F, heart rate 95 bpm, blood pressure 124/54 mmHg, nontachypneic, SpO2 recorded at 96% on 3 L/min nasal cannula. The patient is seen today December 20, 2024 and follow-up on the regular medical floor. She is currently sitting up in bed. Awake and alert in no acute distress. Feeling a bit better today compared to yesterday. Maintaining O2 saturations in the 90s on 3 L/min per nasal cannula. Chest x-ray shows continued infiltrate of the right lung with improvement in the left lung. Blood culture is coming back positive. ID pending. White count 15.9. Hemoglobin 9.3. Platelets 371. Sodium 139. Potassium 4.2. Bicarb 27. BUN 16. Creatinine 1.01. Glucose 133. She remains on DuoNeb inhalations, IV Solu- Medrol, IV diuretics. Lovenox for DVT prophylaxis. Antibiotics in the form of ceftriaxone. The patient is seen today December 21, 2024 in follow-up on the regular medical floor. She is currently sitting up in a chair. Awake and alert in no acute distress. Maintaining O2 saturations in the 90s on 3 L/min per nasal cannula. She has been afebrile. Hemodynamically stable. Blood cultures showing staph epidermidis, most likely contaminant. White count 21.1. Hemoglobin 9.0. Platelets 409. Sodium 137. Potassium 4.5. Bicarb 30. BUN 29. Creatinine 1. 28. Glucose 172. proBNP 2180. She remains on DuoNeb inhalations, Solu-Medrol. Antibiotics in the form of ceftriaxone. Lovenox for DVT prophylaxis. Remains on IV diuretics. No accurate intake and output recorded. Chest x-ray showing similar findings with basilar infiltrates right greater than left. The patient is seen today December 22, 2024 in follow-up on the regular medical floor. She is sitting up at the bedside. Awake and alert in no acute distress. She has been slow to progress. She is still dyspneic with minimal exertion. Dyspneic with conversation. She is maintaining O2 saturations in the 90s on 7 L high flow nasal cannula. Echocardiogram reveals impaired left ventricular systolic function with an ejection fraction [address] scan of the chest revealed marked diffuse scattered groundglass opacities consistent with pulmonary edema, ARDS or pneumonia. AICD in place. Blood culture positive for Staphylococcus epidermidis. White count 17.9. Hemoglobin 9.4. Platelets 386. Sodium 136. Potassium 4.7. Bicarb 28. BUN 37. Creatinine 1.06. Glucose 176. She remains on DuoNeb inhalations, Solu-Medrol. Remains on oral diuretics. Antibiotics in the form of ceftriaxone. Heparin for DVT prophylaxis. The patient is seen today December 23, 2024 in follow-up on the regular medical floor. She is currently resting in bed. Awake and alert in no acute distress. Feeling a bit better today compared to yesterday. She is maintaining O2 saturations in the 90s on 6 L high flow nasal cannula. She remains afebrile. Hemodynamically stable. Initial blood cultures showing staph epidermidis. Follow-up blood culture reveals no growth. White count 17.6. Hemoglobin 9.2. Platelets 381. Sodium 138. Potassium 4.4. Bicarb 28. BUN 45. Creatinine 1.11. Glucose 115. Arterial blood gases on 44% FiO2 revealed a PO2 of 50, [id number] and a pH of 7.42. She remains on DuoNeb inhalations, Solu-Medrol and Robitussin as needed. Heparin for DVT prophylaxis. She remains on Lasix 40 mg every 12 hours. No accurate intake and output recorded. The patient is seen today December 24, 2024 in follow-up on the regular medical floor. She is awake and alert in no acute distress. Resting in bed. No worsening shortness of breath, cough or congestion. She is still requiring 10 L high flow nasal cannula to maintain O2 saturations in the 90s. Lung sounds improved. Blood cultures were positive for Staphylococcus epidermidis. Most likely a contaminant. Follow-up blood culture revealed no growth. Glucose 233. She remains on DuoNeb inhalations, Symbicort, Solu-Medrol. She remains on IV Lasix. Heparin for DVT prophylaxis. Currently in a -1.9 L balance. The patient is seen today December 25, 2024 in follow-up in the intensive care unit. She was transferred down here last evening after having issues with worsening hypoxemia. She is currently on Airvo high flow oxygen at 50 L and 50% FiO2. She is afebrile. Hemodynamically stable. Chest x-ray continues to show cardiomegaly with pulmonary vascular congestion and bilateral pleural effusions. Follow-up blood culture revealed no growth. White count 17.9. Hemoglobin 9.7. Platelets 350. Sodium 137. Potassium 4.8. Bicarb 31. BUN 49. Creatinine 1.16. Glucose 224. She remains on DuoNeb inhalations, Symbicort, Solu-Medrol. Heparin for DVT prophylaxis. She remains on Lasix 40 mg IV every 12 hours. C urrently in a -4 L balance. The patient is seen today December 26, 2024 in follow-up in the intensive care unit. She is currently sitting up in bed. Awake and alert in no acute distress. Feeling a bit better today compared to yesterday. She is still high flow oxygen at 50 L and 60% FiO2. No IV fluids. She has been afebrile. Hemodynamically stable. Chest x-ray continues to show diffuse infiltrates bilaterally right greater than left. Follow-up blood culture reveals no growth. White count 1 9.5. Hemoglobin 10.0. Platelets 359. Sodium 137. Potassium 4.2. Bicarb 33. BUN 54. Creatinine 1.07. Glucose 280. Continued on Lasix 40 mg IV every 12 hours. Currently net -3.3 L balance. She remains on DuoNeb and elations, Symbicort, Solu-Medrol. Robitussin for her cough. The patient is seen today December 28, 2024 in follow-up in the intensive care unit. She is awake and alert in no acute distress. Sitting up in bed. Remains on Airvo high flow oxygen at 50 L and 50% FiO2. No IV fluids. Chest x-ray is showing fluid volume overload but improving. Initial blood culture positive for staph epidermidis. Follow-up blood culture revealed no growth. White count 19.6. Hemoglobin 10.4. Platelets 352. Sodium 134. Potassium 4.0. Bicarb 33. BUN 66. Creatinine 1.12. Glucose 205. She is continued on DuoNeb inhalations, Symbicort, Solu-Medrol. Heparin for DVT prophylaxis. She remains on Lasix 40 mg IV every 12 hours. Currently in a -700 mL balance. The patient is seen today December 29, 2024 in follow-up in the intensive care unit. She is currently sitting up in bed. Awake and alert in no acute distress. Deny any worsening shortness of breath, cough or congestion. Feeling better. She is now on 8 L high flow nasal cannula. Chest x-ray continues to show improvement. White count 26.0. Hemoglobin 10.7. Platelets 352. Sodium 136. Potassium 4.3. Bicarb 34. BUN 63. Creatinine 1.11. Glucose 185. She remains on DuoNeb inhalations, Symbicort, Solu-Medrol. Heparin for DVT prophylaxis. Continued on Lasix 40 mg every 12 hours. Currently in a -700 mL balance. The patient is seen today January 08, 2025 in follow-up on the selective care unit. She is currently sitting up in bed. Awake and alert in no acute distress. She had developed extensive subcutaneous emphysema for chest and neck and face. She remains on Airvo high flow oxygen at 50 L and 45% FiO2. Chest x-ray shows similar small bilateral pneumothoraces. Similar pneumomediastinum. Similar diffuse subcutaneous emphysema. Patchy scattered airspace opacity within the lungs suggesting pulmonary edema and/or ARDS. Follow-up blood culture revealed no growth. White count 16.7. Hemoglobin 10.5. Platelets 165. Sodium 134. Potassium 4.6. Bicarb 25. BUN 36. Creatinine 0.77. Glucose 134. She remains on DuoNeb inhalations, Symbicort, Solu-Medrol. Heparin for DVT prophylaxis. Remains on diuretics. Remains on cefepime. The patient is seen today January 09, 2025 in follow-up on the selective care unit. She is awake and alert in no acute distress. Sitting up in bed. Her subcutane ous emphysema is worsening. Her eyes are swollen shut now. CT services are planning to place blow holes today. She remains on Airvo high flow oxygen at 50 L and 45% FiO2. Chest x-ray continues to show similar small bilateral pneumothoraces. Similar pneumomediastinum. Similar diffuse subcutaneous emphysema. Patchy scattered airspace opacities within the lung suggesting pulmonary edema and/or ARDS. Follow-up blood culture revealed no growth. White count 17.3. Hemoglobin 10.7. Platelets 160. Sodium 135. Potassium 4.5. Bicarb 23. BUN 39. Creatinine 0.78. Glucose 193. She remains on DuoNeb and elations, Symbicort, Solu-Medrol. Heparin for DVT prophylaxis. Remains on oral diuretics. Remains on cefepime and Diflucan. The patient is seen today January 10, 2025 in follow-up on the selective care unit. She is currently sitting up in bed. Awake and alert in no acute distress. D oing better today compared to yesterday. She did have two blow hole's placed. Her subcutaneous emphysema has improved. She is able to open her eyes. No worsening shortness of breath, cough or congestion. Continued on Airvo high flow oxygen at 50 L and 44% FiO2. She remains on DuoNeb inhalations, Symbicort, IV Solu-Medrol. Heparin for DVT prophylaxis. Remains on oral diuretics. Remains on cefepime. Chest x-ray shows similar small bilateral pneumothoraces. Similar pneumomediastinum. Similar diffuse subcutaneous emphysema. Patchy scattered airspace opacities bilaterally. White count 16.3. Hemoglobin 10.9. Platelets 142. Sodium 133. Potassium 5.2. Bicarb 24. BUN 40. Creatinine 0.65. Glucose 140. The patient is seen today January 11, 2025 in follow-up on the selective care unit. She is currently awake and alert in no acute distress. Sitting up in bed. Still showing improvement in the subcutaneous emphysema. She is maintaining O2 saturations in the 90s on Airvo high flow oxygen at 50 L and 55% FiO2. She has been afebrile. Hemodynamically stable. Chest x-ray continues to show similar small bilateral pneumothoraces with similar pneumomediastinum. Similar diffuse subcutaneous emphysema. Patchy scattered airspace opacities continue. Initial blood culture showing Staphylococcus epidermidis. Follow-up blood cultures x 2 revealed no growth. White count 15.7. Hemoglobin 10.2. Platelets 121. Sodium 130. Potassium 5.2. Bicarb 23. BUN 45. Creatinine 0.75. Glucose 324. She remains on DuoNeb inhalations, Symbicort, Solu-Medrol. Heparin for DVT prophyla xis. Remains on cefepime. Remains on diuretics. The patient is seen today January 12, 2025 in follow-up on the selective care unit. She is currently sitting up in bed. Awake and alert in no acute distress. Feeling better today compared to yesterday. She has less subcutaneous emphysema. Denies any worsening shortness of breath, cough or congestion. She remains on Airvo high flow oxygen at 50 L and 50% FiO2. She is continued on DuoNeb inhalations, Symbicort, Solu-Medrol. Remains on oral diuretics. Remains on cefepime. Remains on Diflucan. Heparin for DVT prophylaxis. Follow-up blood cultures revealed no growth. White count 14.4. Hemoglobin 10.1. Platelets 110. Sodium 130. Potassium 5.3. Bicarb 26. BUN 41. Creatinine 0.69. Glucose 145. Today's chest x-ray is showing similar small bilateral pneumothoraces. Similar pneumomediastinum. Similar diffuse subcutaneous emphysema. Some improvement in the patchy scattered airspace opacities. The patient is seen today January 13, 2025 in follow-up on the selective care unit. She is awake and alert in no acute distress. Her subcutaneous emphysema appears worse today with her left eye swollen shut. New blow holes placed with #[address] services. She remains on Airvo high flow oxygen at 50 L and 50% FiO2 with O2 saturation at 95%. She has been afebrile. Hemodynamically stable. Chest x-ray continues to show small bilateral pneumothoraces. Similar pneumomediastinum. Diffuse subcutaneous emphysema. Patchy airspace opacities. Blood culture reveals no growth. White count 16.8. Hemoglobin 9.7. Platelets 122. Sodium 133. Potassium 4.8. BUN 44. Creatinine 0.82. Glucose 177. The patient is seen today January 14, 2025 in follow-up on the selective care unit. She is currently sitting up in bed. Awake and alert in no acute distress. Her subcutaneous emphysema is improved today compared to yesterday. Both of her eyes are open. She denies any worsening shortness of breath, cough or congestion. She is still requiring Airvo high flow oxygen at 50 L and 55% FiO2 to maintain O2 saturations in the 90s. Blood cultures revealed no growth. White count 10.9. Hemoglobin 9.8. Platelets 85,000. Sodium 132. Potassium 4.6. Bicarb 26. BUN 43. Creatinine 0.8. Glucose 106. AST 30. ALT 60. Mela st x-ray shows small bilateral pneumothoraces right greater than left. Pneumomediastinum. Diffuse subcutaneous emphysema. Patchy scattered airspace opacities. She is continued on DuoNeb inhalations, Symbicort, Solu-Medrol. Heparin for DVT prophylaxis. Remains on oral diuretics. Remains on cefepime. The patient is seen today January 15, 2025 in follow-up on the selective care unit. She is currently sitting up in bed. Awake and alert in no acute distress. She remains on Airvo high flow oxygen at 50 L and 55% FiO2 with O2 saturations in the 90s. Follow-up chest x-ray continues to show similar right pneumothorax with previously seen left pneumothorax not well-visualized. Similar pneumom ediastinum. Slightly decreased diffuse subcutaneous emphysema. Continued patchy airspace opacities concerning for ARDS. Blood cultures revealed no growth. White count 8.8. Hemoglobin 9.9. Platelets 80,000. Sodium 133. Potassium 4.5. Bicarb 27. BUN 41. Creatinine 0.76. Glucose 106. She remains on DuoNeb inhalations, Symbicort, Solu-Medrol. Completed cefepime. Heparin for DVT prophylaxis. Remains on oral diuretics. The patient is seen today January 16, 2025 in follow-up on the selective care unit. She has awake and alert in no acute distress. Sitting up in bed. Denies any worsening shortness of breath, cough or congestion. She has been up been very slow to progress. She is requiring Airvo high flow oxygen now at 40 L and 45% FiO2. She has been afebrile. Hemodynamically stable. Less subcutaneous emphysema noted. Below holes remain in place. Chest x-ray reveals similar small right pneumothorax. Unchanged pneumomediastinum. Diffuse subcutaneous emphysema. Unchanged patchy scattered airspace disease. Follow-up blood cultures revealed no growth. White count 6.3. Hemoglobin 9.9. Platelets 87,000. Sodium 134. Potassium 4.6. Bicarb 31. BUN 33. Creatinine 0.75. Glucose 133. She remains on DuoNeb inhalations, Symbicort IV Solu-Medrol. Heparin for DVT prophylaxis. Remains on oral diuretics. The patient is seen today January 17, 2025 in follow-up on the selective care unit. She is sitting up in bed. Awake and alert in no acute distress. Looking better as far as the subcutaneous emphysema is concerned. Blow holes/angiocaths were removed. She remains on Airvo high flow oxygen at 35 L and 45% FiO2. She has been afebrile. Hemodynamically stable. Chest x-ray remains unchanged with a small right pneumothorax, pneumomediastinum and diffuse subcutaneous emphysema. Patchy scattered airspace opacities remain. Blood culture reveals no growth. Glucose 258. She remains on DuoNeb and elations, Symbicort, Solu-Medrol. Remains on oral diuretics. Heparin for DVT prophylaxis. Robitussin for her cough. Objective - Vital Signs Vital signs: Vital Signs Temp 97.5 F L 01/17/25 11:57 Pulse 85 01/17/25 11:58 Resp 16 01/17/25 11:57 BP 93/53 01/17/25 11:57 Pulse Ox 100 01/17/25 11:57 FiO2 45 01/17/25 11:57 Intake & Output 01/16/25 01/17/25 01/17/25 18:59 06:59 18:59 Intake Total 360 118 Output Total 1200 Balance -840 118 Weight 63.5 kg Intake: Oral 360 118 Output: Urine 1200 Other: Voiding Method External Catheter Bedpan Diaper Diaper Incontinent Incontinent External Catheter External Catheter # Voids 1 # Bowel Movements 1 - Exam GENERAL EXAM: Alert, 74-year-old female, sitting up in bed, on Airvo high flow oxygen at 35 L and 45% FiO2, in no acute distress. HEAD: Evidence of subcutaneous emphysema over face, improving EYES: Improved subcutaneous emphysema NOSE: Clear with pink turbinates. THROAT: No erythema or exudates. NECK: No masses, no JVD. CHEST: Improved subcutaneous emphysema. Left chest implanted device. LUNGS: Equal air entry with crackles in the posterior bases, few scattered rhonchi t. CVS: S1 and S2 normal with no audible murmur, regular rhythm. No extra heart sounds ABDOMEN: No hepatosplenomegaly, active bowel sounds, no guarding or rigidity. SPINE: No scoliosis or deformity SKIN: No rashes CENTRAL NERVOUS SYSTEM: No focal deficits, tone is normal in all 4 extremities. EXTREMITIES: Right anterior hip incision is approximated. Full range of motion. Right lower extremity pitting edema. Peripheral pulses are intact. - Labs CBC & Chem 7: 01/16/25 07:21 01/16/25 07:21 Labs: Abnormal Lab Results - Last 24 Hours (Table) 01/16/25 01/17/25 01/17/25 Range/Units 16:18 01:47 06:16 POC Glucose (mg/dL) 200 H 155 H 241 H (70-110) mg/dL 01/17/25 Range/Units 11:27 POC Glucose (mg/dL) 258 H (70-110) mg/dL Assessment and Plan Assessment: Acute hypoxemic respiratory failure with CT scan of the chest reveals marked diffuse scattered groundglass opacities consistent with pulmonary edema, ARDS or pneumonia. Moderate cardiomegaly. Procalcitonin negative x 2.The CAT scan of the chest was also consistent with ARDS with secondary complications of bilateral minimal pneumothoraces, pneumomediastinum and subcutaneous emphysema. The patient is currently on IV Solu-Medrol. CHF seems to be quite well optimized and the patient's most recent echocardiogram showed an ejection fraction of 40 to 45%. Completed cefepime. Chest x-ray findings showing worsening of subcutaneous emphysema. Nevertheless, there is no worsening in the pneumothorax or oxygenation. Remains on Airvo high flow oxygen at 40 L and 45% FiO2 Tiny bilateral pneumothoraces Pneumomediastinum Extensive subcutaneous emphysema secondary to above Acute febrile illness, recovered Acute leukocytosis, improving History of right direct anterior total hip arthroplasty on Nov 24 2024 Acute blood loss anemia, expected outcome of surgery Hypertension History of hyperlipidemia Insulin-dependent diabetes mellitus Obesity with a BMI of 35.4 kg/m Coronary artery disease, with history of CABG and cardiac stents History of ischemic cardiomyopathy with an ejection fraction improved to 40 to 45% Implanted AICD/pacemaker Hypothyroidism Anxiety/depression Poor overall functional performance based on the above-mentioned multiple comorbidities Plan: The patient was seen and evaluated Chest x-ray, labs and medications reviewed Improvement in the subcutaneous emphysema Improvement in the left-sided pneumothorax Currently on Airvo high flow oxygen Continue Lasix Continue DuoNeb inhalations Continue Symbicort Heparin for DVT prophylaxis Discontinue Solu-Medrol Initiated on prednisone taper Titrate down the FiO2 as tolerated Increase her activity as tolerated Cleared for discharge to select specialty today I have personally seen and examined the patient, performed the documentation and the assessment and plan as written. Number of minutes spent on the visit: 10 Dictation was produced using [employer] dictation software. Please excuse any grammatical, word or spelling errors.
--- NOTE | 2025-01-17 16:04 | P.PN ---
Subjective Progress Note Date: 01/17/25 Patient is a 74-year-old female with hypertension, hyperlipidemia, DM (insulin- dependent), obesity, CAD status post CABG, ischemic cardiomyopathy (EF 25 to 30% with AICD), asthma, and osteoarthritis here for evaluation of a fall with generalized weakness. Patient reported that she developed shortness of breath, dry cough, chills, bilateral extremity swelling and generalized weakness when she was discharged from rehab on 12/09 from [facility]. She recently had a right direct anterior total hip arthroplasty on 11/24/2024. Since then she has fallen twice at home due to missed steps. She reported that her swelling has improved gradually over the past 2 weeks. On arrival to the ED, she also reported to have altered mental status. She denied chest pain, palpitations, nausea, vomiting, abdominal pain, extremity swelling, focal weakness, recent prolonged travel. On admission: Vitals: Temp 99 Fahrenheit, MA 99, RR 16, BP 114/60, O2 saturation 89% on room air Labs: WBC 17.4, hemoglobin 9.5, sodium 132, potassium 4.4, bicarb 23, BUN 16, creatinine 0.9, glucose 124, lactic acid 1.8, calcium 8.8, phosphorus 2.4, magnesium 1.7, TSH 6.7. Liver enzymes within normal ranges. Troponin negative. proBNP 3700. Urinalysis unremarkable. Cepheid 4 Plex negative. Urine Legionella antigen negative. Imaging: Chest x-ray showed cardiomegaly with prominent pulmonary vasculature and patchy bilateral lung infiltrates. Hip pelvis x-ray showed no acute osseous abnormalities. EKG showed V paced at a rate of 87, no ST-T changes, QTc 446 MS. 12/20/2024 patient seen and examined at bedside. No acute events overnight. Still requiring oxygen support with 2 to 3 L of nasal cannula. Patient has no symptoms or complaints. Labs: WBC 15.9, hemoglobin 9.3, MCV 93.6, platelet count 371,000, sodium 139, potassium 4.2, bicarb 27, BUN 16, creatinine 1.01, glucose 133, calcium 9.1, Pro-Fortino 0.22. Blood cultures positive for staph mecA/C positive. Imaging; chest x-ray independently interpreted showing improving pulmonary infiltrates 12/21/2024 patient seen and examined at bedside. No acute events overnight. Patient still requiring 2-3L oxygen. Labs: WBC 21.16, hemoglobin 9, MCV 92.9, platelet count 408,000, sodium 137, potassium 4.5, bicarb 30, BUN 29, creatinine 1.28, glucose 172, calcium 9.3, BNP 2180. Blood cultures positive for Staphylococcus epidermidis MEC A positive. Repeat CXR shows minimal improvement 12/22/2024 patient seen and examined at bedside. No acute events overnight. Patient still requiring 3 to 4 L oxygen via nasal cannula Labs: WBC 7.29, hemoglobin 9.4, platelet count 386,000, sodium 136, potassium 4.7, bicarb 28, BUN 37, creatinine 1.06, glucose 176, calcium 8.8 Imaging; echocardiogram showed LVEF 40 to 45% with moderate global hypokinesis, mild mitral and tricuspid regurgitation 12/23/2024 patient seen and examined at bedside. No acute events overnight. Patient oxygen requirements are increasing from 5 to 6 L high flow nasal cannula. Still having dry cough. Labs: WBC 7 point 0.6, hemoglobin 9.2, MCV 93, platelet count 381,000, sodium 130, potassium 4.4, chloride 102, bicarb 28, BUN 45, creatinine 1.11, glucose 96, calcium 9.1. ABG showed PO2 50 pH 7.42 and pCO2 45 Imaging; chest CT shows marked diffuse scattered groundglass opacities consisten t with pulmonary edema, ARDS or pneumonia, moderate cardiomegaly, 3.4 cm dilation of the main pulmonary artery 12/24/2024 Patient evaluated in follow-up on the medical floor. Patient remains on oxygen support increased up to 10 L high flow cannula with saturations of 90%. patient is currently on a course of IV Solu-Medrol as well as IV Lasix twice daily. She has completed a course of antibiotics. She is also maintained on a fluid restriction. ID and pulmonology are following this patient closely. Blood culture finalized revealing Staphylococcus epidermidis which is felt to be contaminant species 12/25/2024 patient seen and examined at bedside. Patient in the ICU. Requiring high flow nasal cannula rate of 50 FiO2 55% Labs: WBC 17.9, hemoglobin 9.7, MCV 90.8, platelet count 250,000 sodium 137, potassium 4.8, bicarb 31, creatinine, BUN 49, creatinine 1.16, glucose 224, mag 2.2, calcium 9.1. ABG pH 7.46, pCO2 43, bicarb 66 Imaging; chest x-ray showed so far persistent diffuse increased lung markings present 12/26/2024 patient seen and examined at bedside. Still requiring high flow nasal cannula rate of 50 FiO2 60% Labs: WBC 19.5, hemoglobin 10, chloride 97, bicarb 33, potassium 4.2, sodium 137, creatinine 1.07, BUN 54, glucose 280, calcium 9.3, proBNP 1950, Pro-Fortino less than 0.2 Imaging: Chest x-ray showed stable diffuse interstitial infiltrates 12/27/2024 patient seen and examined at bedside. No acute events overnight. Still in the ICU. Still having dry cough. High flow nasal cannula for O2 support flow rate 50 FiO2 60% Labs: WBC 20.3, hemoglobin 10.6, platelet count 370,000, sodium 139, potassium 4.6, bicarb 33, BUN 59, creatinine 0.99, glucose 175, calcium 9.8 Imaging: Chest x-ray today showed stable pulmonary infiltrates 12/28/2024 patient seen and examined at bedside. No acute events overnight. Still in the ICU. Still requiring high flow nasal cannula rate 50 at 50% FiO2 Labs: WBC 19.6, hemoglobin 10.4, sodium 134, potassium 4, bicarb 33, BUN 66, c reatinine 1.12, glucose 205, magnesium 2.3 Imaging: Chest x-ray shows stable diffuse interstitial infiltrates 12/29/2024 patient seen and examined at bedside. No acute events overnight. Still in the ICU. No fevers or chills. O2 requirements decreasing. Labs: WBC 26.03, hemoglobin 10.7, sodium 136, bicarb 34, BUN 63, creatinine 1.11, glucose 185, magnesium 2.4 Imaging: Chest x-ray shows improving diffuse pulmonary infiltrates 12/30/2024 patient seen and examined at bedside. No acute events overnight. Downgraded to stepdown unit Currently on high flow nasal cannula 9 L which has improved. Labs: Sodium 136, potassium 4.7, bicarb 23, BUN 65, creatinine 1.2, glucose 186, calcium 9.4 12/31/2024 Patient is resting in the bed. Awake alert and oriented. Breathing status is better. Currently on 9 L oxygen via nasal cannula. No complaints of chest pain or worsening shortness of breath. Laboratory data showed WBC 27.0 hemoglobin 10.5 and platelets 275. Sodium 135 potassium 5.0 chloride 97 bicarb is 32 BUN 66 and creatinine 1.27 and blood sugar 222. 01/01/2025 patient seen and examined at bedside. No new complaints. Still currently on high flow nasal cannula 8 L for O2 support Labs: WBC 24.7, hemoglobin 10.3, sodium 136, potassium 5.1, bicarb 23, BUN 60, creatinine 1.01, glucose 172 Imaging: Chest x-ray today showed persistent pulmonary diffuse interstitial infiltrates 01/02/2025 patient seen and examined at bedside. Patient increased O2 requirements and is currently on Airvo flow 50 FiO2 60% Labs: sodium 136, potassium 5.1 bicarb 33, BUN 60, creatinine 1.01, glucose 172, calcium 9.5 Imaging: Chest x-ray this morning shows ongoing extensive patchy airspace opacities, new subcutaneous emphysema at the right base of the neck 01/03/2025 patient seen and examined at bedside. Patient still on Airvo low flow 50 FiO2 60% Labs: WBC 21.6, hemoglobin 10.3, platelet count 236,000, sodium 135, potassium 5.4, BUN 44, creatinine 0.96, glucose 181, calcium 9.3 Imaging: Chest x-ray today showed increasing subcutaneous emphysema at the left base of the neck with small pneumothorax on the right chest, stable bilateral airspace opacities 01/04/2025 Patient was on high flow oxygen patient is presently on 15 L 50% FiO2. Patient presently has 15% pneumothorax patient had a CT of the chest. Patient has significant subcutaneous emphysema. 01/05/2025 patient seen and examined at bedside. No acute events overnight. Patient currently on high flow nasal cannula flow 50, FiO2 45%. Complaining of chest pressure when coughing. Imaging: Chest x-ray today shows stable right-sided pneumothorax and bilateral subcutaneous neck emphysema with stable bilateral diffuse opacities 01/13. Dr. CHRISTIANSON took over care. Patient is currently lethargic, currently on heated high flow. Family at the bedside. 01/14/2025 Assumed care of this patient today she remains in the cardiac unit. Her chest x-ray today reveals a similar small bilateral pneumothoraces right greater than left, similar mid pneumomediastinum similar diffuse subcutaneous emphysema. Patchy scattered airspace opacities within the lungs suggesting pulmonary edema and/or ARDS. CT surgery following postoperative day #5 placement of blowhole to try and relieve the subcutaneous emphysema with a 14-gauge Accu cath. Patient remains on Airvo with 50% FiO2 and a 50 L high flow rate. Patient did have positive blood culture for Staphylococcus epidermidis with repeat being final and negative. She had a repeat blood culture done on January 09 which is currently pending and negative so far. Most recent blood work reveals a white blood cell count 10.94, hemoglobin 9.8, sodium level of 132, BUN of 43 creatinine 0.80. Patient is currently afebrile. 01/15/2025 Patient is seen in follow-up today and continues on Airvo 50/55% and becomes extremely exerted with minimal exertion. Patient also reporting to having some feelings of constipation although feels it may be a hemorrhoid that continues to be bothersome, will add Anusol and continue on stool softeners. Patient is extremely weak and have recommended/OT therapy. Patient is not quite stable at this time and desats quickly. Patient is afebrile with no reports of chest pain or palpitations. Patient remains dyspneic during conversation as well. 01/16/2025 Patient is seen in follow-up today with multiple consultations following including pulmonary and cardiothoracic surgery. Patient did have 2 blow holes placed bilaterally although the right one appears to have fallen out and will remain out and continue with the left side. Chest x-ray today shows similar right small pneumothorax, unchanged pneumomediastinum, unchanged diffuse subcu emphysema and unchanged patchy scattered airspace opacities in the lungs. Patient is continued with incentive spirometer and has been encouraged to continue using at least 10 times every hour while awake. FiO2 is being adjusted and weaned to 45% and patient is maintained on breathing treatments along with steroids. Pulmonary following closely along with CT surgery. Patient also being followed by infectious disease and has completed antibiotic course and being closely monitored off antibiotic therapy. Patient continues with significant emphysema noted and will continue supportive care. Will follow-up with case management/social work as there was discussion of possible transfer to select facilities for continued ongoing care. 01/17/2025 Patient is evaluated in follow-up in the medical floor. Pulmonary and cardiothoracic surgery have cleared the patient. The blow holes have been di scontinued. Patient's chest x-ray today revealed unchanged small right pneumothorax with pneumomediastinum and diffuse subcutaneous emphysema. Unchanged patchy scattered airspace opacities within the lungs. Patient continues on high flow nasal cannula 35/45. [facility] Review of systems: Constitutional: reports of fatigue, no fever, or chills Cardiovascular: No reports of chest pain or palpitations Respiratory: reports of continued shortness of breath and dry cough with no phlegm production, weak cough GI: No reports of nausea, vomiting, or diarrhea, reporting feelings of constipation although did have a bowel movement yesterday : No reports of dysuria or retention Neurovascular: reports of extreme weakness All medications have been reviewed PHYSICAL EXAMINATION: GENERAL: The patient is lethargic although arousable, alert and oriented x3 ill- looking, elderly appearing, obese HEENT: Pupils are round and equally reacting to light. EOMI. No scleral icterus. No conjunctival pallor. Normocephalic, atraumatic. No pharyngeal erythema. No thyromegaly. Significant facial swelling especially on the left side with sign ificant left upper eyelid swelling CARDIOVASCULAR: S1 and S2 muffled PULMONARY: Diminished breath sounds at bases, subcutaneous emphysema ABDOMEN: Soft, nontender, nondistended, normoactive bowel sounds. No palpable organomegaly. MUSCULOSKELETAL: No joint swelling or deformity. EXTREMITIES: No cyanosis, clubbing, or pedal edema. NEUROLOGICAL: Gross neurological examination did not reveal any focal deficits. Diffusely weak SKIN: No rashes. Significant emphysema noted of the neck and clavicle area and continued swelling of the face Assessment: Acute hypoxemic respiratory failure secondary to ARDS Tiny bilateral pneumothoraces status post bilateral blowholes placed right sided blowhole has fallen out 01/16/2025 Pneumomediastinum Extensive subcutaneous emphysema secondary to above Acute febrile illness, recovered Stage II pressure injury on bilateral medial thighs, secondary to prolonged hospitalization and being bedbound Stage II pressure injury on the left buttock, secondary to prolonged hospitalization and being bedbound Acute leukocytosis, improving History of right direct anterior total hip arthroplasty on Nov 24 2024 Acute blood loss anemia, expected outcome of surgery Hypertension History of hyperlipidemia Insulin-dependent diabetes mellitus Obesity with a BMI of 35.4 kg/m Coronary artery disease, with history of CABG and cardiac stents History of ischemic cardiomyopathy with an ejection fraction improved to 40 to 45% Implanted AICD/pacemaker Hemorrhoid, acute, likely secondary to constipation Hypothyroidism Anxiety/depression GI prophylaxis protonix DVT prophylaxis heparin Full Code Plan: Multiple consultations following including pulmonary and patient is maintained on high flow Airvo and being titrated down, currently 35/45% FiO2 and continues to report extreme dyspnea with minimal exertion. Patient is dyspneic during conversation and winded. Patient is lethargic and has been encouraged to increase activity as tolerated. Patient will need extensive PT/OT therapy once respiratory status is improved Patient to continue bowel regimen and supportive care with frequent offloading and Optifoam to the buttock area as well as bilateral medial thighs Blow holes have been discontinued Continue supportive care Continue to encourage incentive spirometer use at least 10 times every hour while awake follow-up on repeat labs. Replace electrolytes per protocol plan for discharge tomorrow morning at [address] [facility] [address] surgery and pulmonology have cleared. The impression and plan of care has been dictated by Karen Baldwin, Nurse Practitioner as directed. Dr. Bekah MD I have performed a history and physical examination and medical decision making of this patient, discussed the same with the dictator, and agree with the dictators assessment and plan as written, documented as a scribe. Based on total visit time, I have performed more than 50% of this visit. Objective - Vital Signs Vital signs: Vital Signs Temp 97.5 F L 01/17/25 11:57 Pulse 70 01/17/25 15:41 Resp 16 01/17/25 11:57 BP 93/53 01/17/25 11:57 Pulse Ox 100 01/17/25 11:57 FiO2 45 01/17/25 15:41 Intake & Output 01/16/25 01/17/25 01/17/25 18:59 06:59 18:59 Intake Total 360 118 Output Total 1200 Balance -840 118 Weight 63.5 kg Intake: Oral 360 118 Output: Urine 1200 Other: Voiding Method External Catheter Bedpan Diaper Diaper Incontinent Incontinent External Catheter External Catheter # Voids 1 # Bowel Movements 1 - Labs CBC & Chem 7: 01/16/25 07:21 01/16/25 07:21 Labs: Abnormal Lab Results - Last 24 Hours (Table) 01/16/25 01/17/25 01/17/25 Range/Units 16:18 01:47 06:16 POC Glucose (mg/dL) 200 H 155 H 241 H (70-110) mg/dL 01/17/25 Range/Units 11:27 POC Glucose (mg/dL) 258 H (70-110) mg/dL Assessment and Plan Time with Patient: Less than 30
[2025-01-17 16:36] LABS: Glucose,Whole Blood 103 mg/dL (70-110)
[2025-01-17 20:05] LABS: Glucose,Whole Blood 129 mg/dL (70-110)
[2025-01-18 02:38] LABS: Glucose,Whole Blood 162 mg/dL (70-110)
[2025-01-18 05:42] LABS: Glucose,Whole Blood 86 mg/dL (70-110)
[2025-01-18 06:09] LABS: Basophils # (A) 0.02 10*3/uL (0.00-0.10); Basophils % (A) 0.3 %; Eosinophils # (A) 0.43 10*3/uL (0.04-0.35); Eosinophils % (A) 5.9 %; HCT 32.7 % (37.2-46.3); HGB 10.8 g/dL (12.0-15.0); Lymphocytes # (A) 0.87 10*3/uL (0.90-5.00); Lymphocytes % (A) 12.0 %; MCH 30.3 pg (27.0-32.0); MCHC 33.0 g/dL (32.0-37.0); MCV 91.9 fL (80.0-97.0); Monocytes # (A) 0.21 10*3/uL (0.20-1.00); Monocytes % (A) 2.9 %; Neutrophils # (A) 5.63 10*3/uL (1.80-7.70); Neutrophils % (A) 77.9 %; Platelet Count 107 10*3/uL (140-440); RBC 3.56 10*6/uL (4.10-5.20); RDW 16.9 % (11.5-14.5); WBC 7.23 10*3/uL (4.50-10.00)
[2025-01-18 06:36] LABS: African American GFR (CKD) >90 (>60 ml/min/1.73 sqM); Anion Gap 6 mmol/L; Blood Urea Nitrogen 32 mg/dL (7-17); Calcium 9.7 mg/dL (8.4-10.2); Carbon Dioxide 25 mmol/L (22-30); Chloride 100 mmol/L (98-107); Glucose 85 mg/dL (74-99); Magnesium 2.0 mg/dL (1.6-2.3); Non-African American GFR(CKD) 87 (>60 ml/min/1.73 sqM); Potassium 4.5 mmol/L (3.5-5.1); Sodium 131 mmol/L (137-145)
--- NOTE | 2025-01-18 07:19 | XR ---
EXAMINATION TYPE: XR chest 1V portable DATE OF EXAM: 01/18/2025 6:41 AM COMPARISON: Multiple radiographs, with the most recent on 01/17/2025 TECHNIQUE: XR chest 1V portable Portable AP radiograph of the chest. CLINICAL INDICATION:Female, 74 years old with history of Subcutaneous emphysema; FINDINGS: Lungs/Pleura: Similar small right pneumothorax. No discrete left pneumothorax identified. Scattered a irspace opacities throughout the lungs are similar. No sizable pleural effusion. Pulmonary vascularity: Unremarkable. Heart/mediastinum: Cardiomediastinal silhouette is enlarged. Pneumomediastinum is unchanged. Three l ead cardiac conduction device overlying the left hemithorax with lead tips projecting over the right ventricle, right atrium and coronary sinus. Musculoskeletal: No acute osseous pathology. Midline sternotomy wires are noted. Other findings: No significant change in diffuse subcutaneous emphysema scattered throughout the visu alized thorax and visualized neck. IMPRESSION: 1. Unchanged small right pneumothorax, pneumomediastinum and diffuse subcutaneous emphysema. 2. Unchanged patchy scattered airspace opacities within the lungs. [facility], , 01/18/2025 7:17 AM
--- NOTE | 2025-01-18 07:45 | P.PN ---
Subjective Progress Note Date: 01/17/25 Principal diagnosis: Reason for follow-up is a positive blood culture/leukocytosis/thrush Patient is a 74-year-old female with a past medical history significant for Asthma, Blood Disorder, Coronary Artery Disease (CAD), Chest Pain / Angina, Heart Failure, Diabetes Mellitus, Eye Disorder, GERD/Reflux, Hyperlipidemia, Hypertension, Myocardial Infarction ([place]), Musculoskeletal Disorder, Osteoarthritis (OA), Renal Disease, Skin Disorder, Supraventricular Tachycardia (SVT), Thyroid Disorder who recently did have a right hip replacement, patient presented the hospital with increasing shortness of breath and cough did have a positive blood culture prompting this consultation. On today's evaluation that is 01/17/2025,the patient denies any fever or any chills, patient is breathing slightly comfortably remains to be on 45% high flow nasal cannula oxygen denies any chest pain or worsening cough no abdominal pain no diarrhea. Patient white count normal as of yesterday no CBC was done today cultures has been negative Objective - Vital Signs Vital signs: Vital Signs Temp 97.5 F L 01/17/25 11:57 Pulse 85 01/17/25 11:58 Resp 16 01/17/25 11:57 BP 93/53 01/17/25 11:57 Pulse Ox 100 01/17/25 11:57 FiO2 45 01/17/25 11:57 Intake & Output 01/16/25 01/17/25 01/17/25 18:59 06:59 18:59 Intake Total 360 118 Output Total 1200 Balance -840 118 Weight 63.5 kg Intake: Oral 360 118 Output: Urine 1200 Other: Voiding Method External Catheter Bedpan Diaper Diaper Incontinent Incontinent External Catheter External Catheter # Voids 1 # Bowel Movements 1 - Exam GENERAL DESCRIPTION: An elderly female up in the bed in no distress RESPIRATORY SYSTEM: Unlabored breathing , decreased breath sounds at bases HEART: S1 S2 regular rate and rhythm , ABDOMEN: Soft , no tenderness EXTREMITIES: No edema feet - Labs CBC & Chem 7: 01/18/25 05:10 01/18/25 05:10 Labs: Abnormal Lab Results - Last 24 Hours (Table) 01/16/25 01/17/25 01/17/25 Range/Units 16:18 01:47 06:16 POC Glucose (mg/dL) 200 H 155 H 241 H (70-110) mg/dL 01/17/25 Range/Units 11:27 POC Glucose (mg/dL) 258 H (70-110) mg/dL Assessment and Plan (1) Positive blood culture Current Visit: Yes Status: Acute Code(s): R78.81 - BACTEREMIA SNOMED Code(s): 597100592 (2) Leukocytosis Current Visit: Yes Status: Acute Code(s): D72.829 - ELEVATED WHITE BLOOD CELL COUNT, UNSPECIFIED SNOMED Code(s): 639761397 (3) Oropharyngeal candidiasis Current Visit: Yes Status: Acute Code(s): B37.0 - CANDIDAL STOMATITIS SNOMED Code(s): 49916132 Plan: 1patient with a positive blood culture with staph epi which is more likely skin contamination this patient who recently did have a right hip replacement however the right hip surgical site incision is currently healed with no cellulitis and the patient denies having any pain to the right hip area, no need for vancomycin however blood culture has been repeated which has been negative 2the patient with significant subcutaneous emphysema patient is status post placement of below holes to try to relieve the subcutaneous emphysema with a 14- gauge Angiocath by CT surgery and patient did have improvement to the subcutaneous emphysema especially following the head and neck area, CT surgery is following the patient closely 3-patient is afebrile white count has normalized patient has completed course of Diflucan as well as cefepime. To continue nystatin swish and swallow we will monitor the patient closely off antibiotic at this point Dictation was produced using [employer] dictation software. please excuse any grammatical, word or spelling errors. Time with Patient: Less than 30
[2025-01-18 09:25] LABS: Glucose,Whole Blood 178 mg/dL (70-110)
[2025-01-18] MEDS: predniSONE 20 MG TAB PO SCH (09:31)
--- NOTE | 2025-01-18 10:21 | P.DS ---
Providers Date of admission: 12/18/24 19:43 Attending physician: Sofy Ramires Consults: 12/18/24 19:41 Consult Physician Routine Consulting Provider: Rosario Louis Consult Reason/Comments: pna,hypoxia Do you want consulting provider notified?: Yes 12/19/24 14:39 Consult Physician Routine Consulting Provider: Kirit Murray Consult Reason/Comments: CHF Do you want consulting provider notified?: Yes 12/21/24 12:12 Consult Physician Routine Consulting Provider: Shyla Liu Consult Reason/Comments: Fever, positive blood cultures Do you want consulting provider notified?: Yes 01/08/25 16:31 Consult Physician Routine Consulting Provider: Lenin Hurd Consult Reason/Comments: Extensive sub Q emphysema Do you want consulting provider notified?: Yes Primary care physician: Renata Burgess Hospital Course: Final Diagnosis Acute hypoxemic respiratory failure secondary to ARDS Tiny bilateral pneumothoraces status post bilateral blowholes placed right sided blowhole has fallen out 01/16/2025 Pneumomediastinum Extensive subcutaneous emphysema secondary to above Acute febrile illness, recovered Stage II pressure injury on bilateral medial thighs, secondary to prolonged hospitalization and being bedbound Stage II pressure injury on the left buttock, secondary to prolonged hospitalization and being bedbound Acute leukocytosis, improving History of right direct anterior total hip arthroplasty on Nov 24 2024 Acute blood loss anemia, expected outcome of surgery Hypertension History of hyperlipidemia Insulin-dependent diabetes mellitus Obesity with a BMI of 35.4 kg/m Coronary artery disease, with history of CABG and cardiac stents History of ischemic cardiomyopathy with an ejection fraction improved to 40 to 45% Implanted AICD/pacemaker Hemorrhoid, acute, likely secondary to constipation Hypothyroidism Anxiety/depression Discharge Disposition Patient stable for discharge to [facility]. Patient awake alert oriented. Continues with evidence of subcu empyhsema mostly on the left arm and into the left periorbital space. She remains on high flow oxygen via nasal cannula. Patient to continue on oral prednisone taper. Has completed course of antibiotic. Recommend close follow up with pulmonology and ID on discharge. Follow up labs 2 to 3 days. Continue bowel regimen. Hospital Course Patient is a 74-year-old female with hypertension, hyperlipidemia, DM (insulin-d ependent), obesity, CAD status post CABG, ischemic cardiomyopathy (EF 25 to 30% with AICD), asthma, and osteoarthritis here for evaluation of a fall with generalized weakness. Patient reported that she developed shortness of breath, dry cough, chills, bilateral extremity swelling and generalized weakness when she was discharged from rehab on 12/09 from [facility]. She recently had a right direct anterior total hip arthroplasty on 11/24/2024. Since then she has fallen twice at home due to missed steps. She reported that her swelling has improved gradually over the past 2 weeks. On arrival to the ED, she also reported to have altered mental status. She denied chest pain, palpitations, nausea, vomiting, abdominal pain, extremity swelling, focal weakness, recent prolonged travel. Chest x-ray showed cardiomegaly with prominent pulmonary vasculature and patchy bilateral lung infiltrates. Hip pelvis x-ray showed no acute osseous abnormalities. EKG showed V paced at a rate of 87, no ST-T changes, QTc 446 MS. WBC 17.4, hemoglobin 9.5, sodium 132, potassium 4.4, bicarb 23, BUN 16, creatinine 0.9, glucose 124, lactic acid 1.8, calcium 8.8, phosphorus 2.4, magnesium 1.7, TSH 6.7. Liver enzymes within normal ranges. Troponin negative. proBNP 3700. Urinalysis unremarkable. Cepheid 4 Plex negative. Urine Legionella antigen negative. Patient was admitted to the hospital with pneumonia and consults were placed to ID, pulmonology and cardiology. Patient ended up on high flow cannula with airvo and transferred to the ICU. Chest CT which was completed back on December 22 demonstrated marked diffuse scattered groundglass opacities consistent with pulmonary edema versus ARDS/pneumonia. Chest CT repeated on January 03, 2025 demonstrated bilateral pneumothoraces, pneumomediastinum, continued diffuse lung markings compatible with ARDS. Her subcutaneous emphysema has progressively gotten worse, consultation was placed to cardiothoracic surgery for treatment recommendations. On 01/09/2025 patient had bilateral blow holes placed. She clinically improved shows unchanged small right pneumothorax pneumomediastinum and diffuse subcutaneous emphysema. Unchanged patchy scattered airspace opacities within the lungs. Pulmonology and infectious disease have cleared the patient. She is currently resting in bed comfortably and remains on high flow oxygen via nasal cannula 35/45. Oxygen saturations are 97%. White blood cell count of 7.23, hemoglobin 10.8 sodium of 131 BUN of 32 creatinine 0.69, 2.0. Please see medication reconciliation for a list of current medications. Thank you for allowing us to participate in the care of this patient. The impression and plan of care has been dictated by Karen Baldwin, Nurse Practitioner as directed. Dr. Bekah MD I have performed a history and physical examination and medical decision making of this patient, discussed the same with the dictator, and agree with the dictators assessment and plan as written, documented as a scribe. Based on total visit time, I have performed more than 50% of this visit. Patient Condition at Discharge: Fair Plan - Discharge Summary Discharge Rx Participant: Yes New Discharge Prescriptions: New Lactulose [Cephulac] 30 gm PO BID ml Insulin Glargine (Lantus) [Lantus Vial] 40 unit SQ BID@0700,2100 each Acetaminophen Tab [Tylenol] 650 mg PO Q6HR PRN tab PRN Reason: Fever And/ Or Pain Hydrocortisone Suppository [Anusol-Hc] 25 mg RECTAL DAILY suppositor Ipratropium-Albuterol Nebulize [Duoneb 0.5 mg-3 mg/3 ml Soln] 3 ml INHALATION RT-QID each Ipratropium-Albuterol Nebulize [Duoneb 0.5 mg-3 mg/3 ml Soln] 3 ml INHALATION RT-Q4H PRN each PRN Reason: Shortness Of Breath Or Wheezing Heparin Sodium,Porcine (1 ml) [Heparin Sodium] 5,000 unit SQ Q12HR each INSULIN LISPRO (HumaLOG) [HumaLOG] 10 unit SQ AC-TID each predniSONE 0 mg PO DIRECTED 16 Days tab Pantoprazole [Protonix] 40 mg PO AC-BID tab guaiFENesin-DM 100-10MG/5ML [Robitussin DM] 5 ml PO Q6HR PRN ml PRN Reason: Cough Continue Budesonide-Formot 160-4.5 Mcg [Symbicort 160-4.5 Mcg Inhaler] 2 puff INHALATION BID PRN PRN Reason: Shortness Of Breath fluvoxaMINE MALEATE [Luvox] 300 mg PO HS Furosemide [Lasix] 20 mg PO MOWEFR Ezetimibe [Zetia] 10 mg PO HS buPROPion SR [Wellbutrin SR] 175 mg PO BID Sacubitril/Valsartan [Entresto 24 mg-26 mg Tablet] 1 tab PO BID Rosuvastatin Calcium [Crestor] 20 mg PO HS traZODone HCL [Desyrel] 50 mg PO HS Gabapentin [Neurontin] 300 mg PO TID Aspirin [Adult Low Dose Aspirin EC] 81 mg PO BID Clopidogrel [Plavix] 75 mg PO DAILY Propylene Glycol [Systane Complete] 1 drop BOTH EYES BID Ondansetron Odt [Zofran ODT] 4 mg PO TID PRN PRN Reason: Nausea And Vomiting Levothyroxine Sodium [Synthroid] 112 mcg PO DAILY busPIRone HCl [Buspar] 30 mg PO DAILY Dapagliflozin Propanediol [Farxiga] 10 mg PO DAILY Nitroglycerin Sl Tabs [Nitrostat] 0.4 mg SL Q5M PRN PRN Reason: Chest Pain busPIRone HCL 15 mg PO HS Ergocalciferol [Vitamin D2 (1250 Mcg = 70213 Iu)] 1,250 mcg PO PRUITT carvediloL [Coreg] 6.25 mg PO BID Changed HYDROcodone/APAP 5-325MG [[place] 5-325] 1 tab PO Q6HR PRN #12 tab PRN Reason: Pain Scale 6 To 10 Discontinued Albuterol Inhaler [Ventolin Hfa Inhaler] 2 puff INHALATION RT-Q4H PRN PRN Reason: Shortness Of Breath Baclofen [Lioresal] 20 mg PO TID PRN PRN Reason: Pain Insulin Aspart (For Pump) [NovoLOG (For Pump)] 0.01 unit SQ-PUMP CONTINUOUS Acetaminophen Tab [Tylenol] 1,000 mg PO Q6HR PRN tab PRN Reason: Fever and/ or Mild Pain Doxycycline Monohydrate 100 mg PO BID-W/MEALS 14 Days #28 cap Discharge Medication List Budesonide-Formot 160-4.5 Mcg [Symbicort 160-4.5 Mcg Inhaler] 2 puff INHALATION BID PRN 12/27/15 [History] Ezetimibe [Zetia] 10 mg PO HS 12/27/15 [History] Furosemide [Lasix] 20 mg PO MOWEFR 12/27/15 [History] fluvoxaMINE MALEATE [Luvox] 300 mg PO HS 12/27/15 [History] buPROPion SR [Wellbutrin SR] 175 mg PO BID 03/29/17 [History] Sacubitril/Valsartan [Entresto 24 mg-26 mg Tablet] 1 tab PO BID 04/11/18 [History] Rosuvastatin Calcium [Crestor] 20 mg PO HS 06/06/18 [History] Levothyroxine Sodium [Synthroid] 112 mcg PO DAILY 07/16/22 [History] Dapagliflozin Propanediol [Farxiga] 10 mg PO DAILY 10/19/23 [History] Gabapentin [Neurontin] 300 mg PO TID 10/19/23 [History] Nitroglycerin Sl Tabs [Nitrostat] 0.4 mg SL Q5M PRN 10/19/23 [History] busPIRone HCl [Buspar] 30 mg PO DAILY 10/19/23 [History] traZODone HCL [Desyrel] 50 mg PO HS 10/19/23 [History] busPIRone HCL 15 mg PO HS 06/26/24 [History] Aspirin [Adult Low Dose Aspirin EC] 81 mg PO BID 11/17/24 [History] Clopidogrel [Plavix] 75 mg PO DAILY 11/17/24 [History] Propylene Glycol [Systane Complete] 1 drop BOTH EYES BID 11/17/24 [History] Ergocalciferol [Vitamin D2 (1250 Mcg = 48544 Iu)] 1,250 mcg PO PRUITT 12/18/24 [History] Ondansetron Odt [Zofran ODT] 4 mg PO TID PRN 12/18/24 [History] carvediloL [Coreg] 6.25 mg PO BID 12/18/24 [History] Acetaminophen Tab [Tylenol] 650 mg PO Q6HR PRN tab 01/18/25 [Rx] HYDROcodone/APAP 5-325MG [[place] 5-325] 1 tab PO Q6HR PRN #12 tab 01/18/25 [Rx] Heparin Sodium,Porcine (1 ml) [Heparin Sodium] 5,000 unit SQ Q12HR each 01/18/25 [Rx] Hydrocortisone Suppository [Anusol-Hc] 25 mg RECTAL DAILY suppositor 01/18/25 [Rx] INSULIN LISPRO (HumaLOG) [HumaLOG] 10 unit SQ AC-TID each 01/18/25 [Rx] Insulin Glargine (Lantus) [Lantus Vial] 40 unit SQ BID@0700,2100 each 01/18/25 [Rx] Ipratropium-Albuterol Nebulize [Duoneb 0.5 mg-3 mg/3 ml Soln] 3 ml INHALATION RT-Q4H PRN each 01/18/25 [Rx] Ipratropium-Albuterol Nebulize [Duoneb 0.5 mg-3 mg/3 ml Soln] 3 ml INHALATION RT-QID each 01/18/25 [Rx] Lactulose [Cephulac] 30 gm PO BID ml 01/18/25 [Rx] Pantoprazole [Protonix] 40 mg PO AC-BID tab 01/18/25 [Rx] guaiFENesin-DM 100-10MG/5ML [Robitussin DM] 5 ml PO Q6HR PRN ml 01/18/25 [Rx] predniSONE 0 mg PO DIRECTED 16 Days tab 01/18/25 [Rx] Follow up Appointment(s)/Referral(s): Fab Villanueva MD [STAFF PHYSICIAN] - 2 Weeks Renata Burgess MD [Primary Care Provider] - 1-2 days Davonte Mckeon MD [STAFF PHYSICIAN] - 1 Week Shyla Liu MD [STAFF PHYSICIAN] - 1 Week Ambulatory/Diagnostic Orders: Basic Metabolic Panel [LAB.AMB] Time Frame: 3 Days, Location: None Selected Complete Blood Count w/diff [LAB.AMB] Location: None Selected Activity/Diet/Wound Care/Special Instructions: [facility] Discharge Disposition: TRANSFER TO SNF/ECF
--- NOTE | 2025-01-18 11:16 | P.PN ---
Subjective Progress Note Date: 01/18/25 Principal diagnosis: Shortness of breath. Patient is a 75-year-old female with past medical history significant for hypertension, hyperlipidemia, insulin-dependent diabetes mellitus, obesity, coronary artery disease with previous CABG, ischemic cardiomyopathy with an ejection fraction of 25 to 30% with AICD, asthma, and osteoarthritis. Of note, patient recently underwent right direct anterior total hip arthroplasty on 11/24/2024. She was discharged from the hospital to [facility] for rehabilitation. While at the outside facility, developed shortness of breath, coughing, and generalized weakness. States she was released from [facility] to home last Wednesday on November. Since then, she has fallen twice while at home. Brought in by EMS yesterday evening hypoxic and confused. She was placed on supplemental oxygen. Workup in the emergency department including a chest x-ray showing patchy bilateral lung infiltrates concerning for congestive heart failur e or atypical pneumonias. CBC: WBC count 14.7, hemoglobin 9.5 g/dL, platelets 374. BMP: Sodium 132, potassium 4.4, chloride 100, serum bicarb 23, BUN 16, creatinine 0.92, glucose 124. Lactic 1.8. LFTs unremarkable. Troponin less than 0.012. NT proBNP 6.74. Viral 4 Plex negative for influenza A/B, RSV, COVID. Urinalysis unremarkable for UTI. Patient currently being evaluated on the general medical floor. She is alert and oriented x 3. Endorses above mentioned complaints. Does report history of asthma. Has had increased work of breathing over the last couple weeks. Suffering from persistent nonproductive cough over the same timeframe. States her symptoms actually started at [facility]. She has had a poor appetite with occasional nausea and vomiting. She has been able to take some of her home medications. Has had intermittent fevers with a Tmax of 100.8 F. Was started on empiric antibiotics in the ED, in the form azithromycin and Rocephin. Normal saline infusing at 50 mL/h. Denies any chest pain. Does endorse unilateral right lower lower extremity edema. No heart palpitations, syncopal events, hemoptysis. Current vital signs: Temperature 100.8 F, heart rate 95 bpm, blood pressure 124/54 mmHg, nontachypneic, SpO2 recorded at 96% on 3 L/min nasal cannula. The patient is seen today December 20, 2024 and follow-up on the regular medical floor. She is currently sitting up in bed. Awake and alert in no acute distress. Feeling a bit better today compared to yesterday. Maintaining O2 saturations in the 90s on 3 L/min per nasal cannula. Chest x-ray shows continued infiltrate of the right lung with improvement in the left lung. Blood culture is coming back positive. ID pending. White count 15.9. Hemoglobin 9.3. Platelets 371. Sodium 139. Potassium 4.2. Bicarb 27. BUN 16. Creatinine 1.01. Glucose 133. She remains on DuoNeb inhalations, IV Solu- Medrol, IV diuretics. Lovenox for DVT prophylaxis. Antibiotics in the form of ceftriaxone. The patient is seen today December 21, 2024 in follow-up on the regular medical floor. She is currently sitting up in a chair. Awake and alert in no acute distress. Maintaining O2 saturations in the 90s on 3 L/min per nasal cannula. She has been afebrile. Hemodynamically stable. Blood cultures showing staph epidermidis, most likely contaminant. White count 21.1. Hemoglobin 9.0. Platelets 409. Sodium 137. Potassium 4.5. Bicarb 30. BUN 29. Creatinine 1.28. Glucose 172. proBNP 2180. She remains on DuoNeb inhalations, Solu- Medrol. Antibiotics in the form of ceftriaxone. Lovenox for DVT prophylaxis. Remains on IV diuretics. No accurate intake and output recorded. Chest x-ray showing similar findings with basilar infiltrates right greater than left. The patient is seen today December 22, 2024 in follow-up on the regular medical floor. She is sitting up at the bedside. Awake and alert in no acute distress. She has been slow to progress. She is still dyspneic with minimal exertion. Dyspneic with conversation. She is maintaining O2 saturations in the 90s on 7 L high flow nasal cannula. Echocardiogram reveals impaired left ventricular systolic function with an ejection fraction [address] scan of the chest revealed marked diffuse scattered groundglass opacities consistent with pulmonary edema, ARDS or pneumonia. AICD in place. Blood culture positive for Staphylococcus epidermidis. White count 17.9. Hemoglobin 9.4. Platelets 386. Sodium 136. Potassium 4.7. Bicarb 28. BUN 37. Creatinine 1.06. Glucose 176. She remains on DuoNeb inhalations, Solu-Medrol. Remains on oral diuretics. Antibiotics in the form of ceftriaxone. Heparin for DVT prophylaxis. The patient is seen today December 23, 2024 in follow-up on the regular medical floor. She is currently resting in bed. Awake and alert in no acute distress. Feeling a bit better today compared to yesterday. She is maintaining O2 saturations in the 90s on 6 L high flow nasal cannula. She remains afebrile. Hemodynamically stable. Initial blood cultures showing staph epidermidis. Foll ow-up blood culture reveals no growth. White count 17.6. Hemoglobin 9.2. Platelets 381. Sodium 138. Potassium 4.4. Bicarb 28. BUN 45. Creatinine 1.11. Glucose 115. Arterial blood gases on 44% FiO2 revealed a PO2 of 50, [id number] and a pH of 7.42. She remains on DuoNeb inhalations, Solu-Medrol and Robitussin as needed. Heparin for DVT prophylaxis. She remains on Lasix 40 mg every 12 hours. No accurate intake and output recorded. The patient is seen today December 24, 2024 in follow-up on the regular medical floor. She is awake and alert in no acute distress. Resting in bed. No worsen ing shortness of breath, cough or congestion. She is still requiring 10 L high flow nasal cannula to maintain O2 saturations in the 90s. Lung sounds improved. Blood cultures were positive for Staphylococcus epidermidis. Most likely a contaminant. Follow-up blood culture revealed no growth. Glucose 233. She remains on DuoNeb inhalations, Symbicort, Solu-Medrol. She remains on IV Lasix. Heparin for DVT prophylaxis. Currently in a -1.9 L balance. The patient is seen today December 25, 2024 in follow-up in the intensive care unit. She was transferred down here last evening after having issues with worsening hypoxemia. She is currently on Airvo high flow oxygen at 50 L and 50% FiO2. She is afebrile. Hemodynamically stable. Chest x-ray continues to show cardiomegaly with pulmonary vascular congestion and bilateral pleural effusions. Follow-up blood culture revealed no growth. White count 17.9. Hemoglobin 9.7. Platelets 350. Sodium 137. Potassium 4.8. Bicarb 31. BUN 49. Creatinine 1.16. Glucose 224. She remains on DuoNeb inhalations, Symbicort, Solu-Medrol. Heparin for DVT prophylaxis. She remains on Lasix 40 mg IV every 12 hours. Currently in a -4 L balance. The patient is seen today December 26, 2024 in follow-up in the intensive care unit. She is currently sitting up in bed. Awake and alert in no acute distress. Feeling a bit better today compared to yesterday. She is still high flow oxygen at 50 L and 60% FiO2. No IV fluids. She has been afebrile. Hemodynamically stable. Chest x-ray continues to show diffuse infiltrates bilaterally right greater than left. Follow-up blood culture reveals no growth. White count 19.5. Hemoglobin 10.0. Platelets 359. Sodium 137. Potassium 4.2. Bicarb 33. BUN 54. Creatinine 1.07. Glucose 280. Continued on Lasix 40 mg IV every 12 hours. Currently net -3.3 L balance. She remains on DuoNeb and elations, Symbicort, Solu-Medrol. Robitussin for her cough. The patient is seen today December 28, 2024 in follow-up in the intensive care unit. She is awake and alert in no acute distress. Sitting up in bed. Remains on Airvo high flow oxygen at 50 L and 50% FiO2. No IV fluids. Chest x-ray is showing fluid volume overload but improving. Initial blood culture positive for staph epidermidis. Follow-up blood culture revealed no growth. White count 19.6. Hemoglobin 10.4. Platelets 352. Sodium 134. Potassium 4.0. Bicarb 33. BUN 66. Creatinine 1.12. Glucose 205. She is continued on DuoNeb i nhalations, Symbicort, Solu-Medrol. Heparin for DVT prophylaxis. She remains on Lasix 40 mg IV every 12 hours. Currently in a -700 mL balance. The patient is seen today December 29, 2024 in follow-up in the intensive care unit. She is currently sitting up in bed. Awake and alert in no acute distress. Deny any worsening shortness of breath, cough or congestion. Feeling better. She is now on 8 L high flow nasal cannula. Chest x-ray continues to show improvement. White count 26.0. Hemoglobin 10.7. Platelets 352. Sodium 136. Potassium 4.3. Bicarb 34. BUN 63. Creatinine 1.11. Glucose 185. She remains on DuoNeb inhalations, Symbicort, Solu-Medrol. Heparin for DVT prophylaxis. Continued on Lasix 40 mg every 12 hours. Currently in a -700 mL balance. Progress note dated December 30, 2024. 74-year-old female, who is seen today in room 380. Yesterday, she was in the intensive care unit. She is currently on 9 L high flow nasal O2. She is not receiving any IV fluids. All in all, the patient appears to be doing a bit better. She is certainly moving in the correct direction, albeit very slowly. She still very short of breath with any activity. Current labs include a sodium 136, potassium 4.7, chloride 98, CO2 32, BUN 65, creatinine 1.24. Glucose is 189. Calcium is 9.4. Blood cultures from 092 are positive for Staphylococcus epidermidis. Chest x-ray from yesterday, continues to show improving pulmonary venous congestion. Progress note dated December 31, 2024. 74-year-old female seen today in room 380. Family members in the room. She is currently on 8 L high flow oxygen. Saturations are 93 to 95%. She is not receiving any IV fluids. Clinically, she looks well, despite the fact that she still on 8 liter high flow nasal O2. Laboratory data is reviewed. White count is 27.1, hemoglobin 10.5, hematocrit 32.5, platelet count is normal. Sodium 135, potassium 5, chloride 97, CO2 32, BUN 66, creatinine 1.27. Glucose was 484. Calcium 9.4. The patient is seen today January 08, 2025 in follow-up on the selective care unit. She is currently sitting up in bed. Awake and alert in no acute distress. She had developed extensive subcutaneous emphysema for chest and neck and face. She remains on Airvo high flow oxygen at 50 L and 45% FiO2. Chest x-ray shows similar small bilateral pneumothoraces. Similar pneumomediastinum. Similar diffuse subcutaneous emphysema. Patchy scattered airspace opacity within the lungs suggesting pulmonary edema and/or ARDS. Follow-up blood culture revealed no growth. White count 16.7. Hemoglobin 10.5. Platelets 165. Sodium 134. Potassium 4.6. Bicarb 25. BUN 36. Creatinine 0.77. Glucose 134. She remains on DuoNeb inhalations, Symbicort, Solu-Medrol. Heparin for DVT prophylaxis. Remains on diuretics. Remains on cefepime. The patient is seen today January 09, 2025 in follow-up on the selective care unit. She is awake and alert in no acute distress. Sitting up in bed. Her subcutaneous emphysema is worsening. Her eyes are swollen shut now. CT services are planning to place blow holes today. She remains on Airvo high flow oxygen at 50 L and 45% FiO2. Chest x-ray continues to show similar small bila teral pneumothoraces. Similar pneumomediastinum. Similar diffuse subcutaneous emphysema. Patchy scattered airspace opacities within the lung suggesting pulmonary edema and/or ARDS. Follow-up blood culture revealed no growth. White count 17.3. Hemoglobin 10.7. Platelets 160. Sodium 135. Potassium 4.5. Bicarb 23. BUN 39. Creatinine 0.78. Glucose 193. She remains on DuoNeb and elations, Symbicort, Solu-Medrol. Heparin for DVT prophylaxis. Remains on oral diuretics. Remains on cefepime and Diflucan. The patient is seen today January 10, 2025 in follow-up on the selective care unit. She is currently sitting up in bed. Awake and alert in no acute distress. Doing better today compared to yesterday. She did have two blow hole's placed. Her subcutaneous emphysema has improved. She is able to open her eyes. No worsening shortness of breath, cough or congestion. Continued on Airvo high flow oxygen at 50 L and 44% FiO2. She remains on DuoNeb inhalations, Symbicort, IV Solu-Medrol. Heparin for DVT prophylaxis. Remains on oral diuretics. Remains on cefepime. Chest x-ray shows similar small bilateral pneumothoraces. Similar pneumomediastinum. Similar diffuse subcutaneous emphysema. Patchy scattered airspace opacities bilaterally. White count 16.3. Hemoglobin 10.9. Platelets 142. Sodium 133. Potassium 5.2. Bicarb 24. BUN 40. Creatinine 0.65. Glucose 140. The patient is seen today January 11, 2025 in follow-up on the selective care unit. She is currently awake and alert in no acute distress. Sitting up in bed. Still showing improvement in the subcutaneous emphysema. She is maintaining O2 saturations in the 90s on Airvo high flow oxygen at 50 L and 55% FiO2. She has been afebrile. Hemodynamically stable. Chest x-ray continues to show similar small bilateral pneumothoraces with similar pneumomediastinum. Similar diffuse subcutaneous emphysema. Patchy scattered airspace opacities continue. Initial blood culture showing Staphylococcus epidermidis. Follow-up blood cultures x 2 revealed no growth. White count 15.7. Hemoglobin 10.2. Platelets 121. Sodium 130. Potassium 5.2. Bicarb 23. BUN 45. Creatinine 0.75. Glucose 324. She remains on DuoNeb inhalations, Symbicort, Solu-Medrol. Heparin for DVT prophylaxis. Remains on cefepime. Remains on diuretics. The patient is seen today January 12, 2025 in follow-up on the selective care unit. She is currently sitting up in bed. Awake and alert in no acute distress. Feeling better today compared to yesterday. She has less subcutaneous emphysema. Denies any worsening shortness of breath, cough or congestion. She remains on Airvo high flow oxygen at 50 L and 50% FiO2. She is continued on DuoNeb inhalations, Symbicort, Solu-Medrol. Remains on oral diuretics. Remains on cefepime. Remains on Diflucan. Heparin for DVT prophylaxis. Follow-up blood cultures revealed no growth. White count 14.4. Hemoglobin 10.1. Platelets 110. Sodium 130. Potassium 5.3. Bicarb 26. BUN 41. Creatinine 0.69. Glucose 145. Today's chest x-ray is showing similar small bilateral pneu mothoraces. Similar pneumomediastinum. Similar diffuse subcutaneous emphysema. Some improvement in the patchy scattered airspace opacities. The patient is seen today January 13, 2025 in follow-up on the selective care unit. She is awake and alert in no acute distress. Her subcutaneous emphysema appears worse today with her left eye swollen shut. New blow holes placed with #[address] services. She remains on Airvo high flow oxygen at 50 L and 50% FiO2 with O2 saturation at 95%. She has been afebrile. Hemodynamically stable. Chest x-ray continues to show small bilateral pneumothoraces. Similar pneumomediastinum. Diffuse subcutaneous emphysema. Patchy airspace opacities. Blood culture reveals no growth. White count 16.8. Hemoglobin 9.7. Platelets 122. Sodium 133. Potassium 4.8. BUN 44. Creatinine 0.82. Glucose 177. The patient is seen today January 14, 2025 in follow-up on the selective care unit. She is currently sitting up in bed. Awake and alert in no acute distress. Her subcutaneous emphysema is improved today compared to yesterday. Both of her eyes are open. She denies any worsening shortness of breath, cough or congestion. She is still requiring Airvo high flow oxygen at 50 L and 55% FiO2 to maintain O2 saturations in the 90s. Blood cultures revealed no growth. White count 10.9. Hemoglobin 9.8. Platelets 85,000. Sodium 132. Potassium 4. 6. Bicarb 26. BUN 43. Creatinine 0.8. Glucose 106. AST 30. ALT 60. Chest x-ray shows small bilateral pneumothoraces right greater than left. Pneumomediastinum. Diffuse subcutaneous emphysema. Patchy scattered airspace opacities. She is continued on DuoNeb inhalations, Symbicort, Solu-Medrol. Heparin for DVT prophylaxis. Remains on oral diuretics. Remains on cefepime. The patient is seen today January 15, 2025 in follow-up on the selective care unit. She is currently sitting up in bed. Awake and alert in no acute distress. She remains on Airvo high flow oxygen at 50 L and 55% FiO2 with O2 saturations in the 90s. Follow-up chest x-ray continues to show similar right pneumothorax with previously seen left pneumothorax not well-visualized. Similar pneumomediastinum. Slightly decreased diffuse subcutaneous emphysema. Continued patchy airspace opacities concerning for ARDS. Blood cultures revealed no growth. White count 8.8. Hemoglobin 9.9. Platelets 80,000. Sodium 133. Potassium 4.5. Bicarb 27. BUN 41. Creatinine 0.76. Glucose 106. She remains on DuoNeb inhalations, Symbicort, Solu-Medrol. Completed cefepime. Heparin for DVT prophylaxis. Remains on oral diuretics. The patient is seen today January 16, 2025 in follow-up on the selective care unit. She has awake and alert in no acute distress. Sitting up in bed. Denies any worsening shortness of breath, cough or congestion. She has been up been very slow to progress. She is requiring Airvo high flow oxygen now at 40 L and 45% FiO2. She has been afebrile. Hemodynamically stable. Less subcutaneous emphysema noted. Below holes remain in place. Chest x-ray reveals similar small right pneumothorax. Unchanged pneumomediastinum. Diffuse subcutaneous emphysema. Unchanged patchy scattered airspace disease. Follow-up blood cultures revealed no growth. White count 6.3. Hemoglobin 9.9. Platelets 87,000. Sodium 134. Potassium 4.6. Bicarb 31. BUN 33. Creatinine 0.75. Glucose 133. She remains on DuoNeb inhalations, Symbicort IV Solu-Medrol. Heparin for DVT prophylaxis. Remains on oral diuretics. The patient is seen today January 17, 2025 in follow-up on the selective care unit. She is sitting up in bed. Awake and alert in no acute distress. Looking better as far as the subcutaneous emphysema is concerned. Blow holes/angiocaths were removed. She remains on Airvo high flow oxygen at 35 L and 45% FiO2. She has been afebrile. Hemodynamically stable. Chest x-ray remains unchanged with a small right pneumothorax, pneumomediastinum and diffuse subcutaneous emphysema. Patchy scattered airspace opacities remain. Blood culture reveals no growth. Glucose 258. She remains on DuoNeb and elations, Symbicort, Solu-Medrol. Remains on oral diuretics. Heparin for DVT prophylaxis. Robitussin for her cough. Progress note dated January 18, 2025. 74-year-old female seen again in room 380. She continues on Airvo, at 35 L/min, with an FiO2 of 45%. She is not receiving any IV fluids. The patient is scheduled to be discharged to [facility] today. Clinically, the patient is doing about the same. Labs include a white count of 7.2, hemoglobin 10.8, hematocrit 32.7, and a platelet count of 107,000. Sodium 131, potassium 4.5, chloride 100, CO2 25, BUN 32, creatinine 0.69. Glucose is 178. Calcium 9.7, magnesium 2.0. Blood cultures from December 18, were positive for Staphylococcus epidermidis. Chest x-ray from today shows an unchanged small right pneumothorax, with pneumomediastinum, and diffuse subcutaneous emphysema. Patchy opacities are noted bilaterally. The chest x-ray is largely unchanged. Objective - Vital Signs Vital signs: Vital Signs Temp 97.6 F 01/17/25 19:33 Pulse 72 01/18/25 08:28 Resp 24 01/18/25 08:28 BP 111/65 01/18/25 03:14 Pulse Ox 95 01/18/25 08:18 FiO2 45 01/18/25 08:18 Intake & Output 01/17/25 01/18/25 01/18/25 18:59 06:59 18:59 Intake Total 118 120 Output Total 350 200 Balance -232 -200 120 Weight 63.5 kg Intake: Oral 118 120 Output: Urine 350 200 Other: Voiding Method Diaper Bedpan Incontinent Diaper External Catheter Incontinent External Catheter # Bowel Movements 1 - Exam No acute distress, oriented 3. Currently on Airvo. No conversational dyspnea. HEENT examination is grossly unremarkable. Mucous membranes are moist. No oral lesions. Facial subcutaneous emphysema. Neck supple. Full range of motion. No adenopathy thyromegaly or neck vein distention. Cardiovascular examination reveals regular rhythm rate. S1-S2 normal. No S3 or S4. No discernible murmur noted. Heart sounds are distant. Subcutaneous emphysema noted throughout the upper chest areas. Lungs reveal minimal scattered rhonchi. No wheezes. No crackles. Breath sounds equal. Saturations are mid 90s. Abdomen soft bowel sounds are heard. No masses or tenderness. Extremities are intact. No cyanosis clubbing or edema. Skin is without rash or lesion. Neurologic examination is brief but nonfocal. - Labs CBC & Chem 7: 01/18/25 05:10 01/18/25 05:10 Labs: Abnormal Lab Results - Last 24 Hours (Table) 01/17/25 01/17/25 01/18/25 Range/Units 11:27 20:04 02:35 RBC (4.10-5.20) 10*6/uL Hgb (12.0-15.0) g/dL Hct (37.2-46.3) % Plt Count (140-440) 10*3/uL Immature Gran # (0.00-0.04) 10*3/uL Lymphocytes # (0.90-5.00) 10*3/uL Eosinophils # (0.04-0.35) 10*3/uL Sodium (137-145) mmol/L BUN (7-17) mg/dL POC Glucose (mg/dL) 258 H 129 H 162 H (70-110) mg/dL 01/18/25 01/18/25 01/18/25 Range/Units 05:10 05:10 09:23 RBC 3.56 L (4.10-5.20) 10*6/uL Hgb 10.8 L (12.0-15.0) g/dL Hct 32.7 L (37.2-46.3) % Plt Count 107 L (140-440) 10*3/uL Immature Gran # 0.07 H (0.00-0.04) 10*3/uL Lymphocytes # 0.87 L (0.90-5.00) 10*3/uL Eosinophils # 0.43 H (0.04-0.35) 10*3/uL Sodium 131 L (137-145) mmol/L BUN 32 H (7-17) mg/dL POC Glucose (mg/dL) 178 H (70-110) mg/dL Assessment and Plan Assessment: Acute, but improving, hypoxemic respiratory failure, most likely on the basis of fluid overload/acute lung injury. Small pneumothoraces, with pneumomediastinum and subcutaneous emphysema. Acute asthma exacerbation. Acute hypoxemic respiratory failure, improved. Acute febrile illness, recovered. Acute leukocytosis. History of right direct anterior total hip arthroplasty on November 24. Acute blood loss anemia. Hypertension. History of hyperlipidemia. Insulin-dependent diabetes mellitus. Obesity with a BMI of 35.4 kg/m. Coronary artery disease, with history of CABG and cardiac stents. History of ischemic cardiomyopathy with an ejection fraction improved to 40 to 45%. Implanted AICD/pacemaker. Hypothyroidism. Anxiety/depression. Plan: Plan dated December 30, 2024. The patient is seen today in room 380. Yesterday, she was in the intensive care unit. She was moved out of the ICU, because her oxygenation, and overall clinical status has been improving, albeit very slowly. She is not receiving any IV fluids. Labs, x-rays, medications are reviewed. Currently, she is on 9 L high flow nasal O2. We will continue to follow the patient, make recommendations along the way. The patient continues on appropriate medications including updrafts, and Lasix. Dictation was produced using [employer] software. Please excuse any grammatical, word or spelling errors. Plan dated December 31, 2024. The patient is encouraged to sit up in bed, or sit in the chair next to the bed. Currently he continues on a liter high flow oxygen. Saturations are 93 to 95%. Labs, x-rays, medications are reviewed. She is not receiving any IV fluids. Clinically, she is improved. She does understand that she is not can be able to go home with this much oxygen, and needs to improve before discharge. We encourage deep breathing, coughing, clearing of secretions, and better positioning in bed, or, sitting in the chair. Dictation was produced using [employer] software. Please excuse any grammatical, word or spelling errors. Plan dated January 18, 2025. The patient has been stable for the last number of days. The patient is currently on Airvo, with settings of 35 L/min, and FiO2 45%. The patient is not receiving any IV fluids. Labs, x-rays, medications are reviewed. The patient still has subcutaneous emphysema. It is improved. Cardiothoracic surgery has signed off. Labs, x-rays, and all medications have been reviewed. From our perspective, the patient could be discharged to long-term acute care/[facility]. Prognosis is guarded. Dictation was produced using [employer] software. [phone] any grammatical, word or spelling errors. Time with Patient: Less than 30
[2025-01-18 11:23] LABS: Glucose,Whole Blood 188 mg/dL (70-110)
[2025-01-18 11:36] VITALS: RESP 22
[2025-01-18 12:23] VITALS: PULSE 68; TEMP 97.5
[2025-01-18 13:44] VITALS: BP 98/61
== END 2025-01-18 13:45 | DRG 193 ==
LOC: EC 16:59 → 4SSUR 19:43 → 2SICU 12-24 20:34 → 3SCARD 12-29 16:14
PROVIDERS: ADMIT Hospitalist; ATTEND Hospitalist
DX: J18.9 Pneumonia, unspecified organism (principal); I50.23 Acute on chronic systolic (congestive) heart failure; J80 Acute respiratory distress syndrome; L89.312 Pressure ulcer of right buttock, stage 2; R78.81 Bacteremia; B37.0 Candidal stomatitis; L89.322 Pressure ulcer of left buttock, stage 2; J45.901 Unspecified asthma with (acute) exacerbation; I11.0 Hypertensive heart disease with heart failure; E11.65 Type 2 diabetes mellitus with hyperglycemia; E66.9 Obesity, unspecified; F32.A Depression, unspecified; E03.9 Hypothyroidism, unspecified; J93.83 Other pneumothorax; D62 Acute posthemorrhagic anemia; N17.9 Acute kidney failure, unspecified; L89.892 Pressure ulcer of other site, stage 2; Z79.4 Long term (current) use of insulin; J98.2 Interstitial emphysema; E86.0 Dehydration; I25.5 Ischemic cardiomyopathy; I25.10 Atherosclerotic heart disease of native coronary artery without angina pectoris; E78.5 Hyperlipidemia, unspecified; M19.90 Unspecified osteoarthritis, unspecified site; F41.9 Anxiety disorder, unspecified; E87.5 Hyperkalemia; K59.00 Constipation, unspecified; K64.9 Unspecified hemorrhoids; R13.10 Dysphagia, unspecified; T38.0X5A Adverse effect of glucocorticoids and synthetic analogues, initial encounter; R29.6 Repeated falls; W01.0XXA Fall on same level from slipping, tripping and stumbling without subsequent striking against object, initial encounter; Z68.35 Body mass index [BMI] 35.0-35.9, adult; Z95.1 Presence of aortocoronary bypass graft; I25.2 Old myocardial infarction; Z95.5 Presence of coronary angioplasty implant and graft; Z79.51 Long term (current) use of inhaled steroids; Z79.890 Hormone replacement therapy; Z79.84 Long term (current) use of oral hypoglycemic drugs; Z79.82 Long term (current) use of aspirin; Z79.02 Long term (current) use of antithrombotics/antiplatelets; Z74.01 Bed confinement status; Z82.49 Family history of ischemic heart disease and other diseases of the circulatory system; Z96.41 Presence of insulin pump (external) (internal); Z91.81 History of falling; Y92.009 Unspecified place in unspecified non-institutional (private) residence as the place of occurrence of the external cause; Z79.899 Other long term (current) drug therapy; Y95 Nosocomial condition; Z95.810 Presence of automatic (implantable) cardiac defibrillator; Z96.641 Presence of right artificial hip joint
CPT/HCPCS: 36415; 36600; 51701; 71045; 71046; 71250; 71260; 73502; 80048; 80053; 81003; 82805; 83605; 83735; 83880; 84100; 84145; 84443; 84484; 85025; 85027; 85610; 85730; 87040; 87077; 87186; 87449; 87636; 93005; 93306; 94640; 94760; 96361; 96365; 99291